=== PATIENT | male | born 1955 | race Caucasian/White ===

== ENCOUNTER → 2023-08-02 | Outpatient (CLI) | payer MEDICARE, SELFPAY ==
--- NOTE | 2023-08-02 15:25 | RAD_ITS ---
STUDY: X-RAY - CERVICAL SPINE REASON FOR EXAM: Male, 68 years old. Pain. TECHNIQUE: 3 view(s) of the cervical spine were obtained on 4 images. COMPARISON: None FINDINGS: Osteopenia. Normal anterior atlantoaxial articulation. Normal odontoid process. Reversal of the normal lordotic curve, likely positional. Diffuse moderate to marked uncovertebral and facet sclerosis. Intervertebral disc space narrowing at C4-5, C5-6, C6-7 and C7-T1. Osteophyte formation most marked at C4-5, C5-6 and C6-7. Bilateral minimal carotid calcification. Ossification of the superficial tissues of the ligamentum nuchae. RAD/Cerv Spine 2 or 3 Views IMPRESSION: Osteopenia with moderate to marked lower cervical spondylosis. Electronically Signed: Ilia Oswald MD at 12:38 EDT ,
--- NOTE | 2023-08-02 15:25 | RAD_ITS ---
STUDY: X-RAY - LUMBAR SPINE REASON FOR EXAM: Male, 68 years old. Low back pain. TECHNIQUE: 2 upright view(s) of the lumbar spine were obtained. COMPARISON: None FINDINGS: Osteopenia. Normal lumbar lordosis. No substantial scoliosis. Normal vertebral alignment. Diffuse moderate lower thoracic and lumbosacral facet sclerosis. Posterior fusion at L2-3 with intervertebral disc prosthesis and no complications. Diffuse moderate to marked intervertebral disc space narrowing with osteophyte formation. Marked vascular calcification. RAD/Lumbar Spine 2 or 3 Views IMPRESSION: Osteopenia with uncomplicated postfusion at L2-3 and diffuse moderate to marked lower thoracic and lumbosacral spondylosis. Electronically Signed: Ilia Oswald MD at 12:06 EDT ,
== END | disposition home or self-care (01) ==
PROVIDERS: Referring Provider Anesthesiology Pain Medicine; Visit Provider Anesthesiology Pain Medicine
DX: M96.1 Postlaminectomy syndrome, not elsewhere classified (principal); M47.892 Other spondylosis, cervical region
CPT/HCPCS: 72040; 72100

== ENCOUNTER 2024-01-19 12:54 | Observation (INO) | payer MEDICARE, SELFPAY ==
[2024-01-19] VITALS (9 sets, daily range): BP systolic 119–159; BP diastolic 85–101; PULSE 54–85; RESP 17–20; TEMP 36.2–36.9; O2SAT 92–99; BMI 30.4; BMI 29.7
--- NOTE | 2024-01-19 13:22 | RAD_ITS ---
STUDY: X-RAY CHEST REASON FOR EXAM: Male, 68 years old. Neuro deficit, acute, stroke suspected TECHNIQUE: Single AP portable view of the chest. COMPARISON: None. FINDINGS: EKG electrodes are seen. The lungs are clear and expanded. There is no demonstrated pleural abnormality. Sternal cerclage wires are present from a prior sternotomy. Normal mediastinum and klaia. Normal visualized pulmonary arteries. There is atherosclerotic calcification of the aortic arch with tortuosity. There are diffuse degenerative changes of the visualized thoracic spine. Normal visualized ribs, clavicles, and shoulders. There is no demonstrated abnormality of the visualized soft tissue structures of the upper abdomen. RAD/Chest 1 View IMPRESSION: No acute abnormalities. Electronically Signed: Piyush Flower MD at 14:02 EDT ,
--- NOTE | 2024-01-19 13:22 | CT_ITS ---
STUDY: CTA HEAD AND NECK WITH CONTRAST REASON FOR EXAM: Male, 68 years old. Neuro deficit, acute, stroke suspected. RADIATION DOSAGE (If Supplied By Facility): CTDIvol = ( 32.97 ) mGy, DLP = ( 1688.96 ) mGycm TECHNIQUE: CT angiography was performed with a multi-detector CT scanner. Data acquisition was obtained from the skull base through the vertex following intravenous administration of IV 100mL Isovue-370. MIP images were reconstructed from the axial data set. Post-processing of the angiographic images was performed, with multiplanar reformation and 3D reconstruction. Individualized dose optimization techniques were used for this CT. COMPARISON: No relevant priors. FINDINGS: Normal bilateral petrous carotid arteries. There is calcified plaque formation of the right cavernous carotid artery, with a mild stenosis (less than 50%). There is calcified plaque formation of the left cavernous carotid artery, with a mild stenosis (less than 50%). Normal right A1 segments of the anterior cerebral artery. Normal left A1 segments of the anterior cerebral artery. Normal intact anterior communicating artery (ACOM). Normal bilateral A2 segments of the anterior cerebral arteries. Normal right M1 and M2 segments of the middle cerebral arteries, with a normal M1 bifurcation. Normal left M1 and M2 segments of the middle cerebral arteries, with a normal M1 bifurcation. Normal right posterior communicating artery (PCOM). Normal left posterior communicating artery (PCOM). Normal bilateral vertebral arteries. Normal basilar artery with a normal basilar bifurcation. The visualized bilateral superior cerebellar (SCA) arteries are normal. Normal bilateral P1, P2 and visualized P3 segments of the posterior cerebral arteries. There is no demonstrated aneurysm of the elim ira of [place]. Mild degree of cerebral atrophy. Mild degree of decreased density in periventricular white matter bilaterally suggestive of small vessel disease. AORTIC ARCH: There is atherosclerotic calcific plaque formation of the aortic arch and great vessels arising from the aortic arch, without a hemodynamically significant stenosis. There is a normal origin of the brachiocephalic, left common carotid, and left subclavian arteries. Atherosclerotic plaque formation at the origin of the left subclavian artery and left carotid artery. RIGHT CAROTID ARTERIES: Normal right common carotid artery (CCA). Normal right common carotid bulb. There is mild atherosclerotic plaque formation of the origin of the right internal carotid artery with less than 50% cross sectional diameter stenosis. Normal visualized cervical portion of the right internal carotid artery. Normal origin of the right external carotid artery (ECA). LEFT CAROTID ARTERIES: Normal left common carotid artery (CCA). There is moderate atherosclerotic plaque formation with moderate narrowing of the carotid bulb. There is severe atherosclerotic plaque formation of the origin of the left internal carotid artery with a near complete occlusion. Normal visualized cervical portion of the left internal carotid artery. Normal origin of the left external carotid artery (ECA). VERTEBRAL ARTERIES: Nonstenotic calcified plaques throughout the left vertebral artery. CT/CTA Head AND Neck W/ Contrast IMPRESSION: High-grade stenosis at the origin of the left internal carotid artery. Less than 50% narrowing at the origin of the right internal carotid artery. Electronically Signed: Piyush Flower MD at 14:56 EDT ,
--- NOTE | 2024-01-19 13:22 | EKG12_ITS ---
Test Reason : Blood Pressure : / mmHG Vent. Rate : 070 BPM Atrial Rate : 070 BPM P-R Int : 178 ms QRS Dur : 084 ms QT Int : 374 ms P-R-T Axes : 047 033 061 degrees QTc Int : 403 ms Normal sinus rhythm Nonspecific T wave abnormality Abnormal ECG Confirmed by VINH CARPIO, ARIADNA ([id number]), associate editor ERIK KENNEDY ([id number]) on 01/20/2024 1:49:48 PM Referred By: Confirmed By:ARIADNA JUSTICE MD
--- NOTE | 2024-01-19 13:23 | EX.ED.DYSGE1 ---
HPI History of Present Illness Chief Complaint: Dizziness Informant: patient Onset/Context/Timing Onset: Days Context: Gradual Onset Timing: Intermittent Current Severity: Mild Maximum Severity: Mild Narrative Narrative: 68-year-old male history of prior low potassium and vertigo. Denies stroke or mini stroke. States that dizziness which she describes as lightheadedness, off balance at times room spinning intermittently since Wednesday. Worse with movement. Denies any headache. Mild nausea no vomiting or diarrhea. No fever. Also states the last couple weeks he has felt more short of breath than his baseline. Denies any current chest pain but at times he does have chest tightness. Prior similar symptoms: Yes Recent Illness/Hospitalization: No PFSH PFSH Medical History Hypertension Neuropathy Vertigo Coronary atherosclerosis of bypass graft Home Medications ?Medication ?Instructions ?Recorded ?Last Taken ?Type gabapentin 800 mg tablet 800 mg PO TID 01/19/24 Unknown History hydrocodone 7.5 mg-acetaminophen 1 tab PO TID PRN PRN pain 01/19/24 Unknown History 325 mg tablet Allergy/AdvReac Type Severity Reaction Status Date / Time No Known Allergies Allergy Verified 01/19/24 13:18 Social History Smoking Status: Current every day smoker tobacco type: cigarettes ROS ROS ED ROS Narrative Denies recent illness. Constitutional Constitutional ED: Denies chills or fever(s) Eyes Eyes: Denies blurry vision ENT ENT ED: Denies ear pain Cardiovascular Cardiovascular: Reports chest pain; Denies palpitations or racing heartbeat Respiratory/Chest Respiratory/Chest: Reports dyspnea and dyspnea on exertion; Denies cough Gastrointestinal Gastrointestinal: Denies abdominal pain or constipation Genitourinary Genitourinary ED: Denies dysuria or hematuria Musculoskeletal Musculoskeletal: Denies arthralgias Integumentary Denies abscess Neurologic Neurologic: Denies headache(s) Psychiatric Psychiatric: Denies anxiety Endocrine Endocrinology: Denies cold intolerance Hematologic/Lymphatic Hematologic/Lymphatic: Reports none Allergic/Immunologic Allergic/Immunologic ED: Denies mouth swelling, tongue swelling or urticaria EXAM Physical Exam Narrative Exam Narrative: Well-appearing 64-year-old male. Vital signs stable afebrile. He does not look septic toxic or in any distress. Pulse ox 95% on room air no hypoxia. H EENT exam unremarkable. TMs normal bilaterally. No wax. No facial droop. Normal speech. Tongue midline. Neck nontender. No JVD. Lungs clear to auscultation bilaterally. Heart regular rhythm rate about 85 no murmur. Chest wall and ribs nontender. Abdomen soft nontender. Moving all 4 extremities. 5 out of 5 choir member strength. Dorsi plantarflexion intact. Hallpike may be slightly increased dizziness. No facial droop. Fingertip to nose within normal limits. Back nontender. NIH score is 0. Const Vital Signs: 01/19/24 12:55 01/19/24 13:22 01/19/24 13:22 Temperature 97.1 F L Temperature Source Temporal Pulse Rate 85 71 Respiratory Rate 17 20 H Blood Pressure 128/90 H 127/94 H Blood Pressure Mean 102 105 Pulse Ox 95 94 94 Oxygen Delivery Method Room Air Room Air Room Air 01/19/24 13:52 01/19/24 14:54 Temperature Temperature Source Pulse Rate 66 60 Respiratory Rate 20 H 18 Blood Pressure 119/90 H 136/92 H Blood Pressure Mean 99 106 Pulse Ox 96 96 Oxygen Delivery Method Room Air Room Air Positive well nourished and well developed; Negative for obese, cachectic, contractures or unkempt General Appearance ED: well developed and NAD; Negative for unkempt, cachectic, contractures, diaphoretic or pallor Nutritional Appearance: Negative for cachectic or obese HEENT Reports moist mucous membranes; Denies dry mucous membranes Negative for trauma or tenderness Mouth ED: No dry mucous membranes Mouth: No dry mucous membranes Eyes PERRL and EOMs intact bilaterally General Eye ED: Negative for pale conjunctiva or scleral icterus Neck no lymphadenopathy, supple and no JVD General: Negative for tenderness Lymph Lymphatic: Negative for other Chest Wall inspection of chest normal and palpation of chest normal Resp normal respiratory effort and clear to auscultation bilaterally Effort and Inspection: Negative for retractions Auscultation: Negative for rales, rhonchi, wheezes or diminished lung sounds Cardio regular rate, regular rhythm, S1 normal heart sound, S2 normal heart sound and no murmurs Palpation: Negative for palpable S3 or palpable S4 Rate: Negative for bradycardia or tachycardic Rhythm: Negative for abnormal rhythm GI normal to inspection, nondistended, normoactive bowel sounds, non-tender, non-distended and no masses Inspection: Negative for abdominal distention Palpation: soft; Negative for tender, guarding, mass or rebound tenderness present Back/Spine no CVA tenderness General Back: Negative for CVA tenderness Cervical Spine: Negative for cervical spine tenderness Thoracic Spine / Upper Back: Negative for thoracic spinal tenderness or paraspinal muscle tenderness Lumbar Spine / Lower Back: Negative for lumbar spinal tenderness Extremity normal to inspection General Extremety ED: Negative for edema, tenderness or other findings General Extremity: Negative for edema or other findings Neuro oriented x3 and CN's II-XII intact bilaterally Neuro Narrative: NIH score is 0. Hallpike may be slightly increased dizziness. No nystagmus. Sensorium / Orientation: alert; Negative for orientation impaired, lethargic or stuporous Motor Exam: strength 5/5 throughout Psych mental status grossly normal Appearance: Negative for unkempt Attitude: No agitated Mood & Affect: Negative for depressed, anxious or tearful Skin no rashes or lesions noted, no wounds and skin turgor normal General Skin Exam: elasticity normal; Negative for jaundice or pallor Lesions: No lesion noted Rashes: No rashes noted Trauma: Negative for abrasion Wounds: Negative for wounds noted MDM MDM MDM Narrative Medical decision making narrative: Patient states he has been having dizziness for 4 days he describes it as off-balance, lightheaded and at times room spinning. He has a normal neurologic exam. He is also had some recent exertional dyspnea and chest tightness. He will undergo a neurologic and stroke workup. Repeat exam unchanged. Given the patient's history and his dizziness that I really not sure if it is neurologic or not. He does not really have a impressive exam for vertigo. He has a high-grade left carotid stenosis on CTA which I discussed with the radiologist. I will speak to the hospitalist about admission and further evaluation. History & Record Review Discussion w/independent historian: Patient Lab Data Attestation: I reviewed the patient's lab results. Lab results narrative: CBC normal. White count 7. H&H 16 and 46. Platelets 241. PT, INR and PTT are normal at 13, 1 and 28. Electrolytes show gap of 2. Normal BUN of 16 and creatinine of 1.1. Glucose 105. Troponin 7. Chest x-ray chronic changes. EKG sinus rhythm of 70. Labs: Laboratory Results - last 24 hr 01/19/24 01/19/24 13:36 13:40 WBC 7.1 RBC 5.07 Hgb 16.3 Hct 46.7 MCV 92.1 MCH 32.1 H MCHC 34.9 RDW Std Deviation 44.4 H RDW Coeff of [place] 13.2 Plt Count 241 MPV 10.8 Immature Gran % (Auto) 0.400 Neut % (Auto) 62.5 Lymph % (Auto) 27.0 [place] % (Auto) 6.4 Eos % (Auto) 3.3 Baso % (Auto) 0.4 Absolute Neuts (auto) 4.4 Absolute Lymphs (auto) 1.91 Nucleated RBC % 0 PT 13.2 INR 1.0 APTT 28.2 Sodium 141 Potassium 3.8 Chloride 109 H Carbon Dioxide 30.0 Anion Gap 2 L BUN 16 Creatinine 1.13 Estim Creat Clear Calc 79.38 Est GFR (MDRD) Af Amer 83 Est GFR (MDRD) Non-Af 69 BUN/Creatinine Ratio 14.2 Glucose 105 Calcium 9.4 Troponin I High Sens 7 POC Glucose 111 H Radiography Chest X-Ray - ED: 1 View, Read by ED Physician, Read by Radiologist, Normal, Heart, Lungs, Mediastinum, Bony Structures, No Acute Disease and Chronic Changes Diagnostic Testing: Clinical Impression(s) from Imaging Studies Chest X-Ray 01/19/24 13:22 IMPRESSION: No acute abnormalities. Electronically Signed: Piyush Flower MD at 14:02 EDT , Head/Neck CTA 01/19/24 13:22 IMPRESSION: High-grade stenosis at the origin of the left internal carotid artery. Less than 50% narrowing at the origin of the right internal carotid artery. Electronically Signed: Piyush Flower MD at 14:56 EDT , Chest x-ray, portable, single view interpreted both by myself and the radiologist shows no acute abnormality. Normal cardiac silhouette. Rhythm Strip Rhythm Strip: Sinus Rhythm Rate: 70 Ectopy: None EKG Initial EKG: Attestation: I personally reviewed and interpreted this EKG as follows: Interpretation: Sinus Rhythm and No Acute Injury Pattern Comments: Normal sinus rhythm rate of 70 no acute signs of [place], ischemia or dysrhythmia. Discharge Plan Triage Chief Complaint: Dizziness ED Provider: Darren Bahena Dx/Rx/DC Orders Clinical Impression: Dizziness, Carotid arterial disease, History of coronary artery bypass graft x 2 Prescriptions: No Action gabapentin 800 mg tablet 800 mg PO TID hydrocodone-acetaminophen 7.5-325 mg tablet 1 tab PO TID PRN PRN (Reason: pain) Primary Care Provider: RICK CARBALLO Referrals: RICK CARBALLO [Other] Print Language: Thai Disposition Disposition: Acute Care Hospital [facility]
[2024-01-19 13:59] LABS: Bedside Glucose 111 mg/dL (74-106)
[2024-01-19 14:10] LABS: Absolute Lymphocyte Count 1.91 X10^3/uL (0.83-4.51); Absolute Neutrophil Count 4.4 X10^3/uL (2.0-7.7); Basophil# 0.03 X10^3/uL; Basophil% 0.4 % (0-1); Eosinophil# 0.23 X10^3/uL; Eosinophils% 3.3 % (0-5); Hematocrit 46.7 % (40-54); Hemoglobin 16.3 g/dL (13.0-16.5); Lymphocyte # 1.91 X10^3/ul (0.83-4.51); Mean Corp Hgb Conc 34.9 g/dL (32-36); Mean Corpuscular Hgb 32.1 pg (27.0-32.0); Mean Corpuscular Volume 92.1 fL (80-94); Mean Platelet Vol. 10.8 fl (6.2-12.0); Monocyte# 0.45 X10^3/uL; Monocyte% 6.4 % (0-10); NRBC Flagged by Analyzer 0 % (0-5); Neutrophil # 4.42 X10^3/uL (2.7-7.7); Neutrophil % 62.5 % (47-70); Platelet Count 241 K/mm3 (150-450); RBC Distribution Width CV 13.2 % (11.6-14.6); RBC Distribution Width SD 44.4 fl (35.1-43.9); Red Blood Count 5.07 M/mm3 (4.6-6.2); White Blood Count 7.1 K/mm3 (4.4-11.0)
[2024-01-19 14:17] LABS: Anion Gap 2 (5-15); BUN 16 mg/dL (7-18); BUN/Creat Ratio 14.2 RATIO (10-20); Calcium,Total 9.4 mg/dL (8.5-10.1); Chloride 109 mmol/L (98-107); Creatinine, Serum 1.13 mg/dL (0.70-1.30); EST Glomerular Filtration Rate 69 mL/min (>60); Est Glom Filt Rate - Afr Amer 83 mL/min (>60); Estimated Creatinine Clearance 79.38 ml/min; Glucose 105 mg/dL (74-106); Potassium 3.8 mmol/L (3.5-5.1); Sodium Level 141 mmol/L (136-145); Troponin-I HS 7 pg/mL (3.0-78.0)
[2024-01-19 14:26] LABS: Prothrombin Time (Protime)PT. 13.2 SECONDS (11.7-14.9)
[2024-01-19 14:27] LABS: Partial Thromboplast Time 28.2 Seconds (24.1-36.2)
[2024-01-19] MEDS: HYDROcodone Bitartrate/Apap 5/325 Tablet PO (14:55)
[2024-01-19] MEDS: Gabapentin 800 MG Tablet PO ×2 (14:56→21:01)
--- NOTE | 2024-01-19 15:15 | HP.PCM.HOS_ITS ---
HPI - General General Date of Admission: 01/19/24 Date of Service: 01/19/24 Chief Complaint: dizziness HPI Narrative MARYSE MAK, is a 68 M with a PMH as outlined who presents via the ED on 01/19/2024 with a complaint of dizziness which had been going on for about 3 days prior to admission. The dizziness was worsening, and he felt off balance and worsened with movement. He denied any headache, ringing in ears, blurred vision, palpitations, nausea or vomiting. He denied any focal weakness or numbness or tingling. Review of systems otherwise negative. Vitals in the ED were blood pressure 136/92, pulse rate of 60, respiratory rate of 18 and oxygen saturation of 96% on room air. CBC was unremarkable. INR was 1. Chemistry was also largely unremarkable. Chest x-ray showed no acute cardiopulmonary pathology. CT of the brain showed no acute intracranial pathology and CTA of the head and neck showed severe atherosclerotic plaque formation at the origin of the left internal carotid artery with near complete occlusion and less than 50% stable at the origin of the right internal carotid artery. He is being admitted to be managed for dizziness and vertigo in the setting of severe carotid stenosis, to rule out a stroke. [facility] Medical History Hypertension Neuropathy Vertigo Coronary atherosclerosis of bypass graft Home Medications ?Medication ?Instructions ?Recorded ?Last Taken ?Type aspirin 81 mg tablet,delayed 81 mg PO DAILY 01/19/24 01/19/24 History release [id number] 5 ml PO 4X/DAY PRN PRN cough 01/19/24 Unknown History 2 mg-30 mg-10 mg/5 mL oral syrup gabapentin 800 mg tablet 800 mg PO TID 01/19/24 01/19/24 History hydrocodone 7.5 mg-acetaminophen 1 tab PO TID PRN PRN pain 01/19/24 01/19/24 History 325 mg tablet Allergy/AdvReac Type Severity Reaction Status Date / Time No Known Allergies Allergy Verified 01/19/24 13:18 Social History Smoking Status: Current every day smoker tobacco type: cigarettes ROS Constitutional Constitutional: Denies anorexia, change in weight, chills, fatigue, fever(s), malaise, night sweats or weakness Eyes Eyes: Denies change in vision, double vision or loss of vision ENT HEENT: Denies dysphagia or headache(s) Cardiovascular Cardiovascular: Reports lightheadedness; Denies chest pain, dyspnea on exertion, edema, orthopnea, palpitations, paroxysmal nocturnal dyspnea, rapid heart rate or syncope Respiratory/Chest Respiratory/Chest: Denies cough, dyspnea, shortness of breath at rest, shortness of breath with exertion or wheezing Gastrointestinal Gastrointestinal: Denies constipation, diarrhea, nausea or vomiting Genitourinary Genitourinary: Denies burning urination, dysuria or nocturia Musculoskeletal Musculoskeletal: Denies arthralgias or joint pain Neurologic Neurologic: Reports dizziness; Denies confusion, disequilibrium, focal weakness, headache(s), numbness, paresthesias, seizure-like activity, seizures, syncope or tingling Psychiatric Psychiatric: Denies anxiety or depression Endocrine Endocrinology: Denies change in body appearance Vital Signs Vital Signs Vital Signs: 01/19/24 12:55 01/19/24 13:22 01/19/24 13:22 Temperature 97.1 F L Temperature Source Temporal Pulse Rate 85 71 Respiratory Rate 17 20 H Blood Pressure 128/90 H 127/94 H Blood Pressure Mean 102 105 Pulse Ox 95 94 94 Oxygen Delivery Method Room Air Room Air Room Air 01/19/24 13:52 01/19/24 14:54 Temperature Temperature Source Pulse Rate 66 60 Respiratory Rate 20 H 18 Blood Pressure 119/90 H 136/92 H Blood Pressure Mean 99 106 Pulse Ox 96 96 Oxygen Delivery Method Room Air Room Air Weight Weight: 224 lb 6.889 oz Body Mass Index (BMI) 30.4 Physical Exam Const alert, oriented x3 and no apparent distress General Appearance: cooperative HEENT normocephalic, head/scalp atraumatic, hearing grossly normal bilaterally, moist oral mucous membranes and oropharynx normal Mouth: oral and palatal mucosa normal Eyes PERRL, EOMs intact bilaterally and conjunctivae normal Neck no lymphadenopathy and supple Resp normal respiratory effort, no retractions, no use of accessory muscles and clear to auscultation bilaterally Cardio regular rate, regular rhythm, S1 normal heart sound, S2 normal heart sound and no murmurs GI normal to inspection, nondistended, normoactive bowel sounds, soft to palpation and non-tender Extremity normal to inspection, full ROM and no clubbing, cyanosis or edema Neuro oriented x3, CN's II-XII intact bilaterally, moves all extremities and no focal motor deficits Sensorium / Orientation: awake and alert Motor Exam: strength 5/5 throughout Psych affect normal Results Lab / Micro Data 01/19/24 13:36 01/19/24 13:36 Labs: Laboratory Results - last 24 hr 01/19/24 13:36: WBC 7.1, RBC 5.07, Hgb 16.3, Hct 46.7, MCV 92.1, MCH 32.1 H, MCHC 34.9, RDW Std Deviation 44.4 H, RDW Coeff of [place] 13.2, Plt Count 241, MPV 10.8, Immature Gran % (Auto) 0.400, Neut % (Auto) 62.5, Lymph % (Auto) 27.0, [place] % (Auto) 6.4, Eos % (Auto) 3.3, Baso % (Auto) 0.4, Absolute Neuts (auto) 4.4, Absolute Lymphs (auto) 1.91, Nucleated RBC % 0, PT 13.2, INR 1.0, APTT 28.2, Sodium 141, Potassium 3.8, Chloride 109 H, Carbon Dioxide 30.0, Anion Gap 2 L, BUN 16, Creatinine 1.13, Estim Creat Clear Calc 79.38, Est GFR (MDRD) Af Amer 83, Est GFR (MDRD) Non-Af 69, BUN/Creatinine Ratio 14.2, Glucose 105, Calcium 9.4, Troponin I High Sens 7 01/19/24 13:40: POC Glucose 111 H Rhythm Strip Rhythm Strip: Sinus Rhythm Rate: 70 Ectopy: None Imaging Radiology Impression Chest X-Ray 01/19/24 13:22 IMPRESSION: No acute abnormalities. Electronically Signed: Piyush Flower MD at 14:02 EDT , Head/Neck CTA 01/19/24 13:22 IMPRESSION: High-grade stenosis at the origin of the left internal carotid artery. Less than 50% narrowing at the origin of the right internal carotid artery. Electronically Signed: Piyush Flower MD at 14:56 EDT , Assessment & Plan Assessment/Plan (1) Dizziness: PLAN: Plan #Dizziness and vertigo * The symptoms are concerning for stroke. His dizziness has been going on for about 3 days prior to admission. It is worsened with movement so BPPV is also consideration. * Imaging done of the carotid however showed severe atherosclerotic plaque formation at the origin of the left internal carotid artery with near complete occlusions with this could be the etiology of his dizziness and vertigo. * Admit to PCU under observation. * CTA of the head and neck as above. Will order MRI of the brain * Order 2D echo. Order carotid ultrasound and get vascular surgery consult * Check lipid panel and A1c. Based on MRI findings we will consider starting aspirin and high intensity statin. * Fall precautions. PT OT consult. * Allow for permissive hypertension if blood pressure is elevated in setting of stroke. * #History of CAD s/p CABG x 2: * This was about 3 to 4 years ago. * Patient states he is taking himself off all his medications because he feels like he is not doing anything for him. * It is documented that he is on aspirin so we will continue aspirin. 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 * #Elevated blood pressure: * Blood pressure elevated in the 140s and 150s systolic. * Not a known hypertensive but then again he stated that he has taken himself off of all his medications for some years now so is not known if he was taking blood pressure medications. * Allow for permissive hypertension in light of concerns for stroke. IV labetalol as needed * Start oral BP medications if blood pressure still remains elevated after stroke is ruled in or out with MRI results * #DVT prophylaxis: Lovenox CODE STATUS: Full code * Patient counseled extensively about different types of CODE STATUS including full code, DNR CCA and DNR CCA. * Patient elects to be full code. * Total jeso-sd-caps time 17 minutes. # Charges/Coding Visit Charges Inpatient E&M: 91393 Init Hosp L2 Procedures Hospitalists Procedures: 65338 Advncd Care Plan 30 Min
--- NOTE | 2024-01-19 15:17 | ED.RN ---
NIH SCORING WAS DONE UPON INITIAL ORDERS. DR MONTOYA GAVE VERBAL ORDER TO DISCONTINUE THE STROKE PROTOCOLS. NIH WAS SCORING 1 AND THAT WAS D/T SOME CHROIC WEAKNESS/PAIN ON THE RLE, HE HAD SOME TROUBLE KEEPING THE RLE ELEVATED.
--- NOTE | 2024-01-19 15:32 | ED.RN ---
GOING OVER MED REC WITH PT PRIOR TO ADMISSION, HE STATES HE DOES NOT LIKE TAKING PILLS AND HAS NOT BEEN TAKING MEDICATIONS HE WAS PRESCRIBED FOR CHOLESTEROL AND BLOOD PRESSURE. I ADVISED PT HE NEEDS TO FURTHER SPEAK WITH HIS PCP ABOUT TAKING AND OR STOPPING ANY MEDICATIONS.
--- NOTE | 2024-01-19 16:49 | MRI_ITS ---
EXAM: MR HEAD WITHOUT INTRAVENOUS CONTRAST CLINICAL INDICATION: dizziness, vertigo, compare to CT TECHNIQUE: Multiplanar and multisequence MR images of the brain were obtained without intravenous contrast. COMPARISON: CTA head and neck on the same date. FINDINGS: BRAIN AND EXTRA-AXIAL SPACES: Chronic right cerebellar infarct. No restricted diffusion to indicate recent infarct or other pathology. Scattered foci of subcortical and periventricular T2 and T2 FLAIR hyperintensity are nonspecific although most commonly due to chronic microvascular ischemic changes in a patient of this age. No hydrocephalus. Patent basal cisterns. No acute intracranial hemorrhage or pathologic extra-axial fluid. No intracranial mass or mass effect. SELLA: No significant abnormality. Normal sella turcica, pituitary gland, infundibular stalk, optic chiasm and hypothalamus. AUDITORY SYSTEM: No significant abnormality. The internal auditory canals are patent. BONES/JOINTS: No significant abnormality. No discrete lytic or blastic abnormalities. SINUSES: Normal as visualized. Clear. MASTOID AIR CELLS: Normal as visualized. Clear. ORBITS: Normal as visualized. Both globes, extraocular muscles, optic nerves and retrobulbar fat appear unremarkable. VASCULATURE: Normal as visualized. Normal flow voids in the major intracranial circulation. MRI/Brain without Contrast IMPRESSION: No acute findings in the head/brain. Evidence of chronic microvascular ischemic changes. Electronically Signed: Aayush Jorge DO at 20:30 EDT ,
--- NOTE | 2024-01-19 16:49 | CDU_ITS ---
Reason For Study: LICA STENOSIS (by CT) Rt. Velocities/BP Lt. Velocities/BP Prox CCA 60.1/14.7 cm/sec. Prox CCA 63.6/15.6 cm/sec. Mid CCA 61.0/18.5 cm/sec. Mid CCA 56.6/17.4 cm/sec. Dist CCA 49.7/18.5 cm/sec. Dist CCA 43.5/11.3 cm/sec. Prox ICA 38.9/13.6 cm/sec. Prox ICA 64.1/23.6 cm/sec. Mid ICA 40.3/18.2 cm/sec. Mid ICA 155.6/70.0 cm/sec. Dist ICA 66.6/32.5 cm/sec. Dist ICA 109.5/43.7 cm/sec. Rt. ICA/CCA = 66.6/61.0=1.1. Lt. ICA/CCA = 155.6/56.6=2.75. Prox ECA 64.8/9.1 cm/sec. ECA velocity inadvertently not taken. Rt. Vert. 21.3/8.5 cm/sec. Lt. Vert. 42.8/19.7 cm/sec. Right Extracranial There is homogeneous, smooth atherosclerotic plaque noted in the right common carotid artery. There is heterogeneous, smooth atherosclerotic plaque noted in the right internal carotid artery. There is heterogeneous, irregular atherosclerotic plaque noted in the right external carotid artery. Antegrade flow is noted in the right vertebral artery. Left Extracranial There is homogeneous, smooth atherosclerotic plaque noted in the left common carotid artery. There is heterogeneous, irregular atherosclerotic plaque noted in the left internal carotid artery. There is heterogeneous, irregular atherosclerotic plaque noted in the left external carotid artery. Antegrade flow is noted in the left vertebral artery. There is heterogeneous, irregular atherosclerotic plaque noted in the left bulb. Procedure Carotid Duplex 21821. This is a Carotid Duplex examination using B-mode, color flow and specral Doppler. The study was technically difficult. PT unable to lie still due to back pain. LT CCA, ECA, ICA assessed with PT in right lateral decubitus position. Exam performed portable in patient room. VL/Carotid Duplex Ultrasound Interpretation Summary Mild (<50%) stenosis right extracranial internal carotid. Moderate (50-69%) stenosis left extracranial internal carotid. Patent and antegrade vertebrals bilaterally. Ordering Physician: Dhara Herr Referring Physician: OTD Performed By: Keisha Hinojosa RDCS, RVT
--- NOTE | 2024-01-19 16:49 | ECHOD_ITS ---
Reason For Study: TIA/CVA Procedure This was a 2D Doppler, Color Flow transthoracic echocardiogram. Exam performed portable in patient room. Left Ventricle Normal LV size. Left ventricular systolic function is normal. The left ventricular ejection fraction is 65 %. Stage 1 diastolic dysfunction. No regional wall motion abnormalities noted. Right Ventricle Normal RV size. Normal systolic function. Atria Normal left atrium. Normal right atrium. Bubble contrast study negative for right to left interatrial shunt. Mitral Valve Normal mitral valve. Tricuspid Valve Normal tricuspid valve. Mild (1+) tricuspid valve insufficiency. Pulmonary artery systolic pressure is 33 mmHg. Aortic Valve Trisinus/trileaflet aortic valve. Mild diffuse aortic valve thickening. Pulmonic Valve Normal pulmonic valve. Great Vessels Normal aortic root. The pulmonary artery is normal size. Normal inferior vena cava. Pericardium/Pleural No pericardial effusion. Medication Performed a rapid injection of agitated mix of 9 cc saline and 1cc air to assess for atrial septal defect. MMode/2D Measurements & Calculations LVIDd: 4.4 cm IVSd: 1.3 cm Ao root diam: 3.3 cm LVIDs: 2.8 cm LVPWd: 1.1 cm RVDd: 3.9 cm FS: 35.2 % LAV(MOD-bp): 53.4 ml LVAd ap4: 26.7 cm2 SV(MOD-sp4): 46.7 ml LAV(MOD-bp) Indexed: 24.1 ml/m2 LVLd ap4: 8.3 cm LAV(MOD-sp2): 53.2 ml EDV(MOD-sp4): 72.7 ml LAV(MOD-sp4): 48.3 ml EDV(sp4-el): 73.1 ml LVAs ap4: 14.2 cm2 LVLs ap4: 6.9 cm ESV(MOD-sp4): 26.0 ml ESV(sp4-el): 24.9 ml EF(MOD-sp4): 64.2 % EF(sp4-el): 65.9 % SV(sp4-el): 48.2 ml LA A4 area: 19.1 cm2 LA dimension(2D): 3.5 cm RA A4 area: 20.1 cm2 TAPSE: 1.9 cm Time Measurements MV dec time: 0.28 sec Doppler Measurements & Calculations MV E max brady: 68.5 cm/sec Lat Peak E' Brady: 13.3 cm/sec Med Peak E' Brady: 8.7 cm/sec MV A max brady: 80.2 cm/sec E/E' lat: 5.1 E/E' med: 7.8 MV E/A: 0.85 Ao V2 max: 190.7 cm/sec LV V1 max: 120.7 cm/sec PA V2 max: 99.9 cm/sec Ao max P.5 mmHg LV V1 max P.8 mmHg TR max brady: 265.9 cm/sec TR max P.3 mmHg ECHO/Echo Complete Interpretation Summary Normal LV size. Left ventricular systolic function is normal. The left ventricular ejection fraction is 65 %. Stage 1 diastolic dysfunction. Bubble contrast study negative for right to left interatrial shunt. Ordering Physician: Dhara Herr Performed By: Sade Crowell RDCS
[2024-01-19] MEDS: oxyCODONE 5 MG Tablet PO (21:01)
[2024-01-20 03:50] VITALS: BP 97/65; PULSE 52; RESP 18; TEMP 36.2; O2SAT 93
[2024-01-20] MEDS: Gabapentin 800 MG Tablet PO ×2 (05:50→13:17)
[2024-01-20 07:21] LABS: Absolute Lymphocyte Count 1.54 X10^3/uL (0.83-4.51); Absolute Neutrophil Count 3.9 X10^3/uL (2.0-7.7); Basophil# 0.04 X10^3/uL; Basophil% 0.6 % (0-1); Eosinophil# 0.26 X10^3/uL; Eosinophils% 4.1 % (0-5); Hematocrit 46.3 % (40-54); Hemoglobin 15.2 g/dL (13.0-16.5); Lymphocyte # 1.54 X10^3/ul (0.83-4.51); Lymphocyte % 24.4 % (19-41); Mean Corp Hgb Conc 32.8 g/dL (32-36); Mean Corpuscular Hgb 30.4 pg (27.0-32.0); Mean Corpuscular Volume 92.6 fL (80-94); Mean Platelet Vol. 10.3 fl (6.2-12.0); Monocyte# 0.49 X10^3/uL; Monocyte% 7.8 % (0-10); NRBC Flagged by Analyzer 0 % (0-5); Neutrophil # 3.94 X10^3/uL (2.7-7.7); Neutrophil % 62.3 % (47-70); Platelet Count 202 K/mm3 (150-450); RBC Distribution Width CV 13.1 % (11.6-14.6); RBC Distribution Width SD 43.8 fl (35.1-43.9); White Blood Count 6.3 K/mm3 (4.4-11.0)
[2024-01-20 07:59] LABS: Anion Gap 3 (5-15); BUN 13 mg/dL (7-18); BUN/Creat Ratio 12.5 RATIO (10-20); Calcium,Total 8.8 mg/dL (8.5-10.1); Chloride 110 mmol/L (98-107); Cholesterol 187 mg/dL (200); Creatinine, Serum 1.04 mg/dL (0.70-1.30); EST Glomerular Filtration Rate 76 mL/min (>60); Est Glom Filt Rate - Afr Amer 92 mL/min (>60); Estimated Creatinine Clearance 85.42 ml/min; Glucose 115 mg/dL (74-106); High Density Lipoprotein 33 mg/dL; Potassium 4.2 mmol/L (3.5-5.1); Sodium Level 141 mmol/L (136-145); Triglycerides 270 mg/dL; Very Low Density Lipoprotein 54 mg/dL (5-40)
[2024-01-20 08:27] VITALS: O2SAT 93
[2024-01-20 08:33] VITALS: BP 129/102; PULSE 65; RESP 16; TEMP 36.4; O2SAT 99
[2024-01-20] MEDS: Acetaminophen 325 MG Tablet 650 MG PO (08:41)
[2024-01-20] MEDS: Enoxaparin 40 MG/0.4 ML Syringe SC (08:41)
[2024-01-20] MEDS: oxyCODONE 5 MG Tablet PO ×2 (08:42→13:20)
--- NOTE | 2024-01-20 10:10 | CON.PCM.NE_ITS ---
Assessment and Plan: Neuro Assessment/Plan MARYSE MAK is a 68 M with a past medical history of hypertension, chronic smoking being evaluated by Teleneurology for episode of off balance, lightheadedness and chronic intermittent vertiginous symptoms happened 3 days ago, resolved now on my evaluation. CTA of the head and neck showed severe atherosclerotic plaque formation at the origin of the left internal carotid artery with near complete occlusion and less than 50% stable at the origin of the right internal carotid artery. MRI brain negative. Episodes of lightheadedness with resultant off balance could be related to severe atherosclerotic disease and needs further investigation Diagnosis: severe atherosclerotic disease Plan: Carotid US , Vascular surgery consult. Continue with Aspirin, start atorvastatin 20 mg with LDL goal less than 70 . BP goal less than 130/80 , A1C less than 6.5. Follow up with neurology clinic in 6 weeks I personally attended this patient and spent a total time of 40 minutes evaluating this patient including clinical assessment, review of chart, medical history imaging, and determining appropriate treatment and workup. Keya Noguera MD [facility], Tele neurology Department HPI Consult Data Date of Consult: 01/20/24 HPI Narrative HPI Narrative: MARYSE MAK, is a 68 M who presents with a complaint of dizziness which had been going on for about 3 days prior to admission. He have history of intermittent episodes of vertiginous symptoms, light headedness however his symptoms were severe this time . He denies nausea, vomiting, flu like illness ,focal weakens ,headache . Vitals in the ED were blood pressure 136/92, pulse rate of 60, respiratory rate of 18 and oxygen saturation of 96% on room air. CBC was unremarkable. INR was 1. Chemistry was also largely unremarkable. Chest x-ray showed no acute cardiopulmonary pathology. CT of the brain showed no acute intracranial pathology and CTA of the head and neck showed severe atherosclerotic plaque formation at the origin of the left internal carotid artery with near complete occlusion and less than 50% stable at the origin of the right internal carotid artery. He is being admitted to be managed for dizziness and vertigo in the setting of severe carotid stenosis, to rule out a stroke. On my evaluation, he feels much better today and wants to go home. No focal neurological deficits noted. [facility] Medical History Hypertension Neuropathy Vertigo Coronary atherosclerosis of bypass graft Home Medications ?Medication ?Instructions ?Recorded ?Last Taken ?Type aspirin 81 mg tablet,delayed 81 mg PO DAILY 01/19/24 01/19/24 History release [id number] 5 ml PO 4X/DAY PRN PRN cough 01/19/24 Unknown History 2 mg-30 mg-10 mg/5 mL oral syrup gabapentin 800 mg tablet 800 mg PO TID 01/19/24 01/19/24 History hydrocodone 7.5 mg-acetaminophen 1 tab PO TID PRN PRN pain 01/19/24 01/19/24 History 325 mg tablet Allergy/AdvReac Type Severity Reaction Status Date / Time No Known Allergies Allergy Verified 01/19/24 13:18 Social History Smoking Status: Current every day smoker tobacco type: cigarettes Vital Signs Vital Signs Vital Signs: 01/19/24 12:55 01/19/24 13:22 01/19/24 13:22 Temperature 97.1 F L Temperature Source Temporal Pulse Rate 85 71 Pulse Rate [Lying] Pulse Rate [Sitting (for 1 minute prior to obtaining)] Pulse Rate [Standing (for 1 minute prior to obtaining)] Pulse Strength Respiratory Rate 17 20 H Respiratory Effort Respiratory Depth Respiratory Pattern Blood Pressure 128/90 H 127/94 H Blood Pressure [Lying] Blood Pressure [Sitting (for 1 minute prior to obtaining)] Blood Pressure [Standing (for 1 minute prior to obtaining)] Blood Pressure Mean 102 105 Blood Pressure Mean [Lying] Blood Pressure Mean [Sitting (for 1 minute prior to obtaining)] Blood Pressure Mean [Standing (for 1 minute prior to obtaining)] Blood Pressure Source Blood Pressure Position Blood Pressure Location Pulse Ox 95 94 94 Oxygen Delivery Method Room Air Room Air Room Air 01/19/24 13:52 01/19/24 14:54 01/19/24 16:00 Temperature Temperature Source Pulse Rate 66 60 60 Pulse Rate [Lying] Pulse Rate [Sitting (for 1 minute prior to obtaining)] Pulse Rate [Standing (for 1 minute prior to obtaining)] Pulse Strength Respiratory Rate 20 H 18 19 H Respiratory Effort Respiratory Depth Respiratory Pattern Blood Pressure 119/90 H 136/92 H 133/87 H Blood Pressure [Lying] Blood Pressure [Sitting (for 1 minute prior to obtaining)] Blood Pressure [Standing (for 1 minute prior to obtaining)] Blood Pressure Mean 99 106 102 Blood Pressure Mean [Lying] Blood Pressure Mean [Sitting (for 1 minute prior to obtaining)] Blood Pressure Mean [Standing (for 1 minute prior to obtaining)] Blood Pressure Source Blood Pressure Position Blood Pressure Location Pulse Ox 96 96 92 Oxygen Delivery Method Room Air Room Air Room Air 01/19/24 16:49 01/19/24 16:55 01/19/24 17:24 Temperature 98.5 F 97.7 F L Temperature Source Temporal Pulse Rate 61 56 L Pulse Rate [Lying] 54 L Pulse Rate [Sitting (for 1 minute prior to obtaining)] 59 L Pulse Rate [Standing (for 1 minute prior to obtaining)] 63 Pulse Strength Respiratory Rate 20 H 18 Respiratory Effort Respiratory Depth Respiratory Pattern Blood Pressure 159/89 H 129/101 H Blood Pressure [Lying] 148/87 H Blood Pressure [Sitting (for 1 minute prior to obtaining)] 150/94 H Blood Pressure [Standing (for 1 minute prior to obtaining)] 154/86 H Blood Pressure Mean 112 110 Blood Pressure Mean [Lying] 107 Blood Pressure Mean [Sitting (for 1 minute prior to obtaining)] 112 Blood Pressure Mean [Standing (for 1 minute prior to obtaining)] 108 Blood Pressure Source Monitor Blood Pressure Position Semi-Fowlers Blood Pressure Location Right Arm Pulse Ox 95 99 Oxygen Delivery Method Room Air 01/19/24 18:11 01/19/24 20:53 01/19/24 22:00 Temperature 97.4 F L Temperature Source Temporal Pulse Rate 79 Pulse Rate [Lying] Pulse Rate [Sitting (for 1 minute prior to obtaining)] Pulse Rate [Standing (for 1 minute prior to obtaining)] Pulse Strength Normal (2+) Respiratory Rate 18 Respiratory Effort Normal Respiratory Depth Normal Respiratory Pattern Normal Blood Pressure 129/85 H Blood Pressure [Lying] Blood Pressure [Sitting (for 1 minute prior to obtaining)] Blood Pressure [Standing (for 1 minute prior to obtaining)] Blood Pressure Mean 99 Blood Pressure Mean [Lying] Blood Pressure Mean [Sitting (for 1 minute prior to obtaining)] Blood Pressure Mean [Standing (for 1 minute prior to obtaining)] Blood Pressure Source Monitor Blood Pressure Position Semi-Fowlers Blood Pressure Location Right Arm Pulse Ox 96 Oxygen Delivery Method Room Air 01/20/24 03:50 01/20/24 08:27 01/20/24 08:33 Temperature 97.2 F L 97.6 F L Temperature Source Temporal Oral Pulse Rate 52 L 65 Pulse Rate [Lying] Pulse Rate [Sitting (for 1 minute prior to obtaining)] Pulse Rate [Standing (for 1 minute prior to obtaining)] Pulse Strength Respiratory Rate 18 16 Respiratory Effort Respiratory Depth Respiratory Pattern Blood Pressure 97/65 129/102 H Blood Pressure [Lying] Blood Pressure [Sitting (for 1 minute prior to obtaining)] Blood Pressure [Standing (for 1 minute prior to obtaining)] Blood Pressure Mean 75 111 Blood Pressure Mean [Lying] Blood Pressure Mean [Sitting (for 1 minute prior to obtaining)] Blood Pressure Mean [Standing (for 1 minute prior to obtaining)] Blood Pressure Source Manual Monitor Blood Pressure Position Semi-Fowlers Semi-Fowlers Blood Pressure Location Right Arm Left Arm Pulse Ox 93 93 99 Oxygen Delivery Method Room Air Room Air Room Air 01/20/24 08:44 01/20/24 08:44 Temperature Temperature Source Pulse Rate Pulse Rate [Lying] Pulse Rate [Sitting (for 1 minute prior to obtaining)] Pulse Rate [Standing (for 1 minute prior to obtaining)] Pulse Strength Normal (2+) Respiratory Rate Respiratory Effort Normal Non-Labored Respiratory Depth Normal Respiratory Pattern Normal Blood Pressure Blood Pressure [Lying] Blood Pressure [Sitting (for 1 minute prior to obtaining)] Blood Pressure [Standing (for 1 minute prior to obtaining)] Blood Pressure Mean Blood Pressure Mean [Lying] Blood Pressure Mean [Sitting (for 1 minute prior to obtaining)] Blood Pressure Mean [Standing (for 1 minute prior to obtaining)] Blood Pressure Source Blood Pressure Position Blood Pressure Location Pulse Ox Oxygen Delivery Method Room Air Weight Weight: 99.7 kg Body Mass Index (BMI) 29.7 NIHSS NIHSS Nursing Documentation NIHSS Nursing Documentation: NIHSS: Ischemic Stroke/TIA Start: 01/19/24 16:49 Text: For PCU Patients: NIH and Neuro Check every 4 Status: Complete hours, PRN and with change in RN caregiver. Freq: [id number] Protocol: Activity Type Activity Date Activity User E-sign Co-sign Detail Recorded Client Recorded Date Recorded By Document 01/19/24 20:55 MB desktop 01/19/24 21:00 MB 01/19/24 20:55 NIH Stroke Scale [NIHSS] A score of 0 is normal or asymptomatic . Total possible score is 42. Inpatient: RN or Physician to activate a stroke alert for onset of new stroke symptoms or with NIHSS increase >/= 3 points. Following change in neurological status, NIHSS will be performed per physician order or more frequently PRN. -1a. Level of Consciousness Alert; keenly responsive -1b. LOC Questions Answers BOTH questions correctly. -1c. LOC Commands Performs both tasks correctly . -2. Best Gaze Normal -3. Visual No visual loss -4. Facial Palsy Normal symmetrical movements -5a. Left Arm No drift; arm holds 90 (or 45 ) degrees for full 10 seconds -5b. Right Arm No drift; arm holds 90 (or 45 ) degrees for full 10 seconds -6a. Left Leg No drift; leg holds 30-degree position for full 5 seconds -6b. Right Leg No drift; leg holds 30-degree position for full 5 seconds -7. Limb Ataxia Absent -9. Best Language No aphasia; normal -10. Dysarthria Normal -11. Extinction and Inattention No abnormality -Total 0 Query Text:A score of 0 is normal or asymptomatic. Total possible score is 42 . ED: Notify Physician for NIHSS increase by > / = 3 points. Inpatient: RN or Physician to activate a stroke alert for NIHSS increase of > / = 3 points. Coma Scale [Assess] -Eye Opening Spontaneous -Motor Obeys Commands -Verbal Oriented [Total] -Coma Scale Total 15 Physical Exam Neuro Neuro Narrative: -? General: Laying comfortably in bed; in no acute distress. -? HENT: Normal oropharynx and mucosa. Normal external appearance of ears and nose. Exophthalmos. -? Neck: Supple, no pain or tenderness -? CV:? No peripheral edema. -? Pulmonary:? Normal respiratory effort. -? Ext: No cyanosis, edema, or deformity -? Skin: No rash. Normal palpation of skin.? -? Musculoskeletal: full range of motion; no joint tenderness. Normal digits and nails by inspection. No clubbing. -? NEURO: -? Mental Status: The patient was alert and oriented to time, place, and person. Normal recent/remote memory, concentration, and general fund of knowledge. -? Language: speech is fluent.? Naming, repetition, fluency, and comprehension intact. -? Cranial Nerves: PERRL EOMI, visual bonner full, no facial asymmetry, facial sensation intact, hearing intact, tongue midline, no evidence of atrophy or fibrillations. As performed by the nurse. Sternocleidomastoid and trapezius were equally strong. Soft palate raises equally, no uvular deviations -? Motor: normal bulk, tone, and strength throughout. No pronator drift or satelliting. Upper and lower extremities equal bilaterally. l R L l R L -? Tone: is normal and bulk is normal -? Sensation- Intact to light touch bilaterally -? Coordination: No dysmetria on [id number], finger follow finger or [id number]. -? Gait- Gait initiation was normal. Narrow base with good heel strike and stride length was observed during ambulation. Turns were in stride. Patient was able to walk normally in tandem. Romberg was normal. Lab / Micro Data 01/20/24 07:05 01/20/24 07:05 Labs: Laboratory Results - last 24 hr 01/19/24 13:36: WBC 7.1, RBC 5.07, Hgb 16.3, Hct 46.7, MCV 92.1, MCH 32.1 H, MCHC 34.9, RDW Std Deviation 44.4 H, RDW Coeff of [place]ierra 13.2, Plt Count 241, MPV 10.8, Immature Gran % (Auto) 0.400, Neut % (Auto) 62.5, Lymph % (Auto) 27.0, [place] % (Auto) 6.4, Eos % (Auto) 3.3, Baso % (Auto) 0.4, Absolute Neuts (auto) 4.4, Absolute Lymphs (auto) 1.91, Nucleated RBC % 0, PT 13.2, INR 1.0, APTT 28.2, Sodium 141, Potassium 3.8, Chloride 109 H, Carbon Dioxide 30.0, Anion Gap 2 L, BUN 16, Creatinine 1.13, Estim Creat Clear Calc 79.38, Est GFR (MDRD) Af Amer 83, Est GFR (MDRD) Non-Af 69, BUN/Creatinine Ratio 14.2, Glucose 105, Calcium 9.4, Troponin I High Sens 7 01/19/24 13:40: POC Glucose 111 H 01/20/24 07:05: WBC 6.3, RBC 5.00, Hgb 15.2, Hct 46.3, MCV 92.6, MCH 30.4, MCHC 32.8 D, RDW Std Deviation 43.8, RDW Coeff of [place] 13.1, Plt Count 202, MPV 10.3, Immature Gran % (Auto) 0.800, Neut % (Auto) 62.3, Lymph % (Auto) 24.4, [place] % (Auto) 7.8, Eos % (Auto) 4.1, Baso % (Auto) 0.6, Absolute Neuts (auto) 3.9, Absolute Lymphs (auto) 1.54, Nucleated RBC % 0, Sodium 141, Potassium 4.2, C hloride 110 H, Carbon Dioxide 28.0, Anion Gap 3 L, BUN 13, Creatinine 1.04, Estim Creat Clear Calc 85.42, Est GFR (MDRD) Af Amer 92, Est GFR (MDRD) Non-Af 76, BUN/Creatinine Ratio 12.5, Glucose 115 H, Calcium 8.8, Triglycerides 270 H, Cholesterol 187, LDL Cholesterol 100, VLDL Cholesterol 54 H, HDL Cholesterol 33 L Rhythm Strip Rhythm Strip: Sinus Rhythm Rate: 70 Ectopy: None Imaging Radiology Impression Chest X-Ray 01/19/24 13:22 IMPRESSION: No acute abnormalities. Electronically Signed: Piyush Flower MD at 14:02 EDT , Head/Neck CTA 01/19/24 13:22 IMPRESSION: High-grade stenosis at the origin of the left internal carotid artery. Less than 50% narrowing at the origin of the right internal carotid artery. Electronically Signed: Piyush Flower MD at 14:56 EDT , Brain MRI 01/19/24 16:49 IMPRESSION: No acute findings in the head/brain. Evidence of chronic microvascular ischemic changes. Electronically Signed: Aayush Jorge, DO at 20:30 EDT , Active Medications Active Medications Active Medications: Current Medications Generic Name Dose Route Start Last Admin Trade Name Freq PRN Reason Stop Dose Admin Acetaminophen 650 mg 01/19/24 16:49 01/20/24 08:41 Acetaminophen 325 Mg Tablet PO 650 mg Q6H PRN PRN Administration Pain 1-10 Or Fever >100.7 Enoxaparin Sodium 40 mg 01/20/24 10:00 01/20/24 08:41 Enoxaparin 40 Mg/0.4 Ml Syringe SC 40 mg DAILY TONEY Administration Gabapentin 800 mg 01/19/24 22:00 01/20/24 05:50 Gabapentin 800 Mg Tablet PO 800 mg TID TONEY Administration Hydralazine HCl 5 mg 01/19/24 16:49 Hydralazine 20 Mg/Ml Vial IV 01/20/24 16:49 Q30M PRN maintain BP parameters with HR <60 Labetalol HCl 10 - 20 mg 01/19/24 16:49 Labetalol (Prefilled) 20 Mg/4 Ml IV 01/20/24 16:49 Q10M PRN PRN maintain BP parameters with HR >/=60 Meclizine HCl 25 mg 01/19/24 16:49 Meclizine Hcl 25 Mg Tablet PO TID PRN PRN DIZZINESS Nitroglycerin 0.4 mg 01/19/24 16:49 Nitroglycerin (Inpatient Use) 0.4 Mg Tab.Subl SL Q5M PRN CARDIAC/CHEST PAIN Ondansetron HCl 4 mg 01/19/24 16:49 Ondansetron 4 Mg/2 Ml Vial IV Q8H PRN PRN NAUSEA/VOMITING Oxycodone HCl 2.5 - 5 mg 01/19/24 16:49 01/20/24 08:42 Oxycodone 5 Mg Tablet PO 5 mg Q4H PRN PRN Administration Pain Score 4-10 Sodium Chloride 10 - 40 ml 01/19/24 17:02 0.9% Saline Lock 10 Ml Syringe IV UD PRN SALINE FLUSH
--- NOTE | 2024-01-20 10:13 | PN.HOSP_ITS ---
Reason for Visit Reason for Visit: Diagnoses Dizziness and giddiness (01/19/24) Objective Data Objective Data Vital Signs: Vital Signs Temp Pulse Resp BP Pulse Ox O2 Del Method 97.6 F L 65 16 129/102 H 99 Room Air 01/20/24 08:33 01/20/24 08:33 01/20/24 08:33 01/20/24 08:33 01/20/24 08:33 01/20/24 08:44 Oxygen Delivery Method Room Air Weight: 219 lb 12.814 oz Body Mass Index (BMI) 29.7 Intake & Output: Intake and Output for Last 24 Hours 01/18/24 01/19/24 01/20/24 23:59 23:59 23:59 Intake Total 480 / 480 Balance 480 / 480 Lab / Micro Data 01/20/24 07:05 01/20/24 07:05 Labs: Laboratory Results - last 24 hr 01/19/24 13:36: WBC 7.1, RBC 5.07, Hgb 16.3, Hct 46.7, MCV 92.1, MCH 32.1 H, MCHC 34.9, RDW Std Deviation 44.4 H, RDW Coeff of [place]ierra 13.2, Plt Count 241, MPV 10.8, Immature Gran % (Auto) 0.400, Neut % (Auto) 62.5, Lymph % (Auto) 27.0, [place] % (Auto) 6.4, Eos % (Auto) 3.3, Baso % (Auto) 0.4, Absolute Neuts (auto) 4.4, Absolute Lymphs (auto) 1.91, Nucleated RBC % 0, PT 13.2, INR 1.0, APTT 28.2, Sodium 141, Potassium 3.8, Chloride 109 H, Carbon Dioxide 30.0, Anion Gap 2 L, BUN 16, Creatinine 1.13, Estim Creat Clear Calc 79.38, Est GFR (MDRD) Af Amer 83, Est GFR (MDRD) Non-Af 69, BUN/Creatinine Ratio 14.2, Glucose 105, Calcium 9.4, Troponin I High Sens 7 01/19/24 13:40: POC Glucose 111 H 01/20/24 07:05: WBC 6.3, RBC 5.00, Hgb 15.2, Hct 46.3, MCV 92.6, MCH 30.4, MCHC 32.8 D, RDW Std Deviation 43.8, RDW Coeff of [place]ierra 13.1, Plt Count 202, MPV 10.3, Immature Gran % (Auto) 0.800, Neut % (Auto) 62.3, Lymph % (Auto) 24.4, Crawford % (Auto) 7.8, Eos % (Auto) 4.1, Baso % (Auto) 0.6, Absolute Neuts (auto) 3.9, Absolute Lymphs (auto) 1.54, Nucleated RBC % 0, Sodium 141, Potassium 4.2, C hloride 110 H, Carbon Dioxide 28.0, Anion Gap 3 L, BUN 13, Creatinine 1.04, Estim Creat Clear Calc 85.42, Est GFR (MDRD) Af Amer 92, Est GFR (MDRD) Non-Af 76, BUN/Creatinine Ratio 12.5, Glucose 115 H, Calcium 8.8, Triglycerides 270 H, Cholesterol 187, LDL Cholesterol 100, VLDL Cholesterol 54 H, HDL Cholesterol 33 L Radiography Diagnostic Testing: Radiology Impression Chest X-Ray 01/19/24 13:22 IMPRESSION: No acute abnormalities. Electronically Signed: Piyush Flower MD at 14:02 EDT , Head/Neck CTA 01/19/24 13:22 IMPRESSION: High-grade stenosis at the origin of the left internal carotid artery. Less than 50% narrowing at the origin of the right internal carotid artery. Electronically Signed: Piyush Flower MD at 14:56 EDT , Brain MRI 01/19/24 16:49 IMPRESSION: No acute findings in the head/brain. Evidence of chronic microvascular ischemic changes. Electronically Signed: Aayush Jorge DO at 20:30 EDT , Rhythm Strip Rhythm Strip: Sinus Rhythm Rate: 70 Ectopy: None Assessment & Plan Assessment/Plan (1) Dizziness: PLAN: Plan #Dizziness and vertigo * The symptoms are concerning for stroke. His dizziness has been going on for about 3 days prior to admission. It is worsened with movement so BPPV is also consideration. * Imaging done of the carotid however showed severe atherosclerotic plaque formation at the origin of the left internal carotid artery with near complete occlusions with this could be the etiology of his dizziness and vertigo. * Admit to PCU under observation. * CTA of the head and neck as above. Will order MRI of the brain * Order 2D echo. Order carotid ultrasound and get vascular surgery consult * Check lipid panel and A1c. Based on MRI findings we will consider starting aspirin and high intensity statin. * Fall precautions. PT OT consult. * Allow for permissive hypertension if blood pressure is elevated in setting of stroke. * #History of CAD s/p CABG x 2: * This was about 3 to 4 years ago. * Patient states he is taking himself off all his medications because he feels like he is not doing anything for him. * It is documented that he is on aspirin so we will continue aspirin. * Counseled to follow-up with his supervisor pumping for reevaluation and for his medications to be resumed as needed. * #Elevated blood pressure: * Blood pressure elevated in the 140s and 150s systolic. * Not a known hypertensive but then again he stated that he has taken himself off of all his medications for some years now so is not known if he was taking blood pressure medications. * Allow for permissive hypertension in light of concerns for stroke. IV labetalol as needed * Start oral BP medications if blood pressure still remains elevated after stroke is ruled in or out with MRI results * #DVT prophylaxis: Lovenox CODE STATUS: Full code * Patient counseled extensively about different types of CODE STATUS including full code, DNR CCA and DNR CCA. * Patient elects to be full code. * Total [id number] time 17 minutes. #
[2024-01-20 13:33] VITALS: BMI 29.7
[2024-01-20 14:33] VITALS: BP 126/82; PULSE 59; RESP 18; TEMP 36.6; O2SAT 100
--- NOTE | 2024-01-20 15:35 | CASEMGMT ---
Met with patient to complete LEI form. LEI form explained to patient who voiced understanding and signed form. Original form placed in pt?s chart and copy provided to patient. Brianne Ruby, Discharge Planning Asst
--- NOTE | 2024-01-20 15:41 | DCINST_ITS ---
Discharge Instructions Diet Discharge Diet: Low fat / Low cholesterol and 2000 mg Sodium Diet Activity Discharge Activity: Return to Normal Activity Weight Bearing Status: Weight bearing as tolerated Dressing / Incision Call your doctor if you observe: Fever of 101 or Higher, Coldness, Increased Pain, Numbness or Tingling, Change in Color, Inability to urinate, Inability to have a bowel movement, Shortness of breath, Dizziness, Fainting spells, Swelling in the ankles, Chest pain, Prolonged hiccupping, Increased palpitations (irregular heartbeat) and Calf discomfort Follow Up Care When: IN 2 WEEKS Test Results: Test results from this visit will be discussed in further detail at your follow- up appointment, if applicable. Discharge Plan Admission Admit Date/Time: 01/19/24 15:29 Primary Reason for Your Visit: Possible TIA, dizziness/vertigo. Severe right ICA carotid stenosis. Attending Provider: Bari Crisostomo Primary Care Provider: RICK CARBALLO Consulting Providers: Marcel Barton; Adonis Anderson; Roula Schmitt; Diane Cormier; Mary Johnson; Luis Cox; Odette Fabian; Elijah Salgado; Moody Meredith; Filipe Emerson; Triny Vazquez; Marcelo Post; Keya Noguera; Mary Cruz; Regino Ramos; Rafa Aldana; Gillian Irwin; Robbie Montalvo; Davina Senior; Kodi Gutierres; Dhara Herr; Florencio Leigh Discharge Orders/Prescriptions Prescriptions: New atorvastatin 40 mg tablet 40 mg PO QHS Qty: 30 2RF Continued gabapentin 800 mg tablet 800 mg PO TID hydrocodone-acetaminophen 7.5-325 mg tablet 1 tab PO TID PRN PRN (Reason: pain) aspirin 81 mg tablet,delayed release (DR/EC) 81 mg PO DAILY xhkrqpybkrxwefw-klfcjnfpg-WB 2-30-10 mg/5 mL syrup 5 ml PO 4X/DAY PRN PRN (Reason: cough) Referrals / Follow Up: RICK CARBALLO [Other] RICK CARBALLO [Other] Florencio Leigh MD [Med Staff - Active Staff] - Within 1 Month Vijay Wilson MD [Non-Staff] - Within 1 Month Disposition Disposition (needs filled in before D/C Order can be placed): Home, Self Care
--- NOTE | 2024-01-20 15:42 | EX.PCM.CON.S ---
Assessment & Plan Assessment/Plan (1) Left carotid artery stenosis: PLAN: -CTA images reviewed, left ICA 53% stenosis by NASCET, right no significant plaque or stenosis -duplex correlates, 50-69% stenosis on left -recommend re-initiate ASA, high dose statin -ok to DC -will follow up in office to initiate surveillance duplex of carotid and bilateral lower extremity bypasses HPI Consult Data Date of Consult: 01/20/24 HPI Narrative HPI Narrative: MARYSE MAK, is a 68 M who presents with 3 days of dizziness, unsteady on feet. Has had vertigo in past. Denies focal numbness/weakness/vision loss/speech difficulty. Had a CTA that suggested severe left ICA stenosis. MRI negative for infarct. No prior knowledge of carotid stenosis. Does have cervical DJD, no neck surgery/XRT. Has not been taking ASA/statin. 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 due to popliteal aneurysms. REPLACED BY [facility] Medical History Hypertension Neuropathy Vertigo Coronary atherosclerosis of bypass graft Home Medications ?Medication ?Instructions ?Recorded ?Last Taken ?Type aspirin 81 mg tablet,delayed 81 mg PO DAILY 01/19/24 01/19/24 History release bslwtlxsvnxuusu-suduirueabgunpl-GS 5 ml PO 4X/DAY PRN PRN cough 01/19/24 Unknown History 2 mg-30 mg-10 mg/5 mL oral syrup gabapentin 800 mg tablet 800 mg PO TID 01/19/24 01/19/24 History hydrocodone 7.5 mg-acetaminophen 1 tab PO TID PRN PRN pain 01/19/24 01/19/24 History 325 mg tablet atorvastatin 40 mg tablet 40 mg PO QHS #30 tabs 01/20/24 Unknown Rx Allergy/AdvReac Type Severity Reaction Status Date / Time No Known Allergies Allergy Verified 01/19/24 13:18 Social History Smoking Status: Current every day smoker tobacco type: cigarettes ROS Constitutional Constitutional: Denies chills, fever(s), frequent falls, lethargy or weakness Eyes Eyes: Denies blind spots, change in vision or loss of vision ENT HEENT: Denies bleeding gums, hoarseness or sore throat Cardiovascular Cardiovascular: Denies abdominal pain, bluish discoloration of hand/feet, chest pain with activity, claudication, cold extremities, cyanosis, dyspnea on exertion, erythema on extremities, irregular heart rhythm, leg edema, leg ulcers, numbness in extremities or weakness in extremities Respiratory/Chest Respiratory/Chest: Denies cough, excessive phlegm production, shortness of breath at rest, shortness of breath with exertion or wheezing Gastrointestinal Gastrointestinal: Denies anorexia, change in stool character, constipation, diarrhea, melena or rectal bleeding Genitourinary Genitourinary: Denies dysuria or hematuria Musculoskeletal Musculoskeletal: Reports abnormal gait Integumentary Integumentary: Reports other Details: ; Denies erythema, non-healing lesions or wounds Neurologic Neurologic: Reports dizziness and vertigo; Denies abnormal speech, focal weakness, headache(s), loss of vision, numbness, paresthesias or sensory deficit Hematologic/Lymphatic Hematologic/Lymphatic: Denies easy bleeding, easy bruising or lymphadenopathy Physical Exam Const alert, oriented x3, no apparent distress and healthy appearing General Appearance: cooperative; Negative for combative or lethargic Orientation / Consciousness: awake Exam Limitations: no limitations HEENT Head and Scalp: normocephalic and atraumatic Eyes EOMs intact bilaterally General Eye: normal appearance of both eyes Neck full ROM, no lymphadenopathy and thyroid normal General: trachea midline; Negative for lymphadenopathy or tenderness Thyroid: thyroid normal Lymph Lymphatic: Negative for no lymphadenopathy noted Resp normal respiratory effort and no use of accessory muscles Effort and Inspection: Negative for labored, stridor or audible wheezes Cardio regular rate and regular rhythm Peripheral Pulses: brachial pulses present, radial pulses present, femoral pulses present and dorsalis pedis pulses present left; Negative for posterior tibial pulses present GI non-tender and non-distended; Negative for hepatosplenomegaly Back/Spine Cervical Spine: cervical ROM normal Extremity full ROM, normal capillary refill and no clubbing, cyanosis or edema Skin no rashes or lesions noted and no wounds Neuro oriented x3, CN's II-XII intact bilaterally, no focal motor deficits and no sensory deficits noted Psych thought process normal, cooperative, affect normal, speech normal and activity/motor behavior normal Lab / Micro Data 01/20/24 07:05 01/20/24 07:05 Labs: Laboratory Results - last 24 hr 01/20/24 07:05: WBC 6.3, RBC 5.00, Hgb 15.2, Hct 46.3, MCV 92.6, MCH 30.4, MCHC 32.8 D, RDW Std Deviation 43.8, RDW Coeff of Tierra 13.1, Plt Count 202, MPV 10.3, Immature Gran % (Auto) 0.800, Neut % (Auto) 62.3, Lymph % (Auto) 24.4, Swain % (Auto) 7.8, Eos % (Auto) 4.1, Baso % (Auto) 0.6, Absolute Neuts (auto) 3.9, Absolute Lymphs (auto) 1.54, Nucleated RBC % 0, Sodium 141, Potassium 4.2, Chloride 110 H, Carbon Dioxide 28.0, Anion Gap 3 L, BUN 13, Creatinine 1.04, Estim Creat Clear Calc 85.42, Est GFR (MDRD) Af Amer 92, Est GFR (MDRD) Non-Af 76, BUN/Creatinine Ratio 12.5, Glucose 115 H, Calcium 8.8, Triglycerides 270 H, Cholesterol 187, LDL Cholesterol 100, VLDL Cholesterol 54 H, HDL Cholesterol 33 L Rhythm Strip Rhythm Strip: Sinus Rhythm Rate: 70 Ectopy: None Imaging Radiology Impression Brain MRI 01/19/24 16:49 IMPRESSION: No acute findings in the head/brain. Evidence of chronic microvascular ischemic changes. Electronically Signed: Aayush Jorge DO at 20:30 EDT , Charges/Coding Visit Charges Inpatient E&M: 74423 Init Hosp L3
--- NOTE | 2024-01-20 15:46 | DS.PCM_ITS ---
Providers Date of Admission: 01/19/24 Date of Discharge: 01/20/24 Primary Care Physician: RICK CARBALLO Consultations 01/19/24 16:49 Consult: Tele-Neurology Routine Consulting Provider: [facility] Reason for Consult: Acute Ischemic Stroke/TIA EMERGENT Consult: No Notified: Yes Date Notified: 01/19/24 Time Notified: 15:36 Method of Notification: Answering Service Nursing Unit Staff Notify [facility] of Tele-Neurology Consult: Yes 01/20/24 10:10 Consult: Vascular Surgery Routine Consulting Provider: Florencio Leigh Reason for Consult: NEAR 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 Dizziness/vertigo EMERGENT Consult: No MD Notified: Yes Date Notified: 01/20/24 Time Notified: 10:10 Method of Notification: Text Reason For Visit: DIZZINESS AND VERTIGO Diagnosis Discharge Diagnosis (1) Dizziness: Status: Acute Code(s): R42 - Dizziness and giddiness Plan 68-year-old gentleman came to ED for dizziness and lightheadedness, vertigo since Wednesday. He also gets off balance. Dizziness is worse with the movement. Mild nausea but no vomiting. Patient has history of coronary artery status post two-vessel CABG, bilateral peripheral artery disease status post vascular surgery possible femoropopliteal bypass and carotid stenosis. #Dizziness and vertigo, possible BPV: Patient was admitted in PCU as an observation. Dizziness vertigo possible due to BPPV. CT of the head and neck showed severe atherosclerotic plaque formation at the origin of the left internal carotid artery with near complete occlusions with this could be the etiology of his dizziness and vertigo. Carotid Doppler was done and reviewed by Dr. Florencio Leigh was also consulted. He said it is moderate to stenosis. He is cleared for the discharge. MRI brain was done and does not show acute ischemia or infarct. Patient on baby aspirin continued. Fasting lipid profile shows high triglyceride and patient discharged on atorvastatin 40 mg nightly, prescription given. Patient was evaluated by teleneurology. Echo is done not reported. Stroke protocol was followed with, permissive hypertension range, PT OT and speech evaluation. Glucose 115. As per PT does not need further skilled therapy. Patient was educated about vestibular therapy. Follow-up with ENT as an outpatient. 2. Peripheral artery disease with moderate carotid sclerosis right ICA: Follow- up with vascular surgeon Dr. Senior in the office. Rest as mentioned above. Patient also has bilateral popliteal artery atherosclerosis and probably had bilateral femoropopliteal surgery with surgical scar. #History of CAD s/p CABG x 2: * This was about 3 to 4 years ago. * Patient states he is taking himself off all his medications because he feels like he is not doing anything for him. * It is documented that he is on aspirin so we will continue aspirin. * Counseled to follow-up with his radiology technologist for reevaluation and for his medications to be resumed as needed. * #Elevated blood pressure: * Blood pressure elevated in the 140s and 150s systolic. Patient not known hypertensive. Not taking currently antihypertensive medication. * Permissive hypertension protocol was followed. * Last BP 126/82 heart rate 59/min. Advised home BP monitoring or ambulatory BP monitoring in consultation with PCP to further diagnose hypertension #DVT prophylaxis: Lovenox CODE STATUS: Full code * Patient counseled extensively about different types of CODE STATUS including full code, DNR CCA and DNR CCA. * Patient elects to be full code. Discharge medication reconciliation done. Discharge follow-up instructions completed. Discharge process discussed with the patient and all questions were answered to patient's satisfaction. Follow with PCP in 1 to 2 weeks Total time spent, exact 35 minutes on discharge meds reconciliation, examination, coordination of care with nurses and ancillary staff, review of imaging and blood test and discussion with the patient on follow-up instructions. Laboratory Results 01/20/24 07:05: WBC 6.3, RBC 5.00, Hgb 15.2, Hct 46.3, MCV 92.6, MCH 30.4, MCHC 32.8 D, RDW Std Deviation 43.8, RDW Coeff of Tierra 13.1, Plt Count 202, MPV 10.3, Immature Gran % (Auto) 0.800, Neut % (Auto) 62.3, Lymph % (Auto) 24.4, [place] % (Auto) 7.8, Eos % (Auto) 4.1, Baso % (Auto) 0.6, Absolute Neuts (auto) 3.9, Absolute Lymphs (auto) 1.54, Nucleated RBC % 0, Sodium 141, Potassium 4.2, C hloride 110 H, Carbon Dioxide 28.0, Anion Gap 3 L, BUN 13, Creatinine 1.04, Estim Creat Clear Calc 85.42, Est GFR (MDRD) Af Amer 92, Est GFR (MDRD) Non-Af 76, BUN/Creatinine Ratio 12.5, Glucose 115 H, Calcium 8.8, Triglycerides 270 H, Cholesterol 187, LDL Cholesterol 100, VLDL Cholesterol 54 H, HDL Cholesterol 33 L Clinical Impression(s) from Imaging Studies Chest X-Ray 01/19/24 13:22 IMPRESSION: No acute abnormalities. Head/Neck CTA 01/19/24 13:22 IMPRESSION: High-grade stenosis at the origin of the left internal carotid artery. Less than 50% narrowing at the origin of the right internal carotid artery. Brain MRI 01/19/24 16:49 IMPRESSION: No acute findings in the head/brain. Evidence of chronic microvascular ischemic changes. Medications at Discharge Home Medications aspirin 81 mg tablet,delayed release 81 mg PO DAILY 01/19/24 eguwjajfencnxrb-zvxkrdnsrewnkcc-XF 2 mg-30 mg-10 mg/5 mL oral syrup 5 ml PO 4X/DAY PRN PRN cough 01/19/24 gabapentin 800 mg tablet 800 mg PO TID 01/19/24 hydrocodone 7.5 mg-acetaminophen 325 mg tablet 1 tab PO TID PRN PRN pain 01/19/24 atorvastatin 40 mg tablet 40 mg PO QHS #30 tabs 01/20/24 Physical Exam Narrative Seen and examined. Patient dizziness and vertigo was relieved. [place] comfortable. Had teleneurology consult in the morning. Was also seen by vascular surgeon Dr. Florencio Leigh Physical exam General: Alert, Oriented x3, Cooperative HEENT: No vertigo. No nystagmus. Atraumatic, PERRLA, EOMI, Normocephalic Oral: No Gingival or Mucosal Lesions/ Ulcerations Neck: Supple, No JVD, Negative Carotid Bruits Chest wall/Lungs: Air entry diminished in bilateral lung bases. No crepitation/rhonchi Cardiovascular: Sinus bradycardia. Heart rate 57 to 59/min. Normal S1, Normal S2, LLSB systolic murmur. Abdomen: Bowel Sounds Present, Soft, Non Tender, Non-Distended : No dysuria. No renal angle tenderness. No suprapubic tenderness. 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 No edema, Capillary Refill Less than 3 Seconds Skin: No rashes, No breakdown Musculoskeletal: No Tenderness to Palpation of Joints or Extremities Neurological: Cranial nerves II-XII grossly intact, DTR 2+/4. No acute focal neurological deficit. NIH stroke scale 0. Psych/Mental Status: Normal Affect, Appropriate. Weight / BMI Weight Weight: 219 lb 12.814 oz Body Mass Index (BMI) 29.7 ABG / Lab / Microbiology Data 01/20/24 07:05 01/20/24 07:05 Laboratory: Laboratory Results - last 24 hr 01/20/24 07:05: WBC 6.3, RBC 5.00, Hgb 15.2, Hct 46.3, MCV 92.6, MCH 30.4, MCHC 32.8 D, RDW Std Deviation 43.8, RDW Coeff of Tierra 13.1, Plt Count 202, MPV 10.3, Immature Gran % (Auto) 0.800, Neut % (Auto) 62.3, Lymph % (Auto) 24.4, [place] % (Auto) 7.8, Eos % (Auto) 4.1, Baso % (Auto) 0.6, Absolute Neuts (auto) 3.9, Absolute Lymphs (auto) 1.54, Nucleated RBC % 0, Sodium 141, Potassium 4.2, C hloride 110 H, Carbon Dioxide 28.0, Anion Gap 3 L, BUN 13, Creatinine 1.04, Estim Creat Clear Calc 85.42, Est GFR (MDRD) Af Amer 92, Est GFR (MDRD) Non-Af 76, BUN/Creatinine Ratio 12.5, Glucose 115 H, Calcium 8.8, Triglycerides 270 H, Cholesterol 187, LDL Cholesterol 100, VLDL Cholesterol 54 H, HDL Cholesterol 33 L Radiography Diagnostic Testing: Radiology Impression Brain MRI 01/19/24 16:49 IMPRESSION: No acute findings in the head/brain. Evidence of chronic microvascular ischemic changes. Electronically Signed: Aayush Jorge DO at 20:30 EDT , D/C Instructions Discharge Diet: Low fat / Low cholesterol and 2000 mg Sodium Diet Weight Bearing Status: Weight bearing as tolerated Call your doctor if you observe: Fever of 101 or Higher, Coldness, Increased Pain, Numbness or Tingling, Change in Color, Inability to urinate, Inability to have a bowel movement, Shortness of breath, Dizziness, Fainting spells, Swelling in the ankles, Chest pain, Prolonged hiccupping, Increased palpitations (irregular heartbeat) and Calf discomfort When: IN 2 WEEKS Meaningful Use Info Meaningful Use Meaningful Use Diagnoses (Choose all that apply): None applicable Ischemic Stroke Statin Dosing Therapy Reference: STATIN DOSE THERAPY REFERENCE: * Patients > 75 years receive moderate or high dose statin therapy. * Patients 75 years or YOUNGER should receive HIGH intensity statin dose unless contraindicated. You will be required to document reason for non-treatment if statin daily dose does not meet guidelines. HIGH DOSE STATIN THERAPY DAILY Atorvastatin > than or = to 40 mg Rosuvastatin > than or = to 20 mg Amlodipine + Atorvastatin > than or = to 2.5/40 mg Ezetimibe + Simvastatin 10/80 mg Simvastatin 80mg Discharge Plan Admission Admit Date/Time: 01/19/24 15:29 Primary Reason for Your Visit: Possible TIA, dizziness/vertigo. Severe right ICA carotid stenosis. Attending Provider: Bari Crisostomo Primary Care Provider: RICK CARBALLO Consulting Providers: Marcel Barton; Adonis Anderson; Roula Schmitt; Diane Cormier; Mary Johnson; Luis Cox; Odette Fabian; Elijah Salgado; Moody Meredith; Filipe Emerson; Triny Vazquez; Marcelo Post; Keya Nogeura; Mary Cruz; Regino Ramos; Rafa Aldana; Gillian Irwin; Robbie Montalvo; Davina Senior; Kodi Gutierres; Dhara Herr; Florencio Leigh Discharge Orders/Prescriptions Prescriptions: New atorvastatin 40 mg tablet 40 mg PO QHS Qty: 30 2RF Continued gabapentin 800 mg tablet 800 mg PO TID hydrocodone-acetaminophen 7.5-325 mg tablet 1 tab PO TID PRN PRN (Reason: pain) aspirin 81 mg tablet,delayed release (DR/EC) 81 mg PO DAILY dmpbwybmpgmozsi-ajoquukki-HM 2-30-10 mg/5 mL syrup 5 ml PO 4X/DAY PRN PRN (Reason: cough) Referrals / Follow Up: RICK CARBALLO [Other] RICK CARBALLO [Other] Florencio Leigh MD [Med Staff - Active Staff] - Within 1 Month Vijay Wilson MD [Non-Staff] - Within 1 Month Disposition Disposition (needs filled in before D/C Order can be placed): Home, Self Care Charges/Coding Visit Charges Inpatient E&M: 10969 Disch Hosp >30min
[2024-01-20 15:52] VITALS: BP 126/82; PULSE 59; RESP 18; TEMP 36.6; O2SAT 100
--- NOTE | 2024-01-20 15:52 | CHAPLAIN ---
Type of Pastoral Visit _x__ Initial Visit ___ Follow-up Visit ___ On-call Visit ___ General Patient Visit ___ Spiritual Assessment ___ Family Conference ___ Bereavement ___ Rapid Response ___ Code Blue ___ Other (describe below) Pastoral Care Referral From _x__ Patient ___ Family ___ Nurse ___ Physician ___ Phone Circuit Operator ___ Surgical Instrument Repair Specialist ___ Other (describe below) Sacrament/Intervention _x__ Active listening ___ Anointing ___ Spiritism ___ Bereavement ___ Communion _x__ [place] exploration ___ _x__ Life review _x__ Prayer ___ Reconciliation ___ Sacrament of Sick _x__ Supportive presence ___ Wedding ___ Other (describe below) Pastoral Comments patient is very welcoming of spiritual care support and is talkative about his life and situation; pt has been staying in a sober minded house near the [facility] [place] [facility] and has been there once before; pt states that he came [facility] to do a refresher as he noticed himself becoming lax in relationship to God; pt states that he has been greatly helped by the people of the [facility] and has been growing in his [place] and knowledge of God and the Bible; pt has a large family and is especially close to his oldest son who is supportive of him; pt seeks spiritual affirmation and prayer; pt is waiting to hear more about the test results and any plans for further treatment
--- NOTE | 2024-01-20 16:26 | CASEMGMT ---
Patient has order for discharge. RN CM in to discuss needs at discharge. Patient denies needs or help at discharge. Patient had no further questions or concerns.
== END 2024-01-20 15:49 | disposition home or self-care (01) ==
LOC: ED 16:21 → PCU 16:39
PROVIDERS: Admitting Provider Student in an Organized Health Care Education/Training Program; Emergency Provider Emergency Medicine; Visit Provider Internal Medicine
DX: R42 Dizziness and giddiness (principal); I65.23 Occlusion and stenosis of bilateral carotid arteries; Z79.82 Long term (current) use of aspirin; F17.210 Nicotine dependence, cigarettes, uncomplicated; I25.10 Atherosclerotic heart disease of native coronary artery without angina pectoris; I10 Essential (primary) hypertension; G62.9 Polyneuropathy, unspecified; Z79.899 Other long term (current) drug therapy
CPT/HCPCS: 36415; 70496; 70498; 70551; 71045; 80048; 80061; 82962; 84484; 85025; 85610; 85730; 93005; 93306; 93880; 96372; 97162; 97802; 99221; 99285; 99406; Q9967; A4216; G0378

== ENCOUNTER → 2024-05-02 | Outpatient (CLI) | payer MEDICARE, SELFPAY ==
[2024-05-02 17:55] LABS: Amphetamine Urine VISTA NEGATIVE (<1000 ng/mL); Barbiturate Urine VISTA NEGATIVE (< 200 ng/mL); Benzodiazepine Urine VISTA POSITIVE (< 200 ng/mL); Cocaine Urine VISTA NEGATIVE (< 300 ng/mL); Ecstacy Urine VISTA NEGATIVE (< 500 ng/mL); Methadone Urine VISTA NEGATIVE (< 300 ng/mL); PCP Urine VISTA NEGATIVE (< 25 ng/mL); THC Urine VISTA NEGATIVE (< 50 ng/mL); Vista UDS pH Range 5
== END | disposition home or self-care (01) ==
PROVIDERS: PCP Family Medicine; Referring Provider Anesthesiology Pain Medicine; Visit Provider Anesthesiology Pain Medicine
DX: F11.20 Opioid dependence, uncomplicated (principal)
CPT/HCPCS: 80307

== ENCOUNTER 2025-01-28 16:45 | Emergency (ER) | payer MEDICARE, SELFPAY ==
[2025-01-28 16:46] VITALS: BP 179/111; PULSE 67; RESP 18; TEMP 36.9; O2SAT 99; BMI 27.7
--- NOTE | 2025-01-28 17:05 | EDS_ITS ---
HPI History of Present Illness Chief Complaint: Hypertension Informant: patient Onset/Context/Timing Onset: Weeks Context: Gradual Onset Timing: Continuous Current Severity: Mild Maximum Severity: Mild Narrative Narrative: 69-year-old male originally from [place] now moved to [place] has been there about a week or so. Has been out of his blood pressure meds for 2 to 3 weeks. Says blood pressure has been running high. He is unsure what he was on. Said he cannot take FELIX inhibitors because he had angio edema with those. He says that he has felt off with malaise. Denies vomiting or diarrhea. No chest pain or severe headaches. Prior similar symptoms: Yes Recent Illness/Hospitalization: No PFSH [facility] Medical History Carotid arterial disease Hypertension Neuropathy Vertigo Coronary atherosclerosis of bypass graft Home Medications ?Medication ?Instructions ?Recorded ?Last Taken ?Type aspirin 81 mg tablet,delayed 81 mg PO DAILY 01/19/24 0 01/19/24 History release azyhpsffqknydat-yastglxybgdhevf-WJ 5 ml PO 4X/DAY PRN PRN cough 01/19/24 Unknown History 2 mg-30 mg-10 mg/5 mL oral syrup gabapentin 800 mg tablet 800 mg PO TID 01/19/2401/18 History hydrocodone 7.5 mg-acetaminophen 1 tab PO TID PRN PRN pain 01/19/24 01/19/24 History 325 mg tablet atorvastatin 40 mg tablet 40 mg PO QHS #30 tabs Unknown Rx gabapentin 800 mg tablet 800 mg PO TID 20 days #60 ta bs 01/28/25 Unknown Rx nifedipine 30 mg tablet,extended 30 mg PO DAILY 30 day s #30 tabs 01/28/25 Unknown Rx release Allergy/AdvReac Type Severity Reaction Status Date / Time lisinopril Allergy Angioedema Verified 01/28/25 16:48 Social History Smoking Status: Current every day smoker tobacco type: cigarettes ROS ROS ED ROS Narrative Generalized malaise. Constitutional Constitutional ED: Denies chills or fever(s) Eyes Eyes: Denies blurry vision Cardiovascular Cardiovascular: Denies chest pain or palpitations Respiratory/Chest Respiratory/Chest: Denies cough or dyspnea Gastrointestinal Gastrointestinal: Denies abdominal pain, constipation, diarrhea, melena, nausea or vomiting Genitourinary Genitourinary ED: Denies dysuria or hematuria Musculoskeletal Musculoskeletal: Denies arthralgias or back pain Integumentary Denies abscess Neurologic Neurologic: Denies headache(s) Psychiatric Psychiatric: Denies anxiety or depression Hematologic/Lymphatic Hematologic/Lymphatic: Reports none Allergic/Immunologic Allergic/Immunologic ED: Denies mouth swelling, tongue swelling or urticaria EXAM Physical Exam Narrative Exam Narrative: 69-year-old male sitting upright in the chair and in stood up and got in the bed. Vital signs are stable afebrile is blood pressure is elevated 179/111. Does not look septic GI distress. Is a family member I believe with him. H EENT exam pupils round react light. Moist membranes. No facial droop. No trauma. Neck nontender. Back nontender. Prior back surgical scars. Lungs clear to auscultation bilaterally. Heart regular rhythm rate about 70 no murmur. Chest wall ribs nontender. Abdomen soft nontender. Moving all 4 extremities. 5 out of 5 bias binding cutter strength. Dorsi plantarflexion intact. Normal strength. Normal radial pulses. Calves are nontender without edema or cords. Neurologically he is awake and alert. Answering questions following commands. Const Vital Signs: 01/28/25 16:46 01/28/25 17:18 Temperature 98.4 F Temperature Source Oral Pulse Rate 67 Respiratory Rate 18 Respiratory Pattern Normal Blood Pressure 179/111 H Blood Pressure Mean 133 Pulse Ox 99 Oxygen Delivery Method Room Air Positive well nourished and well developed; Negative for cachectic or unkempt General Appearance ED: well developed and NAD; Negative for unkempt, cachectic, cyanotic, diaphoretic or pallor Nutritional Appearance: Negative for cachectic HEENT Reports moist mucous membranes Eyes PERRL and EOMs intact bilaterally Neck no lymphadenopathy, supple and no JVD Chest Wall inspection of chest normal and palpation of chest normal Resp normal respiratory effort and clear to auscultation bilaterally Cardio regular rate, regular rhythm, S1 normal heart sound, S2 normal heart sound and no murmurs GI normal to inspection, nondistended, normoactive bowel sounds, non-tender and non-distended Auscultation: normoactive bowel sounds Palpation: soft; Negative for tender, guarding, mass or rebound tenderness present Back/Spine no CVA tenderness Extremity normal to inspection General Extremety ED: Negative for edema or tenderness General Extremity: Negative for edema Neuro oriented x3 and CN's II-XII intact bilaterally Sensorium / Orientation: alert Motor Exam: strength 5/5 throughout Psych mental status grossly normal Appearance: Negative for unkempt Skin no rashes or lesions noted, no wounds and skin turgor normal General Skin Exam: Negative for jaundice or pallor Rashes: No rashes noted Trauma: Negative for abrasion Wounds: Negative for wounds noted MDM MDM MDM Narrative Medical decision making narrative: 69-year-old male recently moved from [place] to [place] has been out of his blood pressure medications for 3 weeks is a general malaise. We treated with metoprolol p.o. CBC and chemistry be obtained. Otherwise exam is benign. Repeat exam patient is doing well at 6:50 PM. He ambulated bathroom without any difficulty. His current blood pressure was 175/102. I will write him for his nifedipine 30 mg daily. For 30 days. Gabapentin 800 3 times daily for 20 days. And I will give him local primary care physicians to follow-up with and the [facility]. Patient is comfortable with the plan. History & Record Review Discussion w/independent historian: Patient Lab Data Attestation: I reviewed the patient's lab results. Lab results narrative: CBC shows a white count 8.5. H&H is 16 and 45. Platelets 235. Unremarkable. Electrolytes showed gap of 11. BUN and creatinine of 13 and 0.9. Glucose 105. Labs: Laboratory Results - last 24 hr 01/28/25 17:13 WBC 8.5 RBC 5.10 Hgb 16.0 Hct 45.6 MCV 89.4 MCH 31.4 MCHC 35.1 RDW Std Deviation 44.3 H RDW Coeff of [place] 13.5 Plt Count 235 MPV 10.2 Immature Gran % (Auto) 0.600 Neut % (Auto) 66.1 Lymph % (Auto) 24.1 [place] % (Auto) 6.6 Eos % (Auto) 2.2 Baso % (Auto) 0.4 Absolute Neuts (auto) 5.6 Absolute Lymphs (auto) 2.04 Nucleated RBC % 0 Sodium 140 Potassium 4.1 Chloride 105 Carbon Dioxide 24.8 Anion Gap 11 BUN 13 Creatinine 0.96 Estim Creat Clear Calc 81.96 Est GFR (MDRD) Non-Af 87 BUN/Creatinine Ratio 13.8 Glucose 105 H Calcium 9.6 Discharge Plan Triage Chief Complaint: Hypertension ED Provider: Darren Bahena Dx/Rx/DC Orders Clinical Impression: Chronic hypertension, History of coronary artery bypass graft x 2, Has run out of medications, Chronic pain Instructions: ED High Blood Pressure Hypertension Prescriptions: New nifedipine 30 mg tablet extended release 30 mg PO DAILY 30 Days Qty: 30 0RF gabapentin 800 mg tablet 800 mg PO TID 20 Days Qty: 60 0RF No Action gabapentin 800 mg tablet 800 mg PO TID hydrocodone-acetaminophen 7.5-325 mg tablet 1 tab PO TID PRN PRN (Reason: pain) aspirin 81 mg tablet,delayed release (DR/EC) 81 mg PO DAILY hflbienqzmrtvac-qxfvrxelp-QB 2-30-10 mg/5 mL syrup 5 ml PO 4X/DAY PRN PRN (Reason: cough) atorvastatin 40 mg tablet 40 mg PO QHS Qty: 30 2RF Primary Care Provider: Care Physician,No Primary Referrals: Rayo Olivo MD [Non-Staff] - Elieser Cole MD [Med Staff - Call Manager] - As soon as possible Babita Head [facility]NAGER[facility] [[facility]] - As soon as possible Activity Restrictions/Additional Instructions: Follow-up with a local primary care physician as soon as possible. I gave you 2 referrals 1 to the [facility] across the [facility] which is a large practice of primary care physicians. Call both them to see when they get you in. Gabapentin as needed for pain. Restart your nifedipine this evening. I would take it at night an hour before you go to bed. Print Language: [place] Disposition Disposition: Home, Self Care
[2025-01-28 17:25] LABS: Hematocrit 45.6 % (40-54); Hemoglobin 16.0 g/dL (13.0-16.5); Immature Granulocytes Count 0.050 X10^3/uL (0.0-0.0); Mean Corp Hgb Conc 35.1 g/dL (32-36); Mean Corpuscular Volume 89.4 fL (80-94); Mean Platelet Vol. 10.2 fl (6.2-12.0); NRBC Flagged by Analyzer 0 % (0-5); Platelet Count 235 K/mm3 (150-450); RBC Distribution Width CV 13.5 % (11.6-14.6); RBC Distribution Width SD 44.3 fl (35.1-43.9); Red Blood Count 5.10 M/mm3 (4.6-6.2); White Blood Count 8.5 K/mm3 (4.4-11.0)
--- OUTSIDE RECORDS SUMMARY | 2025-01-28 17:28 | XMS RPT_ITS | CCD ---
Author Organization [facility] Care Team Providers Care Owner Consulting Engineer Name Role Phone Aylin Bunn Unavailable Unavailable Unavailable Unavailable Garbadawala, Lawson S. Unavailable Ivanauskas, Saulius Unavailable Unavailable Ivanauskas, Saulius Unavailable Unavailable Catalina Bunnissa O Unavailable Unavailable Aylin Bunn O Unavailable Unavailable Ward, Colton Unavailable Unavailable Ward, Colton Unavailable Unavailable Garbadawala, Laswon S. Unavailable Aylin Bunn Unavailable Aylin Bunn Primary Care Provider Bunny Portillo Admitting Unavailable Bunny Portillo Attending Unavailable Mat Garcia Admitting Unavailable Mat Garcia Attending Unavailable Rolando Constantino Admitting Unavailable Rolando Constantino Attending Unavailable Bunny Portillo Attending Unavailable Bunny Portillo Admitting Unavailable Mariela Morgan Admitting Unavailable ViauMariela Attending Unavailable ViaMariela gamble Admitting Unavailable ViauMariela Attending Unavailable Aylin Bunn Primary Care Provider Unavailable Primary Care Provider Unavailabl e No, Physician Primary Care Provider UnavailMarin Lamas Primary Care Provider No, Physician Primary Care Provider Unavailabl e MEGHA FELIX Primary Care Unavailable FREDY GALLEGO Referring Unavailable BEBA, PARAMVIR S Admitting Unavailable BEBA, PARAMVIR S Attending Unavailable BLUE HUMPHREY Consulting Unavailable ARTEM WALKER Consulting Unavailable BRIANNE URBINA Attending Unavailable Marin Alarcon MD [facility] Kait L[facility] MENDER - [facility], Paulette Primary Care Provider GREGORY CORBIN Attending Unavailable PAULETTE CARBALLO Primary Care Unavailable [facility] Jules Bowman MD Unavailable [phone] Paulette VELAZCO Primary Care Physician Kait [facility], Paulette Sharath Primary Care Provide r PCP, Pt States None Referring Unavailable LUDY GIRON Attending Unavailable LUDY GIRON Attending Unavailable Mccook Maddi YORK Attending Unavailable Mccook MUSEUM HOST/HOSTESSMaddi Unavailable [phone] Kait LACE MENDER [facility], Paulette Primary Care Provider KAIT PAULETTE Primary Care Unavailable EMILIANA HERNANDES Referring Unavailable PAULETTE CARBALLO Primary Care Unavailable MARIBEL CRANE Attending Unavailable PAULETTE CARBALLO Primary Care Unavailable Laureen MUSEUM HOST/HOSTESSGail Primary Care Provider Kait [facility], Paulette Ortizbeth Primary Care Provide r Jules Bowman MD Unavailable [phone] Kait [place] Paulette Primary Care Provider Jules Bowman MD. Unavailable [phone] WOOD ENG Referring Unavailab le KAIT PAULETTE GLENARM Primary Care UnavailJules Vines MD. Unavailable Kait LACE MENDER [facility], [place]lette Primary Care Provider KAIT, PAULETTE Primary Care Unavailable CHEMA WEBBER Attending Unavailable KAIT, PAULETTE Primary Care Unavailable MARY ANNE HOLCOMB Attending Unavailable LOKI HAMILTON Attending Unavailable ROBMORA, PAULETTE Primary Care Unavailable ROBMORA, PAULETTE Primary Care Unavailable LOKI HAMILTON Attending Unavailable MARIEL PALACIOS Attending Unavailable KAIT, PAULETTE Primary Care Unavailable LOKI HAMILTON Attending Unavailable ROBMORA, PAULETTE Primary Care Unavailable LOKI HAMILTON Referring Unavailable FIGUEROA, DOMO S Consulting Unavailable KAIT PAULETTE Primary Care Unavailable PARINJERONIMO, ANNIE Admitting Unavailable PARISANJIV MUÑOZIV Attending Unavailable mora JAYLENPaulette Sharath Primary Care Provide r ROBUCK, Paulette E Attending Unavailable ROBUCK, Paulette E Attending Unavailable ROBUCK, Paulette E Attending Unavailable ROBUCK, Paulette E Attending Unavailable ROBUCK, Paulette E Admitting Unavailable ROBUCK, Paulette E Attending Unavailable ROBUCK, Paulette E Attending Unavailable Vanessa Mcrae Attending Unavailable Rayo JAIMES Attending Unavailable Kranthi Bari Attending Unavailable Sabrinaam, Dhara Lashaun Admitting Unavailable Marcel Barton Consulting Unavailable KELLI COTTO Primary Care Unavailable Adeli, Amir Consulting Unavailable Hinduja, Roula Consulting Unavailable Casa, Diane Consulting Unavailable Zha, Mary Consulting Unavailable Brooke, Luis Consulting Unavailable Rui, Odette Consulting Unavailable Bittar, Elijah Consulting Unavailable Kelli Meredith Consulting Unavailable Filipe Emerson Consulting Unavailable Triny Vazquez Consulting Unavailable Marcelo Post Consulting Unavailable Chuckie, Keya Consulting Unavailable Mary Cruz Consulting Unavailable Regino Ramos Consulting UnavailRafa Falcon Consulting Unavailable Irwin, Rami Consulting Unavailable Robbie Montalvo Consulting Unavailable Davina Senior Consulting Unavailable Kodi Gutierres Consulting Unavailable Koram, Dhara Lashaun Consulting Unavailable Florencio Leigh Consulting Unavailable Kranthi, Bari Consulting Unavailable Omid Murilloman Attending Unavailable Chidi, Ayman Referring Unavailable KELLI COTTO Primary Care Unavailable Rayo Jaimes Primary Care Unavailable Basali, Ayman Referring Unavailable Basali, Ayman Attending Unavailable Kranthi, Bari Attending Unavailable KELLI COTTO Primary Care Unavailable Koram, Dhara Lashaun Admitting Unavailable Marcel Barton Consulting Unavailable Adeli, Amir Consulting Unavailable Hinduja, Roula Consulting Unavailable Casa, Diane Consulting Unavailable Zha, Mary Consulting Unavailable Brooke, Luis Consulting Unavailable Rui, Odette Consulting Unavailable Bittar, Elijah Consulting Unavailable eKlli Meredith Consulting Unavailable Filipe Emerson Consulting Unavailable Triny Vazquez Consulting Unavailable Gusanne, Marcelo Consulting Unavailable Chuckie, Keya Consulting Unavailable Ridha, Mohamed Consulting Unavailable Zajaydalokhalif, Mhd Andres Consulting UnavailRafa Falcon Consulting Unavailable Irwin, Rami Consulting Unavailable Selvin, Robbie Consulting Unavailable Davina Senior Consulting Unavailable Hanjuan, Vargassekelvin Consulting Unavailable Koram, Dhara Lashaun Consulting Unavailable Florencio Leigh Consulting Unavailable Rah Gaspar Attending Unavailable Koram, Dhara Lashaun Attending Unavailable Koram, Dhara Lashaun Referring Unavailable Florencio Leigh Attending Unavailable [facility] Primary Care Unavailable VIAU, MARIELA TOLENTINO Referring Unavailable VIAU, MARIELA TOLENTINO Attending Unavailable Theodore CARPIO, Sae Primary Care Provider THEODORE SAE Primary Care Unavailable SURJIT ROMAON Attending Unavailable Generic Provider , No Assigned Pcp Primary Car e Provider Unavailable GENERIC PROVIDER, NO ASSIGNED PCP Primary Care Unavailable KERI HUSSEIN Attending Unavailable Gracie CARPIO, Jules Gimenez Unavailable Rayo Jaimes MD Primary Care Provider [phone] ROMIE BARNHART Attending Unavailable [facility]E SHARATH Primary Care Unavaila ble ROBUCK, [facility] Primary Care Unavaila ble KENYATTA ROBLES Attending Unavailable [facility] Primary Care Unavailable ABELARDO BARNES Attending Unavail able CLEMENTE HOYOS Attending Unavaila ble [facility] Primary Care Unavailable [facility] Primary Care Unavailable JOSE MANUEL HOFF Attending Unavailab JAGUAR Devine Attending Unavailable [facility] Primary Care Unavailable SYSTEM, PROVIDER NOT IN Referring Unavaila ble VIAUMARIELA Referring Unavailable VIAU, MARIELA TOLENTINO Attending Unavailable KAIT PAULETTE SHARATH Primary Care Unavaila ble VIAUMARIELA Referring Unavailable VIAU, MARIELA TOLENTINO Attending Unavailable KAIT [facility] Primary Care Unavaila ble ARISTEO BEAVERS Consulting Unavailable DENILSON ESQUIVEL Admitting Unavailable BROOKE HERNANDES Attending UnavailJAGUAR Brunson Referring Unavailable [facility] Primary Care Unavailable [facility] Consulting Unav ailable RIDDHI, JACQUELYN MCKEON Attending Unavailable [facility] PAU[facility]TTE EARLY Primary Care Unavaila ble ROBMORA, PAULETTE SHARATH Primary Care Unavaila ble VIAU, MARIELA TOLENTINO Attending Unavailable JEREMY SEGOVIA Attending Unavailmi CARBALLO, PAULETTE EARLY Primary Care Unavaila ble ROBMORA, PAULETTE ORTIZBETH Primary Care Unavaila ble VIAU, MARIELA TOLENTINO Attending Unavailable RAYO JAIMES Primary Care Unavailable MARIELA MORGAN Attending Unavailable AYLIN LUNA Attending Unavail RAYO Monteiro Primary Care Unavailable Paulette CARBALLO Primary Care Physician Wendy Reed Attending Unavailable Wendy Reed Attending Unavailable Allergies Allergy Classification Reported Allergen(s) Allergy Type Date of Onset Reaction(s) Facility HMG-CoA Reductase Inhibitors (statins) (1 source) atorvastatin Drug Allergy 3 Other (See Comments) [facility] Work Phone: Unclassified (9 sources) Iodides Propensity to adverse reactions to drug 1 [facility] (20 sources) atorvastatin; Translations: [ATORVASTATIN] Drug Allergy 3 Other (See Comments), Other [facility] Work Phone: (16 sources) Angiotensin-conv erting enzyme inhibitor agent; Translations: [FELIX inhibitors] Drug allergy 4 Angioedema of tongue (disorder) [facility] (15 sources) Angiotensin-conv erting enzyme inhibitor agent Propensity to adverse reactions to drug 4 Swelling [facility] Medications Current Medications Medication Drug Class(es) Dates Sig (Normalized) Sig (Original) acetaminophen 325 mg oral tablet (20 sources) Start: 09-11-2024 End: 09-21-2024 take 2 tablets by mouth every four hours as needed acetaminophen (TYLENOL) 325 MG tablet Take 2 (two) tablets (650 mg total) by mouth every 4 (four) hours as needed . 30 tablet 09/11/2024 09/21/2024 Active Start: 09-06-2024 End: 09-11-2024 take 1 tablet by mouth every four hours as needed for pain and headache 650 mg, Oral, Every 4 hours PRN, mild pain, fever 100.4 F or greater, headaches, Starting on Wed09/06/24 at 2021 Start: 08-25-2022 End: 09-24-2022 take 2 tablets by mouth every six hours as needed for pain acetaminophen (TYLENOL) 325 MG tablet Take 2 (two) tablets (650 mg total) by mouth every 6 (six) hours as needed for pain . 120 tablet 0 08/25/2022 09/24/2022 Start: 08-12-2022 End: 11-10-2022 take 2 tablets by mouth every four hours as needed for pain acetaminophen (TYLENOL) 325 MG tablet [The details of the medication are not available because there are pending changes by a home health clinician.] 120 tablet 0 08/12/2022 11/10/2022 Suspended Start: 04-06-2022 Acetaminophen 325 MG Oral Tablet 04/06/2022 Provider: Start: 12-09-2021 End: 12-19-2021 take 2 tablets by mouth every six hours as needed for pain acetaminophen (TYLENOL) 325 MG tablet Take 2 (two) tablets (650 mg total) by mouth every 6 (six) hours as needed for pain . 30 tablet 0 12/09/2021 12/19/2021 Active Start: 08-08-2020 acetaminophen (TYLENOL) tablet 650 mg Start: 08-02-2020 End: 08-02-2020 acetaminophen (TYLENOL) tabl et 1,000 mg Start: 04-22-2020 End: 04-22-2020 acetaminophen (TYLENOL) tabl et 975 mg Start: 06-19-2019 End: 06-19-2019 acetaminophen (TYLENOL) tabl et 975 mg acetaminophen 325 mg / HYDROcodone bitartrate 7.5 mg oral tablet (16 sources) Opioid Agonist Start: 10-28-2023 End: 09-11-2024 take 1 tablet by mouth every six hours for pain [place] 325 mg-7.5 mg oral tablet 1 tab(s), Oral, q6hr for pain, Refill(s) 0 Start Date: 10/28/23 Status: Ordered Start: 07-07-2022 End: 07-07-2022 hydroCODone-acetaminophen (N ORCO) 5-325 MG per tablet 1 tablet Start: 11-11-2019 End: 11-11-2019 HYDROcodone-acetaminophen (N ORCO) 5-325 mg per tablet 1 tablet Start: 11-11-2019 End: 11-14-2019 take 1 tablet by mouth every eight hours as needed for pain HYDROcodone-acetaminophen (NORCO) 5-325 mg per tablet Indications: Dental caries , Pain, dental Take 1 (one) tablet by mouth every 8 (eight) hours as needed for pain . 9 tablet 0 11/11/2019 11/14/2019 Active amLODIPine 5 mg oral tablet (8 sources) Dihydropyridine Calcium Channel Keiry Start: 09-27-2023 take 1 tablet by mouth once daily amLODIPine 5 mg Tab 5 mg = 1 tab(s), Oral, Daily, # 90 tab(s), Refills(s) 4, Pharmacy: [facility] #[id number], 183, cm, 09/27/23 14:23:00 EDT, Height/Length Dosing, 95.3, kg, 09/27/23 14:23:00 EDT, Weight Dosing Start Date: 09/27/23 Status: Ordered Start: 08-08-2020 take 10 mg by mouth once daily 10 mg, Oral, DAILY, First dose on Ileana 08/08/20 at 1700 Start: 08-02-2020 End: 08-08-2020 take 1 tablet by mouth once daily amLODIPine (NORVASC) 5 MG tablet Take 1 tablet by mouth daily 30 tablet 0 08/02/2020 08/08/2020 Discontinued (LIST CLEANUP) take 1 tablet by raj th once daily amLODIPine (NORVASC) 10 MG tablet Take 10 mg by mouth daily 0 Active ascorbic acid 1000 mg oral tablet (6 sources) Start: 04-06-2022 Ascorbic Acid 1000 MG Oral Tablet 04/06/2022 Provider: End: 10-28-2017 ascorbic acid, vitamin C, (V ITAMIN C) 500 MG tablet aspirin 81 mg delayed release oral tablet (20 sources) Nonsteroidal Anti-inflammatory Drug Start: 01-26-2024 End: 09-11-2024 take 1 tablet by mouth once daily aspirin 81 mg Oral EC Tab 81 mg = 1 tab(s), Oral, Daily, # 90 tab(s), Refills(s) 4, Pharmacy: [facility] #[id number], 183, cm, 01/26/24 13:02:00 EDT, Height/Length Dosing, 101.4, kg, 01/26/24 13:19:00 EDT, Weight Dosing Start Date: 01/26/24 Status: Ordered Quantity: 90.0 Unit: tab(s) Repeat number: 5 Start: 08-25-2023 take 1 tablet by raj th once daily aspirin 81 mg Oral EC Tab 81 mg = 1 tab(s), Oral, Daily, # 90 tab(s), Refills(s) 4, Pharmacy: [facility] #[id number], 183, cm, 05/05/23 9:03:00 EST, Height/Length Dosing, 100.5, kg, 05/05/23 9:03:00 EST, Weight Dosing Start Date: 08/25/23 Status: Ordered Start: 05-05-2023 take 1 tablet by raj th once daily aspirin 81 mg Oral EC Tab 81 mg = 1 tab(s), Oral, Daily, # 90 tab(s), Refills(s) 3, [id number], 183, cm, 05/05/23 9:03:00 EST, Height/Length Dosing, 100.5, kg, 05/05/23 9:03:00 EST, Weight Dosing Start Date: 05/05/23 Status: Ordered Start: 04-06-2022 Aspirin 81 81 MG Oral Tablet Chewable 04/06/2022 Provider: Start: 04-29-2020 End: 09-24-2022 take 1 tablet by mouth once daily aspirin 81 mg Oral EC Tab 81 mg = 1 tab(s), Oral, Daily, # 90 tab(s), Refills(s) 3, Pharmacy: [facility]/pharmacy #[id number], 183, cm, 06/10/22 11:29:00 EST, Height/Length Dosing, 109, kg, 06/10/22 11:29:00 EST, Weight Dosing Start Date: 06/10/22 Status: Ordered Start: 06-20-2019 End: 06-26-2019 take 81 mg by mouth once daily 81 mg, Oral, Daily, Fir st dose on Wed06/20/19 at 0900 DO NOT CRUSH OR CHEW. aspirin 81 mg ch ewable tablet Chew 1 tablet (81 mg) once daily. Active End: 08-08-2020 aspirin 81 MG tablet Take 81 mg by mouth 0 08/08/2020 Discontinued (LIST CLEANUP) atorvastatin 40 mg oral tablet (20 sources) HMG-CoA Reductase Inhibitor Start: 01-26-2024 End: 09-11-2024 take 1 tablet by mouth once daily atorvastatin 40 mg Tab 40 mg = 1 tab(s), Oral, Daily, JUAN CARLOS, # 90 tab(s), Refills(s) 4, Pharmacy: [facility] #[id number], 183, cm, 01/26/24 13:02:00 EDT, Height/Length Dosing, 101.4, kg, 01/26/24 13:19:00 EDT, Weight Dosing Start Date: 01/26/24 Status: Ordered Quantity: 90.0 Unit: tab(s) Repeat number: 5 Start: 06-10-2022 take 1 tablet by raj th once daily atorvastatin 20 mg Tab 20 mg = 1 tab(s), Oral, Daily, # 90 tab(s), Refills(s) 3, Pharmacy: [facility]/pharmacy #[id number], 183, cm, 06/10/22 11:29:00 EST, Height/Length Dosing, 109, kg, 06/10/22 11:29:00 EST, Weight Dosing Start Date: 06/10/22 Status: Ordered Start: 04-21-2022 atorvastatin ( LIPITOR) 10 MG tablet Start: 04-06-2022 Atorvastatin C alcium 10 MG Oral Tablet 04/06/2022 Provider: Start: 12-09-2021 End: 01-20-2022 take 0.5 tablet by mouth once daily atorvastatin (LIPITOR) 20 MG tablet Take 0.5 (one-half) tablet (10 mg total) by mouth nightly . 45 tablet 1 01/20/2022 Active Start: 04-29-2020 End: 04-07-2021 take 1 tablet by mouth once daily atorvastatin (LIPITOR) 20 MG tablet Take 1 (one) tablet (20 mg total) by mouth daily . 30 tablet 3 04/29/2020 04/07/2021 Discontinued Start: 05-27-2018 End: 08-02-2020 atorvastatin (LIPITOR) 40 MG tablet Take 40 mg by mouth 0 05/27/2018 08/02/2020 Discontinued (LIST CLEANUP) benzonatate 100 mg oral capsule (3 sources) Non-narcotic Antitussive Start: 12-09-2021 End: 12-16-2021 take 1 capsule by mouth three times daily as needed for cough benzonatate (TESSALON) 100 MG capsule Take 1 (one) capsule (100 mg total) by mouth 3 (three) times a day as needed for cough . 20 capsule 0 12/09/2021 12/16/2021 Active Start: 06-15-2018 End: 08-02-2020 take 1 capsule by mouth three times daily as needed for cough benzonatate (TESSALON) 200 MG capsule Take 1 capsule by mouth 3 times daily as needed for Cough 15 capsule 0 06/15/2018 08/02/2020 Discontinued (LIST CLEANUP) Breztri Aerosphere inhalation aerosol (3 sources) Start: 01-26-2024 take 2 puff(s) by inhalation twice daily Breztri Aerosphere inhalation aerosol 2 puff(s), Inhalation, BID, 10.7 gm, Refill(s) 0, samples given to patient (Rx) Start Date: 01/26/24 Status: Ordered Quantity: 10.7 Unit: g Repeat number: 1 Indications: Chronic obstructive pulmonary disease, unspecified; Start: 01-26-2024 take 2 puff(s) by in halation twice daily Breztri Aerosphere inhalation aerosol 2 puff(s), Inhalation, BID, 10.7 gm, Refill(s) 0, samples given to patient (Rx) Start Date: 01/26/24 Status: Ordered brompheniramine maleate 0.4 mg/ml / dextromethorphan hydrobromide 2 mg/ml / pseudoephedrine hydrochloride 6 mg/ml oral solution (1 source) alpha-Adrenergic Agonist, Uncompetitive U-krwsrw-Q-aspartate Receptor Antagonist, Sigma-1 Agonist Start: 01-20-2023 End: 01-25-2023 take 5 mL by mouth four times daily as needed for cough jjmxyxwavrubupk-wibxjlpbsbvhblq-RZ 2-30-10 MG/5ML syrup Take 5 mLs by mouth 4 times daily as needed for Congestion or Cough 50 mL 0 01/20/2023 01/25/2023 Active 12 hr buPROPion hydrochloride 100 mg extended release oral tablet (6 sources) Aminoketone Start: 04-06-2022 take 1 tablet by mouth every twelve hours Wellbutrin SR 100 MG Oral Tablet Extended Release 12 Hour 04/06/2022 Provider: End: 10-28-2017 take 1 tablet by mouth twice daily buPROPion (WELLBUTRIN SR, ZYBAN) 150 MG 12 hr tablet Take 150 mg by mouth 2 (two) times a day. 10/28/2017 Discontinued cephalexin 500 mg oral capsule (2 sources) Cephalosporin Antibacterial Start: 09-11-2024 End: 09-20-2024 take 1 capsule by mouth four times daily in the evening cephALEXin (KEFLEX) 500 MG capsule Take 1 (one) capsule (500 mg total) by mouth 4 (four) times a day for 9 days . 36 capsule 09/11/2024 5:22 PM EDT 09/11/2024 09/20/2024 Active cloNIDine hydrochloride 0.2 mg oral tablet (14 sources) Central alpha-2 Adrenergic Agonist Start: 09-18-2023 take 1 tablet by mouth every twelve hours cloNIDine (Catapres) 0.2 mg tablet Take 1 tablet (0.2 mg) by mouth every 12 hours. 09/18/2023 Active Start: 09-17-2023 End: 05-12-2024 take 1 tablet by mouth twice daily cloNIDine HCL (CATAPRES) 0.2 MG tablet Take 1 (one) tablet (0.2 mg total) by mouth 2 (two) times a day . 60 tablet 09/17/2023 05/12/2024 Discontinued Start: 05-21-2022 End: 08-03-2022 cloNIDine HCL (CATAPRES) 0.1 MG tablet Start: 04-06-2022 cloNIDine HCl 0.1 MG Oral Tablet 04/06/2022 Provider: Start: 08-09-2020 End: 08-09-2020 cloNIDine (CATAPRES) tablet 0.1 mg diphenhydrAMINE hydrochloride 50 mg oral capsule (4 sources) Histamine-1 Receptor Antagonist Start: 04-14-2022 take 1 tablet by mouth every hour diphenhydrAMINE (BENADRYL) 50 MG capsule Take 1 tablet by mouth [address] scan 1 capsule 0 04/14/2022 Active Start: 06-20-2019 End: 06-26-2019 take 25 mg by mouth every six hours as needed diphenhydrAMINE (BENADRYL) oral solid 25 mg Start: 06-18-2019 End: 06-18-2019 diphenhydrAMINE (BENADRYL) i njection 50 mg Start: 12-09-2018 End: 12-09-2018 diphenhydrAMINE (BENADRYL) o ral solid 25 mg docusate sodium 50 mg / sennosides, custodial 8.6 mg oral tablet (3 sources) Start: 09-06-2024 End: 10-11-2024 take 1 tablet by mouth twice daily senna-docusate (SENNA-S) 8.6-50 mg Take 1 (one) tablet by mouth 2 (two) times a day while on narcotics . 60 tablet 09/11/2024 10/11/2024 Active DULoxetine 60 mg delayed release oral capsule (2 sources) Serotonin and Norepinephrine Reuptake Inhibitor Start: 04-06-2022 Cymbalta 60 MG Oral Capsule Delayed Release Particles 04/06/2022 Provider: End: 06-26-2019 take 1 capsule by mouth once daily DULoxetine (CYMBALTA) 30 MG capsule Take 30 mg by mouth daily . 0 06/26/2019 Discontinued (Stop Taking at Discharge) eszopiclone 3 mg oral tablet (1 source) Start: 04-06-2022 Lunesta 3 MG O ral Tablet 04/06/2022 Provider: ugjqmgbprka-nhvmkyvgy-eptlel er (Trelegy Ellipta) 200-62.5-25 mcg DsDv (20 sources) Start: 08-25-2022 End: 11-23-2022 nepjzanuzic-cyulhevwq-pcknou er (Trelegy Ellipta) 200-62.5-25 mcg DsDv Inhale 1 (one) Inhalation daily . 60 each 2 08/25/2022 11/23/2022 Active Start: 07-01-2022 fluticasone-um eclidin-vilanter (Trelegy Ellipta) 200-62.5-25 mcg DsDv Inhale 1 (one) Inhalation daily . 60 each 11 07/01/2022 Suspended Start: 07-01-2022 fluticasone-um eclidin-vilanter (Trelegy Ellipta) 200-62.5-25 mcg DsDv Inhale 1 (one) Inhalation daily . 60 each 11 07/01/2022 Active hydrALAZINE hydrochloride 25 mg oral tablet (4 sources) Arteriolar Vasodilator Start: 08-08-2020 take 1 tablet by mouth three times daily hydrALAZINE (APRESOLINE) 25 MG tablet Take 1 tablet by mouth 3 times daily 90 tablet 0 08/09/2020 Active Start: 08-02-2020 End: 08-02-2020 hydrALAZINE (APRESOLINE) inj ection 10 mg Start: 04-22-2020 End: 04-22-2020 hydrALAZINE (APRESOLINE) tab let 25 mg ibuprofen 400 mg oral tablet (4 sources) Nonsteroidal Anti-inflammatory Drug Start: 04-06-2022 take 1 tablet by mouth every six hours as needed for pain ibuprofen (IBU) 400 MG tablet Take 1 tablet by mouth every 6 hours as needed for Pain 40 tablet 0 04/06/2022 Active Start: 04-22-2020 End: 04-22-2020 ibuprofen (ADVIL,MOTRIN) tab let 800 mg Start: 06-19-2019 End: 06-26-2019 take 1 tablet by mouth every six hours as needed 600 mg, Oral, Every 6 hours PRN, mild pain, Starting 06/19/19 at 1717 Give with Food Do Not Crush or Chew if administering orally due to bitter taste. May be crushed if given via tube. labetalol hydrochloride 5 mg/ml injectable solution (1 source) beta-Adrenergic Keiry Start: 08-08-2020 labetalol (NORMODYNE;TRANDATE) injection 20 mg linezolid 600 mg oral tablet (4 sources) Oxazolidinone Antibacterial Start: 12-08-2021 End: 12-22-2021 linezolid (ZYVOX) 600 mg tablet Take 1 (one) tablet (600 mg total) by mouth 2 (two) times a day x 2 Weeks. Follow-up with the clinic See Dr. Hammond in 10days. Obtain labs for CBC, ESR, and CRP weekly x 2wks. for 14 days . 28 tablet 0 12/08/2021 12/22/2021 Active lisinopril 30 mg oral tablet (20 sources) Angiotensin Converting Enzyme Inhibitor Start: 05-05-2023 take 1 tablet by mouth once daily lisinopril 30 mg Tab 30 mg = 1 tab(s), Oral, Daily, # 90 tab(s), Refills(s) 3, Pharmacy: [facility] #[id number], 183, cm, 12/20/23 9:03:00 EST, Height/Length Dosing, 100.5, kg, 05/05/23 9:03:00 EST, Weight Dosing Start Date: 05/05/23 Status: Ordered Start: 07-29-2021 take 1 tablet by raj th once daily lisinopril 30 mg Tab 30 mg = 1 tab(s), Oral, Daily, # 90 tab(s), Refills(s) 3, Pharmacy: [facility] #[id number], 183, cm, 01/11/23 10:56:00 EDT, Height/Length Dosing, 106.2, kg, 01/11/23 10:56:00 EDT, Weight Dosing Start Date: 01/11/23 Status: Ordered Start: 09-02-2020 End: 04-07-2021 take 1 tablet by mouth once daily lisinopriL (PRINIVIL,ZESTRIL) 30 MG tablet Take 1 (one) tablet (30 mg total) by mouth daily . 90 tablet 0 01/22/2021 04/07/2021 Discontinued (Reorder (Suppress CancelRx Message to Pharmacy)) take 1.5 tablets by mouth once daily lisinopril (PRINIVIL;ZESTRIL) 20 MG tablet Take 1.5 tablets by mouth daily 0 Active take 1 tablet by raj th once daily lisinopril 10 MG PO TABS Take 1 tablet by mouth daily. 0 Active lisinopril (PRIN IVIL;ZESTRIL) 20 MG tablet Take 30 mg by mouth daily 0 Active loratadine 10 mg oral tablet (12 sources) Start: 06-20-2019 End: 04-07-2021 take 1 tablet by mouth once daily loratadine (CLARITIN) 10 mg tablet Take 1 (one) tablet (10 mg total) by mouth daily Start: 06/27/19. 30 tablet 0 06/27/2019 04/07/2021 Discontinued meclizine hydrochloride 12.5 mg oral tablet (9 sources) Antiemetic Start: 09-06-2024 End: 10-11-2024 take 1 tablet by mouth three times daily as needed for dizziness meclizine (ANTIVERT) 12.5 mg tablet Take 1 (one) tablet (12.5 mg total) by mouth 3 (three) times a day as needed for dizziness . 30 tablet 09/11/2024 Active meloxicam 15 mg oral tablet (12 sources) Nonsteroidal Anti-inflammatory Drug Start: 01-23-2025 End: 01-23-2026 take 1 tablet by mouth once daily meloxicam (MOBIC) 15 MG tablet Indications: Arthritis of right hip Take 1 (one) tablet (15 mg total) by mouth daily . 90 tablet 3 01/23/2025 01/23/2026 Active Start: 04-21-2022 End: 08-03-2022 meloxicam (MOBIC) 15 MG tabl et Start: 04-06-2022 Meloxicam 15 M G Oral Tablet 04/06/2022 Provider: Start: 06-26-2016 End: 10-28-2017 take 1 tablet by mouth once daily meloxicam (MOBIC) 15 MG tablet Take 15 mg by mouth daily. 0 06/26/2016 10/28/2017 Discontinued methocarbamol 500 mg oral tablet (3 sources) Muscle Relaxant Start: 06-26-2022 End: 07-06-2022 take 1 tablet by mouth twice daily as needed for muscle spasms methocarbamoL (ROBAXIN) 500 MG tablet Indications: Muscle spasms of neck Take 1 (one) tablet (500 mg total) by mouth 2 (two) times a day as needed for muscle spasms . 20 tablet 0 06/26/2022 07/06/2022 Active Multiple Vitamins-Minerals (THERAPEUTIC MULTIVITAMIN-MINERAL S) tablet (2 sources) take 1 tablet by mouth once daily Multiple Vitamins-Minerals (THERAPEUTIC MULTIVITAMIN-MINERA LS) tablet Take 1 tablet by mouth daily 0 Active multivitamin (multivitamin) per tablet (7 sources) take 1 tablet by mouth once daily multivitamin (multivitamin) per tablet Take 1 tablet by mouth daily . 0 Active naloxone hydrochloride 40 mg/ml nasal spray (11 sources) Opioid Antagonist Start: 09-11-2024 naloxone (Na rcan) 4 mg/actuation Manele Administer 1 spray into one nostril for known or suspected opioid overdose. If patient worsens or does not respond, may repeat in 2-3 minutes. . 2 each 09/11/2024 Active Start: 01-03-2022 naloxone (NARC AN) 4 mg/actuation Manele Administer 1 spray into one nostril for known or suspected opioid overdose. If patient worsens or does not respond, may repeat in 2-3 minutes. . 2 each 1 01/03/2022 Active naproxen 500 mg oral tablet (4 sources) Nonsteroidal Anti-inflammatory Drug Start: 08-11-2024 End: 08-18-2024 take 1 tablet by mouth twice daily at mealtime naproxen (Naprosyn) 500 MG tablet Take 1 tablet (500 mg) by mouth 2 times daily (with meals) for 7 days. 14 tablet 08/11/2024 08/18/2024 Active Start: 02-09-2013 take 1 tablet by raj th twice daily as needed for pain naproxen 500 MG PO TABS take 1 Tab by mouth 2 times daily as needed for Pain. 30 Tab 0 02/09/2013 Active nicotine 4 mg chewing gum (13 sources) Cholinergic Nicotinic Agonist Start: 09-16-2022 End: 10-28-2022 nicotine polacrilex (NICORETTE) 4 MG gum Apply 1 (one) each (4 mg total) to the mouth or throat as needed for smoking cessation . 100 each 2 09/28/2022 10/28/2022 Active oxyCODONE hydrochloride 5 mg oral tablet (6 sources) Opioid Agonist Start: 09-11-2024 End: 09-18-2024 oxyCODONE (ROXICODONE) 5 MG immediate release tablet Indications: Fluid collection at surgical site, subsequent encounter Take 1 (one) tablet (5 mg total) by mouth every 6 (six) hours as needed (Days supply per fill: 7) . 28 tablet 09/11/2024 5:22 PM EDT 09/11/2024 09/18/2024 Active Start: 09-06-2024 End: 09-11-2024 take 5-10 mg by mouth every four hours as needed 5-10 mg, Oral, Every 4 hours PRN (may repeat), moderate to severe pain, Starting on Wed09/06/24 at 2021, Initiate with 5 mg oral every 4 hours prn moderate to severe pain. For unrelieved pain, may repeat 5 mg within 60 minutes of initial dose. If pain is RELIEVED after repeat dose, change to 10 mg every 4 hours prn moderate to severe pain. If pain is UNrelieved after repeat dose, or patient requires dose reduction, call physician. oxyCODONE 80 MG PO tab SR take 60 mg by mouth 4 times daily. 0 Active pantoprazole 40 mg delayed release oral tablet (20 sources) Proton Pump Inhibitor Start: 08-13-2022 End: 09-28-2022 take 1 tablet by mouth once daily pantoprazole (PROTONIX) 40 MG tablet Take 1 (one) tablet (40 mg total) by mouth daily . 30 tablet 0 08/25/2022 09/28/2022 Discontinued (Therapy completed) Start: 12-09-2021 End: 01-08-2022 take 1 tablet by mouth once daily pantoprazole (PROTONIX) 40 MG tablet Take 1 (one) tablet (40 mg total) by mouth daily . 30 tablet 0 12/09/2021 12/25/2021 Discontinued (Therapy completed) polyethylene glycol [id number] [id number] mg powder for oral solution (5 sources) Osmotic Laxative Start: 09-11-2024 End: 09-18-2024 polyethylene glycol (GLYCOLAX) 17 gram/dose powder Mix 17 (seventeen) g in liquid and drink by mouth 2 (two) times a day as needed . 238 g 09/11/2024 09/18/2024 Active Start: 09-08-2024 End: 09-11-2024 17 g, Oral, Daily, First dos e on Wed09/08/24 at 1230 Start: 04-06-2022 MiraLax 17 GM Oral Packet 04/06/2022 Provider: Start: 08-08-2020 polyethylene g lycol (GLYCOLAX) packet 17 g pravastatin sodium 20 mg oral tablet (10 sources) HMG-CoA Reductase Inhibitor Start: 10-30-2021 End: 10-30-2022 pravastatin 20 mg Tab Refills(s) 0 Start Date: 11/24/21 Status: Ordered predniSONE 20 mg oral tablet (9 sources) Start: 01-20-2023 End: 01-25-2023 take 2 tablets by mouth once daily predniSONE (DELTASONE) 20 MG tablet Take 2 tablets by mouth daily for 5 doses 10 tablet 0 01/20/2023 01/25/2023 Active Start: 06-21-2022 End: 07-01-2022 take 1 tablet by mouth once daily predniSONE (DELTASONE) 20 MG tablet Take 1 (one) tablet (20 mg total) by mouth daily for 10 days . 10 tablet 0 06/21/2022 07/01/2022 Active Start: 04-14-2022 predniSONE (DE LTASONE) 50 MG tablet Take 1 tablet by mouth 13 hours prior, 7 hours prior and [address] scan 3 tablet 0 04/14/2022 Active Start: 02-28-2020 take 2 tablets by mo uth once daily predniSONE 20 MG tablet Take 2 tablets by mouth daily. 10 tablet 0 02/28/2020 Active Start: 02-28-2020 End: 02-28-2020 predniSONE (DELTASONE) table t 40 mg Promethazine (1 source) Phenothiazine Start: 08-08-2020 promethazine (PHENERGAN) tablet 12.5 mg sildenafil 100 mg oral tablet (12 sources) Phosphodiesterase 5 Inhibitor Start: 12-02-2023 take 1 tablet by mouth once daily as needed sildenafil 100 mg Tab 100 mg = 1 tab(s), Oral, Daily, PRN for erectile dysfunction, # 30 tab(s), Refills(s) 2, Pharmacy: [facility] #[id number], 183, cm, 10/28/23 14:20:00 EDT, Height/Length Dosing, 98.6, kg, 10/28/23 14:20:00 EDT, Weight Dosing Start Date: 12/02/23 Status: Ordered Quantity: 30.0 Unit: tab(s) Repeat number: 3 Start: 05-05-2023 take 1 tablet by raj once daily as needed Viagra 100 mg Tab 100 mg = 1 tab(s), Oral, Daily, PRN for erectile dysfunction, # 30 tab(s), Refills(s) 2, LATISHA, Pharmacy: [facility] #[id number], 183, cm, 05/05/23 9:03:00 EST, Height/Length Dosing, 100.5, kg, 05/05/23 9:03:00 EST, Weight Dosing Start Date: 05/05/23 Status: Ordered Start: 01-11-2023 take 1 tablet by raj th once daily as needed Viagra 100 mg Tab 100 mg = 1 tab(s), Oral, Daily, PRN for erectile dysfunction, # 30 tab(s), Refills(s) 2, LATISHA, [facility]: [facility] #[id number], 183, cm, 01/11/23 10:56:00 EDT, Height/Length Dosing, 106.2, kg, 01/11/23 10:56:00 EDT, Weight Dosing Start Date: 01/11/23 Status: Ordered tamsulosin hydrochloride 0.4 mg oral capsule (20 sources) alpha-Adrenergic Keiry Start: 08-25-2023 take 1 capsule by mouth once daily tamsulosin 0.4 mg Cap 0.4 mg = 1 cap(s), Oral, Daily, # 90 cap(s), Refills(s) 4, Pharmacy: [facility] #[id number], 183, cm, 05/05/23 9:03:00 EST, Height/Length Dosing, 100.5, kg, 05/05/23 9:03:00 EST, Weight Dosing Start Date: 08/25/23 Status: Ordered Start: 05-05-2023 take [address] [facility] once daily tamsulosin 0.4 mg Cap 0.4 mg = 1 cap(s), Oral, Daily, # 90 cap(s), Refills(s) 3, [facility]: [facility] #[id number], 183, cm, 05/05/23 9:03:00 EST, Height/Length Dosing, 100.5, kg, 05/05/23 9:03:00 EST, Weight Dosing Start Date: 05/05/23 Status: Ordered Start: 01-11-2023 take [address] [facility] once daily tamsulosin 0.4 mg Cap 0.4 mg = 1 cap(s), Oral, Daily, # 90 cap(s), Refills(s) 3, [facility]: [facility] #[id number], 183, cm, 01/11/23 10:56:00 EDT, Height/Length Dosing, 106.2, kg, 01/11/23 10:56:00 EDT, Weight Dosing Start Date: 01/11/23 Status: Ordered Start: 04-06-2022 End: 12-10-2022 take 1 capsule by mouth at dinner tamsulosin (FLOMAX) 0.4 mg capsule Take 1 (one) capsule (0.4 mg total) by mouth after evening meal . 30 capsule 2 08/25/2022 09/24/2022 traMADol hydrochloride 50 mg oral tablet (20 sources) Opioid Agonist Start: 09-05-2024 take 1 tablet by mouth every six hours as needed traMADol (ULTRAM) 50 mg tablet Indications: Burn Take 1 (one) tablet (50 mg total) by mouth every 6 (six) hours as needed . 8 tablet 09/05/2024 Active Start: 04-14-2022 take [address] [facility] every eight hours for pain traMADol (ULTRAM) 50 MG tablet take 2 tablets by mouth every 8 hours if needed for pain 0 04/14/2022 Active Start: 04-14-2022 End: 08-13-2022 take 1 tablet by mouth every eight hours as needed for pain traMADoL (ULTRAM) 50 mg tablet [The details of the medication are not available because there are pending changes by a home health clinician.] 0 04/14/2022 08/13/2022 Discontinued (Therapy completed) Start: 04-06-2022 traMADol HCl 1 00 MG Oral Tablet 04/06/2022 Provider: Start: 03-18-2021 End: 03-25-2021 traMADoL (ULTRAM) 50 mg tabl et Indications: Primary osteoarthritis of right hip Take 1 (one) tablet (50 mg total) by mouth every 6 (six) hours as needed for pain (Days supply per fill: 7 . 28 tablet 0 03/18/2021 03/25/2021 Active triamcinolone acetonide 1 mg/ml topical cream (3 sources) Corticosteroid Start: 06-26-2019 End: 07-26-2019 triamcinolone (KENALOG) 0.1 % cream Apply topically 2 (two) times a day . 15 g 0 06/26/2019 07/26/2019 Active Start: 06-20-2019 End: 06-26-2019 triamcinolone (KENALOG) 0.1 % cream Start: 12-09-2018 End: 12-09-2018 triamcinolone acetonide (CHRISTOPHER ALOG-40) injection 40 mg Zinc (1 source) Start: 04-06-2022 Zinc 100 MG Or al Tablet 04/06/2022 Provider: Completed/Discontinued Medications Medication Drug Class(es) Dates Sig (Normalized) Sig (Original) acetaminophen 325 mg / oxyCODONE hydrochloride 10 mg oral tablet (13 sources) Opioid Agonist Start: 09-25-2016 End: 10-28-2017 take 1 tablet by mouth every six hours as needed oxyCODONE-acetamino phen (PERCOCET) 10-325 mg per tablet Take 1 tablet by mouth every 6 (six) hours as needed. 90 tablet 0 09/25/2016 10/28/2017 Discontinued Start: 08-26-2016 End: 10-28-2017 take 1 tablet by mouth every six hours as needed oxyCODONE-acetaminophen (PERCOCET) 5-325 mg per tablet Take 1 tablet by mouth every 6 (six) hours as needed for pain. 60 tablet 0 08/26/2016 10/28/2017 Discontinued [id number] 200 actuat albuterol 0.09 mg/actuat metered dose inhaler (8 sources) beta2-Adrenergic Agonist Start: 09-02-2020 End: 04-07-2021 albuterol 90 mcg/actuation inhaler aluminum hydroxide 40 mg/ml / magnesium hydroxide 40 mg/ml / simethicone 4 mg/ml oral suspension (1 source) Start: 06-19-2019 End: 06-26-2019 take 30 mL by mouth every four hours as needed 30 mL, Oral, Every 4 hours PRN, indigestion, Starting 06/19/19 at 1717 amiodarone hydrochloride 200 mg oral tablet (5 sources) Antiarrhythmic Start: 12-09-2021 End: 01-08-2022 take 1 tablet by mouth twice daily amiodarone (CORDARONE) 200 MG tablet Take 1 (one) tablet (200 mg total) by mouth 2 (two) times a day . 60 tablet 0 12/09/2021 12/25/2021 Discontinued (Therapy completed) amoxicillin 875 mg / clavulanate 125 mg oral tablet (13 sources) Penicillin-class Antibacterial Start: 09-03-2022 End: 09-10-2022 take 1 tablet by mouth every twelve hours amoxicillin-clavul anate (AUGMENTIN) 875-125 mg per tablet Take 1 (one) tablet by mouth every 12 (twelve) hours for 7 days . 14 tablet 0 09/03/2022 09/10/2022 Start: 04-22-2020 End: 04-22-2020 amoxicillin-clavulanate (AUG MENTIN) 875-125 mg per tablet 1 tablet Start: 04-22-2020 End: 09-30-2020 take 1 tablet by mouth twice daily amoxicillin-clavulanate (AUGMENTIN) 875-125 mg per tablet Take 1 (one) tablet by mouth 2 (two) times a day . 19 tablet 0 04/22/2020 09/30/2020 Discontinued (Therapy completed) atenolol 25 mg oral tablet (6 sources) beta-Adrenergic Keiry Start: 10-30-2021 End: 11-10-2021 take 1 tablet by mouth once daily atenoloL (TENORMIN) 25 MG tablet Take 1 (one) tablet (25 mg total) by mouth daily . 30 tablet 11 10/30/2021 11/10/2021 Discontinued (Patient's Request) azithromycin 250 mg oral tablet (1 source) Macrolide Antimicrobial Start: 06-15-2018 End: 08-02-2020 take 1 tablet by mouth once daily, then take 2 tablets by mouth once daily, then take 1 tablet by mouth, then take 1 tablet by mouth once daily azithromycin (ZITHROMAX Z-MARIYA) 250 MG tablet Take 1 tablet by mouth daily Take 2 tabs on day one, then 1 tab daily for the next 4 days 6 tablet 0 06/15/2018 08/02/2020 Discontinued (LIST CLEANUP) baclofen 10 mg oral tablet (1 source) gamma-Aminobutyric Acid-ergic Agonist Start: 04-29-2024 End: 05-12-2024 take 2 tablets by mouth three times daily baclofen (LIORESAL) 10 MG tablet Take 2 (two) tablets (20 mg total) by mouth 3 (three) times a day for 5 days . 30 tablet 04/29/2024 05/12/2024 Discontinued 2 ml benztropine mesylate 1 mg/ml injection (1 source) Anticholinergic, Antihistamine Start: 06-19-2019 End: 06-26-2019 inject 2 mg by intramuscular injection every twenty-four hours as needed 2 mg, Intramuscular, Once as needed, acute dystonia, Starting Wed06/19/19 at 1717, For 1 dose [] and notify the physician. 30 ml bupivacaine hydrochloride 5 mg/ml injection (1 source) Amide Local Anesthetic Start: 09-06-2024 End: 09-06-2024 5 mL, Other, Once, On Wed09/06/24 at 1850, For 1 dose calcium carbonate 500 mg chewable tablet (1 source) Start: 09-09-2024 End: 09-11-2024 take 500 mg by mouth twice daily as needed for gastroesophageal reflux disease 500 mg, Oral, 2 times daily PRN, indigestion, heartburn, Starting on Wed09/09/24 at 0134, Give with Food calcium chloride 0.0014 meq/ml / potassium chloride 0.004 meq/ml / sodium chloride 0.103 meq/ml / sodium lactate 0.028 meq/ml injectable solution (2 sources) Start: 09-06-2024 End: 09-07-2024 take 75 mL intravenously every hour 75 mL/hr, Intravenous, Continuous, Starting on Wed09/06/24 at 2030, For 16 hours Start: 09-06-2024 End: 09-06-2024 500 mL, Intravenous, at 1,87 5 mL/hr, Once, On Wed09/06/24 at 2030, For 1 dose cefTRIAXone 2000 mg injection (1 source) Cephalosporin Antibacterial Start: 09-06-2024 End: 09-11-2024 take 2000 mg intravenously every twenty-four hours 2,000 mg, Intravenous, at 100 mL/hr, Every 24 hours, First dose on Wed09/06/24 at 2200, Indication: Other (specify), Indication: Skin/soft tissue infection clindamycin 150 mg oral capsule (4 sources) Lincosamide Antibacterial Start: 11-11-2019 End: 11-11-2019 clindamycin (CLEOCIN) capsule 300 mg Start: 11-11-2019 End: 11-18-2019 take 1 capsule by mouth four times daily clindamycin (Cleocin HCL) 300 MG capsule Take 1 (one) capsule (300 mg total) by mouth 4 (four) times a day for 7 days . 28 capsule 0 11/11/2019 11/18/2019 Active Start: 04-15-2019 End: 04-25-2019 take 1 capsule by mouth four times daily clindamycin (CLEOCIN) 300 MG capsule Take 1 (one) capsule (300 mg total) by mouth 4 (four) times a day for 10 days . 40 capsule 0 04/15/2019 04/25/2019 Active Start: 04-15-2019 End: 04-15-2019 clindamycin (CLEOCIN) IVPB 6 00 mg (premix) cyclobenzaprine hydrochloride 10 mg oral tablet (8 sources) Muscle Relaxant Start: 06-23-2023 End: 05-12-2024 take 1 tablet by mouth twice daily as needed for pain cyclobenzaprine (FLEXERIL) 10 MG tablet Take 1 tablet p.o. twice daily as needed muscle spasm/pain. . 14 tablet 06/23/2023 05/12/2024 Discontinued Start: 07-13-2022 take 1 tablet by raj three times daily as needed for muscle spasms cyclobenzaprine 10 mg Tab 10 mg = 1 tab(s), Oral, TID, PRN for spasm, # 90 tab(s), Refills(s) 0, Pharmacy: [facility]/pharmacy #[id number], 183, cm, 07/13/22 11:16:00 EST, Height/Length Dosing, 110.9, kg, 07/13/22 11:16:00 EST, Weight Dosing Start Date: 07/13/22 Status: Ordered docusate sodium 100 mg oral capsule (20 sources) Start: 08-13-2022 End: 09-24-2022 take 1 capsule by mouth once daily docusate sodium (COLACE) 100 MG capsule Take 1 (one) capsule (100 mg total) by mouth daily . 30 capsule 0 08/25/2022 09/24/2022 Start: 04-06-2022 Dulcolax Stool Softener 100 MG Oral Capsule 04/06/2022 Provider: Start: 12-10-2021 End: 01-09-2022 take 1 capsule by mouth once daily docusate sodium (COLACE) 100 MG capsule Take 1 (one) capsule (100 mg total) by mouth daily Start: 12/10/21. 30 capsule 0 12/10/2021 12/25/2021 Discontinued (Therapy completed) doxycycline hyclate 100 mg oral tablet (14 sources) Tetracycline-class Drug Start: 06-21-2022 End: 08-03-2022 take 1 tablet by mouth twice daily doxycycline hyclate (VIBRA-TABS) 100 MG tablet Take 1 (one) tablet (100 mg total) by mouth 2 (two) times a day . 14 tablet 0 06/21/2022 08/03/2022 Discontinued Start: 04-22-2020 End: 04-22-2020 doxycycline (VIBRAMYCIN) ora l solid 100 mg Start: 04-22-2020 End: 09-30-2020 take 1 tablet by mouth twice daily doxycycline hyclate (VIBRA-TABS) 100 MG tablet Take 1 (one) tablet (100 mg total) by mouth 2 (two) times a day . 13 tablet 0 04/22/2020 09/30/2020 Discontinued (Therapy completed) 0.4 ml enoxaparin sodium 100 mg/ml prefilled syringe (1 source) Low Molecular Weight Heparin Start: 09-08-2024 End: 09-11-2024 inject 40 mg by subcutaneous injection once daily 40 mg, Subcutaneous, Daily, First dose on Wed09/08/24 at 1230, Administer in abdomen unless otherwise directed by prescriber. Notify physician if patient refuses., Prophylaxis Indication: VTE Prophylaxis [id number] 0.3 ml EPINEPHrine 1 mg/ml auto-injector (6 sources) alpha-Adrenergic Agonist, beta-Adrenergic Agonist, Catecholamine Start: 09-17-2023 End: 05-12-2024 EPINEPHrine (EPIPEN) 0.3 mg/0.3 mL AtIn Inject 0.3 mL (0.3 mg total) into the mid-thigh as needed for severe allergic reaction. . 1 each 09/17/2023 05/12/2024 Discontinued famotidine 20 mg oral tablet (6 sources) Histamine-2 Receptor Antagonist Start: 09-17-2023 End: 05-12-2024 take 1 tablet by mouth twice daily famotidine (PEPCID) 20 MG tablet Take 1 (one) tablet (20 mg total) by mouth 2 (two) times a day for 7 days . 14 tablet 09/17/2023 05/12/2024 Discontinued 1 ml fentaNYL 0.05 mg/ml injection (1 source) Opioid Agonist Start: 09-07-2024 End: 09-07-2024 25 mcg, Intravenous, Every 5 min PRN, Pain, Starting on Ileana 09/07/24 at 1415, For 4 doses, PACU (only), [] Do not give more than 100 mcg while in PACU. ferrous sulfate 325 mg oral tablet (5 sources) Start: 12-09-2021 End: 01-08-2022 take 1 tablet by mouth three times daily at mealtime ferrous sulfate 325 (65 FE) MG tablet Take 1 (one) tablet (325 mg total) by mouth 3 (three) times a day with meals . 90 tablet 0 12/09/2021 12/25/2021 Discontinued (Therapy completed) fluticasone propionate 0.05 mg/actuat metered dose nasal spray (20 sources) Corticosteroid Start: 08-25-2023 Flonase 0.05 mg/inh Campbell 50 mcg, 1 spray(s), Nasal, BID, 1 EA, Refill(s) 11, each nostril, [facility] #[id number], 183, cm, 05/05/23 9:03:00 EST, Height/Length Dosing, 100.5, kg, 05/05/23 9:03:00 EST, Weight Dosing Start Date: 08/25/23 Status: Ordered Start: 05-05-2023 Flonase 0.05 m g/inh Campbell 50 mcg, 1 spray(s), Nasal, BID, 1 EA, Refill(s) 0, each nostril, [facility] #[id number], 183, cm, 05/05/23 9:03:00 EST, Height/Length Dosing, 100.5, kg, 05/05/23 9:03:00 EST, Weight Dosing Start Date: 05/05/23 Status: Ordered Start: 10-05-2022 take 1 spray(s) nasa l route twice daily Flonase 0.05 mg/inh Campbell 1 spray(s), Nasal, BID, Refill(s) 0, each nostril Start Date: 10/05/22 Status: Ordered Start: 09-28-2022 End: 09-28-2023 fluticasone (FLONASE) 50 MCG /ACT nasal spray 2 sprays by Nasal route daily 0 09/28/2022 09/28/2023 Active Start: 07-01-2022 End: 05-12-2024 take 2 spray(s) nasal route once daily fluticasone propionate (FLONASE) 50 mcg/actuation nasal spray Instill 2 (two) sprays into each nostril daily . 16 g 11 12/15/2022 05/12/2024 Discontinued Start: 12-24-2015 End: 10-28-2017 fluticasone (FLONASE) 50 mcg/actuation nasal spray 1 spray daily. 0 12/24/2015 10/28/2017 Discontinued folic acid 1 mg oral tablet (6 sources) Start: 06-19-2019 End: 09-30-2020 take 1 tablet by mouth once daily folic acid (FOLVITE) 1 MG tablet Take 1 (one) tablet (1 mg total) by mouth daily Start: 06/27/19. 30 tablet 0 06/27/2019 09/30/2020 Discontinued (Patient's Request) furosemide 20 mg oral tablet (5 sources) Loop Diuretic Start: 12-10-2021 End: 01-09-2022 take 1 tablet by mouth once daily furosemide (LASIX) 20 MG tablet Take 1 (one) tablet (20 mg total) by mouth daily Start: 12/10/21. 30 tablet 0 12/10/2021 12/25/2021 Discontinued (Therapy completed) gabapentin 400 mg oral capsule (20 sources) Anti-epileptic Agent Start: 09-06-2024 End: 09-11-2024 take 10 mL by mouth every eight hours 800 mg, Oral, Every 8 hours scheduled, First dose on Wed09/06/24 at 2200, Capsule may be opened and contents placed down tube, flush tube with 10ml saline Start: 01-26-2024 take 1 tablet by raj th three times daily gabapentin 800 mg Tab 800 mg = 1 tab(s), Oral, TID, # 90 tab(s), Refills(s) 12, Pharmacy: [facility] #[id number], 183, cm, 01/26/24 13:02:00 EDT, Height/Length Dosing, 101.4, kg, 01/26/24 13:19:00 EDT, Weight Dosing Start Date: 08/28/24 Status: Ordered Quantity: 90.0 Unit: tab(s) Repeat number: 13 Start: 08-25-2022 End: 11-23-2022 take 1 tablet by mouth three times daily gabapentin (NEURONTIN) 800 MG tablet Take 1 (one) tablet (800 mg total) by mouth 3 (three) times a day . 90 tablet 2 08/25/2022 Active Start: 01-27-2022 take 1 tablet by raj th three times daily gabapentin (NEURONTIN) 800 MG tablet Take 1 (one) tablet (800 mg total) by mouth 3 (three) times a day . 0 01/27/2022 Suspended Start: 12-09-2021 End: 01-08-2022 take 2 capsules by mouth three times daily gabapentin (NEURONTIN) 300 MG capsule Take 2 (two) capsules (600 mg total) by mouth 3 (three) times a day (Days supply per fill: 30) . 180 capsule 0 12/09/2021 Active Start: 07-29-2021 take 1 tablet by [facility] [place] three times daily gabapentin (NEURONTIN) 600 MG tablet Take 600 mg by mouth 3 (three) times a day . 0 10/14/2021 Suspended gadoterate meglumine (DOTAREM) injection 19 mL (1 source) Start: 09-07-2024 End: 09-07-2024 19 mL, Intravenous, Once in imaging, contrast, Starting on Ileana 09/07/24 at 0839, For 1 dose 12 hr guaiFENesin 600 mg extended release oral tablet (20 sources) Start: 08-25-2022 End: 09-24-2022 take 1 tablet by mouth once guaiFENesin (MUCINEX) 600 mg 12 hr tablet Take 1 (one) tablet (600 mg total) by mouth every 12 (twelve) hours . 60 tablet 0 08/25/2022 09/24/2022 Start: 12-09-2021 End: 12-16-2021 take 1 tablet by mouth once guaiFENesin (MUCINEX) 600 mg 12 hr tablet Take 1 (one) tablet (600 mg total) by mouth every 12 (twelve) hours for 7 days . 14 tablet 0 12/09/2021 12/16/2021 Active Haloperidol (2 sources) Typical Antipsychotic Start: 06-19-2019 End: 06-26-2019 take 1 tablet by mouth every four hours as needed haloperidol (HALDOL) tablet 5 mg Start: 06-18-2019 End: 06-18-2019 haloperidol lactate (HALDOL) injection 5 mg homatropine methylbromide 0.3 mg/ml / HYDROcodone bitartrate 1 mg/ml oral solution (1 source) Opioid Agonist, Cholinergic Muscarinic Agonist Start: 01-20-2023 End: 01-20-2023 HYDROcodone homatropine (HYCODAN) 5-1.5 MG/5ML solution 5 mL Start: 01-20-2023 End: 01-20-2023 HYDROcodone homatropine (HYC ODAN) 5-1.5 MG/5ML solution 5 mL hydroCHLOROthiazide 25 mg oral tablet (1 source) Thiazide Diuretic End: 08-09-2020 take 1 tablet by mouth once daily hydroCHLOROthiazide (HYDRODIURIL) 25 MG tablet Take 25 mg by mouth daily 0 08/09/2020 Discontinued (Stop Taking at Discharge) hydroCHLOROthiazide 12.5 mg / lisinopril 20 mg oral tablet (20 sources) Thiazide Diuretic, Angiotensin Converting Enzyme Inhibitor Start: 10-07-2015 End: 09-30-2020 take 1 tablet by mouth once daily lisinopriL-hydrochlor othiazide (PRINZIDE,ZESTORETIC) 20-12.5 mg per tablet Take 1 (one) tablet by mouth daily . 30 tablet 3 04/29/2020 09/30/2020 Discontinued (Therapy completed) 0.5 ml HYDROmorphone hydrochloride 1 mg/ml prefilled syringe (3 sources) Opioid Agonist Start: 09-06-2024 End: 09-10-2024 take 0.25-0.5 mg intravenously every three hours as needed 0.25-0.5 mg, Intravenous, Every 3 hours PRN (may repeat), moderate to severe pain, Starting on Wed09/06/24 at 2021, Initiate with 0.25 mg IV every 3 hours prn moderate to severe pain. For unrelieved pain, may repeat 0.25 mg within 30 minutes of initial dose. If pain is RELIEVED after repeat dose, change to 0.5 mg every 3 hours prn moderate to severe pain. If pain is UNrelieved after repeat dose, or patient requires dose reduction, call physician. May use IV for breakthrough pain or if unable to tolerate enteral routes. Start: 07-07-2022 End: 07-07-2022 HYDROmorphone (DILAUDID) inj ection 0.5 mg hydrOXYzine hydrochloride 25 mg oral tablet (20 sources) Antihistamine Start: 04-06-2022 hydrOXYzine Pa moate 25 MG Oral Capsule 04/06/2022 Provider: Start: 04-06-2022 take 1 tablet by raj three times daily as needed for anxiety hydrOXYzine (ATARAX) 25 MG tablet Take 1 (one) tablet (25 mg total) by mouth 3 (three) times a day as needed for anxiety or itching . 0 04/06/2022 Suspended Start: 06-19-2019 End: 06-26-2019 take 1 tablet by mouth every six hours as needed 50 mg, Oral, Every 6 hours PRN, anxiety, Starting Wed06/19/19 at 1717 End: 10-28-2017 take 1 tablet by mouth once hydrOXYzine (ATARAX) 25 MG tablet Take 25 mg by mouth nightly. 10/28/2017 Discontinued iodixanol (VISIPAQUE) injection 320 mg/mL for [facility] (1 source) Start: 07-07-2022 End: 07-07-2022 iodixanol (VISIPAQUE) injection 320 mg/mL for [facility] iopamidol (ISOVUE-370) 76 % injection 75 mL (1 source) Start: 04-15-2019 End: 04-15-2019 iopamidol (ISOVUE-370) 76 % injection 75 mL iopamidol (ISOVUE-370) 76 % injection 80 mL (1 source) Start: 05-04-2022 End: 05-04-2022 iopamidol (ISOVUE-370) 76 % injection 80 mL 1 ml ketorolac tromethamine 30 mg/ml cartridge (6 sources) Nonsteroidal Anti-inflammatory Drug, Cyclooxygenase Inhibitor Start: 08-11-2024 End: 08-11-2024 15 mg, IntraVENous, Once, On Wed08/11/24 at 1450, For 1 dose Start: 04-29-2024 End: 05-12-2024 take 1 tablet by mouth three times daily as needed for pain ketorolac (TORADOL) 10 mg tablet Take 1 (one) tablet (10 mg total) by mouth 3 (three) times a day as needed for pain . 15 tablet 04/29/2024 05/12/2024 Discontinued Start: 12-15-2022 End: 12-20-2022 take 1 tablet by mouth every six hours as needed for pain ketorolac (TORADOL) 10 mg tablet Indications: Disruption of closure of sternum or sternotomy, subsequent encounter Take 1 (one) tablet (10 mg total) by mouth every 6 (six) hours as needed for pain . 20 tablet 0 12/15/2022 12/20/2022 Active Start: 12-07-2022 End: 12-12-2022 take 1 tablet by mouth every six hours as needed for pain ketorolac (TORADOL) 10 mg tablet Indications: Chest wall pain following surgery Take 1 (one) tablet (10 mg total) by mouth every 6 (six) hours as needed for pain . 20 tablet 0 12/07/2022 12/12/2022 Active Start: 02-28-2020 End: 02-28-2020 ketorolac (TORADOL) injectio n 60 mg lidocaine (6 sources) Antiarrhythmic, Amide Local Anesthetic Start: 09-06-2024 End: 09-06-2024 5 mL, Other, Once, On Wed09/06/24 at 1850, For 1 dose Start: 09-17-2016 End: 10-28-2017 GLYDO 2 % jelly PLEASE BRING THE MEDICATION WITH YOU TO YOUR APPOINTMENT 0 09/17/2016 10/28/2017 Discontinued Start: 09-17-2016 GLYDO 2 % jell y PLEASE BRING THE MEDICATION WITH YOU TO YOUR APPOINTMENT 0 09/17/2016 Active lisinopril (PRINIVIL,ZESTRIL) 20 mg, hydroCHLOROthiazide (HYDRODIURIL) 12.5 mg COMBO (1 source) Start: 06-19-2019 End: 06-26-2019 take 1 dose by mouth once daily Oral, Daily, First dose on Wed06/19/19 at 1815 LORazepam 1 mg oral tablet (2 sources) Benzodiazepine Start: 06-18-2019 End: 06-18-2019 LORazepam (ATIVAN) 1 MG tablet - ADS Override Pull Start: 06-18-2019 End: 06-18-2019 LORazepam (ATIVAN) tablet 2 mg losartan potassium 25 mg oral tablet (20 sources) Angiotensin 2 Receptor Keiry Start: 08-12-2022 End: 05-12-2024 take 1 tablet by mouth twice daily losartan (COZAAR) 25 MG tablet Take 1 (one) tablet (25 mg total) by mouth 2 (two) times a day . 60 tablet 2 08/25/2022 05/12/2024 Discontinued magic mouthwash oral suspension (1 source) Start: 06-20-2019 End: 06-26-2019 magic mouthwash oral suspension magnesium hydroxide 80 mg/ml oral suspension (1 source) Start: 06-19-2019 End: 06-26-2019 take 2400 mg by mouth once daily as needed for constipation 2,400 mg (30 mL), Oral, Daily PRN, constipation, constipation, Starting Wed06/19/19 at 1717 melatonin 3 mg oral tablet (1 source) Start: 09-06-2024 End: 09-11-2024 take 3 mg by mouth once daily as needed for sleep 3 mg, Oral, Nightly PRN, Sleep, Starting on Wed09/06/24 at 2021 1 ml methylprednisoLONE acetate 40 mg/ml injection (1 source) Corticosteroid Start: 08-26-2017 End: 08-26-2017 methylPREDNISolone acetate (DEPO-medrol) injection 40 mg 24 hr metoprolol succinate 25 mg extended release oral tablet (20 sources) beta-Adrenergic Keiry Start: 08-12-2022 End: 05-12-2024 take 0.5 tablet by mouth twice daily metoprolol succinate (TOPROL-XL) 25 MG 24 hr tablet Take 0.5 (one-half) tablet (12.5 mg total) by mouth 2 (two) times a day . 30 tablet 2 08/25/2022 05/12/2024 Discontinued Start: 07-11-2022 metoprolol suc cinate (TOPROL-XL) 25 MG 24 hr tablet Start: 06-10-2022 take 1 tablet by raj th once daily metoprolol 25 mg ER Tab 25 mg = 1 tab(s), Oral, Daily, # 90 tab(s), Refills(s) 3, Pharmacy: [facility]/pharmacy #[id number], 183, cm, 06/10/22 11:29:00 EST, Height/Length Dosing, 109, kg, 06/10/22 11:29:00 EST, Weight Dosing Start Date: 06/10/22 Status: Ordered Start: 04-06-2022 take 1 tablet by raj th every twenty-four hours Metoprolol Succinate ER 25 MG Oral Tablet Extended Release 24 Hour 04/06/2022 Provider: Start: 12-10-2021 End: 03-10-2022 take 0.5 tablet by mouth once daily metoprolol succinate (TOPROL-XL) 25 MG 24 hr tablet Take 0.5 (one-half) tablet (12.5 mg total) by mouth daily . 45 tablet 1 01/20/2022 Active Start: 11-24-2021 Lopressor 25 m g oral tablet Refills(s) 0 Start Date: 11/24/21 Status: Ordered Start: 11-19-2021 take 1 tablet by mouth once me toprolol tartrate (LOPRESSOR) 25 MG tablet Take 1 (one) tablet (25 mg total) by mouth once Take 12.5 mg (half tablet) evening before surgery for 1 dose . 1 tablet 0 11/19/2021 Suspended mirtazapine 15 mg oral tablet (6 sources) Start: 06-22-2019 End: 09-30-2020 take 1 tablet by mouth once daily mirtazapine (REMERON) 15 MG tablet Take 1 (one) tablet (15 mg total) by mouth nightly . 30 tablet 0 06/26/2019 09/30/2020 Discontinued (Therapy completed) montelukast 10 mg oral tablet (6 sources) Leukotriene Receptor Antagonist Start: 09-17-2023 End: 05-12-2024 take 1 tablet by mouth once daily montelukast (SINGULAIR) 10 mg tablet Take 1 (one) tablet (10 mg total) by mouth nightly for 7 days . 7 tablet 09/17/2023 05/12/2024 Discontinued 1 ml morphine sulfate 4 mg/ml cartridge (4 sources) Opioid Agonist Start: 09-06-2024 End: 09-06-2024 4 mg, Intravenous, Once, On Wed09/06/24 at 1815, For 1 dose Start: 08-11-2024 End: 08-11-2024 take 1 dose by mouth every hour 4 mg, IntraVENous, Once, On Wed08/11/24 at 1150, For 1 dose, If oral and injectable narcotics ordered, use oral first and only use injectable if oral is ineffective or cannot take oral. Do Not give oral and injectable within 1 hour of each other unless specifically ordered. Start: 10-21-2021 End: 10-21-2021 morphine (PF) injection 2 mg multivit-minerals/folic/gink go (DAILY MULTIPLE ORAL) (9 sources) take 1 tablet by mouth once daily multivit-minerals/folic/ginkgo (DAILY MULTIPLE ORAL) Take 1 tablet by mouth daily . 0 Suspended take 1 tablet by raj th once daily multivit-minerals/folic/ginkgo (DAILY MU LTIPLE ORAL) Take 1 tablet by mouth daily . 0 Active multivitamin (THERAGRAN) per tablet (2 sources) End: 10-30-2021 take 1 tablet by mouth once daily multivitamin (THERAGRAN) per tablet Take 1 tablet by mouth daily . 0 10/30/2021 Discontinued multivitamin (THERAGRAN) per tablet 1 tablet (1 source) Start: 06-19-2019 End: 06-26-2019 take 1 tablet by mouth once daily 1 tablet, Oral, Daily, First dose on 06/19/19 at 1700 naloxone (NARCAN) injection 0.1 mg (1 source) Start: 09-06-2024 End: 09-11-2024 naloxone (NARCAN) injection 0.1 mg 24 hr NIFEdipine 30 mg extended release oral tablet (20 sources) Dihydropyridine Calcium Channel Keiry Start: 09-07-2024 End: 09-11-2024 take 30 mg by mouth once daily 30 mg, Oral, Daily, First dose on Wed09/07/24 at 0900, Hold for SBP Start: 01-26-2024 take 1 tablet by raj th once daily NIFEdipine 30 mg ER Tab 30 mg = 1 tab(s), Oral, Daily, # 90 tab(s), Refills(s) 4, Pharmacy: [facility] #[id number], 183, cm, 01/26/24 13:02:00 EDT, Height/Length Dosing, 101.4, kg, 01/26/24 13:19:00 EDT, Weight Dosing Start Date: 01/26/24 Status: Ordered Quantity: 90.0 Unit: tab(s) Repeat number: 5 Start: 10-29-2023 take 1 tablet by raj th once daily NIFEdipine 30 mg ER Tab 30 mg = 1 tab(s), Oral, Daily, # 90 tab(s), Refills(s) 0, Pharmacy: [facility] #[id number], 183, cm, 10/28/23 14:20:00 EDT, Height/Length Dosing, 98.6, kg, 10/28/23 14:20:00 EDT, Weight Dosing Start Date: 10/29/23 Status: Ordered 10 actuat olodaterol 0.0025 mg/actuat / tiotropium 0.0025 mg/actuat inhalation spray (4 sources) Anticholinergic, beta2-Adrenergic Agonist Start: 04-03-2024 End: 05-12-2024 tiotropium-olodateroL (STIOLTO) 2.5-2.5 mcg/actuation Mist respimat inhaler Indications: Chronic obstructive pulmonary disease, unspecified COPD type (HCC) Inhale 2 (two) puffs daily . 4 g 11 04/19/2024 05/12/2024 Discontinued 2 ml ondansetron 2 mg/ml injection (3 sources) Serotonin-3 Receptor Antagonist Start: 08-11-2024 End: 08-11-2024 4 mg, IntraVENous, Once, On Wed08/11/24 at 1150, For 1 dose Start: 10-21-2021 End: 10-21-2021 ondansetron (ZOFRAN) injecti on 4 mg ondansetron (ZOFRAN-ODT) disintegrating tablet 4 mg (1 source) Start: 09-06-2024 End: 09-11-2024 take 1 tablet by mouth every six hours as needed for nausea and vomiting ondansetron (ZOFRAN-ODT) disintegrating tablet 4 mg 24 hr paliperidone 3 mg extended release oral tablet (1 source) Atypical Antipsychotic Start: 06-19-2019 End: 06-20-2019 paliperidone (INVEGA) 24 hr tablet 6 mg potassium bicarbonate 20 meq effervescent oral tablet (1 source) Start: 08-08-2020 End: 08-08-2020 potassium bicarb-citric acid (EFFER-K) effervescent tablet 40 mEq microencapsulated potassium chloride 20 meq extended release oral tablet (11 sources) Start: 12-10-2021 End: 01-09-2022 take 1 tablet by mouth once daily potassium chloride SA (K-DUR,KLOR-CON) 20 MEQ tablet Take 1 (one) tablet (20 mEq total) by mouth daily Start: 12/10/21. 30 tablet 0 12/10/2021 12/25/2021 Discontinued (Therapy completed) Start: 08-09-2020 End: 08-11-2020 take 1 tablet by mouth twice daily potassium chloride (KLOR-CON M) 10 MEQ extended release tablet Take 1 tablet by mouth 2 times daily for 4 doses 4 tablet 0 08/09/2020 08/11/2020 Active Start: 08-08-2020 End: 08-10-2020 potassium chloride (KLOR-CON M) extended release tablet 40 mEq Start: 08-08-2020 End: 08-08-2020 potassium chloride 10 mEq/10 0 mL IVPB (Peripheral Line) risperiDONE 2 mg oral tablet (6 sources) Atypical Antipsychotic Start: 06-19-2019 End: 06-26-2019 take 1 mg by mouth twice daily 1 mg, Oral, 2 times daily, First dose on Wed06/19/19 at 2100 May cause QT interval prolongation. End: 09-30-2020 take 1 tablet by mouth twice daily risperiDONE (RISPERDAL) 1 MG tablet Take 1 mg by mouth 2 (two) times a day . 0 09/30/2020 Discontinued (Therapy completed) rosuvastatin calcium 5 mg oral tablet (20 sources) HMG-CoA Reductase Inhibitor Start: 08-12-2022 End: 05-12-2024 take 1 tablet by mouth once daily rosuvastatin (CRESTOR) 5 MG tablet Take 1 (one) tablet (5 mg total) by mouth nightly . 30 tablet 2 08/25/2022 05/12/2024 Discontinued Sodium Chloride (15 sources) Start: 09-06-2024 End: 09-11-2024 sodium chloride (PF) (NS) flush 5 mL Start: 09-06-2024 End: 09-06-2024 1,000 mL, Irrigation, Once, On Wed09/06/24 at 1850, For 1 dose Start: 08-12-2022 End: 09-11-2022 sodium chloride (OCEAN) 0.65 % nasal spray [The details of the medication are not available because there are pending changes by a home health clinician.] 15 mL 12 08/12/2022 09/11/2022 Suspended Start: 07-07-2022 End: 07-07-2022 Sodium chloride 0.9% IV solu tion 75 mL Start: 08-08-2020 sodium chlorid e flush 0.9 % injection 10 mL Start: 08-08-2020 End: 08-08-2020 0.9 % sodium chloride bolus sodium chloride (PF) (NS) 0. 9 % contrast line flush 10 mL (2 sources) Start: 04-15-2019 End: 04-15-2019 sodium chloride (PF) (NS) 0. 9 % contrast line flush 10 mL Start: 04-15-2019 End: 04-15-2019 sodium chloride (PF) (NS) 0. 9 % contrast line flush 10 mL sulfamethoxazole 800 mg / trimethoprim 160 mg oral tablet (5 sources) Dihydrofolate Reductase Inhibitor Antibacterial, Sulfonamide Antimicrobial Start: 09-05-2024 End: 09-15-2024 take 1 tablet by mouth twice daily sulfamethoxazole-trimethoprim (BACTRIM DS,SEPTRA DS) 800-160 mg per tablet Take 1 (one) tablet by mouth 2 (two) times a day for 10 days . 20 tablet 09/05/2024 09/11/2024 Discontinued (Stop Taking at Discharge) thiamine 100 mg oral tablet (1 source) Start: 06-19-2019 End: 06-21-2019 take 200 mg by mouth once daily 200 mg, Oral, Daily, First dose on Wed06/19/19 at 1700, For 3 doses topiramate 50 mg oral tablet (2 sources) Start: 04-29-2020 End: 04-29-2021 take 1 tablet by mouth twice daily topiramate (TOPAMAX) 50 MG tablet Take 1 (one) tablet (50 mg total) by mouth 2 (two) times a day . 60 tablet 3 04/29/2020 09/30/2020 Discontinued (Therapy completed) 30 actuat umeclidinium 0.0625 mg/actuat / vilanterol 0.025 mg/actuat dry powder inhaler (4 sources) Anticholinergic , beta2-Adrenergi c Agonist Start: 02-07-2024 End: 05-12-2024 take 1 puff(s) by inhalation once daily umeclidinium-vilanteroL 62.5-25 mcg/actuation DsDv Inhale 1 puff daily . 1 each 1 02/07/2024 05/12/2024 Discontinued UNKNOWN TO PATIENT (1 source) End: 08-02-2020 300 ml vancomycin 5 mg/ml injection (1 source) Glycopeptide Antibacterial Start: 09-07-2024 End: 09-08-2024 take 1500 mg intravenousl y every twenty-four hours 1,500 mg, Intravenous, at 200 mL/hr, Every 24 hours, First dose on Wed09/07/24 at 0600, Please note start time of 0600 on , 09-07-24, Indication: Skin/Soft Tissue Infection Problems Active Problems Problem Classification Problem Date Documented Da te Episodic/Chronic Acute and unspecified renal failure (2 sources) Acute injury of kidney; Translations: [KP (acute kidney injury) (HCC)] Onset: 08-08-2020 08-08-2020 Alcohol-related disorders (20 sources) Alcohol abuse; Translations: [Alcohol abuse, uncomplicated] Onset: 06-19-2019 Resolved: 09-30-2020 06-19-2019 Chronic Anxiety disorders (15 sources) Anxiety disorder; Translations: [Other specified anxiety disorders] Onset: 06-10-2022 Chronic Patel (3 sources) Partial thickness burn of multiple sites of hand; Translations: [Burn of second degree of multiple right fingers (nail), including thumb, sequela] Onset: 09-05-2024 09-06-2024 Episodic Cardiac dysrhythmias (20 sources) Atrial fibrillation; Translations: [Unspecified atrial fibrillation] Onset: 12-29-2021 Chronic Chronic obstructive pulmonary disease and bronchiectasis (20 sources) Chronic obstructive lung disease; Translations: [Chronic obstructive pulmonary disease, unspecified] Onset: 07-13-2022 Chronic Conditions associated with dizziness or vertigo (6 sources) Dizziness and giddiness; Translations: [Dizziness and giddiness] Onset: 01-26-2024 Episodic Coronary atherosclerosis and other heart disease (20 sources) Coronary arteriosclerosis; Translations: [Coronary atherosclerosis] Onset: 07-13-2016 07-13-2016 Chronic Diseases of white blood cells (3 sources) Leukocytosis; Translations: [Elevated white blood cell count, unspecified] Onset: 09-06-2024 09-06-2024 Chronic Disorders of lipid metabolism (20 sources) Hyperlipidemia; Translations: [Hyperlipidemia, unspecified] Onset: 07-13-2016 07-13-2016 Chronic Essential hypertension (20 sources) Hypertensive disorder; Translations: [Essential hypertension] Onset: 07-13-2016 07-13-2016 Chronic Headache; including migraine (2 sources) Headache; Translations: [Acute headache] 09-06-2024 Episodic Headache; including migraine (2 sources) Headache; including migraine; Translations: [Headache, unspecified] Onset: 09-06-2024 Hyperplasia of prostate (16 sources) Benign prostatic hypertrophy without outflow obstruction; Translations: [Benign prostatic hyperplasia without lower urinary tract symptoms] Onset: 06-10-2022 Chronic Mood disorders (20 sources) Major depressive disorder, single episode, mild; Translations: [Severe recurrent major depression] Onset: 04-17-2019 04-17-2019 Chronic Noninfectious gastroenteritis (1 source) Noninfective gastroenteritis and colitis, unspecified; Translations: [Noninfective gastroenteritis and colitis, unspecified] Onset: 01-28-2023 Episodic Occlusion or stenosis of precerebral arteries (5 sources) Carotid artery occlusion; Translations: [Occlusion and stenosis of left carotid artery] Onset: 01-26-2024 Chronic Osteoarthritis (20 sources) Degenerative joint disease of shoulder region; Translations: [Post-traumatic osteoarthritis, unspecified shoulder] Onset: 01-03-2016 01-03-2016 Chronic Other aftercare (2 sources) Encounter for other specified surgical aftercare; Translations: [Encounter for other specified surgical aftercare] Onset: 08-11-2022 Episodic Other connective tissue disease (1 source) Muscle spasm of cervical muscle of neck; Translations: [Other muscle spasm] Episodic Other connective tissue disease (1 source) Spasm; Translations: [Cramp and spasm] Onset: 10-28-2023 Episodic Other connective tissue disease (4 sources) Cramp in lower limb 10-28-2023 Episodic Other connective tissue disease (1 source) H/O: arthrodesis; Translations: [Arthrodesis status] Onset: 01-26-2024 Episodic Other connective tissue disease (2 sources) Hand pain; Translations: [Hand Pain] Onset: 09-06-2024 Episodic Other connective tissue disease (6 sources) Tendonitis of right shoulder; Translations: [Right shoulder tendonitis] Onset: 11-06-2015 11-06-2015 Other ear and sense organ disorders (1 source) Otalgia of right ear; Translations: [Right ear pain] Other fractures (1 source) Fracture of multiple ribs ; Translations: [Multiple fractures of ribs, left side, subsequent encounter for fracture with nonunion] Onset: 07-13-2022 Episodic Other fractures (13 sources) Fracture of two ribs 06-18-2022 Episodic Other fractures (12 sources) Fracture of sternum 01-11-2023 Episodic Other gastrointestinal disorders (1 source) Dysphagia; Translations: [Dysphagia, unspecified] Episodic Other injuries and conditions due to external causes (1 source) Injury of ribs; Translations: [Unspecified injury of thorax, initial encounter] Episodic Other injuries and conditions due to external causes (1 source) Injury of right knee; Translations: [Unspecified injury of right lower leg, initial encounter] Episodic Other injuries and conditions due to external causes (1 source) Elevated urine levels of drugs, medicaments and biological substances; Translations: [Elevated urine levels of drugs, medicaments and biological substances] Onset: 04-17-2023 Episodic Other injuries and conditions due to external causes (1 source) Foreign body in eye; Translations: [Foreign body on external eye, part unspecified, unspecified eye, initial encounter] 09-06-2024 Episodic Other injuries and conditions due to external causes (2 sources) Foreign body on external eye, part unspecified, unspecified eye, initial encounter; Translations: [Foreign body on external eye, part unspecified, unspecified eye, initial encounter] Onset: 09-06-2024 Episodic Other lower respiratory disease (1 source) H/O: respiratory disease; Translations: [Personal history of other diseases of the respiratory system] Episodic Other lower respiratory disease (2 sources) Chronic cough; Translations: [Chronic cough] Episodic Other male genital disorders (12 sources) Impotence 10-05-2022 Chronic Other nervous system disorders (20 sources) Carpal tunnel syndrome, left upper limb; Translations: [Ulnar neuropathy] Onset: 09-24-2016 09-24-2016 Chronic Other nervous system disorders (20 sources) Ulnar neuropathy; 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 nerve, unspecified upper limb] Onset: 09-24-2016 09-24-2016 Chronic Other nervous system disorders (2 sources) Other chronic pain; Translations: [Other chronic pain] Onset: 04-29-2024 Chronic Other nervous system disorders (2 sources) Difficulty in walking, not elsewhere classified; Translations: [Difficulty in walking, not elsewhere classified] Onset: 09-06-2024 Chronic Other nervous system disorders (1 source) Paresthesia of foot ; Translations: [Paresthesia of skin] Episodic Other nervous system disorders (6 sources) Carpal tunnel syndrome of left wrist; Translations: [Carpal tunnel syndrome on left] Onset: 09-24-2016 09-24-2016 Other non-traumatic joint disorders (1 source) Arthritis of hip; Translations: [Hip arthritis] Chronic Other non-traumatic joint disorders (1 source) Arthritis of right hip 01-22-2025 Chronic Other nutritional; endocrine; and metabolic disorders (3 sources) Obesity; Translations: [Other obesity] Onset: 08-29-2020 08-29-2020 Chronic Other nutritional; endocrine; and metabolic disorders (2 sources) Obese class I; Translations: [Body mass index (BMI) 31.0-31.9, adult] Onset: 01-11-2023 Chronic Other nutritional; endocrine; and metabolic disorders (1 source) Morbid obesity; Translations: [Morbid (severe) obesity due to excess calories] Onset: 05-05-2023 Chronic Other nutritional; endocrine; and metabolic disorders (2 sources) Overweight; Translations: [Overweight] Onset: 10-28-2023 Episodic Other nutritional; endocrine; and metabolic disorders (2 sources) Overweight in adulthood with body mass index of 25 or more but less than 30; Translations: [Body mass index (BMI) 29.0-29.9, adult] Onset: 10-28-2023 Episodic Other screening for suspected conditions (not mental disorders or infectious disease) (4 sources) Patient encounter status; Translations: [Encounter for screening for malignant neoplasm of colon] Episodic Other upper respiratory disease (1 source) Hoarse; Translations: [Dysphonia] Episodic Peripheral and visceral atherosclerosis (2 sources) Peripheral vascular disease, unspecified; Translations: [Peripheral vascular disease, unspecified] Chronic Pneumonia (except that caused by tuberculosis or sexually transmitted disease) (1 source) Infective pneumonia; Translations: [Pneumonia of both lower lobes due to infectious organism] Episodic Residual codes; unclassified (1 source) Pain; Translations: [Pain, unspecified] Episodic Screening and history of mental health and substance abuse codes (19 sources) Tobacco use and exposure - finding; Translations: [Personal history of nicotine dependence] Onset: 01-27-2022 Episodic Spondylosis; intervertebral disc disorders; other back problems (20 sources) Cervical arthritis; Translations: [Spondylosis without myelopathy or radiculopathy, cervical region] Onset: 11-24-2017 11-24-2017 Chronic Substance-related disorders (20 sources) Cocaine abuse; Translations: [Cocaine dependence] Onset: 10-28-2017 Resolved: 09-30-2020 10-28-2017 Chronic Suicide and intentional self-inflicted injury (3 sources) Suicidal ideations; Translations: [Suicidal ideations] Onset: 04-17-2023 Episodic Unclassified (18 sources) Tobacco user; Translations: [Tobacco abuse] Onset: 10-28-2017 10-28-2017 Chronic Unclassified (1 source) Contusion of left knee; Translations: [Contusion of left knee] Onset: 02-09-2013 Unclassified (17 sources) History of lumbar fusion 07-29-2021 Unclassified (1 source) Contact with and (suspected) exposure to covid-19; Translations: [Contact with and (suspected) exposure to covid-19] Onset: 04-17-2023 Unclassified (1 source) Low back pain, unspecified; Translations: [Low back pain, unspecified] Onset: 06-27-2024 Unclassified (1 source) Unspecified synovitis and tenosynovitis, unspecified hand; Translations: [Unspecified synovitis and tenosynovitis, unspecified hand] Onset: 09-06-2024 Viral infection (1 source) Disease caused by 2019-nCoV; Translations: [COVID-19] Episodic Viral infection (1 source) COVID-19; Translations: [COVID-19] Onset: 01-28-2023 Past or Other Problems Problem Classification Problem Date Documented Date Episodic/Chronic Acute and unspecified renal failure (20 sources) Acute injury of kidney; Translations: [Acute kidney failure, unspecified] Onset: 08-08-2020 Episodic Administrative/social admission (20 sources) Homeless; Translations: [Homelessness] Onset: 06-19-2019 Resolved: 09-30-2020 06-19-2019 Episodic Allergic reactions (1 source) Contact dermatitis; Translations: [Contact dermatitis, unspecified contact dermatitis type, unspecified trigger] Episodic Complications of surgical procedures or medical care (20 sources) Finding of sternum structure; Translations: [Other intraoperative and postprocedural complications and disorders of the musculoskeletal system] Onset: 05-24-2022 Episodic Disorders of teeth and jaw (2 sources) Dental caries; Translations: [Toothache] Episodic E Codes: Fall (3 sources) Fall; Translations: [Unspecified fall, initial encounter] Onset: 07-07-2022 Episodic Fluid and electrolyte disorders (20 sources) Hypokalemia; Translations: [Hypervolemia] Onset: 12-29-2021 Episodic Mood disorders (20 sources) Mood disorders; Translations: [Depression, unspecified] Onset: 04-17-2023 Nonspecific chest pain (20 sources) Chest pain; Translations: [Chest pain, unspecified] Onset: 12-31-2021 Episodic Other acquired deformities (20 sources) Spondylolisthesis; Translations: [Spondylolisthesis, site unspecified] Onset: 12-16-2019 09-30-2020 Episodic Other aftercare (20 sources) Surgical follow-up; Translations: [Encounter for other specified surgical aftercare] Onset: 08-06-2022 08-06-2022 Episodic Other aftercare (16 sources) Dehiscence of surgical wound; Translations: [Disruption of closure of sternum or sternotomy, subsequent encounter] Onset: 08-18-2022 08-31-2022 Episodic Other connective tissue disease (20 sources) Full thickness rotator cuff tear; Translations: [Other shoulder lesions, right shoulder] Onset: 09-12-2015 09-10-2016 Episodic Other connective tissue disease (20 sources) Impingement syndrome of shoulder region; Translations: [Impingement syndrome of unspecified shoulder] Onset: 06-25-2016 06-25-2016 Episodic Other connective tissue disease (20 sources) Other shoulder lesions, right shoulder; Translations: [Tendonitis of right shoulder] Onset: 11-06-2015 11-06-2015 Episodic Other connective tissue disease (20 sources) Disorder of shoulder; Translations: [Impingement syndrome of unspecified shoulder] Onset: 06-25-2016 06-25-2016 Episodic Other fractures (20 sources) Closed fracture of sternum; Translations: [Unspecified fracture of sternum, initial encounter for closed fracture] Onset: 08-31-2022 Episodic Other fractures (1 source) Closed fracture of three ribs; Translations: [Multiple fractures of ribs, left side, initial encounter for closed fracture] Onset: 05-24-2022 05-24-2022 Episodic Other infections; including parasitic (18 sources) Personal history of other infectious and parasitic diseases; Translations: [Personal history of COVID-19] Onset: 02-07-2024 02-07-2024 Episodic Other injuries and conditions due to external causes (2 sources) Unspecified injury of thorax, initial encounter; Translations: [Unspecified injury of thorax, initial encounter] Onset: 07-07-2022 Episodic Other injuries and conditions due to external causes (2 sources) Unspecified injury of right lower leg, initial encounter; Translations: [Unspecified injury of right lower leg, initial encounter] Onset: 07-07-2022 Episodic Other injuries and conditions due to external causes (2 sources) Angioneurotic edema, initial encounter; Translations: [Angioneurotic edema, initial encounter] Onset: 09-17-2023 Episodic Other lower respiratory disease (4 sources) Dyspnea on exertion; Translations: [Dyspnea, unspecified] Onset: 08-29-2020 08-29-2020 Episodic Other lower respiratory disease (1 source) Other forms of dyspnea; Translations: [Other forms of dyspnea] Onset: 08-29-2020 Episodic Other lower respiratory disease (1 source) Personal history of other diseases of the respiratory system; Translations: [Personal history of other diseases of the respiratory system] Onset: 01-25-2023 Episodic Other lower respiratory disease (19 sources) Dyspnea; Translations: [Shortness of breath] Onset: 02-07-2024 02-07-2024 Episodic Other lower respiratory disease (1 source) Shortness of breath; Translations: [Shortness of breath] Onset: 02-07-2024 Episodic Other non-traumatic joint disorders (20 sources) Pain in elbow; Translations: [Impingement syndrome of shoulder region] Onset: 06-25-2016 08-26-2017 Episodic Other upper respiratory infections (3 sources) Pharyngitis; Translations: [Acute pharyngitis, unspecified] Onset: 01-20-2023 Episodic Residual codes; unclassified (20 sources) Tobacco user; Translations: [Tobacco use] Onset: 10-28-2017 10-28-2017 Episodic Skin and subcutaneous tissue infections (18 sources) Cellulitis; Translations: [Cellulitis of right thumb] Onset: 09-06-2024 09-06-2024 Episodic Spondylosis; intervertebral disc disorders; other back problems (20 sources) Neck pain; Translations: [Backache] Onset: 11-11-2016 11-11-2016 Episodic Substance-related disorders (20 sources) Psychoactive substance-induced organic mood disorder; Translations: [Other psychoactive substance use, unspecified with psychoactive substance-induced mood disorder] Onset: 06-19-2019 06-20-2019 Episodic Superficial injury; contusion (1 source) Contusion of left knee; Translations: [Contusion of left knee, initial encounter] Onset: 02-09-2013 Episodic Unclassified (1 source) Onset: 07-07-2022 07-07-2022 Unclassified (1 source) Low back pain, unspecified; Translations: [Low back pain, unspecified] Onset: 06-27-2024 Unclassified (1 source) Unspecified synovitis and tenosynovitis, unspecified hand; Translations: [Unspecified synovitis and tenosynovitis, unspecified hand] Onset: 09-06-2024 Unclassified (1 source) Patient encounter status 01-16-2025 Results Test Name Value Interpretation Reference Range Facility BASIC METABOLIC PANELon 08-16 Anion gap [Moles/Vol] 14 mmol/L Normal 10-20 [facility] Comment on above: Order Comment: [facility] has implemented the eGFR calculation approach that does not have a coefficient for race that conforms to the NKF-ASN Task Force Recommendations. Performed By: #### [id number] #### [facility] [address] [place], [place] [id number] Berhane Mcclure M.D. [id number] Calcium [Mass/Vol] 9.4 mg/dL Normal 8.4-10.2 [facility] Comment on above: Order Comment: [facility] has implemented the eGFR calculation approach that does not have a coefficient for race that conforms to the NKF-ASN Task Force Recommendations. Performed By: #### [id number] #### [facility] [address] [place], [place] [id number] Berhane Mcclure M.D. [id number] Chloride [Moles/Vol] 106 mmol/L Normal 98-108 [facility] Comment on above: Order Comment: [facility] has implemented the eGFR calculation approach that does not have a coefficient for race that conforms to the NKF-ASN Task Force Recommendations. Performed By: #### [id number] #### [facility] [address] [place] [address] Berhane Mcclure M.D. [id number] Creatinine [Mass/Vol] 0.84 mg/dL Normal 0.80-1.30 [facility] Comment on above: Order Comment: [facility] has implemented the eGFR calculation approach that does not have a coefficient for race that conforms to the NKF-ASN Task Force Recommendations. Performed By: #### [id number] #### [facility] [address] [place] [address] Berhane Mcclure M.D. [id number] EGFR 96 mL/min/1.73 m2 Normal >=60 [facility] Comment on above: Order Comment: [facility] has implemented the eGFR calculation approach that does not have a coefficient for race that conforms to the NKF-ASN Task Force Recommendations. Result Comment: Rosanne mated GFR was calculated using the 2020 CKD-EPI creatinine equation. Performed By: #### [id number] #### [facility] [address] [place], [place] [id number] Berhane Mcclure M.D. [id number] Glucose [Mass/Vol] 95 mg/dL Normal 65-99 [facility] Comment on above: Order Comment: [facility] has implemented the eGFR calculation approach that does not have a coefficient for race that conforms to the NKF-ASN Task Force Recommendations. Performed By: #### [id number] #### [facility] [address] [place], [place] [id number] Berhane Mcclure M.D. [id number] HCO3 (Bld) [Moles/Vol] 24 mmol/L Normal 21-32 [facility] Comment on above: Order Comment: [facility] has implemented the eGFR calculation approach that does not have a coefficient for race that conforms to the NKF-ASN Task Force Recommendations. Performed By: #### [id number] #### [facility] [address] [place], [place] [address] Berhane Mcclure M.D. [id number] Potassium [Moles/Vol] 4.4 mmol/L Normal 3.5-5.1 [facility] Comment on above: Order Comment: [facility] has implemented the eGFR calculation approach that does not have a coefficient for race that conforms to the NKF-ASN Task Force Recommendations. Result Comment: Alejandrina mcclelland Hemolyzed Performed By: #### [id number] #### [facility] [address] [place] [address] Berhane Mcclure M.D. [id number] Sodium [Moles/Vol] 140 mmol/L Normal 135-145 [facility] Comment on above: Order Comment: [facility] has implemented the eGFR calculation approach that does not have a coefficient for race that conforms to the NKF-ASN Task Force Recommendations. Performed By: #### [id number] #### [facility] [address] [place] [address] Berhane Mcclure M.D. [id number] Urea nitrogen [Mass/Vol] 16 mg/dL Normal 8-25 [facility] Comment on above: Order Comment: [facility] has implemented the eGFR calculation approach that does not have a coefficient for race that conforms to the NKF-ASN Task Force Recommendations. Performed By: #### [id number] #### [facility] [address] [place] [address] Berhane Mcclure M.D. [id number] Urea nitrogen/Creatinine [Mass ratio] 19.0 mg/mg Normal 10.0-20.0 [facility] Comment on above: Order Comment: [facility] has implemented the eGFR calculation approach that does not have a coefficient for race that conforms to the NKF-ASN Task Force Recommendations. Performed By: #### [id number] #### [facility] [address] [place] [address] Berhane Mcclure M.D. [id number] Basic metabolic 2000 panelOr dered By: Zhanna Richmond on 09-11-2024 Anion gap [Moles/Vol] 14 mmol/L 10 - 20 mmol/L [facility] Calcium [Mass/Vol] 9.4 mg/dL 8.4 - 10. 2 mg/dL [facility] Chloride [Moles/Vol] 106 mmol/L 98 - 10 8 mmol/L [facility] Creatinine [Mass/Vol] 0.84 mg/dL 0.80 - 1.30 mg/dL [facility] GFR/1.73 sq M.predicted CKD-EPI (S/P/Bld) [Vol rate/Area] 96 - PINF [facility] Comment on above: Estimated GFR was ca lculated using the 2020 CKD-EPI creatinine equation. Glucose [Mass/Vol] 95 mg/dL 65 - 99 mg/dL [facility] HCO3 [Moles/Vol] 24 mmol/L 21 - 32 mmol/L [facility] Interpretation and review of laboratory results Normal [facility] Potassium [Moles/Vol] 4.4 mmol/L 3.5 - 5.1 mmol/L [facility] Comment on above: Slightly Hemolyzed Sodium [Moles/Vol] 140 mmol/L 135 - 145 mmol/L [facility] Urea nitrogen [Mass/Vol] 16 mg/dL 8 - 25 mg/dL [facility] Urea nitrogen/Creatinine [Mass ratio] 19 mg/mg 10.0 - 20.0 [facility] has implemented the eGFR calculation approach that does not have a coefficient for race that conforms to the NKF-ASN Task Force Recommendations. [facility] CBCon 09-11-2024 AUTO NRBC 0.0 % Normal [facility] Comment on above: Performed By: #### [id number] #### [facility] [address] [place], [place] [id number] Berhane Mcclure M.D. [id number] AUTO NRBC ABS COUNT 0.00 K/mcL Normal 0.00-0.00 [facility] Comment on above: Performed By: #### [id number] #### [facility] [address] [place] [address] Berhane Mcclure M.D. [id number] Erythrocyte distribution width (RBC) [Ratio] 13.9 % Normal 11.6-14.8 [facility] Comment on above: Performed By: #### [id number] #### [facility] [address] [place], [place] [address] Berhane Mcclure M.D. [id number] Hematocrit (Bld) [Volume fraction] 46.8 % Normal 41.0-53.0 [facility] Comment on above: Performed By: #### [id number] #### [facility] [address] [place] [address] Berhane Mcclure M.D. [id number] Hemoglobin (Bld) [Mass/Vol] 15.1 g/dL Normal 13.5-17.5 [facility] Comment on above: Performed By: #### [id number] #### [facility] [address] [place] [address] Berhane Mcclure M.D. [id number] MCH (RBC) [Entitic mass] 29.4 pg Normal 26.0-34.0 [facility] Comment on above: Performed By: #### [id number] #### [facility] [address] [place] [address] Berhane Mcclure M.D. [id number] MCV (RBC) [Entitic vol] 91.1 fL Normal 80.0-100.0 [facility] Comment on above: Performed By: #### [id number] #### [facility] [address] [place], [place] [address] Berhane Mcclure M.D. [id number] MEAN CORPUSCULAR HEMOGLOBIN CONC 32.3 g/dL Normal 31.0-37.0 [facility] Comment on above: Performed By: #### [id number] #### [facility] [address] [place], [place] [address] Berhane Mcclure M.D. [id number] Platelet mean volume (Bld) [Entitic vol] 9.7 fL Normal 9.4-12.4 [facility] Comment on above: Performed By: #### [id number] #### [facility] [address] [place] [address] Berhane Mcclure M.D. [id number] Platelets (Bld) [#/Vol] 305 10*3/uL Normal 150-400 [facility] Comment on above: Performed By: #### [id number] #### [facility] [address] [place] [address] Berhane Mcclure M.D. [id number] RBC (Bld) [#/Vol] 5.14 10*6/uL Normal 4.50-5.90 [facility] Comment on above: Performed By: #### [id number] #### [facility] [address] [place] [address] Berhane Mcclure M.D. [id number] WBC (Bld) [#/Vol] 9.13 10*3/uL Normal 4.50-11.00 [facility] Comment on above: Performed By: #### [id number] #### [facility] [address] [place] [address] Berhane Mcclure M.D. [id number] CBC panel Auto (Bld)on 09-11 Erythrocyte distribution width (RBC) [Entitic vol] 13.9 % 11.6 - 14.8 % [facility] Hematocrit (Bld) [Volume fraction] 46.8 % 41.0 - 53.0 % [facility] Hemoglobin (Bld) [Mass/Vol] 15.1 g/dL 13.5 - 17.5 g/dL [facility] MCH (RBC) [Entitic mass] 29.4 pg 26.0 - 34.0 pg [facility] MCHC (RBC) [Mass/Vol] 32.3 g/dL 31.0 - 37.0 g/dL [facility] MCV (RBC) [Entitic vol] 91.1 fL 80.0 - 100.0 fL [facility] Nucleated RBC (Bld) [#/Vol] 0 10*3/uL [facility] Nucleated RBC/100 WBC (Bld) [Ratio] 0 % [facility] Platelet mean volume (Bld) [Entitic vol] 9.7 fL 9.4 - 12.4 fL [facility] Platelets (Bld) [#/Vol] 305 10*3/uL [facility] RBC (Bld) [#/Vol] 5.14 10*6/uL [facility] WBC (Bld) [#/Vol] 9.13 10*3/uL [facility] Wound Aerobic And Anaerobic CultureOrdered By: Annemarie Alva on 09-11-2024 Bacteria identified Aer cx Nom (Unsp spec) No Anaerobic Growth after 5 days [facility] Bacteria identified Aer cx Nom (Unsp spec) Light Growth Streptococcus pyogenes (Group A) Abnormal [facility] Interpretation and review of laboratory results Abnormal [facility] Microscopic observation Gram stain Nom (Unsp spec) No Organisms Seen [facility] Microscopic observation Gram stain Nom (Unsp spec) Few WBC [facility] Microscopic observation Gram stain Nom (Unsp spec) Many RBC [facility] BASIC METABOLIC PANELon 08-16 Anion gap [Moles/Vol] 14 mmol/L Normal 10-20 [facility] Comment on above: Order Comment: [facility] has implemented the eGFR calculation approach that does not have a coefficient for race that conforms to the NKF-ASN Task Force Recommendations. Performed By: #### [id number] #### [facility] [address] [place] [address] Berhane Mcclure M.D. [id number] Calcium [Mass/Vol] 9.4 mg/dL Normal 8.4-10.2 [facility] Comment on above: Order Comment: [facility] has implemented the eGFR calculation approach that does not have a coefficient for race that conforms to the NKF-ASN Task Force Recommendations. Performed By: #### [id number] #### [facility] [address] [place] [address] Berhane Mcclure M.D. [id number] Chloride [Moles/Vol] 103 mmol/L Normal 98-108 [facility] Comment on above: Order Comment: [facility] has implemented the eGFR calculation approach that does not have a coefficient for race that conforms to the NKF-ASN Task Force Recommendations. Performed By: #### [id number] #### [facility] [address] [place] [address] Berhane Mcclure M.D. [id number] Creatinine [Mass/Vol] 0.88 mg/dL Normal 0.80-1.30 [facility] Comment on above: Order Comment: [facility] has implemented the eGFR calculation approach that does not have a coefficient for race that conforms to the NKF-ASN Task Force Recommendations. Performed By: #### [id number] #### [facility] [address] [place], [place] [address] Berhane Mcclure M.D. [id number] EGFR 94 mL/min/1.73 m2 Normal >=60 [facility] Comment on above: Order Comment: [facility] has implemented the eGFR calculation approach that does not have a coefficient for race that conforms to the NKF-ASN Task Force Recommendations. Result Comment: Rosanne mated GFR was calculated using the 2020 CKD-EPI creatinine equation. Performed By: #### [id number] #### [facility] [address] [place] [address] Berhane Mcclure M.D. [id number] Glucose [Mass/Vol] 115 mg/dL High 65-99 [facility] Comment on above: Order Comment: [facility] has implemented the eGFR calculation approach that does not have a coefficient for race that conforms to the NKF-ASN Task Force Recommendations. Performed By: #### [id number] #### [facility] [address] [place], [place] [address] Berhane Mcclure M.D. [id number] HCO3 (Bld) [Moles/Vol] 26 mmol/L Normal 21-32 [facility] Comment on above: Order Comment: [facility] has implemented the eGFR calculation approach that does not have a coefficient for race that conforms to the NKF-ASN Task Force Recommendations. Performed By: #### [id number] #### [facility] [address] [place], [place] [address] Berhane Mcclure M.D. [id number] Potassium [Moles/Vol] 4.4 mmol/L Normal 3.5-5.1 [facility] Comment on above: Order Comment: [facility] has implemented the eGFR calculation approach that does not have a coefficient for race that conforms to the NKF-ASN Task Force Recommendations. Result Comment: Slig htly Hemolyzed Performed By: #### [id number] #### [facility] [address] [place] [address] Berhane Mcclure M.D. [id number] Sodium [Moles/Vol] 139 mmol/L Normal 135-145 [facility] Comment on above: Order Comment: [facility] has implemented the eGFR calculation approach that does not have a coefficient for race that conforms to the NKF-ASN Task Force Recommendations. Performed By: #### [id number] #### [facility] [address] [place], [place] [address] Berhane Mcclure M.D. [id number] Urea nitrogen [Mass/Vol] 14 mg/dL Normal 8-25 [facility] Comment on above: Order Comment: [facility] has implemented the eGFR calculation approach that does not have a coefficient for race that conforms to the NKF-ASN Task Force Recommendations. Performed By: #### [id number] #### [facility] [address] [place] [address] Berhane Mcclure M.D. [id number] Urea nitrogen/Creatinine [Mass ratio] 15.9 mg/mg Normal 10.0-20.0 [facility] Comment on above: Order Comment: [facility] has implemented the eGFR calculation approach that does not have a coefficient for race that conforms to the NKF-ASN Task Force Recommendations. Performed By: #### [id number] #### [facility] [address] [place] [address] Berhane Mcclure M.D. [id number] Basic metabolic 2000 panelOr dered By: Nicole Cobian on 09-10-2024 Anion gap [Moles/Vol] 14 mmol/L 10 - 20 mmol/L [facility] Calcium [Mass/Vol] 9.4 mg/dL 8.4 - 10. 2 mg/dL [facility] Chloride [Moles/Vol] 103 mmol/L 98 - 10 8 mmol/L [facility] Creatinine [Mass/Vol] 0.88 mg/dL 0.80 - 1.30 mg/dL [facility] GFR/1.73 sq M.predicted CKD-EPI (S/P/Bld) [Vol rate/Area] 94 - PINF [facility] Comment on above: Estimated GFR was ca lculated using the 2020 CKD-EPI creatinine equation. Glucose [Mass/Vol] 115 mg/dL High 65 - 99 mg/dL [facility] HCO3 [Moles/Vol] 26 mmol/L 21 - 32 mmol/L [facility] Interpretation and review of laboratory results Abnormal [facility] Potassium [Moles/Vol] 4.4 mmol/L 3.5 - 5.1 mmol/L [facility] Comment on above: Slightly Hemolyzed Sodium [Moles/Vol] 139 mmol/L 135 - 145 mmol/L [facility] Urea nitrogen [Mass/Vol] 14 mg/dL 8 - 25 mg/dL [facility] Urea nitrogen/Creatinine [Mass ratio] 15.9 mg/mg 10.0 - 20.0 [facility] has implemented the eGFR calculation approach that does not have a coefficient for race that conforms to the NKF-ASN Task Force Recommendations. [facility] CBCon 09-10-2024 AUTO NRBC 0.0 % Normal [facility] Comment on above: Performed By: #### [id number] #### [facility] [address] [place] [address] Berhane Mcclure M.D. [id number] AUTO NRBC ABS COUNT 0.00 K/mcL Normal 0.00-0.00 [facility] Comment on above: Performed By: #### 4 [id number] #### [facility] [address] [place] [address] 20295 Berhane Mcclure M.D. [id number] Erythrocyte distribution width (RBC) [Ratio] 13.9 % Normal 11.6-14.8 [facility] Comment on above: Performed By: #### 4 [id number] #### [facility] [address] [place], [place] [address] Berhane Mcclure M.D. [id number] Hematocrit (Bld) [Volume fraction] 46.2 % Normal 41.0-53.0 [facility] Comment on above: Performed By: #### 4 [id number] #### [facility] [address] [place] [address] Berhane Mcclure M.D. [id number] Hemoglobin (Bld) [Mass/Vol] 15.3 g/dL Normal 13.5-17.5 [facility] Comment on above: Performed By: #### 4 [id number] #### [facility] [address] [place], [place] [address] Berhane Mcclure M.D. [id number] MCH (RBC) [Entitic mass] 30.8 pg Normal 26.0-34.0 [facility] Comment on above: Performed By: #### 4 [id number] #### [facility] [address] [place], [place] [address] Berhane Mcclure M.D. [id number] MCV (RBC) [Entitic vol] 93.1 fL Normal 80.0-100.0 [facility] Comment on above: Performed By: #### 4 [id number] #### [facility] [address] [place], [place] [address] Berhane Mcclure M.D. [id number] MEAN CORPUSCULAR HEMOGLOBIN CONC 33.1 g/dL Normal 31.0-37.0 [facility] Comment on above: Performed By: #### 4 [id number] #### [facility] [address] [place], [place] [address] Berhane Mcclure M.D. [id number] Platelet mean volume (Bld) [Entitic vol] 10.2 fL Normal 9.4-12.4 [facility] Comment on above: Performed By: #### 4 [id number] #### [facility] [address] [place] [address] 8[address] Berhane Mcclure M.D. [id number] Platelets (Bld) [#/Vol] 298 10*3/uL Normal 150-400 [facility] Comment on above: Performed By: #### 4 [id number] #### [facility] [address] [place] [address] 65755 Berhane Mcclure M.D. [id number] RBC (Bld) [#/Vol] 4.96 10*6/uL Normal 4.50-5.90 [facility] Comment on above: Performed By: #### 4 [id number] #### [facility] [address] [place] [address] 26689 Berhane Mcclure M.D. [id number] WBC (Bld) [#/Vol] 9.34 10*3/uL Normal 4.50-11.00 [facility] Comment on above: Performed By: #### 4 [id number] #### [facility] [address] [place] [address] 89097 Berhane Mcclure M.D. [id number] CBC panel Auto (Bld)on 09-10 Erythrocyte distribution width (RBC) [Entitic vol] 13.9 % 11.6 - 14.8 % [facility] Hematocrit (Bld) [Volume fraction] 46.2 % 41.0 - 53.0 % [facility] Hemoglobin (Bld) [Mass/Vol] 15.3 g/dL 13.5 - 17.5 g/dL [facility] MCH (RBC) [Entitic mass] 30.8 pg 26.0 - 34.0 pg [facility] MCHC (RBC) [Mass/Vol] 33.1 g/dL 31.0 - 37.0 g/dL [facility] MCV (RBC) [Entitic vol] 93.1 fL 80.0 - 100.0 fL [facility] Nucleated RBC (Bld) [#/Vol] 0 10*3/uL [facility] Nucleated RBC/100 WBC (Bld) [Ratio] 0 % [facility] Platelet mean volume (Bld) [Entitic vol] 10.2 fL 9.4 - 12.4 fL [facility] Platelets (Bld) [#/Vol] 298 10*3/uL [facility] RBC (Bld) [#/Vol] 4.96 10*6/uL [facility] WBC (Bld) [#/Vol] 9.34 10*3/uL [facility] BASIC METABOLIC PANELon - Anion gap [Moles/Vol] 13 mmol/L Normal 10-20 [facility] Comment on above: Order Comment: [facility] Services has implemented the eGFR calculation approach that does not have a coefficient for race that conforms to the NKF-ASN Task Force Recommendations. Performed By: #### 4 [id number] #### [facility] [address] [place], [place] [address] Berhane Mcclure M.D. [id number] Calcium [Mass/Vol] 9.1 mg/dL Normal 8.4-10.2 [facility] Comment on above: Order Comment: [facility] has implemented the eGFR calculation approach that does not have a coefficient for race that conforms to the NKF-ASN Task Force Recommendations. Performed By: #### 4 [id number] #### [facility] [address] [place] [address] Berhane Mcclure M.D. [id number] Chloride [Moles/Vol] 107 mmol/L Normal 98-108 [facility] Comment on above: Order Comment: [facility] has implemented the eGFR calculation approach that does not have a coefficient for race that conforms to the NKF-ASN Task Force Recommendations. Performed By: #### 4 [id number] #### [facility] [address] [place], [place] [address] Berhane Mcclure M.D. [id number] Creatinine [Mass/Vol] 0.82 mg/dL Normal 0.80-1.30 [facility] Comment on above: Order Comment: [facility] has implemented the eGFR calculation approach that does not have a coefficient for race that conforms to the NKF-ASN Task Force Recommendations. Performed By: #### 4 [id number] #### [facility] [address] [place] [address] 9[address]65 Berhane Mcclure M.D. [id number] EGFR 96 mL/min/1.73 m2 Normal >=60 [facility] Comment on above: Order Comment: [facility] has implemented the eGFR calculation approach that does not have a coefficient for race that conforms to the NKF-ASN Task Force Recommendations. Result Comment: Rosanne mated GFR was calculated using the 2020 CKD-EPI creatinine equation. Performed By: #### 4 [id number] #### [facility] [address] [place] [address] 11726 Berhane Mcclure M.D. [id number] Glucose [Mass/Vol] 98 mg/dL Normal 65-99 [facility] Comment on above: Order Comment: [facility] has implemented the eGFR calculation approach that does not have a coefficient for race that conforms to the NKF-ASN Task Force Recommendations. Performed By: #### 4 [id number] #### [facility] [address] [place], [place] [address] Berhane Mcclure M.D. [id number] HCO3 (Bld) [Moles/Vol] 25 mmol/L Normal 21-32 [facility] Comment on above: Order Comment: [facility] has implemented the eGFR calculation approach that does not have a coefficient for race that conforms to the NKF-ASN Task Force Recommendations. Performed By: #### 4 [id number] #### [facility] [address] [place] [address] 64138 Berhane Mcclure M.D. [id number] Potassium [Moles/Vol] 4.2 mmol/L Normal 3.5-5.1 [facility] Comment on above: Order Comment: [facility] has implemented the eGFR calculation approach that does not have a coefficient for race that conforms to the NKF-ASN Task Force Recommendations. Result Comment: Slig htly Hemolyzed Performed By: #### 4 [id number] #### [facility] [address] [place] [address] 90938 Berhane Mcclure M.D. [id number] Sodium [Moles/Vol] 141 mmol/L Normal 135-145 [facility] Comment on above: Order Comment: [facility] has implemented the eGFR calculation approach that does not have a coefficient for race that conforms to the NKF-ASN Task Force Recommendations. Performed By: #### 4 [id number] #### [facility] [address] [place] [address]21 Berhane Mcclure M.D. [id number] Urea nitrogen [Mass/Vol] 13 mg/dL Normal 8-25 [facility] Comment on above: Order Comment: [facility] has implemented the eGFR calculation approach that does not have a coefficient for race that conforms to the NKF-ASN Task Force Recommendations. Performed By: #### 4 [id number] #### [facility] [address] [place] [address] Berhane Mcclure M.D. [id number] Urea nitrogen/Creatinine [Mass ratio] 15.9 mg/mg Normal 10.0-20.0 [facility] Comment on above: Order Comment: [facility] has implemented the eGFR calculation approach that does not have a coefficient for race that conforms to the NKF-ASN Task Force Recommendations. Performed By: #### 4 [id number] #### [facility] [address] [place] [address] 76910 Berhane Mcclure M.D. [id number] Basic metabolic 2000 panelOr dered By: Zoey Bhagat on 09-09-2024 Anion gap [Moles/Vol] 13 mmol/L 10 - 20 mmol/L [facility] Calcium [Mass/Vol] 9.1 mg/dL 8.4 - 10. 2 mg/dL [facility] Chloride [Moles/Vol] 107 mmol/L 98 - 10 8 mmol/L [facility] Creatinine [Mass/Vol] 0.82 mg/dL 0.80 - 1.30 mg/dL [facility] GFR/1.73 sq M.predicted CKD-EPI (S/P/Bld) [Vol rate/Area] 96 - PINF [facility] Comment on above: Estimated GFR was ca lculated using the 2020 CKD-EPI creatinine equation. Glucose [Mass/Vol] 98 mg/dL 65 - 99 mg/dL [facility] HCO3 [Moles/Vol] 25 mmol/L 21 - 32 mmol/L [facility] Interpretation and review of laboratory results Normal [facility] Potassium [Moles/Vol] 4.2 mmol/L 3.5 - 5.1 mmol/L [facility] Comment on above: Slightly Hemolyzed Sodium [Moles/Vol] 141 mmol/L 135 - 145 mmol/L [facility] Urea nitrogen [Mass/Vol] 13 mg/dL 8 - 25 mg/dL [facility] Urea nitrogen/Creatinine [Mass ratio] 15.9 mg/mg 10.0 - 20.0 [facility] has implemented the eGFR calculation approach that does not have a coefficient for race that conforms to the NKF-ASN Task Force Recommendations. [facility] CBCon 09-09-2024 AUTO NRBC 0.0 % Normal [facility] Comment on above: Performed By: #### 4 [id number] #### [facility] [address] [place], [place] [address] Berhane Mcclure M.D. [id number] AUTO NRBC ABS COUNT 0.00 K/mcL Normal 0.00-0.00 [facility] Comment on above: Performed By: #### 4 0807 #### [facility] [address] [place] [address] 81163 Berhane Mcclure M.D. [id number] Erythrocyte distribution width (RBC) [Ratio] 13.8 % Normal 11.6-14.8 [facility] Comment on above: Performed By: #### 4 [id number] #### [facility] [address] [place], [place] [address] Berhane Mcclure M.D. [id number] Hematocrit (Bld) [Volume fraction] 41.8 % Normal 41.0-53.0 [facility] Comment on above: Performed By: #### 4 [id number] #### [facility] [address] [place] [address] Berhane Mcclure M.D. [id number] Hemoglobin (Bld) [Mass/Vol] 13.7 g/dL Normal 13.5-17.5 [facility] Comment on above: Performed By: #### 4 [id number] #### [facility] [address] [place] [address] Berhane Mcclure M.D. [id number] MCH (RBC) [Entitic mass] 30.0 pg Normal 26.0-34.0 [facility] Comment on above: Performed By: #### 4 [id number] #### [facility] [address] [place] [address] Berhane Mcclure M.D. [id number] MCV (RBC) [Entitic vol] 91.7 fL Normal 80.0-100.0 [facility] Comment on above: Performed By: #### 4 [id number] #### [facility] [address] [place] [address] Berhane Mcclure M.D. [id number] MEAN CORPUSCULAR HEMOGLOBIN CONC 32.8 g/dL Normal 31.0-37.0 [facility] Comment on above: Performed By: #### 4 [id number] #### [facility] [address] [place], [place] [address] Berhane Mcclure M.D. [id number] Platelet mean volume (Bld) [Entitic vol] 10.3 fL Normal 9.4-12.4 [facility] Comment on above: Performed By: #### 4 [id number] #### [facility] [address] [place], [place] [address] Berhane Mcclure M.D. [id number] Platelets (Bld) [#/Vol] 237 10*3/uL Normal 150-400 [facility] Comment on above: Performed By: #### 4 [id number] #### [facility] [address] [place] [address] 43325 Berhane Mcclure M.D. [id number] RBC (Bld) [#/Vol] 4.56 10*6/uL Normal 4.50-5.90 [facility] Comment on above: Performed By: #### 4 [id number] #### [facility] [address] [place] [address] 22415 Berhane Mcclure M.D. [id number] WBC (Bld) [#/Vol] 9.05 10*3/uL Normal 4.50-11.00 [facility] Comment on above: Performed By: #### 4 [id number] #### [facility] [address] [place] [address] 07734 Berhane Mcclure M.D. [id number] CBC panel Auto (Bld)on 09-09 Erythrocyte distribution width (RBC) [Entitic vol] 13.8 % 11.6 - 14.8 % [facility] Hematocrit (Bld) [Volume fraction] 41.8 % 41.0 - 53.0 % [facility] Hemoglobin (Bld) [Mass/Vol] 13.7 g/dL 13.5 - 17.5 g/dL [facility] MCH (RBC) [Entitic mass] 30 pg 26.0 - 34.0 pg [facility] MCHC (RBC) [Mass/Vol] 32.8 g/dL 31.0 - 37.0 g/dL [facility] MCV (RBC) [Entitic vol] 91.7 fL 80.0 - 100.0 fL [facility] Nucleated RBC (Bld) [#/Vol] 0 10*3/uL [facility] Nucleated RBC/100 WBC (Bld) [Ratio] 0 % [facility] Platelet mean volume (Bld) [Entitic vol] 10.3 fL 9.4 - 12.4 fL [facility] Platelets (Bld) [#/Vol] 237 10*3/uL [facility] RBC (Bld) [#/Vol] 4.56 10*6/uL [facility] WBC (Bld) [#/Vol] 9.05 10*3/uL [facility] BASIC METABOLIC PANEL 08-16 Anion gap [Moles/Vol] 16 mmol/L Normal 10-20 [facility] Comment on above: Order Comment: [facility] has implemented the eGFR calculation approach that does not have a coefficient for race that conforms to the NKF-ASN Task Force Recommendations. Performed By: #### 4 [id number] #### [facility] [address] [place] [address] 10604 Berhane Mcclure M.D. [id number] Calcium [Mass/Vol] 8.5 mg/dL Normal 8.4-10.2 [facility] Comment on above: Order Comment: [facility] has implemented the eGFR calculation approach that does not have a coefficient for race that conforms to the NKF-ASN Task Force Recommendations. Performed By: #### 4 6124 #### [facility] [address] [place] [address] Berhane Mcclure M.D. [id number] Chloride [Moles/Vol] 103 mmol/L Normal 98-108 [facility] Comment on above: Order Comment: [facility] has implemented the eGFR calculation approach that does not have a coefficient for race that conforms to the NKF-ASN Task Force Recommendations. Performed By: #### 4 [id number] #### [facility] [address] [place], [place] [address] Berhane Mcclure M.D. [id number] Creatinine [Mass/Vol] 0.78 mg/dL Low 0.80-1.30 [facility] Comment on above: Order Comment: [facility] has implemented the eGFR calculation approach that does not have a coefficient for race that conforms to the NKF-ASN Task Force Recommendations. Performed By: #### 4 [id number] #### [facility] [address] [place], [place] [address] Berhane Mcclure M.D. [id number] EGFR 98 mL/min/1.73 m2 Normal >=60 [facility] Comment on above: Order Comment: [facility] has implemented the eGFR calculation approach that does not have a coefficient for race that conforms to the NKF-ASN Task Force Recommendations. Result Comment: Rosanne mated GFR was calculated using the 2020 CKD-EPI creatinine equation. Performed By: #### 4 [id number] #### [facility] [address] [place], [place] [address] Berhane Mcclure M.D. [id number] Glucose [Mass/Vol] 158 mg/dL High 65-99 [facility] Comment on above: Order Comment: [facility] has implemented the eGFR calculation approach that does not have a coefficient for race that conforms to the NKF-ASN Task Force Recommendations. Performed By: #### 4 [id number] #### [facility] [address] [place], [place] [address] Berhane Mcclure M.D. [id number] HCO3 (Bld) [Moles/Vol] 24 mmol/L Normal 21-32 [facility] Comment on above: Order Comment: [facility] has implemented the eGFR calculation approach that does not have a coefficient for race that conforms to the NKF-ASN Task Force Recommendations. Performed By: #### 4 6124 #### [facility] [address] [place], [place] [address] Berhane Mcclure M.D. [id number] Potassium [Moles/Vol] 4.3 mmol/L Normal 3.5-5.1 [facility] Comment on above: Order Comment: [facility] has implemented the eGFR calculation approach that does not have a coefficient for race that conforms to the NKF-ASN Task Force Recommendations. Result Comment: Slig htly Hemolyzed Performed By: #### 4 [id number] #### [facility] [address] [place], [place] [address] Berhane Mcclure M.D. [id number] Sodium [Moles/Vol] 139 mmol/L Normal 135-145 [facility] Comment on above: Order Comment: [facility] has implemented the eGFR calculation approach that does not have a coefficient for race that conforms to the NKF-ASN Task Force Recommendations. Performed By: #### 4 [id number] #### [facility] [address] [place] [address] 20831 Berhane Mcclure M.D. [id number] Urea nitrogen [Mass/Vol] 14 mg/dL Normal 8-25 [facility] Comment on above: Order Comment: [facility] has implemented the eGFR calculation approach that does not have a coefficient for race that conforms to the NKF-ASN Task Force Recommendations. Performed By: #### 4 [id number] #### [facility] [address] [place] [address] 44030 Berhane Mcclure M.D. [id number] Urea nitrogen/Creatinine [Mass ratio] 17.9 mg/mg Normal 10.0-20.0 [facility] Comment on above: Order Comment: [facility] has implemented the eGFR calculation approach that does not have a coefficient for race that conforms to the NKF-ASN Task Force Recommendations. Performed By: #### 4 [id number] #### [facility] [address] [place] [address] 17836 Berhane Mcclure M.D. [id number] Basic metabolic 2000 panelOr dered By: Shawnee Bennett on 09-08-2024 Anion gap [Moles/Vol] 16 mmol/L 10 - 20 mmol/L [facility] Calcium [Mass/Vol] 8.5 mg/dL 8.4 - 10. 2 mg/dL [facility] Chloride [Moles/Vol] 103 mmol/L 98 - 10 8 mmol/L [facility] Creatinine [Mass/Vol] 0.78 mg/dL Low 0.80 - 1.30 mg/dL [facility] GFR/1.73 sq M.predicted CKD-EPI (S/P/Bld) [Vol rate/Area] 98 - PINF [facility] Comment on above: Estimated GFR was ca lculated using the 2020 CKD-EPI creatinine equation. Glucose [Mass/Vol] 158 mg/dL High 65 - 99 mg/dL [facility] HCO3 [Moles/Vol] 24 mmol/L 21 - 32 mmol/L [facility] Interpretation and review of laboratory results Abnormal [facility] Potassium [Moles/Vol] 4.3 mmol/L 3.5 - 5.1 mmol/L [facility] Comment on above: Slightly Hemolyzed Sodium [Moles/Vol] 139 mmol/L 135 - 145 mmol/L [facility] Urea nitrogen [Mass/Vol] 14 mg/dL 8 - 25 mg/dL [facility] Urea nitrogen/Creatinine [Mass ratio] 17.9 mg/mg 10.0 - 20.0 [facility] has implemented the eGFR calculation approach that does not have a coefficient for race that conforms to the NKF-ASN Task Force Recommendations. [facility] CBCon 09-08-2024 AUTO NRBC 0.0 % Normal [facility] Comment on above: Performed By: #### 4 [id number] #### [facility] [address] [place], [place] [address] Berhane Mcclure M.D. [id number] AUTO NRBC ABS COUNT 0.00 K/mcL Normal 0.00-0.00 [facility] Comment on above: Performed By: #### 4 [id number] #### [facility] [address] [place], [place] [address] Berhane Mcclure M.D. [id number] Erythrocyte distribution width (RBC) [Ratio] 13.9 % Normal 11.6-14.8 [facility] Comment on above: Performed By: #### 4 [id number] #### [facility] [address] [place], [place] [address] Berhane Mcclure M.D. [id number] Hematocrit (Bld) [Volume fraction] 41.2 % Normal 41.0-53.0 [facility] Comment on above: Performed By: #### 4 [id number] #### [facility] [address] [place], [place] [address] Berhane Mcclure M.D. [id number] Hemoglobin (Bld) [Mass/Vol] 13.5 g/dL Normal 13.5-17.5 [facility] Comment on above: Performed By: #### 4 [id number] #### [facility] [address] [place], [place] [address] Berhane Mcclure M.D. [id number] MCH (RBC) [Entitic mass] 30.1 pg Normal 26.0-34.0 [facility] Comment on above: Performed By: #### 4 [id number] #### [facility] [address] [place] [address] Berhane Mcclure M.D. [id number] MCV (RBC) [Entitic vol] 91.8 fL Normal 80.0-100.0 [facility] Comment on above: Performed By: #### 4 [id number] #### [facility] [address] [place] [address] Berhane Mcclure M.D. [id number] MEAN CORPUSCULAR HEMOGLOBIN CONC 32.8 g/dL Normal 31.0-37.0 [facility] Comment on above: Performed By: #### 4 [id number] #### [facility] [address] [place] [address] Berhane Mcclure M.D. [id number] Platelet mean volume (Bld) [Entitic vol] 10.7 fL Normal 9.4-12.4 [facility] Comment on above: Performed By: #### 4 [id number] #### [facility] [address] [place] [address] Berhane Mcclure M.D. [id number] Platelets (Bld) [#/Vol] 218 10*3/uL Normal 150-400 [facility] Comment on above: Performed By: #### 4 5238 #### [facility] [address] [place] [address] Berhane Mcclure M.D. [id number] RBC (Bld) [#/Vol] 4.49 10*6/uL Low 4.50-5.90 [facility] Comment on above: Performed By: #### 4 [id number] #### [facility] [address] [place] [address] 14088 Berhane Mcclure M.D. [id number] WBC (Bld) [#/Vol] 12.02 10*3/uL High 4.50-11.00 [facility] Comment on above: Performed By: #### 4 [id number] #### [facility] [address] [place] [address] 71633 Berhane Mcclure M.D. [id number] CBC panel Auto (Bld)on 09-08 Erythrocyte distribution width (RBC) [Entitic vol] 13.9 % 11.6 - 14.8 % [facility] Hematocrit (Bld) [Volume fraction] 41.2 % 41.0 - 53.0 % [facility] Hemoglobin (Bld) [Mass/Vol] 13.5 g/dL 13.5 - 17.5 g/dL [facility] Interpretation and review of laboratory results Abnormal [facility] MCH (RBC) [Entitic mass] 30.1 pg 26.0 - 34.0 pg [facility] MCHC (RBC) [Mass/Vol] 32.8 g/dL 31.0 - 37.0 g/dL [facility] MCV (RBC) [Entitic vol] 91.8 fL 80.0 - 100.0 fL [facility] Nucleated RBC (Bld) [#/Vol] 0 10*3/uL [facility] Nucleated RBC/100 WBC (Bld) [Ratio] 0 % [facility] Platelet mean volume (Bld) [Entitic vol] 10.7 fL 9.4 - 12.4 fL [facility] Platelets (Bld) [#/Vol] 218 10*3/uL [facility] RBC (Bld) [#/Vol] 4.49 10*6/uL Low [facility] WBC (Bld) [#/Vol] 12.02 10*3/uL High [facility] VANCOMYCIN LEVEL, RANDOMon 0 09-08-2024 VANCOMYCIN RANDOM 4.0 mcg/mL Normal [facility] Comment on above: Order Comment: [facility] has implemented the eGFR calculation approach that does not have a coefficient for race that conforms to the NKF-ASN Task Force Recommendations. Performed By: #### [id number] #### [facility] [address] [place] [address] 19737 Berhane Mcclure M.D. [id number] Vancomycin Level, Randomon 0 09-08-2024 Vancomycin [Mass/Vol] 4 mcg/mL [facility] Vancomycin [Mass/Vol]on 08-16 As of 02/2022 vancomycin dosing for [facility] inpatients will be done by Bayesian dosing software rather than off traditional trough values. Please contact the site specific inpatient pharmacy before making dose changes off of trough values alone for admitted patients. No established reference range. [facility] BASIC METABOLIC PANELon 08-16 Anion gap [Moles/Vol] 10 mmol/L Normal 10-20 [facility] Comment on above: Order Comment: [facility] has implemented the eGFR calculation approach that does not have a coefficient for race that conforms to the NKF-ASN Task Force Recommendations. Performed By: #### [id number] #### [facility] [address] [place] [address] 65560 Berhane Mcclure M.D. [id number] Calcium [Mass/Vol] 8.6 mg/dL Normal 8.4-10.2 [facility] Comment on above: Order Comment: [facility] has implemented the eGFR calculation approach that does not have a coefficient for race that conforms to the NKF-ASN Task Force Recommendations. Performed By: #### [id number] #### [facility] [address] [place] [address] 52903 Berhane Mcclure M.D. [id number] Chloride [Moles/Vol] 104 mmol/L Normal 98-108 [facility] Comment on above: Order Comment: [facility] has implemented the eGFR calculation approach that does not have a coefficient for race that conforms to the NKF-ASN Task Force Recommendations. Performed By: #### [id number] #### [facility] [address] [place] [address] 60813 Berhane Mcclure M.D. [id number] Creatinine [Mass/Vol] 0.84 mg/dL Normal 0.80-1.30 [facility] Comment on above: Order Comment: [facility] has implemented the eGFR calculation approach that does not have a coefficient for race that conforms to the NKF-ASN Task Force Recommendations. Performed By: #### [id number] #### [facility] [address] [place] [address] 02586 Berhane Mcclure M.D. [id number] EGFR 96 mL/min/1.73 m2 Normal >=60 [facility] Comment on above: Order Comment: [facility] has implemented the eGFR calculation approach that does not have a coefficient for race that conforms to the NKF-ASN Task Force Recommendations. Result Comment: Rosanne mated GFR was calculated using the 2020 CKD-EPI creatinine equation. Performed By: #### [id number] #### [facility] [address] [place] [address] 53786 Berhane Mcclure M.D. [id number] Glucose [Mass/Vol] 122 mg/dL High 65-99 [facility] Comment on above: Order Comment: [facility] has implemented the eGFR calculation approach that does not have a coefficient for race that conforms to the NKF-ASN Task Force Recommendations. Performed By: #### 4 [id number] #### [facility] [address] [place] [address] 05439 Berhane Mcclure M.D. [id number] HCO3 (Bld) [Moles/Vol] 27 mmol/L Normal 21-32 [facility] Comment on above: Order Comment: [facility] has implemented the eGFR calculation approach that does not have a coefficient for race that conforms to the NKF-ASN Task Force Recommendations. Performed By: #### 4 [id number] #### [facility] [address] [place] [address] 16455 Berhane Mcclure M.D. [id number] Potassium [Moles/Vol] 3.7 mmol/L Normal 3.5-5.1 [facility] Comment on above: Order Comment: [facility] has implemented the eGFR calculation approach that does not have a coefficient for race that conforms to the NKF-ASN Task Force Recommendations. Performed By: #### 4 [id number] #### [facility] [address] [place] [address] 75[address] Berhane Mcclure M.D. [id number] Sodium [Moles/Vol] 137 mmol/L Normal 135-145 [facility] Comment on above: Order Comment: [facility] has implemented the eGFR calculation approach that does not have a coefficient for race that conforms to the NKF-ASN Task Force Recommendations. Performed By: #### 4 [id number] #### [facility] [address] [place] [address] 53889 Berhane Mcclure M.D. [id number] Urea nitrogen [Mass/Vol] 10 mg/dL Normal 8-25 [facility] Comment on above: Order Comment: [facility] has implemented the eGFR calculation approach that does not have a coefficient for race that conforms to the NKF-ASN Task Force Recommendations. Performed By: #### 4 [id number] #### [facility] [address] [place] [address] 69[address] Berhane Mcclure M.D. [id number] Urea nitrogen/Creatinine [Mass ratio] 11.9 mg/mg Normal 10.0-20.0 [facility] Comment on above: Order Comment: [facility] has implemented the eGFR calculation approach that does not have a coefficient for race that conforms to the NKF-ASN Task Force Recommendations. Performed By: #### 4 [id number] #### [facility] [address] [place] [address] 44470 Berhane Mcclure M.D. [id number] Basic metabolic 2000 panelon 09-07-2024 Anion gap [Moles/Vol] 10 mmol/L 10 - 20 mmol/L [facility] Calcium [Mass/Vol] 8.6 mg/dL 8.4 - 10. 2 mg/dL [facility] Chloride [Moles/Vol] 104 mmol/L 98 - 10 8 mmol/L [facility] Creatinine [Mass/Vol] 0.84 mg/dL 0.80 - 1.30 mg/dL [facility] GFR/1.73 sq M.predicted CKD-EPI (S/P/Bld) [Vol rate/Area] 96 - PINF [facility] Comment on above: Estimated GFR was ca lculated using the 2020 CKD-EPI creatinine equation. Glucose [Mass/Vol] 122 mg/dL High 65 - 99 mg/dL [facility] HCO3 [Moles/Vol] 27 mmol/L 21 - 32 mmol/L [facility] Potassium [Moles/Vol] 3.7 mmol/L 3.5 - 5.1 mmol/L [facility] Sodium [Moles/Vol] 137 mmol/L 135 - 145 mmol/L [facility] Urea nitrogen [Mass/Vol] 10 mg/dL 8 - 25 mg/dL [facility] Urea nitrogen/Creatinine [Mass ratio] 11.9 mg/mg 10.0 - 20.0 [facility] has implemented the eGFR calculation approach that does not have a coefficient for race that conforms to the NKF-ASN Task Force Recommendations. [facility] CBCon 09-07-2024 AUTO NRBC 0.0 % Normal [facility] Comment on above: Performed By: #### 4 [id number] #### [facility] [address] [place], [place] [id number] Berhane Mcclure M.D. [id number] AUTO NRBC ABS COUNT 0.00 K/mcL Normal 0.00-0.00 [facility] Comment on above: Performed By: #### 4 [id number] #### [facility] [address] [place], [place] [id number] Berhane Mcclure M.D. [id number] Erythrocyte distribution width (RBC) [Ratio] 14.5 % Normal 11.6-14.8 [facility] Comment on above: Performed By: #### 4 [id number] #### [facility] [address] [place], [place] [id number] Berhane Mcclure M.D. [id number] Hematocrit (Bld) [Volume fraction] 39.1 % Low 41.0-53.0 [facility] Comment on above: Performed By: #### 4 [id number] #### [facility] [address] [place] [address] Berhane Mcclure M.D. [id number] Hemoglobin (Bld) [Mass/Vol] 13.1 g/dL Low 13.5-17.5 [facility] Comment on above: Performed By: #### 4 [id number] #### [facility] [address] [place] [address] Berhane Mcclure M.D. [id number] MCH (RBC) [Entitic mass] 31.0 pg Normal 26.0-34.0 [facility] Comment on above: Performed By: #### 4 [id number] #### [facility] [address] [place] [address] Berhane Mcclure M.D. [id number] MCV (RBC) [Entitic vol] 92.7 fL Normal 80.0-100.0 [facility] Comment on above: Performed By: #### 4 [id number] #### [facility] [address] [place], [place] [address] Berhane Mcclure M.D. [id number] MEAN CORPUSCULAR HEMOGLOBIN CONC 33.5 g/dL Normal 31.0-37.0 [facility] Comment on above: Performed By: #### 4 [id number] #### [facility] [address] [place], [place] [address] Berhane Mcclure M.D. [id number] Platelet mean volume (Bld) [Entitic vol] 10.4 fL Normal 9.4-12.4 [facility] Comment on above: Performed By: #### 4 [id number] #### [facility] [address] [place] [address] 86663 Berhane Mcclure M.D. [id number] Platelets (Bld) [#/Vol] 203 10*3/uL Normal 150-400 [facility] Comment on above: Performed By: #### 4 [id number] #### [facility] [address] [place] [address] 34134 Berhane Mcclure M.D. [id number] RBC (Bld) [#/Vol] 4.22 10*6/uL Low 4.50-5.90 [facility] Comment on above: Performed By: #### 4 [id number] #### [facility] [address] [place] [address] 06230 Berhane Mcclure M.D. [id number] WBC (Bld) [#/Vol] 13.07 10*3/uL High 4.50-11.00 [facility] Comment on above: Performed By: #### 4 [id number] #### [facility] [address] [place] [address] 04433 Berhane Mcclure M.D. [id number] CBC panel Auto (Bld)on 09-07 Erythrocyte distribution width (RBC) [Entitic vol] 14.5 % 11.6 - 14.8 % [facility] Hematocrit (Bld) [Volume fraction] 39.1 % Low 41.0 - 53.0 % [facility] Hemoglobin (Bld) [Mass/Vol] 13.1 g/dL Low 13.5 - 17.5 g/dL [facility] Interpretation and review of laboratory results Abnormal [facility] MCH (RBC) [Entitic mass] 31 pg 26.0 - 34.0 pg [facility] MCHC (RBC) [Mass/Vol] 33.5 g/dL 31.0 - 37.0 g/dL [facility] MCV (RBC) [Entitic vol] 92.7 fL 80.0 - 100.0 fL [facility] Nucleated RBC (Bld) [#/Vol] 0 10*3/uL [facility] Nucleated RBC/100 WBC (Bld) [Ratio] 0 % [facility] Platelet mean volume (Bld) [Entitic vol] 10.4 fL 9.4 - 12.4 fL [facility] Platelets (Bld) [#/Vol] 203 10*3/uL [facility] RBC (Bld) [#/Vol] 4.22 10*6/uL Low [facility] WBC (Bld) [#/Vol] 13.07 10*3/uL High [facility] HEMOGLOBIN A1Con 09-07-2024 Glucose [Mass/Vol] 114 mg/dL Normal 74-114 [facility] Comment on above: Order Comment: [facility] has implemented the eGFR calculation approach that does not have a coefficient for race that conforms to the NKF-ASN Task Force Recommendations. Performed By: #### [id number] #### [facility] [address] [place] [address] 81432 Berhane Mcclure M.D. [id number] HbA1c (Bld) [Mass fraction] 5.6 % Normal 4.2-5.6 [facility] Comment on above: Order Comment: [facility] has implemented the eGFR calculation approach that does not have a coefficient for race that conforms to the NKF-ASN Task Force Recommendations. Performed By: #### 4 [id number] #### [facility] [address] [place] [address] 78500 Berhane Mcclure M.D. [id number] HbA1c (Bld) [Mass fraction]o n 09-07-2024 Average glucose Estimated from glycated hemoglobin (Bld) [Mass/Vol] 114 mg/dL 74 - 114 mg/dL [facility] Interpretation and review of laboratory results Normal [facility] Normal: 4.2% - 5.6% Increased risk for diabetes: 5.7% - 6.4% Diabetes: >= 6.5% Pediatrics: No established reference range Estimated average glucose: 74-114 mg/dL [facility] Hemoglobin A1con 09-07-2024 HbA1c (Bld) [Mass fraction] 5.6 % 4.2 - 5.6 % [facility] LIPID PANELon 04-24-2025 Cholesterol [Mass/Vol] 90 mg/dL Low 100-199 [facility] Comment on above: Result Comment: [facility] Cholesterol Education Program Guidelines: Cholesterol Desirable: <200 mg/dL Borderline High: 200-239 mg/dL High: greater than or equal to 240 mg/dL Performed By: #### 4 [id number] #### [facility] [address] [place] [address] 81217 Berhane Mcclure M.D. [id number] Cholesterol in HDL [Mass/Vol] 40 mg/dL Normal 40-59 [facility] Comment on above: Performed By: #### 4 [id number] #### [facility] [address] [place], [place] [address] Berhane Mcclure M.D. [id number] Cholesterol.total/Ch olesterol in HDL [Mass ratio] 2.3 {ratio} Normal [facility] Comment on above: Result Comment: Male s Cholesterol/HDL Ratio: Average risk: 5.0 1/2 average risk: 3.4 2 x average risk: 9.6 Performed By: #### 4 [id number] #### [facility] [address] [place], [place] [address] Berhane Mcclure M.D. [id number] LDL CHOLESTEROL CALCULATED 37 mg/dL Normal 10-130 [facility] Comment on above: Result Comment: [facility] Cholesterol Education Program Guidelines: LDL Cholesterol Optimal: <100 mg/dL Near Optimal/above Optimal: 100-129 mg/dL Borderline High: 130-159 mg/dL High: 160-189 mg/dL Very High: greater than or equal to 190 mg/dL Performed By: #### 4 6128 #### [facility] [address] [place] [address] 57638 Berhane Mcclure M.D. [id number] NON HDL CHOL 50 mg/dL Normal [facility] Comment on above: Result Comment: [facility] Guidelines: NON HDL Cholesterol Desirable: <130 mg/dL Borderline High: 130-159 mg/dL High: 160-189 mg/dL Very High: > or = 190 mg/dL Performed By: #### 4 [id number] #### [facility] [address] [place], [place] [address] Berhane Mcclure M.D. [id number] Triglyceride [Mass/Vol] 64 mg/dL Normal 30-150 [facility] Comment on above: Result Comment: [facility] Cholesterol Education Program Guidelines: Triglyceride Normal: <150 mg/dL Borderline High: 150-199 mg/dL High: 200-499 mg/dL Very High: greater than or equal to 500 mg/dL Performed By: #### 4 [id number] #### [facility] [address] [place], [place] [address] Berhane Mcculre M.D. [id number] Lipid 1996 panelon 5 Cholesterol [Mass/Vol] 90 mg/dL Low 100 - 199 mg/dL [facility] Comment on above: National Cholesterol Education Program Guidelines: Cholesterol Desirable: <200 mg/dL Borderline High: 200-239 mg/dL High: greater than or equal to 240 mg/dL Cholesterol in HDL [Mass/Vol] 40 mg/dL 40 - 59 mg/dL [facility] Cholesterol in LDL [Mass/Vol] 37 mg/dL 10 - 130 mg/dL [facility] Comment on above: National Cholesterol Education Program Guidelines: LDL Cholesterol Optimal: <100 mg/dL Near Optimal/above Optimal: 100-129 mg/dL Borderline High: 130-159 mg/dL High: 160-189 mg/dL Very High: greater than or equal to 190 mg/dL Cholesterol non HDL [Mass/Vol] 50 mg/dL [facility] Comment on above: National Cholesterol Education Program Guidelines: NON HDL Cholesterol Desirable: <130 mg/dL Borderline High: 130-159 mg/dL High: 160-189 mg/dL Very High: > or = 190 mg/dL Cholesterol.total/Ch olesterol in HDL [Mass ratio] 2.3 {ratio} ratio [facility] Comment on above: Males Cholesterol/HD L Ratio: Average risk: 5.0 1/2 average risk: 3.4 2 x average risk: 9.6 Triglyceride [Mass/Vol] 64 mg/dL 30 - 150 mg/dL [facility] Comment on above: National Cholesterol Education Program Guidelines: Triglyceride Normal: <150 mg/dL Borderline High: 150-199 mg/dL High: 200-499 mg/dL Very High: greater than or equal to 500 mg/dL MR Hand - right WO and W con trast Jose Juan 09-07-2024 Circumferential soft tissue swelling/edema and skin thickening around the thumb consistent with cellulitis. There is soft tissue ulceration/defect along the volar aspect of the thumb near the proximal phalanx. There is tenosynovitis of the flexor tendon of the thumb without tendon tear. Edema in the thenar musculature noted. No pathologic joint effusion in the thumb. There is a nonspecific foreign body in the soft tissues superficial to the thumb flexor tendon measuring 13 x 7 x 9 mm as seen on sagittal T1 image 17. No convincing evidence of osteomyelitis or drainable abscess. There is also tenosynovitis of the flexor tendons of the other partially visualized digits of the hand. PD/cdr Workstation ID: [id number] [facility] EXAMINATION: MR HAND RIGHT WITH AND WITHOUT CONTRAST HISTORY: ORDERING SYSTEM PROVIDED HISTORY: right hand infection - eval for deep space infection, tenosynovitis, TECHNOLOGIST PROVIDED HISTORY: Illness/Other Reason for exam: s/p burn on thumb 3 days ago Encounter Type: Ongoing Additional signs and symptoms: s/p burn on thumb 3 days ago ORDERING SYSTEM PROVIDED DIAGNOSIS CODES: L03.113 Cellulitis of right hand D72.829 Leukocytosis, unspecified type T15.90XA Foreign body in eye COMPARISON: None. TECHNIQUE: Multiplanar, multisequence imaging of the right thumb with and without IV contrast. CONTRAST: GADOTERATE MEGLUMINE 0.5 MMOL/ML (376.9 MG/ML) INTRAVENOUS SOLUTION - 19 mL, FINDINGS: Motion throughout challenges my evaluation. Circumferential soft tissue swelling/edema and skin thickening around the thumb consistent with cellulitis. There is soft tissue ulceration/defect along the volar aspect of the thumb near the proximal phalanx. There is tenosynovitis of the flexor tendon of the thumb without tendon tear. Edema in the thenar musculature noted. No pathologic joint effusion in the thumb. There is a nonspecific foreign body in the soft tissues superficial to the thumb flexor tendon measuring 13 x 7 x 9 mm as seen on sagittal T1 image 17. No convincing evidence of osteomyelitis or drainable abscess. There is also tenosynovitis of the flexor tendons of the other partially visualized digits of the hand. 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 GE Kyle Rocha MD - 09/07/2024 EXAMINATION: MR HAND RIGHT WITH AND WITHOUT CONTRAST HISTORY: ORDERING SYSTEM PROVIDED HISTORY: right hand infection - eval for deep space infection, tenosynovitis, TECHNOLOGIST PROVIDED HISTORY: Illness/Other Reason for exam: s/p burn on thumb 3 days ago Encounter Type: Ongoing Additional signs and symptoms: s/p burn on thumb 3 days ago ORDERING SYSTEM PROVIDED DIAGNOSIS CODES: L03.113 Cellulitis of right hand D72.829 Leukocytosis, unspecified type T15.90XA Foreign body in eye COMPARISON: None. TECHNIQUE: Multiplanar, multisequence imaging of the right thumb with and without IV contrast. CONTRAST: GADOTERATE MEGLUMINE 0.5 MMOL/ML (376.9 MG/ML) INTRAVENOUS SOLUTION - 19 mL, FINDINGS: Motion throughout challenges my evaluation. Circumferential soft tissue swelling/edema and skin thickening around the thumb consistent with cellulitis. There is soft tissue ulceration/defect along the volar aspect of the thumb near the proximal phalanx. There is tenosynovitis of the flexor tendon of the thumb without tendon tear. Edema in the thenar musculature noted. No pathologic joint effusion in the thumb. There is a nonspecific foreign body in the soft tissues superficial to the thumb flexor tendon measuring 13 x 7 x 9 mm as seen on sagittal T1 image 17. No convincing evidence of osteomyelitis or drainable abscess. There is also tenosynovitis of the flexor tendons of the other partially visualized digits of the hand. 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 IMPRESSION: Circumferential soft tissue swelling/edema and skin thickening around the thumb consistent with cellulitis. There is soft tissue ulceration/defect along the volar aspect of the thumb near the proximal phalanx. There is tenosynovitis of the flexor tendon of the thumb without tendon tear. Edema in the thenar musculature noted. No pathologic joint effusion in the thumb. There is a nonspecific foreign body in the soft tissues superficial to the thumb flexor tendon measuring 13 x 7 x 9 mm as seen on sagittal T1 image 17. No convincing evidence of osteomyelitis or drainable abscess. There is also tenosynovitis of the flexor tendons of the other partially visualized digits of the hand. PD/cdr Workstation ID: [id number] [facility] Radiology Study observation (narrative) [facility] MR Hand - right WO and W con trast IVOrdered By: Kyle Nunez on 09-07-2024 [facility] Work Phone: No Panel Informationon 09-07 Interpretation and review of laboratory results Abnormal [facility] OP NOTEon 09-07-2024 OP NOTE OPERATIVE REPORT Maryse Mak Preoperative Diagnosis: Right thumb flexor tenosynovitis Postoperative Diagnosis: Right thumb flexor tenosynovitis Procedure: Incision and drainage of right thumb flexor tenosynovitis - [id number] Surgeon:Aristeo Beavers MD Cemetery Keeper: Surgeons and Role: * Aristeo Beavers MD - Primary Anesthesiologist: No responsible provider has been recorded for the case. OR Staff: Fruit Stuffer: Mary Lou Strong RN Scrub Person: Ludin Urena ST Implants: * No implants in log * EBL: See anesthesia note Complications: None Disposition: To PACU, stable Indications: Maryse Mak is a 69 y.o. male presenting with the aforementioned injuries/findings. The procedure is indicated to best alleviate infection and obtain further cultures. The patient is awake and alert. After thorough discussion of the risks, benefits, expected outcomes, and alternatives to surgical intervention, the patient agreed to proceed with surgical treatment. Specific risks discussed included, but were not limited to: superficial or deep infection, wound healing complications, DVT/PE, significant bleeding requiring transfusion, damage to named anatomic structures in the immediate area including named neurovascular structures, infection, need for further surgeries, finger stiffness, osteomyelitis, and general risks of anesthesia. The patient/family voiced understanding and written as well as verbal consent was obtained by myself prior to the procedure. Procedure Note: The patient and operative site were confirmed and marked by me in the preoperative holding area. The patient was brought back to the OR and placed on the OR table. After successful induction of anesthesia by anesthesia staff, the patient was positioned and all bony prominences were padded appropriately. The surgical field was then provisionally cleansed and then prepped and draped in the usual sterile fashion. At this time a time-out was performed, with the correct patient, site, and procedure identified. The universal time out as well as sign your site protocols were followed. Preoperative antibiotics were verified as administered. I first made a transverse incision over the A1 zia at the level of the MPJ flexion crease, and attention to hemostasis was paid using electrocautery. I then identified, dissected and protected both neurovascular bundles. Dissection was continued down to the level of the A1 zia and I divided the A1 zia completely under direct visualization. I was careful to avoid injury to the oblique zia distally. Masses or nodules were not noted. I did, however, note some seropurulent fluid coming from the flexor tendon sheath, which was consistent with flexor tenosynovitis. This tendon sheath fluid was also sent for culture. More distally, at the IP flexion crease another transverse incision was made and connected to the pre-existing longitudinal incision that was made in the emergency department in order to expose the A3 zia. Dissection was carried deeper to the tendon sheath. Great care was taken to avoid injury to radial neurovascular bundle. I was then able to identified the A3 zia clearly. I then used a 20 gauge angiocath in the flexor tendon sheath near the A1 zia to copiously irrigate the flexor tendon sheath in a proximal to distal direction and confirmed fluid efflux from the tendon sheath distally. I irrigated until the fluid efflux distally was clear. A christina drain was placed connecting the two incisions and a single nylon suture was placed at each end to secure the drain. The incision(s) was/were then irrigated using copious sterile saline and then closed with 4-0 nylon. A digital block with 20cc of 0.5% plain marcaine was then injected and the finger was sterilely cleansed and dressed. The patient was then subsequently transferred to to PACU in a stable condition. All sponge and needle counts were correct at the end of the case. I was present and participated in all aspects of the procedure. Prognosis: The patient will be kept WBAT on the ipsilateral extremity. We will continue antibiotics and continue BID warm soapy soaks. We will follow cultures and adjust antibiotics as needed. There is a risk of continued infection and we will follow the patient to assess for recurrence or worsening. Aristeo Beavers MD AUTHENTICATED BY ARISTEO BEAVERS, ON 09/07/2024 14:29:50 Normal [facility] SURGICAL SITE AEROBIC AND AN AEROBIC CULTUREon 09-07-2024 SURGICAL SITE AEROBIC AND ANAEROBIC CULTURE CULTURE No Anaerobic Growth after 5 days STREPTOCOCCUS PYOGENES Rare growth Streptococcus pyogenes (Group A) GRAM STAIN RESULT Many RBC Many WBC No Organisms Seen Abnormal [facility] Comment on above: Performed By: #### 4 [id number] #### [facility] [place] [address] Berhane Mcclure M.D. [id number] XR MR [place] 09-07-2024 No metallic foreign body is identified in either orbit. Workstation ID: [id number] RIS EXAMINATION: XR FOR MRI CLEARANCE HISTORY: MRI CLEARANCE METAL IN EYES OVER 40 YRS AGO COMPARISON: None. TECHNIQUE: 1 orbit view is submitted FINDINGS: No metallic foreign body is identified in either orbit. Orbital bony structures are grossly unremarkable. GE RIS Geni, Laurence Thomasy, DO - 09/07/2024 EXAMINATION: XR FOR MRI CLEARANCE HISTORY: MRI CLEARANCE METAL IN EYES OVER 40 YRS AGO COMPARISON: None. TECHNIQUE: 1 orbit view is submitted FINDINGS: No metallic foreign body is identified in either orbit. Orbital bony structures are grossly unremarkable. IMPRESSION: No metallic foreign body is identified in either orbit. Workstation ID: [id number] [facility] XR MR ClearOrdered By: Laurence Cano on 09-07-2024 [facility] Work Phone: ALCOHOL, MEDICALon 5 ALCOHOL MEDICAL < Normal <10.0 [facility] Comment on above: Result Comment: Alco hol cutoff: <10.00 mg/dL = None Detected Performed By: #### 4 [id number] #### [facility] [address] [place], [place] [address] Cameron Vanegas M.D. [id number] APTTon 09-06-2024 aPTT Coag (Bld) [Time] 33 s Normal 23-34 [facility] Comment on above: Order Comment: Thera peutic range for APTT's is 68 - 104 seconds Performed By: #### 4 5113 #### [facility] [address] [place], [place] [address] Cameron Vanegas M.D. [id number] BLOOD CULTURE AEROBIC/ANAERO BICon 09-06-2024 BLOOD CULTURE AEROBIC/ANAEROBIC BLOOD CULTURE No Growth after 5 days Normal [facility] Comment on above: Performed By: #### 4 [id number] #### [facility] [address] [place] [address] Cameron Vanegas M.D. [id number] CBC WITH AUTO DIFFERENTIALon 09-06-2024 AUTO NRBC 0.0 % Normal [facility] Comment on above: Performed By: #### 4 5033 #### LAB [address] [place] [address] Cameron Vanegas M.D. [id number] AUTO NRBC ABS COUNT 0.00 K/mcL Normal 0.00-0.00 [facility] Comment on above: Performed By: #### 4 5033 #### LAB [address] [place] [address] Cameron Vanegas M.D. [id number] BASOPHILS ABSOLUTE COUNT 0.06 K/mcL Normal 0.00-0.30 [facility] Comment on above: Performed By: #### 4 5033 #### LAB [address] [place] [address] Cameron Vanegas M.D. [id number] Basophils/100 WBC (Bld) 0.3 % Normal [facility] Comment on above: Performed By: #### 4 5033 #### LAB [address] [place] [address] Cameron Vanegas M.D. [id number] Eosinophils (Bld) [#/Vol] 0.03 10*3/uL Normal 0.00-0.50 [facility] Comment on above: Performed By: #### 4 5033 #### LAB [address] [place] [address] Cameron Vanegas M.D. [id number] Eosinophils/100 WBC (Bld) 0.2 % [facility] Comment on above: Performed By: #### 4 5033 #### LAB [address] [place] [address] Cameron Vanegas M.D. [id number] Erythrocyte distribution width (RBC) [Ratio] 14.6 % Normal 11.6-14.8 [facility] Comment on above: Performed By: #### 4 5033 #### LAB [address] [place] [address] Cameron Vanegas M.D. [id number] Hematocrit (Bld) [Volume fraction] 46.6 % Normal 41.0-53.0 [facility] Comment on above: Performed By: #### 4 5033 #### LAB [address] [place] [address] Cameron Vanegas M.D. [id number] Hemoglobin (Bld) [Mass/Vol] 15.5 g/dL Normal 13.5-17.5 [facility] Comment on above: Performed By: #### 4 5033 #### LAB [address] [place] [address] Cameron Vanegas M.D. [id number] IG ABSOLUTE 0.13 K/mcL Normal 0.00-0.30 [facility] Comment on above: Performed By: #### 4 5033 #### LAB [address] [place] [address] Cameron Vanegas M.D. [id number] IG PERCENT 0.70 % [facility] Comment on above: Result Comment: The IG parameter is the percentage of metamyelocytes, myelocytes and promyelocytes. An immature granulocyte count (IG) of 1% or more suggests the possibility of infection, an IG count of 3% is very likely related to an infection. Performed By: #### 4 5033 #### LAB [address] [place] [address] Cameron Vanegas M.D. [id number] Lymphocytes (Bld) [#/Vol] 1.30 10*3/uL Normal 0.90-4.00 [facility] Comment on above: Performed By: #### 4 5033 #### LAB [address] [place] [address] Cameron aVnegas M.D. [id number] Lymphocytes/100 WBC (Bld) 6.7 % [facility] Comment on above: Performed By: #### 4 5033 #### LAB [address] [place] [address] Cameron Vanegas M.D. [id number] MCH (RBC) [Entitic mass] 30.8 pg Normal 26.0-34.0 [facility] Comment on above: Performed By: #### 4 5033 #### LAB [address] [place] [address] Cameron Vanegas M.D. [id number] MCV (RBC) [Entitic vol] 92.6 fL Normal 80.0-100.0 [facility] Comment on above: Performed By: #### 4 5033 #### LAB [address] [place] [address] Cameron Vanegas M.D. [id number] MEAN CORPUSCULAR HEMOGLOBIN CONC 33.3 g/dL Normal 31.0-37.0 [facility] Comment on above: Performed By: #### 4 5033 #### LAB [address] [place] [address] Cameron Vanegas M.D. [id number] Monocytes (Bld) [#/Vol] 1.12 10*3/uL High 0.30-0.90 [facility] Comment on above: Performed By: #### 4 5033 #### LAB [address] [place] [address] Cameron Vanegas M.D. [id number] Monocytes/100 WBC (Bld) 5.8 % Normal [facility] Comment on above: Performed By: #### 4 5033 #### LAB [address] [place] [address] Cameron Vanegas M.D. [id number] NEUTROPHILS ABSOLUTE COUNT 16.65 K/mcL High 1.70-7.00 [facility] Comment on above: Performed By: #### 4 5033 #### LAB [address] [address] Cameron Vanegas M.D. [id number] Neutrophils/100 WBC (Bld) 86.3 % Normal [facility] Comment on above: Performed By: #### 4 5033 #### [facility] [address] [place] [address] Cameron Vanegas M.D. [id number] Platelet mean volume (Bld) [Entitic vol] 9.8 fL Normal 9.4-12.4 [facility] Comment on above: Performed By: #### 4 5033 #### [facility] [address] [place] [address] Cameron Vanegas M.D. [id number] Platelets (Bld) [#/Vol] 233 10*3/uL Normal 150-400 [facility] Comment on above: Performed By: #### 4 5033 #### [facility] [address] [place] [address] Cameron Vanegas M.D. [id number] RBC (Bld) [#/Vol] 5.03 10*6/uL Normal 4.50-5.90 [facility] Comment on above: Performed By: #### 4 5033 #### [facility] [address] [address] Cameron Vanegas M.D. [id number] WBC (Bld) [#/Vol] 19.29 10*3/uL High 4.50-11.00 [facility] Comment on above: Performed By: #### 4 5033 #### LAB [address] [address] Cameron Vanegas M.D. [id number] COMPREHENSIVE METABOLIC PANE Rashel 09-06-2024 Albumin [Mass/Vol] 4.3 g/dL Normal 3.2-5.2 [facility] Comment on above: Order Comment: [facility] has implemented the eGFR calculation approach that does not have a coefficient for race that conforms to the NKF-ASN Task Force Recommendations. Performed By: #### 4 5033 #### LAB [address] [place] [address] Cameron Vanegas M.D. [id number] ALP [Catalytic activity/Vol] 97 U/L Normal 40-150 [facility] Comment on above: Order Comment: [facility] has implemented the eGFR calculation approach that does not have a coefficient for race that conforms to the NKF-ASN Task Force Recommendations. Performed By: #### 4 5033 #### LAB [address] [place] [address] Cameron Vanegas M.D. [id number] ALT [Catalytic activity/Vol] 14 U/L Normal 0-50 U/L [facility] Comment on above: Order Comment: [facility] has implemented the eGFR calculation approach that does not have a coefficient for race that conforms to the NKF-ASN Task Force Recommendations. Performed By: #### 4 5033 #### LAB [address] [place] [address] Cameron Vanegas M.D. [id number] Anion gap [Moles/Vol] 16 mmol/L Normal 10-20 [facility] Comment on above: Order Comment: [facility] has implemented the eGFR calculation approach that does not have a coefficient for race that conforms to the NKF-ASN Task Force Recommendations. Performed By: #### 4 5033 #### LAB [address] [address] Cameron Vanegas M.D. [id number] AST [Catalytic activity/Vol] 16 U/L Normal 0-50 U/L [facility] Comment on above: Order Comment: [facility] has implemented the eGFR calculation approach that does not have a coefficient for race that conforms to the NKF-ASN Task Force Recommendations. Performed By: #### 4 5033 #### LAB [address] [address] Cameron Vanegas M.D. [id number] Bilirubin [Mass/Vol] 1.2 mg/dL Normal 0.0-1.3 [facility] Comment on above: Order Comment: [facility] has implemented the eGFR calculation approach that does not have a coefficient for race that conforms to the NKF-ASN Task Force Recommendations. Performed By: #### 4 5033 #### LAB [address] [address] Cameron Vanegas M.D. [id number] Calcium [Mass/Vol] 9.5 mg/dL Normal 8.4-10.2 [facility] Comment on above: Order Comment: [facility] has implemented the eGFR calculation approach that does not have a coefficient for race that conforms to the NKF-ASN Task Force Recommendations. Performed By: #### 4 5033 #### LAB [address] [place] [address] Cameron Vanegas M.D. [id number] Chloride [Moles/Vol] 99 mmol/L Normal 98-108 [facility] Comment on above: Order Comment: [facility] has implemented the eGFR calculation approach that does not have a coefficient for race that conforms to the NKF-ASN Task Force Recommendations. Performed By: #### 4 5033 #### LAB [address] [place] [address] Cameron Vanegas M.D. [id number] Creatinine [Mass/Vol] 1.14 mg/dL Normal 0.80-1.30 [facility] Comment on above: Order Comment: [facility] has implemented the eGFR calculation approach that does not have a coefficient for race that conforms to the NKF-ASN Task Force Recommendations. Performed By: #### 4 5033 #### LAB [address] [place] [address] Cameron Vanegas M.D. [id number] EGFR 70 mL/min/1.73 m2 Normal >=60 [facility] Comment on above: Order Comment: [facility] has implemented the eGFR calculation approach that does not have a coefficient for race that conforms to the NKF-ASN Task Force Recommendations. Result Comment: Rosanne mated GFR was calculated using the 2020 CKD-EPI creatinine equation. Performed By: #### 4 5033 #### LAB [address] [place] [address] Cameron Vanegas M.D. [id number] Glucose [Mass/Vol] 84 mg/dL Normal 65-99 [facility] Comment on above: Order Comment: [facility] has implemented the eGFR calculation approach that does not have a coefficient for race that conforms to the NKF-ASN Task Force Recommendations. Performed By: #### 4 5033 #### LAB [address] [place] [address] Cameron Vanegas M.D. [id number] HCO3 (Bld) [Moles/Vol] 25 mmol/L Normal 21-32 [facility] Comment on above: Order Comment: [facility] has implemented the eGFR calculation approach that does not have a coefficient for race that conforms to the NKF-ASN Task Force Recommendations. Performed By: #### 4 5033 #### LAB [address] [place] [address] Cameron Vanegas M.D. [id number] Potassium [Moles/Vol] 4.0 mmol/L Normal 3.5-5.1 [facility] Comment on above: Order Comment: [facility] has implemented the eGFR calculation approach that does not have a coefficient for race that conforms to the NKF-ASN Task Force Recommendations. Performed By: #### 4 5033 #### LAB [address] [place] [address] Cameron Vanegas M.D. [id number] Protein [Mass/Vol] 7.8 g/dL Normal 6.0-8.0 [facility] Comment on above: Order Comment: [facility] has implemented the eGFR calculation approach that does not have a coefficient for race that conforms to the NKF-ASN Task Force Recommendations. Performed By: #### 4 5033 #### LAB [address] [place] [address] Cameron Vanegas M.D. [id number] Sodium [Moles/Vol] 136 mmol/L Normal 135-145 [facility] Comment on above: Order Comment: [facility] has implemented the eGFR calculation approach that does not have a coefficient for race that conforms to the NKF-ASN Task Force Recommendations. Performed By: #### 4 5033 #### [facility] [address] [place] [address] Cameron Vanegas M.D. [id number] Urea nitrogen [Mass/Vol] 13 mg/dL Normal 8-25 [facility] Comment on above: Order Comment: [facility] has implemented the eGFR calculation approach that does not have a coefficient for race that conforms to the NKF-ASN Task Force Recommendations. Performed By: #### 4 5033 #### LAB [address] [place], [place] [address] Cameron Vanegas M.D. [id number] Urea nitrogen/Creatinine [Mass ratio] 11.4 mg/mg Normal 10.0-20.0 [facility] Comment on above: Order Comment: [facility] has implemented the eGFR calculation approach that does not have a coefficient for race that conforms to the NKF-ASN Task Force Recommendations. Performed By: #### 4 5033 #### LAB [address] [place], [place] [address] Cameron Vanegas M.D. [id number] CONSULTon 09-06-2024 CONSULT CONSULT NOTE Patient Name: Maryse Mak Admit Date: [id number] MR #: [id number] : 1955 Physicians: Rayo Jaimes MD (Family); Jaguar Ordaz MD (Referring) Aristeo Beavers MD (Hand and Micro Surgery) Assessment and Plan: Other Cellulitis of right hand Assessment & Plan 69 y.o. male presents with cellulitis of the right hand in the setting of burn wounds sustained 5 days earlier - D/w Dr. Beavers - I&D of the right thumb proximal phalanx performed (see procedure note) - Cultures obtained and walked to the lab - Recommend admission for IV abx, abx continued from [facility] - Begin BID warm soapy soaks with packing changes - Multimodal pain control - Hand surgery well reassess in the AM - If no significant improvement seen patient may require formal I&D - NPO at midnight as precaution - Please contact hand surgery [facility] consulting technical director with questions/concerns Chief Complaint/Reason for Visit: Right hand pain, concern for FTS History of Present Illness: Maryse Mak is a 69 y.o. right hand dominant male presenting from [facility] with c/o right hand pain 2/2 reported burn. Patient states he was working on his car about 5 days ago when he sustained patel to the volar and dorsal aspects of his hand. States he did okay for the first 2-3 days afterwards but about 2 days ago he started to notice worsening pain and swelling in the hand. He also had had nausea and decreased appetite. He was seen in the ED yesterday and prescribed PO abx for cellulitis and discharged. He represented today due to worsening symptoms and overall not felling well. States the pain in his hand is severe, a 9/10 and reports he is unable to move his thumb due to pain. Does endorse the majority of the pain is along the volar aspect of his thumb. He denies any puncture wounds that he is aware of. History: Past Medical History: Diagnosis Date Alcohol abuse 06/19/2019 Arthritis Chronic back pain Chronic obstructive pulmonary disease (HCC) 02/07/2024 Clotting disorder DVT Cocaine abuse ([facility]) 10/28/2017 Coronary artery disease moderate stenosis of LAD and mild plaque in other vessels Homeless 06/19/2019 Hyperlipidemia Hypertension Tobacco dependence 04/29/2020 Past Surgical History: Procedure Laterality Date BACK SURGERY BRING BACK OPEN HEART N/A 08/19/2022 Procedure: STERNAL WOUND EXPLORATION; Surgeon: Wood Eng MD; Location: Main OR; Service: Cardiothoracic CABG W/ RADIAL ARTERY HARVEST N/A 11/20/2021 Procedure: CORONARY ARTERY BYPASS GRAFT X2 AND LEFT AND RIGHT INTERNAL MAMMARY ARTERY GRAFTS; Surgeon: Wood Eng MD; Location: Main OR; Service: Cardiothoracic CARDIAC CATHETERIZATION N/A 11/07/2021 Procedure: Coronary Angiogram; Surgeon: Minoo Grimm MD; Location: [facility]; Service: Cardiovascular CV IR INTERVENTIONAL RADIOLOGY N/A 09/01/2022 Procedure: VR Aspiration Sternal seroma; Surgeon: Florencio Chambers MD; Location: IR LAB; Service: Interventional Radiology HC LEFT HEART CATH N/A 11/07/2021 Procedure: Left Heart Cath; Surgeon: Minoo Grimm MD; Location: [facility] [employer] [facility]; Service: Cardiovascular left arm leg sx right and left blood clots Bilateral 2009 in [facility] SHOULDER SURGERY STERNAL WIRING N/A 08/06/2022 Procedure: STERNAL INTERNAL FIXATION WITH PLATING AND SCREWS; Surgeon: Wood Eng MD; Location: Main OR; Service: Cardiothoracic Family History Problem Relation Age of Onset Heart disease Father Heart attack Father Heart attack Maternal Uncle Heart disease Maternal Uncle Social History [1] Allergy Information: I have reviewed the patient's allergies. Felix inhibitors and Atorvastatin Home Medications: Outpatient Medications as of 09/06/2024 Medication Sig aspirin 81 MG EC tablet Take 1 (one) tablet (81 mg total) by mouth daily . atorvastatin (LIPITOR) 40 MG tablet Take 1 (one) tablet (40 mg total) by mouth . gabapentin (NEURONTIN) 800 MG tablet Take 1 (one) tablet (800 mg total) by mouth 3 (three) times a day . HYDROcodone-acetaminop hen (NORCO) 7.5-325 mg per tablet Take 1 (one) tablet by mouth every 6 (six) hours as needed for pain . NIFEdipine (ADALAT CC) 30 MG 24 hr tablet Take 1 (one) tablet (30 mg total) by mouth daily . sulfamethoxazole-trime thoprim (BACTRIM DS,SEPTRA DS) 800-160 mg per tablet Take 1 (one) tablet by mouth 2 (two) times a day for 10 days . traMADol (ULTRAM) 50 mg tablet Take 1 (one) tablet (50 mg total) by mouth every 6 (six) hours as needed . Review of Systems: The following system(s) were reviewed and pertinent findings noted: Neuro: + baseline numbness Integumentary: +patel, redness MuscSkel: + right hand pain Physical Examination: Vital Signs: BP (!) 150/77 (BP Location: Left arm, Patient Position: Lying) Pulse 82 Temp 98.2 degrees F (36.8 degrees C) (Oral) Resp 16 Ht 6' Wt 93 kg (205 lb) SpO2 94% BMI 27.80 kg/m (more content not included)... Normal [facility] CRP, INFLAMMATIONon 09-07-19 25 CRP [Mass/Vol] 194.0 mg/L High 0.0-10.0 [facility] Comment on above: Performed By: #### 4 5334 #### LAB [address] [place], [place] [address] Cameron Vanegas M.D. [id number] CT ANGIOGRAM HEAD NECKon CT ANGIOGRAM HEAD NECK EXAMINATION: CT ANGIOGRAM HEAD NECK, 09/06/2024 3:02 pm TECHNIQUE: Routine protocol multiplanar reformatted axial CTA acquisition following uneventful intravenous administration of nonionic iodinated contrast media. MIP and 3D VR reconstructions. Source data reviewed on an independent 3-D workstation. Preliminary multiplanar reformatted noncontrast head CT. IOPAMIDOL 370 MG IODINE/ML (76 %) INTRAVENOUS SOLUTION - 75 mL, At least one of the following dose reduction techniques was utilized: Iterative reconstruction, and/or Automatic Exposure Control, and/or mA/kV adjustment based on body size. INDICATION: headache started this morning. wobbliness x2 days per patient. cellulitis on upper extremity Injury/Trauma or Illness?:Illness/Other How long have you had these symptoms (acute/chronic)?:Acute Reason for exam?:headache started this morning. wobbliness x2 days per patient. cellulitis on upper extremity Type of Exam?:Initial Additional signs and symptoms?:n/a M65.949 Flexor tenosynovitis of thumb COMPARISON: 08/04/[address] FINDINGS: Head CT: No acute infarct, arterial thrombosis or hemorrhage demonstrated. [id number]-[id number] frontoparietal predominant burden of patchy subcortical white matter hypodensity bilaterally. Brain and CSF spaces are not otherwise remarkable. Cranial CTA: No significant intracranial arterial occlusive change. No aneurysm or vascular malformation defined. Unremarkable intracranial venous opacification. Cervical CTA: Left aortic arch. Moderately severe partially calcific plaque at left carotid bulb. Approximate 60% proximal left ICA stenosis by NASCET criteria. Codominant vertebral arteries. Extracranial carotid and vertebral arterial course, caliber and luminal contour not otherwise remarkable. OTHER: Moderately advanced multilevel upper cervical facet arthrosis and C5-6 and C6-7 spondylosis. Notable right C3-4, left C4-5, right C5-6 and left C6-7 osteophyte foraminal encroachment. No critical degenerative central canal compromise incidentally demonstrated. Carious mandibular dentition. IMPRESSION: No acute infarct, arterial thrombosis or hemorrhage demonstrated Mild to moderate probable chronic microvascular ischemic and/or hypertensive white matter change No emergent thrombotic large vessel occlusion Approximate 60% proximal left ICA stenosis. Consider baseline carotid Doppler correlation. See additional anatomic observations above Workstation ID: [id number] Dictated by: GENEVIEVE CORMIER on WedSep 06, 2024 3:17:59 PM EDT Transcribed by: GENEVIEVE CORMIER on WedSep 06, 2024 3:17:59 PM EDT Finalized by: GENEVIEVE CORMIER on WedSep 06, 2024 3:17:59 PM EDT Normal [facility] Comment on above: Order Comment: Injur y/Trauma or Illness?:Illness/OtherHow long have you had these symptoms (acute/chronic)?:AcuteReason for exam?:headache started this morning. wobbliness x2 days per patient. cellulitis on upper extremityType of Exam?:InitialAdditional signs and symptoms?:n/a DRUGS OF ABUSE SCREEN, URINE on 09-06-2024 AMPHETAMINE SCREEN, URINE Not detected Normal None Detected [facility] Comment on above: Order Comment: Scree n results should be used for treatment purposes only. Specimen will be kept for 2 weeks, if the sample is adequate. Confirmation testing can be initiated by calling the lab within 2 weeks. Result Comment: Urin e Amphetamine Cutoff: < 1000 ng/mL = None Detected Performed By: #### 4 [id number] #### LAB [address] [place] [address] Cameron Vanegas M.D. [id number] BARBITURATE SCREEN URINE Not detected Normal None Detected [facility] Comment on above: Order Comment: Scree n results should be used for treatment purposes only. Specimen will be kept for 2 weeks, if the sample is adequate. Confirmation testing can be initiated by calling the lab within 2 weeks. Result Comment: Urin e Barbiturates Cutoff: < 200 ng/mL = None Detected Performed By: #### [id number] #### [facility] [address] [place] [address] Cameron Vanegas M.D. [id number] BENZODIAZEPINE SCREEN, URINE Not detected Normal None Detected [facility] Comment on above: Order Comment: Scree n results should be used for treatment purposes only. Specimen will be kept for 2 weeks, if the sample is adequate. Confirmation testing can be initiated by calling the lab within 2 weeks. Result Comment: Urin e Benzodiazepine Cutoff: < 200 ng/mL = None Detected Performed By: #### [id number] #### [facility] [address] [place] [address] Cameron Vanegas M.D. [id number] BUPRENORPHINE, URINE Not detected Normal None Detected [facility] Comment on above: Order Comment: Scree n results should be used for treatment purposes only. Specimen will be kept for 2 weeks, if the sample is adequate. Confirmation testing can be initiated by calling the lab within 2 weeks. Result Comment: Urin e Buprenorphine Cutoff: < 5 ng/mL = None Detected Performed By: #### [id number] #### LAB [address] [place] [address] Cameron Vanegas M.D. [id number] CANNABINOID SCREEN URINE Not detected Normal None Detected [facility] Comment on above: Order Comment: Scree n results should be used for treatment purposes only. Specimen will be kept for 2 weeks, if the sample is adequate. Confirmation testing can be initiated by calling the lab within 2 weeks. Result Comment: Urin e Cannabinoids Cutoff: < 50 ng/mL = None Detected Performed By: #### [id number] #### LAB [address] [place] [address] Cameron Vanegas M.D. [id number] COCAINE, SCREEN URINE Positive Abnormal None Detected [facility] Comment on above: Order Comment: Scree n results should be used for treatment purposes only. Specimen will be kept for 2 weeks, if the sample is adequate. Confirmation testing can be initiated by calling the lab within 2 weeks. Result Comment: Urin e Cocaine Cutoff: < 300 ng/mL = None Detected Performed By: #### [id number] #### LAB [address] [place] [address] Cameron Vanegas M.D. [id number] FENTANYL, URINE Not detected Normal None Detected [facility] Comment on above: Order Comment: Scree n results should be used for treatment purposes only. Specimen will be kept for 2 weeks, if the sample is adequate. Confirmation testing can be initiated by calling the lab within 2 weeks. Result Comment: Urin e Fentanyl Cutoff: < 1 ng/mL = None Detected Performed By: #### [id number] #### [facility] [address] [place] [address] Cameron Vanegas M.D. [id number] METHADONE SCREEN, URINE Not detected Normal None Detected [facility] Comment on above: Order Comment: Scree n results should be used for treatment purposes only. Specimen will be kept for 2 weeks, if the sample is adequate. Confirmation testing can be initiated by calling the lab within 2 weeks. Result Comment: Urin e Methadone Cutoff: < 300 ng/mL = None Detected Performed By: #### [id number] #### LAB [address] [place], [place] [address] Cameron Vanegas M.D. [id number] OPIATE SCREEN URINE Positive Abnormal None Detected [facility] Comment on above: Order Comment: Scree n results should be used for treatment purposes only. Specimen will be kept for 2 weeks, if the sample is adequate. Confirmation testing can be initiated by calling the lab within 2 weeks. Result Comment: Urin e Opiates Cutoff: < 300 ng/mL = None Detected Performed By: #### [id number] #### [facility] [address] [place], [place] [address] Cameron Vanegas M.D. [id number] OXYCODONE SCREEN, URINE Not detected Normal None Detected [facility] Comment on above: Order Comment: Scree n results should be used for treatment purposes only. Specimen will be kept for 2 weeks, if the sample is adequate. Confirmation testing can be initiated by calling the lab within 2 weeks. Result Comment: Urin e Oxycodone Cutoff: < 100 ng/mL = None Detected Performed By: #### [id number] #### LAB [address] [place], [place] [address] Cameron Vanegas M.D. [id number] ED Prov Noteon 09-06-2024 ED Prov Note ED PROVIDER NOTE [facility] NAME: Maryse Mak AGE: 69 y.o. : 1955 VISIT DATE: 09/06/2024 CSN: [id number] PCP: Rayo Jaimes MD Chief Complaint Patient presents with Hand Injury Patient is a 69-year-old male with history of alcohol abuse, arthritis, COPD, cocaine abuse, CAD, HTN who presents with a hand injury. Patient arrives as a transfer from [facility]. He states that a few days ago he was working on his car and accidentally burned his right thumb. He states that since then he has had spreading redness, pain, and swelling to his right hand. He reports he is unable to bend his right thumb and right index finger. He also states that since he burned his finger he has felt unstable while walking. Denies fall or syncope. Denies room spinning sensation. Denies chest pain, shortness of breath, nausea, vomiting, abdominal pain, headache, visual disturbance. Vital signs reviewed. Hand Injury Associated symptoms: tenderness Past Medical History: Diagnosis Date Alcohol abuse 06/19/2019 Arthritis Chronic back pain Chronic obstructive pulmonary disease (HCC) 02/07/2024 Clotting disorder DVT Cocaine abuse ([facility]) 10/28/2017 Coronary artery disease moderate stenosis of LAD and mild plaque in other vessels Homeless 06/19/2019 Hyperlipidemia Hypertension Tobacco dependence 04/29/2020 Past Surgical History: Procedure Laterality Date BACK SURGERY BRING BACK OPEN HEART N/A 08/19/2022 Procedure: STERNAL WOUND EXPLORATION; Surgeon: Wood Eng MD; Location: Main OR; Service: Cardiothoracic CABG W/ RADIAL ARTERY HARVEST N/A 11/20/2021 Procedure: CORONARY ARTERY BYPASS GRAFT X2 AND LEFT AND RIGHT INTERNAL MAMMARY ARTERY GRAFTS; Surgeon: Wood Eng MD; Location: Main OR; Service: Cardiothoracic CARDIAC CATHETERIZATION N/A 11/07/2021 Procedure: Coronary Angiogram; Surgeon: Minoo Grimm MD; Location: [facility] [employer] [employer]; Service: Cardiovascular CV IR INTERVENTIONAL RADIOLOGY N/A 09/01/2022 Procedure: VR Aspiration Sternal seroma; Surgeon: Florencio Chambers MD; Location: IR LAB; Service: Interventional Radiology HC LEFT HEART CATH N/A 11/07/2021 Procedure: Left Heart Cath; Surgeon: Minoo Grimm MD; Location: [facility] [employer] [employer]; Service: Cardiovascular left arm leg sx right and left blood clots Bilateral 2009 in [facility] SHOULDER SURGERY STERNAL WIRING N/A 08/06/2022 Procedure: STERNAL INTERNAL FIXATION WITH PLATING AND SCREWS; Surgeon: Wood Eng MD; Location: Main OR; Service: Cardiothoracic Family History Problem Relation Age of Onset Heart disease Father Heart attack Father Heart attack Maternal Uncle Heart disease Maternal Uncle Social History [1] Previous Medications Medication Sig aspirin 81 MG EC tablet Take 1 (one) tablet (81 mg total) by mouth daily . atorvastatin (LIPITOR) 40 MG tablet Take 1 (one) tablet (40 mg total) by mouth . gabapentin (NEURONTIN) 800 MG tablet Take 1 (one) tablet (800 mg total) by mouth 3 (three) times a day . HYDROcodone-acetaminop hen (NORCO) 7.5-325 mg per tablet Take 1 (one) tablet by mouth every 6 (six) hours as needed for pain . NIFEdipine (ADALAT CC) 30 MG 24 hr tablet Take 1 (one) tablet (30 mg total) by mouth daily . sulfamethoxazole-trime thoprim (BACTRIM DS,SEPTRA DS) 800-160 mg per tablet Take 1 (one) tablet by mouth 2 (two) times a day for 10 days . traMADol (ULTRAM) 50 mg tablet Take 1 (one) tablet (50 mg total) by mouth every 6 (six) hours as needed . Allergies[2] Review of Systems Eyes: Negative for visual disturbance. Respiratory: Negative for shortness of breath. Cardiovascular: Negative for chest pain. Gastrointestinal: Negative for abdominal pain, nausea and vomiting. Musculoskeletal: Positive for arthralgias. Skin: Positive for wound. Neurological: Negative for syncope and headaches. Patient Vitals for the past 24 hrs: BP Temp Temp src Pulse Resp SpO2 Height Weight 09/07/24 0730 116/80 -- -- 64 16 94 % -- -- 09/07/24 0710 -- -- -- -- 18 -- -- -- 09/07/24 0709 117/75 -- -- 74 18 94 % -- -- 09/07/24 0205 -- -- -- -- 18 -- -- -- 09/07/24 0019 (!) 144/83 98.4 degrees F (36.9 degrees C) Oral 75 16 94 % -- -- 09/06/242247 -- -- -- -- 16 -- -- -- 09/06/242233 138/87 98.4 degrees F (36.9 degrees C) Oral 74 16 98 % -- -- 09/06/242227 -- -- -- -- 16 -- -- -- 09/06/242029 -- -- -- -- 16 -- -- -- 09/06/242028 (!) 154/76 -- -- 78 16 98 % -- -- 09/06/24 192 -- -- -- -- 16 -- -- -- 04/23/25 1902 -- -- -- -- 16 -- -- -- 09/06/24 1751 -- -- -- -- -- 94 % -- -- 09/06/24 1742 (!) 150/77 98.2 degrees F (36.8 degrees C) Oral 82 15 95 % 6' 93 kg (205 lb) Physical Exam Vitals and nursing note reviewed. Constitutional: General: He is not in acute distress. Appearance: Normal appearance. He is not ill-appearing. Comments: Patient is pleasant and answers qu (more content not included)... Normal [facility] ED Prov Note [facility] EMERGENCY DEPARTMENT ATTENDING NOTE: NAME: Maryse Mak CSN: [id number] 69 y.o. PCP: Rayo Jaimes MD History: Chief Complaint: Wound Check and Gait Problem HPI: 69-year-old male smoker past medical history of hypertension hyperlipidemia CAD COPD not on oxygen alcohol abuse (obtained from past medical history listed on EMR, patient denied any past medical history) presents to the emergency department as a walk-in for evaluation of right hand pain symptoms that been worsening over the past week following a burn 1 week ago though more so over the past 48 hours. Patient reports associated symptoms of swelling and redness. Patient states that he was prescribed Bactrim for his symptoms. Patient also notes that he has been feeling offkilter and wobbly with his walking for the past 2 days, and today reports headache symptoms that started on 10 AM with associated photophobia. No specific alleviating or aggravating factors. No recent travel known sick contacts. Patient just started antibiotics recently. Patient denies any other symptoms at this time PMHx: Past Medical History: Diagnosis Date Alcohol abuse 06/19/2019 Arthritis Chronic back pain Chronic obstructive pulmonary disease (HCC) 02/07/2024 Clotting disorder DVT Cocaine abuse (HCC) 10/28/2017 Coronary artery disease moderate stenosis of LAD and mild plaque in other vessels Homeless 06/19/2019 Hyperlipidemia Hypertension Tobacco dependence 04/29/2020 PMSx: Past Surgical History: Procedure Laterality Date BACK SURGERY BRING BACK OPEN HEART N/A 08/19/2022 Procedure: STERNAL WOUND EXPLORATION; Surgeon: Wood Eng MD; Location: Main DC; Service: Cardiothoracic CABG W/ RADIAL ARTERY HARVEST N/A 11/20/2021 Procedure: CORONARY ARTERY BYPASS GRAFT X2 AND LEFT AND RIGHT INTERNAL MAMMARY ARTERY GRAFTS; Surgeon: Wood Eng MD; Location: Main OR; Service: Cardiothoracic CARDIAC CATHETERIZATION N/A 11/07/2021 Procedure: Coronary Angiogram; Surgeon: Minoo Grimm MD; Location: [employer] [employer]; Service: Cardiovascular CV IR INTERVENTIONAL RADIOLOGY N/A 09/01/2022 Procedure: VR Aspiration Sternal seroma; Surgeon: Florencio Chambers MD; Location: IR LAB; Service: Interventional Radiology HC LEFT HEART CATH N/A 11/07/2021 Procedure: Left Heart Cath; Surgeon: Minoo Grimm MD; Location: [facility] [employer]; Service: Cardiovascular left arm leg sx right and left blood clots Bilateral 2009 in [facility] SHOULDER SURGERY STERNAL WIRING N/A 08/06/2022 Procedure: STERNAL INTERNAL FIXATION WITH PLATING AND SCREWS; Surgeon: Wood Eng MD; Location: Main OR; Service: Cardiothoracic FAM. Hx: Family History Problem Relation Age of Onset Heart disease Father Heart attack Father Heart attack Maternal Uncle Heart disease Maternal Uncle SOC. Hx: Social History [1] MEDs: Previous Medications Medication Sig aspirin 81 MG EC tablet Take 1 (one) tablet (81 mg total) by mouth daily . gabapentin (NEURONTIN) 800 MG tablet Take 1 (one) tablet (800 mg total) by mouth 3 (three) times a day . HYDROcodone-acetaminop hen (NORCO) 7.5-325 mg per tablet Take 1 (one) tablet by mouth every 6 (six) hours as needed for pain . NIFEdipine (ADALAT CC) 30 MG 24 hr tablet Take 1 (one) tablet (30 mg total) by mouth daily . sulfamethoxazole-trime thoprim (BACTRIM DS,SEPTRA DS) 800-160 mg per tablet Take 1 (one) tablet by mouth 2 (two) times a day for 10 days . traMADol (ULTRAM) 50 mg tablet Take 1 (one) tablet (50 mg total) by mouth every 6 (six) hours as needed . ALL: Allergies[2] Physical Exam: Patient Vitals for the past 24 hrs: BP Temp Temp src Pulse Resp SpO2 Height Weight 09/06/24 1621 (!) 122/91 -- -- 63 15 96 % -- -- 09/06/24 1430 (!) 122/91 -- -- 63 15 96 % -- -- 09/06/24 1405 -- -- -- -- 16 -- -- -- 09/06/24 1345 122/81 -- -- 73 (!) 20 95 % -- -- 09/06/24 1255 (!) 142/79 97.9 degrees F (36.6 degrees C) Oral 84 (!) 20 93 % 6' 93 kg (205 lb) Physical Exam Vitals and nursing note reviewed. Constitutional: General: He is awake. HENT: Head: Normocephalic and atraumatic. Right Ear: External ear normal. Left Ear: External ear normal. Nose: Nose normal. Mouth/Throat: Mouth: Mucous membranes are dry. Pharynx: Oropharynx is clear. Eyes: General: Lids are normal. No scleral icterus. Extraocular Movements: Extraocular movements intact. Pupils: Pupils are equal, round, and reactive to light. Cardiovascular: Rate and Rhythm: Normal rate. Pulmonary: Effort: Pulmonary effort is normal. No accessory muscle usage or respiratory distress. Skin: General: Skin is warm. Findings: No rash. Comments: No acute rash visualized on exposed skin Neurological: Mental Status: He is alert and oriented to person, place, and time. GCS: GCS eye subscore is 4. GCS verbal subscore is 5. GCS motor subscore is 6. Cranial Nerves (more content not included)... Normal [facility] H AND James 09-06-2024 H AND P -- Attestation signed by Denilson Esquivel DO at 09/06/2024 9:12 PM I have personally performed a [id number] diagnostic evaluation of this patient on 09/06/2024. After discussing the case with David Lee PA-C, I performed the substantive part of the medical decision making for this encounter and approved the RUCHI's plan of care with the following additions: Patient is a 69-year-old male who presented to [facility] with cellulitis of the right hand in the setting of burn wounds sustained 5 days prior to admission. XR right hand nonacute. S/p I&D of the right thumb proximal phalanx in ED by hand surgery, cultures pending. Noted to have leukocytosis of 19.29 with elevated inflammatory markers, CRP 194. Blood Cx collected. Initiated on vancomycin and Rocephin. He also endorsed vertiginous symptoms with headache. Symptoms are worse with movement. CTA head/neck nonacute, noted to have 69% left ICA stenosis, 60% left ICA stenosis. Will check A1c and lipid panel. PT consulted for vestibular therapy. Physical Exam (Focused elements based on presentation): BP (!) 154/76 Pulse 78 Temp 98.2 degrees F (36.8 degrees C) (Oral) Resp 16 Ht 6' Wt 93 kg (205 lb) SpO2 98% BMI 27.80 kg/m General: NAD Eyes: EOMI, sclera clear ENT: neck supple Cardiovascular: Regular rate, no murmur Respiratory: Clear to auscultation, symmetric air entry Gastrointestinal: Soft, non tender, non distended, positive bowel sounds Genitourinary: no CVA tenderness Musculoskeletal: Right hand swelling, pain to palpation, pain with passive extension unable to make fist secondary to pain Skin: warm, dry, no LE edema Neuro: Alert, oriented x3, no focal motor deficits Psych: Mood appropriate [facility] History and Physical Note 09/06/24 Maryse Mak 1955 [id number] Assessment/Plan: Maryse Mak is a 69 y.o. male with a history of CAD, HTN who presented to the [facility] ED for right had cellulitis, ortho evaluated and had concern for flexor tenosynovitis. S/p Vanc and zosyn and patient transferred to [facility] 09/06/2024 for hand surgery evaluation. Trop 23-21, WBC 19.29, CRP 194, UDS + for cocaine and opiates. CTA H/n without acute infarct. Right Hand Cellulitis: with concern for flexor tenosynovitis in setting of pain with passive extension, ascending lymphangitis. 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 In ED: WBC 19.29 CRP 194, x-ray right hand without acute findings. S/p I&D by hand surgery in ED. Twice daily warm soapy soaks. Continue Vancomycin. Transitioned zosyn to Rocephin on admit. Wound and Bcx pending. Hand surgery following Vertiginous syndrome: With associated headache. Reported 3 days of off-balance sensation, dizziness worse with movement. In ED: CTA head and neck without acute infarct, 69 proximal left ICA 60% proximal left ICA stenosis. Prn meclizine ordered. IVF bolus ordered. Elevated Troponin: Trop 23->21, ECG NSR witn non specific T wave changes. Denied chest pain on admission CAD: S/p CABG in 2021. Continued home statin. Held ASA HTN: Per hx, Continued home CCB Tobacco Use: Smokes 1PPD, declined nicotine patch. Cessation encouraged Code status: Full DVT Prophylaxis: scds Medication Reconciliation: Reviewed using Patient interview, dispense report Current living situation: Home Expected Disposition: Same Estimated discharge date: TBD Medically Ready for Discharge: no as above Admitted with these risk variables:None. Please see assessment and plan for further details. Chief Complaint: Right hand Cellulitis History of Present Illness: Maryse Mak is a 69 y.o. male with a history of CAD, COPD, HTN who presented to the [facility] ED for right had cellulitis, ortho evaluated and had concern for flexor tenosynovitis. S/p Vanc and zosyn and patient transferred to [facility] 09/06/2024 for hand surgery evaluation. Trop 23-21, WBC 19.29, CRP 194, UDS + for cocaine and opiates. CTA H/n without acute infarct. Patient seen evaluated room 95. Patient is a 67-year-old male who presented to the ED for evaluation of right hand cellulitis. Patient was changed from outlying facility secondary to this. Patient reports start about 5 days ago when he noticed a burn to his hand after working on his car. He did attempt to place Neosporin on this without relief endorsing increasingly larger hand size, sausage digits and noticed red streaking up his arm. He had been started on Bactrim without improvement in the ED yesterday. Hand surgery saw patient in the ED status post I&D with patient reported minimal drainage. Continued antibiotics. Patient is also endorsed dizziness and off-balance sensation over the past 3 days. States worse with different eye movements. Feels unbalanced walking. Ordered meclizine. CT in ED (more content not included)... Normal [facility] Incision and drainageon 08-16 Sebas Howard PA-C 09/06/2024 8:09 PM Incision and drainage Date/Time: 09/06/2024 8:08 PM Performed by: Sebas Howard PA-C Authorized by: Sebas Howard PA-C Verbal consent: obtained Consent given by: patient Relevant documents: Relevent documents present and verified. Medical history, medications, allergies and physical assessment reviewed/completed Test results: test results available and properly labeled Relevant imaging studies available and labeled: Yes Patient identity confirmed: provided demographic data and verified patient name and Type: abscess Body area: upper extremity Location details: right thumb Anesthesia: digital block Anesthesia: Local Anesthetic: lidocaine 1% without epinephrine and bupivacaine 0.5% without epinephrine Anesthetic total: 10 mL Patient sedated: no Skin preparation: Betadine Scalpel size: 15 Incision type: single straight Incision depth: dermal Complexity: simple Drainage: bloody Drainage amount: moderate Wound treatment: wound left open Packing material: 1/4 in gauze Patient tolerance: patient tolerated the procedure well with no immediate complications [facility] MAGNESIUM LEVELon 09-06-2024 Magnesium [Mass/Vol] 2.3 mg/dL Normal 1.6-2.4 [facility] Comment on above: Performed By: #### [id number] #### [facility] [address] [place], [place] [address] Cameron Vanegas M.D. [id number] MR HAND RIGHT WITH AND WITHO UT CONTRASTon 09-06-2024 MR HAND RIGHT WITH AND WITHOUT CONTRAST EXAMINATION: MR HAND RIGHT WITH AND WITHOUT CONTRAST HISTORY: ORDERING SYSTEM PROVIDED HISTORY: right hand infection - eval for deep space infection, tenosynovitis, TECHNOLOGIST PROVIDED HISTORY: Illness/Other Reason for exam: s/p burn on thumb 3 days ago Encounter Type: Ongoing Additional signs and symptoms: s/p burn on thumb 3 days ago ORDERING SYSTEM PROVIDED DIAGNOSIS CODES: L03.113 Cellulitis of right hand D72.829 Leukocytosis, unspecified type T15.90XA Foreign body in eye COMPARISON: None. TECHNIQUE: Multiplanar, multisequence imaging of the right thumb with and without IV contrast. CONTRAST: GADOTERATE MEGLUMINE 0.5 MMOL/ML (376.9 MG/ML) INTRAVENOUS SOLUTION - 19 mL, FINDINGS: Motion throughout challenges my evaluation. Circumferential soft tissue swelling/edema and skin thickening around the thumb consistent with cellulitis. There is soft tissue ulceration/defect along the volar aspect of the thumb near the proximal phalanx. There is tenosynovitis of the flexor tendon of the thumb without tendon tear. Edema in the thenar musculature noted. No pathologic joint effusion in the thumb. There is a nonspecific foreign body in the soft tissues superficial to the thumb flexor tendon measuring 13 x 7 x 9 mm as seen on sagittal T1 image 17. No convincing evidence of osteomyelitis or drainable abscess. There is also tenosynovitis of the flexor tendons of the other partially visualized digits of the hand. 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 IMPRESSION: Circumferential soft tissue swelling/edema and skin thickening around the thumb consistent with cellulitis. There is soft tissue ulceration/defect along the volar aspect of the thumb near the proximal phalanx. There is tenosynovitis of the flexor tendon of the thumb without tendon tear. Edema in the thenar musculature noted. No pathologic joint effusion in the thumb. There is a nonspecific foreign body in the soft tissues superficial to the thumb flexor tendon measuring 13 x 7 x 9 mm as seen on sagittal T1 image 17. No convincing evidence of osteomyelitis or drainable abscess. There is also tenosynovitis of the flexor tendons of the other partially visualized digits of the hand. PD/cdr Workstation ID: [id number] Dictated by: KYLE NUNEZ on WedSep 07, 2024 8:57:44 AM EDT Transcribed by: GIFTY CRUZ on WedSep 07, 2024 9:09:28 AM EDT Finalized by: KYLE NUNEZ on WedSep 07, 2024 11:23:27 AM EDT Normal [facility] Comment on above: Order Comment: Injur y/Trauma or Illness?:Illness/Other How long have you had these symptoms (acute/chronic)?:Acute Reason for exam?:s/p burn on thumb 3 days ago Type of Exam?:Ongoing Additional signs and symptoms?:s/p burn on thumb 3 days ago NT PRO BNPon 09-06-2024 Natriuretic peptide B (Bld) [Mass/Vol] 162 pg/mL Normal 0-300 [facility] Comment on above: Order Comment: Pride Study Cut-offsRule In:< /= 50 Years >450 pg/mL51 Years - 75 Years >900 pg/mL76 Years - 99 Years >1800 pg/mLRule Out:All patients <300 pg/mL Performed By: #### 4 [id number] #### LAB [address] [place] [address] Cameron Vanegas M.D. [id number] POC VENOUS [facility]LO[facility] BASE EXCESS, VENOUS 1.3 Normal -2.0-2.0 [facility] Comment on above: Performed By: #### 4 [id number] #### [facility] [address] [place] [address] Cameron Vanegas M.D. [id number] CALCIUM IONIZED 4.6 mg/dL Normal 4.5-5.3 [facility] Comment on above: Performed By: #### 4 [id number] #### LAB [address] [place] [address] Cameron Vanegas M.D. [id number] CARBOXYHEMOGLOBIN 3.3 % of total Hb High <=1.5 [facility] Comment on above: Result Comment: Refe rence Ranges: Suburban Non-smokers: <1.5% Smokers: 1.5-5.0% Heavy Smokers: 5.0-9.0% Performed By: #### 4 5033 #### LAB [address] [address] Cameron Vanegas M.D. [id number] Chloride [Moles/Vol] 102 mmol/L Normal 98-108 [facility] Comment on above: Performed By: #### 4 5033 #### LAB [address] [address] Cameron Vanegas M.D. [id number] Glucose [Mass/Vol] 80 mg/dL Normal 65-99 [facility] Comment on above: Performed By: #### 4 5033 #### MH LAB [address] [address] Cameron Vanegas M.D. [id number] HCO3 (Bld) [Moles/Vol] 27.7 mmol/L Normal 24.0-28.0 [facility] Comment on above: Performed By: #### 4 5033 #### LAB [address] [address] Cameron Vanegas M.D. [id number] Hematocrit (Bld) [Volume fraction] 48.2 % Normal 41.0-53.0 [facility] Comment on above: Performed By: #### 4 5033 #### LAB [address] [address] Cameron Vanegas M.D. [id number] Hemoglobin (Bld) [Mass/Vol] 15.7 g/dL Normal 13.5-17.5 [facility] Comment on above: Performed By: #### 4 5033 #### LAB [address] [address] Cameron Vanegas M.D. [id number] LACTIC ACID, WHOLE BLOOD 1.2 mmol/L Normal 0.6-2.0 [facility] Comment on above: Performed By: #### 4 5033 #### LAB [address] [address] Cameron Vanegas M.D. [id number] METHEMOGLOBIN < Normal 0.0-2.0 [facility] Comment on above: Performed By: #### 4 5033 #### MH LAB [address] [address] Cameron Vanegas M.D. [id number] O2HB 45.7 % Normal No established reference range [facility] Comment on above: Performed By: #### 4 5033 #### LAB [address] [address] Cameron Vanegas M.D. [id number] Oxygen saturation in Blood 47.7 % Normal 40.0-70.0 [facility] Comment on above: Performed By: #### 4 5033 #### LAB [address] [address] Cameron Vanegas M.D. [id number] PCO2 VENOUS 49.1 mm Hg Normal 41.0-51.0 [facility] Comment on above: Performed By: #### 4 5033 #### LAB [address] [address] Cameron Vanegas M.D. [id number] PH VENOUS 7.36 Normal 7.32-7.42 [facility] Comment on above: Performed By: #### 4 5033 #### LAB [address] [address] Cameron Vanegas M.D. [id number] PO2 VENOUS < Normal 25-40 [facility] Comment on above: Result Comment: Caut ion: pO2 reference ranges for some specimen types are lower than the measuring range of the instrument. Performed By: #### 4 5033 #### LAB [address] [address] Cameron Vanegas M.D. [id number] Potassium [Moles/Vol] 3.9 mmol/L Normal 3.5-5.1 [facility] Comment on above: Performed By: #### 4 5033 #### LAB [address] [address] Cameron Vanegas M.D. [id number] Sodium [Moles/Vol] 138 mmol/L Normal 135-145 [facility] Comment on above: Performed By: #### 4 5033 #### LAB [address] [address] Cameron Vanegas M.D. [id number] SPECIMEN SOURCE RADIANCE Not specified Normal [facility] Comment on above: Performed By: #### 4 5033 #### MH LAB [address] [address] Cameron Vanegas M.D. [id number] PROCALCITONINon 09-06-2024 PROCALCITONIN 0.66 ng/ml High <0.50 [facility] Comment on above: Order Comment: Resul ts of 0.50 and 2.00 ng/ml are indeterminate and should be repeated within 6-24 hours. Performed By: #### 4 7652 #### LAB [address] [address] Cameron Vanegas M.D. [id number] PT/INRon 09-06-2024 INR Coag (PPP) [Relative time] 1.1 {INR} Normal 0.8-1.1 [facility] Comment on above: Order Comment: Durin g the induction phase of oral anticoagulation, the INR may not reflect the anticoagulation status of the patient. Therapeutic ranges for INR's are: Most clinical situations: INR 2.0-3.0 Mechanical Prosthetic Valve: INR 2.5-3.5 Critical: INR >5.0 Performed By: #### 4 6391 #### LAB [address] [id number] Cameron Vanegas M.D. [id number] PT Coag (PPP) [Time] 14.4 s High 11.8-14.3 [facility] Comment on above: Order Comment: Durin g the induction phase of oral anticoagulation, the INR may not reflect the anticoagulation status of the patient. Therapeutic ranges for INR's are: Most clinical situations: INR 2.0-3.0 Mechanical Prosthetic Valve: INR 2.5-3.5 Critical: INR >5.0 Performed By: #### 4 6391 #### LAB [address] [place], [place] [address] Cameron Vanegas M.D. [id number] SEDIMENTATION RATEon 025 SEDIMENTATION RATE, ERYTHROCYTE 19 mm/hr Normal 0-20 [facility] Comment on above: Performed By: #### 4 6477 #### LAB [address] [id number] Cameron Vanegas M.D. [id number] TROPONIN X 2 (NOW AND REPEAT IN 2 HOURS)on 09-06-2024 TROPONIN T DELTA CHANGE INTERPRETATION Probable non-acute cardiac injury or late presentation of acute injury. Normal [facility] Comment on above: Performed By: #### 4 5033 #### LAB [address] [address] Cameron Vanegas M.D. [id number] TROPONIN T DELTA DIFFERENCE -2 ng/L Normal < = -/+ 7 change [facility] Comment on above: Performed By: #### 4 5033 #### LAB [address] [address] Cameron Vanegas M.D. [id number] TROPONIN T NG/L 21 ng/L Normal <=22 [facility] Comment on above: Performed By: #### 4 5033 #### LAB [address] [address] Cameron Vanegas M.D. [id number] BASELINE TROPONIN T NG/L 23 ng/L Off scale high <=22 [facility] Comment on above: Performed By: #### 4 6608 #### LAB [address] [address] Cameron Vanegas M.D. [id number] TROPONIN T INTERPRETATION Possible acute cardiac injury. Normal [facility] Comment on above: Performed By: #### 4 6608 #### LAB [address] [address] Cameron Vanegas M.D. [id number] TSH WITH REFLEX FREE T4on TSH Qn 1.13 m[IU]/L Normal 0.27-4.20 [facility] Comment on above: Performed By: #### 4 6612 #### LAB [address] [address] Cameron Vanegas M.D. [id number] TYPE AND SCREENon 09-06-2024 TYPE AND SCREEN ABORH: AB Negative AB SCREEN: Negative EXPIRATION DATE: 09/09/2024 23:59 EST Normal [facility] WOUND AEROBIC AND ANAEROBIC CULTUREon 09-06-2024 WOUND AEROBIC AND ANAEROBIC CULTURE CULTURE No Anaerobic Growth after 5 days STREPTOCOCCUS PYOGENES Light Growth Streptococcus pyogenes (Group A) GRAM STAIN RESULT No Organisms Seen Few WBC Many RBC Organism: STREPTOCOCCUS PYOGENES Antibiotic Interpretation LUIS Status Ampicillin Susc Islt S <=0.25 F Penicillin G Susc Islt S <=0.06 F Cefazolin Susc Islt S F Ceftriaxone Susc Islt S <=0.12 F Clindamycin Susc Islt R F Erythromycin Susc Islt R 2 F Vancomycin Susc Islt S 0.5 F Abnormal [facility] Comment on above: Performed By: #### 4 6124 #### [facility] [address] [address] Berhane Mcclure M.D. [id number] XR CHEST PA/APon 09-06-2024 XR CHEST PA/AP EXAMINATION: XR CHEST PA/AP HISTORY: ORDERING SYSTEM PROVIDED HISTORY: cough, TECHNOLOGIST PROVIDED HISTORY: Illness/Other Reason for exam: Cough Cancer History: u Surgery, RadiationHistory: u Encounter Type: Initial Additional signs and symptoms: . ORDERING SYSTEM PROVIDED DIAGNOSIS CODES: COMPARISON: Chest x-ray from 04/29/2024. FINDINGS: One-view chest x-ray. Midline sternotomy. Normal heart size. Mediastinum is not widened. Valvuloplasty. No pneumonia, pleural effusion or pneumothorax identified. Old rib fracture deformities present on the left. IMPRESSION: No acute cardiopulmonary process. Workstation ID: [id number] Dictated by: BENIGNO MALDONADO on WedSep 06, 2024 2:19:22 PM EDT Transcribed by: BENIGNO MALDONADO on WedSep 06, 2024 2:19:22 PM EDT Finalized by: BENIGNO MALDONADO on WedSep 06, 2024 2:19:22 PM EDT Normal [facility] Comment on above: Order Comment: Injur y/Trauma or Illness?:Illness/OtherHow long have you had these symptoms (acute/chronic)?:AcuteReason for exam?:CoughHistory of cancer?:uSurgeries, chemotherapy, or radiation?:uType of Exam?:InitialAdditional signs and symptoms?:. XR FOR MRI CLEARANCEon 09-06 XR FOR MRI CLEARANCE EXAMINATION: XR FOR MRI CLEARANCE HISTORY: MRI CLEARANCE METAL IN EYES OVER 40 YRS AGO COMPARISON: None. TECHNIQUE: 1 orbit view is submitted FINDINGS: No metallic foreign body is identified in either orbit. Orbital bony structures are grossly unremarkable. IMPRESSION: No metallic foreign body is identified in either orbit. Workstation ID: [id number] Dictated by: LAURENCE CANO on WedSep 07, 2024 3:35:31 AM EDT Transcribed by: LAURENCE CANO on WedSep 07, 2024 3:35:31 AM EDT Finalized by: LAURENCE CANO on WedSep 07, 2024 3:35:31 AM EDT [facility] Comment on above: Order Comment: Injur y/Trauma or Illness?:Illness/Other How long have you had these symptoms (acute/chronic)?:Acute Reason for exam?:MRI CLEARANCE METAL IN EYES OVER 40 YRS AGO History of cancer?:u Surgeries, chemotherapy, or radiation?:u Type of Exam?:Initial Additional signs and symptoms?:MRI CLEARANCE METAL IN EYES OVER 40 YRS AGO XR HAND RIGHT 3+ VIEWS (PRIYA MANOJ)on 09-06-2024 XR HAND RIGHT 3+ VIEWS (STANDARD) EXAMINATION: XR HAND RIGHT 3+ VIEWS (STANDARD) HISTORY: ORDERING SYSTEM PROVIDED HISTORY: cellulitis, TECHNOLOGIST PROVIDED HISTORY: Injury/Trauma Reason for exam: cellulitis Cancer History: u Surgery, RadiationHistory: u Encounter Type: Initial Mechanism of injury: pt states he burned himself 5 days ago ORDERING SYSTEM PROVIDED DIAGNOSIS CODES: COMPARISON: Plain radiographs from 09/05/2024. FINDINGS: Three views of the right hand. Areas of osteoarthritis have not changed considerably since 09/05/2024. No acute fracture in the interval. No soft tissue gas. No metallic or radiopaque foreign bodies. IMPRESSION: No interval change. Workstation ID: [id number] Dictated by: BENIGNO MALDONADO on WedSep 06, 2024 4:49:51 PM EDT Transcribed by: BENIGNO MALDONADO on WedSep 06, 2024 4:49:51 PM EDT Finalized by: BENIGNO MALDONADO on WedSep 06, 2024 4:49:51 PM EDT [facility] Comment on above: Order Comment: Injur y/Trauma or Illness?:Injury/TraumaHow long have you had these symptoms (acute/chronic)?:AcuteReason for exam?:cellulitisHistory of cancer?:uSurgeries, chemotherapy, or radiation?:uType of Exam?:InitialMechanism of injury?:pt states he burned himself 5 days ago XR MR Clearon 09-06-2024 Radiology Study observation (narrative) [facility] ED Prov Noteon 09-05-2024 ED Prov Note ED PROVIDER NOTE [facility] EMERGENCY DEPARTMENT NAME: Maryse Mak AGE: 69 y.o. : 1955 VISIT DATE: 09/05/2024 CSN: [id number] PCP: Rayo Jaimes MD Chief Complaint Patient presents with Hand Pain Chief complaint: Pain right hand. History of chief complaint: This 69-year-old male presents to ER complaining of pain in the right hand from the palmar aspect of the MCP joint into the wrist. Patient states he burned his right hand on a car exhaust a few days ago and developed a burn on the thenar and hypothenar areas. He denied any significant pain until yesterday evening. He denies any other injury/blunt trauma. Past Medical History: Diagnosis Date Alcohol abuse 06/19/2019 Arthritis Chronic back pain Chronic obstructive pulmonary disease (HCC) 02/07/2024 Clotting disorder DVT Cocaine abuse (HCC) 10/28/2017 Coronary artery disease moderate stenosis of LAD and mild plaque in other vessels Homeless 06/19/2019 Hyperlipidemia Hypertension Tobacco dependence 04/29/2020 Past Surgical History: Procedure Laterality Date BACK SURGERY BRING BACK OPEN HEART N/A 08/19/2022 Procedure: STERNAL WOUND EXPLORATION; Surgeon: Wood Eng MD; Location: Main OR; Service: Cardiothoracic CABG W/ RADIAL ARTERY HARVEST N/A 11/20/2021 Procedure: CORONARY ARTERY BYPASS GRAFT X2 AND LEFT AND RIGHT INTERNAL MAMMARY ARTERY GRAFTS; Surgeon: Wood Eng MD; Location: Main OR; Service: Cardiothoracic CARDIAC CATHETERIZATION N/A 11/07/2021 Procedure: Coronary Angiogram; Surgeon: Minoo Grimm MD; Location: [facility]; Service: Cardiovascular CV IR INTERVENTIONAL RADIOLOGY N/A 09/01/2022 Procedure: VR Aspiration Sternal seroma; Surgeon: Florencio Chambers MD; Location: IR LAB; Service: Interventional Radiology HC LEFT HEART CATH N/A 11/07/2021 Procedure: Left Heart Cath; Surgeon: Minoo Grimm MD; Location: [employer] [employer]; Service: Cardiovascular left arm leg sx right and left blood clots Bilateral 2009 in [facility] SHOULDER SURGERY STERNAL WIRING N/A 08/06/2022 Procedure: STERNAL INTERNAL FIXATION WITH PLATING AND SCREWS; Surgeon: Wood Eng MD; Location: Main OR; Service: Cardiothoracic Family History Problem Relation Age of Onset Heart disease Father Heart attack Father Heart attack Maternal Uncle Heart disease Maternal Uncle Social History [1] Previous Medications Medication Sig aspirin 81 MG EC tablet Take 1 (one) tablet (81 mg total) by mouth daily . gabapentin (NEURONTIN) 800 MG tablet Take 1 (one) tablet (800 mg total) by mouth 3 (three) times a day . HYDROcodone-acetaminop hen (NORCO) 7.5-325 mg per tablet Take 1 (one) tablet by mouth every 6 (six) hours as needed for pain . NIFEdipine (ADALAT CC) 30 MG 24 hr tablet Take 1 (one) tablet (30 mg total) by mouth daily . Allergies[2] Review of Systems Patient Vitals for the past 24 hrs: BP Temp Temp src Pulse Resp SpO2 Height Weight 09/05/24 0718 (!) 145/95 98.3 degrees F (36.8 degrees C) Oral 95 18 97 % 6' 93 kg (205 lb) Physical Exam Vitals and nursing note reviewed. Constitutional: General: He is not in acute distress. Appearance: Normal appearance. He is not ill-appearing, toxic-appearing or diaphoretic. HENT: Head: Normocephalic and atraumatic. Cardiovascular: Rate and Rhythm: Normal rate and regular rhythm. Musculoskeletal: General: Normal range of motion. Cervical back: Normal range of motion and neck supple. Skin: General: Skin is warm and dry. Capillary Refill: Capillary refill takes less than 2 seconds. Findings: Erythema present. Comments: There is some mild erythema with first-degree burn over the right thenar area and small crusted burn measuring approxi-1 cm over the hyperthenar area. There is minimal edema of the burn. There is tenderness over the burn area extending into the wrist. Neurological: General: No focal deficit present. Mental Status: He is alert and oriented to person, place, and time. Psychiatric: Mood and Affect: Mood normal. Behavior: Behavior normal. Laboratory & Radiographic Imaging (if done): Results for orders placed or performed during the hospital encounter of 09/05/24 POC CBC and Differential Result Value Ref Range WBC 11.98 (H) 4.50 - 11.00 K/mcL RBC 4.88 4.50 - 5.90 M/mcL Hemoglobin 14.9 13.5 - 17.5 g/dL Hematocrit 46.0 41.0 - 53.0 % MCV 94.3 80.0 - 100.0 fL MCH 30.5 26.0 - 34.0 pg MCHC 32.4 31.0 - 37.0 g/dL RDW - CV 13.9 11.6 - 14.8 % Platelets 226 150 - 400 K/mcL MPV 9.7 9.4 - 12.4 fL Neutrophils 79.7 % Lymphocytes 10.4 % Monocytes 7.7 % Eosinophils 1.7 % Basophils 0.2 % IG Percent 0.30 % Neutrophils Abs 9.56 (H) 1.70 - 7.00 K/mcL Lymphocytes Abs 1.24 0.90 - 4.00 K/mcL Monocytes Abs 0.92 (H) 0.30 - 0.90 K/mcL Eosinophils Abs 0.20 0.00 - 0.50 K/mcL Basophils Abs 0.02 0.00 - 0.30 K/mcL IG Absolute 0.04 0.00 - (more content not included)... Normal [facility] POC CBC AND DIFFERENTIALon 0 09-05-2024 BASOPHILS ABSOLUTE COUNT 0.02 K/mcL Normal 0.00-0.30 [facility] Comment on above: Performed By: #### L [id number] #### ONED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 embolism (PE) disease, as well as an aid in the diagnosis of deep vein thrombosis (DVT). [facility] HIGH SENSITIVITY TROPONIN, S ERIAL BASELINEon 08-11-2024 TROPONIN HS SERIAL BASELINE 3 ng/L Normal <=35 [facility] Comment on above: Result Comment: In i ndividuals presenting with symptoms > 2h, a baseline troponin <= 5 ng/L suggests acute cardiac injury is unlikely and further serial testing is generally not indicated. Performed By: #### L [id number], [id number] #### Corduroy Brusher Operator: XOCHILT MONTANEZ ([id number]) [facility] ([facility]) [address] [place] [address] HIGH SENSITIVITY TROPONIN, S ERIAL, SECOND TESTon 08-11-2024 2H TROPONIN HS (SERIAL 2ND TROPONIN) 4 ng/L Normal <=35 [facility] Comment on above: Result Comment: Risi ng or falling troponin delta below 2 ng/L as compared to baseline value suggests that acute cardiac injury is unlikely. Performed By: #### L [id number] #### Corduroy Brusher Operator: XOCHILT MONTANEZ ([id number]) [facility] ([facility]) [address] [place] [address] Laboratory - Coagulationon 0 08-11-2024 Fibrin D-dimer FEU (PPP) [Mass/Vol] 0.46 mg/L NINF - 0.50 mg/L [facility] [employer] No Panel InformationOrdered By: Kenyatta Willson on 08-11-2024 P [place] 94 degrees [facility] [employer] Work Phone: CT Interval 143 ms [employer] Work Phone: QRS [place] 62 degrees [employer] Work Phone: QRSD Interval 87 ms [employer] Work Phone: QT Interval 330 ms [employer] Work Phone: QTC Interval 413 ms [employer] Work Phone: T Wave [place] 0 degrees [employer] Work Phone: [employer] Work Phone: No Panel Informationon 08-11 Sinus rhythm Probable left atrial enlargement Nonspecific T abnormalities, lateral leads No prior EKG available Electronically Signed On 08-11-2024 14:53:16 EDT by Kenyatta Willson CV Kenyatta Renee MD - 08/11/2024 IMPRESSION: Sinus rhythm Probable left atrial enlargement Nonspecific T abnormalities, lateral leads No prior EKG available Electronically Signed On 08-11-2024 14:53:16 EDT by Kenyatta Willson [facility] 2h Troponin HS (Serial 2nd Troponin) 4 ng/L NINF - 35 ng/L [facility] Comment on above: Rising or falling tr oponin delta below 2 ng/L as compared to baseline value suggests that acute cardiac injury is unlikely. Interpretation and review of laboratory results Normal [facility] Interpretation and review of laboratory results Normal [facility] Troponin HS Serial Baseline 3 ng/L NINF - 35 ng/L [facility] Comment on above: In individuals prese nting with symptoms > 2h, a baseline troponin <= 5 ng/L suggests acute cardiac injury is unlikely and further serial testing is generally not indicated. [facility] Vital signsOrdered By: Kenyatta Willson on 08-11-2024 Heart rate 94 /min bpm [facility] Work Phone: XR Chest Single viewon 08-11 No radiographic evidence of acute cardiopulmonary process. Report Dictated on Electronically Signed By: Anastasia Solis MD Electronically Signed Date/Time: 08/11/2024 12:16 PM EDT [employer] Patient Name: MARYSE MAK : 1955 Exam Date/Time: 08/11/2024 12:11 Procedure: XR CHEST 1 VIEW Ordering Provider: CAMPA BRIANNA Reason For Exam: CHEST PAIN EXAMINATION: Portable chest INDICATION: CHEST PAIN FINDINGS: There is no focal consolidation, sizable pleural effusion or pneumothorax. The cardiac silhouette is within normal limits. Tortuous atherosclerotic aorta is present with median sternotomy changes. Small to moderate osteophytes of the spine are present at multiple levels. Remote left-sided rib fractures. [facility] Anastasia Solis MD - 08/11/2024 Patient Name: MARYSE MAK : 1955 Exam Date/Time: 08/11/2024 12:11 Procedure: XR CHEST 1 VIEW Ordering Provider: CAMPA BRIANNA Reason For Exam: CHEST PAIN EXAMINATION: Portable chest INDICATION: CHEST PAIN FINDINGS: There is no focal consolidation, sizable pleural effusion or pneumothorax. The cardiac silhouette is within normal limits. Tortuous atherosclerotic aorta is present with median sternotomy changes. Small to moderate osteophytes of the spine are present at multiple levels. Remote left-sided rib fractures. IMPRESSION: No radiographic evidence of acute cardiopulmonary process. Report Dictated on Electronically Signed By: Anastasia Solis MD Electronically Signed Date/Time: 08/11/2024 12:16 PM EDT [facility] Radiology Study observation (narrative) [facility] [employer] XR Chest Single viewOrdered By: Anastasia Solis on 08-11-2024 [employer] Work Phone: ED Prov Noteon 07-14-2024 ED Prov Note ED PROVIDER NOTE [facility] EMERGENCY DEPARTMENT NAME: Maryse Mak AGE: 69 y.o. : 1955 VISIT DATE: 07/14/2024 CSN: [id number] PCP: Rayo Jaimes MD Chief Complaint Patient presents with Back Pain 69-year-old male patient presents for lower back pain. Patient states twisted his back, dull pain lower back, worse with certain position relieved with rest, no saddle anesthesia, no urinary retention or fecal incontinence. Past Medical History: Diagnosis Date Alcohol abuse 06/19/2019 Arthritis Chronic back pain Chronic obstructive pulmonary disease (HCC) 02/07/2024 Clotting disorder DVT Cocaine abuse ([facility]) 10/28/2017 Coronary artery disease moderate stenosis of LAD and mild plaque in other vessels Homeless 06/19/2019 Hyperlipidemia Hypertension Tobacco dependence 04/29/2020 Past Surgical History: Procedure Laterality Date BACK SURGERY BRING BACK OPEN HEART N/A 08/19/2022 Procedure: STERNAL WOUND EXPLORATION; Surgeon: Wood Eng MD; Location: Main OR; Service: Cardiothoracic CABG W/ RADIAL ARTERY HARVEST N/A 11/20/2021 Procedure: CORONARY ARTERY BYPASS GRAFT X2 AND LEFT AND RIGHT INTERNAL MAMMARY ARTERY GRAFTS; Surgeon: Wood Eng MD; Location: Main OR; Service: Cardiothoracic CARDIAC CATHETERIZATION N/A 11/07/2021 Procedure: Coronary Angiogram; Surgeon: Minoo Grimm MD; Location: [employer]; Service: Cardiovascular CV IR INTERVENTIONAL RADIOLOGY N/A 09/01/2022 Procedure: VR Aspiration Sternal seroma; Surgeon: Florencio Chambers MD; Location: IR LAB; Service: Interventional Radiology HC LEFT HEART CATH N/A 11/07/2021 Procedure: Left Heart Cath; Surgeon: Minoo Grimm MD; Location: [employer]; Service: Cardiovascular left arm leg sx right and left blood clots Bilateral 2009 in [facility] SHOULDER SURGERY STERNAL WIRING N/A 08/06/2022 Procedure: STERNAL INTERNAL FIXATION WITH PLATING AND SCREWS; Surgeon: Wood Eng MD; Location: Main OR; Service: Cardiothoracic Family History Problem Relation Age of Onset Heart disease Father Heart attack Father Heart attack Maternal Uncle Heart disease Maternal Uncle Social History Socioeconomic History Marital status: Single Tobacco Use Smoking status: Every Day Current packs/day: 0.50 Average packs/day: 0.5 packs/day for 45.0 years (22.5 ttl pk-yrs) Types: Cigarettes Passive exposure: Past Smokeless tobacco: Never Vaping Use Vaping status: Never Used Substance and Sexual Activity Alcohol use: Not Currently Drug use: Not Currently Types: Cocaine Sexual activity: Not Currently control/protection: None Social Drivers of Health Transportation Needs: No Transportation Needs (10/02/2022) OASIS A1250: Transportation Lack of Transportation (Medical): No Lack of Transportation (Non-Medical): No Patient Unable or Declines to Respond: No Previous Medications Medication Sig aspirin 81 MG EC tablet Take 1 (one) tablet (81 mg total) by mouth daily . gabapentin (NEURONTIN) 800 MG tablet Take 1 (one) tablet (800 mg total) by mouth 3 (three) times a day . HYDROcodone-acetaminop hen (NORCO) 7.5-325 mg per tablet Take 1 (one) tablet by mouth every 6 (six) hours as needed for pain . NIFEdipine (ADALAT CC) 30 MG 24 hr tablet Take 1 (one) tablet (30 mg total) by mouth daily . [DISCONTINUED] atorvastatin (LIPITOR) 40 MG tablet Take 1 (one) tablet (40 mg total) by mouth daily . Allergies Allergen Reactions Felix Inhibitors Swelling Atorvastatin Other (See Comments) ACHE ALL OVER. Review of Systems All other systems reviewed and are negative. Patient Vitals for the past 24 hrs: BP Temp Temp src Pulse Resp SpO2 Height Weight 07/14/24 0315 (!) 148/85 97.3 degrees F (36.3 degrees C) Temporal 65 18 99 % 6' 90.7 kg (200 lb) Physical Exam Vitals reviewed. Constitutional: Appearance: Normal appearance. HENT: Head: Normocephalic and atraumatic. Right Ear: Tympanic membrane and external ear normal. Left Ear: Tympanic membrane and external ear normal. Nose: Nose normal. Mouth/Throat: Mouth: Mucous membranes are moist. Pharynx: Oropharynx is clear. Eyes: Extraocular Movements: Extraocular movements intact. Pupils: Pupils are equal, round, and reactive to light. Cardiovascular: Rate and Rhythm: Normal rate and regular rhythm. Pulses: Normal pulses. Heart sounds: Normal heart sounds. Musculoskeletal: Cervical back: Normal range of motion and neck supple. Comments: Paravertebral lumbar tenderness Pulmonary: Effort: Pulmonary effort is normal. Breath sounds: Normal breath sounds. Abdominal: General: Abdomen is flat. Palpations: Abdomen is soft. Skin: General: Skin is dry. Capillary Refill: Capillary refill takes less than 2 seconds. Neurological: General: No focal deficit present. Mental Status: He is alert and oriented to person, place, and time. (more content not included)... Normal [facility] XR ASPIRATION/INJECTION LARG E JOINT RIGHTon 07-12-2024 XR ASPIRATION/INJECTION LARGE JOINT RIGHT EXAMINATION: XR ASPIRATION/INJECTION LARGE JOINT RIGHT DATE: 07/12/2024 HISTORY PROVIDED: right hip injection painful osteoarthritis. DESCRIPTION OF PROCEDURE: The procedure was discussed with the patient and consent obtained. Final verification with a pause and confirm was performed in the procedure suite with all relevant team members present and participating. A suitable skin entry site directed to the anterolateral femoral head/neck junction was selected under fluoroscopic guidance and marked. A sterile field in the region was created with ChloraPrep and after sterile draping of the patient, following local anesthesia with 4 mL 1% lidocaine local, a 22 gauge spinal needle was advanced into the joint. Injection of approximately 3 mL [id number] was undertaken documenting intra-articular needle placement followed by injection of 80 mg Kenalog and 3 mL of 0.25% Marcaine. Intra-articular needle placement is documented with fluoroscopic imaging. The needle was then removed intact from the patient. The procedure was well tolerated. Subjectively, the patient reports diminution in right hip pain following ambulation after the procedure. ESTIMATED BLOOD LOSS: Minimal. COMPLICATIONS: None immediate. FLUOROSCOPY TIME: Fluoro time in minutes: 0.3 Flouroscopy Dose: Ka,r mGy: Fluoro dose in Ka,r mGy: 7.46 IMPRESSION: Therapeutic right hip injection was performed under fluoroscopy as described above. Workstation ID: [id number] Dictated by: MEKA FELIX on WedJul 12, 2024 3:59:44 PM EST Transcribed by: MEKA FELIX on WedJul 12, 2024 3:59:44 PM EST Finalized by: MEKA FELIX on WedJul 12, 2024 3:59:44 PM EST Normal [facility] Comment on above: Order Comment: Injur y/Trauma or Illness?:Illness/Other How long have you had these symptoms (acute/chronic)?:Chronic Reason for exam?:right hip injection, Primary osteoarthritis of right hip Type of Exam?:Initial Additional signs and symptoms?:/ Fluoro time in minutes:0.3 Fluoro dose in mGy?:7.46 ED Prov Noteon 06-27-2024 ED Prov Note ED PROVIDER NOTE [facility] NAME: Maryse Mak AGE: 69 y.o. : 1955 VISIT DATE: 06/27/2024 CSN: [id number] PCP: Rayo Jaimes MD Chief Complaint Patient presents with Back Pain 69-year-old male with history of multiple back surgeries with last surgery more than 20 years ago presents here today complaining of back pain. Patient describes he slipped on an ice service yesterday and flared up his back pain. He localizes pain to his right lumbar back. He denies any acute numbness, tingling, weakness in his extremities. (He has had history of some numbness in his legs from his prior surgeries). He denies problems controlling his bowel or bladder. He denies any other injuries associate with the fall. He denies any head or neck pain. He denies chest pain or shortness of breath. Past Medical History: Diagnosis Date Alcohol abuse 06/19/2019 Arthritis Chronic back pain Chronic obstructive pulmonary disease (HCC) 02/07/2024 Clotting disorder DVT Cocaine abuse (HCC) 10/28/2017 Coronary artery disease moderate stenosis of LAD and mild plaque in other vessels Homeless 06/19/2019 Hyperlipidemia Hypertension Tobacco dependence 04/29/2020 Past Surgical History: Procedure Laterality Date BACK SURGERY BRING BACK OPEN HEART N/A 08/19/2022 Procedure: STERNAL WOUND EXPLORATION; Surgeon: Wood Eng MD; Location: Main OR; Service: Cardiothoracic CABG W/ RADIAL ARTERY HARVEST N/A 11/20/2021 Procedure: CORONARY ARTERY BYPASS GRAFT X2 AND LEFT AND RIGHT INTERNAL MAMMARY ARTERY GRAFTS; Surgeon: Wood Eng MD; Location: Main OR; Service: Cardiothoracic CARDIAC CATHETERIZATION N/A 11/07/2021 Procedure: Coronary Angiogram; Surgeon: Minoo Grimm MD; Location: [employer]; Service: Cardiovascular CV IR INTERVENTIONAL RADIOLOGY N/A 09/01/2022 Procedure: VR Aspiration Sternal seroma; Surgeon: Florencio Chambers MD; Location: IR LAB; Service: Interventional Radiology HC LEFT HEART CATH N/A 11/07/2021 Procedure: Left Heart Cath; Surgeon: Minoo Grimm MD; Location: [employer]; Service: Cardiovascular left arm leg sx right and left blood clots Bilateral 2009 in [facility] SHOULDER SURGERY STERNAL WIRING N/A 08/06/2022 Procedure: STERNAL INTERNAL FIXATION WITH PLATING AND SCREWS; Surgeon: Wood Eng MD; Location: Main OR; Service: Cardiothoracic Family History Problem Relation Age of Onset Heart disease Father Heart attack Father Heart attack Maternal Uncle Heart disease Maternal Uncle Social History Socioeconomic History Marital status: Single Tobacco Use Smoking status: Every Day Current packs/day: 0.50 Average packs/day: 0.5 packs/day for 45.0 years (22.5 ttl pk-yrs) Types: Cigarettes Passive exposure: Past Smokeless tobacco: Never Vaping Use Vaping status: Never Used Substance and Sexual Activity Alcohol use: Not Currently Drug use: Not Currently Types: Cocaine Sexual activity: Not Currently control/protection: None Social Drivers of Health Transportation Needs: No Transportation Needs (10/02/2022) OASIS A1250: Transportation Lack of Transportation (Medical): No Lack of Transportation (Non-Medical): No Patient Unable or Declines to Respond: No Previous Medications Medication Sig aspirin 81 MG EC tablet Take 1 (one) tablet (81 mg total) by mouth daily . atorvastatin (LIPITOR) 40 MG tablet Take 1 (one) tablet (40 mg total) by mouth daily . gabapentin (NEURONTIN) 800 MG tablet Take 1 (one) tablet (800 mg total) by mouth 3 (three) times a day . HYDROcodone-acetaminop hen (NORCO) 7.5-325 mg per tablet Take 1 (one) tablet by mouth every 6 (six) hours as needed for pain . NIFEdipine (ADALAT CC) 30 MG 24 hr tablet Take 1 (one) tablet (30 mg total) by mouth daily . Allergies Allergen Reactions Felix Inhibitors Swelling Atorvastatin Other (See Comments) ACHE ALL OVER. Review of Systems Constitutional: Negative for fatigue and fever. Musculoskeletal: Positive for back pain. Negative for neck pain. Skin: Negative for wound. Neurological: Negative for dizziness and headaches. Patient Vitals for the past 24 hrs: BP Temp Temp src Pulse Resp SpO2 Height Weight 06/27/24 2144 (!) 152/102 98.4 degrees F (36.9 degrees C) Temporal 94 18 97 % 6' 95.3 kg (210 lb) Physical Exam Vitals and nursing note reviewed. Constitutional: Appearance: He is well-developed. HENT: Head: Normocephalic and atraumatic. Musculoskeletal: General: Normal range of motion. Cervical back: Normal. Thoracic back: Normal. Lumbar back: Tenderness (Right lumbar tenderness.) present. Comments: Well-healed midline surgical scar noted in his lumbar spine. There is no overlying signs of trauma. No swelling, abrasions, or ecchymosis. Pulmonary: Effort: Pulmonary effort is normal. Skin: General: Skin is warm and dry. Neurolog (more content not included)... [facility] [facility] [place] [facility] Comment on above: Order Comment: BETI Andrea OWEST [id number] Result Comment: [id number] 6+OXYCODONE-BUND (ng/mL) DRUG RESULT SCREEN CUTOFF ____ Amphetamines,Urine Negative ng/mL 1000 Amphetamine test includes Amphetamine and Methamphetamine. Barbiturates Negative ng/mL 200 Benzodiazepines POSITIVE ng/mL 100 Please Note; Confirmation performed by Mass Spectrometry Nordiazepam Negative 100 Oxazepam Negative 100 Flurazepam Negative 100 Lorazepam Negative 100 Alprazolam Negative 100 Clonazepam Negative 100 Temazepam Negative 100 Triazolam Negative 100 Midazolam Positive Midazolam Conf,MS,UR 1118 ng/mL 100 Cannabinoid Negative ng/mL 20 Cocaine (Metab) Negative ng/mL 300 Opiates Negative ng/mL 300 Opiates test includes Codeine, Morphine, Hydromorphone, Hydrocodone. Oxycodone/Oxymorphone,Urine Negative ng/mL 300 Test includes Oxydodone and Oxymorphone. TESTING PERFORMED AT [facility]. ORIGINAL REPORT ON FILE IN LAB CONTAINS ADDITIONAL TEST SITE INFORMATION. Performed By: #### L 505.5000, L801.1541 ####[facility] [address] [facility] [address] Urine Drug Screen (VISTA)on 05-02-2024 AMPHETAMINES Negative Normal <1000 ng/mL [facility] Comment on above: Order Comment: UNKNO WN Performed By: #### L 505.4999, [id number] ####[facility] [address] [place], [address] BARBITIURATES Negative Normal < 200 ng/mL [facility] Comment on above: Order Comment: UNKNO WN Performed By: #### L 505.4999, [id number] ####[facility] [address] [place] [address] BENZODIAZIPINE Positive Abnormal < 200 ng/mL [facility] Comment on above: Order Comment: UNKNO WN Performed By: #### L 505.4999, [id number] ####[facility] [address] [place], [place], [phone] COCAINE Negative Normal < 300 ng/mL [facility] Comment on above: Order Comment: UNKNO WN Performed By: #### L 505.4999, [id number] ####[facility] [address] [place] [address] ECSTACY Negative Normal < 500 ng/mL [facility] Comment on above: Order Comment: UNKNO WN Performed By: #### L 505.4999, [id number] ####[facility] [address] [place] [address] METHADONE Negative Normal < 300 ng/mL [facility] Comment on above: Order Comment: UNKNO WN Performed By: #### L 505.4999, [id number] ####[facility] [address] [place], [address] OPIATES Positive Abnormal < 300 ng/mL [facility] Comment on above: Order Comment: UNKNO WN Performed By: #### L 505.5000, [id number] ####[facility] [address] [place], [address] PCP Negative Normal < 25 ng/mL [facility] Comment on above: Order Comment: UNKNO WN Performed By: #### L 505.5000, [id number] ####[facility] [address] [place], [address] THC Negative Normal < 50 ng/mL [facility] Comment on above: Order Comment: UNKNO WN Performed By: #### L 505.5000, [id number] ####[facility] [address] [place], [address] VISTA UDS PH 5 Normal [facility] Comment on above: Order Comment: UNKNO WN Performed By: #### L 505.5000, [id number] ####[facility] [address] [place], [address] ED Prov Noteon 04-29-2024 ED Prov Note HPI: 04/29/2024, Time: @SIMÓN@ Maryse Mcgraw Parisa is a 69 y.o. male presenting to the ED for acute on chronic low back pain but also complains of pain going down the left anterior thigh which is not usual for him, beginning last few days ago. The complaint has been constant, moderate in severity, and worsened by nothing. Also complains of diffuse peristernal chest pain described as an ache and soreness but not related to exertion and no radiation of the pain and no diaphoresis or dizziness ROS: Pertinent positives and negatives are stated within HPI, all other systems reviewed and are negative. - PAST HISTORY - Past Medical History: @[facility]@ Past Surgical History: has a past surgical history that includes Back surgery; leg sx right and left blood clots (Bilateral, 2010); left arm ; Shoulder surgery; hc left heart cath (N/A, 11/07/2021); Cardiac Catheterization (N/A, 11/07/2021); Cabg W/ Radial Artery [place] (N/A, 11/20/2021); Sternal Wiring (N/A, 08/06/2022); BRING BACK OPEN HEART (N/A, 08/19/2022); and Interventional Radiology (N/A, 09/01/2022). Social History: reports that he has been smoking cigarettes. He has a 22.5 pack-year smoking history. He has been exposed to tobacco smoke. He has never used smokeless tobacco. He reports that he does not currently use alcohol. He reports that he does not currently use drugs after having used the following drugs: Cocaine. Family History: family history includes Heart attack in his father and maternal uncle; Heart disease in his father and maternal uncle. The patient's home medications have been reviewed. Allergies: Atorvastatin ------ RESULTS ----- All laboratory and radiology results have been personally reviewed by myself LABS: Results for orders placed or performed during the hospital encounter of 04/29/24 POC CBC and Differential Collection Time: 04/29/24 5:06 PM Result Value Ref Range WBC 7.44 4.50 - 11.00 K/mcL RBC 5.03 4.50 - 5.90 M/mcL Hemoglobin 15.6 13.5 - 17.5 g/dL Hematocrit 45.9 41.0 - 53.0 % MCV 91.3 80.0 - 100.0 fL MCH 31.0 26.0 - 34.0 pg MCHC 34.0 31.0 - 37.0 g/dL RDW - CV 13.7 11.6 - 14.8 % Platelets 209 150 - 400 K/mcL MPV 10.3 9.4 - 12.4 fL Neutrophils 64.0 % Lymphocytes 24.6 % Monocytes 7.1 % Eosinophils 3.5 % Basophils 0.1 % IG Percent 0.70 % Neutrophils Abs 4.76 1.70 - 7.00 K/mcL Lymphocytes Abs 1.83 0.90 - 4.00 K/mcL Monocytes Abs 0.53 0.30 - 0.90 K/mcL Eosinophils Abs 0.26 0.00 - 0.50 K/mcL Basophils Abs 0.01 0.00 - 0.30 K/mcL IG Absolute 0.05 0.00 - 0.30 K/mcL POC Basic Metabolic Panel Collection Time: 04/29/24 5:16 PM Result Value Ref Range Glucose 93 65 - 99 mg/dL BUN 19 8 - 25 mg/dL Creatinine 0.90 0.80 - 1.30 mg/dL GFR 94 >=60 mL/min/1.73 m2 Sodium 146 (H) 135 - 145 mmol/L Potassium 4.0 3.5 - 5.1 mmol/L Chloride 109 (H) 98 - 108 mmol/L TCO2 27 21 - 32 mmol/L Ionized Calcium 4.9 4.5 - 5.3 mg/dL POC B-type natriuretic peptide (BNP) Collection Time: 04/29/24 5:35 PM Result Value Ref Range BNP 19.9 <100 pg/mL POC Troponin I Collection Time: 04/29/24 5:39 PM Result Value Ref Range Troponin I <0.05 <0.05 ng/mL POC Troponin I Collection Time: 04/29/24 7:55 PM Result Value Ref Range Troponin I <0.05 <0.05 ng/mL RADIOLOGY: Interpreted by Radiologist. XR Chest 1 View Final Result Nonacute portable chest with slight left basilar atelectasis. Workstation ID: [id number] --- NURSING NOTES AND VITALS REVIEWED ----- The nursing notes within the ED encounter and vital signs as below have been reviewed. BP 132/68 (BP Location: Left arm, Patient Position: Sitting) Pulse 82 Temp 98.4 degrees F (36.9 degrees C) Resp 18 Ht 6' Wt 99.8 kg (220 lb) SpO2 99% BMI 29.84 kg/m Oxygen Saturation Interpretation: Normal -------PHYSICAL EXAM Constitutional/General : Alert and oriented x3, moderate apparent discomfort but no respiratory distress and skin is pink warm and dry Head: NC/AT Eyes: PERRL, EOMI Mouth: Oropharynx clear, handling secretions, no trismus Neck: Supple, full ROM, no meningeal signs Pulmonary: Lungs clear to auscultation bilaterally, no wheezes, rales, or rhonchi. Not in respiratory distress Cardiovascular: Regular rate and rhythm, no murmurs, gallops, or rubs. 2+ distal pulses Abdomen: Soft, non tender, non distended, Extremities: Moves all extremities x 4. Warm and well perfused Skin: warm and dry without rash Neurologic: GCS 15, Psych: Normal Affect Chest wall: Reproducible peristernal chest wall tenderness Low back: Moderate LS paraspinal bilateral tenderness to palpation -------- ED COURSE/MEDICAL DECI (more content not included)... Normal [facility] POC B-TYPE NATRIURETIC PEPTI DE (BNP) - [facility] 04-29-2024 Natriuretic peptide B (Bld) [Mass/Vol] 19.9 pg/mL Normal <100 [facility] POC BASIC METABOLIC PANEL - [facility] 04-29-2024 Chloride [Moles/Vol] 109 mmol/L High 98-108 [facility] Comment on above: Order Comment: [facility] has implemented the eGFR calculation approach that does not have a coefficient for race that conforms to the NKF-ASN Task Force Recommendations. CO2 [Moles/Vol] 27 mmol/L Normal 21-32 [facility] Comment on above: Order Comment: [facility] has implemented the eGFR calculation approach that does not have a coefficient for race that conforms to the NKF-ASN Task Force Recommendations. Creatinine [Mass/Vol] 0.90 mg/dL Normal 0.80-1.30 [facility] Comment on above: Order Comment: [facility] has implemented the eGFR calculation approach that does not have a coefficient for race that conforms to the NKF-ASN Task Force Recommendations. Glucose [Mass/Vol] 93 mg/dL Normal 65-99 [facility] Comment on above: Order Comment: [facility] has implemented the eGFR calculation approach that does not have a coefficient for race that conforms to the NKF-ASN Task Force Recommendations. POC GFR 94 mL/min/1.73 m2 Normal >=60 [facility] Comment on above: Order Comment: [facility] has implemented the eGFR calculation approach that does not have a coefficient for race that conforms to the NKF-ASN Task Force Recommendations. Result Comment: Rosanne mated GFR was calculated using the 2020 CKD-EPI creatinine equation. POC IONIZED CALCIUM 4.9 mg/dL Normal 4.5-5.3 [facility] Comment on above: Order Comment: [facility] has implemented the eGFR calculation approach that does not have a coefficient for race that conforms to the NKF-ASN Task Force Recommendations. Potassium [Moles/Vol] 4.0 mmol/L Normal 3.5-5.1 [facility] Comment on above: Order Comment: [facility] has implemented the eGFR calculation approach that does not have a coefficient for race that conforms to the NKF-ASN Task Force Recommendations. Sodium [Moles/Vol] 146 mmol/L High 135-145 [facility] Comment on above: Order Comment: [facility] has implemented the eGFR calculation approach that does not have a coefficient for race that conforms to the NKF-ASN Task Force Recommendations. Urea nitrogen [Mass/Vol] 19 mg/dL Normal 8-25 [facility] Comment on above: Order Comment: [facility] has implemented the eGFR calculation approach that does not have a coefficient for race that conforms to the NKF-ASN Task Force Recommendations. POC CBC AND DIFFERENTIALon 06-30-2023 BASOPHILS ABSOLUTE COUNT 0.01 K/mcL Normal 0.00-0.30 [facility] Basophils/100 WBC (Bld) 0.1 % Normal [facility] Eosinophils (Bld) [#/Vol] 0.26 10*3/uL Normal 0.00-0.50 [facility] Eosinophils/100 WBC (Bld) 3.5 % Normal [facility] Erythrocyte distribution width (RBC) [Ratio] 13.7 % Normal 11.6-14.8 [facility] Hematocrit (Bld) [Volume fraction] 45.9 % Normal 41.0-53.0 [facility] Hemoglobin (Bld) [Mass/Vol] 15.6 g/dL Normal 13.5-17.5 [facility] IG ABSOLUTE 0.05 K/mcL Normal 0.00-0.30 [facility] IG PERCENT 0.70 % Normal [facility] Comment on above: Result Comment: The IG parameter is the percentage of metamyelocytes, myelocytes and promyelocytes. An immature granulocyte count (IG) of 1% or more suggests the possibility of infection, an IG count of 3% is very likely related to an infection. Lymphocytes (Bld) [#/Vol] 1.83 10*3/uL Normal 0.90-4.00 [facility] Lymphocytes/100 WBC (Bld) 24.6 % Normal [facility] MCH (RBC) [Entitic mass] 31.0 pg Normal 26.0-34.0 [facility] MCV (RBC) [Entitic vol] 91.3 fL Normal 80.0-100.0 [facility] MEAN CORPUSCULAR HEMOGLOBIN CONC 34.0 g/dL Normal 31.0-37.0 [facility] Monocytes (Bld) [#/Vol] 0.53 10*3/uL Normal 0.30-0.90 [facility] Monocytes/100 WBC (Bld) 7.1 % Normal [facility] NEUTROPHILS ABSOLUTE COUNT 4.76 K/mcL Normal 1.70-7.00 [facility] Neutrophils/100 WBC (Bld) 64.0 % Normal [facility] Platelet mean volume (Bld) [Entitic vol] 10.3 fL Normal 9.4-12.4 [facility] Platelets (Bld) [#/Vol] 209 10*3/uL Normal 150-400 [facility] RBC (d) [#/Vol] 5.03 10*6/uL Normal 4.50-5.90 [facility] WBC (d) [#/Vol] 7.44 10*3/uL Normal 4.50-11.00 [facility] POC TROPONIN I Anand 2023 POC TROPONIN I < Normal <0.05 [facility] POC TROPONIN I < Normal <0.05 [facility] XR CHEST PA/APon 04-29-2024 XR CHEST PA/AP EXAMINATION: XR CHEST PA/AP 04/29/2024 5:05 pm HISTORY: ORDERING SYSTEM PROVIDED HISTORY: cp, TECHNOLOGIST PROVIDED HISTORY: Illness/Other Reason for exam: left anterior chest and back pain for several days and worsening, admits to chronic cough and uses inhaler at home Cancer History: u Surgery, RadiationHistory: u Encounter Type: Initial Additional signs and symptoms: na ORDERING SYSTEM PROVIDED DIAGNOSIS CODES: COMPARISON: Two-view chest from 09/28/2022. FINDINGS: Sternal wires and mediastinal clips are noted. Trachea, mediastinum and heart size are unremarkable. No infiltrate or nodule or effusion or pneumothorax is noted. There is slight atelectasis in the left lung base. Diaphragm and bony elements are intact. IMPRESSION: Nonacute portable chest with slight left basilar atelectasis. Workstation ID: [id number] Dictated by: KELSIE CANTRELL on Sat Apr 29, 2024 5:36:22 PM EST Transcribed by: KELSIE CANTRELL on [facility] Apr 29, 2024 5:36:22 PM EST Finalized by: KELSIE CANTRELL on Sat Apr 29, 2024 5:36:[address] [facility] Comment on above: Order Comment: Injur y/Trauma or Illness?:Illness/Other How long have you had these symptoms (acute/chronic)?:Acute Reason for exam?:left anterior chest and back pain for several days and worsening, admits to chronic cough and uses inhaler at home History of cancer?:u Surgeries, chemotherapy, or radiation?:u Type of Exam?:Initial Additional signs and symptoms?:na XR ASPIRATION/INJECTION LARG E JOINT RIGHTon 02-28-2024 XR ASPIRATION/INJECTION LARGE JOINT RIGHT EXAMINATION: XR ASPIRATION/INJECTION LARGE JOINT RIGHT HISTORY: ORDERING SYSTEM PROVIDED HISTORY: Right hip injection. TECHNOLOGIST PROVIDED HISTORY: Illness/Other. Reason for exam: Right hip pain. Encounter Type: Initial. Additional signs and symptoms: Primary O/A of right hip. Fluoro dose in mGy: 10.91. ORDERING SYSTEM PROVIDED DIAGNOSIS CODES: M16.11 Primary osteoarthritis of right hip. COMPARISON: 11/19/2023. TECHNIQUE: FLUORO DOSE: Fluoro dose in Ka,r mGy: 10.91. FINDINGS: The risks and benefits of the procedure were discussed with the patient. Verbal and written consent was obtained. The patient was prepped and draped in the usual sterile fashion. 1% lidocaine was used for local anesthetic. Under fluoroscopic guidance a needle was advanced into the right hip joint. Confirmation of intraarticular placement was obtained with small test injection of contrast material. Following confirmation of intraarticular needle position, 2 mL of 1% lidocaine and 80 mg of Kenalog was injected into the right hip. The patient tolerated procedure well without immediate complications. IMPRESSION: Successful fluoroscopic guided right hip steroid injection. [employer] Workstation ID: [id number] Dictated by: MINH LANDRY on WedFeb 28, 2024 3:40:04 PM EDT Transcribed by: ARCHANA GARCIA on WedFeb 28, 2024 4:05:35 PM EDT Finalized by: MINH LANDRY on WedFeb 28, 2024 10:09:27 PM EDT Normal [facility] Comment on above: Order Comment: Injur y/Trauma or Illness?:Illness/OtherHow long have you had these symptoms (acute/chronic)?:ChronicReason for exam?:Right hip painType of Exam?:InitialAdditional signs and symptoms?:primary O/A of right hipFluoro time in minutes:0.07Fluoro dose in mGy?:10.91 Basic Metabolic Profile (BMP )on 01-20-2024 BUN/CRE 12.5 RATIO Normal 10-20 [facility] Comment on above: Order Comment: Comme nts: NPO at [place] prior to lipid panel Performed By: #### L 500.4100, L100.0100, L500.2500 #### [facility] [address] [place], [address] CA,Total 8.8 mg/dL Normal 8.5-10.1 [facility] Comment on above: Order Comment: Comme nts: NPO at [place] prior to lipid panel Performed By: #### L 500.4100, L100.0100, L500.2500 #### [facility] [address] [place], [address] Chloride [Moles/Vol] 110 mmol/L High 98-107 [facility] Comment on above: Order Comment: Comme nts: NPO at [place] prior to lipid panel Performed By: #### L 500.4100, L100.0100, L500.2500 #### [facility] [address] [place], [address] CO2 [Moles/Vol] 28.0 mmol/L Normal 21.0-32.0 [facility] Comment on above: Order Comment: Comme nts: NPO at [place] prior to lipid panel Performed By: #### L 500.4100, L100.0100, L500.2500 #### [facility] [address] [place], [address] Creatinine [Mass/Vol] 1.04 mg/dL Normal 0.70-1.30 [facility] Comment on above: Order Comment: Comme nts: NPO at [place] prior to lipid panel Result Comment: The validity of the calculated GFR GFRAA in patients over 70 years has not been determined. Clinical correlation is essential. Performed By: #### L 500.4100, L100.0100, L500.2500 #### [facility] [address] [place], [address] ECRCL 85.42 ml/min Normal [facility] Comment on above: Order Comment: Comme nts: NPO at [place] prior to lipid panel Performed By: #### L 500.4100, L100.0100, L500.2500 #### [facility] [address] [place], [address] EST GFR - AA 92 mL/min Normal >60 [facility] Comment on above: Order Comment: Comme nts: NPO at [place] prior to lipid panel Result Comment: Afri can Estonian GFR Calc Performed By: #### L 500.4100, L100.0100, L500.2500 #### [facility] [address] [place], [address] GAP 3 Low 5-15 [facility] Comment on above: Order Comment: Comme nts: NPO at [place] prior to lipid panel Performed By: #### L 500.4100, L100.0100, L500.2500 #### [facility] [address] [place], [address] GFR/1.73 sq M.predicted among non-blacks MDRD (S/P/Bld) [Vol rate/Area] 76 mL/min/{1.73_m2} Normal >60 [facility] Comment on above: Order Comment: Comme nts: NPO at [place] prior to lipid panel Result Comment: Non- GFR Calc Performed By: #### L 500.4100, L100.0100, L500.2500 #### [facility] [address] [place], [address] Glucose [Mass/Vol] 115 mg/dL High 74-106 [facility] Comment on above: Order Comment: Comme nts: NPO at [place] prior to lipid panel Result Comment: Fast ing Glucose result from 100 to 125 mg/dL suggests IMPAIRED HOMEOSTASIS per A.D.A. criteria. Performed By: #### L 500.4100, L100.0100, L500.2500 #### [facility] [address] [place], [address] Potassium [Moles/Vol] 4.2 mmol/L Normal 3.5-5.1 [facility] Comment on above: Order Comment: Comme nts: NPO at [place] prior to lipid panel Performed By: #### L 500.4100, L100.0100, L500.2500 #### [facility] [address] [place], [address] Sodium [Moles/Vol] 141 mmol/L Normal 136-145 [facility] Comment on above: Order Comment: Comme nts: NPO at [place] prior to lipid panel Performed By: #### L 500.4100, L100.0100, L500.2500 #### [facility] [address] [place], [address] Urea nitrogen [Mass/Vol] 13 mg/dL Normal 7-18 [facility] Comment on above: Order Comment: Comme nts: NPO at [place] prior to lipid panel Performed By: #### L 500.4100, L100.0100, L500.2500 #### [facility] [address] [place], [address] CBC W/Diff, Automatedon 09-0 5-202 Absolute Lymph 1.54 X10 3/uL Normal 0.83-4.51 [facility] Comment on above: Performed By: #### L 500.4100, L100.0100, L500.2500 #### [facility] [address] [place], [address] Absolute Neut 3.9 X10 3/uL Normal 2.0-7.7 [facility] Comment on above: Performed By: #### L 500.4100, L100.0100, L500.2500 #### [facility] [address] [place], [address] Basophils/100 WBC (Bld) 0.6 % Normal 0-1 [facility] Comment on above: Performed By: #### L 500.4100, L100.0100, L500.2500 #### [facility] [address] [place], [address] Eosinophils/100 WBC (Bld) 4.1 % Normal 0-5 [facility] Comment on above: Performed By: #### L 500.4100, L100.0100, L500.2500 #### [facility] [address] [place], [address] Erythrocyte distribution width (RBC) [Ratio] 13.1 % Normal 11.6-14.6 [facility] Comment on above: Performed By: #### L 500.4100, L100.0100, L500.2500 #### [facility] [address] [place], [address] Hematocrit (Bld) [Volume fraction] 46.3 % Normal 40-54 [facility] Comment on above: Performed By: #### L 500.4100, L100.0100, L500.2500 #### [facility] [address] [place], [address] Hemoglobin (Bld) [Mass/Vol] 15.2 g/dL Normal 13.0-16.5 [facility] Comment on above: Performed By: #### L 500.4100, L100.0100, L500.2500 #### [facility] [address] [place], [address] IG% 0.800 Normal 0.0-0.9 [facility] Comment on above: Result Comment: IG% - Immature Granulocytes (promyelocytes, myelocytes and metamyelocytes) > 1% indicates that a LEFT SHIFT is Present. Performed By: #### L 500.4100, L100.0100, L500.2500 #### [facility] [address] [place], [address] Lymphocytes/100 WBC (Bld) 24.4 % Normal 19-41 [facility] Comment on above: Performed By: #### L 500.4100, L100.0100, L500.2500 #### [facility] [address] [place], [address] MCH (RBC) [Entitic mass] 30.4 pg Normal 27.0-32.0 [facility] Comment on above: Performed By: #### L 500.4100, L100.0100, L500.2500 #### [facility] [address] [place], [address] MCHC (RBC) [Mass/Vol] 32.8 g/dL Normal 32-36 [facility] Comment on above: Performed By: #### L 500.4100, L100.0100, L500.2500 #### [facility] [address] [place], [address] MCV (RBC) [Entitic vol] 92.6 fL Normal 80-94 [facility] Comment on above: Performed By: #### L 500.4100, L100.0100, L500.2500 #### [facility] [address] [place], [address] Monocytes/100 WBC (Bld) 7.8 % Normal 0-10 [facility] Comment on above: Performed By: #### L 500.4100, L100.0100, L500.2500 #### [facility] [address] [place], [address] Neutrophils/100 WBC (Bld) 62.3 % Normal 47-70 [facility] Comment on above: Performed By: #### L 500.4100, L100.0100, L500.2500 #### [facility] [address] [place], [address] Nucleated RBC (Bld) [#/Vol] 0 10*3/uL Normal 0-5 [facility] Comment on above: Performed By: #### L 500.4100, L100.0100, L500.2500 #### [facility] [address] [place], [address] Platelet mean volume (Bld) [Entitic vol] 10.3 fL Normal 6.2-12.0 [facility] Comment on above: Performed By: #### L 500.4100, L100.0100, L500.2500 #### [facility] [address] [place], [address] Platelets (Bld) [#/Vol] 202 10*3/uL Normal 150-450 [facility] Comment on above: Performed By: #### L 500.4100, L100.0100, L500.2500 #### [facility] [address] [place], [address] RBC (Bld) [#/Vol] 5.00 10*6/uL Normal 4.6-6.2 [facility] Comment on above: Performed By: #### L 500.4100, L100.0100, L500.2500 #### [facility] [address] [place], [address] RDW SD 43.8 fl Normal 35.1-43.9 [facility] Comment on above: Performed By: #### L 500.4100, L100.0100, L500.2500 #### [facility] [address] [place], [address] WBC (Bld) [#/Vol] 6.3 10*3/uL Normal 4.4-11.0 [facility] Comment on above: Performed By: #### L 500.4100, L100.0100, L500.2500 #### [facility] [address] [place], [address] Consultation - Surgicalon Consultation - Surgical [facility] Medical Records Department [address] [place] [address] Consultation - Surgical 01/20/24 1542 MR#: [id number] Acct: [id number] Name: MARYSE MAK Rep #: [id number] : 1955 68 From: Florencio Leigh MD PCP: PAULETTE CARBALLO Status:ADM PETER Location: [place] [address] Assessment Plan Assessment/Plan (1) Left carotid artery stenosis: PLAN: -CTA images reviewed, left ICA 53% stenosis by NASCET, right no significant plaque or stenosis -duplex correlates, 50-69% stenosis on left -recommend re-initiate ASA, high dose statin -ok to DC -will follow up in office to initiate surveillance duplex of carotid and bilateral lower extremity bypasses HPI Consult Data Date of Consult: 01/20/24 HPI Narrative HPI Narrative: MARYSE MAK, is a 68 M who presents with 3 days of dizziness, unsteady on feet. Has had vertigo in past. Denies focal numbness/weakness/visi on loss/speech difficulty. Had a CTA that suggested severe left ICA stenosis. MRI negative for infarct. No prior knowledge of carotid stenosis. Does have cervical DJD, no neck surgery/XRT. Has not been taking ASA/statin. 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 due to popliteal aneurysms. [facility] Medical History Hypertension Neuropathy Vertigo Coronary atherosclerosis of bypass graft Home Medications ???Medication ???Instructions ???Recorded ???Last Taken ???Type aspirin 81 mg tablet,delayed 81 mg PO DAILY 01/19/24 01/19/24 History release brompheniramine-pseudo ephedrine-DM 5 ml PO 4X/DAY PRN PRN cough 01/19/24 Unknown History 2 mg-30 mg-10 mg/5 mL oral syrup gabapentin 800 mg tablet 800 mg PO TID 01/19/24 01/19/24 History hydrocodone 7.5 mg-acetaminophen 1 tab PO TID PRN PRN pain 01/19/24 01/19/24 History 325 mg tablet atorvastatin 40 mg tablet 40 mg PO QHS #30 tabs 01/20/24 Unknown Rx Allergy/AdvReac Type Severity Reaction Status Date / Time No Known Allergies Allergy Verified 01/19/24 13:18 Social History Smoking Status: Current every day smoker tobacco type: cigarettes ROS Constitutional Constitutional: Denies chills, fever(s), frequent falls, lethargy or weakness Eyes Eyes: Denies blind spots, change in vision or loss of vision ENT HEENT: Denies bleeding gums, hoarseness or sore throat Cardiovascular Cardiovascular: Denies abdominal pain, bluish discoloration of hand/feet, chest pain with activity, claudication, cold extremities, cyanosis, dyspnea on exertion, erythema on extremities, irregular heart rhythm, leg edema, leg ulcers, numbness in extremities or weakness in extremities Respiratory/Chest Respiratory/Chest: Denies cough, excessive phlegm production, shortness of breath at rest, shortness of breath with exertion or wheezing Gastrointestinal Gastrointestinal: Denies anorexia, change in stool character, constipation, diarrhea, melena or rectal bleeding Genitourinary Genitourinary: Denies dysuria or hematuria Musculoskeletal Musculoskeletal: Reports abnormal gait Integumentary Integumentary: Reports other Details: ; Denies erythema, non-healing lesions or wounds Neurologic Neurologic: Reports dizziness and vertigo; Denies abnormal speech, focal weakness, headache(s), loss of vision, numbness, paresthesias or sensory deficit Hematologic/Lymphatic Hematologic/Lymphatic: Denies easy bleeding, easy bruising or lymphadenopathy Physical Exam Const alert, oriented x3, no apparent distress and healthy appearing General Appearance: cooperative; Negative for combative or lethargic Orientation / Consciousness: awake Exam Limitations: no limitations HEENT Head and Scalp: normocephalic and atraumatic Eyes EOMs intact bilaterally General Eye: normal appearance of both eyes Neck full ROM, no lymphadenopathy and thyroid normal General: trachea midline; Negative for lymphadenopathy or tenderness Thyroid: thyroid normal Lymph Lymphatic: Negative for no lymphadenopathy noted Resp normal respiratory effort and no use of accessory muscles Effort and Inspection: Negative for labored, stridor or audible wheezes Cardio regular rate and regular rhythm Peripheral Pulses: brachial pulses present, radial pulses present, femoral pulses present and dorsalis pedis pulses present left; Negative for posterior tibial pulses present GI non-tender and non-distended; Negative for hepatosplenomegaly Back/Spine Cervical Spine: cervical ROM normal Extremity full ROM, normal capillary refill and no clubbing, cyanosis or edema Skin no rashes or lesions noted and no wounds Neuro oriented x3, CN's II-XII intact bilaterally, no focal motor deficits and no sensory deficits noted Psych thought process normal, cooperative, affect normal, speech no (more content not included)... Normal [facility] Discharge Instructionon Discharge Instruction [facility] Medical Records Department [address] [place] [address] Instructions for Home/Discharge Instructions 01/20/24 1541 MR#: [id number] Acct: [id number] Name: MARYSE MAK Rep #: [id number] : 1955 68 From: Bari Crisostomo MD PCP: PAULETTE CARBALLO Status:ADM PETER Discharge Instructions Diet Discharge Diet: Low fat / Low cholesterol and 2000 mg Sodium Diet Activity Discharge Activity: Return to Normal Activity Weight Bearing Status: Weight bearing as tolerated Dressing / Incision Call your doctor if you observe: Fever of 101 or Higher, Coldness, Increased Pain, Numbness or Tingling, Change in Color, Inability to urinate, Inability to have a bowel movement, Shortness of breath, Dizziness, Fainting spells, Swelling in the ankles, Chest pain, Prolonged hiccupping, Increased palpitations (irregular heartbeat) and Calf discomfort Follow Up Care When: IN 2 WEEKS Test Results: Test results from this visit will be discussed in further detail at your follow-up appointment, if applicable. Discharge Plan Admission Admit Date/Time: 01/19/24 15:29 Primary Reason for Your Visit: Possible TIA, dizziness/vertigo. Severe right ICA carotid stenosis. Attending Provider: Bari Crisostomo Primary Care Provider: PAULETTE CARBALLO Consulting Providers: Marcel Barton; Adonis Anderson; Roula Schmitt; Diane Cormier; Mary oJhnson; Luis Cox; Odette Fabian; Elijah Salgado; Kelli Meerdith; Filipe Emerson; Triny Vazquez; Marcelo Post; Keya Noguera; Mary Cruz; Regino Ramos; Rafa Aldana; Gillian Irwin; Robbie Montalvo; Davina Senior; Kodi Gutierres; Dhara Herr; Florencio Leigh Discharge Orders/Prescriptions Prescriptions: New atorvastatin 40 mg tablet 40 mg PO QHS Qty: 30 2RF Continued gabapentin 800 mg tablet 800 mg PO TID hydrocodone-acetaminop hen 7.5-325 mg tablet 1 tab PO TID PRN PRN (Reason: pain) aspirin 81 mg tablet,delayed release (DR/EC) 81 mg PO DAILY brompheniramine-pseudo eph-DM 2-30-10 mg/5 mL syrup 5 ml PO 4X/DAY PRN PRN (Reason: cough) Referrals / Follow Up: PAULETTE CARBALLO [Other] PAULETTE CARBALLO [Other] Florencio Leigh MD [Med Staff - Active Staff] - Within 1 Month Vijay Wilson MD [Non-Staff] - Within 1 Month Disposition Disposition (needs filled in before D/C Order can be placed): Home, Self Care 01/20/24 0241 Bari Crisostomo MD CC: Diane Cormier; Keya Noguera; Rafa Aldana; Mary Johnson MD; Roula Schmitt MD; Marcel Barton MD; Dr. Adonis Anderson MD; Dr. Luis Cox MD; Dr. Florencio Leigh MD; Dr. Odette Fabian MD; Dr. Kelli Meredith MD; Dr. Elijah Salgado MD; Dr. Filipe Emerson MD; Dr. Marcelo Post DO; Dr. Regino Ramos MD; Dr. Mary Cruz MD; Dr. Dhara Herr MD; Dr. Gillian Irwin MD; Dr. Robbie Montalvo MD; Dr. Davina Senior MD; PAULETTE CARBALLO; Triny Vazquez DO; Kodi Gutierres MD Signed Normal [facility] Lipid Profileon 01-20-2024 Cholesterol [Mass/Vol] 187 mg/dL Normal 200 [facility] Comment on above: Order Comment: Comme nts: NPO at [place] prior to lipid panel Result Comment: <200 mg/dL Desirable 200-240 mg/dL Borderline >240 mg/dL High Risk Performed By: #### L 500.4540, L100.0100, L500.2500 ####[facility] [address] [place], [place], [id number] Cholesterol in HDL [Mass/Vol] 33 mg/dL Low [facility] Comment on above: Order Comment: Comme nts: NPO at [place] prior to lipid panel Result Comment: The drugs N-Acetylcysteine and Metamizole may falsely depress this assay. Reference Range HDL <40 mg/dL Low HDL Cholesterol HDL >or= 60 mg/dL High HDL Cholesterol Performed By: #### L 500.4100, L100.0100, L500.2500 ####[facility] [address] [place], [address] Cholesterol in LDL [Mass/Vol] 100 mg/dL Normal 0-130 [facility] Comment on above: Order Comment: Comme nts: NPO at [place] prior to lipid panel Performed By: #### L 500.4100, L100.0100, L500.2500 ####[facility] [address] [facility] [place], [address] Cholesterol in VLDL [Mass/Vol] 54 mg/dL High 5-40 [facility] Comment on above: Order Comment: Comme nts: NPO at [place] prior to lipid panel Performed By: #### L 500.4100, L100.0100, L500.2500 ####[facility] [address] [facility] [place], [address] Triglyceride [Mass/Vol] 270 mg/dL High [facility] Comment on above: Order Comment: Comme nts: NPO at [place] prior to lipid panel Result Comment: The drugs N-Acetylcysteine and Metamizole may falsely depress this assay. Serum Triglycerides Reference Interval Normal <150 mg/dL Borderline high 150 - 199 mg/dL High 200 - 499 mg/dL Very High > or = 500 mg/dL Performed By: #### L 500.4100, L100.0100, L500.2500 ####[facility] [address] [place], [address] MR/CON.PCM.NEon 01-20-2024 MR/CON.PCM.NE [facility] Medical Records Department [address] [place] [address] Consultation - Neurology 01/20/24 1010 MR#: [id number] Acct: [id number] Name: MARYSE MAKMARCO Rep #: [id number] : 1955 68 From: Keya Noguera MD PCP: PAULETTE CARBALLO Status:ADM PETER Location: [place] [address] Assessment and Plan: Neuro Assessment/Plan MARYSE MAK is a 68 M with a past medical history of hypertension, chronic smoking being evaluated by Teleneurology for episode of off balance, lightheadedness and chronic intermittent vertiginous symptoms happened 3 days ago, resolved now on my evaluation. CTA of the head and neck showed severe atherosclerotic plaque formation at the origin of the left internal carotid artery with near complete occlusion and less than 50% stable at the origin of the right internal carotid artery. MRI brain negative. Episodes of lightheadedness with resultant off balance could be related to severe atherosclerotic disease and needs further investigation Diagnosis: severe atherosclerotic disease Plan: Carotid US , Vascular surgery consult. Continue with Aspirin, start atorvastatin 20 mg with LDL goal less than 70 . BP goal less than 130/80 , A1C less than 6.5. Follow up with neurology clinic in 6 weeks I personally attended this patient and spent a total time of 40 minutes evaluating this patient including clinical assessment, review of chart, medical history imaging, and determining appropriate treatment and workup. Keya Noguera MD [facility], Tele neurology Department HPI Consult Data Date of Consult: 01/20/24 HPI Narrative HPI Narrative: MARYSE MAK, is a 68 M who presents with a complaint of dizziness which had been going on for about 3 days prior to admission. He have history of intermittent episodes of vertiginous symptoms, light headedness however his symptoms were severe this time . He denies nausea, vomiting, flu like illness ,focal weakens ,headache . Vitals in the ED were blood pressure 136/92, pulse rate of 60, respiratory rate of 18 and oxygen saturation of 96% on room air. CBC was unremarkable. INR was 1. Chemistry was also largely unremarkable. Chest x-ray showed no acute cardiopulmonary pathology. CT of the brain showed no acute intracranial pathology and CTA of the head and neck showed severe atherosclerotic plaque formation at the origin of the left internal carotid artery with near complete occlusion and less than 50% stable at the origin of the right internal carotid artery. He is being admitted to be managed for dizziness and vertigo in the setting of severe carotid stenosis, to rule out a stroke. On my evaluation, he feels much better today and wants to go home. No focal neurological deficits noted. [facility] Medical History Hypertension Neuropathy Vertigo Coronary atherosclerosis of bypass graft Home Medications ???Medication ???Instructions ???Recorded ???Last Taken ???Type aspirin 81 mg tablet,delayed 81 mg PO DAILY 01/19/24 01/19/24 History release brompheniramine-pseudo ephedrine-DM 5 ml PO 4X/DAY PRN PRN cough 01/19/24 Unknown History 2 mg-30 mg-10 mg/5 mL oral syrup gabapentin 800 mg tablet 800 mg PO TID 01/19/24 01/19/24 History hydrocodone 7.5 mg-acetaminophen 1 tab PO TID PRN PRN pain 01/19/24 01/19/24 History 325 mg tablet Allergy/AdvReac Type Severity Reaction Status Date / Time No Known Allergies Allergy Verified 01/19/24 13:18 Social History Smoking Status: Current every day smoker tobacco type: cigarettes Vital Signs Vital Signs Vital Signs: 01/19/24 12:55 01/19/24 13:22 01/19/24 13:22 Temperature 97.1 F L Temperature Source Temporal Pulse Rate 85 71 Pulse Rate [Lying] Pulse Rate [Sitting (for 1 minute prior to obtaining)] Pulse Rate [Standing (for 1 minute prior to obtaining)] Pulse Strength Respiratory Rate 17 20 H Respiratory Effort Respiratory Depth Respiratory Pattern Blood Pressure 128/90 H 127/94 H Blood Pressure [Lying] Blood Pressure [Sitting (for 1 minute prior to obtaining)] Blood Pressure [Standing (for 1 minute prior to obtaining)] Blood Pressure Mean 102 105 Blood Pressure Mean [Lying] Blood Pressure Mean [Sitting (for 1 minute prior to obtaining)] Blood Pressure Mean [Standing (for 1 minute prior to obtaining)] Blood Pressure Source Blood Pressure Position Blood Pressure Location Pulse Ox 95 94 94 Oxygen Delivery Method Room Air Room Air Room Air 01/19/24 13:52 01/19/24 14:54 01/19/24 16:00 Temperature Temperature Source Pulse Rate 66 60 60 Pulse Rate [Lying] Pulse Rate [Sitting (for 1 minute prior to obtaining)] Pulse Rate [Standing (for 1 minute prior to (more content not included)... Normal [facility] 12 Lead EKGon 01-19-2024 12 Lead EKG [facility] Cardiovascular Services [address] [place] [address] 12 Lead EKG 01/19/24 1324 MR#: [id number] Acct: [id number] Name: MARYSE MAK Rep #: [id number] : 1955 68 From: Rah Gaspar MD Attending Dr: Dr. Bari Crisostomo MD Status: ADM PETER Ordering Dr: Darren Bahena MD Date: 01/19/24 Location: [facility] Sex: M C Admitted: 01/19/24 Test Reason : Blood Pressure : / mmHG Vent. Rate : 070 BPM Atrial Rate : 070 BPM P-R Int : 178 ms QRS Dur : 084 ms QT Int : 374 ms P-R-T Axes : 047 033 061 degrees QTc Int : 403 ms Normal sinus rhythm Nonspecific T wave abnormality Abnormal ECG Confirmed by CHASITY CARPIO, RAH ([id number]), editor producer ERIK KENNEDY ([id number]) on 01/20/2024 1:49:48 PM Referred By: Confirmed By:RAH GASPAR MD 01/20/24 1349 Date Rah Gaspar MD CC: Dr. Darren Bahena MD; Dr. Bari Crisostomo MD; PAULETTE CARBALLO Signed Normal [facility] Basic Metabolic Profile (BMP )on 01-19-2024 BUN/CRE 14.2 RATIO Normal 10-20 [facility] Comment on above: Order Comment: 'TROP ' Serial specimen #1, #2 or #3: 1 Performed By: #### L 300.4310, L300.3900, L100.0100, L501.4020, L500.2500 ####[facility] [address] [place], [address] CA,Total 9.4 mg/dL Normal 8.5-10.1 [facility] Comment on above: Order Comment: 'TROP ' Serial specimen #1, #2 or #3: 1 Performed By: #### L 300.4310, L300.3900, L100.0100, L501.4020, L500.2500 ####[facility] [address] [place], [address] Chloride [Moles/Vol] 109 mmol/L High 98-107 [facility] Comment on above: Order Comment: 'TROP ' Serial specimen #1, #2 or #3: 1 Performed By: #### L 300.4310, L300.3900, L100.0100, L501.4020, L500.2500 ####[facility] [address] [place], [address] CO2 [Moles/Vol] 30.0 mmol/L Normal 21.0-32.0 [facility] Comment on above: Order Comment: 'TROP ' Serial specimen #1, #2 or #3: 1 Performed By: #### L 300.4310, L300.3900, L100.0100, L501.4020, L500.2500 ####[facility] [address] [place], [address] Creatinine [Mass/Vol] 1.13 mg/dL Normal 0.70-1.30 [facility] Comment on above: Order Comment: 'TROP ' Serial specimen #1, #2 or #3: 1 Result Comment: The validity of the calculated GFR GFRAA in patients over 70 years has not been determined. Clinical correlation is essential. Performed By: #### L 300.4310, L300.3900, L100.0100, L501.4020, L500.2500 ####[facility] [address] [place], [address] ECRCL 79.38 ml/min Normal [facility] Comment on above: Order Comment: 'TROP ' Serial specimen #1, #2 or #3: 1 Performed By: #### L 300.4310, L300.3900, L100.0100, L501.4020, L500.2500 ####[facility] [address] [place], [address] EST GFR - AA 83 mL/min Normal >60 [facility] Comment on above: Order Comment: 'TROP ' Serial specimen #1, #2 or #3: 1 Result Comment: Afri can Estonian GFR Calc Performed By: #### L 300.4310, L300.3900, L100.0100, L501.4020, L500.2500 ####[facility] [address] [place], [address] GAP 2 Low 5-15 [facility] Comment on above: Order Comment: 'TROP ' Serial specimen #1, #2 or #3: 1 Performed By: #### L 300.4310, L300.3900, L100.0100, L501.4020, L500.2500 ####[facility] [address] [place], [address] GFR/1.73 sq M.predicted among non-blacks MDRD (S/P/Bld) [Vol rate/Area] 69 mL/min/{1.73_m2} Normal >60 [facility] Comment on above: Order Comment: 'TROP ' Serial specimen #1, #2 or #3: 1 Result Comment: Non- GFR Calc Performed By: #### L 300.4310, L300.3900, L100.0100, L501.4020, L500.2500 ####[facility] [address] [place], [address] Glucose [Mass/Vol] 105 mg/dL Normal 74-106 [facility] Comment on above: Order Comment: 'TROP ' Serial specimen #1, #2 or #3: 1 Result Comment: Fast ing Glucose result from 100 to 125 mg/dL suggests IMPAIRED HOMEOSTASIS per A.D.A. criteria. Performed By: #### L 300.4310, L300.3900, L100.0100, L501.4020, L500.2500 ####[facility] [address] [place], [address] Potassium [Moles/Vol] 3.8 mmol/L Normal 3.5-5.1 [facility] Comment on above: Order Comment: 'TROP ' Serial specimen #1, #2 or #3: 1 Performed By: #### L 300.4310, L300.3900, L100.0100, L501.4020, L500.2500 ####[facility] [address] [place], [address] Sodium [Moles/Vol] 141 mmol/L Normal 136-145 [facility] Comment on above: Order Comment: 'TROP ' Serial specimen #1, #2 or #3: 1 Performed By: #### L 300.4310, L300.3900, L100.0100, L501.4020, L500.2500 ####[facility] [address] [place], [address] Urea nitrogen [Mass/Vol] 16 mg/dL Normal 7-18 [facility] Comment on above: Order Comment: 'TROP ' Serial specimen #1, #2 or #3: 1 Performed By: #### L 300.4310, L300.3900, L100.0100, L501.4020, L500.2500 ####[facility] [address] [place], [address] Bedside Glucoseon 01-19-2024 FINGERSTICK GLU 111 mg/dL High 74-106 [facility] Comment on above: Result Comment: EKTA TA OF PATIENT CARE PER NURSING PROTOCOL Performed By: #### L 501.080 ####[facility] [address] [place], [address] Brain without Contraston Brain without Contrast [facility] Imaging Services [address] [place] [address] Brain without Contrast MR#: [id number] Acct: [id number] Name: MARYSE MAK Rep #: [id number] : 1955 M 68 From: Aayush manzo DO PCP: PAULETTE CARBALLO Status: ADM PETER Study: Brain without Contrast Date of Exam: 01/19/24 Exam# [id number] Ordering Dr: Dhara Herr MD [id number] EXAM: MR HEAD WITHOUT INTRAVENOUS CONTRAST CLINICAL INDICATION: dizziness, vertigo, compare to CT TECHNIQUE: Multiplanar and multisequence MR images of the brain were obtained without intravenous contrast. COMPARISON: CTA head and neck on the same date. FINDINGS: BRAIN AND EXTRA-AXIAL SPACES: Chronic right cerebellar infarct. No restricted diffusion to indicate recent infarct or other pathology. Scattered foci of subcortical and periventricular T2 and T2 FLAIR hyperintensity are nonspecific although most commonly due to chronic microvascular ischemic changes in a patient of this age. No hydrocephalus. Patent basal cisterns. No acute intracranial hemorrhage or pathologic extra-axial fluid. No intracranial mass or mass effect. SELLA: No significant abnormality. Normal sella turcica, pituitary gland, infundibular stalk, optic chiasm and hypothalamus. AUDITORY SYSTEM: No significant abnormality. The internal auditory canals are patent. BONES/JOINTS: No significant abnormality. No discrete lytic or blastic abnormalities. SINUSES: Normal as visualized. Clear. MASTOID AIR CELLS: Normal as visualized. Clear. ORBITS: Normal as visualized. Both globes, extraocular muscles, optic nerves and retrobulbar fat appear unremarkable. VASCULATURE: Normal as visualized. Normal flow voids in the major intracranial circulation. MRI/Brain without Contrast IMPRESSION: No acute findings in the head/brain. Evidence of chronic microvascular ischemic changes. Electronically Signed: Aayush Jorge DO at 20:30 EDT , CC: Dr. Dhara Herr MD; PAULETTE CARBALLO Dental Ceramist Assistant: Signed Normal [facility] CBC W/Diff, Automatedon 09-0 Absolute Lymph 1.91 X10 3/uL Normal 0.83-4.51 [facility] Comment on above: Performed By: #### L 300.4310, L300.3900, L100.0100, L501.4020, L500.2500 ####[facility] [address] [place], [address] Absolute Neut 4.4 X10 3/uL Normal 2.0-7.7 [facility] Comment on above: Performed By: #### L 300.4310, L300.3900, L100.0100, L501.4020, L500.2500 ####[facility] [address] [place], [address] Basophils/100 WBC (Bld) 0.4 % Normal 0-1 [facility] Comment on above: Performed By: #### L 300.4310, L300.3900, L100.0100, L501.4020, L500.2500 ####[facility] [address] [place], [address] Eosinophils/100 WBC (Bld) 3.3 % Normal 0-5 [facility] Comment on above: Performed By: #### L 300.4310, L300.3900, L100.0100, L501.4020, L500.2500 ####[facility] [address] [place], [address] Erythrocyte distribution width (RBC) [Ratio] 13.2 % Normal 11.6-14.6 [facility] Comment on above: Performed By: #### L 300.4310, L300.3900, L100.0100, L501.4020, L500.2500 ####[facility] [address] [place], [address] Hematocrit (Bld) [Volume fraction] 46.7 % Normal 40-54 [facility] Comment on above: Performed By: #### L 300.4310, L300.3900, L100.0100, L501.4020, L500.2500 ####[facility] [address] [facility] [address] Hemoglobin (Bld) [Mass/Vol] 16.3 g/dL Normal 13.0-16.5 [facility] Comment on above: Performed By: #### L 300.4310, L300.3900, L100.0100, L501.4020, L500.2500 ####[facility] [address] [facility] [address] IG% 0.400 Normal 0.0-0.9 [facility] Comment on above: Result Comment: IG% - Immature Granulocytes (promyelocytes, myelocytes and metamyelocytes) > 1% indicates that a LEFT SHIFT is Present. Performed By: #### L 300.4310, L300.3900, L100.0100, L501.4020, L500.2500 ####[facility] [address] [facility] [address] [place] [id number] Lymphocytes/100 WBC (Bld) 27.0 % Normal 19-41 [facility] Comment on above: Performed By: #### L 300.4310, L300.3900, L100.0100, L501.4020, L500.2500 ####[facility] [address] [facility] [place] [phone] MCH (RBC) [Entitic mass] 32.1 pg High 27.0-32.0 [facility] Comment on above: Performed By: #### L 300.4310, L300.3900, L100.0100, L501.4020, L500.2500 ####[facility] [address] [facility] [address] MCHC (RBC) [Mass/Vol] 34.9 g/dL Normal 32-36 [facility] Comment on above: Performed By: #### L 300.4310, L300.3900, L100.0100, L501.4020, L500.2500 ####[facility] [address] [place], [address] MCV (RBC) [Entitic vol] 92.1 fL Normal 80-94 [facility] Comment on above: Performed By: #### L 300.4310, L300.3900, L100.0100, L501.4020, L500.2500 ####[facility] [address] [place], [address] Monocytes/100 WBC (Bld) 6.4 % Normal 0-10 [facility] Comment on above: Performed By: #### L 300.4310, L300.3900, L100.0100, L501.4020, L500.2500 ####[facility] [address] [place], [address] Neutrophils/100 WBC (Bld) 62.5 % Normal 47-70 [facility] Comment on above: Performed By: #### L 300.4310, L300.3900, L100.0100, L501.4020, L500.2500 ####[facility] [address] [place], [address] Nucleated RBC (Bld) [#/Vol] 0 10*3/uL Normal 0-5 [facility] Comment on above: Performed By: #### L 300.4310, L300.3900, L100.0100, L501.4020, L500.2500 ####[facility] [address] [place], [address] Platelet mean volume (Bld) [Entitic vol] 10.8 fL Normal 6.2-12.0 [facility] Comment on above: Performed By: #### L 300.4310, L300.3900, L100.0100, L501.4020, L500.2500 ####[facility] [address] [place], [address] Platelets (Bld) [#/Vol] 241 10*3/uL Normal 150-450 [facility] Comment on above: Performed By: #### L 300.4310, L300.3900, L100.0100, L501.4020, L500.2500 ####[facility] [address] [place], [address] RBC (Bld) [#/Vol] 5.07 10*6/uL Normal 4.6-6.2 [facility] Comment on above: Performed By: #### L 300.4310, L300.3900, L100.0100, L501.4020, L500.2500 ####[facility] [address] [place], [address] RDW SD 44.4 fl High 35.1-43.9 [facility] Comment on above: Performed By: #### L 300.4310, L300.3900, L100.0100, L501.4020, L500.2500 ####[facility] [address] [place], [address] WBC (Bld) [#/Vol] 7.1 10*3/uL Normal 4.4-11.0 [facility] Comment on above: Performed By: #### L 300.4310, L300.3900, L100.0100, L501.4020, L500.2500 ####[facility] [address] [place], [address] CTA Head AND Neck W/ Contras ton 01-19-2024 CTA Head AND Neck W/ Contrast [facility] Imaging Services [address] [place] [address] CTA Head AND Neck W/ Contrast MR#: [id number] Acct: [id number] Name: MARYSE MAK Rep #: [id number] : 1955 M 68 From: Piyush hinojosa MD PCP: PAULETTE CARBALLO Status: [facility] Study: CTA Head AND Neck W/ Contrast Date of Exam: Exam# [id number] Ordering Dr: Darren Bahena MD [id number] STUDY: CTA HEAD AND NECK WITH CONTRAST REASON FOR EXAM: Male, 68 years old. Neuro deficit, acute, stroke suspected. RADIATION DOSAGE (If Supplied By Facility): CTDIvol = ( 32.97 ) mGy, DLP = ( 1688.96 ) mGycm TECHNIQUE: CT angiography was performed with a multi-detector CT scanner. Data acquisition was obtained from the skull base through the vertex following intravenous administration of IV 100mL Isovue-370. MIP images were reconstructed from the axial data set. Post-processing of the angiographic images was performed, with multiplanar reformation and 3D reconstruction. Individualized dose optimization techniques were used for this CT. COMPARISON: No relevant priors. FINDINGS: Normal bilateral petrous carotid arteries. There is calcified plaque formation of the right cavernous carotid artery, with a mild stenosis (less than 50%). There is calcified plaque formation of the left cavernous carotid artery, with a mild stenosis (less than 50%). Normal right A1 segments of the anterior cerebral artery. Normal left A1 segments of the anterior cerebral artery. Normal intact anterior communicating artery (ACOM). Normal bilateral A2 segments of the anterior cerebral arteries. Normal right M1 and M2 segments of the middle cerebral arteries, with a normal M1 bifurcation. Normal left M1 and M2 segments of the middle cerebral arteries, with a normal M1 bifurcation. Normal right posterior communicating artery (PCOM). Normal left posterior communicating artery (PCOM). Normal bilateral vertebral arteries. Normal basilar artery with a normal basilar bifurcation. The visualized bilateral superior cerebellar (SCA) arteries are normal. Normal bilateral P1, P2 and visualized P3 segments of the posterior cerebral arteries. There is no demonstrated aneurysm of the [place]. Mild degree of cerebral atrophy. Mild degree of decreased density in periventricular white matter bilaterally suggestive of small vessel disease. AORTIC ARCH: There is atherosclerotic calcific plaque formation of the aortic arch and great vessels arising from the aortic arch, without a hemodynamically significant stenosis. There is a normal origin of the brachiocephalic, left common carotid, and left subclavian arteries. Atherosclerotic plaque formation at the origin of the left subclavian artery and left carotid artery. RIGHT CAROTID ARTERIES: Normal right common carotid artery (CCA). Normal right common carotid bulb. There is mild atherosclerotic plaque formation of the origin of the right internal carotid artery with less than 50% cross sectional diameter stenosis. Normal visualized cervical portion of the right internal carotid artery. Normal origin of the right external carotid artery (ECA). LEFT CAROTID ARTERIES: Normal left common carotid artery (CCA). There is moderate atherosclerotic plaque formation with moderate narrowing of the carotid bulb. There is severe atherosclerotic plaque formation of the origin of the left internal carotid artery with a near complete occlusion. Normal visualized cervical portion of the left internal carotid artery. Normal origin of the left external carotid artery (ECA). VERTEBRAL ARTERIES: Nonstenotic calcified plaques throughout the left vertebral artery. CT/CTA Head AND Neck W/ Contrast IMPRESSION: High-grade stenosis at the origin of the left internal carotid artery. Less than 50% narrowing at the origin of the right internal carotid artery. Electronically Signed: Piyush Flower MD at 14:56 EDT Reading Location ID and State: [facility] / [place] , Service support , CC: Dr. Darren Bahena MD; PAULETTE CARBALLO Dental Ceramist Assistant: Signed Normal [facility] Carotid Duplex Ultrasoundon 01-19-2024 Carotid Duplex Ultrasound [facility] Cardiovascular Services [address] [place] [address] Carotid Duplex Ultrasound 01/20/24 0749 MR#: [id number] Acct: [id number] Name: MARYSE MAK Rep #: [id number] : 1955 68 From: Florencio Leigh MD Attending Dr: Dr. Bari Crisostomo MD Status: DIS PETER Ordering Dr: Dhara Herr MD Date: 01/19/24 Location: U Sex: M C Admitted: 01/19/24 Reason For Study: LICA STENOSIS (by CT) Rt. Velocities/BP Lt. Velocities/BP Prox CCA 60.1/14.7 cm/sec. Prox CCA 63.6/15.6 cm/sec. Mid CCA 61.0/18.5 cm/sec. Mid CCA 56.6/17.4 cm/sec. Dist CCA 49.7/18.5 cm/sec. Dist CCA 43.5/11.3 cm/sec. Prox ICA 38.9/13.6 cm/sec. Prox ICA 64.1/23.6 cm/sec. Mid ICA 40.3/18.2 cm/sec. Mid ICA 155.6/70.0 cm/sec. Dist ICA 66.6/32.5 cm/sec. Dist ICA 109.5/43.7 cm/sec. Rt. ICA/CCA = 66.6/61.0=1.1. Lt. ICA/CCA = 155.6/56.6=2.75. Prox ECA 64.8/9.1 cm/sec. ECA velocity inadvertently not taken. Rt. Vert. 21.3/8.5 cm/sec. Lt. Vert. 42.8/19.7 cm/sec. Right Extracranial There is homogeneous, smooth atherosclerotic plaque noted in the right common carotid artery. There is heterogeneous, smooth atherosclerotic plaque noted in the right internal carotid artery. There is heterogeneous, irregular atherosclerotic plaque noted in the right external carotid artery. Antegrade flow is noted in the right vertebral artery. Left Extracranial There is homogeneous, smooth atherosclerotic plaque noted in the left common carotid artery. There is heterogeneous, irregular atherosclerotic plaque noted in the left internal carotid artery. There is heterogeneous, irregular atherosclerotic plaque noted in the left external carotid artery. Antegrade flow is noted in the left vertebral artery. There is heterogeneous, irregular atherosclerotic plaque noted in the left bulb. Procedure Carotid Duplex 23363. This is a Carotid Duplex examination using B-mode, color flow and specral Doppler. The study was technically difficult. PT unable to lie still due to back pain. LT CCA, ECA, ICA assessed with PT in right lateral decubitus position. Exam performed portable in patient room. VL/Carotid Duplex Ultrasound Interpretation Summary Mild (<50%) stenosis right extracranial internal carotid. Moderate (50-69%) stenosis left extracranial internal carotid. Patent and antegrade vertebrals bilaterally. Ordering Physician: Dhara Herr Referring Physician: OTD Performed By: Keisha Hinojosa, SURENDRA, RVT 01/21/24 1058 Date Florencio Leigh MD CC: Dr. Dhara Herr MD; Dr. Bari Crisostomo MD; PAULETTE CARBALLO Date Dictated: 01/20/2449 Date Transcribed: 01/21/24 105 Dental Ceramist Assistant: Signed Normal [facility] Chest 1 Viewon 01-19-2024 Chest 1 View [facility] Imaging Services [address] [place], [place] [address] Chest 1 View MR#: [id number] Acct: [id number] Name: MARYSE MAK Rep #: [id number] : 1955 M 68 From: Piyush hinojosa MD PCP: PAULETTE CARBALLO Status: REG ER Study: Chest 1 View Date of Exam: 01/19/24 Exam# [id number] Ordering Dr: Darren Bahena MD [id number] STUDY: X-RAY CHEST REASON FOR EXAM: Male, 68 years old. Neuro deficit, acute, stroke suspected TECHNIQUE: Single AP portable view of the chest. COMPARISON: None. FINDINGS: EKG electrodes are seen. The lungs are clear and expanded. There is no demonstrated pleural abnormality. Sternal cerclage wires are present from a prior sternotomy. Normal mediastinum and kalia. Normal visualized pulmonary arteries. There is atherosclerotic calcification of the aortic arch with tortuosity. There are diffuse degenerative changes of the visualized thoracic spine. Normal visualized ribs, clavicles, and shoulders. There is no demonstrated abnormality of the visualized soft tissue structures of the upper abdomen. RAD/Chest 1 View IMPRESSION: No acute abnormalities. Electronically Signed: Piyush Flower MD at 14:02 EDT , CC: Dr. Darren Bahena MD; PAULETTE CARBALLO Dental Ceramist Assistant: Signed Normal [facility] Echo Completeon 01-19-2024 Echo Complete [facility] Cardiovascular Services [address] [place] [address] Echo Complete 01/20/24 1450 MR#: [id number] Acct: [id number] Name: MARYSE MAK Rep #: [id number] : 1955 68 From: Rah Gaspar MD Attending Dr: Dr. Bari Crisostomo MD Status: ADM PETER Ordering Dr: Dhara Herr MD Date: 01/19/24 Location: U Sex: M C Admitted: 01/19/24 Reason For Study: TIA/CVA Procedure This was a 2D Doppler, Color Flow transthoracic echocardiogram. Exam performed portable in patient room. Left Ventricle Normal LV size. Left ventricular systolic function is normal. The left ventricular ejection fraction is 65 %. Stage 1 diastolic dysfunction. No regional wall motion abnormalities noted. Right Ventricle Normal RV size. Normal systolic function. Atria Normal left atrium. Normal right atrium. Bubble contrast study negative for right to left interatrial shunt. Mitral Valve Normal mitral valve. Tricuspid Valve Normal tricuspid valve. Mild (1+) tricuspid valve insufficiency. Pulmonary artery systolic pressure is 33 mmHg. Aortic Valve Trisinus/trileaflet aortic valve. Mild diffuse aortic valve thickening. Pulmonic Valve Normal pulmonic valve. Great Vessels Normal aortic root. The pulmonary artery is normal size. Normal inferior vena cava. Pericardium/Pleural No pericardial effusion. Medication Performed a rapid injection of agitated mix of 9 cc saline and 1cc air to assess for atrial septal defect. MMode/2D Measurements Calculations LVIDd: 4.4 cm IVSd: 1.3 cm Ao root diam: 3.3 cm LVIDs: 2.8 cm LVPWd: 1.1 cm RVDd: 3.9 cm FS: 35.2 % LAV(MOD-bp): 53.4 ml LVAd ap4: 26.7 cm2 SV(MOD-sp4): 46.7 ml LAV(MOD-bp) Indexed: 24.1 ml/m2 LVLd ap4: 8.3 cm LAV(MOD-sp2): 53.2 ml EDV(MOD-sp4): 72.7 ml LAV(MOD-sp4): 48.3 ml EDV(sp4-el): 73.1 ml LVAs ap4: 14.2 cm2 LVLs ap4: 6.9 cm ESV(MOD-sp4): 26.0 ml ESV(sp4-el): 24.9 ml EF(MOD-sp4): 64.2 % EF(sp4-el): 65.9 % SV(sp4-el): 48.2 ml LA A4 area: 19.1 cm2 LA dimension(2D): 3.5 cm RA A4 area: 20.1 cm2 TAPSE: 1.9 cm Time Measurements MV dec time: 0.28 sec Doppler Measurements Calculations MV E max paras: 68.5 cm/sec Lat Peak E' Paras: 13.3 cm/sec Med Peak E' Paras: 8.7 cm/sec MV A max paras: 80.2 cm/sec E/E' lat: 5.1 E/E' med: 7.8 MV E/A: 0.85 Ao V2 max: 190.7 cm/sec LV V1 max: 120.7 cm/sec PA V2 max: 99.9 cm/sec Ao max P.5 mmHg LV V1 max P.8 mmHg TR max paras: 265.9 cm/sec TR max P.3 mmHg ECHO/Echo Complete Interpretation Summary Normal LV size. Left ventricular systolic function is normal. The left ventricular ejection fraction is 65 %. Stage 1 diastolic dysfunction. Bubble contrast study negative for right to left interatrial shunt. Ordering Physician: Dhara Herr Performed By: Sade Crowell RDCS 01/20/24 1607 Date Rah Gaspar MD CC: Dr. Dhara Herr MD; Dr. Bari Crisostomo MD; PAULETTE CARBALLO Date Dictated: 01/20/24 1450 Date Transcribed: 01/20/24 160 Dental Ceramist Assistant: Signed Normal [facility] Emergency Department Summary on 01-19-2024 Emergency Department Summary [facility] Medical Records Department [address] [place] [address] Emergency Department Summary 01/19/24 MR#: [id number] Acct: [id number] Name: MARYSE MAK Rep #: [id number] : 1955 68 From: Darren Bahena MD PCP: PAULETTE CARBALLO Status:REG ER Location: ED HPI History of Present Illness Chief Complaint: Dizziness Informant: patient Onset/Context/Timing Onset: Days Context: Gradual Onset Timing: Intermittent Current Severity: Mild Maximum Severity: Mild Narrative Narrative: 68-year-old male history of prior low potassium and vertigo. Denies stroke or mini stroke. States that dizziness which she describes as lightheadedness, off balance at times room spinning intermi ttently since Wednesday. Worse with movement. Denies any headache. Mild nausea no vomiting or diarrhea. No fever. Also states the last couple weeks he has felt more short of breath than his baseline. Denies any current chest pain but at times he does have chest tightness. Prior similar symptoms: Yes Recent Illness/Hospitalizatio n: No PFSH PFS Medical History Hypertension Neuropathy Vertigo Coronary atherosclerosis of bypass graft Home Medications ???Medication ???Instructions ???Recorded ???Last Taken ???Type gabapentin 800 mg tablet 800 mg PO TID 01/19/24 Unknown History hydrocodone 7.5 mg-acetaminophen 1 tab PO TID PRN PRN pain 01/19/24 Unknown History 325 mg tablet Allergy/AdvReac Type Severity Reaction Status Date / Time No Known Allergies Allergy Verified 01/19/24 13:18 Social History Smoking Status: Current every day smoker tobacco type: cigarettes ROS ROS ED ROS Narrative Denies recent illness. Constitutional Constitutional ED: Denies chills or fever(s) Eyes Eyes: Denies blurry vision ENT ENT ED: Denies ear pain Cardiovascular Cardiovascular: Reports chest pain; Denies palpitations or racing heartbeat Respiratory/Chest Respiratory/Chest: Reports dyspnea and dyspnea on exertion; Denies cough Gastrointestinal Gastrointestinal: Denies abdominal pain or constipation Genitourinary Genitourinary ED: Denies dysuria or hematuria Musculoskeletal Musculoskeletal: Denies arthralgias Integumentary Denies abscess Neurologic Neurologic: Denies headache(s) Psychiatric Psychiatric: Denies anxiety Endocrine Endocrinology: Denies cold intolerance Hematologic/Lymphatic Hematologic/Lymphatic: Reports none Allergic/Immunologic Allergic/Immunologic ED: Denies mouth swelling, tongue swelling or urticaria EXAM Physical Exam Narrative Exam Narrative: Well-appearing 64-year-old male. Vital signs stable afebrile. He does not look septic toxic or in any distress. Pulse ox 95% on room air no hypoxia. H EENT exam unremarkable. TMs normal bilaterally. No wax. No facial droop. Normal speech. Tongue midline. Neck nontender. No JVD. Lungs clear to auscultation bilaterally. Heart regular rhythm rate about 85 no murmur. Chest wall and ribs nontender. Abdomen soft nontender. Moving all 4 extremities. 5 out of 5 central melt specialist strength. Dorsi plantarflexion intact. Hallpike may be slightly increased dizziness. No facial droop. Fingertip to nose within normal limits. Back nontender. NIH score is 0. Const Vital Signs: 01/19/24 12:55 01/19/24 13:22 01/19/24 13:22 Temperature 97.1 F L Temperature Source Temporal Pulse Rate 85 71 Respiratory Rate 17 20 H Blood Pressure 128/90 H 127/94 H Blood Pressure Mean 102 105 Pulse Ox 95 94 94 Oxygen Delivery Method Room Air Room Air Room Air 01/19/24 13:52 01/19/24 14:54 Temperature Temperature Source Pulse Rate 66 60 Respiratory Rate 20 H 18 Blood Pressure 119/90 H 136/92 H Blood Pressure Mean 99 106 Pulse Ox 96 96 Oxygen Delivery Method Room Air Room Air Positive well nourished and well developed; Negative for obese, cachectic, contractures or unkempt General Appearance ED: well developed and NAD; Negative for unkempt, cachectic, contractures, diaphoretic or pallor Nutritional Appearance: Negative for cachectic or obese HEENT Reports moist mucous membranes; Denies dry mucous membranes Negative for trauma or tenderness Mouth ED: No dry mucous membranes Mouth: No dry mucous membranes Eyes PERRL and EOMs intact bilaterally General Eye ED: Negative for pale conjunctiva or scleral icterus Neck no lymphadenopathy, supple and no JVD General: Negative for tenderness Lymph Lymphatic: Negative for other Chest Wall inspection of chest normal and palpation of chest normal Resp normal respiratory effort and clear to auscultation bilaterally Effort and Inspection: Negative for retractions Auscultation: Negative for rales, rhonchi, wheezes (more content not included)... Normal [facility] H AND P Exam - [facility] 01-19-2024 H&P Exam - Hospitalist [facility] Medical Records Department [address] [place] [address] H P Exam - [facility] 01/19/24 1515 MR#: [id number] Acct: [id number] Name: MARYSE MAK Rep #: [id number] : 1955 68 From: Dhara Herr MD PCP: PAULETTE CARBALLO Status:ADM PETER Location: [place] [id number] HPI - General General Date of Admission: 01/19/24 Date of Service: 01/19/24 Chief Complaint: dizziness HPI Narrative MARYSE MAK, is a 68 M with a PMH as outlined who presents via the ED on 01/19/2024 with a complaint of dizziness which had been going on for about 3 days prior to admission. The dizziness was worsening, and he felt off balance and worsened with movement. He denied any headache, ringing in ears, blurred vision, palpitations, nausea or vomiting. He denied any focal weakness or numbness or tingling. Review of systems otherwise negative. Vitals in the ED were blood pressure 136/92, pulse rate of 60, respiratory rate of 18 and oxygen saturation of 96% on room air. CBC was unremarkable. INR was 1. Chemistry was also largely unremarkable. Chest x-ray showed no acute cardiopulmonary pathology. CT of the brain showed no acute intracranial pathology and CTA of the head and neck showed severe atherosclerotic plaque formation at the origin of the left internal carotid artery with near complete occlusion and less than 50% stable at the origin of the right internal carotid artery. He is being admitted to be managed for dizziness and vertigo in the setting of severe carotid stenosis, to rule out a stroke. [facility] Medical History Hypertension Neuropathy Vertigo Coronary atherosclerosis of bypass graft Home Medications ???Medication ???Instructions ???Recorded ???Last Taken ???Type aspirin 81 mg tablet,delayed 81 mg PO DAILY 01/19/24 01/19/24 History release brompheniramine-pseudo ephedrine-DM 5 ml PO 4X/DAY PRN PRN cough 01/19/24 Unknown History 2 mg-30 mg-10 mg/5 mL oral syrup gabapentin 800 mg tablet 800 mg PO TID 01/19/24 01/19/24 History hydrocodone 7.5 mg-acetaminophen 1 tab PO TID PRN PRN pain 01/19/24 01/19/24 History 325 mg tablet Allergy/AdvReac Type Severity Reaction Status Date / Time No Known Allergies Allergy Verified 01/19/24 13:18 Social History Smoking Status: Current every day smoker tobacco type: cigarettes ROS Constitutional Constitutional: Denies anorexia, change in weight, chills, fatigue, fever(s), malaise, night sweats or weakness Eyes Eyes: Denies change in vision, double vision or loss of vision ENT HEENT: Denies dysphagia or headache(s) Cardiovascular Cardiovascular: Reports lightheadedness; Denies chest pain, dyspnea on exertion, edema, orthopnea, palpitations, paroxysmal nocturnal dyspnea, rapid heart rate or syncope Respiratory/Chest Respiratory/Chest: Denies cough, dyspnea, shortness of breath at rest, shortness of breath with exertion or wheezing Gastrointestinal Gastrointestinal: Denies constipation, diarrhea, nausea or vomiting Genitourinary Genitourinary: Denies burning urination, dysuria or nocturia Musculoskeletal Musculoskeletal: Denies arthralgias or joint pain Neurologic Neurologic: Reports dizziness; Denies confusion, disequilibrium, focal weakness, headache(s), numbness, paresthesias, seizure-like activity, seizures, syncope or tingling Psychiatric Psychiatric: Denies anxiety or depression Endocrine Endocrinology: Denies change in body appearance Vital Signs Vital Signs Vital Signs: 01/19/24 12:55 01/19/24 13:22 01/19/24 13:22 Temperature 97.1 F L Temperature Source Temporal Pulse Rate 85 71 Respiratory Rate 17 20 H Blood Pressure 128/90 H 127/94 H Blood Pressure Mean 102 105 Pulse Ox 95 94 94 Oxygen Delivery Method Room Air Room Air Room Air 01/19/24 13:52 01/19/24 14:54 Temperature Temperature Source Pulse Rate 66 60 Respiratory Rate 20 H 18 Blood Pressure 119/90 H 136/92 H Blood Pressure Mean 99 106 Pulse Ox 96 96 Oxygen Delivery Method Room Air Room Air Weight Weight: 224 lb 6.889 oz Body Mass Index (BMI) 30.4 Physical Exam Const alert, oriented x3 and no apparent distress General Appearance: cooperative HEENT normocephalic, head/scalp atraumatic, hearing grossly normal bilaterally, moist oral mucous membranes and oropharynx normal Mouth: oral and palatal mucosa normal Eyes PERRL, EOMs intact bilaterally and conjunctivae normal Neck no lymphadenopathy and supple Resp normal respiratory effort, no retractions, no use of accessory muscles and clear to auscultation bilaterally Cardio regular rate, regular rhythm, S1 normal heart sound, S2 normal heart sound and no murmurs GI normal to (more content not included)... Normal [facility] L501.4020on 01-19-2024 TROPONIN-I HS 7 pg/mL Normal 3.0-78.0 [facility] Comment on above: Order Comment: 'TROP ' Serial specimen #1, #2 or #3: 1 Result Comment: Galilea thomas Note: New Test Units and Gender Specific Reference Ranges. For more information see Policy Stat Procedure Spring High Sensitivity Troponin (TNIH) and attachments. Performed By: #### L 300.4310, L300.3900, L100.0100, L501.4020, L500.2500 ####[facility] [id number] [place], [place], [id number] Partial Thromboplast Timeon 01-19-2024 aPTT Coag (Bld) [Time] 28.2 s Normal 24.1-36.2 [facility] Comment on above: Performed By: #### L 300.4310, L300.3900, L100.0100, L501.4020, L500.2500 ####[facility] [id number] [place], [address] Prothrombin Time w/INRon INR Coag (PPP) [Relative time] 1.0 {INR} Normal [facility] Comment on above: Performed By: #### L 300.4310, L300.3900, L100.0100, L501.4020, L500.2500 ####[facility] [id number] [place], [place], [phone] PT Coag (PPP) [Time] 13.2 s Normal 11.7-14.9 [facility] Comment on above: Performed By: #### L 300.4310, L300.3900, L100.0100, L501.4020, L500.2500 ####[facility] [address] [place], [place], [id number] XR ASPIRATION/INJECTION LARG E JOINT RIGHTon 11-19-2023 XR ASPIRATION/INJECTION LARGE JOINT RIGHT EXAMINATION: FLUOROSCOPIC GUIDED RIGHT HIP INTRA-ARTICULAR STEROID INJECTION HISTORY: M16.11 Primary osteoarthritis of right hip HEEL BLACKER(S): Florencio Chambers MD COMPARISON: Right hip steroid injection dated 10/19/2022 SEDATION: None MEDICATIONS: Lidocaine 1% 5 mL SQ; bupivacaine 0.5% 5 mL intra-articular; Kenalog 80 mg intra-articular CONTRAST: Isovue-M 300 2 mL intra-articular FLUOROSCOPY DOSE AND TYPE OR TIME AND EXPOSURES: Fluoro dose in Ka,r mGy: 7.82 FLUOROSCOPY TIME: Fluoro time in minutes: 0.32 COMPLICATIONS: None TECHNIQUE AND FINDINGS: Following discussion of the procedure, risks, benefits, and alternatives, informed written consent was obtained. A timeout was performed to confirm correct patient, procedure, and anatomic site. The patient was placed supine on the fluoroscopy table with the right hip in internal rotation. Administrative Specialist fluoroscopic images of the right hip demonstrate severe right hip osteoarthritis. The superior third of the right femoral head-neck junction was targeted from an anterior approach. The overlying skin was marked, prepped, and draped in usual sterile fashion. Local anesthesia was achieved with 1% lidocaine. Under fluoroscopic guidance a 20-gauge 3.5 spinal needle was advanced into the right hip joint space from an anterior approach. Position of the needle within the joint space was confirmed by injection of 2 mL of contrast. Next, a mixture of Kenalog 80 mg and Bupivacaine 0.5% 5 mL was gently injected into the right hip joint space. The needle was removed and hemostasis was achieved with manual pressure. The patient tolerated procedure well without immediate complications. He was discharged to home in stable condition. IMPRESSION: 1. Severe right hip osteoarthritis. 2. Successful fluoroscopic guided injection of steroid and local anesthetic into the right hip joint space. Workstation ID: [id number] Dictated by: FLORENCIO CHAMBERS on WedNov 19, 2023 4:35:45 PM EDT Transcribed by: FLORENCIO CHAMBERS on WedNov 19, 2023 4:35:45 PM EDT Finalized by: FLORENCIO CHAMBERS on WedNov 19, 2023 4:35:45 PM EDT [facility] Comment on above: Order Comment: Injur y/Trauma or Illness?:Illness/OtherHow long have you had these symptoms (acute/chronic)?:ChronicReason for exam?:Primary osteoarthritis of right hipType of Exam?:OngoingAdditional signs and symptoms?:Primary osteoarthritis of right hipFluoro time in minutes:0.3232 sec fluoroFluoro dose in mGy?:7.82 Family Medicine Office/Clini c Noteon 11-10-2023 Family Medicine Office/Clinic Note Chief Complaint 1 mo f/u HPI Staff 1 mo f/u Pt was evaluated at in [place] 09/16 for swelling of his tongue. Dx with angioedema, Lisinopril d/c. ER started him on Clonidine which was d/c on his 09/26 OV. Patient is here for follow up on hypertension. Amlodipine 5 mg prescribed in September. How often are you checking your blood pressure? When he can at the drug store. What are your average readings? 169/109 last wk, 148/96 today. Do you exercise? no Are you compliant with your medications? Yes Do you have side effects from the medication? No Do you have any of the following symptoms? Chest Pain? No Palpitations? No GAINES/SOB? At times, but he is a smoker. Headache? No Peripheral Edema? No Light Headedness? No Pt is c/o leg cramps mostly at night, but sometimes during the day. He has also had joint pain and fatigue since starting the Amlodipine. The standard range for ages 18 and older is >=18.5 and < 25 kg/m2. Your BMI today was above this range, this falls in the overweight to obese category and there are medical benefits to weight loss. We can offer counselling, referral, and/or medical support in addressing this problem. Your BMI and weight management will be followed at subsequent visits. We strongly recommend to quit tobacco use. Cigarette smoking harms nearly every organ of the body, causes many diseases, and reduces the health of smokers in general. Quitting smoking lowers your risk for smoking-related diseases and can add years to your life. We encourage you to visit www.smokefree.gov access to helpful resources including free telephone support. If you decide on prescription treatment to help you quit, we would be happy to provide these. History of Present Illness Maryse Mak is a 68-year-old male who presents for a 1-month follow-up. He was seen at [facility] on 09/17/2023 for tongue swelling and was diagnosed with angioedema. It was suspected that his lisinopril might be causing this issue, leading to its discontinuation. Instead, he was prescribed clonidine upon discharge. One month ago, he followed up with Dr. Jaimes who discontinued clonidine and started him on amlodipine. He has been taking that for the past month. He reports better compliance with amlodipine compared to clonidine as he frequently missed the second dose of clonidine and would like to avoid medications that have to be taken more than once per day. He has been compliant with amlodipine once daily. He has only checked his blood pressure on the occasions when he has been at the drugstore. This morning his blood pressure was 148/96 mmHg at the drugstore. His reading last week was 169/109 mmHg. He denies any chest pain, palpitations, or swelling. He does mention possible amlodipine side effects including fatigue, body aches, and leg cramps. Review of Systems PHQ Score Initial Depression Screen Score: 0 SCORE All other systems are negative except as stated in the HPI. Physical Exam Vitals & Measurements HR: 81(Peripheral) BP: 131/81 SpO2: 96% HT: 72 in HT: 183 cm WT: 98.6 kg WT: 216.92 lb BMI: 29.44 General: Well developed, well nourished, in no acute distress. Lungs: Normal respiratory effort and clear to auscultation. Cardio: Regular rate and rhythm, normal S1 and S2, no murmur, no rub. Skin: Weiser, moist, well-hydrated, showing no signs of tenting. Extremities: No bilateral lower extremity edema. Neurologic: Grossly normal. Lymph Nodes: No cervical adenopathy, nodes normal. Mental Status: Alert and oriented x3. Normal mood and affect. Assessment/Plan We will review his chronic conditions at his follow-up. 1. HTN (hypertension) (I10: Essential (primary) hypertension) BP is well controlled here today. Unclear if his drugstore readings are accurate or not. Would wonder if they are due to poor calibration and the size of the cuff. Went over electrolyte imbalance and ordered labs today for his side effects. If there is no imbalance, we will consider it a side effect of amlodipine and change to a different calcium channel keiry. We will call with results and go from there. 2. Leg cramps (R25.2: Cramp and spasm) See above. Labs and CMP ordered today. 3. BMI 29.0-29.9,adult (Z68.29: Body mass index [BMI] 29.0-29.9, adult) Discussed health risks of being overweight Encouraged healthy, balanced diet low in sugar, fat, carbs Encouraged exercise regimen 4. Overweight (E66.3: Overweight) BMI is 29.0. ATTESTATION: Documentation services were performed after patient or guardian consented to allow Radha Heather nails to record this visit. MARY rotating equipment specialist and provider reviewed before signing. MARY: Raven Burk Follow-up With When Contact Information Paulette CARBALLO CNP In 1 month [address] [place] [address]- Additional Instructions: Problem List/Past Medical History Ongoing BPH without urinary obstruction CAD in [place] artery COPD mixed type Erecti (more content not included)... Normal [facility] Comment on above: Result Comment: Elec tronically Signed By: Paulette CARBALLO CNP\.br\Date and Time Signed: 11/10/23 07:57 EDT\.br\Electronically Co-Signed By: Rani Flores\.br\Date and Time Co-Signed: 10/28/23 17:49 EDT Ambulatory Visit Summaryon 0 10-28-2023 Ambulatory Visit Summary MARYSE MAK Lucien :1955 Visit Date:10/28/2023 Ambulatory Visit Instructions Your Diagnosis HTN (hypertension) Leg cramps BMI 29.0-29.9,adult Overweight Your Care Team Attending Physician - Paulette CARBALLO CNP Primary Care Physician - Paulette CARBALLO CNP This Is Your Medications List acetaminophen-hydrocod one ([place] 325 mg-7.5 mg oral tablet) Contact prescribing physician if questions or concerns amlodipine (amLODIPine 5 mg Tab) aspirin (aspirin 81 mg Oral EC Tab) fluticasone nasal (Flonase 0.05 mg/inh [place]) gabapentin (gabapentin 800 mg Tab) sildenafil (Viagra 100 mg Tab) tamsulosin (tamsulosin 0.4 mg Cap) Discharge Vitals Heart Rate (Peripheral) 81 Blood Pressure 131/81 Height 183 cm Height 72 in Weight 98.6 kg Weight 216.92 lb BMI 29.44 What to do next Scheduled Follow-Up Appointments 2023 3:00 PM EDT With: Paulette CARBALLO CNP Where: [facility] Normal [facility] CHEMISTRYOrdered By: SYSTEM SYSTEM on 10-28-2023 Albumin [Mass/Vol] 4.2 g/dL Normal 3.3 - 5.0 gm/dL Remisol Chem Albumin/Globulin [Mass ratio] 1.4 {ratio} Normal 1.1 - 2.2 Remisol Chem ALP [Catalytic activity/Vol] 79 [iU]/d Normal 21 - 98 Int._Unit/L Remisol Chem ALT No additional P-5'-P [Catalytic activity/Vol] 18 [iU]/d Normal 6 - 46 Int._Unit/L Remisol Chem Anion gap [Moles/Vol] 9 mmol/L Normal 6 - 16 mEq/L Remisol Chem AST [Catalytic activity/Vol] 20 [iU]/d Normal 5 - 43 Int._Unit/L Remisol Chem Bilirubin [Mass/Vol] 0.5 mg/dL Normal 0.0 - 1 .1 mg/dL Remisol Chem Calcium [Mass/Vol] 9.3 mg/dL Normal 8.9 - 11. 1 mg/dL Remisol Chem Chloride [Moles/Vol] 106 mmol/L Normal 101 - 1 11 mmol/L Remisol Chem CO2 [Moles/Vol] 29 mmol/L Normal 21 - 31 mmol/L Remis ol Chem Creatinine [Mass/Vol] 1.1 mg/dL Normal 0.5 - 1.3 mg/dL Remisol Chem eGFR 74 mL/min/1.73 m2 Normal >=59mL/min /1.7 3 m2 Remisol Chem Globulin (S) [Mass/Vol] 3.0 g/dL Normal 1.4 - 4.0 gm/dL Remisol Chem Glucose [Mass/Vol] 91 mg/dL Normal 55 - 199 mg/dL Re misol Chem Potassium [Moles/Vol] 4.1 mmol/L Normal 3.5 - 5.3 mmol/L Remisol Chem Protein [Mass/Vol] 7.2 g/dL Normal 6.0 - 7.8 gm/dL Remisol Chem Sodium [Moles/Vol] 140 mmol/L Normal 135 - 145 mmol/L Remisol Chem Urea nitrogen [Mass/Vol] 17 mg/dL Normal 5 - 21 mg/dL Remisol Chem Urea nitrogen/Creatinine [Mass ratio] 16 mg/mg Normal 10 - 20 Remisol Chem CMPon 10-28-2023 Albumin [Mass/Vol] 4.2 g/dL Normal 3.3-5.0 [facility] Comment on above: Performed By: #### 2 [id number] #### [facility] [address] [place] [address] Albumin/Globulin (S) [Mass conc ratio] 1.4 Normal 1.1-2.2 [facility] Comment on above: Performed By: #### 2 [id number] #### [facility] [address] [place] [address] ALP [Catalytic activity/Vol] 79 Int._Unit/L Normal 21-98 [facility] Comment on above: Performed By: #### 2 [id number] #### [facility] [address] [place] [address] ALT No additional P-5'-P [Catalytic activity/Vol] 18 Int._Unit/L Normal 6-46 [facility] Comment on above: Performed By: #### 2 [id number] #### [facility] [address] [place] [address] Anion gap [Moles/Vol] 9 mmol/L Normal 6-16 [facility] Comment on above: Performed By: #### 2 [id number] #### [facility] [address] [place] [address] AST [Catalytic activity/Vol] 20 Int._Unit/L Normal 5-43 [facility] Comment on above: Performed By: #### 2 [id number] #### [facility] [address] [place] [address] Bilirubin [Mass/Vol] 0.5 mg/dL Normal 0.0-1.1 [facility] Comment on above: Performed By: #### 2 [id number] #### [facility] [address] [place] [address] Calcium [Mass/Vol] 9.3 mg/dL Normal 8.9-11.1 [facility] Comment on above: Performed By: #### 2 [id number] #### [facility] [address] [place] [address] Chloride [Moles/Vol] 106 mmol/L Normal 101-111 [facility] Comment on above: Performed By: #### 2 [id number] #### [facility] [address] [place] [address] CO2 [Moles/Vol] 29 mmol/L Normal 21-31 [facility] Comment on above: Performed By: #### 2 [id number] #### [facility] [address] [place] [address] Creatinine [Mass/Vol] 1.1 mg/dL Normal 0.5-1.3 [facility] Comment on above: Performed By: #### 2 [id number] #### [facility] [address] [place] [address] Globulin (S) [Mass/Vol] 3.0 g/dL Normal 1.4-4.0 [facility] Comment on above: Performed By: #### 2 [id number] #### [facility] [address] [place] [address] Glucose [Mass/Vol] 91 mg/dL Normal 55-199 [facility] Comment on above: Performed By: #### 2 [id number] #### [facility] [address] [place] [address] Potassium [Moles/Vol] 4.1 mmol/L Normal 3.5-5.3 [facility] Comment on above: Performed By: #### 2 [id number] #### [facility] Laboratory [address] [place] [address] Protein [Mass/Vol] 7.2 g/dL Normal 6.0-7.8 [facility] Comment on above: Performed By: #### 2 [id number] #### [facility] Laboratory [address] [place] [address] Sodium [Moles/Vol] 140 mmol/L Normal 135-145 [facility] Comment on above: Performed By: #### 2 [id number] #### [facility] [address] [place] [address] Urea nitrogen [Mass/Vol] 17 mg/dL Normal 5-21 [facility] Comment on above: Performed By: #### 2 [id number] #### [facility] [address] [place] [address] Urea nitrogen/Creatinine [Mass ratio] 16 No Units Normal 10-20 [facility] Comment on above: Performed By: #### 2 [id number] #### [facility] [address] [place] [address] Family Medicine Office/Clini c Noteon 10-03-2023 Family Medicine Office/Clinic Note Chief Complaint ER Follow Up. HPI Staff Patient here for ER followup Hospital: [facility] ED Visit date: 09/16 Symptoms the patient presented with: Tongue swelling and his throat starting to shut. Current concerns: Needing to get his medications figured out. He states the ER doctor told him it was due to his BP medication. History of Present Illness Maryse presents for an ER follow-up. His tongue was swollen upon awakening on 09/17/2023. He went to the [place] ER. By the time he arrived at the ER, the swelling had worsened, and he was now experiencing difficulty speaking and difficulty breathing. His symptoms were attributed to his lisinopril. The swelling has since subsided. Upon discharge, he was prescribed clonidine, which he has continued to take. He was also prescribed 7 days of prednisone which he completed. He denies any peripheral edema, heart failure, or weakness of the heart, or myocardial infarction. Maryse has a history of coronary artery disease, a 95 percent blockage in his [place] artery, and had bypass surgery. He reports that he now has floating ribs due to the surgery. He was taking losartan remotely in the past. He is not currently taking aspirin due to developing small bruises on his arms. He sees Dr. Murillo for his back pain. Maryse is scheduled for a nerve ablation procedure tomorrow. He previously had injections in his hip, which did not provide relief. His current medication regimen includes tizanidine, [place] 7.5, and gabapentin. He was told that his back pain is due to arthritis. He has undergone 10 back surgeries in the past. Review of Systems PHQ Score Initial Depression Screen Score: 0 SCORE Physical Exam Vitals & Measurements T: 36.8 ?C(Temporal Artery) HR: 86(Peripheral) RR: 18 BP: 123/83 SpO2: 98% HT: 72 in HT: 183 cm WT: 95.3 kg WT: 209.66 lb BMI: 28.46 General: Animated. No distress. His speech is clear. VSS. Weight is down 11 pounds since . He is on a general downward trend since a year ago. Musculoskeletal: There is no distal edema. Assessment/Plan 1. HTN (hypertension) (I10: Essential (primary) hypertension) - He had an ED visit at [place] on 09/17/2023 and this was reviewed. - He had some mild swelling of the tongue reported. - His FELIX inhibitor was stopped. - He was given steroids although these have not been shown to be useful for angioedema, especially in the case of FELIX inhibitors. - Patient was advised to stay off the lisinopril 30 mg, advised he could have recurrence of angioedema again over the next few months. - Stop the clonidine 0.2 mg that the ER gave him. - Start amlodipine 5 mg daily # 90 x 4. - Follow up with Paulette Carballo CNP, in 3 months. 2. Lumbar spondylitis (M46.96: Unspecified inflammatory spondylopathy, lumbar region) - He sees pain management. - He had multiple questions about his appointment with them tomorrow. - They were going to talk to him about RFA. Note he has had multiple surgeries, injections, SCS, etc. none of which were helpful. - He asked about a muscle relaxer; I see he is already on tizanidine. - He needs to discuss that further with pain management. 3. CAD in [place] artery (I25.10: Atherosclerotic heart disease of [place] coronary artery without angina pectoris) - He told the HEEL CUTTER that he was not taking aspirin 81 mg due to minor bruises on his arm. - Advised on the importance of taking that and how about if he took it 3 times a week? he agreed to try. Portions of this record may have been created with voice recognition artificial intelligence software, specifically [employer], [employer] and or [employer]. Substitutions may have occurred due to the inherent limitations of voice recognition and artificial intelligence software. ATTESTATION Documentation services were performed after patient or guardian consented to allow [employer] to record this visit. MARY rotating equipment specialist and provider reviewed before signing. MARY: Any Koenig. 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 Normal [facility] Comment on above: Result Comment: Elec tronically Signed By: Rayo JAIMES MD\.br\Date and Time Signed: 10/03/23 22:43 EDT\.br\Electronically Co-Signed By: Any Koenig\.br\Date and Time Co-Signed: 09/27/23 15:46 EDT ED Note-Physicianon 09-28-19 ED Note-Physician [id number]#[id number] 0TIFF [facility] Ambulatory Visit Summaryon 0 09-27-2023 Ambulatory Visit Summary MARYSE MAK :1955 Visit Date:09/27/2023 Ambulatory Visit Instructions Your Diagnosis HTN (hypertension) Lumbar spondylitis CAD in [place] artery Your Care Team Attending Physician - Rayo JAIMES MD Primary Care Physician - Paulette CARBALLO CNP This Is Your Medications List amlodipine (amLODIPine 5 mg Tab) Contact prescribing physician if questions or concerns aspirin (aspirin 81 mg Oral EC Tab) fluticasone nasal (Flonase 0.05 mg/inh Campbell) gabapentin (gabapentin 800 mg Tab) sildenafil (Viagra 100 mg Tab) tamsulosin (tamsulosin 0.4 mg Cap) [Image Removed: STOP]Stop taking these medications lisinopril (lisinopril 30 mg Tab) Discharge Vitals Temperature (Temporal Artery) 36.8 ?C Heart Rate (Peripheral) 86 Respiratory Rate 18 Blood Pressure 123/83 Height 183 cm Height 72 in Weight 95.3 kg Weight 209.66 lb BMI 28.46 What to do next Scheduled Follow-Up Appointments 2023 2:20 PM EDT With: Paulette CARBALLO CNP Where: [facility] ED Note-Physicianon 09-20-19 ED Note-Physician [id number] 0TIFF [facility] ED Prov Noteon 09-17-2023 ED Prov Note [facility] EMERGENCY DEPARTMENT ATTENDING NOTE: NAME: Maryse Mak CSN: [id number] 68 y.o. PCP: Paulette Carballo CNP History: Chief Complaint: Allergic Reaction (Allergic reaction with unknown source with tongue swelling) HPI: The history was obtained from the patient. Maryse is a 68 y.o. male who presents with a chief complaint of tongue swelling. The patient states that he woke up 45 minutes prior to arrival with left-sided tongue swelling. He states this has never happened before, denies shortness of breath nor any other complaints. ED Course / Medical Decision Makin-year-old male presents with angioedema. Differentials include hereditary versus FELIX inhibitor. He is given fluids Decadron Pepcid and Benadryl. Upon reexamination appears the same perhaps marginal improvement. He requests his home dose of Neurontin and [place]. He is watching television no distress, reexamination the same. I have also ordered Solu-Medrol 125 for further anti-inflammatory effects 2139 swelling has improved. Will continue to monitor 2244 swelling continues to improve. I believe is amenable for discharge. I will provide him instructions to hold off on lisinopril, I will place clonidine prescription instead 0.2 mg twice daily, follow-up with PMD, will provide prescriptions for prednisone taper for 7 days, Singulair 7 days, Pepcid 7 days as well as EpiPen as needed. He is given strict return instructions, he verbalizes understanding and agreement with this plan. Clinical Impression: 1. Angioedema, initial encounter Disposition: ED Disposition ED Disposition Discharge Condition Stable Comment Maryse B Mak discharged to home/self care in stable condition. New Prescriptions EPINEPHrine (EPIPEN) 0.3 mg/0.3 mL AtIn Inject 0.3 mL (0.3 mg total) into the mid-thigh as needed for severe allergic reaction. . famotidine (PEPCID) 20 MG tablet Take 1 (one) tablet (20 mg total) by mouth 2 (two) times a day for 7 days . montelukast (SINGULAIR) 10 mg tablet Take 1 (one) tablet (10 mg total) by mouth nightly for 7 days . predniSONE (DELTASONE) 10 MG tablet Take 5 (five) tablets (50 mg total) by mouth daily for 2 days, THEN 4 (four) tablets (40 mg total) daily for 1 day, THEN 3 (three) tablets (30 mg total) daily for 1 day, THEN 2 (two) tablets (20 mg total) daily for 1 day, THEN 1 (one) tablet (10 mg total) daily for 1 day, THEN 1 (one) tablet (10 mg total) daily for 1 day. cloNIDine HCL (CATAPRES) 0.2 MG tablet Take 1 (one) tablet (0.2 mg total) by mouth 2 (two) times a day . Discontinued Medications Disp Refills Start End lisinopriL (PRINIVIL,ZESTRIL) 30 MG tablet -- -- 07/29/2021 09/17/2023 Class: Historical Med Reason for Discontinue: Side effects PMHx: Past Medical History: Diagnosis Date Alcohol abuse 06/19/2019 Arthritis Chronic back pain Clotting disorder (HCC) DVT Cocaine abuse (HCC) 10/28/2017 Coronary artery disease moderate stenosis of LAD and mild plaque in other vessels Homeless 06/19/2019 Hyperlipidemia Hypertension Tobacco dependence 04/29/2020 PMSx: Past Surgical History: Procedure Laterality Date BACK SURGERY BRING BACK OPEN HEART N/A 08/19/2022 Procedure: STERNAL WOUND EXPLORATION; Surgeon: Wood Eng MD; Location: Main OR; Service: Cardiothoracic CABG W/ RADIAL ARTERY HARVEST N/A 11/20/2021 Procedure: CORONARY ARTERY BYPASS GRAFT X2 AND LEFT AND RIGHT INTERNAL MAMMARY ARTERY GRAFTS; Surgeon: Wood Eng MD; Location: Main OR; Service: Cardiothoracic CARDIAC CATHETERIZATION N/A 11/07/2021 Procedure: Coronary Angiogram; Surgeon: Minoo Grimm MD; Location: [facility]; Service: Cardiovascular CV IR INTERVENTIONAL RADIOLOGY N/A 09/01/2022 Procedure: VR Aspiration Sternal seroma; Surgeon: Florencio Chambers MD; Location: IR LAB; Service: Interventional Radiology HC LEFT HEART CATH N/A 11/07/2021 Procedure: Left Heart Cath; Surgeon: Minoo Grimm MD; Location: [facility]; Service: Cardiovascular left arm leg sx right and left blood clots Bilateral 2009 in [facility] SHOULDER SURGERY STERNAL WIRING N/A 08/06/2022 Procedure: STERNAL INTERNAL FIXATION WITH PLATING AND SCREWS; Surgeon: Wood Eng MD; Location: Main OR; Service: Cardiothoracic FAM. Hx: Family History Problem Relation Age of Onset Heart disease Father Heart attack Father Heart attack Maternal Uncle Heart disease Maternal Uncle SOC. Hx: Social History Socioeconomic History Marital status: Single Tobacco Use Smoking status: Every Day Packs/day: 0.50 Years: 45.00 Additional pack years: 0.00 Total pack years: 22.50 Types: Cigarettes Smokeless tobacco: Never Vaping Use Vaping Use: Never used Substance and Sexual Activity Alcohol use: Not Currently Drug use: Not Currently Types: Cocaine Sexual activity: Not Currently control/protection: N (more content not included)... [facility] Cerv Spine 2 or 3 Viewson Cerv Spine 2 or 3 Views [facility] Imaging Services [address] [place] [id number] Cerv Spine 2 or 3 Views MR#: [id number] Acct: [id number] Name: MARYSE MAK Rep #: [id number] : 1955 M 68 From: Abigail Oswald MD PCP: PAULETTE CARBALLO Status: JV HERNANDEZ Study: Cerv Spine 2 or 3 Views Date of Exam: 08/02/23 Exam# [id number] Ordering Dr: Irene Murillo MD [id number] STUDY: X-RAY - CERVICAL SPINE REASON FOR EXAM: Male, 68 years old. Pain. TECHNIQUE: 3 view(s) of the cervical spine were obtained on 4 images. COMPARISON: None FINDINGS: Osteopenia. Normal anterior atlantoaxial articulation. Normal odontoid process. Reversal of the normal lordotic curve, likely positional. Diffuse moderate to marked uncovertebral and facet sclerosis. Intervertebral disc space narrowing at C4-5, C5-6, C6-7 and C7-T1. Osteophyte formation most marked at C4-5, C5-6 and C6-7. Bilateral minimal carotid calcification. Ossification of the superficial tissues of the ligamentum nuchae. RAD/Cerv Spine 2 or 3 Views IMPRESSION: Osteopenia with moderate to marked lower cervical spondylosis. Electronically Signed: Abigail Oswald MD at 12:38 EDT Reading Location ID and State: [address] [place] [address] , Service support , CC: Dr. Irene Murillo MD; PAULETTE CARBALLO Dental Ceramist Assistant: Signed Normal [facility] Lumbar Spine 2 or 3 Viewson 08-02-2023 Lumbar Spine 2 or 3 Views [facility] Imaging Services [address] [place] [address] Lumbar Spine 2 or 3 Views MR#: [id number] Acct: [id number] Name: MARYSE MAK Rep #: [id number] : 1955 68 From: Abigail Oswald MD PCP: PAULETTE CARBALLO Status: REG CLI Study: Lumbar Spine 2 or 3 Views Date of Exam: Exam# [id number] Ordering Dr: Irene Murillo MD [id number] STUDY: X-RAY - LUMBAR SPINE REASON FOR EXAM: Male, 68 years old. Low back pain. TECHNIQUE: 2 upright view(s) of the lumbar spine were obtained. COMPARISON: None FINDINGS: Osteopenia. Normal lumbar lordosis. No substantial scoliosis. Normal vertebral alignment. Diffuse moderate lower thoracic and lumbosacral facet sclerosis. Posterior fusion at L2-3 with intervertebral disc prosthesis and no complications. Diffuse moderate to marked intervertebral disc space narrowing with osteophyte formation. Marked vascular calcification. RAD/Lumbar Spine 2 or 3 Views IMPRESSION: Osteopenia with uncomplicated postfusion at L2-3 and diffuse moderate to marked lower thoracic and lumbosacral spondylosis. Electronically Signed: Abigail Oswald MD at 12:06 EDT , CC: Dr. Irene Murillo MD; PAULETTE CARBALLO Dental Ceramist Assistant: Signed Normal [facility] ED Note-Physicianon 06-28-19 ED Note-Physician [id number] [facility] ED Note-Physicianon 06-24-19 24 ED Note-Physician [id number]#[id number] 0TIFF [facility] Ambulatory Visit Summaryon 1 07-06-2022 Ambulatory Visit Summary MARYSE MAK :1955 Visit Date:05/05/2023 Ambulatory Visit Instructions Your Diagnosis CAD in [place] artery COPD mixed type HTN (hypertension) History of alcoholism Lumbar spondylitis Major depressive disorder, single episode, severe History of substance abuse BPH without urinary obstruction BMI 30.0-30.9,adult Morbid obesity Your Care Team Attending Physician - Vanessa Mcrae DO Primary Care Physician - Paulette CARBALLO CNP This Is Your Medications List aspirin (aspirin 81 mg Oral EC Tab) fluticasone nasal (Flonase 0.05 mg/inh Campbell) lisinopril (lisinopril 30 mg Tab) sildenafil (Viagra 100 mg Tab) tamsulosin (tamsulosin 0.4 mg Cap) [Image Removed: STOP]Stop taking these medications gabapentin (gabapentin 800 mg Tab) Discharge Vitals Heart Rate (Peripheral) 91 Blood Pressure 133/81 Height 183 cm Height 72 in Weight 100.5 kg Weight 221.1 lb BMI 30.01 What to do next Scheduled Follow-Up Appointments Wednesday 10:40 AM EST With: Paulette CARBALLO CNP Where: [facility] Normal [facility] Family Medicine Office/Clini c Noteon 05-05-2023 Family Medicine Office/Clinic Note Chief Complaint sore on bottom HPI Staff Here today for c/o sore on bottom Pt. states it is around butt hole area, started about a week ago, thought it was a hemorrhoid. It's just uncomfortable no itching or burning. The standard range for ages 18 and older is >=18.5 and < 25 kg/m2. Your BMI today was above this range, this falls in the overweight to obese category and there are medical benefits to weight loss. We can offer counselling, referral, and/or medical support in addressing this problem. Your BMI and weight management will be followed at subsequent visits. We strongly recommend to quit tobacco use. Cigarette smoking harms nearly every organ of the body, causes many diseases, and reduces the health of smokers in general. Quitting smoking lowers your risk for smoking-related diseases and can add years to your life. We encourage you to visit www.smokefree.gov access to helpful resources including free telephone support. If you decide on prescription treatment to help you quit, we would be happy to provide these. History of Present Illness The patient is a 68 year-old male presents for evaluation of a sore in his buttocks. He has hemorrhoids that has been sore and itching for approximately 1 week. It has gotten worse and has formed a clot now. It is stuck outside the rectum. He denies having hemorrhoids in the past. He does not read and sit on a hard concrete toilet. He has had COVID-19 in the past. He declines receiving COVID-19 vaccination. He denies any family history of hemorrhoids. His last colonoscopy was approximately 6 to 11 years ago. Review of Systems PHQ Score Initial Depression Screen Score: 0 SCORE Rectal: Positive for soreness and itching. Physical Exam Vitals & Measurements HR: 91(Peripheral) BP: 133/81 SpO2: 95% HT: 72 in HT: 183 cm WT: 100.5 kg WT: 221.1 lb BMI: 30.01 General: He is clean. He is well kept. Rectal: On the buttocks, he actually describes right at the anal opening. There is a small hemorrhoid protruding out, it is slightly loose color. It is about pea size. The rest of the rectal exam is normal. No other lesions or infection sources are seen Assessment/Plan 1. CAD in [place] artery (I25.10: Atherosclerotic heart disease of [place] coronary artery without angina pectoris) stable to cardiology 2. COPD mixed type (J44.9: Chronic obstructive pulmonary disease, unspecified) recommend no smoking 3. HTN (hypertension) (I10: Essential (primary) hypertension) controlled not change monitor 4. History of alcoholism (F10.21: Alcohol dependence, in remission) resolved 5. Lumbar spondylitis (M46.96: Unspecified inflammatory spondylopathy, lumbar region) long history gabapentin to be filled with pcp recommend pill count since had family steal it. 6. Major depressive disorder, single episode, severe (F32.2: Major depressive disorder, single episode, severe without psychotic features) controlled no change 7. History of substance abuse (F19.11: Other psychoactive substance abuse, in remission) states he has been tested for hep a b and c and hiv and clean over year. has ankle bracklet 8. BPH without urinary obstruction (N40.0: Benign prostatic hyperplasia without lower urinary tract symptoms) able urinate normally 9. BMI 30.0-30.9,adult (Z68.30: Body mass index [BMI] 30.0-30.9, adult) stable diet 10. Morbid obesity (E66.01: Morbid (severe) obesity due to excess calories) Obesity recommend low fat, low carbo diet. 2000 calorie diet daily. Recommend two small meals and one average meal. Avoid eating after 6 pm. Avoid fast food, sugary drinks, artificial sugars, packaged instant food, candy , cakes and cookies . Shop for all natural food products. Exercise at least 3 days week. Avoid sedentary life style. Increase water intake. Do daily naked weights. Limit stressful life style. Check chol yearly. Hemorrhoids. I recommend he get some Proctofoam, Tucks, maybe a cool sitz bath. I explained to him how not to do a lot of straining on the toilet or sitting on concrete because that could just worsen it. If he gets over a quarter of bleeding, I recommend a colonoscopy to make sure that there is not something up higher causing the pressure that is causing the hemorrhoid and a increased fiber diet, keep his stools soft, but as long as it resolves on its own and then he does not have any problems with it, he should do fine. Health maintenance. I recommend he get all his adult vaccinations. He is not a big fan of vaccinations at this time, but if he does change his mind, we always are open. I recommended that he get his preventative PSA, cholesterol, CBC, CMP screening, and a colonoscopy screening every 10 years. Again, he is aware if he does change his mind, he is welcome to have him come in and get that done. Portions of this record may have been created with voice recognition artificial intelligence software, specifically [employer], [employer] and or [employer] (more content not included)... Normal [facility] Comment on above: Result Comment: Elec tronically Signed By: Vanessa Mcrae DO\.br\Date and Time Signed: 05/05/23 13:38 EST\.br\Electronically Co-Signed By: Chace Sinclair\.br\Date and Time Co-Signed: 05/05/23 13:34 EST\.br\Electronically Co-Signed By: Vanessa Mcrae DO\.br\Date and Time Co-Signed: 05/05/23 13:41 EST Basic Metabolic Profon 04-21 Anion gap [Moles/Vol] 7 mmol/L Low - [facility] Comment on above: Performed By: #### B JOB PRESTON #### [facility] [address] [place] [address] Roll Panner: Bunny Reilly DO Calcium [Mass/Vol] 9.3 mg/dL Normal 8.6-10.4 [facility] Comment on above: Performed By: #### B MOHAN, XLAV #### [facility] [address] [place] [address] Roll Panner: Bunny Reilly DO Chloride [Moles/Vol] 105 mmol/L Normal 98-107 [facility] Comment on above: Performed By: #### B MOHAN, XLAV #### [facility] [address] [facility] [place] [address] Roll Panner: Bunny Reilly DO CO2 [Moles/Vol] 31 mmol/L Normal 20-31 [facility] Comment on above: Performed By: #### B MOHAN, XLAV #### [facility] [address] [facility] [place] [address] Roll Panner: Bunny Reilly DO Creatinine [Mass/Vol] 1.0 mg/dL Normal 0.7-1.2 [facility] Comment on above: Performed By: #### B MOHAN, XLAV #### [facility] [address] [facility] [place] [address] Roll Panner: Bunny Reilly DO GFR/1.73 sq M.predicted among non-blacks MDRD (S/P/Bld) [Vol rate/Area] mL/min/{1.73_m2} Normal >60 [facility] Comment on above: Result Comment: These results are not intended for use in patients <18 years of age. eGFR results are calculated without a race factor using the 2020 CKD-EPI equation. Careful clinical correlation is recommended, particularly when comparing to results calculated using previous equations. The CKD-EPI equation is less accurate in patients with extremes of muscle mass, extra-renal metabolism of creatine, excessive creatine ingestion, or following therapy that affects renal tubular secretion. Performed By: #### B MOHAN, XLAV #### [facility] [address] [facility] [place] [address] Roll Panner: Bunny Reilly DO Glucose [Mass/Vol] 106 mg/dL High 70-99 [facility] Comment on above: Performed By: #### B MOHAN, XLAV #### [facility] [address] [facility] [place] [address] Roll Panner: Bunny Reilly DO Potassium [Moles/Vol] 4.5 mmol/L Normal 3.7-5.3 [facility] Comment on above: Performed By: #### B MOHAN, XLAV #### [facility] [address] [place] [address] Roll Panner: Bunny Reilly DO Sodium [Moles/Vol] 143 mmol/L Normal 135-144 [facility] Comment on above: Performed By: #### B MOHAN, XLAV #### [facility] [place] [address] Roll Panner: Bunny Reilly DO Urea nitrogen [Mass/Vol] 9 mg/dL Normal 8-23 [facility] Comment on above: Performed By: #### B MOHAN, XLAV #### [facility] [place] [address] Roll Panner: Bunny Reilly DO Extra Lavender Tubeon 2022 Extra Lavender Tube Normal [facility] Comment on above: Performed By: #### B MOHAN, XLAV #### [facility] [place] [address] Roll Panner: Bunny Reilyl DO RAD - MISCon 04-20-2023 RAD - MISC [id number] 20 [id number] [facility] Extra Lavender Tubeon 2022 Extra Lavender Tube Normal [facility] Comment on above: Performed By: #### X LILIAN SMITHI #### [facility] [address] [place] [address] Roll Panner: Bunny Reilly DO Troponinon 04-19-2023 Troponin, High Sens 14 ng/L Normal 0-22 [facility] Comment on above: Result Comment: High Sensitivity Troponin values cannot be compared with other Troponin methodologies. Performed By: #### X LAV, TROPI #### [facility] [address] [place] [address] Roll Panner: Bunny Reilly DO XR CHEST PORTABLEon 04-19-20 XR CHEST PORTABLE EXAMINATION: ONE XRAY VIEW OF THE CHEST 04/19/2023 2:45 pm COMPARISON: January 28, 2023 HISTORY: ORDERING SYSTEM PROVIDED HISTORY: cp TECHNOLOGIST PROVIDED HISTORY: cp Reason for Exam: chronic chest pain FINDINGS: The heart is not enlarged. No pulmonary venous congestion or edema. No convincing lung consolidation or infiltrate. No sizable pleural effusion. No pneumothorax. IMPRESSION: No acute cardiopulmonary process Interpreted by: Alberto Angulo MD Signed by: Alberto Angulo MD 04/19/23 Final result Normal [facility] Acetaminophenon 04-18-2023 Acetaminophen [Mass/Vol] ug/mL Low 10-30 [facility] Comment on above: Performed By: #### T ROPI, CDP, ALCB, ACET, SALI, BMP ####[facility] Nma[address] [place], [place] [id number] lab Director: Benigno Prakash MD Basic Metabolic Profon 04-18 Anion gap [Moles/Vol] 15 mmol/L Normal 9-17 [facility] Comment on above: Performed By: #### T ROPI, CDP, ALCB, ACET, SALI, BMP ####[facility] Wxp6832 [place], [place] [phone] lab Director: Benigno Prakash MD Calcium [Mass/Vol] 9.1 mg/dL Normal 8.6-10.4 [facility] Comment on above: Performed By: #### T ROPI, CDP, ALCB, ACET, SALI, BMP ####[facility] Uoi1485 [place] [address] lab Director: Benigno Prakash MD Chloride [Moles/Vol] 97 mmol/L Low 98-107 [facility] Comment on above: Performed By: #### T ROPI, CDP, ALCB, ACET, SALI, BMP ####[facility] Qlh3508 [place] [address] lab Director: Benigno Prakash MD CO2 [Moles/Vol] 21 mmol/L Normal 20-31 [facility] Comment on above: Performed By: #### T ROPI, CDP, ALCB, ACET, SALI, BMP ####[facility] Muf3275 [place] [address] lab Director: Benigno Prakash MD Creatinine [Mass/Vol] 1.2 mg/dL Normal 0.7-1.2 [facility] Comment on above: Performed By: #### T ROPI, CDP, ALCB, ACET, SALI, BMP ####[facility] Smi2435 [place] [address] lab Director: Benigno Prakash MD GFR/1.73 sq M.predicted among non-blacks MDRD (S/P/Bld) [Vol rate/Area] mL/min/{1.73_m2} Normal >60 [facility] Comment on above: Result Comment: These results are not intended for use in patients <18 years of age. eGFR results are calculated without a race factor using the 2020 CKD-EPI equation. Careful clinical correlation is recommended, particularly when comparing to results calculated using previous equations. The CKD-EPI equation is less accurate in patients with extremes of muscle mass, extra-renal metabolism of creatine, excessive creatine ingestion, or following therapy that affects renal tubular secretion. Performed By: #### T ROPI, CDP, ALCB, ACET, SALI, BMP ####[facility] Kzo2793 [place] [address] lab Director: Benigno Prakash MD Glucose [Mass/Vol] 138 mg/dL High 70-99 [facility] Comment on above: Performed By: #### T ROPI, CDP, ALCB, ACET, SALI, BMP ####[facility] [address] [place] [id number] Lab Director: Benigno Prakash MD Potassium [Moles/Vol] 3.5 mmol/L Low 3.7-5.3 [facility] Comment on above: Performed By: #### T ROPI, CDP, ALCB, ACET, SALI, BMP ####[facility] Fym[address] [place] [address] lab Director: Benigno Prakash MD Sodium [Moles/Vol] 133 mmol/L Low 135-144 [facility] Comment on above: Performed By: #### T ROPI, CDP, ALCB, ACET, SALI, BMP ####[facility] Xit4969 [place] [address] lab Director: Benigno Prakash MD Urea nitrogen [Mass/Vol] 24 mg/dL High 8-23 [facility] Comment on above: Performed By: #### T ROPI, CDP, ALCB, ACET, SALI, BMP ####[facility] Oah[address] [place] [address] Lab Director: Benigno Prakash MD CBC with Diffon 04-18-2023 Abs. Basophil 0.03 k/uL Normal 0.00-0.20 [facility] Comment on above: Performed By: #### T ROPI, CDP, ALCB, ACET, SALI, BMP ####[facility] [address]nr[address] [place] [phone] Lab Director: Benigno Prakash MD Abs.Imm.Granulocyte 0.03 k/uL Normal 0.00-0.30 [facility] Comment on above: Performed By: #### T ROPI, CDP, ALCB, ACET, SALI, BMP ####[facility] Env[address]15 [place], [place] [id number] Lab Director: Benigno Prakash MD Abs.Neutrophil (Seg) 12.90 k/uL High 2.1-6.5 [facility] Comment on above: Performed By: #### T ROPI, CDP, ALCB, ACET, SALI, BMP ####[facility] Xjb9236 [place] [address] Lab Director: Benigno Prakash MD Basophils/100 WBC (Bld) 0 % Normal 0-2 [facility] Comment on above: Performed By: #### T ROPI, CDP, ALCB, ACET, SALI, BMP ####[facility] Hvm8849 [place] [address] Lab Director: Benigno Prakash MD Eosinophils (Bld) [#/Vol] 0.13 10*3/uL Normal 0.00-0.40 [facility] Comment on above: Performed By: #### T ROPI, CDP, ALCB, ACET, SALI, BMP ####[facility] [address]qw[address] [place] [id number] Lab Director: Benigno Prakash MD Eosinophils/100 WBC (Bld) 1 % Normal 0-5 [facility] Comment on above: Performed By: #### T ROPI, CDP, ALCB, ACET, SALI, BMP ####[facility] [address] [place] [phone] Lab Director: Benigno Prakash MD Erythrocyte distribution width (RBC) [Ratio] 14.7 % Normal 12.1-15.2 [facility] Comment on above: Performed By: #### T ROPI, CDP, ALCB, ACET, SALI, BMP ####[facility] Thz[address] [place] [phone] Lab Director: Benigno Prakash MD Hematocrit (Bld) [Volume fraction] 44.0 % Normal 41.0-53.0 [facility] Comment on above: Performed By: #### T ROPI, CDP, ALCB, ACET, SALI, BMP ####[facility] [address] [place] [address] Lab Director: Benigno Prakash MD Hemoglobin (Bld) [Mass/Vol] 14.9 g/dL Normal 13.5-17.5 [facility] Comment on above: Performed By: #### T ROPI, CDP, ALCB, ACET, SALI, BMP ####[facility] Gsx2136 [place] [address] Lab Director: Benigno Prakash MD Immature granulocytes/100 WBC (Bld) 0 % Normal 0-5 [facility] Comment on above: Performed By: #### T ROPI, CDP, ALCB, ACET, SALI, BMP ####[facility] Mlf7653 [place] [address] Lab Director: Benigno Prakash MD Lymphocytes (Bld) [#/Vol] 1.25 10*3/uL Normal 1.00-4.80 [facility] Comment on above: Performed By: #### T ROPI, CDP, ALCB, ACET, SALI, BMP ####[facility] Pre[address] [place] [address] Lab Director: Benigno Prakash MD Lymphocytes/100 WBC (Bld) 8 % Low 13-44 [facility] Comment on above: Performed By: #### T ROPI, CDP, ALCB, ACET, SALI, BMP ####[facility] Xca5905 [place] [address] Lab Director: Benigno Prakash MD MCH (RBC) [Entitic mass] 29.6 pg Normal 26.0-34.0 [facility] Comment on above: Performed By: #### T ROPI, CDP, ALCB, ACET, SALI, BMP ####[facility] [address] [place] [address] Lab Director: Benigno Prakash MD MCHC (RBC) [Mass/Vol] 33.9 g/dL Normal 31.0-37.0 [facility] Comment on above: Performed By: #### T ROPI, CDP, ALCB, ACET, SALI, BMP ####[facility] Ufo[address] [place], [place] [phone] Director: Benigno Prakash MD MCV (RBC) [Entitic vol] 87.3 fL Normal 80.0-100.0 [facility] Comment on above: Performed By: #### T ROPI, CDP, ALCB, ACET, SALI, BMP ####[facility] [address] [place] [address] Lab Director: Benigno Prakash MD Monocytes (Bld) [#/Vol] 1.10 10*3/uL High 0.00-1.00 [facility] Comment on above: Performed By: #### T ROPI, CDP, ALCB, ACET, SALI, BMP ####[facility] Kco6843 [facility] [place] [address] Lab Director: Benigno Prakash MD Monocytes/100 WBC (Bld) 7 % Normal 5-9 [facility] Comment on above: Performed By: #### T ROPI, CDP, ALCB, ACET, SALI, BMP ####[facility] [address] [place], [place] [phone] Director: Benigno Prakash MD Neutrophil (Seg) 84 % High 39-75 [facility] Comment on above: Performed By: #### T ROPI, CDP, ALCB, ACET, SALI, BMP ####[facility] Ijn0586 [facility] [place] [address] Lab Director: Benigno Prakash MD Platelet mean volume (Bld) [Entitic vol] 10.8 fL Normal 6.0-12.0 [facility] Comment on above: Performed By: #### T ROPI, CDP, ALCB, ACET, SALI, BMP ####[facility] Jwf[address] [place] [address] Lab Director: Benigno Prakash MD Platelets (Bld) [#/Vol] 221 10*3/uL Normal 140-450 [facility] Comment on above: Performed By: #### T ROPI, CDP, ALCB, ACET, SALI, BMP ####[facility] Fvu[address] RdC[facility] [place] [address] Lab Director: Benigno Prakash MD RBC (Bld) [#/Vol] 5.04 10*6/uL Normal 4.50-5.90 [facility] Comment on above: Performed By: #### T ROPI, CDP, ALCB, ACET, SALI, BMP ####[facility] Qyi27[address] [place], [place] [phone] Director: Benigno Prakash MD WBC (Bld) [#/Vol] 15.4 10*3/uL High 3.5-11.0 [facility] Comment on above: Performed By: #### T ROPI, CDP, ALCB, ACET, SALI, BMP ####[facility] [address]co[address] [place] [address] Lab Director: Benigno Prakash MD Drug Scr, Abuse, Uron 2022 Amphetamine(s),Ur Negative Normal NEG [facility] Comment on above: Result Comment: (Positive cutoff 1000 ng/mL) Performed By: #### D AU #### [facility] [address] [place] [address] Roll Panner: Benigno Prakash MD Barbiturate(s),Ur Negative Normal NEG [facility] Comment on above: Result Comment: (Positive cutoff 200 ng/mL) Performed By: #### D AU #### [facility] [address] [place] [address] Roll Panner: Benigno Prakash MD Benzodiazepine(s) Negative Normal NEG [facility] Comment on above: Result Comment: (Positive cutoff 200 ng/mL) Performed By: #### D AU #### [facility] [address] [place] [address] Roll Panner: Benigno Prakash MD Cannabinoid(s),Ur Negative Normal NEG [facility] Comment on above: Result Comment: (Positive cutoff 50 ng/mL) Performed By: #### D AU #### [facility] [address] [place] [address] Roll Panner: Benigno Prakash MD Cocaine Metabolite Positive Abnormal NEG [facility] Comment on above: Result Comment: (Positive cutoff 300 ng/mL) Performed By: #### D AU #### [facility] [address] [place] [address] Roll Panner: Benigno Prakash MD Fentanyl, Urine Negative Normal NEG [facility] Comment on above: Result Comment: (Positive cutoff 5 ng/ml) Performed By: #### D AU #### [facility] [address] [place] [address] Roll Panner: Benigno Prakash MD Interpretive Info Assay provides medic al screening only. The absence of expected drug(s) and/or Normal [facility] Comment on above: Result Comment: meta bolite(s) may indicate diluted or adulterated urine, limitations of testing or timing of collection. Testing for legal purposes should be confirmed by another method. To request confirmation of test result, please call the lab within 7 days of sample submission. Performed By: #### D AU #### [facility] [address] [place] [address] Roll Panner: Benigno Prakash MD Methadone Ql (U) Negative Normal NEG [facility] Comment on above: Result Comment: (Positive cutoff 300 ng/mL) Performed By: #### D AU #### [facility] [address] [place] [address] Roll Panner: Benigno Prakash MD Opiate(s), Ur Negative Normal NEG [facility] Comment on above: Result Comment: (Positive cutoff 300 ng/mL) Performed By: #### D AU #### [facility] [address] [place] [address] Roll Panner: Benigno Prakash MD Oxycodone, Urine Negative Normal NEG [facility] Comment on above: Result Comment: (Positive cutoff 100 ng/mL) Performed By: #### D AU #### [facility] [address] [place] [address] Roll Panner: Benigno Prakash MD Phencyclidine, Ur Negative Normal NEG [facility] Comment on above: Result Comment: (Positive cutoff 25 ng/mL) Performed By: #### D AU #### [facility] [address] [place] [address] Roll Panner: Benigno Prakash MD Ethanol Alcoholon 04-18-2023 Ethanol [Mass/Vol] mg/dL Normal <10 [facility] Comment on above: Performed By: #### T REID, CDP, ALCB, ACET, SALI, BMP ####[facility] Cyb[address]677 [place] [phone] Director: Benigno Prakash MD Ethanol percent <0.010 Normal [facility] Comment on above: Performed By: #### T REID, CDP, ALCB, ACET, SALI, BMP ####[facility] Gcn2891 [place] [phone] Director: Benigno Prakash MD [id number] 04-18-2023 SARS-CoV-2 (COVID-19) RNA IGOR+probe Ql (Unsp spec) Not detected Normal NOTDET [facility] Comment on above: Result Comment: Rapid NAAT: The specimen is NEGATIVE for SARS-CoV-2, the novel coronavirus associated with COVID-19. The ID NOW COVID-19 assay is designed to detect the virus that causes COVID-19 in patients with signs and symptoms of infection who are suspected of COVID-19. An individual without symptoms of COVID-19 and who is not shedding SARS-CoV-2 virus would expect to have a negative (not detected) result in this assay. Negative results should be treated as presumptive and, if inconsistent with clinical signs and symptoms or necessary for patient management, should be tested with an alternative molecular assay. Negative results do not preclude SARS-CoV-2 infection and should not be used as the sole basis for patient management decisions. Fact sheet for Healthcare Providers: https://www.fda.gov/media/654015/download Fact sheet for Patients: https://www.fda.gov/media/210627/download Methodology: Isothermal Nucleic Acid Amplification Performed By: #### C OVRB #### [facility] [address] [place] [address] Roll Panner: Benigno Prakash MD Salicylateon 04-18-2023 Salicylate <1.0 Low 3-10 [facility] Comment on above: Performed By: #### T TRAVIS MATHEWS, ALCB, ACET, SALI, BMP ####[facility] [address]lo[address] [place] [address] Lab Director: Benigno Prakash MD Troponinon 04-18-2023 Troponin, High Sens 21 ng/L Normal 0-22 [facility] Comment on above: Result Comment: High Sensitivity Troponin values cannot be compared with other Troponin methodologies. Performed By: #### T TRAVIS MATHEWS, ALCB, ACET, SALI, BMP ####[facility] Nmw9028 [place] [address] Lab Director: Benigno Prakash MD Formson 02-15-2023 Forms [id number] 00 [id number] 0CD:[address] [facility] Basic Metabolic Profon 01-28 Anion gap [Moles/Vol] 12 mmol/L Normal 9-17 [facility] Comment on above: Performed By: #### C LILIAN CARIASI, BMP ####[facility] Ywv[address] [place] [address] Lab Director: Benigno Prakash MD BUN/CRE Ratio 12 Normal 9-20 [facility] Comment on above: Performed By: #### C ARETHA TROPI, BMP ####[facility] [address] [place], [place] [phone] Director: Benigno Prakash MD Calcium [Mass/Vol] 8.6 mg/dL Normal 8.6-10.4 [facility] Comment on above: Performed By: #### C ARETHA TROPI, BMP ####[facility] [address]fp[address] [place] [address] Lab Director: Benigno Prakash MD Chloride [Moles/Vol] 92 mmol/L Low 98-107 [facility] Comment on above: Performed By: #### C ARETHA TROPI, BMP ####[facility] [address] [place], [place] [phone] Director: Benigno Prakash MD CO2 [Moles/Vol] 25 mmol/L Normal 20-31 [facility] Comment on above: Performed By: #### C ARETHA TROPI, BMP ####[facility] Svn[address] [place], [place] [phone] Director: Benigno Prakash MD Creatinine [Mass/Vol] 1.0 mg/dL Normal 0.7-1.2 [facility] Comment on above: Performed By: #### C DP TROPI, BMP ####[facility] [address] [place], [place] [phone] Director: Benigno Prakash MD GFR/1.73 sq M.predicted among non-blacks MDRD (S/P/Bld) [Vol rate/Area] mL/min/{1.73_m2} Normal >60 [facility] Comment on above: Result Comment: These results are not intended for use in patients <18 years of age. eGFR results are calculated without a race factor using the 2020 CKD-EPI equation. Careful clinical correlation is recommended, particularly when comparing to results calculated using previous equations. The CKD-EPI equation is less accurate in patients with extremes of muscle mass, extra-renal metabolism of creatine, excessive creatine ingestion, or following therapy that affects renal tubular secretion. Performed By: #### C AREHTA TROPI, BMP ####[facility] Zon3383 [place] [address] Lab Director: Benigno Prakash MD Glucose [Mass/Vol] 107 mg/dL High 70-99 [facility] Comment on above: Performed By: #### C ARETHA TROPI, BMP ####[facility] Mhe2651 [place], [place] [phone] Director: Benigno Prakash MD Potassium [Moles/Vol] 3.4 mmol/L Low 3.7-5.3 [facility] Comment on above: Performed By: #### C ARETHA TROPI, BMP ####[facility] Enz0344 [place] [address] Lab Director: Benigno Prakash MD Sodium [Moles/Vol] 129 mmol/L Low 135-144 [facility] Comment on above: Performed By: #### C ARETHA TROPI, BMP ####[facility] Jbv5963 [place] [address] Lab Director: Benigno Prakash MD Urea nitrogen [Mass/Vol] 12 mg/dL Normal 8-23 [facility] Comment on above: Performed By: #### C ARETHA TROPI, BMP ####[facility] Pmo2823 [place] [address] Lab Director: Benigno Prakash MD CBC with Diffon 01-28-2023 Abs. Bands 0.10 k/uL Normal 0.0-1.0 [facility] Comment on above: Performed By: #### C ARIANNA CARIAS, BMP ####[facility] Nxl9975 [facility] [place] [address] Lab Director: Benigno Prakash MD Abs. Basophil Normal 0.0-0.2 [facility] Comment on above: Performed By: #### C LILIAN CARIASI, BMP ####[facility] Puv2597 [facility] [place] [address] Lab Director: Benigno Prakash MD Abs. Eosinophil Normal 0.0-0.4 [facility] Comment on above: Performed By: #### C LILIAN CARIASI, BMP ####[facility] Jbk6269 [facility] [place] [address] Lab Director: Benigno Prakash MD Abs.Imm.Granulocyte Normal 0.00-0.30 [facility] Comment on above: Performed By: #### C LILIAN CARIASI, BMP ####[facility] Aom4789 [facility], [place] [phone] Director: Benigno Prakash MD Abs.Neutrophil (Seg) 3.58 k/uL Normal 2.1-6.5 [facility] Comment on above: Performed By: #### C LILIAN CARIASI, BMP ####[facility] Vkf7943 [facility] [place] [address] Lab Director: Benigno Prakash MD Bands 2 % Normal 0-10 [facility] Comment on above: Performed By: #### C LILIAN CARIASI, BMP ####[facility] Hgy1824 [facility] [place] [address] Lab Director: Benigno Prakash MD Basophil Normal 0-2 [facility] Comment on above: Performed By: #### C DP, TROPI, BMP ####[facility] [address] [place] [address] Lab Director: Benigno Prakash MD Eosinophil Normal 0-5 [facility] Comment on above: Performed By: #### C DP, TROPI, BMP ####[facility] [address] [address] Lab Director: Benigno Prakash MD Immature Granulocyte Normal 0 [facility] Comment on above: Performed By: #### C DP, TROPI, BMP ####[facility] Mcq2772 [facility] [place], [place] [address])[phone] Director: Benigno Prakash MD Lymphocytes (Bld) [#/Vol] 0.93 10*3/uL Low 1.0-4.8 [facility] Comment on above: Performed By: #### C DP, TROPI, BMP ####[facility] [address] [place] [address] Lab Director: Benigno Prakash MD Lymphocytes/100 WBC (Bld) 19 % Normal 13-44 [facility] Comment on above: Performed By: #### C DP, TROPI, BMP ####[facility] Srg9646 [facility] [place], [place] [phone] Director: Benigno Prakash MD Monocytes (Bld) [#/Vol] 0.29 10*3/uL Normal 0.0-1.0 [facility] Comment on above: Performed By: #### C DP, TROPI, BMP ####[facility] Iah1385 [facility] [place], [place] [phone] Director: Benigno Prakash MD Monocytes/100 WBC (Bld) 6 % Normal 5-9 [facility] Comment on above: Performed By: #### C DP, TROPI, BMP ####[facility] Kfi0123 [facility] [place] [address] Lab Director: Benigno Prakash MD Morphology Cale (Bld) [Interp] MODERATE Normal [facility] Comment on above: Result Comment: ANIS OCYTOSIS Platelet morphology normal. Manual Differential Performed Performed By: #### C ARETHA TROPI, BMP ####[facility] Ccf7026 [facility], [place] [phone] Director: Benigno Prakash MD Neutrophil (Seg) 73 % Normal 39-75 [facility] Comment on above: Performed By: #### C ARETHA TROPI, BMP ####[facility] Jhi0917 [facility], [place] [phone] Director: Benigno Prakash MD Erythrocyte distribution width (RBC) [Ratio] 19.6 % High 12.1-15.2 [facility] Comment on above: Performed By: #### C ARETHA TROPI, BMP ####[facility] Mbr7364 [facility], [place] [phone] Director: Benigno Prakash MD Hematocrit (Bld) [Volume fraction] 43.6 % Normal 41-53 [facility] Comment on above: Performed By: #### C ARETHA TROPI, BMP ####[facility] [id number] [place], [place] [id number] Director: Benigno Prakash MD Hemoglobin (Bld) [Mass/Vol] 14.8 g/dL Normal 13.5-17.5 [facility] Comment on above: Performed By: #### C DP TROPI, BMP ####[facility] [id number] [facility] [place] [phone] Director: Benigno Prakash MD MCH (RBC) [Entitic mass] 28.6 pg Normal 26-34 [facility] Comment on above: Performed By: #### C DP TROPI, BMP ####[facility] [id number] [facility] [place] [address] Lab Director: Benigno Prakash MD MCHC (RBC) [Mass/Vol] 33.9 g/dL Normal 31-37 [facility] Comment on above: Performed By: #### C DP, TROPI, BMP ####[facility] [id number] [place] [address] Lab Director: Benigno Prakash MD MCV (RBC) [Entitic vol] 84.2 fL Normal 80-100 [facility] Comment on above: Performed By: #### C DP, TROPI, BMP ####[facility] [id number] [place] [address] Lab Director: Benigno Prakash MD Platelets (Bld) [#/Vol] 164 10*3/uL Normal 140-450 [facility] Comment on above: Performed By: #### C DP, TROPI, BMP ####[facility] [id number] [place] [address] Lab Director: Benigno Prakash MD RBC (Bld) [#/Vol] 5.18 10*6/uL Normal 4.5-5.9 [facility] Comment on above: Performed By: #### C DP, TROPI, BMP ####[facility] [id number] [place] [address] Lab Director: Benigno Prakash MD WBC (Bld) [#/Vol] 4.9 10*3/uL Normal 3.5-11.0 [facility] Comment on above: Performed By: #### C DP, TROPI, BMP ####[facility] [id number] [place] [address] Lab Director: Benigno Prakash MD Troponinon 01-28-2023 Troponin, High Sens 16 ng/L Normal 0-22 [facility] Comment on above: Result Comment: High Sensitivity Troponin values cannot be compared with other Troponin methodologies. Performed By: #### C DP, TROPI, BMP ####[facility] [id number] [place] [address] Lab Director: Benigno Prakash MD XR CHEST (2 VW)on 01-28-2023 XR CHEST (2 VW) EXAM: XR CHEST (2 VW ) HISTORY: cp COMPARISON: 01/25/2023 IMPRESSION: FINDINGS/IMPRESSION: 1. Patchy airspace opacities, bilaterally, mild. 2. Prior sternotomy. 3 normal sized heart. 4. No effusion. Consider a viral process. Interpreted by: Giovani Tanner Jr., MD Signed by: Giovani Tanner Jr., MD 01/28/23 Final result Normal [facility] Flu A/B Ag Detectionon 01-25 Flu A Ag Detection Negative Normal NEG [facility] Comment on above: Result Comment: for Influenza A Antigen Performed By: #### F LUABA #### [facility] [address] [place] [address] Roll Panner: Benigno Prakash MD Flu B Ag Detection Negative Normal NEG [facility] Comment on above: Result Comment: for Influenza B Antigen. Performed By: #### F LUABA #### [facility] [address] [place] [address] Roll Panner: Benigno Prakash MD RAD - MISCon 01-25-2023 RAD - MISC [id number] 02 [id number] CD:[address] [facility] XR CHEST PORTABLEon 01-26-20 SARS-CoV-2 (COVID-19) Ab IA Ql EXAM: XR CHEST PORTABLE HISTORY: . COVID(+) x 5 days, significant aches, feels bad . COMPARISON: 01/20/2023 TECHNIQUE: Single view of the chest FINDINGS: Heart and vascularity are unremarkable. Lungs are free of focal infiltrates. Old healed rib fractures are noted on the left. Median sternotomy sutures are noted. IMPRESSION: No acute heart or lung disease identified. Interpreted by: Benigno Corey MD Signed by: Benigno Corey MD 01/25/23 Final result Normal [facility] Basic Metabolic Panelon 09-0 Anion gap [Moles/Vol] 12 mmol/L 9 - 17 mmol/L [facility] Calcium [Mass/Vol] 8.9 mg/dL 8.6 - 10. 4 mg/dL [facility] Chloride [Moles/Vol] 106 mmol/L 98 - 10 7 mmol/L [facility] CO2 [Moles/Vol] 23 mmol/L 20 - 31 mmol/L [facility] Creatinine [Mass/Vol] 1.2 mg/dL 0.7 - 1.2 mg/dL [facility] GFR/1.73 sq M.predicted MDRD (S/P/Bld) [Vol rate/Area] - PINF [facility] Comment on above: These results are not intended for use in patients <18 years of age. eGFR results are calculated without a race factor using the 2020 CKD-EPI equation. Careful clinical correlation is recommended, particularly when comparing to results calculated using previous equations. The CKD-EPI equation is less accurate in patients with extremes of muscle mass, extra-renal metabolism of creatine, excessive creatine ingestion, or following therapy that affects renal tubular secretion. Glucose [Mass/Vol] 104 mg/dL High 70 - 99 mg/dL [facility] Interpretation and review of laboratory results Abnormal [facility] Potassium [Moles/Vol] 3.9 mmol/L 3.7 - 5.3 mmol/L [facility] Sodium [Moles/Vol] 141 mmol/L 135 - 144 mmol/L [facility] Urea nitrogen [Mass/Vol] 15 mg/dL 8 - 23 mg/dL [facility] Urea nitrogen/Creatinine [Mass ratio] 13 mg/mg - [facility] Basic Metabolic Profon 01-20 Anion gap [Moles/Vol] 12 mmol/L Normal 01-31 [facility] Comment on above: Performed By: #### B MP, TRAVIS, ARIANNA #### [facility] [address] [place] [address] Roll Panner: Benigno Prakash MD BUN/CRE Ratio 13 Normal 9-20 [facility] Comment on above: Performed By: #### B TRAVIS PRESTON, TROPI #### [facility] [address] [place], [place] [id number] Roll Panner: Benigno Prakash MD Calcium [Mass/Vol] 8.9 mg/dL Normal 8.6-10.4 [facility] Comment on above: Performed By: #### B MOHAN CDP, TROPI #### [facility] [address] [place], [place] [id number] Roll Panner: Benigno Prakash MD Chloride [Moles/Vol] 106 mmol/L Normal 98-107 [facility] Comment on above: Performed By: #### B MOHAN CDP, TROPI #### [facility] [address] [place], [place] [id number] Roll Panner: Benigno Prakash MD CO2 [Moles/Vol] 23 mmol/L Normal 20-31 [facility] Comment on above: Performed By: #### B TRAVIS PRESTON, TROPI #### [facility] [address] [place], [place] [id number] Roll Panner: Benigno Prakash MD Creatinine [Mass/Vol] 1.2 mg/dL Normal 0.7-1.2 [facility] Comment on above: Performed By: #### B TRAVIS PRESTON, TROPI #### [facility] [address] [place], [place] [id number] Roll Panner: Benigno Prakash MD GFR/1.73 sq M.predicted among non-blacks MDRD (S/P/Bld) [Vol rate/Area] mL/min/{1.73_m2} Normal >60 [facility] Comment on above: Result Comment: These results are not intended for use in patients <18 years of age. eGFR results are calculated without a race factor using the 2020 CKD-EPI equation. Careful clinical correlation is recommended, particularly when comparing to results calculated using previous equations. The CKD-EPI equation is less accurate in patients with extremes of muscle mass, extra-renal metabolism of creatine, excessive creatine ingestion, or following therapy that affects renal tubular secretion. Performed By: #### B TRAVIS PRESTON, TROPI #### [facility] [address] [place] [address] Roll Panner: Benigno Prakash MD Glucose [Mass/Vol] 104 mg/dL High 70-99 [facility] Comment on above: Performed By: #### B TRAVIS PRESTON, TROPI #### [facility] [address] [place] [address] Roll Panner: Benigno Prakash MD Potassium [Moles/Vol] 3.9 mmol/L Normal 3.7-5.3 [facility] Comment on above: Performed By: #### B TRAVIS PRESTON, TROPI #### [facility] [address] [place] [address] Roll Panner: Benigno Prakash MD Sodium [Moles/Vol] 141 mmol/L Normal 135-144 [facility] Comment on above: Performed By: #### B TRAVIS PRESTON, TROPI #### [facility] [address] [place] [address] Roll Panner: Benigno Prakash MD Urea nitrogen [Mass/Vol] 15 mg/dL Normal 8-23 [facility] Comment on above: Performed By: #### B TRAVIS PRESTON, TROPI #### [facility] [address] [place] [address] Roll Panner: Benigno Prakash MD CBC with Auto Differentialon 01-20-2023 Basophils (Bld) [#/Vol] [facility] Basophils/100 WBC (Bld) 0 - 2 % [facility] Eosinophils % 0 - 5 % [facility] Eosinophils (Bld) [#/Vol] [facility] Erythrocyte distribution width (RBC) [Ratio] 20.1 % High 12.1 - 15.2 % [facility] Hematocrit (Bld) [Volume fraction] 45.3 % 41 - 53 % [facility] Hemoglobin (Bld) [Mass/Vol] 15.0 g/dL 13.5 - 17.5 g/dL [facility] Immature granulocytes (Bld) [#/Vol] [facility] Immature granulocytes/100 WBC (Bld) 0 % [facility] Interpretation and review of laboratory results Abnormal [facility] Lymphocytes/100 WBC (Bld) 35 % 13 - 44 % [facility] Lymphocytes/100 WBC (Bld) 1.30 % [facility] MCH (RBC) [Entitic mass] 28.3 pg 26 - 34 pg [facility] MCHC (RBC) [Mass/Vol] 33.0 g/dL 31 - 37 g/dL [facility] MCV (RBC) [Entitic vol] 85.6 fL 80 - 100 fL [facility] Monocytes/100 WBC (Bld) 8 % 5 - 9 % [facility] Monocytes/100 WBC (Bld) 0.30 % [facility] Morphology Cale (Bld) [Interp] MODERATE ANISOCYTOSIS [facility] Morphology Cale (Bld) [Interp] Manual Differential Performed [facility] Neutrophils/100 WBC (Bld) 57 % 39 - 75 % [facility] Platelets (Bld) [#/Vol] 180 10*3/uL [facility] RBC (Bld) [#/Vol] 5.30 10*6/uL 4.5 - 5.9 m/uL [facility] Segmented neutrophils/100 WBC (Bld) 2.10 % [facility] WBC other (Bld) [#/Vol] 3.7 [facility] CBC with Diffon 01-20-2023 Abs. Basophil Normal 0.0-0.2 [facility] Comment on above: Performed By: #### B MP, TRAVIS, ARIANNA #### [facility] [address] [place] [address] Roll Panner: Benigno Prakash MD Abs. Eosinophil Normal 0.0-0.4 [facility] Comment on above: Performed By: #### B MP, CDP, TROPI #### [facility] [address] [place], [place] [id number] Roll Panner: Benigno Prakash MD Abs.Imm.Granulocyte Normal 0.00-0.30 [facility] Comment on above: Performed By: #### B MP, CDP, TROPI #### [facility] [address] [place] [address] Roll Panner: Benigno Prakash MD Abs.Neutrophil (Seg) 2.10 k/uL Normal 2.1-6.5 [facility] Comment on above: Performed By: #### B MP, CDP, TROPI #### [facility] [address] [place] [address] Roll Panner: Benigno Prakash MD Basophil Normal 0-2 [facility] Comment on above: Performed By: #### B MP, CDP, TROPI #### [facility] [address] [place] [address] Roll Panner: Benigno Prakash MD Eosinophil Normal 0-5 [facility] Comment on above: Performed By: #### B MP, CDP, TROPI #### [facility] [address] [place], [place] [id number] Roll Panner: Benigno Prakash MD Immature Granulocyte Normal 0 [facility] Comment on above: Performed By: #### B MP, CDP, TROPI #### [facility] [address] [place] [address] Roll Panner: Benigno Prakash MD Lymphocytes (Bld) [#/Vol] 1.30 10*3/uL Normal 1.0-4.8 [facility] Comment on above: Performed By: #### B MP, CDP, TROPI #### [facility] [address] [place], [place] [phone] Roll Panner: Benigno Prakash MD Lymphocytes/100 WBC (Bld) 35 % Normal 13-44 [facility] Comment on above: Performed By: #### B TRAVIS PRESTON, TROPI #### [facility] [address] [place] [address] Roll Panner: Benigno Prakash MD Monocytes (Bld) [#/Vol] 0.30 10*3/uL Normal 0.0-1.0 [facility] Comment on above: Performed By: #### B TRAVIS PRESTON, TROPI #### [facility] [address] [place] [address] Roll Panner: Benigno Prakash MD Monocytes/100 WBC (Bld) 8 % Normal 5-9 [facility] Comment on above: Performed By: #### B TRAVIS PRESTON, TROPI #### [facility] [address] [place] [address] Roll Panner: Benigno Prakash MD Morphology Cale (Bld) [Interp] MODERATE Normal [facility] Comment on above: Result Comment: ANIS OCYTOSIS Manual Differential Performed Performed By: #### B TRAVIS PRESTON, TROPI #### [facility] [address] [place] [address] Roll Panner: Benigno Prakash MD Neutrophil (Seg) 57 % Normal 39-75 [facility] Comment on above: Performed By: #### B TRAVIS PRESTON, TROPI #### [facility] [address] [place] [address] Roll Panner: Benigno Prakash MD Erythrocyte distribution width (RBC) [Ratio] 20.1 % High 12.1-15.2 [facility] Comment on above: Performed By: #### B TRAVIS PRESTON, TROPI #### [facility] [address] [place], [place] [phone] Roll Panner: Benigno Prakash MD Hematocrit (Bld) [Volume fraction] 45.3 % Normal 41-53 [facility] Comment on above: Performed By: #### B TRAVIS PRESTON, TROPI #### [facility] [address] [place] [address] Roll Panner: Benigno Prakash MD Hemoglobin (Bld) [Mass/Vol] 15.0 g/dL Normal 13.5-17.5 [facility] Comment on above: Performed By: #### B TRAVIS PRESTON, TROPI #### [facility] [address] [place] [address] Roll Panner: Benigno Prakash MD MCH (RBC) [Entitic mass] 28.3 pg Normal 26-34 [facility] Comment on above: Performed By: #### B TRAVIS PRESTON, TROPI #### [facility] [address] [place] [address] Roll Panner: Benigno Prakash MD MCHC (RBC) [Mass/Vol] 33.0 g/dL Normal 31-37 [facility] Comment on above: Performed By: #### B TRAVIS PRESTON, TROPI #### [facility] [address] [place] [address] Roll Panner: Benigno Prakash MD MCV (RBC) [Entitic vol] 85.6 fL Normal 80-100 [facility] Comment on above: Performed By: #### B TRAVIS PRESTON, TROPI #### [facility] [address] [place] [address] Roll Panner: Benigno Prakash MD Platelets (Bld) [#/Vol] 180 10*3/uL Normal 140-450 [facility] Comment on above: Performed By: #### B TRAVIS PRESTON, TROPI #### [facility] [address] [place] [address] Roll Panner: Benigno Prakash MD RBC (Bld) [#/Vol] 5.30 10*6/uL Normal 4.5-5.9 [facility] Comment on above: Performed By: #### B TRAVIS PRESTON, TROPI #### [facility] [address] [place] [address] Roll Panner: Benigno Prakash MD WBC (Bld) [#/Vol] 3.7 10*3/uL Normal 3.5-11.0 [facility] Comment on above: Performed By: #### B TRAVIS PRESTON, TROPI #### [facility] [address] [place] [address] Roll Panner: Benigno Prakash MD COVID-19, Rapidon 01-20-2023 Interpretation and review of laboratory results Abnormal [facility] SARS-CoV-2 (COVID-19) RdRp gene IGOR+probe Ql (Resp) Detected Abnormal Not Detected [facility] Comment on above: Rapid NAAT: The specimen is POSITIVE for SARS-Cov-2, the novel coronavirus associated with COVID-19. This test has been authorized by the FDA under an Emergency Use Authorization (EUA) for use by authorized laboratories. The ID NOW COVID-19 assay is designed to detect the virus that causes COVID-19 in patients with signs and symptoms of infection who are suspected of COVID-19. An individual without symptoms of COVID-19 and who is not shedding SARS-CoV-2 virus would expect to have a negative (not detected) result in this assay. Fact sheet for Healthcare Providers: https://www.fda.gov/media/434519/download Fact sheet for Patients: https://www.fda.gov/media/194544/download Methodology: Isothermal Nucleic Acid Amplification Results reported to the appropriate Health Department Specimen Description .NASOPHARYNGEAL SWAB [facility] [id number] 01-20-2023 SARS-CoV-2 (COVID-19) RNA IGOR+probe Ql (Unsp spec) Detected Abnormal NOTDET [facility] Comment on above: Result Comment: Rapid NAAT: The specimen is POSITIVE for SARS-Cov-2, the novel coronavirus associated with COVID-19. This test has been authorized by the FDA under an Emergency Use Authorization (EUA) for use by authorized laboratories. The ID NOW COVID-19 assay is designed to detect the virus that causes COVID-19 in patients with signs and symptoms of infection who are suspected of COVID-19. An individual without symptoms of COVID-19 and who is not shedding SARS-CoV-2 virus would expect to have a negative (not detected) result in this assay. Fact sheet for Healthcare Providers: https://www.fda.gov/media/835994/download Fact sheet for Patients: https://www.fda.gov/media/155609/download Methodology: Isothermal Nucleic Acid Amplification Results reported to the appropriate Health Department Performed By: #### C OVRB ####[facility] [address] [place] [address] Lab Director: Benigno Prakash MD Troponinon 01-20-2023 Troponin, High Sens 14 ng/L Normal 0-22 [facility] Comment on above: Result Comment: High Sensitivity Troponin values cannot be compared with other Troponin methodologies. Performed By: #### B MP, CDP, TROPI #### [facility] [address] [place] [address] Roll Panner: Benigno Prakash MD Troponin I.cardiac High sensitivity method [Mass/Vol] 14 ng/L 0 - 22 ng/L [facility] Comment on above: High Sensitivity Tro ponin values cannot be compared with other Troponin methodologies. [facility] XR CHEST PORTABLEon 01-21-20 XR CHEST PORTABLE EXAM: XR CHEST PORTABLE HISTORY: cough . Dyspnea. Left-sided chest pain. COMPARISON: Chest x-ray, 11/28/2022. TECHNIQUE: Frontal chest x-ray. FINDINGS: Sternotomy wires are unchanged. The heart, mediastinum and pulmonary vascularity are within normal limits. The lungs and pleural spaces are clear. Multiple nonacute left lateral rib fractures are noted. IMPRESSION: 1. No acute cardiopulmonary findings. 2. Multiple nonacute left lateral rib fractures. Interpreted by: Vijay Gutierres MD Signed by: Vijay Gutierres MD 01/20/23 Final result Normal [facility] 1. No acute cardiopulmonary findings. 2. Multiple nonacute left lateral rib fractures. [facility] RIS CONSOLIDATED EXAM: XR CHEST PORTABLE HISTORY: cough . Dyspnea. Left-sided chest pain. COMPARISON: Chest x-ray, 11/28/2022. TECHNIQUE: Frontal chest x-ray. FINDINGS: Sternotomy wires are unchanged. The heart, mediastinum and pulmonary vascularity are within normal limits. The lungs and pleural spaces are clear. Multiple nonacute left lateral rib fractures are noted. [facility] RIS CONSOLIDATED Vijay Gutierres MD - 01/20/2023 EXAM: XR CHEST PORTABLE HISTORY: cough . Dyspnea. Left-sided chest pain. COMPARISON: Chest x-ray, 11/28/2022. TECHNIQUE: Frontal chest x-ray. FINDINGS: Sternotomy wires are unchanged. The heart, mediastinum and pulmonary vascularity are within normal limits. The lungs and pleural spaces are clear. Multiple nonacute left lateral rib fractures are noted. IMPRESSION: 1. No acute cardiopulmonary findings. 2. Multiple nonacute left lateral rib fractures. [facility] Radiology Study observation (narrative) [facility] XR CHEST PORTABLEOrdered By: Vijay Gutierres on 01-20-2023 [facility] Work Phone: Physician Referralon 023 Physician Referral [id number] 02 [id number]. 00CD:[address] [facility] Ambulatory Visit Summaryon 0 01-11-2023 Ambulatory Visit Summary MARYSE MAK :1955 Visit Date:01/11/2023 Ambulatory Visit Instructions Your Diagnosis CAD in [place] artery Hx of myocardial infarction HTN (hypertension) Lumbar spondylitis BMI 31.0-31.9,adult Your Care Team Attending Physician - Paulette CARBALLO CNP Primary Care Physician - Paulette CARBALLO CNP This Is Your Medications List gabapentin (gabapentin 800 mg Tab) lisinopril (lisinopril 30 mg Tab) sildenafil (Viagra 100 mg Tab) tamsulosin (tamsulosin 0.4 mg Cap) Contact prescribing physician if questions or concerns aspirin (aspirin 81 mg Oral EC Tab) fluticasone nasal (Flonase 0.05 mg/inh Campbell) Discharge Vitals Heart Rate (Peripheral) 63 Blood Pressure 104/68 Height 183 cm Height 72 in Weight 106.2 kg Weight 233.64 lb BMI 31.71 What to do next Scheduled Follow-Up Appointments Wednesday 2:00 PM EDT With: Where: [facility] [address] [place] [address]- \.br\ You Need to Schedule the Following Appointments\. br\ Follow Up with Paulette CARBALLO CNP When: In 6 months\.br\ Where:\.br\ [address] [facility]\.br\ [place] [address]-\.br\ \.br\ Medications\.b r\ What How Much When Why Instructions\. br\ Changed sildenafil (Viagra 100 mg Tab) 1 Tablets By Mouth Every day as needed for for erectile dysfunction Pickup at [facility] #[id number]\.br\ Unchanged gabapentin (gabapentin 800 mg Tab) 1 Tablets By Mouth 3 times a day Lumbar spondylitis 30 day supply Pickup at [facility] #[id number]\.br\ Unchanged lisinopril (lisinopril 30 mg Tab) 1 Tablets By Mouth Every day Pickup at [facility] #[id number]\.br\ Unchanged tamsulosin (tamsulosin 0.4 mg Cap) 1 Capsules By Mouth Every day Pickup at [facility] #[id number]\.br\ Unchanged aspirin (aspirin 81 mg Oral EC Tab) 1 Tablets By Mouth Every day Contact prescribing physician if questions or concerns \.br\ Unchanged fluticasone nasal (Flonase 0.05 mg/ inh Campbell) 1 Sprays Nasal Inhalation 2 times a day each nostril Contact prescribing physician if questions or concerns \.br\ Pharmacy Information\.b r\ [facility] #[id number]: [address], [place] [id number] [phone]\.br\ Allergies\.br\ No Known Allergies\.br\ Problems\.br\ Ongoing - Any problem that you are currently receiving treatment for.\.br\ BPH without urinary obstruction\.b r\ CAD in [place] artery\.br\ COPD mixed type\.br\ Erectile dysfunction\.b r\ Former smoker\.br\ History of alcoholism\.br \ History of lumbar fusion\.br\ History of substance abuse\.br\ HTN (hypertension) \.br\ Hx of myocardial infarction\.br \ Lumbar spondylitis\.b r\ Major depressive disorder, single episode, severe\.br\ Situational anxiety\.br\ Historical - Any problem that you are no longer receiving treatment for.\.br\ 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 It can affect almost every organ in the body. Smoking puts you and people around you at risk for many serious, long-lasting (chronic) diseases. Quitting smoking can be hard, but it is one of the best things that you can do for your health. It is never too late to quit.\.br\ Do not give up if you cannot quit the first time. Some people need to try many times to quit. Do your best to stick to your quit plan, and talk with your doctor if you have any questions or concerns.\.br\ How do I get ready to quit?\.br\ ? \.br\ Pick a date to quit. Set a date within the next 2 weeks to give you time to prepare.\.br\ ? \.br\ Write down the reasons why you are quitting. Keep this list in places where you will see it often.\.br\ ? \.br\ Tell your family, friends, and co-workers that you are quitting. Their support is important.\.br \ ? \.br\ Talk with your doctor about the choices that may help you quit.\.br\ ? \.br\ Find out if your health insurance will pay for these treatments.\.b r\ ? \.br\ Know the people, places, things, and activities that make you want to smoke (triggers). Avoid them.\.br\ What first steps can I take to quit smoking?\.br\ ? \.br\ Throw away all cigarettes at home, at work, and in your car.\.br\ ? \.br\ Throw away the things that you use when you smoke, such as ashtrays and lighters.\.br\ ? \.br\ Clean your car. Empty the ashtray.\.br\ ? \.br\ Clean your home, including curtains and carpets.\.br\ What can I do to help me quit smoking?\.br\ Talk with your doctor about taking medicines and seeing a counselor. You are more likely to succeed when you do both.\.br\ If you are or : \.br\ ? \.br\ Talk with your doctor about counseling or other ways to quit smoking.\.br\ ? \.br\ Do not take medicine to help you quit smoking unless your doctor tells you to.\.br\ Quit right away\.br\ ? \.br\ Quit smoking completely, instead of slowly cutting back on how much you smoke over a period of time. Stopping smoking right away may be more successful than slowly quitting.\.br\ ? \.br\ Go to counseling. In-person is best if this is an option. You are more likely to quit if you go to counseling sessions regularly.\.br \ Take medicine\.br\ You may take medicines to help you quit. Some medicines need a prescription, and some you can buy iook-ity-cuaqm er. Some medicines may contain a drug called nicotine to replace the nicotine in cigarettes. Medicines may:\.br\ ? \.br\ Help you stop having the desire to smoke (cravings).\.b r\ ? \.br\ Help to stop the problems that come when you stop smoking (withdrawal symptoms).\.br \ Your doctor may ask you to use:\.br\ ? \.br\ Nicotine patches, gum, or lozenges.\.br\ ? \.br\ Nicotine inhalers or sprays.\.br\ ? \.br\ Non-nicotine medicine that you take by mouth.\.br\ Find resources\.br\ \.br\ Find resources and other ways to help you quit smoking and remain smoke-free after you quit. They include:\.br\ ? \.br\ Online chats with a counselor.\.br \ ? \.br\ Phone quitlines.\.br \ ? \.br\ Printed self-help materials.\.br \ ? \.br\ Support groups or group counseling.\.b r\ ? \.br\ Text messaging programs.\.br\ ? \.br\ Mobile phone apps. Use apps on your mobile phone or tablet that can help you stick to your quit plan. Examples of free services include Quit Guide from the CDC and smokefree.gov\ .br\ What can I do to make it easier to quit?\.br\ \.br\ ? \.br\ Talk to your family and friends. Ask them to support and encourage you.\.br\ ? \.br\ Call a phone quitline, such as 0-228-JTFNOPX Biote[employer]ologiesNOW , reach out to support groups, or work with a counselor.\.br \ ? \.br\ Ask people who smoke to not smoke around you.\.br\ ? \.br\ Avoid places that make you want to smoke, such as:\.br\ ? \.br\ Bars.\.br\ ? \.br\ Parties.\.br\ ? \.br\ Smoke-break areas at work.\.br\ ? \.br\ Spend time with people who do not smoke.\.br\ ? \.br\ Lower the stress in your life. Stress can make you want to smoke. Try these things to lower stress:\.br\ ? \.br\ Getting regular exercise.\.br\ ? \.br\ Doing deep-breathing exercises.\.br \ ? \.br\ Doing yoga.\.br\ ? \.br\ Meditating.\.b r\ What benefits will I see if I quit smoking?\.br\ Over time, you may have:\.br\ ? \.br\ A better sense of smell and taste.\.br\ ? \.br\ Less coughing and sore throat.\.br\ ? \.br\ A slower heart rate.\.br\ ? \.br\ Lower blood pressure.\.br\ ? \.br\ Clearer skin.\.br\ ? \.br\ Better breathing.\.br \ ? \.br\ Fewer sick days.\.br\ Summary\.br\ ? \.br\ Quitting smoking can be hard, but it is one of the best things that you can do for your health.\.br\ ? \.br\ Do not give up if you cannot quit the first time. Some people need to try many times to quit.\.br\ ? \.br\ When you decide to quit smoking, make a plan to help you succeed.\.br\ ? \.br\ Quit smoking right away, not slowly over a period of time.\.br\ ? \.br\ When you start quitting, get help and support to keep you smoke-free.\.b r\ This information is not intended to replace advice given to you by your health care provider. Make sure you discuss any questions you have with your health care provider.\.br\ Document Revised: 04/24/2022 Document Reviewed: 04/24/2022 [employer] Patient Education ? [address] [facility] Family Medicine Office/Clini c Noteon 01-11-2023 Family Medicine Office/Clinic Note Chief Complaint Chronic f/u HPI Staff Patient is here for follow up on hypertension. How often are you checking your blood pressure? Not checking What are your average readings? N/A Do you exercise? Walks Are you compliant with your medications? Yes Do you have side effects from the medication? No Do you have any of the following symptoms? Chest Pain? No Palpitations? No GAINES/SOB? No Headache? No Peripheral Edema? No Light Headedness? No Colon Cancer Screen - Last done 10 yrs ago, states it was normal. Pt declines at this time. Fasting Labs - Pt is not fasting. Would like to have labs done in the [facility] office. The standard range for ages 18 and older is >=18.5 and < 25 kg/m2. Your BMI today was above this range, this falls in the overweight to obese category and there are medical benefits to weight loss. We can offer counselling, referral, and/or medical support in addressing this problem. Your BMI and weight management will be followed at subsequent visits. We strongly recommend to quit tobacco use. Cigarette smoking harms nearly every organ of the body, causes many diseases, and reduces the health of smokers in general. Quitting smoking lowers your risk for smoking-related diseases and can add years to your life. We encourage you to visit www.smokefree.gov access to helpful resources including free telephone support. If you decide on prescription treatment to help you quit, we would be happy to provide these. History of Present Illness Maryse Mak is 67-year-old male presents here today for 6-month follow-up of chronic conditions with medication refills. In regards to his hypertension, he continues on lisinopril. He is not checking his blood pressure at home. He is trying to walk for exercise most days of the week. He is compliant with his lisinopril. 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 Also due for gabapentin refill, takes 800 mg three times a day for a history of lumbar spondylosis. Has had a couple lumbar back surgeries in the past. The gabapentin does control his radicular pain however, not his lower back pain this manages on his own. At his last visit, I did prescribe sildenafil for erectile dysfunction. I'm going to check and see if that's helpful today. 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 He continues to follow up with cardiology and thoracic surgery for this. No recent chest pain or issues. He is due for a Medicare wellness visit. Otherwise, he's doing well, no complaints. He states that the sildenafil does not help. He prefers getting the regular Viagra. He is considering taking the generic Cialis if the Viagra would not be covered. He has had really bad spasms. He thought he was having a heart attack. He has had an X-ray. He was thinking that it was caused by lifting his grandkids. It got bad the next night. He went to [facility]. He was given Tramadol. He was told that his 5 ribs that were broken have not healed yet. He was also told that he pulled a muscle that was going around the bone. He almost ran out of Tramadol. He started feeling better. He has had good days and bad days. He went to his wort extractor and he was told that he needs to see a pain specialist. He just wants to take medications. He would not go to the pain clinic. He has been walking for exercise, and for a start, he has been walking for half a mile. He is loading a 2-pound dumbbell. He is planning on adding a little more but he does not want to do a lot. He has a rib that was cut from his sternum. When he lies on the side where the bone was cut, his chest sticks out. He wants to establish care with Dr. Aleman. He was not given an intervention for his cough until 6 months. He saw a professional caster and was given a nasal spray, and inhaler. He is not using his inhaler everyday because his throat gets dry, but he feels good. Review of Systems PHQ Score Initial Depression Screen Score: 0 All other systems are negative except as stated in the HPI. Physical Exam Vitals & Measurements HR: 63(Peripheral) BP: 104/68 SpO2: 98% HT: 72 in HT: 183 cm WT: 106.2 kg WT: 233.64 lb BMI: 31.71 General: Overweight, in no acute distress. Lungs: Normal respiratory effort and clear to auscultation. Cardio: Regular rate and rhythm, normal S1 and S2, no murmur, no rub. Neurologic: Grossly normal. Lymph Nodes: No cervical adenopathy, nodes normal. Mental Status: Alert and oriented x3. Normal mood and affect. Assessment/Plan 1. CAD in [place] artery (I25.10: Atherosclerotic heart disease of [place] coronary artery without angina pectoris) He underwent CABG in 11/2021 with a couple of sternal fixations afterwards from a complication of sternal fracture that was causing pain. 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 He was not satisfied with them. He now lives in [place] and would like to stay local to (more content not included)... [facility] Comment on above: Result Comment: Elec tronically Signed By: Paulette CARBALLO CNP\.br\Date and Time Signed: 01/11/23 13:19 EDT\.br\Electronically Co-Signed By: Javier Ramirez\.br\Date and Time Co-Signed: 01/11/23 13:02 EDT Medication Consenton 023 Medication Consent [id number] CD:127 [facility] Patient Educationon 01-12-20 23 Patient Education Gastroenterology Obesity, Adult Obesity is having too much body fat. Being obese means that your weight is more than what is healthy for you. BMI (body mass index) is a number that explains how much body fat you have. If you have a BMI of 30 or more, you are obese. Obesity can cause serious health problems, such as: ? Stroke. ? Coronary artery disease (CAD). ? Type 2 diabetes. ? Some types of cancer. ? High blood pressure (hypertension). ? High cholesterol. ? Gallbladder stones. Obesity can also contribute to: ? Osteoarthritis. ? Sleep apnea. ? Infertility problems. What are the causes? ? Eating meals each day that are high in calories, sugar, and fat. ? Drinking a lot of drinks that have sugar in them. ? Being born with genes that may make you more likely to become obese. ? Having a medical condition that causes obesity. ? Taking certain medicines. ? Sitting a lot (having a sedentary lifestyle). ? Not getting enough sleep. What increases the risk? ? Having a family history of obesity. ? Living in an area with limited access to: ? [place], recreation centers, or sidewalks. ? Healthy food choices, such as grocery stores and [employer]. What are the signs or symptoms? The main sign is having too much body fat. How is this treated? Treatment for this condition often includes changing your lifestyle. Treatment may include: ? Changing your diet. This may include making a healthy meal plan. ? Exercise. This may include activity that causes your heart to beat faster (aerobic exercise) and strength training. Work with your doctor to design a program that works for you. ? Medicine to help you lose weight. This may be used if you are not able to lose one pound a week after 6 weeks of healthy eating and more exercise. ? Treating conditions that cause the obesity. ? Surgery. Options may include gastric banding and gastric bypass. This may be done if: ? Other treatments have not helped to improve your condition. ? You have a BMI of 40 or higher. ? You have life-threatening health problems related to obesity. Follow these instructions at home: Eating and drinking ? Follow advice from your doctor about what to eat and drink. Your doctor may tell you to: ? Limit fast food, sweets, and processed snack foods. ? Choose low-fat options. For example, choose low-fat milk instead of whole milk. ? Eat five or more servings of fruits or vegetables each day. ? Eat at home more often. This gives you more control over what you eat. ? Choose healthy foods when you eat out. ? Learn to read food labels. This will help you learn how much food is in one serving. ? Keep low-fat snacks available. ? Avoid drinks that have a lot of sugar in them. These include soda, fruit juice, iced tea with sugar, and flavored milk. ? Drink enough water to keep your pee (urine) pale yellow. ? Do not go on fad diets. Physical activity ? Exercise often, as told by your doctor. Most adults should get up to 150 minutes of moderate-intensity exercise every week.Ask your doctor: ? What types of exercise are safe for you. ? How often you should exercise. ? Warm up and stretch before being active. ? Do slow stretching after being active (cool down). ? Rest between times of being active. Lifestyle ? Work with your doctor and a food expert (dietitian) to set a weight-loss goal that is best for you. ? Limit your screen time. ? Find ways to reward yourself that do not involve food. ? Do not drink alcohol if: ? Your doctor tells you not to drink. ? You are , may be , or are planning to become . ? If you drink alcohol: ? Limit how much you have to: ? 0?1 drink a day for women. ? 0?2 drinks a day for men. ? Know how much alcohol is in your drink. In the [place] one drink equals one 12 oz bottle of beer (355 mL), one 5 oz glass of wine (148 mL), or one 1? oz glass of hard liquor (44 mL). General instructions ? Keep a weight-loss journal. This can help you keep track of: ? The food that you eat. ? How much exercise you get. ? Take [id number]-zfmglpc and prescription medicines only as told by your doctor. ? Take vitamins and supplements only as told by your doctor. ? Think about joining a support group. ? Pay attention to your mental health as obesity can lead to depression or self esteem issues. ? Keep all follow-up visits. Contact a doctor if: ? You cannot meet your weight-loss goal after you have changed your diet and lifestyle for 6 weeks. ? You are having trouble breathing. Summary ? Obesity is having too much body fat. ? Being obese means that your weight is more than what is healthy for you. ? Work with your doctor to set a weight-loss goal. ? Get regular exercise as told by your doctor. This information is not intended to replace advice given to you by your health care provider. Make sure you discuss any questions you have with yo (more content not included)... Normal [facility] APTTon 11-28-2022 aPTT Coag (Bld) [Time] 24.0 s Normal 23.9-33.8 [facility] Comment on above: Result Comment: IV Heparin Therapy Range: 62.0-94.0 Performed By: #### D JAMARI, CDP, PT, PTT, BNP, TROPI, BMPX ####[facility] [id number] [place] [address] lab Director: Benigno Prakash MD Basic Metab w/rfx MGon 11-28 Anion gap [Moles/Vol] 10 mmol/L Normal - [facility] Comment on above: Performed By: #### D JAMARI, CDP, PT, PTT, BNP, TROPI, BMPX ####[facility] [address] [place] [address] lab Director: Benigno Prakahs MD BUN/CRE Ratio 17 Normal - [facility] Comment on above: Performed By: #### D JAMARI, CDP, PT, PTT, BNP, TROPI, BMPX ####[facility] [address] [place] [address] lab Director: Benigno Prakash MD Calcium [Mass/Vol] 8.6 mg/dL Normal 8.6-10.4 [facility] Comment on above: Performed By: #### D JAMARI, CDP, PT, PTT, BNP, TROPI, BMPX ####[facility] [address] [place] [address] lab Director: Benigno Prakash MD Chloride [Moles/Vol] 104 mmol/L Normal 98-107 [facility] Comment on above: Performed By: #### D JAMARI, CDP, PT, PTT, BNP, TROPI, BMPX ####[facility] [address] [place] [address] lab Director: Benigno Prakash MD CO2 [Moles/Vol] 24 mmol/L Normal 20-31 [facility] Comment on above: Performed By: #### D JAMARI, CDP, PT, PTT, BNP, TROPI, BMPX ####[facility] [address] [place] [address] lab Director: Benigno Prakash MD Creatinine [Mass/Vol] 0.9 mg/dL Normal 0.7-1.2 [facility] Comment on above: Performed By: #### D JAMARI, CDP, PT, PTT, BNP, TROPI, BMPX ####[facility] [address] [place] [address] lab Director: Benigno Prakash MD GFR/1.73 sq M.predicted among non-blacks MDRD (S/P/Bld) [Vol rate/Area] mL/min/{1.73_m2} Normal >60 [facility] Comment on above: Result Comment: These results are not intended for use in patients <18 years of age. eGFR results are calculated without a race factor using the 2020 CKD-EPI equation. Careful clinical correlation is recommended, particularly when comparing to results calculated using previous equations. The CKD-EPI equation is less accurate in patients with extremes of muscle mass, extra-renal metabolism of creatine, excessive creatine ingestion, or following therapy that affects renal tubular secretion. Performed By: #### D JAMARI, CDP, PT, PTT, BNP, TROPI, BMPX ####[facility] [address] [place] [address] lab Director: Benigno Prakash MD Glucose [Mass/Vol] 96 mg/dL Normal 70-99 [facility] Comment on above: Performed By: #### D JAMARI, CDP, PT, PTT, BNP, TROPI, BMPX ####[facility] [address] [place] [address] Lab Director: Benigno Prakash MD Potassium [Moles/Vol] 4.3 mmol/L Normal 3.7-5.3 [facility] Comment on above: Performed By: #### D JAMARI, CDP, PT, PTT, BNP, TROPI, BMPX ####[facility] [address] [place] [address] lab Director: Benigno Prakash MD Sodium [Moles/Vol] 138 mmol/L Normal 135-144 [facility] Comment on above: Performed By: #### D JAMARI, CDP, PT, PTT, BNP, TROPI, BMPX ####[facility] [id number] [place] [address] lab Director: Benigno Prakash MD Urea nitrogen [Mass/Vol] 15 mg/dL Normal 8-23 [facility] Comment on above: Performed By: #### D JAMARI, CDP, PT, PTT, BNP, TROPI, BMPX ####[facility] [id number] [place] [address] lab Director: Benigno Prakash MD Brain Natri. Peptideon 11-28 Pro-BNP <36 Normal <300 [facility] Comment on above: Result Comment: An age-independent cutoff point of 300 pg/ml has a 98% negative predictive value excluding acute heart failure. Performed By: #### D JAMARI, CDP, PT, PTT, BNP, TROPI, BMPX ####[facility] [address] [place] [address] lab Director: Benigno Prakash MD CBC with Diffon 11-28-2022 Abs. Basophil 0.10 k/uL Normal 0.0-0.2 [facility] Comment on above: Performed By: #### D JAMARI, CDP, PT, PTT, BNP, TROPI, BMPX ####[facility] [address] [place] [address] lab Director: Benigno Prakash MD Abs.Neutrophil (Seg) 7.90 k/uL High 2.1-6.5 [facility] Comment on above: Performed By: #### D JAMARI, CDP, PT, PTT, BNP, TROPI, BMPX ####[facility] [address] [place], [place] [id number] Lab Director: Benigno Prakash MD Auto Diff Performed YES Normal [facility] Comment on above: Performed By: #### D JAMARI, CDP, PT, PTT, BNP, TROPI, BMPX ####[facility] [address] [place] [address] Lab Director: Benigno Prakash MD Basophils/100 WBC (Bld) 1 % Normal 0-2 [facility] Comment on above: Performed By: #### D JAMARI, CDP, PT, PTT, BNP, TROPI, BMPX ####[facility] [address] [place] [address] Lab Director: Benigno Prakash MD Eosinophils (Bld) [#/Vol] 0.20 10*3/uL Normal 0.0-0.4 [facility] Comment on above: Performed By: #### D JAMARI, CDP, PT, PTT, BNP, TROPI, BMPX ####[facility] [address] [place] [id number] Lab Director: Benigno Prakash MD Eosinophils/100 WBC (Bld) 2 % Normal 0-5 [facility] Comment on above: Performed By: #### D JAMARI, CDP, PT, PTT, BNP, TROPI, BMPX ####[facility] [address] [place] [address] Lab Director: Benigno Prakash MD Erythrocyte distribution width (RBC) [Ratio] 18.7 % High 12.1-15.2 [facility] Comment on above: Performed By: #### D JAMARI, CDP, PT, PTT, BNP, TROPI, BMPX ####[facility] [address] [place] [address] Lab Director: Benigno Prakash MD Hematocrit (Bld) [Volume fraction] 45.1 % Normal 41-53 [facility] Comment on above: Performed By: #### D JAMARI, CDP, PT, PTT, BNP, TROPI, BMPX ####[facility] [address] [place] [address] Lab Director: Benigno Prakash MD Hemoglobin (Bld) [Mass/Vol] 14.7 g/dL Normal 13.5-17.5 [facility] Comment on above: Performed By: #### D JAMARI, CDP, PT, PTT, BNP, TROPI, BMPX ####[facility] [address] [place] [address] Lab Director: Benigno Prakash MD Lymphocytes (Bld) [#/Vol] 2.30 10*3/uL Normal 1.0-4.8 [facility] Comment on above: Performed By: #### D JAMARI, CDP, PT, PTT, BNP, TROPI, BMPX ####[facility] [address] [facility] [place] [address] Lab Director: Benigno Prakash MD Lymphocytes/100 WBC (Bld) 21 % Normal 13-44 [facility] Comment on above: Performed By: #### D JAMARI, CDP, PT, PTT, BNP, TROPI, BMPX ####[facility] [address] [place] [address] Lab Director: Benigno Prakash MD MCH (RBC) [Entitic mass] 27.1 pg Normal 26-34 [facility] Comment on above: Performed By: #### D JAMARI, CDP, PT, PTT, BNP, TROPI, BMPX ####[facility] [address] [place] [address] Lab Director: Benigno Prakash MD MCHC (RBC) [Mass/Vol] 32.6 g/dL Normal 31-37 [facility] Comment on above: Performed By: #### D JAMARI, CDP, PT, PTT, BNP, TROPI, BMPX ####[facility] [address] [place], [place] [id number] Director: Benigno Prakash MD MCV (RBC) [Entitic vol] 83.2 fL Normal 80-100 [facility] Comment on above: Performed By: #### D JAMARI, CDP, PT, PTT, BNP, TROPI, BMPX ####[facility] [address] [place], [place] [id number] Director: Benigno Prakash MD Monocytes (Bld) [#/Vol] 0.60 10*3/uL Normal 0.0-1.0 [facility] Comment on above: Performed By: #### D JAMARI, CDP, PT, PTT, BNP, TROPI, BMPX ####[facility] [id number] [facility], [place] [phone] Director: Benigno Prakash MD Monocytes/100 WBC (Bld) 6 % Normal 5-9 [facility] Comment on above: Performed By: #### D JAMARI, CDP, PT, PTT, BNP, TROPI, BMPX ####[facility] [address] [place], [place] [id number] Director: Benigno Prakash MD Neutrophil (Seg) 70 % Normal 39-75 [facility] Comment on above: Performed By: #### D JAMARI, CDP, PT, PTT, BNP, TROPI, BMPX ####[facility] [address] [place], [place] [phone] Director: Benigno Prakash MD Platelets (Bld) [#/Vol] 254 10*3/uL Normal 140-450 [facility] Comment on above: Performed By: #### D JAMARI, CDP, PT, PTT, BNP, TROPI, BMPX ####[facility] [id number] [place], [place] [id number] lab Director: Benigno Prakash MD RBC (d) [#/Vol] 5.42 10*6/uL Normal 4.5-5.9 [facility] Comment on above: Performed By: #### D JAMARI, CDP, PT, PTT, BNP, TROPI, BMPX ####[facility] [address] [place], [place] [id number] lab Director: Benigno Prakash MD WBC (d) [#/Vol] 11.1 10*3/uL High 3.5-11.0 [facility] Comment on above: Performed By: #### D JAMARI, CDP, PT, PTT, BNP, TROPI, BMPX ####[facility] [id number] [facility], [place] [id number] lab Director: Benigno Prakash MD Diff Methodon 11-28-2022 Diff Method AUTO Normal [facility] Comment on above: Performed By: #### D JAMARI, CDP, PT, PTT, BNP, TROPI, BMPX ####[facility] [address] [place], [place] [id number] lab Director: Benigno Prakash MD PTon 11-28-2022 INR Coag (PPP) [Relative time] 0.9 {INR} Normal [facility] Comment on above: Result Comment: Therapeutic Range: Moderate Anticoagulant Intensity: INR = 2.0-3.0 High Anticoagulant Intensity: INR = 2.5-3.5 Performed By: #### D JAMARI, CDP, PT, PTT, BNP, TROPI, BMPX ####[facility] [address] [place], [place] [id number] lab Director: Benigno Prakash MD PT Coag (PPP) [Time] 12.3 s Normal 11.5-14.2 [facility] Comment on above: Performed By: #### D JAMARI, CDP, PT, PTT, BNP, TROPI, BMPX ####[facility] [address] [place], [place] [id number] Lab Director: Benigno Prakash MD Troponinon 11-28-2022 Troponin, High Sens 19 ng/L Normal 0-22 [facility] Comment on above: Result Comment: High Sensitivity Troponin values cannot be compared with other Troponin methodologies. Performed By: #### T ROPI #### [facility] [address] [place] [address] Roll Panner: Benigno Prakash MD Troponin, High Sens 18 ng/L Normal 0-22 [facility] Comment on above: Result Comment: High Sensitivity Troponin values cannot be compared with other Troponin methodologies. Performed By: #### D JAMARI, CDP, PT, PTT, BNP, TROPI, BMPX ####[facility] [id number] [place] [address] lab Director: Benigno Prakash MD XR CHEST PORTABLEon 11-29-19 XR CHEST PORTABLE EXAMINATION: XR CHES T PORTABLE HISTORY: Reason for exam:->Chest pain COMPARISON: 05/26/2018 TECHNIQUE: Portable FINDINGS: LUNGS: No significant pulmonary parenchymal abnormalities. VASCULATURE: No increased pulmonary vasculature. PLEURA: No pneumothorax, effusion, or pleural thickening. CARDIAC: No cardiomegaly or cardiac silhouette abnormality. MEDIASTINUM: No visible mass or adenopathy. Median sternotomy wires BONES: No fracture or visible bone lesion. OTHER: Negative. IMPRESSION: No acute cardiopulmonary process Interpreted by: Benigno Fry MD Signed by: Benigno Fry MD 11/28/22 Final result Normal [facility] Basic metabolic 2000 panelon 08-31-2022 Anion gap [Moles/Vol] 3 mmol/L Low 10 - 20 mmol/L [facility] Calcium [Mass/Vol] 9.0 mg/dL 8.4 - 10. 2 mg/dL [facility] Chloride [Moles/Vol] 112 mmol/L High 98 - 10 8 mmol/L [facility] Creatinine [Mass/Vol] 1.04 mg/dL 0.80 - 1.30 mg/dL [facility] GFR/1.73 sq M.predicted CKD-EPI (S/P/Bld) [Vol rate/Area] 80 - PINF [facility] Comment on above: Estimated GFR was ca lculated using the 2020 CKD-EPI creatinine equation. Glucose [Mass/Vol] 120 mg/dL High 65 - 99 mg/dL [facility] HCO3 [Moles/Vol] 29 mmol/L 21 - 32 mmol/L [facility] Interpretation and review of laboratory results Abnormal [facility] Potassium [Moles/Vol] 4.2 mmol/L 3.5 - 5.1 mmol/L [facility] Sodium [Moles/Vol] 140 mmol/L 135 - 145 mmol/L [facility] Urea nitrogen [Mass/Vol] 9 mg/dL 8 - 25 mg/dL [facility] Urea nitrogen/Creatinine [Mass ratio] 8.7 mg/mg Low 10.0 - 20.0 [facility] has implemented the eGFR calculation approach that does not have a coefficient for race that conforms to the NKF-ASN Task Force Recommendations. [facility] XR Chest AP/PA and LATon 1. Stable appearance of cerclage wires and screw-plate fixators in the sternum. Hardware is grossly intact. 2. No acute process is identified in the chest. [facility]/cdr Workstation ID: [id number] GE RIS EXAMINATION: XR CHEST AP/PA AND LAT - 08/18/2022 COMPARISON: Chest radiograph dated 08/11/2022. ADDITIONAL HISTORY: Sternal rewire. Dx: Closed fracture of sternum with nonunion, unspecified portion of sternum, subsequent encounter S22.20XK (ICD-10-CM). FINDINGS: Postoperative changes from sternotomy are noted with 5 cerclage wires noted in the mid-upper sternum/manubrium along with screw-plate devices along the mid-inferior sternum/xiphoid process. Cerclage wires and hardware are grossly intact and not significantly changed in position. Three of the screws are seen at the inferior margin of the xiphoid within the adjacent soft tissues. The cardiac silhouette remains normal in size. Lungs are clear. Costophrenic angles are sharp. Chronic, healed left-sided rib fractures again noted. Partially imaged is posterior fusion hardware in the upper lumbar spine. Degenerative changes again seen throughout the dorsal spine. GE RIS Gonzalez, William Kelsie, MD - 08/18/2022 EXAMINATION: XR CHEST AP/PA AND LAT - 08/18/2022 COMPARISON: Chest radiograph dated 08/11/2022. ADDITIONAL HISTORY: Sternal rewire. Dx: Closed fracture of sternum with nonunion, unspecified portion of sternum, subsequent encounter S22.20XK (ICD-10-CM). FINDINGS: Postoperative changes from sternotomy are noted with 5 cerclage wires noted in the mid-upper sternum/manubrium along with screw-plate devices along the mid-inferior sternum/xiphoid process. Cerclage wires and hardware are grossly intact and not significantly changed in position. Three of the screws are seen at the inferior margin of the xiphoid within the adjacent soft tissues. The cardiac silhouette remains normal in size. Lungs are clear. Costophrenic angles are sharp. Chronic, healed left-sided rib fractures again noted. Partially imaged is posterior fusion hardware in the upper lumbar spine. Degenerative changes again seen throughout the dorsal spine. IMPRESSION: 1. Stable appearance of cerclage wires and screw-plate fixators in the sternum. Hardware is grossly intact. 2. No acute process is identified in the chest. [facility]/cdr Workstation ID: [id number] [facility] Radiology Study observation (narrative) [facility] XR Chest AP/PA and LATOrdere d By: William Gonzalez on 08-18-2022 [facility] Work Phone: TEG Platelet Mapping (Cardia c)on 08-03-2022 (AA-%Aggregation) AA Percent Aggregation 92.4 % 89.0 - 100.0 % [facility] (AA-%Inhibition) AA Percent Inhibition 7.6 % 0.0 - 11.0 % [facility] (ADP-% Aggregation) ADP Percent Aggregation 77.8 % Low 83.0 - 100.0 % [facility] (ADP-%Inhibition) ADP PERCENT INHIBITION 22.2 % High 0.0 - 17.0 % [facility] Interpretation and review of laboratory results Abnormal [facility] Maximum amplitude AA induced Resonance TEG (Bld) [Length] 56.8 mm 51.0 - 71.0 mm [facility] Maximum amplitude activator F induced Resonance TEG (Bld) [Length] 8.5 mm 2.0 - 19.0 mm [facility] Maximum amplitude ADP induced Resonance TEG (Bld) [Length] 49.2 mm 45.0 - 69.0 mm [facility] Maximum amplitude kaolin induced after addition of heparinase Resonance TEG (Bld) [Length] 60.8 mm 53.0 - 68.0 mm [facility] CBCon 07-07-2022 ABSOLUTE BAS 0.1 10*3/uL Normal 0.0-0.2 [facility] [place] Comment on above: Performed By: #### C MPF, ACBC #### Testing performed at [address] [address] ABSOLUTE EOS 0.3 10*3/uL Normal 0.0-0.7 [facility] [place] Comment on above: Performed By: #### C MPF, ACBC #### Testing performed at [address] [place] [address] ABSOLUTE NEUTROPHIL COUNT 6.7 10*3/uL High 1.4-6.5 [facility] Comment on above: Performed By: #### C MPF, ACBC #### Testing performed at [address] [place] [address] Basophils/100 WBC (Bld) 0.6 % Normal 0.0-2.0 [facility] Comment on above: Performed By: #### C MPF, ACBC #### Testing performed at [address] [place] [address] DTYPE AUTO DIFF Normal [facility] Comment on above: Performed By: #### C MPF, ACBC #### Testing performed at [address] [place] [address] Eosinophils/100 WBC (Bld) 2.6 % Normal 0.0-11.0 [facility] Comment on above: Performed By: #### C MPF, ACBC #### Testing performed at [address] [address] Lymphocytes (Bld) [#/Vol] 2.6 10*3/uL Normal 1.2-3.4 [facility] Comment on above: Performed By: #### C MPF, ACBC #### Testing performed at [address] [place] [address] Lymphocytes/100 WBC (Bld) 24.9 % Normal 20.0-55.0 [facility] Comment on above: Performed By: #### C MPF, ACBC #### Testing performed at [address] [address] Monocytes (Bld) [#/Vol] 0.9 10*3/uL High 0.0-0.7 [facility] Comment on above: Performed By: #### C MPF, ACBC #### Testing performed at [address] [address] Monocytes/100 WBC (Bld) 8.8 % Normal 0.0-10.0 [facility] Comment on above: Performed By: #### C MPF, ACBC #### Testing performed at [address] [address] Neutrophils/100 WBC (Bld) 63.1 % Normal 37.0-75.0 [facility] Comment on above: Performed By: #### C MPF, ACBC #### Testing performed at [address] [address] Erythrocyte distribution width (RBC) [Ratio] 16.5 % High 11.5-14.5 [facility] Comment on above: Performed By: #### C MPF, ACBC #### Testing performed at [address] [address] Hematocrit (Bld) [Volume fraction] 44.7 % Normal 42.0-52.0 [facility] Comment on above: Performed By: #### C MPF, ACBC #### Testing performed at [address] [address] Hemoglobin (Bld) [Mass/Vol] 14.6 g/dL Normal 14.0-18.0 [facility] Comment on above: Performed By: #### C MPF, ACBC #### Testing performed at [address] [address] MCH (RBC) [Entitic mass] 28.6 pg Normal 26.0-35.0 [facility] Comment on above: Performed By: #### C MPF, ACBC #### Testing performed at [address] [address] MCHC (RBC) [Mass/Vol] 32.7 g/dL Normal 27.0-37.0 [facility] Comment on above: Performed By: #### C MPF, ACBC #### Testing performed at [address] [address] MCV (RBC) [Entitic vol] 87.5 fL Normal 80.0-100.0 [facility] Comment on above: Performed By: #### C MPF, ACBC #### Testing performed at [address] [address] Platelet mean volume (Bld) [Entitic vol] 8.6 fL Normal 7.4-11.0 [facility] Comment on above: Performed By: #### C MPF, ACBC #### Testing performed at [address] [address] Platelets (Bld) [#/Vol] 198 10*3/uL Normal 130.0-400.0 [facility] Comment on above: Performed By: #### C MPF, ACBC #### Testing performed at [address] [address] RBC (Bld) [#/Vol] 5.11 10*6/uL Normal 4.0-6.1 [facility] Comment on above: Performed By: #### C MPF, ACBC #### Testing performed at [address] [address] WBC (Bld) [#/Vol] 10.6 10*3/uL Normal 3.6-11.0 [facility] Comment on above: Performed By: #### C MPF, ACBC #### Testing performed at [address] [address] CBC, EDIF, PLATELETon 2022 ABSOLUTE BASOPHIL COUNT 0.1 10*3/uL 0.0 - 0.2 10*3/uL [facility] Basophils/100 WBC (Bld) 0.6 % 0.0 - 2.0 % [facility] Differential cell count method Nom (Bld) AUTO DIFF % [facility] Eosinophils (Bld) [#/Vol] 0.3 10*3/uL 0.0 - 0.7 10*3/uL [facility] Eosinophils/100 WBC (Bld) 2.6 % 0.0 - 11.0 % [facility] Erythrocyte distribution width (RBC) [Ratio] 16.5 % High 11.5 - 14.5 % [facility] Hematocrit (Bld) [Volume fraction] 44.7 % 42.0 - 52.0 % [facility] Hemoglobin (Bld) [Mass/Vol] 14.6 g/dL [facility] Interpretation and review of laboratory results Abnormal [facility] Lymphocytes (Bld) [#/Vol] 2.6 10*3/uL 1.2 - 3.4 10*3/uL [facility] Lymphocytes/100 WBC (Bld) 24.9 % 20.0 - 55.0 % [facility] MCH (RBC) [Entitic mass] 28.6 pg 26.0 - 35.0 PG [facility] MCHC (RBC) [Mass/Vol] 32.7 g/dL [facility] MCV (RBC) [Entitic vol] 87.5 fL [facility] Monocytes (Bld) [#/Vol] 0.9 10*3/uL High 0.0 - 0.7 10*3/uL [facility] Monocytes/100 WBC (Bld) 8.8 % 0.0 - 10.0 % [facility] Neutrophils (Bld) [#/Vol] 6.7 10*3/uL High 1.4 - 6.5 10*3/uL [facility] Neutrophils/100 WBC (Bld) 63.1 % 37.0 - 75.0 % [facility] Platelet mean volume (Bld) [Entitic vol] 8.6 fL [facility] Platelets (Bld) [#/Vol] 198 10*3/uL 130.0 - 400.0 10*3/uL [facility] RBC (Bld) [#/Vol] 5.11 10*6/uL 4.0 - 6.1 10*6/uL [facility] WBC (Bld) [#/Vol] 10.6 10*3/uL 3.6 - 11.0 10*3/uL [facility] CMP FASTINGon 07-07-2022 A:G RATIO 1.3 RATIO Normal 1.3-2.2 [facility] Comment on above: Performed By: #### C MPF, ACBC #### Testing performed at [address] [address] ALBUMIN 3.5 G/dl Normal 3.5-5.0 [facility] Comment on above: Performed By: #### C MPF, ACBC #### Testing performed at [address] [address] ALP [Catalytic activity/Vol] 75 U/L Normal 38-126 [facility] Comment on above: Performed By: #### C MPF, ACBC #### Testing performed at [address] [address] ALT [Catalytic activity/Vol] 22 U/L Normal 17-63 [facility] Comment on above: Performed By: #### C MPF, ACBC #### Testing performed at [address] [address] AST [Catalytic activity/Vol] 19 U/L Normal 15-41 [facility] Comment on above: Performed By: #### C MPF, ACBC #### Testing performed at [address] [address] Bilirubin [Mass/Vol] 0.4 mg/dL Normal 0.2-1.2 [facility] Comment on above: Performed By: #### C MPF, ACBC #### Testing performed at [address] [address] Calcium [Mass/Vol] 8.5 mg/dL Normal 8.4-10.2 [facility] Comment on above: Performed By: #### C MPF, ACBC #### Testing performed at [address] [address] Chloride [Moles/Vol] 106 mmol/L Normal 98-107 [facility] Comment on above: Performed By: #### C MPF, ACBC #### Testing performed at [address] [address] CO2 [Moles/Vol] 26 mmol/L Normal 22-30 [facility] Comment on above: Performed By: #### C CHRISTINE PERALTA #### Testing performed at [address] [address] Creatinine [Mass/Vol] 1.04 mg/dL Normal 0.66-1.25 [facility] Comment on above: Performed By: #### C CHRISTINE PERALTA #### Testing performed at [address] [address] EST. GFR, 92 ml/min/1.73sq.m [facility] Comment on above: Performed By: #### C CHRISTINE PERALTA #### Testing performed at [address] [address] EST. GFR,Non 76 ml/min/1.73sq.m [facility] Comment on above: Performed By: #### C CHRISTINE PERALTA #### Testing performed at [address] [address] GFR Information Average GFR for 60-6 9 years old = 85. Normal [facility] Comment on above: Result Comment: Credit Authorizer altagracia Kidney disease, GFR = <60. Kidney failure, GFR = <15. The GFR estimate is not adjusted for extreme body surface area or acute process, nor has it been validated for women or ethnic groups other than and . Performed By: #### C CHRISTINE PERALTA #### Testing performed at [address] [address] Glucose [Mass/Vol] 103 mg/dL High 70-100 [facility] Comment on above: Result Comment: NORMAL <100 mg/dL PREDIABETES 101-126 mg/dL DIABETES 126 mg/dL or higher Performed By: #### C CHRISTINE PERALTA #### Testing performed at [address] [address] Potassium [Moles/Vol] 3.7 mmol/L Normal 3.5-5.1 [facility] Comment on above: Performed By: #### C CHRISTINE PERALTA #### Testing performed at [address] [address] Protein [Mass/Vol] 6.2 g/dL Low 6.3-8.2 [facility] Comment on above: Performed By: #### C MPF, ACBC #### Testing performed at [address] [address] Sodium [Moles/Vol] 139 mmol/L Normal 136-145 [facility] Comment on above: Performed By: #### C MPF, ACBC #### Testing performed at [address] [address] Urea nitrogen [Mass/Vol] 11 mg/dL Normal 7-20 [facility] Comment on above: Performed By: #### C MPF, ACBC #### Testing performed at [address] [address] COMPREHENSIVE METABOLIC PANE Rashel 07-07-2022 Albumin [Mass/Vol] 3.5 G/dl 3.5 - 5.0 G/dl [facility] Albumin/Globulin [Mass ratio] 1.3 {ratio} [facility] ALP [Catalytic activity/Vol] 75 U/L [facility] ALT [Catalytic activity/Vol] 22 U/L [facility] AST [Catalytic activity/Vol] 19 U/L [facility] Bilirubin [Mass/Vol] 0.4 mg/dL [facility] Calcium [Mass/Vol] 8.5 mg/dL [facility] Chloride [Moles/Vol] 106 mmol/L [facility] CO2 [Moles/Vol] 26 mmol/L [facility] Creatinine [Mass/Vol] 1.04 mg/dL [facility] GFR COMMENT Average GFR for 60-6 9 years old = 85. [facility] Comment on above: Chronic Kidney disea se, GFR = <60. Kidney failure, GFR = <15. The GFR estimate is not adjusted for extreme body surface area or acute process, nor has it been validated for women or ethnic groups other than and . GFR/1.73 sq M.predicted among blacks MDRD (S/P/Bld) [Vol rate/Area] 92 mL/min/{1.73_m2} ml/min/1.73sq. m [facility] GFR/1.73 sq M.predicted among non-blacks MDRD (S/P/Bld) [Vol rate/Area] 76 mL/min/{1.73_m2} ml/min/1.73sq. m [facility] Glucose post fast [Mass/Vol] 103 mg/dL High [facility] Comment on above: NORMAL <100 mg/dL PREDIABETES 101-126 mg/dL DIABETES 126 mg/dL or higher Interpretation and review of laboratory results Abnormal [facility] Potassium [Moles/Vol] 3.7 mmol/L [facility] Protein [Mass/Vol] 6.2 g/dL Low [facility] Sodium [Moles/Vol] 139 mmol/L [facility] Urea nitrogen [Mass/Vol] 11 mg/dL [facility] CT CHEST ABDOMEN PELVIS WITH CONTRASTon 07-07-2022 CT CHEST ABDOMEN PELVIS WITH CONTRAST EXAM: CT CHEST ABDOMEN PELVIS WITH CONTRAST HISTORY: Fall 3 days ago; chronic back pain. COMPARISON: CTA chest dated 06/21/[address] chest/abdomen/pelvis dated 08/04/2017.. TECHNIQUE: CT chest/abdomen/pelvis with intravenous contrast. FINDINGS: CHEST: The heart size is within normal limits. 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 There are dense multivessel coronary artery calcifications. There are mild aortic valvular calcifications. There is no pericardial fluid or thickening. The pulmonary arteries are unremarkable. The ascending thoracic aorta is upper limits normal measuring 3.9 cm (sagittal image 69). The axial images are slightly obliqued to the longitudinal direction of the ascending thoracic aorta and overestimate the transverse dimension. There is mild atheromatous plaque along the thoracic aorta. There is mild atheromatous calcification at the origin of the great vessels off the aortic arch. There are is mild atheromatous calcification within the right subclavian artery at the origin of the right vertebral artery. There is no mediastinal hematoma. There is mild dependent atelectasis within the posterior chest. There are a few linear foci of atelectasis within the lingular segment of the left upper lobe. There is otherwise no consolidation or infiltrate. There is no pleural effusion. There are no suspicious masses or nodules within the chest. There are no pathologically enlarged axillary, mediastinal or hilar lymph nodes. The trachea, esophagus and thyroid gland are unremarkable There is no pneumothorax. The bony structures are osteopenic. There are stable ununited fractures of the left third through sixth ribs with associated nonbridging callus suggesting healing fractures. The vertebral body heights are maintained. There is no acute fracture along the thoracic spine. There are bulky flowing paravertebral ossifications along the thoracic spine with preservation of the disc space heights consistent with DISH. There are discogenic degenerative changes along the lower cervical spine. ABDOMEN/PELVIS: Stable 2.1 cm hypodense lesion at the dome of the liver measuring 3 Hounsfield units which most commonly represents a cyst. There is a new 0.5 cm hypodense lesion along the anterior margin of the inferior aspect of the right lobe of the liver which is too small to further characterize by computed tomography. The liver is fatty infiltrated. The gallbladder is partially contracted. The biliary tree is unremarkable. The pancreas and spleen are unremarkable. The bilateral adrenal glands are unremarkable. The left kidney is unremarkable. There is a stable 1.7 cm cyst along the posterior lateral margin of the midpole of the right kidney measuring 7 Hounsfield units. There is a moderate amount of stool within the colon. There are a few diverticula without diverticulitis. The appendix, distal esophagus, stomach and small bowel are unremarkable. The bowel gas pattern is nonobstructive. There are atheromatous calcifications along the abdominal aorta, iliac arteries, common femoral arteries and profunda femoral arteries. The inferior vena cava is unremarkable. There is no free air free fluid. There is no inflammatory process. There are no pathologically enlarged lymph nodes within the abdomen/pelvis. The distended unopacified urinary bladder is unremarkable. The prostate gland contains a a few calcifications however is not significantly enlarged. The bony structures are osteopenic. There are stable laminectomies and anterior and posterior fusion at L2-L3 with intact hardware. The vertebral body heights are maintained. There is no acute fracture. There are stable bilateral L5 pars defects without significant anterolisthesis of L5 on S1. There are stable degenerative changes throughout the lumbar spine. IMPRESSION: There is no acute cardiopulmonary process. There is no consolidation or infiltrate or pleural effusion. There is no acute intraperitoneal process. There is no solid organ injury. There is a stable 2.1 cm hypodense lesion at the dome of the liver which most commonly represents a cyst and a new 0.5 cm hypodense lesion along the anterior margin of the inferior aspect of the right lobe of the liver which is too small to further characterize by computed tomography. Stable 1.7 cm right renal cyst. Osseous findings as described in the body the report. There are stable ununited fractures of the left third through sixth ribs with associated nonbridging callus suggesting healing fractures. There is no pneumothorax. There is no acute fracture. Atherosclerotic disease as described. Normal [facility] CT Cervical spine WO contras ton 07-07-2022 IMPRESSION: 1. Multilevel degenerative changes of the cervical spine without evidence for an acute fracture or traumatic malalignment. RADIOLOGY EXAMINATION: CT SPIN E CERVICAL WITHOUT CONTRAST HISTORY: Fall COMPARISON: MRI cervical spine 11/03/2017. TECHNIQUE: CT Cervical spine without IV contrast. Coronal and sagittal reformations were performed. Dose reduction techniques were achieved by using automated exposure control and/or adjustment of mA and/or kV according to patient size and/or use of iterative reconstruction technique. FINDINGS: There is mild reversal of the normal cervical lordotic curvature. The vertebral body heights are preserved. The dens and atlantodens interval is intact. The ring of C1 is intact. Acute fractures are visualized. The posterior elements are intact. The prevertebral soft tissues appear unremarkable. The cervical spine alignment is maintained without evidence for significant spondylolisthesis. Multilevel degenerative disc disease visualized with the most advanced changes at the C5-C6 and C6-C7 levels. Disc osteophyte complexes visualized at the C5-C6 and C6-C7 levels with mild to moderate central canal narrowing. Multilevel facet arthropathy with uncovertebral joint degeneration contributing to multilevel neuroforaminal narrowing. Severe right and moderate left neuroforaminal narrowing at C3-C4. Moderate to severe left neuroforaminal narrowing at C4-C5. Severe right neuroforaminal narrowing at C5-C6. Moderate to severe left neuroforaminal narrowing at C6-C7. Imaged lung apices are clear. RADIOLOGY Jonathan George MD - 07/07/2022 EXAMINATION: CT SPINE CERVICAL WITHOUT CONTRAST HISTORY: Fall COMPARISON: MRI cervical spine 11/03/2017. TECHNIQUE: CT Cervical spine without IV contrast. Coronal and sagittal reformations were performed. Dose reduction techniques were achieved by using automated exposure control and/or adjustment of mA and/or kV according to patient size and/or use of iterative reconstruction technique. FINDINGS: There is mild reversal of the normal cervical lordotic curvature. The vertebral body heights are preserved. The dens and atlantodens interval is intact. The ring of C1 is intact. Acute fractures are visualized. The posterior elements are intact. The prevertebral soft tissues appear unremarkable. The cervical spine alignment is maintained without evidence for significant spondylolisthesis. Multilevel degenerative disc disease visualized with the most advanced changes at the C5-C6 and C6-C7 levels. Disc osteophyte complexes visualized at the C5-C6 and C6-C7 levels with mild to moderate central canal narrowing. Multilevel facet arthropathy with uncovertebral joint degeneration contributing to multilevel neuroforaminal narrowing. Severe right and moderate left neuroforaminal narrowing at C3-C4. Moderate to severe left neuroforaminal narrowing at C4-C5. Severe right neuroforaminal narrowing at C5-C6. Moderate to severe left neuroforaminal narrowing at C6-C7. Imaged lung apices are clear. IMPRESSION IMPRESSION: 1. Multilevel degenerative changes of the cervical spine without evidence for an acute fracture or traumatic malalignment. [facility] Radiology Study observation (narrative) [facility] CT Cervical spine WO contras tOrdered By: Jonathan George on 07-07-2022 [facility] Work Phone: CT Chest and Abdomen and Pel vis W contrast Jose Juan 07-07-2022 IMPRESSION: There is no acute cardiopulmonary process. There is no consolidation or infiltrate or pleural effusion. There is no acute intraperitoneal process. There is no solid organ injury. There is a stable 2.1 cm hypodense lesion at the dome of the liver which most commonly represents a cyst and a new 0.5 cm hypodense lesion along the anterior margin of the inferior aspect of the right lobe of the liver which is too small to further characterize by computed tomography. Stable 1.7 cm right renal cyst. Osseous findings as described in the body the report. There are stable ununited fractures of the left third through sixth ribs with associated nonbridging callus suggesting healing fractures. There is no pneumothorax. There is no acute fracture. Atherosclerotic disease as described. RADIOLOGY EXAM: CT CHEST ABDOM EN PELVIS WITH CONTRAST HISTORY: Fall 3 days ago; chronic back pain. COMPARISON: CTA chest dated 06/21/[address] chest/abdomen/pelvis dated 08/04/2017.. TECHNIQUE: CT chest/abdomen/pelvis with intravenous contrast. FINDINGS: CHEST: The heart size is within normal limits. 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 There are dense multivessel coronary artery calcifications. There are mild aortic valvular calcifications. There is no pericardial fluid or thickening. The pulmonary arteries are unremarkable. The ascending thoracic aorta is upper limits normal measuring 3.9 cm (sagittal image 69). The axial images are slightly obliqued to the longitudinal direction of the ascending thoracic aorta and overestimate the transverse dimension. There is mild atheromatous plaque along the thoracic aorta. There is mild atheromatous calcification at the origin of the great vessels off the aortic arch. There are is mild atheromatous calcification within the right subclavian artery at the origin of the right vertebral artery. There is no mediastinal hematoma. There is mild dependent atelectasis within the posterior chest. There are a few linear foci of atelectasis within the lingular segment of the left upper lobe. There is otherwise no consolidation or infiltrate. There is no pleural effusion. There are no suspicious masses or nodules within the chest. There are no pathologically enlarged axillary, mediastinal or hilar lymph nodes. The trachea, esophagus and thyroid gland are unremarkable There is no pneumothorax. The bony structures are osteopenic. There are stable ununited fractures of the left third through sixth ribs with associated nonbridging callus suggesting healing fractures. The vertebral body heights are maintained. There is no acute fracture along the thoracic spine. There are bulky flowing paravertebral ossifications along the thoracic spine with preservation of the disc space heights consistent with DISH. There are discogenic degenerative changes along the lower cervical spine. ABDOMEN/PELVIS: Stable 2.1 cm hypodense lesion at the dome of the liver measuring 3 Hounsfield units which most commonly represents a cyst. There is a new 0.5 cm hypodense lesion along the anterior margin of the inferior aspect of the right lobe of the liver which is too small to further characterize by computed tomography. The liver is fatty infiltrated. The gallbladder is partially contracted. The biliary tree is unremarkable. The pancreas and spleen are unremarkable. The bilateral adrenal glands are unremarkable. The left kidney is unremarkable. There is a stable 1.7 cm cyst along the posterior lateral margin of the midpole of the right kidney measuring 7 Hounsfield units. There is a moderate amount of stool within the colon. There are a few diverticula without diverticulitis. The appendix, distal esophagus, stomach and small bowel are unremarkable. The bowel gas pattern is nonobstructive. There are atheromatous calcifications along the abdominal aorta, iliac arteries, common femoral arteries and profunda femoral arteries. The inferior vena cava is unremarkable. There is no free air free fluid. There is no inflammatory process. There are no pathologically enlarged lymph nodes within the abdomen/pelvis. The distended unopacified urinary bladder is unremarkable. The prostate gland contains a a few calcifications however is not significantly enlarged. The bony structures are osteopenic. There are stable laminectomies and anterior and posterior fusion at L2-L3 with intact hardware. The vertebral body heights are maintained. There is no acute fracture. There are stable bilateral L5 pars defects without significant anterolisthesis of L5 on S1. There are stable degenerative changes throughout the lumbar spine. RADIOLOGY Rafa Knowles MD - 07/07/2022 EXAM: CT CHEST ABDOMEN PELVIS WITH CONTRAST HISTORY: Fall 3 days ago; chronic back pain. COMPARISON: CTA chest dated 06/21/[address] chest/abdomen/pelvis dated 08/04/2017.. TECHNIQUE: CT chest/abdomen/pelvis with intravenous contrast. FINDINGS: CHEST: The heart size is within normal limits. 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 There are dense multivessel coronary artery calcifications. There are mild aortic valvular calcifications. There is no pericardial fluid or thickening. The pulmonary arteries are unremarkable. The ascending thoracic aorta is upper limits normal measuring 3.9 cm (sagittal image 69). The axial images are slightly obliqued to the longitudinal direction of the ascending thoracic aorta and overestimate the transverse dimension. There is mild atheromatous plaque along the thoracic aorta. There is mild atheromatous calcification at the origin of the great vessels off the aortic arch. There are is mild atheromatous calcification within the right subclavian artery at the origin of the right vertebral artery. There is no mediastinal hematoma. There is mild dependent atelectasis within the posterior chest. There are a few linear foci of atelectasis within the lingular segment of the left upper lobe. There is otherwise no consolidation or infiltrate. There is no pleural effusion. There are no suspicious masses or nodules within the chest. There are no pathologically enlarged axillary, mediastinal or hilar lymph nodes. The trachea, esophagus and thyroid gland are unremarkable There is no pneumothorax. The bony structures are osteopenic. There are stable ununited fractures of the left third through sixth ribs with associated nonbridging callus suggesting healing fractures. The vertebral body heights are maintained. There is no acute fracture along the thoracic spine. There are bulky flowing paravertebral ossifications along the thoracic spine with preservation of the disc space heights consistent with DISH. There are discogenic degenerative changes along the lower cervical spine. ABDOMEN/PELVIS: Stable 2.1 cm hypodense lesion at the dome of the liver measuring 3 Hounsfield units which most commonly represents a cyst. There is a new 0.5 cm hypodense lesion along the anterior margin of the inferior aspect of the right lobe of the liver which is too small to further characterize by computed tomography. The liver is fatty infiltrated. The gallbladder is partially contracted. The biliary tree is unremarkable. The pancreas and spleen are unremarkable. The bilateral adrenal glands are unremarkable. The left kidney is unremarkable. There is a stable 1.7 cm cyst along the posterior lateral margin of the midpole of the right kidney measuring 7 Hounsfield units. There is a moderate amount of stool within the colon. There are a few diverticula without diverticulitis. The appendix, distal esophagus, stomach and small bowel are unremarkable. The bowel gas pattern is nonobstructive. There are atheromatous calcifications along the abdominal aorta, iliac arteries, common femoral arteries and profunda femoral arteries. The inferior vena cava is unremarkable. There is no free air free fluid. There is no inflammatory process. There are no pathologically enlarged lymph nodes within the abdomen/pelvis. The distended unopacified urinary bladder is unremarkable. The prostate gland contains a a few calcifications however is not significantly enlarged. The bony structures are osteopenic. There are stable laminectomies and anterior and posterior fusion at L2-L3 with intact hardware. The vertebral body heights are maintained. There is no acute fracture. There are stable bilateral L5 pars defects without significant anterolisthesis of L5 on S1. There are stable degenerative changes throughout the lumbar spine. IMPRESSION IMPRESSION: There is no acute cardiopulmonary process. There is no consolidation or infiltrate or pleural effusion. There is no acute intraperitoneal process. There is no solid organ injury. There is a stable 2.1 cm hypodense lesion at the dome of the liver which most commonly represents a cyst and a new 0.5 cm hypodense lesion along the anterior margin of the inferior aspect of the right lobe of the liver which is too small to further characterize by computed tomography. Stable 1.7 cm right renal cyst. Osseous findings as described in the body the report. There are stable ununited fractures of the left third through sixth ribs with associated nonbridging callus suggesting healing fractures. There is no pneumothorax. There is no acute fracture. Atherosclerotic disease as described. [facility] Radiology Study observation (narrative) [facility] CT SPINE CERVICAL WITHOUT CO NTRASTon 07-07-2022 CT SPINE CERVICAL WITHOUT CONTRAST EXAMINATION: CT SPINE CERVICAL WITHOUT CONTRAST HISTORY: Fall COMPARISON: MRI cervical spine 11/03/2017. TECHNIQUE: CT Cervical spine without IV contrast. Coronal and sagittal reformations were performed. Dose reduction techniques were achieved by using automated exposure control and/or adjustment of mA and/or kV according to patient size and/or use of iterative reconstruction technique. FINDINGS: There is mild reversal of the normal cervical lordotic curvature. The vertebral body heights are preserved. The dens and atlantodens interval is intact. The ring of C1 is intact. Acute fractures are visualized. The posterior elements are intact. The prevertebral soft tissues appear unremarkable. The cervical spine alignment is maintained without evidence for significant spondylolisthesis. Multilevel degenerative disc disease visualized with the most advanced changes at the C5-C6 and C6-C7 levels. Disc osteophyte complexes visualized at the C5-C6 and C6-C7 levels with mild to moderate central canal narrowing. Multilevel facet arthropathy with uncovertebral joint degeneration contributing to multilevel neuroforaminal narrowing. Severe right and moderate left neuroforaminal narrowing at C3-C4. Moderate to severe left neuroforaminal narrowing at C4-C5. Severe right neuroforaminal narrowing at C5-C6. Moderate to severe left neuroforaminal narrowing at C6-C7. Imaged lung apices are clear. IMPRESSION: 1. Multilevel degenerative changes of the cervical spine without evidence for an acute fracture or traumatic malalignment. Normal [facility] TROPONIN I, HIGH SENSITIVITY on 07-07-2022 TROPONIN I, HIGH SENSITIVITY 8 pg/mL Normal 0-20 [facility] Comment on above: Result Comment: Indeterminant: >12 to 100 pg/mL female >20 to 100 pg/mL male Indicative of myocardial injury. Serial sampling is recommended, a change of greater than or equal to 20 pg/mL is indicative of acute coronary syndrome. Performed By: #### T [facility] #### Testing performed at [address] [address] TROPONIN I, HIGH SENSITIVITY 8 pg/mL 0 - 20 pg/mL [facility] Comment on above: Indeterminant: >12 to 100 pg/mL female >20 to 100 pg/mL male Indicative of myocardial injury. Serial sampling is recommended, a change of greater than or equal to 20 pg/mL is indicative of acute coronary syndrome. [facility] XR HIP RIGHT 2 VIEWSon 07-07 XR HIP RIGHT 2 VIEWS EXAM: XR HIP RIGHT 2 VIEWS HISTORY: Pain/trauma COMPARISON: 02/28/2020 TECHNIQUE AND FINDINGS: Frontal view pelvis and 2 views of the right hip. No acute fracture lucency or dislocation. Moderate to severe osteoarthropathy of the right hip, similar to prior. A chronic osteochondral lesion at the superior aspect of the femoral head, better seen previously. Mild left hip arthropathy. Degenerative changes of the lower lumbar spine. Unremarkable soft tissues without radiopaque foreign body seen. IMPRESSION: 1. No evidence of pelvic or right hip fracture. 2. Moderate to severe osteoarthritis of the right hip, similar to prior. Normal [facility] XR Hip - right 2 Viewson IMPRESSION: 1. No evidence of pelvic or right hip fracture. 2. Moderate to severe osteoarthritis of the right hip, similar to prior. RADIOLOGY EXAM: XR HIP RIGHT 2 VIEWS HISTORY: Pain/trauma COMPARISON: 02/28/2020 TECHNIQUE AND FINDINGS: Frontal view pelvis and 2 views of the right hip. No acute fracture lucency or dislocation. Moderate to severe osteoarthropathy of the right hip, similar to prior. A chronic osteochondral lesion at the superior aspect of the femoral head, better seen previously. Mild left hip arthropathy. Degenerative changes of the lower lumbar spine. Unremarkable soft tissues without radiopaque foreign body seen. RADIOLOGY Mariela Whittaker M D - 07/07/2022 EXAM: XR HIP RIGHT 2 VIEWS HISTORY: Pain/trauma COMPARISON: 02/28/2020 TECHNIQUE AND FINDINGS: Frontal view pelvis and 2 views of the right hip. No acute fracture lucency or dislocation. Moderate to severe osteoarthropathy of the right hip, similar to prior. A chronic osteochondral lesion at the superior aspect of the femoral head, better seen previously. Mild left hip arthropathy. Degenerative changes of the lower lumbar spine. Unremarkable soft tissues without radiopaque foreign body seen. IMPRESSION IMPRESSION: 1. No evidence of pelvic or right hip fracture. 2. Moderate to severe osteoarthritis of the right hip, similar to prior. [facility] Radiology Study observation (narrative) [facility] XR Hip - right 2 ViewsOrdere d By: Mariela Whittaker on 07-07-2022 [facility] Work Phone: XR KNEE RIGHT 3 VIEWSon 06-18 XR KNEE RIGHT 3 VIEWS EXAM: XR KNEE RIGHT 3 VIEWS HISTORY: Fall. COMPARISON: None. TECHNIQUE: AP, crosstable lateral and oblique views of the right knee performed. FINDINGS: The bony structures are osteopenic. There is no acute fracture. There are moderate degenerative changes at the medial compartment of the femoral-tibial articulation with joint space narrowing and marginal osteophyte. There is a small enthesophyte at the patellar attachment of the quadriceps tendon. There is no joint effusion at the knee. There are numerous surgical clips medially. There are atheromatous calcifications within the femoral and popliteal arteries. There is a 1.2 cm rounded focus of peripheral calcification within the popliteal fossa and the possibility of a peripherally calcified popliteal artery aneurysm cannot be excluded. IMPRESSION: There is no acute fracture. There are moderate degenerative changes at the medial compartment of the femoral-tibial articulation. The bony structures are osteopenic. There are atheromatous calcifications within the femoral and popliteal arteries. There is a 1.2 cm rounded focus of peripheral calcification within the popliteal fossa and the possibility of a peripherally calcified popliteal artery aneurysm cannot be excluded. A scheduled CTA examination of the right lower extremity is recommended for more detailed evaluation. Normal [facility] XR Knee - right 3 Viewson IMPRESSION: There is no acute fracture. There are moderate degenerative changes at the medial compartment of the femoral-tibial articulation. The bony structures are osteopenic. There are atheromatous calcifications within the femoral and popliteal arteries. There is a 1.2 cm rounded focus of peripheral calcification within the popliteal fossa and the possibility of a peripherally calcified popliteal artery aneurysm cannot be excluded. A scheduled CTA examination of the right lower extremity is recommended for more detailed evaluation. RADIOLOGY EXAM: XR KNEE RIGHT 3 VIEWS HISTORY: Fall. COMPARISON: None. TECHNIQUE: AP, crosstable lateral and oblique views of the right knee performed. FINDINGS: The bony structures are osteopenic. There is no acute fracture. There are moderate degenerative changes at the medial compartment of the femoral-tibial articulation with joint space narrowing and marginal osteophyte. There is a small enthesophyte at the patellar attachment of the quadriceps tendon. There is no joint effusion at the knee. There are numerous surgical clips medially. There are atheromatous calcifications within the femoral and popliteal arteries. There is a 1.2 cm rounded focus of peripheral calcification within the popliteal fossa and the possibility of a peripherally calcified popliteal artery aneurysm cannot be excluded. RADIOLOGY Rafa Knowles MD - 07/07/2022 EXAM: XR KNEE RIGHT 3 VIEWS HISTORY: Fall. COMPARISON: None. TECHNIQUE: AP, crosstable lateral and oblique views of the right knee performed. FINDINGS: The bony structures are osteopenic. There is no acute fracture. There are moderate degenerative changes at the medial compartment of the femoral-tibial articulation with joint space narrowing and marginal osteophyte. There is a small enthesophyte at the patellar attachment of the quadriceps tendon. There is no joint effusion at the knee. There are numerous surgical clips medially. There are atheromatous calcifications within the femoral and popliteal arteries. There is a 1.2 cm rounded focus of peripheral calcification within the popliteal fossa and the possibility of a peripherally calcified popliteal artery aneurysm cannot be excluded. IMPRESSION IMPRESSION: There is no acute fracture. There are moderate degenerative changes at the medial compartment of the femoral-tibial articulation. The bony structures are osteopenic. There are atheromatous calcifications within the femoral and popliteal arteries. There is a 1.2 cm rounded focus of peripheral calcification within the popliteal fossa and the possibility of a peripherally calcified popliteal artery aneurysm cannot be excluded. A scheduled CTA examination of the right lower extremity is recommended for more detailed evaluation. [facility] Radiology Study observation (narrative) [facility] XR Knee - right 3 ViewsOrder ed By: Rafa Knowles on 07-07-2022 [facility] Work Phone: CT CHEST W WO CONTRASTon No acute cardiopulmonary process identified. Chronic changes as detailed above. This report has been created using voice recognition software. It may contain minor errors which are inherent in voice recognition technology. Final report electronically signed by Dr. Rolando Cuenca on 05/04/2022 4:06 PM [facility] Rolando Trivedi MD - 05/04/2022 PROCEDURE: CT CHEST W WO CONTRAST CLINICAL INFORMATION: Musculoskeletal chest pain, Exertional dyspnea, Essential hypertension, Pure hypercholesterolemia . TECHNIQUE: 5 mm images of the stress at [address] scans of the chest were done without and following Isovue-370 IV contrast. Sagittal and coronal reconstructions on the pre and postcontrast images are also submitted All CT scans at this facility use dose modulation, iterative reconstruction, and/or weight-based dosing when appropriate to reduce radiation dose to as low as reasonably achievable. COMPARISON: No prior study. FINDINGS: Heart and mediastinum Thyroid gland appears normal. There is no mediastinal or hilar adenopathy. Prior CABG. No pericardial effusion. Heart size is normal. Lungs. There are no infiltrates. There are no lung masses. There are no pleural effusions. CHEST WALL: There is no axillary lymphadenopathy. Midline sternotomy with persistent mild diastases of the sternum, prominent diastases at the xiphoid. Degenerative changes throughout the thoracic spine. 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 Upper abdomen Probable hepatic steatosis. 2 cm hepatic cyst right lobe of the liver. Adrenals are unremarkable. IMPRESSION: No acute cardiopulmonary process identified. Chronic changes as detailed above. This report has been created using voice recognition software. It may contain minor errors which are inherent in voice recognition technology. Final report electronically signed by Dr. Rolando Cuenca on 05/04/2022 4:06 PM [facility] Phone: Radiology Study observation (narrative) [facility] Phone: CT CHEST W WO CONTRASTOrdere d By: Rolando Cuenca on 05-04-2022 [facility] Phone: ANION GAPon 04-06-2022 Anion gap [Moles/Vol] 12.0 mmol/L Normal 8.0-16.0 [facility] Comment on above: Result Comment: ANIO N GAP = Sodium -(Chloride + CO2) Performed By: #### C BCWD, EGFR1, BMPX, OSMOL, NTBNP, ANION, TROPT #### [employer] [address] [place] [id number] BASIC METABOL PANELon 2021 Calcium [Mass/Vol] 9.1 mg/dL Normal 8.5-10.5 [facility] Comment on above: Performed By: #### C BCWD, EGFR1, BMPX, OSMOL, NTBNP, ANION, TROPT #### [address] [address] Chloride [Moles/Vol] 106 mmol/L Normal 98-111 [facility] Comment on above: Performed By: #### C BCWD, EGFR1, BMPX, OSMOL, NTBNP, ANION, TROPT #### [address] [address] CO2 [Moles/Vol] 24 mmol/L Normal 23-33 [facility] Comment on above: Performed By: #### C BCWD, EGFR1, BMPX, OSMOL, NTBNP, ANION, TROPT #### [place] [address] Creatinine [Mass/Vol] 1.0 mg/dL Normal 0.4-1.2 [facility] Comment on above: Performed By: #### C BCWD, EGFR1, BMPX, OSMOL, NTBNP, ANION, TROPT #### [place] [address] Glucose [Mass/Vol] 125 mg/dL High 70-108 [facility] Comment on above: Performed By: #### C BCWD, EGFR1, BMPX, OSMOL, NTBNP, ANION, TROPT #### [address] [address] POTASSIUM WITH REFLEX MG 4.8 meq/L Normal 3.5-5.2 [facility] Comment on above: Result Comment: Low level specimen hemolysis is present as indicated by the interference level index on the Flakito analyzer. The reported K+ level may be falsely increased. If clinically warranted, recollection of the specimen is suggested. Performed By: #### C BCWD, EGFR1, BMPX, OSMOL, NTBNP, ANION, TROPT #### [address] [address] Sodium [Moles/Vol] 142 mmol/L Normal 135-145 [facility] Comment on above: Performed By: #### C BCWD, EGFR1, BMPX, OSMOL, NTBNP, ANION, TROPT #### [place] [address] Urea nitrogen [Mass/Vol] 9 mg/dL Normal 7-22 [facility] Comment on above: Performed By: #### C BCWD, EGFR1, BMPX, OSMOL, NTBNP, ANION, TROPT #### [place] [address] CALCULATED OSMOLALITYon 03-18 Osmolality [Osmolality] 283.3 mosm/kg Normal 275.0-300.0 [facility] Comment on above: Performed By: #### E TOHS, HEPPA, LIPAS #### [place] [address] CBC WITH DIFFERENTIALon 03-18 ABS BASOPHILS 0.1 thou/mm3 Normal 0.0-0.1 [facility] Comment on above: Performed By: #### C BCWD, EGFR1, BMPX, OSMOL, NTBNP, ANION, TROPT #### [place] [address] ABS EOSINOPHILS 0.4 thou/mm3 Normal 0.0-0.4 [facility] Comment on above: Performed By: #### C BCWD, EGFR1, BMPX, OSMOL, NTBNP, ANION, TROPT #### [place] [address] ABS IMMATURE GRANS (IG) 0.16 thou/mm3 High 0.00-0.07 [facility] Comment on above: Performed By: #### C BCWD, EGFR1, BMPX, OSMOL, NTBNP, ANION, TROPT #### [place] [address] ABS LYMPHOCYTES 1.9 thou/mm3 Normal 1.0-4.8 [facility] Comment on above: Performed By: #### C BCWD, EGFR1, BMPX, OSMOL, NTBNP, ANION, TROPT #### [place] [address] ABS MONOCYTES 0.7 thou/mm3 Normal 0.4-1.3 [facility] Comment on above: Performed By: #### C BCWD, EGFR1, BMPX, OSMOL, NTBNP, ANION, TROPT #### [place] [address] ABS NEUTROPHILS 4.1 thou/mm3 Normal 1.8-7.7 [facility] Comment on above: Performed By: #### C BCWD, EGFR1, BMPX, OSMOL, NTBNP, ANION, TROPT #### [place] [address] Basophils/100 WBC (Bld) 1.1 % Normal [facility] Comment on above: Performed By: #### C BCWD, EGFR1, BMPX, OSMOL, NTBNP, ANION, TROPT #### [place] [address] Eosinophils/100 WBC (Bld) 6.0 % Normal [facility] Comment on above: Performed By: #### C BCWD, EGFR1, BMPX, OSMOL, NTBNP, ANION, TROPT #### [place] [address] Erythrocyte distribution width (RBC) [Ratio] 17.0 % High 11.5-14.5 [facility] Comment on above: Performed By: #### C BCWD, EGFR1, BMPX, OSMOL, NTBNP, ANION, TROPT #### [place] [address] Hematocrit (Bld) [Volume fraction] 45.9 % Normal 42.0-52.0 [facility] Comment on above: Performed By: #### C BCWD, EGFR1, BMPX, OSMOL, NTBNP, ANION, TROPT #### [place] [address] Hemoglobin (Bld) [Mass/Vol] 14.3 g/dL Normal 14.0-18.0 [facility] Comment on above: Performed By: #### C BCWD, EGFR1, BMPX, OSMOL, NTBNP, ANION, TROPT #### [place] [address] IMMATURE GRANS (IG) 2.2 % Normal [facility] Comment on above: Performed By: #### C BCWD, EGFR1, BMPX, OSMOL, NTBNP, ANION, TROPT #### [address] [address] Lymphocytes/100 WBC (Bld) 25.5 % Normal [facility] Comment on above: Performed By: #### C BCWD, EGFR1, BMPX, OSMOL, NTBNP, ANION, TROPT #### [address] [address] MCH (RBC) [Entitic mass] 26.6 pg Normal 26.0-33.0 [facility] Comment on above: Performed By: #### C BCWD, EGFR1, BMPX, OSMOL, NTBNP, ANION, TROPT #### [address] [address] MCHC (RBC) [Mass/Vol] 31.2 g/dL Low 32.2-35.5 [facility] Comment on above: Performed By: #### C BCWD, EGFR1, BMPX, OSMOL, NTBNP, ANION, TROPT #### [address] [address] MCV (RBC) [Entitic vol] 85.5 fL Normal 80.0-94.0 [facility] Comment on above: Performed By: #### C BCWD, EGFR1, BMPX, OSMOL, NTBNP, ANION, TROPT #### [address] [address] Monocytes/100 WBC (Bld) 9.7 % Normal [facility] Comment on above: Performed By: #### C BCWD, EGFR1, BMPX, OSMOL, NTBNP, ANION, TROPT #### [address] [address] Neutrophils/100 WBC (Bld) 55.5 % Normal [facility] Comment on above: Performed By: #### C BCWD, EGFR1, BMPX, OSMOL, NTBNP, ANION, TROPT #### [address] [address] NRBC 0 /100 wbc Normal [facility] Comment on above: Performed By: #### C BCWD, EGFR1, BMPX, OSMOL, NTBNP, ANION, TROPT #### [place] [address] PLATELET 214 thou/mm3 Normal 130-400 [facility] Comment on above: Performed By: #### C BCWD, EGFR1, BMPX, OSMOL, NTBNP, ANION, TROPT #### [place] [address] Platelet mean volume (Bld) [Entitic vol] 10.1 fL Normal 9.4-12.4 [facility] Comment on above: Performed By: #### C BCWD, EGFR1, BMPX, OSMOL, NTBNP, ANION, TROPT #### [place] [address] RBC 5.37 mill/mm3 Normal 4.70-6.10 [facility] Comment on above: Performed By: #### C BCWD, EGFR1, BMPX, OSMOL, NTBNP, ANION, TROPT #### [place] [address] RDW-SD 52.0 fL High 35.0-45.0 [facility] Comment on above: Performed By: #### C BCWD, EGFR1, BMPX, OSMOL, NTBNP, ANION, TROPT #### [place] [address] WBC 7.3 thou/mm3 Normal 4.8-10.8 [facility] Comment on above: Performed By: #### C BCWD, EGFR1, BMPX, OSMOL, NTBNP, ANION, TROPT #### [place] [address] DRUG ABUSE SCREENon 04-06-20 22 AMPHETAMINE/METHAMPH Negative Normal NEGATIVE [facility] Comment on above: Performed By: #### E TOHS, HEPPA, LIPAS #### [place] [address] BARBITURATE Negative Normal NEGATIVE [facility] Comment on above: Performed By: #### E TOSARAH HEPPA, LIPAS #### [facility] [address] [place] [address] Benzodiazepines Ql (U) Negative Normal NEGATIVE [facility] Comment on above: Performed By: #### E TOSARAH, HEPPA, LIPAS #### [facility] [address] [place] [address] Cannabinoids Screen Ql (U) Negative Normal NEGATIVE [facility] Comment on above: Performed By: #### E TOSARAH HEPPA, LIPAS #### [facility] [address] [place] [address] COCAINE METABOLITE Negative Normal NEGATIVE [facility] Comment on above: Performed By: #### E TOSARAH HEPPA, LIPAS #### [facility] [address] [place] [address] FENTANYL Negative Normal NEGATIVE [facility] Comment on above: Result Comment: A N egative result for a drug abuse screen test indicates that the drug concentration is below the following cutoffs: Amphetamine/Methamphetamine 1000 ng/ml Barbiturate 200 ng/ml Benzodiazapine 200 ng/ml Cannabinoids 50 ng/ml Cocaine Metabolite 300 ng/ml Opiates 300 ng/ml Oxycodone 100 ng/ml Phencyclidine 25 ng/ml Fentanyl 5 ng/ml A Positive result for a drug abuse screen test should be considered presumptive positive until/unless confirmed by another method. (Additional request) Quantitative values from a reference laboratory are available upon additional request. These results are for medical use only. Performed By: #### E TOSARAH HEPPA, LIPAS #### [facility] [address] [place] [address] Opiates Ql (U) Positive Normal NEGATIVE [facility] Comment on above: Performed By: #### E TOSARAH HEPPA, LIPAS #### [facility] [address] [place] [address] OXYCODONE Negative Normal NEGATIVE [facility] Comment on above: Performed By: #### E TOSARAH HEPPA, LIPAS #### [facility] [address] [place] [address] Phencyclidine Ql (U) Negative Normal NEGATIVE [facility] Comment on above: Performed By: #### E LYNDSAY LUCAS LIPAS #### [facility] [address] [place] [address] EKG 12-LEADon 04-06-2022 EKG 12-LEAD 74 74 174 80 362 401 59 49 85 Normal sinus rhythm Nonspecific T wave abnormality Abnormal ECG No previous ECGs available Confirmed by MCKENZIE PIÑA MD ([id number]) on 04/06/2022 10:15:42 AM [email or web address] RetrieveTestByDateTime ?OkriaooHW=[id number]&D ate=06-04-2022&Time=09 %3a13%3a05%3a00&TestTy pe=ECG&Site=3&OutputTy pe=PDF&Ext=PDF Normal [facility] ETHYL ALCOHOL BLOODon 2021 ETHYL ALCOHOL BLOOD < 0.01 Normal 0.00 [facility] Comment on above: Performed By: #### E LYNDSAY LUCAS LIPAS #### [facility] [address] [place] [address] GFR, ESTIMATEDon 04-06-2022 GFR/1.73 sq M.predicted MDRD (S/P/Bld) [Vol rate/Area] mL/min/{1.73_m2} Normal >60 [facility] Comment on above: Result Comment: Pedi atric calculator link https://www.kidney.org/professionals/kdoqi/gfr_calculatorped Effective Feb 16, 2022 These results are not intended for use in patients <18 years of age. eGFR results are calculated without a race factor using the 2020 CKD-EPI equation. Careful clinical correlation is recommended, particularly when comparing to results calculated using previous equations. The CKD-EPI equation is less accurate in patients with extremes of muscle mass, extra-renal metabolism of creatinine, excessive creatine ingestion, or following therapy that affects renal tubular secretion. Performed By: #### C BCWD, EGFR1, BMPX, OSMOL, NTBNP, ANION, TROPT #### [employer] [address] [place] [address] HEPATIC FUNCTION PANELon Albumin [Mass/Vol] 3.8 g/dL Normal 3.5-5.1 [facility] Comment on above: Performed By: #### E TOSARAH HEPPA, LIPAS #### [facility] [address] [place] [address] ALP [Catalytic activity/Vol] 112 U/L Normal 38-126 [facility] Comment on above: Performed By: #### E TOSARAH HEPPA, LIPAS #### [facility] [address] [place] [address] ALT [Catalytic activity/Vol] 33 U/L Normal 11-66 [facility] Comment on above: Performed By: #### E TOSAARH HEPPA, LIPAS #### [facility] [address] [place] [address] AST [Catalytic activity/Vol] 27 U/L Normal 5-40 [facility] Comment on above: Performed By: #### E TOSARAH HEPPA, LIPAS #### [facility] [address] [place] [address] Bilirubin [Mass/Vol] 0.3 mg/dL Normal 0.3-1.2 [facility] Comment on above: Performed By: #### E TOSARAH HEPPA, LIPAS #### [employer] [address] [place] [address] Bilirubin.indirect [Mass/Vol] mg/dL Normal 0.0-0.3 [facility] Comment on above: Performed By: #### E TOSARAH HEPPA, LIPAS #### [facility] [address] [place] [address] Protein [Mass/Vol] 6.8 g/dL Normal 6.1-8.0 [facility] Comment on above: Performed By: #### E TOSARAH HEPPA, LIPAS #### [facility] [address] [place] [address] LIPASEon 04-06-2022 Lipase [Catalytic activity/Vol] 27.5 U/L Normal 5.6-51.3 [facility] Comment on above: Performed By: #### E TOSARAH HEPPA, LIPAS #### [facility] [address] [place] [address] NT PRO-B NATRIURETIC PEPTIDE on 04-06-2022 Natriuretic peptide B (Bld) [Mass/Vol] 75.1 pg/mL Normal 0.0-900.0 [facility] Comment on above: Result Comment: Valu es < 300 pg/ml rule out, or make the probability of heart failure highly unlikely. Values which rule in heart failue are as follows: AGE RANGE <50 years >450 pg/ml 50-75 years >900 pg/ml >75 years >1800 pg/ml Performed By: #### C BCWD, EGFR1, BMPX, OSMOL, NTBNP, ANION, TROPT #### [place] [address] SARS-COV-2 & INFLUENZA A/Bon 04-06-2022 INFLUENZA A, RT-PCR Not detected Normal NOT DETECTED [facility] Comment on above: Performed By: #### E TOHS, HEPPA, LIPAS #### [facility] [address] [place] [address] INFLUENZA B, RT-PCR Not detected Normal NOT DETECTED [facility] Comment on above: Performed By: #### E TOHS, HEPPA, LIPAS #### [facility] [address] [place] [address] SARS-CoV-2 (COVID-19) RNA IGOR+probe Ql (Unsp spec) Not detected Normal NOT DETECTED [facility] Comment on above: Result Comment: Not Detected results do not preclude SARS-CoV-2 infection and should not be used as the sole basis for patient management decisions. Results must be combined with clinical observations, patient history, and epidemiological information. Testing was performed using BRADY Marimar SARS-CoV-2 and Influenza A/B nucleic acid assay. This test is a multiplex Real-Time Reverse Transcriptase Polymerase Chain Reaction (RT-PCR)-based in vitro diagnostic test intended for the qualitative detection of nucleic acids from SARS-CoV-2, influenza A, and influenza B in nasopharyngeal and nasal swab specimens for use under the FDA?s Emergency Use Authorization (EUA) only. Fact sheet for Healthcare Providers: https://www.fda.gov/media/338048/download Fact sheet for Patients: https://www.fda.gov/media/651082/download Performed By: #### E LYNDSAY LUCAS LIPAS #### [address] [address] TROPONIN-Ton 04-06-2022 TROPONIN-T < 0.010 Normal [facility] Comment on above: Result Comment: <0.0 10 ng/ml Normal > or = 0.010 ng/ml Elevated (99%) Consistent with myocardial damage Cardiac troponin values can be elevated by many disease states in addition to acute ischemia. These include, but are not limited to: chronic renal failure, CHF, CVA, pulmonary embolus, COPD, myocardial trauma/surgery, myocarditis, pericarditis, tachycardia, aortic dissection, amyloidosis, sepsis and strenuous exercise. Serial measurement of troponin is strongly recommended as a first step in determining whether a low level elevation represents an acute or chronic condition. Performed By: #### E LYNDSAY LUCAS LIPAS #### [address] [address] TROPONIN-T < 0.010 Normal [facility] Comment on above: Result Comment: <0.0 10 ng/ml Normal > or = 0.010 ng/ml Elevated (99%) Consistent with myocardial damage Cardiac troponin values can be elevated by many disease states in addition to acute ischemia. These include, but are not limited to: chronic renal failure, CHF, CVA, pulmonary embolus, COPD, myocardial trauma/surgery, myocarditis, pericarditis, tachycardia, aortic dissection, amyloidosis, sepsis and strenuous exercise. Serial measurement of troponin is strongly recommended as a first step in determining whether a low level elevation represents an acute or chronic condition. Performed By: #### C BCWD, EGFR1, BMPX, OSMOL, NTBNP, ANION, TROPT #### [address] [address] URINE REFLEX C + Son 022 Bilirubin Ql (U) Negative Normal NEGATIVE [facility] Comment on above: Performed By: #### U R_CS #### [address] [address] CHARACTER CLEAR Normal CLEAR-SL CLOUD [facility] Comment on above: Performed By: #### U R_CS #### [address] [address] Color (U) YELLOW Normal STRAW-YELLOW [facility] Comment on above: Performed By: #### U R_CS #### [address] [address] Glucose Ql (U) Negative Normal NEGATIVE [facility] Comment on above: Performed By: #### U R_CS #### [address] [address] Hemoglobin Ql (U) Negative Normal NEGATIVE [facility] Comment on above: Performed By: #### U R_CS #### [address] [address] Ketones Ql (U) Negative Normal NEGATIVE [facility] Comment on above: Performed By: #### U R_CS #### [address] [address] LEUKOCYTES Negative Normal NEGATIVE [facility] Comment on above: Performed By: #### U R_CS #### [address] [address] Nitrite Ql (U) Negative Normal NEGATIVE [facility] Comment on above: Performed By: #### U R_CS #### [address] [address] pH (U) 6.0 [pH] Normal 5.0 - 9.0 [facility] Comment on above: Performed By: #### U R_CS #### [address] [address] Protein Ql (U) Negative Normal NEGATIVE [facility] Comment on above: Performed By: #### U R_CS #### [address] [address] Specific gravity (U) [Rel density] 1.015 Normal 1.002-1.030 [facility] Comment on above: Performed By: #### U R_CS #### [address] [address] Urobilinogen Qn (U) 0.2 {Eemrald'U}/dL Normal 0.0 - 1. 0 [facility] Comment on above: Performed By: #### U R_CS #### [facility] [address] [place] [address] MONITORED CARDIAC REHAB SESS IONOrdered By: Haritha Leon on 01-28-2022 ANGINA N [facility] ENDING HR 85 [facility] EXT - ADMIT TO CR DATE 02/10/2021 [facility] Max HR 100 [facility] Max Mets 2.8 [facility] MODE Treadmill [facility] RESTING HR 84 [facility] SESSION DATE 01/28/2022 [facility] SESSION DAYS [facility] SESSION LENGTH 0:46:12 [facility] SESSION LIST Session List: 12/26/202112/29/202112/31/202101/02/202201/05/202201/07/202201/09/202201/12/202201/14/202201/15/202201/21/202201/22/202201/26/2022N 1.01/28/2022Y Scheduled:14 Attended:1 Compliance:7% [facility] SESSION NUMBER 1 [facility] SESSION THR 114 [facility] STATUS Cardiac Phase II [facility] ECG 12 [place] 12-25-2021 Atrial Rate [facility] [place] [facility] P-R Interval [facility] Q-T Interval [facility] Q-T Interval (corrected) [facility] QRS Duration [facility] QTC Calculation (Bezet) [facility] R [place] [facility] T [place] [facility] Ventricular Rate [facility] ECG 12 [place] 10-30-2021 Atrial Rate [facility] P [place] [facility] P-R Interval [facility] Q-T Interval [facility] Q-T Interval (corrected) [facility] QRS Duration [facility] QTC Calculation (Bezet) [facility] R [place] [facility] T [place] [facility] Ventricular Rate [facility] Basic Metabolic Panelon Anion gap [Moles/Vol] 8 mmol/L Low 9 - 17 mmol/L [facility] Calcium [Mass/Vol] 9.3 mg/dL 8.6 - 10. 4 mg/dL [facility] Chloride [Moles/Vol] 106 mmol/L 98 - 10 7 mmol/L [facility] CO2 [Moles/Vol] 27 mmol/L 20 - 31 mmol/L [facility] Creatinine [Mass/Vol] 0.91 mg/dL 0.70 - 1.20 mg/dL [facility] GFR >60 >60 mL/min [facility] GFR Non- >60 >60 mL/min [facility] Glucose [Mass/Vol] 98 mg/dL 70 - 99 mg/dL [facility] Interpretation and review of laboratory results Abnormal [facility] Potassium [Moles/Vol] 4.2 mmol/L 3.7 - 5.3 mmol/L [facility] Sodium [Moles/Vol] 141 mmol/L 135 - 144 mmol/L [facility] Urea nitrogen (BldV) [Mass/Vol] 13 mg/dL 8 - 23 mg/dL [facility] Urea nitrogen/Creatinine (Bld) [Mass ratio] 14 [facility] Basic Metabolic Profon 10-21 (cont.) Normal [facility] Comment on above: Result Comment: Aver age GFR for 60-69 years old: 85 mL/min/1.73sq m Chronic Kidney Disease: <60 mL/min/1.73sq m Kidney failure: <15 mL/min/1.73sq m eGFR calculated using average adult body mass. Additional eGFR calculator available at: http://www.[employer]/multiple_crcl_2012.htm Performed By: #### T MIGUELINA MATHEWS, CDP #### [facility] [address] [place] [address] Roll Panner: Benigno Prakash MD Anion gap [Moles/Vol] 8 mmol/L Low - [facility] Comment on above: Performed By: #### T MIGUELINA MATHEWS, CDP #### [facility] [address] [place] [address] Roll Panner: Benigno Prakash MD BUN/CRE Ratio 14 Normal - [facility] Comment on above: Performed By: #### T MIGUELINA MATHEWS, CDP #### [facility] [address] [place], [place] [id number] Roll Panner: Benigno Prakash MD Calcium [Mass/Vol] 9.3 mg/dL Normal 8.6-10.4 [facility] Comment on above: Performed By: #### T MIGUELINA MATHEWS, CDP #### [facility] [address] [place], [place] [id number] Roll Panner: Benigno Prakash MD Chloride [Moles/Vol] 106 mmol/L Normal 98-107 [facility] Comment on above: Performed By: #### T MIGUELINA MATHEWS, CDP #### [address] [place], [place] [phone] Roll Panner: Benigno Prakash MD CO2 [Moles/Vol] 27 mmol/L Normal 20-31 [place] Comment on above: Performed By: #### MIGUELINA GARCIA, CDP #### [facility] [address] [place] [address] Dr[place], [place] [id number] Roll Panner: Benigno Prakash MD Creatinine [Mass/Vol] 0.91 mg/dL Normal 0.70-1.20 [facility] Comment on above: Performed By: #### T MIGUELINA MATHEWS, CDP #### [facility] [address] [place] [address] [place], [place] [phone] Roll Panner: Benigno Prakash MD GFR, Amer >60 Normal >60 [facility] Comment on above: Performed By: #### T MIGUELINA MATHEWS, CDP #### [facility] [address] [place], [place] [phone] Roll Panner: Benigno Prakash MD GFR,non Amer >60 Normal >60 [facility] Comment on above: Performed By: #### MIGUELINA GARCIA, CDP #### [facility] [address] [place] [address] Roll Panner: Benigno Prakash MD Glucose [Mass/Vol] 98 mg/dL Normal 70-99 [facility] Comment on above: Performed By: #### T MIGUELINA MATHEWS, CDP #### [facility] [address] [place] [address] [place] [address] Roll Panner: Benigno Prakash MD Potassium [Moles/Vol] 4.2 mmol/L Normal 3.7-5.3 [facility] Comment on above: Performed By: #### MIGUELINA GARCIA, CDP #### [facility] [address] [place] [address] Roll Panner: Benigno Prakash MD Sodium [Moles/Vol] 141 mmol/L Normal 135-144 [facility] Comment on above: Performed By: #### MIGUELINA GARCIA, CDP #### [facility] [address] [place] [address] [place], [place] [phone] Roll Panner: Benigno Prakash MD Staging: Normal [facility] Comment on above: Result Comment: Stag e 1: Some kidney damage normal GFR Stage 2: Mild kidney damage GFR 60-89 Stage 3: Moderate kidney damage GFR 30-59 Stage 4: Severe kidney damage GFR 15-29 Stage 5: Severe kidney damage GFR <15 ESRD - chronic treatment by dialysis or transplant Performed By: #### MIGUELINA GARCIA, CDP #### [facility] [address] [place] [address] [place], [place] [phone] Roll Panner: Benigno Prakash MD Urea nitrogen [Mass/Vol] 13 mg/dL Normal 8-23 [facility] Comment on above: Performed By: #### MIGUELINA GARCIA, CDP #### [facility] [address] [place] [address] Roll Panner: Benigno Prakash MD CBC with Auto Differentialon 10-21-2021 Absolute Eos # 0.27 [facility] Absolute Immature Granulocyte 0.07 [facility] Absolute Lymph # 2.25 [facility] Absolute Mellette # 0.58 [facility] [facility] Basophils (Bld) [#/Vol] 0.03 10*3/uL [facility] Basophils/100 WBC (Bld) 0 % 0 - 2 % [facility] Eosinophils/100 WBC (Bld) 3 % 1 - 4 % [facility] Hematocrit (Bld) [Volume fraction] 45.6 % 40.7 - 50.3 % [facility] Hemoglobin (Bld) [Mass/Vol] 15.4 g/dL 13.0 - 17.0 g/dL [facility] Immature granulocytes/100 WBC (Bld) 1 % High 0 [facility] Interpretation and review of laboratory results Abnormal [facility] Lymphocytes/100 WBC (Bld) 29 % 24 - 43 % [facility] MCH (RBC) [Entitic mass] 30.7 pg 25.2 - 33.5 pg [facility] MCHC (RBC) [Mass/Vol] 33.8 g/dL 28.4 - 34.8 g/dL [facility] MCV (RBC) [Entitic vol] 91.0 fL 82.6 - 102.9 fL [facility] Monocytes/100 WBC (Bld) 7 % 3 - 12 % [facility] NRBC Automated 0.0 0.0 per 100 WBC [facility] Platelet distribution width (Bld) [Ratio] 13.2 % 11.8 - 14.4 % [facility] Platelet mean volume (Bld) [Entitic vol] 10.7 fL 8.1 - 13.5 fL [facility] Platelets (Bld) [#/Vol] 206 10*3/uL [facility] RBC (Bld) [#/Vol] 5.01 10*6/uL 4.21 - 5.7 7 m/uL [facility] Segmented neutrophils/100 WBC (Bld) 60 % 36 - 65 % [facility] Segs Absolute 4.70 [facility] WBC (Bld) [#/Vol] 7.9 10*3/uL [facility] CBC with Diffon 10-21-2021 Abs. Basophil 0.03 k/uL Normal 0.00-0.20 [facility] Comment on above: Performed By: #### T MIGUELINA MATHEWS, CDP #### [facility] [address] [place] [address] Roll Panner: Benigno Prakash MD Abs.Imm.Granulocyte 0.07 k/uL Normal 0.00-0.30 [facility] Comment on above: Performed By: #### MIGUELINA GARCIA, CDP #### [facility] [address] [place], [place] [address] Roll Panner: Benigno Prakash MD Abs.Neutrophil (Seg) 4.70 k/uL Normal 1.50-8.10 [facility] Comment on above: Performed By: #### MIGUELINA GARCIA, CDP #### [facility] [address] [place] [address] Roll Panner: Benigno Prakash MD Basophils/100 WBC (Bld) 0 % Normal 0-2 [facility] Comment on above: Performed By: #### MIGUELINA GARCIA, CDP #### [address] [place], [facility] Roll Panner: Benigno Prakash MD Eosinophils (Bld) [#/Vol] 0.27 10*3/uL Normal 0.00-0.44 [facility] Comment on above: Performed By: #### MIGUELINA GARCIA, CDP #### [address] [place], [place] [address] Roll Panner: Benigno Prakash MD Eosinophils/100 WBC (Bld) 3 % Normal 1-4 [facility] Comment on above: Performed By: #### MIGUELINA GARCIA, CDP #### [address] [place] [id number] Roll Panner: Benigno Prakash MD Erythrocyte distribution width (RBC) [Ratio] 13.2 % Normal 11.8-14.4 [facility] Comment on above: Performed By: #### T MIGUELINA MATHEWS, CDP #### [facility] [address] [place], [place] [id number] Roll Panner: Benigno Prakash MD Hematocrit (Bld) [Volume fraction] 45.6 % Normal 40.7-50.3 [facility] Comment on above: Performed By: #### MIGUELINA GARCIA, CDP #### [facility] [address] [place], [place] [id number] Roll Panner: Benigno Prakash MD Hemoglobin (Bld) [Mass/Vol] 15.4 g/dL Normal 13.0-17.0 [facility] Comment on above: Performed By: #### MIGUELINA GARCIA, CDP #### [address] [place], [place] [id number] Roll Panner: Benigno Prakash MD Immature granulocytes/100 WBC (Bld) 1 % High 0 [facility] Comment on above: Performed By: #### MIGUELINA GARCIA, CDP #### [address] [place], [place] [phone] Roll Panner: Benigno Prakash MD Lymphocytes (Bld) [#/Vol] 2.25 10*3/uL Normal 1.10-3.70 [facility] Comment on above: Performed By: #### MIGUELINA GARCIA, CDP #### [address] [place], [place] [id number] Roll Panner: Benigno Prakash MD Lymphocytes/100 WBC (Bld) 29 % Normal 24-43 [facility] Comment on above: Performed By: #### MIGUELINA GARCIA, CDP #### [address] [place] [address] Roll Panner: Benigno Prakash MD MCH (RBC) [Entitic mass] 30.7 pg Normal 25.2-33.5 [facility] Comment on above: Performed By: #### MIGUELINA GARCIA, CDP #### [facility] [address] [place], [place] [id number] Roll Panner: Benigno Prakash MD MCHC (RBC) [Mass/Vol] 33.8 g/dL Normal 28.4-34.8 [facility] Comment on above: Performed By: #### MIGUELINA GARCIA, CDP #### [facility] [address] [place], [facility]83 Roll Panner: Benigno Prakash MD MCV (RBC) [Entitic vol] 91.0 fL Normal 82.6-102.9 [facility] Comment on above: Performed By: #### MIGUELINA GARCIA, CDP #### [facility] [address] [place], [place] [address] Roll Panner: Benigno Prakash MD Monocytes (Bld) [#/Vol] 0.58 10*3/uL Normal 0.10-1.20 [facility] Comment on above: Performed By: #### MIGUELINA GARCIA, CDP #### [facility] [address] [place], [facility]83 Roll Panner: Benigno Prakash MD Monocytes/100 WBC (Bld) 7 % Normal 3-12 [facility] Comment on above: Performed By: #### MIGUELINA GARCIA, CDP #### [facility] [address] [place] [address] Roll Panner: Benigno Prakash MD Neutrophil (Seg) 60 % Normal 36-65 [facility] Comment on above: Performed By: #### T MIGUELINA MATHEWS, CDP #### [facility] [address] [place] [id number] Roll Panner: Benigno Prakash MD NRBC Automated 0.0 per 100 WBC Normal 0.0 [facility] Comment on above: Performed By: #### MIGUELINA GARCIA, CDP #### [facility] [address] [place] [facility] Roll Panner: Benigno Prakash MD Platelet mean volume (Bld) [Entitic vol] 10.7 fL Normal 8.1-13.5 [facility] Comment on above: Performed By: #### MIGUELINA GARCIA, CDP #### [facility] [address] [place] [id number] Roll Panner: Benigno Prakash MD Platelets (Bld) [#/Vol] 206 10*3/uL Normal 138-453 [facility] Comment on above: Performed By: #### MIGUELINA GARCIA, CDP #### [facility] [address] [place], [place] [id number] Roll Panner: Benigno Prakash MD RBC (Bld) [#/Vol] 5.01 10*6/uL Normal 4.21-5.77 [facility] Comment on above: Performed By: #### MIGUELINA GARCIA, CDP #### [facility] [address] [place], [place] [id number] Roll Panner: Benigno Prakash MD WBC (Bld) [#/Vol] 7.9 10*3/uL Normal 3.5-11.3 [facility] Comment on above: Performed By: #### MIGUELINA GARCIA, CDP #### [facility] [address] [place], [facility]83 Roll Panner: Benigno Prakash MD Laboratory - Chemistry and C hemistry - challengeon 10-21-2021 GFR/1.73 sq M.predicted MDRD (S/P/Bld) [Vol rate/Area] [facility] Comment on above: Average GFR for 60-6 9 years old: 85 mL/min/1.73sq m Chronic Kidney Disease: <60 mL/min/1.73sq m Kidney failure: <15 mL/min/1.73sq m eGFR calculated using average adult body mass. Additional eGFR calculator available at: http://[email or web address]_[email or web address].htm Stage 1: Some kidney damage normal GFR Stage 2: Mild kidney damage GFR 60-89 Stage 3: Moderate kidney damage GFR 30-59 Stage 4: Severe kidney damage GFR 15-29 Stage 5: Severe kidney damage GFR <15 ESRD - chronic treatment by dialysis or transplant Troponinon 10-21-2021 Troponin, High Sens 16 ng/L Normal 0-22 [facility] Comment on above: Result Comment: High Sensitivity Troponin values cannot be compared with other Troponin methodologies. Patients with high levels of Biotin oral intake (i.e >5mg/day) may have falsely decreased Troponin levels. Samples collected within 8 hours of biotin intake may require additional information for diagnosis. Performed By: #### T REID #### [facility] [address] [place] [address] Roll Panner: Benigno Prakash MD Troponin, High Sens 17 ng/L Normal 0-22 [facility] Comment on above: Result Comment: High Sensitivity Troponin values cannot be compared with other Troponin methodologies. Patients with high levels of Biotin oral intake (i.e >5mg/day) may have falsely decreased Troponin levels. Samples collected within 8 hours of biotin intake may require additional information for diagnosis. Performed By: #### T REID, BMP, CDP #### [facility] [address] [place] [address] Roll Panner: Benigno Prakash MD Troponin, High Sensitivity 16 ng/L 0 - 22 ng/L [facility] Comment on above: High Sensitivity Troponin values cannot be compared with other Troponin methodologies. Patients with high levels of Biotin oral intake (i.e >5mg/day) may have falsely decreased Troponin levels. Samples collected within 8 hours of biotin intake may require additional information for diagnosis. [facility] Troponin, High Sensitivity 17 ng/L 0 - 22 ng/L [facility] Comment on above: High Sensitivity Troponin values cannot be compared with other Troponin methodologies. Patients with high levels of Biotin oral intake (i.e >5mg/day) may have falsely decreased Troponin levels. Samples collected within 8 hours of biotin intake may require additional information for diagnosis. [facility] XR CHEST PORTABLEon 10-22-19 XR CHEST PORTABLE EXAMINATION: ONE XRAY VIEW OF THE CHEST 10/21/2021 9:16 am COMPARISON: 05/26/2018 HISTORY: ORDERING SYSTEM PROVIDED HISTORY: cp TECHNOLOGIST PROVIDED HISTORY: cp FINDINGS: Lungs are grossly clear aside from some minimal unchanged linear scarring at periphery of the left lung base. No pneumothorax or sizable pleural effusion. The inferior-most portion of the left costophrenic sulcus is excluded from the field of view limiting assessment for trace effusion. Heart size is within normal limits. Tortuous and atherosclerotic aorta. No acute bony findings. IMPRESSION: No acute pulmonary findings. Interpreted by: Caridad Eubanks DO Signed by: Caridad Eubanks DO 10/21/21 Final result Normal [facility] No acute pulmonary findings. [facility] EXAMINATION: ONE XRAY VIEW OF THE CHEST 10/21/2021 9:16 am COMPARISON: 05/26/2018 HISTORY: ORDERING SYSTEM PROVIDED HISTORY: cp TECHNOLOGIST PROVIDED HISTORY: cp FINDINGS: Lungs are grossly clear aside from some minimal unchanged linear scarring at periphery of the left lung base. No pneumothorax or sizable pleural effusion. The inferior-most portion of the left costophrenic sulcus is excluded from the field of view limiting assessment for trace effusion. Heart size is within normal limits. Tortuous and atherosclerotic aorta. No acute bony findings. [facility] Caridad Eubanks DO - 10/21/2021 EXAMINATION: ONE XRAY VIEW OF THE CHEST 10/21/2021 9:16 am COMPARISON: 05/26/2018 HISTORY: ORDERING SYSTEM PROVIDED HISTORY: cp TECHNOLOGIST PROVIDED HISTORY: cp FINDINGS: Lungs are grossly clear aside from some minimal unchanged linear scarring at periphery of the left lung base. No pneumothorax or sizable pleural effusion. The inferior-most portion of the left costophrenic sulcus is excluded from the field of view limiting assessment for trace effusion. Heart size is within normal limits. Tortuous and atherosclerotic aorta. No acute bony findings. IMPRESSION: No acute pulmonary findings. [employer] Phone: Radiology Study observation (narrative) [facility] [email or web address] Phone: XR CHEST PORTABLEOrdered By: Caridad Eubanks on 10-21-2021 [facility] [email or web address] Phone: CT CHEST WO IVCONon 09-17-[address] CHEST WO IVCON * * *Final Report* * * DATE OF EXAM: Sep 16 2020 1:15PM [facility] [place] / PROCEDURE REASON: HEMOPTYSIS * * * * Physician Interpretation * * * * RESULT: EXAMINATION: CHEST CT WITHOUT CONTRAST CLINICAL HISTORY: Hemoptysis Technique: Spiral CT acquisition of the chest from the thoracic inlet to the upper abdomen without contrast. MQ: [id number] CT Radiation dose: Integrated Dose-length product (DLP) for this visit = 576.05 mGy*cm CT Dose Reduction Employed: Automated exposure control (AEC) Comparison: None available RESULT: Limitations: Mild motion artifact. Lines, tubes, and devices: None. Lung parenchyma and airways: Bronchial wall thickening suggestive of bronchitis. Streaky scarring/discoid atelectasis is noted in bilateral lung bonner. Subcentimeter nodular opacities measuring less than 5 mm. For example: Left lower lobe (4:126). Right upper lobe (4:76) The central airways are patent. Pleural space: No pleural effusion. No pleural thickening. Lower neck, lymph nodes, and mediastinum: The imaged thyroid gland is normal. No lymphadenopathy in the supraclavicular, axillary, mediastinal, or hilar regions. Heart, pericardium, and thoracic vessels: The ascending thoracic aorta is ectatic measuring 4.2 cm in diameter. Main pulmonary artery is enlarged measuring 3.3 cm in diameter and can be associated with pulmonary hypertension. The heart is not enlarged. Atherosclerotic coronary artery calcifications are noted. No pericardial effusion or thickening. Bones and soft tissues: Bone island is noted in the left anterior sixth rib. Upper abdomen: No abnormality in the imaged upper abdomen. Administrative Specialist (topogram) images: No additional findings. IMPRESSION: 1. Bronchial wall thickening suggestive of bronchitis. 2. Streaky scarring/discoid atelectasis in the bilateral lower lung bonner. 3. Subcentimeter nodular opacities measuring up to 5 mm. Acuity: Incidental Finding: Solid: <6 mm (solitary or multiple) Routing Code: N/A Recommendation: No imaging follow-up is recommended Time Frame: N/A Comments: If there are risk factors for lung malignancy, a follow-up chest CT exam could be obtained in 12 months Transcribe Date/Time: Sep 17 2020 9:20A Dictated by: CASTRO PERSAUD MD This examination was interpreted and the report reviewed and electronically signed by: CASTRO PERSAUD MD on Sep 17 2020 10:42AM EST Thank you for allowing us to participate in the care of your patient. Should there be any questions regarding this interpretation, please call [phone]. If you are unable to reach us at the number above, please feel free to contact [facility] at [phone]. [id number] Normal [facility] Basic Metabolic Panel Reflex [facility] 08-09-2020 Anion gap [Moles/Vol] 10 mmol/L Normal 7-16 [facility] Calcium [Mass/Vol] 9.0 mg/dL Normal 8.6-10.2 [facility] Chloride [Moles/Vol] 100 mmol/L Normal 98-107 [facility] CO2 [Moles/Vol] 32 mmol/L High 22-29 [facility] Creatinine [Mass/Vol] 1.1 mg/dL Normal 0.7-1.2 [facility] GFR Calculated >60 Normal >=60 [facility] Comment on above: Result Comment: Credit Authorizer [employer]ia Kidney Disease: less than 60 ml/min/1.73 sq.m. Kidney Failure: less than 15 ml/min/1.73 sq.m. Results valid for patients 18 years and older. GFR/1.73 sq M.predicted among blacks MDRD (S/P/Bld) [Vol rate/Area] mL/min/{1.73_m2} Normal [facility] Glucose [Mass/Vol] 109 mg/dL High 74-99 [facility] Magnesium [Moles/Vol] 3.1 mmol/L Low 3.5-5.0 [facility] Sodium [Moles/Vol] 142 mmol/L Normal 132-146 [facility] Urea nitrogen [Mass/Vol] 20 mg/dL Normal 8-23 [facility] Basic Metabolic Panel w/ Ref paula to [facility] 08-09-2020 Anion gap [Moles/Vol] 10 mmol/L 7 - 16 mmol/L [facility] Phone: Calcium [Mass/Vol] 9.0 mg/dL 8.6 - 10. 2 mg/dL [facility] Phone: Chloride [Moles/Vol] 100 mmol/L 98 - 10 7 mmol/L [facility] Phone: CO2 [Moles/Vol] 32 mmol/L High 22 - 29 mmol/L [facility] Phone: Creatinine [Mass/Vol] 1.1 mg/dL 0.7 - 1.2 mg/dL [facility] Phone: GFR >60 [facility] [employer] Phone: GFR Non- >60 >=60 mL/min/1.73 [facility] Phone: Comment on above: Chronic Kidney Disea se: less than 60 ml/min/1.73 sq.m. Kidney Failure: less than 15 ml/min/1.73 sq.m. Results valid for patients 18 years and older. Glucose [Mass/Vol] 109 mg/dL High 74 - 99 mg/dL [facility] [employer] Phone: Interpretation and review of laboratory results Abnormal [facility] [employer] Phone: Potassium [Moles/Vol] 3.1 mmol/L Low 3.5 - 5.0 mmol/L [facility] Phone: Sodium [Moles/Vol] 142 mmol/L 132 - 146 mmol/L [facility] [employer] Phone: Urea nitrogen [Mass/Vol] 20 mg/dL 8 - 23 mg/dL [facility] Phone: CBC With Platelet and Differ entialon 08-09-2020 Abs Imm Granulocytes 0.03 E9/L Normal [facility] Absolute Basophils 0.03 E9/L Normal 0.00-0.20 [facility] Absolute Eosinophils 0.20 E9/L Normal 0.05-0.50 [facility] Absolute Lymphocytes 1.69 E9/L Normal 1.50-4.00 [facility] Absolute Monocytes 0.62 E9/L Normal 0.10-0.95 [facility] Absolute Neutrophils 4.38 E9/L Normal 1.80-7.30 [facility] Basophils/100 WBC (Bld) 0.4 % Normal 0.0-2.0 [facility] Eosinophils/100 WBC (Bld) 2.9 % Normal 0.0-6.0 [facility] Hematocrit (Bld) [Volume fraction] 44.2 % Normal 37.0-54.0 [facility] Hemoglobin (Bld) [Mass/Vol] 15.2 g/dL Normal 12.5-16.5 [facility] Imm Granulocytes 0.4 % Normal 0.0-5.0 [facility] Lymphocytes/100 WBC (Bld) 24.3 % Normal 20.0-42.0 [facility] MCH (RBC) [Entitic mass] 30.3 pg Normal 26.0-35.0 [facility] MCHC 34.4 % Normal 32.0-34.5 [facility] MCV (RBC) [Entitic vol] 88.0 fL Normal 80.0-99.9 [facility] Monocytes/100 WBC (Bld) 8.9 % Normal 2.0-12.0 [facility] Neutrophils/100 WBC (Bld) 63.1 % Normal 43.0-80.0 [facility] Platelet Count 193 E9/L Normal 130-450 [facility] Platelet mean volume (Bld) [Entitic vol] 10.4 fL Normal 7.0-12.0 [facility] RBC 5.02 E12/L Normal 3.80-5.80 [facility] RDW 12.8 fL Normal 11.5-15.0 [facility] WBC 7.0 E9/L Normal 4.5-11.5 [facility] CBC auto differentialon 03-2 6-2021 Basophils (Bld) [#/Vol] 0.03 10*3/uL [employer] Phone: Basophils/100 WBC (Bld) 0.4 % 0.0 - 2.0 % [employer] Phone: Eosinophils (Bld) [#/Vol] 0.20 10*3/uL [employer] Phone: Eosinophils/100 WBC (Bld) 2.9 % 0.0 - 6.0 % [employer] Phone: Erythrocyte distribution width (RBC) [Ratio] 12.8 fL 11.5 - 15.0 fL [employer] Phone: Hematocrit (Bld) [Volume fraction] 44.2 % 37.0 - 54.0 % [employer] Phone: Hemoglobin (Bld) [Mass/Vol] 15.2 g/dL 12.5 - 16.5 g/dL [employer] Phone: Immature granulocytes (Bld) [#/Vol] 0.03 10*3/uL E9/L [employer] Phone: Immature granulocytes/100 WBC (Bld) 0.4 % 0.0 - 5.0 % [employer] Phone: Lymphocytes (Bld) [#/Vol] 1.69 10*3/uL [employer] Phone: Lymphocytes/100 WBC (Bld) 24.3 % 20.0 - 42.0 % [employer] Phone: MCH (RBC) [Entitic mass] 30.3 pg 26.0 - 35.0 pg [employer] Phone: MCHC (RBC) [Mass/Vol] 34.4 % 32.0 - 34.5 % [employer] Phone: MCV (RBC) [Entitic vol] 88.0 fL 80.0 - 99.9 fL [employer] Phone: Monocytes (Bld) [#/Vol] 0.62 10*3/uL [employer] Phone: Monocytes/100 WBC (Bld) 8.9 % 2.0 - 12.0 % [employer] Phone: Neutrophils Absolute 4.38 [employer] Phone: Neutrophils/100 WBC (Bld) 63.1 % 43.0 - 80.0 % [employer] Phone: Platelet mean volume (Bld) [Entitic vol] 10.4 fL 7.0 - 12.0 fL [employer] Phone: Platelets (Bld) [#/Vol] 193 10*3/uL [employer] Phone: RBC (Bld) [#/Vol] 5.02 10*6/uL [employer] Phone: WBC (Bld) [#/Vol] 7.0 10*3/uL [employer] Phone: Magnesiumon 08-09-2020 Magnesium [Mass/Vol] 2.8 mg/dL High 1.6-2.6 [facility] Interpretation and review of laboratory results Abnormal [employer] Phone: Magnesium [Mass/Vol] 2.8 mg/dL High 1.6 - 2 .6 mg/dL [employer] Phone: BNPon 08-08-2020 Natriuretic peptide B (Bld) [Mass/Vol] 29 pg/mL Normal 0-125 [facility] Brain Natriuretic Peptideon 08-08-2020 Natriuretic peptide B (Bld) [Mass/Vol] 29 pg/mL 0 - 125 pg/mL [employer] Phone: CBC With Platelet and Differ entialon 08-08-2020 Abs Imm Granulocytes 0.02 E9/L Normal [facility] Absolute Basophils 0.05 E9/L Normal 0.00-0.20 [facility] Absolute Eosinophils 0.25 E9/L Normal 0.05-0.50 [facility] Absolute Lymphocytes 2.15 E9/L Normal 1.50-4.00 [facility] Absolute Monocytes 0.65 E9/L Normal 0.10-0.95 [facility] Absolute Neutrophils 4.63 E9/L Normal 1.80-7.30 [facility] Basophils/100 WBC (Bld) 0.6 % Normal 0.0-2.0 [facility] Eosinophils/100 WBC (Bld) 3.2 % Normal 0.0-6.0 [facility] Hematocrit (Bld) [Volume fraction] 44.2 % Normal 37.0-54.0 [facility] Hemoglobin (Bld) [Mass/Vol] 15.8 g/dL Normal 12.5-16.5 [facility] Imm Granulocytes 0.3 % Normal 0.0-5.0 [facility] Lymphocytes/100 WBC (Bld) 27.7 % Normal 20.0-42.0 [facility] MCH (RBC) [Entitic mass] 31.0 pg Normal 26.0-35.0 [facility] MCHC 35.7 % High 32.0-34.5 [facility] MCV (RBC) [Entitic vol] 86.7 fL Normal 80.0-99.9 [facility] Monocytes/100 WBC (Bld) 8.4 % Normal 2.0-12.0 [facility] Neutrophils/100 WBC (Bld) 59.8 % Normal 43.0-80.0 [facility] Platelet Count 228 E9/L Normal 130-450 [facility] Platelet mean volume (Bld) [Entitic vol] 10.0 fL Normal 7.0-12.0 [facility] RBC 5.10 E12/L Normal 3.80-5.80 [facility] RDW 12.6 fL Normal 11.5-15.0 [facility] WBC 7.8 E9/L Normal 4.5-11.5 [facility] CBC auto differentialon 07-16 Basophils (Bld) [#/Vol] 0.05 10*3/uL [employer] Phone: Basophils/100 WBC (Bld) 0.6 % 0.0 - 2.0 % [employer] Phone: Eosinophils (Bld) [#/Vol] 0.25 10*3/uL [employer] Phone: Eosinophils/100 WBC (Bld) 3.2 % 0.0 - 6.0 % [employer] Phone: Erythrocyte distribution width (RBC) [Ratio] 12.6 fL 11.5 - 15.0 fL [employer] Phone: Hematocrit (Bld) [Volume fraction] 44.2 % 37.0 - 54.0 % [employer] Phone: Hemoglobin (Bld) [Mass/Vol] 15.8 g/dL 12.5 - 16.5 g/dL [employer] Phone: Immature granulocytes (Bld) [#/Vol] 0.02 10*3/uL E9/L [employer] Phone: Immature granulocytes/100 WBC (Bld) 0.3 % 0.0 - 5.0 % [employer] Phone: Interpretation and review of laboratory results Abnormal [employer] Phone: Lymphocytes (Bld) [#/Vol] 2.15 10*3/uL [employer] Phone: Lymphocytes/100 WBC (Bld) 27.7 % 20.0 - 42.0 % [employer] Phone: MCH (RBC) [Entitic mass] 31.0 pg 26.0 - 35.0 pg [employer] Phone: MCHC (RBC) [Mass/Vol] 35.7 % High 32.0 - 34.5 % [employer] Phone: MCV (RBC) [Entitic vol] 86.7 fL 80.0 - 99.9 fL [employer] Phone: Monocytes (Bld) [#/Vol] 0.65 10*3/uL [employer] Phone: Monocytes/100 WBC (Bld) 8.4 % 2.0 - 12.0 % [employer] Phone: Neutrophils Absolute 4.63 [employer] Phone: Neutrophils/100 WBC (Bld) 59.8 % 43.0 - 80.0 % [employer] Phone: Platelet mean volume (Bld) [Entitic vol] 10.0 fL 7.0 - 12.0 fL [employer] Phone: Platelets (Bld) [#/Vol] 228 10*3/uL [employer] Phone: RBC (Bld) [#/Vol] 5.10 10*6/uL [employer] Phone: WBC (Bld) [#/Vol] 7.8 10*3/uL [employer] Phone: CT HEAD WO CONTRASTon 2020 CT HEAD WO CONTRAST EXAMINATION: CT OF THE HEAD WITHOUT CONTRAST 08/08/2020 5:40 pm TECHNIQUE: CT of the head was performed without the administration of intravenous contrast. Dose modulation, iterative reconstruction, and/or weight based adjustment of the mA/kV was utilized to reduce the radiation dose to as low as reasonably achievable. COMPARISON: None. HISTORY: ORDERING SYSTEM PROVIDED HISTORY: headaches, elevated bp TECHNOLOGIST PROVIDED HISTORY: Has a code stroke or stroke alert been called?->No Reason for exam:->headaches, elevated bp Decision Support Exception->Emergency Medical Condition ([place]) What reading provider will be dictating this exam?->CRC FINDINGS: BRAIN/VENTRICLES: There is no acute intracranial hemorrhage, mass effect or midline shift. No abnormal extra-axial fluid collection. The carrera-white differentiation is maintained without evidence of an acute infarct. There is no evidence of hydrocephalus. ORBITS: The visualized portion of the orbits demonstrate no acute abnormality. SINUSES: The visualized paranasal sinuses and mastoid air cells demonstrate no acute abnormality. SOFT TISSUES/SKULL: No acute abnormality of the visualized skull or soft tissues. IMPRESSION: No acute intracranial abnormality. Interpreted by: Benigno Fregoso MD Signed by: Benigno Fregoso MD 08/08/20 Final result Normal [facility] Comment on above: Order Comment: Has a code stroke or stroke alert been called?->NoReason for exam:->headaches, elevated bpDecision Support Exception->Emergency Medical Condition ([place])What reading provider will be dictating this exam?->CRC Marbin, Mhy Incoming Radiant Results From [employer] - 08/08/2020 6:01 PM EDT EXAMINATION: CT OF THE HEAD WITHOUT CONTRAST 08/08/2020 5:40 pm TECHNIQUE: CT of the head was performed without the administration of intravenous contrast. Dose modulation, iterative reconstruction, and/or weight based adjustment of the mA/kV was utilized to reduce the radiation dose to as low as reasonably achievable. COMPARISON: None. HISTORY: ORDERING SYSTEM PROVIDED HISTORY: headaches, elevated bp TECHNOLOGIST PROVIDED HISTORY: Has a code stroke or stroke alert been called?->No Reason for exam:->headaches, elevated bp Decision Support Exception->Emergency Medical Condition ([place]) What reading provider will be dictating this exam?->CRC FINDINGS: BRAIN/VENTRICLES: There is no acute intracranial hemorrhage, mass effect or midline shift. No abnormal extra-axial fluid collection. The carrera-white differentiation is maintained without evidence of an acute infarct. There is no evidence of hydrocephalus. ORBITS: The visualized portion of the orbits demonstrate no acute abnormality. SINUSES: The visualized paranasal sinuses and mastoid air cells demonstrate no acute abnormality. SOFT TISSUES/SKULL: No acute abnormality of the visualized skull or soft tissues. IMPRESSION: No acute intracranial abnormality. [employer] Phone: No acute intracrania l abnormality. [employer] Phone: EXAMINATION: CT OF T HE HEAD WITHOUT CONTRAST 08/08/2020 5:40 pm TECHNIQUE: CT of the head was performed without the administration of intravenous contrast. Dose modulation, iterative reconstruction, and/or weight based adjustment of the mA/kV was utilized to reduce the radiation dose to as low as reasonably achievable. COMPARISON: None. HISTORY: ORDERING SYSTEM PROVIDED HISTORY: headaches, elevated bp TECHNOLOGIST PROVIDED HISTORY: Has a code stroke or stroke alert been called?->No Reason for exam:->headaches, elevated bp Decision Support Exception->Emergency Medical Condition ([place]) What reading provider will be dictating this exam?->CRC FINDINGS: BRAIN/VENTRICLES: There is no acute intracranial hemorrhage, mass effect or midline shift. No abnormal extra-axial fluid collection. The carrera-white differentiation is maintained without evidence of an acute infarct. There is no evidence of hydrocephalus. ORBITS: The visualized portion of the orbits demonstrate no acute abnormality. SINUSES: The visualized paranasal sinuses and mastoid air cells demonstrate no acute abnormality. SOFT TISSUES/SKULL: No acute abnormality of the visualized skull or soft tissues. [employer] Work Phone: Comprehensive Metabolic Pane [facility] 08-08-2020 Albumin [Mass/Vol] 4.6 g/dL Normal 3.5-5.2 [facility] ALP [Catalytic activity/Vol] 89 U/L Normal 40-129 [facility] ALT [Catalytic activity/Vol] 38 U/L Normal 0-40 [facility] Anion gap [Moles/Vol] 12 mmol/L Normal 7-16 [facility] AST [Catalytic activity/Vol] 40 U/L High 0-39 [facility] Bilirubin [Mass/Vol] 0.8 mg/dL Normal 0.0-1.2 [facility] Calcium [Mass/Vol] 9.7 mg/dL Normal 8.6-10.2 [facility] Chloride [Moles/Vol] 95 mmol/L Low 98-107 [facility] CO2 [Moles/Vol] 29 mmol/L Normal 22-29 [facility] Creatinine [Mass/Vol] 1.6 mg/dL High 0.7-1.2 [facility] GFR/1.73 sq M.predicted among blacks MDRD (S/P/Bld) [Vol rate/Area] 53 mL/min/{1.73_m2} Normal [facility] GFR/1.73 sq M.predicted among non-blacks MDRD (S/P/Bld) [Vol rate/Area] 44 mL/min/{1.73_m2} Normal >=60 [facility] Comment on above: Result Comment: Credit Authorizer [employer] Kidney Disease: less than 60 ml/min/1.73 sq.m. Kidney Failure: less than 15 ml/min/1.73 sq.m. Results valid for patients 18 years and older. Glucose [Mass/Vol] 113 mg/dL High 74-99 [facility] Potassium [Moles/Vol] 2.9 mmol/L Low 3.5-5.0 [facility] Protein [Mass/Vol] 7.6 g/dL Normal 6.4-8.3 [facility] Sodium [Moles/Vol] 136 mmol/L Normal 132-146 [facility] Urea nitrogen [Mass/Vol] 24 mg/dL High 8-23 [facility] Albumin [Mass/Vol] 4.6 g/dL 3.5 - 5.2 g/dL [facility] Phone: ALP [Catalytic activity/Vol] 89 U/L 40 - 129 U/L [facility] Phone: ALT [Catalytic activity/Vol] 38 U/L 0 - 40 U/L [facility] Phone: Anion gap [Moles/Vol] 12 mmol/L 7 - 16 mmol/L [facility] Phone: AST [Catalytic activity/Vol] 40 U/L High 0 - 39 U/L [facility] Phone: Bilirubin Ql (U) 0.8 mg/dL 0.0 - 1.2 mg/dL [facility] Phone: Calcium [Mass/Vol] 9.7 mg/dL 8.6 - 10. 2 mg/dL [facility] Work Phone: Chloride [Moles/Vol] 95 mmol/L Low 98 - 10 7 mmol/L [facility] Phone: CO2 [Moles/Vol] 29 mmol/L 22 - 29 mmol/L [facility] Phone: Creatinine [Mass/Vol] 1.6 mg/dL High 0.7 - 1.2 mg/dL [facility] Phone: GFR 53 [employer] Work Phone: GFR Non- 44 mL/min/1.73 >=60 [facility] Phone: Comment on above: Chronic Kidney Disea se: less than 60 ml/min/1.73 sq.m. Kidney Failure: less than 15 ml/min/1.73 sq.m. Results valid for patients 18 years and older. Glucose [Mass/Vol] 113 mg/dL High 74 - 99 mg/dL [facility] [employer] Phone: Interpretation and review of laboratory results Abnormal [facility] Phone: Potassium [Moles/Vol] 2.9 mmol/L Low 3.5 - 5.0 mmol/L [facility] Phone: Protein [Mass/Vol] 7.6 g/dL 6.4 - 8.3 g/dL [facility] [employer] Work Phone: Sodium [Moles/Vol] 136 mmol/L 132 - 146 mmol/L [facility] Phone: Urea nitrogen [Mass/Vol] 24 mg/dL High 8 - 23 mg/dL [facility] Phone: EKG 12 [place] 08-08-2020 Atrial Rate 64 BPM [facility] Phone: P [place] 59 degrees [facility] Phone: P-R Interval 172 ms [employer] Phone: Q-T Interval 404 ms [employer] Phone: QRS Duration 86 ms [employer] Phone: QTc Calculation (Bazett) 416 ms [employer] Phone: R [place] 62 degrees [employer] Phone: T [place] -90 degrees [employer] Phone: Ventricular Rate 64 BPM [employer] Phone: Normal sinus rhythm ST & T wave abnormality, consider inferolateral ischemia Abnormal ECG When compared with ECG of 02-AUG-2020 11:44, Significant changes have occurred Confirmed by Shaq Goldsmith () on 08/08/2020 5:38:50 PM [employer] Phone: Marbin, [facility] Incoming Ek g Results From 08/08/2020 5:38 PM EDT Normal sinus rhythm ST & T wave abnormality, consider inferolateral ischemia Abnormal ECG When compared with ECG of 02-AUG-2020 11:44, Significant changes have occurred Confirmed by Shaq Goldsmith () on 08/08/2020 5:38:50 PM [employer] Phone: Magnesiumon 08-08-2020 Magnesium [Mass/Vol] 2.6 mg/dL Normal 1.6-2.6 [facility] Magnesium [Mass/Vol] 2.6 mg/dL 1.6 - 2 .6 mg/dL [employer] Phone: Troponinon 08-08-2020 Troponin I.cardiac [Mass/Vol] ng/mL Normal 0.00-0.03 [facility] Comment on above: Result Comment: TROP ONIN T BLOOD LEVELS: 0.03 ng/mL Upper Reference Limit 0.04 - 0.09 ng/mL Possible myocardial injury >= 0.10 ng/mL Myocardial injury Troponin I.cardiac [Mass/Vol] ng/mL 0.00 - 0.03 ng/mL [employer] Phone: Comment on above: TROPONIN T BLOOD LEV ELS: 0.03 ng/mL Upper Reference Limit 0.04 - 0.09 ng/mL Possible myocardial injury >= 0.10 ng/mL Myocardial injury XR CHEST (2 VW)on 08-08-2020 XR CHEST (2 VW) EXAMINATION: TWO XRAY VIEWS OF THE CHEST 08/08/2020 2:41 pm COMPARISON: 08/02/2020 HISTORY: ORDERING SYSTEM PROVIDED HISTORY: SOB TECHNOLOGIST PROVIDED HISTORY: Reason for exam:->SOB What reading provider will be dictating this exam?->CRC FINDINGS: Heart size is normal. There is tortuosity of the aorta. There are no infiltrates or effusions. IMPRESSION: No acute process Interpreted by: Fredy Austin MD Signed by: Fredy Austin MD 08/08/20 Final result Normal [facility] Comment on above: Order Comment: Reaso n for exam:->SOBWhat reading provider will be dictating this exam?->CRC No acute process [employer] Work Phone: EXAMINATION: TWO XRA Y VIEWS OF THE CHEST 08/08/2020 2:41 pm COMPARISON: 08/02/2020 HISTORY: ORDERING SYSTEM PROVIDED HISTORY: SOB TECHNOLOGIST PROVIDED HISTORY: Reason for exam:->SOB What reading provider will be dictating this exam?->CRC FINDINGS: Heart size is normal. There is tortuosity of the aorta. There are no infiltrates or effusions. [employer] Phone: Marbin, Mhy Incoming Radiant Results From [employer] - 08/08/2020 2:48 PM EDT EXAMINATION: TWO XRAY VIEWS OF THE CHEST 08/08/2020 2:41 pm COMPARISON: 08/02/2020 HISTORY: ORDERING SYSTEM PROVIDED HISTORY: SOB TECHNOLOGIST PROVIDED HISTORY: Reason for exam:->SOB What reading provider will be dictating this exam?->CRC FINDINGS: Heart size is normal. There is tortuosity of the aorta. There are no infiltrates or effusions. IMPRESSION: No acute process [employer] Work Phone: BNPon 08-02-2020 Natriuretic peptide B (Bld) [Mass/Vol] 70 pg/mL Normal 0-125 [facility] Brain Natriuretic Peptideon 08-02-2020 Natriuretic peptide B (Bld) [Mass/Vol] 70 pg/mL 0 - 125 pg/mL [employer] Phone: CBCon 08-02-2020 Erythrocyte distribution width (RBC) [Ratio] 12.8 fL 11.5 - 15.0 fL [employer] Phone: Hematocrit (Bld) [Volume fraction] 44.6 % 37.0 - 54.0 % [employer] Phone: Hemoglobin (Bld) [Mass/Vol] 15.5 g/dL 12.5 - 16.5 g/dL [employer] Phone: Interpretation and review of laboratory results Abnormal [employer] Phone: MCH (RBC) [Entitic mass] 30.6 pg 26.0 - 35.0 pg [employer] Phone: MCHC (RBC) [Mass/Vol] 34.8 % High 32.0 - 34.5 % [employer] Phone: MCV (RBC) [Entitic vol] 88.1 fL 80.0 - 99.9 fL [employer] Phone: Platelet mean volume (Bld) [Entitic vol] 10.4 fL 7.0 - 12.0 fL [employer] Phone: Platelets (Bld) [#/Vol] 214 10*3/uL [employer] Phone: RBC (Bld) [#/Vol] 5.06 10*6/uL [employer] Phone: WBC (Bld) [#/Vol] 7.7 10*3/uL [employer] Phone: CBC With Platelet No Differe ntialon 08-02-2020 Hematocrit (Bld) [Volume fraction] 44.6 % Normal 37.0-54.0 [facility] Hemoglobin (Bld) [Mass/Vol] 15.5 g/dL Normal 12.5-16.5 [facility] MCH (RBC) [Entitic mass] 30.6 pg Normal 26.0-35.0 [facility] MCHC 34.8 % High 32.0-34.5 [facility] MCV (RBC) [Entitic vol] 88.1 fL Normal 80.0-99.9 [facility] Platelet Count 214 E9/L Normal 130-450 [facility] Platelet mean volume (Bld) [Entitic vol] 10.4 fL Normal 7.0-12.0 [facility] RBC 5.06 E12/L Normal 3.80-5.80 [facility] RDW 12.8 fL Normal 11.5-15.0 [facility] WBC 7.7 E9/L Normal 4.5-11.[address] [facility] [address] HEAD WO CONTRASTon 2020 CT HEAD WO CONTRAST EXAMINATION: CT OF THE HEAD WITHOUT CONTRAST 08/02/2020 4:21 pm TECHNIQUE: CT of the head was performed without the administration of intravenous contrast. Dose modulation, iterative reconstruction, and/or weight based adjustment of the mA/kV was utilized to reduce the radiation dose to as low as reasonably achievable. COMPARISON: None. HISTORY: ORDERING SYSTEM PROVIDED HISTORY: headache TECHNOLOGIST PROVIDED HISTORY: Has a code stroke or stroke alert been called?->No Reason for exam:->headache Decision Support Exception->Emergency Medical Condition ([place]) What reading provider will be dictating this exam?->CRC FINDINGS: BRAIN/VENTRICLES: There is no acute intracranial hemorrhage, mass effect or midline shift. No abnormal extra-axial fluid collection. The carrera-white differentiation is maintained without evidence of an acute infarct. There is no evidence of hydrocephalus. ORBITS: The visualized portion of the orbits demonstrate no acute abnormality. SINUSES: The visualized paranasal sinuses and mastoid air cells demonstrate no acute abnormality. SOFT TISSUES/SKULL: No acute abnormality of the visualized skull or soft tissues. IMPRESSION: No acute intracranial abnormality. Interpreted by: Luigi Parson DO Signed by: Luigi Parson DO 08/02/20 Final result Normal [facility] Comment on above: Order Comment: Has a code stroke or stroke alert been called?->NoReason for exam:->headacheDecision Support Exception->Emergency Medical Condition ([place])What reading provider will be dictating this exam?->CRC No acute intracrania l abnormality. [employer] Phone: Marbin, Mhy Incoming Radiant Results From [employer] - 08/02/2020 4:50 PM EDT EXAMINATION: CT OF THE HEAD WITHOUT CONTRAST 08/02/2020 4:21 pm TECHNIQUE: CT of the head was performed without the administration of intravenous contrast. Dose modulation, iterative reconstruction, and/or weight based adjustment of the mA/kV was utilized to reduce the radiation dose to as low as reasonably achievable. COMPARISON: None. HISTORY: ORDERING SYSTEM PROVIDED HISTORY: headache TECHNOLOGIST PROVIDED HISTORY: Has a code stroke or stroke alert been called?->No Reason for exam:->headache Decision Support Exception->Emergency Medical Condition ([place]) What reading provider will be dictating this exam?->CRC FINDINGS: BRAIN/VENTRICLES: There is no acute intracranial hemorrhage, mass effect or midline shift. No abnormal extra-axial fluid collection. The carrera-white differentiation is maintained without evidence of an acute infarct. There is no evidence of hydrocephalus. ORBITS: The visualized portion of the orbits demonstrate no acute abnormality. SINUSES: The visualized paranasal sinuses and mastoid air cells demonstrate no acute abnormality. SOFT TISSUES/SKULL: No acute abnormality of the visualized skull or soft tissues. IMPRESSION: No acute intracranial abnormality. [employer] Phone: EXAMINATION: CT OF T HE HEAD WITHOUT CONTRAST 08/02/2020 4:21 pm TECHNIQUE: CT of the head was performed without the administration of intravenous contrast. Dose modulation, iterative reconstruction, and/or weight based adjustment of the mA/kV was utilized to reduce the radiation dose to as low as reasonably achievable. COMPARISON: None. HISTORY: ORDERING SYSTEM PROVIDED HISTORY: headache TECHNOLOGIST PROVIDED HISTORY: Has a code stroke or stroke alert been called?->No Reason for exam:->headache Decision Support Exception->Emergency Medical Condition ([place]) What reading provider will be dictating this exam?->CRC FINDINGS: BRAIN/VENTRICLES: There is no acute intracranial hemorrhage, mass effect or midline shift. No abnormal extra-axial fluid collection. The carrera-white differentiation is maintained without evidence of an acute infarct. There is no evidence of hydrocephalus. ORBITS: The visualized portion of the orbits demonstrate no acute abnormality. SINUSES: The visualized paranasal sinuses and mastoid air cells demonstrate no acute abnormality. SOFT TISSUES/SKULL: No acute abnormality of the visualized skull or soft tissues. [employer] Work Phone: Comprehensive Metabolic Pane [facility] 08-02-2020 Albumin [Mass/Vol] 4.3 g/dL Normal 3.5-5.2 [facility] ALP [Catalytic activity/Vol] 76 U/L Normal 40-129 [facility] ALT [Catalytic activity/Vol] 26 U/L Normal 0-40 [facility] Anion gap [Moles/Vol] 13 mmol/L Normal 7-16 [facility] AST [Catalytic activity/Vol] 21 U/L Normal 0-39 [facility] Bilirubin [Mass/Vol] 0.7 mg/dL Normal 0.0-1.2 [facility] Calcium [Mass/Vol] 9.5 mg/dL Normal 8.6-10.2 [facility] Chloride [Moles/Vol] 100 mmol/L Normal 98-107 [facility] CO2 [Moles/Vol] 27 mmol/L Normal 22-29 [facility] Creatinine [Mass/Vol] 1.2 mg/dL Normal 0.7-1.2 [facility] GFR Calculated >60 Normal >=60 [facility] Comment on above: Result Comment: Credit Authorizer [employer] Kidney Disease: less than 60 ml/min/1.73 sq.m. Kidney Failure: less than 15 ml/min/1.73 sq.m. Results valid for patients 18 years and older. GFR/1.73 sq M.predicted among blacks MDRD (S/P/Bld) [Vol rate/Area] mL/min/{1.73_m2} Normal [facility] Glucose [Mass/Vol] 97 mg/dL Normal 74-99 [facility] Potassium [Moles/Vol] 3.3 mmol/L Low 3.5-5.0 [facility] Protein [Mass/Vol] 7.3 g/dL Normal 6.4-8.3 [facility] Sodium [Moles/Vol] 140 mmol/L Normal 132-146 [facility] Urea nitrogen [Mass/Vol] 22 mg/dL Normal 8-23 [facility] Albumin [Mass/Vol] 4.3 g/dL 3.5 - 5.2 g/dL [facility] [employer] Phone: ALP [Catalytic activity/Vol] 76 U/L 40 - 129 U/L [facility] [employer] Phone: ALT [Catalytic activity/Vol] 26 U/L 0 - 40 U/L [facility] [employer] Phone: Anion gap [Moles/Vol] 13 mmol/L 7 - 16 mmol/L [facility] [employer] Phone: AST [Catalytic activity/Vol] 21 U/L 0 - 39 U/L [facility] [employer] Phone: Bilirubin Ql (U) 0.7 mg/dL 0.0 - 1.2 mg/dL [facility] [employer] Phone: Calcium [Mass/Vol] 9.5 mg/dL 8.6 - 10. 2 mg/dL [facility] [employer] Phone: Chloride [Moles/Vol] 100 mmol/L 98 - 10 7 mmol/L [facility] [employer] Phone: CO2 [Moles/Vol] 27 mmol/L 22 - 29 mmol/L [facility] [employer] Phone: Creatinine [Mass/Vol] 1.2 mg/dL 0.7 - 1.2 mg/dL [facility] [employer] Phone: GFR >60 [facility] [employer] Work Phone: GFR Non- >60 >=60 mL/min/1.73 [facility] Phone: Comment on above: Chronic Kidney Disea se: less than 60 ml/min/1.73 sq.m. Kidney Failure: less than 15 ml/min/1.73 sq.m. Results valid for patients 18 years and older. Glucose [Mass/Vol] 97 mg/dL 74 - 99 mg/dL [facility] [employer] Phone: Interpretation and review of laboratory results Abnormal [facility] [employer] Phone: Potassium [Moles/Vol] 3.3 mmol/L Low 3.5 - 5.0 mmol/L [facility] [employer] Phone: Protein [Mass/Vol] 7.3 g/dL 6.4 - 8.3 g/dL [facility] [employer] Phone: Sodium [Moles/Vol] 140 mmol/L 132 - 146 mmol/L [facility] [employer] Phone: Urea nitrogen [Mass/Vol] 22 mg/dL 8 - 23 mg/dL [facility] [employer] Phone: Magnesiumon 08-02-2020 Magnesium [Mass/Vol] 2.6 mg/dL Normal 1.6-2.6 [facility] Magnesium [Mass/Vol] 2.6 mg/dL 1.6 - 2 .6 mg/dL [facility] Phone: Troponinon 08-02-2020 Troponin I.cardiac [Mass/Vol] ng/mL Normal 0.00-0.03 [facility] Comment on above: Result Comment: TROP ONIN T BLOOD LEVELS: 0.03 ng/mL Upper Reference Limit 0.04 - 0.09 ng/mL Possible myocardial injury >= 0.10 ng/mL Myocardial injury Troponin I.cardiac [Mass/Vol] ng/mL 0.00 - 0.03 ng/mL [facility] Phone: Comment on above: TROPONIN T BLOOD LEV ELS: 0.03 ng/mL Upper Reference Limit 0.04 - 0.09 ng/mL Possible myocardial injury >= 0.10 ng/mL Myocardial injury XR CHEST (2 VW)on 08-02-2020 XR CHEST (2 VW) EXAMINATION: TWO XRAY VIEWS OF THE CHEST 08/02/2020 2:25 pm COMPARISON: None. HISTORY: ORDERING SYSTEM PROVIDED HISTORY: dyspnea TECHNOLOGIST PROVIDED HISTORY: Reason for exam:->dyspnea What reading provider will be dictating this exam?->CRC FINDINGS: The lungs are without acute focal process. There is no effusion or pneumothorax. The cardiomediastinal silhouette is without acute process. The osseous structures are without acute process. IMPRESSION: No acute process. Interpreted by: Meka Riggins MD Signed by: Meka Riggins MD 08/02/20 Final result Normal [facility] Comment on above: Order Comment: Reaso n for exam:->dyspnea What reading provider will be dictating this exam?->CRC EXAMINATION: TWO XRA Y VIEWS OF THE CHEST 08/02/2020 2:25 pm COMPARISON: None. HISTORY: ORDERING SYSTEM PROVIDED HISTORY: dyspnea TECHNOLOGIST PROVIDED HISTORY: Reason for exam:->dyspnea What reading provider will be dictating this exam?->CRC FINDINGS: The lungs are without acute focal process. There is no effusion or pneumothorax. The cardiomediastinal silhouette is without acute process. The osseous structures are without acute process. [employer] Phone: No acute process. [employer] Work Phone: Marbin, Mhy Incoming Radiant Results From [employer] - 08/02/2020 2:49 PM EDT EXAMINATION: TWO XRAY VIEWS OF THE CHEST 08/02/2020 2:25 pm COMPARISON: None. HISTORY: ORDERING SYSTEM PROVIDED HISTORY: dyspnea TECHNOLOGIST PROVIDED HISTORY: Reason for exam:->dyspnea What reading provider will be dictating this exam?->CRC FINDINGS: The lungs are without acute focal process. There is no effusion or pneumothorax. The cardiomediastinal silhouette is without acute process. The osseous structures are without acute process. IMPRESSION: No acute process. frintit Work Phone: CBC WITH AUTO DIFFERENTIALon 04-22-2020 Basophils (Bld) [#/Vol] 0.05 10*3/uL [facility] Basophils/100 WBC (Bld) 0.5 % [facility] Eosinophils (Bld) [#/Vol] 0.27 10*3/uL [facility] Eosinophils/100 WBC (Bld) 2.6 % [facility] Erythrocyte distribution width (RBC) [Entitic vol] 12.9 % 11.6 - 14.8 % [facility] Hematocrit (Bld) [Volume fraction] 47.6 % 41 - 53 % [facility] Hemoglobin (Bld) [Mass/Vol] 15.9 g/dL 13.5 - 17.5 g/dL [facility] Immature granulocytes (Bld) [#/Vol] 0.14 10*3/uL [facility] Immature granulocytes/100 WBC (Bld) 1.30 % [facility] Comment on above: The IG parameter is the percentage of metamyelocytes, myelocytes and promyelocytes. An immature granulocyte count (IG) of 1% or more suggests the possibility of infection, an IG count of 3% is very likely related to an infection. Interpretation and review of laboratory results Abnormal [facility] Lymphocytes (Bld) [#/Vol] 2.54 10*3/uL [facility] Lymphocytes/100 WBC (Bld) 24.1 % [facility] MCH (RBC) [Entitic mass] 30.5 pg 26 - 34 pg [facility] MCHC (RBC) [Mass/Vol] 33.4 g/dL 31 - 37 g/dL [facility] MCV (RBC) [Entitic vol] 91.2 fL 80 - 100 fL [facility] Monocytes (Bld) [#/Vol] 0.96 10*3/uL High [facility] Monocytes/100 WBC (Bld) 9.1 % [facility] Neutrophils (Bld) [#/Vol] 6.57 10*3/uL [facility] Neutrophils/100 WBC (Bld) 62.4 % [facility] Nucleated RBC (Bld) [#/Vol] 0.00 10*3/uL [facility] Nucleated RBC/100 WBC (Bld) [Ratio] 0.0 % [facility] Platelet mean volume (Bld) [Entitic vol] 10.2 fL 9.4 - 12.4 fL [facility] Platelets (Bld) [#/Vol] 232 10*3/uL [facility] RBC (Bld) [#/Vol] 5.22 10*6/uL [facility]alth WBC (Bld) [#/Vol] 10.53 10*3/uL [facility] COVID-19/Influenza A,B Molec ularon 04-22-2020 Influenza A Not Detected Not Detected [facility] Influenza B Not Detected Not Detected [facility] Interpretation and review of laboratory results Normal [facility] SARS-CoV-2 Not Detected Not Detected [facility] This test was performed under the FDA's Emergency Use Authorization (EUA). Testing was performed using the [employer] brady SARS-CoV-2 & Influenza A/B Nucleic Acid Test on the brady [employer] System. This test has not been approved for use in asymptomatic patients and its performance in this patient population has not been evaluated. Negative results do not rule out the presence of SARS-CoV-2, influenza A, and/or influenza B. Fact sheets for the EUA can be found at the following links: For Healthcare Providers: https://www.[facility].gov/hi latisha/596528/download For Patients: https://www.[facility].gov/hi latsiha/506181/download [facility] Chem 7on 04-22-2020 Anion gap [Moles/Vol] 8 mmol/L Low 10 - 20 mmol/L [facility] Chloride [Moles/Vol] 107 mmol/L 98 - 10 8 mmol/L [facility] Creatinine [Mass/Vol] 1.03 mg/dL 0.80 - 1.30 [facility] GFR/1.73 sq M predicted among non-blacks MDRD (S/P/Bld) [Vol rate/Area] The eGFR should be used for monitoring renal function only and not for medication dosing. [facility] GFR/1.73 sq M.predicted CKD-EPI (S/P/Bld) [Vol rate/Area] 77 >=60 mL/min/1.73 m2 [facility] Glucose [Mass/Vol] 88 mg/dL 65 - 99 mg/dL [facility] HCO3 [Moles/Vol] 31 mmol/L 21 - 32 mmol/L [facility] Interpretation and review of laboratory results Abnormal [facility] Potassium [Moles/Vol] 3.9 mmol/L 3.5 - 5.1 mmol/L [facility] Sodium [Moles/Vol] 142 mmol/L 135 - 145 mmol/L [facility] Urea nitrogen [Mass/Vol] 10 mg/dL 8 - 25 mg/dL [facility] Urea nitrogen/Creatinine [Mass ratio] 9.7 mg/mg Low [facility] XR Chest 1 Viewon 04-22-2020 EXAMINATION: XR CHES T PA/AP 04/22/2020 7:09 pm HISTORY: ORDERING SYSTEM PROVIDED HISTORY: cough, TECHNOLOGIST PROVIDED HISTORY: Illness/Other Reason for exam: cough Cancer History: u Surgery, RadiationHistory: u Encounter Type: Initial Additional signs and symptoms: n ORDERING SYSTEM PROVIDED DIAGNOSIS CODES: COMPARISON: 01/14/2010 FINDINGS: Patchy bibasilar airspace opacities, could be atelectasis or pneumonia. Heart size is stable. No pleural effusion pneumothorax. [facility] Bibasilar opacities, could represent multilobar pneumonia. Workstation ID: [id number] [facility] Interface, Rad In Fu ji Speechq - 04/22/2020 7:54 PM EST EXAMINATION: XR CHEST PA/AP 04/22/2020 7:09 pm HISTORY: ORDERING SYSTEM PROVIDED HISTORY: cough, TECHNOLOGIST PROVIDED HISTORY: Illness/Other Reason for exam: cough Cancer History: u Surgery, RadiationHistory: u Encounter Type: Initial Additional signs and symptoms: n ORDERING SYSTEM PROVIDED DIAGNOSIS CODES: COMPARISON: 01/14/2010 FINDINGS: Patchy bibasilar airspace opacities, could be atelectasis or pneumonia. Heart size is stable. No pleural effusion pneumothorax. IMPRESSION: Bibasilar opacities, could represent multilobar pneumonia. Workstation ID: [id number] [facility] XR HIP RIGHT 2 VIEWSon 02-27 FINDINGS/IMPRESSION: 1. Moderate to severe osteoarthritis of the right hip, similar to prior. Approximately 2 cm chronic osteochondral lesion in the superior right femoral head articular surface, may represent chronic avascular necrosis with chronic subchondral collapse or may relate to remote trauma. 2. No radiographic evidence of acute osseous abnormality. deskwolf IMAGES REVIEWED: XR HIP RIGHT 2 VIEWS COMPARISON: 12/02/2016 x-ray right hip, 06/11/2017 CT right hip. CLINICAL INDICATION: Pain for one month, no known injury. deskwolf User, Interfaces - 02/28/2020 12:41 AM EDT IMAGES REVIEWED: XR HIP RIGHT 2 VIEWS COMPARISON: 12/02/2016 x-ray right hip, 06/11/2017 CT right hip. CLINICAL INDICATION: Pain for one month, no known injury. IMPRESSION FINDINGS/IMPRESSION: 1. Moderate to severe osteoarthritis of the right hip, similar to prior. Approximately 2 cm chronic osteochondral lesion in the superior right femoral head articular surface, may represent chronic avascular necrosis with chronic subchondral collapse or may relate to remote trauma. 2. No radiographic evidence of acute osseous abnormality. [facility] ECG 12-LEADon 06-21-2019 Atrial Rate 91 BPM [facility] P [place] 41 degrees [facility] P-R Interval 158 ms [facility] Q-T Interval 356 ms [facility] QRS Duration 82 ms [facility] QTC Calculation (Bezet) 437 ms [facility] R [place] 42 degrees [facility] T [place] 35 degrees [facility] Ventricular Rate 91 BPM [facility] th Normal sinus rhythm Normal ECG Confirmed by Alexandria Beard MD ([id number]) on 06/21/2019 8:57:09 AM [facility] Hemoglobin A1con 06-20-2019 Average glucose Estimated from glycated hemoglobin mass conc (Bld) 114 mg/dL 68 - 114 mg/dL [facility] HbA1c (Bld) [Mass fraction] 5.6 % 4 - 5.6 % [facility] Interpretation and review of laboratory results Normal [facility] Normal: 4.0% - 5.6% Increased risk for diabetes: 5.7% - 6.4% Diabetes: >= 6.5% Pediatrics: No established reference range Estimated average glucose: 68-114 mg/dL [facility] Lipid Panelon 06-19-2019 Cholesterol [Mass/Vol] 167 mg/dL 100 - 199 mg/dL [facility] Comment on above: National Cholesterol Education Program Guidelines: Cholesterol Desirable: <200 mg/dL Borderline High: 200-239 mg/dL High: greater than or equal to 240 mg/dL Cholesterol in HDL [Mass/Vol] 51 mg/dL 40 - 59 [facility] Comment on above: National Cholesterol Education Program Guidelines: HDL Cholesterol Low: <40 mg/dL Near Optimal: 40-59 mg/dL High: greater than or equal to 60 mg/dL Cholesterol in LDL [Mass/Vol] 75 mg/dL 10 - 130 mg/dL [facility] Comment on above: National Cholesterol Education Program Guidelines: LDL Cholesterol Optimal: <100 mg/dL Near Optimal/above Optimal: 100-129 mg/dL Borderline High: 130-159 mg/dL High: 160-189 mg/dL Very High: greater than or equal to 190 mg/dL Cholesterol non HDL [Mass/Vol] 116 mg/dL [facility] Comment on above: National Cholesterol Education Program Guidelines: NON HDL Cholesterol Desirable: <130 mg/dL Borderline High: 130-159 mg/dL High: 160-189 mg/dL Very High: > or = 190 mg/dL Cholesterol.total/Ch olesterol in HDL [Mass ratio] 3.3 {ratio} ratio [facility] Comment on above: Males Cholesterol/HD L Ratio: Average risk: 5.0 1/2 average risk: 3.4 2 x average risk: 9.6 Interpretation and review of laboratory results Abnormal [facility] Triglyceride [Mass/Vol] 207 mg/dL High 30 - 150 mg/dL [facility] Comment on above: National Cholesterol Education Program Guidelines: Triglyceride Normal: <150 mg/dL Borderline High: 150-199 mg/dL High: 200-499 mg/dL Very High: greater than or equal to 500 mg/dL TSH with Reflex Free T4on Interpretation and review of laboratory results Normal [facility] TSH Qn 1.05 m[IU]/L [facility] Alcohol, Medicalon 0 Ethanol [Mass/Vol] 69.30 mg/dL High <10.00 [facility] ealt Interpretation and review of laboratory results Abnormal [facility] CBC WITH AUTO DIFFERENTIALon 06-18-2019 Basophils (Bld) [#/Vol] 0.04 10*3/uL [facility] Basophils/100 WBC (Bld) 0.4 % [facility] Eosinophils (Bld) [#/Vol] 0.19 10*3/uL [facility] Eosinophils/100 WBC (Bld) 1.8 % [facility] Erythrocyte distribution width (RBC) [Entitic vol] 13.0 % 11.6 - 14.8 % [facility] Hematocrit (Bld) [Volume fraction] 45.8 % 41 - 53 % [facility] Hemoglobin (Bld) [Mass/Vol] 16.2 g/dL 13.5 - 17.5 g/dL [facility] Immature granulocytes (Bld) [#/Vol] 0.04 10*3/uL [facility] Immature granulocytes/100 WBC (Bld) 0.40 % [facility] Comment on above: The IG parameter is the percentage of metamyelocytes, myelocytes, and promyelocytes. Interpretation and review of laboratory results Abnormal [facility] Lymphocytes (Bld) [#/Vol] 1.49 10*3/uL [facility] Lymphocytes/100 WBC (Bld) 14.2 % [facility] MCH (RBC) [Entitic mass] 31.8 pg 26 - 34 pg [facility] MCHC (RBC) [Mass/Vol] 35.4 g/dL 31 - 37 g/dL [facility] MCV (RBC) [Entitic vol] 89.8 fL 80 - 100 fL [facility] Monocytes (Bld) [#/Vol] 0.72 10*3/uL [facility] Monocytes/100 WBC (Bld) 6.9 % [facility] Neutrophils (Bld) [#/Vol] 8.01 10*3/uL High [facility] Neutrophils/100 WBC (Bld) 76.3 % [facility] Nucleated RBC (Bld) [#/Vol] 0.00 10*3/uL [facility] Nucleated RBC/100 WBC (Bld) [Ratio] 0.0 % [facility] Platelet mean volume (Bld) [Entitic vol] 10.1 fL 9 - 15.5 fL [facility] Platelets (Bld) [#/Vol] 209 10*3/uL [facility] RBC (Bld) [#/Vol] 5.10 10*6/uL [facility] WBC (Bld) [#/Vol] 10.49 10*3/uL [facility] CPK NO MBon 06-18-2019 CK [Catalytic activity/Vol] 376 U/L High 60 - 225 U/L [facility] Interpretation and review of laboratory results Abnormal [facility] Comprehensive Metabolic Pane rashel 06-18-2019 Albumin [Mass/Vol] 3.9 g/dL 3.2 - 5.2 g/dL [facility] ALP [Catalytic activity/Vol] 97 U/L 40 - 150 U/L [facility] ALT [Catalytic activity/Vol] 31 U/L 14 - 65 U/L [facility] Anion gap [Moles/Vol] 10 mmol/L 10 - 20 mmol/L [facility] AST [Catalytic activity/Vol] 24 U/L 0 - 45 U/L [facility] Bilirubin [Mass/Vol] 0.9 mg/dL 0 - 1.3 mg/dL [facility] Calcium [Mass/Vol] 8.7 mg/dL 8.4 - 10. 2 mg/dL [facility] Chloride [Moles/Vol] 102 mmol/L 98 - 10 8 mmol/L [facility] Creatinine [Mass/Vol] 1.13 mg/dL 0.8 - 1.3 mg/dL [facility] GFR/1.73 sq M predicted among non-blacks MDRD (S/P/Bld) [Vol rate/Area] The eGFR should be used for monitoring renal function only and not for medication dosing. [facility] GFR/1.73 sq M.predicted CKD-EPI (S/P/Bld) [Vol rate/Area] 69 >=60 mL/min/1.73 m2 [facility] Glucose [Mass/Vol] 90 mg/dL 65 - 99 mg/dL [facility] HCO3 [Moles/Vol] 28 mmol/L 21 - 32 mmol/L [facility] Interpretation and review of laboratory results Normal [facility] Potassium [Moles/Vol] 3.7 mmol/L 3.5 - 5.1 mmol/L [facility] Protein [Mass/Vol] 7.5 g/dL 6 - 8 g/dL [facility] Sodium [Moles/Vol] 136 mmol/L 135 - 145 mmol/L [facility] Urea nitrogen [Mass/Vol] 12 mg/dL 8 - 25 mg/dL [facility] Urea nitrogen/Creatinine [Mass ratio] 10.6 mg/mg [facility] DRUGS OF ABUSE SCREEN, URINE on 06-18-2019 Amphetamines Ql (U) None Detected None Detected [facility] Comment on above: Urine Amphetamine Cu toff: < 1000 ng/mL = None Detected Barbiturates Screen Ql (U) None Detected None Detected [facility] Comment on above: Urine Barbiturates C utoff: < 200 ng/mL = None Detected Benzodiazepines Ql (U) None Detected None Detected [facility] Comment on above: Urine Benzodiazepine Cutoff: < 200 ng/mL = None Detected Cannabinoids Screen Ql (U) None Detected None Detected [facility] Comment on above: Urine Cannabinoids C utoff: < 50 ng/mL = None Detected Cocaine Ql (U) Positive Abnormal None Detected [facility] Comment on above: Urine Cocaine Cutoff : < 300 ng/mL = None Detected Interpretation and review of laboratory results Abnormal [facility] Methadone Screen Ql (U) None Detected None Detected [facility] Comment on above: Urine Methadone Cuto ff: < 300 ng/mL = None Detected Opiates Screen Ql (U) None Detected None Detected [facility] Comment on above: Urine Opiates Cutoff : < 300 ng/mL = None Detected Oxycodone Ql (U) None Detected None Detected [facility] Comment on above: Urine Oxycodone Cuto ff: < 100 ng/mL = None Detected Screen results shoul d be used for treatment purposes only. Specimen will be kept for 1 week, if the sample is adequate. Confirmation testing can be initiated by calling the lab within 1 week. [facility] Otheron 06-18-2019 Extra Tube Hold for add-ons. [facility] Comment on above: Auto resulted. TROPONINon 06-18-2019 Troponin I.cardiac [Mass/Vol] ng/mL <=45 ng/L [facility] Troponin I.cardiac [Mass/Vol] Normal [facility] CBC WITH AUTO DIFFERENTIALon 04-15-2019 Basophils (Bld) [#/Vol] 0.02 10*3/uL [facility] Basophils/100 WBC (Bld) 0.3 % [facility] Eosinophils (Bld) [#/Vol] 0.17 10*3/uL [facility] Eosinophils/100 WBC (Bld) 2.6 % [facility] Erythrocyte distribution width (RBC) [Entitic vol] 13.2 % 11.6 - 14.8 % [facility] Hematocrit (Bld) [Volume fraction] 51.6 % 41 - 53 % [facility] Hemoglobin (Bld) [Mass/Vol] 17.2 g/dL 13.5 - 17.5 g/dL [facility] Immature granulocytes (Bld) [#/Vol] 0.05 10*3/uL [facility] Immature granulocytes/100 WBC (Bld) 0.80 % [facility] Comment on above: The IG parameter is the percentage of metamyelocytes, myelocytes, and promyelocytes. Lymphocytes (Bld) [#/Vol] 1.22 10*3/uL [facility] Lymphocytes/100 WBC (Bld) 18.5 % [facility] MCH (RBC) [Entitic mass] 31.7 pg 26 - 34 pg [facility] MCHC (RBC) [Mass/Vol] 33.3 g/dL 31 - 37 g/dL [facility] MCV (RBC) [Entitic vol] 95.0 fL 80 - 100 fL [facility] Monocytes (Bld) [#/Vol] 0.36 10*3/uL [facility] Monocytes/100 WBC (Bld) 5.5 % [facility] Neutrophils (Bld) [#/Vol] 4.77 10*3/uL [facility] Neutrophils/100 WBC (Bld) 72.3 % [facility] Nucleated RBC (Bld) [#/Vol] 0.00 10*3/uL [facility] Nucleated RBC/100 WBC (Bld) [Ratio] 0.0 % [facility] Platelet mean volume (Bld) [Entitic vol] 10.4 fL 9 - 15.5 fL [facility] Platelets (Bld) [#/Vol] 203 10*3/uL [facility] RBC (Bld) [#/Vol] 5.43 10*6/uL [facility] WBC (Bld) [#/Vol] 6.59 10*3/uL [facility] CT MAXILLOFACIAL WITHOUT CON TRASTon 04-15-2019 EXAMINATION: CT MAXILLOFACIAL WITHOUT CONTRAST HISTORY: ORDERING SYSTEM PROVIDED HISTORY: Right maxillary and inferior orbital swelling, TECHNOLOGIST PROVIDED HISTORY: Illness/Other Reason for exam: right sided facial swelling Encounter Type: Initial Additional signs and symptoms: n/a ORDERING SYSTEM PROVIDED DIAGNOSIS CODES: COMPARISON: None. TECHNIQUE: CT examination of the facial bones without IV contrast. Dose reduction techniques were achieved by using automated exposure control and/or adjustment of mA and/or kV according to patient size and/or use of iterative reconstruction technique. FINDINGS: The overall quality of the study is limited without the use of IV contrast. There is mild subcutaneous soft tissue swelling which is nonspecific, however, may be related to cellulitis in the appropriate clinical setting. No definite drainable fluid collection is identified. Paranasal sinuses are grossly clear. Mastoid air cells are grossly clear. There is no evidence of acute fracture or dislocation. [facility] Nonspecific subcutaneous soft tissue swelling may be related to cellulitis. No definite drainable fluid collections identified; however, the study is limited without the use of IV contrast. There is no evidence of acute fracture or dislocation. The paranasal sinuses and mastoid air cells are grossly clear. SAMANTHA/jacquelinei Workstation ID: [id number] [facility] Interface, Rad In Fu ji Speechq - 04/15/2019 1:43 PM EST EXAMINATION: CT MAXILLOFACIAL WITHOUT CONTRAST HISTORY: ORDERING SYSTEM PROVIDED HISTORY: Right maxillary and inferior orbital swelling, TECHNOLOGIST PROVIDED HISTORY: Illness/Other Reason for exam: right sided facial swelling Encounter Type: Initial Additional signs and symptoms: n/a ORDERING SYSTEM PROVIDED DIAGNOSIS CODES: COMPARISON: None. TECHNIQUE: CT examination of the facial bones without IV contrast. Dose reduction techniques were achieved by using automated exposure control and/or adjustment of mA and/or kV according to patient size and/or use of iterative reconstruction technique. FINDINGS: The overall quality of the study is limited without the use of IV contrast. There is mild subcutaneous soft tissue swelling which is nonspecific, however, may be related to cellulitis in the appropriate clinical setting. No definite drainable fluid collection is identified. Paranasal sinuses are grossly clear. Mastoid air cells are grossly clear. There is no evidence of acute fracture or dislocation. IMPRESSION: Nonspecific subcutaneous soft tissue swelling may be related to cellulitis. No definite drainable fluid collections identified; however, the study is limited without the use of IV contrast. There is no evidence of acute fracture or dislocation. The paranasal sinuses and mastoid air cells are grossly clear. SAMANTHA/jacquelinei Workstation ID: [id number] [facility] Chem 7on 04-15-2019 Anion gap [Moles/Vol] 9 mmol/L Low 10 - 20 mmol/L [facility] Chloride [Moles/Vol] 111 mmol/L High 98 - 10 8 mmol/L [facility] Creatinine [Mass/Vol] 0.98 mg/dL 0.8 - 1.3 mg/dL [facility] GFR/1.73 sq M predicted among non-blacks MDRD (S/P/Bld) [Vol rate/Area] The eGFR should be used for monitoring renal function only and not for medication dosing. [facility] GFR/1.73 sq M.predicted CKD-EPI (S/P/Bld) [Vol rate/Area] 82 >=60 mL/min/1.73 m2 [facility] Glucose [Mass/Vol] 100 mg/dL High 65 - 99 mg/dL [facility] HCO3 [Moles/Vol] 28 mmol/L 21 - 32 mmol/L [facility] Interpretation and review of laboratory results Abnormal [facility] Potassium [Moles/Vol] 4.7 mmol/L 3.5 - 5.1 mmol/L [facility] Sodium [Moles/Vol] 143 mmol/L 135 - 145 mmol/L [facility] Urea nitrogen [Mass/Vol] 13 mg/dL 8 - 25 mg/dL [facility] Urea nitrogen/Creatinine [Mass ratio] 13.3 mg/mg [facility] Stress test only, exerciseon 05-30-2018 Baseline BP 146/97 Invalid Interpretation Code mmHg [facility] Baseline HR 85 Invalid Interpretation Code bpm [facility] Estimated workload 10.9 Invalid Interpretation Code METS [facility] Exercise duration (min) 9 min Invalid Interpretation Code [facility] Exercise duration (sec) 30 Invalid Interpretation Code sec [facility] Percent of predicted max HR 91 % Invalid Interpretation Code [facility] Post peak BP 205/100 Invalid Interpretation Code mmHg [facility] Post peak HR 144 Invalid Interpretation Code bpm [facility] ST Elevation (mm) 0 mm Invalid Interpretation Code [facility] Target HR 135 Invalid Interpretation Code bpm [facility] No diagnostic ECG changes at maximal workload. Figueredo treadmill score 9 consistent with low-risk study and an annual cardiovascular mortality of <1%. Hypertensive blood pressure response to exercise. No significant arrhythmias noted with exercise or into recovery. Invalid Interpretation Code [facility] Alcohol, Medicalon 9 Ethanol mass conc Negative Normal [facility] Comment on above: Performed By: #### C BCDIF, PT, PTT, CMET, EDCTNI #### Unless otherwise noted, all testing performed by [place] [id number] CLIA: [id number] [employer] Operator: Cameron Vanegas M.D. CT AORTIC DISSECTIONon 05-26 CT AORTIC DISSECTION Final Report * Accession No: [id number] Performed: May 26 2018 10:57AM Examination: CT AORTIC DISSECTION EXAM: CT AORTIC DISSECTION CLINICAL STATEMENT: Chest pain. COMPARISON: Chest, abdomen, and pelvis CT 08/04/2017. TECHNIQUE: CTA was performed of the chest, abdomen, and pelvis with and without 75 mL of Isovue-[id number]. Dose reduction techniques were achieved by using automated exposure control and/or adjustment of mA and/or kV according to patient size and/or use of iterative reconstruction technique. FINDINGS: There is no axillary or mediastinal thoracic adenopathy. Borderline cardiomegaly. No pericardial fluid. Mild atelectasis is present in both lung bases. No consolidation or effusion. Central airways are patent. There is very mild central bronchial wall thickening noted. Solid upper abdominal viscera demonstrate no acute abnormalities. No adrenal mass or adenopathy. No obstructive uropathy. Liver is chronically fatty infiltrated. No bowel obstruction or inflammation. Normal appendix. No pelvic adenopathy or ascites. Prostate and bladder are age-appropriate. CTA images demonstrate no evidence of thoracic or abdominal aortic aneurysm or dissection. SMA and celiac arteries are patent. The abdominal aorta is ectatic but measures no more than 2.8 cm in diameter. Central pulmonary arteries are patent as well to the lobar level. No suspicious lytic or sclerotic osseous lesions. Chronic multilevel facet arthropathy with pedicle screws at L2-L3. IMPRESSION: 1. No evidence of aortic aneurysm or dissection. 2. No evidence of central pulmonary embolism. 3. There is a mild degree of bronchial wall thickening which could be seen in bronchitis. No evidence of mucous plug or pulmonary consolidation. Correlate with numerous chronic and postsurgical findings as otherwise documented. Interpreting Physician: KHRIS CHAN M.D. Trans: mh : cc: Normal [facility] Cardiac Troponin-Ion 019 Troponin I.cardiac mass conc ng/mL Normal < 45.0 [facility] Comment on above: Result Comment: Elev ation of troponin indicates some degree of myocardial necrosis but unless there is a significant rise and/or fall (if elevated) identified, it unlikely that an acute event has taken place Samples from patients routinely receiving high dose biotin therapy (100-300 mg/day) may show falsely decreased results. Please correlate clinically. Performed By: #### C BCDIF, PT, PTT, CMET, EDCTNI #### Unless otherwise noted, all [place] [address] CLIA: [id number] [employer] Operator: Cameron Vanegas M.D. Troponin I.cardiac mass conc No Biomarker evidence of myocardial injury within the past 14 hours. [facility] Comment on above: Performed By: #### C BCDIF, PT, PTT, CMET, EDCTNI #### Unless otherwise noted, all [place] [address] CLIA: [id number] [employer] Operator: Cameron Vanegas M.D. Troponin I.cardiac mass conc No Biomarker evidence of myocardial injury within the past 14 hours. [facility] Comment on above: Performed By: #### C BCDIF, PT, PTT, CMET, EDCTNI #### Unless otherwise noted, all [place] [address] CLIA: [id number] [employer] Operator: Cameron Vanegas M.D. Troponin I.cardiac mass conc ng/mL Normal < 45.0 [facility] Comment on above: Result Comment: Elev ation of troponin indicates some degree of myocardial necrosis but unless there is a significant rise and/or fall (if elevated) identified, it unlikely that an acute event has taken place Samples from patients routinely receiving high dose biotin therapy (100-300 mg/day) may show falsely decreased results. Please correlate clinically. Performed By: #### C BCDIF, PT, PTT, CMET, EDCTNI #### Unless otherwise noted, all [place] [address] CLIA: [id number] [employer] Operator: Cameron Vanegas M.D. Troponin I.cardiac mass conc ng/mL Normal < 45.0 [facility] Comment on above: Result Comment: Elev ation of troponin indicates some degree of myocardial necrosis but unless there is a significant rise and/or fall (if elevated) identified, it unlikely that an acute event has taken place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 08:10-0500 Body mass index (BMI) [Ratio] 29.02 kg/m2 Jeremy Segovia MD Work Phone: [facility] 05-12-2024 08:10-0500 Body weight 97.07 kg Jeremy Segovia MD Work Phone: [facility] 05-12-2024 08:10-0500 Diastolic blood pressure 82 mm[Hg] Jeremy Segovia MD Work Phone: [facility] 05-12-2024 08:10-0500 Heart rate 71 /min Jeremy Segovia MD Work Phone: [facility] 05-12-2024 08:10-0500 SaO2% (BldA) [Mass fraction] 93 % Jeremy Segovia MD Work Phone: [facility] 05-12-2024 08:10-0500 Systolic blood pressure 135 mm[Hg] Jeremy Segovia MD Work Phone: [facility] 02-07-2024 14:07-0400 Body height 182.9 cm Jacquelyn Hannon MD Work Phone: [facility] 02-07-2024 14:07-0400 Body mass index (BMI) [Ratio] 29.84 kg/m2 Jacquelyn Hannon MD Work Phone: [facility] 02-07-2024 14:07-0400 Body temperature 100.09 [degF] Jacquelyn Hannon MD Work Phone: [facility] 02-07-2024 14:07-0400 Body weight 99.79 kg Jacquelyn Hannon MD Work Phone: [facility] 02-07-2024 14:07-0400 Diastolic blood pressure 86 mm[Hg] Jacquelyn Hannon MD Work Phone: [facility] 02-07-2024 14:07-0400 Heart rate 78 /min Jacquelyn Hannon MD Work Phone: [facility] 02-07-2024 14:07-0400 Respiratory rate 16 /min Jacquelyn Hannon MD Work Phone: [facility] 02-07-2024 14:07-0400 SaO2% (BldA) [Mass fraction] 96 % Jacquelyn Hannon MD Work Phone: [facility] 02-07-2024 14:07-0400 Systolic blood pressure 131 mm[Hg] Jacquelyn Hannon MD Work Phone: [facility] 01-26-2024 12:58-0400 Blood Pressure Location Paulette ROBUCK [facility] 01-26-2024 12:58-0400 Diastolic blood pressure 82 mm[Hg] Paulette ROBUCK [facility] 01-26-2024 12:58-0400 Heart rate 69 /min Paulette ROBUCK [facility] 01-26-2024 12:58-0400 Respiratory rate 17 /min Paulette ROBUCK [facility] 01-26-2024 12:58-0400 SaO2% (BldA) [Mass fraction] 96 % Paulette ROBUCK [facility] 01-26-2024 12:58-0400 Systolic blood pressure 128 mm[Hg] Paulette ROBUCK [facility] 10-28-2023 14:18-0400 Blood Pressure Location Paulette ROBUCK [facility] 10-28-2023 14:18-0400 Diastolic blood pressure 81 mm[Hg] Paulette ROBUCK [facility] 10-28-2023 14:18-0400 Heart rate 81 /min Paulette ROBUCK [facility] 10-28-2023 14:18-0400 SaO2% (BldA) [Mass fraction] 96 % Paulette ROBUCK [facility] 10-28-2023 14:18-0400 Systolic blood pressure 131 mm[Hg] Paulette ROBUCK [facility] 09-27-2023 14:19-0400 Blood Pressure Location Rayo VALENTEWOOD [facility] 09-27-2023 14:19-0400 Body temperature 98.24 [degF] Rayo THEODORE [facility] 09-27-2023 14:19-0400 Diastolic blood pressure 83 mm[Hg] Rayo THEODORE [facility] 09-27-2023 14:19-0400 Heart rate 86 /min Rayo THEODORE [facility] 09-27-2023 14:19-0400 Respiratory rate 18 /min Rayo JAIMES [facility] 09-27-2023 14:19-0400 SaO2% (BldA) [Mass fraction] 98 % Rayo JAIMES [facility] 09-27-2023 14:19-0400 Systolic blood pressure 123 mm[Hg] Rayo JAIMES [facility] 05-05-2023 08:59-0500 Blood Pressure Location Vanessa Ebonytenauer [facility] 05-05-2023 08:59-0500 Diastolic blood pressure 81 mm[Hg] Avnessa Wittenauer [facility] 05-05-2023 08:59-0500 Heart rate 91 /min [place] Wittenauer [facility] 05-05-2023 08:59-0500 SaO2% (BldA) [Mass fraction] 95 % [place] Ebonytenauer [facility] 05-05-2023 08:59-0500 Systolic blood pressure 133 mm[Hg] [place] Wittenauer [facility] 01-20-2023 04:47-0400 Heart rate 82 /min Mariel [facility]acios MD [facility] [employer] 01-20-2023 04:47-0400 Respiratory rate 27 /min Mariel Palacios MD [facility] [employer] 01-20-2023 04:47-0400 SaO2% (BldA) [Mass fraction] 95 % Mariel Palacios MD [facility] [employer] 01-20-2023 03:47-0400 Body height 182.9 cm Mariel Palacios MD Work Phone: [facility] [employer] 01-20-2023 03:47-0400 Body mass index (BMI) [Ratio] 31.17 kg/m2 Mariel Palacios MD Work Phone: [facility] [employer] 01-20-2023 03:47-0400 Body temperature 98.49 [degF] Mariel Palacios MD Work Phone: [facility] [employer] 01-20-2023 03:47-0400 Body weight 104.24 kg Mariel Palacios MD Work Phone: [facility] [employer] 01-20-2023 03:47-0400 Diastolic blood pressure 98 mm[Hg] Mariel [facility]acios MD [facility] 01-20-2023 03:47-0400 Systolic blood pressure 148 mm[Hg] Mariel Palacios MD [facility] 01-11-2023 10:53-0400 Blood Pressure Location Paulette CARBALLO [facility] 01-11-2023 10:53-0400 Diastolic blood pressure 68 mm[Hg] Paulette CARBALLO [facility] 01-11-2023 10:53-0400 Heart rate 63 /min Paulette CARBALLO [facility] 01-11-2023 10:53-0400 SaO2% (BldA) [Mass fraction] 98 % Paulette ROBMORA [facility] 01-11-2023 10:53-0400 Systolic blood pressure 104 mm[Hg] Paulette ROBMORA [facility] 12-11-2022 11:04-0400 Body mass index (BMI) [Ratio] 31.63 kg/m2 Julio C Zheng PA-C Work Phone: [facility] 12-11-2022 11:04-0400 Body temperature 98.1 [degF] Julio C Zheng PA-C Work Phone: [facility] 12-11-2022 11:04-0400 Body weight 105.78 kg Julio C Zheng PA-C Work Phone: [facility] 12-11-2022 11:04-0400 Diastolic blood pressure 79 mm[Hg] Julio C Zheng PA-C Work Phone: [facility] 12-11-2022 11:04-0400 Heart rate 70 /min Julio C Zheng PA-C Work Phone: [facility] 12-11-2022 11:04-0400 SaO2% (BldA) [Mass fraction] 97 % Julio C Zheng PA-C Work Phone: [facility] 12-11-2022 11:04-0400 Systolic blood pressure 122 mm[Hg] Julio C Zheng PA-C Work Phone: [facility] 10-02-2022 12:16-0400 Body temperature 98.01 [degF] Tutu Mancera RN [facility] 10-02-2022 12:16-0400 Diastolic blood pressure 80 mm[Hg] Tutu Mancera RN [facility] 10-02-2022 12:16-0400 Heart rate 76 /min Tutu Mancera RN [facility] 10-02-2022 12:16-0400 Respiratory rate 12 /min Tutu Mancera RN [facility] 10-02-2022 12:16-0400 SaO2% (BldA) [Mass fraction] 98 % Ttuu Mancera RN [facility] 10-02-2022 12:16-0400 Systolic blood pressure 122 mm[Hg] Tutu Mancera RN [facility] 09-28-2022 09:39-0400 Body height 182.9 cm Babita Valdez PA-C Work Phone: [facility] 09-28-2022 09:39-0400 Body mass index (BMI) [Ratio] 32.28 kg/m2 Babita Valdez PA-C Work Phone: [facility] 09-28-2022 09:39-0400 Body temperature 97.59 [degF] Babita Valdez PA-C Work Phone: [facility] 09-28-2022 09:39-0400 Body weight 107.96 kg Babita Valdez PA-C Work Phone: [facility] 09-28-2022 09:39-0400 Diastolic blood pressure 75 mm[Hg] Babita Valdez PA-C Work Phone: [facility] 09-28-2022 09:39-0400 Heart rate 75 /min Babita Valdez PA-C Work Phone: [facility] 09-28-2022 09:39-0400 SaO2% (BldA) [Mass fraction] 94 % Babita Valdez PA-C Work Phone: [facility] 09-28-2022 09:39-0400 Systolic blood pressure 118 mm[Hg] Babita Valdez PA-C Work Phone: [facility] 09-23-2022 08:55-0400 Body temperature 97.9 [degF] Tutu Mancera [facility] 09-23-2022 08:55-0400 Diastolic blood pressure 70 mm[Hg] Tutu Mancera [facility] 09-23-2022 08:55-0400 Heart rate 60 /min Tutu Mancera [facility] 09-23-2022 08:55-0400 Respiratory rate 12 /min Tutu Mancera [facility] 09-23-2022 08:55-0400 SaO2% (BldA) [Mass fraction] 97 % Tutu Mancera [facility] 09-23-2022 08:55-0400 Systolic blood pressure 112 mm[Hg] Tutu Mancera RN [facility] 09-21-2022 10:26-0400 Diastolic blood pressure 90 mm[Hg] Babita Valdez PA-C Work Phone: [facility] 09-21-2022 10:26-0400 Heart rate 82 /min Babita Valdez PA-C Work Phone: [facility] 09-21-2022 10:26-0400 Systolic blood pressure 125 mm[Hg] Babita Valdez PA-C Work Phone: [facility] 09-21-2022 10:19-0400 Body height 182.9 cm Babita Valdez PA-C Work Phone: [facility] 09-21-2022 10:19-0400 Body mass index (BMI) [Ratio] 32.55 kg/m2 Babita Valdez PA-C Work Phone: [facility] 09-21-2022 10:19-0400 Body weight 108.86 kg Babita Valdez PA-C Work Phone: [facility] 09-21-2022 10:19-0400 SaO2% (BldA) [Mass fraction] 95 % Babita Valdez PA-C Work Phone: [facility] 09-18-2022 09:16-0400 Body temperature 98.49 [degF] Tutu Mancera RN [facility] 09-18-2022 09:16-0400 Diastolic blood pressure 84 mm[Hg] Tutu Mancera RN [facility] 09-18-2022 09:16-0400 Heart rate 86 /min Tutu Mancera [facility] 09-18-2022 09:16-0400 Respiratory rate 12 /min Tutu Mancera RN [facility] 09-18-2022 09:16-0400 SaO2% (BldA) [Mass fraction] 97 % Tutu Mancera RN [facility] 09-18-2022 09:16-0400 Systolic blood pressure 120 mm[Hg] Tutu Mancera RN [facility] 09-16-2022 11:53-0400 Body height 182.9 cm Abigail Page MD Work Phone: [facility] 09-16-2022 11:53-0400 Body mass index (BMI) [Ratio] 32.67 kg/m2 Abigail Page MD Work Phone: [facility] 09-16-2022 11:53-0400 Body temperature 99.1 [degF] Abigail Page MD Work Phone: [facility] 09-16-2022 11:53-0400 Body weight 109.27 kg Abigail Page MD Work Phone: [facility] 09-16-2022 11:53-0400 Diastolic blood pressure 74 mm[Hg] Abigail Page MD Work Phone: [facility] 09-16-2022 11:53-0400 Heart rate 78 /min Abigail Page MD Work Phone: [facility] 09-16-2022 11:53-0400 Respiratory rate 16 /min Abigail Page MD Work Phone: [facility] 09-16-2022 11:53-0400 SaO2% (BldA) [Mass fraction] 93 % Abigail Page MD Work Phone: [facility] 09-16-2022 11:53-0400 Systolic blood pressure 126 mm[Hg] Abigail Page MD Work Phone: [facility] 09-14-2022 10:59-0400 Body height 182.9 cm Julio C Lankester PA-C Work Phone: [facility] 09-14-2022 10:59-0400 Body mass index (BMI) [Ratio] 32.82 kg/m2 Julio C Lankester PA-C Work Phone: [facility] 09-14-2022 10:59-0400 Body temperature 97.9 [degF] Julio C Lankester PA-C Work Phone: [facility] 09-14-2022 10:59-0400 Body weight 109.77 kg Julio C Lankester PA-C Work Phone: [facility] 09-14-2022 10:59-0400 Diastolic blood pressure 88 mm[Hg] Julio C Lankester PA-C Work Phone: [facility] 09-14-2022 10:59-0400 Heart rate 79 /min Julio C Lankester PA-C Work Phone: [facility] 09-14-2022 10:59-0400 SaO2% (BldA) [Mass fraction] 99 % Julio C Lankester PA-C Work Phone: [facility] 09-14-2022 10:59-0400 Systolic blood pressure 137 mm[Hg] Julio C Zheng PA-C Work Phone: [facility] 09-11-2022 10:31-0400 Body temperature 99.3 [degF] Tutu Mancera RN [facility] 09-11-2022 10:31-0400 Diastolic blood pressure 60 mm[Hg] Tutu Mancera RN [facility] 09-11-2022 10:31-0400 Heart rate 64 /min Tutu Macnera RN [facility] 09-11-2022 10:31-0400 Respiratory rate 12 /min Tutu Mancera RN [facility] 09-11-2022 10:31-0400 SaO2% (BldA) [Mass fraction] 97 % Tutu Mancera RN [facility] 09-11-2022 10:31-0400 Systolic blood pressure 112 mm[Hg] Tutu Mancera RN [facility] 09-10-2022 10:21-0400 Body height 182.9 cm Wood Eng MD Work Phone: [facility] 09-10-2022 10:21-0400 Body mass index (BMI) [Ratio] 32.41 kg/m2 Wood Eng MD Work Phone: [facility] 09-10-2022 10:21-0400 Body temperature 97.81 [degF] Wood Eng MD Work Phone: [facility] 09-10-2022 10:21-0400 Body weight 108.41 kg Wood Eng MD Work Phone: [facility] 09-10-2022 10:21-0400 Diastolic blood pressure 84 mm[Hg] Wood Eng MD Work Phone: [facility] 09-10-2022 10:21-0400 Heart rate 79 /min Wood Eng MD Work Phone: [facility] 09-10-2022 10:21-0400 SaO2% (BldA) [Mass fraction] 93 % Wood Eng MD Work Phone: [facility] 09-10-2022 10:21-0400 Systolic blood pressure 128 mm[Hg] Wood Eng MD Work Phone: [facility] 09-07-2022 10:12-0400 Body height 182.9 cm Maryse Melton PA-C Work Phone: [facility] 09-07-2022 10:12-0400 Body mass index (BMI) [Ratio] 32.01 kg/m2 Maryse Melton PA-C Work Phone: [facility] 09-07-2022 10:12-0400 Body temperature 98.71 [degF] Maryse Melton PA-C Work Phone: [facility] 09-07-2022 10:12-0400 Body weight 107.05 kg Maryse Melton PA-C Work Phone: [facility] 09-07-2022 10:12-0400 Diastolic blood pressure 80 mm[Hg] Maryse Melton PA-C Work Phone: [facility] 09-07-2022 10:12-0400 Heart rate 80 /min Maryse Melton PA-C Work Phone: [facility] 09-07-2022 10:12-0400 SaO2% (BldA) [Mass fraction] 96 % Maryse Melton PA-C Work Phone: [facility] 09-07-2022 10:12-0400 Systolic blood pressure 112 mm[Hg] Maryse Melton PA-C Work Phone: [facility] 09-04-2022 10:08-0400 Body temperature 98.01 [degF] Tutu Mancera RN [facility] 09-04-2022 10:08-0400 Diastolic blood pressure 62 mm[Hg] Tutu Mancera RN [facility] 09-04-2022 10:08-0400 Heart rate 81 /min Tutu Mancera RN [facility] 09-04-2022 10:08-0400 Respiratory rate 12 /min Tutu Mancera RN [facility] 09-04-2022 10:08-0400 SaO2% (BldA) [Mass fraction] 98 % Tutu Mancera RN [facility] 09-04-2022 10:08-0400 Systolic blood pressure 100 mm[Hg] Tutu Fiordaliza RN [facility] 08-31-2022 10:41-0400 Body height 182.9 cm Julio C Marce PA-C Work Phone: [facility] 08-31-2022 10:41-0400 Body mass index (BMI) [Ratio] 32.55 kg/m2 Julio C Zheng PA-C Work Phone: [facility] 08-31-2022 10:41-0400 Body temperature 98.2 [degF] Julio C Zheng PA-C Work Phone: [facility] 08-31-2022 10:41-0400 Body weight 108.86 kg Julio C Zheng PA-C Work Phone: [facility] 08-31-2022 10:41-0400 Diastolic blood pressure 83 mm[Hg] Julio C Zheng PA-C Work Phone: [facility] 08-31-2022 10:41-0400 Heart rate 81 /min Julio C Zheng PA-C Work Phone: [facility] 08-31-2022 10:41-0400 SaO2% (BldA) [Mass fraction] 95 % Julio C Zheng PA-C Work Phone: [facility] 08-31-2022 10:41-0400 Systolic blood pressure 128 mm[Hg] Julio C Zheng PA-C Work Phone: [facility] 08-26-2022 09:17-0400 Body temperature 98.29 [degF] Mariela García RN [facility] 08-26-2022 09:17-0400 Diastolic blood pressure 76 mm[Hg] Mariela García RN [facility] 08-26-2022 09:17-0400 Heart rate 73 /min Mariela García RN [facility] 08-26-2022 09:17-0400 Respiratory rate 16 /min Mariela García RN [facility] 08-26-2022 09:17-0400 SaO2% (BldA) [Mass fraction] 97 % Mariela García RN [facility] 08-26-2022 09:17-0400 Systolic blood pressure 116 mm[Hg] Mariela García RN [facility] 08-18-2022 13:11-0400 Body height 182.9 cm Maryse Melton PA-C Work Phone: [facility] 08-18-2022 13:11-0400 Body mass index (BMI) [Ratio] 33.36 kg/m2 Maryse Melton PA-C Work Phone: [facility] 08-18-2022 13:11-0400 Body temperature 98.01 [degF] Maryse Melton PA-C Work Phone: [facility] 08-18-2022 13:11-0400 Body weight 111.58 kg Maryse Melton PA-C Work Phone: [facility] 08-18-2022 13:11-0400 Diastolic blood pressure 75 mm[Hg] Maryse Melton PA-C Work Phone: [facility] 08-18-2022 13:11-0400 Heart rate 91 /min Maryse Melton PA-C Work Phone: [facility] 08-18-2022 13:11-0400 SaO2% (BldA) [Mass fraction] 95 % Maryse Melton PA-C Work Phone: [facility] 08-18-2022 13:11-0400 Systolic blood pressure 114 mm[Hg] Maryse Melton PA-C Work Phone: [facility] 08-13-2022 10:56-0400 Body height 182.9 cm Tutu Mancera RN [facility] 08-13-2022 10:56-0400 Body mass index (BMI) [Ratio] 31.87 kg/m2 Tutu Mancera RN [facility] 08-13-2022 10:56-0400 Body temperature 98.49 [degF] Tutu Mancera RN [facility] 08-13-2022 10:56-0400 Body weight 106.59 kg Tutu Mancera RN [facility] 08-13-2022 10:56-0400 Diastolic blood pressure 82 mm[Hg] Tutu Mancera RN [facility] 08-13-2022 10:56-0400 Heart rate 103 /min Tutu Mancera RN [facility] 08-13-2022 10:56-0400 Respiratory rate 14 /min Tutu Mancera SG [facility] 08-13-2022 10:56-0400 SaO2% (BldA) [Mass fraction] 97 % Tutu Mancera SG [facility] 08-13-2022 10:56-0400 Systolic blood pressure 130 mm[Hg] Tutu Mancera SG [facility] 08-05-2022 10:05-0400 Body height 182.9 cm Mariela Morgan MD Work Phone: [facility] 08-05-2022 10:05-0400 Body mass index (BMI) [Ratio] 32.28 kg/m2 Mariela Morgan MD Work Phone: [facility] 08-05-2022 10:05-0400 Body weight 107.96 kg Mariela Morgan MD Work Phone: [facility] 08-03-2022 10:02-0400 Body height 182.9 cm Wood Eng MD Work Phone: [facility] 08-03-2022 10:02-0400 Body mass index (BMI) [Ratio] 32.28 kg/m2 Wood Eng MD Work Phone: [facility] 08-03-2022 10:02-0400 Body weight 107.96 kg Wood Eng MD Work Phone: [facility] 08-03-2022 10:02-0400 Diastolic blood pressure 82 mm[Hg] Wood Eng MD Work Phone: [facility] 08-03-2022 10:02-0400 Heart rate 87 /min Wood Eng MD Work Phone: [facility] 08-03-2022 10:02-0400 SaO2% (BldA) [Mass fraction] 93 % Wood Eng MD Work Phone: [facility] 08-03-2022 10:02-0400 Systolic blood pressure 120 mm[Hg] Wood Eng MD Work Phone: [facility] 07-13-2022 11:21-0500 Diastolic blood pressure 82 mm[Hg] Paulette CARBALLO [facility] 07-13-2022 11:21-0500 Mean blood pressure 95 mm[Hg] Paulette ROBUCK [facility] 07-13-2022 11:21-0500 Systolic blood pressure 120 mm[Hg] Paulette ROBUCK [facility] 07-13-2022 11:13-0500 Blood Pressure Location Paulette ROBUCK [facility] 07-13-2022 11:13-0500 Diastolic blood pressure 94 mm[Hg] Paulette ROBUCK [facility] 07-13-2022 11:13-0500 Heart rate 90 /min Paulette ROBUCK [facility] 07-13-2022 11:13-0500 SaO2% (BldA) [Mass fraction] 95 % Paulette ROBUCK [facility] 07-13-2022 11:13-0500 Systolic blood pressure 124 mm[Hg] Paulette ROBUCK [facility] 07-07-2022 05:07-0500 Diastolic blood pressure 95 mm[Hg] Chema Webber MD Work Phone: [facility] 07-07-2022 05:07-0500 Heart rate 78 /min Chema Webber MD Work Phone: [facility] 07-07-2022 05:07-0500 Respiratory rate 16 /min Chema Webber MD Work Phone: [facility] 07-07-2022 05:07-0500 SaO2% (BldA) [Mass fraction] 98 % Chema Webber MD Work Phone: [facility] 07-07-2022 05:07-0500 Systolic blood pressure 133 mm[Hg] Chema Webber MD Work Phone: [facility] 07-07-2022 00:56-0500 Body height 182.9 cm Chema Webber MD Work Phone: [facility] 07-07-2022 00:55-0500 Body temperature 97.7 [degF] Chema Webber MD Work Phone: [facility] 07-01-2022 09:35-0500 Body height 182.9 cm Abigail Page MD Work Phone: [facility] 07-01-2022 09:35-0500 Body mass index (BMI) [Ratio] 32.33 kg/m2 Abigail Page MD Work Phone: [facility] 07-01-2022 09:35-0500 Body temperature 98.29 [degF] Abigail Page MD Work Phone: [facility] 07-01-2022 09:35-0500 Body weight 108.14 kg Abigail Page MD Work Phone: [facility] 07-01-2022 09:35-0500 Diastolic blood pressure 79 mm[Hg] Abigail Page MD Work Phone: [facility] 07-01-2022 09:35-0500 Heart rate 81 /min Abigail Page MD Work Phone: [facility] 07-01-2022 09:35-0500 SaO2% (BldA) [Mass fraction] 95 % Abigail Page MD Work Phone: [facility] 07-01-2022 09:35-0500 Systolic blood pressure 121 mm[Hg] Abigail Page MD Work Phone: [facility] 06-26-2022 09:28-0500 Body height 182.9 cm Wood Eng MD Work Phone: [facility] 06-26-2022 09:28-0500 Body mass index (BMI) [Ratio] 31.46 kg/m2 Wood Eng MD Work Phone: [facility] 06-26-2022 09:28-0500 Body weight 105.23 kg Wood Eng MD Work Phone: [facility] 06-26-2022 09:28-0500 Diastolic blood pressure 82 mm[Hg] Wood Eng MD Work Phone: [facility] 06-26-2022 09:28-0500 Heart rate 77 /min Wood Eng MD Work Phone: [facility] 06-26-2022 09:28-0500 Systolic blood pressure 120 mm[Hg] Wood Eng MD Work Phone: [facility] 06-10-2022 11:30-0500 Diastolic blood pressure 84 mm[Hg] Paulette ROBUCK [facility] 06-10-2022 11:30-0500 Mean blood pressure 101 mm[Hg] Paulette ROBUCK [facility] 06-10-2022 11:30-0500 Systolic blood pressure 134 mm[Hg] Paulette ROBUCK [facility] 06-10-2022 11:26-0500 Blood Pressure Location Paulette ROBUCK [facility] 06-10-2022 11:26-0500 Diastolic blood pressure 92 mm[Hg] Paulette ROBUCK [facility] 06-10-2022 11:26-0500 Heart rate 96 /min Paulette ROBUCK [facility] 06-10-2022 11:26-0500 SaO2% (BldA) [Mass fraction] 96 % Paulette ROBUCK [facility] 06-10-2022 11:26-0500 Systolic blood pressure 138 mm[Hg] Paulette ROBUCK [facility] 01-27-2022 12:57-0400 Blood Pressure Location Paulette CARBALLO [facility] 01-27-2022 12:57-0400 Body temperature 98.06 [degF] Paulette CARBALLO [facility] 01-27-2022 12:57-0400 Diastolic blood pressure 84 mm[Hg] Paulette CARBALLO [facility] 01-27-2022 12:57-0400 Heart rate 62 /min Paulette ROBMORA [facility] 01-27-2022 12:57-0400 SaO2% (BldA) [Mass fraction] 94 % Paulette CARBALLO [facility] 01-27-2022 12:57-0400 Systolic blood pressure 134 mm[Hg] Paulette ROBMROA [facility] 12-29-2021 07:57-0400 Body height 182.9 cm Caridad Ream [employer] Work Phone: [facility] 12-29-2021 07:57-0400 Body mass index (BMI) [Ratio] 29.97 kg/m2 Caridad Ream [employer] Work Phone: [facility] 12-29-2021 07:57-0400 Body weight 100.25 kg Caridad Ream [employer] Work Phone: [facility] 12-29-2021 07:57-0400 Diastolic blood pressure 86 mm[Hg] Caridad Ream [employer] Work Phone: [facility] 12-29-2021 07:57-0400 Heart rate 66 /min Caridad Ream [employer] Work Phone: [facility] 12-29-2021 07:57-0400 SaO2% (BldA) [Mass fraction] 98 % Caridad Smith [employer] Work Phone: [facility] 12-29-2021 07:57-0400 Systolic blood pressure 131 mm[Hg] Caridad Smith [employer] Work Phone: [facility] 12-25-2021 10:25-0400 Body height 182.9 cm Julio C Lankester PA-C Work Phone: [facility] 12-25-2021 10:25-0400 Body mass index (BMI) [Ratio] 29.43 kg/m2 Julio C Lankester PA-C Work Phone: [facility] 12-25-2021 10:25-0400 Body temperature 98.49 [degF] Julio C Interianoester PA-C Work Phone: [facility] 12-25-2021 10:25-0400 Body weight 98.43 kg Julio C Interianoester PA-C Work Phone: [facility] 12-25-2021 10:25-0400 Diastolic blood pressure 75 mm[Hg] Julio C Interianoester PA-C Work Phone: [facility] 12-25-2021 10:25-0400 Heart rate 85 /min Julio C Interianoester PA-C Work Phone: [facility] 12-25-2021 10:25-0400 SaO2% (BldA) [Mass fraction] 94 % Julio C Interianoester PA-C Work Phone: [facility] 12-25-2021 10:25-0400 Systolic blood pressure 113 mm[Hg] Julio C Interianoester PA-C Work Phone: [facility] 12-19-2021 10:15-0400 Body height 182.9 cm Julio C Interianoester PA-C Work Phone: [facility] 12-19-2021 10:15-0400 Body mass index (BMI) [Ratio] 29.16 kg/m2 Julio C Lankester PA-C Work Phone: [facility] 12-19-2021 10:15-0400 Body weight 97.52 kg Julio C Zheng PA-C Work Phone: [facility] 12-19-2021 10:15-0400 Diastolic blood pressure 81 mm[Hg] Julio C Marce PA-C Work Phone: [facility] 12-19-2021 10:15-0400 Heart rate 74 /min Julio C Zheng PA-C Work Phone: [facility] 12-19-2021 10:15-0400 SaO2% (BldA) [Mass fraction] 96 % Julio C Zheng PA-C Work Phone: [facility] 12-19-2021 10:15-0400 Systolic blood pressure 128 mm[Hg] Julio C Zheng PA-C Work Phone: [facility] 11-12-2021 11:19-0400 Diastolic blood pressure 90 mm[Hg] Jules Bowman MD Work Phone: [facility] 11-12-2021 11:19-0400 Heart rate 62 /min Jules Bowman MD Work Phone: [facility] 11-12-2021 11:19-0400 Systolic blood pressure 135 mm[Hg] Jules Bowman MD Work Phone: [facility] 11-12-2021 11:08-0400 Body height 182.9 cm Jules Bowman MD Work Phone: [facility] 11-12-2021 11:08-0400 Body mass index (BMI) [Ratio] 30.52 kg/m2 Jules Bowman MD Work Phone: [facility] 11-12-2021 11:08-0400 Body weight 102.06 kg Jules Bowman MD Work Phone: [facility] 11-10-2021 14:05-0400 Body height 182.9 cm Wood Eng MD Work Phone: [facility] 11-10-2021 14:05-0400 Body mass index (BMI) [Ratio] 29.97 kg/m2 Wood Eng MD Work Phone: [facility] 11-10-2021 14:05-0400 Body weight 100.25 kg Wood Eng MD Work Phone: [facility] 11-10-2021 14:05-0400 Diastolic blood pressure 74 mm[Hg] Wood Eng MD Work Phone: [facility] 11-10-2021 14:05-0400 Heart rate 62 /min Wood Eng MD Work Phone: [facility] 11-10-2021 14:05-0400 SaO2% (BldA) [Mass fraction] 96 % Wood Eng MD Work Phone: [facility] 11-10-2021 14:05-0400 Systolic blood pressure 112 mm[Hg] Wood Eng MD Work Phone: [facility] 10-30-2021 09:50-0400 Body height 182.9 cm Jeremy Segovia MD Work Phone: [facility] 10-30-2021 09:50-0400 Body mass index (BMI) [Ratio] 29.84 kg/m2 Jeremy Segovia MD Work Phone: [facility] 10-30-2021 09:50-0400 Body weight 99.79 kg Jeremy Segovia MD Work Phone: [facility] 10-30-2021 09:50-0400 Diastolic blood pressure 82 mm[Hg] Jeremy Segovia MD Work Phone: [facility] 10-30-2021 09:50-0400 Heart rate 88 /min Jeremy Segovia MD Work Phone: [facility] 10-30-2021 09:50-0400 SaO2% (BldA) [Mass fraction] 95 % Jeremy Segovia MD Work Phone: [facility] 10-30-2021 09:50-0400 Systolic blood pressure 122 mm[Hg] Jeremy Segovia MD Work Phone: [facility] 10-21-2021 14:55-0400 SaO2% (BldA) [Mass fraction] 95 % Gregory Corbin DO Work Phone: [facility] [employer] 10-21-2021 12:16-0400 Diastolic blood pressure 89 mm[Hg] Gregory Narvaezbal DO Work Phone: [facility] [employer] 10-21-2021 12:16-0400 Heart rate 65 /min Gregory Corbin DO Work Phone: [facility] [employer] 10-21-2021 12:16-0400 Respiratory rate 19 /min Gregory Narvaezbal DO Work Phone: [facility] [employer] 10-21-2021 12:16-0400 Systolic blood pressure 150 mm[Hg] Gregory Narvaezbal DO Work Phone: [facility] [employer] 10-21-2021 12:09-0400 Body mass index (BMI) [Ratio] 28.48 kg/m2 Gregory Narvaezbal DO Work Phone: [facility] [employer] 10-21-2021 12:09-0400 Body temperature 97.39 [degF] Gregory Corbin DO Work Phone: [facility] [employer] 10-21-2021 12:09-0400 Body weight 95.25 kg Gregory Corbin DO Work Phone: [facility] [employer] 04-07-2021 08:41-0500 Body height 182.9 cm Jeremy Segovia MD Work Phone: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 ambulatory Pt States None PCP Faci lity:[phone] Start: 02-05-2022 ambulatory LUDY GIRON Faci lity:[phone] Start: 01-28-2022 End: 01-28-2022 ambulatory Julio C Zheng PA-C Work Phone: [facility] Comment on above: S/P CABG (coronary a rtery bypass graft) (Primary Dx) Start: 01-27-2022 End: 01-27-2022 Lab Drop off Paulette CARBALLO [facility] Start: 01-27-2022 End: 01-27-2022 Patient encounter procedure Paulette CARBALLO [facility] Start: 01-20-2022 Refill Tia William MA [facility] Comment on above: Medication Refill Start: 01-07-2022 Documentation procedure Carolyn Sutherland DO Work Phone: [facility] Start: 01-01-2022 Orders Only Julio C Zheng PA-C Work Phone: [facility] Comment on above: S/P CABG (coronary a rtery bypass graft) (Primary Dx) Start: 12-29-2021 End: 12-29-2021 Office outpatient visit 15 minutes Caridad Smith CNP Work Phone: [facility] Comment on above: Tobacco abuse (Prima ry Dx); Atrial fibrillation, unspecified type (HCC); Hypervolemia, unspecified hypervolemia type; Benign essential HTN; Hyperlipidemia, unspecified hyperlipidemia type; Coronary artery disease involving [place] coronary artery of [place] heart, unspecified whether angina present; S/P CABG (coronary artery bypass graft) Start: 12-25-2021 End: 12-25-2021 Postop follow up visit related to original px Julio C Zheng PA-C Work Phone: [facility] Comment on above: S/P CABG x 2 Start: 12-22-2021 Orders Only Julio C Zheng PA-C Work Phone: [facility] Comment on above: S/P CABG x 2 (Primar y Dx) Start: 12-19-2021 End: 12-19-2021 Postop follow up visit related to original px Julio C CASTROC Work Phone: [facility] Comment on above: S/P CABG x 2 (Primar y Dx) Start: 12-14-2021 Orders Only Babita CASTROC Work Phone: [facility] Comment on above: S/P CABG (coronary a rtery bypass graft) (Primary Dx) Start: 12-12-2021 Documentation procedure Emperatriz CASTROC Work Phone: [facility] Start: 11-30-2021 Orders Only Babita CASTROC Work Phone: [facility] Comment on above: S/P CABG (coronary a rtery bypass graft) (Primary Dx) Start: 11-24-2021 End: 11-24-2021 Patient encounter procedure Paulette CARBALLO [facility] Start: 11-20-2021 Orders Only Babita CASTROC Work Phone: [facility] Comment on above: S/P CABG (coronary a rtery bypass graft) (Primary Dx) Start: 11-19-2021 Documentation procedure Shani Herrera RN [facility] [facility] Start: 11-12-2021 End: 11-12-2021 Office outpatient new 30 minutes Maryse CASTROC Work Phone: [facility] Comment on above: 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); PAD (peripheral artery disease) ([facility]) Start: 11-11-2021 Orders Only Maryse Melton PA-C Work Phone: [facility] Start: 11-10-2021 Documentation procedure Emperatriz Valdez PA-C Work Phone: [facility] Start: 11-10-2021 End: 11-10-2021 Office outpatient new 45 minutes Wood Eng MD Work Phone: [facility] Comment on above: 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) (Primary Dx) 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) (Primary Dx); PAD (peripheral artery disease) (HCC) Start: 10-30-2021 Orders Only Jeremy herzog MD Work Phone: [facility] Comment on above: Angina, class III (H CC) (Primary Dx); Coronary artery disease, unspecified vessel or lesion type, unspecified whether angina present, unspecified whether [place] or transplanted heart Start: 10-30-2021 End: 10-30-2021 Office outpatient visit 40 minutes Jeremy Segovia MD Work Phone: [facility] Comment on above: Chest discomfort (Pr imary Dx); Coronary artery disease due to lipid rich plaque Start: 10-21-2021 Emergency department patient visit [facility] Start: 10-21-2021 End: 10-21-2021 Emergency department patient visit [facility] DO Work Phone: [facility] ED Comment on above: Chest pain, unspecif ied type (Primary Dx) Start: 04-07-2021 End: 04-07-2021 Office outpatient new 45 minutes Jeremy Segovia MD Work Phone: [facility] Comment on above: Coronary artery dise ase due to lipid rich plaque Start: 03-26-2021 Refill Jeremy herzog MD Work Phone: [facility] Comment on above: Medication Refill Start: 03-17-2021 End: 03-17-2021 Office outpatient visit 15 minutes Mariela Morgan MD Work Phone: [facility] Comment on above: Arthritis of hip (Pr imary Dx) Start: 03-17-2021 Orders Only Mariela Morgan MD Work Phone: [facility] Comment on above: Arthritis of hip (Pr imary Dx); Primary osteoarthritis of right hip Primary osteoarthrit is of right hip (Primary Dx) Start: 01-30-2021 Orders Only Mariela Morgan MD Work Phone: [facility] Comment on above: Pain (Primary Dx) Start: 01-22-2021 Refill Izabella Florence RN [facility] Comment on above: Medication Refill Start: 09-30-2020 End: 09-30-2020 Office outpatient new 30 minutes Gail Garduno CNP Work Phone: [facility] Comment on above: Essential hypertensi on (Primary Dx); Coronary artery disease due to lipid rich plaque; Hyperlipidemia, unspecified hyperlipidemia type; Dysphagia, unspecified type; Hoarseness; Pharyngitis, unspecified etiology; Encounter for screening colonoscopy; Screening for diabetes mellitus; Paresthesia of both feet; Back pain, unspecified back location, unspecified back pain laterality, unspecified chronicity; History of chronic cough; History of tobacco abuse; KP (acute kidney injury) (HCC) Start: 09-13-2020 End: 09-13-2020 [facility] Start: 08-08-2020 End: 08-09-2020 Evaluation and management of inpatient PARAMVIR S BEBA [facility] Start: 08-08-2020 End: 08-09-2020 Evaluation and management of inpatient Jessie Lana Abigail Work Phone: [id number] Comment on above: KP (acute kidney in jury) (HCC) (Primary Dx); Hypokalemia; Essential hypertension Start: 08-02-2020 End: 08-02-2020 Emergency department patient visit BRIANNE URBINA [facility] Start: 08-02-2020 End: 08-02-2020 Emergency department patient visit Brianne Urbina Work Phone: [facility] Comment on above: Essential hypertensi on (Primary Dx); Nonintractable headache, unspecified chronicity pattern, unspecified headache type Start: 07-18-2020 End: 07-18-2020 Orders Only Zhanna Khan Work Phone: [facility] Start: 04-22-2020 End: 04-22-2020 Emergency department patient visit Ava Hui Work Phone: [facility] Comment on above: Pneumonia of both lo wer lobes due to infectious organism (Primary Dx) Start: 02-28-2020 End: 02-28-2020 Emergency department patient visit Jeremy Oly Chao Work Phone: [facility] Start: 11-11-2019 End: 11-11-2019 Emergency department patient visit Brad Dowd Work Phone: [facility] Comment on above: Dental caries (Prima ry Dx); Pain, dental; Right ear pain Start: 06-18-2019 End: 06-26-2019 Evaluation and management of inpatient Marcelo Moe Work Phone: [facility] Comment on above: Current mild episode of major depressive disorder, unspecified whether recurrent (HCC) (Primary Dx) Start: 04-15-2019 End: 04-15-2019 Emergency department patient visit Janina Bro Work Phone: [facility] Comment on above: Cellulitis, unspecif ied cellulitis site (Primary Dx) Start: 12-09-2018 End: 12-09-2018 Emergency department patient visit Aylin Marie Teixeira Work Phone: [facility] Comment on above: Contact dermatitis, unspecified contact dermatitis type, unspecified trigger (Primary Dx) Start: 05-31-2018 End: 05-31-2018 Patient encounter procedure Jo Goyal [facility] Comment on above: Transition Of Care ( 3rd attempt ) Start: 05-30-2018 Patient encounter procedure Rolando bond Facility:[facility] Start: 05-30-2018 End: 05-30-2018 Patient encounter procedure Rolando Constantino Work Phone: [facility] Comment on above: Chest pain, unspecif ied type Start: 05-27-2018 End: 05-27-2018 Patient encounter procedure Jolana Goyal [facility] Comment on above: Transition Of Care ( 1st attempt ) Start: 05-27-2018 End: 05-27-2018 Office outpatient visit 25 minutes Rolando Constantino Work Phone: [facility] Comment on above: Chest pain, unspecif ied type (Primary Dx); Coronary artery disease due to lipid rich plaque; Essential hypertension; Hyperlipidemia, unspecified hyperlipidemia type; Tobacco Abuse; Cocaine abuse (HCC) Start: 05-26-2018 End: 05-26-2018 Patient encounter procedure Mat Garcia Facility:[facility] Start: 02-21-2018 End: 02-21-2018 Emergency department patient visit Bunny Portillo Facility:[facility] Start: 2018 End: 2018 Office outpatient visit 15 minutes Mariela Morgan Work Phone: [facility] Comment on above: Cervical arthritis ( HCC) (Primary Dx) Start: 11-24-2017 End: 11-24-2017 Office outpatient visit 15 minutes Mariela Morgan Work Phone: [facility] Start: 11-03-2017 Patient encounter procedure Mariela Morgan Facility:[facility] Start: 11-03-2017 End: 11-03-2017 Ambulatory Mariela Morgan Work Phone: [facility] Start: 10-29-2017 End: 10-29-2017 Office outpatient visit 15 minutes Mariela Morgan Work Phone: [facility] Start: 10-28-2017 End: 10-28-2017 Office outpatient visit 25 minutes Rolando Constantino Work Phone: [facility] Start: 10-20-2017 End: 10-20-2017 Patient encounter procedure Mairela Morgan Facility:[facility] Start: 09-07-2017 End: 09-07-2017 Ambulatory Mariela Morgan Work Phone: [facility] Start: 08-26-2017 Office/outpatient vi sit, est, level 3 Mariela Morgan Work Phone: [facility] Start: 08-12-2017 Office/outpatient vi sit, est, level 3 Mariela Morgan Work Phone: [facility] Start: 08-04-2017 End: 08-04-2017 Emergency department patient visit Bunny Portillo Facility:[facility] Start: 06-11-2017 End: 06-11-2017 Emergency department patient visit Aylin Bunn Facility:[facility] Start: 03-14-2017 End: 03-14-2017 Emergency department patient visit Omar Rowland Facility:[facility] Start: 01-03-2017 End: 01-03-2017 Ambulatory Ava Thomasbenny Hui Work Phone: [facility] Procedures Date Procedure Procedure Detail Performing Clinician Start: 09-11-2024 Basic metabolic pane l calcium total David Fredy Lee PA-C Work Phone: Start: 09-10-2024 Basic metabolic pane l calcium total David Fredy Lee PA-C Work Phone: Start: 09-09-2024 End: 09-09-2024 Basic metabolic panel calcium total David Fredy Lee PA-C Work Phone: Start: 09-08-2024 Basic metabolic pane l calcium total David Fredy Lee PA-C Work Phone: Start: 09-08-2024 Drug screen quantita tive vancomycin Mariela Lyons [facility],PharmD Start: 09-07-2024 Cul bact xcpt urine blood/stool aerobic isol Aristeo Beavers MD Work Phone: Start: 09-07-2024 End: 09-07-2024 Drainage finger abscess simple Aristeo Beavers MD Work Phone: Start: 04-24-2025 Mri upper extrem oth er than jt w/o & w/contras Sebas CASTROC Work Phone: Start: 09-07-2024 Basic metabolic pane l calcium total Davidtaisha Alejoсветлана CASTROC Work Phone: Start: 09-07-2024 Lipid panel Denilson Esquivel DO Work Phone: Start: 09-06-2024 XR MR CLEAR Sebas FREEMAN-C Work Phone: Start: 09-06-2024 Incision AND drainage D telly Howard PA-C Work Phone: Start: 09-06-2024 Cul bact xcpt urine blood/stool aerobic isol Amrit Walters [employer] Work Phone: Start: 08-11-2024 Assay of troponin quantitative Becca Campa PA-C Work Phone: Start: 08-11-2024 Radiologic exam ches t single view Becca Campa PA-C Work Phone: Start: 08-11-2024 Basic metabolic pane l calcium total Becca Campa PA-C Work Phone: Start: 08-11-2024 Ecg routine ecg w/le ast 12 lds i&r only Surjit Romano DO Work Phone: Start: 05-12-2024 Follow-up visit Follow-up JEREYM SEGOVIA Start: 08-02-2023 X-ray of cervical spine Start: 08-02-2023 X-ray of lumbar spin e, two or three views Start: 01-20-2023 Radiologic exam ches t single view Mariel Palacios MD Work Phone: Start: 01-20-2023 COVID-19, RAPID Mariel Palacios MD Work Phone: Start: 01-20-2023 Basic metabolic pane l calcium total Mariel Palacios MD Work Phone: Start: 01-20-2023 Ecg routine ecg w/le ast 12 lds w/i&r Mariel Palacios MD Work Phone: Start: 07-07-2022 Ct thorax w/contrast material Chema Webber MD Work Phone: Start: 07-07-2022 Ct cervical spine w/ o contrast material Chema Webber MD Work Phone: Start: 07-07-2022 End: 07-07-2022 Radiologic examination knee 3 views Chema Webber MD Work Phone: Start: 07-07-2022 Complete blood count with white cell differential, automated Chema Webber MD Work Phone: Start: 07-07-2022 Comprehensive metabo lic panel Chema Webber MD Work Phone: Start: 05-04-2022 Ct thorax w/o & w/contrast material Emiliana Hernandes MD Work Phone: Start: 01-28-2022 MONITORED CARDIAC RE HAB SESSION Haritha Leon RN Start: 12-25-2021 Ecg routine ecg w/le ast 12 lds w/i&r Julio C Zheng PAYamliC Work Phone: Start: 11-20-2021 History of coronary artery bypass grafting S/P CABG (coronary artery bypass graft) Babita Valdez PAYamilC Work Phone: Start: 10-30-2021 Ecg routine ecg w/le ast 12 lds w/i&r Jeremy Segovia MD Work Phone: Start: 10-21-2021 End: 10-21-2021 Basic metabolic panel calcium total Gregory J Corbin DO Work Phone: Start: 10-21-2021 Radiologic exam ches t single view Gregory Max Corbin DO Work Phone: Start: 10-21-2021 Ecg routine ecg w/le ast 12 lds w/i&r Gregory Max Corbin DO Work Phone: Start: 09-13-2020 Myocardial spect mul tiple studies MEGHA FELIX Start: 09-13-2020 Cv strs tst xers&/or rx cont ecg w/o i&r MEGHA FELIX Start: 08-09-2020 DISCHARGE PATIENT MEGHA FELIX Start: 08-09-2020 INITIATE OXYGEN THER APY PROTOCOL MEGHA FELIX Start: 08-09-2020 Comprehensive metabo lic panel MEGHA FELIX Start: 08-09-2020 Assay of magnesium Edyta michael Johns [employer] Work Phone: Start: 08-09-2020 BASIC METABOLIC PANE L W/ REFLEX TO MG FOR LOW K Artem Johns [employer] Work Phone: Start: 08-09-2020 Blood count complete auto&auto difrntl wbc Artem Johns [employer] Work Phone: Start: 08-09-2020 INTAKE AND OUTPUT MEGHA FELIX Start: 08-08-2020 Ct head/brain w/o contrast material MEGHA FELIX Start: 08-08-2020 Basic metabolic pane l calcium total MEGHA FELIX Start: 08-08-2020 DIET LOW SODIUM 2 GM GR FELIX ISIDRO Start: 08-08-2020 FULL CODE MEGHA HANSON Start: 08-08-2020 INITIATE OXYGEN THER APY PROTOCOL MEGHA FELIX Start: 08-08-2020 INTAKE AND OUTPUT MEGHA FELIX Start: 08-08-2020 NOTIFY PHYSICIAN (SPECIFY) MEGHA FELIX Start: 08-08-2020 REASON FOR NO MECHAN ICAL VTE PROPHYLAXIS MEGHA FELIX Start: 08-08-2020 VITAL SIGNS MEGHA HANSON Start: 08-08-2020 PATIENT STATUS (FROM ED OR OR/PROCEDURAL) MEGHA FELIX Start: 08-08-2020 Ct head/brain w/o contrast material Jessica José Work Phone: Start: 08-08-2020 IP CONSULT TO PLANNING OFFICIAL AL MEDICINE MEGHA FELIX Start: 08-08-2020 INSERT PERIPHERAL IV GR FELIX ISIDRO Start: 08-08-2020 SALINE LOCK IV MEGHA LONG Start: 08-08-2020 Radiologic exam ches t 2 views MEGHA ISIDRO Start: 08-08-2020 Blood count complete auto&auto difrntl wbc MEGHA ISIDRO Start: 08-08-2020 BRAIN NATRIURETIC PEPTIDE MEGHA ISIDRO Start: 08-08-2020 TELEMETRY MONITORING HAJA APARICIOCKEN Start: 08-08-2020 Ecg routine ecg w/le ast 12 lds w/i&r MEGHA ISIDRO Start: 08-08-2020 EKG REPORT MEGHA PEREZ NICOCHRISTOPHER Start: 08-08-2020 Radiologic exam ches t 2 views Christin Valverde Work Phone: Start: 08-08-2020 Assay of magnesium Bruno darra Valverde Work Phone: Start: 08-08-2020 Assay of troponin quantitative Christin Valverde Work Phone: Start: 08-08-2020 Blood count complete auto&auto difrntl wbc Christin Abram Work Phone: Start: 08-08-2020 Comprehensive metabo lic panel Christin Valverde Work Phone: Start: 08-08-2020 Natriuretic peptide Kristine mae Abram Work Phone: Start: 08-08-2020 Ecg routine ecg w/le ast 12 lds i&r only Christin Abram Work Phone: Start: 08-08-2020 EKG REPORT Hpf Scanni ng Start: 08-02-2020 Ct head/brain w/o contrast material MEGHA FELIX Start: 08-02-2020 ED NURSING COMMUNICATION MEGHA FELIX Start: 08-02-2020 Ct head/brain w/o contrast material Xochilt Heard Start: 08-02-2020 Radiologic exam ches t 2 views MEGHA FELIX Start: 08-02-2020 ED NURSING COMMUNICATION MEGHA FELIX Start: 08-02-2020 Radiologic exam ches t 2 views Yousuf Ferraro Work Phone: Start: 08-02-2020 Blood count complete automated MEGHA ISIDRO Start: 08-02-2020 BRAIN NATRIURETIC PEPTIDE MEGHA ISIDRO Start: 08-02-2020 Ecg routine ecg w/le ast 12 lds w/i&r MEGHA ISIDRO Start: 08-02-2020 Assay of magnesium Xochilt L Orquidea Start: 08-02-2020 Assay of troponin quantitative Yousuf Ferraro Work Phone: Start: 08-02-2020 Blood count complete automated Yousuf Ferraro Work Phone: Start: 08-02-2020 Comprehensive metabo lic panel Yousuf Ferraro Work Phone: Start: 08-02-2020 Natriuretic peptide Millie Ferraro Work Phone: Start: 08-02-2020 Ecg routine ecg w/le ast 12 lds w/i&r Yousuf Ferraro Work Phone: Start: 04-22-2020 Basic metabolic 1998 panel - Serum or Plasma Ava Hui Work Phone: Start: 04-22-2020 Complete blood count with white cell differential, automated Ava Hui Work Phone: Start: 04-22-2020 Complete blood count with white cell differential, manual Ava Hui Work Phone: Start: 04-22-2020 COVID-19/INFLUENZA A ,B MOLECULAR Ava Hui Work Phone: Start: 04-22-2020 Radiologic exam ches t single view Ava Hui Work Phone: Start: 02-28-2020 Radiography of hip Step robbin Green Zhanna Work Phone: Start: 06-20-2019 12 lead ECG Archana A milind Egan Work Phone: Start: 06-18-2019 Complete blood count with white cell differential, automated Marcelo Moe Work Phone: Start: 06-18-2019 Complete blood count with white cell differential, manual Marcelo Moe Work Phone: Start: 06-18-2019 Comprehensive metabo lic 2000 panel - Serum or Plasma Marcelo Moe Work Phone: Start: 06-18-2019 Creatine kinase [Enzymatic activity/volume] in Serum or Plasma Marcelo Moe Work Phone: Start: 06-18-2019 Ethanol [Mass/volume ] in Serum or Plasma Marcelo Moe Work Phone: Start: 06-18-2019 Hemoglobin A1c/Hemoglobin.total in Blood Archana Egan Work Phone: Start: 06-18-2019 LIGHT BLUE TOP Marcelo Moe Work Phone: Start: 06-18-2019 LIGHT GREEN TOP Marcelo Moe Work Phone: Start: 06-18-2019 Lipid 1996 panel - S svetlana or Plasma Archana Egan Work Phone: Start: 06-18-2019 RAINBOW DRAW Marcelo Conklin Work Phone: Start: 06-18-2019 Thyrotropin [Units/volume] in Serum or Plasma by Detection limit <= 0.005 mIU/L Archana Egan Work Phone: Start: 06-18-2019 Troponin measurement Ma tthew Vamsi Moe Work Phone: Start: 06-18-2019 Drugs of abuse urine screening test Marcelo Moe Work Phone: Start: 04-15-2019 CT of face Janina Cárdenas roll Work Phone: Start: 04-15-2019 Basic metabolic 1998 panel - Serum or Plasma Janina Bro Work Phone: Start: 04-15-2019 Complete blood count with white cell differential, automated Janina Bro Work Phone: Start: 04-15-2019 Complete blood count with white cell differential, manual Janina Bro Work Phone: Start: 05-30-2018 Cv strs tst xers&/or rx cont ecg w/o i&r Rolando Vira Work Phone: History of coronary artery bypass grafting S/P CABG (coronary artery bypass graft) Babita Valdez PA-C Work Phone: History of coronary artery bypass grafting S/P CABG (coronary artery bypass graft) Babita Valdez PA-C Work Phone: History of coronary artery bypass grafting S/P CABG x 2 Julio C Zheng PA-C Work Phone: History of coronary artery bypass grafting S/P CABG x 2 Julio C Zheng PA-C Work Phone: History of coronary artery bypass grafting S/P CABG x 2 Julio C Zheng PA-C Work Phone: History of coronary artery bypass grafting S/P CABG (coronary artery bypass graft) Caridad Smith [facility] Work Phone: History of coronary artery bypass grafting S/P CABG (coronary artery bypass graft) Julio C Zheng PA-C Work Phone: History of coronary artery bypass grafting S/P CABG (coronary artery bypass graft) Julio C Zheng PA-C Work Phone: Plan of Treatment Date Care Activity Detail Author Start: 09-06-2034 Tetanus vaccination Tetanus: Every 10yrs [facility] Start: 01-03-2027 DTaP/Tdap/Td vaccine (3 - Td or Tdap) DTaP/Tdap/Td vaccine (3 - Td or Tdap) [facility] Start: 01-03-2027 Tetanus vaccination [facility] Start: 01-16-2026 DTaP/Tdap/Td Vaccines (2 - Td or Tdap) DTaP/Tdap/Td Vaccines (2 - Td or Tdap) [facility] Start: 01-16-2026 Tetanus vaccination [facility] Start: 02-12-2025 End: 02-12-2025 ambulatory 02/12/2025 1:00 PM EDT Evaluation [facility] [address] [place] [phone] Mariela Morgan MD [address] [place] [id number] Kaitlyn Mondragon, MARTIN Discharge Disposition: Home [facility] Start: 01-22-2025 End: 01-22-2025 Patient encounter procedure 01/22/2025 2:15 PM EDT Office Visit [facility] [address] [place] [address] [place] [phone] Mariela Morgan MD [address] [place] [id number] [facility] Start: 01-15-2025 COVID-19 Vaccine ( season) COVID-19 Vaccine ( season) [facility] Start: 01-15-2025 Influenza vaccination [facility] Start: 11-10-2024 End: 11-10-2024 Patient encounter procedure [facility] Start: 05-18-2024 End: 05-18-2024 Patient encounter procedure 05/18/2024 10:40 AM EST Office Visit [facility] [address] [place] [address] Aylin Luna, [employer] [address] [place] [address] [facility] Start: 05-17-2024 Medicare Advantage Annual Wellness Visit Medicare Advantage Annual Wellness Visit [facility] Start: 05-12-2024 End: 05-12-2024 Patient encounter procedure 05/12/2024 8:20 AM EST Office Visit [facility] [address] [place] [address] Jeremy Segovia MD [address] [address] [facility] Start: 04-11-2024 End: 04-11-2024 Patient encounter procedure 04/11/2024 1:20 PM EST Office Visit [facility] [address] [place] [address] Aylin Luna, [employer] [address] [place] [address] [facility] Start: 03-09-2024 End: 03-09-2024 Patient encounter procedure 03/09/2024 8:40 AM EDT Office Visit [facility] [address] [place] [phone] Jeremy Segovia MD [address] [id number] [facility] Start: 02-14-2024 End: 02-14-2024 Patient encounter procedure 02/14/2024 9:45 AM EDT Office Visit [facility] [address] [facility] [place] [phone] Mariela Morgan MD [address] [place] [address] [facility] Start: 01-16-2024 COVID-19 Vaccine ( season) COVID-19 Vaccine ( season) [facility] Start: 01-16-2024 COVID-19 Vaccine ( season) COVID-19 Vaccine ( season) [facility] Start: 01-16-2024 Influenza vaccination [facility] Start: 11-27-2023 Screening for malignant neoplasm of lung Low-dose CT Lung Cancer Screen [facility] Start: 11-19-2023 End: 11-19-2023 Patient encounter procedure 11/19/2023 11:00 AM EDT Appointment [facility] [address] [place] [phone] Mariela Morgan MD [address] [place] [address] [facility] Start: 09-01-2023 Screening for malignant neoplasm of lung Low-dose CT Lung Cancer Screen [facility] Start: 01-15-2023 COVID-19 Vaccine () COVID-19 Vaccine () [facility] Start: 01-15-2023 Influenza vaccination [facility] Start: 01-04-2023 Screening for malignant neoplasm of lung Low-dose CT Lung Cancer Screen [facility] Start: 12-31-2022 Screening for malignant neoplasm of lung Low-dose CT Lung Cancer Screen [facility] Start: 12-15-2022 Influenza vaccination Flu vaccine (#1) [facility] Start: 12-08-2022 Screening for malignant neoplasm of lung Low-dose CT Lung Cancer Screen [facility] Start: 11-25-2022 Screening for malignant neoplasm of lung Low-dose CT Lung Cancer Screen [facility] Start: 11-12-2022 CLASS III : OFFICE VISIT CLASS III : OFFICE VISIT [facility] Start: 10-09-2022 End: 10-09-2022 Patient encounter procedure 10/09/2022 9:30 AM EDT Appointment [address] [phone] Tutu Mancera, RN [facility] Start: 10-08-2022 End: 10-08-2022 Patient encounter procedure 10/08/2022 8:00 AM EDT Appointment [address] [phone] Tutu Mancera, RN [facility] Start: 10-05-2022 End: 10-05-2022 Home visit 10/05/2022 12:30 PM EDT Home Care Visit [address] [phone] Tutu Mancera, RN [facility] Start: 10-02-2022 End: 10-02-2022 Home visit 10/02/2022 9:30 AM EDT Home Care Visit [address] [address] Tutu Mancera, RN [facility] Start: 10-02-2022 End: 10-02-2022 Patient encounter procedure 10/02/2022 9:30 AM EDT Appointment [address] [phone] Tutu Mancera, RN [facility] Start: 10-01-2022 End: 10-01-2022 Home visit 10/01/2022 8:00 AM EDT Home Care Visit [address] [address] Tutu Mancera, RN [facility] Start: 09-29-2022 End: 09-29-2022 Patient encounter procedure 09/29/2022 3:15 PM EDT Office Visit [facility] [address] [place] [address] [place] [address] Mariela Morgan MD [address] [place] [address] [facility] Start: 09-29-2022 End: 09-29-2022 Home visit [facility] Start: 09-28-2022 End: 09-28-2022 Follow-up encounter 09/28/2022 10:30 AM EDT Follow-Up [facility] [address] [place] [address] [place] [address] [facility] Start: 09-25-2022 End: 09-25-2022 Home visit 09/25/2022 11:00 AM EDT Home Care Visit [address] [address] Tutu Mancera, RN [facility] Start: 09-24-2022 End: 09-24-2022 Home visit 09/24/2022 8:00 AM EDT Home Care Visit [address] [address] Tutu Mancera, RN [facility] Start: 09-24-2022 End: 09-24-2022 Patient encounter procedure 09/24/2022 8:00 AM EDT Appointment [address] [address] Tutu Mancera, RN [facility] Start: 09-23-2022 End: 09-23-2022 Follow-up encounter 09/23/2022 11:00 AM EDT Follow-Up [facility] [address] [facility] [place] [address] [facility] Start: 09-22-2022 End: 09-22-2022 Home visit 09/22/2022 11:00 AM EDT Home Care Visit [address] [address] Tutu Mancera, RN [facility] Start: 09-21-2022 End: 09-21-2022 Follow-up encounter 09/21/2022 10:30 AM EDT Follow-Up [facility] [address] [facility] [place] [address] [facility] Start: 09-18-2022 End: 09-18-2022 Home visit [facility] Start: 09-17-2022 End: 09-17-2022 Home visit 09/17/2022 8:00 AM EDT Home Care Visit [address] [address] Tutu Mancera, RN [facility] Start: 09-16-2022 End: 09-16-2022 Patient encounter procedure [facility] Start: 09-16-2022 End: 09-16-2022 Follow-up encounter 09/16/2022 10:30 AM EDT Follow-Up [facility] [address] [facility] [place] [address] [facility] Start: 09-15-2022 End: 09-15-2022 Home visit 09/15/2022 11:00 AM EDT Home Care Visit [address] [phone] Tutu Mancera, RN [facility] Start: 09-14-2022 End: 09-14-2022 Follow-up encounter 09/14/2022 10:30 AM EDT Follow-Up [facility] [address] [facility] [place] [address] [facility] Start: 09-11-2022 End: 09-11-2022 Home visit 09/11/2022 2:00 PM EDT Home Care Visit [address] [address] Tutu Mancera, RN [facility] Start: 09-10-2022 End: 09-10-2022 Follow-up encounter 09/10/2022 11:00 AM EDT Follow-Up [facility] [address] [facility] [place] [address] [facility] Start: 09-10-2022 End: 09-10-2022 Home visit 09/10/2022 9:30 AM EDT Home Care Visit [address] [address] Tutu Mancera, RN [facility] Start: 09-09-2022 End: 09-09-2022 Home visit [facility] Start: 09-07-2022 End: 09-07-2022 Home visit 09/07/2022 11:00 AM EDT Home Care Visit [address] [phone] Tutu Mancera, RN [facility] Start: 09-07-2022 End: 09-07-2022 Patient encounter procedure 09/07/2022 10:00 AM EDT Office Visit [facility] [address] [facility] [place] [address] [facility] Start: 09-04-2022 End: 09-04-2022 Home visit [facility] Start: 09-04-2022 End: 09-04-2022 Patient encounter procedure 09/04/2022 8:00 AM EDT Appointment [address] [address] Tutu Mancera, RN [facility] Start: 09-01-2022 End: 09-01-2022 Home visit [facility] Start: 09-01-2022 End: 09-01-2022 Admission to same day surgery center 09/01/2022 9:00 AM EDT - 09/01/2022 10:00 AM EDT Surgery [facility] [address] [place] [address] Florencio Chambers MD [address] [facility] [address] [place] [address] VR Aspiration Sternal seroma [facility] Comment on above: VR Aspiration Sternal seroma Start: 08-31-2022 End: 08-31-2022 Follow-up encounter 08/31/2022 10:30 AM EDT Follow-Up [facility] [address] [facility] [place] [address] [facility] Start: 08-27-2022 End: 08-27-2022 Home visit 08/27/2022 8:00 AM EDT Home Care Visit [address] [address] Tutu Mancera, RN [facility] Start: 08-25-2022 End: 08-25-2022 Home visit 08/25/2022 11:00 AM EDT Home Care Visit [address] [address] Tutu Mancera, RN [facility] Start: 08-20-2022 End: 08-20-2022 Home visit 08/20/2022 2:00 PM EDT Home Care Visit [address] [address] Tutu Manecra, RN [facility] Start: 08-19-2022 End: 08-19-2022 Follow-up encounter 08/19/2022 10:00 AM EDT Follow-Up [facility] [address] [facility] [place] [address] [facility] Start: 08-19-2022 End: 08-19-2022 Anesthesia consultation 08/19/2022 7:25 AM EDT Anesthesia Event [facility] [address] [place] [address] Nacho Cornell MD [address] [place] [address] [facility] Start: 08-19-2022 End: 08-19-2022 BRING BACK OPEN HEART BRING BACK OPEN HEART DISRUPTION OF CLOSURE OF STERNOTOMY 08/19/2022 7:25 AM EDT [facility] Start: 08-19-2022 End: 08-19-2022 Evaluation and management of inpatient 08/19/2022 7:25 AM EDT - 08/19/2022 9:42 AM EDT Surgery [facility] [address] [place] [address] Wood Eng MD [address] [place] [address] STERNAL WOUND EXPLORATION [facility] Comment on above: STERNAL WOUND EXPLORATION Start: 08-18-2022 End: 08-18-2022 Home visit 08/18/2022 12:30 PM EDT Home Care Visit [address] [address] Tutu Mancera RN [facility] Start: 08-06-2022 End: 08-06-2022 Admission to same day surgery center 08/06/2022 Surgery Wood Eng MD [address] [place] [address] STERNAL REWIRE WITH POSSIBLE PLATING [facility] Comment on above: STERNAL REWIRE WITH POSSIBLE PLATING Start: 08-06-2022 End: 08-06-2022 Anesthesia consultation 08/06/2022 Anesthesia Event Benigno Singletary MD [address] [place] [address] [facility] Start: 08-06-2022 End: 08-06-2022 STERNAL WIRING STERNAL WIRING STERNAL DEHISCENCE 08/06/2022 7:20 AM EDT [facility] Start: 08-06-2022 Subsequent hospital visit by physician 08/06/2022 Hospital Encounter Wood Eng MD [address] [place] [address] [facility] Start: 08-05-2022 End: 08-05-2022 Patient encounter procedure 08/05/2022 Office Visit Orthopedic Surgery Mariela Morgan MD [address] [place] [address] [facility] Start: 07-30-2022 End: 07-30-2022 Patient encounter procedure 07/30/2022 Appointment Radiology Julio C Zheng PA-C [address] [place] [address] [facility] Start: 07-21-2022 Subsequent hospital visit by physician 07/21/2022 Hospital Encounter Radiology Mariela Morgan MD [address] [place] [address] [facility] Start: 07-13-2022 End: 07-13-2022 Patient encounter procedure 07/13/2022 Office Visit Orthopedic Surgery Mariela Morgan MD [address] [place] [address] [facility] Start: 07-01-2022 End: 07-01-2022 Patient encounter procedure 07/01/2022 Office Visit Pulmonology Abigail Page MD [address] [facility] [address] [address] [facility] Start: 05-19-2022 End: 05-19-2022 Patient encounter procedure 05/19/2022 Office Visit Cardiology Ruchi Markham, LACE MENDER - MUSEUM HOST/HOSTESS [address] [address] [facility] Start: 04-30-2022 End: 04-30-2022 Patient encounter procedure 04/30/2022 Office Visit Cardiology Jeremy Segovia MD [address] [address] [facility] Start: 04-27-2022 End: 12-29-2022 Lipid 1996 panel - Serum or Plasma Lipid panel Lab Routine Hyperlipidemia, unspecified hyperlipidemia type Expected: 04/27/2022, Expires: 12/29/2022 [facility] Work Phone: Comment on above: Expected: 04/27/2022, Expires: Start: 04-22-2022 End: 04-22-2022 ambulatory 04/22/2022 [facility] [address] [place] [address] [facility] Start: 04-20-2022 End: 04-20-2022 ambulatory 04/20/2022 [facility] [address] [facility] [place] [address] [facility] Start: 04-16-2022 End: 04-16-2022 ambulatory 04/16/2022 Treatment Cardiac Julio C Damon PA-C [address] [place] [address] [facility] Start: 04-15-2022 End: 04-15-2022 ambulatory 04/15/2022 [facility] [address] [place] [address] [facility] Start: 04-13-2022 FQ visit new patient Medical New Patient Dr.Gene Bahena [facility] Work Phone: Start: 04-13-2022 End: 04-13-2022 ambulatory 04/13/2022 Treatment Cardiac Julio C Damon PA-C [address] [place] [address] [facility] Start: 04-08-2022 End: 04-08-2022 ambulatory 04/08/2022 Treatment Cardiac Julio C Damon PA-C [address] [place] [address] [facility] Start: 04-06-2022 End: 04-06-2022 ambulatory 04/06/2022 Treatment Cardiac Rehabilitation Julio C Zheng PA-C [address] [place] [address] [facility] Start: 04-02-2022 End: 04-02-2022 ambulatory 04/02/2022 Treatment Cardiac Julio C Damon PA-C [address] [place] [address] [facility] Start: 04-01-2022 End: 04-01-2022 ambulatory 04/01/2022 Treatment Cardiac Rehabilitation Julio C Zheng PA-C [address] [place] [address] [facility] Start: 03-30-2022 End: 03-30-2022 ambulatory 03/30/2022 Treatment Cardiac Rehabilitation Julio C Zheng PA-C [address] [facility] [place] [address] [facility] Start: 03-26-2022 End: 03-26-2022 ambulatory 03/26/2022 Treatment Cardiac Rehabilitation Julio C Zheng PA-C [address] [place] [address] [facility] Start: 03-25-2022 End: 03-25-2022 ambulatory 03/25/2022 Treatment Cardiac Rehabilitation Julio C Zheng PA-C [address] [place] [address] [facility] Start: 03-23-2022 End: 03-23-2022 ambulatory 03/23/2022 Treatment Cardiac Julio C Damon PA-C [address] [address] [facility] Start: 03-19-2022 End: 03-19-2022 ambulatory 03/19/2022 Treatment Cardiac Rehabilitation Julio C Zheng PA-C [address] [place] [address] [facility] Start: 03-18-2022 End: 03-18-2022 ambulatory 03/18/2022 Treatment Cardiac Julio C Damon PA-C [address] [place] [address] [facility] Start: 03-16-2022 End: 03-16-2022 ambulatory 03/16/2022 Treatment Cardiac Rehabilitation Julio C Zheng PA-C [address] [place] [address] [facility] Start: 03-12-2022 End: 03-12-2022 ambulatory 03/12/2022 Treatment Cardiac Julio C Damon PA-C [address] [place] [address] [facility] Start: 03-11-2022 End: 03-11-2022 ambulatory 03/11/2022 Treatment Cardiac Rehabilitation Julio C Zheng PA-C [address] [place] [address] [facility] Start: 03-09-2022 End: 03-09-2022 ambulatory 03/09/2022 Treatment Cardiac Julio C Damon PA-C [address] [place] [address] [facility] Start: 03-05-2022 End: 03-05-2022 ambulatory 03/05/2022 Treatment Cardiac Julio C Damon PA-C [address] [place] [address] [facility] Start: 03-04-2022 End: 03-04-2022 ambulatory 03/04/2022 Treatment Cardiac Rehabilitation LaishaJulio C garrett PA-C [address] [place] [address] [facility] Start: 03-02-2022 End: 03-02-2022 ambulatory 03/02/2022 Treatment Cardiac Rehabilitation LaishaJulio C garrett PA-C [address] [place] [address] [facility] Start: 02-26-2022 End: 02-26-2022 ambulatory 02/26/2022 Treatment Cardiac Rehabilitation LaishaJulio C garrett PA-C [address] [place] [address] [facility] Start: 02-25-2022 End: 02-25-2022 ambulatory 02/25/2022 Treatment Cardiac Rehabilitation LaishaJulio C garrett PA-C [address] [place] [address] [facility] Start: 02-23-2022 End: 02-23-2022 ambulatory 02/23/2022 Treatment Cardiac Rehabilitation LaishaJulio C garrett PA-C [address] [place] [address] [facility] Start: 02-19-2022 End: 02-19-2022 ambulatory 02/19/2022 Treatment Cardiac Rehabilitation LaishaJulio C garrett PA-C [address] [place] [address] [facility] Start: 02-18-2022 End: 02-18-2022 ambulatory 02/18/2022 [facility] [address] [place] [address] [facility] Start: 02-16-2022 End: 02-16-2022 ambulatory 02/16/2022 Treatment Cardiac Rehabilitation Julio C Zheng PA-C [address] [place] [address] [facility] Start: 02-12-2022 End: 02-12-2022 ambulatory 02/12/2022 Treatment Cardiac Rehabilitation Julio C Zheng PA-C [address] [place] [address] [facility] Start: 02-11-2022 End: 02-11-2022 ambulatory 02/11/2022 Treatment Cardiac [facility] Julio C Zheng PA-C [address] [place] [address] [facility] Start: 02-09-2022 End: 02-09-2022 ambulatory 02/09/2022 Treatment Cardiac [facility] Julio C Zheng PA-C [address] [place] [address] [facility] Start: 02-06-2022 End: 02-06-2022 Patient encounter procedure 02/06/2022 Office Visit Pain Medicine Prok, Peña Arora MD [address] [place] [address] [facility] Start: 02-05-2022 End: 02-05-2022 ambulatory 02/05/2022 Treatment Cardiac Rehabilitation Julio C Zheng PA-C [address] [place] [address] [facility] Start: 02-04-2022 End: 02-04-2022 ambulatory 02/04/2022 Treatment Cardiac Rehabilitation Julio C Zheng PA-C [address] [facility] [address] [facility] Start: 2022 Abdominal aortic aneurysm screening [facility] Start: 2022 Fall risk assessment Falls Risk Assessment [facility] Start: 2022 End: 2022 ambulatory 2022 Treatment Cardiac Rehabilitation Julio C Zheng PA-C [address] [place] [address] [facility] Start: 01-29-2022 End: 01-29-2022 ambulatory 01/29/2022 Treatment Cardiac Rehabilitation Julio C Zheng PA-C [address] [place] [address] [facility] Start: 01-28-2022 End: 01-28-2022 ambulatory 01/28/2022 Treatment Cardiac Rehabilitation Julio C Zheng PA-C [address] [place] [address] [facility] Start: 01-26-2022 End: 01-26-2022 ambulatory 01/26/2022 Treatment Cardiac Rehabilitation Julio C Zheng PA-C [address] [place] [address] [facility] Start: 01-22-2022 End: 01-22-2022 ambulatory 01/22/2022 Treatment Cardiac Rehabilitation Julio C Zheng PA-C [address] [place] [address] [facility] Start: 01-21-2022 End: 01-21-2022 ambulatory 01/21/2022 Treatment Cardiac Rehabilitation LaishaJulio C garrett PA-C [address] [place] [address] [facility] Start: 01-15-2022 Influenza vaccination [facility] Start: 01-15-2022 End: 01-15-2022 ambulatory 01/15/2022 Treatment Cardiac [facility] LaishaJulio C garrett PA-C [address] [place] [address] [facility] Start: 01-14-2022 End: 01-14-2022 ambulatory 01/14/2022 Treatment Cardiac [facility] LaishaJulio C garrett PA-C [address] [place] [address] [facility] Start: 01-12-2022 End: 01-12-2022 ambulatory 01/12/2022 [facility] [address] [place] [address] [facility] Start: 01-09-2022 End: 01-09-2022 Patient encounter procedure 01/09/2022 Office Visit Pain Medicine Julio C Zheng PA-C [address] [place] [address] Peña Hitchcock MD [address] [place] [address] [facility] Start: 12-29-2021 End: 12-29-2021 Patient encounter procedure 12/29/2021 Office Visit Cardiology Caridad Smith, JAYLEN [address] [place] [address] [facility] Start: 12-25-2021 End: 12-25-2021 Follow-up encounter 12/25/2021 Follow-Up Cardiology [facility] Start: 12-18-2021 End: 12-18-2021 Follow-up encounter 12/18/2021 Follow-Up Cardiology [facility] Start: 12-15-2021 Influenza vaccination Flu vaccine (#1) [facility] Start: 12-04-2021 End: 12-04-2021 Follow-up encounter 12/04/2021 Follow-Up Cardiology [facility] Start: 11-20-2021 End: 11-20-2021 Admission to same day surgery center 11/20/2021 Surgery Wood Eng MD [address] [place] [address] CORONARY ARTERY BYPASS GRAFT WITH RADIAL ARTERY HARVEST AND DAVIS/INGRID [facility] Comment on above: CORONARY ARTERY BYPASS GRAFT WITH RADIAL ARTERY HARVEST AND DAVIS/INGRID Start: 11-20-2021 End: 11-20-2021 Anesthesia consultation 11/20/2021 Anesthesia Event Nacho Cornell MD [address] [place] [address] [facility] Start: 11-20-2021 Subsequent hospital visit by physician 11/20/2021 Hospital Encounter Wood Eng MD [address] [place] [address] [facility] Start: 11-20-2021 End: 11-20-2021 CORONARY ARTERY BYPASS GRAFT WITH RADIAL ARTERY HARVEST [facility] Start: 11-18-2021 End: 11-18-2021 Patient encounter procedure 11/18/2021 Appointment Cardiology Jules Bowman MD [address] [place] [address] [facility] Start: 11-12-2021 End: 12-12-2021 Upper extremity vein mapping Upper extremity vein mapping Vascular Ultrasound Routine 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) Expected: 11/12/2021, Expires: 12/12/2021 [facility] Work Phone: Comment on above: Expected: 11/12/2021, Expires: Start: 11-12-2021 End: 11-12-2021 Patient encounter procedure [facility] Start: 11-07-2021 End: 11-07-2021 Admission to same day surgery center 11/07/2021 Surgery Cardiology Minoo Grimm MD [address] [place] [address] Left Heart Cath [facility] Comment on above: Left Heart Cath Start: 11-07-2021 Subsequent hospital visit by physician 11/07/2021 Hospital Encounter Cardiology Minoo Grimm MD [address] [place] [address] [facility] Start: 09-30-2021 Depression screening using PHQ-9 (Patient Health Questionnaire 9) score Depression Screening/Follow-Up (PHQ-2/9) [facility] Start: 08-09-2021 Screening for malignant neoplasm of colon [facility] Start: 08-02-2021 Creatinine measurement Creatinine monitoring [facility] Work Phone: Start: 08-02-2021 Potassium monitoring Potassium monitoring [facility] Phone: Start: 04-07-2021 End: 04-07-2021 Patient encounter procedure 04/07/2021 Office Visit Cardiology Jeremy Segovia MD [address] [address] [facility] Start: 03-31-2021 End: 03-31-2021 Patient encounter procedure [facility] Start: 02-27-2021 Depression Remission Assessment (PHQ9) Depression Remission Assessment (PHQ9) [facility] Start: 02-24-2021 End: 02-24-2021 Patient encounter procedure 02/24/2021 Office Visit Cardiology Jeremy Segovia MD [address] [address] [facility] Start: 02-10-2021 End: 02-10-2021 Patient encounter procedure 02/10/2021 Office Visit Orthopedic Surgery Mariela Morgan MD [address] [place] [address] [facility] Start: 01-15-2021 Influenza vaccination [facility] Start: 10-01-2020 End: 09-30-2021 Complete blood count with white cell differential, manual CBC and Differential Lab Routine Paresthesia of both feet Expected: 10/01/2020 (Approximate), Expires: 09/30/2021 [facility] Comment on above: Expected: 10/01/2020 (Approximate), Expi res: 09/30/2021 Start: 10-01-2020 End: 09-30-2021 Comprehensive metabolic 2000 panel - Serum or Plasma Comprehensive Metabolic Panel Lab Routine Essential hypertension Coronary artery disease due to lipid rich plaque Hyperlipidemia, unspecified hyperlipidemia type Expected: 10/01/2020 (Approximate), Expires: 09/30/2021 [facility] Comment on above: Expected: 10/01/2020 (Approximate), Expi res: 09/30/2021 Start: 10-01-2020 End: 09-30-2021 Lipid 1996 panel - Serum or Plasma Lipid Panel Lab Routine Hyperlipidemia, unspecified hyperlipidemia type Expected: 10/01/2020, Expires: 09/30/2021 [facility] Comment on above: Expected: 10/01/2020, Expires: Start: 10-01-2020 End: 09-30-2021 Thyrotropin [Units/volume] in Serum or Plasma TSH with Reflex Free T4 Lab Routine Dysphagia, unspecified type Hoarseness Pharyngitis, unspecified etiology Expected: 10/01/2020 (Approximate), Expires: 09/30/2021 [facility] Comment on above: Expected: 10/01/2020 (Approximate), Expi res: 09/30/2021 Start: 04-18-2020 Depression Remission Assessment Depression Remission Assessment [facility] Start: 04-18-2020 Depression Remission Assessment (PHQ9) Depression Remission Assessment (PHQ9) [facility] Start: 01-16-2020 Influenza vaccination [employer] Start: 01-16-2020 Influenza vaccination given [facility] Start: 05-08-2019 End: 05-08-2019 Office Visit 05/08/2019 Office Visit Cardiology oRlando Constantino MD [address] [place] [address] [phone] [facility] Start: 01-15-2019 Influenza vaccination given SEQUENTIAL INFLUENZA VACCINE (#1) [facility] Start: 11-05-2018 Annual Wellness Visit (AWV) Annual Wellness Visit (AWV) [facility] Start: 08-04-2018 Low dose computed tomography of chest without contrast Low-dose CT Lung Cancer Screen [facility] Start: 08-04-2018 Screening for malignant neoplasm of lung Low-dose CT Lung Cancer Screen [facility] Start: 06-02-2018 End: 06-02-2018 Ambulatory 06/02/2018 Office Visit Primary Care Ludy Azevedo, [employer] [address] [place] [address] [phone] [facility] Start: 05-30-2018 Ambulatory 05/30/2018 Hospital Encounter Cardiology Rolando Constantino MD [address] [place] [address] [phone] [facility] Start: 2018 End: 2018 Ambulatory 2018 Office Visit Orthopedic Surgery Mariela Morgan MD [address] [place] [address] [phone] [facility] Start: 01-15-2018 Influenza vaccination [facility] Start: 01-15-2018 Influenza vaccination given SEQUENTIAL INFLUENZA VACCINE (#1) [facility] Start: 11-03-2017 Ambulatory 11/03/2017 Hospital Encounter Mariela Morgan MD [address] [place] [phone] [facility] Start: 10-29-2017 End: 10-29-2017 Ambulatory 10/29/2017 Office Visit Orthopedic Surgery Mariela Morgan MD [address] [place] [address] [phone] [facility] Start: 09-29-2017 End: 09-29-2017 Ambulatory 09/29/2017 Office Visit Cardiology Rolando Constantino MD [address] [place] [address] [phone] [facility] Start: 08-26-2017 Ambulatory 08/26/2017 Office Visit Orthopedic Surgery Mariela Morgan MD [address] [place] [address] [phone] [facility] Start: 08-17-2017 Ambulatory 08/17/2017 Office Visit Cardiology Rolando Constantino MD [address] [place] [address] [phone] [facility] Start: 2017 Respiratory Syncytial Virus Immunization: Risk, 60-74 Risk, or 75+ (1 - Risk 60-74 years 1-dose series) Respiratory Syncytial Virus Immunization: Risk, 60-74 Risk, or 75+ (1 - Risk 60-74 years 1-dose series) [facility] Start: 2017 RSV High Risk: (Elderly (60+) or Population) (1 - Risk 60-74 years 1-dose series) RSV High Risk: (Elderly (60+) or Population) (1 - Risk 60-74 years 1-dose series) [facility] Start: 2017 RSV Immunization for Adults (1 - Risk 60-74 years 1-dose series) RSV Immunization for Adults (1 - Risk 60-74 years 1-dose series) [facility] Start: 2017 Zoster vacc, sc ZOSTER VACCINE [facility] Start: 01-15-2017 Influenza vaccination SEQUENTIAL INFLUENZA VACCINE (#1) [facility] Start: 01-15-2017 SEQUENTIAL INFLUENZA VACCINE (#1) SEQUENTIAL INFLUENZA VACCINE (#1) [facility] Work Phone: Start: 02-03-2012 Screening for malignant neoplasm of lung Low dose [facility] Phone[facility] Start: 2007 Administration of herpes zoster vaccine ZOSTER VACCINES (1 of 2) [facility] Start: 2007 Colonoscopy COLORECTAL CANCER SCREENING DISCUSSION [facility] Start: 2007 Prostate specific antigen measurement PROSTATE CANCER SCREENING DISCUSSION [facility] Start: 2007 Screening for malignant neoplasm of colon [facility] Start: 2007 [facility]: 2007 Shingles Vaccine (1 of 2) Shingles Vaccine (1 of 2) [facility] Start: 2007 Zoster vaccine hzv live for subcutaneous use ZOSTER (SHINGLES) VACCINE (1 of 2) [facility] Start: 2007 ZOSTER VACCINES (1 of 2) ZOSTER VACCINES (1 of 2) [facility] Start: 2002 Screening for malignant neoplasm of colon [facility] [employer] Start: 1997 Diabetes screen Diabetes screen [employer] Phone: Start: 1997 Fasting lipid profile LIPID SCREENING [facility] [employer] [facility] Start: 1997 Lipid panel [facility] Start: 1997 Prostate specific antigen measurement Prostate Specific Antigen (PSA) Screening or Monitoring [facility] [facility] Start: 02-03-1992 Diabetes screen Diabetes screen [facility] Start: 1979 DTaP/Tdap/Td Vaccines (1 - Tdap) DTaP/Tdap/Td Vaccines (1 - Tdap) [facility] Start: 02-03-1976 DTaP/Tdap/Td vaccine (1 - Tdap) DTaP/Tdap/Td vaccine (1 - Tdap) [facility] Phone: Start: 02-03-1976 Pneumococcal vaccination Pneumococcal Vaccine (1 of 2 - PCV) [facility] Start: 02-03-1976 Pneumococcal Vaccine: 50+ Years (1 of 2 - PCV) Pneumococcal Vaccine: 50+ Years (1 of 2 - PCV) [facility] Start: 02-03-1976 Pneumococcal Vaccine: Age 50+ (1 of 2 - PCV) Pneumococcal Vaccine: Age 50+ (1 of 2 - PCV) [facility] Start: 02-03-1976 Pneumococcal Vaccine: Age 65+ (1 of 2 - PCV) Pneumococcal Vaccine: Age 65+ (1 of 2 - PCV) [facility] Start: 02-03-1976 Third diphtheria, tetanus and acellular pertussis (DTaP) vaccination TDAP (ADULT) [facility] Start: 1975 Hepatitis C antibody, confirmatory test Hepatitis C Screening [facility] Start: 1975 Hepatitis C screening [facility] Start: 1975 Tetanus vaccination TETANUS [facility] Start: 1973 COVID-19 Vaccine (1 of 2) COVID-19 Vaccine (1 of 2) [facility] Start: 1973 COVID-19 Vaccine (1) COVID-19 Vaccine (1) [facility] Work Phone: Start: 02-03-1972 HIV screening [facility] Start: 1970 HIV screening HIV SCREENING DISCUSSION [facility] Start: 1969 COVID-19 Vaccine (1) COVID-19 Vaccine (1) [facility] Start: 1969 Depression Monitoring Depression Monitoring [facility] Start: 1969 Depression Screen Depression Screen [facility] Start: 1967 Lipid panel [facility] Start: 1963 Pneumococcal 65+ years Vaccine (1 - PCV) Pneumococcal 65+ years Vaccine (1 - PCV) [facility] Start: 1963 Pneumococcal vaccination PNEUMOCOCCAL VACCINE SERIES (1 - PCV) [facility] Start: 1963 Pneumococcal Vaccine: Age 65+ (1 - PCV) Pneumococcal Vaccine: Age 65+ (1 - PCV) [facility] Start: 1963 Pneumococcal Vaccine: Age 65+ (1 of 2 - PCV) Pneumococcal Vaccine: Age 65+ (1 of 2 - PCV) [facility] Start: 1963 Pneumococcal Vaccine: Ped or At-Risk (1 - PCV) Pneumococcal Vaccine: Ped or At-Risk (1 - PCV) [facility] Start: 1963 Pneumococcal Vaccine: Ped or At-Risk (1 of 2 - PPSV23) Pneumococcal Vaccine: Ped or At-Risk (1 of 2 - PPSV23) [facility] Start: 1962 COVID-19 Vaccine (#1) COVID-19 Vaccine (#1) [facility] Start: 1962 COVID-19 Vaccine (1) COVID-19 Vaccine (1) [facility] Start: 02-03-1960 History and physical examination, annual for health maintenance Wellness Visit [facility] Start: 02-03-1960 Medicare Wellness Visit Medicare Wellness Visit [facility] Start: 1957 COVID-19 Vaccine (#1) COVID-19 Vaccine (#1) [facility] Start: 1957 Abdominal aortic aneurysm screening Abdominal Aortic Ultrasound [facility] Start: 1957 Annual wellness visit Welcome to Medicare Visit [facility] Start: 1957 Annual Wellness Visit (AWV) Annual Wellness Visit (AWV) [facility] Start: 1957 CLASS III : ALT CLASS III : ALT [facility] Start: 1957 CLASS III : AST CLASS III : AST [facility] Start: 1957 CLASS III : CXR CLASS III : CXR [facility] Start: 1957 CLASS III : EKG CLASS III : EKG [facility] Start: 1957 CLASS III : PFT CLASS III : PFT [facility] Start: 1957 Class III : TSH Class III : TSH [facility] Start: 1957 Depression screening using PHQ-9 (Patient Health Questionnaire 9) score DEPRESSION SCREENING (PHQ9) [facility] Start: 1957 Hepatitis C screening [employer] Start: 1957 Lipid panel Lipid Panel [facility] Start: 1957 Prostate specific antigen measurement PSA Level [facility] Start: 1957 Screening for malignant neoplasm of colon [facility] Start: 1957 Colonoscopy COLONOSCOPY [facility] Work Phone: Start: 1957 End: 1957 Hepatitis C antibody, confirmatory test [facility] Start: 1957 HEPATITIS C SCREENING HEPATITIS C SCREENING [facility] Work Phone: Start: 1957 Low-dose [address] Lung Cancer Screen Low-dose CT Lung Cancer Screen [facility] Start: 1957 End: 1957 Protein mass conc COLONOSCOPY [facility] Start: 1957 Screening colonoscopy COLONOSCOPY [facility] Start: 1957 End: 1957 Screening for malignant neoplasm of lung Low-dose CT Lung Cancer Screen [facility] Start: 1957 TETANUS EVERY 10 YR TETANUS EVERY 10 YR [facility] Work Phone: End: 06-18-2019 12 lead ECG EKG 12-lead ECG STAT Once for 1 Occurrences starting 06/18/2019 until 06/18/2019 [facility] Comment on above: Once for 1 Occurrences starting 06/18/19 until 06/18/2019 End: 12-22-2022 12 lead ECG ECG 12 Lead ECG Routine S/P CABG x 2 1 Occurrences starting 12/22/2021 until 12/22/2022 [facility] Comment on above: 1 Occurrences starting 12/22/2021 until 12/22/2022 End: 08-08-2020 Basic metabolic 2000 panel Basic metabolic panel Lab Routine One Time for 1 Occurrences starting 08/08/2020 until 08/08/2020 [facility] Work Phone: Comment on above: One Time for 1 Occurrences starting 07/16 until 08/08/2020 End: 12-01-2022 Basic metabolic 2000 panel - Serum or Plasma Basic Metabolic Panel Lab STAT S/P CABG (coronary artery bypass graft) 1 Occurrences starting 11/30/2021 until 12/01/2022 [facility] Comment on above: 1 Occurrences starting 11/30/2021 until 12/01/2022 End: 12-15-2022 Basic metabolic 2000 panel - Serum or Plasma Basic Metabolic Panel Lab STAT S/P CABG (coronary artery bypass graft) 1 Occurrences starting 12/14/2021 until 12/15/2022 [facility] Comment on above: 1 Occurrences starting 12/14/2021 until 12/15/2022 End: 12-23-2022 Basic metabolic 2000 panel - Serum or Plasma Basic Metabolic Panel Lab STAT S/P CABG x 2 1 Occurrences starting 12/22/2021 until 12/23/2022 [facility] Comment on above: 1 Occurrences starting 12/22/2021 until 12/23/2022 End: 09-07-2023 Basic metabolic 2000 panel - Serum or Plasma Basic Metabolic Panel Lab STAT Disruption of closure of sternum or sternotomy, subsequent encounter 1 Occurrences starting 09/06/2022 until 09/07/2023 [facility] Comment on above: 1 Occurrences starting 09/06/2022 until 09/07/2023 End: 07-21-2023 Complete blood count with white cell differential, manual CBC and differential Lab Routine 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 1 Occurrences starting 07/20/2022 until 07/21/2023 [facility] Comment on above: 1 Occurrences starting 07/20/2022 until 07/21/2023 End: 09-07-2023 Complete blood count with white cell differential, manual CBC and differential Lab Routine Disruption of closure of sternum or sternotomy, subsequent encounter 1 Occurrences starting 09/06/2022 until 09/07/2023 [facility] Comment on above: 1 Occurrences starting 09/06/2022 until 09/07/2023 End: 09-30-2021 Complete PFT with pre - post bronchodilator Complete PFT with pre - post bronchodilator PFT Routine History of chronic cough History of tobacco abuse 1 Occurrences starting 09/30/2020 until 09/30/2021 [facility] Comment on above: 1 Occurrences starting 09/30/2020 until 09/30/2021 End: 07-21-2023 Comprehensive metabolic 2000 panel - Serum or Plasma Comprehensive metabolic panel Lab Routine 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 1 Occurrences starting 07/20/2022 until 07/21/2023 [facility] Comment on above: 1 Occurrences starting 07/20/2022 until 07/21/2023 End: 04-22-2020 COVID-19/Influenza A,B Molecular COVID-19/Influenza A,B Molecular Microbiology Routine Once for 1 Occurrences starting 04/22/2020 until 04/22/2020 [facility] Comment on above: Once for 1 Occurrences starting 04/22/20 20 until 04/22/2020 End: 02-06-2025 CT Chest for screening WO contrast CT Lung Cancer Screening Imaging Routine Nicotine dependence, cigarettes, uncomplicated 1 Occurrences starting 02/07/2024 until 02/06/2025 [facility] Work Phone: Comment on above: 1 Occurrences starting 02/07/2024 until 02/06/2025 End: 01-16-2026 CT Chest for screening WO contrast CT Lung Cancer Screening Imaging Routine Nicotine dependence, cigarettes, uncomplicated Encounter for screening for malignant neoplasm of lung in current smoker with 30 pack year history or greater 1 Occurrences starting 01/16/2025 until 01/16/2026 [employer] Work Phone: Comment on above: 1 Occurrences starting 01/16/2025 until 01/16/2026 End: 11-07-2024 CT Guidance for injection of Sacroiliac joint - right XR Aspiration Injection Large Joint Right Imaging Routine Primary osteoarthritis of right hip 1 Occurrences starting 11/08/2023 until 11/07/2024 [employer] Work Phone: Comment on above: 1 Occurrences starting 11/08/2023 until 11/07/2024 End: 05-31-2025 CT Guidance for injection of Sacroiliac joint - right XR Aspiration Injection Large Joint Right Imaging Routine Primary osteoarthritis of right hip 1 Occurrences starting 05/31/2024 until 05/31/2025 [employer] Work Phone: Comment on above: 1 Occurrences starting 05/31/2024 until 05/31/2025 End: 01-22-2026 CT Guidance for injection of Sacroiliac joint - right XR Aspiration Injection Large Joint Right Imaging Routine Primary osteoarthritis of right hip 1 Occurrences starting 01/22/2025 until 01/22/2026 [employer] Work Phone: Comment on above: 1 Occurrences starting 01/22/2025 until 01/22/2026 End: 07-21-2023 CT of chest without contrast CT Chest Without Contrast Imaging Routine 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 1 Occurrences starting 07/20/2022 until 07/21/2023 [employer] Work Phone: Comment on above: 1 Occurrences starting 07/20/2022 until 07/21/2023 End: 07-21-2023 Drugs of abuse urine screening test Drugs of Abuse Screen, Urine Lab Routine 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 Abuse of other non-psychoactive substances 1 Occurrences starting 07/20/2022 until 07/21/2023 [facility] Comment on above: 1 Occurrences starting 07/20/2022 until 07/21/2023 EKG 12 Lead EKG 12 Lead ECG STAT 08/02/2020 11:44 AM EDT [employer] Phone: EKG 12 Lead EKG 12 Lead ECG STAT 10/21/2021 12:06 PM EDT [employer] Work Phone: EKG 12 Lead EKG 12 Lead ECG Routine 01/20/2023 3:46 AM EDT [employer] End: 07-21-2023 Hemoglobin A1c/Hemoglobin.total in Blood Hemoglobin A1c Lab Routine Pre-procedure lab exam Abnormal finding of blood chemistry, unspecified 1 Occurrences starting 07/20/2022 until 07/21/2023 [employer] Comment on above: 1 Occurrences starting 07/20/2022 until 07/21/2023 L hrt cath w/njx l ventriculography img s&i LEFT HEART CATH Angina, class III (HCC) Coronary artery disease, unspecified vessel or lesion type, unspecified whether angina present, unspecified whether [place] or transplanted heart [facility] End: 10-29-2018 MR Cervical Spine Without Contrast MR Cervical Spine Without Contrast Routine Neck pain 1 Occurrences starting 10/29/2017 until 10/29/2018 [facility] Oxygen therapy [[facility] Data Set] Initiate Oxygen Therapy Protocol Respiratory Care Routine Daily until discontinued starting 08/08/2020 [employer] Phone: Comment on above: Daily until discontinued starting 2020 PFT spirometry pre a nd post bronchodilator PFT spirometry pre and post bronchodilator PFT Routine Chronic obstructive pulmonary disease, unspecified COPD type (HCC) Ordered: 02/07/2024 [facility] Comment on above: Ordered: 02/07/2024 End: 01-11-2023 Radial Artery Mapping Bilateral Radial Artery Mapping Bilateral Vascular Ultrasound Routine 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) PAD (peripheral artery disease) (HCC) 1 Occurrences starting 11/11/2021 until 01/11/2023 [employer] Work Phone: Comment on above: 1 Occurrences starting 11/11/2021 until 01/11/2023 End: 11-30-2022 Standard chest X-ray XR Chest AP/PA and LAT Imaging Routine S/P CABG (coronary artery bypass graft) 1 Occurrences starting 11/30/2021 until 11/30/2022 [employer] Work Phone: Comment on above: 1 Occurrences starting 11/30/2021 until 11/30/2022 End: 12-14-2022 Standard chest X-ray XR Chest AP/PA and LAT Imaging Routine S/P CABG (coronary artery bypass graft) 1 Occurrences starting 12/14/2021 until 12/14/2022 [employer] Work Phone: Comment on above: 1 Occurrences starting 12/14/2021 until 12/14/2022 End: 12-22-2022 Standard chest X-ray XR Chest AP/PA and LAT Imaging Routine S/P CABG x 2 1 Occurrences starting 12/22/2021 until 12/22/2022 [employer] Work Phone: Comment on above: 1 Occurrences starting 12/22/2021 until 12/22/2022 End: 09-07-2023 Standard chest X-ray XR Chest AP/PA and LAT Imaging Routine Disruption of closure of sternum or sternotomy, subsequent encounter 1 Occurrences starting 09/06/2022 until 09/07/2023 [employer] Work Phone: Comment on above: 1 Occurrences starting 09/06/2022 until 09/07/2023 End: 09-29-2023 Standard chest X-ray XR Chest AP/PA and LAT Imaging Routine Fluid collection at surgical site, subsequent encounter 1 Occurrences starting 09/28/2022 until 09/29/2023 [employer] Work Phone: Comment on above: 1 Occurrences starting 09/28/2022 until 09/29/2023 Standard chest X-ray XR Chest AP /PA and LAT Imaging Routine Fluid collection at surgical site, subsequent encounter 09/28/2022 9:21 AM EDT [facility] End: 05-28-2019 Stress test only, exercise Stress test only, exercise Routine Chest pain, unspecified type 1 Occurrences starting 05/27/2018 until 05/28/2019 [facility] Comment on above: 1 Occurrences starting 05/27/2018 until 05/28/2019 Surgical Site Aerobi c & Anaerobic Culture Surgical Site Aerobic & Anaerobic Culture Microbiology Routine 09/07/2024 1:55 PM EDT [facility] Work Phone: End: 07-13-2023 XR Aspiration Injection Large Joint Right XR Aspiration Injection Large Joint Right Imaging Routine Primary osteoarthritis of right hip 1 Occurrences starting 07/13/2022 until 07/13/2023 [facility] Work Phone: Comment on above: 1 Occurrences starting 07/13/2022 until 07/13/2023 End: 07-09-2023 XR Hip Right With Pelvis 2-3 Views (Routine) XR Hip Right With Pelvis 2-3 Views (Routine) Imaging Routine Primary osteoarthritis of right hip 1 Occurrences starting 07/09/2022 until 07/09/2023 [facility] Work Phone: Comment on above: 1 Occurrences starting 07/09/2022 until 07/09/2023 End: 01-30-2022 XR Pelvis 1 View (Standard) XR Pelvis 1 View (Standard) Imaging Routine Pain 1 Occurrences starting 01/30/2021 until 01/30/2022 [facility] Work Phone: Comment on above: 1 Occurrences starting 01/30/2021 until 01/30/2022 Immunizations Immunization Date Immunization Notes Care Provider Fa [facility] 09-06-2024 tetanus toxoid, reduced diphtheria toxoid, and acellular pertussis vaccine, adsorbed Karen Lisa [facility],PharmD [facility] 01-03-2017 tetanus toxoid, reduced diphtheria toxoid, and acellular pertussis vaccine, adsorbed Paulette CARBALLO [facility] 01-17-2016 tetanus toxoid, reduced diphtheria toxoid, and acellular pertussis vaccine, adsorbed Gail Garduno [employer] Work Phone: [facility] 06-27-2013 Td(adult) unspecifie d formulation Paulette ROBMORA [facility] 06-27-2013 tetanus and diphtheria toxoids, adsorbed, preservative free, for adult use (5 Lf of tetanus toxoid and 2 Lf of diphtheria toxoid) Gail Garduno [employer] Work Phone: [facility] NEGATED: Highlighted row has not occurred!07-29-2021 influenza virus vaccine, unspecified formulation Paulette CARBALLO [facility] Payers Date Payer Category Payer Medicare (Managed Care) 1.2. [id number] 2024 Medicare HMO [employer] P LANS [id number] 2023 Unknown 2023 Unknown [id number] 2023 Self-pay 2022 Medicare PPO [employer]AH[employer]Z DELONG CHOICE PPO [id number] 2022 Medicare [id number] 2021 Unknown [id number]. 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 [id number] 2020 Medicare [id number] 2020 Medicare RHONDA MANAGED M BETOTC ELLIS MEDIBLUE ESSENTIAL/PLUS/CONNECT/SN P HMO [id number] 2020-Present [phone] [address] [place] [address] [id number]. [id number] 2018 Medicare [id number]. [id number] 2017 Medicare 2011 Medicare [id number] 2011 Medicare MEDICARE MEDICAR E PART A & B xxxxxxxxxxx 2011-Present [place] xxxxxxxxxxx [id number] 2011 Medicare [id number] 2011 Medicare [id number]. [id number] 1957 Unknown [id number] 2.16.840.1.689293.3.579.2. 1957 Unknown [id number] 2.16.840.1.243443.3.579.2. 204 1957 Unknown [id number] 2.16.840.1.186931.3.579.2. 204 1957 Unknown [id number] 2.16.840.1.895330.3.579.2. 1957 Unknown [id number] 2.16.840.1.309428.3.579.2. 173 1957 Unknown [id number] 2.16.840.1.548199.3.579.2. 356 1957 Unknown [id number] 2.16.840.1.297260.3.579.2. 356 1957 Unknown [id number] 2.16.840.1.710324.3.579.2. 93 1957 Unknown [id number] 2.16.840.1.720065.3.579.2. 93 1957 Unknown [id number] 2.16.840.1.437929.3.579.2. 93 1957 Unknown [id number] 2.16.840.1.966590.3.579.2. 903 1957 Unknown [id number] 2.16.840.1.649505.3.579.2. 983 1957 Unknown [id number] 2.16.840.1.495165.3.579.2. 174 1957 Unknown [id number] 2.16.840.1.787425.3.579.2. 174 1957 Unknown [id number] 2.16.840.1.565440.3.579.2. 174 1957 Unknown [id number] 2.16.840.1.279018.3.579.2. 174 1957 Unknown [id number] 2.16.840.1.750996.3.579.2. 174 1957 Unknown [id number] 2.16.840.1.705825.3.579.2. 176 1957 Unknown [id number] 2.16.840.1.862871.3.579.2. 727 1957 Unknown [id number] 2.16.840.1.874958.3.579.2. 727 1957 Unknown [id number] 2.16.840.1.357766.3.579.2. 727 1957 Unknown [id number] 2.16.840.1.166100.3.579.2. 727 1957 Unknown [id number] 2.16.840.1.614751.3.579.2. 727 1955 Unknown [id number] 2.16.840.1.321388.3.579.2. 72 1955 Unknown [id number] 2.16.840.1.633930.3.579.2. 72 1955 Unknown [id number] 2.16.840.1.048710.3.579.2. 727 1955 Unknown [id number] 2.16.840.1.257307.3.579.2. 900 1955 Unknown [id number] 2.16.840.1.965189.3.579.2. 1243 1955 Unknown [id number] 2.16.840.1.633224.3.579.2. 1955 Unknown [id number] 2.16.840.1.922636.3.579.2. 902 1955 Unknown [id number] 2.16.840.1.973775.3.579.2. 902 1955 Unknown [id number] 2.16.840.1.933250.3.579.2. 902 1955 Unknown [id number] 2.16.840.1.735541.3.579.2. 902 1955 Unknown [id number] 2.16.840.1.297705.3.579.2. 903 1955 Unknown [id number] 2.16.840.1.388233.3.579.2. 90 1955 Unknown [id number] 2.16.840.1.659075.3.579.2. 903 1957 Unknown [id number] 2..840.1.984660.3.579.2. 900 1957 Unknown [id number] 2..840.1.775358.3.579.2. 90 1957 Unknown [id number] 2.840.1.436103.3.579.2. 90 1957 Unknown [id number] 2.840.1.647978.3.579.2. 1957 Unknown [id number] 2.840.1.399826.3.579.2. 1957 Unknown [id number] 2.840.1.321938.3.579.2. 1955 Unknown [id number] 2.840.1.740762.3.579.2. 1955 Unknown [id number] 2.840.1.318816.3.579.2. 727 1955 Unknown [id number] 2.840.1.839641.3.579.2. 727 Medicare xxxxxxxxxx [id number] Unknown [id number] Self-pay [id number] 2.840.1.835231.3.140.1. 64647.5.4 Unknown [id number] 2.840.1.303614.3.579.2. 462 Unknown [id number] 2.840.1.775516.3.579.2. 462 Unknown [id number] 2.840.1.877764.3.579.2. 462 Unknown [id number] 2.840.1.077094.3.579.2. 462 Unknown [id number] 2.840.1.870227.3.579.2. 462 Unknown [id number] 2.16.840.1.245246.3.579.2. 462 Unknown [id number] 2.16.840.1.805755.3.579.2. 462 Social History Date Type Detail Facility Start: 08-26-2017 End: 02-07-2024 Tobacco smoking status UTIS Current every day smoker [facility] Work Phone: End: 11-20-2021 History of tobacco use Cigarette Smoker [employer] Work Phone: Start: 08-26-2017 End: 09-30-2020 Cigarettes smoked current (pack per day) - Reported [facility] Work Phone: Start: 1955 Sex Assigned At Not on file [employer] Work Phone: Start: 10-28-2017 Alcohol Comment occasional [facility] Start: 04-15-2019 End: 07-07-2022 Alcohol intake Current drinker of alcohol (finding) [facility] Start: 06-19-2019 Alcohol Comment 20 tall boy beers a day for the last several days [facility] Start: 02-28-2020 End: 07-07-2022 Tobacco use and exposure Current user [facility] Start: 02-28-2020 History SDOH Alcohol Frequency 2 [facility] Start: 10-11-2021 End: 09-06-2024 Exposure to SARS-CoV-2 (event) Not sure [facility] Start: 04-22-2020 End: 02-07-2024 Tobacco use and exposure Never used [facility] Start: 04-22-2020 End: 01-22-2025 Alcohol intake Ex-drinker (finding) [facility] Start: 08-02-2020 End: 06-24-2022 Tobacco smoking status UTIS Former smoker [employer] Phone: End: 11-20-2021 History of tobacco use Current smoker [employer] Phone: Start: 08-02-2020 End: 08-08-2020 Alcohol intake Current non-drinker of alcohol (finding) [employer] Phone: Start: 08-29-2020 History SDOH Alcohol Frequency 99 [facility] Work Phone: Start: 08-29-2020 History SDOH Alcohol Comment none sine 06/24/2018 [facility] [employer] Work Phone: Start: 11-12-2021 Tobacco Comment Down to 8 cig daily [facility] Start: 07-29-2021 End: 01-26-2024 Tobacco smoking status Heavy tobacco smoker (finding) [facility] Tobacco smoking status Never [facility] Start: 09-30-2020 End: 08-11-20[address] Sex Assigned [address] Male [facility] Tobacco smoking status Unknown if ever [facility] Work Phone: Start: 06-24-2022 Tobacco Comment 6 CIGARETTES DAILY [facility] Start: 02-19-2022 Alcohol Comment PT STATES HE HAS BEEN DRINKING DAILY FOR THE PAST WEEK [facility] Start: 07-01-2022 Tobacco Comment 2-3 CIGARETTES DAILY [facility] Start: 07-07-2022 Tobacco Comment Trying to quit smoking [facility] Start: 08-03-2022 Alcohol Comment PT STATES HE HAS BEEN DRINKING DAILY FOR THE PAST WEEK. no drinking for 6 months [facility] Start: 2018 Gender identity Identifies as male gender (finding) [facility] Start: 2018 Sexual orientation Heterosexual (finding) [facility] Start: 09-07-2022 Tobacco Comment 4 to 4 CIGARETTES DAILY [facility] Start: 01-20-2023 History SDOH Alcohol Frequency 1 [facility] Start: 01-20-2023 History SDOH Alcohol Std Drinks 0 [facility] Start: 1955 Sex Assigned At Male [facility] History of tobacco use Passive smoker [facility] How often to you hav e a drink containing alcohol? Never [facility] Start: 08-11-2024 Sex Male (finding) [facility] Sexual Orientation [facility] Medical Equipment Procedure Code Equipment Code Equipment Origin al Text Equipment Identifier Dates Hemostat 8 X 12.5cm X 10mm Surgifoam Gelatin Sponge - Sn/A [id number] Start: 11-20-2021 Putty 5cc Grafto n Dbm - [id number] Start: 08-06-[address] Sternalock - [id number] Start: 08-06-2022 Comment on above: Description: Load #1 9 Sealant 4ml Pleural Air Leak Progel Sterl - [id number] [id number] Start: 08-19-2022 Plate 12hl Wide Ladder Sternalock - [id number] Start: 08-06-2022 Comment on above: Description: Load #1 9 Screw 2.4 X 20mm Canc Sternalock - Sna [id number] Start: 08-19-2022 Comment on above: Description: Load 1- 3 [id number] Hemostat 4 X 8in Surgicel - Sn/A [id number] Start: 11-20-2021 Screw 2.4 X 20mm Canc Sternalock - [id number] Start: 08-19-2022 Comment on above: Description: Load #1 9 for 12 screws and 5 screws in load #27 Screw 2.4 X 20mm Canc Sternalock - [id number] Start: 08-06-2022 Comment on above: Description: Load #1 9 for 12 screws and 5 screws in load #27 Goals Date Patient Goal Desired Activity /State Comment on above: Formatting of this n ote might be different from the original. Pt will be independent in a HEP to improve muscular strength and endurance of the affected LE, knee/hip ROM and gait/balance exercises in 4-8 weeks. Reduce pain in the affected hip to 0-1/10 or to an accepted level of tolerance to return to prior level of functional and recreational activities in 4 - 8 weeks. Pt will demonstrate improved, pain-free A/PROM of the involved hip symmetrical to the unaffected hip to enable the patient to sit comfortably, perform dressing and hygiene, get in/out of car and sleep without pain in 6-8 week. Pt will demonstrate improved strength of the hip musculature to at least 4+/5 or to values equal to the unaffected LE to allow the patient to rise from chair, negotiate steps reciprocally and walk without pain in 6-8 week.. pt will be able to ambulate with normal gait pattern showing normal stride length and proper heel strike, equal stance time, normal gait speed (to 3.3 ft /sec to normalize health) and equal propulsion off the affected LE without pain in 6-8 weeks. 6. Pt will have reduction of lateral hip pain to allow patient to lay on the affected side without pain. Continue with original goals Functional Status Date Assessment Result Facility 09-27-2023 Functional Status N/A [facility] 05-05-2023 Functional Status N/A [facility] 07-13-2022 Functional Status N/A [facility] 06-10-2022 Functional Status N/A [facility] 01-27-2022 Functional Status N/A [facility] Clinical Notes 09-16-2020 to 01-22-2025 Mariela Morgan MD - 01/22/2025 3:41 PM Karen Aviles RPh,PharmD - 09/11/2024 3:44 PM Karen Aviles RPh,PharmD - 09/08/2024 2:22 PM Gosia Wynn PT - 09/08/2024 10:05 AM EDT Note Date & Type Note Facility 01-22-2025 Note [facility] [address] ([address]) [facility] [address] [facility] [id number] Maryse Mak is a 69 y.o. male being seen today, 01/22/25, Chief Complaint Patient presents with Right Hip - Pain [chief complaint] right hip pain HPI Dictation: This man has advanced arthritis of his right hip intra-articular injection last performed he indicates minimal benefit exist in total hip replacement surgery I recommended we need to try physical therapy and NSAIDs first [hpi] Physical Exam Dictation: [PE] marked restriction of passive active range of motion involved Assessment and Plan Dictation: [AP] plan physical therapy meloxicam return in 4 weeks I have reviewed all relevant histories, medications, allergies, and problem list items with Maryse Mak during this visit. Review of Systems Constitutional: Negative for chills and fever. HENT: Negative for congestion. Respiratory: Negative for shortness of breath. Cardiovascular: Negative for chest pain. Gastrointestinal: Negative for diarrhea, nausea and vomiting. Neurological: Negative for headaches. Psychiatric/Behavioral: Negative for behavioral problems. There were no vitals taken for this visit. Imaging: No results found. 1. Primary osteoarthritis of right hip Return in about 4 weeks (around 02/19/2025). Mariela Morgan MD AUTHENTICATED BY MARIELA MORGAN, ON 01/22/2025 15:42:25 [facility] 01-22-2025 History of Present illness Narrative [facility] [address] ([address]) [facility] [address] [facility] [id number] Maryse Mak is a 69 y.o. male being seen today, 01/22/25, Chief Complaint Patient presents with Right Hip - Pain [chief complaint] right hip pain HPI Dictation: This man has advanced arthritis of his right hip intra-articular injection last performed he indicates minimal benefit exist in total hip replacement surgery I recommended we need to try physical therapy and NSAIDs first [hpi] Physical Exam Dictation: [PE] marked restriction of passive active range of motion involved Assessment and Plan Dictation: [AP] plan physical therapy meloxicam return in 4 weeks I have reviewed all relevant histories, medications, allergies, and problem list items with Maryse Mak during this visit. Review of Systems Constitutional: Negative for chills and fever. HENT: Negative for congestion. Respiratory: Negative for shortness of breath. Cardiovascular: Negative for chest pain. Gastrointestinal: Negative for diarrhea, nausea and vomiting. Neurological: Negative for headaches. Psychiatric/Behavioral: Negative for behavioral problems. There were no vitals taken for this visit. Imaging: No results found. 1. Primary osteoarthritis of right hip Return in about 4 weeks (around 02/19/2025). Mariela Morgan MD documented in this encounter [facility] 09-11-2024 History of Present illness Narrative Negative final blood cultures . No further action needed. Negative preliminary blood cultures. No further action needed. documented in this encounter [facility] 09-11-2024 Consult note Associated Order (s): IP CONSULT TO CARE MANAGEMENT Care Management Consult Note Date: 09/11/2024 Time: 3:33 PM Patient Name: Maryse Mak Date of : 1955 Reason for Consult: Discharge Plan: D/C Disposition: Home Regulatory Documentation: Medicare IM Regulatory Documentation Status: Certified Plan A: Home Plan B: Home Patient Paper Copy: Patient received paper copy Discharging Transportation Plan: Transportation Type: Auto Discharge Plan Status: CM consulted because pt is living in his car temporarily until he drives back to [place] CM provided a street card and community resource guide. Assessment and Background Information: Type of Residence: Private residence Holistic Assessment Medication adherence problem:: No History of falls in last 6 months:: No Family aware of the patient's advance care planning wishes:: Yes Do you have any cultural/spiritual connections or beliefs that would impact how we deliver your care?: No Chronic pain:: No [facility] 09-11-2024 Consult note Associated Order (s): IP CONSULT TO CARE MANAGEMENT Care Management Consult Note Date: 09/11/2024 Time: 3:33 PM Patient Name: Maryse Mak Date of : 1955 Reason for Consult: Discharge Plan: D/C Disposition: Home Regulatory Documentation: Medicare IM Regulatory Documentation Status: Certified Plan A: Home Plan B: Home Patient Paper Copy: Patient received paper copy Discharging Transportation Plan: Transportation Type: Auto Discharge Plan Status: CM consulted because pt is living in his car temporarily until he drives back to [place] CM provided a street card and community resource guide. Assessment and Background Information: Type of Residence: Private residence Holistic Assessment Medication adherence problem:: No History of falls in last 6 months:: No Family aware of the patient's advance care planning wishes:: Yes Do you have any cultural/spiritual connections or beliefs that would impact how we deliver your care?: No Chronic pain:: No Physical Therapy Physical Therapy Vestibular Note Impressions: PT Vestibular Impressions PT Vestibular Impression: Pt presents with episodic vertigo, positional in nature based on pt's description. Oculomotor testing all WFL, positional testing all negative for BPPV. Performed positional testing multiple times with variations due to limited cervical ROM. Unable to trigger symptoms or nystagmus with any testing. Educated pt on vestibular PT follow up for re-testing if pt wishes. Pt reports he is moving next week, so provided info on what type of PT to look for in new city/state. Oculomotor Testing: Oculomotor Testing Spontaneous Nystagmus: Not present Gaze Hold Nystagmus: No nystagmus present Smooth Pursuit: Within Normal Limits (WNL) Saccades: Within Normal Limits (WNL) VOR Cancellation: Within Normal Limits (WNL) Head Thrust / VOR Fast: Within Normal Limits (WNL) Positional Testing: Positional Testing [place]: Within Normal Limits (WNL) Modified Side Lying Test: Within Normal Limits (WNL) Roll Test: Within Normal Limits (WNL) For complete Physical Therapy Vestibular assessment, treatment, and education, refer to the Vestibular flowsheet and Plan of Care documenation. This note and corresponding flowsheets stand as the Discharge Summary upon patient discharge from the hospital or completion of the Physical Therapy Plan of Care. Physical Therapy PHYSICAL THERAPY EVALUATION AND DISCHARGE NOTE Skilled Therapy Needs After Discharge Are search advertising strategist Therapy Services Needed After Discharge: No PT DME Recommendation: None Outcomes Measures Prior Function - Basic Mobility Raw Score: 24 Points Prior Function - Basic Mobility % Impaired: 0% AM-PAC Basic Mobility Raw Score: 22 Points AM-PAC Basic Mobility % Impaired: 25.02% Physical Therapy Assessment History: The following factors influence the patient's participation in the PT plan of care: Personal Factors: Social Barriers The following co-morbidities (from this admission or prior) influence the patient's participation in this plan of care: h/o CAD, HTN, back surgeries; pt admitted with right hand cellulitis s/p I&D, vertigo Number of History elements affecting this patient's PT plan of care: 1 to 2 Examination of Body Systems: . These impairments result in limitations of Gait. These impairments result in restrictions of Other (comment). Number of Body Systems elements affecting this patient's PT plan of care: 1 to 2. Clinical Presentation: The patient's clinical presentation for this PT evaluation is with stable and/or uncomplicated characteristics as evidenced by current PT documentation. Therapy Precautions Weight Bearing Status: X RUE: Wt bearing as tolerated Balance Assessment Sitting Balance - Static: Independent Sitting Balance - Dynamic: Independent Standing Balance - Static: Independent Standing Balance - Dynamic: Supervision Bed Mobility Rolling: Independent Supine to Sit: Independent Sit to Supine: Independent Transfers Sit to Stand: Independent Gait/Locomotion Gait Assistance: Supervision Pattern: R impaired heel strike, L impaired heel strike, decreased dee (steps per minute) (intermittent decreased foot clearance on right- pt reports baseline from back injury/surgeries) Additional Assessment Details Home Living Obtained Home Living and PLOF info from: Patient Lives With: (pt reports living between friends home, pt is moving out of state next week) Mobility Equipment: (none) Prior Level of Function Level of [place] - Transfers/Ambulation/Mobility: Independent with functional transfers, Independent with household ambulation, Independent with community ambulation Level of [place] - ADLs: Independent Level of [place] - Homemaking: Independent Driving: Patient drives Past Medical History: Diagnosis Date Alcohol abuse 06/19/2019 Arthritis Chronic back pain Chronic obstructive pulmonary disease (HCC) 02/07/2024 Clotting disorder DVT Cocaine abuse (HCC) 10/28/2017 Coronary artery disease moderate stenosis of LAD and mild plaque in other vessels Homeless 06/19/2019 Hyperlipidemia Hypertension Tobacco dependence 04/29/2020 Past Surgical History: Procedure Laterality Date BACK SURGERY BRING BACK OPEN HEART N/A 08/19/2022 Procedure: STERNAL WOUND EXPLORATION; Surgeon: Wood Eng MD; Location: Main OR; Service: Cardiothoracic CABG W/ RADIAL ARTERY HARVEST N/A 11/20/2021 Procedure: CORONARY ARTERY BYPASS GRAFT X2 AND LEFT AND RIGHT INTERNAL MAMMARY ARTERY GRAFTS; Surgeon: Wood Eng MD; Location: Main OR; Service: Cardiothoracic CARDIAC CATHETERIZATION N/A 11/07/2021 Procedure: Coronary Angiogram; Surgeon: Minoo Grimm MD; Location: [facility]; Service: Cardiovascular CV IR INTERVENTIONAL RADIOLOGY N/A 09/01/2022 Procedure: VR Aspiration Sternal seroma; Surgeon: Florencio Chambers MD; Location: IR LAB; Service: Interventional Radiology HC LEFT HEART CATH N/A 11/07/2021 Procedure: Left Heart Cath; Surgeon: Minoo Grimm MD; Location: [facility]; Service: Cardiovascular INCISION AND DRAINAGE HAND/FINGER Right 09/07/2024 Procedure: IRRIGATION AND DEBRIDEMENT OF RIGHT THUMB AND FLEXOR TENDON SHEATH; Surgeon: Aristeo Beavers MD; Location: [facility] Main OR; Service: Orthopedic; Laterality: Right; left arm leg sx right and left blood clots Bilateral 2009 in [facility] SHOULDER SURGERY STERNAL WIRING N/A 08/06/2022 Procedure: STERNAL INTERNAL FIXATION WITH PLATING AND SCREWS; Surgeon: Wood Eng MD; Location: Main OR; Service: Cardiothoracic For complete objective data, detailed plan of care and patient education refer to: PT Evaluation flowsheet, PT Evaluation and Treatment flowsheet, PT Treatment flowsheet, patient Plan of Care, Plan of Care progress note, and Patient Education. This note stands as the current Discharge Summary upon patient discharge from the hospital or completion of Physical Therapy Plan. Associated Order(s): IP CONSULT TO HAND SURGERY Images from the original note were not included. CONSULT NOTE Patient Name: Maryse Mak Admit Date: [id number] MR #: [id number] : 1955 Physicians: Rayo Jaimes MD (Family); Jaguar Ordaz MD (Referring) Aristeo Baevers MD (Hand and Micro Surgery) Assessment and Plan: Other Cellulitis of right hand Assessment & Plan 69 y.o. male presents with cellulitis of the right hand in the setting of burn wounds sustained 5 days earlier - D/w Dr. Beavers - I&D of the right thumb proximal phalanx performed (see procedure note) - Cultures obtained and walked to the lab - Recommend admission for IV abx, abx continued from [place] - Begin BID warm soapy soaks with packing changes - Multimodal pain control - Hand surgery well reassess in the AM - If no significant improvement seen patient may require formal I&D - NPO at midnight as precaution - Please contact hand surgery [facility] consulting technical director with questions/concerns Chief Complaint/Reason for Visit: Right hand pain, concern for FTS History of Present Illness: Maryse Mak is a 69 y.o. right hand dominant male presenting from [facility] with c/o right hand pain 2/2 reported burn. Patient states he was working on his car about 5 days ago when he sustained patel to the volar and dorsal aspects of his hand. States he did okay for the first 2-3 days afterwards but about 2 days ago he started to notice worsening pain and swelling in the hand. He also had had nausea and decreased appetite. He was seen in the ED yesterday and prescribed PO abx for cellulitis and discharged. He represented today due to worsening symptoms and overall not felling well. States the pain in his hand is severe, a 9/10 and reports he is unable to move his thumb due to pain. Does endorse the majority of the pain is along the volar aspect of his thumb. He denies any puncture wounds that he is aware of. History: Past Medical History: Diagnosis Date Alcohol abuse 06/19/2019 Arthritis Chronic back pain Chronic obstructive pulmonary disease (HCC) 02/07/2024 Clotting disorder DVT Cocaine abuse (HCC) 10/28/2017 Coronary artery disease moderate stenosis of LAD and mild plaque in other vessels Homeless 06/19/2019 Hyperlipidemia Hypertension Tobacco dependence 04/29/2020 Past Surgical History: Procedure Laterality Date BACK SURGERY BRING BACK OPEN HEART N/A 08/19/2022 Procedure: STERNAL WOUND EXPLORATION; Surgeon: Wood Eng MD; Location: Main OR; Service: Cardiothoracic CABG W/ RADIAL ARTERY HARVEST N/A 11/20/2021 Procedure: CORONARY ARTERY BYPASS GRAFT X2 AND LEFT AND RIGHT INTERNAL MAMMARY ARTERY GRAFTS; Surgeon: Wood Eng MD; Location: Main OR; Service: Cardiothoracic CARDIAC CATHETERIZATION N/A 11/07/2021 Procedure: Coronary Angiogram; Surgeon: Minoo Grimm MD; Location: [facility]; Service: Cardiovascular CV IR INTERVENTIONAL RADIOLOGY N/A 09/01/2022 Procedure: VR Aspiration Sternal seroma; Surgeon: Florencio Chambers MD; Location: IR LAB; Service: Interventional Radiology HC LEFT HEART CATH N/A 11/07/2021 Procedure: Left Heart Cath; Surgeon: Minoo Grimm MD; Location: [facility]; Service: Cardiovascular left arm leg sx right and left blood clots Bilateral 2009 in [facility] SHOULDER SURGERY STERNAL WIRING N/A 08/06/2022 Procedure: STERNAL INTERNAL FIXATION WITH PLATING AND SCREWS; Surgeon: Wood Eng MD; Location: Main OR; Service: Cardiothoracic Family History Problem Relation Age of Onset Heart disease Father Heart attack Father Heart attack Maternal Uncle Heart disease Maternal Uncle Social History [1] Allergy Information: I have reviewed the patient's allergies. Felix inhibitors and Atorvastatin Home Medications: Outpatient Medications as of 09/06/2024 Medication Sig aspirin 81 MG EC tablet Take 1 (one) tablet (81 mg total) by mouth daily . atorvastatin (LIPITOR) 40 MG tablet Take 1 (one) tablet (40 mg total) by mouth . gabapentin (NEURONTIN) 800 MG tablet Take 1 (one) tablet (800 mg total) by mouth 3 (three) times a day . HYDROcodone-acetaminophen (NORCO) 7.5-325 mg per tablet Take 1 (one) tablet by mouth every 6 (six) hours as needed for pain . NIFEdipine (ADALAT CC) 30 MG 24 hr tablet Take 1 (one) tablet (30 mg total) by mouth daily . sulfamethoxazole-trimethoprim (BACTRIM DS,SEPTRA DS) 800-160 mg per tablet Take 1 (one) tablet by mouth 2 (two) times a day for 10 days . traMADol (ULTRAM) 50 mg tablet Take 1 (one) tablet (50 mg total) by mouth every 6 (six) hours as needed . Review of Systems: The following system(s) were reviewed and pertinent findings noted: Neuro: + baseline numbness Integumentary: +patel, redness MuscSkel: + right hand pain Physical Examination: Vital Signs: BP (!) 150/77 (BP Location: Left arm, Patient Position: Lying) Pulse 82 Temp 98.2 F (36.8 C) (Oral) Resp 16 Ht 6' Wt 93 kg (205 lb) SpO2 94% BMI 27.80 kg/m Constitutional: Appears well, no distress Cardiovascular: 2+ radial pulse with BCR to all fingers in right upper extremity Neurological: RUE: SILT to all fingers. R/U/M nerves all grossly intact Integumentary: See photos. Significant erythema over the proximal phalanx of the right thumb which does extend, to a lesser severity, over the thenar eminence with lymphangitic streaking up to the medial forearm. Burn wounds present to the dorsoulnar aspect of the thumb. There are scab wounds present of the volar distal phalanx as well as hypothenar eminence. . Musculoskeletal: RUE: Significant swelling present throughout the thumb and thenar eminence. TTP along the flexor tendon sheath of the thumb with tenderness extending into the thenar eminence and distal forearm, volarly. Patient unable to flex at the IP joint. Is able to minimally flex at the MCP joint but significant limited due to pain. Finger does not appear to be held in flexion at this time. He does endorse pain with passive extension of the thumb. He has mild tenderness along the dorsal aspect of the thumb. [1] Social History Socioeconomic History Marital status: Single Tobacco Use Smoking status: Every Day Current packs/day: 0.50 Average packs/day: 0.5 packs/day for 45.0 years (22.5 ttl pk-yrs) Types: Cigarettes Passive exposure: Past Smokeless tobacco: Never Vaping Use Vaping status: Never Used Substance and Sexual Activity Alcohol use: Not Currently Drug use: Not Currently Types: Cocaine Sexual activity: Not Currently control/protection: None Social Drivers of Health Transportation Needs: No Transportation Needs (10/02/2022) OASIS A1250: Transportation Lack of Transportation (Medical): No Lack of Transportation (Non-Medical): No Patient Unable or Declines to Respond: No Cosigned by Aristeo Beavers MD at 09/07/2024 5:58 AM EDT documented in this encounter [facility] 09-11-2024 Note MEDONE DISCHARGE Maryse Trinidad Account: [id number] Admitted: 09/06/2024 Discharge Date/Time: 09/11/24 4:52 PM ___ Handoff to PCP Routine hospital follow up Follow up with Ortho hand - Dr Beavers in 1 week Clinical Summary Maryse Mak is a 69 y.o. male with a history of CAD, HTN who presented to the [facility] for right had cellulitis, ortho evaluated and had concern for flexor tenosynovitis. S/p Vanc and zosyn and patient transferred to [facility] 09/06/2024 for hand surgery evaluation. Trop 23-21, CTA H/n without acute infarct. Right Hand Cellulitis: with concern for flexor tenosynovitis in setting of pain with passive extension, ascending lymphangitis. 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 Admit x-ray right hand without acute findings. MRI Rt hand with thumb cellultis and soft tissue swelling superficial to thumb flexor tendon, S/p I&D by hand surgery in ED. S/p I/D of Rt thumb flexor tenosynovitis by Dr Beavers. OR Cx S. Pyogens. Started Vancomycin, Zosyn in ED, transitioned to Rocephin and then to keflex for total 14 days, EOT 09/20/24. Admit Bcx admit NGTD Hand surgery recommended OP follow up in 1 week, BID soapy soaks. Vertigo: Pt has hx, With associated headache. Reported 3 days of off-balance sensation, dizziness worse with movement. In ED: CTA head and neck without acute infarct, 69 proximal left ICA 60% proximal left ICA stenosis. Prn meclizine ordered. Vestibular PT negative. Resolved CAD: S/p CABG in 2021. Continued home statin. Continued ASA HTN: Per hx, Continued home CCB Tobacco Use: Smokes 1PPD, declined nicotine patch. Cessation encouraged Substance use: Admit utox with Cocaine and opiate, advised cessation as able BP 114/71 Pulse 98 Temp 98.5 degrees F (36.9 degrees C) (Oral) Resp 16 Ht 6' Wt 93 kg (205 lb) SpO2 94% BMI 27.80 kg/m S: TRANG Beavers, ok to tx today, ok 14 days total ABX. recommend seeing him at least once, someone in [place] can take out sutures DW pt at length. Pt is moving to [place], advised he should try to follow up with Dr Beavers at least once. Pt is staying out of his truck, does not want homeless shelters. Has friends but does not want to stay with them. Has kids but he does not want to call them and stay with them. He prefers to stay in his car. Discussed importance of keeping wound clean, BID soapy soaks as per hand recommendations. Discussed stopping smoking and cocaine and it can impair wound healing. General: NAD Eyes: anicteric ENT: neck supple Cardiovascular: Regular rate, no murmur Respiratory: Clear to auscultation, symmetric air entry Gastrointestinal: Soft, non tender, non distended, positive bowel sounds Genitourinary: no CVA tenderness Musculoskeletal: Right hand in dressing Skin: warm, dry, no LE edema Neuro: Answering questions appropriately, KNIGHT x 4 Psych: calm Discharge Medications Discharge Medications New Medications Details acetaminophen 325 MG tablet Commonly known as: TYLENOL Take 2 (two) tablets (650 mg total) by mouth every 4 (four) hours as needed . Quantity: 30 tablet cephALEXin 500 MG capsule Commonly known as: KEFLEX Take 1 (one) capsule (500 mg total) by mouth 4 (four) times a day for 9 days . Quantity: 36 capsule meclizine 12.5 mg tablet Commonly known as: ANTIVERT Take 1 (one) tablet (12.5 mg total) by mouth 3 (three) times a day as needed for dizziness . Quantity: 30 tablet naloxone 4 mg/actuation Manele Commonly known as: Narcan Administer 1 spray into one nostril for known or suspected opioid overdose. If patient worsens or does not respond, may repeat in 2-3 minutes. . Quantity: 2 each oxyCODONE 5 MG immediate release tablet Commonly known as: ROXICODONE Take 1 (one) tablet (5 mg total) by mouth every 6 (six) hours as needed (Days supply per fill: 7) . Quantity: 28 tablet polyethylene glycol 17 gram/dose powder Commonly known as: GLYCOLAX Mix 17 (seventeen) g in liquid and drink by mouth 2 (two) times a day as needed . Quantity: 238 g senna-docusate 8.6-50 mg Commonly known as: SENNA-S Take 1 (one) tablet by mouth 2 (two) times a day while on narcotics . Quantity: 60 tablet Medications To Continue Details aspirin 81 MG EC tablet Take 1 (one) tablet (81 mg total) by mouth daily . atorvastatin 40 MG tablet Commonly known as: LIPITOR Take 1 (one) tablet (40 mg total) by mouth . gabapentin 800 MG tablet Commonly known as: NEURONTIN Take 1 (one) tablet (800 mg total) by mouth 3 (three) times a day . Quantity: 90 tablet NIFEdipine 30 MG 24 hr tablet Commonly known as: ADALAT CC Take 1 (one) tablet (30 mg total) by mouth daily . traMADol 50 mg tablet Commonly known as: ULTRAM Notes to patient: Do NOT take this while on oxycodone, resume this once oxycodone is completed Take 1 (one) tablet (50 mg total) by mouth every 6 ( (more content not included)... [facility] 09-11-2024 Hospital course Narrative [facility] DISCHARGE SUMMARY Maryse Mak Account: [id number] Admitted: 09/06/2024 Discharge Date/Time: 09/11/24 4:52 PM ___ Handoff to PCP Routine hospital follow up Follow up with Ortho hand - Dr Beavers in 1 week Clinical Summary Maryse Mak is a 69 y.o. male with a history of CAD, HTN who presented to the [facility] for right had cellulitis, ortho evaluated and had concern for flexor tenosynovitis. S/p Vanc and zosyn and patient transferred to [facility] 09/06/2024 for hand surgery evaluation. Trop 23-, CTA H/n without acute infarct. Right Hand Cellulitis: with concern for flexor tenosynovitis in setting of pain with passive extension, ascending lymphangitis. 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 Admit x-ray right hand without acute findings. MRI Rt hand with thumb cellultis and soft tissue swelling superficial to thumb flexor tendon, S/p I&D by hand surgery in ED. S/p I/D of Rt thumb flexor tenosynovitis by Dr Beavers. OR Cx S. Pyogens. Started Vancomycin, Zosyn in ED, transitioned to Rocephin and then to keflex for total 14 days, EOT 09/20/24. Admit Bcx admit NGTD Hand surgery recommended OP follow up in 1 week, BID soapy soaks. Vertigo: Pt has hx, With associated headache. Reported 3 days of off-balance sensation, dizziness worse with movement. In ED: CTA head and neck without acute infarct, 69 proximal left ICA 60% proximal left ICA stenosis. Prn meclizine ordered. Vestibular PT negative. Resolved CAD: S/p CABG in 2021. Continued home statin. Continued ASA HTN: Per hx, Continued home CCB Tobacco Use: Smokes 1PPD, declined nicotine patch. Cessation encouraged Substance use: Admit utox with Cocaine and opiate, advised cessation as able BP 114/71 Pulse 98 Temp 98.5 F (36.9 C) (Oral) Resp 16 Ht 6' Wt 93 kg (205 lb) SpO2 94% BMI 27.80 kg/m S: TRANG Beavers, ok to dc today, ok 14 days total ABX. recommend seeing him at least once, someone in [place] can take out sutures DW pt at length. Pt is moving to [place], advised he should try to follow up with Dr Beavers at least once. Pt is staying out of his truck, does not want homeless shelters. Has friends but does not want to stay with them. Has kids but he does not want to call them and stay with them. He prefers to stay in his car. Discussed importance of keeping wound clean, BID soapy soaks as per hand recommendations. Discussed stopping smoking and cocaine and it can impair wound healing. General: NAD Eyes: anicteric ENT: neck supple Cardiovascular: Regular rate, no murmur Respiratory: Clear to auscultation, symmetric air entry Gastrointestinal: Soft, non tender, non distended, positive bowel sounds Genitourinary: no CVA tenderness Musculoskeletal: Right hand in dressing Skin: warm, dry, no LE edema Neuro: Answering questions appropriately, KNIGHT x 4 Psych: calm Discharge Medications Discharge Medications New Medications Details acetaminophen 325 MG tablet Commonly known as: TYLENOL Take 2 (two) tablets (650 mg total) by mouth every 4 (four) hours as needed . Quantity: 30 tablet cephALEXin 500 MG capsule Commonly known as: KEFLEX Take 1 (one) capsule (500 mg total) by mouth 4 (four) times a day for 9 days . Quantity: 36 capsule meclizine 12.5 mg tablet Commonly known as: ANTIVERT Take 1 (one) tablet (12.5 mg total) by mouth 3 (three) times a day as needed for dizziness . Quantity: 30 tablet naloxone 4 mg/actuation Manele Commonly known as: Narcan Administer 1 spray into one nostril for known or suspected opioid overdose. If patient worsens or does not respond, may repeat in 2-3 minutes. . Quantity: 2 each oxyCODONE 5 MG immediate release tablet Commonly known as: ROXICODONE Take 1 (one) tablet (5 mg total) by mouth every 6 (six) hours as needed (Days supply per fill: 7) . Quantity: 28 tablet polyethylene glycol 17 gram/dose powder Commonly known as: GLYCOLAX Mix 17 (seventeen) g in liquid and drink by mouth 2 (two) times a day as needed . Quantity: 238 g senna-docusate 8.6-50 mg Commonly known as: SENNA-S Take 1 (one) tablet by mouth 2 (two) times a day while on narcotics . Quantity: 60 tablet Medications To Continue Details aspirin 81 MG EC tablet Take 1 (one) tablet (81 mg total) by mouth daily . atorvastatin 40 MG tablet Commonly known as: LIPITOR Take 1 (one) tablet (40 mg total) by mouth . gabapentin 800 MG tablet Commonly known as: NEURONTIN Take 1 (one) tablet (800 mg total) by mouth 3 (three) times a day . Quantity: 90 tablet NIFEdipine 30 MG 24 hr tablet Commonly known as: ADALAT CC Take 1 (one) tablet (30 mg total) by mouth daily . traMADol 50 mg tablet Commonly known as: ULTRAM Notes to patient: Do NOT take this while on oxycodone, resume this once oxycodone is completed Take 1 (one) tablet (50 mg total) by mouth every 6 (six) hours as needed . Quantity: 8 tablet Stopped Medications HYDROcodone-acetaminophen 7.5-325 mg per tablet Commonly known as: NORCO sulfamethoxazole-trimethoprim 800-160 mg per tablet Commonly known as: BACTRIM DS,SEPTRA DS Physician(s) Family: Rayo Jaimes MD, , Address: [address] [place], [place] [id number] Follow Up: Aristeo Beavers MD [id number] [id number] Schedule an appointment as soon as possible for a visit in 1 week(s) Orthopedics and Sports Medicine [phone] Schedule an appointment as soon as possible for a visit Rayo Jaimes MD [address] [place], [place] [id number] Schedule an appointment as soon as possible for a visit in 1 week(s) Additional Information: Patient seen and examined day of discharge. For more information regarding patient's care, including complete radiology reports, please contact [facility] at Patient instructions, including activity, were given to the patient/family at discharge. Please see the After Visit Summary in the medical record for details. Time spent on discharge: > 30 minutes Completed by: Brooke Hernandes MD on 09/11/24, 4:52 PM documented in this encounter [facility] 09-11-2024 Note Daily Progress Note Assessment/Plan: 69 y/o male with a history of right thumb infection who is now s/p I&D with Dr. Beavers (DOS: 09/07/2024) -finger stable in appearance -- improved motion today -Continue BID warm, soapy water soaks -abx per primary team -Stable for discharge today from hand surgery standpoint. -patient is requesting follow up in [place] as he is moving there Subjective/Objective: Doing ok today -- he notes improved swelling On exam, he is alert and oriented. No acute distress. RUE: Volar thumb incision is well approximated with sutures. No purulence was able to to expressed. Swelling stable from previous photos, no fluctuance. Ecchymosis present, Sensation to light touch intact at the tip of the thumb. He can flex at the IP and MCP joint. Thumb is warm and well perfused with brisk capillary refill. Vital signs in last 24 hours: Temp: [97.6 degrees F (36.4 degrees C)-98.5 degrees F (36.9 degrees C)] 98.5 degrees F (36.9 degrees C) Heart Rate: [56-98] 98 Resp: [16-18] 16 BP: (114-152)/(67-85) 114/71 AUTHENTICATED BY MAURA LORENZO, ON 09/11/2024 14:06:34 [facility] 09-11-2024 History of Present illness Narrative Daily Progress Note Assessment/Plan: 69 y/o male with a history of right thumb infection who is now s/p I&D with Dr. Beavers (DOS: 09/07/2024) -finger stable in appearance -- improved motion today -Continue BID warm, soapy water soaks -abx per primary team -Stable for discharge today from hand surgery standpoint. -patient is requesting follow up in [place] as he is moving there Subjective/Objective: Doing ok today -- he notes improved swelling On exam, he is alert and oriented. No acute distress. RUE: Volar thumb incision is well approximated with sutures. No purulence was able to to expressed. Swelling stable from previous photos, no fluctuance. Ecchymosis present, Sensation to light touch intact at the tip of the thumb. He can flex at the IP and MCP joint. Thumb is warm and well perfused with brisk capillary refill. Vital signs in last 24 hours: Temp: [97.6 F (36.4 C)-98.5 F (36.9 C)] 98.5 F (36.9 C) Heart Rate: [56-98] 98 Resp: [16-18] 16 BP: (114-152)/(67-85) 114/71 [facility] Progress Note 09/10/2024 Maryse Mak 1955 [id number] Assessment/Plan: Maryse Mak is a 69 y.o. male with a history of CAD, HTN who presented to the [facility] for right had cellulitis, ortho evaluated and had concern for flexor tenosynovitis. S/p Vanc and zosyn and patient transferred to [facility] 09/06/2024 for hand surgery evaluation. Trop 23-21, WBC 19.29, CRP 194, UDS + for cocaine and opiates. CTA H/n without acute infarct. Right Hand Cellulitis: with concern for flexor tenosynovitis in setting of pain with passive extension, ascending lymphangitis. 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 Admit x-ray right hand without acute findings. MRI Rt hand with thumb cellultis and soft tissue swelling superficial to thumb flexor tendon, S/p I&D by hand surgery in ED. S/p I/D of Rt thumb flexor tenosynovitis. OR Cx S. Pyogens. Started Vancomycin, Zosyn in ED, transitioned to Rocephin. Admit Bcx admit NGTD Hand surgery following Vertigo: Pt has hx, With associated headache. Reported 3 days of off-balance sensation, dizziness worse with movement. In ED: CTA head and neck without acute infarct, 69 proximal left ICA 60% proximal left ICA stenosis. Prn meclizine ordered. Vestibular PT Elevated Troponin: Trop 23->21, ECG NSR witn non specific T wave changes. Denied chest pain on admission CAD: S/p CABG in 2021. Continued home statin. Recommend continuing ASA through perioperative period. HTN: Per hx, Continued home CCB Tobacco Use: Smokes 1PPD, declined nicotine patch. Cessation encouraged Substance use: Admit utox with Cocaine and opiate, advised cessation as able Code status: Full DVT Prophylaxis: lovenox Medication Reconciliation: Reviewed using Patient interview, dispense report Current living situation: Home Expected Disposition: Same Estimated discharge date: 09/11/24 Medically Ready for Discharge: pending pain control ride Subjective: Labs / Testing / Ophthalmology Surgical Technician notes reviewed : BMP, CBC, Ortho High risk meds that require intensive monitoring : vanco Dizziness resolved Feels like hand/thumb is a little more swollen Tolerating PO well, no NV, had BM, urinating ok Wean off IV dilaudid Monitor respiratory status while on IV/PO narcotics acetaminophen, calcium carbonate, HYDROmorphone, meclizine, melatonin, nalOXone AND Notify physician AND naloxone, ondansetron OR ondansetron, oxyCODONE, Saline lock IV AND sodium chloride (PF) AND sodium chloride (PF) AND sodium chloride 0.9 % PT WEIGHT Weight 09/06/2024 5:42 PM 205 lb 09/06/2024 12:55 PM 205 lb 09/05/2024 7:18 AM 205 lb 07/14/2024 3:15 AM 200 lb 06/27/2024 9:44 PM 210 lb 05/12/2024 8:10 AM 214 lb 04/29/2024 4:47 PM 220 lb 02/14/2024 9:43 AM 220 lb No intake or output data in the 24 hours ending 09/10/24 1012 Physical Exam: BP 127/80 Pulse 72 Temp 97.6 F (36.4 C) (Oral) Resp 16 Ht 6' Wt 93 kg (205 lb) SpO2 95% BMI 27.80 kg/m General: NAD Eyes: anicteric ENT: neck supple Cardiovascular: Regular rate, no murmur Respiratory: Clear to auscultation, symmetric air entry Gastrointestinal: Soft, non tender, non distended, positive bowel sounds Genitourinary: no CVA tenderness Musculoskeletal: Right hand swelling, christina drain in thumb Skin: warm, dry, no LE edema Neuro: Answering questions appropriately, KNIGHT x 4 Psych: calm Current Medications: aspirin 81 mg Oral Daily atorvastatin 40 mg Oral Daily cefTRIAXone (ROCEPHIN) IVPB 2,000 mg Intravenous Q24H enoxaparin (LOVENOX) injection 40 mg Subcutaneous Daily gabapentin 800 mg Oral Q8H TONEY NIFEdipine 30 mg Oral Daily polyethylene glycol 17 g Oral Daily senna-docusate 1 tablet Oral BID sodium chloride (PF) 5 mL Intravenous Q8H TONEY acetaminophen, calcium carbonate, HYDROmorphone, meclizine, melatonin, nalOXone AND Notify physician AND naloxone, ondansetron OR ondansetron, oxyCODONE, Saline lock IV AND sodium chloride (PF) AND sodium chloride (PF) AND sodium chloride 0.9 % Labs, Imaging and Studies reviewed: Results from last 7 days Lab Units 09/10/24 0755 09/09/24 0620 09/08/24 0242 WBC K/mcL 9.34 9.05 12.02* HGB g/dL 15.3 13.7 13.5 HCT % 46.2 41.8 41.2 PLT K/mcL 298 237 218 Results from last 7 days Lab Units 09/10/24 0755 09/09/24 0619 09/08/24 0242 SODIUM mmol/L 139 141 139 POTASSIUM mmol/L 4.4 4.2 4.3 CHLORIDE mmol/L 103 107 103 BICARB mmol/L 26 25 24 BUN mg/dL 14 13 14 CREATININE mg/dL 0.88 0.82 0.78* EGFR mL/min/1.73 m2 94 96 98 GLUCOSE mg/dL 115* 98 158* CALCIUM mg/dL 9.4 9.1 8.5 Results from last 7 days Lab Units 09/06/24 1322 ALT U/L 14 AST U/L 16 ALK PHOS U/L 97 BILIRUBIN TOTAL mg/dL 1.2 Results from last 7 days Lab Units 09/06/24 1322 INR 1.1 Images from the original note were not included. Daily Progress Note Assessment/Plan: 69 y/o male with a history of right thumb infection who is now POD #1 status post I&D with Dr. Beavers (DOS: 09/07/2024) -finger stable in appearance -Continue BID warm, soapy water soaks -christina drain pulled this AM. -Intra-operative cultures with GAS. Currently on Rocephin -Stable for discharge today from hand surgery standpoint. Subjective/Objective: Doing ok today. Had morning bout of pain. Notes that the thumb feels more swollen On exam, he is alert and oriented. No acute distress. RUE: Volar thumb incision is well approximated with sutures. Christina drain remains in place, facilitating some serosanguinous drainage. No purulence was able to to expressed. Swelling stable from previous photos, no fluctuance. Ecchymosis present, erythema seems intervally improved. Sensation to light touch intact at the tip of the thumb. He can flex at the IP and MCP joint. Thumb is warm and well perfused with brisk capillary refill. Vital signs in last 24 hours: Temp: [97.4 F (36.3 C)-97.9 F (36.6 C)] 97.6 F (36.4 C) Heart Rate: [55-72] 72 Resp: [15-18] 18 BP: (124-146)/(71-90) 127/80 [facility] Inpatient Progress Note 09/09/2024 Maryse Mak 1955 [id number] Assessment/Plan: Maryse Mak is a 69 y.o. male with a history of CAD, HTN who presented to the [facility] for right had cellulitis, ortho evaluated and had concern for flexor tenosynovitis. S/p Vanc and zosyn and patient transferred to [facility] 09/06/2024 for hand surgery evaluation. Trop 23-21, WBC 19.29, CRP 194, UDS + for cocaine and opiates. CTA H/n without acute infarct. Right Hand Cellulitis: with concern for flexor tenosynovitis in setting of pain with passive extension, ascending lymphangitis. 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 Admit x-ray right hand without acute findings. MRI Rt hand with thumb cellultis and soft tissue swelling superficial to thumb flexor tendon, S/p I&D by hand surgery in ED. S/p I/D of Rt thumb flexor tenosynovitis. OR Cx S. Pyogens. Started Vancomycin, Zosyn in ED, transitioned to Rocephin. Admit Bcx admit NGTD Hand surgery following Vertigo: Pt has hx, With associated headache. Reported 3 days of off-balance sensation, dizziness worse with movement. In ED: CTA head and neck without acute infarct, 69 proximal left ICA 60% proximal left ICA stenosis. Prn meclizine ordered. Vestibular PT Elevated Troponin: Trop 23->21, ECG NSR witn non specific T wave changes. Denied chest pain on admission CAD: S/p CABG in 2021. Continued home statin. Recommend continuing ASA through perioperative period. HTN: Per hx, Continued home CCB Tobacco Use: Smokes 1PPD, declined nicotine patch. Cessation encouraged Substance use: Admit utox with Cocaine and opiate, advised cessation as able Code status: Full DVT Prophylaxis: lovenox Medication Reconciliation: Reviewed using Patient interview, dispense report Current living situation: Home Expected Disposition: Same Estimated discharge date: 1-2 days Medically Ready for Discharge: no pending swelling improvement, ortho hand Subjective: Labs / Testing / Ophthalmology Surgical Technician notes reviewed : BMP, CBC, Pharm High risk meds that require intensive monitoring : vacno Dizziness resolved Feels like hand/thumb is a little more swollen Tolerating PO well, no NV, had BM, urinating ok Monitor respiratory status while on IV/PO narcotics acetaminophen, calcium carbonate, HYDROmorphone, meclizine, melatonin, nalOXone AND Notify physician AND naloxone, ondansetron OR ondansetron, oxyCODONE, Saline lock IV AND sodium chloride (PF) AND sodium chloride (PF) AND sodium chloride 0.9 % PT WEIGHT Weight 09/06/2024 5:42 PM 205 lb 09/06/2024 12:55 PM 205 lb 09/05/2024 7:18 AM 205 lb 07/14/2024 3:15 AM 200 lb 06/27/2024 9:44 PM 210 lb 05/12/2024 8:10 AM 214 lb 04/29/2024 4:47 PM 220 lb 02/14/2024 9:43 AM 220 lb No intake or output data in the 24 hours ending 09/09/24 1119 Physical Exam: BP 123/81 Pulse (!) 58 Temp 97.8 F (36.6 C) (Oral) Resp 18 Ht 6' Wt 93 kg (205 lb) SpO2 93% BMI 27.80 kg/m General: NAD Eyes: anicteric ENT: neck supple Cardiovascular: Regular rate, no murmur Respiratory: Clear to auscultation, symmetric air entry Gastrointestinal: Soft, non tender, non distended, positive bowel sounds Genitourinary: no CVA tenderness Musculoskeletal: Right hand swelling, christina drain in thumb Skin: warm, dry, no LE edema Neuro: Answering questions appropriately, KNIGHT x 4 Psych: calm Current Medications: aspirin 81 mg Oral Daily atorvastatin 40 mg Oral Daily cefTRIAXone (ROCEPHIN) IVPB 2,000 mg Intravenous Q24H enoxaparin (LOVENOX) injection 40 mg Subcutaneous Daily gabapentin 800 mg Oral Q8H TONEY NIFEdipine 30 mg Oral Daily polyethylene glycol 17 g Oral Daily senna-docusate 1 tablet Oral BID sodium chloride (PF) 5 mL Intravenous Q8H TONEY acetaminophen, calcium carbonate, HYDROmorphone, meclizine, melatonin, nalOXone AND Notify physician AND naloxone, ondansetron OR ondansetron, oxyCODONE, Saline lock IV AND sodium chloride (PF) AND sodium chloride (PF) AND sodium chloride 0.9 % Labs, Imaging and Studies reviewed: Results from last 7 days Lab Units 09/09/24 0620 09/08/24 0242 09/07/24 0555 WBC K/mcL 9.05 12.02* 13.07* HGB g/dL 13.7 13.5 13.1* HCT % 41.8 41.2 39.1* PLT K/mcL 237 218 203 Results from last 7 days Lab Units 09/09/24 0619 09/08/24 0242 09/07/24 0555 SODIUM mmol/L 141 139 137 POTASSIUM mmol/L 4.2 4.3 3.7 CHLORIDE mmol/L 107 103 104 BICARB mmol/L 24 27 BUN mg/dL 13 14 10 CREATININE mg/dL 0.82 0.78* 0.84 EGFR mL/min/1.73 m2 96 98 96 GLUCOSE mg/dL 98 158* 122* CALCIUM mg/dL 9.1 8.5 8.6 Results from last 7 days Lab Units 09/06/24 1322 ALT U/L 14 AST U/L 16 ALK PHOS U/L 97 BILIRUBIN TOTAL mg/dL 1.2 Results from last 7 days Lab Units 09/06/24 1322 INR 1.1 Images from the original note were not included. Daily Progress Note Assessment/Plan: 69 y/o male with a history of right thumb infection who is now POD #1 status post I&D with Dr. Beavers (DOS: 09/07/2024) -finger looks slighty improing -WBC trending down -Continue BID warm, soapy water soaks -Maintain christina drain for now -Intra-operative cultures with GAS. Currently on Rocephin -Hand surgery will continue to follow. Anticipate discharge tomorrow. Subjective/Objective: Doing ok today. Had morning bout of pain. Notes that the thumb feels more swollen On exam, he is alert and oriented. No acute distress. RUE: Volar thumb incision is well approximated with sutures. Christina drain remains in place, facilitating some serosanguinous drainage. No purulence was able to to expressed. Moderate swelling remaining, but no fluctuance. There is dorsal ecchymosis, but no expanding erythema or lymphangitic streaking. Sensation to light touch intact at the tip of the thumb. He can flex at the IP and MCP joint. Thumb is warm and well perfused with brisk capillary refill. Vital signs in last 24 hours: Temp: [97.8 F (36.6 C)-98 F (36.7 C)] 97.8 F (36.6 C) Heart Rate: [45-62] 58 Resp: [16-18] 18 BP: (123-136)/(74-81) 123/81 Daily Progress Note Assessment/Plan: 69 y/o male with a history of right thumb infection who is now POD #1 status post I&D with Dr. Beavers (DOS: 09/07/2024) -He is improving today -WBC trending down -Continue BID warm, soapy water soaks -Maintain christina drain for now -Intra-operative cultures pending. Currently on vancomycin and Rocephin -Hand surgery will continue to follow. Anticipate discharge in the next 24-48 hours. Subjective/Objective: Mr. Mak reports that his thumb is still sore, but feeling much better today. Denies any fevers, chills, CP/SOB. On exam, he is alert and oriented. No acute distress. RUE: Volar thumb incision is well approximated with sutures. Christina drain remains in place, facilitating some serosanguinous drainage. No purulence was able to to expressed. Moderate swelling remaining, but no fluctuance. There is dorsal ecchymosis, but no expanding erythema or lymphangitic streaking. Sensation to light touch intact at the tip of the thumb. He can flex at the IP and MCP joint. Thumb is warm and well perfused with brisk capillary refill. Vital signs in last 24 hours: Temp: [97.6 F (36.4 C)-98.9 F (37.2 C)] 97.9 F (36.6 C) Heart Rate: [57-79] 57 Resp: [11-18] 17 BP: (109-142)/(69-99) 128/69 Anesthesia Progress Note 1 Day Post-Op Procedure(s): IRRIGATION AND DEBRIDEMENT OF RIGHT THUMB AND FLEXOR TENDON SHEATH Assessment / Plan Comment: Post anesthesia follow up visit: unable to speak with patient. Medical Staff at bedside. Temp: [36.4 C-37.2 C] 36.6 C Heart Rate: [57-79] 57 Resp: [11-18] 18 BP: (109-142)/(69-99) 128/69 SpO2: [88 %-99 %] 99 % [facility] In[facility] Progress Note 09/08/2024 Maryse Mak 1955 [id number] Assessment/Plan: Maryse Mak is a 69 y.o. male with a history of CAD, HTN who presented to the [facility] for right had cellulitis, ortho evaluated and had concern for flexor tenosynovitis. S/p Vanc and zosyn and patient transferred to [facility] 09/06/2024 for hand surgery evaluation. Trop 23-21, WBC 19.29, CRP 194, UDS + for cocaine and opiates. CTA H/n without acute infarct. Right Hand Cellulitis: with concern for flexor tenosynovitis in setting of pain with passive extension, ascending lymphangitis. 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 In ED: WBC 19.29 CRP 194, x-ray right hand without acute findings. S/p I&D by hand surgery in ED. Twice daily warm soapy soaks. Continue Vancomycin. Transitioned zosyn to Rocephin on admit. Wound and Bcx admit NGTD Hand surgery plan OR 09/07/24 . Vertigo: Pt has hx, With associated headache. Reported 3 days of off-balance sensation, dizziness worse with movement. In ED: CTA head and neck without acute infarct, 69 proximal left ICA 60% proximal left ICA stenosis. Prn meclizine ordered. Vestibular PT Elevated Troponin: Trop 23->21, ECG NSR witn non specific T wave changes. Denied chest pain on admission CAD: S/p CABG in 2021. Continued home statin. Recommend continuing ASA through perioperative period. HTN: Per hx, Continued home CCB Tobacco Use: Smokes 1PPD, declined nicotine patch. Cessation encouraged Substance use: Admit utox with Cocaine and opiate, advised cessation as able Code status: Full DVT Prophylaxis: scds Medication Reconciliation: Reviewed using Patient interview, dispense report Current living situation: Home Expected Disposition: Same Estimated discharge date: 1-2 days Medically Ready for Discharge: no pending OR Cx, ortho hand Subjective: Labs / Testing / Ophthalmology Surgical Technician notes reviewed : BMP, CBC, OR report High risk meds that require intensive monitoring : vacno Dizziness improving Pain in hand improving, able to move his fingers PT WEIGHT Weight 09/06/2024 5:42 PM 205 lb 09/06/2024 12:55 PM 205 lb 09/05/2024 7:18 AM 205 lb 07/14/2024 3:15 AM 200 lb 06/27/2024 9:44 PM 210 lb 05/12/2024 8:10 AM 214 lb 04/29/2024 4:47 PM 220 lb 02/14/2024 9:43 AM 220 lb Intake/Output Summary (Last 24 hours) at 09/08/2024 0856 Last data filed at 09/07/2024 1421 Gross per 24 hour Intake 400 ml Output 0 ml Net 400 ml Physical Exam: BP 128/69 Pulse (!) 57 Temp 97.9 F (36.6 C) (Oral) Resp 18 Ht 6' Wt 93 kg (205 lb) SpO2 97% BMI 27.80 kg/m General: NAD Eyes: anicteric ENT: neck supple Cardiovascular: Regular rate, no murmur Respiratory: Clear to auscultation, symmetric air entry Gastrointestinal: Soft, non tender, non distended, positive bowel sounds Genitourinary: no CVA tenderness Musculoskeletal: Right hand swelling, pain to palpation, pain with passive extension unable to make fist secondary to pain Skin: warm, dry, no LE edema Neuro: Answering questions appropriately, KNIGHT x 4 Psych: calm Current Medications: aspirin 81 mg Oral Daily atorvastatin 40 mg Oral Daily cefTRIAXone (ROCEPHIN) IVPB 2,000 mg Intravenous Q24H gabapentin 800 mg Oral Q8H TONEY NIFEdipine 30 mg Oral Daily senna-docusate 1 tablet Oral BID sodium chloride (PF) 5 mL Intravenous Q8H [facility] vancomycin 1,500 mg Intravenous Q24H acetaminophen, HYDROmorphone, meclizine, melatonin, nalOXone AND Notify physician AND naloxone, ondansetron OR ondansetron, oxyCODONE, Saline lock IV AND sodium chloride (PF) AND sodium chloride (PF) AND sodium chloride 0.9 % Labs, Imaging and Studies reviewed: Results from last 7 days Lab Units 09/08/24 0242 09/07/24 0555 09/06/24 1337 09/06/24 1322 WBC K/mcL 12.02* 13.07* -- 19.29* HGB g/dL 13.5 13.1* -- 15.5 HEMOGLOBIN BG g/dL -- -- 15.7 -- HEMATOCRIT, CALCULATED % -- -- 48.2 -- HCT % 41.2 39.1* -- 46.6 PLT K/mcL 218 203 -- 233 Results from last 7 days Lab Units 09/08/24 0242 09/07/24 0555 09/06/24 1337 09/06/24 1322 SODIUM mmol/L 139 137 138 136 POTASSIUM mmol/L 4.3 3.7 3.9 4.0 CHLORIDE mmol/L 103 104 102 99 BICARB mmol/L 24 27 -- 25 BUN mg/dL 14 10 -- 13 CREATININE mg/dL 0.78* 0.84 -- 1.14 EGFR mL/min/1.73 m2 98 96 -- 70 GLUCOSE mg/dL 158* 122* 80 84 CALCIUM mg/dL 8.5 8.6 -- 9.5 Results from last 7 days Lab Units 09/06/24 1322 ALT U/L 14 AST U/L 16 ALK PHOS U/L 97 BILIRUBIN TOTAL mg/dL 1.2 Results from last 7 days Lab Units 09/06/24 1322 INR 1.1 [facility] Inpatient Progress Note 09/07/2024 Maryse Mak 1955 [id number] Assessment/Plan: Maryse Mak is a 69 y.o. male with a history of CAD, HTN who presented to the [facility] ED for right had cellulitis, ortho evaluated and had concern for flexor tenosynovitis. S/p Vanc and zosyn and patient transferred to [facility] 09/06/2024 for hand surgery evaluation. Trop 23-21, WBC 19.29, CRP 194, UDS + for cocaine and opiates. CTA H/n without acute infarct. Right Hand Cellulitis: with concern for flexor tenosynovitis in setting of pain with passive extension, ascending lymphangitis. 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 In ED: WBC 19.29 CRP 194, x-ray right hand without acute findings. S/p I&D by hand surgery in ED. Twice daily warm soapy soaks. Continue Vancomycin. Transitioned zosyn to Rocephin on admit. Wound and Bcx admit NGTD Hand surgery plan OR 09/07/24 Preoperative evaluation: [facility] Revised Cardiac Index Risk Factors: Coronary artery disease . At home, patient able to complete > 4 METS as evidenced by ability to climb two flights of stairs without CP or dyspnea. Chronic medical conditions that increase perioperative risk not captured with RCRI include: age greater than 65 and cocaine abuse . On physical exam, patient does not demonstrate any evidence of clinically significant cardiac murmur, ACS or congestive heart failure. Most recent cardiac testing: Admit EKG NSR. After chart review and discussion with patient, qualifies for Intermediate Risk (2 RCRI with good functional status). No active CP complaints and good functional status, further cardiac testing will not reduce patients risk. . Further cardiac testing will not reduce patients risk and okay to proceed without further testing. Final decision to take patient to OR left to risk/benefit decision making of surgical team. Vertigo: With associated headache. Reported 3 days of off-balance sensation, dizziness worse with movement. In ED: CTA head and neck without acute infarct, 69 proximal left ICA 60% proximal left ICA stenosis. Prn meclizine ordered. Vestibular PT Elevated Troponin: Trop 23->21, ECG NSR witn non specific T wave changes. Denied chest pain on admission CAD: S/p CABG in 2021. Continued home statin. Recommend continuing ASA through perioperative period. HTN: Per hx, Continued home CCB Tobacco Use: Smokes 1PPD, declined nicotine patch. Cessation encouraged Substance use: Admit utox with Cocaine and opiate, advised cessation as able Code status: Full DVT Prophylaxis: scds Medication Reconciliation: Reviewed using Patient interview, dispense report Current living situation: Home Expected Disposition: Same Estimated discharge date: TBD Medically Ready for Discharge: no as above Subjective: Patient new to me. I reviewed prior medical records and history in EMR. Labs / Testing / Ophthalmology Surgical Technician notes reviewed : BMP, CBC DW Ortho hand RUCHI - ok for ASA Pt's last surgery CABG. Denies complications with anesthesia. Pt Denies chest pain, palpitations or LE edema. Has chronic SOB which is at baseline, reports this is since his CABG Pt is ABLE to climb 2 flights of stairs. Denies hx CHF, insulin dependent DM, CKD (Cr > 2), CVA. PT WEIGHT Weight 09/06/2024 5:42 PM 205 lb 09/06/2024 12:55 PM 205 lb 09/05/2024 7:18 AM 205 lb 07/14/2024 3:15 AM 200 lb 06/27/2024 9:44 PM 210 lb 05/12/2024 8:10 AM 214 lb 04/29/2024 4:47 PM 220 lb 02/14/2024 9:43 AM 220 lb Intake/Output Summary (Last 24 hours) at 09/07/2024 0851 Last data filed at 09/07/2024 0440 Gross per 24 hour Intake 500 ml Output 1050 ml Net -550 ml Physical Exam: BP 116/80 (BP Location: Left arm, Patient Position: Lying) Pulse 64 Temp 98.4 F (36.9 C) (Oral) Resp 16 Ht 6' Wt 93 kg (205 lb) SpO2 94% BMI 27.80 kg/m General: NAD Eyes: anicteric ENT: neck supple Cardiovascular: Regular rate, no murmur Respiratory: Clear to auscultation, symmetric air entry Gastrointestinal: Soft, non tender, non distended, positive bowel sounds Genitourinary: no CVA tenderness Musculoskeletal: Right hand swelling, pain to palpation, pain with passive extension unable to make fist secondary to pain Skin: warm, dry, no LE edema Neuro: Answering questions appropriately, KNIGHT x 4 Psych: calm Current Medications: atorvastatin 40 mg Oral Daily cefTRIAXone (ROCEPHIN) IVPB 2,000 mg Intravenous Q24H gabapentin 800 mg Oral Q8H TONEY NIFEdipine 30 mg Oral Daily senna-docusate 1 tablet Oral BID sodium chloride (PF) 5 mL Intravenous Q8H TONEY vancomycin 1,500 mg Intravenous Q24H acetaminophen, HYDROmorphone, meclizine, melatonin, nalOXone AND Notify physician AND naloxone, ondansetron OR ondansetron, oxyCODONE, Saline lock IV AND sodium chloride (PF) AND sodium chloride (PF) AND sodium chloride 0.9 % lactated Ringers 75 mL/hr (09/06/242029) Labs, Imaging and Studies reviewed: Results from last 7 days Lab Units 09/07/24 0555 09/06/24 1337 09/06/24 1322 09/05/24 0734 WBC K/mcL 13.07* -- 19.29* 11.98* HGB g/dL 13.1* -- 15.5 14.9 HEMOGLOBIN BG g/dL -- 15.7 -- -- HEMATOCRIT, CALCULATED % -- 48.2 -- -- HCT % 39.1* -- 46.6 46.0 PLT K/mcL 203 -- 233 226 Results from last 7 days Lab Units 09/07/24 0555 09/06/24 1337 09/06/24 1322 SODIUM mmol/L 137 138 136 POTASSIUM mmol/L 3.7 3.9 4.0 CHLORIDE mmol/L 104 102 99 BICARB mmol/L 27 -- 25 BUN mg/dL 10 -- 13 CREATININE mg/dL 0.84 -- 1.14 EGFR mL/min/1.73 m2 96 -- 70 GLUCOSE mg/dL 122* 80 84 CALCIUM mg/dL 8.6 -- 9.5 Results from last 7 days Lab Units 09/06/24 1322 ALT U/L 14 AST U/L 16 ALK PHOS U/L 97 BILIRUBIN TOTAL mg/dL 1.2 Results from last 7 days Lab Units 09/06/24 1322 INR 1.1 Images from the original note were not included. DAILY PROGRESS NOTE Patient Name: Maryse Mak MR #: [id number] Assessment/Plan: * Cellulitis of right hand Assessment & Plan 69 y.o. male presents with cellulitis of the right hand in the setting of burn wounds sustained 5 days [employer] - D/w Dr. Beavers - S/p bedside I&D of the right thumb proximal phalanx 09/06 - Cultures pend- will follow - MRI obtained 09/07/24 - Will plan for formal I&D today in OR- discussed with patient - Keep NPO - Continue IV antibiotics - Continue BID warm soapy soaks with packing changes - Multimodal pain control, elevation - Please contact hand surgery RUCHI consulting technical director with questions/concerns, will continue to follow S: Patient reports significant pain to his right thumb and palm. Endorses numbness to the thumb. Denies fever or chills. O: RUE: SILT to all fingers. R/U/M nerves all grossly intact. Able to wiggle all fingers. significant swelling over circumferential thumb and thenar eminance with TTP. Packing removed, no purulence noted from wound. Erythema to circumferential thumb, palm and dorsal hand. Lymphangitic streaking appreciated to mid-volar forearm. BP 116/80 (BP Location: Left arm, Patient Position: Lying) Pulse 64 Temp 98.4 F (36.9 C) (Oral) Resp 16 Ht 6' Wt 93 kg (205 lb) SpO2 94% BMI 27.80 kg/m JANAY Pal[facility] Orthopedic & Hand Surgery PHARMACOTHERAPY NOTE: Antimicrobial Therapy Initiation Assessment / Plan: Maryse Mak is a 69 y.o. male initiated on vancomycin therapy for skin/soft tissue infection . Patient transferred from , where he received a loading dose of vancomycin 2000 mg on 09-06-24 at 1511 Patient initiated on a loading dose of vancomycin 2000 mg followed by maintenance doses of 1500 mg q24h. Vancomycin goal AUC is 400 - 600 mcg h/mL. The current regimen will produce a predicted AUC of 453 mcg h/mL with trough of 11.1 mcg/mL. Pharmacy will continue to follow, order levels, and make adjustments as needed. Other antimicrobial agents include: ceftriaxone. Please call pharmacy with questions. Objective: Ht Readings from Last 1 Encounters: 09/06/24 6' (182.9 cm) Wt Readings from Last 1 Encounters: 09/06/24 93 kg (205 lb) [place] body weight: 77.6 kg (171 lb 1.2 oz) Adjusted ideal body weight: 83.8 kg (184 lb 10.3 oz) Labs include: WBC (K/mcL) Date Value 09/06/2024 19.29 (H) 02/21/2018 12.4 (H) Creatinine (mg/dL) Date Value 09/06/2024 1.14 02/21/2018 1.10 Estimated Creatinine Clearance: 69 mL/min (by C-G formula based on SCr of 1.14 mg/dL). Patient Tmax (last 24 hours): 98.4 F Micro: Procedure Component Value Units Date/Time Wound Aerobic And Anaerobic Culture [[id number]] Collected: 09/06/241951 Order Status: Completed Specimen: Abscess from Finger, Right, Thumb Updated: 09/06/242205 Gram Stain Result No Organisms Seen Few WBC Many RBC Procalcitonin [[id number]] (Abnormal) Collected: 09/06/24 132 Order Status: Completed Specimen: Blood Updated: 09/06/24 1440 Procalcitonin 0.66 High ng/ml Narrative: Results of 0.50 and 2.00 ng/ml are indeterminate and should be repeated within 6-24 hours. Blood Culture Aerobic/Anaerobic [[id number]] (Normal) Collected: 09/06/241321 Order Status: Completed Specimen: Blood, Peripheral Updated: 09/06/24 1559 Culture In Progress; No Growth to Date Blood Culture Aerobic/Anaerobic [[id number]] (Normal) Collected: 09/06/241321 Order Status: Completed Specimen: Blood, Peripheral Updated: 09/06/24 1559 Culture In Progress; No Growth to Date Pharmacist: Villa Mckay, JospehD, MS, BCCCP Contact: [address], secure chat Electronically signed by Villa Mckay, [facility],PharmD at 09/07/2024 12:35 AM EDT documented in this encounter [facility] 09-11-2024 Hospital Discharge instructions Maura Lorenzo CNP - 09/11/2024 9:57 AM EDT IRRIGATION AND DRAINAGE OF AN ABSCESS, HOME CARE INSTRUCTIONS Medication -Be sure to take all of your antibiotics until they are gone, even if you are feeling better -Take medication as directed. No driving or drinking alcohol while taking pain medication. -Resume all medication you were taking before surgery. Wound Care -Remove dressing and replace with clean, dry dressing over wound.daily Activity -Relax for the first 24 hours after surgery. -Elevate the affected area above the heart to reduce pain and swelling. -You may resume your normal activity as tolerated. -Walking is encouraged. Slowly build up the length, time and distance you walk. -You can return to your normal routine when you feel ready. Diet & Bowel Activity -You may begin eating and drinking as soon as you feel up to it. -Drink plenty of fluids. -If you are taking pain medication, take an over the counter stool softener to prevent constipation. Call Your Surgeon if: -You have chills or a persistent fever 101 degrees F., increased swelling, redness or drainage at the incision site. -You have questions or concerns about your condition, procedure or care. Call the clinic office or go to the nearest emergency room if: -You develop red streaking to extremity -You develop fevers or chills -You develop a sudden increase in your pain -You have trouble breathing all of a sudden. -You have chest pain. Brooke Hernandes MD - 09/11/2024 3:20 PM EDT You were admitted for a Rt hand infection that involved the tendon of the thumb. You had an I/D with Dr Beavers You need to follow up with your PCP within 1 week. Let them know you were just discharged from the hospital and they should try to fit you in. Call and make an appointment. Try to follow up with Dr Beavers in [address] operate heavy machinery while on narcotics. Narcotics can make you constipated. Take senna while on narcotics. If you gets constipated you can also take miralax which is over the counter Stop smoking and doing any drugs. Smoking and cocaine impair wound healing documented in this encounter [facility] 09-10-2024 Note [facility] Note 09/10/2024 Maryse Mak 1955 [id number] Assessment/Plan: Maryse Mak is a 69 y.o. male with a history of CAD, HTN who presented to the [facility] ED for right had cellulitis, ortho evaluated and had concern for flexor tenosynovitis. S/p Vanc and zosyn and patient transferred to [facility] 09/06/2024 for hand surgery evaluation. Trop 23-21, WBC 19.29, CRP 194, UDS + for cocaine and opiates. CTA H/n without acute infarct. Right Hand Cellulitis: with concern for flexor tenosynovitis in setting of pain with passive extension, ascending lymphangitis. 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 Admit x-ray right hand without acute findings. MRI Rt hand with thumb cellultis and soft tissue swelling superficial to thumb flexor tendon, S/p I&D by hand surgery in ED. S/p I/D of Rt thumb flexor tenosynovitis. OR Cx S. Pyogens. Started Vancomycin, Zosyn in ED, transitioned to Rocephin. Admit Bcx admit NGTD Hand surgery following Vertigo: Pt has hx, With associated headache. Reported 3 days of off-balance sensation, dizziness worse with movement. In ED: CTA head and neck without acute infarct, 69 proximal left ICA 60% proximal left ICA stenosis. Prn meclizine ordered. Vestibular PT Elevated Troponin: Trop 23->21, ECG NSR witn non specific T wave changes. Denied chest pain on admission CAD: S/p CABG in 2021. Continued home statin. Recommend continuing ASA through perioperative period. HTN: Per hx, Continued home CCB Tobacco Use: Smokes 1PPD, declined nicotine patch. Cessation encouraged Substance use: Admit utox with Cocaine and opiate, advised cessation as able Code status: Full DVT Prophylaxis: lovenox Medication Reconciliation: Reviewed using Patient interview, dispense report Current living situation: Home Expected Disposition: Same Estimated discharge date: 09/11/24 Medically Ready for Discharge: pending pain control ride Subjective: Labs / Testing / Ophthalmology Surgical Technician notes reviewed : BMP, CBC, Ortho High risk meds that require intensive monitoring : vanco Dizziness resolved Feels like hand/thumb is a little more swollen Tolerating PO well, no NV, had BM, urinating ok Wean off IV dilaudid Monitor respiratory status while on IV/PO narcotics acetaminophen, calcium carbonate, HYDROmorphone, meclizine, melatonin, nalOXone AND Notify physician AND naloxone, ondansetron OR ondansetron, oxyCODONE, Saline lock IV AND sodium chloride (PF) AND sodium chloride (PF) AND sodium chloride 0.9 % PT WEIGHT Weight 09/06/2024 5:42 PM 205 lb 09/06/2024 12:55 PM 205 lb 09/05/2024 7:18 AM 205 lb 07/14/2024 3:15 AM 200 lb 06/27/2024 9:44 PM 210 lb 05/12/2024 8:10 AM 214 lb 04/29/2024 4:47 PM 220 lb 02/14/2024 9:43 AM 220 lb No intake or output data in the 24 hours ending 09/10/24 1012 Physical Exam: BP 127/80 Pulse 72 Temp 97.6 degrees F (36.4 degrees C) (Oral) Resp 16 Ht 6' Wt 93 kg (205 lb) SpO2 95% BMI 27.80 kg/m General: NAD Eyes: anicteric ENT: neck supple Cardiovascular: Regular rate, no murmur Respiratory: Clear to auscultation, symmetric air entry Gastrointestinal: Soft, non tender, non distended, positive bowel sounds Genitourinary: no CVA tenderness Musculoskeletal: Right hand swelling, christina drain in thumb Skin: warm, dry, no LE edema Neuro: Answering questions appropriately, KNIGHT x 4 Psych: calm Current Medications: aspirin 81 mg Oral Daily atorvastatin 40 mg Oral Daily cefTRIAXone (ROCEPHIN) IVPB 2,000 mg Intravenous Q24H enoxaparin (LOVENOX) injection 40 mg Subcutaneous Daily gabapentin 800 mg Oral Q8H TONEY NIFEdipine 30 mg Oral Daily polyethylene glycol 17 g Oral Daily senna-docusate 1 tablet Oral BID sodium chloride (PF) 5 mL Intravenous Q8H TONEY acetaminophen, calcium carbonate, HYDROmorphone, meclizine, melatonin, nalOXone AND Notify physician AND naloxone, ondansetron OR ondansetron, oxyCODONE, Saline lock IV AND sodium chloride (PF) AND sodium chloride (PF) AND sodium chloride 0.9 % Labs, Imaging and Studies reviewed: Results from last 7 days Lab Units 09/10/24 0755 09/09/24 0620 09/08/24 0242 WBC K/mcL 9.34 9.05 12.02* HGB g/dL 15.3 13.7 13.5 HCT % 46.2 41.8 41.2 PLT K/mcL 298 237 218 Results from last 7 days Lab Units 09/10/24 0755 09/09/24 0619 09/08/24 0242 SODIUM mmol/L 139 141 139 POTASSIUM mmol/L 4.4 4.2 4.3 CHLORIDE mmol/L 103 107 103 BICARB mmol/L BUN mg/dL 14 13 14 CREATININE mg/dL 0.88 0.82 0.78* EGFR mL/min/1.73 m2 94 96 98 GLUCOSE mg/dL 115* 98 158* CALCIUM mg/dL 9.4 9.1 8.5 Results from last 7 days Lab Units 09/06/24 1322 ALT U/L 14 AST U/L 16 ALK PHOS U/L 97 BILIRUBIN TOTAL mg/dL 1.2 Results from last 7 days Lab Units 09/06/24 1322 INR 1.1 AUTHENTICATED BY BROOKE HERNANDES ON 09/10/2024 14:37:49 [facility] 09-10-2024 Note Daily Progress Note Assessment/Plan: 69 y/o male with a history of right thumb infection who is now POD #1 status post I&D with Dr. Beavers (DOS: 09/07/2024) -finger stable in appearance -Continue BID warm, soapy water soaks -christina drain pulled this AM. -Intra-operative cultures with GAS. Currently on Rocephin -Stable for discharge today from hand surgery standpoint. Subjective/Objective: Doing ok today. Had morning bout of pain. Notes that the thumb feels more swollen On exam, he is alert and oriented. No acute distress. RUE: Volar thumb incision is well approximated with sutures. Christina drain remains in place, facilitating some serosanguinous drainage. No purulence was able to to expressed. Swelling stable from previous photos, no fluctuance. Ecchymosis present, erythema seems intervally improved. Sensation to light touch intact at the tip of the thumb. He can flex at the IP and MCP joint. Thumb is warm and well perfused with brisk capillary refill. Vital signs in last 24 hours: Temp: [97.4 degrees F (36.3 degrees C)-97.9 degrees F (36.6 degrees C)] 97.6 degrees F (36.4 degrees C) Heart Rate: [55-72] 72 Resp: [15-18] 18 BP: (124-146)/(71-90) 127/80 AUTHENTICATED BY FLORENCIO SHARMA, ON 09/10/2024 09:27:56 [facility] 09-09-2024 Note [facility] Inpatient Pro duong Note 09/09/2024 Maryse Mak 1955 [id number] Assessment/Plan: Maryse Mak is a 69 y.o. male with a history of CAD, HTN who presented to the [facility] for right had cellulitis, ortho evaluated and had concern for flexor tenosynovitis. S/p Vanc and zosyn and patient transferred to [facility] 09/06/2024 for hand surgery evaluation. Trop 23-21, WBC 19.29, CRP 194, UDS + for cocaine and opiates. CTA H/n without acute infarct. Right Hand Cellulitis: with concern for flexor tenosynovitis in setting of pain with passive extension, ascending lymphangitis. 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 Admit x-ray right hand without acute findings. MRI Rt hand with thumb cellultis and soft tissue swelling superficial to thumb flexor tendon, S/p I&D by hand surgery in ED. S/p I/D of Rt thumb flexor tenosynovitis. OR Cx S. Pyogens. Started Vancomycin, Zosyn in ED, transitioned to Rocephin. Admit Bcx admit NGTD Hand surgery following Vertigo: Pt has hx, With associated headache. Reported 3 days of off-balance sensation, dizziness worse with movement. In ED: CTA head and neck without acute infarct, 69 proximal left ICA 60% proximal left ICA stenosis. Prn meclizine ordered. Vestibular PT Elevated Troponin: Trop 23->21, ECG NSR witn non specific T wave changes. Denied chest pain on admission CAD: S/p CABG in 2021. Continued home statin. Recommend continuing ASA through perioperative period. HTN: Per hx, Continued home CCB Tobacco Use: Smokes 1PPD, declined nicotine patch. Cessation encouraged Substance use: Admit utox with Cocaine and opiate, advised cessation as able Code status: Full DVT Prophylaxis: lovenox Medication Reconciliation: Reviewed using Patient interview, dispense report Current living situation: Home Expected Disposition: Same Estimated discharge date: 1-2 days Medically Ready for Discharge: no pending swelling improvement, ortho hand Subjective: Labs / Testing / Ophthalmology Surgical Technician notes reviewed : BMP, CBC, Pharm High risk meds that require intensive monitoring : vacno Dizziness resolved Feels like hand/thumb is a little more swollen Tolerating PO well, no NV, had BM, urinating ok Monitor respiratory status while on IV/PO narcotics acetaminophen, calcium carbonate, HYDROmorphone, meclizine, melatonin, nalOXone AND Notify physician AND naloxone, ondansetron OR ondansetron, oxyCODONE, Saline lock IV AND sodium chloride (PF) AND sodium chloride (PF) AND sodium chloride 0.9 % PT WEIGHT Weight 09/06/2024 5:42 PM 205 lb 09/06/2024 12:55 PM 205 lb 09/05/2024 7:18 AM 205 lb 07/14/2024 3:15 AM 200 lb 06/27/2024 9:44 PM 210 lb 05/12/2024 8:10 AM 214 lb 04/29/2024 4:47 PM 220 lb 02/14/2024 9:43 AM 220 lb No intake or output data in the 24 hours ending 09/09/24 1119 Physical Exam: BP 123/81 Pulse (!) 58 Temp 97.8 degrees F (36.6 degrees C) (Oral) Resp 18 Ht 6' Wt 93 kg (205 lb) SpO2 93% BMI 27.80 kg/m General: NAD Eyes: anicteric ENT: neck supple Cardiovascular: Regular rate, no murmur Respiratory: Clear to auscultation, symmetric air entry Gastrointestinal: Soft, non tender, non distended, positive bowel sounds Genitourinary: no CVA tenderness Musculoskeletal: Right hand swelling, christina drain in thumb Skin: warm, dry, no LE edema Neuro: Answering questions appropriately, KNIGHT x 4 Psych: calm Current Medications: aspirin 81 mg Oral Daily atorvastatin 40 mg Oral Daily cefTRIAXone (ROCEPHIN) IVPB 2,000 mg Intravenous Q24H enoxaparin (LOVENOX) injection 40 mg Subcutaneous Daily gabapentin 800 mg Oral Q8H TONEY NIFEdipine 30 mg Oral Daily polyethylene glycol 17 g Oral Daily senna-docusate 1 tablet Oral BID sodium chloride (PF) 5 mL Intravenous Q8H TONEY acetaminophen, calcium carbonate, HYDROmorphone, meclizine, melatonin, nalOXone AND Notify physician AND naloxone, ondansetron OR ondansetron, oxyCODONE, Saline lock IV AND sodium chloride (PF) AND sodium chloride (PF) AND sodium chloride 0.9 % Labs, Imaging and Studies reviewed: Results from last 7 days Lab Units 09/09/24 0620 09/08/24 0242 09/07/24 0555 WBC K/mcL 9.05 12.02* 13.07* HGB g/dL 13.7 13.5 13.1* HCT % 41.8 41.2 39.1* PLT K/mcL 237 218 203 Results from last 7 days Lab Units 09/09/24 0619 09/08/24 0242 09/07/24 0555 SODIUM mmol/L 141 139 137 POTASSIUM mmol/L 4.2 4.3 3.7 CHLORIDE mmol/L 107 103 104 BICARB mmol/L 25 24 27 BUN mg/dL 13 14 10 CREATININE mg/dL 0.82 0.78* 0.84 EGFR mL/min/1.73 m2 96 98 96 GLUCOSE mg/dL 98 158* 122* CALCIUM mg/dL 9.1 8.5 8.6 Results from last 7 days Lab Units 09/06/24 1322 ALT U/L 14 AST U/L 16 ALK PHOS U/L 97 BILIRUBIN TOTAL mg/dL 1.2 Results from last 7 days Lab Units 09/06/24 1322 INR 1.1 AUTHENTICATED BY BROOKE HERNANDES ON 09/09/2024 11:25:53 [facility] 09-09-2024 Note Daily Progress Note Assessment/Plan: 69 y/o male with a history of right thumb infection who is now POD #1 status post I&D with Dr. Beavers (DOS: 09/07/2024) -finger looks slighty improing -WBC trending down -Continue BID warm, soapy water soaks -Maintain christina drain for now -Intra-operative cultures with GAS. Currently on Rocephin -Hand surgery will continue to follow. Anticipate discharge tomorrow. Subjective/Objective: Doing ok today. Had morning bout of pain. Notes that the thumb feels more swollen On exam, he is alert and oriented. No acute distress. RUE: Volar thumb incision is well approximated with sutures. [place] drain remains in place, facilitating some serosanguinous drainage. No purulence was able to to expressed. Moderate swelling remaining, but no fluctuance. There is dorsal ecchymosis, but no expanding erythema or lymphangitic streaking. Sensation to light touch intact at the tip of the thumb. He can flex at the IP and MCP joint. Thumb is warm and well perfused with brisk capillary refill. Vital signs in last 24 hours: Temp: [97.8 degrees F (36.6 degrees C)-98 degrees F (36.7 degrees C)] 97.8 degrees F (36.6 degrees C) Heart Rate: [45-62] 58 Resp: [16-18] 18 BP: (123-136)/(74-81) 123/81 AUTHENTICATED BY HENRY ROBLES, ON 09/09/2024 09:56:37 [facility] 09-08-2024 History of Present illness Narrative Negative preliminary blood cultures. No further action needed. documented in this encounter [facility] 09-08-2024 Note Daily Progress Note Assessment/Plan: 69 y/o male with a history of right thumb infection who is now POD #1 status post I&D with Dr. Beavers (DOS: 09/07/2024) -He is improving today -WBC trending down -Continue BID warm, soapy water soaks -Maintain christina drain for now -Intra-operative cultures pending. Currently on vancomycin and Rocephin -Hand surgery will continue to follow. Anticipate discharge in the next 24-48 hours. Subjective/Objective: Mr. Mak reports that his thumb is still sore, but feeling much better today. Denies any fevers, chills, CP/SOB. On exam, he is alert and oriented. No acute distress. RUE: Volar thumb incision is well approximated with sutures. Christina drain remains in place, facilitating some serosanguinous drainage. No purulence was able to to expressed. Moderate swelling remaining, but no fluctuance. There is dorsal ecchymosis, but no expanding erythema or lymphangitic streaking. Sensation to light touch intact at the tip of the thumb. He can flex at the IP and MCP joint. Thumb is warm and well perfused with brisk capillary refill. Vital signs in last 24 hours: Temp: [97.6 degrees F (36.4 degrees C)-98.9 degrees F (37.2 degrees C)] 97.9 degrees F (36.6 degrees C) Heart Rate: [57-79] 57 Resp: [11-18] 17 BP: (109-142)/(69-99) 128/69 AUTHENTICATED BY NIKKI HASSAN, ON 09/08/2024 12:39:37 [facility] 09-08-2024 Consult note Formatting of th is note might be different from the original. Physical Therapy Physical Therapy Vestibular Note Impressions: PT Vestibular Impressions PT Vestibular Impression: Pt presents with episodic vertigo, positional in nature based on pt's description. Oculomotor testing all WFL, positional testing all negative for BPPV. Performed positional testing multiple times with variations due to limited cervical ROM. Unable to trigger symptoms or nystagmus with any testing. Educated pt on vestibular PT follow up for re-testing if pt wishes. Pt reports he is moving next week, so provided info on what type of PT to look for in new city/state. Oculomotor Testing: Oculomotor Testing Spontaneous Nystagmus: Not present Gaze Hold Nystagmus: No nystagmus present Smooth Pursuit: Within Normal Limits (WNL) Saccades: Within Normal Limits (WNL) VOR Cancellation: Within Normal Limits (WNL) Head Thrust / VOR Fast: Within Normal Limits (WNL) Positional Testing: Positional Testing Pranav Hallpike: Within Normal Limits (WNL) Modified Side Lying Test: Within Normal Limits (WNL) Roll Test: Within Normal Limits (WNL) For complete Physical Therapy Vestibular assessment, treatment, and education, refer to the Vestibular flowsheet and Plan of Care documenation. This note and corresponding flowsheets stand as the Discharge Summary upon patient discharge from the hospital or completion of the Physical Therapy Plan of Care. [facility] 09-08-2024 Consult note Formatting of th is note is different from the original. Physical Therapy PHYSICAL THERAPY EVALUATION AND DISCHARGE NOTE Skilled Therapy Needs After Discharge Are search advertising strategist Therapy Services Needed After Discharge: No PT DME Recommendation: None Outcomes Measures Prior Function - Basic Mobility Raw Score: 24 Points Prior Function - Basic Mobility % Impaired: 0% AM-PAC Basic Mobility Raw Score: 22 Points AM-PAC Basic Mobility % Impaired: 25.02% Physical Therapy Assessment History: The following factors influence the patient's participation in the PT plan of care: Personal Factors: Social Barriers The following co-morbidities (from this admission or prior) influence the patient's participation in this plan of care: h/o CAD, HTN, back surgeries; pt admitted with right hand cellulitis s/p I&D, vertigo Number of History elements affecting this patient's PT plan of care: 1 to 2 Examination of Body Systems: . These impairments result in limitations of Gait. These impairments result in restrictions of Other (comment). Number of Body Systems elements affecting this patient's PT plan of care: 1 to 2. Clinical Presentation: The patient's clinical presentation for this PT evaluation is with stable and/or uncomplicated characteristics as evidenced by current PT documentation. Therapy Precautions Weight Bearing Status: X RUE: Wt bearing as tolerated Balance Assessment Sitting Balance - Static: Independent Sitting Balance - Dynamic: Independent Standing Balance - Static: Independent Standing Balance - Dynamic: Supervision Bed Mobility Rolling: Independent Supine to Sit: Independent Sit to Supine: Independent Transfers Sit to Stand: Independent Gait/Locomotion Gait Assistance: Supervision Pattern: R impaired heel strike, L impaired heel strike, decreased dee (steps per minute) (intermittent decreased foot clearance on right- pt reports baseline from back injury/surgeries) Additional Assessment Details Home Living Obtained Home Living and PLOF info from: Patient Lives With: (pt reports living between friends home, pt is moving out of state next week) Mobility Equipment: (none) Prior Level of Function Level of [place] - Transfers/Ambulation/Mobility: Independent with functional transfers, Independent with household ambulation, Independent with community ambulation Level of [place] - ADLs: Independent Level of [place] - Homemaking: Independent Driving: Patient drives Past Medical History: Diagnosis Date Alcohol abuse 06/19/2019 Arthritis Chronic back pain Chronic obstructive pulmonary disease (HCC) 02/07/2024 Clotting disorder DVT Cocaine abuse (HCC) 10/28/2017 Coronary artery disease moderate stenosis of LAD and mild plaque in other vessels Homeless 06/19/2019 Hyperlipidemia Hypertension Tobacco dependence 04/29/2020 Past Surgical History: Procedure Laterality Date BACK SURGERY BRING BACK OPEN HEART N/A 08/19/2022 Procedure: STERNAL WOUND EXPLORATION; Surgeon: Wood Eng MD; Location: Main OR; Service: Cardiothoracic CABG W/ RADIAL ARTERY HARVEST N/A 11/20/2021 Procedure: CORONARY ARTERY BYPASS GRAFT X2 AND LEFT AND RIGHT INTERNAL MAMMARY ARTERY GRAFTS; Surgeon: Wood Eng MD; Location: Main OR; Service: Cardiothoracic CARDIAC CATHETERIZATION N/A 11/07/2021 Procedure: Coronary Angiogram; Surgeon: Minoo Grimm MD; Location: [facility]; Service: Cardiovascular CV IR INTERVENTIONAL RADIOLOGY N/A 09/01/2022 Procedure: VR Aspiration Sternal seroma; Surgeon: Florencio Chambers MD; Location: IR LAB; Service: Interventional Radiology HC LEFT HEART CATH N/A 11/07/2021 Procedure: Left Heart Cath; Surgeon: Minoo Grimm MD; Location: [facility]; Service: Cardiovascular INCISION AND DRAINAGE HAND/FINGER Right 09/07/2024 Procedure: IRRIGATION AND DEBRIDEMENT OF RIGHT THUMB AND FLEXOR TENDON SHEATH; Surgeon: Aristeo Beavers MD; Location: [facility] Main OR; Service: Orthopedic; Laterality: Right; left arm leg sx right and left blood clots Bilateral 2009 in [facility] SHOULDER SURGERY STERNAL WIRING N/A 08/06/2022 Procedure: STERNAL INTERNAL FIXATION WITH PLATING AND SCREWS; Surgeon: Wood Eng MD; Location: Main OR; Service: Cardiothoracic For complete objective data, detailed plan of care and patient education refer to: PT Evaluation flowsheet, PT Evaluation and Treatment flowsheet, PT Treatment flowsheet, patient Plan of Care, Plan of Care progress note, and Patient Education. This note stands as the current Discharge Summary upon patient discharge from the hospital or completion of Physical Therapy Plan. [facility] 09-08-2024 Note [facility] Inpatient Pro duong Note 09/08/2024 Maryse Mak 1955 [id number] Assessment/Plan: Maryse Mak is a 69 y.o. male with a history of CAD, HTN who presented to the [facility] ED for right had cellulitis, ortho evaluated and had concern for flexor tenosynovitis. S/p Vanc and zosyn and patient transferred to [facility] 09/06/2024 for hand surgery evaluation. Trop 23-21, WBC 19.29, CRP 194, UDS + for cocaine and opiates. CTA H/n without acute infarct. Right Hand Cellulitis: with concern for flexor tenosynovitis in setting of pain with passive extension, ascending lymphangitis. 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 In ED: WBC 19.29 CRP 194, x-ray right hand without acute findings. S/p I&D by hand surgery in ED. Twice daily warm soapy soaks. Continue Vancomycin. Transitioned zosyn to Rocephin on admit. Wound and Bcx admit NGTD Hand surgery plan OR 09/07/24 . Vertigo: Pt has hx, With associated headache. Reported 3 days of off-balance sensation, dizziness worse with movement. In ED: CTA head and neck without acute infarct, 69 proximal left ICA 60% proximal left ICA stenosis. Prn meclizine ordered. Vestibular PT Elevated Troponin: Trop 23->21, ECG NSR witn non specific T wave changes. Denied chest pain on admission CAD: S/p CABG in 2021. Continued home statin. Recommend continuing ASA through perioperative period. HTN: Per hx, Continued home CCB Tobacco Use: Smokes 1PPD, declined nicotine patch. Cessation encouraged Substance use: Admit utox with Cocaine and opiate, advised cessation as able Code status: Full DVT Prophylaxis: scds Medication Reconciliation: Reviewed using Patient interview, dispense report Current living situation: Home Expected Disposition: Same Estimated discharge date: 1-2 days Medically Ready for Discharge: no pending OR Cx, ortho hand Subjective: Labs / Testing / Ophthalmology Surgical Technician notes reviewed : BMP, CBC, OR report High risk meds that require intensive monitoring : vacno Dizziness improving Pain in hand improving, able to move his fingers PT WEIGHT Weight 09/06/2024 5:42 PM 205 lb 09/06/2024 12:55 PM 205 lb 09/05/2024 7:18 AM 205 lb 07/14/2024 3:15 AM 200 lb 06/27/2024 9:44 PM 210 lb 05/12/2024 8:10 AM 214 lb 04/29/2024 4:47 PM 220 lb 02/14/2024 9:43 AM 220 lb Intake/Output Summary (Last 24 hours) at 09/08/2024 0856 Last data filed at 09/07/2024 1421 Gross per 24 hour Intake 400 ml Output 0 ml Net 400 ml Physical Exam: BP 128/69 Pulse (!) 57 Temp 97.9 degrees F (36.6 degrees C) (Oral) Resp 18 Ht 6' Wt 93 kg (205 lb) SpO2 97% BMI 27.80 kg/m General: NAD Eyes: anicteric ENT: neck supple Cardiovascular: Regular rate, no murmur Respiratory: Clear to auscultation, symmetric air entry Gastrointestinal: Soft, non tender, non distended, positive bowel sounds Genitourinary: no CVA tenderness Musculoskeletal: Right hand swelling, pain to palpation, pain with passive extension unable to make fist secondary to pain Skin: warm, dry, no LE edema Neuro: Answering questions appropriately, KNIGHT x 4 Psych: calm Current Medications: aspirin 81 mg Oral Daily atorvastatin 40 mg Oral Daily cefTRIAXone (ROCEPHIN) IVPB 2,000 mg Intravenous Q24H gabapentin 800 mg Oral Q8H TONEY NIFEdipine 30 mg Oral Daily senna-docusate 1 tablet Oral BID sodium chloride (PF) 5 mL Intravenous Q8H [facility] vancomycin 1,500 mg Intravenous Q24H acetaminophen, HYDROmorphone, meclizine, melatonin, nalOXone AND Notify physician AND naloxone, ondansetron OR ondansetron, oxyCODONE, Saline lock IV AND sodium chloride (PF) AND sodium chloride (PF) AND sodium chloride 0.9 % Labs, Imaging and Studies reviewed: Results from last 7 days Lab Units 09/08/24 0242 09/07/24 0555 09/06/24 1337 09/06/24 1322 WBC K/mcL 12.02* 13.07* -- 19.29* HGB g/dL 13.5 13.1* -- 15.5 HEMOGLOBIN BG g/dL -- -- 15.7 -- HEMATOCRIT, CALCULATED % -- -- 48.2 -- HCT % 41.2 39.1* -- 46.6 PLT K/mcL 218 203 -- 233 Results from last 7 days Lab Units 09/08/24 0242 09/07/24 0555 09/06/24 1337 09/06/24 1322 SODIUM mmol/L 139 137 138 136 POTASSIUM mmol/L 4.3 3.7 3.9 4.0 CHLORIDE mmol/L 103 104 102 99 BICARB mmol/L 24 27 -- 25 BUN mg/dL 14 10 -- 13 CREATININE mg/dL 0.78* 0.84 -- 1.14 EGFR mL/min/1.73 m2 98 96 -- 70 GLUCOSE mg/dL 158* 122* 80 84 CALCIUM mg/dL 8.5 8.6 -- 9.5 Results from last 7 days Lab Units 09/06/24 1322 ALT U/L 14 AST U/L 16 ALK PHOS U/L 97 BILIRUBIN TOTAL mg/dL 1.2 Results from last 7 days Lab Units 09/06/24 1322 INR 1.1 AUTHENTICATED BY BROOKE HERNANDES ON 09/08/2024 11:35:15 [facility] 09-07-2024 Note Formatting of this n ote is different from the original. Images from the original note were not included. [facility] Utilization Review Notes HISTORY OF PRESENT ILLNESS: Maryse Mak is a 69 y.o. male with a history of CAD, COPD, HTN who presented to the [facility] ED for right had cellulitis, ortho evaluated and had concern for flexor tenosynovitis. S/p Vanc and zosyn and patient transferred to [facility] 09/06/2024 for hand surgery evaluation. Trop 23-21, WBC 19.29, CRP 194, UDS + for cocaine and opiates. CTA H/n without acute infarct. Patient seen evaluated room 95. Patient is a 67-year-old male who presented to the ED for evaluation of right hand cellulitis. Patient was changed from outlying facility secondary to this. Patient reports start about 5 days ago when he noticed a burn to his hand after working on his car. He did attempt to place Neosporin on this without relief endorsing increasingly larger hand size, sausage digits and noticed red streaking up his arm. He had been started on Bactrim without improvement in the ED yesterday. Hand surgery saw patient in the ED status post I&D with patient reported minimal drainage. Continued antibiotics. Patient is also endorsed dizziness and off-balance sensation over the past 3 days. States worse with different eye movements. Feels unbalanced walking. Ordered meclizine. CT in ED without acute infarct. VITAL SIGNS: Date/Time Temp Pulse Resp BP SpO2 O2 Device O2 Flow Rate (L/min) 09/07/24 1530 98.6 (37) 67 13 109/91 Abnormal 91 Nasal cannula 2 09/07/24 1500 -- 71 18 118/82 93 Nasal cannula 2 09/07/24 1455 -- -- 15 -- -- -- -- 09/07/24 1450 -- -- 17 -- -- -- -- 09/07/24 1445 -- 72 16 113/99 Abnormal 96 Nasal cannula 2 09/07/24 1430 98.9 (37.2) 63 11 Abnormal 119/73 95 Nasal cannula 4 09/07/24 1121 98.1 (36.7) 62 16 117/72 94 None (Room air) -- 09/07/24 0730 -- 64 16 116/80 94 Nasal cannula 2 09/07/24 0710 -- -- 18 -- -- -- -- 09/07/24 0709 -- 74 18 117/75 94 None (Room air) -- 09/07/24 0205 -- -- 18 -- -- -- -- 09/07/24 00:19:30 98.4 (36.9) 75 16 144/83 Abnormal 94 -- -- 09/06/24 2320 -- -- -- -- -- None (Room air) -- 09/06/242247 -- -- 16 -- -- None (Room air) -- 09/06/242233 98.4 (36.9) 74 16 138/87 98 None (Room air) -- 09/06/242227 -- -- 16 -- -- -- -- 09/06/242029 -- -- 16 -- -- -- -- 09/06/242028 -- 78 16 154/76 Abnormal 98 None (Room air) -- 09/06/24 192 -- -- 16 -- -- -- -- 09/06/24 190 -- -- 16 -- -- -- -- 09/06/24 1751 -- -- -- -- 94 -- -- 09/06/24 1742 98.2 (36.8) 82 15 150/77 Abnormal 95 None (Room air) -- LABS: (Abnormal / Relevant): Latest Reference Range & Units 09/06/24 19:52 09/07/24 05:55 09/07/24 13:55 Sodium 135 - 145 mmol/L 137 Potassium 3.5 - 5.1 mmol/L 3.7 Chloride 98 - 108 mmol/L 104 Bicarbonate 21 - 32 mmol/L 27 Anion Gap 10 - 20 mmol/L 10 Glucose 65 - 99 mg/dL 122 (H) BUN 8 - 25 mg/dL 10 Creatinine 0.80 - 1.30 mg/dL 0.84 eGFR >=60 mL/min/1.73 m2 96 BUN/Creatinine Ratio 10.0 - 20.0 11.9 Calcium 8.4 - 10.2 mg/dL 8.6 Cholesterol 100 - 199 mg/dL 90 (L) Triglycerides 30 - 150 mg/dL 64 HDL 40 - 59 mg/dL 40 LDL Calculated 10 - 130 mg/dL 37 CHOL/HDL RATIO ratio 2.3 WBC 4.50 - 11.00 K/mcL 13.07 (H) RBCs 4.50 - 5.90 M/mcL 4.22 (L) Hemoglobin 13.5 - 17.5 g/dL 13.1 (L) Hematocrit 41.0 - 53.0 % 39.1 (L) MCV 80.0 - 100.0 fL 92.7 MCH 26.0 - 34.0 pg 31.0 MCHC 31.0 - 37.0 g/dL 33.5 RDW 11.6 - 14.8 % 14.5 Platelets 150 - 400 K/mcL 203 MPV 9.4 - 12.4 fL 10.4 Nucleated RBC % 0.0 Nucleated RBC Abs 0.00 - 0.00 K/mcL 0.00 Hemoglobin A1C 4.2 - 5.6 % 5.6 Estimated Average Glucose 74 - 114 mg/dL 114 Wound Aerobic And Anaerobic Culture Order: [id number] Collected 09/06/2024 19:52 Status: Preliminary result Test Result Released: No Specimen Information: Finger, Right, Thumb; Abscess 0 Result Notes Culture Light Growth Streptococcus pyogenes (Group A) Abnormal Gram Stain Result No Organisms Seen Few WBC Many RBC IMAGING: (Abnormal / Relevant): Mr hand Circumferential soft tissue swelling/edema and skin thickening around the thumb consistent with cellulitis. There is soft tissue ulceration/defect along the volar aspect of the thumb near the proximal phalanx. There is tenosynovitis of the flexor tendon of the thumb without tendon tear. Edema in the thenar musculature noted. No pathologic joint effusion in the thumb. There is a nonspecific foreign body in the soft tissues superficial to the thumb flexor tendon measuring 13 x 7 x 9 mm as seen on sagittal T1 image 17. No convincing evidence of osteomyelitis or drainable abscess. There is also tenosynovitis of the flexor tendons of the other partially visualized digits of the hand. ASSESSMENT / PLAN: 09/06 Right Hand Cellulitis: with concern for flexor tenosynovitis in setting of pain with passive extension, ascending lymphangitis. 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 In ED: WBC 19.29 CRP 194, x-ray right hand without acute findings. S/p I&D by hand surgery in ED. Twice daily warm soapy soaks. Continue Vancomycin. Transitioned zosyn to Rocephin on admit. Wound and Bcx pending. Hand surgery following Vertiginous syndrome: With associated headache. Reported 3 days of off-balance sensation, dizziness worse with movement. In ED: CTA head and neck without acute infarct, 69 proximal left ICA 60% proximal left ICA stenosis. Prn meclizine ordered. IVF bolus ordered. Elevated Troponin: Trop 23->21, ECG NSR witn non specific T wave changes. Denied chest pain on admission CAD: S/p CABG in 2021. Continued home statin. Held ASA HTN: Per hx, Continued home CCB Tobacco Use: Smokes 1PPD, declined nicotine patch. Cessation encouraged Code status: Full DVT Prophylaxis: scds 09/07 Right Hand Cellulitis: with concern for flexor tenosynovitis in setting of pain with passive extension, ascending lymphangitis. 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 In ED: WBC 19.29 CRP 194, x-ray right hand without acute findings. S/p I&D by hand surgery in ED. Twice daily warm soapy soaks. Continue Vancomycin. Transitioned zosyn to Rocephin on admit. Wound and Bcx admit NGTD Hand surgery plan OR 09/07/24 Preoperative evaluation: Parrish Revised Cardiac Index Risk Factors: Coronary artery disease . At home, patient able to complete > 4 METS as evidenced by ability to climb two flights of stairs without CP or dyspnea. Chronic medical conditions that increase perioperative risk not captured with RCRI include: age greater than 65 and cocaine abuse . On physical exam, patient does not demonstrate any evidence of clinically significant cardiac murmur, ACS or congestive heart failure. Most recent cardiac testing: Admit EKG NSR. After chart review and discussion with patient, qualifies for Intermediate Risk (2 RCRI with good functional status). No active CP complaints and good functional status, further cardiac testing will not reduce patients risk. . Further cardiac testing will not reduce patients risk and okay to proceed without further testing. Final decision to take patient to OR left to risk/benefit decision making of surgical team. Vertigo: With associated headache. Reported 3 days of off-balance sensation, dizziness worse with movement. In ED: CTA head and neck without acute infarct, 69 proximal left ICA 60% proximal left ICA stenosis. Prn meclizine ordered. Vestibular PT Elevated Troponin: Trop 23->21, ECG NSR witn non specific T wave changes. Denied chest pain on admission CAD: S/p CABG in 2021. Continued home statin. Recommend continuing ASA through perioperative period. HTN: Per hx, Continued home CCB Tobacco Use: Smokes 1PPD, declined nicotine patch. Cessation encouraged Substance use: Admit utox with Cocaine and opiate, advised cessation as able Code status: Full DVT Prophylaxis: scds Procedure: Incision and drainage of right thumb flexor tenosynovitis - 71854 MEDS / ORDERS: Current Scheduled Medications Collapse Hide (From admission, onward) Start Ordered Stop 09/07/24 1130 aspirin EC tablet 81 mg 81 mg, Oral, Daily References: [facility] Medication Information 09/07/24 1035 -- 09/07/24 0900 atorvastatin (LIPITOR) tablet 40 mg 40 mg, Oral, Daily References: [facility]-Comp Medication Information HMG-CoA Reductase Inihibitor Drug Interaction Guideline 09/06/242131 -- 09/07/24 09 NIFEdipine 24 hr tablet 30 mg 30 mg, Oral, Daily References: [facility]-Comp Medication Information 09/06/242131 -- 09/07/24 06 vancomycin (VANCOCIN) 1500 mg in dextrose 5 % 300 mL 1,500 mg, Intravenous, 200 mL/hr, Every 24 hours References: [facility]-Comp Medication Information Question: Indication: Answer: Skin/Soft Tissue Infection 09/07/242 -- 09/06/242199 sodium chloride (PF) (NS) flush 5 mL 5 mL, Intravenous, Every 8 hours scheduled References: [facility] Medication Information And Linked Group Details 09/06/242022 -- 09/06/242199 gabapentin (NEURONTIN) capsule 800 mg 800 mg, Oral, Every 8 hours scheduled References: [facility] Medication Information 09/06/242131 -- 09/06/242199 cefTRIAXone (ROCEPHIN) IVPB 2 g (premix) 2,000 mg, Intravenous, 100 mL/hr, Every 24 hours References: [facility]-Comp Medication Information Question Answer Comment Indication: Other (specify) Indication: Skin/soft tissue infection 09/06/242038 -- 09/06/24 2100 senna-docusate (SENNA-S) 8.6-50 mg per tablet 1 tablet 1 tablet, Oral, 2 times daily References: [facility] IP Medication Information 09/06/242022 -- Dilaudid iv q 3 h prn x 1 09/06, x 2 09/07 DISPO: tbd [facility] 09-07-2024 Miscellaneous Notes Images from the original note were not included. Central [facility] Utilization Review Notes HISTORY OF PRESENT ILLNESS: Maryse Mak is a 69 y.o. male with a history of CAD, COPD, HTN who presented to the [facility] for right had cellulitis, ortho evaluated and had concern for flexor tenosynovitis. S/p Vanc and zosyn and patient transferred to [facility] 09/06/2024 for hand surgery evaluation. Trop 23-21, WBC 19.29, CRP 194, UDS + for cocaine and opiates. CTA H/n without acute infarct. Patient seen evaluated room 95. Patient is a 67-year-old male who presented to the ED for evaluation of right hand cellulitis. Patient was changed from outlying facility secondary to this. Patient reports start about 5 days ago when he noticed a burn to his hand after working on his car. He did attempt to place Neosporin on this without relief endorsing increasingly larger hand size, sausage digits and noticed red streaking up his arm. He had been started on Bactrim without improvement in the ED yesterday. Hand surgery saw patient in the ED status post I&D with patient reported minimal drainage. Continued antibiotics. Patient is also endorsed dizziness and off-balance sensation over the past 3 days. States worse with different eye movements. Feels unbalanced walking. Ordered meclizine. CT in ED without acute infarct. VITAL SIGNS: Date/Time Temp Pulse Resp BP SpO2 O2 Device O2 Flow Rate (L/min) 09/07/24 1530 98.6 (37) 67 13 109/91 Abnormal 91 Nasal cannula 2 09/07/24 1500 -- 71 18 118/82 93 Nasal cannula 2 09/07/24 1455 -- -- 15 -- -- -- -- 09/07/24 1450 -- -- 17 -- -- -- -- 09/07/24 1445 -- 72 16 113/99 Abnormal 96 Nasal cannula 2 09/07/24 1430 98.9 (37.2) 63 11 Abnormal 119/73 95 Nasal cannula 4 09/07/24 1121 98.1 (36.7) 62 16 117/72 94 None (Room air) -- 09/07/24 0730 -- 64 16 116/80 94 Nasal cannula 2 09/07/24 0710 -- -- 18 -- -- -- -- 09/07/24 0709 -- 74 18 117/75 94 None (Room air) -- 09/07/24 0205 -- -- 18 -- -- -- -- 09/07/24 00:19:30 98.4 (36.9) 75 16 144/83 Abnormal 94 -- -- 04/23/25 2320 -- -- -- -- -- None (Room air) -- 09/06/242247 -- -- 16 -- -- None (Room air) -- 09/06/242233 98.4 (36.9) 74 16 138/87 98 None (Room air) -- 09/06/242227 -- -- 16 -- -- -- -- 09/06/242029 -- -- 16 -- -- -- -- 09/06/242028 -- 78 16 154/76 Abnormal 98 None (Room air) -- 09/06/24 192 -- -- 16 -- -- -- -- 09/06/24 190 -- -- 16 -- -- -- -- 09/06/24 175 -- -- -- -- 94 -- -- 09/06/24 1742 98.2 (36.8) 82 15 150/77 Abnormal 95 None (Room air) -- LABS: (Abnormal / Relevant): Latest Reference Range & Units 09/06/24 19:52 09/07/24 05:55 09/07/24 13:55 Sodium 135 - 145 mmol/L 137 Potassium 3.5 - 5.1 mmol/L 3.7 Chloride 98 - 108 mmol/L 104 Bicarbonate 21 - 32 mmol/L 27 Anion Gap 10 - 20 mmol/L 10 Glucose 65 - 99 mg/dL 122 (H) BUN 8 - 25 mg/dL 10 Creatinine 0.80 - 1.30 mg/dL 0.84 eGFR >=60 mL/min/1.73 m2 96 BUN/Creatinine Ratio 10.0 - 20.0 11.9 Calcium 8.4 - 10.2 mg/dL 8.6 Cholesterol 100 - 199 mg/dL 90 (L) Triglycerides 30 - 150 mg/dL 64 HDL 40 - 59 mg/dL 40 LDL Calculated 10 - 130 mg/dL 37 CHOL/HDL RATIO ratio 2.3 WBC 4.50 - 11.00 K/mcL 13.07 (H) RBCs 4.50 - 5.90 M/mcL 4.22 (L) Hemoglobin 13.5 - 17.5 g/dL 13.1 (L) Hematocrit 41.0 - 53.0 % 39.1 (L) MCV 80.0 - 100.0 fL 92.7 MCH 26.0 - 34.0 pg 31.0 MCHC 31.0 - 37.0 g/dL 33.5 RDW 11.6 - 14.8 % 14.5 Platelets 150 - 400 K/mcL 203 MPV 9.4 - 12.4 fL 10.4 Nucleated RBC % 0.0 Nucleated RBC Abs 0.00 - 0.00 K/mcL 0.00 Hemoglobin A1C 4.2 - 5.6 % 5.6 Estimated Average Glucose 74 - 114 mg/dL 114 Wound Aerobic And Anaerobic Culture Order: [id number] Collected 09/06/2024 19:52 Status: Preliminary result Test Result Released: No Specimen Information: Finger, Right, Thumb; Abscess 0 Result Notes Culture Light Growth Streptococcus pyogenes (Group A) Abnormal Gram Stain Result No Organisms Seen Few WBC Many RBC IMAGING: (Abnormal / Relevant): Mr hand Circumferential soft tissue swelling/edema and skin thickening around the thumb consistent with cellulitis. There is soft tissue ulceration/defect along the volar aspect of the thumb near the proximal phalanx. There is tenosynovitis of the flexor tendon of the thumb without tendon tear. Edema in the thenar musculature noted. No pathologic joint effusion in the thumb. There is a nonspecific foreign body in the soft tissues superficial to the thumb flexor tendon measuring 13 x 7 x 9 mm as seen on sagittal T1 image 17. No convincing evidence of osteomyelitis or drainable abscess. There is also tenosynovitis of the flexor tendons of the other partially visualized digits of the hand. ASSESSMENT / PLAN: 09/06 Right Hand Cellulitis: with concern for flexor tenosynovitis in setting of pain with passive extension, ascending lymphangitis. 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 In ED: WBC 19.29 CRP 194, x-ray right hand without acute findings. S/p I&D by hand surgery in ED. Twice daily warm soapy soaks. Continue Vancomycin. Transitioned zosyn to Rocephin on admit. Wound and Bcx pending. Hand surgery following Vertiginous syndrome: With associated headache. Reported 3 days of off-balance sensation, dizziness worse with movement. In ED: CTA head and neck without acute infarct, 69 proximal left ICA 60% proximal left ICA stenosis. Prn meclizine ordered. IVF bolus ordered. Elevated Troponin: Trop 23->21, ECG NSR witn non specific T wave changes. Denied chest pain on admission CAD: S/p CABG in 2021. Continued home statin. Held ASA HTN: Per hx, Continued home CCB Tobacco Use: Smokes 1PPD, declined nicotine patch. Cessation encouraged Code status: Full DVT Prophylaxis: scds 09/07 Right Hand Cellulitis: with concern for flexor tenosynovitis in setting of pain with passive extension, ascending lymphangitis. 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 In ED: WBC 19.29 CRP 194, x-ray right hand without acute findings. S/p I&D by hand surgery in ED. Twice daily warm soapy soaks. Continue Vancomycin. Transitioned zosyn to Rocephin on admit. Wound and Bcx admit NGTD Hand surgery plan OR 09/07/24 Preoperative evaluation: Parrish Revised Cardiac Index Risk Factors: Coronary artery disease . At home, patient able to complete > 4 METS as evidenced by ability to climb two flights of stairs without CP or dyspnea. Chronic medical conditions that increase perioperative risk not captured with RCRI include: age greater than 65 and cocaine abuse . On physical exam, patient does not demonstrate any evidence of clinically significant cardiac murmur, ACS or congestive heart failure. Most recent cardiac testing: Admit EKG NSR. After chart review and discussion with patient, qualifies for Intermediate Risk (2 RCRI with good functional status). No active CP complaints and good functional status, further cardiac testing will not reduce patients risk. . Further cardiac testing will not reduce patients risk and okay to proceed without further testing. Final decision to take patient to OR left to risk/benefit decision making of surgical team. Vertigo: With associated headache. Reported 3 days of off-balance sensation, dizziness worse with movement. In ED: CTA head and neck without acute infarct, 69 proximal left ICA 60% proximal left ICA stenosis. Prn meclizine ordered. Vestibular PT Elevated Troponin: Trop 23->21, ECG NSR witn non specific T wave changes. Denied chest pain on admission CAD: S/p CABG in 2021. Continued home statin. Recommend continuing ASA through perioperative period. HTN: Per hx, Continued home CCB Tobacco Use: Smokes 1PPD, declined nicotine patch. Cessation encouraged Substance use: Admit utox with Cocaine and opiate, advised cessation as able Code status: Full DVT Prophylaxis: scds Procedure: Incision and drainage of right thumb flexor tenosynovitis - 26818 MEDS / ORDERS: Current Scheduled Medications Collapse Hide (From admission, onward) Start Ordered Stop 09/07/24 1130 aspirin EC tablet 81 mg 81 mg, Oral, Daily References: [facility]-Comp Medication Information 09/07/24 1035 -- 09/07/24 0900 atorvastatin (LIPITOR) tablet 40 mg 40 mg, Oral, Daily References: [facility]-Comp Medication Information HMG-CoA Reductase Inihibitor Drug Interaction Guideline 09/06/242131 -- 09/07/24 0900 NIFEdipine 24 hr tablet 30 mg 30 mg, Oral, Daily References: [facility]-Comp Medication Information 09/06/242131 -- 09/07/24 0600 vancomycin (VANCOCIN) 1500 mg in dextrose 5 % 300 mL 1,500 mg, Intravenous, 200 mL/hr, Every 24 hours References: [facility]-Comp Medication Information Question: Indication: Answer: Skin/Soft Tissue Infection 09/07/242 -- 09/06/24 2200 sodium chloride (PF) (NS) flush 5 mL 5 mL, Intravenous, Every 8 hours scheduled References: [facility]-Comp Medication Information And Linked Group Details 09/06/242022 -- 09/06/242199 gabapentin (NEURONTIN) capsule 800 mg 800 mg, Oral, Every 8 hours scheduled References: [facility]-Comp Medication Information 09/06/242131 -- 09/06/240 cefTRIAXone (ROCEPHIN) IVPB 2 g (premix) 2,000 mg, Intravenous, 100 mL/hr, Every 24 hours References: [facility]-Comp Medication Information Question Answer Comment Indication: Other (specify) Indication: Skin/soft tissue infection 09/06/242038 -- 09/06/24 2100 senna-docusate (SENNA-S) 8.6-50 mg per tablet 1 tablet 1 tablet, Oral, 2 times daily References: [facility]-Comp Medication Information 09/06/242022 -- Dilaudid iv q 3 h prn x 1 09/06, x 2 09/07 DISPO: tbd No change from prior charted assessment, patient in stable condition for transport. Brief Post Operative Note Patient Name: Maryse Mak : 1955 (69 y.o.) Date of Service: 09/07/2024 CSN: [id number] Procedure(s): IRRIGATION AND DEBRIDEMENT OF RIGHT THUMB AND FLEXOR TENDON SHEATH Pre-Operative Diagnoses: * right thumb infection Post-Operative Diagnoses: * Same as Pre-Op Diagnosis Surgeons and Role: * Aristeo Beavers MD - Primary Anesthesiologist: Nacho Maki MD Fruit Stuffer: Mary Lou Strong RN; Barbara Cabrera RN Scrub Person: Ludin Urena ST Operative findings: Flexor tenosynovitis right thumb Intra and immediate post-operative complications: none Type of anesthesia used: General Estimated blood loss: 0 mL Estimated urine output: Specimen(s): ID Type Source Tests Collected by Time Destination 1 : RIGHT THUMB SYNOVIAL FLUID TENDON SHEATH Swab Finger, Right, Thumb SURGICAL SITE AEROBIC AND ANAEROBIC CULTURE Aristeo Beavers MD 09/07/2024 1355 Implant(s): * No implants in log * Drain(s): Open Drain 09/07/24 1 Right Hand (Active) Wound(s): Wound 09/07/24 1 Thumb Anterior;Right (Active) Wound Closure Approximated;Sutures 09/06/24 0009 Aristeo Beavers MD 09/07/2024 2:24 PM PHYSICAL THERAPY VISIT VARIANCE NOTE Attempted to see patient at this time, but unable secondary to: Patient Unavailable (comment) (Per RN, patent unavailable due to soaking hand when PT attempted in AM. Patient currently in OR.). Will follow up as appropriate. OPERATIVE REPORT Maryse Mak Preoperative Diagnosis: Right thumb flexor tenosynovitis Postoperative Diagnosis: Right thumb flexor tenosynovitis Procedure: Incision and drainage of right thumb flexor tenosynovitis - 49843 Surgeon:Aristeo Beavers MD Cemetery Keeper: Surgeons and Role: * Aristeo Beavers MD - Primary Anesthesiologist: No responsible provider has been recorded for the case. OR Staff: Fruit Stuffer: Mary Lou Strong RN Scrub Person: Ludin Urena ST Implants: * No implants in log * EBL: See anesthesia note Complications: None Disposition: To PACU, stable Indications: Maryse Mak is a 69 y.o. male presenting with the aforementioned injuries/findings. The procedure is indicated to best alleviate infection and obtain further cultures. The patient is awake and alert. After thorough discussion of the risks, benefits, expected outcomes, and alternatives to surgical intervention, the patient agreed to proceed with surgical treatment. Specific risks discussed included, but were not limited to: superficial or deep infection, wound healing complications, DVT/PE, significant bleeding requiring transfusion, damage to named anatomic structures in the immediate area including named neurovascular structures, infection, need for further surgeries, finger stiffness, osteomyelitis, and general risks of anesthesia. The patient/family voiced understanding and written as well as verbal consent was obtained by myself prior to the procedure. Procedure Note: The patient and operative site were confirmed and marked by me in the preoperative holding area. The patient was brought back to the OR and placed on the OR table. After successful induction of anesthesia by anesthesia staff, the patient was positioned and all bony prominences were padded appropriately. The surgical field was then provisionally cleansed and then prepped and draped in the usual sterile fashion. At this time a time-out was performed, with the correct patient, site, and procedure identified. The universal time out as well as sign your site protocols were followed. Preoperative antibiotics were verified as administered. I first made a transverse incision over the A1 zia at the level of the MPJ flexion crease, and attention to hemostasis was paid using electrocautery. I then identified, dissected and protected both neurovascular bundles. Dissection was continued down to the level of the A1 zia and I divided the A1 zia completely under direct visualization. I was careful to avoid injury to the oblique zia distally. Masses or nodules were not noted. I did, however, note some seropurulent fluid coming from the flexor tendon sheath, which was consistent with flexor tenosynovitis. This tendon sheath fluid was also sent for culture. More distally, at the IP flexion crease another transverse incision was made and connected to the pre-existing longitudinal incision that was made in the emergency department in order to expose the A3 zia. Dissection was carried deeper to the tendon sheath. Great care was taken to avoid injury to radial neurovascular bundle. I was then able to identified the A3 zia clearly. I then used a 20 gauge angiocath in the flexor tendon sheath near the A1 zia to copiously irrigate the flexor tendon sheath in a proximal to distal direction and confirmed fluid efflux from the tendon sheath distally. I irrigated until the fluid efflux distally was clear. A christina drain was placed connecting the two incisions and a single nylon suture was placed at each end to secure the drain. The incision(s) was/were then irrigated using copious sterile saline and then closed with 4-0 nylon. A digital block with 20cc of 0.5% plain marcaine was then injected and the finger was sterilely cleansed and dressed. The patient was then subsequently transferred to to PACU in a stable condition. All sponge and needle counts were correct at the end of the case. I was present and participated in all aspects of the procedure. Prognosis: The patient will be kept WBAT on the ipsilateral extremity. We will continue antibiotics and continue BID warm soapy soaks. We will follow cultures and adjust antibiotics as needed. There is a risk of continued infection and we will follow the patient to assess for recurrence or worsening. Aristeo Beavers MD S: Patient reports significant pain to his right thumb and palm. Endorses numbness to the thumb. Denies fever or chills. O: RUE: SILT to all fingers. R/U/M nerves all grossly intact. Able to wiggle all fingers. significant swelling over circumferential thumb and thenar eminance with TTP. Packing removed, no purulence noted from wound. Erythema to circumferential thumb, palm and dorsal hand. Lymphangitic streaking appreciated to mid-volar forearm. Associated Problem(s): Cellulitis of right hand 69 y.o. male presents with cellulitis of the right hand in the setting of burn wounds sustained 5 days [employer] - D/w Dr. Beavers - S/p bedside I&D of the right thumb proximal phalanx 09/06 - Cultures pend- will follow - MRI obtained 09/07/24 - Will plan for formal I&D today in OR- discussed with patient - Keep NPO - Continue IV antibiotics - Continue BID warm soapy soaks with packing changes - Multimodal pain control, elevation - Please contact hand surgery [facility]CH[facility] consulting technical director with questions/concerns, will continue to follow I performed a substantive part of the MDM during the patient's E/M visit. I personally interviewed the patient. I personally examined the patient. I discussed the patient with BUILDINGS AND GROUNDS SUPERVISOR/PA. I personally made or approved the documented management plan and acknowledge its risk of complications. My( EKG/X-ray/US/CT) interpretation - Management / test interpretation discussed with - Patient is a 69-year-old male who states that he burned his right hand on Wednesday he thinks. It may have been Wednesday; he is not sure, but he thinks it was Wednesday. He said he has been putting Neosporin on it and wrapping it, and now he has developed increased pain, swelling, and there was a red streak extending up his arm today. He was seen at [facility], seen by Ortho. They thought he might have tenosynovitis, and he was given Zosyn and vancomycin and sent here. PHYSICAL EXAM Shows that he does have what appears to be burn on his right thumb on the palmar side area. There are also 2 scabs on the dorsal surface of his right hand. There is erythema. He seems to have fairly good range of motion of his fingers passively, except for his thumb, which he has trouble bending at the IP joint. He does seem to have cellulitis with ascending lymphangitic streak up to at least the elbow area. documented in this encounter [facility] 09-07-2024 Progress note Formatting of t his note might be different from the original. No change from prior charted assessment, patient in stable condition for transport. [facility] 09-07-2024 Procedure note Brief Post Operative Note Patient Name: Maryse Mak : 1955 (69 y.o.) Date of Service: 09/07/2024 CSN: [id number] Procedure(s): IRRIGATION AND DEBRIDEMENT OF RIGHT THUMB AND FLEXOR TENDON SHEATH Pre-Operative Diagnoses: * right thumb infection Post-Operative Diagnoses: * Same as Pre-Op Diagnosis Surgeons and Role: * Aristeo Beavers MD - Primary Anesthesiologist: Nacho Maki MD Fruit Stuffer: Mary Lou Strong RN; Barbara Cabrera RN Scrub Person: Ludin Urena ST Operative findings: Flexor tenosynovitis right thumb Intra and immediate post-operative complications: none Type of anesthesia used: General Estimated blood loss: 0 mL Estimated urine output: Specimen(s): ID Type Source Tests Collected by Time Destination 1 : RIGHT THUMB SYNOVIAL FLUID TENDON SHEATH Swab Finger, Right, Thumb SURGICAL SITE AEROBIC AND ANAEROBIC CULTURE Aristeo Beavers MD 09/07/2024 1355 Implant(s): * No implants in log * Drain(s): Open Drain 09/07/24 1 Right Hand (Active) Wound(s): Wound 09/07/24 1 Thumb Anterior;Right (Active) Wound Closure Approximated;Sutures 09/06/24 0009 Aristeo Beavers MD 09/07/2024 2:24 PM [facility] 09-07-2024 Note Formatting of this n ote might be different from the original. PHYSICAL THERAPY VISIT VARIANCE NOTE Attempted to see patient at this time, but unable secondary to: Patient Unavailable (comment) (Per RN, patent unavailable due to soaking hand when PT attempted in AM. Patient currently in OR.). Will follow up as appropriate. [facility] 09-07-2024 Procedure note OPERATIVE REPORT Maryse Mak Preoperative Diagnosis: Right thumb flexor tenosynovitis Postoperative Diagnosis: Right thumb flexor tenosynovitis Procedure: Incision and drainage of right thumb flexor tenosynovitis - [id number] Surgeon:Aristeo Beavers MD Cemetery Keeper: Surgeons and Role: * Aristeo Beavers MD - Primary Anesthesiologist: No responsible provider has been recorded for the case. OR Staff: Fruit Stuffer: Mary Lou Strong RN Scrub Person: Ludin Urena ST Implants: * No implants in log * EBL: See anesthesia note Complications: None Disposition: To PACU, stable Indications: Maryse Mak is a 69 y.o. male presenting with the aforementioned injuries/findings. The procedure is indicated to best alleviate infection and obtain further cultures. The patient is awake and alert. After thorough discussion of the risks, benefits, expected outcomes, and alternatives to surgical intervention, the patient agreed to proceed with surgical treatment. Specific risks discussed included, but were not limited to: superficial or deep infection, wound healing complications, DVT/PE, significant bleeding requiring transfusion, damage to named anatomic structures in the immediate area including named neurovascular structures, infection, need for further surgeries, finger stiffness, osteomyelitis, and general risks of anesthesia. The patient/family voiced understanding and written as well as verbal consent was obtained by myself prior to the procedure. Procedure Note: The patient and operative site were confirmed and marked by me in the preoperative holding area. The patient was brought back to the OR and placed on the OR table. After successful induction of anesthesia by anesthesia staff, the patient was positioned and all bony prominences were padded appropriately. The surgical field was then provisionally cleansed and then prepped and draped in the usual sterile fashion. At this time a time-out was performed, with the correct patient, site, and procedure identified. The universal time out as well as sign your site protocols were followed. Preoperative antibiotics were verified as administered. I first made a transverse incision over the A1 zia at the level of the MPJ flexion crease, and attention to hemostasis was paid using electrocautery. I then identified, dissected and protected both neurovascular bundles. Dissection was continued down to the level of the A1 zia and I divided the A1 zia completely under direct visualization. I was careful to avoid injury to the oblique zia distally. Masses or nodules were not noted. I did, however, note some seropurulent fluid coming from the flexor tendon sheath, which was consistent with flexor tenosynovitis. This tendon sheath fluid was also sent for culture. More distally, at the IP flexion crease another transverse incision was made and connected to the pre-existing longitudinal incision that was made in the emergency department in order to expose the A3 zia. Dissection was carried deeper to the tendon sheath. Great care was taken to avoid injury to radial neurovascular bundle. I was then able to identified the A3 zia clearly. I then used a 20 gauge angiocath in the flexor tendon sheath near the A1 zia to copiously irrigate the flexor tendon sheath in a proximal to distal direction and confirmed fluid efflux from the tendon sheath distally. I irrigated until the fluid efflux distally was clear. A christina drain was placed connecting the two incisions and a single nylon suture was placed at each end to secure the drain. The incision(s) was/were then irrigated using copious sterile saline and then closed with 4-0 nylon. A digital block with 20cc of 0.5% plain marcaine was then injected and the finger was sterilely cleansed and dressed. The patient was then subsequently transferred to to PACU in a stable condition. All sponge and needle counts were correct at the end of the case. I was present and participated in all aspects of the procedure. Prognosis: The patient will be kept WBAT on the ipsilateral extremity. We will continue antibiotics and continue BID warm soapy soaks. We will follow cultures and adjust antibiotics as needed. There is a risk of continued infection and we will follow the patient to assess for recurrence or worsening. Aristeo Beavers MD [facility] 09-07-2024 Attending History and physical note INTERVAL HISTORY AND PHYSICAL Patient Name: Maryse Mak Admit Date: [id number] MR #: [id number] : 1955 The H&P has been reviewed and the patient has been examined. I concur with the findings of the H&P. There are no significant changes. It is appropriate to proceed with the planned procedure. Aristeo Beavers MD 09/07/2024 1:12 PM Source Note - David Lee PA-C - 09/06/2024 7:48 PM EDT [facility] History and Physical Note 09/06/24 Maryse Mak 1955 [id number] Assessment/Plan: Maryse Mak is a 69 y.o. male with a history of CAD, HTN who presented to the [facility] for right had cellulitis, ortho evaluated and had concern for flexor tenosynovitis. S/p Vanc and zosyn and patient transferred to [facility] 09/06/2024 for hand surgery evaluation. Trop 23-21, WBC 19.29, CRP 194, UDS + for cocaine and opiates. CTA H/n without acute infarct. Right Hand Cellulitis: with concern for flexor tenosynovitis in setting of pain with passive extension, ascending lymphangitis. 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 In ED: WBC 19.29 CRP 194, x-ray right hand without acute findings. S/p I&D by hand surgery in ED. Twice daily warm soapy soaks. Continue Vancomycin. Transitioned zosyn to Rocephin on admit. Wound and Bcx pending. Hand surgery following Vertiginous syndrome: With associated headache. Reported 3 days of off-balance sensation, dizziness worse with movement. In ED: CTA head and neck without acute infarct, 69 proximal left ICA 60% proximal left ICA stenosis. Prn meclizine ordered. IVF bolus ordered. Elevated Troponin: Trop 23->21, ECG NSR witn non specific T wave changes. Denied chest pain on admission CAD: S/p CABG in 2021. Continued home statin. Held ASA HTN: Per hx, Continued home CCB Tobacco Use: Smokes 1PPD, declined nicotine patch. Cessation encouraged Code status: Full DVT Prophylaxis: scds Medication Reconciliation: Reviewed using Patient interview, dispense report Current living situation: Home Expected Disposition: Same Estimated discharge date: TBD Medically Ready for Discharge: no as above Admitted with these risk variables:None. Please see assessment and plan for further details. Chief Complaint: Right hand Cellulitis History of Present Illness: Maryse Mak is a 69 y.o. male with a history of CAD, COPD, HTN who presented to the [facility] for right had cellulitis, ortho evaluated and had concern for flexor tenosynovitis. S/p Vanc and zosyn and patient transferred to [facility] 09/06/2024 for hand surgery evaluation. Trop 23-21, WBC 19.29, CRP 194, UDS + for cocaine and opiates. CTA H/n without acute infarct. Patient seen evaluated room 95. Patient is a 67-year-old male who presented to the ED for evaluation of right hand cellulitis. Patient was changed from outlying facility secondary to this. Patient reports start about 5 days ago when he noticed a burn to his hand after working on his car. He did attempt to place Neosporin on this without relief endorsing increasingly larger hand size, sausage digits and noticed red streaking up his arm. He had been started on Bactrim without improvement in the ED yesterday. Hand surgery saw patient in the ED status post I&D with patient reported minimal drainage. Continued antibiotics. Patient is also endorsed dizziness and off-balance sensation over the past 3 days. States worse with different eye movements. Feels unbalanced walking. Ordered meclizine. CT in ED without acute infarct. Today I personally did a review of prior medical records and have summarized my findings in my assessment and plan as noted above. Today I also reviewed recent labs, diagnostics, vitals including pulse ox, and sales enablement consultant/other provider recommendations. ECG seen reviewed from ED personally interpreted as normal sinus with nonspecific T wave changes, continue vancomycin high risk medication will require close monitoring titration. Ordered CBC BMP. Reviewed ED note from 09/05/2024 ROS: 10 systems were reviewed and negative, except as noted above. Past Medical, Surgical, Social, Family History: Past Medical History: Diagnosis Date Alcohol abuse 06/19/2019 Arthritis Chronic back pain Chronic obstructive pulmonary disease (HCC) 02/07/2024 Clotting disorder DVT Cocaine abuse (HCC) 10/28/2017 Coronary artery disease moderate stenosis of LAD and mild plaque in other vessels Homeless 06/19/2019 Hyperlipidemia Hypertension Tobacco dependence 04/29/2020 Past Surgical History: Procedure Laterality Date BACK SURGERY BRING BACK OPEN HEART N/A 08/19/2022 Procedure: STERNAL WOUND EXPLORATION; Surgeon: Wood Eng MD; Location: Main OR; Service: Cardiothoracic CABG W/ RADIAL ARTERY HARVEST N/A 11/20/2021 Procedure: CORONARY ARTERY BYPASS GRAFT X2 AND LEFT AND RIGHT INTERNAL MAMMARY ARTERY GRAFTS; Surgeon: Wood Eng MD; Location: Main OR; Service: Cardiothoracic CARDIAC CATHETERIZATION N/A 11/07/2021 Procedure: Coronary Angiogram; Surgeon: Minoo Grimm MD; Location: [facility] [employer] [facility]; Service: Cardiovascular CV IR INTERVENTIONAL RADIOLOGY N/A 09/01/2022 Procedure: VR Aspiration Sternal seroma; Surgeon: Florencio Chambers MD; Location: IR LAB; Service: Interventional Radiology HC LEFT HEART CATH N/A 11/07/2021 Procedure: Left Heart Cath; Surgeon: Minoo Grimm MD; Location: [facility] [employer] [employer]; Service: Cardiovascular left arm leg sx right and left blood clots Bilateral 2009 in [facility] SHOULDER SURGERY STERNAL WIRING N/A 08/06/2022 Procedure: STERNAL INTERNAL FIXATION WITH PLATING AND SCREWS; Surgeon: Wood Eng MD; Location: Main OR; Service: Cardiothoracic Social History [1] Family History Problem Relation Age of Onset Heart disease Father Heart attack Father Heart attack Maternal Uncle Heart disease Maternal Uncle Home Medications: Outpatient Medications as of 09/06/2024 Medication Sig aspirin 81 MG EC tablet Take 1 (one) tablet (81 mg total) by mouth daily . gabapentin (NEURONTIN) 800 MG tablet Take 1 (one) tablet (800 mg total) by mouth 3 (three) times a day . HYDROcodone-acetaminophen (NORCO) 7.5-325 mg per tablet Take 1 (one) tablet by mouth every 6 (six) hours as needed for pain . NIFEdipine (ADALAT CC) 30 MG 24 hr tablet Take 1 (one) tablet (30 mg total) by mouth daily . sulfamethoxazole-trimethoprim (BACTRIM DS,SEPTRA DS) 800-160 mg per tablet Take 1 (one) tablet by mouth 2 (two) times a day for 10 days . traMADol (ULTRAM) 50 mg tablet Take 1 (one) tablet (50 mg total) by mouth every 6 (six) hours as needed . Physical Exam: BP (!) 150/77 (BP Location: Left arm, Patient Position: Lying) Pulse 82 Temp 98.2 F (36.8 C) (Oral) Resp 16 Ht 6' Wt 93 kg (205 lb) SpO2 94% BMI 27.80 kg/m General: NAD Eyes: EOMI, sclera clear ENT: neck supple Cardiovascular: Regular rate, no murmur Respiratory: Clear to auscultation, symmetric air entry Gastrointestinal: Soft, non tender, non distended, positive bowel sounds Genitourinary: no CVA tenderness Musculoskeletal: Right hand swelling, pain to palpation, pain with passive extension unable to make fist secondary to pain Skin: warm, dry, no LE edema Neuro: Alert, oriented x3, no focal motor deficits Psych: Mood appropriate Labs, Imaging, and Studies reviewed: Results from last 7 days Lab Units 09/06/24 1337 09/06/24 1322 09/05/24 0734 WBC K/mcL -- 19.29* 11.98* HGB g/dL -- 15.5 14.9 HEMOGLOBIN BG g/dL 15.7 -- -- HEMATOCRIT, CALCULATED % 48.2 -- -- HCT % -- 46.6 46.0 PLT K/mcL -- 233 226 Results from last 7 days Lab Units 09/06/24 1337 09/06/24 1322 SODIUM mmol/L 138 136 POTASSIUM mmol/L 3.9 4.0 CHLORIDE mmol/L 102 99 BICARB mmol/L -- 25 BUN mg/dL -- 13 CREATININE mg/dL -- 1.14 EGFR mL/min/1.73 m2 -- 70 GLUCOSE mg/dL 80 84 CALCIUM mg/dL -- 9.5 Results from last 7 days Lab Units 09/06/24 1322 ALT U/L 14 AST U/L 16 ALK PHOS U/L 97 BILIRUBIN TOTAL mg/dL 1.2 Results from last 7 days Lab Units 09/06/24 1322 INR 1.1 [1] Social History Socioeconomic History Marital status: Single Tobacco Use Smoking status: Every Day Current packs/day: 0.50 Average packs/day: 0.5 packs/day for 45.0 years (22.5 ttl pk-yrs) Types: Cigarettes Passive exposure: Past Smokeless tobacco: Never Vaping Use Vaping status: Never Used Substance and Sexual Activity Alcohol use: Not Currently Drug use: Not Currently Types: Cocaine Sexual activity: Not Currently control/protection: None Social Drivers of Health Transportation Needs: No Transportation Needs (10/02/2022) OASIS A1250: Transportation Lack of Transportation (Medical): No Lack of Transportation (Non-Medical): No Patient Unable or Declines to Respond: No Cosigned by Denilson Esquivel DO at 09/06/2024 9:12 PM EDT [employer] Work Phone: 09-07-2024 History and physical note INTERVAL HISTORY AND PHYSICAL Patient Name: Maryse Mak Admit Date: [id number] MR #: [id number] : 1955 The H&P has been reviewed and the patient has been examined. I concur with the findings of the H&P. There are no significant changes. It is appropriate to proceed with the planned procedure. Aristeo Beavers MD 09/07/2024 1:12 PM Source Note - David Lee PA-C - 09/06/2024 7:48 PM EDT [facility] History and Physical Note 09/06/24 Maryse Mak 1955 [id number] Assessment/Plan: Maryse Mak is a 69 y.o. male with a history of CAD, HTN who presented to the [facility] for right had cellulitis, ortho evaluated and had concern for flexor tenosynovitis. S/p Vanc and zosyn and patient transferred to [facility] 09/06/2024 for hand surgery evaluation. Trop 23-21, WBC 19.29, CRP 194, UDS + for cocaine and opiates. CTA H/n without acute infarct. Right Hand Cellulitis: with concern for flexor tenosynovitis in setting of pain with passive extension, ascending lymphangitis. 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 In ED: WBC 19.29 CRP 194, x-ray right hand without acute findings. S/p I&D by hand surgery in ED. Twice daily warm soapy soaks. Continue Vancomycin. Transitioned zosyn to Rocephin on admit. Wound and Bcx pending. Hand surgery following Vertiginous syndrome: With associated headache. Reported 3 days of off-balance sensation, dizziness worse with movement. In ED: CTA head and neck without acute infarct, 69 proximal left ICA 60% proximal left ICA stenosis. Prn meclizine ordered. IVF bolus ordered. Elevated Troponin: Trop 23->21, ECG NSR witn non specific T wave changes. Denied chest pain on admission CAD: S/p CABG in 2021. Continued home statin. Held ASA HTN: Per hx, Continued home CCB Tobacco Use: Smokes 1PPD, declined nicotine patch. Cessation encouraged Code status: Full DVT Prophylaxis: scds Medication Reconciliation: Reviewed using Patient interview, dispense report Current living situation: Home Expected Disposition: Same Estimated discharge date: TBD Medically Ready for Discharge: no as above Admitted with these risk variables:None. Please see assessment and plan for further details. Chief Complaint: Right hand Cellulitis History of Present Illness: Maryse Mak is a 69 y.o. male with a history of CAD, COPD, HTN who presented to the [facility] ED for right had cellulitis, ortho evaluated and had concern for flexor tenosynovitis. S/p Vanc and zosyn and patient transferred to [facility] 09/06/2024 for hand surgery evaluation. Trop 23-21, WBC 19.29, CRP 194, UDS + for cocaine and opiates. CTA H/n without acute infarct. Patient seen evaluated room 95. Patient is a 67-year-old male who presented to the ED for evaluation of right hand cellulitis. Patient was changed from outlying facility secondary to this. Patient reports start about 5 days ago when he noticed a burn to his hand after working on his car. He did attempt to place Neosporin on this without relief endorsing increasingly larger hand size, sausage digits and noticed red streaking up his arm. He had been started on Bactrim without improvement in the ED yesterday. Hand surgery saw patient in the ED status post I&D with patient reported minimal drainage. Continued antibiotics. Patient is also endorsed dizziness and off-balance sensation over the past 3 days. States worse with different eye movements. Feels unbalanced walking. Ordered meclizine. CT in ED without acute infarct. Today I personally did a review of prior medical records and have summarized my findings in my assessment and plan as noted above. Today I also reviewed recent labs, diagnostics, vitals including pulse ox, and sales enablement consultant/other provider recommendations. ECG seen reviewed from ED personally interpreted as normal sinus with nonspecific T wave changes, continue vancomycin high risk medication will require close monitoring titration. Ordered CBC BMP. Reviewed ED note from 09/05/2024 ROS: 10 systems were reviewed and negative, except as noted above. Past Medical, Surgical, Social, Family History: Past Medical History: Diagnosis Date Alcohol abuse 06/19/2019 Arthritis Chronic back pain Chronic obstructive pulmonary disease (HCC) 02/07/2024 Clotting disorder DVT Cocaine abuse (HCC) 10/28/2017 Coronary artery disease moderate stenosis of LAD and mild plaque in other vessels Homeless 06/19/2019 Hyperlipidemia Hypertension Tobacco dependence 04/29/2020 Past Surgical History: Procedure Laterality Date BACK SURGERY BRING BACK OPEN HEART N/A 08/19/2022 Procedure: STERNAL WOUND EXPLORATION; Surgeon: Wood Eng MD; Location: Main OR; Service: Cardiothoracic CABG W/ RADIAL ARTERY HARVEST N/A 11/20/2021 Procedure: CORONARY ARTERY BYPASS GRAFT X2 AND LEFT AND RIGHT INTERNAL MAMMARY ARTERY GRAFTS; Surgeon: Wood Eng MD; Location: Main OR; Service: Cardiothoracic CARDIAC CATHETERIZATION N/A 11/07/2021 Procedure: Coronary Angiogram; Surgeon: Minoo Grimm MD; Location: [employer]; Service: Cardiovascular CV IR INTERVENTIONAL RADIOLOGY N/A 09/01/2022 Procedure: VR Aspiration Sternal seroma; Surgeon: Florencio Chambers MD; Location: IR LAB; Service: Interventional Radiology HC LEFT HEART CATH N/A 11/07/2021 Procedure: Left Heart Cath; Surgeon: Minoo Grimm MD; Location: [employer]; Service: Cardiovascular left arm leg sx right and left blood clots Bilateral 2009 in [facility] SHOULDER SURGERY STERNAL WIRING N/A 08/06/2022 Procedure: STERNAL INTERNAL FIXATION WITH PLATING AND SCREWS; Surgeon: Wood Eng MD; Location: Main OR; Service: Cardiothoracic Social History [1] Family History Problem Relation Age of Onset Heart disease Father Heart attack Father Heart attack Maternal Uncle Heart disease Maternal Uncle Home Medications: Outpatient Medications as of 09/06/2024 Medication Sig aspirin 81 MG EC tablet Take 1 (one) tablet (81 mg total) by mouth daily . gabapentin (NEURONTIN) 800 MG tablet Take 1 (one) tablet (800 mg total) by mouth 3 (three) times a day . HYDROcodone-acetaminophen (NORCO) 7.5-325 mg per tablet Take 1 (one) tablet by mouth every 6 (six) hours as needed for pain . NIFEdipine (ADALAT CC) 30 MG 24 hr tablet Take 1 (one) tablet (30 mg total) by mouth daily . sulfamethoxazole-trimethoprim (BACTRIM DS,SEPTRA DS) 800-160 mg per tablet Take 1 (one) tablet by mouth 2 (two) times a day for 10 days . traMADol (ULTRAM) 50 mg tablet Take 1 (one) tablet (50 mg total) by mouth every 6 (six) hours as needed . Physical Exam: BP (!) 150/77 (BP Location: Left arm, Patient Position: Lying) Pulse 82 Temp 98.2 F (36.8 C) (Oral) Resp 16 Ht 6' Wt 93 kg (205 lb) SpO2 94% BMI 27.80 kg/m General: NAD Eyes: EOMI, sclera clear ENT: neck supple Cardiovascular: Regular rate, no murmur Respiratory: Clear to auscultation, symmetric air entry Gastrointestinal: Soft, non tender, non distended, positive bowel sounds Genitourinary: no CVA tenderness Musculoskeletal: Right hand swelling, pain to palpation, pain with passive extension unable to make fist secondary to pain Skin: warm, dry, no LE edema Neuro: Alert, oriented x3, no focal motor deficits Psych: Mood appropriate Labs, Imaging, and Studies reviewed: Results from last 7 days Lab Units 09/06/24 1337 09/06/24 1322 09/05/24 0734 WBC K/mcL -- 19.29* 11.98* HGB g/dL -- 15.5 14.9 HEMOGLOBIN BG g/dL 15.7 -- -- HEMATOCRIT, CALCULATED % 48.2 -- -- HCT % -- 46.6 46.0 PLT K/mcL -- 233 226 Results from last 7 days Lab Units 09/06/24 1337 09/06/24 1322 SODIUM mmol/L 138 136 POTASSIUM mmol/L 3.9 4.0 CHLORIDE mmol/L 102 99 BICARB mmol/L -- 25 BUN mg/dL -- 13 CREATININE mg/dL -- 1.14 EGFR mL/min/1.73 m2 -- 70 GLUCOSE mg/dL 80 84 CALCIUM mg/dL -- 9.5 Results from last 7 days Lab Units 09/06/24 1322 ALT U/L 14 AST U/L 16 ALK PHOS U/L 97 BILIRUBIN TOTAL mg/dL 1.2 Results from last 7 days Lab Units 09/06/24 1322 INR 1.1 [1] Social History Socioeconomic History Marital status: Single Tobacco Use Smoking status: Every Day Current packs/day: 0.50 Average packs/day: 0.5 packs/day for 45.0 years (22.5 ttl pk-yrs) Types: Cigarettes Passive exposure: Past Smokeless tobacco: Never Vaping Use Vaping status: Never Used Substance and Sexual Activity Alcohol use: Not Currently Drug use: Not Currently Types: Cocaine Sexual activity: Not Currently control/protection: None Social Drivers of Health Transportation Needs: No Transportation Needs (10/02/2022) OASIS A1250: Transportation Lack of Transportation (Medical): No Lack of Transportation (Non-Medical): No Patient Unable or Declines to Respond: No Cosigned by Denilson Esquivel DO at 09/06/2024 9:12 PM EDT [facility] History and Physical Note 09/06/24 Maryse Mak 1955 [id number] Assessment/Plan: Maryse Mak is a 69 y.o. male with a history of CAD, HTN who presented to the [facility] ED for right had cellulitis, ortho evaluated and had concern for flexor tenosynovitis. S/p Vanc and zosyn and patient transferred to [facility] 09/06/2024 for hand surgery evaluation. Trop 23-21, WBC 19.29, CRP 194, UDS + for cocaine and opiates. CTA H/n without acute infarct. Right Hand Cellulitis: with concern for flexor tenosynovitis in setting of pain with passive extension, ascending lymphangitis. 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 In ED: WBC 19.29 CRP 194, x-ray right hand without acute findings. S/p I&D by hand surgery in ED. Twice daily warm soapy soaks. Continue Vancomycin. Transitioned zosyn to Rocephin on admit. Wound and Bcx pending. Hand surgery following Vertiginous syndrome: With associated headache. Reported 3 days of off-balance sensation, dizziness worse with movement. In ED: CTA head and neck without acute infarct, 69 proximal left ICA 60% proximal left ICA stenosis. Prn meclizine ordered. IVF bolus ordered. Elevated Troponin: Trop 23->21, ECG NSR witn non specific T wave changes. Denied chest pain on admission CAD: S/p CABG in 2021. Continued home statin. Held ASA HTN: Per hx, Continued home CCB Tobacco Use: Smokes 1PPD, declined nicotine patch. Cessation encouraged Code status: Full DVT Prophylaxis: scds Medication Reconciliation: Reviewed using Patient interview, dispense report Current living situation: Home Expected Disposition: Same Estimated discharge date: TBD Medically Ready for Discharge: no as above Admitted with these risk variables:None. Please see assessment and plan for further details. Chief Complaint: Right hand Cellulitis History of Present Illness: Maryse Mak is a 69 y.o. male with a history of CAD, COPD, HTN who presented to the [facility] for right had cellulitis, ortho evaluated and had concern for flexor tenosynovitis. S/p Vanc and zosyn and patient transferred to [facility] 09/06/2024 for hand surgery evaluation. Trop 23-21, WBC 19.29, CRP 194, UDS + for cocaine and opiates. CTA H/n without acute infarct. Patient seen evaluated room 95. Patient is a 67-year-old male who presented to the ED for evaluation of right hand cellulitis. Patient was changed from outlying facility secondary to this. Patient reports start about 5 days ago when he noticed a burn to his hand after working on his car. He did attempt to place Neosporin on this without relief endorsing increasingly larger hand size, sausage digits and noticed red streaking up his arm. He had been started on Bactrim without improvement in the ED yesterday. Hand surgery saw patient in the ED status post I&D with patient reported minimal drainage. Continued antibiotics. Patient is also endorsed dizziness and off-balance sensation over the past 3 days. States worse with different eye movements. Feels unbalanced walking. Ordered meclizine. CT in ED without acute infarct. Today I personally did a review of prior medical records and have summarized my findings in my assessment and plan as noted above. Today I also reviewed recent labs, diagnostics, vitals including pulse ox, and sales enablement consultant/other provider recommendations. ECG seen reviewed from ED personally interpreted as normal sinus with nonspecific T wave changes, continue vancomycin high risk medication will require close monitoring titration. Ordered CBC BMP. Reviewed ED note from 09/05/2024 ROS: 10 systems were reviewed and negative, except as noted above. Past Medical, Surgical, Social, Family History: Past Medical History: Diagnosis Date Alcohol abuse 06/19/2019 Arthritis Chronic back pain Chronic obstructive pulmonary disease (HCC) 02/07/2024 Clotting disorder DVT Cocaine abuse (HCC) 10/28/2017 Coronary artery disease moderate stenosis of LAD and mild plaque in other vessels Homeless 06/19/2019 Hyperlipidemia Hypertension Tobacco dependence 04/29/2020 Past Surgical History: Procedure Laterality Date BACK SURGERY BRING BACK OPEN HEART N/A 08/19/2022 Procedure: STERNAL WOUND EXPLORATION; Surgeon: Wood Eng MD; Location: Main OR; Service: Cardiothoracic CABG W/ RADIAL ARTERY HARVEST N/A 11/20/2021 Procedure: CORONARY ARTERY BYPASS GRAFT X2 AND LEFT AND RIGHT INTERNAL MAMMARY ARTERY GRAFTS; Surgeon: Wood Eng MD; Location: Main OR; Service: Cardiothoracic CARDIAC CATHETERIZATION N/A 11/07/2021 Procedure: Coronary Angiogram; Surgeon: Minoo Grimm MD; Location: [facility]; Service: Cardiovascular CV IR INTERVENTIONAL RADIOLOGY N/A 09/01/2022 Procedure: VR Aspiration Sternal seroma; Surgeon: Florencio Chambers MD; Location: IR LAB; Service: Interventional Radiology HC LEFT HEART CATH N/A 11/07/2021 Procedure: Left Heart Cath; Surgeon: Minoo Grimm MD; Location: [facility]; Service: Cardiovascular left arm leg sx right and left blood clots Bilateral 2009 in [facility] SHOULDER SURGERY STERNAL WIRING N/A 08/06/2022 Procedure: STERNAL INTERNAL FIXATION WITH PLATING AND SCREWS; Surgeon: Wood Eng MD; Location: Main OR; Service: Cardiothoracic Social History [1] Family History Problem Relation Age of Onset Heart disease Father Heart attack Father Heart attack Maternal Uncle Heart disease Maternal Uncle Home Medications: Outpatient Medications as of 09/06/2024 Medication Sig aspirin 81 MG EC tablet Take 1 (one) tablet (81 mg total) by mouth daily . gabapentin (NEURONTIN) 800 MG tablet Take 1 (one) tablet (800 mg total) by mouth 3 (three) times a day . HYDROcodone-acetaminophen (NORCO) 7.5-325 mg per tablet Take 1 (one) tablet by mouth every 6 (six) hours as needed for pain . NIFEdipine (ADALAT CC) 30 MG 24 hr tablet Take 1 (one) tablet (30 mg total) by mouth daily . sulfamethoxazole-trimethoprim (BACTRIM DS,SEPTRA DS) 800-160 mg per tablet Take 1 (one) tablet by mouth 2 (two) times a day for 10 days . traMADol (ULTRAM) 50 mg tablet Take 1 (one) tablet (50 mg total) by mouth every 6 (six) hours as needed . Physical Exam: BP (!) 150/77 (BP Location: Left arm, Patient Position: Lying) Pulse 82 Temp 98.2 F (36.8 C) (Oral) Resp 16 Ht 6' Wt 93 kg (205 lb) SpO2 94% BMI 27.80 kg/m General: NAD Eyes: EOMI, sclera clear ENT: neck supple Cardiovascular: Regular rate, no murmur Respiratory: Clear to auscultation, symmetric air entry Gastrointestinal: Soft, non tender, non distended, positive bowel sounds Genitourinary: no CVA tenderness Musculoskeletal: Right hand swelling, pain to palpation, pain with passive extension unable to make fist secondary to pain Skin: warm, dry, no LE edema Neuro: Alert, oriented x3, no focal motor deficits Psych: Mood appropriate Labs, Imaging, and Studies reviewed: Results from last 7 days Lab Units 09/06/24 1337 09/06/24 1322 09/05/24 0734 WBC K/mcL -- 19.29* 11.98* HGB g/dL -- 15.5 14.9 HEMOGLOBIN BG g/dL 15.7 -- -- HEMATOCRIT, CALCULATED % 48.2 -- -- HCT % -- 46.6 46.0 PLT K/mcL -- 233 226 Results from last 7 days Lab Units 09/06/24 1337 09/06/24 1322 SODIUM mmol/L 138 136 POTASSIUM mmol/L 3.9 4.0 CHLORIDE mmol/L 102 99 BICARB mmol/L -- 25 BUN mg/dL -- 13 CREATININE mg/dL -- 1.14 EGFR mL/min/1.73 m2 -- 70 GLUCOSE mg/dL 80 84 CALCIUM mg/dL -- 9.5 Results from last 7 days Lab Units 09/06/24 1322 ALT U/L 14 AST U/L 16 ALK PHOS U/L 97 BILIRUBIN TOTAL mg/dL 1.2 Results from last 7 days Lab Units 09/06/24 1322 INR 1.1 [1] Social History Socioeconomic History Marital status: Single Tobacco Use Smoking status: Every Day Current packs/day: 0.50 Average packs/day: 0.5 packs/day for 45.0 years (22.5 ttl pk-yrs) Types: Cigarettes Passive exposure: Past Smokeless tobacco: Never Vaping Use Vaping status: Never Used Substance and Sexual Activity Alcohol use: Not Currently Drug use: Not Currently Types: Cocaine Sexual activity: Not Currently control/protection: None Social Drivers of Health Transportation Needs: No Transportation Needs (10/02/2022) OASIS A1250: Transportation Lack of Transportation (Medical): No Lack of Transportation (Non-Medical): No Patient Unable or Declines to Respond: No Cosigned by Denilson Esquivel DO at 09/06/2024 9:12 PM EDT Associated attestation - Denilson Esquivel DO - 09/06/2024 9:12 PM EDT I have personally performed a [id number] diagnostic evaluation of this patient on 09/06/2024. After discussing the case with David Lee PA-C, I performed the substantive part of the medical decision making for this encounter and approved the RUCHI's plan of care with the following additions: Patient is a 69-year-old male who presented to [facility] with cellulitis of the right hand in the setting of burn wounds sustained 5 days prior to admission. XR right hand nonacute. S/p I&D of the right thumb proximal phalanx in ED by hand surgery, cultures pending. Noted to have leukocytosis of 19.29 with elevated inflammatory markers, CRP 194. Blood Cx collected. Initiated on vancomycin and Rocephin. He also endorsed vertiginous symptoms with headache. Symptoms are worse with movement. CTA head/neck nonacute, noted to have 69% left ICA stenosis, 60% left ICA stenosis. Will check A1c and lipid panel. PT consulted for vestibular therapy. Physical Exam (Focused elements based on presentation): BP (!) 154/76 Pulse 78 Temp 98.2 F (36.8 C) (Oral) Resp 16 Ht 6' Wt 93 kg (205 lb) SpO2 98% BMI 27.80 kg/m General: NAD Eyes: EOMI, sclera clear ENT: neck supple Cardiovascular: Regular rate, no murmur Respiratory: Clear to auscultation, symmetric air entry Gastrointestinal: Soft, non tender, non distended, positive bowel sounds Genitourinary: no CVA tenderness Musculoskeletal: Right hand swelling, pain to palpation, pain with passive extension unable to make fist secondary to pain Skin: warm, dry, no LE edema Neuro: Alert, oriented x3, no focal motor deficits Psych: Mood appropriate documented in this encounter [facility] 09-07-2024 Evaluation note S: Patient reports significant pain to his right thumb and palm. Endorses numbness to the thumb. Denies fever or chills. O: RUE: SILT to all fingers. R/U/M nerves all grossly intact. Able to wiggle all fingers. significant swelling over circumferential thumb and thenar eminance with TTP. Packing removed, no purulence noted from wound. Erythema to circumferential thumb, palm and dorsal hand. Lymphangitic streaking appreciated to mid-volar forearm. [facility] 09-07-2024 Note [facility] Inpatient [facility]ong Note 09/07/2024 Maryse Mak 1955 [id number] Assessment/Plan: Maryse Mak is a 69 y.o. male with a history of CAD, HTN who presented to the [facility] for right had cellulitis, ortho evaluated and had concern for flexor tenosynovitis. S/p Vanc and zosyn and patient transferred to [facility] 09/06/2024 for hand surgery evaluation. Trop 23-21, WBC 19.29, CRP 194, UDS + for cocaine and opiates. CTA H/n without acute infarct. Right Hand Cellulitis: with concern for flexor tenosynovitis in setting of pain with passive extension, ascending lymphangitis. 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 In ED: WBC 19.29 CRP 194, x-ray right hand without acute findings. S/p I&D by hand surgery in ED. Twice daily warm soapy soaks. Continue Vancomycin. Transitioned zosyn to Rocephin on admit. Wound and Bcx admit NGTD Hand surgery plan OR 09/07/24 Preoperative evaluation: [facility] Revised Cardiac Index Risk Factors: Coronary artery disease . At home, patient able to complete > 4 METS as evidenced by ability to climb two flights of stairs without CP or dyspnea. Chronic medical conditions that increase perioperative risk not captured with RCRI include: age greater than 65 and cocaine abuse . On physical exam, patient does not demonstrate any evidence of clinically significant cardiac murmur, ACS or congestive heart failure. Most recent cardiac testing: Admit EKG NSR. After chart review and discussion with patient, qualifies for Intermediate Risk (2 RCRI with good functional status). No active CP complaints and good functional status, further cardiac testing will not reduce patients risk. . Further cardiac testing will not reduce patients risk and okay to proceed without further testing. Final decision to take patient to OR left to risk/benefit decision making of surgical team. Vertigo: With associated headache. Reported 3 days of off-balance sensation, dizziness worse with movement. In ED: CTA head and neck without acute infarct, 69 proximal left ICA 60% proximal left ICA stenosis. Prn meclizine ordered. Vestibular PT Elevated Troponin: Trop 23->21, ECG NSR witn non specific T wave changes. Denied chest pain on admission CAD: S/p CABG in 2021. Continued home statin. Recommend continuing ASA through perioperative period. HTN: Per hx, Continued home CCB Tobacco Use: Smokes 1PPD, declined nicotine patch. Cessation encouraged Substance use: Admit utox with Cocaine and opiate, advised cessation as able Code status: Full DVT Prophylaxis: scds Medication Reconciliation: Reviewed using Patient interview, dispense report Current living situation: Home Expected Disposition: Same Estimated discharge date: TBD Medically Ready for Discharge: no as above Subjective: Patient new to me. I reviewed prior medical records and history in EMR. Labs / Testing / Ophthalmology Surgical Technician notes reviewed : BMP, CBC DW Ortho hand RUCHI - ok for ASA Pt's last surgery CABG. Denies complications with anesthesia. Pt Denies chest pain, palpitations or LE edema. Has chronic SOB which is at baseline, reports this is since his CABG Pt is ABLE to climb 2 flights of stairs. Denies hx CHF, insulin dependent DM, CKD (Cr > 2), CVA. PT WEIGHT Weight 09/06/2024 5:42 PM 205 lb 09/06/2024 12:55 PM 205 lb 09/05/2024 7:18 AM 205 lb 07/14/2024 3:15 AM 200 lb 06/27/2024 9:44 PM 210 lb 05/12/2024 8:10 AM 214 lb 04/29/2024 4:47 PM 220 lb 02/14/2024 9:43 AM 220 lb Intake/Output Summary (Last 24 hours) at 09/07/2024 0851 Last data filed at 09/07/2024 0440 Gross per 24 hour Intake 500 ml Output 1050 ml Net -550 ml Physical Exam: BP 116/80 (BP Location: Left arm, Patient Position: Lying) Pulse 64 Temp 98.4 degrees F (36.9 degrees C) (Oral) Resp 16 Ht 6' Wt 93 kg (205 lb) SpO2 94% BMI 27.80 kg/m General: NAD Eyes: anicteric ENT: neck supple Cardiovascular: Regular rate, no murmur Respiratory: Clear to auscultation, symmetric air entry Gastrointestinal: Soft, non tender, non distended, positive bowel sounds Genitourinary: no CVA tenderness Musculoskeletal: Right hand swelling, pain to palpation, pain with passive extension unable to make fist secondary to pain Skin: warm, dry, no LE edema Neuro: Answering questions appropriately, KNIGHT x 4 Psych: calm Current Medications: atorvastatin 40 mg Oral Daily cefTRIAXone (ROCEPHIN) IVPB 2,000 mg Intravenous Q24H gabapentin 800 mg Oral Q8H TONEY NIFEdipine 30 mg Oral Daily senna-docusate 1 tablet Oral BID sodium chloride (PF) 5 mL Intravenous Q8H TONEY vancomycin 1,500 mg Intravenous Q24H acetaminophen, HYDROmorphone, meclizine, melatonin, nalOXone AND Notify physician AND naloxone, ondansetron OR ondansetron, oxyCODONE, Saline lock IV AND sodium chloride (PF) AND sodium chloride (PF) AND sodium chloride 0.9 % lactated Ringers 75 mL/hr (09/06/242029) Labs, Imaging and Studies revie (more content not included)... [facility] 09-07-2024 Note DAILY PROGRESS NOTE Patient Name: Maryse Mak MR #: [id number] Assessment/Plan: * Cellulitis of right hand Assessment & Plan 69 y.o. male presents with cellulitis of the right hand in the setting of burn wounds sustained 5 days [employer] - D/w Dr. Beavers - S/p bedside I&D of the right thumb proximal phalanx 09/06 - Cultures pend- will follow - MRI obtained 09/07/24 - Will plan for formal I&D today in OR- discussed with patient - Keep NPO - Continue IV antibiotics - Continue BID warm soapy soaks with packing changes - Multimodal pain control, elevation - Please contact hand surgery RUCHI consulting technical director with questions/concerns, will continue to follow S: Patient reports significant pain to his right thumb and palm. Endorses numbness to the thumb. Denies fever or chills. O: RUE: SILT to all fingers. R/U/M nerves all grossly intact. Able to wiggle all fingers. significant swelling over circumferential thumb and thenar eminance with TTP. Packing removed, no purulence noted from wound. Erythema to circumferential thumb, palm and dorsal hand. Lymphangitic streaking appreciated to mid-volar forearm. BP 116/80 (BP Location: Left arm, Patient Position: Lying) Pulse 64 Temp 98.4 degrees F (36.9 degrees C) (Oral) Resp 16 Ht 6' Wt 93 kg (205 lb) SpO2 94% BMI 27.80 kg/m Avril Pollard, MSN AGACNP-[facility] AUTHENTICATED BY AMRIT POLLARD, ON 09/07/2024 09:22:54 [facility] 09-06-2024 Evaluation + Plan note Associated Problem(s): Cellulitis of right hand 69 y.o. male presents with cellulitis of the right hand in the setting of burn wounds sustained 5 days [employer]HIC[employer] - D/w Dr. Beavers - S/p bedside I&D of the right thumb proximal phalanx 09/06 - Cultures pend- will follow - MRI obtained 09/07/24 - Will plan for formal I&D today in OR- discussed with patient - Keep NPO - Continue IV antibiotics - Continue BID warm soapy soaks with packing changes - Multimodal pain control, elevation - Please contact hand surgery RUCHI consulting technical director with questions/concerns, will continue to follow [facility] 09-06-2024 Note Incision and drainag e Date/Time: 09/06/2024 8:08 PM Performed by: Sebas Howard PA-C Authorized by: Sebas Howard PA-C Verbal consent: obtained Consent given by: patient Relevant documents: Relevent documents present and verified. Medical history, medications, allergies and physical assessment reviewed/completed Test results: test results available and properly labeled Relevant imaging studies available and labeled: Yes Patient identity confirmed: provided demographic data and verified patient name and Type: abscess Body area: upper extremity Location details: right thumb Anesthesia: digital block Anesthesia: Local Anesthetic: lidocaine 1% without epinephrine and bupivacaine 0.5% without epinephrine Anesthetic total: 10 mL Patient sedated: no Skin preparation: Betadine Scalpel size: 15 Incision type: single straight Incision depth: dermal Complexity: simple Drainage: bloody Drainage amount: moderate Wound treatment: wound left open Packing material: 05/20 in gauze Patient tolerance: patient tolerated the procedure well with no immediate complications AUTHENTICATED BY SEBAS HOWARD, ON 09/06/2024 20:09:55 [facility] 09-06-2024 Procedure note Associated Ord er(s): Incision and drainage Post-Procedure Diagnose(s): Cellulitis of right hand Incision and drainage Date/Time: 09/06/2024 8:08 PM Performed by: Sebas Howard PA-C Authorized by: Sebas Howard PA-C Verbal consent: obtained Consent given by: patient Relevant documents: Relevent documents present and verified. Medical history, medications, allergies and physical assessment reviewed/completed Test results: test results available and properly labeled Relevant imaging studies available and labeled: Yes Patient identity confirmed: provided demographic data and verified patient name and Type: abscess Body area: upper extremity Location details: right thumb Anesthesia: digital block Anesthesia: Local Anesthetic: lidocaine 1% without epinephrine and bupivacaine 0.5% without epinephrine Anesthetic total: 10 mL Patient sedated: no Skin preparation: Betadine Scalpel size: 15 Incision type: single straight Incision depth: dermal Complexity: simple Drainage: bloody Drainage amount: moderate Wound treatment: wound left open Packing material: 1/4 in gauze Patient tolerance: patient tolerated the procedure well with no immediate complications [employer] Work Phone: 09-06-2024 Procedure note Associated Ord er(s): Incision and drainage Post-Procedure Diagnose(s): Cellulitis of right hand Incision and drainage Date/Time: 09/06/2024 8:08 PM Performed by: Sebas Howard PA-C Authorized by: Sebas Howard PA-C Verbal consent: obtained Consent given by: patient Relevant documents: Relevent documents present and verified. Medical history, medications, allergies and physical assessment reviewed/completed Test results: test results available and properly labeled Relevant imaging studies available and labeled: Yes Patient identity confirmed: provided demographic data and verified patient name and Type: abscess Body area: upper extremity Location details: right thumb Anesthesia: digital block Anesthesia: Local Anesthetic: lidocaine 1% without epinephrine and bupivacaine 0.5% without epinephrine Anesthetic total: 10 mL Patient sedated: no Skin preparation: Betadine Scalpel size: 15 Incision type: single straight Incision depth: dermal Complexity: simple Drainage: bloody Drainage amount: moderate Wound treatment: wound left open Packing material: 05/20 in gauze Patient tolerance: patient tolerated the procedure well with no immediate complications documented in this encounter [facility] 09-06-2024 History and physical note [facility] History and Physical Note 09/06/24 Maryse Mak 1955 [id number] Assessment/Plan: Maryse Mak is a 69 y.o. male with a history of CAD, HTN who presented to the [facility] ED for right had cellulitis, ortho evaluated and had concern for flexor tenosynovitis. S/p Vanc and zosyn and patient transferred to [facility] 09/06/2024 for hand surgery evaluation. Trop 23-21, WBC 19.29, CRP 194, UDS + for cocaine and opiates. CTA H/n without acute infarct. Right Hand Cellulitis: with concern for flexor tenosynovitis in setting of pain with passive extension, ascending lymphangitis. 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 In ED: WBC 19.29 CRP 194, x-ray right hand without acute findings. S/p I&D by hand surgery in ED. Twice daily warm soapy soaks. Continue Vancomycin. Transitioned zosyn to Rocephin on admit. Wound and Bcx pending. Hand surgery following Vertiginous syndrome: With associated headache. Reported 3 days of off-balance sensation, dizziness worse with movement. In ED: CTA head and neck without acute infarct, 69 proximal left ICA 60% proximal left ICA stenosis. Prn meclizine ordered. IVF bolus ordered. Elevated Troponin: Trop 23->21, ECG NSR witn non specific T wave changes. Denied chest pain on admission CAD: S/p CABG in 2021. Continued home statin. Held ASA HTN: Per hx, Continued home CCB Tobacco Use: Smokes 1PPD, declined nicotine patch. Cessation encouraged Code status: Full DVT Prophylaxis: scds Medication Reconciliation: Reviewed using Patient interview, dispense report Current living situation: Home Expected Disposition: Same Estimated discharge date: TBD Medically Ready for Discharge: no as above Admitted with these risk variables:None. Please see assessment and plan for further details. Chief Complaint: Right hand Cellulitis History of Present Illness: Maryse Mak is a 69 y.o. male with a history of CAD, COPD, HTN who presented to the [facility] ED for right had cellulitis, ortho evaluated and had concern for flexor tenosynovitis. S/p Vanc and zosyn and patient transferred to [facility] 09/06/2024 for hand surgery evaluation. Trop 23-21, WBC 19.29, CRP 194, UDS + for cocaine and opiates. CTA H/n without acute infarct. Patient seen evaluated room 95. Patient is a 67-year-old male who presented to the ED for evaluation of right hand cellulitis. Patient was changed from outlying facility secondary to this. Patient reports start about 5 days ago when he noticed a burn to his hand after working on his car. He did attempt to place Neosporin on this without relief endorsing increasingly larger hand size, sausage digits and noticed red streaking up his arm. He had been started on Bactrim without improvement in the ED yesterday. Hand surgery saw patient in the ED status post I&D with patient reported minimal drainage. Continued antibiotics. Patient is also endorsed dizziness and off-balance sensation over the past 3 days. States worse with different eye movements. Feels unbalanced walking. Ordered meclizine. CT in ED without acute infarct. Today I personally did a review of prior medical records and have summarized my findings in my assessment and plan as noted above. Today I also reviewed recent labs, diagnostics, vitals including pulse ox, and sales enablement consultant/other provider recommendations. ECG seen reviewed from ED personally interpreted as normal sinus with nonspecific T wave changes, continue vancomycin high risk medication will require close monitoring titration. Ordered CBC BMP. Reviewed ED note from 09/05/2024 ROS: 10 systems were reviewed and negative, except as noted above. Past Medical, Surgical, Social, Family History: Past Medical History: Diagnosis Date Alcohol abuse 06/19/2019 Arthritis Chronic back pain Chronic obstructive pulmonary disease (HCC) 02/07/2024 Clotting disorder DVT Cocaine abuse (HCC) 10/28/2017 Coronary artery disease moderate stenosis of LAD and mild plaque in other vessels Homeless 06/19/2019 Hyperlipidemia Hypertension Tobacco dependence 04/29/2020 Past Surgical History: Procedure Laterality Date BACK SURGERY BRING BACK OPEN HEART N/A 08/19/2022 Procedure: STERNAL WOUND EXPLORATION; Surgeon: Wood Eng MD; Location: Main OR; Service: Cardiothoracic CABG W/ RADIAL ARTERY HARVEST N/A 11/20/2021 Procedure: CORONARY ARTERY BYPASS GRAFT X2 AND LEFT AND RIGHT INTERNAL MAMMARY ARTERY GRAFTS; Surgeon: Wood Eng MD; Location: Main OR; Service: Cardiothoracic CARDIAC CATHETERIZATION N/A 11/07/2021 Procedure: Coronary Angiogram; Surgeon: Minoo Grimm MD; Location: [facility] [employer]; Service: Cardiovascular CV IR INTERVENTIONAL RADIOLOGY N/A 09/01/2022 Procedure: VR Aspiration Sternal seroma; Surgeon: Florencio Chambers MD; Location: IR LAB; Service: Interventional Radiology HC LEFT HEART CATH N/A 11/07/2021 Procedure: Left Heart Cath; Surgeon: Minoo Grimm MD; Location: [facility] [employer]; Service: Cardiovascular left arm leg sx right and left blood clots Bilateral 2009 in [facility] SHOULDER SURGERY STERNAL WIRING N/A 08/06/2022 Procedure: STERNAL INTERNAL FIXATION WITH PLATING AND SCREWS; Surgeon: Wood Eng MD; Location: Main OR; Service: Cardiothoracic Social History [1] Family History Problem Relation Age of Onset Heart disease Father Heart attack Father Heart attack Maternal Uncle Heart disease Maternal Uncle Home Medications: Outpatient Medications as of 09/06/2024 Medication Sig aspirin 81 MG EC tablet Take 1 (one) tablet (81 mg total) by mouth daily . gabapentin (NEURONTIN) 800 MG tablet Take 1 (one) tablet (800 mg total) by mouth 3 (three) times a day . HYDROcodone-acetaminophen (NORCO) 7.5-325 mg per tablet Take 1 (one) tablet by mouth every 6 (six) hours as needed for pain . NIFEdipine (ADALAT CC) 30 MG 24 hr tablet Take 1 (one) tablet (30 mg total) by mouth daily . sulfamethoxazole-trimethoprim (BACTRIM DS,SEPTRA DS) 800-160 mg per tablet Take 1 (one) tablet by mouth 2 (two) times a day for 10 days . traMADol (ULTRAM) 50 mg tablet Take 1 (one) tablet (50 mg total) by mouth every 6 (six) hours as needed . Physical Exam: BP (!) 150/77 (BP Location: Left arm, Patient Position: Lying) Pulse 82 Temp 98.2 F (36.8 C) (Oral) Resp 16 Ht 6' Wt 93 kg (205 lb) SpO2 94% BMI 27.80 kg/m General: NAD Eyes: EOMI, sclera clear ENT: neck supple Cardiovascular: Regular rate, no murmur Respiratory: Clear to auscultation, symmetric air entry Gastrointestinal: Soft, non tender, non distended, positive bowel sounds Genitourinary: no CVA tenderness Musculoskeletal: Right hand swelling, pain to palpation, pain with passive extension unable to make fist secondary to pain Skin: warm, dry, no LE edema Neuro: Alert, oriented x3, no focal motor deficits Psych: Mood appropriate Labs, Imaging, and Studies reviewed: Results from last 7 days Lab Units 09/06/24 1337 09/06/24 1322 09/05/24 0734 WBC K/mcL -- 19.29* 11.98* HGB g/dL -- 15.5 14.9 HEMOGLOBIN BG g/dL 15.7 -- -- HEMATOCRIT, CALCULATED % 48.2 -- -- HCT % -- 46.6 46.0 PLT K/mcL -- 233 226 Results from last 7 days Lab Units 09/06/24 1337 09/06/24 1322 SODIUM mmol/L 138 136 POTASSIUM mmol/L 3.9 4.0 CHLORIDE mmol/L 102 99 BICARB mmol/L -- 25 BUN mg/dL -- 13 CREATININE mg/dL -- 1.14 EGFR mL/min/1.73 m2 -- 70 GLUCOSE mg/dL 80 84 CALCIUM mg/dL -- 9.5 Results from last 7 days Lab Units 09/06/24 1322 ALT U/L 14 AST U/L 16 ALK PHOS U/L 97 BILIRUBIN TOTAL mg/dL 1.2 Results from last 7 days Lab Units 09/06/24 1322 INR 1.1 [1] Social History Socioeconomic History Marital status: Single Tobacco Use Smoking status: Every Day Current packs/day: 0.50 Average packs/day: 0.5 packs/day for 45.0 years (22.5 ttl pk-yrs) Types: Cigarettes Passive exposure: Past Smokeless tobacco: Never Vaping Use Vaping status: Never Used Substance and Sexual Activity Alcohol use: Not Currently Drug use: Not Currently Types: Cocaine Sexual activity: Not Currently control/protection: None Social Drivers of Health Transportation Needs: No Transportation Needs (10/02/2022) OASIS A1250: Transportation Lack of Transportation (Medical): No Lack of Transportation (Non-Medical): No Patient Unable or Declines to Respond: No Cosigned by Denilson Esquivel DO at 09/06/2024 9:12 PM EDT Associated attestation - Denilson Esquivel DO - 09/06/2024 9:12 PM EDT I have personally performed a [id number] diagnostic evaluation of this patient on 09/06/2024. After discussing the case with David Lee PA-C, I performed the substantive part of the medical decision making for this encounter and approved the RUCHI's plan of care with the following additions: Patient is a 69-year-old male who presented to [facility] with cellulitis of the right hand in the setting of burn wounds sustained 5 days prior to admission. XR right hand nonacute. S/p I&D of the right thumb proximal phalanx in ED by hand surgery, cultures pending. Noted to have leukocytosis of 19.29 with elevated inflammatory markers, CRP 194. Blood Cx collected. Initiated on vancomycin and Rocephin. He also endorsed vertiginous symptoms with headache. Symptoms are worse with movement. CTA head/neck nonacute, noted to have 69% left ICA stenosis, 60% left ICA stenosis. Will check A1c and lipid panel. PT consulted for vestibular therapy. Physical Exam (Focused elements based on presentation): BP (!) 154/76 Pulse 78 Temp 98.2 F (36.8 C) (Oral) Resp 16 Ht 6' Wt 93 kg (205 lb) SpO2 98% BMI 27.80 kg/m General: NAD Eyes: EOMI, sclera clear ENT: neck supple Cardiovascular: Regular rate, no murmur Respiratory: Clear to auscultation, symmetric air entry Gastrointestinal: Soft, non tender, non distended, positive bowel sounds Genitourinary: no CVA tenderness Musculoskeletal: Right hand swelling, pain to palpation, pain with passive extension unable to make fist secondary to pain Skin: warm, dry, no LE edema Neuro: Alert, oriented x3, no focal motor deficits Psych: Mood appropriate [facility] Work Phone: 09-06-2024 Emergency department Note Med one to write admission orders [id number] [facility] 09-06-2024 Emergency department Note Med one to write admission orders [id number] Images from the original note were not included. ED PROVIDER NOTE [facility] NAME: Maryse Mak AGE: 69 y.o. : 1955 VISIT DATE: 09/06/2024 CSN: [id number] PCP: Rayo Jaimes MD Chief Complaint Patient presents with Hand Injury Patient is a 69-year-old male with history of alcohol abuse, arthritis, COPD, cocaine abuse, CAD, HTN who presents with a hand injury. Patient arrives as a transfer from [facility]. He states that a few days ago he was working on his car and accidentally burned his right thumb. He states that since then he has had spreading redness, pain, and swelling to his right hand. He reports he is unable to bend his right thumb and right index finger. He also states that since he burned his finger he has felt unstable while walking. Denies fall or syncope. Denies room spinning sensation. Denies chest pain, shortness of breath, nausea, vomiting, abdominal pain, headache, visual disturbance. Vital signs reviewed. Hand Injury Associated symptoms: tenderness Past Medical History: Diagnosis Date Alcohol abuse 06/19/2019 Arthritis Chronic back pain Chronic obstructive pulmonary disease (HCC) 02/07/2024 Clotting disorder DVT Cocaine abuse ([facility]) 10/28/2017 Coronary artery disease moderate stenosis of LAD and mild plaque in other vessels Homeless 06/19/2019 Hyperlipidemia Hypertension Tobacco dependence 04/29/2020 Past Surgical History: Procedure Laterality Date BACK SURGERY BRING BACK OPEN HEART N/A 08/19/2022 Procedure: STERNAL WOUND EXPLORATION; Surgeon: Wood Eng MD; Location: Main OR; Service: Cardiothoracic CABG W/ RADIAL ARTERY HARVEST N/A 11/20/2021 Procedure: CORONARY ARTERY BYPASS GRAFT X2 AND LEFT AND RIGHT INTERNAL MAMMARY ARTERY GRAFTS; Surgeon: Wood Eng MD; Location: Main OR; Service: Cardiothoracic CARDIAC CATHETERIZATION N/A 11/07/2021 Procedure: Coronary Angiogram; Surgeon: Minoo Grimm MD; Location: [employer]; Service: Cardiovascular CV IR INTERVENTIONAL RADIOLOGY N/A 09/01/2022 Procedure: VR Aspiration Sternal seroma; Surgeon: Florencio Chambers MD; Location: IR LAB; Service: Interventional Radiology HC LEFT HEART CATH N/A 11/07/2021 Procedure: Left Heart Cath; Surgeon: Minoo Grimm MD; Location: [employer]; Service: Cardiovascular left arm leg sx right and left blood clots Bilateral 2009 in [facility] SHOULDER SURGERY STERNAL WIRING N/A 08/06/2022 Procedure: STERNAL INTERNAL FIXATION WITH PLATING AND SCREWS; Surgeon: Wood Eng MD; Location: Main OR; Service: Cardiothoracic Family History Problem Relation Age of Onset Heart disease Father Heart attack Father Heart attack Maternal Uncle Heart disease Maternal Uncle Social History [1] Previous Medications Medication Sig aspirin 81 MG EC tablet Take 1 (one) tablet (81 mg total) by mouth daily . atorvastatin (LIPITOR) 40 MG tablet Take 1 (one) tablet (40 mg total) by mouth . gabapentin (NEURONTIN) 800 MG tablet Take 1 (one) tablet (800 mg total) by mouth 3 (three) times a day . HYDROcodone-acetaminophen (NORCO) 7.5-325 mg per tablet Take 1 (one) tablet by mouth every 6 (six) hours as needed for pain . NIFEdipine (ADALAT CC) 30 MG 24 hr tablet Take 1 (one) tablet (30 mg total) by mouth daily . sulfamethoxazole-trimethoprim (BACTRIM DS,SEPTRA DS) 800-160 mg per tablet Take 1 (one) tablet by mouth 2 (two) times a day for 10 days . traMADol (ULTRAM) 50 mg tablet Take 1 (one) tablet (50 mg total) by mouth every 6 (six) hours as needed . Allergies[2] Review of Systems Eyes: Negative for visual disturbance. Respiratory: Negative for shortness of breath. Cardiovascular: Negative for chest pain. Gastrointestinal: Negative for abdominal pain, nausea and vomiting. Musculoskeletal: Positive for arthralgias. Skin: Positive for wound. Neurological: Negative for syncope and headaches. Patient Vitals for the past 24 hrs: BP Temp Temp src Pulse Resp SpO2 Height Weight 09/07/24 0730 116/80 -- -- 64 16 94 % -- -- 09/07/24 0710 -- -- -- -- 18 -- -- -- 09/07/24 0709 117/75 -- -- 74 18 94 % -- -- 09/07/24 0205 -- -- -- -- 18 -- -- -- 09/07/24 0019 (!) 144/83 98.4 F (36.9 C) Oral 75 16 94 % -- -- 09/06/242247 -- -- -- -- 16 -- -- -- 09/06/244 138/87 98.4 F (36.9 C) Oral 74 16 98 % -- -- 09/06/242227 -- -- -- -- 16 -- -- -- 09/06/242029 -- -- -- -- 16 -- -- -- 09/06/242028 (!) 154/76 -- -- 78 16 98 % -- -- 09/06/24 192 -- -- -- -- 16 -- -- -- 09/06/24 190 -- -- -- -- 16 -- -- -- 09/06/24 1751 -- -- -- -- -- 94 % -- -- 09/06/24 1742 (!) 150/77 98.2 F (36.8 C) Oral 82 15 95 % 6' 93 kg (205 lb) Physical Exam Vitals and nursing note reviewed. Constitutional: General: He is not in acute distress. Appearance: Normal appearance. He is not ill-appearing. Comments: Patient is pleasant and answers questions appropriately. HENT: Head: Normocephalic and atraumatic. Nose: Nose normal. Eyes: Extraocular Movements: Extraocular movements intact. Cardiovascular: Rate and Rhythm: Normal rate and regular rhythm. Heart sounds: No friction rub. No gallop. Musculoskeletal: General: Swelling and tenderness present. No deformity. Cervical back: Normal range of motion. Comments: Patient has a burn type kenyatta to the dorsal aspect of his right thumb with surrounding erythema. Erythema extends to the dorsal aspect of his right index finger and dorsum of right hand with swelling. Patient has limited flexion of his right thumb and right index finger. Brisk capillary refill. 2+ right radial pulse. Photo captured in [employer]. Pulmonary: Effort: Pulmonary effort is normal. No respiratory distress. Breath sounds: Normal breath sounds. No stridor. No wheezing, rhonchi or rales. Comments: Patient speaks in full complete sentences on room air. Skin: General: Skin is warm and dry. Neurological: General: No focal deficit present. Mental Status: He is alert and oriented to person, place, and time. GCS: GCS eye subscore is 4. GCS verbal subscore is 5. GCS motor subscore is 6. Psychiatric: Mood and Affect: Mood normal. Laboratory & Radiographic Imaging (if done): Results for orders placed or performed during the hospital encounter of 09/06/24 Wound Aerobic And Anaerobic Culture Specimen: Finger, Right, Thumb; Abscess Result Value Ref Range Gram Stain Result No Organisms Seen Gram Stain Result Few WBC Gram Stain Result Many RBC Basic Metabolic Panel Result Value Ref Range Sodium 137 135 - 145 mmol/L Potassium 3.7 3.5 - 5.1 mmol/L Chloride 104 98 - 108 mmol/L Bicarbonate 27 21 - 32 mmol/L Anion Gap 10 10 - 20 mmol/L Glucose 122 (H) 65 - 99 mg/dL BUN 10 8 - 25 mg/dL Creatinine 0.84 0.80 - 1.30 mg/dL eGFR 96 >=60 mL/min/1.73 m2 BUN/Creatinine Ratio 11.9 10.0 - 20.0 Calcium 8.6 8.4 - 10.2 mg/dL CBC Result Value Ref Range WBC 13.07 (H) 4.50 - 11.00 K/mcL RBC 4.22 (L) 4.50 - 5.90 M/mcL Hemoglobin 13.1 (L) 13.5 - 17.5 g/dL Hematocrit 39.1 (L) 41.0 - 53.0 % MCV 92.7 80.0 - 100.0 fL MCH 31.0 26.0 - 34.0 pg MCHC 33.5 31.0 - 37.0 g/dL Platelets 203 150 - 400 K/mcL RDW - CV 14.5 11.6 - 14.8 % MPV 10.4 9.4 - 12.4 fL Nucleated RBC 0.0 % Nucleated RBC Abs 0.00 0.00 - 0.00 K/mcL Hemoglobin A1c Result Value Ref Range Hemoglobin A1C 5.6 4.2 - 5.6 % Estimated Average Glucose 114 74 - 114 mg/dL Lipid Panel Result Value Ref Range Cholesterol 90 (L) 100 - 199 mg/dL Triglycerides 64 30 - 150 mg/dL HDL 40 40 - 59 mg/dL Chol/HDL Ratio 2.3 ratio LDL Calculated 37 10 - 130 mg/dL Non HDL Cholesterol 50 mg/dL XR MR Clear Final Result No metallic foreign body is identified in either orbit. Workstation ID: [id number] MR Hand Right With And Without Contrast (Results Pending) Procedures Medical Decision Making HPI/ROS This patient is a 69 y.o. male with history of alcohol abuse, arthritis, COPD, cocaine abuse, CAD, HTN who presents with a hand injury. Patient arrives as a transfer from [facility]. He states that a few days ago he was working on his car and accidentally burned his right thumb. He states that since then he has had spreading redness, pain, and swelling to his right hand. He reports he is unable to bend his right thumb and right index finger. He also states that since he burned his finger he has felt unstable while walking. Denies fall or syncope. Denies room spinning sensation. Denies chest pain, shortness of breath, nausea, vomiting, abdominal pain, headache, visual disturbance. Medical Decision Making I saw and evaluated the patient. I have reviewed the chief complaint, triage note, past medical/surgical, family, and social history. On my evaluation, the patient appears in no acute distress. Patient speaks in full complete sentences on room air. Lungs clear to auscultation. Normal cardiac rate and rhythm. Alert & oriented x3. GCS 15. No focal deficit. Head normocephalic and atraumatic. EOM intact. Patient has a burn type kenyatta to the dorsal aspect of his right thumb with surrounding erythema. Erythema extends to the dorsal aspect of his right index finger and dorsum of right hand with swelling. Patient has limited flexion of his right thumb and right index finger. Brisk capillary refill. 2+ right radial pulse. Photo captured in epic. Patient presents as a transfer from [facility] for a right hand infection. Patient reports he accidentally burned his right thumb while working on a car and since then has had worsening erythema, edema, pain, and decreased range of motion. Xray right hand negative for fracture or gas. Patient given IV vancomycin and zosyn prior to transfer. [facility] documentation reports concern for flexor tenosynovitis. I discussed the case with the hand service RUCHI at 181 who agreed to evaluate the patient in the ED. Hand service plans to perform I&D and recommends admission to medicine. Patient also reported feeling off-balance with ambulation since the incident. No focal deficits on exam. CTA head and neck shows 60% proximal left ICA stenosis. Drug screen positive for cocaine. Patient admitted for further evaluation and management primarily for the right hand infection. Cellulitis of right hand (primary encounter diagnosis) Leukocytosis, unspecified type MDM Data MDM Data: Discussed with consultants/staff Radiographic Imaging (if any) During ED Visit No orders to display SOCIAL: Social History Tobacco Use Smoking status: Every Day Packs/day: 0.50 Years: 0.5 packs/day for 45.0 years (22.5 ttl pk-yrs) Types: Cigarettes Passive exposure: Past Smokeless tobacco: Never Vaping Use Vaping status: Never Used Alcohol use: Not Currently Drug use: Not Currently Types: Cocaine Past Medical History Nursing triage notes/past medical, social, and family hx reviewed by me and I agree except where documented above. Past Medical History: 06/19/2019: Alcohol abuse No date: Arthritis No date: Chronic back pain 02/07/2024: Chronic obstructive pulmonary disease (HCC) No date: Clotting disorder Comment: DVT 10/28/2017: Cocaine abuse ([facility]) No date: Coronary artery disease Comment: moderate stenosis of LAD and mild plaque in other vessels 06/19/2019: Homeless No date: Hyperlipidemia No date: Hypertension 04/29/2020: Tobacco dependence Labs Reviewed - No data to display Laboratory results have been reviewed by hi. @[facility]@ . Allergies -- Felix Inhibitors -- Swelling -- Atorvastatin -- Other (See Comments) -- ACHE ALL OVER. Medications Current Outpatient Medications on File Prior to Encounter: aspirin 81 MG EC tablet, Take 1 (one) tablet (81 mg total) by mouth daily . gabapentin (NEURONTIN) 800 MG tablet, Take 1 (one) tablet (800 mg total) by mouth 3 (three) times a day . HYDROcodone-acetaminophen (NORCO) 7.5-325 mg per tablet, Take 1 (one) tablet by mouth every 6 (six) hours as needed for pain . NIFEdipine (ADALAT CC) 30 MG 24 hr tablet, Take 1 (one) tablet (30 mg total) by mouth daily . sulfamethoxazole-trimethoprim (BACTRIM DS,SEPTRA DS) 800-160 mg per tablet, Take 1 (one) tablet by mouth 2 (two) times a day for 10 days . traMADol (ULTRAM) 50 mg tablet, Take 1 (one) tablet (50 mg total) by mouth every 6 (six) hours as needed . (Computer voice recognition was used in this documentation, there is a possibility of [id number] errors inherent to this technology that may be missed during proofreading.) . Clinical Impression: 1. Cellulitis of right hand 2. Leukocytosis, unspecified type 3. Foreign body in eye ED Disposition ED Disposition Hospitalize Condition -- Comment Reason for inpatient over two midnights: Right hand cellulitis, needing IV ABX Follow-up Information Follow-up information has not been specified. Contact information for after-discharge care Follow-up information has not been specified. New Prescriptions This print group is not available in inpatient encounters. Please contact a control systems technician. [1] Social History Socioeconomic History Marital status: Single Tobacco Use Smoking status: Every Day Current packs/day: 0.50 Average packs/day: 0.5 packs/day for 45.0 years (22.5 ttl pk-yrs) Types: Cigarettes Passive exposure: Past Smokeless tobacco: Never Vaping Use Vaping status: Never Used Substance and Sexual Activity Alcohol use: Not Currently Drug use: Not Currently Types: Cocaine Sexual activity: Not Currently control/protection: None Social Drivers of Health Transportation Needs: No Transportation Needs (10/02/2022) OASIS A1250: Transportation Lack of Transportation (Medical): No Lack of Transportation (Non-Medical): No Patient Unable or Declines to Respond: No [2] Allergies Allergen Reactions Felix Inhibitors Swelling Atorvastatin Other (See Comments) ACHE ALL OVER. Florence Ramírez PA-C 09/07/24 0853 Pt seen yesterday for a burn on his right hand. Burn seems to be getting worse, hand is more swollen and tender. Pt has some streaking up his right arm. Pt started on bactrim and ultram yesterday. Pt was placed in a thumb spica splint yesterday. Pt now having headache and dizziness as well. Pt transfer from outside facility Bed: 95 Expected date: Expected time: Means of arrival: Comments: 1st Choice/ Vázquez documented in this encounter [facility] 09-06-2024 Consult note Associated Order (s): IP CONSULT TO HAND SURGERY Images from the original note were not included. CONSULT NOTE Patient Name: Maryse Mak Admit Date: [id number] MR #: [id number] : 1955 Physicians: Rayo Jaimes MD (Family); Jaguar Ordaz MD (Referring) Aristeo Beavers MD (Hand and Micro Surgery) Assessment and Plan: Other Cellulitis of right hand Assessment & Plan 69 y.o. male presents with cellulitis of the right hand in the setting of burn wounds sustained 5 days earlier - D/w Dr. Beavers - I&D of the right thumb proximal phalanx performed (see procedure note) - Cultures obtained and walked to the lab - Recommend admission for IV abx, abx continued from [facility] - Begin BID warm soapy soaks with packing changes - Multimodal pain control - Hand surgery well reassess in the AM - If no significant improvement seen patient may require formal I&D - NPO at midnight as precaution - Please contact hand surgery RUCHI consulting technical director with questions/concerns Chief Complaint/Reason for Visit: Right hand pain, concern for FTS History of Present Illness: Maryse Mak is a 69 y.o. right hand dominant male presenting from [facility] with c/o right hand pain 2/2 reported burn. Patient states he was working on his car about 5 days ago when he sustained patel to the volar and dorsal aspects of his hand. States he did okay for the first 2-3 days afterwards but about 2 days ago he started to notice worsening pain and swelling in the hand. He also had had nausea and decreased appetite. He was seen in the ED yesterday and prescribed PO abx for cellulitis and discharged. He represented today due to worsening symptoms and overall not felling well. States the pain in his hand is severe, a 9/10 and reports he is unable to move his thumb due to pain. Does endorse the majority of the pain is along the volar aspect of his thumb. He denies any puncture wounds that he is aware of. History: Past Medical History: Diagnosis Date Alcohol abuse 06/19/2019 Arthritis Chronic back pain Chronic obstructive pulmonary disease (HCC) 02/07/2024 Clotting disorder DVT Cocaine abuse ([facility]) 10/28/2017 Coronary artery disease moderate stenosis of LAD and mild plaque in other vessels Homeless 06/19/2019 Hyperlipidemia Hypertension Tobacco dependence 04/29/2020 Past Surgical History: Procedure Laterality Date BACK SURGERY BRING BACK OPEN HEART N/A 08/19/2022 Procedure: STERNAL WOUND EXPLORATION; Surgeon: Wood Eng MD; Location: Main OR; Service: Cardiothoracic CABG W/ RADIAL ARTERY HARVEST N/A 11/20/2021 Procedure: CORONARY ARTERY BYPASS GRAFT X2 AND LEFT AND RIGHT INTERNAL MAMMARY ARTERY GRAFTS; Surgeon: Wood Eng MD; Location: Main OR; Service: Cardiothoracic CARDIAC CATHETERIZATION N/A 11/07/2021 Procedure: Coronary Angiogram; Surgeon: Minoo Grimm MD; Location: [employer]; Service: Cardiovascular CV IR INTERVENTIONAL RADIOLOGY N/A 09/01/2022 Procedure: VR Aspiration Sternal seroma; Surgeon: Florencio Chambers MD; Location: IR LAB; Service: Interventional Radiology HC LEFT HEART CATH N/A 11/07/2021 Procedure: Left Heart Cath; Surgeon: Minoo Grimm MD; Location: [employer]; Service: Cardiovascular left arm leg sx right and left blood clots Bilateral 2009 in [facility] SHOULDER SURGERY STERNAL WIRING N/A 08/06/2022 Procedure: STERNAL INTERNAL FIXATION WITH PLATING AND SCREWS; Surgeon: Wood Eng MD; Location: Main OR; Service: Cardiothoracic Family History Problem Relation Age of Onset Heart disease Father Heart attack Father Heart attack Maternal Uncle Heart disease Maternal Uncle Social History [1] Allergy Information: I have reviewed the patient's allergies. Felix inhibitors and Atorvastatin Home Medications: Outpatient Medications as of 09/06/2024 Medication Sig aspirin 81 MG EC tablet Take 1 (one) tablet (81 mg total) by mouth daily . atorvastatin (LIPITOR) 40 MG tablet Take 1 (one) tablet (40 mg total) by mouth . gabapentin (NEURONTIN) 800 MG tablet Take 1 (one) tablet (800 mg total) by mouth 3 (three) times a day . HYDROcodone-acetaminophen (NORCO) 7.5-325 mg per tablet Take 1 (one) tablet by mouth every 6 (six) hours as needed for pain . NIFEdipine (ADALAT CC) 30 MG 24 hr tablet Take 1 (one) tablet (30 mg total) by mouth daily . sulfamethoxazole-trimethoprim (BACTRIM DS,SEPTRA DS) 800-160 mg per tablet Take 1 (one) tablet by mouth 2 (two) times a day for 10 days . traMADol (ULTRAM) 50 mg tablet Take 1 (one) tablet (50 mg total) by mouth every 6 (six) hours as needed . Review of Systems: The following system(s) were reviewed and pertinent findings noted: Neuro: + baseline numbness Integumentary: +patel, redness MuscSkel: + right hand pain Physical Examination: Vital Signs: BP (!) 150/77 (BP Location: Left arm, Patient Position: Lying) Pulse 82 Temp 98.2 F (36.8 C) (Oral) Resp 16 Ht 6' Wt 93 kg (205 lb) SpO2 94% BMI 27.80 kg/m Constitutional: Appears well, no distress Cardiovascular: 2+ radial pulse with BCR to all fingers in right upper extremity Neurological: RUE: SILT to all fingers. R/U/M nerves all grossly intact Integumentary: See photos. Significant erythema over the proximal phalanx of the right thumb which does extend, to a lesser severity, over the thenar eminence with lymphangitic streaking up to the medial forearm. Burn wounds present to the dorsoulnar aspect of the thumb. There are scab wounds present of the volar distal phalanx as well as hypothenar eminence. . Musculoskeletal: RUE: Significant swelling present throughout the thumb and thenar eminence. TTP along the flexor tendon sheath of the thumb with tenderness extending into the thenar eminence and distal forearm, volarly. Patient unable to flex at the IP joint. Is able to minimally flex at the MCP joint but significant limited due to pain. Finger does not appear to be held in flexion at this time. He does endorse pain with passive extension of the thumb. He has mild tenderness along the dorsal aspect of the thumb. [1] Social History Socioeconomic History Marital status: Single Tobacco Use Smoking status: Every Day Current packs/day: 0.50 Average packs/day: 0.5 packs/day for 45.0 years (22.5 ttl pk-yrs) Types: Cigarettes Passive exposure: Past Smokeless tobacco: Never Vaping Use Vaping status: Never Used Substance and Sexual Activity Alcohol use: Not Currently Drug use: Not Currently Types: Cocaine Sexual activity: Not Currently control/protection: None Social Drivers of Health Transportation Needs: No Transportation Needs (10/02/2022) OASIS A1250: Transportation Lack of Transportation (Medical): No Lack of Transportation (Non-Medical): No Patient Unable or Declines to Respond: No Cosigned by Aristeo Beavers MD at 09/07/2024 5:58 AM EDT [facility] 09-06-2024 Physician Emergency department Note I performed a substantive part of the MDM during the patient's E/M visit. I personally interviewed the patient. I personally examined the patient. I discussed the patient with BUILDINGS AND GROUNDS SUPERVISOR/PA. I personally made or approved the documented management plan and acknowledge its risk of complications. My( EKG/X-ray/US/CT) interpretation - Management / test interpretation discussed with - Patient is a 69-year-old male who states that he burned his right hand on Wednesday he thinks. It may have been Wednesday; he is not sure, but he thinks it was Wednesday. He said he has been putting Neosporin on it and wrapping it, and now he has developed increased pain, swelling, and there was a red streak extending up his arm today. He was seen at [facility], seen by Ortho. They thought he might have tenosynovitis, and he was given Zosyn and vancomycin and sent here. PHYSICAL EXAM Shows that he does have what appears to be burn on his right thumb on the palmar side area. There are also 2 scabs on the dorsal surface of his right hand. There is erythema. He seems to have fairly good range of motion of his fingers passively, except for his thumb, which he has trouble bending at the IP joint. He does seem to have cellulitis with ascending lymphangitic streak up to at least the elbow area. [facility] Work Phone: 09-06-2024 Physician Emergency department Note Images from the original note were not included. ED PROVIDER NOTE [facility] NAME: Maryse Mak AGE: 69 y.o. : 1955 VISIT DATE: 09/06/2024 CSN: [id number] PCP: Rayo Jaimes MD Chief Complaint Patient presents with Hand Injury Patient is a 69-year-old male with history of alcohol abuse, arthritis, COPD, cocaine abuse, CAD, HTN who presents with a hand injury. Patient arrives as a transfer from [facility]. He states that a few days ago he was working on his car and accidentally burned his right thumb. He states that since then he has had spreading redness, pain, and swelling to his right hand. He reports he is unable to bend his right thumb and right index finger. He also states that since he burned his finger he has felt unstable while walking. Denies fall or syncope. Denies room spinning sensation. Denies chest pain, shortness of breath, nausea, vomiting, abdominal pain, headache, visual disturbance. Vital signs reviewed. Hand Injury Associated symptoms: tenderness Past Medical History: Diagnosis Date Alcohol abuse 06/19/2019 Arthritis Chronic back pain Chronic obstructive pulmonary disease ([facility]) 02/07/2024 Clotting disorder DVT Cocaine abuse ([facility]) 10/28/2017 Coronary artery disease moderate stenosis of LAD and mild plaque in other vessels Homeless 06/19/2019 Hyperlipidemia Hypertension Tobacco dependence 04/29/2020 Past Surgical History: Procedure Laterality Date BACK SURGERY BRING BACK OPEN HEART N/A 08/19/2022 Procedure: STERNAL WOUND EXPLORATION; Surgeon: Wood Eng MD; Location: Main OR; Service: Cardiothoracic CABG W/ RADIAL ARTERY HARVEST N/A 11/20/2021 Procedure: CORONARY ARTERY BYPASS GRAFT X2 AND LEFT AND RIGHT INTERNAL MAMMARY ARTERY GRAFTS; Surgeon: Wood Eng MD; Location: Main OR; Service: Cardiothoracic CARDIAC CATHETERIZATION N/A 11/07/2021 Procedure: Coronary Angiogram; Surgeon: Minoo Grimm MD; Location: [facility]; Service: Cardiovascular CV IR INTERVENTIONAL RADIOLOGY N/A 09/01/2022 Procedure: VR Aspiration Sternal seroma; Surgeon: Florencio Chambers MD; Location: IR LAB; Service: Interventional Radiology HC LEFT HEART CATH N/A 11/07/2021 Procedure: Left Heart Cath; Surgeon: Minoo Grimm MD; Location: [facility]; Service: Cardiovascular left arm leg sx right and left blood clots Bilateral 2009 in [facility] SHOULDER SURGERY STERNAL WIRING N/A 08/06/2022 Procedure: STERNAL INTERNAL FIXATION WITH PLATING AND SCREWS; Surgeon: Wood Eng MD; Location: Main OR; Service: Cardiothoracic Family History Problem Relation Age of Onset Heart disease Father Heart attack Father Heart attack Maternal Uncle Heart disease Maternal Uncle Social History [1] Previous Medications Medication Sig aspirin 81 MG EC tablet Take 1 (one) tablet (81 mg total) by mouth daily . atorvastatin (LIPITOR) 40 MG tablet Take 1 (one) tablet (40 mg total) by mouth . gabapentin (NEURONTIN) 800 MG tablet Take 1 (one) tablet (800 mg total) by mouth 3 (three) times a day . HYDROcodone-acetaminophen (NORCO) 7.5-325 mg per tablet Take 1 (one) tablet by mouth every 6 (six) hours as needed for pain . NIFEdipine (ADALAT CC) 30 MG 24 hr tablet Take 1 (one) tablet (30 mg total) by mouth daily . sulfamethoxazole-trimethoprim (BACTRIM DS,SEPTRA DS) 800-160 mg per tablet Take 1 (one) tablet by mouth 2 (two) times a day for 10 days . traMADol (ULTRAM) 50 mg tablet Take 1 (one) tablet (50 mg total) by mouth every 6 (six) hours as needed . Allergies[2] Review of Systems Eyes: Negative for visual disturbance. Respiratory: Negative for shortness of breath. Cardiovascular: Negative for chest pain. Gastrointestinal: Negative for abdominal pain, nausea and vomiting. Musculoskeletal: Positive for arthralgias. Skin: Positive for wound. Neurological: Negative for syncope and headaches. Patient Vitals for the past 24 hrs: BP Temp Temp src Pulse Resp SpO2 Height Weight 09/07/24 0730 116/80 -- -- 64 16 94 % -- -- 09/07/24 0710 -- -- -- -- 18 -- -- -- 09/07/24 0709 117/75 -- -- 74 18 94 % -- -- 09/07/24 0205 -- -- -- -- 18 -- -- -- 09/07/24 0019 (!) 144/83 98.4 F (36.9 C) Oral 75 16 94 % -- -- 09/06/24 2248 -- -- -- -- 16 -- -- -- 09/06/242233 138/87 98.4 F (36.9 C) Oral 74 16 98 % -- -- 09/06/242227 -- -- -- -- 16 -- -- -- 09/06/242029 -- -- -- -- 16 -- -- -- 09/06/242028 (!) 154/76 -- -- 78 16 98 % -- -- 09/06/24 192 -- -- -- -- 16 -- -- -- 09/06/24 190 -- -- -- -- 16 -- -- -- 09/06/24 1751 -- -- -- -- -- 94 % -- -- 09/06/24 1742 (!) 150/77 98.2 F (36.8 C) Oral 82 15 95 % 6' 93 kg (205 lb) Physical Exam Vitals and nursing note reviewed. Constitutional: General: He is not in acute distress. Appearance: Normal appearance. He is not ill-appearing. Comments: Patient is pleasant and answers questions appropriately. HENT: Head: Normocephalic and atraumatic. Nose: Nose normal. Eyes: Extraocular Movements: Extraocular movements intact. Cardiovascular: Rate and Rhythm: Normal rate and regular rhythm. Heart sounds: No friction rub. No gallop. Musculoskeletal: General: Swelling and tenderness present. No deformity. Cervical back: Normal range of motion. Comments: Patient has a burn type kenyatta to the dorsal aspect of his right thumb with surrounding erythema. Erythema extends to the dorsal aspect of his right index finger and dorsum of right hand with swelling. Patient has limited flexion of his right thumb and right index finger. Brisk capillary refill. 2+ right radial pulse. Photo captured in epic. Pulmonary: Effort: Pulmonary effort is normal. No respiratory distress. Breath sounds: Normal breath sounds. No stridor. No wheezing, rhonchi or rales. Comments: Patient speaks in full complete sentences on room air. Skin: General: Skin is warm and dry. Neurological: General: No focal deficit present. Mental Status: He is alert and oriented to person, place, and time. GCS: GCS eye subscore is 4. GCS verbal subscore is 5. GCS motor subscore is 6. Psychiatric: Mood and Affect: Mood normal. Laboratory & Radiographic Imaging (if done): Results for orders placed or performed during the hospital encounter of 09/06/24 Wound Aerobic And Anaerobic Culture Specimen: Finger, Right, Thumb; Abscess Result Value Ref Range Gram Stain Result No Organisms Seen Gram Stain Result Few WBC Gram Stain Result Many RBC Basic Metabolic Panel Result Value Ref Range Sodium 137 135 - 145 mmol/L Potassium 3.7 3.5 - 5.1 mmol/L Chloride 104 98 - 108 mmol/L Bicarbonate 27 21 - 32 mmol/L Anion Gap 10 10 - 20 mmol/L Glucose 122 (H) 65 - 99 mg/dL BUN 10 8 - 25 mg/dL Creatinine 0.84 0.80 - 1.30 mg/dL eGFR 96 >=60 mL/min/1.73 m2 BUN/Creatinine Ratio 11.9 10.0 - 20.0 Calcium 8.6 8.4 - 10.2 mg/dL CBC Result Value Ref Range WBC 13.07 (H) 4.50 - 11.00 K/mcL RBC 4.22 (L) 4.50 - 5.90 M/mcL Hemoglobin 13.1 (L) 13.5 - 17.5 g/dL Hematocrit 39.1 (L) 41.0 - 53.0 % MCV 92.7 80.0 - 100.0 fL MCH 31.0 26.0 - 34.0 pg MCHC 33.5 31.0 - 37.0 g/dL Platelets 203 150 - 400 K/mcL RDW - CV 14.5 11.6 - 14.8 % MPV 10.4 9.4 - 12.4 fL Nucleated RBC 0.0 % Nucleated RBC Abs 0.00 0.00 - 0.00 K/mcL Hemoglobin A1c Result Value Ref Range Hemoglobin A1C 5.6 4.2 - 5.6 % Estimated Average Glucose 114 74 - 114 mg/dL Lipid Panel Result Value Ref Range Cholesterol 90 (L) 100 - 199 mg/dL Triglycerides 64 30 - 150 mg/dL HDL 40 40 - 59 mg/dL Chol/HDL Ratio 2.3 ratio LDL Calculated 37 10 - 130 mg/dL Non HDL Cholesterol 50 mg/dL XR MR Clear Final Result No metallic foreign body is identified in either orbit. Workstation ID: [id number] MR Hand Right With And Without Contrast (Results Pending) Procedures Medical Decision Making HPI/ROS This patient is a 69 y.o. male with history of alcohol abuse, arthritis, COPD, cocaine abuse, CAD, HTN who presents with a hand injury. Patient arrives as a transfer from [facility]. He states that a few days ago he was working on his car and accidentally burned his right thumb. He states that since then he has had spreading redness, pain, and swelling to his right hand. He reports he is unable to bend his right thumb and right index finger. He also states that since he burned his finger he has felt unstable while walking. Denies fall or syncope. Denies room spinning sensation. Denies chest pain, shortness of breath, nausea, vomiting, abdominal pain, headache, visual disturbance. Medical Decision Making I saw and evaluated the patient. I have reviewed the chief complaint, triage note, past medical/surgical, family, and social history. On my evaluation, the patient appears in no acute distress. Patient speaks in full complete sentences on room air. Lungs clear to auscultation. Normal cardiac rate and rhythm. Alert & oriented x3. GCS 15. No focal deficit. Head normocephalic and atraumatic. EOM intact. Patient has a burn type kenyatta to the dorsal aspect of his right thumb with surrounding erythema. Erythema extends to the dorsal aspect of his right index finger and dorsum of right hand with swelling. Patient has limited flexion of his right thumb and right index finger. Brisk capillary refill. 2+ right radial pulse. Photo captured in epic. Patient presents as a transfer from [facility] for a right hand infection. Patient reports he accidentally burned his right thumb while working on a car and since then has had worsening erythema, edema, pain, and decreased range of motion. Xray right hand negative for fracture or gas. Patient given IV vancomycin and zosyn prior to transfer. [facility] documentation reports concern for flexor tenosynovitis. I discussed the case with the hand service RUCHI at 1814 who agreed to evaluate the patient in the ED. Hand service plans to perform I&D and recommends admission to medicine. Patient also reported feeling off-balance with ambulation since the incident. No focal deficits on exam. CTA head and neck shows 60% proximal left ICA stenosis. Drug screen positive for cocaine. Patient admitted for further evaluation and management primarily for the right hand infection. Cellulitis of right hand (primary encounter diagnosis) Leukocytosis, unspecified type MDM Data MDM Data: Discussed with consultants/staff Radiographic Imaging (if any) During ED Visit No orders to display SOCIAL: Social History Tobacco Use Smoking status: Every Day Packs/day: 0.50 Years: 0.5 packs/day for 45.0 years (22.5 ttl pk-yrs) Types: Cigarettes Passive exposure: Past Smokeless tobacco: Never Vaping Use Vaping status: Never Used Alcohol use: Not Currently Drug use: Not Currently Types: Cocaine Past Medical History Nursing triage notes/past medical, social, and family hx reviewed by me and I agree except where documented above. Past Medical History: 06/19/2019: Alcohol abuse No date: Arthritis No date: Chronic back pain 02/07/2024: Chronic obstructive pulmonary disease (HCC) No date: Clotting disorder Comment: DVT 10/28/2017: Cocaine abuse (HCC) No date: Coronary artery disease Comment: moderate stenosis of LAD and mild plaque in other vessels 06/19/2019: Homeless No date: Hyperlipidemia No date: Hypertension 04/29/2020: Tobacco dependence Labs Reviewed - No data to display Laboratory results have been reviewed by me. @PROCC@ . Allergies -- Felix Inhibitors -- Swelling -- Atorvastatin -- Other (See Comments) -- ACHE ALL OVER. Medications Current Outpatient Medications on File Prior to Encounter: aspirin 81 MG EC tablet, Take 1 (one) tablet (81 mg total) by mouth daily . gabapentin (NEURONTIN) 800 MG tablet, Take 1 (one) tablet (800 mg total) by mouth 3 (three) times a day . HYDROcodone-acetaminophen (NORCO) 7.5-325 mg per tablet, Take 1 (one) tablet by mouth every 6 (six) hours as needed for pain . NIFEdipine (ADALAT CC) 30 MG 24 hr tablet, Take 1 (one) tablet (30 mg total) by mouth daily . sulfamethoxazole-trimethoprim (BACTRIM DS,SEPTRA DS) 800-160 mg per tablet, Take 1 (one) tablet by mouth 2 (two) times a day for 10 days . traMADol (ULTRAM) 50 mg tablet, Take 1 (one) tablet (50 mg total) by mouth every 6 (six) hours as needed . (Computer voice recognition was used in this documentation, there is a possibility of [id number] errors inherent to this technology that may be missed during proofreading.) . Clinical Impression: 1. Cellulitis of right hand 2. Leukocytosis, unspecified type 3. Foreign body in eye ED Disposition ED Disposition Hospitalize Condition -- Comment Reason for inpatient over two midnights: Right hand cellulitis, needing IV ABX Follow-up Information Follow-up information has not been specified. Contact information for after-discharge care Follow-up information has not been specified. New Prescriptions This print group is not available in inpatient encounters. Please contact a control systems technician. [1] Social History Socioeconomic History Marital status: Single Tobacco Use Smoking status: Every Day Current packs/day: 0.50 Average packs/day: 0.5 packs/day for 45.0 years (22.5 ttl pk-yrs) Types: Cigarettes Passive exposure: Past Smokeless tobacco: Never Vaping Use Vaping status: Never Used Substance and Sexual Activity Alcohol use: Not Currently Drug use: Not Currently Types: Cocaine Sexual activity: Not Currently control/protection: None Social Drivers of Health Transportation Needs: No Transportation Needs (10/02/2022) OASIS A1250: Transportation Lack of Transportation (Medical): No Lack of Transportation (Non-Medical): No Patient Unable or Declines to Respond: No [2] Allergies Allergen Reactions Felix Inhibitors Swelling Atorvastatin Other (See Comments) ACHE ALL OVER. Florence Ramírez PA-C 09/07/24 0853 [facility] 09-06-2024 Emergency department Triage note Pt seen yesterday for a burn on his right hand. Burn seems to be getting worse, hand is more swollen and tender. Pt has some streaking up his right arm. Pt started on bactrim and ultram yesterday. Pt was placed in a thumb spica splint yesterday. Pt now having headache and dizziness as well. Pt transfer from outside facility [facility] 09-06-2024 Emergency department Note Bed: 95 Expected date: Expected time: Means of arrival: Comments: 1st Choice/ V[facility]quez [facility] 09-06-2024 History of Present illness Narrative [facility] NOTE: Name: Maryse Mak, 69 y.o. CSN:[id number] PCP: @PCP@ ALL: Allergies[1] History: Chief Complaint: Hand Pain (Rt hand pain/swelling x 2 days ) Encounter Date: 09/06/2024 HPI: The history was obtained from the patient. Maryse is a 69 y.o. male, who presents with a chief complaint of Hand Pain (Rt hand pain/swelling x 2 days ) Also complaining of extreme occipitally located headache, 9/10, ' worst headache of his life.' New onset atalgic gait, dizziness. Denies nausea/vomiting or stomach upset. No chest pain or SOB. Patient recently discharged from ER on bactrim and tramadol for pain relief. Has been taking medications as prescribed. Woke up this am with extreme hand swelling and pain. Noted erythema and streaking not present yesterday extending from thumb/wrist to past forearm into upper arm. Pain in hand also worsened overnight. Denies fevers or muscle aches. Noted atalgic gait started last night, worse upon awakening PMHx: Medical History[2] Current Medications[3] PMSx: Surgical History[4] Fam Hx: Family History[5] SOC. Hx: Social History Socioeconomic History Marital status: Spouse name: Not on file Number of children: Not on file Years of education: Not on file Highest education level: Not on file Occupational History Not on file Tobacco Use Smoking status: Not on file Smokeless tobacco: Not on file Substance and Sexual Activity Alcohol use: Not on file Drug use: Not on file Sexual activity: Not on file Other Topics Concern Not on file Social History Narrative Not on file Social Drivers of Health Financial Resource Strain: Not on file Food Insecurity: Not on file Transportation Needs: No Transportation Needs (10/02/2022) Received from [facility] OASIS A1250: Transportation Lack of Transportation (Medical): No Lack of Transportation (Non-Medical): No Patient Unable or Declines to Respond: No Physical Activity: Not on file Stress: Not on file Social Connections: Not on file Intimate Partner Violence: Not on file Housing Stability: Not on file Vitals: 09/06/24 1233 BP: 131/77 Pulse: 86 Resp: 18 Temp: 36.6 C (97.8 F) SpO2: 97% Physical Exam Constitutional: General: He is in acute distress. Appearance: He is ill-appearing. HENT: Head: Normocephalic. Eyes: General: No scleral icterus. Extraocular Movements: Extraocular movements intact. Conjunctiva/sclera: Conjunctivae normal. Comments: Pupils 3mm, reactive to light. EOM intact; could be related to Ultram use. Cardiovascular: Rate and Rhythm: Normal rate. Pulses: Normal pulses. Pulmonary: Comments: Tachypnea 2/2 pain, NARD, Course breath sounds Musculoskeletal: General: Swelling, tenderness, deformity and signs of injury present. Right upper arm: Swelling and tenderness present. Right hand: Swelling and tenderness present. Decreased range of motion. Decreased strength of finger abduction and thumb/finger opposition. Arms: Comments: Hand swollen. Erythematous thenar aspect expanding to wrist. ROM of wrist intact but painful. No central melt specialist strength on L 2/2 pain, central melt specialist strength normal left. Arm strength normal bl Fusiform swelling of thumb and thenar eminence. ROM RUE limited do to pain. Skin: Capillary Refill: Capillary refill takes less than 2 seconds. Findings: Erythema and lesion present. Comments: Erythematous, streaking along anterior aspect along thenar and wrist into upper arm, no clear erythematous borders. No fluctuance purulence drainage or crepitus to palpation Neurological: Mental Status: He is disoriented. Cranial Nerves: No cranial nerve deficit. Gait: Gait abnormal. Comments: Romberg postitive, pinpoint pupils reactive to light, EOM intact. NO facial assymetry. Pet Ambassador strength disrupted 2/2 to injury/pain. Sensory intact bL and distal to injury Psychiatric: Comments: Abnormal cognition- slightly confused. ____ I did personally review Maryse's past medical history, surgical history, social history, as well as family history (when relevant). In this case, I also oversaw the his drug management by reviewing his medication list, allergy list, as well as the medications that I prescribed during the UC course and/or recommended as an out-patient (including possible OTC medications such as acetaminophen, NSAIDs , etc). After reviewing the items above, I did look at previous medical documentation, such as recent hospitalizations, office visits, and/or recent consultations with PCP/specialist. SDOH: Another factor that I considered in Maryse's care was his Social Determinants of Health (SDOH). During this UC encounter, he did not have social determinants of health. Those SDOH influencing Maryse's care are: none UC COURSE/MEDICAL DECISION MAKING: Maryse is a 69 y.o., who presents with a working diagnosis of 1. Cellulitis of right thumb 2. Acute intractable headache, unspecified headache type 3. Burn of finger and thumb of right hand, second degree, sequela with a differential to include: Septic shock vs SIRS Unlikely given normal BP/HR no acute distress. However, signs of spreading infection along anterior arm. Afebrile. Leuks elevated on ER. No palpable lymph nodes at elbow. 2. Cellulitis with lymphangitis A. Erythema/streaking noted up to the right axilla along anterior arm, he is Afebrile. Skin ulcerations along hand near thumb from recent burn injury seem callused, no fluctuance noted but the thenar eminence appears quite inflamed. 3. DVT A. Recent injury, does have hx of cardiovascular disease. No pain to palpation upper arm, arm is erythematous, pain located at traumatic injury along hand and wrist. No palpable cord. 4. Stroke A. New onset worsening atalgic gait started yesterday, worse upon waking this am. Extreme occipitally located headache, feels different from patients typical spinal migraines. Romberg positive. Could be related to a cervicogenic LAWSON, nonetheless he's quite bothered by it and would benefit from ER evaluation given it being compounded by dizziness. Plan: Despite a few doses of abx at home with Bactrim DS, told to go to ER for IV abx; he did not want EMS transfer, notified transfer RN at 12:33hrs Thumb spica applied to right hand to assist with position of comfort. Confusion- concerns for neurologic source, advised to also get workup at ER Patient refused EMS squad, states can drive himself and drove himself. Pt's son was called in attempts to have a him transferred via family, not able to drive patient to ER due to being in [place], [place], he was notified of his father's confusion and need to go to [facility]. I, PETE Jorge student, helped prepare the medical record for my supervising clinician, Keri Hussein PA-C. CHAPINCITO Jorge, [facility] Supervised by Keri Hussein PA-C Advanced Practice Provider [facility] I was present with the PETE student who participated in the documentation of this note. I have personally seen and re-examined the patient and performed the medical decision-making components (assessment and plan of care). I have reviewed the PETE student documentation and verified the findings in the note as written with additions or exceptions as stated in the body of this note. Keri Hussein PA-C [1] Allergies Allergen Reactions Felix Inhibitors Swelling Atorvastatin Other ACHE ALL OVER. [2] No past medical history on file. [3] Current Outpatient Medications Medication Sig Dispense Refill aspirin 81 mg chewable tablet Chew 1 tablet (81 mg) once daily. aspirin 81 mg EC tablet Take 1 tablet (81 mg) by mouth once daily. atorvastatin (Lipitor) 40 mg tablet Take 1 tablet (40 mg) by mouth early in the morning.. cloNIDine (Catapres) 0.2 mg tablet Take 1 tablet (0.2 mg) by mouth every 12 hours. gabapentin (Neurontin) 800 mg tablet Take 1 tablet (800 mg) by mouth 3 times a day. HYDROcodone-acetaminophen ([place]) 7.5-325 mg tablet Take 1 tablet by mouth every 6 hours if needed. NIFEdipine ER (NIFEdipine CC) 30 mg 24 hr tablet Take 1 tablet (30 mg) by mouth once daily. sulfamethoxazole-trimethoprim (Bactrim DS) 800-160 mg tablet Take 1 tablet by mouth twice a day. traMADol (Ultram) 50 mg tablet Take 1 tablet (50 mg) by mouth every 6 hours if needed. No current facility-administered medications for this visit. [4] No past surgical history on file. [5] No family history on file. documented in this encounter [facility] Work Phone: 08-11-2024 Hospital Discharge instructions Becca Campa PA-C - 08/11/2024 3:49 PM EDT Please take Ibuprofen (Motrin) or Acetaminophen (Tylenol) for pain. These are available over the counter. You may take Ibuprofen 600 mg every 8 hours with food for pain. You may also take Acetaminophen 650 mg every 4?6 hours for pain. Do not exceed 3000 mg of Tylenol a day as this can cause liver damage. Do not drink alcohol with either of these medications. Evidence based research has shown taking these two drugs together work the same (or better in some cases) for pain than opioids or narcotic pain medication. In the medical field, there is always a level of diagnostic uncertainty, even if this uncertainty is low. For this reason, it is important to immediately return to the emergency department if you have any new symptoms, worsening symptoms, change of symptoms, or if you have any other concerns. We would be happy to re-evaluate you. Otherwise, please take your medications as prescribed and follow-up as recommended. The following attachments cannot be sent through Care Everywhere.Chest Pain Discharge Instructions (Canadian)documented in this encounter [facility] 08-11-2024 Note Formatting of this n ote might be different from the original. Provider sent secure chat to advise of OON status with pt insurance [employer]. CM did provide locations that are in network should the pt require a medical admission. [facility] 08-11-2024 Note Formatting of this n ote might be different from the original. Provider sent secure chat to advise of OON status with pt insurance [employer]. CM did provide locations that are in network should the pt require a medical admission. [facility] 08-11-2024 Miscellaneous Notes Provider sent secure chat to advise of OON status with pt insurance [facility]. CM did provide locations that are in network should the pt require a medical admission. documented in this encounter [facility] 08-11-2024 Emergency department Note EMERGENCY DEPARTMENT ENCOUNTER Pt Name: Maryse Mak Birthdate 1955 Date of evaluation: 08/11/2024 ED Provider: Becca Campa PA-C CHIEF COMPLAINT Chief Complaint Patient presents with Chest Pain Pt c/o CP and SOB for the few days. HISTORY OF PRESENT ILLNESS (Location/Symptom, Timing/Onset, Context/Setting, Quality, Duration, Modifying Factors, Severity) Note limiting factors. I wore appropriate PPE for the entirety of this encounter. HPI Maryse Mka is a 69 y.o. male who presents to the emergency department for evaluation of right-sided chest pain and shortness of breath worsened over the past couple days. He notes he has had multiple previous heart surgeries including cardiac stents and also has a history of flail ribs, unsure if this is related to his symptoms however denies any new injury or trauma. He notes he had a difficult time sleeping last night secondary to the pain. He notes the pain is worse with palpation and with movement. He denies any fever or chills. Denies any nausea, vomiting or diaphoresis. States he is not on any blood thinners. Nursing Notes were reviewed. Limitations to history: None Outside historians: None REVIEW OF SYSTEMS Review of Systems 14 systems reviewed, positives and pertinent negatives as per HPI. All other systems were reviewed and are negative. PAST MEDICAL HISTORY No past medical history on file. SURGICAL HISTORY No past surgical history on file. CURRENT MEDICATIONS Discharge Medication List as of 08/11/2024 3:57 PM ALLERGIES Patient has no known allergies. FAMILY HISTORY No family history on file. SOCIAL HISTORY Social History Socioeconomic History Marital status: Single Social Drivers of Health Transportation Needs: No Transportation Needs (10/02/2022) Received from [facility] OASIS A1250: Transportation Lack of Transportation (Medical): No Lack of Transportation (Non-Medical): No Patient Unable or Declines to Respond: No SCREENINGS HEART Score History: Slightly suspicious ECG: Normal Age: 65+ Risk Factors: 1-2 risk factors Troponin: Less than or equal to normal limit HEART Score: 3 PHYSICAL EXAM ED Triage Vitals Temp Pulse Resp BP -- -- -- -- SpO2 Temp src Heart Rate Source Patient Position -- -- -- -- BP Location FiO2 (%) -- -- Physical Exam Vitals and nursing note reviewed. Constitutional: General: He is not in acute distress. Appearance: He is well-developed. He is not ill-appearing. HENT: Head: Normocephalic and atraumatic. Eyes: Conjunctiva/sclera: Conjunctivae normal. Cardiovascular: Rate and Rhythm: Normal rate and regular rhythm. Heart sounds: No murmur heard. Pulmonary: Effort: Pulmonary effort is normal. No respiratory distress. Breath sounds: Normal breath sounds. No decreased breath sounds, wheezing or rhonchi. Chest: Chest wall: Tenderness (Right anterior lateral chest with palpation and movement) present. Abdominal: Palpations: Abdomen is soft. Tenderness: There is no abdominal tenderness. Musculoskeletal: General: No swelling. Cervical back: Neck supple. Right lower leg: No tenderness. No edema. Left lower leg: No tenderness. No edema. Skin: General: Skin is warm and dry. Capillary Refill: Capillary refill takes less than 2 seconds. Neurological: Mental Status: He is alert. Psychiatric: Mood and Affect: Mood normal. DIAGNOSTIC RESULTS RADIOLOGY (Per Emergency Physician): Interpretation per the Radiologist below, if available at the time of this note: XR chest 1 view Final Result No radiographic evidence of acute cardiopulmonary process. Report Dictated on Electronically Signed By: Anastasia Solis MD Electronically Signed Date/Time: 08/11/2024 12:16 PM EDT LABS: Labs Reviewed BASIC METABOLIC PANEL - Abnormal Result Value SODIUM 143 POTASSIUM 4.7 CHLORIDE 108 (*) CARBON DIOXIDE 26 UREA NITROGEN 12 CREATININE 0.80 GLUCOSE 105 CALCIUM 9.2 ANION GAP 9 eGFR >90.0 CBC WITH AUTO DIFFERENTIAL - Abnormal Auto WBC 8.5 RBC 5.23 Hemoglobin 16.3 Hematocrit 47.6 MCV 91.0 MCH 31.2 MCHC 34.2 RDW 14.0 Platelets 239 MPV 10.0 nRBC 0.0 Neutrophils Relative 65.1 Lymphocytes Relative 23.0 Monocytes Relative 6.4 Eosinophils Relative 3.4 Basophils Relative 0.8 Immature Grans % 1.3 Neutrophils Absolute 5.6 Lymphocytes Absolute 2.0 Monocytes Absolute 0.6 Eosinophils Absolute 0.3 Basophils Absolute 0.1 Immature Grans Absolute 0.1 (*) HIGH SENSITIVITY TROPONIN, SERIAL BASELINE - Normal Troponin HS Serial Baseline 3 D-DIMER,QUANTITATIVE - Normal D-DIMER, INNOVANCE 0.46 Narrative: Innovance D-Dimer values of <0.50 mg/L FEU can be used in combination with a pre-test probability model (e.g. Well's) to exclude pulmonary embolism (PE) disease, as well as an aid in the diagnosis of deep vein thrombosis (DVT). HIGH SENSITIVITY TROPONIN, SERIAL, SECOND TEST - Normal 2h Troponin HS (Serial 2nd Troponin) 4 All other labs were within normal range or not returned as of this dictation. EMERGENCY DEPARTMENT COURSE and DIFFERENTIAL DIAGNOSIS/MDM: Vitals: Vitals: 08/11/24 1125 08/11/24 1506 BP: 118/82 130/87 BP Location: Right arm Patient Position: Sitting Pulse: 75 82 Resp: 16 18 Temp: 36.5 C (97.7 F) TempSrc: Temporal SpO2: 94% 97% Medications morphine injection 4 mg (4 mg IntraVENous Given 08/11/24 1214) ondansetron (Zofran) injection 4 mg (4 mg IntraVENous Given 08/11/24 1213) ketorolac (Toradol) injection 15 mg (15 mg IntraVENous Given 08/11/24 1450) ED care was supervised by Dr. Romano who independently examined and evaluated the patient. Please see their attestation note for further details. In brief, Maryse Mak is a 69 y.o. male who presented to the emergency department for evaluation of chest pain and shortness of breath worsened over the past 1 to 2 days. Endorses PMH of cardiac stent placement, flail chest. Presents to the ED hemodynamically stable completely normal vital signs, 94% on room air. He notes the pain is reproducible with palpation and with movement, this is also appreciated on exam. Nursing notes and medical records reviewed. Initial medical management includes morphine, Zofran Initial workup includes CBC, BMP, troponin, chest x-ray, EKG Upon reassessment patient is resting company in the chair no acute distress, vitals remained unremarkable throughout ED course. Lab workup results CBC shows no significant leukocytosis or anemia. BMP shows no electrolyte derangement or KP. D-dimer within normal range. Troponin is 3, delta troponin is 4. See Epiphany for EKG interpretation by attending Imaging results per radiology chest x-ray shows no acute cardiopulmonary process. HEART score is 3-4 I estimate there is LOW risk for (including but not limited to) ACUTE CORONARY SYNDROME, PULMONARY EMBOLISM, PNEUMOTHORAX, RUPTURED ESOPHAGUS OR THORACIC AORTIC DISSECTION, thus I consider the discharge disposition reasonable. Marysemiguel Mak (or their surrogate) and I have discussed the diagnosis and risks, and we agree with discharging home with close follow-up. We also discussed returning to the Emergency Department immediately if new or worsening symptoms occur. We have discussed the symptoms which are most concerning that necessitate immediate return. Diagnosis: chest wall pain Disposition: discharge Prescriptions provided: naproxen Discussed ED return precautions, recommended consulting their primary doctor or returning to the ED if there are any new or worsening of symptoms, particularly fever, chills, radiating chest pain, SOB, N/V, diaphoresis Follow-up with PCP in 1 week PROCEDURES: Unless otherwise noted below, none Procedures FINAL IMPRESSION 1. Chest wall pain DISPOSITION Discharge 08/11/2024 02:53:14 PM PATIENT REFERRED TO: [facility] EMERGENCY DEPT [address] [place] [id number] Go to If symptoms worsen Sae Jaimes MD [facility] [phone] Schedule an appointment as soon as possible for a visit in 1 week DISCHARGE MEDICATIONS: Discharge Medication List as of 08/11/2024 3:57 PM START taking these medications Details naproxen (Naprosyn) 500 MG tablet Take 1 tablet (500 mg) by mouth 2 times daily (with meals) for 7 days., Starting Wed08/11/2024, Until Wed08/18/2024, Normal (Comment: Please note this report has been produced using speech recognition software and may contain errors related to that system including errors in grammar, punctuation, and spelling, as well as words and phrases that may be inappropriate. If there are any questions or concerns please feel free to contact the dictating provider for clarification.) Becca Campa PA-C (electronically signed) Emergency Medicine Provider Becca Campa PA-C 08/11/24 1559 Cosigned by Surjit Romano DO at 08/11/2024 7:20 PM EDT documented in this encounter [facility] 08-11-2024 Physician Emergency department Note EMERGENCY DEPARTMENT ENCOUNTER Pt Name: Maryse Mak Birthdate 1955 Date of evaluation: 08/11/2024 ED Provider: Becca Campa PA-C CHIEF COMPLAINT Chief Complaint Patient presents with Chest Pain Pt c/o CP and SOB for the few days. HISTORY OF PRESENT ILLNESS (Location/Symptom, Timing/Onset, Context/Setting, Quality, Duration, Modifying Factors, Severity) Note limiting factors. I wore appropriate PPE for the entirety of this encounter. HPI Maryse Mak is a 69 y.o. male who presents to the emergency department for evaluation of right-sided chest pain and shortness of breath worsened over the past couple days. He notes he has had multiple previous heart surgeries including cardiac stents and also has a history of flail ribs, unsure if this is related to his symptoms however denies any new injury or trauma. He notes he had a difficult time sleeping last night secondary to the pain. He notes the pain is worse with palpation and with movement. He denies any fever or chills. Denies any nausea, vomiting or diaphoresis. States he is not on any blood thinners. Nursing Notes were reviewed. Limitations to history: None Outside historians: None REVIEW OF SYSTEMS Review of Systems 14 systems reviewed, positives and pertinent negatives as per HPI. All other systems were reviewed and are negative. PAST MEDICAL HISTORY No past medical history on file. SURGICAL HISTORY No past surgical history on file. CURRENT MEDICATIONS Discharge Medication List as of 08/11/2024 3:57 PM ALLERGIES Patient has no known allergies. FAMILY HISTORY No family history on file. SOCIAL HISTORY Social History Socioeconomic History Marital status: Single Social Drivers of Health Transportation Needs: No Transportation Needs (10/02/2022) Received from [facility] OASIS A1250: Transportation Lack of Transportation (Medical): No Lack of Transportation (Non-Medical): No Patient Unable or Declines to Respond: No SCREENINGS HEART Score History: Slightly suspicious ECG: Normal Age: 65+ Risk Factors: 1-2 risk factors Troponin: Less than or equal to normal limit HEART Score: 3 PHYSICAL EXAM ED Triage Vitals Temp Pulse Resp BP -- -- -- -- SpO2 Temp src Heart Rate Source Patient Position -- -- -- -- BP Location FiO2 (%) -- -- Physical Exam Vitals and nursing note reviewed. Constitutional: General: He is not in acute distress. Appearance: He is well-developed. He is not ill-appearing. HENT: Head: Normocephalic and atraumatic. Eyes: Conjunctiva/sclera: Conjunctivae normal. Cardiovascular: Rate and Rhythm: Normal rate and regular rhythm. Heart sounds: No murmur heard. Pulmonary: Effort: Pulmonary effort is normal. No respiratory distress. Breath sounds: Normal breath sounds. No decreased breath sounds, wheezing or rhonchi. Chest: Chest wall: Tenderness (Right anterior lateral chest with palpation and movement) present. Abdominal: Palpations: Abdomen is soft. Tenderness: There is no abdominal tenderness. Musculoskeletal: General: No swelling. Cervical back: Neck supple. Right lower leg: No tenderness. No edema. Left lower leg: No tenderness. No edema. Skin: General: Skin is warm and dry. Capillary Refill: Capillary refill takes less than 2 seconds. Neurological: Mental Status: He is alert. Psychiatric: Mood and Affect: Mood normal. DIAGNOSTIC RESULTS RADIOLOGY (Per Emergency Physician): Interpretation per the Radiologist below, if available at the time of this note: XR chest 1 view Final Result No radiographic evidence of acute cardiopulmonary process. Report Dictated on Electronically Signed By: Anastasia Solis MD Electronically Signed Date/Time: 08/11/2024 12:16 PM EDT LABS: Labs Reviewed BASIC METABOLIC PANEL - Abnormal Result Value SODIUM 143 POTASSIUM 4.7 CHLORIDE 108 (*) CARBON DIOXIDE 26 UREA NITROGEN 12 CREATININE 0.80 GLUCOSE 105 CALCIUM 9.2 ANION GAP 9 eGFR >90.0 CBC WITH AUTO DIFFERENTIAL - Abnormal Auto WBC 8.5 RBC 5.23 Hemoglobin 16.3 Hematocrit 47.6 MCV 91.0 MCH 31.2 MCHC 34.2 RDW 14.0 Platelets 239 MPV 10.0 nRBC 0.0 Neutrophils Relative 65.1 Lymphocytes Relative 23.0 Monocytes Relative 6.4 Eosinophils Relative 3.4 Basophils Relative 0.8 Immature Grans % 1.3 Neutrophils Absolute 5.6 Lymphocytes Absolute 2.0 Monocytes Absolute 0.6 Eosinophils Absolute 0.3 Basophils Absolute 0.1 Immature Grans Absolute 0.1 (*) HIGH SENSITIVITY TROPONIN, SERIAL BASELINE - Normal Troponin HS Serial Baseline 3 D-DIMER,QUANTITATIVE - Normal D-DIMER, INNOVANCE 0.46 Narrative: Innovance D-Dimer values of <0.50 mg/L FEU can be used in combination with a pre-test probability model (e.g. Well's) to exclude pulmonary embolism (PE) disease, as well as an aid in the diagnosis of deep vein thrombosis (DVT). HIGH SENSITIVITY TROPONIN, SERIAL, SECOND TEST - Normal 2h Troponin HS (Serial 2nd Troponin) 4 All other labs were within normal range or not returned as of this dictation. EMERGENCY DEPARTMENT COURSE and DIFFERENTIAL DIAGNOSIS/MDM: Vitals: Vitals: 08/11/24 1125 08/11/24 1506 BP: 118/82 130/87 BP Location: Right arm Patient Position: Sitting Pulse: 75 82 Resp: 16 18 Temp: 36.5 C (97.7 F) TempSrc: Temporal SpO2: 94% 97% Medications morphine injection 4 mg (4 mg IntraVENous Given 08/11/24 1214) ondansetron (Zofran) injection 4 mg (4 mg IntraVENous Given 08/11/24 1213) ketorolac (Toradol) injection 15 mg (15 mg IntraVENous Given 08/11/24 1450) ED care was supervised by Dr. Romano who independently examined and evaluated the patient. Please see their attestation note for further details. In brief, Maryse Mak is a 69 y.o. male who presented to the emergency department for evaluation of chest pain and shortness of breath worsened over the past 1 to 2 days. Endorses PMH of cardiac stent placement, flail chest. Presents to the ED hemodynamically stable completely normal vital signs, 94% on room air. He notes the pain is reproducible with palpation and with movement, this is also appreciated on exam. Nursing notes and medical records reviewed. Initial medical management includes morphine, Zofran Initial workup includes CBC, BMP, troponin, chest x-ray, EKG Upon reassessment patient is resting company in the chair no acute distress, vitals remained unremarkable throughout ED course. Lab workup results CBC shows no significant leukocytosis or anemia. BMP shows no electrolyte derangement or KP. D-dimer within normal range. Troponin is 3, delta troponin is 4. See Aleksany for EKG interpretation by attending Imaging results per radiology chest x-ray shows no acute cardiopulmonary process. HEART score is 3-4 I estimate there is LOW risk for (including but not limited to) ACUTE CORONARY SYNDROME, PULMONARY EMBOLISM, PNEUMOTHORAX, RUPTURED ESOPHAGUS OR THORACIC AORTIC DISSECTION, thus I consider the discharge disposition reasonable. Maryse Parisa (or their surrogate) and I have discussed the diagnosis and risks, and we agree with discharging home with close follow-up. We also discussed returning to the Emergency Department immediately if new or worsening symptoms occur. We have discussed the symptoms which are most concerning that necessitate immediate return. Diagnosis: chest wall pain Disposition: discharge Prescriptions provided: naproxen Discussed ED return precautions, recommended consulting their primary doctor or returning to the ED if there are any new or worsening of symptoms, particularly fever, chills, radiating chest pain, SOB, N/V, diaphoresis Follow-up with PCP in 1 week PROCEDURES: Unless otherwise noted below, none Procedures FINAL IMPRESSION 1. Chest wall pain DISPOSITION Discharge 08/11/2024 02:53:14 PM PATIENT REFERRED TO: [facility] EMERGENCY DEPT [address] [place] [phone] Go to If symptoms worsen Sae Jaimes MD [address] [phone] Schedule an appointment as soon as possible for a visit in 1 week DISCHARGE MEDICATIONS: Discharge Medication List as of 08/11/2024 3:57 PM START taking these medications Details naproxen (Naprosyn) 500 MG tablet Take 1 tablet (500 mg) by mouth 2 times daily (with meals) for 7 days., Starting Wed08/11/2024, Until Wed08/18/2024, Normal (Comment: Please note this report has been produced using speech recognition software and may contain errors related to that system including errors in grammar, punctuation, and spelling, as well as words and phrases that may be inappropriate. If there are any questions or concerns please feel free to contact the dictating provider for clarification.) Becca Campa PA-C (electronically signed) Emergency Medicine Provider Becca Campa PA-C 08/11/24 1559 Cosigned by Surjit Romano DO at 08/11/2024 7:20 PM EDT [facility] 05-31-2024 Note [facility] [address] (11) [facility] [address] [facility] [phone] Maryse Mak is a 69 y.o. 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 Review of Systems There were no vitals taken for this visit. Imaging: No results found. 1. Arthritis of hip Return in about 3 months (around 08/29/2024), or if symptoms worsen or fail to improve. Mariela Morgan MD AUTHENTICATED BY MARIELA MORGAN, [place] 05/31/2024 10:02:17 [facility] 05-31-2024 History of Present illness Narrative [facility] [address] (11) [facility] [address] [facility] [phone] Maryse Mak is a 69 y.o. 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 Review of Systems There were no vitals taken for this visit. Imaging: No results found. 1. Arthritis of hip Return in about 3 months (around 08/29/2024), or if symptoms worsen or fail to improve. Mariela Morgan MD documented in this encounter [facility] 05-12-2024 Evaluation + Plan note Associated Problem(s): CAD (coronary artery disease) Reviewed. [facility] 05-12-2024 Miscellaneous Notes Associated Problem(s): CAD (coronary artery disease) Reviewed. documented in this encounter [facility] 05-12-2024 Note [address] [facility] [address] [facility] [id number] Subjective: Maryse Mak is a 69 y.o. male seen in the office today for Chief Complaint Patient presents with Follow-up ED 04/29 CP -no complaints Recent ER visit reviewed. Troponins all negative. EKG stable. Chest pain and back pain resolved to some extent chronic back pain follows with pain clinic. 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 Surgery per CTS reviewed and 2022. Floating ribs reviewed on CT scan. Per CTS surgery. Prominent cardiac impulse noted. Consistent with previous surgery. Blood pressure controlled. No pedal edema lungs are clear no carotid bruits. Was seen by vascular surgery and jessica left carotid apparently stable compared to carotid Doppler 2 and half years ago. No signs of any heart failure arrhythmia no angina. Chest pain consistent with musculoskeletal type pain resolved. No changes encouraged him to stick with present medications occluding atorvastatin. History of some noncompliance with medications discussed smoking cessation. See back in 6 months. 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 11/2021. Coronary artery bypass graft times 2 with left internal mammary artery to left anterior descending artery and right internal mammary artery to the distal right coronary artery He has a long-standing history of hypertension, hyperlipidemia, profound tobacco abuse Assessment & Plan: Reviewed CAD (coronary artery disease) Reviewed. Histories: Past Medical History: Diagnosis Date Alcohol abuse 06/19/2019 Arthritis Chronic back pain Chronic obstructive pulmonary disease (HCC) 02/07/2024 Clotting disorder ([facility]) DVT Cocaine abuse ([facility]) 10/28/2017 Coronary artery disease moderate stenosis of LAD and mild plaque in other vessels Homeless 06/19/2019 Hyperlipidemia Hypertension Tobacco dependence 04/29/2020 Past Surgical History: Procedure Laterality Date BACK SURGERY BRING BACK OPEN HEART N/A 08/19/2022 Procedure: STERNAL WOUND EXPLORATION; Surgeon: Wood Eng MD; Location: Main OR; Service: Cardiothoracic CABG W/ RADIAL ARTERY HARVEST N/A 11/20/2021 Procedure: CORONARY ARTERY BYPASS GRAFT X2 AND LEFT AND RIGHT INTERNAL MAMMARY ARTERY GRAFTS; Surgeon: Wood Eng MD; Location: Main OR; Service: Cardiothoracic CARDIAC CATHETERIZATION N/A 11/07/2021 Procedure: Coronary Angiogram; Surgeon: Minoo Grimm MD; Location: [employer]; Service: Cardiovascular CV IR INTERVENTIONAL RADIOLOGY N/A 09/01/2022 Procedure: VR Aspiration Sternal seroma; Surgeon: Florencio Chambers MD; Location: IR LAB; Service: Interventional Radiology HC LEFT HEART CATH N/A 11/07/2021 Procedure: Left Heart Cath; Surgeon: Minoo Grimm MD; Location: [employer]; Service: Cardiovascular left arm leg sx right and left blood clots Bilateral 2009 in [facility] SHOULDER SURGERY STERNAL WIRING N/A 08/06/2022 Procedure: STERNAL INTERNAL FIXATION WITH PLATING AND SCREWS; Surgeon: Wood Eng MD; Location: Main OR; Service: Cardiothoracic Family History Problem Relation Age of Onset Heart disease Father Heart attack Father Heart attack Maternal Uncle Heart disease Maternal Uncle Social History Tobacco Use Smoking status: Every Day Current packs/day: 0.50 Average packs/day: 0.5 packs/day for 45.0 years (22.5 ttl pk-yrs) Types: Cigarettes Passive exposure: Past Smokeless tobacco: Never Vaping Use Vaping status: Never Used Substance Use Topics Alcohol use: Not Currently Drug use: Not Currently Types: Cocaine Patient's Medications New Prescriptions No medications on file Previous Medications ASPIRIN 81 MG EC TABLET Take 1 (one) tablet (81 mg total) by mouth daily . ATORVASTATIN (LIPITOR) 40 MG TABLET Take 1 (one) tablet (40 mg total) by mouth daily . GABAPENTIN (NEURONTIN) 800 MG TABLET Take 1 (one) tablet (800 mg total) by mouth 3 (three) times a day . HYDROCODONE-ACETAMINOPHEN (NORCO) 7.5-325 MG PER TABLET Take 1 (one) tablet by mouth every 6 (six) hours as needed for pain . NIFEDIPINE (ADALAT CC) 30 MG 24 HR TABLET Take 1 (one) tablet (30 mg total) by mouth daily . Modified Medications No medications on file Discontinued Medications BACLOFEN (LIORESAL) 10 MG TABLET Take 2 (two) tablets (20 mg total) by mouth 3 (three) times a day for 5 days . CLONIDINE HCL (CATAPRES) 0.2 MG TABLET Take 1 (one) tablet (0.2 mg total) by mouth 2 (two) times a day . CYCLOBENZAPRINE (FLEXERIL) 10 MG TABLET Take 1 tablet p.o. twice daily as needed muscle spasm/pain. . EPINEPHRINE (EPIPEN) 0.3 MG/0.3 ML ATIN Inject 0.3 mL (0.3 mg total) into the (more content not included)... [facility] 05-12-2024 History of Present illness Narrative [address] [address] [facility] [address] [facility] [id number] Subjective: Maryse Mak is a 69 y.o. male seen in the office today for Chief Complaint Patient presents with Follow-up ED 04/29 CP -no complaints Recent ER visit reviewed. Troponins all negative. EKG stable. Chest pain and back pain resolved to some extent chronic back pain follows with pain clinic. 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 Surgery per CTS reviewed and 2022. Floating ribs reviewed on CT scan. Per CTS surgery. Prominent cardiac impulse noted. Consistent with previous surgery. Blood pressure controlled. No pedal edema lungs are clear no carotid bruits. Was seen by vascular surgery and jessica left carotid apparently stable compared to carotid Doppler 2 and half years ago. No signs of any heart failure arrhythmia no angina. Chest pain consistent with musculoskeletal type pain resolved. No changes encouraged him to stick with present medications occluding atorvastatin. History of some noncompliance with medications discussed smoking cessation. See back in 6 months. 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 11/2021. Coronary artery bypass graft times 2 with left internal mammary artery to left anterior descending artery and right internal mammary artery to the distal right coronary artery He has a long-standing history of hypertension, hyperlipidemia, profound tobacco abuse Assessment & Plan: Reviewed CAD (coronary artery disease) Reviewed. Histories: Past Medical History: Diagnosis Date Alcohol abuse 06/19/2019 Arthritis Chronic back pain Chronic obstructive pulmonary disease (HCC) 02/07/2024 Clotting disorder (HCC) DVT Cocaine abuse (HCC) 10/28/2017 Coronary artery disease moderate stenosis of LAD and mild plaque in other vessels Homeless 06/19/2019 Hyperlipidemia Hypertension Tobacco dependence 04/29/2020 Past Surgical History: Procedure Laterality Date BACK SURGERY BRING BACK OPEN HEART N/A 08/19/2022 Procedure: STERNAL WOUND EXPLORATION; Surgeon: Wood Eng MD; Location: [facility]; Service: Cardiothoracic CABG W/ RADIAL ARTERY HARVEST N/A 11/20/2021 Procedure: CORONARY ARTERY BYPASS GRAFT X2 AND LEFT AND RIGHT INTERNAL MAMMARY ARTERY GRAFTS; Surgeon: Wood Eng MD; Location: Main OR; Service: Cardiothoracic CARDIAC CATHETERIZATION N/A 11/07/2021 Procedure: Coronary Angiogram; Surgeon: Minoo Grimm MD; Location: [employer]; Service: Cardiovascular CV IR INTERVENTIONAL RADIOLOGY N/A 09/01/2022 Procedure: VR Aspiration Sternal seroma; Surgeon: Florencio Chambers MD; Location: IR LAB; Service: Interventional Radiology HC LEFT HEART CATH N/A 11/07/2021 Procedure: Left Heart Cath; Surgeon: Minoo Grimm MD; Location: [employer]; Service: Cardiovascular left arm leg sx right and left blood clots Bilateral 2009 in [facility] SHOULDER SURGERY STERNAL WIRING N/A 08/06/2022 Procedure: STERNAL INTERNAL FIXATION WITH PLATING AND SCREWS; Surgeon: Wood Eng MD; Location: Main OR; Service: Cardiothoracic Family History Problem Relation Age of Onset Heart disease Father Heart attack Father Heart attack Maternal Uncle Heart disease Maternal Uncle Social History Tobacco Use Smoking status: Every Day Current packs/day: 0.50 Average packs/day: 0.5 packs/day for 45.0 years (22.5 ttl pk-yrs) Types: Cigarettes Passive exposure: Past Smokeless tobacco: Never Vaping Use Vaping status: Never Used Substance Use Topics Alcohol use: Not Currently Drug use: Not Currently Types: Cocaine Patient's Medications New Prescriptions No medications on file Previous Medications ASPIRIN 81 MG EC TABLET Take 1 (one) tablet (81 mg total) by mouth daily . ATORVASTATIN (LIPITOR) 40 MG TABLET Take 1 (one) tablet (40 mg total) by mouth daily . GABAPENTIN (NEURONTIN) 800 MG TABLET Take 1 (one) tablet (800 mg total) by mouth 3 (three) times a day . HYDROCODONE-ACETAMINOPHEN (NORCO) 7.5-325 MG PER TABLET Take 1 (one) tablet by mouth every 6 (six) hours as needed for pain . NIFEDIPINE (ADALAT CC) 30 MG 24 HR TABLET Take 1 (one) tablet (30 mg total) by mouth daily . Modified Medications No medications on file Discontinued Medications BACLOFEN (LIORESAL) 10 MG TABLET Take 2 (two) tablets (20 mg total) by mouth 3 (three) times a day for 5 days . CLONIDINE HCL (CATAPRES) 0.2 MG TABLET Take 1 (one) tablet (0.2 mg total) by mouth 2 (two) times a day . CYCLOBENZAPRINE (FLEXERIL) 10 MG TABLET Take 1 tablet p.o. twice daily as needed muscle spasm/pain. . EPINEPHRINE (EPIPEN) 0.3 MG/0.3 ML ATIN Inject 0.3 mL (0.3 mg total) into the mid-thigh as needed for severe allergic reaction. . FAMOTIDINE (PEPCID) 20 MG TABLET Take 1 (one) tablet (20 mg total) by mouth 2 (two) times a day for 7 days . FLUTICASONE PROPIONATE (FLONASE) 50 MCG/ACTUATION NASAL SPRAY Instill 2 (two) sprays into each nostril daily . KETOROLAC (TORADOL) 10 MG TABLET Take 1 (one) tablet (10 mg total) by mouth 3 (three) times a day as needed for pain . LOSARTAN (COZAAR) 25 MG TABLET Take 1 (one) tablet (25 mg total) by mouth 2 (two) times a day . METOPROLOL SUCCINATE (TOPROL-XL) 25 MG 24 HR TABLET Take 0.5 (one-half) tablet (12.5 mg total) by mouth 2 (two) times a day . MONTELUKAST (SINGULAIR) 10 MG TABLET Take 1 (one) tablet (10 mg total) by mouth nightly for 7 days . ROSUVASTATIN (CRESTOR) 5 MG TABLET Take 1 (one) tablet (5 mg total) by mouth nightly . TIOTROPIUM-OLODATEROL (STIOLTO) 2.5-2.5 MCG/ACTUATION MIST RESPIMAT INHALER Inhale 2 (two) puffs daily . UMECLIDINIUM-VILANTEROL 62.5-25 MCG/ACTUATION DSDV Inhale 1 puff daily . Allergies Allergen Reactions Felix Inhibitors Swelling Atorvastatin Other (See Comments) ACHE ALL OVER. Review of Systems Constitutional: Negative for malaise/fatigue. Cardiovascular: Negative for chest pain, dyspnea on exertion, leg swelling and palpitations. Neurological: Negative for dizziness. Objective: Physical Exam Constitutional: General: He is not in acute distress. Appearance: Normal appearance. He is not ill-appearing, toxic-appearing or diaphoretic. HENT: Head: Normocephalic and atraumatic. Nose: Nose normal. Mouth/Throat: Mouth: Mucous membranes are moist. Pharynx: Oropharynx is clear. Eyes: General: No scleral icterus. Extraocular Movements: Extraocular movements intact. Conjunctiva/sclera: Conjunctivae normal. Pupils: Pupils are equal, round, and reactive to light. Pulmonary: Effort: Pulmonary effort is normal. Musculoskeletal: General: No swelling. Cervical back: Normal range of motion and neck supple. 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 Postop Prominent cardiac impulse. Stable Skin: General: Skin is warm and dry. Capillary Refill: Capillary refill takes less than 2 seconds. Neurological: General: No focal deficit present. Mental Status: He is alert and oriented to person, place, and time. Mental status is at baseline. Psychiatric: Mood and Affect: Mood normal. Behavior: Behavior normal. Thought Content: Thought content normal. Judgment: Judgment normal. Vitals: Vitals: 05/12/24 0810 BP: 135/82 BP Location: Left arm Patient Position: Sitting BP Cuff Size: X-large Adult Pulse: 71 SpO2: 93% Weight: 97.1 kg (214 lb) Height: 6' Body mass index is 29.02 kg/m . No orders of the defined types were placed in this encounter. Follow Up Ordered: Return in about 6 months (around 11/10/2024). Jeremy Segovia MD Review of Systems Constitutional: Negative for malaise/fatigue. Cardiovascular: Negative for chest pain, dyspnea on exertion, leg swelling and palpitations. Neurological: Negative for dizziness. documented in this encounter [facility] 05-09-2024 Instructions Tia Wililam MA - 05/09/2024 8:09 AM EST How to Contact your Care Team: Provider: Dr. Jeremy Segovia MD [employer] Aide: Paula BETTENCOURT machine assistant: Tia documented in this encounter [facility] 04-19-2024 Telephone encounter Note Could you print this off so I can send to [facility] please? [facility] 04-19-2024 Miscellaneous Notes Could you print this off so I can send to [facility] please? documented in this encounter [facility] 02-14-2024 Note [facility] [address]) [facility] [address] [facility] [phone] Marysemiguel Mak is a 69 y.o. male being seen today, 02/14/24, Chief Complaint Patient presents with Right Hip - Pain DISCUSS INJ [chief complaint] right hip pain HPI Dictation: Man is DJD of his right hip which intra-articular injections in the past that helped substantially has been 3 months or more since his last injection he like to schedule another injection [hpi] Physical Exam Dictation: [PE] right anterior thigh groin pain increased with passive range of the involved Assessment and Plan Dictation: [AP] plan will arrange intra-articular hip injection return in 3 months or as needed I have reviewed all relevant histories, medications, allergies, and problem list items with Maryse B Parisa during this visit. Review of Systems Constitutional: Negative for chills and fever. HENT: Negative for congestion. Respiratory: Negative for shortness of breath. Cardiovascular: Negative for chest pain. Gastrointestinal: Negative for diarrhea, nausea and vomiting. Neurological: Negative for headaches. Psychiatric/Behavioral: Negative for behavioral problems. Ht 6' Wt 99.8 kg (220 lb) BMI 29.84 kg/m Imaging: No results found. 1. Primary osteoarthritis of right hip Return in about 3 months (around 05/15/2024), or if symptoms worsen or fail to improve. Mariela Morgan MD AUTHENTICATED BY MARIELA MORGAN, ON 02/14/2024 09:55:18 [facility] 02-07-2024 Note [facility] [address] [facility] [address] [place] [address] Name: Maryse Mak Age: 69 y.o. : 1955 Today's date: 02/07/24 Outpatient Pulmonary Follow-up Note CC: Shortness of breath HPI: Mr. Maryse Mak is a smoker with COPD, chronic bronchitis and prior COVID-19 infection who presents for follow-up evaluation after more than 1 year absence from pulmonary clinic. He is complaining of shortness of breath with limitation of his activities. He feels his breathing has gotten worse since his last visit but he attributes it to humidity. He coughs all the time but denies sputum production, wheezing, fever, chills, night sweats, hemoptysis, chest pain, chest tightness, nasal symptoms, GERD symptoms, dysphagia or unintended weight loss. He states he has poor sleep but attributes this to musculoskeletal pain, particularly hip pain. Currently he is on no pulmonary medications. He previously took Trelegy as needed. But had financial constraints that prevented him from getting the medication regularly. He did feel the medication was beneficial. His last pulmonary function testing was done 10/2021 and revealed mild airway obstruction with improvement in the FEV1 with administration of bronchodilators. He continues to smoke half a pack of cigarettes per day. He has smoked up to 2 packs of cigarettes per day and has been a smoker for 58 years. His most recent CT chest was done 11/2022 and the results are as below. As noted, he has a history of COVID-19. He states his symptoms were mild but did not help his breathing. He states he or shingles. He does not get regular flu shots. Review of Systems Constitutional: Negative for activity change, appetite change and unexpected weight change. HENT: Negative for ear pain and voice change. Cardiovascular: Negative for palpitations and leg swelling. Gastrointestinal: Negative for abdominal distention, abdominal pain, nausea and vomiting. Endocrine: Negative for cold intolerance and heat intolerance. Musculoskeletal: Positive for arthralgias. Negative for back pain, joint swelling and myalgias. Skin: Negative for rash. Neurological: Negative for tremors, seizures, speech difficulty, weakness, light-headedness and numbness. Hematological: Does not bruise/bleed easily. Psychiatric/Behavioral: Negative for confusion. The patient is not nervous/anxious. Past Medical History: Diagnosis Date Alcohol abuse 06/19/2019 Arthritis Chronic back pain Chronic obstructive pulmonary disease (HCC) 02/07/2024 Clotting disorder (HCC) DVT Cocaine abuse (HCC) 10/28/2017 Coronary artery disease moderate stenosis of LAD and mild plaque in other vessels Homeless 06/19/2019 Hyperlipidemia Hypertension Tobacco dependence 04/29/2020 Past Surgical History: Procedure Laterality Date BACK SURGERY BRING BACK OPEN HEART N/A 08/19/2022 Procedure: STERNAL WOUND EXPLORATION; Surgeon: Wood Eng MD; Location: Main OR; Service: Cardiothoracic CABG W/ RADIAL ARTERY HARVEST N/A 11/20/2021 Procedure: CORONARY ARTERY BYPASS GRAFT X2 AND LEFT AND RIGHT INTERNAL MAMMARY ARTERY GRAFTS; Surgeon: Wood Eng MD; Location: Main OR; Service: Cardiothoracic CARDIAC CATHETERIZATION N/A 11/07/2021 Procedure: Coronary Angiogram; Surgeon: Minoo Grimm MD; Location: [employer]; Service: Cardiovascular CV IR INTERVENTIONAL RADIOLOGY N/A 09/01/2022 Procedure: VR Aspiration Sternal seroma; Surgeon: Florencio Chambers MD; Location: IR LAB; Service: Interventional Radiology HC LEFT HEART CATH N/A 11/07/2021 Procedure: Left Heart Cath; Surgeon: Minoo Grimm MD; Location: [employer]; Service: Cardiovascular left arm leg sx right and left blood clots Bilateral 2009 in [facility] SHOULDER SURGERY STERNAL WIRING N/A 08/06/2022 Procedure: STERNAL INTERNAL FIXATION WITH PLATING AND SCREWS; Surgeon: Wood Eng MD; Location: Main OR; Service: Cardiothoracic Family History Problem Relation Age of Onset Heart disease Father Heart attack Father Heart attack Maternal Uncle Heart disease Maternal Uncle Social History Tobacco Use Smoking status: Every Day Current packs/day: 0.50 Average packs/day: 0.5 packs/day for 45.0 years (22.5 ttl pk-yrs) Types: Cigarettes Passive exposure: Past Smokeless tobacco: Never Vaping Use Vaping status: Never Used Substance Use Topics Alcohol use: Not Currently Drug use: Not Currently Types: Cocaine Tobacco & Smokeless: Tobacco Use Smoking status: Every Day Packs/day: 0.50 Years: 0.5 packs/day for 45.0 years (22.5 ttl pk-yrs) Types: Cigarettes Passive exposure: Past Smokeless tobacco: Never Objective: Outpatient Medications as of 02/07/2024 Medication Sig cyclobenzaprine (FLEXERIL) 10 MG tablet Take 1 tablet p.o. twice daily as needed muscle spasm/pain. . EPINEPHrine (EPIPEN) 0.3 (more content not included)... [facility] 02-07-2024 History of Present illness Narrative [address] [address] [facility] [address] [address] Name: Maryse Mak Age: 69 y.o. : 1955 Today's date: 02/07/24 Outpatient Pulmonary Follow-up Note CC: Shortness of breath HPI: Mr. Maryse Mak is a smoker with COPD, chronic bronchitis and prior COVID-19 infection who presents for follow-up evaluation after more than 1 year absence from pulmonary clinic. He is complaining of shortness of breath with limitation of his activities. He feels his breathing has gotten worse since his last visit but he attributes it to humidity. He coughs all the time but denies sputum production, wheezing, fever, chills, night sweats, hemoptysis, chest pain, chest tightness, nasal symptoms, GERD symptoms, dysphagia or unintended weight loss. He states he has poor sleep but attributes this to musculoskeletal pain, particularly hip pain. Currently he is on no pulmonary medications. He previously took Trelegy as needed. But had financial constraints that prevented him from getting the medication regularly. He did feel the medication was beneficial. His last pulmonary function testing was done 10/2021 and revealed mild airway obstruction with improvement in the FEV1 with administration of bronchodilators. He continues to smoke half a pack of cigarettes per day. He has smoked up to 2 packs of cigarettes per day and has been a smoker for 58 years. His most recent CT chest was done 11/2022 and the results are as below. As noted, he has a history of COVID-19. He states his symptoms were mild but did not help his breathing. He states he or shingles. He does not get regular flu shots. Review of Systems Constitutional: Negative for activity change, appetite change and unexpected weight change. HENT: Negative for ear pain and voice change. Cardiovascular: Negative for palpitations and leg swelling. Gastrointestinal: Negative for abdominal distention, abdominal pain, nausea and vomiting. Endocrine: Negative for cold intolerance and heat intolerance. Musculoskeletal: Positive for arthralgias. Negative for back pain, joint swelling and myalgias. Skin: Negative for rash. Neurological: Negative for tremors, seizures, speech difficulty, weakness, light-headedness and numbness. Hematological: Does not bruise/bleed easily. Psychiatric/Behavioral: Negative for confusion. The patient is not nervous/anxious. Past Medical History: Diagnosis Date Alcohol abuse 06/19/2019 Arthritis Chronic back pain Chronic obstructive pulmonary disease (HCC) 02/07/2024 Clotting disorder ([facility]) DVT Cocaine abuse ([facility]) 10/28/2017 Coronary artery disease moderate stenosis of LAD and mild plaque in other vessels Homeless 06/19/2019 Hyperlipidemia Hypertension Tobacco dependence 04/29/2020 Past Surgical History: Procedure Laterality Date BACK SURGERY BRING BACK OPEN HEART N/A 08/19/2022 Procedure: STERNAL WOUND EXPLORATION; Surgeon: Wood Eng MD; Location: Main OR; Service: Cardiothoracic CABG W/ RADIAL ARTERY HARVEST N/A 11/20/2021 Procedure: CORONARY ARTERY BYPASS GRAFT X2 AND LEFT AND RIGHT INTERNAL MAMMARY ARTERY GRAFTS; Surgeon: Wood Eng MD; Location: Main OR; Service: Cardiothoracic CARDIAC CATHETERIZATION N/A 11/07/2021 Procedure: Coronary Angiogram; Surgeon: Minoo Grimm MD; Location: [employer]; Service: Cardiovascular CV IR INTERVENTIONAL RADIOLOGY N/A 09/01/2022 Procedure: VR Aspiration Sternal seroma; Surgeon: Florencio Chambers MD; Location: IR LAB; Service: Interventional Radiology HC LEFT HEART CATH N/A 11/07/2021 Procedure: Left Heart Cath; Surgeon: Minoo Grimm MD; Location: [employer]; Service: Cardiovascular left arm leg sx right and left blood clots Bilateral 2009 in [facility] SHOULDER SURGERY STERNAL WIRING N/A 08/06/2022 Procedure: STERNAL INTERNAL FIXATION WITH PLATING AND SCREWS; Surgeon: Wood Eng MD; Location: Main OR; Service: Cardiothoracic Family History Problem Relation Age of Onset Heart disease Father Heart attack Father Heart attack Maternal Uncle Heart disease Maternal Uncle Social History Tobacco Use Smoking status: Every Day Current packs/day: 0.50 Average packs/day: 0.5 packs/day for 45.0 years (22.5 ttl pk-yrs) Types: Cigarettes Passive exposure: Past Smokeless tobacco: Never Vaping Use Vaping status: Never Used Substance Use Topics Alcohol use: Not Currently Drug use: Not Currently Types: Cocaine Tobacco & Smokeless: Tobacco Use Smoking status: Every Day Packs/day: 0.50 Years: 0.5 packs/day for 45.0 years (22.5 ttl pk-yrs) Types: Cigarettes Passive exposure: Past Smokeless tobacco: Never Objective: Outpatient Medications as of 02/07/2024 Medication Sig cyclobenzaprine (FLEXERIL) 10 MG tablet Take 1 tablet p.o. twice daily as needed muscle spasm/pain. . EPINEPHrine (EPIPEN) 0.3 mg/0.3 mL AtIn Inject 0.3 mL (0.3 mg total) into the mid-thigh as needed for severe allergic reaction. . famotidine (PEPCID) 20 MG tablet Take 1 (one) tablet (20 mg total) by mouth 2 (two) times a day for 7 days . gabapentin (NEURONTIN) 800 MG tablet Take 1 (one) tablet (800 mg total) by mouth 3 (three) times a day . losartan (COZAAR) 25 MG tablet Take 1 (one) tablet (25 mg total) by mouth 2 (two) times a day . metoprolol succinate (TOPROL-XL) 25 MG 24 hr tablet Take 0.5 (one-half) tablet (12.5 mg total) by mouth 2 (two) times a day . rosuvastatin (CRESTOR) 5 MG tablet Take 1 (one) tablet (5 mg total) by mouth nightly . cloNIDine HCL (CATAPRES) 0.2 MG tablet Take 1 (one) tablet (0.2 mg total) by mouth 2 (two) times a day . (Patient not taking: Reported on 02/07/2024 .) fluticasone propionate (FLONASE) 50 mcg/actuation nasal spray Instill 2 (two) sprays into each nostril daily . (Patient not taking: Reported on 02/07/2024 .) montelukast (SINGULAIR) 10 mg tablet Take 1 (one) tablet (10 mg total) by mouth nightly for 7 days . (Patient not taking: Reported on 02/07/2024 .) umeclidinium-vilanteroL 62.5-25 mcg/actuation DsDv Inhale 1 puff daily . Allergies Allergen Reactions Atorvastatin Other (See Comments) ACHE ALL OVER. Vitals: 02/07/24 1407 BP: 131/86 BP Location: Left arm Patient Position: Sitting BP Cuff Size: Adult Pulse: 78 Resp: 16 Temp: 100.1 F (37.8 C) SpO2: 96% Weight: 99.8 kg (220 lb) Height: 6' from IP Vitals Flowsheet Physical Exam: Vitals reviewed Physical Exam Constitutional: General: He is not in acute distress. Appearance: Normal appearance. He is not toxic-appearing. HENT: Head: Normocephalic and atraumatic. Eyes: General: No scleral icterus. Extraocular Movements: Extraocular movements intact. Cardiovascular: Rate and Rhythm: Normal rate and regular rhythm. Pulses: Normal pulses. Heart sounds: Normal heart sounds. Pulmonary: Effort: Pulmonary effort is normal. Breath sounds: Normal breath sounds. Abdominal: General: Abdomen is flat. Bowel sounds are normal. Palpations: Abdomen is soft. Musculoskeletal: General: No swelling or tenderness. Skin: General: Skin is dry. Findings: No rash. Neurological: General: No focal deficit present. Mental Status: He is alert and oriented to person, place, and time. Psychiatric: Mood and Affect: Mood normal. Behavior: Behavior normal. PFT Results PFT Pre-bronchodilator 11/07/21 1628 FVC PREDICTED 4.99 FVC PRE 4.34 FVC % PRE PREDICTED 87 FVC PRE Z-SCORE FEV1 PREDICTED 3.74 FEV1 PRE 2.72 FEV1 % PRE PREDICTED 73 FEV1 PRE Z-SCORE FEV1/FVC PREDICTED 75 FEV1/FVC PRE 63 FEV1/FVC % PRE PREDICTED 84 FEV1/FVC PRE Z-SCORE FEF25/75 PREDICTED FEF25/75 ACTUAL PRE-BD FEF25/75 PRE % PREDICTED DMQ21-41 PRE Z-SCORE PEAK FLOW PREDICTED PEAK FLOW ACTUAL PRE-BD PEAK FLOW PRE % PREDICTED SLOW VITAL CAPACITY PREDICTED SLOW VITAL CAPACITY SLOW VITAL CAPACITY % PREDICTED SLOW VITAL CAPACITY PRE Z-SCORE PFT Post-bronchodilator 11/07/21 1628 FVC POST 4.53 FVC % POST PREDICTED 91 FVC % CHANGE 4 FVC POST Z-SCORE FEV1 POST 3.02 FEV1 % POST PREDICTED 81 FEV1 % CHANGE 11 FEV1 POST Z-SCORE FEV1/FVC POST 67 FEV1/FVC % POST PREDICTED 89 FEV1/FVC % CHANGE 6 FEV1/FVC POST Z-SCORE FEF25/75 ACTUAL POST-BD FEF25/75 POST % PREDICTED FEF25/75 % CHANGE TVP22-84 POST Z-SCORE PEAK FLOW ACTUAL POST-BD PEAK FLOW POST % PREDICTED PEAK FLOW % CHANGE PFT Lung Volumes 11/07/21 1628 TLC 9.35 (% predicted) 132 RV 5.01 (% predicted) 194 PFT Diffusion 11/07/21 1628 DLCO PRE 26 DLCO % PRE PREDICTED 23.5 DLCO/VA PRE 3.72 DLCO/VA % PRE PREDICTED 103 DLCO UNCORRECTED FOR HEMOGLOBIN PREDICTED DLCO UNCORRECTED FOR HEMOGLOBIN DLCO UNCORRECTED FOR HEMOGLOBIN % PREDICTED DLCO UNCORRECTED FOR HEMOGLOBIN PRE Z-SCORE DLCO CORRECTED FOR HEMOGLOBIN PREDICTED DLCO CORRECTED FOR HEMOGLOBIN DLCO CORRECTED FOR HEMOGLOBIN % PREDICTED DLCO CORRECTED FOR HEMOGLOBIN PRE Z-SCORE KCO PREDICTED KCO PRE KCO % PRE PREDICTED KCO PRE Z-SCORE Imaging: CT PULMONARY ARTERIES 11/27/2023 HISTORY: ORDERING SYSTEM PROVIDED HISTORY: chest pain, TECHNOLOGIST PROVIDED HISTORY: Illness/Other Reason for exam: mid chest pain, hx of open heart Encounter Type: Initial Additional signs and symptoms: ORDERING SYSTEM PROVIDED DIAGNOSIS CODES: COMPARISON: CT chest dated 08/31/2022. TECHNIQUE: Routine CTA pulmonary arteries with intravenous contrast. Dose reduction techniques were achieved by using automated exposure control and/or adjustment of mA and/or kV according to patient size and/or use of iterative reconstruction technique. FINDINGS: There is contrast within the pulmonary arteries. The pulmonary trunk is upper limits of normal size measuring 2.9 cm. There is no pulmonary embolus. The heart size is upper limits of normal. There are multi-vessel coronary artery calcifications. There is mild aortic valvular calcification. There is mild atheromatous plaque along the thoracic and imaged portions of the proximal abdominal aorta. The ascending thoracic aorta is normal size measuring 3.7 cm (series 4, image 48). Mild dependent atelectasis. There is no consolidation or infiltrates. There is no pleural effusion. There are no suspicious masses or nodules within the chest. There is no pneumothorax. There is a stable 1.8 x 1.4 cm right hilar lymph node which most likely is reactive. The axillary and mediastinal lymph nodes are not pathologically enlarged. The trachea, esophagus and thyroid gland are unremarkable. There is fatty infiltration of the liver. Stable 1.9 cm hypodense lesion within the liver at the dome measuring 7 Hounsfield units which most commonly represents a cyst. There is a median sternotomy. The complex fluid collection within the inferior aspect of the sternotomy is smaller measuring 7.5 x 6.5 x 3.3 cm in longitudinal, transverse and AP dimensions (series 4, image 64 and sagittal image 69). The associated osseous changes are stable. The ununited fractures of the lateral aspect of the left 3rd, 4th, 5th, 6th and 7th ribs are stable. IMPRESSION: There is no pulmonary embolus. Multi-vessel coronary artery calcifications and mild aortic valvular calcification There is no consolidation. Stable 1.8 x 1.4 cm right hilar lymph node which most likely is reactive. Fatty infiltration of the liver with a stable 1.9 cm cyst within the liver at the dome. There is a median sternotomy. The complex fluid collection within the inferior aspect of the sternotomy is smaller measuring 7.5 x 6.5 x 3.3 cm in longitudinal, transverse and AP dimensions (series 4, image 64 and sagittal image 69). Stable ununited fractures of the lateral aspect of the left 3rd, 4th, 5th, 6th and 7th ribs. Cardiology summary from ECHO 11/07/21 Summary 1. Left ventricular chamber dimension is normal. 2. Left ventricular systolic function is normal with an ejection fraction by Biplane Method of Discs of 70 %. 3. The left ventricular diastolic function is normal. 4. Right ventricular chamber dimension is borderline enlarged. 5. There is mild aortic valve sclerosis. 6. The proximal ascending aorta is dilated measuring 4.0 cm with an index of 1.8 cm/m2. Assessment and Plan: ICD-10-CM ICD-9-CM 1. Chronic obstructive pulmonary disease, unspecified COPD type (HCC) J44.9 496 PFT spirometry pre and post bronchodilator 2. Simple chronic bronchitis (HCC) J41.0 491.0 3. Shortness of breath R06.02 786.05 4. Nicotine dependence, cigarettes, uncomplicated F17.[address] 305[address] Lung Cancer Screening 5. Personal history of COVID-19 Z86.16 V12.09 1. Shortness of breath in a smoker with COPD, simple chronic bronchitis and prior COVID-19 infection-will give patient trial of a LABA/LAMA. He was given samples of Stiolto in clinic as he has some financial constraints preventing him from getting his medication for the next 2 weeks. Will prescribe Anoro once daily in accordance with patient's formulary information in EMR. Patient instructed on the appropriate technique for use of the inhaler device. Additionally, patient was counseled regarding importance of compliance with medication. Recheck PFTs. 2. Cigarette/nicotine dependence/patient was counseled for more than 3 minutes regarding the importance of smoking cessation and possible adverse effects of continued tobacco use. He qualifies for annual lung screening CT scans of the chest. He was counseled regarding the importance of screening and agrees to have a scan as recommended so it has been ordered for him. 3. Appropriate immunizations were reviewed and recommended. 4. He will be scheduled for follow-up appointment in this clinic in approximately 2 months with a screening CT scan of the chest and spirometry. Jacquelyn Hannon MD documented in this encounter [facility] 01-21-2024 Hospital Discharge instructions Follow Up Care 01/21/2024 10:06:14 With:Paulette CARBALLO CNP Address: [address] [place] [id number]- When:Within 1 Month(s) [facility] 01-20-2024 Note [facility] Medical Records Department [address] [place] [address] Discharge Summary 01/20/24 1546 MR#: [id number] Acct: [id number] Name: MARYSE MAK Rep #: [id number] : 1955 68 From: Bari Crisostomo MD PCP: PAULETTE CARBALLO Status:ADM PETER Location: [place] [address] Providers Date of Admission: 01/19/24 Date of Discharge: 01/20/24 Primary Care Physician: PAULETTE CARBALLO Consultations 01/19/24 16:49 Consult: Tele-Neurology Routine Consulting Provider: [facility] Reason for Consult: Acute Ischemic Stroke/TIA EMERGENT Consult: No MD Notified: Yes Date Notified: 01/19/24 Time Notified: 15:36 Method of Notification: Answering Service Nursing Unit Staff Notify [facility] of Tele-Neurology Consult: Yes 01/20/24 10:10 Consult: Vascular Surgery Routine Consulting Provider: Florencio Leigh Reason for Consult: NEAR 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 Dizziness/vertigo EMERGENT Consult: No Notified: Yes Date Notified: 01/20/24 Time Notified: 10:10 Method of Notification: Text Reason For Visit: DIZZINESS AND VERTIGO Diagnosis Discharge Diagnosis (1) Dizziness: Status: Acute Code(s): R42 - Dizziness and giddiness Plan 68-year-old gentleman came to ED for dizziness and lightheadedness, vertigo since Wednesday. He also gets off balance. Dizziness is worse with the movement. Mild nausea but no vomiting. Patient has history of coronary artery status post two-vessel CABG, bilateral peripheral artery disease status post vascular surgery possible femoropopliteal bypass and carotid stenosis. #Dizziness and vertigo, possible BPV: Patient was admitted in PCU as an observation. Dizziness vertigo possible due to BPPV. CT of the head and neck showed severe atherosclerotic plaque formation at the origin of the left internal carotid artery with near complete occlusions with this could be the etiology of his dizziness and vertigo. Carotid Doppler was done and reviewed by Dr. Florencio Leigh was also consulted. He said it is moderate to stenosis. He is cleared for the discharge. MRI brain was done and does not show acute ischemia or infarct. Patient on baby aspirin continued. Fasting lipid profile shows high triglyceride and patient discharged on atorvastatin 40 mg nightly, prescription given. Patient was evaluated by teleneurology. Echo is done not reported. Stroke protocol was followed with, permissive hypertension range, PT OT and speech evaluation. Glucose 115. As per PT does not need further skilled therapy. Patient was educated about vestibular therapy. Follow-up with ENT as an outpatient. 2. Peripheral artery disease with moderate carotid sclerosis right ICA: Follow-up with vascular surgeon Dr. Senior in the office. Rest as mentioned above. Patient also has bilateral popliteal artery atherosclerosis and probably had bilateral femoropopliteal surgery with surgical scar. #History of CAD s/p CABG x 2: * This was about 3 to 4 years ago. * Patient states he is taking himself off all his medications because he feels like he is not doing anything for him. * It is documented that he is on aspirin so we will continue aspirin. * Counseled to follow-up with his wort extractor for reevaluation and for his medications to be resumed as needed. * #Elevated blood pressure: * Blood pressure elevated in the 140s and 150s systolic. Patient not known hypertensive. Not taking currently antihypertensive medication. * Permissive hypertension protocol was followed. * Last BP 126/82 heart rate 59/min. Advised home BP monitoring or ambulatory BP monitoring in consultation with PCP to further diagnose hypertension #DVT prophylaxis: Lovenox CODE STATUS: Full code * Patient counseled extensively about different types of CODE STATUS including full code, DNR CCA and DNR CCA. * Patient elects to be full code. Discharge medication reconciliation done. Discharge follow-up instructions completed. Discharge process discussed with the patient and all questions were answered to patient's satisfaction. Follow with PCP in 1 to 2 weeks Total time spent, exact 35 minutes on discharge meds reconciliation, examination, coordination of care with nurses and ancillary staff, review of imaging and blood test and discussion with the patient on follow-up instructions. Laboratory Results 01/20/24 07:05: WBC 6.3, RBC 5.00, Hgb 15.2, Hct 46.3, MCV 92.6, MCH 30.4, MCHC 32.8 D, RDW Std Deviation 43.8, RDW Coeff of Tierra 13.1, Plt Count 202, MPV 10.3, Immature Gran % (Auto) 0.800, Neut % (Auto) 62.3, Lymph % (Auto) 24.4, Mellette % (Auto) 7.8, Eos % (Auto) 4.1, Baso % (Auto) 0.6, Absolute Neuts (auto) 3.9, Absolute Lymphs (auto) 1.54, Nucleated RBC % 0, Sodium 141, Potassium 4.2, C hloride 110 H, Carbon Dioxide 28.0, Anion Gap 3 L, BUN 13, Creatinine 1.04, Estim Creat Clear Calc 85.42, Est GFR (MDRD) Af Amer 92, Est GFR (MDRD) Non (more content not included)... [facility] 11-08-2023 History of Present illness Narrative [facility] [address] (11) [facility] [address] [facility] [id number] Maryse Mak is a 68 y.o. male being seen today, 11/08/23, Chief Complaint Patient presents with Right Hip - Pain [chief complaint] right hip HPI Dictation: This man has DJD of his right hip previous intra-articular injections but marked benefit he had 1 elsewhere greater than 3 months ago with limited response he like to have another injection performed our institution [hpi] Physical Exam Dictation: [PE] anterior thigh groin increased with passive range of motion Assessment and Plan Dictation: [AP] arrange intra-articular hip injection right I will see him 2 weeks postinjection I have reviewed all relevant histories, medications, allergies, and problem list items with Maryse Mak during this visit. Review of Systems Constitutional: Negative for chills and fever. HENT: Negative for congestion. Respiratory: Negative for shortness of breath. Cardiovascular: Negative for chest pain. Gastrointestinal: Negative for diarrhea, nausea and vomiting. Neurological: Negative for headaches. Psychiatric/Behavioral: Negative for behavioral problems. There were no vitals taken for this visit. Imaging: No results found. 1. Arthritis of hip Return in about 3 months (around 02/08/2024), or if symptoms worsen or fail to improve. Mariela Morgan MD documented in this encounter [facility] 09-27-2023 Hospital Discharge instructions Follow Up Care 09/27/2023 14:49:59 With:Paulette CARBALLO CNP Address: [address] [place] [id number]- When:Within 1 Month(s) [facility] 09-22-2023 Hospital Discharge instructions Follow Up Care 09/22/2023 08:16:04 With:Paulette CARBALLO CNP Address: [address] [place] [id number]- When: Unknown [facility] 05-04-2023 Hospital Discharge instructions Follow Up Care 05/04/2023 12:45:31 With:Vanessa Mcrae DO, FAM Address: When:Within 6 Month(s) [facility] 01-11-2023 Hospital Discharge instructions Patient Education 01/11/2023 11:19:47 Steps to Quit Smoking, Omey-cf-Sofu Steps to Quit Smoking Smoking tobacco is the leading cause of preventable . It can affect almost every organ in the body. Smoking puts you and people around you at risk for many serious, long-lasting (chronic) diseases. Quitting smoking can be hard, but it is one of the best things that you can do for your health. It is never too late to quit. Do not give up if you cannot quit the first time. Some people need to try many times to quit. Do your best to stick to your quit plan, and talk with your doctor if you have any questions or concerns. How do I get ready to quit? Pick a date to quit. Set a date within the next 2 weeks to give you time to prepare. Write down the reasons why you are quitting. Keep this list in places where you will see it often. Tell your family, friends, and co-workers that you are quitting. Their support is important. Talk with your doctor about the choices that may help you quit. Find out if your health insurance will pay for these treatments. Know the people, places, things, and activities that make you want to smoke (triggers). Avoid them. What first steps can I take to quit smoking? Throw away all cigarettes at home, at work, and in your car. Throw away the things that you use when you smoke, such as ashtrays and lighters. Clean your car. Empty the ashtray. Clean your home, including curtains and carpets. What can I do to help me quit smoking? Talk with your doctor about taking medicines and seeing a counselor. You are more likely to succeed when you do both. If you are or : Talk with your doctor about counseling or other ways to quit smoking. Do not take medicine to help you quit smoking unless your doctor tells you to. Quit right away Quit smoking completely, instead of slowly cutting back on how much you smoke over a period of time. Stopping smoking right away may be more successful than slowly quitting. Go to counseling. In-person is best if this is an option. You are more likely to quit if you go to counseling sessions regularly. Take medicine You may take medicines to help you quit. Some medicines need a prescription, and some you can buy [id number]. Some medicines may contain a drug called nicotine to replace the nicotine in cigarettes. Medicines may: Help you stop having the desire to smoke (cravings). Help to stop the problems that come when you stop smoking (withdrawal symptoms). Your doctor may ask you to use: Nicotine patches, gum, or lozenges. Nicotine inhalers or sprays. Non-nicotine medicine that you take by mouth. Find resources Find resources and other ways to help you quit smoking and remain smoke-free after you quit. They include: Online chats with a counselor. Phone quitlines. Printed self-help materials. Support groups or group counseling. Text messaging programs. Mobile phone apps. Use apps on your mobile phone or tablet that can help you stick to your quit plan. Examples of free services include Quit Guide from the CDC and smokefree.gov What can I do to make it easier to quit? Talk to your family and friends. Ask them to support and encourage you. Call a phone quitline, such as 4-656-QWBD-NOW, reach out to support groups, or work with a counselor. Ask people who smoke to not smoke around you. Avoid places that make you want to smoke, such as: ?Bars. ?Parties. ?Smoke-break areas at work. Spend time with people who do not smoke. Lower the stress in your life. Stress can make you want to smoke. Try these things to lower stress: ?Getting regular exercise. ?Doing deep-breathing exercises. ?Doing yoga. ?Meditating. What benefits will I see if I quit smoking? Over time, you may have: A better sense of smell and taste. Less coughing and sore throat. A slower heart rate. Lower blood pressure. Clearer skin. Better breathing. Fewer sick days. Summary Quitting smoking can be hard, but it is one of the best things that you can do for your health. Do not give up if you cannot quit the first time. Some people need to try many times to quit. When you decide to quit smoking, make a plan to help you succeed. Quit smoking right away, not slowly over a period of time. When you start quitting, get help and support to keep you smoke-free. This information is not intended to replace advice given to you by your health care provider. Make sure you discuss any questions you have with your health care provider. Document Revised: 04/24/2022 Document Reviewed: 04/24/2022 [employer] Patient Education 2022 [employer] 01/11/2023 11:19:44 Obesity, Adult, Lfzr-so-Iypm Obesity, Adult Obesity is having too much body fat. Being obese means that your weight is more than what is healthy for you. BMI (body mass index) is a number that explains how much body fat you have. If you have a BMI of 30 or more, you are obese. Obesity can cause serious health problems, such as: Stroke. Coronary artery disease (CAD). Type 2 diabetes. Some types of cancer. High blood pressure (hypertension). High cholesterol. Gallbladder stones. Obesity can also contribute to: Osteoarthritis. Sleep apnea. Infertility problems. What are the causes? Eating meals each day that are high in calories, sugar, and fat. Drinking a lot of drinks that have sugar in them. Being born with genes that may make you more likely to become obese. Having a medical condition that causes obesity. Taking certain medicines. Sitting a lot (having a sedentary lifestyle). Not getting enough sleep. What increases the risk? Having a family history of obesity. Living in an area with limited access to: ?[place], recreation centers, or sidewalks. ?Healthy food choices, such as grocery stores and [employer] markets. What are the signs or symptoms? The main sign is having too much body fat. How is this treated? Treatment for this condition often includes changing your lifestyle. Treatment may include: Changing your diet. This may include making a healthy meal plan. Exercise. This may include activity that causes your heart to beat faster (aerobic exercise) and strength training. Work with your doctor to design a program that works for you. Medicine to help you lose weight. This may be used if you are not able to lose one pound a week after 6 weeks of healthy eating and more exercise. Treating conditions that cause the obesity. Surgery. Options may include gastric banding and gastric bypass. This may be done if: ?Other treatments have not helped to improve your condition. ?You have a BMI of 40 or higher. ?You have life-threatening health problems related to obesity. Follow these instructions at home: Eating and drinking Follow advice from your doctor about what to eat and drink. Your doctor may tell you to: ?Limit fast food, sweets, and processed snack foods. ?Choose low-fat options. For example, choose low-fat milk instead of whole milk. ?Eat five or more servings of fruits or vegetables each day. ?Eat at home more often. This gives you more control over what you eat. ?Choose healthy foods when you eat out. ?Learn to read food labels. This will help you learn how much food is in one serving. ?Keep low-fat snacks available. ?Avoid drinks that have a lot of sugar in them. These include soda, fruit juice, iced tea with sugar, and flavored milk. Drink enough water to keep your pee (urine) pale yellow. Do not go on fad diets. Physical activity Exercise often, as told by your doctor. Most adults should get up to 150 minutes of moderate-intensity exercise every week.Ask your doctor: ?What types of exercise are safe for you. ?How often you should exercise. Warm up and stretch before being active. Do slow stretching after being active (cool down). Rest between times of being active. Lifestyle Work with your doctor and a food expert (dietitian) to set a weight-loss goal that is best for you. Limit your screen time. Find ways to reward yourself that do not involve food. Do not drink alcohol if: ?Your doctor tells you not to drink. ?You are , may be , or are planning to become . If you drink alcohol: ?Limit how much you have to: ?0 1 drink a day for women. ?0 2 drinks a day for men. ?Know how much alcohol is in your drink. In the [place] one drink equals one 12 oz bottle of beer (355 mL), one 5 oz glass of wine (148 mL), or one 1 oz glass of hard liquor (44 mL). General instructions Keep a weight-loss journal. This can help you keep track of: ?The food that you eat. ?How much exercise you get. Take [id number] and prescription medicines only as told by your doctor. Take vitamins and supplements only as told by your doctor. Think about joining a support group. Pay attention to your mental health as obesity can lead to depression or self esteem issues. Keep all follow-up visits. Contact a doctor if: You cannot meet your weight-loss goal after you have changed your diet and lifestyle for 6 weeks. You are having trouble breathing. Summary Obesity is having too much body fat. Being obese means that your weight is more than what is healthy for you. Work with your doctor to set a weight-loss goal. Get regular exercise as told by your doctor. This information is not intended to replace advice given to you by your health care provider. Make sure you discuss any questions you have with your health care provider. Document Revised: 12/09/2021 Document Reviewed: 12/09/2021 [employer] Patient Education 2022 [employer]. Follow Up Care 01/27/2022 13:21:18 With:Paulette CARBALLO CNP Address: [address] [place] [address]- When:Within 6 Month(s) [facility] 12-11-2022 Evaluation + Plan note Associated Problem(s): Disruption of closure of sternum or sternotomy, subsequent encounter Call to make an appointment with pulmonology to get refill on inhalers Do not lift more than 20 pounds We will refer you to pain management for additional pain control options. [facility] 12-11-2022 Miscellaneous Notes Associated Problem(s): Disruption of closure of sternum or sternotomy, subsequent encounter Call to make an appointment with pulmonology to get refill on inhalers Do not lift more than 20 pounds We will refer you to pain management for additional pain control options. documented in this encounter [facility] 12-11-2022 History of Present illness Narrative Images from the original note were not included. Cardiothoracic Surgery Clinic Follow-up Heart & Vascular [facility] 12/11/2022 Julio C Zheng PA-C [address] [place] [address] Medical Office [facility] [id number] Patient: Maryse Mak Date of : 1955 (67 y.o.) PCP: Paulette Carballo, JAYLEN Assessment & Plan Disruption of closure of sternum or sternotomy, subsequent encounter Call to make an appointment with pulmonology to get refill on inhalers Do not lift more than 20 pounds We will refer you to pain management for additional pain control options. Follow-up: No follow-ups on file. Chief Complaint: Follow-up Subjective History of Present Illness: Maryse Mak is a 67 y.o. male who is well known to our practice. In summary, Mr. Mak had a complicated course in regards to sternotomy healing after undergoing CABG x2 on 11/20/[address] Nathan Eng. During the initial postoperative course, he experienced acute left hemithorax requiring the insertion of chest tube. As a result of persistent coughing as well as impulsive behavior and poor sternal precautions, he experienced nonunion of the sternum. He ultimately required sternal rewiring with plating on August 06, [address] Nathan Eng. Thereafter, sternal wound reexploration, removal of inferior plating and screws, excision of distal 10% of sternum and limited myocutaneous flap on August 19, [address] Nathan Eng. He developed an anterior chest wall fluid collection after his procedure on August 19, 2022. He was readmitted back to the hospital and underwent ultrasound-guided insertion of a percutaneous drain catheter on September 01, 2022 with interventional radiology, Dr. Chambers. Per the orders of Dr. Nathan Eng, removal of anterior percutaneous drain on 09/14/2022 is performed. Patient was fitted with a chest binder as well as direct anterior compression to the previous fluid collection site with absorbent padding (rolled cotton hospital washcloths) and was advised at that time to maintain compression until his next follow-up appointment, per orders of Dr. Eng. He was last seen in follow up on 09/28/22 at which time he appeared to have recovered well and cardiothoracic surgery signed off. He called in on 12/08/22 to report that he has had increased left chest wall pain over the prior week. 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 He states that this pain started after picking up his grandchildren who have been staying with him. He has also been lifting some heavy boxes lately. The pain is sharp and is worse with coughing, deep breathing, and palpation. He says it started on the left side of his ribcage and is also in the left pectoral region. We had sent him prescription for 5 days of Toradol PRN and he says he doesn't feel that the toradol helped at all but today the pain is much better. We had also recommended he wear the chest binder for this week for additional support. I believe this pain is likely due to his ongoing ununited fractures of left ribs 3-7 as well as muscle strain from heavy lifting. He is also concerned that his anterior chest wall appears asymmetrical. Upon exam there does appear to be slight asymmetry, however I explained that this is likely due to the partial sternectomy and limited myocutaneous flap which Dr. Eng performed after sternal nonunion. The area does not appear to be raised, erythematous, or fluctuant and CT scan reveals diminished size of the fluid collection. Sternum is stable with firm palpation. At this time, I recommend follow up with interventional pain management for ongoing pain control options. Mr. Mak was initially hesitant to try a pain specialist as he says I've had injections before and they don't work however I implored him to at least attend an initial consultation and hear what other options are available. As he also stated he ran out of his inhalers, I encouraged him to make a follow up appointment with pulmonology to get those refilled. I also instructed him to avoid heavy lifting for the next few weeks to allow muscle strain to heal. CT scan, images, and plan reviewed with Dr. Eng and he is in agreement of the above. Cardiothoracic surgery will again sign off. Objective Tobacco Use Smoking Status Every Day Packs/day: 0.50 Years: 45.00 Total pack years: 22.50 Types: Cigarettes Smokeless Tobacco Never Tobacco cessation not discussed today ECG 12 Lead Final Result by Meka Aldana MD (11/26/2022 0355) Echocardiogram complete w contrast Final Result by Lee Taylor MD (11/07/2021 1444) Stress test only, exercise Final Result by Eunice Rodriguez MD (05/30/2018 1056) Cardiac Catheterization Final Result by Minoo Grimm MD (11/07/2021 1050) HOME Medications: Patient's Medications New Prescriptions No medications on file Previous Medications FLUTICASONE PROPIONATE (FLONASE) 50 MCG/ACTUATION NASAL SPRAY Instill 2 (two) sprays into each nostril daily . GABAPENTIN (NEURONTIN) 800 MG TABLET Take 1 (one) tablet (800 mg total) by mouth 3 (three) times a day . KETOROLAC (TORADOL) 10 MG TABLET Take 1 (one) tablet (10 mg total) by mouth every 6 (six) hours as needed for pain . LISINOPRIL (PRINIVIL,ZESTRIL) 30 MG TABLET Take 1 (one) tablet (30 mg total) by mouth once daily . LOSARTAN (COZAAR) 25 MG TABLET Take 1 (one) tablet (25 mg total) by mouth 2 (two) times a day . METOPROLOL SUCCINATE (TOPROL-XL) 25 MG 24 HR TABLET Take 0.5 (one-half) tablet (12.5 mg total) by mouth 2 (two) times a day . ROSUVASTATIN (CRESTOR) 5 MG TABLET Take 1 (one) tablet (5 mg total) by mouth nightly . Modified Medications No medications on file Discontinued Medications No medications on file Vital Signs: BP 122/79 (BP Location: Right arm, Patient Position: Sitting) Pulse 70 Temp 98.1 F (36.7 C) Wt 105.8 kg (233 lb 3.2 oz) SpO2 97% BMI 31.63 kg/m Physical Exam Vitals reviewed. Constitutional: General: He is not in acute distress. Appearance: Normal appearance. He is not diaphoretic. HENT: Head: Normocephalic and atraumatic. Nose: Nose normal. Mouth/Throat: Mouth: Mucous membranes are moist. Eyes: Extraocular Movements: Extraocular movements intact. Cardiovascular: Rate and Rhythm: Normal rate and regular rhythm. Pulses: Normal pulses. Heart sounds: Normal heart sounds. No murmur heard. No friction rub. No gallop. Pulmonary: Effort: Pulmonary effort is normal. No respiratory distress. Breath sounds: Normal breath sounds. No wheezing, rhonchi or rales. Chest: Comments: Slight asymmetry to left distal aspect of sternum Abdominal: General: Abdomen is flat. There is no distension. Tenderness: There is no abdominal tenderness. Musculoskeletal: General: Normal range of motion. Right lower leg: No edema. Left lower leg: No edema. Skin: General: Skin is warm and dry. Capillary Refill: Capillary refill takes less than 2 seconds. Findings: No bruising, erythema, lesion or rash. Neurological: General: No focal deficit present. Mental Status: He is alert and oriented to person, place, and time. Psychiatric: Mood and Affect: Mood normal. Behavior: Behavior normal. Labs: I personally reviewed and interpreted the labs documented below. Lab Results Component Value Date CHOL 144 09/10/2022 LDLCALC 67 09/10/2022 TRIG 210 (H) 09/10/2022 HDL 35 (L) 09/10/2022 Creatinine clearance cannot be calculated (Patient's most recent lab result is older than the maximum 14 days allowed.) documented in this encounter [facility] 12-11-2022 Instructions Julio C Zheng PA-C - 12/11/2022 11:44 AM EDT Call to make an appointment with pulmonology to get refill on inhalers Do not lift more than 20 pounds We will refer you to pain management for additional pain control options. documented in this encounter [facility] 09-28-2022 History of Present illness Narrative Images from the original note were not included. Cardiothoracic Surgery Clinic Follow-up Heart & Vascular [facility] 09/28/2022 Babita Valdez PA-C [address] [place] [address] Medical Office [facility] [phone] Patient: Maryse Mak Date of : 1955 (67 y.o.) PCP: PAULETTE CARBALLO CNP Assessment & Plan Fluid collection at surgical site Assessment: Maryse Mak is a 67-year-old male who is well-known to this practice and is seen today for scheduled routine follow-up and evaluation of anterior chest wall fluid collection requiring insertion of percutaneous drain catheter on September 01, [address] Florencio Chambers, with subsequent removal by CT surgery on 09/14/2022. Mr. Mak continues to smoke with history of alcohol abuse, DVT, PVD, substance abuse with cocaine, CAD, chronic back pain, HTN and CAD. Mr. Mak states he is not experiencing any further edema, erythema, calor nor obvious fluid collection in the anterior chest. He has not been wearing his chest binder. Palpation of the anterior chest does not reveal the aforementioned findings. It is nontender with palpation, sternum is stable. His chest x-ray reveals cardiomediastinal contours are stable. No pneumothorax, pneumomediastinum, or pleural effusion is identified. Chronic fracture deformities of the lateral left ribs again noted. No focal consolidation, overt pulmonary edema, or other infiltrative pulmonary process is identified. Partially imaged is posterior fusion hardware in the lumbar spine. Lungs are well-expanded. Plan: At this time, I have advised Mr. Mak that at this time, it would appear that there is no obvious fluid collection in the anterior chest. I have advised Mr. Mak to not hesitate to contact our services should any changes such as erythema, edema, calor or any other concerning symptoms occur. At this time, cardiac surgery will be signing off. Patient verbalizes understanding of same and agrees with the aforementioned plan. Follow-up: No follow-ups on file. Chief Complaint: No chief complaint on file. Objective Tobacco Use Smoking Status Every Day Packs/day: 0.50 Years: 45.00 Pack years: 22.50 Types: Cigarettes Smokeless Tobacco Never Vaping Use Vaping Use: Never used Tobacco cessation discussed today EKG 12-lead Final Result by Interface, Lab Results In [facility] (06/21/2022 1934) Echocardiogram complete w contrast Final Result by Lee Taylor MD (11/07/2021 1444) Stress test only, exercise Final Result by Eunice Rodriguez MD (05/30/2018 1056) Cardiac Catheterization Final Result by Minoo Grimm MD (11/07/2021 1050) HOME Medications: Patient's Medications New Prescriptions No medications on file Previous Medications FLUTICASONE PROPIONATE (FLONASE) 50 MCG/ACTUATION NASAL SPRAY Instill 2 (two) sprays into each nostril daily . [id number] (TRELEGY ELLIPTA) 200-62.5-25 MCG DSDV Inhale 1 (one) Inhalation daily . GABAPENTIN (NEURONTIN) 800 MG TABLET Take 1 (one) tablet (800 mg total) by mouth 3 (three) times a day . LISINOPRIL (PRINIVIL,ZESTRIL) 30 MG TABLET Take 1 (one) tablet (30 mg total) by mouth once daily . LOSARTAN (COZAAR) 25 MG TABLET Take 1 (one) tablet (25 mg total) by mouth 2 (two) times a day . METOPROLOL SUCCINATE (TOPROL-XL) 25 MG 24 HR TABLET Take 0.5 (one-half) tablet (12.5 mg total) by mouth 2 (two) times a day . NICOTINE POLACRILEX (NICORETTE) 4 MG GUM Apply 1 (one) each (4 mg total) to the mouth or throat as needed for smoking cessation . ROSUVASTATIN (CRESTOR) 5 MG TABLET Take 1 (one) tablet (5 mg total) by mouth nightly . Modified Medications No medications on file Discontinued Medications PANTOPRAZOLE (PROTONIX) 40 MG TABLET Take 1 (one) tablet (40 mg total) by mouth daily . Vital Signs: BP 118/75 (BP Location: Left arm, Patient Position: Sitting) Pulse 75 Temp 97.6 F (36.4 C) (Oral) Ht 6' Wt 108 kg (238 lb) SpO2 94% BMI 32.28 kg/m Physical Exam Constitutional: General: He is not in acute distress. Appearance: Normal appearance. He is not ill-appearing, toxic-appearing or diaphoretic. HENT: Head: Normocephalic and atraumatic. Nose: Nose normal. Mouth/Throat: Mouth: Mucous membranes are moist. Pharynx: Oropharynx is clear. Eyes: General: No scleral icterus. Extraocular Movements: Extraocular movements intact. Conjunctiva/sclera: Conjunctivae normal. Pupils: Pupils are equal, round, and reactive to light. Pulmonary: Effort: Pulmonary effort is normal. Musculoskeletal: General: No swelling. Cervical back: Normal range of motion and neck supple. Skin: General: Skin is warm and dry. Capillary Refill: Capillary refill takes less than 2 seconds. Neurological: General: No focal deficit present. Mental Status: He is alert and oriented to person, place, and time. Mental status is at baseline. Psychiatric: Mood and Affect: Mood normal. Behavior: Behavior normal. Thought Content: Thought content normal. Judgment: Judgment normal. Labs: I personally reviewed and interpreted the labs documented below. Lab Results Component Value Date CHOL 144 09/10/2022 LDLCALC 67 09/10/2022 TRIG 210 (H) 09/10/2022 HDL 35 (L) 09/10/2022 Creatinine clearance cannot be calculated (Patient's most recent lab result is older than the maximum 14 days allowed.) documented in this encounter [facility] 09-28-2022 Evaluation + Plan note Associated Problem(s): Fluid collection at surgical site Images from the original note were not included. Assessment: Maryse Mak is a 67-year-old male who is well-known to this practice and is seen today for scheduled routine follow-up and evaluation of anterior chest wall fluid collection requiring insertion of percutaneous drain catheter on September 01, [address] Florencio Chambers, with subsequent removal by CT surgery on 09/14/2022. Mr. Mak continues to smoke with history of alcohol abuse, DVT, PVD, substance abuse with cocaine, CAD, chronic back pain, HTN and CAD. Mr. Mak states he is not experiencing any further edema, erythema, calor nor obvious fluid collection in the anterior chest. He has not been wearing his chest binder. Palpation of the anterior chest does not reveal the aforementioned findings. It is nontender with palpation, sternum is stable. His chest x-ray reveals cardiomediastinal contours are stable. No pneumothorax, pneumomediastinum, or pleural effusion is identified. Chronic fracture deformities of the lateral left ribs again noted. No focal consolidation, overt pulmonary edema, or other infiltrative pulmonary process is identified. Partially imaged is posterior fusion hardware in the lumbar spine. Lungs are well-expanded. Plan: At this time, I have advised Mr. Mak that at this time, it would appear that there is no obvious fluid collection in the anterior chest. I have advised Mr. Mak to not hesitate to contact our services should any changes such as erythema, edema, calor or any other concerning symptoms occur. At this time, cardiac surgery will be signing off. Patient verbalizes understanding of same and agrees with the aforementioned plan. [facility] 09-28-2022 Miscellaneous Notes Associated Problem(s): Fluid collection at surgical site Images from the original note were not included. Assessment: Maryse Mak is a 67-year-old male who is well-known to this practice and is seen today for scheduled routine follow-up and evaluation of anterior chest wall fluid collection requiring insertion of percutaneous drain catheter on September 01, [address] Florencio Chambers, with subsequent removal by CT surgery on 09/14/2022. Mr. Mak continues to smoke with history of alcohol abuse, DVT, PVD, substance abuse with cocaine, CAD, chronic back pain, HTN and CAD. Mr. Mak states he is not experiencing any further edema, erythema, calor nor obvious fluid collection in the anterior chest. He has not been wearing his chest binder. Palpation of the anterior chest does not reveal the aforementioned findings. It is nontender with palpation, sternum is stable. His chest x-ray reveals cardiomediastinal contours are stable. No pneumothorax, pneumomediastinum, or pleural effusion is identified. Chronic fracture deformities of the lateral left ribs again noted. No focal consolidation, overt pulmonary edema, or other infiltrative pulmonary process is identified. Partially imaged is posterior fusion hardware in the lumbar spine. Lungs are well-expanded. Plan: At this time, I have advised Mr. Mak that at this time, it would appear that there is no obvious fluid collection in the anterior chest. I have advised Mr. Mak to not hesitate to contact our services should any changes such as erythema, edema, calor or any other concerning symptoms occur. At this time, cardiac surgery will be signing off. Patient verbalizes understanding of same and agrees with the aforementioned plan. documented in this encounter [facility] 09-25-2022 mechanical project manager Note Called bekah ent for a visit today. 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 Next visit is scheduled for Wednesday. Patient with understanding. missed visit complete. Physician notified by inbox message. [facility] 09-25-2022 Miscellaneous Notes Called patient for a visit today. 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 Next visit is scheduled for Wednesday. Patient with understanding. missed visit complete. Physician notified by inbox message. documented in this encounter [facility] 09-23-2022 History of Present illness Narrative Patient was seen by home healthcare nurse today in follow-up. He was not wearing his binder with the anterior direct compression as he was instructed to do on previous occassions with the last occasion being only 2 days ago at a follow-up visit. The nurse obtained a photo of his chest and thinks that there is some edema to the left side of his chest. The nurse notified us via [employer] message today. I called Mr. Mak and spoke with him on the phone at this time. He said that he does not think there is any change in his chest in the past 2 days. I asked him if he would be willing to come in for a follow-up visit this week for us to evaluate him. He declined the offer and became upset and said that he would see us next week as scheduled and that he would use the binder with the compression until then. He said after the visit next week, he will no longer use the binder and likely will not be seeing us again because he is getting sick and tired of all of this. He then hung up before I could respond any further. Maryse Melton PA-C documented in this encounter [facility] 09-23-2022 mechanical project manager Note Patient states he has not worn his heart hugger or abdominal binder for the last two days. edema noted to the left side of the chest. Patient put binder on prior to nurse leaving. Photo placed in epic. [facility] 09-23-2022 Miscellaneous Notes Patient states he has not worn his heart hugger or abdominal binder for the last two days. edema noted to the left side of the chest. Patient put binder on prior to nurse leaving. Photo placed in epic. documented in this encounter [facility] 09-21-2022 History of Present illness Narrative Images from the original note were not included. Cardiothoracic Surgery Clinic Follow-up Heart & Vascular [facility] 09/21/2022 Babita Valdez PA-C [address] [place] [id number] Patient: Maryse Mak Date of : 1955 (67 y.o.) PCP: PAULETTE CARBALLO CNP Assessment & Plan Fluid collection at surgical site Assessment: Maryse Mak is a 67-year-old male who is well-known to this practice and is seen today for scheduled routine follow-up and evaluation of anterior chest wall fluid collection requiring insertion of percutaneous drain catheter on September 01, [address] Florencio Chambers, with subsequent removal by CT surgery on 09/14/2022. Mr. Mak continues to smoke with history of alcohol abuse, DVT, PVD, substance abuse with cocaine, CAD, chronic back pain, HTN and CAD. He is referred to pulmonology in regards to chronic cough and is recently been seen in the office by Dr. Armando Page. Brief summary: Mr. Mak has had a complicated course in regards to sternotomy healing after undergoing CABG x2 on 11/20/[address] Nathan Eng. During the initial postoperative course, he experienced acute left hemithorax requiring the insertion of chest tube. As a result of persistent coughing as well as impulsive behavior and poor sternal precautions, he experienced nonunion of the sternum. He ultimately required sternal rewiring with plating on August 06, [address] Nathan Eng. Thereafter, sternal wound reexploration, removal of inferior plating and screws, excision of distal 10% of sternum and limited myocutaneous flap on August 19, [address] Nathan Eng. He developed an anterior chest wall fluid collection after his procedure on August 19, 2022. He was readmitted back to the hospital and underwent ultrasound-guided insertion of a percutaneous drain catheter on September 01, 2022 with interventional radiology, Dr. Chambers. Per the orders of Dr. Nathan Eng, removal of anterior percutaneous drain on 09/14/2022 is performed. Patient was fitted with a chest binder as well as direct anterior compression to the previous fluid collection site with absorbent padding (rolled cotton hospital washcloths) and was advised at that time to maintain compression until his next follow-up appointment, per orders of Dr. Eng. Consequently, Mr. Mak did not present for his scheduled appointment. He is rescheduled today on 09/21/2022 for evaluation which he has attended. Physical examination: He ambulates with a steady gait on his own accord to the examination room. He is sitting in the examination chair, legs in dependent position, no obvious visible acute distress. He is not wearing his chest binder nor the padding for compression. Mr. Mak states he took off the binder and compression for jewish and has not since reapplied it. It should be noted that when he is seen by pulmonology, the patient is noted to be wearing the binder. The previous insertion site of the percutaneous drain appears to be healed. There is no obvious fluctuant mass noted at the site. Bilateral pectoralis do appear somewhat fluctuant, left greater than right. Patient denies pain, calor, erythema nor any other discomforts of the bilateral pectoralis. Patient is in agreement that the left pec has increased in size with edema. Plan: At this time, I have advised Mr. Mak that he will need to continue to wear the abdominal binder with anterior direct compression as previously described. Discussion in regards to potential space and the attempt to reduce that space with compression while he is healing from his last procedure with Dr. Eng. Dr. Eng has reviewed this previously with with the patient his plan. We will follow-up in 1 week with Mr. Mak or sooner should he develop any concerns regarding the anterior chest wall. Patient verbalizes understanding of same and agrees with the aforementioned plan. Follow-up: Return in about 1 week (around 09/28/2022), or 10:30 a,, for Next scheduled follow up. Chief Complaint: Follow-up (Previous sternal drainage evaluation; S/P drain removal 09/14/2022) Objective Tobacco Use Smoking Status Every Day Packs/day: 0.25 Years: 45.00 Pack years: 11.25 Types: Cigarettes Smokeless Tobacco Never Vaping Use Vaping Use: Never used Tobacco cessation discussed today EKG 12-lead Final Result by Interface, Lab Results In [facility] (06/21/2022 1934) Echocardiogram complete w contrast Final Result by Lee Taylor MD (11/07/2021 1444) Stress test only, exercise Final Result by Eunice Rodriguez MD (05/30/2018 1056) Cardiac Catheterization Final Result by Minoo Grimm MD (11/07/2021 1050) HOME Medications: Patient's Medications New Prescriptions No medications on file Previous Medications ACETAMINOPHEN (TYLENOL) 325 MG TABLET Take 2 (two) tablets (650 mg total) by mouth every 6 (six) hours as needed for pain . ASPIRIN 81 MG EC TABLET Take 1 (one) tablet (81 mg total) by mouth daily . DOCUSATE SODIUM (COLACE) 100 MG CAPSULE Take 1 (one) capsule (100 mg total) by mouth daily . FLUTICASONE PROPIONATE (FLONASE) 50 MCG/ACTUATION NASAL SPRAY Instill 2 (two) sprays into each nostril daily . [id number]-KOSLKNUG (TRELEGY ELLIPTA) 200-62.5-25 MCG DSDV Inhale 1 (one) Inhalation daily . GABAPENTIN (NEURONTIN) 800 MG TABLET Take 1 (one) tablet (800 mg total) by mouth 3 (three) times a day . GUAIFENESIN (MUCINEX) 600 MG 12 HR TABLET Take 1 (one) tablet (600 mg total) by mouth every 12 (twelve) hours . LISINOPRIL (PRINIVIL,ZESTRIL) 30 MG TABLET Take 1 (one) tablet (30 mg total) by mouth once daily . LOSARTAN (COZAAR) 25 MG TABLET Take 1 (one) tablet (25 mg total) by mouth 2 (two) times a day . METOPROLOL SUCCINATE (TOPROL-XL) 25 MG 24 HR TABLET Take 0.5 (one-half) tablet (12.5 mg total) by mouth 2 (two) times a day . NICOTINE POLACRILEX (NICORETTE) 4 MG GUM Apply 1 (one) each (4 mg total) to the mouth or throat as needed for smoking cessation . PANTOPRAZOLE (PROTONIX) 40 MG TABLET Take 1 (one) tablet (40 mg total) by mouth daily . ROSUVASTATIN (CRESTOR) 5 MG TABLET Take 1 (one) tablet (5 mg total) by mouth nightly . TAMSULOSIN (FLOMAX) 0.4 MG CAPSULE Take 1 (one) capsule (0.4 mg total) by mouth after evening meal . Modified Medications No medications on file Discontinued Medications No medications on file Vital Signs: BP (!) 125/90 (BP Location: Right leg, Patient Position: Sitting) Pulse 82 Ht 6' Wt 108.9 kg (240 lb) SpO2 95% BMI 32.55 kg/m Physical Exam Constitutional: General: He is not in acute distress. Appearance: He is not ill-appearing, toxic-appearing or diaphoretic. HENT: Head: Normocephalic and atraumatic. Nose: Nose normal. Mouth/Throat: Mouth: Mucous membranes are moist. Pharynx: Oropharynx is clear. Eyes: General: No scleral icterus. Extraocular Movements: Extraocular movements intact. Conjunctiva/sclera: Conjunctivae normal. Pupils: Pupils are equal, round, and reactive to light. Cardiovascular: Rate and Rhythm: Normal rate. Pulmonary: Effort: Pulmonary effort is normal. Musculoskeletal: General: Normal range of motion. Cervical back: Normal range of motion. Skin: General: Skin is warm and dry. Neurological: General: No focal deficit present. Mental Status: He is alert and oriented to person, place, and time. Mental status is at baseline. Psychiatric: Mood and Affect: Mood normal. Behavior: Behavior normal. Thought Content: Thought content normal. Judgment: Judgment normal. Labs: I personally reviewed and interpreted the labs documented below. Lab Results Component Value Date CHOL 144 09/10/2022 LDLCALC 67 09/10/2022 TRIG 210 (H) 09/10/2022 HDL 35 (L) 09/10/2022 Creatinine clearance cannot be calculated (Patient's most recent lab result is older than the maximum 14 days allowed.) documented in this encounter [facility] 09-21-2022 Instructions Babita Valdez PA-C - 09/21/2022 11:22 AM EDT At this time, I have advised Mr. Mak that he will need to continue to wear the abdominal binder with anterior direct compression as previously described. Discussion in regards to potential space and the attempt to reduce that space with compression while he is healing from his last procedure with Dr. Eng. Dr. Eng has reviewed this previously with with the patient his plan. We will follow-up in 1 week with Mr. Mak or sooner should he develop any concerns regarding the anterior chest wall. Patient verbalizes understanding of same and agrees with the aforementioned plan. documented in this encounter [facility] 09-21-2022 Evaluation + Plan note Associated Problem(s): Fluid collection at surgical site Images from the original note were not included. Assessment: Maryse Mak is a 67-year-old male who is well-known to this practice and is seen today for scheduled routine follow-up and evaluation of anterior chest wall fluid collection requiring insertion of percutaneous drain catheter on September 01, [address] Florencio Chambers, with subsequent removal by CT surgery on 09/14/2022. Mr. Mak continues to smoke with history of alcohol abuse, DVT, PVD, substance abuse with cocaine, CAD, chronic back pain, HTN and CAD. He is referred to pulmonology in regards to chronic cough and is recently been seen in the office by Dr. Armando Page. Brief summary: Mr. Mak has had a complicated course in regards to sternotomy healing after undergoing CABG x2 on 11/20/[address] Nathan Eng. During the initial postoperative course, he experienced acute left hemithorax requiring the insertion of chest tube. As a result of persistent coughing as well as impulsive behavior and poor sternal precautions, he experienced nonunion of the sternum. He ultimately required sternal rewiring with plating on August 06, [address] Nathan Eng. Thereafter, sternal wound reexploration, removal of inferior plating and screws, excision of distal 10% of sternum and limited myocutaneous flap on August 19, [address] Nathan Eng. He developed an anterior chest wall fluid collection after his procedure on August 19, 2022. He was readmitted back to the hospital and underwent ultrasound-guided insertion of a percutaneous drain catheter on September 01, 2022 with interventional radiology, Dr. Chambers. Per the orders of Dr. Nathan Eng, removal of anterior percutaneous drain on 09/14/2022 is performed. Patient was fitted with a chest binder as well as direct anterior compression to the previous fluid collection site with absorbent padding (rolled cotton hospital washcloths) and was advised at that time to maintain compression until his next follow-up appointment, per orders of Dr. Eng. Consequently, Mr. Mak did not present for his scheduled appointment. He is rescheduled today on 09/21/2022 for evaluation which he has attended. Physical examination: He ambulates with a steady gait on his own accord to the examination room. He is sitting in the examination chair, legs in dependent position, no obvious visible acute distress. He is not wearing his chest binder nor the padding for compression. Mr. Mak states he took off the binder and compression for jewish and has not since reapplied it. It should be noted that when he is seen by pulmonology, the patient is noted to be wearing the binder. The previous insertion site of the percutaneous drain appears to be healed. There is no obvious fluctuant mass noted at the site. Bilateral pectoralis do appear somewhat fluctuant, left greater than right. Patient denies pain, calor, erythema nor any other discomforts of the bilateral pectoralis. Patient is in agreement that the left pec has increased in size with edema. Plan: At this time, I have advised Mr. Mak that he will need to continue to wear the abdominal binder with anterior direct compression as previously described. Discussion in regards to potential space and the attempt to reduce that space with compression while he is healing from his last procedure with Dr. Eng. Dr. Eng has reviewed this previously with with the patient his plan. We will follow-up in 1 week with Mr. Mak or sooner should he develop any concerns regarding the anterior chest wall. Patient verbalizes understanding of same and agrees with the aforementioned plan. [facility] 09-21-2022 Miscellaneous Notes Associated Problem(s): Fluid collection at surgical site Images from the original note were not included. Assessment: Maryse Mak is a 67-year-old male who is well-known to this practice and is seen today for scheduled routine follow-up and evaluation of anterior chest wall fluid collection requiring insertion of percutaneous drain catheter on September 01, [address] Florencio Chambers, with subsequent removal by CT surgery on 09/14/2022. Mr. Mak continues to smoke with history of alcohol abuse, DVT, PVD, substance abuse with cocaine, CAD, chronic back pain, HTN and CAD. He is referred to pulmonology in regards to chronic cough and is recently been seen in the office by Dr. Armando Page. Brief summary: Mr. Mak has had a complicated course in regards to sternotomy healing after undergoing CABG x2 on 11/20/[address] Nathan Eng. During the initial postoperative course, he experienced acute left hemithorax requiring the insertion of chest tube. As a result of persistent coughing as well as impulsive behavior and poor sternal precautions, he experienced nonunion of the sternum. He ultimately required sternal rewiring with plating on August 06, [address] Nathan Eng. Thereafter, sternal wound reexploration, removal of inferior plating and screws, excision of distal 10% of sternum and limited myocutaneous flap on August 19, [address] Nathan Eng. He developed an anterior chest wall fluid collection after his procedure on August 19, 2022. He was readmitted back to the hospital and underwent ultrasound-guided insertion of a percutaneous drain catheter on September 01, 2022 with interventional radiology, Dr. Chambers. Per the orders of Dr. Nathan Eng, removal of anterior percutaneous drain on 09/14/2022 is performed. Patient was fitted with a chest binder as well as direct anterior compression to the previous fluid collection site with absorbent padding (rolled cotton hospital washcloths) and was advised at that time to maintain compression until his next follow-up appointment, per orders of Dr. Eng. Consequently, Mr. Mak did not present for his scheduled appointment. He is rescheduled today on 09/21/2022 for evaluation which he has attended. Physical examination: He ambulates with a steady gait on his own accord to the examination room. He is sitting in the examination chair, legs in dependent position, no obvious visible acute distress. He is not wearing his chest binder nor the padding for compression. Mr. Mak states he took off the binder and compression for jewish and has not since reapplied it. It should be noted that when he is seen by pulmonology, the patient is noted to be wearing the binder. The previous insertion site of the percutaneous drain appears to be healed. There is no obvious fluctuant mass noted at the site. Bilateral pectoralis do appear somewhat fluctuant, left greater than right. Patient denies pain, calor, erythema nor any other discomforts of the bilateral pectoralis. Patient is in agreement that the left pec has increased in size with edema. Plan: At this time, I have advised Mr. Mak that he will need to continue to wear the abdominal binder with anterior direct compression as previously described. Discussion in regards to potential space and the attempt to reduce that space with compression while he is healing from his last procedure with Dr. Eng. Dr. Eng has reviewed this previously with with the patient his plan. We will follow-up in 1 week with Mr. Mak or sooner should he develop any concerns regarding the anterior chest wall. Patient verbalizes understanding of same and agrees with the aforementioned plan. documented in this encounter [facility] 09-17-2022 History of Present illness Narrative [facility] [id number] [facility] [address] [place] [id number] Name: Maryse Mak Age: 67 y.o. : 1955 Today's date: 09/17/22 Outpatient Pulmonary Consult Note Chief Complaint Patient presents with Follow-up Patient states that his breathing has been terrible Maryse Mak is a 67 y.o. male who presents to Pulmonary clinic for follow up evaluation of cough. He was last seen 07/01/22. HPI: Mr. Mak is a 67 year old male smoker with history of alcohol abuse, DVT, PVD, substance abuse with cocaine, CAD, chronic back pain, HTN and CAD. He underwent 2vCABG complicated by acute left hemothorax requiring chest tube placement on 11/25/21 and ultimately requiring intrapleural lytics with ultimate removal on 12/04/21. He post operative course was complicated by complaints of cough and left sided chest pain and disunion of his sternotomy and rib fractures. Over the past several months he has suffered with chest pain and chronic cough. He was referred to pulmonary by Cardiothoracic surgery for management of chronic cough. Interval History: Mr. Mak developed a anterior chest abscess around the site of prior CABG wiring. 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 His coughing is somewhat improved in interim. He is wearing a chest binder. He remains short of breath with exertion, but he is trying daily to increase his activity. He has not noted wheezing. He is not producing much sputum. He has not had hemoptysis. He is still smoking and is contemplative. He would like to continue to try quitting and is agreeable to nicotine gum. 07/01/22 On evaluation prior to CABG he had PFTS done that confirmed diagnosis of COPD. He does not require oxygen. He has been smoking a few cigarettes a day after quitting for 3 months post CABG. He does note some post nasal drop that is a trigger for the cough. He is not coughing up blood. He is not having fever or chills. He was recently seen in ER for same complaints and a CT PE was relatively unremarkable with respect to the lung parenchyma. However did not bone fractures in sternum and ribs. He has no previous history of lung disease. He said his breathing was at his baseline until about 3 years ago when he started to get winded and cough more. Things got much worse after his CABG. He has not used inhalers. He does endorse some GAINES but he generally is not too limited by shortness of breath. Past Medical History: Diagnosis Date Alcohol abuse 06/19/2019 Arthritis Chronic back pain Clotting disorder (HCC) DVT Cocaine abuse (HCC) 10/28/2017 Coronary artery disease moderate stenosis of LAD and mild plaque in other vessels Homeless 06/19/2019 Hyperlipidemia Hypertension Tobacco dependence 04/29/2020 Past Surgical History: Procedure Laterality Date BACK SURGERY BRING BACK OPEN HEART N/A 08/19/2022 Procedure: STERNAL WOUND EXPLORATION; Surgeon: Wood Eng MD; Location: Main OR; Service: Cardiothoracic CABG W/ RADIAL ARTERY HARVEST N/A 11/20/2021 Procedure: CORONARY ARTERY BYPASS GRAFT X2 AND LEFT AND RIGHT INTERNAL MAMMARY ARTERY GRAFTS; Surgeon: Wood Eng MD; Location: Main OR; Service: Cardiothoracic CARDIAC CATHETERIZATION N/A 11/07/2021 Procedure: Coronary Angiogram; Surgeon: Minoo Grimm MD; Location: [facility]; Service: Cardiovascular CV IR INTERVENTIONAL RADIOLOGY N/A 09/01/2022 Procedure: VR Aspiration Sternal seroma; Surgeon: Florencio Chambers MD; Location: IR LAB; Service: Interventional Radiology HC LEFT HEART CATH N/A 11/07/2021 Procedure: Left Heart Cath; Surgeon: Minoo Grimm MD; Location: [facility]; Service: Cardiovascular left arm leg sx right and left blood clots Bilateral 2009 in [facility] SHOULDER SURGERY STERNAL WIRING N/A 08/06/2022 Procedure: STERNAL INTERNAL FIXATION WITH PLATING AND SCREWS; Surgeon: Wood Eng MD; Location: Main OR; Service: Cardiothoracic Family History Problem Relation Age of Onset Heart disease Father Heart attack Father Heart attack Maternal Uncle Heart disease Maternal Uncle Other pulmonary history: None Social History Socioeconomic History Marital status: Single Tobacco Use Smoking status: Every Day Packs/day: 0.25 Years: 45.00 Pack years: 11.25 Types: Cigarettes Smokeless tobacco: Never Vaping Use Vaping status: Never Used Passive vaping exposure: Yes Substance and Sexual Activity Alcohol use: Not Currently Comment: PT STATES HE HAS BEEN DRINKING DAILY FOR THE PAST WEEK. no drinking for 6 months Drug use: Not Currently Types: Cocaine Comment: PT STATES HE HAS BEEN SMOKING CRACK FOR A WEEK. Pt states he has not any drugs for 6 months. Sexual activity: Not Currently control/protection: None Review of Systems All other systems reviewed and are negative. Objective: Outpatient Medications as of 09/16/2022 Medication Sig acetaminophen (TYLENOL) 325 MG tablet Take 2 (two) tablets (650 mg total) by mouth every 6 (six) hours as needed for pain . (Patient not taking: Reported on 09/07/2022 .) aspirin 81 MG EC tablet Take 1 (one) tablet (81 mg total) by mouth daily . docusate sodium (COLACE) 100 MG capsule Take 1 (one) capsule (100 mg total) by mouth daily . (Patient not taking: Reported on 09/07/2022 .) fluticasone propionate (FLONASE) 50 mcg/actuation nasal spray Instill 2 (two) sprays into each nostril daily . rraibjxlczn-fzgxmntro-vfvlutue (Trelegy Ellipta) 200-62.5-25 mcg DsDv Inhale 1 (one) Inhalation daily . (Patient not taking: Reported on 09/07/2022 .) gabapentin (NEURONTIN) 800 MG tablet Take 1 (one) tablet (800 mg total) by mouth 3 (three) times a day . guaiFENesin (MUCINEX) 600 mg 12 hr tablet Take 1 (one) tablet (600 mg total) by mouth every 12 (twelve) hours . (Patient not taking: Reported on 09/07/2022 .) losartan (COZAAR) 25 MG tablet Take 1 (one) tablet (25 mg total) by mouth 2 (two) times a day . metoprolol succinate (TOPROL-XL) 25 MG 24 hr tablet Take 0.5 (one-half) tablet (12.5 mg total) by mouth 2 (two) times a day . pantoprazole (PROTONIX) 40 MG tablet Take 1 (one) tablet (40 mg total) by mouth daily . (Patient not taking: Reported on 09/14/2022 .) rosuvastatin (CRESTOR) 5 MG tablet Take 1 (one) tablet (5 mg total) by mouth nightly . tamsulosin (FLOMAX) 0.4 mg capsule Take 1 (one) capsule (0.4 mg total) by mouth after evening meal . Allergies Allergen Reactions Atorvastatin Other (See Comments) ACHE ALL OVER. BP 126/74 Pulse 78 Temp 99.1 F (37.3 C) Resp 16 Ht 6' Wt 109.3 kg (240 lb 14.4 oz) SpO2 93% BMI 32.67 kg/m from IP Vitals Flowsheet Date/Time Weight 07/01/22 0935 108.1 Physical Exam: Vitals reviewed Gen: Alert and oriented x 3, In no apparent distress HEENT: Head: Normocephalic, no lesions, without obvious abnormality. Neck: no mass, no stridor Cardio: regular rate and rhythm chest binder in place Resp: clear to auscultation bilaterally, no wheezes or crackles, no tachypnea or accessory muscle use Abd: soft, nontender MSK: Moves all four extremities spontaneously. Neuro: Grossly normal without focal findings Skin: no rashes, no jaundice PFT Results PFT Pre-bronchodilator 11/07/21 1628 FVC 4.34 (% predicted) 87 FEV1 2.72 (% predicted) 73 FEV1/FVC 63 VC 4.34 (% predicted) 87 PFT Post-bronchodilator 11/07/21 1628 FVC 4.53 (% predicted) 91 (% change) 4 FEV1 3.02 (% predicted) 81 (% change) 11 FEV1/FVC 67 PFT Lung Volumes 11/07/21 1628 TLC 9.35 (% predicted) 132 RV 5.01 (% predicted) 194 PFT Diffusion 11/07/21 1628 DLCO 26 (% predicted) 23.5 DLCO/VA 3.72 (% predicted) 103 Interpretation: Mild reversible obstruction with hyperinflation and air trapping and severe gas exchange impairment. Imaging: Personally reviewed images from CT Chest 08/31/22 IMPRESSION: 1. Since the prior chest CT of 08/18/2022 there has been interval increase of the size of a large collection involving the anterior chest wall in the region of the prior median sternotomy extending into the anterior soft tissues and also into the anterior mediastinum and there are multiple bubbles of gas within this collection. These findings are most compatible with an abscess and probable associated osteomyelitis of the remaining caudal portion of the sternum. There is also evidence of lucencies surrounding the screws within the left side of the sternum in this region from prior open reduction internal fixation compatible with either infection in this region or loosening of these screws. 2. There is a similar appearance of multiple subacute/chronic, nondisplaced fractures of the lateral aspects of the left 3rd through 7th ribs. 3. The lungs appear clear without evidence of active cardiopulmonary disease. Assessment and Plan: Maryse was seen today for follow-up. Diagnoses and all orders for this visit: Tobacco abuse Chronic obstructive pulmonary disease, unspecified COPD type (HCC) Other orders - nicotine polacrilex (NICORETTE) 4 MG gum; Apply 1 (one) each (4 mg total) to the mouth or throat as needed for smoking cessation . Mr. Mak is a 67 year old male smoker with history of alcohol abuse, DVT, PVD, substance abuse with cocaine, CAD, chronic back pain, HTN and CAD. He underwent 2vCABG complicated by acute left hemothorax requiring chest tube placement on 11/25/21 and ultimately requiring intrapleural lytics with ultimate removal on 12/04/21. He post operative course was complicated by complaints of cough and left sided chest pain and disunion of his sternotomy and rib fractures. Over the past several months he has suffered with chest pain and chronic cough. He was referred to pulmonary by Cardiothoracic surgery for management of chronic cough. He eventually developed a sternal abscess with osteomyelitis and has had that drained in interim with partial removal of his sternum. His underlying cough that predates his cardiothoracic issues is likely multifactorial related to COPD and post nasal drip. We will try to continue Trelegy inhaler and flonase. Financial support paperwork provided. He will likely benefit from CT lung surveillance annually, but he had recent CT Chest. 4 minutes smoking cessation counseling provided. He would like to continue to try quitting without pharmacologic assistance, nicotine gum rx provided. 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 Missed visit completed. physician notified. Next visit scheduled for 09/18/22 [facility] 09-17-2022 Miscellaneous Notes Called patient for visit and patient stated that he is in [facility] because of an emergency. Missed visit completed. physician notified. Next visit scheduled for 09/18/22 documented in this encounter [facility] 09-14-2022 Evaluation + Plan note Associated Problem(s): Fluid collection at surgical site Assessment: Disruption of closure of sternotomy Status post sternal rewiring with plating on August 06, [address] Nathan Eng Status post sternal wound reexploration, removal of inferior plating and screws, excision of distal 10% of sternum, and limited myocutaneous flap on August 19, [address] Wood Eng Status post ultrasound-guided insertion of a percutaneous drainage catheter into the anterior chest wall fluid collection on September 01, [address] Florencio Chambers Plan: 1. Continue to wash drain site daily 2. Apply betadine ointment and gauze twice daily 3. Place wash cloth roll over dressing, cover with washcloth, and apply binder to chest securely 4. Please keep pressure on drain site at all times [facility] 09-14-2022 History of Present illness Narrative Images from the original note were not included. Cardiothoracic Surgery Clinic Follow-up Heart & Vascular [facility] 09/14/2022 Julio C Zheng PA-C [address] [place] [address] Medical Office [facility] [id number] Patient: Maryse Mak Date of : 1955 (67 y.o.) PCP: PAULETTE CARBALLO CNP Assessment & Plan Fluid collection at surgical site Assessment: Disruption of closure of sternotomy Status post sternal rewiring with plating on August 06, [address] Nathan Eng Status post sternal wound reexploration, removal of inferior plating and screws, excision of distal 10% of sternum, and limited myocutaneous flap on August 19, [address] Wood Eng Status post ultrasound-guided insertion of a percutaneous drainage catheter into the anterior chest wall fluid collection on September 01, [address] Florencio Chambers Plan: Continue to wash drain site daily Apply betadine ointment and gauze twice daily Place wash cloth roll over dressing, cover with washcloth, and apply binder to chest securely Please keep pressure on drain site at all times Follow-up: No follow-ups on file. Chief Complaint: Follow-up (Sternal drain removal ) Subjective History of Present Illness: Maryse Mak is a 67 y.o. male s/p sternal rewiring/plating, sternal wound reexploration, and s/p ultrasound-guided insertion of percutaneous drainage catheter into anterior chest wall fluid collection. The drain was inserted on 09/01/[address] Florencio Chambers. He comes in today for drain removal. He feels well overall although is tired of the drain being in place. He has been emptying it approximately twice daily and had been instructed to track the amount of drainage. He tells me that Wednesday he emptied about 30 mL in the morning, and then thought he pulled the drain out slightly, so he pushed it back in and then noticed increase in bloody drainage to 50 mL. Wednesday he noted 30 mL am and 20 mL pm. Wednesday he noted approximately 20 mL in the am and 20 mL in the pm. Then this morning he emptied approximately 15-20 mL. He was concerned about two lumps in the bag which appear to be possibly small clots. Very little serosanguinous drainage in the bag during the appointment. He denies chest pain, swelling, redness, discharge around the drain site, or fever. The skin and area around the drain was cleaned thoroughly with betadine, and suture was clipped. The drain catheter was unlocked so that pigtail could unravel. Betadine ointment was applied around the drain site and covered with gauze. Drain was removed without difficulty. There was some serous drainage from the site after removal. The area was cleaned and again covered in betadine ointment and sterile gauze dressing. Several washcloths were wrapped securely into a firm bundle and placed over the dressing for additional pressure. This was then covered with a clean washcloth and abdominal binder was applied around chest to hold everything securely in place. Mr. Mak was instructed to continue to wash the site and apply betadine ointment and fresh gauze twice daily. He is always to keep washcloth bundle and chest binder on in order to provide pressure. Instructions and supplies were given to the patient and he verbalized understanding. He will be returning on 09/16/22 for recheck. Objective Tobacco Use Smoking Status Every Day Packs/day: 0.25 Years: 45.00 Pack years: 11.25 Types: Cigarettes Smokeless Tobacco Never Vaping Use Vaping Status Never Used Passive vaping exposure: Yes EKG 12-lead Final Result by Interface, Lab Results In [facility] (06/21/2022 1934) Echocardiogram complete w contrast Final Result by Lee Taylor MD (11/07/2021 1444) Stress test only, exercise Final Result by Eunice Rodriguez MD (05/30/2018 1056) Cardiac Catheterization Final Result by Minoo Grimm MD (11/07/2021 1050) HOME Medications: Patient's Medications New Prescriptions No medications on file Previous Medications ACETAMINOPHEN (TYLENOL) 325 MG TABLET Take 2 (two) tablets (650 mg total) by mouth every 6 (six) hours as needed for pain . ASPIRIN 81 MG EC TABLET Take 1 (one) tablet (81 mg total) by mouth daily . DOCUSATE SODIUM (COLACE) 100 MG CAPSULE Take 1 (one) capsule (100 mg total) by mouth daily . FLUTICASONE PROPIONATE (FLONASE) 50 MCG/ACTUATION NASAL SPRAY Instill 2 (two) sprays into each nostril daily . [id number] (TRELEGY ELLIPTA) 200-62.5-25 MCG DSDV Inhale 1 (one) Inhalation daily . GABAPENTIN (NEURONTIN) 800 MG TABLET Take 1 (one) tablet (800 mg total) by mouth 3 (three) times a day . GUAIFENESIN (MUCINEX) 600 MG 12 HR TABLET Take 1 (one) tablet (600 mg total) by mouth every 12 (twelve) hours . LOSARTAN (COZAAR) 25 MG TABLET Take 1 (one) tablet (25 mg total) by mouth 2 (two) times a day . METOPROLOL SUCCINATE (TOPROL-XL) 25 MG 24 HR TABLET Take 0.5 (one-half) tablet (12.5 mg total) by mouth 2 (two) times a day . PANTOPRAZOLE (PROTONIX) 40 MG TABLET Take 1 (one) tablet (40 mg total) by mouth daily . ROSUVASTATIN (CRESTOR) 5 MG TABLET Take 1 (one) tablet (5 mg total) by mouth nightly . TAMSULOSIN (FLOMAX) 0.4 MG CAPSULE Take 1 (one) capsule (0.4 mg total) by mouth after evening meal . Modified Medications No medications on file Discontinued Medications No medications on file Vital Signs: BP 137/88 (BP Location: Left arm, Patient Position: Sitting) Pulse 79 Temp 97.9 F (36.6 C) Ht 6' Wt 109.8 kg (242 lb) SpO2 99% BMI 32.82 kg/m Physical Exam Vitals reviewed. Constitutional: General: He is not in acute distress. Appearance: Normal appearance. He is not diaphoretic. HENT: Head: Normocephalic and atraumatic. Nose: Nose normal. Mouth/Throat: Mouth: Mucous membranes are moist. Eyes: Extraocular Movements: Extraocular movements intact. Pulmonary: Effort: Pulmonary effort is normal. No respiratory distress. Chest: Chest wall: No swelling, tenderness or crepitus. Abdominal: General: There is no distension. Palpations: Abdomen is soft. Tenderness: There is no abdominal tenderness. Skin: General: Skin is warm and dry. Capillary Refill: Capillary refill takes less than 2 seconds. Comments: Many excoriations noted diffusely over abdomen; have the appearance of bites but patient states it is irritation from the tape and from him scratching Neurological: General: No focal deficit present. Mental Status: He is alert and oriented to person, place, and time. Psychiatric: Mood and Affect: Mood normal. Behavior: Behavior normal. Labs: I personally reviewed and interpreted the labs documented below. Lab Results Component Value Date CHOL 144 09/10/2022 LDLCALC 67 09/10/2022 TRIG 210 (H) 09/10/2022 HDL 35 (L) 09/10/2022 Serum creatinine: 1.08 mg/dL 09/07/22 0954 Estimated creatinine clearance: 74.8 mL/min documented in this encounter [facility] 09-14-2022 Miscellaneous Notes Associated Problem(s): Fluid collection at surgical site Assessment: Disruption of closure of sternotomy Status post sternal rewiring with plating on August 06, [address] Nathan Eng Status post sternal wound reexploration, removal of inferior plating and screws, excision of distal 10% of sternum, and limited myocutaneous flap on August 19, [address] Wood Eng Status post ultrasound-guided insertion of a percutaneous drainage catheter into the anterior chest wall fluid collection on September 01, [address] Florencio Chambers Plan: 1. Continue to wash drain site daily 2. Apply betadine ointment and gauze twice daily 3. Place wash cloth roll over dressing, cover with washcloth, and apply binder to chest securely 4. Please keep pressure on drain site at all times documented in this encounter [facility] 09-14-2022 Instructions Julio C Zheng PA-C - 09/14/2022 12:06 PM EDT Continue to wash drain site daily Apply betadine ointment and gauze twice daily Place wash cloth roll over dressing, cover with washcloth, and apply binder to chest securely Please keep pressure on drain site at all times documented in this encounter [facility] 09-10-2022 History of Present illness Narrative Images from the original note were not included. Dr. Nathan Eng met with Maryse Mak today in regards to anterior chest drain. This physician emergency veterinary assistant was present for the appointment. Patient has a 10 [employer] Flexima multipurpose drain which is intact, suction functioning. He continues to have serosanguineous drainage which is very thin and bright red appearing. Patient reports he is having approximately 4 to 10 mL daily of output. During his appointment, he is visibly irritated and verbalizes feeling agitated and that he is tired of having surgeries and the drain in place. Dr. Eng had a long discussion with Mr. Mak regarding the purpose of the drain to allow scarring down of a potential space and preventing reaccumulation of fluid. Patient verbalizes understanding of same however still is adamant on having drain moved as soon as possible. Dr. Eng and the patient both agreed upon keeping the drain today. Patient is to empty the current contents of the drainage system and to maintain strict output over 24-hour period and to call cardiac surgery to report amount of drainage. Consideration for removal of drain after obtaining 24-hour output. Patient verbalizes understanding and agrees to same. He has also been advised that once the drain is removed, abdominal binder to the chest will be applied along with firm pressure to be applied to the centralized area of accumulation of fluid. This will be done with a gauze roll, or another type of durable and sustaining material such as possibly clean folded washcloths for compression. Patient verbalizes understanding of same. We will reevaluate tomorrow on 09/11/2022. Photodocumentation is obtained and reflected herein. It is noted that patient continues to scratch his abdominal area quite frequently. He states that this is from tape agitating his skin however there are skin lesions that appear to be in a track formation. Patient also states he is experiencing extreme pruritus of the left lower extremity and he has scratched at this and has new skin breakdown at the site. Dr. Eng asked Mr. Mak if the [facility] that could potentially have bedbugs. Mr. Mak is adamant that the facility does not have bedbugs and this is related to generalized skin irritation. Full office visit note to be dictated by Dr. Eng for appointment. documented in this encounter [facility] 09-07-2022 History of Present illness Narrative Images from the original note were not included. September 07, 2022 RE: Maryse Mak : 1955 ASSESSMENT: Disruption of closure of sternotomy Status post sternal rewiring with plating on August 06, [address] Nathan Eng Status post sternal wound reexploration, removal of inferior plating and screws, excision of distal 10% of sternum, and limited myocutaneous flap on August 19, [address] Wood Eng Status post ultrasound-guided insertion of a percutaneous drainage catheter into the anterior chest wall fluid collection on September 01, [address] Florencio Chambers Coronary artery disease Status post CABG x2 with DAVIS to LAD and INGRID to distal RCA on November 20, [address] Nathan Eng Hypertension Hyperlipidemia Tobacco abuse COPD Recent previous illicit drug abuse PLAN: Continue percutaneous drain at this time Continue antibiotics Return in the 3 days for reevaluation of drain removal SUBJECTIVE: He returns today for a follow-up visit. He is very upset today. He states that he cannot sleep with the drain in. He desperately wants to drain out. He is very upset that he has had multiple procedures to correct his sternal problem and that he still has the drain in place. He states that it drained 40 mL on Wednesday and 40 mL on Wednesday and 20 to 30 mL on Wednesday. He states that he does have some soreness of the lower chest area. He states that he is taking the antibiotics. The drainage appears to be thin serosanguineous. When I told him that we want to keep the drain in for a few more days until it is completely dry, he became more upset. I tried to explained to him the rationale for us keeping the drain in longer, but he seemed like he did not care for my explanation. As soon as I put a new dressing over the drain, he essentially stormed out of the office. OBJECTIVE: BP 112/80 (BP Location: Left arm, Patient Position: Sitting) Pulse 80 Temp 98.7 F (37.1 C) Ht 6' Wt 107 kg (236 lb) SpO2 96% BMI 32.01 kg/m Physical Exam Cardiovascular: Rate and Rhythm: Normal rate and regular rhythm. Heart sounds: Normal heart sounds. Pulmonary: Effort: No respiratory distress. Breath sounds: Normal breath sounds. Skin: General: Skin is warm and dry. Comments: Sternal drain in place and wound looks good and is clean, dry, intact. The bottom of the chest incision appears collapsed and not swollen or fluctuant. Chest x-ray Latest Reference Range & Units 09/07/22 09:54 WBC 4.50 - 11.00 K/mcL 8.45 RBCs 4.50 - 5.90 M/mcL 4.74 Hemoglobin 13.5 - 17.5 g/dL 13.6 Hematocrit 41.0 - 53.0 % 42.6 MCV 80.0 - 100.0 fL 89.9 MCH 26.0 - 34.0 pg 28.7 MCHC 31.0 - 37.0 g/dL 31.9 RDW 11.6 - 14.8 % 14.4 Platelets 150 - 400 K/mcL 307 Latest Reference Range & Units 09/07/22 09:54 Sodium 135 - 145 mmol/L 142 Potassium 3.5 - 5.1 mmol/L 4.3 Chloride 98 - 108 mmol/L 111 (H) Bicarbonate 21 - 32 mmol/L 27 Anion Gap 10 - 20 mmol/L 8 (L) Glucose 65 - 99 mg/dL 128 (H) BUN 8 - 25 mg/dL 8 Creatinine 0.80 - 1.30 mg/dL 1.08 eGFR >=60 mL/min/1.73 m2 76 BUN/Creatinine Ratio 10.0 - 20.0 7.4 (L) Calcium 8.4 - 10.2 mg/dL 9.2 (H): Data is abnormally high (L): Data is abnormally low Patient's Medications New Prescriptions No medications on file Previous Medications ACETAMINOPHEN (TYLENOL) 325 MG TABLET Take 2 (two) tablets (650 mg total) by mouth every 6 (six) hours as needed for pain . AMOXICILLIN-CLAVULANATE (AUGMENTIN) 875-125 MG PER TABLET Take 1 (one) tablet by mouth every 12 (twelve) hours for 7 days . ASPIRIN 81 MG EC TABLET Take 1 (one) tablet (81 mg total) by mouth daily . DOCUSATE SODIUM (COLACE) 100 MG CAPSULE Take 1 (one) capsule (100 mg total) by mouth daily . FLUTICASONE PROPIONATE (FLONASE) 50 MCG/ACTUATION NASAL SPRAY Instill 2 (two) sprays into each nostril daily . [id number]-[id number] (TRELEGY ELLIPTA) 200-62.5-25 MCG DSDV Inhale 1 (one) Inhalation daily . GABAPENTIN (NEURONTIN) 800 MG TABLET Take 1 (one) tablet (800 mg total) by mouth 3 (three) times a day . GUAIFENESIN (MUCINEX) 600 MG 12 HR TABLET Take 1 (one) tablet (600 mg total) by mouth every 12 (twelve) hours . LOSARTAN (COZAAR) 25 MG TABLET Take 1 (one) tablet (25 mg total) by mouth 2 (two) times a day . METOPROLOL SUCCINATE (TOPROL-XL) 25 MG 24 HR TABLET Take 0.5 (one-half) tablet (12.5 mg total) by mouth 2 (two) times a day . PANTOPRAZOLE (PROTONIX) 40 MG TABLET Take 1 (one) tablet (40 mg total) by mouth daily . ROSUVASTATIN (CRESTOR) 5 MG TABLET Take 1 (one) tablet (5 mg total) by mouth nightly . TAMSULOSIN (FLOMAX) 0.4 MG CAPSULE Take 1 (one) capsule (0.4 mg total) by mouth after evening meal . Modified Medications No medications on file Discontinued Medications No medications on file Sincerely yours; Maryse Melton PA-C documented in this encounter [facility] 09-07-2022 History of Present illness Narrative Images from the original note were not included. September 07, 2022 RE: Maryse Mak : 1955 ASSESSMENT: Disruption of closure of sternotomy Status post sternal rewiring with plating on August 06, [address] Nathan Eng Status post sternal wound reexploration, removal of inferior plating and screws, excision of distal 10% of sternum, and limited myocutaneous flap on August 19, [address] Wood Eng Status post ultrasound-guided insertion of a percutaneous drainage catheter into the anterior chest wall fluid collection on September 01, [address] Florencio Chambers Coronary artery disease Status post CABG x2 with DAVIS to LAD and INGRID to distal RCA on November 20, [address] Nathan Eng Hypertension Hyperlipidemia Tobacco abuse COPD Recent previous illicit drug abuse PLAN: Continue percutaneous drain at this time Continue antibiotics Return in the 3 days for reevaluation of drain removal SUBJECTIVE: He returns today for a follow-up visit. He is very upset today. He states that he cannot sleep with the drain in place. He desperately wants the drain out. He is very upset that he has had multiple procedures to correct his sternal problem and that he still has the drain in place. He states that it drained 40 mL on Wednesday and 40 mL on Wednesday and 20 to 30 mL on Wednesday. He states that he does have some soreness of the lower chest area. He states that he is taking the antibiotics. The drainage appears to be thin serosanguineous. When I told him that we want to keep the drain in for a few more days until it is completely dry, he became more upset. I tried to explained to him the rationale for us keeping the drain in longer, but he seemed like he did not care for my explanation. As soon as I put a new dressing over the drain, he essentially stormed out of the office. OBJECTIVE: BP 112/80 (BP Location: Left arm, Patient Position: Sitting) Pulse 80 Temp 98.7 F (37.1 C) Ht 6' Wt 107 kg (236 lb) SpO2 96% BMI 32.01 kg/m Physical Exam Cardiovascular: Rate and Rhythm: Normal rate and regular rhythm. Heart sounds: Normal heart sounds. Pulmonary: Effort: No respiratory distress. Breath sounds: Normal breath sounds. Skin: General: Skin is warm and dry. Comments: Anterior chest wall drain in place and wound looks good and is clean, dry, intact. The bottom of the chest incision appears collapsed and not swollen or fluctuant. Chest x-ray: No pleural effusions Latest Reference Range & Units 09/07/22 09:54 WBC 4.50 - 11.00 K/mcL 8.45 RBCs 4.50 - 5.90 M/mcL 4.74 Hemoglobin 13.5 - 17.5 g/dL 13.6 Hematocrit 41.0 - 53.0 % 42.6 MCV 80.0 - 100.0 fL 89.9 MCH 26.0 - 34.0 pg 28.7 MCHC 31.0 - 37.0 g/dL 31.9 RDW 11.6 - 14.8 % 14.4 Platelets 150 - 400 K/mcL 307 Latest Reference Range & Units 09/07/22 09:54 Sodium 135 - 145 mmol/L 142 Potassium 3.5 - 5.1 mmol/L 4.3 Chloride 98 - 108 mmol/L 111 (H) Bicarbonate 21 - 32 mmol/L 27 Anion Gap 10 - 20 mmol/L 8 (L) Glucose 65 - 99 mg/dL 128 (H) BUN 8 - 25 mg/dL 8 Creatinine 0.80 - 1.30 mg/dL 1.08 eGFR >=60 mL/min/1.73 m2 76 BUN/Creatinine Ratio 10.0 - 20.0 7.4 (L) Calcium 8.4 - 10.2 mg/dL 9.2 (H): Data is abnormally high (L): Data is abnormally low Patient's Medications New Prescriptions No medications on file Previous Medications ACETAMINOPHEN (TYLENOL) 325 MG TABLET Take 2 (two) tablets (650 mg total) by mouth every 6 (six) hours as needed for pain . AMOXICILLIN-CLAVULANATE (AUGMENTIN) 875-125 MG PER TABLET Take 1 (one) tablet by mouth every 12 (twelve) hours for 7 days . ASPIRIN 81 MG EC TABLET Take 1 (one) tablet (81 mg total) by mouth daily . DOCUSATE SODIUM (COLACE) 100 MG CAPSULE Take 1 (one) capsule (100 mg total) by mouth daily . FLUTICASONE PROPIONATE (FLONASE) 50 MCG/ACTUATION NASAL SPRAY Instill 2 (two) sprays into each nostril daily . [id number] (TRELEGY ELLIPTA) 200-62.5-25 MCG DSDV Inhale 1 (one) Inhalation daily . GABAPENTIN (NEURONTIN) 800 MG TABLET Take 1 (one) tablet (800 mg total) by mouth 3 (three) times a day . GUAIFENESIN (MUCINEX) 600 MG 12 HR TABLET Take 1 (one) tablet (600 mg total) by mouth every 12 (twelve) hours . LOSARTAN (COZAAR) 25 MG TABLET Take 1 (one) tablet (25 mg total) by mouth 2 (two) times a day . METOPROLOL SUCCINATE (TOPROL-XL) 25 MG 24 HR TABLET Take 0.5 (one-half) tablet (12.5 mg total) by mouth 2 (two) times a day . PANTOPRAZOLE (PROTONIX) 40 MG TABLET Take 1 (one) tablet (40 mg total) by mouth daily . ROSUVASTATIN (CRESTOR) 5 MG TABLET Take 1 (one) tablet (5 mg total) by mouth nightly . TAMSULOSIN (FLOMAX) 0.4 MG CAPSULE Take 1 (one) capsule (0.4 mg total) by mouth after evening meal . Modified Medications No medications on file Discontinued Medications No medications on file Sincerely yours; Maryse Melton PA-C documented in this encounter [facility] 08-31-2022 Patient's home Pr ogress note transfer Narratives Patient went to follow up ap pointment with MD and was found to have fluid at his surgical site. Patient was directed to the ER and admitted under observation on 08/31/22. On 09/02/22 patient went inpatient and transfer was completed on 09/03/22. documented in this encounter [id number] Patient's home Progress note* Actions transfer Narratives Patient went to follow up ap pointment with MD and was found to have fluid at his surgical site. Patient was directed to the ER and admitted under observation on 08/31/22. On 09/02/22 patient went inpatient and transfer was completed on 09/03/22. documented in this encounter [id number] Evaluation + Plan note* Assessment & Plan Note - Julio C Zheng PA-C - 08/31/2022 12:57 PM EDTAssociated Problem(s): Disruption of closure of sternum or sternotomy, subsequent encounter Patient transported to ED for evaluation of possible sternal fluid collection Patient will need admission, observation status CT chest without contrast IV antibiotics - Marilyn and Johan per Dr. Eng Consult to interventional radiology for drain placement [id number] History of Present illness Narrative* Julio C Zheng PA-C - 08/31/2022 12:57 PM EDT Images from the original note were not included. Cardiothoracic Surgery Clinic Follow-up Heart & Vascular [facility] 08/31/2022 Julio C Zheng PA-C [address] [place] [address] Medical Office [facility] [id number] Patient: Maryse Mak Date of : 1955 (67 y.o.) PCP: PAULETTE CARBALLO CNP Assessment & Plan Disruption of closure of sternum or sternotomy, subsequent encounter Patient transported to ED for evaluation of possible sternal fluid collection Patient will need admission, observation status CT chest without contrast IV antibiotics - Ancef and Vanco per Dr. Eng Consult to interventional radiology for drain placement Follow-up: No follow-ups on file. Chief Complaint: Follow-up ( Status post sternal rewiring with plating on August 06, [address] Nunez/Disruption of closure of sternotomy/Status post sternal wound reexploration, removal of inferior plating and screws, excision of distal 10% of sternum, and limited myocutaneous flap on [address] Wood Eng) Subjective History of Present Illness: Maryse Mak is a 67 y.o. male who is well-known to our service. He underwent CABG x2 with DAVIS to LAD and INGRID to distal RCA on November 20, [address] Eng. He developed a sternal nonunion. He underwent sternal rewire with plating on August 06, [address] Eng. He was seen by home health care who noticed some swelling of the bottom of his chest incision and called our office and we had him come in for evaluation. Upon her evaluation and after noticing the bottom of his chest incision fluctuant and swollen, we readmitted him to the hospital and obtained a noncontrast CT. he was readmitted on August 18, 2022. The CT scan revealed a fluid collection likely a seroma or hematoma with the bottom plate and additional screws having come loose from the bone. Dr. Eng evaluated the patient and reviewed the CT scan and felt that he would need a surgical exploration of the wound. He was consented for surgery and he was taken to the operating room on August 19, 2022 where he underwent sternal wound reexploration, removal of inferior plating and screws, excision of distal 10% of sternum, and l imited myocutaneous flap by Dr. Eng. He then had a 6 day postoperative stay and was dischargedon 08/25/22. He comes in today for a follow up appointment and says he has noticed increased swelling, redness, and warmth to the left side of his sternal incision over the past 2 days. He slept on that side lastnight and he says it is also extremely painful. He has been adhering to all of his lifting restrictions, is wearing his heart hugger and abdominal binder around the chest. He has been walking daily, having regular bowel movements, and is voiding without difficulty. He is occasionally short of breath after walking. He denies fever, chills, and discharge from the incision. He has not noticed any movement or popping sensation in the sternum and felt like he was doing very well up until 2 days ago when the swelling started. Chest X-ray was unchanged from the time of discharge, sternal wires aligned and intact. No pleural effusion or pneumothorax. He is afebrile today in the office, vitals are reflected below. There is afluctuant, erythematous, warm area of swelling more so on the left side of the sternal incision. Photographs shown below for reference. WBC count was normal. Dr. Eng evaluated the patient in theoffice during the visit as well and believes it is likely a postoperative fluid collection. He would like Mr. Mak admitted to observation status, started on IV antibiotics, CT chest without contrast, and consult to IR for drain placement. He spoke with Dr. Chambers who would be willing to place a drain likely today. I spoke with bed coordinator and nursing supervisor [facility] who state that there are currently no beds available and patient would have to go home and be called in several days to come back. Dr. Eng believes this needs drainage and IV antibiotics today. Therefore, I personally walked patient down to emergency department in order to expedite treatment. Objective Tobacco Use Smoking Status Every Day Packs/day: 0.25 Years: 45.00 Pack years: 11.25 Types: Cigarettes Smokeless Tobacco Never Tobacco Comments 2-3 CIGARETTES DAILY Vaping Use Vaping Status Never Used Passive vaping exposure: Yes EKG 12-lead Final Result by Interface, Lab Results In [facility] (06/21/2022 1934) Echocardiogram complete w contrast Final Result by Lee Taylor MD (11/07/2021 1444) Stress test only, exercise Final Result by Eunice Rodriguez MD (05/30/2018 1056) Cardiac Catheterization Final Result by Minoo Grimm MD (11/07/2021 1050) HOME Medications: Patient's Medications New Prescriptions No medications on file Previous Medications ACETAMINOPHEN (TYLENOL) 325 MG TABLET Take 2 (two) tablets (650 mg total) by mouth every 6 (six) hours as needed for pain . ASPIRIN 81 MG EC TABLET Take 1 (one) tablet (81 mg total) by mouth daily . DOCUSATE SODIUM (COLACE) 100 MG CAPSULE Take 1 (one) capsule (100 mg total) by mouth daily . FLUTICASONE PROPIONATE (FLONASE) 50 MCG/ACTUATION NASAL SPRAY Instill 2 (two) sprays into each nostril daily . [id number]-HLCFMHYDE-QVXVZZUZ (TRELEGY ELLIPTA) 200-62.5-25 MCG DSDV Inhale 1 (one) Inhalation daily . GABAPENTIN (NEURONTIN) 800 MG TABLET Take 1 (one) tablet (800 mg total) by mouth 3 (three) times a day . GUAIFENESIN (MUCINEX) 600 MG 12 HR TABLET Take 1 (one) tablet (600 mg total) by mouth every 12 (twelve) hours . LOSARTAN (COZAAR) 25 MG TABLET Take 1 (one) tablet (25 mg total) by mouth 2 (two) times a day . METOPROLOL SUCCINATE (TOPROL-XL) 25 MG 24 HR TABLET Take 0.5 (one-half) tablet (12.5 mg total) by mouth 2 (two) times a day . PANTOPRAZOLE (PROTONIX) 40 MG TABLET Take 1 (one) tablet (40 mg total) by mouth daily . ROSUVASTATIN (CRESTOR) 5 MG TABLET Take 1 (one) tablet (5 mg total) by mouth nightly . TAMSULOSIN (FLOMAX) 0.4 MG CAPSULE Take 1 (one) capsule (0.4 mg total) by mouth after evening meal . Modified Medications No medications on file Discontinued Medications No medications on file Vital Signs: BP 128/83 (BP Location: Left arm, Patient Position: Sitting, BP Cuff Size: X- large Adult) Pulse 81 Temp 98.2 F (36.8 C) (Oral) Ht 6' Wt 108.9 kg (240 lb) SpO2 95% BMI 32.55 kg/m Physical Exam Vitals reviewed. Constitutional: General: He is not in acute distress. Appearance: Normal appearance. He is not diaphoretic. Cardiovascular: Rate and Rhythm: Normal rate and regular rhythm. Pulses: Normal pulses. Heart sounds: Normal heart sounds. No murmur heard. No friction rub. No gallop. Pulmonary: Effort: Pulmonary effort is normal. No respiratory distress. Breath sounds: Normal breath sounds. No wheezing, rhonchi or rales. Abdominal: General: There is no distension. Palpations: Abdomen is soft. Tenderness: There is no abdominal tenderness. Musculoskeletal: General: Normal range of motion. Right lower leg: No edema. Left lower leg: No edema. Skin: General: Skin is warm and dry. Capillary Refill: Capillary refill takes less than 2 seconds. Findings: Erythema present. Comments: Warm, erythematous, fluctuant swelling located around and just left of sternal incision Neurological: General: No focal deficit present. Mental Status: He is alert and oriented to person, place, and time. Psychiatric: Mood and Affect: Mood normal. Behavior: Behavior normal. Labs: I personally reviewed and interpreted the labs documented below. Lab Results Component Value Date GLUCOSE 120 (H) 08/31/2022 CALCIUM 9.0 08/31/2022 NA 140 08/31/2022 K 4.2 08/31/2022 CL 112 (H) 08/31/2022 BUN 9 08/31/2022 CREATININE 1.04 08/31/2022 Lab Results Component Value Date WBC 7.75 08/31/2022 HGB 12.6 (L) 08/31/2022 HCT 39.4 (L) 08/31/2022 MCV 89.7 08/31/2022 EXTMCV 92.8 02/21/2018 PLT 280 08/31/2022 RBC 4.39 (L) 08/31/2022 documented in this [id number] Miscellaneous Notes* Assessment & Plan Note - Julio C Zheng PA-C - 08/31/2022 12:57 PM EDT Associated Problem(s): Disruption of closure of sternum or sternotomy, subsequent encounter Patient transported to ED for evaluation of possible sternal fluid collection Patient will need admission, observation status CT chest without contrast IV antibiotics - Ancef and Vanco per Dr. Eng Consult to interventional radiology for drain placement documented in this [id number] Instructions* Patient Instructions* Julio C Zheng PA-C - 08/31/2022 12:54 PM EDT Patient transported to ED for evaluation of possible sternal fluid collection Patient will need admission, observation status CT chest without contrast IV antibiotics - Ancef and Vanco per Dr. Eng Consult to interventional radiology for drain placement documented in this [id number] Patient's home Progress note* Actions transfer Narratives pt presented to on 08/18 fo r status post sternal rewiring with plating on August 06, [address] Nathan Eng. Disruption of closure of sternotomy. In the office on 08/18/22 the patient was found to have induration and erythema of the bottom half of the chest incision. PA and lateral chest x-ray shows additional screws dislodged and migrating inferiorly. LEAH Escamilla reviewed these findings with Dr. Eng and at that time they directly admited patient to the hospital and check a noncontrast CT scan of his chest. Patient was kept NPO after midnight and scheduled for wound exploration in the OR on 08/19/22. Pt made IP 08/18 @ 15:16 - transfer complete. documented in this encounter [id number] History of Present illness Narrative* Maryse Melton PA-C - 08/18/2022 1:55 PM EDT Images from the original note were not included. August 18, 2022 RE: Maryse Mak : 1955 ASSESSMENT: 67-year-old male Status post sternal rewiring with plating on August 06, [address] Nathan Eng In the office today the patient has induration and erythema of the bottom half of the chest incision PA and lateral chest x-ray shows additional screws dislodged and migrating inferiorly I reviewed these findings with Dr. Eng and at this time we are going to directly admit him to the hospital and check a noncontrast CT scan of his chest We will keep him n.p.o. after midnight and schedule him for wound exploration in the OR tomorrow We will start him on prophylactic Ancef as a precaution Coronary artery disease Status post CABG x2 with DAVIS to LAD and INGRID to distal RCA on November 20, [address] Nathan Eng Hypertension Continue ASA, Toprol, Losartan Hyperlipidemia Continue Crestor 5 mg nightly Tobacco abuse COPD He has been smoking 5-6 cigarettes daily I strong warned and encouraged him to quit SUBJECTIVE: He was seen today by home health care who noticed some swelling of the bottom of his chest incisionand called our office and we had him come in for evaluation. Patient states that he has been faithfully using the heart hugger and the abdominal binder over his chest. He states that he does occasionally cough. He has been smoking 5 to 6 cigarettes a day. He states that he does notice some ongoing popping and clicking of the bottom of the chest incision with deep breathing or certain movements but he has been trying to avoid those movements. He denies having really any pain at the bottom of thechest incision. His breathing is okay. OBJECTIVE: BP 114/75 (BP Location: Left arm, Patient Position: Sitting) Pulse 91 Temp 98 F (36.7 C) Ht 6' Wt 111.6 kg (246 lb) SpO2 95% BMI 33.36 kg/m Physical Exam Constitutional: Appearance: Normal appearance. Cardiovascular: Rate and Rhythm: Normal rate and regular rhythm. Pulses: Normal pulses. Heart sounds: Normal heart sounds. Pulmonary: Effort: Pulmonary effort is normal. No respiratory distress. Breath sounds: Normal breath sounds. Musculoskeletal: Right lower leg: No edema. Left lower leg: No edema. Skin: General: Skin is warm and dry. Comments: Chest incision is intact and clean and dry. He is currently wearing his abdominal binder around his chest and his heart hugger. There appears to be some mild erythema of the distal end of the chest incision. The bottom half of the chest incision feel indurated and fluid filled. Please see photo below. Neurological: General: No focal deficit present. Mental Status: He is alert and oriented to person, place, and time. Mental status is at baseline. Chest x-ray: Top sternal wires are aligned and intact and the middle plating looks intact on the images that we can see but the bottom plate looks distorted and there are screws missing and appear to have migrated inferiorly Patient's Medications New Prescriptions No medications on file Previous Medications ACETAMINOPHEN (TYLENOL) 325 MG TABLET Take 2 (two) tablets (650 mg total) by mouth every 4 (four) hours as needed . ASPIRIN 81 MG EC TABLET Take 1 (one) tablet (81 mg total) by mouth daily . DOCUSATE SODIUM (COLACE) 100 MG CAPSULE Take 1 (one) capsule (100 mg total) by mouth daily Start: 08/13/22. FLUTICASONE PROPIONATE (FLONASE) 50 MCG/ACTUATION NASAL SPRAY Instill 2 (two) sprays into each nostril daily . [id number]-[id number]-CSUGMMZS (TRELEGY ELLIPTA) 200-62.5-25 MCG DSDV Inhale 1 (one) Inhalation daily . GABAPENTIN (NEURONTIN) 800 MG TABLET Take 1 (one) tablet (800 mg total) by mouth 3 (three) times a day . HYDROXYZINE (ATARAX) 25 MG TABLET Take 1 (one) tablet (25 mg total) by mouth 3 (three) times a day as needed for anxiety or itching . LOSARTAN (COZAAR) 25 MG TABLET Take 1 (one) tablet (25 mg total) by mouth 2 (two) times a day . METOPROLOL SUCCINATE (TOPROL-XL) 25 MG 24 HR TABLET Take 0.5 (one-half) tablet (12.5 mg total) by mouth 2 (two) times a day . MULTIVIT-MINERALS/FOLIC/GINKGO (DAILY MULTIPLE ORAL) Take 1 tablet by mouth daily . PANTOPRAZOLE (PROTONIX) 40 MG TABLET Take 1 (one) tablet (40 mg total) by mouth daily Start: 08/13/22. ROSUVASTATIN (CRESTOR) 5 MG TABLET Take 1 (one) tablet (5 mg total) by mouth nightly . SODIUM CHLORIDE (OCEAN) 0.65 % NASAL SPRAY 1 (one) spray to each nostril as needed . TAMSULOSIN (FLOMAX) 0.4 MG CAPSULE Take 1 (one) capsule (0.4 mg total) by mouth after evening meal . Modified Medications No medications on file Discontinued Medications No medications on file Sincerely yours; Maryse Melton PA-C documented in this [id number] History of Present illness Narrative* Mariela Morgan MD - 08/05/2022 10:17 AM EDT [facility] [address] [facility] [address] [facility] [id number] Maryse Mak is a 67 y.o. male being seen today, 08/05/22, Chief Complaint Patient presents with Right Hip - Follow-up [chief complaint] right hip pain HPI Dictation: Bilateral intra-articular hip injection which did help but started to wear off already has had recent heart surgery would not be a candidate for elective hip surgery for least another 3 to 4 months in addition his sternal repair has failed and has surgery scheduled for [hpi] Physical Exam Dictation: [PE] mild irritability with passive range of the right hip Assessment and Plan Dictation: [AP] plan return once he has completed his cardiac procedures and is cleared for surgery I have reviewed all relevant histories, medications, allergies, and problem list items with Maryse Smith during this visit. Review of Systems Constitutional: Negative for chills and fever. HENT: Negative for congestion. Respiratory: Negative for shortness of breath. Cardiovascular: Negative for chest pain. Gastrointestinal: Negative for diarrhea, nausea and vomiting. Neurological: Negative for headaches. Psychiatric/Behavioral: Negative for behavioral problems. Ht 6' Wt 108 kg (238 lb) BMI 32.28 kg/m Imaging: No results found. 1. Primary osteoarthritis of right hip Return if symptoms worsen or fail to improve. Mariela Morgan MD documented in this [id number] Note* Addendum Note - Maryse Melton PA-C - 08/03/2022 11:24 AM EDTAddended by: MARYSE MELTON on: 08/03/2022 11:24 AM Modules accepted: Orders [facility] Work Phone: 1(256) 700-575903-20-2023 Note* Addendum Note - Maryse Melton PA-C - 08/03/2022 11:24 AM EDTAddended by: MARYSE MELTON on: 08/03/2022 11:24 AM Modules accepted: Orders [facility] Work Phone: 1(363) 936-629503-20-2023 Note* Addendum Note - Maryse Melton PA-C - 08/03/2022 11:24 AM EDTAddended by: MARYSE MELTON on: 08/03/2022 11:24 AM Modules accepted: Orders [facility] Work Phone: 1(119) 176-294103-20-2023 Miscellaneous Notes* Addendum Note - Maryse Melton PA-C - 08/03/2022 11:24 AM EDTAddended by: MARYSE MELTON on: 08/03/2022 11:24 AM Modules accepted: Orders documented in this [id number] History of Present illness Narrative* Wood Eng MD - 08/03/2022 10:48 AM EDT Maryse Mak [id number] @ACCTNB@ Wood Eng MD 08/03/22 Room/bed info not found Consultation No ref. provider found No chief complaint on file. History of Present Illness Mr. Maryse Mak is a 67-year-old male that we have been following status post coronary artery bypass grafting and now with the sternal fracture and nonunion. We have been trying to optimize him from the pulmonary as well as from the substance abuse standpoint. This patient has been doing much better since he is not coughing as bad after seeing Dr. Page. He comes today to discuss sternal rewiring possible plating. Attached please find the synopsis of the previous visits back in June: Mr. Maryse Mak is a 67-year-old male well-known to me because he is a status post coronary artery bypass grafting November 2021. Patient was referred back to us by Dr. Calloway due to musculoskeletal chest pain and a sternal nonunion. His past medical history is remarkable for alcohol abuse, cocaine abuse, tobacco dependence, arthritis, chronic back pain, hyperlipidemia, hypertension. His immediate postop. was characterized by episodes of severe coughing which created a vicious cycle of pain, discomfort and more coughing. At that time, he was found to have broken ribs in the left chest, he was treated with nerve blocks by anesthesia. At that time, a toy painter got involved to help out with the pain situation. The patient reports unspecific pain and discomfort throughout his body. 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 The patient informed us that he quit using cocaine but he has had episode of depression and anxiety. He would like to have his sternal nonunion fixed since He is complaining of anterior chest wall pain at the level of the nonunion. Mr. Mak also told us that if he is not coughing, the nonunion does not bother him as much. Unfortunately, patient still having coughing spells. Patient comes today to discuss possible treatment of his sternal nonunion. Assessment and Plan: Mr. Maryse Mak is a 67-year-old male with significant social historyrelated to alcohol abuse, cocaine abuse and nicotine dependence. He is still complaining of pain throughout his whole body and recently had what he believes is flu. Since the patient is having significant coughing spells, it is paramount to have him evaluated by pulmonary and hopefully have a better control of this cough. I had a lengthy discussion with Mr. Mak regarding his current conditionsand how we got to the situation. He understood that episodes of uncontrolled severe coughing secondary to his nicotine abuse plus not following sternal precautions were wan factors in the sternal nonunion. I spent significant amount of time laying out a plan that include: 1) checking for flu and COVID 2) outpatient consult with pulmonary to treat his bronchitis 3) once the patient has been followed by pulmonary and the cough is under control, reevaluate for sternal rewiring/plating if the patient is symptomatic 4) muscle relaxant for his back discomfort 5) smoking cessation Once the patient has been seen by pulmonary and the cough is under better control, we will obtain anoncontrast chest CT with reconstruction of the sternum to further evaluate the sternal nonunion. This test will be done if we proceed with surgery. An extensive discussion regarding sternal rewiring/plating took place. We informed the patient that if the sternum was too destroyed for rewiring, he might need a sternectomy. The rationale for a sternectomy in cases like this is to avoid the rubbingof the edges of the sternum which create pain and discomfort. He may need a limited partial pectoralis flap in order to cover the mediastinum. Assessment and Plan Mr. 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 I have explained to him the benefits and possible complication of his sternal rewiring and possible plating. Patient verbalized understanding and he is willing to proceed with surgery. We will be scheduling him most likely by the end of this week. Past Medical History: Diagnosis Date Alcohol abuse 06/19/2019 Arthritis Chronic back pain Clotting disorder (HCC) DVT Cocaine abuse (HCC) 10/28/2017 Coronary artery disease moderate stenosis of LAD and mild plaque in other vessels Homeless 06/19/2019 Hyperlipidemia Hypertension Tobacco dependence 04/29/2020 Past Surgical History: Procedure Laterality Date BACK SURGERY CABG W/ RADIAL ARTERY HARVEST N/A 11/20/2021 Procedure: CORONARY ARTERY BYPASS GRAFT X2 AND LEFT AND RIGHT INTERNAL MAMMARY ARTERY GRAFTS; Surgeon: Wood Eng MD; Location: [facility]; Service: Cardiothoracic CARDIAC CATHETERIZATION N/A 11/07/2021 Procedure: Coronary Angiogram; Surgeon: Minoo Grimm MD; Location: [employer] [employer] [employer]; Service: Cardiovascular HC LEFT HEART CATH N/A 11/07/2021 Procedure: Left Heart Cath; Surgeon: Minoo Grimm MD; Location: [facility]; Service: Cardiovascular left arm leg sx right and left blood clots Bilateral 2009 in [facility] SHOULDER SURGERY Current Outpatient Medications on File Prior to Visit Medication Sig Dispense Refill aspirin 81 MG EC tablet Take 1 (one) tablet (81 mg total) by mouth daily . 30 tablet 3 fluticasone propionate (FLONASE) 50 mcg/actuation nasal spray Instill 2 (two) sprays into each nostril daily . 16 g 12 xlhlswakibc-kjjcajfoo-xncszots (Trelegy Ellipta) 200-62.5-25 mcg DsDv Inhale 1 (one) Inhalation daily . 60 each 11 gabapentin (NEURONTIN) 800 MG tablet Take 1 (one) tablet (800 mg total) by mouth 3 (three) times a day . lisinopriL (PRINIVIL,ZESTRIL) 30 MG tablet Take 1 (one) tablet (30 mg total) by mouth daily . tamsulosin (FLOMAX) 0.4 mg capsule Take 1 (one) capsule (0.4 mg total) by mouth daily . traMADoL (ULTRAM) 50 mg tablet Take 1 (one) tablet (50 mg total) by mouth every 8 (eight) hours as needed . atorvastatin (LIPITOR) 10 MG tablet cloNIDine HCL (CATAPRES) 0.1 MG tablet doxycycline hyclate (VIBRA-TABS) 100 MG tablet Take 1 (one) tablet (100 mg total) by mouth 2 (two) times a day . (Patient not taking: Reported on 07/01/2022 .) 14 tablet 0 hydrOXYzine (ATARAX) 25 MG tablet Take 1 (one) tablet (25 mg total) by mouth 3 (three) times a day as needed . meloxicam (MOBIC) 15 MG tablet metoprolol succinate (TOPROL-XL) 25 MG 24 hr tablet No current facility-administered medications on file prior to visit. Allergies Allergen Reactions Atorvastatin Other (See Comments) ACHE ALL OVER. Family History Problem Relation Age of Onset Heart disease Father Heart attack Father Heart attack Maternal Uncle Heart disease Maternal Uncle Social History Socioeconomic History Marital status: Single Tobacco Use Smoking status: Every Day Packs/day: 0.25 Years: 45.00 Pack years: 11.25 Types: Cigarettes Smokeless tobacco: Never Tobacco comments: 2-3 CIGARETTES DAILY Vaping Use Vaping Use: Never used Substance and Sexual Activity Alcohol use: Not Currently Comment: PT STATES HE HAS BEEN DRINKING DAILY FOR THE PAST WEEK. no drinking for 6 months Drug use: Not Currently Types: Cocaine Comment: PT STATES HE HAS BEEN SMOKING CRACK FOR A WEEK. Pt states he has not any drugs for 6 months. Sexual activity: Not Currently control/protection: None Review of Systems Constitutional: Negative. HENT: Negative. Eyes: Negative. Cardiovascular: Negative. Respiratory: Negative. Endocrine: Negative. Skin: Negative. Musculoskeletal: Negative. Gastrointestinal: Negative. Genitourinary: Negative. Neurological: Negative. Psychiatric/Behavioral: Positive for substance abuse. The patient is nervous/anxious. BP 120/82 (BP Location: Left arm, Patient Position: Sitting) Pulse 87 Ht 6' Wt 108 kg (238 lb) SpO2 93% BMI 32.28 kg/m Physical Exam Constitutional: Appearance: Normal appearance. HENT: Nose: Nose normal. Eyes: Pupils: Pupils are equal, round, and reactive to light. Cardiovascular: Rate and Rhythm: Normal rate. Pulses: Normal pulses. Pulmonary: Effort: Pulmonary effort is normal. Abdominal: General: Abdomen is flat. Musculoskeletal: General: Normal range of motion. Cervical back: Normal range of motion. Skin: General: Skin is warm. Neurological: General: No focal deficit present. Mental Status: He is alert. WBC Date Value Ref Range Status 07/30/2022 11.27 (H) 4.50 - 11.00 K/mcL Final 02/21/2018 12.4 (H) 3.6 - 10.4 K/mcL Final Hemoglobin Date Value Ref Range Status 07/30/2022 16.5 13.5 - 17.5 g/dL Final 02/21/2018 16.9 12.9 - 16.9 g/dL Final Hemoglobin, Blood Gas Date Value Ref Range Status 11/21/2021 12.7 (L) 13.5 - 17.5 g/dL Final Hematocrit, Calculated Date Value Ref Range Status 11/21/2021 39.1 (L) 41.0 - 53.0 % Final Hematocrit Date Value Ref Range Status 07/30/2022 51.4 41.0 - 53.0 % Final MCV Date Value Ref Range Status 07/30/2022 89.9 80.0 - 100.0 fL Final Platelets Date Value Ref Range Status 07/30/2022 278 150 - 400 K/mcL Final 02/21/2018 214 139 - 354 K/mcL Final Hemoglobin A1C Date Value Ref Range Status 07/30/2022 6.1 (H) 4.0 - 5.6 % Final Glucose Date Value Ref Range Status 07/30/2022 85 65 - 99 mg/dL Final 11/20/2021 135 (H) 65 - 99 mg/dL Final Calcium Date Value Ref Range Status 07/30/2022 9.6 8.4 - 10.2 mg/dL Final Sodium Date Value Ref Range Status 07/30/2022 140 135 - 145 mmol/L Final 11/20/2021 141 135 - 145 mmol/L Final Potassium Date Value Ref Range Status 07/30/2022 4.3 3.5 - 5.1 mmol/L Final 11/20/2021 4.4 3.5 - 5.1 mmol/L Final Chloride Date Value Ref Range Status 07/30/2022 106 98 - 108 mmol/L Final 11/20/2021 110 (H) 98 - 108 mmol/L Final BUN Date Value Ref Range Status 07/30/2022 18 8 - 25 mg/dL Final 02/21/2018 11 8 - 25 mg/dL Final Creatinine Date Value Ref Range Status 07/30/2022 1.19 0.80 - 1.30 mg/dL Final 02/21/2018 1.10 0.80 - 1.30 mg/dL Final INR Date Value Ref Range Status 12/31/2021 1.0 0.8 - 1.1 Final 08/04/2017 0.98 Final Comment: The [employer] recommended therapeutic range for Warfarin (Coumadin) therapy goals: PROPHYLAXIS/TREATMENT of: INR Venous Thrombosis, Pulmonary Embolism 2.0-3.0 Prevention of VTE (Orthopedic Surgery) 2.0-3.0 Atrial Fibrillation 2.0-3.0 Myocardial Infarction 2.0-3.0 Mechanical Prosthetic Heart Valves (Aortic position) 2.0-3.0 Mechanical Prosthetic Heart Valves (Mitral Position) 2.5-3.5 [employer] evidence-based clinical practice guidelines. CHEST. 2012 (9th ed) APTT Date Value Ref Range Status 11/26/2021 31 23 - 34 seconds Final Albumin Date Value Ref Range Status 07/30/2022 3.2 3.2 - 5.2 g/dL Final ] Problem List Items Addressed This Visit None documented in this [id number] Hospital Discharge instructions * Discharge Instructions* Chema Webber MD - 07/07/2022 4:[address] scans noted several abnormalities which will require follow-up. The radiologist recommended a CT angiogram of the right leg. Please call Dr. Bethea's office in the AM. * Attachments The following attachments cannot be sent through Care Everywhere. * Rib Fracture (Canadian) * Knee Pain or Injury ([place]) [facility]* Markel Fuller RN - 07/07/2022 2:59 AM EST Pt states Dilaudid eased pain until he had to go move around at CT. States pain has returned [facility] Emergency department Note* Markel Fuller RN - 07/07/2022 2:59 AM EST Pt states Dilaudid eased pain until he had to go move around at CT. States pain has returned * Chema Webber MD - 07/07/2022 1:58 AM EST EMERGENCY DEPARTMENT REPORT [facility] EMERGENCY DEPARTMENT SERVICE DATE: 07/07/22 PCP: Paulette Carballo CHIEF COMPLAINT: Fall Chief Complaint Patient presents with Fall Fell down outdoor porch steps on Wednesday and today c/o right sided hip, rib, and knee pain HPI: Maryse Mak is a 67 y.o. male who presents with complaint of fall. Patient reports that on Wednesday he fell on the stairs injuring his left ribs, right hip, and right knee. Patient reports pain to be 10 out of 10. Pain is described as sharp. No resolving factor for pain. Patient denies injury to his head. No bowel or bladder incontinence. REVIEW OF SYSTEMS: As documented in HPI. General: No fevers or chills. Eyes: No blurred vision or photophobia. ENT: No sore throat or earache. Cardiovascular: No chest pain. Respiratory: Patient reports cough. Gastrointestinal: No vomiting or diarrhea. Genitourinary: No dysuria or hematuria. Musculoskeletal: Right hip and right knee injury. Neurologic: No head injury. Skin: No rashes or bruises. Psychiatric: No anxiety or depression. Remaining systems reviewed and negative other than the history of present illness. PAST MEDICAL HISTORY: Past Medical History: Diagnosis Date Back pain, chronic Depressive disorder, not elsewhere classified Essential hypertension, benign Hyperlipidemia RI (myocardial infarction) Migraine SURGICAL HISTORY: Past Surgical History: Procedure Laterality Date ARM SURGERY BACK SURGERY HEART CATHETERIZATION CURRENT MEDICATIONS: Patient's Medications New Prescriptions No medications on file Previous Medications ASPIRIN 81 MG CHEW TAB CHEWABLE TABLET Chew 1 tablet daily. GABAPENTIN 800 MG TABLET Take 1 tablet by mouth Three times a day. LISINOPRIL 10 MG PO TABS Take 1 tablet by mouth daily. NAPROXEN 500 MG PO TABS take 1 Tab by mouth 2 times daily as needed for Pain. OXYCODONE 80 MG PO TAB SR take 60 mg by mouth 4 times daily. PREDNISONE 20 MG TABLET Take 2 tablets by mouth daily. TRAMADOL 50 MG TABLET Take 1 tablet by mouth Every 8 hours as needed. Modified Medications No medications on file Discontinued Medications No medications on file ALLERGIES: No Known Allergies FAMILY HISTORY: History reviewed. No pertinent family history. SOCIAL HISTORY: Social History Socioeconomic History Marital status: Single Spouse name: Not on file Number of children: Not on file Years of education: Not on file Highest education level: Not on file Occupational History Not on file Tobacco Use Smoking status: Every Day Packs/day: 0.50 Types: Cigarettes Smokeless tobacco: Current Tobacco comments: Trying to quit smoking Substance and Sexual Activity Alcohol use: Yes Drug use: No Sexual activity: Not on file Other Topics Concern Not on file Social History Narrative Not on file Social Determinants of Health Financial Resource Strain: Not on file Food Insecurity: Not on file Transportation Needs: Not on file Physical Activity: Not on file Stress: Not on file Social Connections: Not on file Intimate Partner Violence: Not on file Housing Stability: Not on file PHYSICAL EXAM: Constitutional: Non-toxic appearance. HEENT: Normocephalic and atraumatic. No mucosal edema, rhinorrhea, or nasal deformity. Uvula is midline, no asymmetry or fullness. Mucous membranes are moist. No oral lesions. No posterior oropharyngeal exudate or erythema. No stridor. Eyes: Pupils are equal and round. No scleral icterus. Neck: Neck is supple. Cardiovascular: Regular rate and rhythm, normal heart sounds and intact distal pulses. No murmur heard. Pulmonary/Chest: Effort normal. Lungs are clear without wheezes, rales or rhonchi. Abdomen: Soft, nontender, nondistended. Musculoskeletal: Normal range of motion of major joints. No edema, tenderness or deformity. Neurological: Neurovascularly intact in the right lower extremity. Skin: Right lower extremity is warm to touch. VITAL SIGNS DURING ED VISIT: Patient Vitals for the past 24 hrs: BP Temp Temp src Pulse Resp SpO2 Height 07/07/22 0507 (!) 133/95 -- -- 78 16 98 % -- 07/07/22 0207 127/73 -- -- 85 (!) 30 96 % -- 07/07/22 0130 134/87 -- -- 89 (!) 37 95 % -- 07/07/22 0056 -- -- -- -- -- -- 1.829 m (6') 07/07/22 0055 (!) 125/95 97.7 F (36.5 C) Oral 104 22 96 % -- ED COURSE & MEDICAL DECISION MAKING: Patient provided with knee immobilizer brace. Radiologist recommended outpatient CTA. Patient referred to vascular surgery. Discharge instructions noted that there were several abnormalities on CT imaging that will require follow-up. ORDERS/RESULTS: Orders Placed This Encounter CT SPINE CERVICAL WITHOUT CONTRAST XR KNEE RIGHT 3 VIEWS XR HIP RIGHT [address] CHEST ABDOMEN PELVIS WITH CONTRAST CBC, EDIF, PLATELET COMPREHENSIVE METABOLIC PANEL Troponin I, High sensitivity AMB REFERRAL TO VASCULAR SURGERY HYDROmorphone (DILAUDID) injection 0.5 mg iodixanol (VISIPAQUE) injection 320 mg/mL for [facility] IR Sodium chloride 0.9% IV solution 75 mL HYDROmorphone (DILAUDID) injection 0.5 mg hydroCODone-acetaminophen (NORCO) 5-325 MG per tablet 1 tablet Results for orders placed or performed during the hospital encounter of 07/07/22 CBC, EDIF, PLATELET Result Value Ref Range WBC (WHITE BLOOD COUNT) 10.6 3.6 - 11.0 10*3/uL RBC 5.11 4.0 - 6.1 10*6/uL HEMOGLOBIN (HGB) 14.6 14.0 - 18.0 G/DL HEMATOCRIT (HCT) 44.7 42.0 - 52.0 % MEAN CELL VOLUME 87.5 80.0 - 100.0 FL Mean Cell HGB 28.6 26.0 - 35.0 PG MEAN CELL HGB CONCENTRATION 32.7 27.0 - 37.0 G/DL RBC DISTRIBUTION 16.5 (H) 11.5 - 14.5 % PLATELET COUNT 198 130.0 - 400.0 10*3/uL MEAN PLATELET VOLUME 8.6 7.4 - 11.0 FL DIFFERENTIAL TYPE AUTO DIFF % NEUTROPHILS 63.1 37.0 - 75.0 % LYMPHOCYTE 24.9 20.0 - 55.0 % MONOCYTE % 8.8 0.0 - 10.0 % EOSINOPHIL % 2.6 0.0 - 11.0 % BASOPHIL % 0.6 0.0 - 2.0 % Absolute Neutrophil Count 6.7 (H) 1.4 - 6.5 10*3/uL LYMPHOCYTES, ABSOLUTE 2.6 1.2 - 3.4 10*3/uL MONOCYTES, ABSOLUTE 0.9 (H) 0.0 - 0.7 10*3/uL ABSOLUTE EOSINOPHIL COUNT 0.3 0.0 - 0.7 10*3/uL ABSOLUTE BASOPHIL COUNT 0.1 0.0 - 0.2 10*3/uL COMPREHENSIVE METABOLIC PANEL Result Value Ref Range Glucose 103 (H) 70 - 100 MG/DL BUN 11 7 - 20 MG/DL CREATININE SERUM 1.04 0.66 - 1.25 MG/DL SODIUM 139 136 - 145 MMOL/L POTASSIUM 3.7 3.5 - 5.1 MMOL/L CHLORIDE 106 98 - 107 MMOL/L CALCIUM 8.5 8.4 - 10.2 MG/DL PROTEIN, TOTAL 6.2 (L) 6.3 - 8.2 GM/DL Albumin 3.5 3.5 - 5.0 G/dl BILIRUBIN, TOTAL 0.4 0.2 - 1.2 MG/DL AST 19 15 - 41 IU/L ALKALINE PHOSPHATASE 75 38 - 126 IU/L CARBON DIOXIDE (CO2) 26 22 - 30 MMOL/L A/G Ratio 1.3 1.3 - 2.2 RATIO ALT 22 17 - 63 IU/L ESTIMATED GFR, NON AMER 76 ml/min/1.73sq.m ESTIMATED GFR, 92 ml/min/1.73sq.m GFR COMMENT Average GFR for 60-69 years old = 85. TROPONIN I, HIGH SENSITIVITY Result Value Ref Range TROPONIN I, HIGH SENSITIVITY 8 0 - 20 pg/mL IMAGING: CT CHEST ABDOMEN PELVIS WITH CONTRAST Final Result IMPRESSION: There is no acute cardiopulmonary process. There is no consolidation or infiltrate or pleural effusion. There is no acute intraperitoneal process. There is no solid organ injury. There is a stable 2.1 cm hypodense lesion at the dome of the liver which most commonly represents a cyst and a new 0.5 cm hypodense lesion along the anterior margin of the inferior aspect of the right lobe of the liver which is too small to further characterize by computed tomography. Stable 1.7 cm right renal cyst. Osseous findings as described in the body the report. There are stable ununited fractures of the left third through sixth ribs with associated nonbridging callus suggesting healing fractures. There is no pneumothorax. There is no acute fracture. Atherosclerotic disease as described. CT SPINE CERVICAL WITHOUT CONTRAST Final Result IMPRESSION: 1. Multilevel degenerative changes of the cervical spine without evidence for an acute fracture or traumatic malalignment. XR HIP RIGHT 2 VIEWS Final Result IMPRESSION: 1. No evidence of pelvic or right hip fracture. 2. Moderate to severe osteoarthritis of the right hip, similar to prior. XR KNEE RIGHT 3 VIEWS Final Result IMPRESSION: There is no acute fracture. There are moderate degenerative changes at the medial compartment of the femoral-tibial articulation. The bony structures are osteopenic. There are atheromatous calcifications within the femoral and popliteal arteries. There is a 1.2 cm rounded focus of peripheral calcification within the popliteal fossa and the possibility of a peripherally calcified popliteal artery aneurysm cannot be excluded. A scheduled CTA examination of the right lower extremity is recommended for more detailed evaluation. CLINICAL IMPRESSION: 1. Fall, initial encounter 2. Rib injury 3. Injury of right knee, initial encounter DISPOSITION: Discharged home. No follow-ups on file. New Prescriptions No medications on file Discontinued Medications No medications on file An after visit summary was printed and given to the patient with the above information. Portions of this chart were created using [employer] electronic dictation. Please excuse any typographical or grammatical errors contained herein. Chema Webber MD 07/07/22 0539 * Markel Fuller RN - 07/07/2022 1:29 AM EST [facility] Emergency department Note* Chema Webber MD - 07/07/2022 1:58 AM EST EMERGENCY DEPARTMENT REPORT [facility] EMERGENCY DEPARTMENT SERVICE DATE: 07/07/22 PCP: Paulette Carballo CHIEF COMPLAINT: Fall Chief Complaint Patient presents with Fall Fell down outdoor porch steps on Wednesday and today c/o right sided hip, rib, and knee pain HPI: Maryse Mak is a 67 y.o. male who presents with complaint of fall. Patient reports that on Wednesday he fell on the stairs injuring his left ribs, right hip, and right knee. Patient reports pain to be 10 out of 10. Pain is described as sharp. No resolving factor for pain. Patient denies injury to his head. No bowel or bladder incontinence. REVIEW OF SYSTEMS: As documented in HPI. General: No fevers or chills. Eyes: No blurred vision or photophobia. ENT: No sore throat or earache. Cardiovascular: No chest pain. Respiratory: Patient reports cough. Gastrointestinal: No vomiting or diarrhea. Genitourinary: No dysuria or hematuria. Musculoskeletal: Right hip and right knee injury. Neurologic: No head injury. Skin: No rashes or bruises. Psychiatric: No anxiety or depression. Remaining systems reviewed and negative other than the history of present illness. PAST MEDICAL HISTORY: Past Medical History: Diagnosis Date Back pain, chronic Depressive disorder, not elsewhere classified Essential hypertension, benign Hyperlipidemia RI (myocardial infarction) Migraine SURGICAL HISTORY: Past Surgical History: Procedure Laterality Date ARM SURGERY BACK SURGERY HEART CATHETERIZATION CURRENT MEDICATIONS: Patient's Medications New Prescriptions No medications on file Previous Medications ASPIRIN 81 MG CHEW TAB CHEWABLE TABLET Chew 1 tablet daily. GABAPENTIN 800 MG TABLET Take 1 tablet by mouth Three times a day. LISINOPRIL 10 MG PO TABS Take 1 tablet by mouth daily. NAPROXEN 500 MG PO TABS take 1 Tab by mouth 2 times daily as needed for Pain. OXYCODONE 80 MG PO TAB SR take 60 mg by mouth 4 times daily. PREDNISONE 20 MG TABLET Take 2 tablets by mouth daily. TRAMADOL 50 MG TABLET Take 1 tablet by mouth Every 8 hours as needed. Modified Medications No medications on file Discontinued Medications No medications on file ALLERGIES: No Known Allergies FAMILY HISTORY: History reviewed. No pertinent family history. SOCIAL HISTORY: Social History Socioeconomic History Marital status: Single Spouse name: Not on file Number of children: Not on file Years of education: Not on file Highest education level: Not on file Occupational History Not on file Tobacco Use Smoking status: Every Day Packs/day: 0.50 Types: Cigarettes Smokeless tobacco: Current Tobacco comments: Trying to quit smoking Substance and Sexual Activity Alcohol use: Yes Drug use: No Sexual activity: Not on file Other Topics Concern Not on file Social History Narrative Not on file Social Determinants of Health Financial Resource Strain: Not on file Food Insecurity: Not on file Transportation Needs: Not on file Physical Activity: Not on file Stress: Not on file Social Connections: Not on file Intimate Partner Violence: Not on file Housing Stability: Not on file PHYSICAL EXAM: Constitutional: Non-toxic appearance. HEENT: Normocephalic and atraumatic. No mucosal edema, rhinorrhea, or nasal deformity. Uvula is midline, no asymmetry or fullness. Mucous membranes are moist. No oral lesions. No posterior oropharyngeal exudate or erythema. No stridor. Eyes: Pupils are equal and round. No scleral icterus. Neck: Neck is supple. Cardiovascular: Regular rate and rhythm, normal heart sounds and intact distal pulses. No murmur heard. Pulmonary/Chest: Effort normal. Lungs are clear without wheezes, rales or rhonchi. Abdomen: Soft, nontender, nondistended. Musculoskeletal: Normal range of motion of major joints. No edema, tenderness or deformity. Neurological: Neurovascularly intact in the right lower extremity. Skin: Right lower extremity is warm to touch. VITAL SIGNS DURING ED VISIT: Patient Vitals for the past 24 hrs: BP Temp Temp src Pulse Resp SpO2 Height 07/07/22 0507 (!) 133/95 -- -- 78 16 98 % -- 07/07/22 0207 127/73 -- -- 85 (!) 30 96 % -- 07/07/22 0130 134/87 -- -- 89 (!) 37 95 % -- 07/07/22 0056 -- -- -- -- -- -- 1.829 m (6') 07/07/22 0055 (!) 125/95 97.7 F (36.5 C) Oral 104 22 96 % -- ED COURSE & MEDICAL DECISION MAKING: Patient provided with knee immobilizer brace. Radiologist recommended outpatient CTA. Patient referred to vascular surgery. Discharge instructions noted that there were several abnormalities on CT imaging that will require follow-up. ORDERS/RESULTS: Orders Placed This Encounter CT SPINE CERVICAL WITHOUT CONTRAST XR KNEE RIGHT 3 VIEWS XR HIP RIGHT [address] CHEST ABDOMEN PELVIS WITH CONTRAST CBC, EDIF, PLATELET COMPREHENSIVE METABOLIC PANEL Troponin I, High sensitivity AMB REFERRAL TO VASCULAR SURGERY HYDROmorphone (DILAUDID) injection 0.5 mg iodixanol (VISIPAQUE) injection 320 mg/mL for [facility] IR Sodium chloride 0.9% IV solution 75 mL HYDROmorphone (DILAUDID) injection 0.5 mg hydroCODone-acetaminophen (NORCO) 5-325 MG per tablet 1 tablet Results for orders placed or performed during the hospital encounter of 07/07/22 CBC, EDIF, PLATELET Result Value Ref Range WBC (WHITE BLOOD COUNT) 10.6 3.6 - 11.0 10*3/uL RBC 5.11 4.0 - 6.1 10*6/uL HEMOGLOBIN (HGB) 14.6 14.0 - 18.0 G/DL HEMATOCRIT (HCT) 44.7 42.0 - 52.0 % MEAN CELL VOLUME 87.5 80.0 - 100.0 FL Mean Cell HGB 28.6 26.0 - 35.0 PG MEAN CELL HGB CONCENTRATION 32.7 27.0 - 37.0 G/DL RBC DISTRIBUTION 16.5 (H) 11.5 - 14.5 % PLATELET COUNT 198 130.0 - 400.0 10*3/uL MEAN PLATELET VOLUME 8.6 7.4 - 11.0 FL DIFFERENTIAL TYPE AUTO DIFF % NEUTROPHILS 63.1 37.0 - 75.0 % LYMPHOCYTE 24.9 20.0 - 55.0 % MONOCYTE % 8.8 0.0 - 10.0 % EOSINOPHIL % 2.6 0.0 - 11.0 % BASOPHIL % 0.6 0.0 - 2.0 % Absolute Neutrophil Count 6.7 (H) 1.4 - 6.5 10*3/uL LYMPHOCYTES, ABSOLUTE 2.6 1.2 - 3.4 10*3/uL MONOCYTES, ABSOLUTE 0.9 (H) 0.0 - 0.7 10*3/uL ABSOLUTE EOSINOPHIL COUNT 0.3 0.0 - 0.7 10*3/uL ABSOLUTE BASOPHIL COUNT 0.1 0.0 - 0.2 10*3/uL COMPREHENSIVE METABOLIC PANEL Result Value Ref Range Glucose 103 (H) 70 - 100 MG/DL BUN 11 7 - 20 MG/DL CREATININE SERUM 1.04 0.66 - 1.25 MG/DL SODIUM 139 136 - 145 MMOL/L POTASSIUM 3.7 3.5 - 5.1 MMOL/L CHLORIDE 106 98 - 107 MMOL/L CALCIUM 8.5 8.4 - 10.2 MG/DL PROTEIN, TOTAL 6.2 (L) 6.3 - 8.2 GM/DL Albumin 3.5 3.5 - 5.0 G/dl BILIRUBIN, TOTAL 0.4 0.2 - 1.2 MG/DL AST 19 15 - 41 IU/L ALKALINE PHOSPHATASE 75 38 - 126 IU/L CARBON DIOXIDE (CO2) 26 22 - 30 MMOL/L A/G Ratio 1.3 1.3 - 2.2 RATIO ALT 22 17 - 63 IU/L ESTIMATED GFR, NON AMER 76 ml/min/1.73sq.m ESTIMATED GFR, 92 ml/min/1.73sq.m GFR COMMENT Average GFR for 60-69 years old = 85. TROPONIN I, HIGH SENSITIVITY Result Value Ref Range TROPONIN I, HIGH SENSITIVITY 8 0 - 20 pg/mL IMAGING: CT CHEST ABDOMEN PELVIS WITH CONTRAST Final Result IMPRESSION: There is no acute cardiopulmonary process. There is no consolidation or infiltrate or pleural effusion. There is no acute intraperitoneal process. There is no solid organ injury. There is a stable 2.1 cm hypodense lesion at the dome of the liver which most commonly represents a cyst and a new 0.5 cm hypodense lesion along the anterior margin of the inferior aspect of the right lobe of the liver which is too small to further characterize by computed tomography. Stable 1.7 cm right renal cyst. Osseous findings as described in the body the report. There are stable ununited fractures of the left third through sixth ribs with associated nonbridging callus suggesting healing fractures. There is no pneumothorax. There is no acute fracture. Atherosclerotic disease as described. CT SPINE CERVICAL WITHOUT CONTRAST Final Result IMPRESSION: 1. Multilevel degenerative changes of the cervical spine without evidence for an acute fracture or traumatic malalignment. XR HIP RIGHT 2 VIEWS Final Result IMPRESSION: 1. No evidence of pelvic or right hip fracture. 2. Moderate to severe osteoarthritis of the right hip, similar to prior. XR KNEE RIGHT 3 VIEWS Final Result IMPRESSION: There is no acute fracture. There are moderate degenerative changes at the medial compartment of the femoral-tibial articulation. The bony structures are osteopenic. There are atheromatous calcifications within the femoral and popliteal arteries. There is a 1.2 cm rounded focus of peripheral calcification within the popliteal fossa and the possibility of a peripherally calcified popliteal artery aneurysm cannot be excluded. A scheduled CTA examination of the right lower extremity is recommended for more detailed evaluation. CLINICAL IMPRESSION: 1. Fall, initial encounter 2. Rib injury 3. Injury of right knee, initial encounter DISPOSITION: Discharged home. No follow-ups on file. New Prescriptions No medications on file Discontinued Medications No medications on file An after visit summary was printed and given to the patient with the above information. Portions of this chart were created using [employer] electronic dictation. Please excuse any typographical or grammatical errors contained herein. Chema Webber MD 07/07/22 0539 [employer] Work Phone: [phone] 740-673202-21-2023 Emergency department Note* Markel Fuller RN - 07/07/2022 1:29 AM EST [employer]02-15-2023 History of Present illness Narrative* Abigail Page MD - 07/01/2022 9:49 AM EST [facility] [id number] [facility] [address] [place] [address] Name: Maryse Mak Age: 67 y.o. : 1955 Today's date: 07/01/22 Outpatient Pulmonary Consult Note Chief Complaint Patient presents with Cough New patient referral from Julio C Zheng. The patient voices a chronic cough for about a year, itcan be dry or productive. Maryse Mak is a 67 y.o. male who presents to Pulmonary clinic for evaluation of cough. They were referred by Dr. Eng. HPI: Mr. Mak is a 67 year old male smoker with history of alcohol abuse, DVT, PVD, substance abuse withcocaine, CAD, chronic back pain, HTN and CAD. He underwent 2vCABG complicated by acute left hemothorax requiring chest tube placement on 11/25/21 and ultimately requiring intrapleural lytics with ultimate removal on 12/04/21. He post operative course was complicated by complaints of cough and left sided chest pain and disunion of his sternotomy and rib fractures. Over the past several months he hassuffered with chest pain and chronic cough. He was referred to pulmonary by Cardiothoracic surgery for management of chronic cough. On evaluation prior to CABG he had PFTS done that confirmed diagnosis of COPD. He does not require oxygen. He has been smoking a few cigarettes a day after quitting for 3 months post CABG. He does note some post nasal drop that is a trigger for the cough. He is not coughing up blood. He is not having fever or chills. He was recently seen in ER for same complaints and a CT PE was relatively unremarkable with respect to the lung parenchyma. However did not bone fractures in sternum and ribs. He has no previous history of lung disease. He said his breathing was at his baseline until about 3 years ago when he started to get winded and cough more. Things got much worse after his CABG. He has notused inhalers. He does endorse some GAINES but he generally is not too limited by shortness of breath. Past Medical History: Diagnosis Date Alcohol abuse 06/19/2019 Arthritis Chronic back pain Clotting disorder (HCC) DVT Cocaine abuse (HCC) 10/28/2017 Coronary artery disease moderate stenosis of LAD and mild plaque in other vessels Homeless 06/19/2019 Hyperlipidemia Hypertension Tobacco dependence 04/29/2020 Past Surgical History: Procedure Laterality Date BACK SURGERY CABG W/ RADIAL ARTERY HARVEST N/A 11/20/2021 Procedure: CORONARY ARTERY BYPASS GRAFT X2 AND LEFT AND RIGHT INTERNAL MAMMARY ARTERY GRAFTS; Surgeon: Wood Eng MD; Location: Main OR; Service: Cardiothoracic CARDIAC CATHETERIZATION N/A 11/07/2021 Procedure: Coronary Angiogram; Surgeon: Minoo Grimm MD; Location: [facility] [employer] [employer]; Service: Cardiovascular HC LEFT HEART CATH N/A 11/07/2021 Procedure: Left Heart Cath; Surgeon: Minoo Grimm MD; Location: [employer]; Service: Cardiovascular left arm leg sx right and left blood clots Bilateral 2010 in [facility] SHOULDER SURGERY Family History Problem Relation Age of Onset Heart disease Father Heart attack Father Heart attack Maternal Uncle Heart disease Maternal Uncle Other pulmonary history: None Social History Socioeconomic History Marital status: Single Tobacco Use Smoking status: Every Day Packs/day: 0.25 Years: 45.00 Pack years: 11.25 Types: Cigarettes Last attempt to quit: 11/20/2021 Years since quittin.6 Smokeless tobacco: Never Tobacco comments: 2-3 CIGARETTES DAILY Vaping Use Vaping Use: Never used Substance and Sexual Activity Alcohol use: Not Currently Comment: PT STATES HE HAS BEEN DRINKING DAILY FOR THE PAST WEEK Drug use: Not Currently Types: Cocaine Comment: PT STATES HE HAS BEEN SMOKING CRACK FOR A WEEK Sexual activity: Not Currently control/protection: None Review of Systems All other systems reviewed and are negative. Objective: Outpatient Medications as of 07/01/2022 Medication Sig aspirin 81 MG EC tablet Take 1 (one) tablet (81 mg total) by mouth daily . gabapentin (NEURONTIN) 800 MG tablet Take 1 (one) tablet (800 mg total) by mouth 3 (three) times a day . hydrOXYzine (ATARAX) 25 MG tablet Take 1 (one) tablet (25 mg total) by mouth 3 (three) times a day as needed . lisinopriL (PRINIVIL,ZESTRIL) 30 MG tablet Take 1 (one) tablet (30 mg total) by mouth daily . methocarbamoL (ROBAXIN) 500 MG tablet Take 1 (one) tablet (500 mg total) by mouth 2 (two) times a day as needed for muscle spasms . predniSONE (DELTASONE) 20 MG tablet Take 1 (one) tablet (20 mg total) by mouth daily for 10 days . tamsulosin (FLOMAX) 0.4 mg capsule Take 1 (one) capsule (0.4 mg total) by mouth daily . traMADoL (ULTRAM) 50 mg tablet Take 1 (one) tablet (50 mg total) by mouth every 8 (eight) hours as needed . doxycycline hyclate (VIBRA-TABS) 100 MG tablet Take 1 (one) tablet (100 mg total) by mouth 2 (two) times a day . (Patient not taking: Reported on 07/01/2022 .) Allergies Allergen Reactions Atorvastatin Other (See Comments) ACHE ALL OVER. BP 121/79 (BP Location: Left arm, Patient Position: Sitting, BP Cuff Size: Adult) Pulse 81 Temp98.3 F (36.8 C) (Temporal) Ht 6' Wt 108.1 kg (238 lb 6.4 oz) SpO2 95% BMI 32.33 kg/m from IP Vitals Flowsheet Date/Time Weight 07/01/22 0935 108.1 Physical Exam: Vitals reviewed Gen: Alert and oriented x 3, In no apparent distress HEENT: Head: Normocephalic, no lesions, without obvious abnormality. Neck: no mass, no stridor Cardio: regular rate and rhythm Resp: clear to auscultation bilaterally, no wheezes or crackles, no tachypnea or accessory muscle use Abd: soft, nontender MSK: Moves all four extremities spontaneously. Neuro: Grossly normal without focal findings Skin: no rashes, no jaundice PFT Results PFT Pre-bronchodilator 11/07/21 1628 FVC 4.34 (% predicted) 87 FEV1 2.72 (% predicted) 73 FEV1/FVC 63 VC 4.34 (% predicted) 87 PFT Post-bronchodilator 11/07/21 1628 FVC 4.53 (% predicted) 91 (% change) 4 FEV1 3.02 (% predicted) 81 (% change) 11 FEV1/FVC 67 PFT Lung Volumes 11/07/21 1628 TLC 9.35 (% predicted) 132 RV 5.01 (% predicted) 194 PFT Diffusion 11/07/21 1628 DLCO 26 (% predicted) 23.5 DLCO/VA 3.72 (% predicted) 103 Interpretation: Mild reversible obstruction with hyperinflation and air trapping and severe gas exchange impairment. Imaging: Personally reviewed images from CT Chest 06/21/22 IMPRESSION: No pulmonary embolism or aortic dissection. Minimal scarring at the right lung base in the region of previously seen cavitary nodule. Postoperative changes of coronary artery bypass graft, with continued mild cardiomegaly. Subacute left-sided rib fractures, as described above. Assessment and Plan: Maryse was seen today for cough. Diagnoses and all orders for this visit: Chronic cough - Ambulatory referral to Pulmonology Mr. Mak is a 67 year old male smoker with history of alcohol abuse, DVT, PVD, substance abuse withcocaine, CAD, chronic back pain, HTN and CAD. He underwent 2vCABG complicated by acute left hemothorax requiring chest tube placement on 11/25/21 and ultimately requiring intrapleural lytics with ultimate removal on 12/04/21. He post operative course was complicated by complaints of cough and left sided chest pain and disunion of his sternotomy and rib fractures. Over the past several months he hassuffered with chest pain and chronic cough. He was referred to pulmonary by Cardiothoracic surgery for management of chronic cough. His cough is likely multifactorial related to COPD and post nasal drip. Will start Trelegy inhaler and prescribed flonase. Provided info on inhaler financial assistance. He will likely benefit from CT lung surveillance annually, but he had recent CT Chest. Will discuss at next visit. 8 minutes smoking cessation counseling provided. He would like to continue to try quitting. withoutpharmacologic or nicotine assistance. RTC in 3 months Abigail Page MD documented in this [id number] History of Present illness Narrative* Wood Eng MD - 06/26/2022 10:05 AM EST Maryse Mak [phone] [facility] Wood Eng MD 06/26/22 Room/bed info not found Consultation No ref. provider found Chief Complaint Patient presents with Follow-up Trouble with his chest since surgery History of Present Illness: Mr. Maryse Mak is a 67-year-old male well- known to me becausehe is a status post coronary artery bypass grafting November 2021. Patient was referred back to us by Dr. Calloway due to musculoskeletal chest pain and a sternal nonunion. His past medical history is remarkable for alcohol abuse, cocaine abuse, tobacco dependence, arthritis, chronic back pain, hyperlipidemia, hypertension. His immediate postop. was characterized by episodes of severe coughing which created a vicious cycle of pain, discomfort and more coughing. At that time, he was found to have broken ribs in the left chest, he was treated with nerve blocks by anesthesia. At that time, a toy painter got involved to help out with the pain situation. The patient reports unspecific pain and discomfort throughout his body. 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 The patient informed us that he quit using cocaine but he has had episode of depression and anxiety. He would like to have his sternal nonunion fixed since He is complaining of anterior chest wall pain at the level of the nonunion. Mr. Mak also told us that if he is not coughing, the nonunion does not bother him as much. Unfortunately, patient still having coughing spells. Patient comes today to discuss possible treatment of his sternal nonunion. Assessment and Plan: Mr. Maryse Mak is a 67-year-old male with significant social historyrelated to alcohol abuse, cocaine abuse and nicotine dependence. He is still complaining of pain throughout his whole body and recently had what he believes is flu. Since the patient is having significant coughing spells, it is paramount to have him evaluated by pulmonary and hopefully have a better control of this cough. I had a lengthy discussion with Mr. Mak regarding his current conditionsand how we got to the situation. He understood that episodes of uncontrolled severe coughing secondary to his nicotine abuse plus not following sternal precautions were wan factors in the sternal nonunion. I spent significant amount of time laying out a plan that include: 1) checking for flu and COVID 2) outpatient consult with pulmonary to treat his bronchitis 3) once the patient has been followed by pulmonary and the cough is under control, reevaluate for sternal rewiring/plating if the patient is symptomatic 4) muscle relaxant for his back discomfort 5) smoking cessation Once the patient has been seen by pulmonary and the cough is under better control, we will obtain anoncontrast chest CT with reconstruction of the sternum to further evaluate the sternal nonunion. This test will be done if we proceed with surgery. An extensive discussion regarding sternal rewiring/plating took place. We informed the patient that if the sternum was too destroyed for rewiring, he might need a sternectomy. The rationale for a sternectomy in cases like this is to avoid the rubbingof the edges of the sternum which create pain and discomfort. He may need a limited partial pectoralis flap in order to cover the mediastinum. Past Medical History: Diagnosis Date Alcohol abuse 06/19/2019 Arthritis Chronic back pain Clotting disorder (HCC) DVT Cocaine abuse (HCC) 10/28/2017 Coronary artery disease moderate stenosis of LAD and mild plaque in other vessels Homeless 06/19/2019 Hyperlipidemia Hypertension Tobacco dependence 04/29/2020 Past Surgical History: Procedure Laterality Date BACK SURGERY CABG W/ RADIAL ARTERY HARVEST N/A 11/20/2021 Procedure: CORONARY ARTERY BYPASS GRAFT X2 AND LEFT AND RIGHT INTERNAL MAMMARY ARTERY GRAFTS; Surgeon: Wood Eng MD; Location: Main OR; Service: Cardiothoracic CARDIAC CATHETERIZATION N/A 11/07/2021 Procedure: Coronary Angiogram; Surgeon: Minoo Grimm MD; Location: [employer]; Service: Cardiovascular HC LEFT HEART CATH N/A 11/07/2021 Procedure: Left Heart Cath; Surgeon: Minoo Grimm MD; Location: [employer]; Service: Cardiovascular left arm leg sx right and left blood clots Bilateral 2009 in [facility] SHOULDER SURGERY Current Outpatient Medications on File Prior to Visit Medication Sig Dispense Refill aspirin 81 MG EC tablet Take 1 (one) tablet (81 mg total) by mouth daily . 30 tablet 3 doxycycline hyclate (VIBRA-TABS) 100 MG tablet Take 1 (one) tablet (100 mg total) by mouth 2 (two) times a day . 14 tablet 0 gabapentin (NEURONTIN) 800 MG tablet Take 1 (one) tablet (800 mg total) by mouth 3 (three) times a day . hydrOXYzine (ATARAX) 25 MG tablet Take 1 (one) tablet (25 mg total) by mouth 3 (three) times a day as needed . lisinopriL (PRINIVIL,ZESTRIL) 30 MG tablet Take 1 (one) tablet (30 mg total) by mouth daily . predniSONE (DELTASONE) 20 MG tablet Take 1 (one) tablet (20 mg total) by mouth daily for 10 days . 10 tablet 0 tamsulosin (FLOMAX) 0.4 mg capsule Take 1 (one) capsule (0.4 mg total) by mouth daily . traMADoL (ULTRAM) 50 mg tablet Take 1 (one) tablet (50 mg total) by mouth every 8 (eight) hours as needed . No current facility-administered medications on file prior to visit. Allergies Allergen Reactions Atorvastatin Other (See Comments) ACHE ALL OVER. Family History Problem Relation Age of Onset Heart disease Father Heart attack Father Heart attack Maternal Uncle Heart disease Maternal Uncle Social History Socioeconomic History Marital status: Single Tobacco Use Smoking status: Former Packs/day: 0.25 Years: 45.00 Pack years: 11.25 Types: Cigarettes Quit date: 11/20/2021 Years since quittin.5 Smokeless tobacco: Never Tobacco comments: 6 CIGARETTES DAILY Vaping Use Vaping Use: Never used Substance and Sexual Activity Alcohol use: Not Currently Comment: PT STATES HE HAS BEEN DRINKING DAILY FOR THE PAST WEEK Drug use: Not Currently Types: Cocaine Comment: PT STATES HE HAS BEEN SMOKING CRACK FOR A WEEK Sexual activity: Not Currently control/protection: None Review of Systems Constitutional: Negative. HENT: Negative. Eyes: Negative. Cardiovascular: Positive for chest pain. Respiratory: Positive for cough. Endocrine: Negative. Skin: Negative. Musculoskeletal: Positive for back pain and muscle cramps. Gastrointestinal: Negative. Genitourinary: Negative. Neurological: Negative. Psychiatric/Behavioral: Positive for depression. The patient is nervous/anxious. Allergic/Immunologic: Negative. BP 120/82 (BP Location: Left arm, Patient Position: Sitting) Pulse 77 Ht 6' Wt 105.2 kg (232 lb) BMI 31.46 kg/m Physical Exam HENT: Head: Normocephalic. Nose: Nose normal. Cardiovascular: Rate and Rhythm: Normal rate. Pulses: Normal pulses. Pulmonary: Effort: Pulmonary effort is normal. Musculoskeletal: General: Normal range of motion. Cervical back: Normal range of motion. Neurological: General: No focal deficit present. Mental Status: He is alert. Psychiatric: Mood and Affect: Mood normal. WBC Date Value Ref Range Status 06/21/2022 5.46 4.50 - 11.00 K/mcL Final 02/21/2018 12.4 (H) 3.6 - 10.4 K/mcL Final Hemoglobin Date Value Ref Range Status 06/21/2022 15.3 13.5 - 17.5 g/dL Final 02/21/2018 16.9 12.9 - 16.9 g/dL Final Hemoglobin, Blood Gas Date Value Ref Range Status 11/21/2021 12.7 (L) 13.5 - 17.5 g/dL Final Hematocrit, Calculated Date Value Ref Range Status 11/21/2021 39.1 (L) 41.0 - 53.0 % Final Hematocrit Date Value Ref Range Status 06/21/2022 45.7 41.0 - 53.0 % Final MCV Date Value Ref Range Status 06/21/2022 88.4 80.0 - 100.0 fL Final Platelets Date Value Ref Range Status 06/21/2022 225 150 - 400 K/mcL Final 02/21/2018 214 139 - 354 K/mcL Final Hemoglobin A1C Date Value Ref Range Status 11/07/2021 5.9 (H) 4.0 - 5.6 % Final Glucose Date Value Ref Range Status 06/21/2022 118 (H) 65 - 99 mg/dL Final 11/20/2021 135 (H) 65 - 99 mg/dL Final Calcium Date Value Ref Range Status 02/19/2022 9.4 8.4 - 10.2 mg/dL Final Sodium Date Value Ref Range Status 06/21/2022 139 135 - 145 mmol/L Final 11/20/2021 141 135 - 145 mmol/L Final Potassium Date Value Ref Range Status 06/21/2022 4.8 3.5 - 5.1 mmol/L Final Comment: moderate hemolysis, result may be falsely increased. 11/20/2021 4.4 3.5 - 5.1 mmol/L Final Chloride Date Value Ref Range Status 06/21/2022 109 (H) 98 - 108 mmol/L Final 11/20/2021 110 (H) 98 - 108 mmol/L Final BUN Date Value Ref Range Status 06/21/2022 9 8 - 25 mg/dL Final 02/21/2018 11 8 - 25 mg/dL Final Creatinine Date Value Ref Range Status 06/21/2022 1.09 0.80 - 1.30 mg/dL Final 02/21/2018 1.10 0.80 - 1.30 mg/dL Final INR Date Value Ref Range Status 12/31/2021 1.0 0.8 - 1.1 Final 08/04/2017 0.98 Final Comment: The [employer] recommended therapeutic range for Warfarin (Coumadin) therapy goals: PROPHYLAXIS/TREATMENT of: INR Venous Thrombosis, Pulmonary Embolism 2.0-3.0 Prevention of VTE (Orthopedic Surgery) 2.0-3.0 Atrial Fibrillation 2.0-3.0 Myocardial Infarction 2.0-3.0 Mechanical Prosthetic Heart Valves (Aortic position) 2.0-3.0 Mechanical Prosthetic Heart Valves (Mitral Position) 2.5-3.5 [employer] evidence-based clinical practice guidelines. CHEST. 2012 (9th ed) APTT Date Value Ref Range Status 11/26/2021 31 23 - 34 seconds Final Albumin Date Value Ref Range Status 02/19/2022 3.6 3.2 - 5.2 g/dL Final ] Problem List Items Addressed This Visit None documented in this [id number] Hospital Discharge instructions Follow Up Care 06/10/2022 12:01:35 With:Paulette CARBALLO CNP Address: [address] [place] [id number]- When:Within 6 Month(s) [facility] 01-19-2023 Hospital Discharge instructions Follow Up Care 06/04/2022 09:37:31 With:Paulette CARBALLO CNP Address: [address] [place] [id number]- When:Within 1 Month(s) [facility] 12-19-2022 NotePROCEDURE: CT CHEST W WO CONTRAST CLINICAL INFORMATION: Musculoskeletal chest pain, Exertional dyspnea, Essential hypertension, Pure hypercholesterolemia . TECHNIQUE: 5 mm images of the stress at [address] scans of the chest were done without and following Isovue-370 IV contrast. Sagittal and coronal reconstructions on the pre and postcontrast images are also submitted All CT scans at this facility use dose modulation, iterative reconstruction, and/or weight-based dosing when appropriate to reduce radiation dose to as low as reasonably achievable. COMPARISON: No prior study. FINDINGS: Heart and mediastinum Thyroid gland appears normal. There is no mediastinal or hilar adenopathy. Prior CABG. No pericardial effusion. Heart size is normal. Lungs. There are no infiltrates. There are no lung masses. There are no pleural effusions. CHEST WALL: There is no axillary lymphadenopathy. Midline sternotomy with persistent mild diastases of the sternum, prominent diastases at the xiphoid. Degenerative changes throughout the thoracic spine. 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 Upper abdomen Probable hepatic steatosis. 2 cm hepatic cyst right lobe of the liver. Adrenals are unremarkable. IMPRESSION: No acute cardiopulmonary process identified. Chronic changes as detailed above. This report has been created using voice recognition software. It may contain minor errors which are inherent in voice recognition technology. Final report electronically signed by Dr. Rolando Cuenca on 05/04/2022 4:06 PM Interpreted by: Rolando Cuenca MD Signed by: Rolando Cuenca MD 05/04/22 [facility] NotePROCEDURE: CT CHEST W WO CONTRAST CLINICAL INFORMATION: Musculoskeletal chest pain, Exertional dyspnea, Essential hypertension, Pure hypercholesterolemia . TECHNIQUE: 5 mm images of the stress at [address] scans of the chest were done without and following Isovue-370 IV contrast. Sagittal and coronal reconstructions on the pre and postcontrast images are also submitted All CT scans at this facility use dose modulation, iterative reconstruction, and/or weight-based dosing when appropriate to reduce radiation dose to as low as reasonably achievable. COMPARISON: No prior study. FINDINGS: Heart and mediastinum Thyroid gland appears normal. There is no mediastinal or hilar adenopathy. Prior CABG. No pericardial effusion. Heart size is normal. Lungs. There are no infiltrates. There are no lung masses. There are no pleural effusions. CHEST WALL: There is no axillary lymphadenopathy. Midline sternotomy with persistent mild diastases of the sternum, prominent diastases at the xiphoid. Degenerative changes throughout the thoracic spine. 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 Upper abdomen Probable hepatic steatosis. 2 cm hepatic cyst right lobe of the liver. Adrenals are unremarkable. [id number] NotePROCEDURE: XR RIBS LEFT INCLUDE CHEST (MIN 3 VIEWS) CLINICAL INFORMATION: cough congestion recent open heart with rib fractures . TECHNIQUE: Supine AP chest and 4 projections of the left ribs also supine COMPARISON: No prior study. FINDINGS: Heart, mediastinal and hilar contours are within normal limits. No infiltrates or effusions. Plate atelectasis versus scar left midlung. Vessels are not congested.No pneumothorax although not entirely excluded on a supine image. Surgical clip at the medial left base. No rib fractures identified. Midline sternotomy from prior CABG. IMPRESSION: No acute cardiopulmonary disease. No rib fracture identified. This report has been created using voice recognition software. It may contain minor errors which are inherent in voice recognition technology. Final report electronically signed by Dr. Rolando Cuenca on 04/06/2022 10:33 AM Interpreted by: Rolando Cuenca MD Signed by: Rolando Cuenca MD 04/06/22 Final resultSH[facility]09-14-2022 History of Present illness Narrative* Alexandria Rizvi, PT - 01/28/2022 10:18 AM EDT Cardiac Rehab Session. Ref to daily session report in Procedures. Supervising Physician: Dr. Rodriguez documented in this [id number] Telephone encounter Note* Telephone Encounter - Tia William MA - 01/20/2022 3:14 PM EDT Upcoming 04/30/22 w/ Dr. Segovia [id number] Miscellaneous Notes* Telephone Encounter - Tia William MA - 01/20/2022 3:14 PM EDT Upcoming 04/30/22 w/ Dr. Segovia documented in this [id number] Hospital Discharge instructions Follow Up Care 01/15/2022 12:14:13 With:Paulette CARBALLO CNP Address: [address] [place] [id number]- When:Within 6 Month(s) [facility] 08-24-2022 History of Present illness Narrative* Mariela Sutherland DO - 01/07/2022 4:10 PM EDT Just called my office supposedly asking what time we are meeting for me to do surgery on hm in [place]. See my consult Confusion vs. acute intox documented in this [id number] Note* Addendum Note - Caridad Smith CNP - 12/29/2021 10:40 AM EDTAddended by: CARIDAD SMITH on: 12/29/2021 10:40 AM Modules accepted: Orders [id number] Note* Addendum Note - Caridad Smith CNP - 12/29/2021 10:40 AM EDTAddended by: CARIDAD SMITH on: 12/29/2021 10:40 AM Modules accepted: Orders [id number] Miscellaneous Notes* Addendum Note - Caridad Smith CNP - 12/29/2021 10:40 AM EDTAddended by: CARIDAD SMITH on: 12/29/2021 10:40 AM Modules accepted: Orders * Addendum Note - Caridad Kramer MA - 12/29/2021 10:39 AM EDTAddended by: CARIDAD KRAMER on: 12/29/2021 10:39 AM Modules accepted: Orders documented in this [id number] Note* Addendum Note - Caridad Kramer MA - 12/29/2021 10:39 AM EDTAddended by: CAIRDAD KRAMER on: 12/29/2021 10:39 AM Modules accepted: Orders [id number] Note* Addendum Note - Caridad Kramer MA - 12/29/2021 10:39 AM EDTAddended by: CARIDAD KRAMER on: 12/29/2021 10:39 AM Modules accepted: Orders [id number] Note* Addendum Note - Caridad Kramer MA - 12/29/2021 10:39 AM EDTAddended by: CARIDAD KRAMER on: 12/29/2021 10:39 AM Modules accepted: Orders [id number] Miscellaneous Notes* Addendum Note - Caridad Kramer MA - 12/29/2021 10:39 AM EDTAddended by: CARIDAD KRAMER on: 12/29/2021 10:39 AM Modules accepted: Orders documented in this [id number] Instructions* Patient Instructions* Josef Steward RN - 12/29/2021 8:02 AM EDT PROVIDER: DR JEREMY SEGOVIA NURSE: IZABELLA FLORENCE DOCTOR OF OPTOMETRY # [phone] FAX # [phone] CALL OFFICE FOR QUESTIONS CONCERNS OR REFILLS documented in this [id number] Instructions* Patient Instructions* Josef Steward RN - 12/29/2021 8:02 AM EDT PROVIDER: DR JEREMY SEGOVIA NURSE: IZABELLA FLORENCE DOCTOR OF OPTOMETRY # [phone] FAX # [phone] CALL OFFICE FOR QUESTIONS CONCERNS OR REFILLS documented in this [id number] Instructions* Patient Instructions* Josef Steward RN - 12/29/2021 8:02 AM EDT PROVIDER: DR JEREMY SEGOVIA NURSE: IZABELLA FLORENCE DOCTOR OF OPTOMETRY # [phone] FAX # [phone] CALL OFFICE FOR QUESTIONS CONCERNS OR REFILLS documented in this [id number] History of Present illness Narrative* Caridad Smith CNP - 12/29/2021 8:00 AM EDT General Cardiology Clinic Follow-up Heart & Vascular [facility] 12/29/2021 Caridad Smith CNP [address] [place] [address] Medical [facility] [id number] Patient: Maryse Mak Date of : 1955 (66 y.o.) PCP: PAULETTE CARBALLO CNP Assessment & Plan CAD s/p CABG 11/20/21 with DAVIS to LAD and INGRID to RCA -Last saw CTS 12/25/21-he admitted to not being compliant with weight and driving restrictions as well as with wearing his dawit hose and heart hugger -Patient had a lot not been compliant with taking his medications at that time due to GI upset-states today he has been complaint and takes his meds at night to prevent side effects -Denies chest pain in the office today. Continues to complain of sternal soreness and occasional popping with certain movements. Incision healed no s/s infection. Reminded him the importance of following weight restrictions as placed on him by CTS -Admits that he continues not to use heart hugger but uses a pillow when he coughs or sneezes. Coughing up occasional clear phlegm -His only complaint is ongoing GAINES, CXR from 12/25/21 shows residual effusion on the L and basal atelectasis, encouraged IS but patient refuses. He is to start Cardiac rehab Wednesday and is looking forward to building up his stamina -Compliant with his heart medications. Continue on Metoprolol Succinate 12.5 mg daily, aspirin 81 mg daily and Atorvastatin 20 mg daily -Denies needs for refills Hyperlipidemia -Continue statin therapy, update lipid panel prior to next follow up appt with Dr. Segovia 04/30/22 Essential HTN -BP in the office today is 131/86 fairly acceptable, goal <120/80 -Discussed heart healthy diet with patient Tobacco/substance abuse -Patient quit smoking prior to his CABG and remains tobacco free Atrial fibrillation -Short lived while in the hospital resolved with Amiodarone -EKG from 12/25/21 shows patient remains in NSR-Amiodarone was discontinued by CTS at that time -HR 66 today in the office, heart rate regular on exam Volume overload during hospitalization -Now resolved, no s/s of volume overload on exam. Weight noted to be 221 lb, up 4 lbs from last week. No LE edema. O2 sat 98% on room air -CTS discontinued patient's Lasix for patient was not taking it because it kept him up all night urinating -ECHO 10/2021 EF 70% normal diastolic function Follow-up: Dr. Segovia 04/30/22 Chief Complaint: Follow-up (S/P CABG per Babita Valdez) Subjective History of Present Illness: Maryse Mak is a 66 y.o. male with a PMH of alcohol abuse, arthritis chronic, chronic back pain, clotting disorder with DVT, cocaine abuse, coronary artery disease, hyperlipidemia, hypertension, tobacco dependence who was last seen by Dr. Segovia 10/30/2021. At that time patient had been complaining of intermittent chest pain and shortness of breath with exertion. He underwent a cardiac cath by which revealed 80% stenosis of his RCA, 70% stenosis of obtuse marginal and 70% stenosis of the LAD. He was referred to Dr. Eng who performed CABG x2 with DAVIS to LAD and INGRID to distal RCA on 11/20/21. He has prolonged hospitalization due to hospital acquired pneumonia, hemothorax s/p [address] st tube insertion and removal, PAF managed with Amiodarone therapy, and hypervolemia. He was discharged to home on 12/09/21. He is being seen in the office today for follow up. Today in the office Maryse reports feeling fairly well since his surgery. He denies any chest pain although complains ofchest soreness on palpation and states with certain movements he occasionally has popping in his sternal area. He reported these complaints to CTS on 12/25/2021, chest x-ray was updated with stable sternal findings. It did show small residual L effusion and atelectasis, he has not been doing the IS as ordered. He was taken off Lasix due to non-compliance for frequent urination. EKG from 12/25/21 also showed normal sinus rhythm, his heart rate remains regular on exam today. In reviewing CTS's notefrom last week there appears that patient was having a compliance issue with his heart hugger, IS, T ED hose, weight restriction, driving restriction as well as compliance with his medications. Patient reports to me today that he has been trying to be more cautious of his weight restriction and has been taking his medications as prescribed. His biggest complaint today is ongoing GAINES. He reports that the more activity he does the better it gets so he is looking forward to cardiac rehab which begins Wednesday. He continues to be tobacco free. Cardiac imaging: ECHO 11/07/21 1. Left ventricular chamber dimension is normal. 2. Left ventricular systolic function is normal with an ejection fraction by Biplane Method of Discs of 70 %. 3. The left ventricular diastolic function is normal. 4. Right ventricular chamber dimension is borderline enlarged. 5. There is mild aortic valve sclerosis. 6. The proximal ascending aorta is dilated measuring 4.0 cm with an index of 1.8 cm/m2. Objective Tobacco Use Smoking Status Former Packs/day: 1.00 Years: 45.00 Pack years: 45.00 Types: Cigarettes Quit date: 11/20/2021 Years since quittin.1 Smokeless Tobacco Never Quit date: The patient set a quit date of November 2021. ECG 12 Lead Final Result by David Edouard MA (12/25/2021 1053) Echocardiogram complete w contrast Final Result by Lee Taylor MD (11/07/2021 1444) Stress test only, exercise Final Result by Eunice Rodriguez MD (05/30/2018 1056) Cardiac Catheterization Final Result by Minoo Grimm MD (11/07/2021 1050) HOME Medications: Patient's Medications New Prescriptions No medications on file Previous Medications ASPIRIN 81 MG EC TABLET Take 1 (one) tablet (81 mg total) by mouth daily . ATORVASTATIN (LIPITOR) 20 MG TABLET Take 0.5 (one-half) tablet (10 mg total) by mouth nightly . GABAPENTIN (NEURONTIN) 300 MG CAPSULE Take 2 (two) capsules (600 mg total) by mouth 3 (three) timesa day (Days supply per fill: 30) . METOPROLOL SUCCINATE (TOPROL-XL) 25 MG 24 HR TABLET Take 0.5 (one-half) tablet (12.5 mg total) by mouth daily Start: 12/10/21. Modified Medications No medications on file Discontinued Medications No medications on file Physical Examination: BP 131/86 (BP Location: Right arm) Pulse 66 Ht 6' Wt 100.2 kg (221 lb) SpO2 98% BMI 29.97kg/m Constitutional: Appears well-developed and well-nourished. No distress. Head: Normocephalic and atraumatic. Eyes: Conjunctivae and EOM are normal. No scleral icterus. Neck: Normal range of motion. Cardiovascular: Normal rate and regular rhythm. Exam reveals no gallop and no friction rub. No murmur heard. No peripheral edema Pulmonary/Chest: Effort normal and breath sounds normal. No respiratory distress. No wheezes. No rales. Room air Abdominal: Soft. Bowel sounds are normal. There is no abdominal tenderness. Musculoskeletal: Normal range of motion. Neurological: AOx3, moving all ext. Skin: Skin is warm and dry. No rash noted. Mid-line chest incision well healed no s/s infection tender to palpation Psychiatric: Normal mood and affect. Lab Results Component Value Date CHOL 167 06/18/2019 LDLCALC 75 06/18/2019 TRIG 207 (H) 06/18/2019 HDL 51 06/18/2019 Serum creatinine: 1.14 mg/dL 12/25/21 0955 Estimated creatinine clearance: 71.9 mL/min documented in this [id number] History of Present illness Narrative* Caridad Smith CNP - 12/29/2021 8:00 AM EDT General Cardiology Clinic Follow-up Heart & Vascular [facility] 12/29/2021 Caridad Smith CNP [address] [facility] Medical Office [facility] [address] Patient: Maryse Mak Date of : 1955 (66 y.o.) PCP: PUALETTE CARBALLO CNP Assessment & Plan CAD s/p CABG 11/20/21 with DAVIS to LAD and INGRID to RCA -Last saw CTS 12/25/21-he admitted to not being compliant with weight and driving restrictions as well as with wearing his dawit hose and heart hugger -Patient had a lot not been compliant with taking his medications at that time due to GI upset-states today he has been complaint and takes his meds at night to prevent side effects -Denies chest pain in the office today. Continues to complain of sternal soreness and occasional popping with certain movements. Incision healed no s/s infection. Reminded him the importance of following weight restrictions as placed on him by CTS -Admits that he continues not to use heart hugger but uses a pillow when he coughs or sneezes. Coughing up occasional clear phlegm -His only complaint is ongoing GAINES, CXR from 12/25/21 shows residual effusion on the L and basal atelectasis, encouraged IS but patient refuses. He is to start Cardiac rehab Wednesday and is looking forward to building up his stamina -Compliant with his heart medications. Continue on Metoprolol Succinate 12.5 mg daily, aspirin 81 mg daily and Atorvastatin 20 mg daily -Denies needs for refills Hyperlipidemia -Continue statin therapy, update lipid panel prior to next follow up appt with Dr. Segovia 04/30/22 Essential HTN -BP in the office today is 131/86 fairly acceptable, goal <120/80 -Discussed heart healthy diet with patient Tobacco/substance abuse -Patient quit smoking prior to his CABG and remains tobacco free Atrial fibrillation -Short lived while in the hospital resolved with Amiodarone -EKG from 12/25/21 shows patient remains in NSR-Amiodarone was discontinued by CTS at that time -HR 66 today in the office, heart rate regular on exam Volume overload during hospitalization -Now resolved, no s/s of volume overload on exam. Weight noted to be 221 lb, up 4 lbs from last week. No LE edema. O2 sat 98% on room air -CTS discontinued patient's Lasix for patient was not taking it because it kept him up all night urinating -ECHO 10/2021 EF 70% normal diastolic function Follow-up: Dr. Segovia 04/30/22 Chief Complaint: Follow-up (S/P CABG per Babita Valdez) Subjective History of Present Illness: Maryse Mak is a 66 y.o. male with a PMH of alcohol abuse, arthritis chronic, chronic back pain, clotting disorder with DVT, cocaine abuse, coronary artery disease, hyperlipidemia, hypertension, tobacco dependence who was last seen by Dr. Segovia 10/30/2021. At that time patient had been complaining of intermittent chest pain and shortness of breath with exertion. He underwent a cardiac cath by which revealed 80% stenosis of his RCA, 70% stenosis of obtuse marginal and 70% stenosis of the LAD. He was referred to Dr. Eng who performed CABG x2 with DAVIS to LAD and INGRID to distal RCA on 11/20/21. He has prolonged hospitalization due to hospital acquired pneumonia, hemothorax s/p elliott st tube insertion and removal, PAF managed with Amiodarone therapy, and hypervolemia. He was discharged to home on 12/09/21. He is being seen in the office today for follow up. Today in the office Maryse reports feeling fairly well since his surgery. He denies any chest pain although complains ofchest soreness on palpation and states with certain movements he occasionally has popping in his sternal area. He reported these complaints to CTS on 12/25/2021, chest x-ray was updated with stable sternal findings. It did show small residual L effusion and atelectasis, he has not been doing the IS as ordered. He was taken off Lasix due to non-compliance for frequent urination. EKG from 12/25/21 also showed normal sinus rhythm, his heart rate remains regular on exam today. In reviewing CTS's notefrom last week there appears that patient was having a compliance issue with his heart hugger, IS, T ED hose, weight restriction, driving restriction as well as compliance with his medications. Patient reports to me today that he has been trying to be more cautious of his weight restriction and has been taking his medications as prescribed. His biggest complaint today is ongoing GAINES. He reports that the more activity he does the better it gets so he is looking forward to cardiac rehab which begins Wednesday. He continues to be tobacco free. Cardiac imaging: ECHO 11/07/21 1. Left ventricular chamber dimension is normal. 2. Left ventricular systolic function is normal with an ejection fraction by Biplane Method of Discs of 70 %. 3. The left ventricular diastolic function is normal. 4. Right ventricular chamber dimension is borderline enlarged. 5. There is mild aortic valve sclerosis. 6. The proximal ascending aorta is dilated measuring 4.0 cm with an index of 1.8 cm/m2. Objective Tobacco Use Smoking Status Former Packs/day: 1.00 Years: 45.00 Pack years: 45.00 Types: Cigarettes Quit date: 11/20/2021 Years since quittin.1 Smokeless Tobacco Never Quit date: The patient set a quit date of November 2021. ECG 12 Lead Final Result by David Edouard MA (12/25/2021 1053) Echocardiogram complete w contrast Final Result by Lee Taylor MD (11/07/2021 1444) Stress test only, exercise Final Result by Eunice Rodriguez MD (05/30/2018 1056) Cardiac Catheterization Final Result by Minoo Grimm MD (11/07/2021 1050) HOME Medications: Patient's Medications New Prescriptions No medications on file Previous Medications ASPIRIN 81 MG EC TABLET Take 1 (one) tablet (81 mg total) by mouth daily . ATORVASTATIN (LIPITOR) 20 MG TABLET Take 0.5 (one-half) tablet (10 mg total) by mouth nightly . GABAPENTIN (NEURONTIN) 300 MG CAPSULE Take 2 (two) capsules (600 mg total) by mouth 3 (three) timesa day (Days supply per fill: 30) . METOPROLOL SUCCINATE (TOPROL-XL) 25 MG 24 HR TABLET Take 0.5 (one-half) tablet (12.5 mg total) by mouth daily Start: 12/10/21. Modified Medications No medications on file Discontinued Medications No medications on file Physical Examination: BP 131/86 (BP Location: Right arm) Pulse 66 Ht 6' Wt 100.2 kg (221 lb) SpO2 98% BMI 29.97kg/m Constitutional: Appears well-developed and well-nourished. No distress. Head: Normocephalic and atraumatic. Eyes: Conjunctivae and EOM are normal. No scleral icterus. Neck: Normal range of motion. Cardiovascular: Normal rate and regular rhythm. Exam reveals no gallop and no friction rub. No murmur heard. No peripheral edema Pulmonary/Chest: Effort normal and breath sounds normal. No respiratory distress. No wheezes. No rales. Room air Abdominal: Soft. Bowel sounds are normal. There is no abdominal tenderness. Musculoskeletal: Normal range of motion. Neurological: AOx3, moving all ext. Skin: Skin is warm and dry. No rash noted. Mid-line chest incision well healed no s/s infection tender to palpation Psychiatric: Normal mood and affect. Lab Results Component Value Date CHOL 167 06/18/2019 LDLCALC 75 06/18/2019 TRIG 207 (H) 06/18/2019 HDL 51 06/18/2019 Serum creatinine: 1.14 mg/dL 12/25/21 0955 Estimated creatinine clearance: 71.9 mL/min documented in this [id number] History of Present illness Narrative* Caridad Smith CNP - 12/29/2021 8:00 AM EDT General Cardiology Clinic Follow-up Heart & Vascular [facility] 12/29/2021 Caridad Smith CNP [address] [place] [address] Medical Office [facility] [phone] Patient: Maryse Mak Date of : 1955 (66 y.o.) PCP: PAULETTE CARBALLO CNP Assessment & Plan CAD s/p CABG 11/20/21 with DAVIS to LAD and INGRID to RCA -Last saw CTS 12/25/21-he admitted to not being compliant with weight and driving restrictions as well as with wearing his dawit hose and heart hugger -Patient had a lot not been compliant with taking his medications at that time due to GI upset-states today he has been complaint and takes his meds at night to prevent side effects -Denies chest pain in the office today. Continues to complain of sternal soreness and occasional popping with certain movements. Incision healed no s/s infection. Reminded him the importance of following weight restrictions as placed on him by CTS -Admits that he continues not to use heart hugger but uses a pillow when he coughs or sneezes. Coughing up occasional clear phlegm -His only complaint is ongoing GAINES, CXR from 12/25/21 shows residual effusion on the L and basal atelectasis, encouraged IS but patient refuses. He is to start Cardiac rehab Wednesday and is looking forward to building up his stamina -Compliant with his heart medications. Continue on Metoprolol Succinate 12.5 mg daily, aspirin 81 mg daily and Atorvastatin 20 mg daily -Denies needs for refills Hyperlipidemia -Continue statin therapy, update lipid panel prior to next follow up appt with Dr. Segovia 04/30/22 Essential HTN -BP in the office today is 131/86 fairly acceptable, goal <120/80 -Discussed heart healthy diet with patient Tobacco/substance abuse -Patient quit smoking prior to his CABG and remains tobacco free Atrial fibrillation -Short lived while in the hospital resolved with Amiodarone -EKG from 12/25/21 shows patient remains in NSR-Amiodarone was discontinued by CTS at that time -HR 66 today in the office, heart rate regular on exam Volume overload during hospitalization -Now resolved, no s/s of volume overload on exam. Weight noted to be 221 lb, up 4 lbs from last week. No LE edema. O2 sat 98% on room air -CTS discontinued patient's Lasix for patient was not taking it because it kept him up all night urinating -ECHO 10/2021 EF 70% normal diastolic function Follow-up: Dr. Segovia 04/30/22 Chief Complaint: Follow-up (S/P CABG per Babita Valdez) Subjective History of Present Illness: Maryse Mak is a 66 y.o. male with a PMH of alcohol abuse, arthritis chronic, chronic back pain, clotting disorder with DVT, cocaine abuse, coronary artery disease, hyperlipidemia, hypertension, tobacco dependence who was last seen by Dr. Segovia 10/30/2021. At that time patient had been complaining of intermittent chest pain and shortness of breath with exertion. He underwent a cardiac cath by which revealed 80% stenosis of his RCA, 70% stenosis of obtuse marginal and 70% stenosis of the LAD. He was referred to Dr. Eng who performed CABG x2 with DAVIS to LAD and INGRID to distal RCA on 11/20/21. He has prolonged hospitalization due to hospital acquired pneumonia, hemothorax s/p elli[address] st tube insertion and removal, PAF managed with Amiodarone therapy, and hypervolemia. He was discharged to home on 12/09/21. He is being seen in the office today for follow up. Today in the office Maryse reports feeling fairly well since his surgery. He denies any chest pain although complains ofchest soreness on palpation and states with certain movements he occasionally has popping in his sternal area. He reported these complaints to CTS on 12/25/2021, chest x-ray was updated with stable sternal findings. It did show small residual L effusion and atelectasis, he has not been doing the IS as ordered. He was taken off Lasix due to non-compliance for frequent urination. EKG from 12/25/21 also showed normal sinus rhythm, his heart rate remains regular on exam today. In reviewing CTS's notefrom last week there appears that patient was having a compliance issue with his heart hugger, IS, T ED hose, weight restriction, driving restriction as well as compliance with his medications. Patient reports to me today that he has been trying to be more cautious of his weight restriction and has been taking his medications as prescribed. His biggest complaint today is ongoing GAINES. He reports that the more activity he does the better it gets so he is looking forward to cardiac rehab which begins Wednesday. He continues to be tobacco free. Cardiac imaging: ECHO 11/07/21 1. Left ventricular chamber dimension is normal. 2. Left ventricular systolic function is normal with an ejection fraction by Biplane Method of Discs of 70 %. 3. The left ventricular diastolic function is normal. 4. Right ventricular chamber dimension is borderline enlarged. 5. There is mild aortic valve sclerosis. 6. The proximal ascending aorta is dilated measuring 4.0 cm with an index of 1.8 cm/m2. Objective Tobacco Use Smoking Status Former Packs/day: 1.00 Years: 45.00 Pack years: 45.00 Types: Cigarettes Quit date: 11/20/2021 Years since quittin.1 Smokeless Tobacco Never Quit date: The patient set a quit date of November 2021. ECG 12 Lead Final Result by David Edouard MA (12/25/2021 1053) Echocardiogram complete w contrast Final Result by Lee Taylor MD (11/07/2021 1444) Stress test only, exercise Final Result by Eunice Rodriguez MD (05/30/2018 1056) Cardiac Catheterization Final Result by Minoo Grimm MD (11/07/2021 1050) HOME Medications: Patient's Medications New Prescriptions No medications on file Previous Medications ASPIRIN 81 MG EC TABLET Take 1 (one) tablet (81 mg total) by mouth daily . ATORVASTATIN (LIPITOR) 20 MG TABLET Take 0.5 (one-half) tablet (10 mg total) by mouth nightly . GABAPENTIN (NEURONTIN) 300 MG CAPSULE Take 2 (two) capsules (600 mg total) by mouth 3 (three) timesa day (Days supply per fill: 30) . METOPROLOL SUCCINATE (TOPROL-XL) 25 MG 24 HR TABLET Take 0.5 (one-half) tablet (12.5 mg total) by mouth daily Start: 12/10/21. Modified Medications No medications on file Discontinued Medications No medications on file Physical Examination: BP 131/86 (BP Location: Right arm) Pulse 66 Ht 6' Wt 100.2 kg (221 lb) SpO2 98% BMI 29.97kg/m Constitutional: Appears well-developed and well-nourished. No distress. Head: Normocephalic and atraumatic. Eyes: Conjunctivae and EOM are normal. No scleral icterus. Neck: Normal range of motion. Cardiovascular: Normal rate and regular rhythm. Exam reveals no gallop and no friction rub. No murmur heard. No peripheral edema Pulmonary/Chest: Effort normal and breath sounds normal. No respiratory distress. No wheezes. No rales. Room air Abdominal: Soft. Bowel sounds are normal. There is no abdominal tenderness. Musculoskeletal: Normal range of motion. Neurological: AOx3, moving all ext. Skin: Skin is warm and dry. No rash noted. Mid-line chest incision well healed no s/s infection tender to palpation Psychiatric: Normal mood and affect. Lab Results Component Value Date CHOL 167 06/18/2019 LDLCALC 75 06/18/2019 TRIG 207 (H) 06/18/2019 HDL 51 06/18/2019 Serum creatinine: 1.14 mg/dL 12/25/21 0955 Estimated creatinine clearance: 71.9 mL/min documented in this [id number] Evaluation + Plan note* Assessment & Plan Note - Julio C Zheng PA-C - 12/25/2021 11:54 AM EDTAssociated Problem(s): S/P CABG x 2 Please finish antibiotics Please continue taking medications as prescribed. You may drive. Continue to only lift a maximum of 10 pounds for the next 4 weeks, then you may lift up to 20 lbs for 5 weeks, then no restrictions. Please do cardiac rehab. You no longer need the support hose. Continue to wear the heart hugger for another 4 weeks. Please follow-up with your primary care provider and your wort extractor. If you have any questions regarding your heart surgery in the future, please feel free to call. [id number] History of Present illness Narrative* Julio C Zheng PA-C - 12/25/2021 11:54 AM EDT Cardiothoracic Surgery Clinic Follow-up Heart & Vascular [facility] 12/25/2021 Julio C Zheng PA-C [address] [place] [address] Medical Office [facility] [id number] Patient: Maryse Mak Date of : 1955 (66 y.o.) PCP: PAULETTE CARBALLO CNP Assessment & Plan S/P CABG x 2 Please finish antibiotics Please continue taking medications as prescribed. You may drive. Continue to only lift a maximum of 10 pounds for the next 4 weeks, then you may lift up to 20 lbs for 5 weeks, then no restrictions. Please do cardiac rehab. You no longer need the support hose. Continue to wear the heart hugger for another 4 weeks. Please follow-up with your primary care provider and your wort extractor. If you have any questions regarding your heart surgery in the future, please feel free to call. Follow-up: No follow-ups on file. Chief Complaint: Follow-up (S/P CABG x [address] Eng on 11/20/21/Lower back pain, hurts when coughing. ) Subjective History of Present Illness: Maryse Mak is a 66 y.o. male Maryse Mak is a 66 y.o. male status post two-vessel coronary artery bypass grafting using bilateral internal mammary arteries by Dr. Wood Eng on 11/20/21. Postoperatively, he had a 19-day stay in the CVICU which was briefly remarkable for the following: Acute leukocytosis, secondary to reactive processes and hypoventilation, upward trend; Infectious Disease consulted, Dr. Etienne Hammond; banda cultures redrawn, negative to date Acute surgical blood loss anemia, requiring transfusion of packed red blood cells on 11/26/2021, stable and upward trending Acute postoperative positive fluid balance with weight gain managed with diuretic therapy, preoperative weight: 104 kg, today's weight: 98.5 kg Acute pulmonary insufficiency requiring oxygen supplementation to maintain oxygen saturation greater than 90%; successfully weaned; ongoing pulmonary toileting; cough managed with Symbicort, Mucinex and Tessalon; pulmonology consulted prior for optimization. Acute postoperative atrial fibrillation with rapid ventricular response managed with amiodarone antiarrhythmic therapy; resolved Acute left hemothorax requiring chest tube placement on 11/25/2021 with 2.6 L blood return; maintained; chest tube removed on 11/30/2021 Acute hospital-acquired pneumonia with positive sputum culture on 11/24/2021 for heavy H. influenzae; antibiotic therapy managed by pulmonology [id number] loculated mixed density hemothorax noted to CT scan on 12/01/21; patient underwentinsertion of left chest tube by interventional radiology. Pulmonology recommended instillation of intrapleural lytic therapy to facilitate drainage. tPA 10 mg and DNAse 5mg via chest tube; removed on12/04/2021 Acute erythematous distal aspect of sternal incision of unknown etiology, linezolid antibiotic therapy continued He is here today for his 5-week postoperative follow-up appointment and is again not wearing his heart hugger or bilateral compression stockings. He says that he either holds his chest or hugs a pillow at home when he is coughing, however his coughing has greatly improved. He does tell me that his sleep has also greatly improved this week. He has not been working on incentive spirometry, and tells me he has been lifting above his lifting restrictions of 10 pounds by carrying groceries and running errands around town. He has also been driving already despite my detailed discussions with him both in the hospital and at last week's visit regarding his strict postoperative instructions and restrictions. He also informed me that he stopped taking all of his medications after last week's visit,including antibiotic therapy. He states the reason for this is that the pills were making him nauseous in the morning when he took these. He did not call anyone from cardiac surgery to discuss this prior to stopping the medications. After further discussion about the importance of each medication th at he was on, I learned that he was taking all of his pills first thing in the morning on an empty stomach. Several of his medications were only to be taken for the 5-week postoperative period, and we were planning on stopping these today anyway. However I educated him on the importance of fully finishing his antibiotic course, as well as indefinitely continuing with the metoprolol, aspirin, and statin. Patient assured me that he would continue with these medications and will try taking the pills after breakfast rather than on an empty stomach to avoid nausea. Patient otherwise tells me he is feeling great and notices that his energy has returned. Sternal incision is well-healed and the area of erythema at the distal aspect has completely resolved. He willbe seeing Dr. Hammond in the office later this week. He does tell me that he is still feeling some popping in his sternum when he turns over in bed or twists certain ways. Chest x-ray looks unchanged, w ith the sternal wires aligned and intact except for the bottom wire which has pulled through. Upon firm palpation today in the office I am not able to appreciate any popping or clicking, however because of the bottom wire displacement and patient's complaints of popping, I informed him that I would like to keep him at a 10 pound lifting restriction for the next 4 weeks, followed by a 20 pound lifting restriction for 5 weeks following that. However he can safely resume driving, although he has already done so. Today we will be discontinuing his amiodarone, Lasix, potassium, iron, pantoprazole, and Colace. Luma remain on metoprolol, aspirin, statin, and gabapentin, and will finish out his antibiotic course. At this time he is released from cardiothoracic surgery and will no longer need follow-up in our clinic. He will continue to follow-up with cardiology and his primary care provider. Objective Tobacco Use Smoking Status Former Packs/day: 1.00 Years: 45.00 Pack years: 45.00 Types: Cigarettes Quit date: 11/20/2021 Years since quittin.0 Smokeless Tobacco Never ECG 12 Lead Final Result by David Edouard MA (12/25/2021 1053) Echocardiogram complete w contrast Final Result by Lee Taylor MD (11/07/2021 1444) Stress test only, exercise Final Result by Eunice Rodriguez MD (05/30/2018 1056) Cardiac Catheterization Final Result by Minoo Grimm MD (11/07/2021 1050) HOME Medications: Patient's Medications New Prescriptions No medications on file Previous Medications ASPIRIN 81 MG EC TABLET Take 1 (one) tablet (81 mg total) by mouth daily . ATORVASTATIN (LIPITOR) 20 MG TABLET Take 0.5 (one-half) tablet (10 mg total) by mouth nightly . GABAPENTIN (NEURONTIN) 300 MG CAPSULE Take 2 (two) capsules (600 mg total) by mouth 3 (three) timesa day (Days supply per fill: 30) . METOPROLOL SUCCINATE (TOPROL-XL) 25 MG 24 HR TABLET Take 0.5 (one-half) tablet (12.5 mg total) by mouth daily Start: 12/10/21. Modified Medications No medications on file Discontinued Medications AMIODARONE (CORDARONE) 200 MG TABLET Take 1 (one) tablet (200 mg total) by mouth 2 (two) times a day . DOCUSATE SODIUM (COLACE) 100 MG CAPSULE Take 1 (one) capsule (100 mg total) by mouth daily Start: 12/10/21. FERROUS SULFATE 325 (65 FE) MG TABLET Take 1 (one) tablet (325 mg total) by mouth 3 (three) times aday with meals . FUROSEMIDE (LASIX) 20 MG TABLET Take 1 (one) tablet (20 mg total) by mouth daily Start: 12/10/21. PANTOPRAZOLE (PROTONIX) 40 MG TABLET Take 1 (one) tablet (40 mg total) by mouth daily . POTASSIUM CHLORIDE SA (K-DUR,KLOR-CON) 20 MEQ TABLET Take 1 (one) tablet (20 mEq total) by mouth daily Start: 12/10/21. Vital Signs: BP 113/75 (BP Location: Left arm, Patient Position: Sitting, BP Cuff Size: Adult) Pulse 85 Temp98.5 F (36.9 C) Ht 6' Wt 98.4 kg (217 lb) SpO2 94% BMI 29.43 kg/m Physical Exam Constitutional: General: He is not in acute distress. Appearance: Normal appearance. He is normal weight. He is not diaphoretic. HENT: Head: Normocephalic and atraumatic. Right Ear: External ear normal. Left Ear: External ear normal. Nose: Nose normal. Mouth/Throat: Mouth: Mucous membranes are moist. Eyes: Extraocular Movements: Extraocular movements intact. Cardiovascular: Rate and Rhythm: Normal rate and regular rhythm. Pulses: Normal pulses. Heart sounds: Normal heart sounds. No murmur heard. No friction rub. No gallop. Pulmonary: Effort: Pulmonary effort is normal. No respiratory distress. Breath sounds: Normal breath sounds. No wheezing, rhonchi or rales. Abdominal: General: Abdomen is flat. There is no distension. Palpations: Abdomen is soft. Tenderness: There is no abdominal tenderness. Musculoskeletal: General: Normal range of motion. Right lower leg: No edema. Left lower leg: No edema. Skin: General: Skin is warm and dry. Capillary Refill: Capillary refill takes less than 2 seconds. Findings: No bruising, erythema, lesion or rash. Neurological: General: No focal deficit present. Mental Status: He is alert. Psychiatric: Mood and Affect: Mood normal. Behavior: Behavior normal. Photograph of chest incision not able to be uploaded. Incision well healed. Faint scar present. No erythema or edema. Labs: Lab Results Component Value Date GLUCOSE 106 (H) 12/25/2021 CALCIUM 9.4 12/25/2021 NA 144 12/25/2021 K 4.6 12/25/2021 CL 108 12/25/2021 BUN 12 12/25/2021 CREATININE 1.14 12/25/2021 documented in this [id number] Miscellaneous Notes* Assessment & Plan Note - Julio C Zheng PA-C - 12/25/2021 11:54 AM EDTAssociated Problem(s): S/P CABG x 2 Please finish antibiotics Please continue taking medications as prescribed. You may drive. Continue to only lift a maximum of 10 pounds for the next 4 weeks, then you may lift up to 20 lbs for 5 weeks, then no restrictions. Please do cardiac rehab. You no longer need the support hose. Continue to wear the heart hugger for another 4 weeks. Please follow-up with your primary care provider and your wort extractor. If you have any questions regarding your heart surgery in the future, please feel free to call. documented in this [id number] Instructions* Patient Instructions* Julio C Zheng PA-C - 12/25/2021 10:54 AM EDT Please finish antibiotics Please continue taking medications as prescribed. You may drive. Continue to only lift a maximum of 10 pounds for the next 4 weeks, then you may lift up to 20 lbs for 5 weeks, then no restrictions. Please do cardiac rehab. You no longer need the support hose. Continue to wear the heart hugger for another 4 weeks. Please follow-up with your primary care provider and your wort extractor. If you have any questions regarding your heart surgery in the future, please feel free to call. documented in this [id number] History of Present illness Narrative* Julio C Zheng PA-C - 12/19/2021 11:43 AM EDT Images from the original note were not included. Cardiothoracic Surgery Clinic Follow-up Heart & Vascular [facility] 12/19/2021 Julio C Zheng PA-C [address] [facility] Medical Office [facility] [address] Patient: Maryse Mak Date of : 1955 (66 y.o.) PCP: PAULETTE CARBALLO CNP Assessment & Plan S/P CABG x 2 1. Continue strict sternal precautions, no lifting more than 10 pounds and no driving for 5 weeks. 2. Continue to use incentive spirometer. 3. Continue strict leg elevation when not ambulating or eating meals. 4. Continue to shower daily, wash incisions with warm soap and water, pat dry. 5. Continue to increase ambulation 4 times daily as tolerated. Contact the office of Dr. Nathan Eng and Dr. Yong Noyola should you have any questions or concerns regarding your ongoing recovery from heart surgery at [phone], option #3 after 5:00 PM Follow-up: No follow-ups on file. Chief Complaint: Follow-up (S/P CABG x [address] Eng on 11/20/21) Subjective History of Present Illness: Maryse Mak is a 66 y.o. male status post two-vessel coronary artery bypass grafting using bilateralinternal mammary arteries by Dr. Wood Eng on 11/20/21. Postoperatively, he had a 19-day stay in the CVICU which was briefly remarkable for the following: Acute leukocytosis, secondary to reactive processes and hypoventilation, upward trend; Infectious Disease consulted, Dr. Etienne Hammond; banda cultures redrawn, negative to date Acute surgical blood loss anemia, requiring transfusion of packed red blood cells on 11/26/2021, stable and upward trending Acute postoperative positive fluid balance with weight gain managed with diuretic therapy, preoperative weight: 104 kg, today's weight: 98.5 kg Acute pulmonary insufficiency requiring oxygen supplementation to maintain oxygen saturation greater than 90%; successfully weaned; ongoing pulmonary toileting; cough managed with Symbicort, Mucinex and Tessalon; pulmonology consulted prior for optimization Acute postoperative atrial fibrillation with rapid ventricular response managed with amiodarone antiarrhythmic therapy; resolved Acute left hemothorax requiring chest tube placement on 11/25/2021 with 2.6 L blood return; maintained; chest tube removed on 11/30/2021 Acute hospital-acquired pneumonia with positive sputum culture on 11/24/2021 for heavy H. influenzae; antibiotic therapy managed by pulmonology [id number] loculated mixed density hemothorax noted to CT scan on 12/01/21; patient underwentinsertion of left chest tube by interventional radiology. Pulmonology recommended instillation of intrapleural lytic therapy to facilitate drainage. tPA 10 mg and DNAse 5mg via chest tube; removed on12/04/2021 Acute erythematous distal aspect of sternal incision of unknown etiology, linezolid antibiotic therapy continued He is here today for a follow up appointment and reports that he is overall doing very well at home. His vitals today are BP 128/81, HR 74 bpm, SpO2 96%, weight 97.5 kg. He tells me that his cough isimproving but is still there. He has not been taking any mucinex or tessalon perles because he doesnot think it helps any but the cough is gradually improving on its own. He has not been wearing hisheart hugger because he says it hurts his rib cage when he uses it, therefore he has just been crossing his arms in front of his chest for support. I reminded him that we recommend using the heart hugger for a minimum of 5 weeks, but at the very least he should be holding a pillow firmly against his chest when coughing. He also complains of not being able to sleep very much at night, and we had adiscussion about avoiding too much napping during the day, no screen time an hour before bed, and good sleep hygiene. I also informed him that he can take benadryl otc occasionally to help with sleep. He is driving, which I recommended he avoid until his 5 week appointment, but he states that he doesn't have anyone to help him with rides. He has been taking all medications and antibiotics as prescribed and he saw Dr. Hammond earlier this week in his office. His sternal incision looks well healed and the area of erythema and calor has greatly improved since I last saw him. Still small amount of erythema present which blanches slightly but in the process of fading and there is currently no edema or calor. Photographs shown below for reference. Mr. Mak has been very active and has been walking frequently running errands. He also has two flights of stairs to climb leading up to his apartment. He has been having regular daily bowel movements and is voiding without difficulty. At this time I have not made any medication changes. His CXR is greatly improved from last week andthere is only small left sided pleural effusion still remaining. Wires are aligned, bottom wire dehisced but this was present while patient was still in the hospital. His lab work was unremarkable and is shown below. I will keep him on the lasix and potassium supplementation for now as he appears to be tolerating the diuretics well. We will see him on , 12/25 for his five week postoperative appointment. Objective Tobacco Use Smoking Status Every Day Packs/day: 1.00 Years: 45.00 Pack years: 45.00 Types: Cigarettes Smokeless Tobacco Never Tobacco Comments Down to 8 cig daily ECG 12 Lead Final Result by Interface, Lab Results In [facility] (11/25/2021 0720) Echocardiogram complete w contrast Final Result by Lee Taylor MD (11/07/2021 1444) Stress test only, exercise Final Result by Eunice Rodriguez MD (05/30/2018 1056) Cardiac Catheterization Final Result by Minoo Grimm MD (11/07/2021 1050) HOME Medications: Patient's Medications New Prescriptions No medications on file Previous Medications ACETAMINOPHEN (TYLENOL) 325 MG TABLET Take 2 (two) tablets (650 mg total) by mouth every 6 (six) hours as needed for pain . AMIODARONE (CORDARONE) 200 MG TABLET Take 1 (one) tablet (200 mg total) by mouth 2 (two) times a day . ASPIRIN 81 MG EC TABLET Take 1 (one) tablet (81 mg total) by mouth daily . ATORVASTATIN (LIPITOR) 20 MG TABLET Take 0.5 (one-half) tablet (10 mg total) by mouth nightly . DOCUSATE SODIUM (COLACE) 100 MG CAPSULE Take 1 (one) capsule (100 mg total) by mouth daily Start: 12/10/21. FERROUS SULFATE 325 (65 FE) MG TABLET Take 1 (one) tablet (325 mg total) by mouth 3 (three) times aday with meals . FUROSEMIDE (LASIX) 20 MG TABLET Take 1 (one) tablet (20 mg total) by mouth daily Start: 12/10/21. GABAPENTIN (NEURONTIN) 300 MG CAPSULE Take 2 (two) capsules (600 mg total) by mouth 3 (three) timesa day (Days supply per fill: 30) . LINEZOLID (ZYVOX) 600 MG TABLET Take 1 (one) tablet (600 mg total) by mouth 2 (two) times a day x 2Weeks. Follow-up with the clinic See Dr. Hammond in 10days. Obtain labs for CBC, ESR, and CRP weekly x 2wks. for 14 days . METOPROLOL SUCCINATE (TOPROL-XL) 25 MG 24 HR TABLET Take 0.5 (one-half) tablet (12.5 mg total) by mouth daily Start: 12/10/21. PANTOPRAZOLE (PROTONIX) 40 MG TABLET Take 1 (one) tablet (40 mg total) by mouth daily . POTASSIUM CHLORIDE SA (K-DUR,KLOR-CON) 20 MEQ TABLET Take 1 (one) tablet (20 mEq total) by mouth daily Start: 12/10/21. Modified Medications No medications on file Discontinued Medications No medications on file Vital Signs: BP 128/81 (BP Location: Right arm, Patient Position: Sitting, BP Cuff Size: Adult) Pulse 74 Ht 6' Wt 97.5 kg (215 lb) SpO2 96% BMI 29.16 kg/m Physical Exam Vitals reviewed. Constitutional: General: He is not in acute distress. Appearance: Normal appearance. He is not diaphoretic. HENT: Head: Normocephalic and atraumatic. Right Ear: External ear normal. Left Ear: External ear normal. Nose: Nose normal. Mouth/Throat: Mouth: Mucous membranes are moist. Eyes: Extraocular Movements: Extraocular movements intact. Cardiovascular: Rate and Rhythm: Normal rate and regular rhythm. Pulses: Normal pulses. Heart sounds: Normal heart sounds. No murmur heard. No friction rub. No gallop. Pulmonary: Effort: Pulmonary effort is normal. No respiratory distress. Breath sounds: Normal breath sounds. No wheezing, rhonchi or rales. Musculoskeletal: General: Normal range of motion. Right lower leg: No edema. Left lower leg: No edema. Skin: General: Skin is warm and dry. Capillary Refill: Capillary refill takes less than 2 seconds. Findings: Erythema (sternal incision well healed. Some erythema still present to distal aspect of incision, improved) present. Neurological: General: No focal deficit present. Mental Status: He is alert and oriented to person, place, and time. Psychiatric: Mood and Affect: Mood normal. Behavior: Behavior normal. Labs: Lab Results Component Value Date GLUCOSE 124 (H) 12/19/2021 CALCIUM 8.8 12/19/2021 NA 143 12/19/2021 K 4.3 12/19/2021 CL 107 12/19/2021 BUN 12 12/19/2021 CREATININE 1.10 12/19/2021 documented in this [id number] Evaluation + Plan note* Assessment & Plan Note - Julio C Zheng PA-C - 12/19/2021 11:42 AM EDTAssociated Problem(s): S/P CABG x 2 1. Continue strict sternal precautions, no lifting more than 10 pounds and no driving for 5 weeks. 2. Continue to use incentive spirometer. 3. Continue strict leg elevation when not ambulating or eating meals. 4. Continue to shower daily, wash incisions with warm soap and water, pat dry. 5. Continue to increase ambulation 4 times daily as tolerated. Contact the office of Dr. Nathan Eng and Dr. Yong Noyola should you have any questions or concerns regarding your ongoing recovery from heart surgery at [phone], option #3 after 5:00 PM [id number] Miscellaneous Notes* Assessment & Plan Note - Julio C Zheng PA-C - 12/19/2021 11:42 AM EDTAssociated Problem(s): S/P CABG x 2 1. Continue strict sternal precautions, no lifting more than 10 pounds and no driving for 5 weeks. 2. Continue to use incentive spirometer. 3. Continue strict leg elevation when not ambulating or eating meals. 4. Continue to shower daily, wash incisions with warm soap and water, pat dry. 5. Continue to increase ambulation 4 times daily as tolerated. Contact the office of Dr. Nathan Eng and Dr. Yong Noyola should you have any questions or concerns regarding your ongoing recovery from heart surgery at [phone], option #3 after 5:00 PM documented in this [id number] Instructions* Patient Instructions* Julio C Zheng PA-C - 12/19/2021 10:46 AM EDT 1. Continue strict sternal precautions, no lifting more than 10 pounds and no driving for 5 weeks. 2. Continue to use incentive spirometer. 3. Continue strict leg elevation when not ambulating or eating meals. 4. Continue to shower daily, wash incisions with warm soap and water, pat dry. 5. Continue to increase ambulation 4 times daily as tolerated. Contact the office of Dr. Nathan Eng and Dr. Yong Noyola should you have any questions or concerns regarding your ongoing recovery from heart surgery at [phone], option #3 after 5:00 PM documented in this [id number] History of Present illness Narrative* Babita Valdez PA-C - 12/12/2021 12:51 PM EDT Patient had called to state that he did not receive antibiotic therapy which was to be delivered [facility]. Note was sent to slot service specialist for follow-up. In the meantime, phone call placed today on 12/12/2021 to patient to see if he has received his antibiotic yet. Patient states that shortly after he gotoff the phone with this PA, his neighbor had indicated that the package from [facility] containing the antibiotic was delivered to his home rather than the patient's home. Patient was able to timely continue antibiotic therapy and states he is feeling better on a daily basis. He continues to feel short ofbreath however not to the extreme which he was initially. Patient advised to contact cardiac surgery should he have any questions or concerns, otherwise, we will follow-up with him in the clinic. Patient verbalizes appreciation for phone call and follow-up. Denies complaints. States he is walking around and running errands without difficulty. documented in this [id number] History of Present illness Narrative* Shani Herrera RN - 11/19/2021 2:32 PM EDT Triage call received from pt stating he is to take a pill before surgery tomorrow and it is not a the pharmacy. Pt unable to remember what it is or who told him to take it. Pt scheduled for [facility] with Dr Eng tomorrow am. PETE Escamilla, called and made aware of above. Per Maryse, he will call pt himself now. documented in this [id number] History of Present illness Narrative* Jules Bowman MD - 11/12/2021 12:50 PM EDT Vascular Surgery Consult Heart & Vascular [facility] 11/12/2021 Jules Bowman MD Vascular & Endovascular Surgery [address] [place] [address] Medical Office [facility] [address] Patient: Maryse Mak Date of : 1955 (66 y.o.) Referring Provider: Maryse Melton,* PCP: PAULETTE CARBALLO CNP Assessment & Plan Maryse Mak is a 66 y.o. male with history of alcohol abuse, arthritis, chronic back pain, clotting disorder with DVT, cocaine abuse, CAD, hyperlipidemia, hypertension, tobacco dependence who is beingworked up to undergo CABG. Patient has patent bilateral radial arteries. Based on the arterial duplex he has complete palmar arch in both upper extremities. However physical exam there might be a radial artery dominant. Recommending upper extremity venous mapping as an alternative conduit to the radial arteries. No problem-specific Assessment & Plan notes found for this encounter. Follow-up: As needed Chief Complaint: Evaluate Subjective History of Present Illness: Maryse Mak is a 66 y.o. male with history of multiple medical problems that include alcohol abuse, arthritis, chronic back pain, clotting disorder with DVT, cocaine abuse, coronary artery disease, hyperlipidemia, hypertension, tobacco dependence who is currently being worked up to undergo coronary artery bypass graft. Patient was referred to vascular surgery for an evaluation of his upper extremity perfusion as long as the harvest of the radial arteries for a coronary bypass conduit. Patient has had his bilateral greater saphenous veins previously harvested for his lower extremity bypasses. Patient denies any upper extremity intermittent claudication or rest pain. He denies any upper extremity wounds ulcerations. Both upper extremities are warm and well-perfused with bilateral radial and ulnar pulses. The radial pulses on both sides a stronger on the ulnar pulses. Objective Upper extremity radial mapping was reviewed by me and shows patent radial and ulnar arteries with bilateral complete palmar arch. ECG 12 Lead Final Result by Jeremy Segovia MD (10/30/2021 1010) Echocardiogram complete w contrast Final Result by Lee Taylor MD (11/07/2021 1444) Stress test only, exercise Final Result by Eunice Rodriguez MD (05/30/2018 1056) Cardiac Catheterization Final Result by Minoo Grimm MD (11/07/2021 1050) Review of Systems: Constitution: Negative for decreased appetite, weakness and weight loss. Negative for generalized malaise/weakness; Negative for fever/chills. HENT: Negative for hearing loss, hoarse voice and nosebleeds. Eyes: Negative for blurred vision, double vision, vision loss in left eye and vision loss in right eye. Cardiovascular: Negative for chest pain, leg pain and orthopnea. Lower extremity edema Respiratory: Negative for hemoptysis and shortness of breath. Endocrine: Negative for cold intolerance, heat intolerance, polyphagia and polyuria. Hematologic/Lymphatic: Does bruise/bleed easily. Skin: Negative for color change, itching and nail changes. Musculoskeletal: Positive for arthritis and joint pain. Positive for back pain. Gastrointestinal: Negative for abdominal pain, hematochezia and melena. Genitourinary: Negative for dysuria, frequency, hematuria and nocturia. Neurological: Negative for brief paralysis, focal weakness, loss of balance and seizures. Psychiatric/Behavioral: Negative for altered mental status, hallucinations and memory loss. Past Medical History: Diagnosis Date Alcohol abuse 06/19/2019 Arthritis Chronic back pain Clotting disorder (HCC) DVT Cocaine abuse (HCC) 10/28/2017 Coronary artery disease moderate stenosis of LAD and mild plaque in other vessels Homeless 06/19/2019 Hyperlipidemia Hypertension Tobacco dependence 04/29/2020 Past Surgical History: Procedure Laterality Date BACK SURGERY CARDIAC CATHETERIZATION N/A 11/07/2021 Procedure: Coronary Angiogram; Surgeon: Minoo Grimm MD; Location: [employer]; Service: Cardiovascular HC LEFT HEART CATH N/A 11/07/2021 Procedure: Left Heart Cath; Surgeon: Minoo Grimm MD; Location: [employer]; Service: Cardiovascular left arm leg sx right and left blood clots Bilateral 2009 in [facility] SHOULDER SURGERY Family History Problem Relation Age of Onset Heart disease Father Heart attack Father Heart attack Maternal Uncle Heart disease Maternal Uncle Social History Tobacco Use Smoking Status Every Day Packs/day: 1.00 Years: 45.00 Pack years: 45.00 Types: Cigarettes Smokeless Tobacco Never Tobacco Comments Down to 8 cig daily Allergies: Patient has no known allergies. HOME Medications: Current Outpatient Medications on File Prior to Visit Medication Sig aspirin 81 MG EC tablet Take 1 (one) tablet (81 mg total) by mouth daily . gabapentin (NEURONTIN) 600 MG tablet Take 600 mg by mouth 3 (three) times a day . lisinopriL (PRINIVIL,ZESTRIL) 30 MG tablet Take 1 (one) tablet (30 mg total) by mouth daily . No current facility-administered medications on file prior to visit. Vital Signs: BP (!) 135/90 (BP Location: Left arm, Patient Position: Sitting) Pulse 62 Ht 6' Wt 102.1 kg (225 lb) BMI 30.52 kg/m Physical Exam Constitutional: General: He is not in acute distress. Appearance: Normal appearance. He is obese. He is not toxic-appearing. HENT: Head: Normocephalic and atraumatic. Nose: No congestion. Eyes: Extraocular Movements: Extraocular movements intact. Conjunctiva/sclera: Conjunctivae normal. Pupils: Pupils are equal, round, and reactive to light. Cardiovascular: Pulses: Radial pulses are 2+ on the right side and 2+ on the left side. Comments: Bilateral upper extremities are warm and well-perfused with palpable distal pulses. Radial stronger at the wrist compared to the ulnar pulse bilaterally. No wounds ulcerations. Pulmonary: Effort: Pulmonary effort is normal. No respiratory distress. Musculoskeletal: General: No swelling, tenderness, deformity or signs of injury. Skin: General: Skin is warm. Capillary Refill: Capillary refill takes less than 2 seconds. Coloration: Skin is not jaundiced. Findings: No bruising. Neurological: General: No focal deficit present. Mental Status: He is alert and oriented to person, place, and time. Mental status is at baseline. Psychiatric: Mood and Affect: Mood normal. Behavior: Behavior normal. Thought Content: Thought content normal. Judgment: Judgment normal. Lab Results Component Value Date CHOL 167 06/18/2019 LDLCALC 75 06/18/2019 TRIG 207 (H) 06/18/2019 HDL 51 06/18/2019 documented in this [id number] Instructions* Patient Instructions* Violeta Forrester MA - 11/12/2021 11:08 AM EDT How to contact your Care Team: Provider: MD Silverio Cyr CNP Jill Bender, PA Nurse: Jessie Rivero RN To reschedule office appointments call Scheduling [phone] In case of an emergency please call 911. When in need of refills please call the phone number listed above. Please include medication name, pharmacy name and specify 30 or 90 day supply Please check with your pharmacy within 24 hours of your request for refill. You must follow up as directed to continue current refills. Thank you! documented in this [id number] Note* Addendum Note - Maryse Melton PA-C - 11/11/2021 11:16 AM EDTAddended by: MARYSE MELTON on: 11/11/2021 11:16 AM Modules accepted: Orders [facility] Work Phone: [phone] Miscellaneous Notes* Addendum Note - Maryse Melton PA-C - 11/11/2021 11:16 AM EDTAddended by: MARYSE MELTON on: 11/11/2021 11:16 AM Modules accepted: Orders documented in this [id number] History of Present illness Narrative* Babita Valdez PA-C - 11/10/2021 4:06 PM EDT Preoperative teaching provided to patient 1. Patient teaching notebook provided 2. Preoperative diagnostic studies reviewed. 3. Remove all jewelry 4. Smoking cessation education 5. Shower with antibacterial soap evening before and morning of surgery: Hibiclens skin cleanser provided 6. Mouth care: brush teeth and swish with antibacterial mouthwash evening before and morning of surgery 7. Nothing by mouth after midnight of procedure 8. Do not shave/clip body hair 9. Take beta blockade evening before surgery 10. Incentive spirometer and PEP therapy instruction 11. Heart hugger and heart pillow instruction 12. [place]-shama catheter, A-line, temporary epicardial pacemaker education 13. Incisional care 14. Ambulation 4 times daily and progress as tolerated 15. Consents signed and placed onto chart Last dose of antiplatelet therapy: [employer] floorperson: Maryse Parisa (son) [phone] Misty Mak (daughter) [phone] Code word: 1972 documented in this [id number] History of Present illness Narrative* Wood Eng MD - 11/10/2021 2:56 PM EDT Maryse Mak [phone] [facility] Wood Eng MD 11/10/21 Room/bed info not found Consultation No ref. provider found Chief Complaint Patient presents with [facility] Care CABG consult History of Present Illness Mr. Maryse Mak is a 66-year-old male with multiple medical problems that include alcohol abuse, arthritis chronic, chronic back pain, clotting disorder with DVT, cocaine abuse, coronary artery disease, hyperlipidemia, hypertension, tobacco dependence who comes today for evaluation of his multivessel coronary artery disease. This patient also has a long history of surgical procedures include back surgery, left arm, revascularization of both lower extremities and shoulder surgery. He has been complaining of fatigue and chest pain with activity. He denies chest pain at rest. The patient also denies nausea vomiting or diaphoresis. He underwent a cardiac cath by Dr. Grimm which revealed 80% stenosis of his RCA, 70% stenosis of obtuse marginal and 70% stenosis of the LAD. Surface echo demonstrated: 1. Left ventricular chamber dimension is normal. 2. Left ventricular systolic function is normal with an ejection fraction by Biplane Method of Discs of 70 %. 3. The left ventricular diastolic function is normal. 4. Right ventricular chamber dimension is borderline enlarged. 5. There is mild aortic valve sclerosis. 6. The proximal ascending aorta is dilated measuring 4.0 cm with an index of 1.8 cm/m2. He comes today to discuss surgical revascularization of his coronary arteries. Assessment and Plan: Mr. Maryse Mak is a 66-year-old male with significant peripheral vascular disease as well as coronary artery disease. He has fatigue and chest pain as main symptoms. I have discussed with him the clinical implications of multivessel coronary artery disease. He understands the indications for coronary artery bypass grafting. The STS data stratification score places him in the risk of mortality of 0.4 and morbidity-mortality of 4.3. I believe that his surgical risk are somewhat higher than what specified by the STS due to his peripheral vascular disease, he might be in the 2 to 3% risk of mortality. Also, the risk of morbid mortality might be twice higher than what is specified by the STS. I have explained to him the benefits and possible complications of coronary artery bypass grafting.Due to the fact that all his lower extremities veins have been used for peripheral vascular procedures, we'll need to use bilateral internal mammary arteries as well as left radial artery for complete revascularization. Patient understood the benefit and possible complications and he is willing to proceed with surgery next week. Since the patient is a vasculopath, we will have vascular surgery service to see him prior to CABG. Past Medical History: Diagnosis Date Alcohol abuse 06/19/2019 Arthritis Chronic back pain Clotting disorder (HCC) DVT Cocaine abuse (HCC) 10/28/2017 Coronary artery disease moderate stenosis of LAD and mild plaque in other vessels Homeless 06/19/2019 Hyperlipidemia Hypertension Tobacco dependence 04/29/2020 Past Surgical History: Procedure Laterality Date BACK SURGERY left arm leg sx right and left blood clots SHOULDER SURGERY Current Outpatient Medications on File Prior to Visit Medication Sig Dispense Refill aspirin 81 MG EC tablet Take 1 (one) tablet (81 mg total) by mouth daily . 30 tablet 3 gabapentin (NEURONTIN) 600 MG tablet Take 600 mg by mouth 3 (three) times a day . lisinopriL (PRINIVIL,ZESTRIL) 30 MG tablet Take 1 (one) tablet (30 mg total) by mouth daily . 90 tablet 3 [DISCONTINUED] atenoloL (TENORMIN) 25 MG tablet Take 1 (one) tablet (25 mg total) by mouth daily . 30 tablet 11 [DISCONTINUED] pravastatin (PRAVACHOL) 20 MG tablet Take 1 (one) tablet (20 mg total) by mouth nightly . 30 tablet 11 No current facility-administered medications on file prior to visit. No Known Allergies Family History Problem Relation Age of Onset Heart disease Father Heart attack Father Heart attack Maternal Uncle Heart disease Maternal Uncle Social History Socioeconomic History Marital status: Single Tobacco Use Smoking status: Every Day Packs/day: 1.00 Years: 45.00 Pack years: 45.00 Types: Cigarettes Last attempt to quit: 06/24/2020 Years since quittin.3 Smokeless tobacco: Never Vaping Use Vaping Use: Never used Substance and Sexual Activity Alcohol use: Not Currently Drug use: Not Currently Types: Cocaine Comment: Pt states that he has been clean for 8 months Sexual activity: Not Currently control/protection: None Review of Systems Constitutional: Negative. HENT: Negative. Eyes: Negative. Cardiovascular: Positive for chest pain and dyspnea on exertion. Respiratory: Positive for shortness of breath. Skin: Negative. Musculoskeletal: Positive for back pain. Gastrointestinal: Negative. Genitourinary: Negative. Neurological: Negative. Psychiatric/Behavioral: Negative. BP 112/74 (BP Location: Left arm) Pulse 62 Ht 6' Wt 100.2 kg (221 lb) SpO2 96% BMI 29.97 kg/m Physical Exam HENT: Head: Normocephalic. Nose: Nose normal. Mouth/Throat: Mouth: Mucous membranes are moist. Cardiovascular: Rate and Rhythm: Normal rate. Pulses: Normal pulses. Abdominal: General: Abdomen is flat. Musculoskeletal: General: Normal range of motion. Cervical back: Normal range of motion. Skin: General: Skin is warm. Neurological: General: No focal deficit present. Mental Status: He is alert and oriented to person, place, and time. Psychiatric: Behavior: Behavior normal. WBC Date Value Ref Range Status 11/07/2021 8.10 4.50 - 11.00 K/mcL Final 02/21/2018 12.4 (H) 3.6 - 10.4 K/mcL Final Hemoglobin Date Value Ref Range Status 11/07/2021 14.8 13.5 - 17.5 g/dL Final 02/21/2018 16.9 12.9 - 16.9 g/dL Final Hemoglobin, Blood Gas Date Value Ref Range Status 11/07/2021 14.6 13.5 - 17.5 g/dL Final Hematocrit, Calculated Date Value Ref Range Status 11/07/2021 44.8 41.0 - 53.0 % Final Hematocrit Date Value Ref Range Status 11/07/2021 44.3 41.0 - 53.0 % Final MCV Date Value Ref Range Status 11/07/2021 90.6 80.0 - 100.0 fL Final Platelets Date Value Ref Range Status 11/07/2021 189 150 - 400 K/mcL Final 02/21/2018 214 139 - 354 K/mcL Final Hemoglobin A1C Date Value Ref Range Status 11/07/2021 5.9 (H) 4.0 - 5.6 % Final Glucose Date Value Ref Range Status 11/07/2021 113 (H) 65 - 99 mg/dL Final Calcium Date Value Ref Range Status 11/07/2021 8.2 (L) 8.4 - 10.2 mg/dL Final Sodium Date Value Ref Range Status 11/07/2021 143 135 - 145 mmol/L Final Potassium Date Value Ref Range Status 11/07/2021 4.1 3.5 - 5.1 mmol/L Final Chloride Date Value Ref Range Status 11/07/2021 113 (H) 98 - 108 mmol/L Final BUN Date Value Ref Range Status 11/07/2021 12 8 - 25 mg/dL Final 02/21/2018 11 8 - 25 mg/dL Final Creatinine Date Value Ref Range Status 11/07/2021 0.84 0.80 - 1.30 mg/dL Final 02/21/2018 1.10 0.80 - 1.30 mg/dL Final INR Date Value Ref Range Status 11/07/2021 1.1 0.8 - 1.1 Final 08/04/2017 0.98 Final Comment: The [employer] recommended therapeutic range for Warfarin (Coumadin) therapy goals: PROPHYLAXIS/TREATMENT of: INR Venous Thrombosis, Pulmonary Embolism 2.0-3.0 Prevention of VTE (Orthopedic Surgery) 2.0-3.0 Atrial Fibrillation 2.0-3.0 Myocardial Infarction 2.0-3.0 Mechanical Prosthetic Heart Valves (Aortic position) 2.0-3.0 Mechanical Prosthetic Heart Valves (Mitral Position) 2.5-3.5 [employer] evidence-based clinical practice guidelines. CHEST. 2012 (9th ed) APTT Date Value Ref Range Status 11/07/2021 80 (H) 23 - 34 seconds Final Albumin Date Value Ref Range Status 11/07/2021 3.2 3.2 - 5.2 g/dL Final ] Problem List Items Addressed This Visit None documented in this [id number] History of Present illness Narrative* Wood Eng MD - 11/10/2021 2:56 PM EDT Maryse Mak [phone] [facility]@ Wood Eng MD 11/10/21 Room/bed info not found Consultation No ref. provider found Chief Complaint Patient presents with [facility] consult History of Present Illness Mr. Maryse Mak is a 66-year-old male with multiple medical problems that include alcohol abuse, arthritis chronic, chronic back pain, clotting disorder with DVT, cocaine abuse, coronary artery disease, hyperlipidemia, hypertension, tobacco dependence who comes today for evaluation of his multivessel coronary artery disease. This patient also has a long history of surgical procedures include back surgery, left arm, revascularization of both lower extremities and shoulder surgery. He has been complaining of fatigue and chest pain with activity. He denies chest pain at rest. The patient also denies nausea vomiting or diaphoresis. He underwent a cardiac cath by Dr. Grimm which revealed 80% stenosis of his RCA, 70% stenosis of obtuse marginal and 70% stenosis of the LAD. Surface echo demonstrated: 1. Left ventricular chamber dimension is normal. 2. Left ventricular systolic function is normal with an ejection fraction by Biplane Method of Discs of 70 %. 3. The left ventricular diastolic function is normal. 4. Right ventricular chamber dimension is borderline enlarged. 5. There is mild aortic valve sclerosis. 6. The proximal ascending aorta is dilated measuring 4.0 cm with an index of 1.8 cm/m2. He comes today to discuss surgical revascularization of his coronary arteries. Assessment and Plan: Mr. Maryse Mak is a 66-year-old male with significant peripheral vascular disease as well as coronary artery disease. He has fatigue and chest pain as main symptoms. I have discussed with him the clinical implications of multivessel coronary artery disease. He understands the indications for coronary artery bypass grafting. The STS data stratification score places him in the risk of mortality of 0.4 and morbidity-mortality of 4.3. I believe that his surgical risk are somewhat higher than what specified by the STS due to his peripheral vascular disease, he might be in the 2 to 3% risk of mortality. Also, the risk of morbid mortality might be twice higher than what is specified by the STS. I have explained to him the benefits and possible complications of coronary artery bypass grafting.Due to the fact that all his lower extremities veins have been used for peripheral vascular procedures, we'll need to use bilateral internal mammary arteries as well as left radial artery for complete revascularization. Patient understood the benefit and possible complications and he is willing to proceed with surgery next week. Since the patient is a vasculopath, we will have vascular surgery service to see him prior to CABG. Past Medical History: Diagnosis Date Alcohol abuse 06/19/2019 Arthritis Chronic back pain Clotting disorder (HCC) DVT Cocaine abuse (HCC) 10/28/2017 Coronary artery disease moderate stenosis of LAD and mild plaque in other vessels Homeless 06/19/2019 Hyperlipidemia Hypertension Tobacco dependence 04/29/2020 Past Surgical History: Procedure Laterality Date BACK SURGERY left arm leg sx right and left blood clots SHOULDER SURGERY Current Outpatient Medications on File Prior to Visit Medication Sig Dispense Refill aspirin 81 MG EC tablet Take 1 (one) tablet (81 mg total) by mouth daily . 30 tablet 3 gabapentin (NEURONTIN) 600 MG tablet Take 600 mg by mouth 3 (three) times a day . lisinopriL (PRINIVIL,ZESTRIL) 30 MG tablet Take 1 (one) tablet (30 mg total) by mouth daily . 90 tablet 3 [DISCONTINUED] atenoloL (TENORMIN) 25 MG tablet Take 1 (one) tablet (25 mg total) by mouth daily . 30 tablet 11 [DISCONTINUED] pravastatin (PRAVACHOL) 20 MG tablet Take 1 (one) tablet (20 mg total) by mouth nightly . 30 tablet 11 No current facility-administered medications on file prior to visit. No Known Allergies Family History Problem Relation Age of Onset Heart disease Father Heart attack Father Heart attack Maternal Uncle Heart disease Maternal Uncle Social History Socioeconomic History Marital status: Single Tobacco Use Smoking status: Every Day Packs/day: 1.00 Years: 45.00 Pack years: 45.00 Types: Cigarettes Last attempt to quit: 06/24/2020 Years since quittin.3 Smokeless tobacco: Never Vaping Use Vaping Use: Never used Substance and Sexual Activity Alcohol use: Not Currently Drug use: Not Currently Types: Cocaine Comment: Pt states that he has been clean for 8 months Sexual activity: Not Currently control/protection: None Review of Systems Constitutional: Negative. HENT: Negative. Eyes: Negative. Cardiovascular: Positive for chest pain and dyspnea on exertion. Respiratory: Positive for shortness of breath. Skin: Negative. Musculoskeletal: Positive for back pain. Gastrointestinal: Negative. Genitourinary: Negative. Neurological: Negative. Psychiatric/Behavioral: Negative. BP 112/74 (BP Location: Left arm) Pulse 62 Ht 6' Wt 100.2 kg (221 lb) SpO2 96% BMI 29.97 kg/m Physical Exam HENT: Head: Normocephalic. Nose: Nose normal. Mouth/Throat: Mouth: Mucous membranes are moist. Cardiovascular: Rate and Rhythm: Normal rate. Pulses: Normal pulses. Abdominal: General: Abdomen is flat. Musculoskeletal: General: Normal range of motion. Cervical back: Normal range of motion. Skin: General: Skin is warm. Neurological: General: No focal deficit present. Mental Status: He is alert and oriented to person, place, and time. Psychiatric: Behavior: Behavior normal. WBC Date Value Ref Range Status 11/07/2021 8.10 4.50 - 11.00 K/mcL Final 02/21/2018 12.4 (H) 3.6 - 10.4 K/mcL Final Hemoglobin Date Value Ref Range Status 11/07/2021 14.8 13.5 - 17.5 g/dL Final 02/21/2018 16.9 12.9 - 16.9 g/dL Final Hemoglobin, Blood Gas Date Value Ref Range Status 11/07/2021 14.6 13.5 - 17.5 g/dL Final Hematocrit, Calculated Date Value Ref Range Status 11/07/2021 44.8 41.0 - 53.0 % Final Hematocrit Date Value Ref Range Status 11/07/2021 44.3 41.0 - 53.0 % Final MCV Date Value Ref Range Status 11/07/2021 90.6 80.0 - 100.0 fL Final Platelets Date Value Ref Range Status 11/07/2021 189 150 - 400 K/mcL Final 02/21/2018 214 139 - 354 K/mcL Final Hemoglobin A1C Date Value Ref Range Status 11/07/2021 5.9 (H) 4.0 - 5.6 % Final Glucose Date Value Ref Range Status 11/07/2021 113 (H) 65 - 99 mg/dL Final Calcium Date Value Ref Range Status 11/07/2021 8.2 (L) 8.4 - 10.2 mg/dL Final Sodium Date Value Ref Range Status 11/07/2021 143 135 - 145 mmol/L Final Potassium Date Value Ref Range Status 11/07/2021 4.1 3.5 - 5.1 mmol/L Final Chloride Date Value Ref Range Status 11/07/2021 113 (H) 98 - 108 mmol/L Final BUN Date Value Ref Range Status 11/07/2021 12 8 - 25 mg/dL Final 02/21/2018 11 8 - 25 mg/dL Final Creatinine Date Value Ref Range Status 11/07/2021 0.84 0.80 - 1.30 mg/dL Final 02/21/2018 1.10 0.80 - 1.30 mg/dL Final INR Date Value Ref Range Status 11/07/2021 1.1 0.8 - 1.1 Final 08/04/2017 0.98 Final Comment: The [employer] [employer] recommended therapeutic range for Warfarin (Coumadin) therapy goals: PROPHYLAXIS/TREATMENT of: INR Venous Thrombosis, Pulmonary Embolism 2.0-3.0 Prevention of VTE (Orthopedic Surgery) 2.0-3.0 Atrial Fibrillation 2.0-3.0 Myocardial Infarction 2.0-3.0 Mechanical Prosthetic Heart Valves (Aortic position) 2.0-3.0 Mechanical Prosthetic Heart Valves (Mitral Position) 2.5-3.5 [employer] evidence-based clinical practice guidelines. CHEST. 2012 (9th ed) APTT Date Value Ref Range Status 11/07/2021 80 (H) 23 - 34 seconds Final Albumin Date Value Ref Range Status 11/07/2021 3.2 3.2 - 5.2 g/dL Final ] Problem List Items Addressed This Visit None documented in this [id number] Evaluation + Plan note* Assessment & Plan Note - Jeremy Segovia MD - 10/30/2021 10:20 AM EDT Associated Problem(s): CAD (coronary artery disease) New onset of class III angina status post ER visit. [id number] Miscellaneous Notes* Assessment & Plan Note - Jeremy Segovia MD - 10/30/2021 10:20 AM EDTAssociated Problem(s): CAD (coronary artery disease) New onset of class III angina status post ER visit. documented in this [id number] History of Present illness Narrative* Jeremy Segovia MD - 10/30/2021 10:16 AM EDT [facility] [address] ([address]) [facility] [address] [facility] [id number] Subjective: Maryse Mak is a 66 y.o. male seen in the office today for Chief Complaint Patient presents with Follow-up Intermittent chest pain & Sob w/ exertion ED [facility] 10/21/21 -sharp/ tightness center of chest and between shoulder blades, last episode last night while smoking, lasting a few minutes comes and goes Patient comes in following up on a recent emergency room visit at [facility]. [place] Had chest discomfort was concerned enough to go to the emergency room which is unusual for him. Work-up was unremarkable troponin no significant changes. EKG read as no significant changes. EKG today shows some minimal T wave changes anteriorly which are new. Chest discomfort that day was 4 out of 10 resolved slowly on its own. Really not had a recurrence of that. Has known coronary disease dating back to 2007 with a 50 to 75% LAD lesion normal left-ventricular function has done extremely well since that time despite smoking 6 cigarettes. Previous stress testing is been unremarkable Overview of Problems Addressed: Problem Cad (Coronary Artery Disease) Nuclear stress test negative for ischemia 2016. Standard stress test unremarkable May 2018. No history of myocardial infarction. past medical history significant for coronary artery disease. He has known stenosis of the proximalLAD by cardiac catheterization in 2007. Fractional flow reserve assessment at that time did not demonstrate physiologic significance. He has a long-standing history of hypertension, hyperlipidemia, profound tobacco abuse Assessment & Plan: Plan patient is thinking about hip surgery later this year and recent ER visit for chest pain with known coronary disease dating back 14 years recommend left heart catheterization to evaluate concerned the LAD lesion could certainly progressed. New onset chest discomfort with Hx of ASHD. Recommend restart aspirin 81 mg daily we will start low-dose pravastatin which he does agree to take cholesterols never been that high we discussed smoking cessation. Also start atenolol 25 mg daily;pt. Concerned about side effects. Avoid any moderate or heavy exertion until results of the heart catheterization are known. Patient categorically denies any iodine or contrast allergy or reactions in the past. History of multiple CT scans and remote heart cath. CAD (coronary artery disease) New onset of class III angina status post ER visit. Histories: Past Medical History: Diagnosis Date Alcohol abuse 06/19/2019 Arthritis Chronic back pain Clotting disorder (HCC) DVT Cocaine abuse (HCC) 10/28/2017 Coronary artery disease moderate stenosis of LAD and mild plaque in other vessels Homeless 06/19/2019 Hyperlipidemia Hypertension Tobacco dependence 04/29/2020 Past Surgical History: Procedure Laterality Date BACK SURGERY left arm leg sx right and left blood clots SHOULDER SURGERY Family History Problem Relation Age of Onset Heart disease Father Heart attack Father Heart attack Maternal Uncle Heart disease Maternal Uncle Social History Tobacco Use Smoking status: Every Day Packs/day: 1.00 Years: 45.00 Pack years: 45.00 Types: Cigarettes Last attempt to quit: 06/24/2020 Years since quittin.3 Smokeless tobacco: Never Vaping Use Vaping Use: Never used Substance Use Topics Alcohol use: Not Currently Drug use: Not Currently Types: Cocaine Comment: Pt states that he has been clean for 8 months Patient's Medications New Prescriptions PRAVASTATIN (PRAVACHOL) 20 MG TABLET Take 1 (one) tablet (20 mg total) by mouth nightly . Previous Medications GABAPENTIN (NEURONTIN) 600 MG TABLET Take 600 mg by mouth 3 (three) times a day . LISINOPRIL (PRINIVIL,ZESTRIL) 30 MG TABLET Take 1 (one) tablet (30 mg total) by mouth daily . Modified Medications Modified Medication Previous Medication ASPIRIN 81 MG EC TABLET aspirin 81 MG EC tablet Take 1 (one) tablet (81 mg total) by mouth daily . Take 1 (one) tablet (81 mg total) by mouth daily. ATENOLOL (TENORMIN) 25 MG TABLET atenoloL (TENORMIN) 25 MG tablet Take 1 (one) tablet (25 mg total) by mouth daily . Take 25 mg by mouth daily . Discontinued Medications MULTIVITAMIN (THERAGRAN) PER TABLET Take 1 tablet by mouth daily . No Active Allergies Review of Systems Constitutional: Negative for malaise/fatigue. Cardiovascular: Positive for chest pain and dyspnea on exertion. Negative for leg swelling and palpitations. Neurological: Negative for dizziness. Objective: Physical Exam Vitals and nursing note reviewed. Constitutional: General: He is not in acute distress. Appearance: He is well-developed. He is not diaphoretic. Comments: No acute distress HENT: Head: Normocephalic. Eyes: General: No scleral icterus. Comments: Pupils equal. Neck: Vascular: No JVD. Cardiovascular: Rate and Rhythm: Regular rhythm. Pulses: Radial pulses are 2+ on the right side and 2+ on the left side. Heart sounds: S1 normal and S2 normal. No murmur heard. No gallop. No S3 or S4 sounds. Comments: Feet warm bilateral. Pulmonary: Effort: No respiratory distress. Breath sounds: Normal breath sounds. No stridor. No wheezing or rales. Abdominal: General: There is no distension. Palpations: Abdomen is soft. Tenderness: There is no abdominal tenderness. There is no guarding. Musculoskeletal: General: No tenderness. Skin: General: Skin is warm and dry. Neurological: Mental Status: He is alert and oriented to person, place, and time. Vitals: Vitals: 10/30/21 0950 BP: 122/82 BP Location: Right arm Patient Position: Sitting BP Cuff Size: X-large Adult Pulse: 88 SpO2: 95% Weight: 99.8 kg (220 lb) Height: 6' Body mass index is 29.84 kg/m . Orders Placed This Encounter Procedures ECG 12 Lead Order Specific Question: Release to patient Answer: Immediate Follow Up Ordered: Return in about 6 months (around 05/01/2022). Jeremy Segovia MD * Tia William MA - 10/30/2021 9:58 AM EDT Review of Systems Constitutional: Negative for malaise/fatigue. Cardiovascular: Positive for chest pain and dyspnea on exertion. Negative for leg swelling and palpitations. Neurological: Negative for dizziness. documented in this [id number] Instructions* Patient Instructions* Izabella Florence RN - 10/30/2021 8:06 AM EDT How to Contact your Care Team: Provider: Dr. Jeremy Segovia MD Teachers' Aide: Izabella Florence RN REFILLS: When in need for refills please call your care team or the office at [phone]. Please include medication name, pharmacy name, and specify 30-day or 90-day supply. Please check with your pharmacy within 24 hours of request for your refill. You must follow up as directed to continue current refills. Thank you! Heart Catheterization Date and Time of your procedure Wednesday11-07-21 at 10:00 a.m. Please arrive at [facility] and check in at the Outpatient Registration by 8:00 a.m. DO NOT eat or drink anything after midnight on 11-06-21. The morning of your procedure you should take your medications with as little water as possible. Bring a list of all medications you take along with dosage and frequency that you take the medications. If you were prescribed Prednisone before your procedure you are to take a total of 60mg (this is often 3 tablets) the night before the procedure and again the morning of the procedure. You will be given a sedative for the procedure and therefore you will not be able to drive home. Please have a ride arranged. Please be advised that occasionally you may experience significant delays for up to several hours due to emergencies and/or unavoidable circumstances. If you have any questions or concerns please contact us at [phone]. documented in this [id number] Hospital Discharge instructions * Instructions* Gregory Corbin, DO - 10/21/2021 Follow-up with your wort extractor the next few days. Return to the emergency department if symptoms get worse. * Attachments The following attachments cannot be sent through Care Everywhere. * Chest Pain (Canadian) documented in this [email or web address] Phone: [phone]) 621-397403-15-2022 Evaluation + Plan note Future Scheduled Tests Laboratory* Basic Metabolic Panel 07/29/21 * Lipid Panel 07/29/21 [facility] 11-22-2021 Miscellaneous Notes* Assessment & Plan Note - Jeremy Segovia MD - 04/07/2021 9:12 AM EST Associated Problem(s): CAD (coronary artery disease) Comes in for regular follow-up last seen here about 3 years ago. Is on lisinopril and aspirin. Has no interest in taking a cholesterol pill. Really does not want take any more pills. Blood pressure is good today although probably runs higher at home at times other times according the patient. Tells me is hospitalized probably around October 2020 in [facility] with low potassium.Apparently prior to the lisinopril. Also had a nuclear stress test at that time good exercise capacity. Negative for any ischemia normal perfusion with reported attenuation artifact. No evidence of RI no evidence of inducible ischemia. Printed from care everywhere Otherwise denies any anginal chest pains. No particular shortness of breath says he is feeling pretty good does have a lot of right hip pain is think about hip surgery next year. Cardiac exam unremarkable. Has done well with medical therapy although he refuses statin therapy. Plan no changes if preoperative EKG is okay next year for hip surgery and no new symptoms would be a moderate but stable cardiac risk based on this assessment today. documented in this [id number] Instructions* Patient Instructions* Tia William MA - 04/07/2021 9:00 AM EST How to Contact your Care Team: Provider: Dr. Jeremy Segovia MD Teachers' Aide: Mar Godinez RN REFILLS: When in need for refills please call your care team or the office at [phone]. Please include medication name, pharmacy name, and specify 30-day or 90-day supply. Please check with your pharmacy within 24 hours of request for your refill. You must follow up as directed to continue current refills. Thank you! documented in this [id number] History of Present illness Narrative* Jeremy Segovia MD - 04/07/2021 8:59 AM EST [facility] [address] [facility] [address] [facility] [id number] Subjective: Maryse Mak is a 66 y.o. male seen in the office today for Chief Complaint Patient presents with Follow-up OVERDUE PER VIRA LAST SEEN 03/17/2019 -sob w/ exertion, dizziness pt states he as vertigo, occasional chest discomfort, Overview of Problems Addressed: Problem Cad (Coronary Artery Disease) Nuclear stress test negative for ischemia 2016. Standard stress test unremarkable May 2018. No history of myocardial infarction. past medical history significant for coronary artery disease. He has known stenosis of the proximalLAD by cardiac catheterization in 2007. Fractional flow reserve assessment at that time did not demonstrate physiologic significance. He has a long-standing history of hypertension, hyperlipidemia, profound tobacco abuse Assessment & Plan: CAD (coronary artery disease) Comes in for regular follow-up last seen here about 3 years ago. Is on lisinopril and aspirin. Has no interest in taking a cholesterol pill. Really does not want take any more pills. Blood pressure is good today although probably runs higher at home at times other times according the patient. Tells me is hospitalized probably around October 2020 in [facility] with low potassium.Apparently prior to the lisinopril. Also had a nuclear stress test at that time good exercise capacity. Negative for any ischemia normal perfusion with reported attenuation artifact. No evidence of RI no evidence of inducible ischemia. Printed from care everywhere Otherwise denies any anginal chest pains. No particular shortness of breath says he is feeling pretty good does have a lot of right hip pain is think about hip surgery next year. Cardiac exam unremarkable. Has done well with medical therapy although he refuses statin therapy. Plan no changes if preoperative EKG is okay next year for hip surgery and no new symptoms would be a moderate but stable cardiac risk based on this assessment today. Histories: Past Medical History: Diagnosis Date Alcohol abuse 06/19/2019 Arthritis Chronic back pain Clotting disorder (HCC) DVT Cocaine abuse (HCC) 10/28/2017 Coronary artery disease moderate stenosis of LAD and mild plaque in other vessels Homeless 06/19/2019 Hyperlipidemia Hypertension Tobacco dependence 04/29/2020 Past Surgical History: Procedure Laterality Date BACK SURGERY left arm leg sx right and left blood clots SHOULDER SURGERY Family History Problem Relation Age of Onset Heart disease Father Heart attack Father Heart attack Maternal Uncle Heart disease Maternal Uncle Social History Tobacco Use Smoking status: Current Every Day Smoker Packs/day: 1.50 Years: 45.00 Pack years: 67.50 Types: Cigarettes Last attempt to quit: 06/24/2020 Years since quittin.7 Smokeless tobacco: Never Used Vaping Use Vaping Use: Never used Substance Use Topics Alcohol use: Not Currently Drug use: Not Currently Types: Cocaine Comment: Pt states that he has been clean for 8 months Patient's Medications New Prescriptions No medications on file Previous Medications ASPIRIN 81 MG EC TABLET Take 1 (one) tablet (81 mg total) by mouth daily . LISINOPRIL (PRINIVIL,ZESTRIL) 30 MG TABLET Take 1 (one) tablet (30 mg total) by mouth daily . MULTIVITAMIN (MULTIVITAMIN) PER TABLET Take 1 tablet by mouth daily . Modified Medications No medications on file Discontinued Medications ALBUTEROL 90 MCG/ACTUATION INHALER ATORVASTATIN (LIPITOR) 20 MG TABLET Take 1 (one) tablet (20 mg total) by mouth daily . LORATADINE (CLARITIN) 10 MG TABLET Take 1 (one) tablet (10 mg total) by mouth daily Start: 06/27/19. Allergies Allergen Reactions Iodides Patient could not recall the name of contrast Review of Systems Constitutional: Negative for malaise/fatigue. Cardiovascular: Positive for chest pain and dyspnea on exertion. Negative for leg swelling and palpitations. Sharp atypical. Stable Musculoskeletal: Positive for joint pain. Neurological: Positive for dizziness. Objective: Physical Exam Vitals and nursing note reviewed. Constitutional: General: He is not in acute distress. Appearance: He is well-developed. He is not diaphoretic. Comments: No acute distress HENT: Head: Normocephalic. Eyes: General: No scleral icterus. Comments: Pupils equal. Neck: Vascular: No JVD. Cardiovascular: Rate and Rhythm: Regular rhythm. Pulses: Radial pulses are 2+ on the right side and 2+ on the left side. Heart sounds: S1 normal and S2 normal. No murmur heard. No gallop. No S3 or S4 sounds. Comments: Feet warm bilateral. Pulmonary: Effort: No respiratory distress. Breath sounds: Normal breath sounds. No stridor. No wheezing or rales. Abdominal: General: There is no distension. Palpations: Abdomen is soft. Tenderness: There is no abdominal tenderness. There is no guarding. Musculoskeletal: General: No tenderness or edema. Skin: General: Skin is warm and dry. Neurological: Mental Status: He is alert and oriented to person, place, and time. Psychiatric: Mood and Affect: Mood and affect normal. Vitals: Vitals: 04/07/21 0841 BP: 126/86 BP Location: Left arm Patient Position: Sitting BP Cuff Size: Adult Pulse: 74 SpO2: 96% Weight: 103 kg (227 lb) Height: 6' Body mass index is 30.79 kg/m . No orders of the defined types were placed in this encounter. Follow Up Ordered: Return in about 1 year (around 04/07/2022). Jeremy Segovia MD * Tia William MA - 04/07/2021 8:50 AM EST Review of Systems Constitutional: Negative for malaise/fatigue. Cardiovascular: Positive for chest pain and dyspnea on exertion. Negative for leg swelling and palpitations. Neurological: Positive for dizziness. documented in this [id number] History of Present illness Narrative* Mariela Morgan MD - 03/17/2021 2:37 PM EDT [facility] [address] [facility] [address] [facility] [id number] Maryse Mak is a 66 y.o. male being seen today, 03/17/21, Chief Complaint Patient presents with Right Hip - Follow-up, Pain [chief complaint] right hip pain HPI Dictation: Is DJD of his right hip he had intra-articular injection which helped for 2 or 3 days continues to be severely symptomatic should be noted he has uncontrolled hypertension for that reason I will not recommend an NSAID although I did recommend physical therapy and tramadol for pain control will need a total hip placement if he continues to fail conservative treatment [PE] Assessment and Plan Dictation: [AP] debility passive range of the involved right hip with severe anterior thigh and groin pain plan as noted I have reviewed all relevant histories, medications, allergies, and problem list items with Maryse Smith during this visit. Review of Systems Constitutional: Negative for chills and fever. HENT: Negative for congestion. Respiratory: Negative for shortness of breath. Cardiovascular: Negative for chest pain. Gastrointestinal: Negative for diarrhea, nausea and vomiting. Neurological: Negative for headaches. Psychiatric/Behavioral: Negative for behavioral problems. BP (!) 162/99 Pulse 75 Ht 6' Wt 99.8 kg (220 lb) BMI 29.84 kg/m Imaging: No results found. 1. Arthritis of hip Return in about 4 weeks (around 04/14/2021). Mariela Morgan MD documented in this [id number] Miscellaneous Notes* Assessment & Plan Note - Gail Garduno CNP - 09/30/2020 1:12 PM EDT Associated Problem(s): Hyperlipidemia Fasting lab work has been ordered. It is important to continue to increase your daily activity as you're able to tolerate, to eat a healthy diet low in fried and fatty foods and to continue to increase vegetables, fruits, whole grainsand lean protein. * Assessment & Plan Note - Gail Garduno CNP - 09/30/2020 1:11 PM EDT Associated Problem(s): KP (acute kidney injury) (HCC) Lab work has been ordered. Stay well hydrated and avoid ibuprofen, NSAIDS. * Assessment & Plan Note - Gail Garduno CNP - 09/30/2020 1:09 PM EDT Associated Problem(s): HTN (hypertension) Chronic. Stable. Continue current medications Continue to increase activity daily as tolerated Eat a diet high in vegetables, fruits, whole grains and lean proteins. Limit salt in your diet. Avoid fried, fatty and processed foods. documented in this [id number] Instructions* Patient Instructions* Gail Garduno CNP - 09/30/2020 10:19 AM EDT I have ordered blood work for you to have completed. This blood work will need to be completed while fasting.This means nothing to eat or drink for 8 hours prior to having it drawn. You can however, drink water and take medications as ordered during this time. -Blood tests can be obtained at your earliest convenienceat [facility] ([address] [place] [address]) or at the Medical Office Building next to [facility] on [facility]. The orders are on the computer and no paper requisitions are required. If you prefer to have your blood work drawn at a non [facility] lab, please request a lab order form to be printed for you to take with you. Once labs are completed please allow a few days for us to receive the results, review them, and letyou know what steps, if any, are needed next. I will review your labs via [facility] or the office will call with your results. If you haven't heard from us within 3 or 4 days please call to inquire. -If labs were ordered to be done PRIOR to your next visit we will discuss the results at the time of your office visit. documented in this [id number] History of Present illness Narrative* Gail Garduno CNP - 09/30/2020 9:00 AM EDT Patient: Maryse Mak : 1955 Date: 09/30/20 This 65 y.o. male presents for Establish Care, Throat (Did testing through one [facility] he thinks), and Cough (starte 3 months ago) Subjective Maryse is a 65 y.o. male who presents to [facility] after moving back to town from [place]. 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 Shoulder impingement CAD (coronary artery disease) HTN (hypertension) Hyperlipidemia Complete tear of left rotator cuff Ulnar neuropathy at elbow Carpal tunnel syndrome on left Neck pain Left elbow pain Tobacco Abuse Cervical arthritis Cocaine use disorder, moderate, dependence (HCC) Severe episode of recurrent major depressive disorder (HCC) Mood disorder (HCC) Psychoactive substance-induced mood disorder (HCC) Pure hypercholesterolemia Spondylisthesis KP (acute kidney injury) (HCC) History of Present Illness: Currently living locally with son and [id number] States had completed a 48 day teen challenge in JunJuly 2020 and has not used alcohol or drugs.[facility] has stopped smoking. Denies problems with mood, stating everyone just wants to put me on medications. 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 Presents to [facility] and 'wants something done about my throat' Most troubling symptom currently is sore throat / dysphagia / hoarseness. Dysphagia is described asdiscomfort in the back of his throat. Denies choking, globus sensation, heartburn. Reports 3 month history of hoarse voice and ST. States he is a 'talker' and voice change is very distressing to him. States has trouble swallowing due to soreness, has not changed diet or typed of foods eaten. Denies weight loss or fevers. -- Reports had been receiving care at [facility] in [place]. Was seeing Dr. Alarcon at [facility] prior to that time with last office visit with Dr. Alarcon 04/2020. -- Reports recent CT scan in [place] at [facility]. Was treated for pneumonia in Apr 2020 and states that has resolved. Reports he quit smoking ~ 4 months ago. History of 1 - 1/2 ppd for ~ 50 years. States was given an inhaler in August that he uses 'occasionally'. [facility] was given for COPD, stateshe has not been diagnosed with COPD though does report chronic cough for years. Will order PFT / consider referral to pulmonology Reports had a CT chest 09/17/20 at [facility] in [place]. Results:1. Bronchial wall thickening suggestive of bronchitis. 2. Streaky scarring/discoid atelectasis in the bilateral lower lung bonner. 3. Subcentimeter nodular opacities measuring up to 5 mm. Acuity: Incidental Finding: Solid: <6 mm (solitary or multiple) Routing Code: N/A Recommendation: No imaging follow-up is recommended Time Frame: N/A Comments: If there are risk factors for lung malignancy, a follow-up chest CT exam could be obtained in 12 months Hypertension Onset: chronic Self monitoring: no Average blood pressure: n/a Symptoms: denies chest pain, sob, palpitations, headaches, edema Treatment: lisinopril 30 mg daily Effectiveness: good Adherence: takes medicines as prescribed Adverse medication effects: Tolerates well, denies side effects Lab: ordered at today's appointment Tobacco use: former - ~ 75 pack year history. ----- Hyperlipidemia Onset: chronic, stable Treatment: Atorvastatin 20 Effectiveness: well controlled Adherence: takes as prescribed Medication adverse effects: tolerates well, denies side effects Lifestyle modifications: eats at home mostly. -------- KP: Was seen in the ED for KP 08/08/20 Hydrochlorothiazide stopped at that time and hydralazine added. Lab work ordered today --- Paresthesias: Legs / bilat feet Burning and itching.Denies drug use. States gabapentin helped in past but does not use currently due to history of drug use Requests referral to pain specialist Chronic low back pain States has had 10 surgeries on his back - states has 'plates in vertebra' States history of cocaine and alcohol use so avoids any narcotics States pain can be 7/ 10. Not using anything for pain currently. Denies pain during office visit. Is currently on disability due to back pain and leg pain. Requests referral to pain specialist -------- Health maintenance: PSA:due - Maryse declines at this time. Denies concerns and states he does not want testing. Vaccines: Pneumococcal: due : patient declined Covid- 19: - due - patient declines to get vaccine Shingles vaccine: due - patient declines HIV and hep C screens: patient states these have been completed and are negative. Unsure of dates. Colon cancer screen: due: colonoscopy / referral to GI placed today. Past Medical/Surgical History: Past Medical History: Diagnosis Date Alcohol abuse 06/19/2019 Arthritis Chronic back pain Clotting disorder (HCC) DVT Cocaine abuse (HCC) 10/28/2017 Coronary artery disease moderate stenosis of LAD and mild plaque in other vessels Homeless 06/19/2019 Hyperlipidemia Hypertension Tobacco Dependence 04/29/2020 Past Surgical History: Procedure Laterality Date BACK SURGERY left arm leg sx right and left blood clots SHOULDER SURGERY Family History: Family History Problem Relation Age of Onset Heart disease Father Heart attack Father Heart attack Maternal Uncle Heart disease Maternal Uncle Social History: Social History Socioeconomic History Marital status: Single Spouse name: Not on file Number of children: Not on file Years of education: Not on file Highest education level: Not on file Occupational History Not on file Tobacco Use Smoking status: Former Smoker Packs/day: 1.50 Years: 45.00 Pack years: 67.50 Types: Cigarettes Quit date: 06/24/2020 Years since quittin.2 Smokeless tobacco: Never Used Vaping Use Vaping Use: Never used Substance and Sexual Activity Alcohol use: Not Currently Drug use: Not Currently Types: Cocaine Comment: Pt states that he has been clean for 8 months Sexual activity: Not Currently control/protection: None Other Topics Concern Not on file Social History Narrative Not on file Social Determinants of Health Financial Resource Strain: Difficulty of Paying Living Expenses: Food Insecurity: Worried About Running Out of Food in the Last Year: Ran Out of Food in the Last Year: Transportation Needs: Lack of Transportation (Medical): Lack of Transportation (Non-Medical): Physical Activity: Days of Exercise per Week: Minutes of Exercise per Session: Stress: Feeling of Stress : Social Connections: Frequency of Communication with Friends and Family: Frequency of Social Gatherings with Friends and Family: Attends [employer] Services: Active Member of Clubs or Organizations: Attends Club or Organization Meetings: Marital Status: Allergies: Allergies Allergen Reactions Iodides Patient could not recall the name of contrast Medications: Current Outpatient Medications Medication Sig Dispense Refill albuterol 90 mcg/actuation inhaler aspirin 81 MG EC tablet Take 1 (one) tablet (81 mg total) by mouth daily . 30 tablet 3 atorvastatin (LIPITOR) 20 MG tablet Take 1 (one) tablet (20 mg total) by mouth daily . 30 tablet 3 lisinopriL (PRINIVIL,ZESTRIL) 30 MG tablet multivitamin (multivitamin) per tablet Take 1 tablet by mouth daily . loratadine (CLARITIN) 10 mg tablet Take 1 (one) tablet (10 mg total) by mouth daily Start: 06/27/19. 30 tablet 0 No current facility-administered medications for this visit. Medications Discontinued During This Encounter Medication Reason amoxicillin-clavulanate (AUGMENTIN) 875-125 mg per tablet Therapy completed doxycycline hyclate (VIBRA-TABS) 100 MG tablet Therapy completed lisinopriL-hydrochlorothiazide (PRINZIDE,ZESTORETIC) 20-12.5 mg per tablet Therapy completed topiramate (TOPAMAX) 50 MG tablet Therapy completed risperiDONE (RISPERDAL) 1 MG tablet Therapy completed mirtazapine (REMERON) 15 MG tablet Therapy completed folic acid (FOLVITE) 1 MG tablet Patient's Request Review of Systems: 10 organ systems were reviewed. All systems were negative, apart from what was mentioned in the HPIand the following. Review of Systems Constitutional: Negative for activity change, appetite change, chills, diaphoresis, fatigue, fever and unexpected weight change. HENT: Positive for sore throat, trouble swallowing and voice change. Negative for congestion, mouthsores, postnasal drip, rhinorrhea and sinus pain. Eyes: Negative for pain and redness. Respiratory: Negative for choking, chest tightness, shortness of breath and wheezing. Cardiovascular: Negative for chest pain, palpitations and leg swelling. Gastrointestinal: Negative for abdominal pain, blood in stool, constipation, diarrhea, nausea and vomiting. Endocrine: Negative for cold intolerance, heat intolerance, polydipsia, polyphagia and polyuria. Genitourinary: Negative for difficulty urinating and dysuria. Musculoskeletal: Positive for arthralgias, back pain and myalgias. Negative for neck pain and neck stiffness. Skin: Negative for rash. Neurological: Negative for dizziness, syncope, weakness, light-headedness and headaches. Hematological: Negative for adenopathy. Does not bruise/bleed easily. Psychiatric/Behavioral: Negative for dysphoric mood, sleep disturbance and suicidal ideas. The patient is not nervous/anxious. Objective Physical Exam: Vital Signs: BP 124/74 (BP Location: Right arm, Patient Position: Sitting, BP Cuff Size: Adult) Pulse 63 Temp 97.8 F (36.6 C) (Temporal) Resp 16 Ht 6' Wt 100.2 kg (220 lb 12.8 oz) SpO2 96% BMI 29.95kg/m Physical Exam Vitals and nursing note reviewed. Constitutional: General: He is not in acute distress. Appearance: Normal appearance. He is well-developed. He is not diaphoretic. HENT: Head: Normocephalic and atraumatic. Right Ear: Tympanic membrane, ear canal and external ear normal. Left Ear: Tympanic membrane, ear canal and external ear normal. Nose: Nose normal. Mouth/Throat: Mouth: Mucous membranes are moist. Pharynx: Oropharynx is clear. No oropharyngeal exudate. Eyes: General: No scleral icterus. Right eye: No discharge. Left eye: No discharge. Conjunctiva/sclera: Conjunctivae normal. Pupils: Pupils are equal, round, and reactive to light. Neck: Thyroid: No thyromegaly. Trachea: No tracheal deviation. Cardiovascular: Rate and Rhythm: Normal rate and regular rhythm. Heart sounds: Normal heart sounds. No murmur heard. No friction rub. No gallop. Pulmonary: Effort: Pulmonary effort is normal. No respiratory distress. Breath sounds: Normal breath sounds. No wheezing or rales. Chest: Chest wall: No tenderness. Abdominal: General: Bowel sounds are normal. There is no distension. Palpations: Abdomen is soft. There is no mass. Tenderness: There is no abdominal tenderness. There is no right CVA tenderness, left CVA tenderness, guarding or rebound. Musculoskeletal: General: No swelling, tenderness or deformity. Normal range of motion. Cervical back: Normal range of motion and neck supple. Right lower leg: No edema. Left lower leg: No edema. Comments: Gait normal Lymphadenopathy: Cervical: No cervical adenopathy. Skin: General: Skin is warm and dry. Capillary Refill: Capillary refill takes less than 2 seconds. Findings: No erythema or rash. Neurological: Mental Status: He is alert and oriented to person, place, and time. Cranial Nerves: No cranial nerve deficit. Motor: No weakness. Coordination: Coordination normal. Gait: Gait normal. Deep Tendon Reflexes: Reflexes are normal and symmetric. Reflexes normal. Psychiatric: Mood and Affect: Mood normal. Behavior: Behavior normal. Thought Content: Thought content normal. Judgment: Judgment normal. No results found for this or any previous visit (from the past 168 hour(s)). Assessment/Plan: HTN (hypertension) Chronic. Stable. Continue current medications Continue to increase activity daily as tolerated Eat a diet high in vegetables, fruits, whole grains and lean proteins. Limit salt in your diet. Avoid fried, fatty and processed foods. KP (acute kidney injury) (HCC) Lab work has been ordered. Stay well hydrated and avoid ibuprofen, NSAIDS. Hyperlipidemia Fasting lab work has been ordered. It is important to continue to increase your daily activity as you're able to tolerate, to eat a healthy diet low in fried and fatty foods and to continue to increase vegetables, fruits, whole grainsand lean protein. Problem List Items Addressed This Visit Cardiovascular and Mediastinum CAD (coronary artery disease) Relevant Medications lisinopriL (PRINIVIL,ZESTRIL) 30 MG tablet Other Relevant Orders Comprehensive Metabolic Panel HTN (hypertension) - Primary Chronic. Stable. Continue current medications Continue to increase activity daily as tolerated Eat a diet high in vegetables, fruits, whole grains and lean proteins. Limit salt in your diet. Avoid fried, fatty and processed foods. Relevant Medications lisinopriL (PRINIVIL,ZESTRIL) 30 MG tablet Other Relevant Orders Comprehensive Metabolic Panel Genitourinary KP (acute kidney injury) (HCC) Lab work has been ordered. Stay well hydrated and avoid ibuprofen, NSAIDS. Other Hyperlipidemia Fasting lab work has been ordered. It is important to continue to increase your daily activity as you're able to tolerate, to eat a healthy diet low in fried and fatty foods and to continue to increase vegetables, fruits, whole grainsand lean protein. Relevant Orders Comprehensive Metabolic Panel Lipid Panel Other Visit Diagnoses Dysphagia, unspecified type Relevant Orders Ambulatory referral to ENT Ambulatory referral to General Surgery TSH with Reflex Free T4 Hoarseness Relevant Orders Ambulatory referral to ENT Ambulatory referral to General Surgery TSH with Reflex Free T4 Pharyngitis, unspecified etiology Relevant Medications albuterol 90 mcg/actuation inhaler Other Relevant Orders Ambulatory referral to ENT Ambulatory referral to General Surgery TSH with Reflex Free T4 Encounter for screening colonoscopy Relevant Orders Ambulatory referral to General Surgery Screening for diabetes mellitus Paresthesia of both feet Relevant Orders CBC and Differential Ambulatory referral to Pain Medicine Back pain, unspecified back location, unspecified back pain laterality, unspecified chronicity Relevant Orders Ambulatory referral to Pain Medicine History of chronic cough Relevant Orders Complete PFT with pre - post bronchodilator History of tobacco abuse Relevant Orders Complete PFT with pre - post bronchodilator Return in about 6 months (around 04/02/2021) for med recheck / chronic care. Patient Instructions I have ordered blood work for you to have completed. This blood work will need to be completed while fasting.This means nothing to eat or drink for 8 hours prior to having it drawn. You can however, drink water and take medications as ordered during this time. -[facility] earliest [facility] ([address]) or at the Medical Office Building next to [facility] on [address] The orders are on the computer and no paper requisitions are required. If you prefer to have your blood work drawn at a non [facility] lab, please request a lab order form to be printed for you to take with you. Once labs are completed please allow a few days for us to receive the results, review them, and letyou know what steps, if any, are needed next. I will review your labs via [facility] or the office will call with your results. If you haven't heard from us within 3 or 4 days please call to inquire. -If labs were ordered to be done PRIOR to your next visit we will discuss the results at the time of your office visit. For any new medications prescribed today, patient was educated about indications for the medication, how to take the medication and potential side effects of the medications. Goals None Gail Garduno, JAYLEN Depression Screening 06/19/2019 09/30/2020 Little interest or pleasure in doing things 3 0 Feeling down, depressed, or hopeless 3 0 PHQ-2 Total Score 6 0 Trouble falling or staying asleep, or sleeping too much 3 1 Feeling tired or having little energy 3 1 Poor appetite or overeating 3 1 Feeling bad about yourself - or that you are a failure or have let yourself or your family down 3 0 Trouble concentrating on things, such as reading the newspaper or watching television 1 1 Moving or speaking so slowly that other people could have noticed. Or the opposite - being so fidgety or restless that you have been moving around a lot more than usual 1 0 Thoughts that you would be better off , or of hurting yourself in some way 1 0 PHQ-9 Total Score 21 4 If you checked off any problems, how difficult have these problems made it for you to do your work,take care of things at home, or get along with other people? - Not difficult at all documented in this [id number] ID: [id number] Author: Alexandria Lacey Ct Service: ? Author Type: ? Type: Progress Notes Filed: 09/16/2020 1:17 PM Note Text: Radiology Service Progress Note PATIENT NAME: Maryse Mak DATE OF SERVICE: September 16, 2020 TIME: 1:17 PM PATIENT IDENTITY VERIFICATION COMPLETED USING TWO (2) IDENTIFIERS: Name and Date of confirmed by patient verbally. FALL SCREENING: Has the patient had 2 falls in the last year or 1 fall with injury or currently using an Ambulatory Assistive Device (Walker, Cane, Wheelchair, Crutches, etc.)? No PATIENT GENDER DATA: Male PATIENT RELEVANT IMPLANT DATA REVIEWED: Not Applicable RADIOLOGY DEPARTMENT: CT; Exam(s) Completed: Chest PERIPHERAL IV DATA: Not applicable SIGNED BY: Alexandria Lacye Ct September 16, 2020 [facility] Appointment Date:07/21/2022 01:00:00 PM Scheduled Provider:Paulette CARBALLO CNP Location:[facility] Appointment Type: Open Future Scheduled Tests Laboratory* Basic Metabolic Panel 07/29/21 * Lipid Panel 07/29/21 [facility] Evaluation + Plan note Future Appointments Appointment Date:07/13/2022 11:00:00 AM Scheduled Provider:Paulette CARBALLO CNP Location:[facility] Appointment Type: Open Appointment Date:07/21/2022 01:00:00 PM Scheduled Provider:Paulette CARBALLO CNP Location:[facility] Appointment Type: Open Future Scheduled Tests Laboratory* Basic Metabolic Panel 07/29/21 * Lipid Panel 07/29/21 [facility] Evaluation + Plan note Future Appointments Appointment Date:01/11/2023 11:00:00 AM Scheduled Provider:Paulette CARBALLO CNP Location:[facility] Appointment Type:[facility] Scheduled Tests Laboratory* Basic Metabolic Panel 07/29/21 * Lipid Panel 07/29/21 [facility] evaluation + Plan note Future Appointments Appointment Date:03/03/2023 02:00:00 PM Scheduled Provider: Location:[facility] Appointment Type:[facility] Wellness Subsequent Appointment Date:07/14/2023 10:40:00 AM Scheduled Provider:Paulette CARBALLO CNP Location:[facility] Appointment Type:[facility] evaluation + Plan note Future Appointments Appointment Date:07/14/2023 10:40:00 AM Scheduled Provider:Paulette CARBALLO CNP Location:[facility] Appointment Type:[facility] evaluation + Plan note Future Appointments Appointment Date:10/28/2023 02:20:00 PM Scheduled Provider:Paulette CARBALLO CNP Location:[facility] Appointment Type:[facility] evaluation + Plan note Future Appointments Appointment Date:11/25/2023 03:00:00 PM Scheduled Provider:Paulette CARBALLO CNP Location:[facility] Appointment Type:[facility] evaluation + Plan note Future Appointments Appointment Date:12/09/2023 03:00:00 PM Scheduled Provider:Paulette CARBALLO CNP Location:[facility] Appointment Type:[facility] evaluation + Plan note Future Appointments Appointment Date:01/25/2025 02:20:00 PM Scheduled Provider:Wendy Walker Location:[facility] Appointment Type:FM Open [facility] Evaluation note* Diagnosis Essential hypertension- Primary Unspecified essential hypertension Coronary artery disease due to lipid rich plaque Hyperlipidemia, unspecified hyperlipidemia type Dysphagia, unspecified type Hoarseness Dysphonia Pharyngitis, unspecified etiology Encounter for screening colonoscopy Screening for diabetes mellitus Paresthesia of both feet Back pain, unspecified back location, unspecified back pain laterality, unspecified chronicity History of chronic cough History of tobacco abuse KP (acute kidney [facility]) (HCC) [facility] Diagnosis Pain- Primary Generalized pain [facility] Diagnosis Arthritis of hip- Primary Unspecified arthropathy, pelvic region and thigh [facility] Diagnosis Arthritis of hip- Primary Unspecified arthropathy, pelvic region and thigh Primary osteoarthritis of right hip [facility] Diagnosis Primary osteoarthritis of right hip- Primary [facility]* Diagnosis Coronary artery disease due to lipid rich plaque [facility]* Diagnosis Chest pain, unspecified type- Primary documented in this encounter [facility] Work Phone: evaluation note* Diagnosis Angina, class III (HCC)- Primary Other and unspecified angina pectoris Coronary artery disease, unspecified vessel or lesion type, unspecified whether angina present, unspecified whether [place] or transplanted heart Angina, class III (HCC) Other and unspecified angina pectoris [facility]* Diagnosis Chest discomfort- Primary Other chest pain Coronary artery disease due to lipid rich plaque Angina, class III (HCC) Other and unspecified angina pectoris Coronary artery disease, unspecified vessel or lesion type, unspecified whether angina present, unspecified whether [place] or transplanted heart CAD (coronary artery disease) Coronary atherosclerosis of unspecified type of vessel, [place] or graft Angina, class III (HCC) Other and unspecified angina pectoris Coronary artery disease, unspecified vessel or lesion type, unspecified whether angina present, unspecified whether [place] or transplanted heart [facility] Diagnosis 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)- Primary [facility]* Diagnosis 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)- Primary PAD (peripheral artery disease) (HCC) Unspecified peripheral vascular disease [facility]* Diagnosis 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) PAD (peripheral artery disease) (HCC) Unspecified peripheral vascular disease [facility]* Diagnosis S/P CABG (coronary artery bypass graft)- Primary Postsurgical aortocoronary bypass status [facility]* Diagnosis S/P CABG (coronary artery bypass graft)- Primary Postsurgical aortocoronary bypass status [facility]* Diagnosis S/P CABG (coronary artery bypass graft)- Primary Postsurgical aortocoronary bypass status [facility]* Diagnosis S/P CABG x 2- Primary Postsurgical aortocoronary bypass status [facility]* Diagnosis S/P CABG x 2- Primary Postsurgical aortocoronary bypass status [facility]* Diagnosis S/P CABG x 2 Postsurgical aortocoronary bypass status [facility]* Diagnosis Tobacco abuse- Primary Tobacco use disorder Atrial fibrillation, unspecified type (HCC) Hypervolemia, unspecified hypervolemia type Benign essential HTN Hyperlipidemia, unspecified hyperlipidemia type Coronary artery disease involving [place] coronary artery of [place] heart, unspecified whether angina present S/P CABG (coronary artery bypass graft) Postsurgical aortocoronary bypass status [facility]* Diagnosis Tobacco abuse- Primary Tobacco use disorder Atrial fibrillation, unspecified type (HCC) Hypervolemia, unspecified hypervolemia type Benign essential HTN Hyperlipidemia, unspecified hyperlipidemia type Coronary artery disease involving [place] coronary artery of [place] heart, unspecified whether angina present S/P CABG (coronary artery bypass graft) Postsurgical aortocoronary bypass status [facility]* Diagnosis Tobacco abuse- Primary Tobacco use disorder Atrial fibrillation, unspecified type (HCC) Hypervolemia, unspecified hypervolemia type Benign essential HTN Hyperlipidemia, unspecified hyperlipidemia type Coronary artery disease involving [place] coronary artery of [place] heart, unspecified whether angina present S/P CABG (coronary artery bypass graft) Postsurgical aortocoronary bypass status [facility]* Diagnosis S/P CABG (coronary artery bypass graft)- Primary Postsurgical aortocoronary bypass status [facility]* Diagnosis S/P CABG (coronary artery bypass graft)- Primary Postsurgical aortocoronary bypass status [facility] Includes: Assessments for all patient encounters No [facility] Work [facility]: [facility]* Diagnosis Musculoskeletal chest pain Other chest pain Exertional dyspnea Other dyspnea and respiratory abnormality Essential hypertension Unspecified essential hypertension Pure hypercholesterolemia documented in this encounter [facility] Work Phone: evaluation note* Diagnosis Muscle spasms of neck- Primary [facility]* Diagnosis Chronic cough- Primary Cough [facility]* Diagnosis Closed fracture of sternum, unspecified portion of sternum, initial encounter- Primary [facility]* Diagnosis Tobacco abuse- Primary Tobacco use disorder Chronic cough Cough [facility]* Diagnosis Fall, initial encounter- Primary Rib injury Sprain of ribs Injury of right knee, [facility] encounter [facility] Primary osteoarthritis of right hip- Primary [facility]* Diagnosis Primary osteoarthritis of right hip- Primary [facility]* Diagnosis Pre-procedure lab exam- Primary Pre-procedural laboratory examination 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 Abuse of other non-psychoactive substances Abnormal finding of blood chemistry, unspecified [facility]* Diagnosis Closed fracture of sternum with nonunion, unspecified portion of sternum, subsequent encounter- Primary [facility]* Diagnosis Pre-procedure lab exam- Primary Pre-procedural laboratory examination [facility]* Diagnosis Primary osteoarthritis of right hip- Primary [facility]* Diagnosis Closed fracture of sternum with nonunion, unspecified portion of sternum, subsequent encounter- Primary Closed fracture of sternum with nonunion, unspecified portion of sternum, subsequent encounter [facility]* Diagnosis Sternal wound dehiscence, subsequent encounter- Primary [facility]* Diagnosis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 disease due to lipid rich plaque S/P CABG x 2- Primary Postsurgical aortocoronary bypass status S/P CABG x 2 Postsurgical aortocoronary bypass status Acute respiratory failure with hypoxia (HCC) S/P CABG x 2 Postsurgical aortocoronary bypass status Postoperative wound dehiscence, initial encounter Chest pain, unspecified type Coronary artery disease due to lipid rich plaque Disruption of closure of sternum or sternotomy, subsequent encounter- Primary Fluid collection at surgical site, subsequent encounter- Primary Fluid collection at surgical site, subsequent encounter- Primary Fluid collection at surgical site, subsequent encounter Disruption of closure of sternum or sternotomy, subsequent encounter- Primary Coronary artery disease due to lipid rich plaque- Primary Cellulitis of right hand- Primary Cellulitis of right hand Leukocytosis, unspecified type Foreign body in eye Foreign body in unspecified site on external eye Fluid collection at surgical site, subsequent encounter Primary osteoarthritis of right hip- Primary [facility] Diagnosis Coronary artery disease, angina presence unspecified, unspecified vessel or lesion type, unspecified whether [place] or transplanted heart Coronary artery disease due to lipid rich plaque Essential hypertension Unspecified essential hypertension Hyperlipidemia, unspecified hyperlipidemia type Hyperlipidemia, unspecified hyperlipidemia type Essential hypertension Unspecified essential hypertension Coronary artery disease due to lipid rich plaque Tobacco abuse Tobacco use disorder Cocaine abuse (HCC) Nondependent cocaine abuse, unspecified Chest pain, unspecified type- Primary Coronary artery disease due to lipid rich plaque Essential hypertension Unspecified essential hypertension Hyperlipidemia, unspecified hyperlipidemia type Tobacco abuse Tobacco use disorder Cocaine abuse (HCC) Nondependent cocaine abuse, unspecified Current mild episode of major depressive disorder, unspecified whether recurrent (HCC) Mood disorder Unspecified episodic mood disorder Essential hypertension- Primary Unspecified essential hypertension Coronary artery disease due to lipid rich plaque Hyperlipidemia, unspecified hyperlipidemia type Dysphagia, unspecified type Hoarseness Dysphonia Pharyngitis, unspecified etiology Encounter for screening colonoscopy Screening for diabetes mellitus Paresthesia of both feet Back pain, unspecified back location, unspecified back pain laterality, unspecified chronicity History of chronic cough History of tobacco abuse KP (acute kidney injury) Coronary artery disease due to lipid rich plaque Chest discomfort- Primary Other chest pain Coronary artery disease due to lipid rich plaque S/P CABG x 2- Primary Postsurgical aortocoronary bypass status S/P CABG x 2 Postsurgical aortocoronary bypass status Acute respiratory failure with hypoxia (HCC) S/P CABG x 2 Postsurgical aortocoronary bypass status Postoperative wound dehiscence, initial encounter Chest pain, unspecified type Coronary artery disease due to lipid rich plaque Disruption of closure of sternum or sternotomy, subsequent encounter- Primary Fluid collection at surgical site, subsequent encounter- Primary Fluid collection at surgical site, subsequent encounter- Primary Fluid collection at surgical site, subsequent encounter Disruption of closure of sternum or sternotomy, subsequent encounter- Primary Coronary artery disease due to lipid rich plaque- Primary Cellulitis of right hand- Primary Cellulitis of right hand Leukocytosis, unspecified type Foreign body in eye Foreign body in unspecified site on external eye Fluid collection at surgical site, subsequent encounter Arthritis of right hip- Primary Primary osteoarthritis of right hip documented in this encounter [facility] note* Diagnosis Coronary artery disease, angina presence unspecified, unspecified vessel or lesion type, unspecified whether [place] or transplanted heart Coronary artery disease due to lipid rich plaque Essential hypertension Unspecified essential hypertension Hyperlipidemia, unspecified hyperlipidemia type Hyperlipidemia, unspecified hyperlipidemia type Essential hypertension Unspecified essential hypertension Coronary artery disease due to lipid rich plaque Tobacco abuse Tobacco use disorder Cocaine abuse (HCC) Nondependent cocaine abuse, unspecified Chest pain, unspecified type- Primary Coronary artery disease due to lipid rich plaque Essential hypertension Unspecified essential hypertension Hyperlipidemia, unspecified hyperlipidemia type Tobacco abuse Tobacco use disorder Cocaine abuse (HCC) Nondependent cocaine abuse, unspecified Current mild episode of major depressive disorder, unspecified whether recurrent (HCC) Mood disorder Unspecified episodic mood disorder Essential hypertension- Primary Unspecified essential hypertension Coronary artery disease due to lipid rich plaque Hyperlipidemia, unspecified hyperlipidemia type Dysphagia, unspecified type Hoarseness Dysphonia Pharyngitis, unspecified etiology Encounter for screening colonoscopy Screening for diabetes mellitus Paresthesia of both feet Back pain, unspecified back location, unspecified back pain laterality, unspecified chronicity History of chronic cough History of tobacco abuse KP (acute kidney injury) Coronary artery disease due to lipid rich plaque Chest discomfort- Primary Other chest pain Coronary artery disease due to lipid rich plaque S/P CABG x 2- Primary Postsurgical aortocoronary bypass status S/P CABG x 2 Postsurgical aortocoronary bypass status Acute respiratory failure with hypoxia (HCC) S/P CABG x 2 Postsurgical aortocoronary bypass status Postoperative wound dehiscence, initial encounter Chest pain, unspecified type Coronary artery disease due to lipid rich plaque Disruption of closure of sternum or sternotomy, subsequent encounter- Primary Fluid collection at surgical site, subsequent encounter- Primary Fluid collection at surgical site, subsequent encounter- Primary Fluid collection at surgical site, subsequent encounter Disruption of closure of sternum or sternotomy, subsequent encounter- Primary Coronary artery disease due to lipid rich plaque- Primary Cellulitis of right hand- Primary Cellulitis of right hand Leukocytosis, unspecified type Foreign body in eye Foreign body in unspecified site on external eye Fluid collection at surgical site, subsequent encounter Primary osteoarthritis of right hip- Primary documented in this encounter [facility] note* Diagnosis Coronary artery disease, angina presence unspecified, unspecified vessel or lesion type, unspecified whether [place] or transplanted heart Coronary artery disease due to lipid rich plaque Essential hypertension Unspecified essential hypertension Hyperlipidemia, unspecified hyperlipidemia type Hyperlipidemia, unspecified hyperlipidemia type Essential hypertension Unspecified essential hypertension Coronary artery disease due to lipid rich plaque Tobacco abuse Tobacco use disorder Cocaine abuse (HCC) Nondependent cocaine abuse, unspecified Chest pain, unspecified type- Primary Coronary artery disease due to lipid rich plaque Essential hypertension Unspecified essential hypertension Hyperlipidemia, unspecified hyperlipidemia type Tobacco abuse Tobacco use disorder Cocaine abuse (HCC) Nondependent cocaine abuse, unspecified Current mild episode of major depressive disorder, unspecified whether recurrent (HCC) Mood disorder Unspecified episodic mood disorder Essential hypertension- Primary Unspecified essential hypertension Coronary artery disease due to lipid rich plaque Hyperlipidemia, unspecified hyperlipidemia type Dysphagia, unspecified type Hoarseness Dysphonia Pharyngitis, unspecified etiology Encounter for screening colonoscopy Screening for diabetes mellitus Paresthesia of both feet Back pain, unspecified back location, unspecified back pain laterality, unspecified chronicity History of chronic cough History of tobacco abuse KP (acute kidney injury) Coronary artery disease due to lipid rich plaque Chest discomfort- Primary Other chest pain Coronary artery disease due to lipid rich plaque S/P CABG x 2- Primary Postsurgical aortocoronary bypass status S/P CABG x 2 Postsurgical aortocoronary bypass status Acute respiratory failure with hypoxia (HCC) S/P CABG x 2 Postsurgical aortocoronary bypass status Postoperative wound dehiscence, initial encounter Chest pain, unspecified type Coronary artery disease due to lipid rich plaque Disruption of closure of sternum or sternotomy, subsequent encounter- Primary Fluid collection at surgical site, subsequent encounter- Primary Fluid collection at surgical site, subsequent encounter- Primary Fluid collection at surgical site, subsequent encounter Disruption of closure of sternum or sternotomy, subsequent encounter- Primary Coronary artery disease due to lipid rich plaque- Primary Cellulitis of right hand- Primary Cellulitis of right hand Leukocytosis, unspecified type Foreign body in eye Foreign body in unspecified site on external eye Fluid collection at surgical site, subsequent encounter Arthritis of right hip- Primary [facility] Includes: Medical History in patient's chart No [facility] History [facility] Work Phone: History of Present illness Narrative History of Present Illness not supported for this document type No History of Present Illness [facility] Work Phone: Hospital course Narrative No data available for this section [facility] Hospital Discharge instructions No data available for this section [facility] Hospital Discharge instructions* Attachments The following attachments cannot be sent through Care Everywhere. * COPD: URI: General Info ([place]) [facility] Instructions not supported for this document type No Instructions [facility] Work Phone: Patient problem outcome Narrative Includes: Evaluations & Outcomes for active Goals No Outcomes [facility] Work Phone: Patient's home Plan of care note* Visit Details Visit Type -SN [facility] Discipline -Usp Problems Problem Start Date Status Goals Interventions Assess and Instruct Home Visit Disciplines: Usp 08/13/2022 Active 1 goal linked to scheduled/documented intervention 4 goal interventions scheduled/documented in this visit Medication Management Disciplines: Usp 08/13/2022 Active 1 goal linked to scheduled/documented intervention 1 goal intervention scheduled/documented in this visit Pain Management Disciplines: Usp 08/13/2022 Active 1 goal linked to scheduled/documented intervention 1 goal intervention scheduled/documented in this visit Goals Goal Associated Problem Outcome Goal Met? Visit Notes Home Care Plan Assess and Instruct Home Visit No Medications Medication Management No Pain Pain Management No Interventions Intervention Associated Problem/Goal Status Variance Visit Notes Falls Problem:Assess and Instruct Home Visit Goal:Home Care Plan Completed Clinician taught: patient 4-10 Patient IS at risk for falls (a score of 6 or greater is a predictor of future falls) and clinician instructed: proper footwear, improved lighting and remove clutter and throw rugs. Patient/caregiver was able to demonstrate 100% via teachback Safety Problem:Assess and Instruct Home Visit Goal:Home Care Plan Completed Assessed patient vulnerability and home safety risks: weakness/pain Equipment reviewed heart hugger Patient at risk for harm or abuse no Family members involved in safety plan for Level 2 or 3 n/a Discharge Planning Problem:Assess and Instruct Home Visit Goal:Home Care Plan Completed Home Visit DC Planning: Spoke with patient about DC planning. Assessed for limited ambulation related to weakness/pain, unsteady gait/poor balance and dyspnea at rest or with exertion DC will occur when: patient/caregiver can teach back medication manangement. Anticipate DC: On time Plan for Next Visit Problem:Assess and Instruct Home Visit Goal:Home Care Plan Completed Follow up education for next visit: medication manangement. Skilled intervention at next visit: medication manangement. Instruct Medication Management Problem:Medication Management Goal:Medications Completed Home Visit Med Education: Medication list reconciled. Medication profile and in-home medication list updated with appropriate changes. Discrepanices noted during home visit: none Instructed patient on dosing, purpose, and side effects. Medication education completed today on flonase medication(s). Patient/caregiver is able to teach back 100% of instruction. Assess Pain Characteristics and Current Pain Regimen and Instruct Methods of Pain Relief Problem:Pain Management Goal:Pain Completed [facility] [place] [facility] Discipline -Usp Problems Problem Start Date Status Goals Interventions Assess and Instruct Home Visit Disciplines: Usp 08/13/2022 Active 1 goal linked to scheduled/documented intervention 4 goal interventions scheduled/documented in this visit Medication Management Disciplines: Usp 08/13/2022 Active 1 goal linked to scheduled/documented intervention 1 goal intervention scheduled/documented in this visit Pain Management Disciplines: Usp 08/13/2022 Active 1 goal linked to scheduled/documented intervention 1 goal intervention scheduled/documented in this visit Goals Goal Associated Problem Outcome Goal Met? Visit Notes Home Care Plan Assess and Instruct Home Visit No Medications Medication Management No Pain Pain Management No Interventions Intervention Associated Problem/Goal Status Variance Visit Notes Falls Problem:Assess and Instruct Home Visit Goal:Home Care Plan Scheduled Safety Problem:Assess and Instruct Home Visit Goal:Home Care Plan Scheduled Discharge Planning Problem:Assess and Instruct Home Visit Goal:Home Care Plan Scheduled Plan for Next Visit Problem:Assess and Instruct Home Visit Goal:Home Care Plan Scheduled Instruct Medication Management Problem:Medication Management Goal:Medications Scheduled Assess Pain Characteristics and Current Pain Regimen and Instruct Methods of Pain Relief Problem:Pain Management Goal:Pain Scheduled [facility] Visit Details [facility] Resu mption of Care Discipline -Usp Problems Problem Start Date Status Goals Interventions Assess and Instruct Home Visit Disciplines: Usp 08/13/2022 Active 1 goal linked to scheduled/documented intervention 4 goal interventions scheduled/documented in this visit Medication Management Disciplines: Usp 08/13/2022 Active 1 goal linked to scheduled/documented intervention 1 goal intervention scheduled/documented in this visit Pain Management Disciplines: Usp 08/13/2022 Active 1 goal linked to scheduled/documented intervention 1 goal intervention scheduled/documented in this visit Wound Care and/or Skin Problems Disciplines: Usp 08/13/2022 Active - 1 problem intervention scheduled/documented in this visit Cardiac Disciplines: Usp 08/13/2022 Active 1 goal linked to scheduled/documented intervention 1 goal intervention scheduled/documented in this visit Goals Goal Associated Problem Outcome Goal Met? Visit Notes Home Care Plan Assess and Instruct Home Visit No Medications Medication Management No Pain Pain Management No Cardiac Function Cardiac No Interventions Intervention Associated Problem/Goal Status Variance Visit Notes Falls Problem:Assess and Instruct Home Visit Goal:Home Care Plan Completed Clinician taught: patient 4-10 Patient IS at risk for falls (a score of 6 or greater is a predictor of future falls) and clinician instructed: keep frequently used items in reach and emergency response system and/or keep phone on you Patient/caregiver was able to demonstrate 100% via teachback Safety Problem:Assess and Instruct Home Visit Goal:Home Care Plan Completed Assessed patient vulnerability and home safety risks: none Equipment reviewed heart hugger Patient at risk for harm or abuse no Family members involved in safety plan for Level 2 or 3 n/a Discharge Planning Problem:Assess and Instruct Home Visit Goal:Home Care Plan Completed Pt just got home yesterday after his 3rd sternal surgical intervention. Plan for Next Visit Problem:Assess and Instruct Home Visit Goal:Home Care Plan Completed CP assess, VS, monitor dressing/wound care, medication education Instruct Medication Management Problem:Medication Management Goal:Medications Completed Home Visit Med Education: Medication list reconciled. Medication profile and in-home medication list updated with appropriate changes. Discrepanices noted during home visit: none Instructed patient on dosing, purpose, and side effects. Medication education completed today on losartan medication(s). Patient/caregiver is able to teach back 100% of instruction. Assess Pain Characteristics and Current Pain Regimen and Instruct Methods of Pain Relief Problem:Pain Management Goal:Pain Completed Wound/Incision Problem:Wound Care and/or Skin Problems Completed Chest tube dressing is CDI. Pt is aware to remove it tomorrow. Pt has sternal incision covered with ABD and is aware to change it daily. Instruct Impaired Cardiac Function Problem:Cardiac Goal:Cardiac Function Completed Recognizing and managing signs and symptoms of hypertension reviewed with pt. [facility] Visit Details Visit Type -SN [facility] OASIS Resu mption of Care Discipline -Usp Problems Problem Start Date Status Goals Interventions Assess and Instruct Home Visit Disciplines: Usp 08/13/2022 Active 1 goal linked to scheduled/documented intervention 4 goal interventions scheduled/documented in this visit Medication Management Disciplines: Usp 08/13/2022 Active 1 goal linked to scheduled/documented intervention 1 goal intervention scheduled/documented in this visit Pain Management Disciplines: Usp 08/13/2022 Active 1 goal linked to scheduled/documented intervention 1 goal intervention scheduled/documented in this visit Wound Care and/or Skin Problems Disciplines: Usp 08/13/2022 Active - 1 problem intervention scheduled/documented in this visit Cardiac Disciplines: Usp 08/13/2022 Active 1 goal linked to scheduled/documented intervention 1 goal intervention scheduled/documented in this visit Goals Goal Associated Problem Outcome Goal Met? Visit Notes Home Care Plan Assess and Instruct Home Visit No Medications Medication Management No Pain Pain Management No Cardiac Function Cardiac No Interventions Intervention Associated Problem/Goal Status Variance Visit Notes Falls Problem:Assess and Instruct Home Visit Goal:Home Care Plan Completed Clinician taught: patient 4-10 Patient IS at risk for falls (a score of 6 or greater is a predictor of future falls) and clinician instructed: keep frequently used items in reach and emergency response system and/or keep phone on you Patient/caregiver was able to demonstrate 100% via teachback Safety Problem:Assess and Instruct Home Visit Goal:Home Care Plan Completed Assessed patient vulnerability and home safety risks: none Equipment reviewed heart hugger Patient at risk for harm or abuse no Family members involved in safety plan for Level 2 or 3 n/a Discharge Planning Problem:Assess and Instruct Home Visit Goal:Home Care Plan Completed Pt just got home yesterday after his 3rd sternal surgical intervention. Plan for Next Visit Problem:Assess and Instruct Home Visit Goal:Home Care Plan Completed CP assess, VS, monitor dressing/wound care, medication education Instruct Medication Management Problem:Medication Management Goal:Medications Completed Home Visit Med Education: Medication list reconciled. Medication profile and in-home medication list updated with appropriate changes. Discrepanices noted during home visit: none Instructed patient on dosing, purpose, and side effects. Medication education completed today on losartan medication(s). Patient/caregiver is able to teach back 100% of instruction. Assess Pain Characteristics and Current Pain Regimen and Instruct Methods of Pain Relief Problem:Pain Management Goal:Pain Completed Wound/Incision Problem:Wound Care and/or Skin Problems Completed Chest tube dressing is CDI. Pt is aware to remove it tomorrow. Pt has sternal incision covered with ABD and is aware to change it daily. Instruct Impaired Cardiac Function Problem:Cardiac Goal:Cardiac Function Completed Recognizing and managing signs and symptoms of hypertension reviewed with pt. [facility] Visit Details Visit Type -SN [facility] OASIS Resu mption of Care Discipline -Usp Problems Problem Start Date Status Goals Interventions Assess and Instruct Home Visit Disciplines: Usp 08/13/2022 Active 1 goal linked to scheduled/documented intervention 4 goal interventions scheduled/documented in this visit Medication Management Disciplines: Usp 08/13/2022 Active 1 goal linked to scheduled/documented intervention 1 goal intervention scheduled/documented in this visit Pain Management Disciplines: Usp 08/13/2022 Active 1 goal linked to scheduled/documented intervention 1 goal intervention scheduled/documented in this visit Wound Care and/or Skin Problems Disciplines: Usp 08/13/2022 Active - 1 problem intervention scheduled/documented in this visit Cardiac Disciplines: Usp 08/13/2022 Active 1 goal linked to scheduled/documented intervention 1 goal intervention scheduled/documented in this visit Goals Goal Associated Problem Outcome Goal Met? Visit Notes Home Care Plan Assess and Instruct Home Visit No Medications Medication Management No Pain Pain Management No Cardiac Function Cardiac No Interventions Intervention Associated Problem/Goal Status Variance Visit Notes Falls Problem:Assess and Instruct Home Visit Goal:Home Care Plan Completed Clinician taught: patient 4-10 Patient IS at risk for falls (a score of 6 or greater is a predictor of future falls) and clinician instructed: keep frequently used items in reach and emergency response system and/or keep phone on you Patient/caregiver was able to demonstrate 100% via teachback Safety Problem:Assess and Instruct Home Visit Goal:Home Care Plan Completed Assessed patient vulnerability and home safety risks: none Equipment reviewed heart hugger Patient at risk for harm or abuse no Family members involved in safety plan for Level 2 or 3 n/a Discharge Planning Problem:Assess and Instruct Home Visit Goal:Home Care Plan Completed Pt just got home yesterday after his 3rd sternal surgical intervention. Plan for Next Visit Problem:Assess and Instruct Home Visit Goal:Home Care Plan Completed CP assess, VS, monitor dressing/wound care, medication education Instruct Medication Management Problem:Medication Management Goal:Medications Completed Home Visit Med Education: Medication list reconciled. Medication profile and in-home medication list updated with appropriate changes. Discrepanices noted during home visit: none Instructed patient on dosing, purpose, and side effects. Medication education completed today on losartan medication(s). Patient/caregiver is able to teach back 100% of instruction. Assess Pain Characteristics and Current Pain Regimen and Instruct Methods of Pain Relief Problem:Pain Management Goal:Pain Completed Wound/Incision Problem:Wound Care and/or Skin Problems Completed Chest tube dressing is CDI. Pt is aware to remove it tomorrow. Pt has sternal incision covered with ABD and is aware to change it daily. Instruct Impaired Cardiac Function Problem:Cardiac Goal:Cardiac Function Completed Recognizing and managing signs and symptoms of hypertension reviewed with pt. [facility] Visit Details Visit Type -SN HH Routine Vi sit Discipline -Usp Problems Problem Start Date Status Goals Interventions Assess and Instruct Home Visit Disciplines: Usp 08/13/2022 Active 1 goal linked to scheduled/documented intervention 4 goal interventions scheduled/documented in this visit Medication Management Disciplines: Usp 08/13/2022 Active 1 goal linked to scheduled/documented intervention 1 goal intervention scheduled/documented in this visit Pain Management Disciplines: Usp 08/13/2022 Active 1 goal linked to scheduled/documented intervention 1 goal intervention scheduled/documented in this visit Wound Care and/or Skin Problems Disciplines: Usp 08/13/2022 Active - 1 problem intervention scheduled/documented in this visit Goals Goal Associated Problem Outcome Goal Met? Visit Notes Home Care Plan Assess and Instruct Home Visit No Medications Medication Management No Pain Pain Management No Interventions Intervention Associated Problem/Goal Status Variance Visit Notes Falls Problem:Assess and Instruct Home Visit Goal:Home Care Plan Completed Clinician taught: patient 4-10 Patient IS at risk for falls (a score of 6 or greater is a predictor of future falls) and clinician instructed: proper footwear, improved lighting and remove clutter and throw rugs. Patient/caregiver was able to demonstrate 100% via teachback Safety Problem:Assess and Instruct Home Visit Goal:Home Care Plan Completed Assessed patient vulnerability and home safety risks: weakness/pain Equipment reviewed heart hugger Patient at risk for harm or abuse no Family members involved in safety plan for Level 2 or 3 n/a Discharge Planning Problem:Assess and Instruct Home Visit Goal:Home Care Plan Completed Home Visit DC Planning: Spoke with patient about DC planning. Assessed for limited ambulation related to weakness/pain and unsteady gait/poor balance DC will occur when: patient/caregiver can teach back medication manangement Anticipate DC: On time Plan for Next Visit Problem:Assess and Instruct Home Visit Goal:Home Care Plan Completed Follow up education for next visit: medication manangement Skilled intervention at next visit: medication manangement Instruct Medication Management Problem:Medication Management Goal:Medications Completed Home Visit Med Education: Medication list reconciled. Medication profile and in-home medication list updated with appropriate changes. Discrepanices noted during home visit: none Instructed patient on dosing, purpose, and side effects. Medication education completed today on all medication(s). Patient/caregiver is able to teach back 100% of instruction. Assess Pain Characteristics and Current Pain Regimen and Instruct Methods of Pain Relief Problem:Pain Management Goal:Pain Completed Wound/Incision Problem:Wound Care and/or Skin Problems Com[facility] Visit Details Visit Type -SN HH Routine Vi sit Discipline -Usp Problems Problem Start Date Status Goals Interventions Assess and Instruct Home Visit Disciplines: Usp 08/13/2022 Active 1 goal linked to scheduled/documented intervention 4 goal interventions scheduled/documented in this visit Medication Management Disciplines: Usp 08/13/2022 Active 1 goal linked to scheduled/documented intervention 1 goal intervention scheduled/documented in this visit Pain Management Disciplines: Usp 08/13/2022 Active 1 goal linked to scheduled/documented intervention 1 goal intervention scheduled/documented in this visit Wound Care and/or Skin Problems Disciplines: Usp 08/13/2022 Active - 1 problem intervention scheduled/documented in this visit Goals Goal Associated Problem Outcome Goal Met? Visit Notes Home Care Plan Assess and Instruct Home Visit No Medications Medication Management No Pain Pain Management No Interventions Intervention Associated Problem/Goal Status Variance Visit Notes Falls Problem:Assess and Instruct Home Visit Goal:Home Care Plan Completed Clinician taught: patient 4-10 Patient IS at risk for falls (a score of 6 or greater is a predictor of future falls) and clinician instructed: proper footwear, improved lighting and remove clutter and throw rugs. Patient/caregiver was able to demonstrate 100% via teachback Safety Problem:Assess and Instruct Home Visit Goal:Home Care Plan Completed Assessed patient vulnerability and home safety risks: weakness/pain Equipment reviewed Heart hugger Patient at risk for harm or abuse No Family members involved in safety plan for Level 2 or 3 n/a Discharge Planning Problem:Assess and Instruct Home Visit Goal:Home Care Plan Completed Home Visit DC Planning: Spoke with patient about DC planning. Assessed for limited ambulation related to weakness/pain and unsteady gait/poor balance DC will occur when: patient/caregiver can teach back medication manangement Anticipate DC: On time Plan for Next Visit Problem:Assess and Instruct Home Visit Goal:Home Care Plan Completed Follow up education for next visit: medication manangement Skilled intervention at next visit: medication manangement Instruct Medication Management Problem:Medication Management Goal:Medications Completed Home Visit Med Education: Medication list reconciled. Medication profile and in-home medication list updated with appropriate changes. Discrepanices noted during home visit: none Instructed patient on dosing, purpose, and side effects. Medication education completed today on all medication(s). Patient/caregiver is able to teach back 90% of instruction. Assess Pain Characteristics and Current Pain Regimen and Instruct Methods of Pain Relief Problem:Pain Management Goal:Pain Completed Wound/Incision Problem:Wound Care and/or Skin Problems Completed [facility] Visit Details Visit Type -SN Missed Visit Discipline -Usp Problems Problem Start Date Status Goals Interventions Assess and Instruct Home Visit Disciplines: Usp 08/13/2022 Active 1 goal linked to scheduled/documented intervention 4 goal interventions scheduled/documented in this visit Medication Management Disciplines: Usp 08/13/2022 Active 1 goal linked to scheduled/documented intervention 1 goal intervention scheduled/documented in this visit Pain Management Disciplines: Usp 08/13/2022 Active 1 goal linked to scheduled/documented intervention 1 goal intervention scheduled/documented in this visit Wound Care and/or Skin Problems Disciplines: Usp 08/13/2022 Active - 1 problem intervention scheduled/documented in this visit Goals Goal Associated Problem Outcome Goal Met? Visit Notes Home Care Plan Assess and Instruct Home Visit No Medications Medication Management No Pain Pain Management No Interventions Intervention Associated Problem/Goal Status Variance Visit Notes Falls Problem:Assess and Instruct Home Visit Goal:Home Care Plan Scheduled Safety Problem:Assess and Instruct Home Visit Goal:Home Care Plan Scheduled Discharge Planning Problem:Assess and Instruct Home Visit Goal:Home Care Plan Scheduled Plan for Next Visit Problem:Assess and Instruct Home Visit Goal:Home Care Plan Scheduled Instruct Medication Management Problem:Medication Management Goal:Medications Scheduled Assess Pain Characteristics and Current Pain Regimen and Instruct Methods of Pain Relief Problem:Pain Management Goal:Pain Scheduled Wound/Incision Problem:Wound Care and/or Skin Problems Scheduled [facility] Visit Details Visit Type -SN HH Routine Vi sit Discipline -Usp Problems Problem Start Date Status Goals Interventions Assess and Instruct Home Visit Disciplines: Usp 08/13/2022 Active 1 goal linked to scheduled/documented intervention 4 goal interventions scheduled/documented in this visit Medication Management Disciplines: Usp 08/13/2022 Active 1 goal linked to scheduled/documented intervention 1 goal intervention scheduled/documented in this visit Pain Management Disciplines: Usp 08/13/2022 Active 1 goal linked to scheduled/documented intervention 1 goal intervention scheduled/documented in this visit Wound Care and/or Skin Problems Disciplines: Usp 08/13/2022 Resolved on 09/18/2022 - 1 problem intervention scheduled/documented in this visit Goals Goal Associated Problem Outcome Goal Met? Visit Notes Home Care Plan Assess and Instruct Home Visit No Medications Medication Management No Pain Pain Management No Interventions Intervention Associated Problem/Goal Status Variance Visit Notes Falls Problem:Assess and Instruct Home Visit Goal:Home Care Plan Completed Clinician taught: patient 4-10 Patient IS at risk for falls (a score of 6 or greater is a predictor of future falls) and clinician instructed: proper footwear, improved lighting and remove clutter and throw rugs. Patient/caregiver was able to demonstrate 100% via teachback Safety Problem:Assess and Instruct Home Visit Goal:Home Care Plan Completed Assessed patient vulnerability and home safety risks: weakness/pain Equipment reviewed heart hugger Patient at risk for harm or abuse no Family members involved in safety plan for Level 2 or 3 n/a Discharge Planning Problem:Assess and Instruct Home Visit Goal:Home Care Plan Completed Home Visit DC Planning: Spoke with patient about DC planning. Assessed for limited ambulation related to weakness/pain and unsteady gait/poor balance DC will occur when: patient/caregiver can teach back medication management Anticipate DC: On time Plan for Next Visit Problem:Assess and Instruct Home Visit Goal:Home Care Plan Completed Follow up education for next visit: medication management Skilled intervention at next visit: medication management Instruct Medication Management Problem:Medication Management Goal:Medications Completed Home Visit Med Education: Medication list reconciled. Medication profile and in-home medication list updated with appropriate changes. Discrepanices noted during home visit: none Instructed patient on dosing, purpose, and side effects. Medication education completed today on all medication(s). Patient/caregiver is able to teach back 90% of instruction. Assess Pain Characteristics and Current Pain Regimen and Instruct Methods of Pain Relief Problem:Pain Management Goal:Pain Completed Wound/Incision Problem:Wound Care and/or Skin Problems Completed Not needed [facility] Visit Details Visit Type -SN HH Routine Vi sit Discipline -Usp Problems Problem Start Date Status Goals Interventions Assess and Instruct Home Visit Disciplines: Usp 08/13/2022 Active 1 goal linked to scheduled/documented intervention 4 goal interventions scheduled/documented in this visit Medication Management Disciplines: Usp 08/13/2022 Active 1 goal linked to scheduled/documented intervention 1 goal intervention scheduled/documented in this visit Pain Management Disciplines: Usp 08/13/2022 Active 1 goal linked to scheduled/documented intervention 1 goal intervention scheduled/documented in this visit Goals Goal Associated Problem Outcome Goal Met? Visit Notes Home Care Plan Assess and Instruct Home Visit No Medications Medication Management No Pain Pain Management No Interventions Intervention Associated Problem/Goal Status Variance Visit Notes Falls Problem:Assess and Instruct Home Visit Goal:Home Care Plan Completed Clinician taught: patient 4-10 Patient IS at risk for falls (a score of 6 or greater is a predictor of future falls) and clinician instructed: proper footwear, improved lighting and remove clutter and throw rugs. Patient/caregiver was able to demonstrate 100% via teachback Safety Problem:Assess and Instruct Home Visit Goal:Home Care Plan Completed Assessed patient vulnerability and home safety risks: weakness/pain Equipment reviewed heart hugger Patient at risk for harm or abuse no Family members involved in safety plan for Level 2 or 3 n/a Discharge Planning Problem:Assess and Instruct Home Visit Goal:Home Care Plan Completed Home Visit DC Planning: Spoke with patient about DC planning. Assessed for limited ambulation related to weakness/pain and unsteady gait/poor balance DC will occur when: patient/caregiver can teach back medication manangement Anticipate DC: On time Plan for Next Visit Problem:Assess and Instruct Home Visit Goal:Home Care Plan Completed Follow up education for next visit: medication manangement Skilled intervention at next visit: medication manangement Instruct Medication Management Problem:Medication Management Goal:Medications Completed Home Visit Med Education: Medication list reconciled. Medication profile and in-home medication list updated with appropriate changes. Discrepanices noted during home visit: none Instructed patient on dosing, purpose, and side effects. Medication education completed today on all medication(s). Patient/caregiver is able to teach back 90% of instruction. Assess Pain Characteristics and Current Pain Regimen and Instruct Methods of Pain Relief Problem:Pain Management Goal:Pain Completed [facility] Visit Details Visit Type -SN Missed Visit Discipline -Usp Problems Problem Start Date Status Goals Interventions Assess and Instruct Home Visit Disciplines: Usp 08/13/2022 Active 1 goal linked to scheduled/documented intervention 4 goal interventions scheduled/documented in this visit Medication Management Disciplines: Usp 08/13/2022 Active 1 goal linked to scheduled/documented intervention 1 goal intervention scheduled/documented in this visit Pain Management Disciplines: Usp 08/13/2022 Active 1 goal linked to scheduled/documented intervention 1 goal intervention scheduled/documented in this visit Goals Goal Associated Problem Outcome Goal Met? Visit Notes Home Care Plan Assess and Instruct Home Visit No Medications Medication Management No Pain Pain Management No Interventions Intervention Associated Problem/Goal Status Variance Visit Notes Falls Problem:Assess and Instruct Home Visit Goal:Home Care Plan Scheduled Safety Problem:Assess and Instruct Home Visit Goal:Home Care Plan Scheduled Discharge Planning Problem:Assess and Instruct Home Visit Goal:Home Care Plan Scheduled Plan for Next Visit Problem:Assess and Instruct Home Visit Goal:Home Care Plan Scheduled Instruct Medication Management Problem:Medication Management Goal:Medications Scheduled Assess Pain Characteristics and Current Pain Regimen and Instruct Methods of Pain Relief Problem:Pain Management Goal:Pain Scheduled documented in this encounter [facility] Plan of care note* Visit Details Visit Type -SN Missed Visit Discipline -Usp Problems Problem Start Date Status Goals Interventions Assess and Instruct Home Visit Disciplines: Usp 08/13/2022 Active 1 goal linked to scheduled/documented intervention 4 goal interventions scheduled/documented in this visit Medication Management Disciplines: Usp 08/13/2022 Active 1 goal linked to scheduled/documented intervention 1 goal intervention scheduled/documented in this visit Pain Management Disciplines: Usp 08/13/2022 Active 1 goal linked to scheduled/documented intervention 1 goal intervention scheduled/documented in this visit Goals Goal Associated Problem Outcome Goal Met? Visit Notes Home Care Plan Assess and Instruct Home Visit No Medications Medication Management No Pain Pain Management No Interventions Intervention Associated Problem/Goal Status Variance Visit Notes Falls Problem:Assess and Instruct Home Visit Goal:Home Care Plan Scheduled Safety Problem:Assess and Instruct Home Visit Goal:Home Care Plan Scheduled Discharge Planning Problem:Assess and Instruct Home Visit Goal:Home Care Plan Scheduled Plan for Next Visit Problem:Assess and Instruct Home Visit Goal:Home Care Plan Scheduled Instruct Medication Management Problem:Medication Management Goal:Medications Scheduled Assess Pain Characteristics and Current Pain Regimen and Instruct Methods of Pain Relief Problem:Pain Management Goal:Pain Scheduled [facility] Visit Details Visit Type -SN HH OASIS Disc harge Discipline -Usp Problems Problem Start Date Status Goals Interventions Assess and Instruct Home Visit Disciplines: Usp 08/13/2022 Resolved on 10/02/2022 1 goal linked to scheduled/documented intervention 4 goal interventions scheduled/documented in this visit Medication Management Disciplines: Usp 08/13/2022 Resolved on 10/02/2022 1 goal linked to scheduled/documented intervention 1 goal intervention scheduled/documented in this visit Pain Management Disciplines: Usp 08/13/2022 Resolved on 10/02/2022 1 goal linked to scheduled/documented intervention 1 goal intervention scheduled/documented in this visit Goals Goal Associated Problem Outcome Goal Met? Visit Notes Home Care Plan Assess and Instruct Home Visit No Medications Medication Management No Pain Pain Management No Interventions Intervention Associated Problem/Goal Status Variance Visit Notes Falls Problem:Assess and Instruct Home Visit Goal:Home Care Plan Completed Patient has completed home care and surgical incisions have healed. Patient has started to drive and is indpeendent with ADLs/IDLs. Goals are met from home care. Safety Problem:Assess and Instruct Home Visit Goal:Home Care Plan Completed Patient has completed home care and surgical incisions have healed. Patient has started to drive and is indpeendent with ADLs/IDLs. Goals are met from home care. Discharge Planning Problem:Assess and Instruct Home Visit Goal:Home Care Plan Completed Patient has completed home care and surgical incisions have healed. Patient has started to drive and is indpeendent with ADLs/IDLs. Goals are met from home care. Plan for Next Visit Problem:Assess and Instruct Home Visit Goal:Home Care Plan Completed Patient has completed home care and surgical incisions have healed. Patient has started to drive and is indpeendent with ADLs/IDLs. Goals are met from home care. Instruct Medication Management Problem:Medication Management Goal:Medications Completed Patient has completed home care and surgical incisions have healed. Patient has started to drive and is indpeendent with ADLs/IDLs. Goals are met from home care. Assess Pain Characteristics and Current Pain Regimen and Instruct Methods of Pain Relief Problem:Pain Management Goal:Pain Completed [facility] Actions SOC Narratives HOMEBOUND STATUS Criteria 1: Assistive Device(s): heart hugger Needs assistance of at least 1 to leave home Criteria 2: Patient confined to home due to limited ambulation related to weakness/pain, unsteady gait/poor balance and dyspnea at rest or with exertion Type of Home: apartment [facility]* Actions cp assessment Narratives Homebound Status Criteria 1: Assistive Device(s): heart hugger Needs assistance of at least 1 to leave home Criteria 2: Patient confined to home due to limited ambulation related to weakness/pain and unsteady gait/poor balance Type of Home: 2-story house [facility] Actions cp assessment Narratives Homebound Status Criteria 1: Assistive Device(s): heart hugger Needs assistance of at least 1 to leave home Criteria 2: Patient confined to home due to limited ambulation related to weakness/pain and unsteady gait/poor balance Type of Home: 2-story house [facility] Actions Missed visit Narratives Called patient for visit and patient stated that he is in [facility] because of an emergency. Missed visit completed. physician notified. Next visit scheduled for 09/18/22 [facility] Actions cp assessment Narratives Homebound Status Criteria 1: Assistive Device(s): heart hugger Needs assistance of at least 1 to leave home Criteria 2: Patient confined to home due to limited ambulation related to weakness/pain and unsteady gait/poor balance Type of Home: 2-story house [facility] Actions cp assessment Narratives Homebound Status Criteria 1: Assistive Device(s): heart hugger Needs assistance of at least 1 to leave home Criteria 2: Patient confined to home due to limited ambulation related to weakness/pain and unsteady gait/poor balance Type of Home: 2-story house. Patient states he has not worn his heart hugger or abdominal binder for the last two days. edema noted to the left side of the chest. [employer] sent to PETE Escamilla at Dr. Eng's office. [facility]* Actions missed visit Narratives Called patient for a visit t daniel. 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 Next visit is scheduled for Wednesday next . Patient with understanding. missed visit complete. Physician notified by inbox message. [facility] Actions discharge Narratives Patient has completed home c are and surgical incisions have healed. Patient has started to drive and is indpeendent with ADLs/IDLs. Goals are met from home care. [facility] No data available for this section [facility] Reason for referral (narrative) Referred by: Paulette CARBALLO CNP [facility] Reason for referral (narrative)No [facility] for [facility]erral [facility] Work Phone: Reason for referral (narrative)* Consultation (Routine) - New Request Specialty Diagnoses / Procedures Referred By Mary Ann freitas Referred To Contact Vascular Surgery Diagnoses Injury of right knee, initial encounter Chema Webber MD [address] [place] [id number] Tamir Bethea MD [address] [place] [address] Referral ID Status Reason Start Date Expiration Date V isits Requested Visits Authorized [id number] New Request 07/07/2022 08/01/2023 1 1 [facility] for visit Narrative* Auth/Cert Specialty Diagnoses / Procedures Referred By Mary Ann freitas Referred To Contact Referral ID Status Reason Start Date Expiration Date Visits Re quested Visits Authorized [id number] 1 1 [facility] Narrative - Reported Review of Systems not supported for this document type No Review of Systems [facility] Work Phone: Assessments Diagnosis Neck pain - Primary Cervicalgia Left elbow pain Pain in joint, upper arm Diagnosis Pain - Primary Generalized pain Diagnosis Hyperlipidemia, unspecified hyperlipidemia type Essential hypertension Unspecified essential hypertension Coronary artery disease due to lipid rich plaque Tobacco abuse Tobacco use disorder Cocaine abuse Nondependent cocaine abuse, unspecified Diagnosis Neck pain - Primary Cervicalgia Diagnosis Cervical arthritis (HCC) - P rimary Cervical spondylosis without myelopathy Diagnosis Cervical arthritis (HCC) - P rimary Cervical spondylosis without myelopathy Diagnosis Chest pain, unspecified type- Primary Coronary artery disease due to lipid rich plaque Essential hypertension Unspecified essential hypertension Hyperlipidemia, unspecified hyperlipidemia type Tobacco Abuse Tobacco use disorder Cocaine abuse (HCC) Nondependent cocaine abuse, unspecified Diagnosis Chest pain, unspecified type Diagnosis Cellulitis, unspecified cellulitis site Diagnosis Current mild episode of major depressive disorder, unspecified whether recurrent (HCC) Cocaine use disorder, moderate, dependence ([facility]) Alcohol abuse Nondependent alcohol abuse, unspecified drinking behavior Homeless Lack of housing Mood disorder ([facility]) Unspecified episodic mood disorder Psychoactive substance-induced mood disorder ([facility]) Diagnosis Hip arthritis- Primary Unspecified arthropathy, pelvic region and thigh Diagnosis Pneumonia of both lower lobes due to infectious organism- Primary Diagnosis Contact dermatitis, unspecified contact dermatitis type, unspecified trigger- Primary Diagnosis Dental caries Unspecified dental caries Pain, dental Right ear pain Unspecified otalgia Diagnosis Essential hypertension- Primary Unspecified essential hypertension Nonintractable headache, unspecified chronicity pattern, unspecified headache type Diagnosis KP (acute kidney injury) ([facility])- Primary Acute kidney failure, unspecified Hypokalemia Hypopotassemia Essential hypertension Unspecified essential hypertension Summary Purpose Family History No Family History Records FoundNo Family History Records FoundNo Family History Records FoundNo Family History Records FoundNo Family History Records FoundNo Family History Records FoundNo Family History Records Found Includes: Family History in patient's chart No Family History RecordedNo Family History Records FoundNo Family History Records FoundNo Family History Records Found No data available for this section No Family History Records FoundNo Family History Records Found No data available for this section No data available for this section No data available for this section No data available for this section No data available for this section No Family History Records FoundNo Family History Records Found No data available for this section No data available for this section No data available for this section No Family History Records FoundNo Family History Records FoundNo Family History Records FoundNo Family History Records FoundNo Family History Records FoundNo Family History Records FoundNo Family History Records FoundNo Family History Records Found No data available for this section No data available for this section No Family History Records Found Advance Directives No Advanced Directives Records Found Date Activated Date Inactivated Comments 09/06/2024 8:23 PM 09/11/2024 8:43 PM Date Activated Date Inactivated Comments 08/31/2022 6:50 PM 09/03/2022 4:49 PM Date Activated Date Inactivated Comments 08/18/2022 3:16 PM 08/25/2022 2:26 PM Date Activated Date Inactivated Comments 08/13/2022 11:42 AM 08/18/2022 2:51 PM Code Status reflects patient's informed choice. Date Activated Date Inactivated Comments 08/06/2022 10:59 AM 08/12/2022 2:45 PM Documents on File Type Date Recorded Patient Wheel Braider Expl anation Advance Directives and Livin g Will 04/15/2019 11:58 AM Documents on File Type Date Recorded Patient Wheel Braider Expl anation Advance Directives and Livin g Will 06/19/2019 9:21 AM Latest Code Status on File Code Status Date Activated Date Inactivated Comments Full Code - Unverified 06/19/2019 5:19 PM Documents on File Type Date Recorded Patient Wheel Braider Expl anation Advance Directives and Livin g Will 04/22/2020 12:00 AM Latest Code Status on File Code Status Date Activated Date Inactivated Comments Full Code - Unverified 06/19/2019 5:19 PM 11/11/2019 3:24 PM Documents on File Type Date Recorded Patient Wheel Braider Expl anation Advance Directives and Livin g Will 12/09/2018 6:25 AM Documents on File Type Date Recorded Patient Wheel Braider Expl anation Advance Directives and Livin g Will 11/11/2019 4:02 PM Documents on File Type Date Recorded Patient Wheel Braider Expl anation ACP-Advance Directive ACP-Power of Press Writer Latest Code Status on File Code Status Date Activated Date Inactivated Comments Full Code 08/08/2020 4:46 PM Documents on File Type Date Recorded Patient Wheel Braider Expl anation Advance Directives and Livin g Will 04/22/2020 12:00 AM Latest Code Status on File Code Status Date Activated Date Inactivated Comments Full Code - Unverified 06/19/2019 5:19 PM 11/11/2019 3:24 PM Documents on File Type Date Recorded Patient Wheel Braider Expl anation Advance Directives and Livin g Will 02/26/2021 3:14 PM Documents on File Type Date Recorded Patient Wheel Braider Expl anation Advance Directives and Livin g Will 02/26/2021 3:14 PM Latest Code Status on File Code Status Date Activated Date Inactivated Comments Full Code 08/08/2020 4:46 PM 08/09/2020 8:50 PM Latest Code Status on File Code Status Date Activated Date Inactivated Comments Full Code 11/07/2021 8:00 AM 11/07/2021 11:23 AM Full Code - Unverified 06/19/2019 5:19 PM 11/11/2019 3:24 PM Latest Code Status on File Code Status Date Activated Date Inactivated Comments Full Code 11/07/2021 8:00 AM 11/07/2021 11:23 AM Full Code - Unverified 06/19/2019 5:19 PM 11/11/2019 3:24 PM Latest Code Status on File Code Status Date Activated Date Inactivated Comments Full Code 11/20/2021 11:57 AM Full Code 11/07/2021 8:00 AM 11/07/2021 11:23 AM Latest Code Status on File Code Status Date Activated Date Inactivated Comments Full Code 11/20/2021 11:57 AM Full Code 11/07/2021 8:00 AM 11/07/2021 11:23 AM Latest Code Status on File Code Status Date Activated Date Inactivated Comments Full Code 11/20/2021 11:57 AM 12/09/2021 6:22 PM Latest Code Status on File Date Activated Date Inactivated Comments 11/20/2021 11:57 AM 12/09/2021 6:22 PM Full Code Date Activated Date Inactivated Comments 11/07/2021 8:00 AM 11/07/2021 11:23 AM Full Code - Unverified Date Activated Date Inactivated Comments 06/19/2019 5:19 PM 11/11/2019 3:24 PM Latest Code Status on File Date Activated Date Inactivated Comments 12/31/2021 7:14 AM Full Code Date Activated Date Inactivated Comments 11/20/2021 11:57 AM 12/09/2021 6:22 PM Full Code Date Activated Date Inactivated Comments 11/07/2021 8:00 AM 11/07/2021 11:23 AM Full Code - Unverified Date Activated Date Inactivated Comments 06/19/2019 5:19 PM 11/11/2019 3:24 PM Latest Code Status on File Date Activated Date Inactivated Comments 01/04/2022 11:25 PM 01/07/2022 3:19 PM Full Code Date Activated Date Inactivated Comments 12/31/2021 7:14 AM 01/03/2022 1:33 PM Full Code Date Activated Date Inactivated Comments 11/20/2021 11:57 AM 12/09/2021 6:22 PM Latest Code Status on File Code Status Date Activated Date Inactivated Comments Full Code 08/08/2020 4:46 PM 08/09/2020 8:50 PM Latest Code Status on File Code Status Date Activated Date Inactivated Comments Full Code 01/04/2022 11:25 PM 01/07/2022 3:19 PM Code Status History Code Status Date Activated Date Inactivated Comments Full Code 12/31/2021 7:14 AM 01/03/2022 1:33 PM Full Code 11/20/2021 11:57 AM 12/09/2021 6:22 PM Full Code 11/07/2021 8:00 AM 11/07/2021 11:23 AM Full Code - Unverified 06/19/2019 5:19 PM 11/11/2019 3:24 PM Latest Code Status on File Code Status Date Activated Date Inactivated Comments Full Code 01/04/2022 11:25 PM 01/07/2022 3:19 PM Code Status History Code Status Date Activated Date Inactivated Comments Full Code 12/31/2021 7:14 AM 01/03/2022 1:33 PM Full Code 11/20/2021 11:57 AM 12/09/2021 6:22 PM Full Code 11/07/2021 8:00 AM 11/07/2021 11:23 AM Full Code - Unverified 06/19/2019 5:19 PM 11/11/2019 3:24 PM Latest Code Status on File Code Status Date Activated Date Inactivated Comments Full Code 08/13/2022 11:42 AM Code Stat us reflects patient's informed choice. Code Status History Code Status Date Activated Date Inactivated Comments Full Code 08/06/2022 10:59 AM 08/12/2022 2:45 PM Full Code 01/04/2022 11:25 PM 01/07/2022 3:19 PM Full Code 12/31/2021 7:14 AM 01/03/2022 1:33 PM Full Code 11/20/2021 11:57 AM 12/09/2021 6:22 PM Latest Code Status on File Code Status Date Activated Date Inactivated Comments Full Code 08/18/2022 3:16 PM Code Status History Code Status Date Activated Date Inactivated Comments Full Code 08/13/2022 11:42 AM 08/18/2022 2:51 PM Code Status reflects patient's informed choice. Full Code 08/06/2022 10:59 AM 08/12/2022 2:45 PM Full Code 01/04/2022 11:25 PM 01/07/2022 3:19 PM Full Code 12/31/2021 7:14 AM 01/03/2022 1:33 PM Latest Code Status on File Code Status Date Activated Date Inactivated Comments Full Code 08/18/2022 3:16 PM Code Status History Code Status Date Activated Date Inactivated Comments Full Code 08/13/2022 11:42 AM 08/18/2022 2:51 PM Code Status reflects patient's informed choice. Full Code 08/06/2022 10:59 AM 08/12/2022 2:45 PM Full Code 01/04/2022 11:25 PM 01/07/2022 3:19 PM Full Code 12/31/2021 7:14 AM 01/03/2022 1:33 PM Latest Code Status on File Code Status Date Activated Date Inactivated Comments Full Code 08/18/2022 3:16 PM 08/25/2022 2:26 PM Latest Code Status on File Code Status Date Activated Date Inactivated Comments Full Code 08/18/2022 3:16 PM 08/25/2022 2:26 PM Latest Code Status on File Code Status Date Activated Date Inactivated Comments Full Code 08/31/2022 6:50 PM Code Status History Code Status Date Activated Date Inactivated Comments Full Code 08/18/2022 3:16 PM 08/25/2022 2:26 PM Full Code 08/13/2022 11:42 AM 08/18/2022 2:51 PM Code Status reflects patient's informed choice. Full Code 08/06/2022 10:59 AM 08/12/2022 2:45 PM Full Code 01/04/2022 11:25 PM 01/07/2022 3:19 PM Latest Code Status on File Code Status Date Activated Date Inactivated Comments Full Code 08/31/2022 6:50 PM 09/03/2022 4:49 PM Latest Code Status on File Code Status Date Activated Date Inactivated Comments Full Code 08/31/2022 6:50 PM 09/03/2022 4:49 PM Code Status History Code Status Date Activated Date Inactivated Comments Full Code 08/18/2022 3:16 PM 08/25/2022 2:26 PM Full Code 08/13/2022 11:42 AM 08/18/2022 2:51 PM Code Status reflects patient's informed choice. Full Code 08/06/2022 10:59 AM 08/12/2022 2:45 PM Full Code 01/04/2022 11:25 PM 01/07/2022 3:19 PM Latest Code Status on File Code Status Date Activated Date Inactivated Comments Full Code 08/08/2020 4:46 PM 08/09/2020 8:50 PM Date Activated Date Inactivated Comments 08/31/2022 6:50 PM 09/03/2022 4:49 PM Date Activated Date Inactivated Comments 08/18/2022 3:16 PM 08/25/2022 2:26 PM Date Activated Date Inactivated Comments 08/13/2022 11:42 AM 08/18/2022 2:51 PM Code Status reflects patient's informed choice. Date Activated Date Inactivated Comments 08/06/2022 10:59 AM 08/12/2022 2:45 PM Date Activated Date Inactivated Comments 01/04/2022 11:25 PM 01/07/2022 3:19 PM Date Activated Date Inactivated Comments 08/31/2022 6:50 PM 09/03/2022 4:49 PM Date Activated Date Inactivated Comments 08/18/2022 3:16 PM 08/25/2022 2:26 PM Date Activated Date Inactivated Comments 08/13/2022 11:42 AM 08/18/2022 2:51 PM Code Status reflects patient's informed choice. Date Activated Date Inactivated Comments 08/06/2022 10:59 AM 08/12/2022 2:45 PM Date Activated Date Inactivated Comments 01/04/2022 11:25 PM 01/07/2022 3:19 PM Date Activated Date Inactivated Comments 09/06/2024 8:23 PM Date Activated Date Inactivated Comments 09/06/2024 8:23 PM 09/11/2024 8:43 PM Date Activated Date Inactivated Comments 08/31/2022 6:50 PM 09/03/2022 4:49 PM Date Activated Date Inactivated Comments 08/18/2022 3:16 PM 08/25/2022 2:26 PM Date Activated Date Inactivated Comments 08/13/2022 11:42 AM 08/18/2022 2:51 PM Code Status reflects patient's informed choice. Date Activated Date Inactivated Comments 08/06/2022 10:59 AM 08/12/2022 2:45 PM Reason for Referral Status Reason Specialty Diagnoses / Procedures Referred By Contact Referred To Contact Authorized Cardiology Diagnoses Chest pain, unspecified type Procedures Stress test only, exercise Rolando Constantino MD [address] [phone] Status Reason Specialty Diagnoses / Procedures Referre d By Contact Referred To Contact Closed Cardiology Diagnoses Chest pain, unspecified type Procedures Stress test only, exercise Rolando Constantino MD [address] [phone] Status Reason Specialty Diagnoses / Procedures Referred By Contact Referred To Contact Pending Review Specialty Services Required/Patie nt's Best Interest Radiology Diagnoses History of chronic cough History of tobacco abuse Procedures Complete PFT with pre - post bronchodilator Gail Garduno CNP [address] [place], [place] [id number] Status Reason Specialty Diagnoses / Procedures Referred By Contact Referred To Contact Authorized Specialty Services Required/Patie nt's Best Interest Pain Management Diagnoses Paresthesia of both feet Back pain, unspecified back location, unspecified back pain laterality, unspecified chronicity Gial Garduno CNP [address] [place] [phone] Genaro Rankin MD [address] [place] [address] Status Reason Specialty Diagnoses / Procedures Referred By Contact Referred To Contact Authorized Specialty Services Required/Patie nt's Best Interest General Surgery Diagnoses Dysphagia, unspecified type Hoarseness Pharyngitis, unspecified etiology Encounter for screening colonoscopy Gail Garduno CNP [address] [place] [phone] [facility] [facility] [address] [facility] Medical Office Building, 5th [place] [address] Status Reason Specialty Diagnoses / Procedures Referred By Contact Referred To Contact Authorized Specialty Services Required/Bekah ent's Best Interest Otolaryngology (ENT) / Otolaryngology Diagnoses Dysphagia, unspecified type Hoarseness Pharyngitis, unspecified etiology Gail Garduno, [employer] [address] [place] [phone] William Bliss, DO [address] [place] [address] Specialty Diagnoses / Procedures Referred By Contac t Referred To Contact Rehabilitation Diagnoses Arthritis of hip Primary osteoarthritis of right hip SiluMariela MD [address] [phone] [facility] [address] [place] [phone] Referral ID Status Reason Start Date Expiration Date V isits Requested Visits Authorized [id number] Pending Review 03/17/2021 03/17/2022 1 1 Specialty Diagnoses / Procedures Referred By Contac t Referred To Contact Cardiology Diagnoses 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) PAD (peripheral artery disease) (HCC) Maryse Melton PA-C [address] [phone] Jules Bowman MD [address] [phone] Referral ID Status Reason Start Date Expiration Date V isits Requested Visits Authorized [id number] Authorized 11/11/2021 11/11/2022 1 1 Specialty Diagnoses / Procedures Referred By Contac t Referred To Contact Cardiology Diagnoses 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) PAD (peripheral artery disease) (HCC) Procedures Radial Artery Mapping Bilateral Maryse Melton PA-C [address] [place] [address] Referral ID Status Reason Start Date Expiration Date V isits Requested Visits Authorized [id number] Authorized 11/11/2021 11/11/2022 1 1 Specialty Diagnoses / Procedures Referred By Contac t Referred To Contact Cardiology Diagnoses 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) Procedures Upper extremity vein mapping Jules Bowman MD [address] [place] [address] Referral ID Status Reason Start Date Expiration Date V isits Requested Visits Authorized [id number] Pending Review 11/12/2021 11/12/2022 1 1 Specialty Diagnoses / Procedures Referred By Contac t Referred To Contact Cardiac Rehabilitation Diagnoses S/P CABG (coronary artery bypass graft) Babita Valdez PA-C [address] [place] [address] Referral ID Status Reason Start Date Expiration Date V isits Requested Visits Authorized [id number] Authorized 12/25/2021 12/25/2022 1 1 Specialty Diagnoses / Procedures Referred By Contac t Referred To Contact Pain Medicine Diagnoses S/P CABG (coronary artery bypass graft) Julio C Zheng PA-C [address] [place] [address] Peña Hitchcock MD [address] [place] [address] Referral ID Status Reason Start Date Expiration Date V isits Requested Visits Authorized [id number] Authorized 01/01/2022 01/01/2023 1 1 Specialty Diagnoses / Procedures Referred By Contac t Referred To Contact Radiology Diagnoses Musculoskeletal chest pain Exertional dyspnea Essential hypertension Pure hypercholesterolemia Procedures CT CHEST W WO Emiliana Agustin MD [address] [address] Referral ID Status Reason Start Date Expiration Date Visits Re quested Visits Authorized [id number] Closed 04/27/2022 05/27/2022 1 1 Specialty Diagnoses / Procedures Referred By Contac t Referred To Contact Pulmonology Diagnoses Chronic cough Julio C Zheng PA-C [address] [place] [address] Abigail Page MD [address] [place] [phone] Referral ID Status Reason Start Date Expiration Date V isits Requested Visits Authorized [id number] Authorized 06/26/2022 06/26/2023 1 1 Specialty Diagnoses / Procedures Referred By Contac t Referred To Contact Radiology Diagnoses Primary osteoarthritis of right hip Procedures XR Aspiration Injection Large Joint Right Viau, Mariela Tolentino MD [address] [phone] Referral ID Status Reason Start Date Expiration Date V isits Requested Visits Authorized [id number] Authorized 07/13/2022 07/13/2023 1 1 Specialty Diagnoses / Procedures Referred By Contac t Referred To Contact Radiology Diagnoses 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 Procedures CT Chest Without Contrast Julio C Zheng PA-C [address] [place] [address] Referral ID Status Reason Start Date Expiration Date V isits Requested Visits Authorized [id number] Pending Review 07/20/2022 07/20/2023 1 1 Specialty Diagnoses / Procedures Referred By Contac t Referred To Contact Pain Medicine Diagnoses Disruption of closure of sternum or sternotomy, subsequent encounter Julio C Zheng PA-C [address] [place] [address] Rebel Al DO [address] [place] [address] Referral ID Status Reason Start Date Expiration Date V isits Requested Visits Authorized [id number] Pending Review 12/11/2022 12/11/2023 1 1 Specialty Diagnoses / Procedures Referred By Contac t Referred To Contact Diagnoses Disruption of closure of sternum or sternotomy, subsequent encounter Julio C Zheng PA-C [address] [phone] Referral ID Status Reason Start Date Expiration Date V isits Requested Visits Authorized [id number] Pending Review 1 1 Specialty Diagnoses / Procedures Referred By Contac t Referred To Contact Pain Management Diagnoses Arthritis of hip Cervical arthritis Primary osteoarthritis of right hip ViauMariela MD [address] [place] [address] Referral ID Status Reason Start Date Expiration Date Visits Requested Visits Authorized [id number] Pending Review Specialty Services Required/Cami naylor's Best Interest 07/22/2023 07/21/2024 1 1 Referral ID Status Reason Start Date Expiration Date V isits Requested Visits Authorized [id number] Pending Review 11/08/2023 11/07/2024 1 1 Specialty Diagnoses / Procedures Referred By Contac t Referred To Contact Pulmonology Diagnoses Chronic obstructive pulmonary disease, unspecified COPD type (HCC) Procedures PFT spirometry pre and post bronchodilator Jacquelyn Hannon MD [address] [place] [address] Referral ID Status Reason Start Date Expiration Date Visits Re quested Visits Authorized [id number] Closed 02/07/2024 02/06/2025 1 1 Specialty Diagnoses / Procedures Referred By Contac t Referred To Contact Radiology Diagnoses Nicotine dependence, cigarettes, uncomplicated Procedures CT Lung Cancer Screening RiddhiJacquelyn MD [address] [place] [address] Referral ID Status Reason Start Date Expiration Date V isits Requested Visits Authorized [id number] New Request 02/07/2024 02/06/2025 1 1 Instructions * Patient Instructions - Izabella Florence - 05/27/2018 9:01 AM EST How to contact your Care Team: Provider: Rolando Constantino MD [facility] Nurse: Izabella Florence, RN In case of an emergency please call 911. in this encounter History of Present Illness * Rolando Constantino MD - 05/27/2018 9:10 AM EST Formatting of this note may be different from the original. OFFICE CONSULTATION NOTE [facility] [address]) [facility] [address] [facility] [phone] Physicians: Lulu Norwood MD Subjective: Maryse Mak is a 63 y.o. male seen in the office today for Follow-up (clearance for in patient rehab) and Chest Pain (pt went to ER for CP that radiated down his back on 05-26-18 ) . HPI: Maryse is a 63-year-old gentleman with a past medical history significant for coronary artery disease. He has known stenosis of the proximal LAD by cardiac catheterization in 2007. Fractional flow reserve assessment at that time did not demonstrate physiologic significance. He has a long-standing history of hypertension, hyperlipidemia, profound tobacco abuse, chronic pain, alcohol, and cocaine abuse. He has a history of significant medical noncompliance. He was hospitalized yesterday for chest pain. He was having pain in his central chest that radiated to his back. There was no exertional component to his symptoms. CT of the chest did not demonstrate significant pathology. His cardiac markers were undetectable. Maryse has a history of severe pain. He has had 16 surgeries in the past. He is a self-professed proponent of self-medication. He is currently seeking a treatment program for drug and alcohol abuse. He has a place in mind. He denies any orthopnea, paroxysmal nocturnal dyspnea, syncope, or near syncope. He continues to have dyspnea on exertion. He also complains of profound joint pain. Assessment & Plan: CAD (coronary artery disease) The patient has atypical chest discomfort. His cardiac markers were negative in hospital. He did have some subtle EKG changes in the lateral leads. I have ordered a standard stress test. He feels that he will be able to walk on a treadmill. If there is no discernible ischemia, I would continue to treat him with risk modification. HTN (hypertension) His blood pressure is acceptable on current medical therapy. I have asked him not to adjust his ownmedications. He was warned. Hyperlipidemia He is not on statin therapy. He was given a prescription for a statin upon discharge from hospital but did not fill it. I take liberty of starting him on atorvastatin 40 mg daily. Tobacco Abuse He continues to smoke a pack of cigarettes a day. He was once again warned about the adverse consequences of persistent tobacco abuse. Cocaine Abuse (HCC) He has not abused cocaine in 7 days. He is interested in seeking a treatment program. He was once again warned about the adverse consequences of persistent cocaine abuse. Follow Up Ordered: Return in about 6 months (around 11/24/2018). Histories: Past Medical History: Diagnosis Date Arthritis Chronic back pain Clotting disorder (HCC) DVT Coronary artery disease moderate stenosis of LAD and mild plaque in other vessels Hyperlipidemia Hypertension Past Surgical History: Procedure Laterality Date BACK SURGERY CARDIAC CATHETERIZATION moderate stenosis of LAD and mild plaque in other vessels left arm leg sx right and left blood clots Family History Problem Relation Age of Onset Heart disease Father Heart attack Father Heart attack Maternal Uncle Heart disease Maternal Uncle Social History Substance Use Topics Smoking status: Current Every Day Smoker Packs/day: 1.00 Years: 45.00 Types: Cigarettes Smokeless tobacco: Never Used Alcohol use Yes Comment: occasional Current Outpatient Prescriptions Medication Sig Dispense Refill lisinopril-hydrochlorothiazide (PRINZIDE,ZESTORETIC) 20-12.5 mg per tablet Take 1 (one) tablet by mouth daily. (Patient taking differently: Take 1 tablet by mouth daily .) 90 tablet 3 aspirin 81 MG EC tablet Take 81 mg by mouth daily. atorvastatin (LIPITOR) 40 MG tablet Take 1 (one) tablet (40 mg total) by mouth daily . 90 tablet 3 No current facility-administered medications for this visit. No Known Allergies Review of Systems Constitution: Negative for diaphoresis, malaise/fatigue, weight gain and weight loss. HENT: Negative for hearing loss, nosebleeds and tinnitus. Eyes: Negative for blurred vision and visual disturbance. Cardiovascular: Positive for chest pain. Negative for claudication, cyanosis, dyspnea on exertion, irregular heartbeat, leg swelling, near-syncope, orthopnea, palpitations, paroxysmal nocturnal dyspnea and syncope. Respiratory: Negative for hemoptysis, shortness of breath and snoring. Endocrine: Negative for cold intolerance and heat intolerance. Hematologic/Lymphatic: Does not bruise/bleed easily. Skin: Negative for flushing, poor wound healing and rash. Musculoskeletal: Positive for arthritis, joint pain, muscle weakness, myalgias and neck pain. Negative for back pain. Gastrointestinal: Negative for abdominal pain, change in bowel habit, melena, nausea and vomiting. Genitourinary: Negative for decreased libido and hematuria. Neurological: Negative for loss of balance and numbness. Psychiatric/Behavioral: Negative for memory loss. The patient is not nervous/anxious. Overview of Problems Addressed: Problem Tobacco Abuse Cocaine Abuse (Hcc) Cad (Coronary Artery Disease) Htn (Hypertension) Hyperlipidemia Objective: Physical Exam Constitutional: He is oriented to person, place, and time. He appears well- developed and well-nourished. HENT: Head: Normocephalic. Eyes: Pupils are equal, round, and reactive to light. Conjunctivae and EOM are normal. No scleral icterus. Neck: Normal range of motion. Neck supple. No JVD present. No tracheal deviation present. No thyromegaly present. Cardiovascular: Normal rate, regular rhythm, S1 normal, S2 normal and intact distal pulses. Exam reveals no friction rub. Murmur heard. 2/6 systolic murmur heard best at the upper right and left sternal border. Pulmonary/Chest: No respiratory distress. He has no wheezes. He has no rales. Diminished air entry with scattered rhonchi. Abdominal: Soft. Bowel sounds are normal. He exhibits no distension and no mass. There is no hepatosplenomegaly. There is no tenderness. Musculoskeletal: Normal range of motion. He exhibits no edema. Stigmata of arthritis are observed. Lymphadenopathy: He has no cervical adenopathy. Neurological: He is alert and oriented to person, place, and time. Skin: Skin is warm and dry. Psychiatric: He has a normal mood and affect. His behavior is normal. Vitals: Vitals: 05/27/18 0844 BP: 137/74 BP Location: Left arm Patient Position: Sitting BP Cuff Size: Adult Pulse: 87 SpO2: 97% Weight: 101.2 kg (223 lb) Height: 6' Orders Placed This Encounter Stress test only, exercise atorvastatin (LIPITOR) 40 MG tablet Thank you for allowing me to assist you in the cardiovascular care of this patient. Please don't hesitate to contact me if you have any questions regarding these thoughts. Rolando Constantino MD in this encounter* Jo Goyal RN - 05/27/2018 1:02 PM EST Attempted to call patient regarding Transition of Care following hospitalization d/c on 05/26/18 first attempt at contacting patient. Unsuccessful attempt due to left message to return my call on answering machine in this encounter* Jo Goyal RN - 05/31/2018 9:16 AM EST Attempted to call patient regarding Transition of Care following hospitalization d/c on 05/26/18 third attempt at contacting patient. Unsuccessful attempt due to left message to return my call on answering machine cpcp plus letter sent on 05/30/18 in this encounter* Negra Ewing RN - 06/26/2019 4:04 PM EST 1555 Discharged to Crisis Unit with all belongings accompanied by Lee Franz at this time. * Lee Schmid MSW LSW - 06/26/2019 10:45 AM EST Discussed case with attending physician today. Dr. Egan is to discharge patient today so long as a bed at the Crisis Stabilization Unit (CSU) at [facility] is available. MATTHEW spoke with Timothy at [facility] who affirmed a bed is available. MATTHEW called in step down information to [facility] and faxed over pertinent information to Lee Franz for prescreening purposes. Lee Franz will be over later this afternoon to prescreen the patient to determine his appropriateness for the CSU. As long as patient meets criteria for CSU, he can be discharged to the CSU with Lee Franz this afternoon. YARDING SUPERVISOR did notify Dr. Egan of this plan, including the fact that all of patient's meds (medical and psych)will need sent to [facility] at [facility]. Patient to follow-up with [facility] - will fax AVS to their agency once completed. Safety Plan completed and reviewed. Patient reports feeling good and calm today and denies any SI, HI, or hallucinations. He is looking forward to staying at the CSU with possibility of transferring over to [facility]. Patient feels ready for discharge. Case closed. * Amrit Nieto RN - 06/26/2019 10:36 AM EST Patient is calm, cooperative, friendly, euthymic, full affect, and denies SI/HI/AH/VH. He is socialin common areas, dressed appropriately in street clothing, and appropriately social. He is attending groups and his goal for the day is to be discharged. His plan is to go to the crisis unit and get his car fixed at the end of the month. He is positive about attending [facility] and very positive about his stay here. He reports that this admission has helped him and he feels safe to leave. harvest worker fruit aware of Crisis bed need and called for a bed there. Patient is eating well, sleeping well, and able to make all needs known. Safety precautions remain in place, will continue to monitor. 1330: Discharge education reviewed with patient, belongings all packed up and patient is waiting jami picked up by Lee Mcgraw from the center. Patient verbalized all discharge education and signed for all belongings. * Xochilt Merchant, VAULT MANAGER - 06/26/2019 9:45 AM EST Goal: Pt feeling level - not too high and not too low. His goal today is stay level and think positive. Steps include think things through, don't get too overly excited, don't get low. Goal is important because it keeps me in a good mood. Life Skills: Pt was provided the the Serenity Prayer and an outline of 2 hands Pt was asked to identify his stressors in life then distinguish the stressors between which ones he had control over andwhich one he does not. Pt was asked to set a goal to what he is willing to work on to change and a goal he is willing to work on to accept. Pt was talkative though exhibits minimal insight. He sharedthe multiple times the police has stopped him for various reasons. His voice elevates as he shared.Discussed reaction patterns and working on changing which he was receptive though questionable if he will follow through as he mostly venting his frustrations. Talked of wanting to move away from this area and does not take responsibility for his part in conflicts. Stan Lockett RN - 06/26/2019 6:23 AM EST 0615 Has rested fair overnight, awake at periods, appears to have slept 5-6 hours, awake and completed ADLs, casual attire, pleasant, appropriate with staff and peers Jazmin Shannon RN - 06/26/2019 2:41 AM EST 0145: Patient is up for drink then back to bed 0245: Patient is resting quietly in bed, eyes closed, respirations even and non labored. Jazmin Shannon RN - 06/25/2019 4:01 PM EST 1530: Patient is resting in bed currently. 1645: Patient up to lounge with tray, he sat in lounge and ate with peers. He is calm, quiet. Denies needs or concerns at this time. 1830: Patient resting in bed. 0: Patient's son Heriberto called. He said I want to know if my dad is still there and if he is ok. There is no release signed in patient's chart, so I asked patient what he wants me to tell his son. He said which son, I have 5. I told him it's Heriberto. Patient said to me Tell him you can't give out any information. I told Heriberto exactly that. Heriberto became upset, began yelling on the phone whycould I talk to him last times he was there? I explained that if we have a patient that requests to remain private, then there is nothing I can do other than to honor those requests. He said my dadleft the house having really bad thoughts, and the breaks on his car are bad, and you can't even paty florentin tell me if he is ok? I said, I'm sorry but I can't share any information with you, but you can leave your phone number and if this person is here I can let them know to call you back. Heriberto then hung up on me. 2114: Patient took HS medications, refused the cream and says his mouth and throat are feeling better, did not need his magic mouthwash this evening. He is calm, pleasant, friendly. He says he worries about sleeping so much, he says I think once I get used to these medications and get up and moving outside that I will feel better. He lays down at this time to rest. Denies further needs or concerns. 2299: Patient is sleeping, respirations even and non labored. * Izabella Contreras CTRS - 06/25/2019 2:05 PM EST Pt out in [facility] with peers watching TV show marathon and eating ice cream snacks x2 when approached for group. Group in [facility] express interest in continuing to watch TV and eat versus attend group.Group was reminded to check daily schedule so to plan their snack time so that they were prepared for group and were also reminded of the reason for their admission and not to focus intensly on TV. * Archana Egna MD - 06/25/2019 1:37 PM EST Psychiatry Progress Note Patient Name: Maryse Mak Admit Date: MR #: [id number] : 1955 Perpetual Assessment Maryse Mak is a 64 y.o. male presenting with alcohol and cocaine withdrawal and suicidal thinking. Diagnosis & Plan/Recommendations Nervous and Auditory * Psychoactive substance-induced mood disorder (HCC) Assessment & Plan A: Mood is much improved. No suicidal thoughts. Now more active in therapies. Attitude more positive. He feels ready for discharge soon. P: Continue current medications Continue individual and group therapies Check on availability of beds at [facility] so he can transition into [facility] Discharge when safe plan is in effect Comorbid issues impacting my care plan include hyperlipidemia, HTN, cardiovascular disease, COPD, non-adherence, substance use and homelessness. Following for depressed mood, suicidal thoughts Interval History: Mr. Mak is feeling much better. We agree he is ready for discharge but that he will relapse soon without intensive IOP or inpatient drug abuse treatment. We will try to arrange through [facility] tomorrow or when good discharge plan is in place. Review of Systems: Constitutional, cardiac, pulmonary, neurologic, musculoskeletal, GI and systems reveiwed and negative except as noted above Physical Examination: Vital Signs: BP 133/86 Pulse 78 Temp 98.1 F (36.7 C) (Oral) Resp 16 Ht 6' 1 Wt 112 kg (247 lb) SpK959% BMI 32.59 kg/m Mental Status Evaluation: General Appearance & Behavior: age appropriate, pleasant, cooperative, good eye contact Grooming & Hygiene: neat and clean Psychomotor Activity: no psychomotor abnormalities or muscle atrophy noted Gait & Station stable gait and ability to rise from bed/chair without assistance Speech: normal rate, rhythym, volume, and spontaneity Flow of Thought: linear and goal directed Thought Associations: Intact Content of Thought: No evidence of suicidal ideations/homicidal ideations/psychosis Mood: much better Affect: euthymic Insight: good Judgment: good Orientation: alert and oriented to person, place, time, and circumstances Memory: intact recent and remote Attention: adequate Concentration: intact Language: fluent Fund of Knowledge: estimated average intelligence Laboratory and Additional Data Reviewed: Laboratory 06/25/19 1:41 PM Medications 06/25/19 1:41 PM Transcriptions 06/25/19 1:41 PM Treatment options and alternatives reviewed with patient. Risks, benefits, side effects of all psychiatric medications discussed with patient and informed consent obtained. All questions were answered. Archana Egan MD 06/25/2019 1:37 PM * Izabella Contreras, VAULT MANAGER - 06/25/2019 10:15 AM EST PT out in TV lounge, dressed appropriately, pleasant in spirits when engaged in conversation with this keno writer / runner. PT shared that he was not able to attend group at this time due to Dr. Egan meeting with him in few minutes, to which this interaction did take place with his doctor. * Judi Joshua RN - 06/25/2019 8:05 AM EST 0805 pt is sitting in the dining area, controlled. Pt's appetite is good., pt was compliant with the taking of his meds. Pt did contract for safety. Pt agrees to seek out the staff should he need assistance. Pt was encouraged to attend all of his groups, and to work on the learning of new and better positive coping skills. Pt agrees to talk more to the staff in a 1-1 r/t his thoughts, feelings, and his stressors. Pt was encouraged to journal his feelings, and to set his daily tx related goals for himself. Pt is alert and oriented x3. Pt did his own ADL's this day. Pt voices that he feels much better., emotional support was given to the pt. Pt offers little in the means of verbals. Pt watch es tv in his free time. Pt was encouraged to use his positive affirmations this day, and to report back to the staff with how affective this was for him. The pt voices that he understands. No c/o's. 1030 pt is on the lounge, controlled. Pt is watching tv. Quiet. Again--emotional support was given to the pt. 1230 pt's appetite is good. Pt did not have visitors over the lunch hour, again--the pt was encouraged to journal his feelings. No c/o's. 1330 pt is resting in the bed in his room with eyes closed and resp reg. Without noted distress or discomfort. * Zhanna Alvarez RN - 06/25/2019 5:53 AM EST Patient resting quietly in bed with eyes closed. Respirations even and easy. No voiced complaints. Slept 9 hours * Jazmin Parker RN - 06/24/2019 8:21 PM EST 1900: Patient transferred from the C unit, he is calm, quiet. He sits in lounge watching tv for a while with peers before going into his room to lay down. He says he has a headache. Administered motrin for relief. 2015: patient is laying in bed awake, eyes closed. Refused snack at this time. 2330: Patient is sleeping quietly * Brianne Nguyễn LPN - 06/24/2019 6:29 PM EST 1815 Pt ambulated over from unit C accompanied by Theo Palacios - going to room 3318 bed 1 - medications and chart left at desk .Staff introduced to pt - pt oriented to call light and unit . Pt sittingout in lounge . Special precautions - every fifteen minute checks continue for safety . Pt instructed to seek out staff for any questions or concerns 1944 voiced lower back pain 7 / 10 scale medicated with motrin 600 mg ,po * Archana Egan MD - 06/24/2019 6:15 PM EST Psychiatry Progress Note Patient Name: Maryse Mak Admit Date: MR #: [id number] : 1955 Perpetual Assessment Maryse Mak is a 64 y.o. male presenting with alcohol and cocaine withdrawal, depressed mood, suicidal thinking Diagnosis & Plan/Recommendations Nervous and Auditory * Psychoactive substance-induced mood disorder (HCC) Assessment & Plan A: Mr. Mak is through with his detox. Mood is stabilizing back on his medications. No suicidal thoughts. Now more active in therapies. Attitude more positive. P: Continue current medications Continue individual and group therapies Comorbid issues impacting my care plan include HTN and COPD. Following for depressed mood and suicidal thinking Interval History: Mr. Mak continues to improve. He is now active in his therapies. Hopes to transition to [facility]. Expressing a desire to get clean and sober for good. Review of Systems: Constitutional, cardiac, pulmonary, neurologic, musculoskeletal, GI and systems reveiwed and negative except as noted above Physical Examination: Vital Signs: BP 119/85 (BP Location: Left arm, Patient Position: Sitting) Pulse 77 Temp 98.1 F (36.7 C) (Oral) Resp 16 Ht 6' 1 Wt 112 kg (247 lb) SpO2 96% BMI 32.59 kg/m Mental Status Evaluation: General Appearance & Behavior: age appropriate, pleasant, cooperative, good eye contact Grooming & Hygiene: street clothes Psychomotor Activity: no psychomotor abnormalities or muscle atrophy noted Gait & Station stable gait and ability to rise from bed/chair without assistance Speech: normal rate, rhythym, volume, and spontaneity Flow of Thought: linear and goal directed Thought Associations: Intact Content of Thought: No evidence of suicidal ideations/homicidal ideations/psychosis Mood: okay Affect: euthymic Insight: intact Judgment: intact Orientation: alert and oriented to person, place, time, and circumstances Memory: intact recent and remote Attention: intact Concentration: reduced Language: fluent Fund of Knowledge: estimated average intelligence Laboratory and Additional Data Reviewed: Laboratory 06/24/19 6:19 PM Medications 06/24/19 6:19 PM Transcriptions 06/24/19 6:19 PM Treatment options and alternatives reviewed with patient. Risks, benefits, side effects of all psychiatric medications discussed with patient and informed consent obtained. All questions were answered. Archana Egan MD 06/24/2019 6:15 PM * Suzanne Patel RN - 06/24/2019 4:16 PM EST 1600: Pt resting quietly in bed with even and unlabored respirations. 1645: Pt up for dinner. Pt casual, pleasant, controlled, cooperative, and makes appropriate eye contact. Pt reports has stayed out of bed more today than yesterday. Encouraged pt to continue to stay out of room. Pt agreeable. Pt sits in dining area to eat dinner. Pt denies SI/HI/AH/VH and contractsfor safety. Pt reports day going okay. Pt denies anxiety and depression today. Pt still remains hopeful due to working on getting housing. Pt appetite and sleep are good. Pt denies pain or needs atthis time. Will continue to monitor. 1730: Pt resting quietly in bed with even and unlabored respirations. 1810: Transferred pt to [facility]. Report called to Jazmin BETTENCOURT. Oriented pt to unit. Encouraged pt to stay awake and out of room until bed time. Pt verbalizes understanding and intent to do so. Pt does agree did not come out of room while on B33C due to certain loud peers. Left pt sitting in dining area watching tv with peers. * Izabella Contreras, VAULT MANAGER - 06/24/2019 9:50 AM EST [phone] Pt out in lounge, dressed appropriately, willing to attend and was escorted to [facility] for group. Pt completed daily goal sheet without difficulty sharing that he was feeling level this datedue to I am trying to not be too high or too low because if I can stay in the middle somewhere that is what works best for me. Pt shared about BiPolar Dx and Hx. PT shared about current issues and situation for Dc, housing and follow up care. Pt could be slightly pressured at times. Pleasant in attitude and demeanor. Pt spoke positively of desire for sobriety and success with follow up mental health care. PT set goal for the day of keep feeling level so I don't get emotional. * Leida Justice RN - 06/24/2019 7:45 AM EST VS taken. Quietly resting in bed. 0856 Continues to rest in bed. AM meds reviewed and was med compliant. Rates his depression and anxiety 5/10, Not real bad. Contracts for safety. Remains focused on the bruising sustained in the ER, saying he is going to get an Press Writer to get to the bottom of it. I deserve answers. Says has had 17 surgeries and has never had bruising like that.His goal for the day is to relax and eat plenty.' Laughed as said he has eaten alex much here. Says his goal for tomorrow is to have a spiritual dayand to focus on himself and Anthony. 0945 [address] and dressed in street clothes, watching tv in the lounge. 1400 Eating snack and watching tv with peers in the lounge. Calm with relaxed body posture. * Stan Phan RN - 06/24/2019 3:25 AM EST 0030 Has been awake intermittently to this point, when awake has been pleasant, appropriate, non-delusional in conversation, good eye contact, neat, casual appearance 0615 Has rested fair overnight, awake several times, during interactions is pleasant, non-delusional in thought and conversation appropriately social with staff and peers * Suzanne Patel RN - 06/23/2019 4:24 PM EST 1615: Pt resting quietly in bed with even and unlabored respirations. Will continue to monitor. 1829: Pt continues to rest quietly in bed with even and unlabored respirations. 1999: Pt resting quietly in bed. Woke pt for snack. Pt casual, pleasant, low energy, controlled, cooperative, and makes appropriate eye contact. Pt reports sleeping most of day and believes it's due to taking prn atarax last night to help with sleep. Pt denies wanting it tonight because wants to beawake more. Pt denies SI/HI/AH/VH and contracts for safety. Pt reports mood is better due to talking with social worker clinical about housing. Pt states Hopefully I can have my own apartment in the next couple of months and get off the street. Pt denies anxiety and depression today. Pt appetite is good. Pt denies pain or further needs at this time. Pt ambulates to [facility] after receiving pizza snack to watch tv. Pt reports wanting night medication later tonight so able to stay up for a while. Talked about activity and pt agrees wants to be up more during the day tomorrow. 2129: Pt continues to watch tv in [facility] at this time. 2209: Pt ambulating unit with even and steady gait. Pt states I'm just trying to move around as much as I can. Pt requests taking night medication as late as possible so can stay awake. Pt agreeable to taking medication after nurse to nurse report around 2330. Pt denies pain or needs at this time. Will continue to monitor. * Archana Egan MD - 06/23/2019 2:34 PM EST Psychiatry Progress Note Patient Name: Maryse Mak Admit Date: MR #: [id number] : 1955 Perpetual Assessment Maryse Mak is a 64 y.o. male presenting with alcohol and cocaine withdrawal and suicidal thinking. Diagnosis & Plan/Recommendations Nervous and Auditory * Psychoactive substance-induced mood disorder (HCC) Assessment & Plan A: Mr. Mak is through with his detox. Mood is stabilizing back on his medications. No suicidal thoughts. Now more active in therapies. P: Continue current medications Continue individual and group therapies Comorbid issues impacting my care plan include hyperlipidemia, cardiovascular disease, COPD, non-adherence, substance use and homelessness. Following for mood disturbance, suicidal thinking Interval History: Mr. Mak is regretting his relapse and intends to get involved with an SA recovery group when discharged. Depression improved. Denies suicidal thoughts. Review of Systems: Constitutional, cardiac, pulmonary, neurologic, musculoskeletal, GI and systems reveiwed and negative except as noted above Physical Examination: Vital Signs: BP 126/81 Pulse 99 Temp 97.8 F (36.6 C) (Oral) Resp 14 Ht 6' 1 Wt 112 kg (247 lb) [id number]% BMI 32.59 kg/m Mental Status Evaluation: General Appearance & Behavior: age appropriate, pleasant, cooperative, good eye contact Grooming & Hygiene: neat and clean Psychomotor Activity: no psychomotor abnormalities or muscle atrophy noted Gait & Station stable gait and ability to rise from bed/chair without assistance Speech: normal rate, rhythym, volume, and spontaneity Flow of Thought: linear and goal directed Thought Associations: Intact Content of Thought: No evidence of suicidal ideations/homicidal ideations/psychosis Mood: depressed Affect: euthymic Insight: intact Judgment: intact Orientation: alert and oriented to person, place, time, and circumstances Memory: intact recent and remote Attention: intact Concentration: intact Language: fluent Fund of Knowledge: estimated average intelligence Laboratory and Additional Data Reviewed: Laboratory 06/23/19 2:38 PM Medications 06/23/19 2:38 PM Transcriptions 06/23/19 2:38 PM Treatment options and alternatives reviewed with patient. Risks, benefits, side effects of all psychiatric medications discussed with patient and informed consent obtained. All questions were answered. Archana Egan MD 06/23/2019 2:34 PM * Lee Schmid MSW LSW - 06/23/2019 2:10 PM EST Reviewed patient's case with Dr. Egan. Patient is making gradual, steady progress with symptom management. Dr. Egan estimates that patient will be ready for discharge in 2-3 days. Met with patient on unit to monitor treatment progress. Patient has been compliant with meds but not yet attending group therapies. He is aware of multiple stressors that he must resolve once he leaves the unit and is willing to work with treatment providers at [facility] to resolve these stressors. He is hopeful for a step down bed on the crisis unit to assist in this process. He is aware that he might be able to transition to [facility] from the crisis unit as well. He is open to any options that will help me. We did determine that patient's vehicle is still in the ED parking lot (not yet repo'd) which means that patient can make a payment on it once he is discharged and can repair it once his check comes in at the end of the month, which is a relief to him. MATTHEW printed off the treatment plan update and presented it to the patient for review and signature. The patient reviewed the treatment plan update and signed. MATTHEW placed the treatment plan update in the patient's chart. A treatment plan update will be due on 06/30/19. financial services technician will continueto follow and assist with discharge planning. * Xochilt Merchant CTRS - 06/23/2019 1:00 PM EST Recreation Therapy: PT shaving and declined to attend group stating not right now. * Rob Ballard RD - 06/23/2019 10:42 AM EST Nutrition Care Initial Assessment Reason for visit: Dietitian Screen Nutrition Diagnosis: make healthy food choices related to needs as evidenced by menu completion. Nutrition Intervention: meal rounds Meal and Snacks Nutrition Prescription: Diet: regular Nutrition Goals: PO intake > 75% most meals Start Date:06/23/2019 Expected End Date:06/29/2019 Nutrition Education: No needs at this time Assessment: Pertinent clinical information: major depression Past Medical History: Diagnosis Date Arthritis Chronic back pain Clotting disorder (HCC) DVT Coronary artery disease moderate stenosis of LAD and mild plaque in other vessels Hyperlipidemia Hypertension Height: 6' 1 Current weight: 112 kg (247 lb) BMI Body mass index is 32.59 kg/m . Weight hx: stable Wt Readings from Last 5 Encounters: 06/21/19 112 kg (247 lb) 04/17/19 90.7 kg (200 lb) 04/15/19 90.7 kg (200 lb) 12/09/18 99.8 kg (220 lb) 05/30/18 101.2 kg (223 lb 1.7 oz) Current diet order: regular Recent intake: 75%. Current intake Likely meets estimated needs. Difficulty Chewing/Swallowing: No Skin Integrity: Intact GI Function: WNL Physical Appearance: no signs or symptoms of malnutrition Nutrition Focus Physical Exam Type: Visual Labs: No results for input(s): NA, K, BICARB, CL, GLUCOSE, BUN, CREATININE, MG, PHOS in the last 72hours. Scheduled Meds: aspirin 81 mg Oral Daily folic acid 1 mg Oral Daily lisinopril-hydrochlorothiazide (ZESTORETIC 20/12.5) combination tablet Oral Daily loratadine 10 mg Oral Daily mirtazapine 15 mg Oral Nightly multivitamin 1 tablet Oral Daily risperiDONE 1 mg Oral BID triamcinolone Topical BID Continuous Infusions: Estimated Energy Needs Total Energy Estimated Needs: 2200-2400kcal Method for Estimating Needs: 25kcal/kg adj Total Protein Estimated Needs: 90gm Method for Estimating Needs: 1.0gm/kg adj Ed MS Elio, RDN, LD Dietitian Office * Xochilt Merchant CTRS - 06/23/2019 9:45 AM EST Goal/Life Skills: Pt declined group this morning. Pt states he had a headache. His mood was calm and controlled as he rested in bed. * Tamie Andrews RN - 06/23/2019 9:10 AM EST 0900 Pt was up and ate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 [facility] after being discharged from here last admission. Pt did not follow through. He reports that he has been off his meds for 4-5 days. Patie nt agreeable to follow up with [facility]; ISHMAEL signed and on chart. Referral called to Timothy Morelos; awaiting appt; added Catalyst to AVS.. Safety Plan will need completed prior to discharge d/t patient not being ready to complete. Patient remains Voluntary at this time. Initial treatment plan completed; signed and copy on chart. Prior hospitalizations are multiple with last admission here; see chart tab for information. Case discussed with and SG Lau. No other immediate dischargeneeds identified at this time. financial services technician to follow. LUCERO Kirkland * Vesna Ding RN - 06/20/2019 8:29 AM EST 0800 Woke pt for breakfast. Pt resting in bed. CIWA- 5. Low energy. Pt behavior is calm and cooperative. Little to no eye contact. Speech slurred at times. Talking quietly. Pt dressed only in shorts.Appears disheveled. No body odor noted. Pt rates anxiety and depression 0/10. Denies SI/HI/H. No delusions observed. Contracts for safety. Pt states he is tired but did sleep well. Pt appears have fair appetite. Pt states he has pain in his gums. Does not request pain medication. Denies any needs at this time. Will continue to monitor. 1200 CIWA- 8. Pt medicated with 1mg Ativan per physician orders. Pt is calm and cooperative. Red area noted on pt chest going down toward arms. Pt is not sure if it is new or not. States it itches near axilla area. Note left on communication sheet for Alexandria Corey CNP. Pt signed for new medication order, Magic Mouthwash. 1340 Pt given PRN magic mouthwash per physician orders. . 1420 Pt signed medication consent for new medication orders. Pt requested and was given fresh waterand lee kristine. 1445 Pt resting in bed. Respirations even and non labored. * Ang Mueller RN - 06/20/2019 1:56 AM EST 2330 Patient is resting quietly in bed. Respirations even and unlabored. 0023 Patient is awake, popcycle and sherbet given as requested. CIWA (8) Medicated with Ativan 1 mg.as ordered. Patient complains of pain of gums and headache. No request for pain medication..Restingquietly in bed. 0200 Patient has eaten at least 6 container of ice cream this shift. Resting quietly in bed. 0400 Patient is resting quietly in bed Awaken for CIWA. CIWA (9) Medicated with Ativan 1 mg.orally and Ibuprofen 600 Mg. for complaint of headache. 0600 Patient has rested quietly approximately 47 hours to present. * Suzanne Patel RN - 06/19/2019 5:14 PM EST 1630: Pt resting quietly in bed with even and unlabored respirations. Woke pt for CIWA assessment. CIWA = 9. Pt in hospital attire, low energy, controlled, and cooperative. Pt reports having nausea and feeling off. Pt also reports having 7/10 headache. Waiting for pt dinner to be brought up to administer medications. Called Dr Egan for general orders and for possible zofran for nausea. Dr Egan to put orders in. Pt falls back asleep and continues to rest quietly in bed with even and unlabored respirations. Will continue to monitor. 1720: Pt eating dinner in bed. Pt preocupied, controlled, and cooperative. Went over all pt medications ordered. Pt signs consent for all but Trazodone due to it causing him restless legs. Pt takes all scheduled medications without problem. Pt reports eating dinner did help some with nausea. Pt more restless and fidgety at this time. PRN Ativan 1 mg provided per CIWA order. Pt requests and is provided shower supplies after interaction. Pt denies further needs at this time. Will continue to monitor. 2019: Pt resting quietly in bed with even and unlabored respirations. Pt woken for CIWA. Pt casual,preoccupied, controlled, cooperative, low energy, and makes appropriate eye contact. CIWA = 9. Ativan 1 mg PO administered per CIWA order. PRN Motrin administered for pt c/o 8/10 headache. PRN Ataraxadministered for pt c/o itching skin and anxiety. Pt reports gums feel sore. Small sore seen on pt l ower gums. Put on green sheet for nurse practitioner. Ice cream provided per pt request. Pt denies SI/HI/AV/VH and contracts for safety. Pt denies further needs at this time. Will continue to monitor. 2100: Pt resting quietly in bed with even and unlabored respirations. Will continue to monitor. 2244: Pt continues to rest quietly in bed with even and unlabored respirations. * Zhanna Alvarez RN - 06/19/2019 2:56 PM EST 13:30 Patient arrived on unit per wheelchair. Patient searched by Stacy Corey RN. Patient states he is sleepy from all the medications. Denies any suicidal or homicidal thoughts at present time. Patient able to contract for safety at present time. States he hears occasional voices. Assessment completed while patient rested in bed. CIWA score - 5. States he has a moderate headache and hears occasional voices. States he has been living in his car. States he has been off his medications. Denies any suicidal or homicidal thoughts at present time. States he did feel suicidal and homicidal in the emergency room. Encouraged patient to voice his needs to staff. Patient states his gums have been sore for a couple days; states he has no clue why his gums are sore. 1450 Resting quietly in bed with eyes closed. Respirations even and easy. No voiced complaints at this time. * Stacy Corey RN - 06/19/2019 1:43 PM EST 1333: Arrived to unit via wheelchair accompanied by one protective biomedical field service engineer and 1 ER staff. Voluntary admission verified, pt belongings placed at nurse's station to be inventoried. Admitted toroom 3300. Contraband check complete X2 staff. Oriented to room at this time. Pt tense, cooperative. * Lee Robin LISW - 06/19/2019 1:10 PM EST Met with Patient per Dr Hernandes, ED doctor request. Pt verbalizes suicidal thoughts with plan to overdose. Pt reports feels could become homicidal if pushed. Pt reports hearing voices telling him to kill himself. Pt reports off medications for 5-6 days. Pt discussed with Dr Egan who orders admission to . Updated Dr Moe and SG Brewer. * Henry Chavez LISW-S - 06/18/2019 11:05 PM EST Case received in transfer. Pt remains asleep at this time. MATTHEW called ED RN, Ludy, who reports she will call this keno writer / runner when pt awake and able to be assessed. Following case. STEPHANIE Su * Marivel Main LSW - 06/18/2019 5:22 PM EST Patient (Pt) was medicated and is currently sleeping. This worker will attempt to speak with Pt once he is awake. documented in this encounter* Tim Pace RN - 08/09/2020 10:25 AM EDT P Quality Flow/Interdisciplinary Rounds Progress Note Quality Flow Rounds held on August 09, 2020 Disciplines Attending: Bedside Nurse, Vp Human Resources, Teachers' Aide and Nursing Unit Leadership Maryse Mak was admitted on 08/08/2020 2:36 PM Anticipated Discharge Date: Disposition: Hua Score: Hua Scale Score: 23 Readmission Risk Risk of Unplanned Readmission: 9 Discussed patient goal for the day, patient clinical progression, and barriers to discharge. The following Goal(s) of the Day/Commitment(s) have been identified: labs report results Tim Pace August 09, 2020 documented in this encounter Discharge Instructions * Attachments The following attachments cannot be sent through Care Everywhere. * Cellulitis (Canadian) documented in this encounter* Discharge Instr - Care Coordination* Jenny Lockwood LISW - 06/19/2019 1:52 AM EST Methadone/Suboxone Clinics [facility] [address] [address] or [phone] Dr. Sutherland (no referral needed) [address] [place] [address] Dr. Carranza (no referral needed) [address] [place], [place] [id number] Dr. Guadalupe (need to be in counseling first) [address] [facility] [address] [place] [address] Dr. Byrnes [address] [place], [place] [address] Behavioral Health Services [facility] [phone] 24 hour crisis hotline [phone] or [phone] [facility] Mental Health and Recovery Services Board Help with Mental Illness and Addiction In an EMERGENCY please call HELPLINE: [phone] (H.E.L.P.) u.sit [phone] Offering mental health assistance for all ages and comprehensive programs for substance abuse, vocational rehab, hearing impairments, and crisis intervention including a 24-hour helpline and warmline (936-067-UFCL), PeerSformerly [facility] Services/OASIS Club consumer drop-in center. Clients may be referred or self-admit we accept all payer sources andoffer financial assistance. Brevado is constantly evolving to meet community needs. [place] Locations: [address] [facility] [address] [facility] [address] [place] [address] Community Action for Capable Youth (CACY) [phone] Providing effective on-site tobacco, alcohol, problem gambling, violence and drug and suicide prevention education, information and coordination services for pre-school age through senior years. Individual and group tobacco cessation services available by appointment. Topic based prevention training available for community members. [place] Location: [address] [address] [facility] [phone] Offering comprehensive mental health and addiction outpatient services for adults and youth, including: assessments, counseling, and case management services. Clients may be referred or self-admit we accept all payer sources andoffer financial assistance. [place] Locations: [address] [facility] [address] [place] [address] National [place]t on Mental Illness (BERNIE) [phone] (N.A.M.I.) Offering support groups, education and advocacy for individuals, families and care givers of those living with mental health issues. All BERNIE classes and support groups are free to the public so you never have to feel alone in your journey to recovery! Please call! [place] Location: [address] [place] [address] [facility] [phone] Outpatient Services specializing in Medication Assisted Treatment; Mental Health specializing in Adolescent Care and AOD/Mental Health Dual Diagnoses; AOD Prevention Services; [facility] Ex-Offender Program; Help Me Grow for New Mothers; we accepts all payer sources including some private insurance. Our clients can self-admit, be court ordered, or referred by other agencies. [place] 400 [facility] 91 [facility] [address] Location: [address] [address] [place], [place] [address] [place], [place] [address] [place], [place] [address] [facility] [phone] We offer Behavioral Health Assessments, Counseling and Medication Assisted Treatments. Accepting Medicaid, Medicare, Insurance and Self Pay. [place] [address] 31 [facility] [address] [place] [address] [address] [facility] [address] [place] [address] 200 Locations: [place], [place] [address] [place], [place] [address] [place], [place] [address] [place], [place] [address] [place], [place] [address] [facility] [phone] Services offered are: Medication Assisted Treatment, Mental Health and Drug and Alcohol Counseling for groups and individuals. Weekend and evening hours available. Individual counseling for trauma, sexual abuse, addiction, depression and anxiety. Processing groups using physical movement (yoga and drumming) and art. Additional groups: #metoo; women's group, 12 step groups, spirituality group, and couples group. Medicaid and most insurances accepted. [place] Locations: [address] [place], [place] [address] Just need to talk, but you are not in crisis? Call the Warmline at [phone] For more information call [phone], email [email or web address] or go to [email or web address] [facility] Residential: [phone] or Outpatient: [phone] Residential facility provides mental health, substance use, and Juvenile Sex Offender treatment to adolescent boys. Outpatient site provides substance use, mental health and in-home services for adolescents, adults and families. Accredited by The Joint Commission. Medicaid, personal insurances and community or self referrals are accepted. [place] Locations: [address] [facility], [address] [place], [place] [address] [place], [place] [address] [facility] [phone] [facility] certified drug and alcohol treatment program that provides concurrent intensive counseling services within safe and secure housing for adult men and women. The majority of clients are court referred/ordered; butprivate pay individuals are accepted. We accept Medicaid and self-pay. No insurances accepted. [place] Location: [address] [place], [place] [address] [employer] [phone] The [place] [facility] offers treatment foster care in addition to outpatient counseling and psychiatric services. The focus of treatment is trauma specific in addition to treating all other mental health diagnosis. [place] Location: [address] [address]37307 [facility] [phone] Secure Residential Treatment Facility for males and females ages 11 to 18. We offer treatment for mental health, addiction, survivors of human trafficking, teens, and self-injurious behavior. We accept all insurances. We accept agency and parental referrals. [place] Location: [address] [place], [place] [address] [facility] [phone] Non-profit Providing access to high-quality comprehensive home health care to promote health, independence and dignity to those living within the communities we live and serve. Services include behavioral health, long-term care, physical and occupational therapy, speech therapy, home care aides and private duty services. Call us 07/12 at [phone] to request services or for more information. [place] Location: [address] [phone] Providers [facility] [phone] Outpatient counseling, medication management, and psychological testing. Accepting CareSource and private insurance. Selfreferral. [place] Location: [address] [facility] [place], [place] [address] [employer] [phone] A biblically based, Pavan-centered recovery program, designed to rescue, recover, and restore those in addictive behaviors with the power of the hidden life found only in [facility]. RU is an addiction recovery class that started in [place], [place], and offers residential help for addicted men and women that has now expanded into churches, prisons, and online resources across [facility] and around the world. [place] Location: [address] [place] [address] [facility] Project of [facility] [phone] or [phone] Provide guidance on treatment options for those struggling with addictions and life-controlling problems. We change our community by supporting individuals and their families for a healthy life of recovery. Scholarshipsfor ruth-based programs are available. Project One [phone] Ruth based Family and recovery advocates. We hold a Recovery Road service every Wednesday at 6:[address] @ [facility] [address] [address], [place], [place]. We have a 07/12 Advocate line [phone] that helps with treatment options and support from those that have personal experience with overcoming addiction or family members that are struggling emotionally. Find us on Facebook @ [email or web address] Dr. Alan Byrnes Office [phone] [address] [place] [address] Dr. Micah Hernandes Office [phone] [address] [place] [address] Dr Sheree Whittaker [address], [place] [address] Dr Dav Cardenas [[address] [place] [address]] [address] [place] [address] [facility] [address] [place] [address] Visit Website Services: [place]: to provide life-sustaining services to the homeless and empower them to become contributing members of their community. Emergency usp: 20,565 nights of lodging Meals: 61,695 Clients Served: 702 Rent assistance program Job training program [facility] [employer] [address] [place], [place] [phone] Services: Reaching the homeless, the usp serves transient or local individuals and families. Residents are given case management, counseling and material assistance Hours: 24 hours a day, 365 days a year Eligibility: No admission to anyone under 18 without a guardian; Does not accept sex offenders; Must not be under the influence of alcohol or drugs at time of check-in. Additional Services: Homeless Residential For Families, Homeless Residential For Single Adults Documents To Bring: Photo I.D.; Parents or guardians bringing children to the usp must show proof of legal guardianship. Genius is one percent inspiration and 99 percent perspiration. -- Abigail Del Rosario Community Action Commission [facility] [address] [place] [address] Services: Provides housing for homeless individuals, couples, and families. Housing is provided in furnished apartments located in a number of different communities. Families will be housed together. Hours: M-F: 8:00am-4:30pm for intake. Residential: 24 hrs a day, 7 days a week Eligibility: Residents of [facility] who are homeless. Prioritizes families with children. Additional Services: Homeless Residential For Couples, Homeless Residential For Families, Homeless Residential For Single Adults Documents To Bring: Proof of homelessness: agency referral, [place] letter, eviction notice, statement from landlord or other people clients had been living with. In this game, by trying to win; you automatically lose. -- Ann Viveros Community Action Commission [address] [place] [address] [facility]. [address]. [address] [place] [address] Services: Provides housing for homeless individuals, couples, and families. Housing is provided in furnished apartments located in a number of different communities. Families will be housed together. Hours: M-F: 8:00am-4:30pm for intake. Residential: 24 hrs a day, 7 days a week Eligibility: Residents of [facility] who are homeless. Prioritizes families with children. Additional Services: Homeless Residential For Couples, Homeless Residential For Families, Homeless Residential For Single Adults Documents To Bring: Proof of homelessness: agency referral, [place] letter, eviction notice, statement from landlord or other people clients had been living with. Appreciative words are the most powerful force for good on earth! -- Ariel Jimenez Of [facility] [address] Services: Offers a 100-bed dormitory for homeless men who would otherwise spend their nights on the streets. Assists clients with clothing, food, laundry, showers, information and referral, Yazidi counseling, and finding employment. In addition, offers education regarding health and nutrition, parenting, GED study, and computer literacy. Drug screening and referral available for those in recovery. Hours: 24 hours a day, 7 days a week Eligibility: Serves adult males. Additional Services: Homeless Residential For Single Adults Documents To Bring: None Remember that happiness is a way of travel, not a destination. -- Pastor Newell Access [address] [place] [address] Services: Provides short term usp up to 30 days for women and women with children. Meals, laundry facilities, clothing (if available), crisis counseling and computer lab are provided. Hours: 24 hours a day, 7 days a week Eligibility: Homeless women age 18 and older and - serves single women and women with children (ages 0 through 17). Women with substance abuse issues are not required to present sober, but will be referred to an appropriate treatment/support program and will be expected to remain sober during their stay. Additional Services: Homeless Residential For Families, Homeless Residential For Single Adults Documents To Bring: None Life is not a static thing. The only people who do not change their minds are incompetents in asylums who can't and those in cemeteries. -- Mohamud Jimenez Of [facility] [address] [place] [address] Services: Provides emergency usp to single women (15 beds) and women with minor children (54 beds). On site meals, clothing, limited medical care, pastoral counseling (Yazidi oriented), educational classes, case management and advocacy are provided. Individuals may stay up to 5 days, longer arrangements can be made with the case specialist or social worker clinical. Also offers parenting classes, Bible Class, nutrition, health issues, GED acquisition, phonics, computer literacy, art therapy, group and recovery programs. Hours: 24 hrs a day/ 7 days a week. Length of stay is generally five days, but longer arrangements may be made with approval of case specialist or social worker clinical. Eligibility: Serves adult women age 18 and older and women with custody of minor children. Age limits for minor children: boys through age 11; no age limit for girls. Boys over age 11 will be placed in the [place] Program. Will not accept sex-offenders. Additional Services: Homeless Residential For Families, Homeless Residential For Single Adults Documents To Bring: None The secret of success is learning how to use pain and pleasure instead of having pain and pleasure use you. If you do that, you're in control of your life. If you don't, life controls you. -- Isaak Jimenez Of [facility] [address] [place] [address] Services: Provides emergency usp to men. On site meals, clothing, limited medical care, pastoral counseling (Yazidi oriented), educational classes, case management and advocacy are provided. Individualsmay stay up to 5 days, longer arrangements can be made with the case specialist or social worker clinical. Alsooffers parenting classes, Bible Class, nutrition, health issues, GED acquisition, phonics, computerliteracy, art therapy, group and recovery programs. Hours: 24 hrs a day/ 7 days a week. Length of stay is generally five days, but longer arrangements may be made with approval of case specialist or social worker clinical. Eligibility: Homeless men age 18 and older. Will not accept sex-offenders. Additional Services: Homeless Residential For Single Adults Documents To Bring: None We must all suffer one of two things: the pain of discipline or the pain of regret or disappointment. -- [facility] [address] [place] [id number] Services: Provides emergency usp (23 beds) and support services to men, women, and families with children. Provides a 30 day length of stay which includes case management, advocacy, information and referral. The Resident Advocate meets regularly with residents to establish a plan that includes housing, income, education or job training, couseling, financial planning, and other goals. Hours: 24 hrs. a day/7 days a week Eligibility: Single adults and families with children who are homeless or at risk of becoming homeless. Must live or plan to relocate in [facility]. Must be sober, not actively psychotic, suicidal, or homicidal. Must not have active warrants out for an arrest; and not have a violent criminal history. Can not serve sex-offenders. Additional Services: Homeless Residential For Families, Homeless Residential For Single Adults Documents To Bring: None [facility] [place], [place] Address: [address] [place] [address] [facility] [place], [place] Address: [place] [address] Residential open during months March-August [place], [place] Address: [place] [address] Provides Housing Assistance [facility] Address: [address] [place] [id number] Provides: Emergency Housing ??For over 12 years [facility] has accepted and been blessed by hundreds if not thousands of menwho are in need of a hand in reorganizing there personal affairs, we offer housing, guidance, prayer and friendship. We are currently the only usp program in a [facility] area that will houseconvicted felons, and we are continually blessed with the opportunity to do so. RETURN TO THE EMERGENCY ROOM IF -You have thoughts of killing yourself or someone else, makes threats, or attempts to kill self or someone else -You have hurt yourself and needs medical help (Call 911 if seriously hurt or if concern about an overdose) -You have more or worse mental health symptoms IF YOU NEED HELP RIGHT AWAY, CALL 911 National Suicide Prevention Lifeline Toll-free: Crisis Text Line text HOME to 371087 documented in this encounter* Attachments The following attachments cannot be sent through Care Everywhere. * Hip Arthritis (Canadian) documented in this encounter* Instructions* Chema Webber MD - 04/22/2020 Return to ED if any concerns arise. * Attachments The following attachments cannot be sent through Care Everywhere. * Pneumonia (Canadian) * Hypertension (Canadian) documented in this encounter* Attachments The following attachments cannot be sent through Care Everywhere. * Poison [place] - [place] - and [place] (Canadian) * Dermatitis (Canadian) documented in this encounter* Instructions* Brad Dowd MD - 11/11/2019 If unable to follow-up with the physician/clinic recommended above, please see an Urgent Care Clinic for re-evaluation within the same number of days. Return to the nearest emergency department at any time if there is: any new, returning or worsening symptoms Difficulty breathing, speaking or swallowing Severe sore or swollen throat Severe/worsening headache Nausea/vomiting/diarrhea that prevents staying well-hydrated (sunken eyes, dry mouth, decreased urine production) new or changing rash fever > 100.4 (or feeling like there is a high fever if you don't have a thermometer) uncontrollable shaking chills difficulty following up as recommended or any other concerns about your condition or treatment. best regards, Brad Dowd MD * Attachments The following attachments cannot be sent through Care Everywhere. * Tooth Decay (Canadian) documented in this encounter* Attachments The following attachments cannot be sent through Care Everywhere. * Headache (Canadian) * Hypertension: General Info (Canadian) documented in this encounter* Instructions* Joey Yoder DO - 08/09/2020 Follow up with pcp in 3 days for recheck bp and recheck bmp with mag level documented in this encounter Hospital Course * Joey Yoder DO - 08/09/2020 11:35 AM EDT Images from the original note were not included. Hospitalist Discharge Summary Patient ID: Maryse Mak Patient : 1955 Patient's PCP: No primary care provider on file. Admit Date: 08/08/2020 Admitting Physician: Joey Yoder DO Discharge Date: 08/09/2020 Discharge Physician: JOEY YODER DO Discharge Condition: Stable Discharge Disposition: Home History of presenting illness: He is a poor historian however he was seen in the ER with HTN on 08/02/20 with HTN and headache. He apparently had been off his home medication regimen for HTN for approximately 1 year due to substance and ETOH abuse. He was inpatient at a [facility] at the time of the ER visit for 48 days and had resumed his BP medications while there. He presented for the complaints of headache. BP on arrival was 183/123. A CT of the head and CXR were obtained and negative for acute findings. 12-lead EKG showed SB rate 40-50 bpm. Labs were unremarkable. He was given amlodipine and discharged to [facility] with referral for PCP. He saw a PCP (unknown who) in an office yesterday and labs were drawn which revealed severe hypokalemia for which he was referred to the ER. BMP was repeated in the ER and significant for K 2.9, BUN 24, Cr 1.6. His home medications include lisinopril HCTZ and amlodipine Hospital course in brief: (Please refer to daily progress notes for a comprehensive review of the hospitalization by requesting medical records) admitted for potassium supplementation Dc lisinopril/hctz secondary to hypokalemia and a bump in creatinine Add po hydralazine 25 mg tid Continue with norvasc 10 mg daily Follow up with pcp in 3 days for re-peat bmp and bp check Heart reg rate Lungs cta bilat Ext no edema Consults: IP CONSULT TO INTERNAL MEDICINE Discharge Diagnoses: htn hypokalemia Discharge Instructions / Follow up: Continued appropriate risk factor modification of blood pressure, diabetes and serum lipids will remain essential to reducing risk of future atherosclerotic development Activity: activity as tolerated Significant labs: CBC: Recent Labs 08/08/20 1428 08/09/20 0527 WBC 7.8 7.0 RBC 5.10 5.02 HGB 15.8 15.2 HCT 44.2 44.2 MCV 86.7 88.0 RDW 12.6 12.8 PLT 228 193 BMP: Recent Labs 08/08/20 1428 08/09/20 0527 NA 136 142 K 2.9* 3.1* CL 95* 100 CO2 29 32* BUN 24* 20 CREATININE 1.6* 1.1 MG 2.6 2.8* LFT: Recent Labs 08/08/20 1428 PROT 7.6 ALKPHOS 89 ALT 38 AST 40* BILITOT 0.8 PT/INR: No results for input(s): INR, APTT in the last 72 hours. BNP: No results for input(s): BNP in the last 72 hours. Hgb A1C: No results found for: LABA1C Folate and B12: No results found for: [id number], No results found for: FOLATE Thyroid Studies: No results found for: TSH, M5GPQAY, B9IIRXY, THYROIDAB Urinalysis: No results found for: NITRU, WBCUA, BACTERIA, RBCUA, BLOODU, SPECGRAV, GLUCOSEU Imaging: Xr Chest (2 Vw) Result Date: 08/08/2020 EXAMINATION: TWO XRAY VIEWS OF THE CHEST 08/08/2020 2:41 pm COMPARISON: 08/02/2020 HISTORY: ORDERINGSYSTEM PROVIDED HISTORY: SOB TECHNOLOGIST PROVIDED HISTORY: Reason for exam:->SOB What reading provider will be dictating this exam?->CRC FINDINGS: Heart size is normal. There is tortuosity of the aorta. There are no infiltrates or effusions. No acute process Xr Chest (2 Vw) Result Date: 08/02/2020 EXAMINATION: TWO XRAY VIEWS OF THE CHEST 08/02/2020 2:25 pm COMPARISON: None. HISTORY: ORDERING SYSTEM PROVIDED HISTORY: dyspnea TECHNOLOGIST PROVIDED HISTORY: Reason for exam:->dyspnea What reading provider will be dictating this exam?->CRC FINDINGS: The lungs are without acute focal process.There is no effusion or pneumothorax. The cardiomediastinal silhouette is without acute process. The osseous structures are without acute process. No acute process. Ct Head Wo Contrast Result Date: 08/08/2020 EXAMINATION: CT OF THE HEAD WITHOUT CONTRAST 08/08/2020 5:40 pm TECHNIQUE: CT of the head was performed without the administration of intravenous contrast. Dose modulation, iterative reconstruction, and/or weight based adjustment of the mA/kV was utilized to reduce the radiation dose to as low as reasonably achievable. COMPARISON: None. HISTORY: ORDERING SYSTEM PROVIDED HISTORY: headaches, elevated bp TECHNOLOGIST PROVIDED HISTORY: Has a code stroke or stroke alert been called?->No Reasonfor exam:->headaches, elevated bp Decision Support Exception->Emergency Medical Condition ([place]) What reading provider will be dictating this exam?->CRC FINDINGS: BRAIN/VENTRICLES: There is noacute intracranial hemorrhage, mass effect or midline shift. No abnormal extra-axial fluid collection. The carrera-white differentiation is maintained without evidence of an acute infarct. There is no evidence of hydrocephalus. ORBITS: The visualized portion of the orbits demonstrate no acute abnormality. SINUSES: The visualized paranasal sinuses and mastoid air cells demonstrate no acute abnormality. SOFT TISSUES/SKULL: No acute abnormality of the visualized skull or soft tissues. No acute intracranial abnormality. Ct Head Wo Contrast Result Date: 08/02/2020 EXAMINATION: CT OF THE HEAD WITHOUT CONTRAST 08/02/2020 4:21 pm TECHNIQUE: CT of the head was performed without the administration of intravenous contrast. Dose modulation, iterative reconstruction, and/or weight based adjustment of the mA/kV was utilized to reduce the radiation dose to as low as reasonably achievable. COMPARISON: None. HISTORY: ORDERING SYSTEM PROVIDED HISTORY: headache TECHNOLOGIST PROVIDED HISTORY: Has a code stroke or stroke alert been called?->No Reason for exam:->headache Decision Support Exception- >Emergency Medical Condition ([place]) What reading provider willbe dictating this exam?->CRC FINDINGS: BRAIN/VENTRICLES: There is no acute intracranial hemorrhag e, mass effect or midline shift. No abnormal extra-axial fluid collection. The carrera-white differentiation is maintained without evidence of an acute infarct. There is no evidence of hydrocephalus. ORBITS: The visualized portion of the orbits demonstrate no acute abnormality. SINUSES: The visualizedparanasal sinuses and mastoid air cells demonstrate no acute abnormality. SOFT TISSUES/SKULL: No acute abnormality of the visualized skull or soft tissues. No acute intracranial abnormality. Discharge Medications: Medication List START taking these medications hydrALAZINE 25 MG tablet Commonly known as: APRESOLINE Take 1 tablet by mouth 3 times daily potassium chloride 10 MEQ extended release tablet Commonly known as: KLOR-CON M Take 1 tablet by mouth 2 times daily for 4 doses CONTINUE taking these medications amLODIPine 10 MG tablet Commonly known as: NORVASC STOP taking these medications hydroCHLOROthiazide 25 MG tablet Commonly known as: HYDRODIURIL Where to Get Your Medications These medications were sent to [facility] - [place] [id number] Jerry Bacon - P [phone] - F [phone] [place], [place] [address]fortino Bacon, [facility] [address] hydrALAZINE 25 MG tablet potassium chloride 10 MEQ extended release tablet Time Spent on discharge is more than 35 minutes in the examination, evaluation, counseling and review of medications and discharge plan. +++++++++++++++++++++++++++++++++++++++++++++++++ Sound Physician - Hospitalist [facility] [place], [place] +++++++++++++++++++++++++++++++++++++++++++++++++ NOTE: This report was transcribed using voice recognition software. Every effort was made to ensureaccuracy; however, inadvertent computerized load out supervisor errors may be present. documented in this encounter Physical Exam Physical Exam not supported for this document type No Physical Exam Recorded Additional Source Comments Assessment & Plan Note - Rolando Constantino MD - 10/28/2017 5:20 PM EDTAssessment & Plan Note - Rolando Constantino MD - 10/28/2017 5:20 PM EDTPlan [facility] [place], Judi Malone RN - 06/25/2019 7:56 AM EST Miscellaneous Notes (unrecog nized section and content) Associated Problem(s): Cocaine Abuse The patient continues to abuse cocaine. He states it is the only way he can relieve his pain. He is actually quite honest in saying that he would likely use again. Obviously, beta keiry is not an option for this gentleman. He was blood pressure remains an issue, I would consider the addition of a calcium channel keiry. Associated Problem(s): Tobacco Abuse He was warned about the adverse consequences of persistent tobacco abuse. Associated Problem(s): CAD (coronary artery disease) He denies any anginal type chest discomfort. His long-term prognosis is exceedingly poor given his persistent tobacco abuse, cocaine abuse, risk factors, and medical noncompliance. He was warned. Associated Problem(s): HTN (hypertension) His blood pressure is poorly controlled. He is not taking any medication in almost a year. I did restart his lisinopril had chlorothiazide preparation. He was once again warned about the dangers of medical noncompliance. Associated Problem(s): Hyperlipidemia The patient is not taking statin medication.in this encounter Associated Problem(s): Cocaine abuse (HCC) He has not abused cocaine in 7 days. He is interested in seeking a treatment program. He was once again warned about the adverse consequences of persistent cocaine abuse. Associated Problem(s): Tobacco Abuse He continues to smoke a pack of cigarettes a day. He was once again warned about the adverse consequences of persistent tobacco abuse. Associated Problem(s): Hyperlipidemia He is not on statin therapy. He was given a prescription for a statin upon discharge from hospital but did not fill it. I take liberty of starting him on atorvastatin 40 mg daily. Associated Problem(s): HTN (hypertension) His blood pressure is acceptable on current medical therapy. I have asked him not to adjust his own medications. He was warned. Associated Problem(s): CAD (coronary artery disease) The patient has atypical chest discomfort. His cardiac markers were negative in hospital. He did have some subtle EKG changes in the lateral leads. I have ordered a standard stress test. He feels that he will be able to walk on a treadmill. If there is no discernible ischemia, I would continue to treat him with risk modification.in this encounter ED Attestation: Comments: - Initially the RUCHI had signed up to see this patient also. However I decided to see this patient by MYSELF ONLY. As such, an attestation note is not needed. - Please see my primary ED medical record note for complete details. Janina Bro MD ED Attending Physician documented in this encounter Problem: Mood - Altered Goal: Improved mood stability Outcome: Completed Problem: Self-esteem - Low Goal: Improved self-esteem Outcome: Completed Problem: Suicide - Risk of Goal: Able to control suicidal impulse Outcome: Partially Met Goal: Absence of self-harm Outcome: Partially Met Goal: Decrease in suicidal ideation Outcome: Partially Met Problem: Health Maintenance - Impaired Goal: Improved sleep pattern Outcome: Partially Met Goal: Adequate nutritional intake Outcome: Partially Met Problem: Mood - Altered Goal: Improved mood stability Outcome: Partially Met Problem: Self-esteem - Low Goal: Improved self-esteem Outcome: Partially Met Problem: Thought Process - Altered Goal: Improved thought processes Outcome: Partially Met Problem: Plan for Discharge Goal: Knowledge of discharge plan and instructions Outcome: Partially Met Goal: Knowledge of medication management Outcome: Partially Met Goal: Knowledge of need for follow-up care Outcome: Partially Met Problem: Violence - Risk of, Self/Other-Directed Goal: Absence of violence Outcome: Met Problem: Pain Goal: Manage acute pain Outcome: Partially Met Goal: Manage chronic pain Outcome: Partially Met Goal: Reduced pain sensation Outcome: Partially Met Goal: Achievement of comfort function goal Outcome: Partially Met Problem: Suicide - Risk of Goal: Able to control suicidal impulse Outcome: Partially Met Goal: Absence of self-harm Outcome: Partially Met Goal: Decrease in suicidal ideation Outcome: Partially Met Problem: Health Maintenance - Impaired Goal: Improved sleep pattern Outcome: Partially Met Goal: Adequate nutritional intake Outcome: Partially Met Problem: Mood - Altered Goal: Improved mood stability Outcome: Partially Met Problem: Self-esteem - Low Goal: Improved self-esteem Outcome: Partially Met Problem: Thought Process - Altered Goal: Improved thought processes Outcome: Partially Met Problem: Violence - Risk of, Self/Other-Directed Goal: Absence of violence Outcome: Partially Met Problem: Plan for Discharge Goal: Knowledge of discharge plan and instructions Outcome: Partially Met Goal: Knowledge of medication management Outcome: Partially Met Goal: Knowledge of need for follow-up care Outcome: Partially Met Problem: Suicide - Risk of Goal: Able to control suicidal impulse Outcome: Met Goal: Absence of self-harm Outcome: Met Goal: Decrease in suicidal ideation Outcome: Met Problem: Health Maintenance - Impaired Goal: Adequate nutritional intake Outcome: Met Problem: Violence - Risk of, Self/Other-Directed Goal: Absence of violence Outcome: Met Problem: Pain Goal: Manage acute pain Outcome: Partially Met Goal: Manage chronic pain Outcome: Partially Met Goal: Reduced pain sensation Outcome: Partially Met Goal: Achievement of comfort function goal Outcome: Partially Met Problem: Health Maintenance - Impaired Goal: Improved sleep pattern Outcome: Partially Met Problem: Mood - Altered Goal: Improved mood stability Outcome: Partially Met Problem: Self-esteem - Low Goal: Improved self-esteem Outcome: Partially Met Problem: Thought Process - Altered Goal: Improved thought processes Outcome: Partially Met Problem: Plan for Discharge Goal: Knowledge of discharge plan and instructions Outcome: Not Addressed Goal: Knowledge of medication management Outcome: Not Addressed Goal: Knowledge of need for follow-up care Outcome: Not Addressed Problem: Suicide - Risk of Goal: Able to control suicidal impulse Outcome: Met Goal: Absence of self-harm Outcome: Met Goal: Decrease in suicidal ideation Outcome: Met Problem: Health Maintenance - Impaired Goal: Adequate nutritional intake Outcome: Met Problem: Violence - Risk of, Self/Other-Directed Goal: Absence of violence Outcome: Met Problem: Pain Goal: Manage acute pain Outcome: Partially Met Goal: Manage chronic pain Outcome: Partially Met Goal: Reduced pain sensation Outcome: Partially Met Goal: Achievement of comfort function goal Outcome: Partially Met Problem: Health Maintenance - Impaired Goal: Improved sleep pattern Outcome: Partially Met Problem: Mood - Altered Goal: Improved mood stability Outcome: Partially Met Problem: Self-esteem - Low Goal: Improved self-esteem Outcome: Partially Met Problem: Thought Process - Altered Goal: Improved thought processes Outcome: Partially Met Problem: Plan for Discharge Goal: Knowledge of discharge plan and instructions Outcome: Not Addressed Goal: Knowledge of medication management Outcome: Not Addressed Goal: Knowledge of need for follow-up care Outcome: Not Addressed Problem: Pain Goal: Manage acute pain Outcome: Met Goal: Manage chronic pain Outcome: Met Goal: Reduced pain sensation Outcome: Met Goal: Achievement of comfort function goal Outcome: Met Problem: Suicide - Risk of Goal: Able to control suicidal impulse Outcome: Met Goal: Absence of self-harm Outcome: Met Goal: Decrease in suicidal ideation Outcome: Met Problem: Health Maintenance - Impaired Goal: Improved sleep pattern Outcome: Met Goal: Adequate nutritional intake Outcome: Met Problem: Mood - Altered Goal: Improved mood stability Outcome: Met Problem: Self-esteem - Low Goal: Improved self-esteem Outcome: Met Problem: Thought Process - Altered Goal: Improved thought processes Outcome: Met Problem: Violence - Risk of, Self/Other-Directed Goal: Absence of violence Outcome: Met Problem: Plan for Discharge Goal: Knowledge of discharge plan and instructions Outcome: Partially Met Goal: Knowledge of medication management Outcome: Partially Met Goal: Knowledge of need for follow-up care Outcome: Partially Met Behavioral Health Treatment Plan Update Date: 06/23/2019 Time: 2:07 PM Patient Name: Maryse Mak Date of : 1955 Sex: Male Patient Active Problem List Diagnosis Date Noted Alcohol abuse 06/19/2019 Homeless 06/19/2019 Mood disorder (HCC) 06/19/2019 Psychoactive substance-induced mood disorder (HCC) 06/19/2019 Cocaine use disorder, moderate, dependence (HCC) 04/17/2019 Severe episode of recurrent major depressive disorder (HCC) 04/17/2019 Cervical arthritis 11/24/2017 Tobacco Abuse 10/28/2017 Cocaine abuse (HCC) 10/28/2017 Left elbow pain 08/26/2017 Neck pain 11/11/2016 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 Carpal tunnel syndrome on left 09/24/2016 Complete tear of left rotator cuff 09/10/2016 CAD (coronary artery disease) 07/13/2016 HTN (hypertension) 07/13/2016 Hyperlipidemia 07/13/2016 Shoulder impingement 06/25/2016 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 01/03/2016 Right shoulder tendonitis 11/06/2015 Complete tear of rotator cuff 09/12/2015 Diagnosis [place] I: See current hospital problem list [place] II: Deferred [place] III: Patient Active Problem List Diagnosis Date Noted Alcohol abuse 06/19/2019 Homeless 06/19/2019 Mood disorder (HCC) 06/19/2019 Psychoactive substance-induced mood disorder (HCC) 06/19/2019 Cocaine use disorder, moderate, dependence ([facility]) 04/17/2019 Severe episode of recurrent major depressive disorder (HCC) 04/17/2019 Cervical arthritis 11/24/2017 Tobacco Abuse 10/28/2017 Cocaine abuse ([facility]) 10/28/2017 Left elbow pain 08/26/2017 Neck pain 11/11/2016 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 Carpal tunnel syndrome on left 09/24/2016 Complete tear of left rotator cuff 09/10/2016 CAD (coronary artery disease) 07/13/2016 HTN (hypertension) 07/13/2016 Hyperlipidemia 07/13/2016 Shoulder impingement 06/25/2016 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 01/03/2016 Right shoulder tendonitis 11/06/2015 Complete tear of rotator cuff 09/12/2015 [place] IV: housing problems, other psychosocial or environmental problems, problems related to legal system/crime, problems related to social environment and problems with primary support group [place] V: 41-50 serious symptoms Expected Discharge Date: ELOS: 2-3days Precautions Precautions: Suicide Patient Presenting Issues: Patient's Primary Presenting Issue Patient's Primary Presenting Issue: Suicidal Suicidal Symptoms: Ideation Suicidal Goals: elimination of suicidal thinking Days To Improvement Of Goal: 3-5 Suicidal Treatment Interventions: Medication management/evaluation, Medication education, Group psychoeduction, Handouts psychoeducation, CIWA (Clinical [facility] Withdrawal Assessment), Develop personal safety plan, Substance abuse outpatient treatment, Recovery plan Status Of Goal: Unchanged Patient's Secondary Presenting Issue Patient's Secondary Presenting Issue: Addiction Addiction Types: Alcohol, Cocaine Addiction Treatment Goals: cessation of use Days To Improvement Of Goal: 3-5 Addiction Interventions: Medication management/evaluation, CIWA (Clinical [facility] Withdrawal Assessment), Substance abuse education, Substance abuse outpatient treatment, Recovery plan Status Of Goal: Unchanged Patient's Other Presenting Issue Patient's Other Presenting Issue: Mood instablilty Mood Instability Symptoms: Depression Mood Instability Treatment Goals: stabilize mood to WNL Days To Improvement Of Goal: 3-5 Mood Instability Interventions: Medication management/evaluation, Group psychoeduction, Medication education, Handouts psychoeducation, Individual psychoeducation Status Of Goal: Unchanged Precautions Precautions: Suicide Seclusion/Restraint Date: n/a Interventions to reduce Seclusion/Restraint: n/a Patient Strengths Patient Strengths: Resourcefulness Patient Limitations Patient Limitations: Lack of stable employment, Lack of mental health linkage, Lack of stable housing Discharge Needs Anticipated Facility Type: Outpatient clinic, [facility] resource information, Residential, Community mental health, Substance abuse treatment Criteria For Discharge Criteria For Discharge: Maximum benefit obtained, Goals met Additional Comments: Patient has been compliant with meds but not yet attending group therapies. He is aware of multiple stressors that he must resolve once he leaves the unit and is willing to work with treatment providers at [facility] to resolve these stressors. He is hopeful for a step down bed on the crisis unit to assist in this process. Physician, Registered Nurse, Vp Human Resources, Adjunct Therapist included in treatment team discussion. Treatment team members present : Lee Simmons, STEPHANIE, and SG Willett Patient Signature Date Patient's Response To Treatment Plan: Vp Human Resources Signature Date Problem: Pain Goal: Manage acute pain Outcome: Met Goal: Manage chronic pain Outcome: Met Goal: Reduced pain sensation Outcome: Met Goal: Achievement of comfort function goal Outcome: Met Problem: Suicide - Risk of Goal: Able to control suicidal impulse Outcome: Met Goal: Absence of self-harm Outcome: Met Goal: Decrease in suicidal ideation Outcome: Met Problem: Violence - Risk of, Self/Other-Directed Goal: Absence of violence Outcome: Met Problem: Health Maintenance - Impaired Goal: Improved sleep pattern Outcome: Partially Met Goal: Adequate nutritional intake Outcome: Partially Met Problem: Mood - Altered Goal: Improved mood stability Outcome: Partially Met Problem: Self-esteem - Low Goal: Improved self-esteem Outcome: Partially Met Problem: Thought Process - Altered Goal: Improved thought processes Outcome: Partially Met Problem: Plan for Discharge Goal: Knowledge of discharge plan and instructions Outcome: Not Addressed Goal: Knowledge of medication management Outcome: Not Addressed Goal: Knowledge of need for follow-up care Outcome: Not Addressed Problem: Suicide - Risk of Goal: Able to control suicidal impulse Outcome: Met Goal: Absence of self-harm Outcome: Met Goal: Decrease in suicidal ideation Outcome: Met Problem: Violence - Risk of, Self/Other-Directed Goal: Absence of violence Outcome: Met Problem: Pain Goal: Manage acute pain Outcome: Partially Met Goal: Manage chronic pain Outcome: Partially Met Goal: Reduced pain sensation Outcome: Partially Met Goal: Achievement of comfort function goal Outcome: Partially Met Problem: Health Maintenance - Impaired Goal: Improved sleep pattern Outcome: Partially Met Goal: Adequate nutritional intake Outcome: Partially Met Problem: Mood - Altered Goal: Improved mood stability Outcome: Partially Met Problem: Self-esteem - Low Goal: Improved self-esteem Outcome: Partially Met Problem: Thought Process - Altered Goal: Improved thought processes Outcome: Partially Met Problem: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 [facility] DATE CREATED AUTHOR AUTHOR'S ORGANIZ ATION 09/08/2024 [facility] DATE CREATED AUTHOR AUTHOR'S ORGANIZ ATION 09/11/2024 [facility] DATE CREATED AUTHOR AUTHOR'S ORGANIZ ATION 09/12/2024 [facility] DATE CREATED AUTHOR AUTHOR'S ORGANIZ ATION 09/13/2024 [facility] DATE CREATED AUTHOR AUTHOR'S ORGANIZ ATION 01/24/2025 [facility] DATE CREATED AUTHOR AUTHOR'S ORGANIZ ATION 01/27/2025 [facility] Reason for Visit (unrecogniz ed section and content) Reason Comments Follow-up clearance for in pat ient rehab Chest Pain pt went to ER for CP that radiated down his back on 05-26-18 Reason Comments Transition Of Care 1st attempt Status Reason Specialty Diagnoses / Procedures Referre d By Contact Referred To Contact Closed Cardiology Diagnoses Chest pain, unspecified type Procedures Stress test only, exercise Rolando Constantino MD [address] [place] [id number] Reason Comments Transition Of Care 3rd attempt Reason Comments Facial Swelling Reason Comments Psychiatric Evaluation Status Reason Specialty Diagnoses / Procedures Referre d By Contact Referred To Contact Diagnoses Current mild episode of major depressive disorder, unspecified whether recurrent (HCC) Reason Comments Hip Pain Right hip pain x 1 m onth. Worse with ambulation. Denies fall or other injury Reason Comments Covid-19 Screening Reason Comments Rash Reason Comments Dental Pain Otalgia Facial Swelling Reason Comments Shortness of Breath Having trouble breat navdeep when he goes up the stairs, since march. Neck Pain Has buldging discs, and is causing him to have headaches. Fatigue Has been tired for a month and a half. Reason Comments Abnormal Lab low K+, sent by PCP Status Reason Specialty Diagnoses / Procedures Referre d By Contact Referred To Contact Diagnoses KP (acute kidney injury) ([facility]) Joey Yoder S, DO [address] [facility] [address] [place] [address] [facility] Reason Comments Establish Care Throat Did testing through [employer] Radha Borjas he thinks Cough starte 3 months ago Reason Onset Date Comments Medication Refill 01/22/2021 Reason Comments Follow-up Pain Reason Onset Date Comments Medication Refill 03/17/2021 Reason Comments Follow-up OVERDUE PER VIRA BILLINGS SEEN 03/17/2019 -sob w/ exertion, dizziness pt states he as vertigo, occasional chest discomfort, Reason Comments Chest Pain pt c/o mid anterior chest pain, onset this am Reason Comments Follow-up Intermittent chest p ain & Sob w/ exertion ED [facility] 10/21/21 - sharp/ tightness center of chest and between shoulder blades, last episode last night while smoking, lasting a few minutes comes and goes Reason Comments Establish Care CABG consult Reason Comments Establish Care CABG consult Reason Comments Evaluate Specialty Diagnoses / Procedures Referred By Contac t Referred To Contact Cardiology Diagnoses Coronary artery disease of [place] artery of [place] heart with stable angina pectoris ([facility]) PAD (peripheral artery disease) ([facility]) Maryse Melton PA-C [address] [place] [address] Jules Bowman MD [address] [place] [address] Referral ID Status Reason Start Date Expiration Date Visits Re quested Visits Authorized [id number] Closed 11/11/2021 11/11/2022 1 1 Reason Comments Follow-up S/P CABG x [address] VIRAJ [address] Eng on 11/20/21 Reason Comments Follow-up S/P CABG x [address] Eng on 11/20/21Lower back pain, hurts when coughing. Reason Comments Follow-up S/P CABG per Babita Valdez Reason Onset Date Comments Medication Refill 01/20/2022 Reason Comments Heart Problem Specialty Diagnoses / Procedures [facility] Referred To Contact Cardiac Rehabilitation Diagnoses S/P CABG x 2 Julio C Zheng PA-C [address] [place] [address] Cardio Pulm [address] [place] [address] Referral ID Status Reason Start Date Expiration Date V isits Requested Visits Authorized [id number] Authorized 11/25/2021 11/25/2022 37 37 Specialty Diagnoses / Procedures [facility] Referred To Contact Radiology Diagnoses Musculoskeletal chest pain Exertional dyspnea Essential hypertension Pure hypercholesterolemia Procedures CT CHEST W WO CONTRAST Emiliana Hernandes MD [address] [address] Referral ID Status Reason Start Date Expiration Date Visits Re quested Visits Authorized [id number] Closed 04/27/2022 05/27/2022 1 1 Reason Comments Medication Refill Reason Comments Follow-up Trouble with his [address] since surgery Reason Comments Cough New patient referral from Julio C Zheng. The patient voices a chronic cough for about a year, it can be dry or productive. Specialty Diagnoses / Procedures [facility] Referred To Contact Pulmonology Diagnoses Chronic cough Julio C Zheng PA-C [address] [place] [address] Abigail Page MD [facility] Criss Navarro [address] [place] [address] Referral ID Status Reason Start Date Expiration Date Visits Re quested Visits Authorized [id number] Closed 06/26/2022 06/26/2023 1 1 Reason Comments Fall Fell down outdoor po rch steps on Wednesday and today c/o right sided hip, rib, and knee pain Reason Comments Follow-up Reason Comments Wound Check Specialty Diagnoses / Procedures Referred By Contac t Referred To Contact Referral ID Status Reason Start Date Expiration Date Visits Re quested Visits Authorized [id number] 1 1 Reason Comments Follow-up Status post sternal rewiring with plating on August 06, [address] Nathan HollyoDisruption of closure of sternotomyStatus post sternal wound reexploration, removal of inferior plating and screws, excision of distal 10% of sternum, and limited myocutaneous flap on August 19, [address] Wood Eng Reason Comments Follow-up Sternal drain remova l Reason Comments Follow-up Patient states that his breathing has been terrible Reason Comments Follow-up Previous sternal cassandra inamyron evaluation; S/P drain removal 09/14/2022 Reason Onset Date Comments Post-op Problem 09/23/2022 Reason Onset Date Comments Medication Refill 09/28/2022 Reason Comments Follow-up Reason Comments Chest Pain Pain to left side of chest. Coughing for couple days and has increased. Reason Comments Pain Reason Comments Follow-up Patient is here for concerns. He reports when the humidity was up he was having trouble breathing. Specialty Diagnoses / Procedures Referred By Mray Ann freitas Referred To Contact Pulmonology Diagnoses Chronic obstructive pulmonary disease, unspecified COPD type (HCC) Procedures PFT spirometry pre and post bronchodilator Jacquelyn Hannon MD [address] [place] [address] Referral ID Status Reason Start Date Expiration Date Visits Re quested Visits Authorized [id number] Closed 02/07/2024 02/06/2025 1 1 Reason Onset Date Comments Medication Refill 04/19/2024 Reason Comments Follow-up ED 04/29 CP -no comp laints Reason Comments Chest Pain Pt c/o CP and SOB fo r the few days. Reason Comments Hand Pain Rt hand pain/swellin g x 2 days Reason Comments Hand Injury Specialty Diagnoses / Procedures Referred By Mary Ann freitas Referred To Contact Diagnoses Foreign body in eye Cellulitis of right hand Leukocytosis, unspecified type Flexor tenosynovitis. ambulatory dysfunction. headache Referral ID Status Reason Start Date Expiration Date Visits Re quested Visits Authorized [id number] 1 1 Reason Onset Date Comments Medication Refill 01/23/2025 Reason Onset Date Comments Medication Refill 01/22/2025 Janina Bro MD - 04/15/2019 11:52 AM Zeny Palomo E - 04/15/2019 11:42 AM Barbara Reyes RN - 04/15/2019 11:39 AM Zeny Palomo E - 06/19/2019 9:08 AM EST ED Notes (unrecognized secti on and content) [facility] ED Attending Note: NAME: Maryse Mak 64 y.o. CSN: [id number] PCP: Aylin Bunn DO History: Chief Complaint: Facial Swelling HPI: The history was obtained from the patient. Maryse is a 64 y.o. male who presents with a chief complaint of Facial Swelling. The patient is a pleasant 64-year-old male who presents from home with complaints of right-sided facial swelling. He states that yesterday morning, he was eating Portuguese fries at a fast food restaurant, and he noted that they scratched his right upper palate. He typically wears a plate in his upper palate, but has not been wearing it for the last several weeks because it has been broken. His palate and mouth felt irritated all day, with some swelling. However when he woke up this morning, he is significantly increased swelling especially in the inferior orbit. This worried him and brought him to the emergency department. He denies any fever or chills and denies any significant pain. He has no trouble swallowing, is managing his secretions without difficulty, and has no focal changes. He has no swelling of his lips or tongue. PMHx: Past Medical History: Diagnosis Date Arthritis Chronic back pain Clotting disorder (HCC) DVT Coronary artery disease moderate stenosis of LAD and mild plaque in other vessels Hyperlipidemia Hypertension PMSx: Past Surgical History: Procedure Laterality Date BACK SURGERY left arm leg sx right and left blood clots SHOULDER SURGERY FAM. Hx: Family History Problem Relation Age of Onset Heart disease Father Heart attack Father Heart attack Maternal Uncle Heart disease Maternal Uncle SOC. Hx: Social History Socioeconomic History Marital status: Single Spouse name: Not on file Number of children: Not on file Years of education: Not on file Highest education level: Not on file Occupational History Not on file Social Needs Financial resource strain: Not on file Food insecurity Worry: Not on file Inability: Not on file Transportation needs Medical: Not on file Non-medical: Not on file Tobacco Use Smoking status: Current Every Day Smoker Packs/day: 1.00 Years: 45.00 Pack years: 45.00 Types: Cigarettes Smokeless tobacco: Never Used Substance and Sexual Activity Alcohol use: Yes Comment: occasional Drug use: Yes Types: Cocaine Sexual activity: Not on file Lifestyle Physical activity Days per week: Not on file Minutes per session: Not on file Stress: Not on file Relationships Social connections Talks on phone: Not on file Gets together: Not on file Attends gnosticism service: Not on file Active member of club or organization: Not on file Attends meetings of clubs or organizations: Not on file Relationship status: Not on file Other Topics Concern Not on file Social History Narrative Not on file MEDs: Previous Medications Medication Sig aspirin 81 MG EC tablet Take 81 mg by mouth daily. lisinopril-hydrochlorothiazide (PRINZIDE,ZESTORETIC) 20-12.5 mg per tablet take 1 tablet by mouth once daily ALL: No Known Allergies ROS: Positives and pertinent negatives as per HPI. All other systems were reviewed and are negative. Physical Exam: Patient Vitals for the past 24 hrs: BP Temp Temp src Pulse Resp SpO2 Height Weight 04/15/19 1150 (!) 145/99 04/15/19 1146 97.6 F (36.4 C) Oral (!) 58 18 99 % 6' 90.7 kg (200 lb) Physical Exam Constitutional: Appearance: Normal appearance. HENT: Head: Normocephalic. Comments: There is facial swelling to the inferior orbit, in the bag under his eye on the right, and some facial swelling of the right maxilla. There is no erythema, warmth, induration or tenderness. Evaluation of the palate shows generalized erythema and swelling but no discrete abscess. The uvula, tongue and lips are not swollen and the patient has a normal voice, and is managing his secretions normally. Nose: Nose normal. Mouth/Throat: Mouth: Mucous membranes are moist. Pharynx: Oropharynx is clear. Eyes: Extraocular Movements: Extraocular movements intact. Pupils: Pupils are equal, round, and reactive to light. Neck: Musculoskeletal: Normal range of motion and neck supple. Cardiovascular: Rate and Rhythm: Normal rate and regular rhythm. Heart sounds: Normal heart sounds. Pulmonary: Effort: Pulmonary effort is normal. Breath sounds: Normal breath sounds. Abdominal: General: Abdomen is flat. Bowel sounds are normal. Palpations: Abdomen is soft. Musculoskeletal: Normal range of motion. Skin: General: Skin is warm and dry. Neurological: General: No focal deficit present. Mental Status: He is alert and oriented to person, place, and time. Mental status is at baseline. Psychiatric: Mood and Affect: Mood normal. Behavior: Behavior normal. Thought Content: Thought content normal. Judgment: Judgment normal. Laboratory & Radiological Imaging (if done): Labs Reviewed CHEM 7 - Abnormal; Notable for the following components: Result Value Chloride 111 (*) Glucose 100 (*) Anion Gap 9 (*) All other components within normal limits Narrative: The eGFR should be used for monitoring renal function only and not for medication dosing. CBC AND DIFFERENTIAL Narrative: The following orders were created for panel order CBC w/ Diff. Procedure Abnormality Status --------- ------ CBC Auto Differential[[id number]] Final result Please view results for these tests on the individual orders. CBC WITH AUTO DIFFERENTIAL CT Maxillofacial Without Contrast Preliminary Result Nonspecific subcutaneous soft tissue swelling may be related to cellulitis. No definite drainable fluid collections identified; however, the study is limited without the use of IV contrast. There is no evidence of acute fracture or dislocation. The paranasal sinuses and mastoid air cells are grossly clear. SAMANTHA/pji Workstation ID: [id number] Procedures: Procedures ED Course / Medical Decision Making: Work-up of the patient shows evidence of cellulitis but no discrete abscess with respect to the right side of his face. He was given IV clindamycin in the emergency department and will be discharged home with a prescription for clindamycin and outpatient follow-up. ED Course as of Apr 15 133 Sat Apr 15, [address] Maxillofacial Without Contrast [MC] ED Course User Index [MC] Janina Bro MD . Clinical Impression: 1. Cellulitis, unspecified cellulitis site Disposition: Patient is being discharged to home New Prescriptions clindamycin (CLEOCIN) 300 MG capsule Take 1 (one) capsule (300 mg total) by mouth 4 (four) times a day for 10 days . Janina Bro MD [facility] Emergency Department (Please note that portions of this note have been completed with a voice recognition software. Efforts were made to correct any errors, but occasionally words are mis-transcribed.) Janina Bro MD 04/15/19 1334 Bed: 33 Expected date: Expected time: Means of arrival: Comments: Triage PT Pt initial contact in XP area for possible tx. Pt with significant swelling to upper lip that goes into right eye area. Pt reports swelling began on Wednesday I usually have a partial plate but it broke so I have been eating without it. I ate some fries and it tore it up in there. It has been hurting bad and now swelling. Tamie FREEMAN with initial assessment. Pt to move to main tx area. documented in this encounter Meal tray delivered by security Patient yells into [facility] Nurse. [facility] bedside and notifies this DITCH DIGGER the patient is requesting breakfast and something for his mouth. Daniella BETTENCOURT aware. CALLED HENRY CASTRO TO INFORM HER THAT DR. HERNANDES IS GOING TO KEEP PT. HERE FOR RE-EVALUATION THIS AM. DR. CECILIO LEWIS. INFORMED PT. HE IS GOING TO D/C PT. HOME. STATES, PSYCHIATRY SAW YOU AND FELT YOU WERE SAFE TO GO HOME. PT. STATES, I DON'T SEE HOW THEY THINK I'M SAFE TO GO HOME. THAT DON'T MAKE NO SENSE. DR. HERNANDES ASKED WHERE PT. LIVED. PT. STATES, NOWHERE. MY CAR. IT'S FUCKIN' RIDICULOUS. DR. HERNANDES MENTIONED THAT THE PSYCHIATRIST FELT PT.'S SI WERE RELATED TO PT.'S SUBSTANCE ABUSE. PT. STATES, NO. IT DOESN'T HAVE ANYTHING TO DO WITH SUBSTANCE ABUSE. I DON'T SEE HOW THEY THINK I'M SAFE TO GO HOME. DR. HERNANDES SAYS WE WILL NOT D/C PT. YET; HE SAYS SINCE PT. IS STILL MENTIONING SI WE WILL HOLD HIM FOR RE-EVALUATION THIS AM. INFORMED DR. HERNANDES THAT I HAVE NOT BEEN IN A HURRY TO TRY AND D/C PT. TONIGHT BECAUSE EVEN THOUGH HE OCCASIONALLY GETS UP AND TAKES A DRINK HE DOES NOT SEEM TO FULLY WAKE UP; HIS EYES ARE HALF CLOSED, AND HE DOESN'T SEEM TO SPEAK CLEARLY. PT. ALSO FALLS BACK ASLEEP WITHIN SECONDS OF LAYING DOWN. DR. HERNANDES NODDED AND AGAIN SAID HE WILL KEEP PT. HERE FOR RE-EVALUATION. Staffed case w/Dr. Hernandes. Advised of plan for discharge once alert/awake. Advised that PSS can be re-consulted if presentation changes. Updated bedside RN re: plan for discharge when alert/awake. Requested call back from attending provider when available. Virtual PSS assessment complete and full consult to follow. Will consult on-call psychiatrist re: presentation/disposition needs. HENRY CASTRO CALLED TO SEE IF PT. AWAKE YET FOR [place]. PT. REMAINS ASLEEP. HENRY SAYS SHE IS HERE ALL NIGHT, SO CALL HER WHEN PT. IS AWAKE AND READY TO TALK. WILL DO. Virtual PSS called to see if the patient was ready to be seen. Patients nurse states that he remains somnolent. He will be assessed when alert. ALYSIA WARE CALLED HERE ABOUT SEEING PT. ATTEMPTED TO WAKE PT. UP. PT. VERY DROWSY, HIS EYES ARE HALF CLOSED WHEN HE ANSWERS ME. STATES, I DON'T WANNA TALK TO ANYONE RIGHT NOW. GIVE ME A LITTLE WHILE TO WAKE UP. INFORMED ALYSIA WARE. Patient comes to desk and asks for water and a towel. This DITCH DIGGER states that both will be provided. Patient goes back to room and stands by sink. This DITCH DIGGER brings patient towel and water and notices patient gown is wet. This DITCH DIGGER asks what happened. Patient states I had to pee. Pee noted on floor in doorway. New gown given. Patient sitting and eating in his room at this time. Xochilt from registration and Gosia from pharmacy in room, Security at bedside to get patient info. Patient apologizes to Zafar the network security administrator stating this ain't me man I'm sorry Patient then redirected to room and TV turned on to help with calming down of patient. Eva BETTENCOURT drawing patients blood at this time at the nurses station. Patient cooperative but very restless. Eva RN in to patient room to medicate at this time. Chair and bedside table removed at this for safety reasons. Patient medicated and comes out to desk and asks for a drink. Lee kristine provided per request. Patient states i'm trying to calm down but the fucking child won't leave me alone and my mouth fucking hurts. I know I need help and I know I need my medications. I'm not a mean person when I'm on my meds I really just need help. Patient grabs his bedside table and picks it up and carries it into quintana and stomps angrily to desk. Security Zafar and Pasha immediately approach patient and get him to drop the table. Patient slams table down. Rohan Bedside. Dr. Moe called over due to escalating behavior. Medications ordered and Eva BETTENCOURT attempting to give the medications. Patient Sits in bed and rocks and cusses. ED PROVIDER NOTE [facility] EMERGENCY [facility]PARTMENT NAME: Maryse Mak AGE: 64 y.o. : 1955 VISIT DATE: 06/18/2019 CSN: [id number] PCP: Aylin Bunn DO Chief Complaint Patient presents with Psychiatric Evaluation Suicidal ideation and hallucinations Mental Health Problem Presenting symptoms: bizarre behavior, hallucinations and suicidal thoughts Patient accompanied by: No body. Degree of incapacity (severity): Severe Chronicity: Recurrent Onset quality: Sudden Timing: Constant Progression: Worsening Past Medical History: Diagnosis Date Arthritis Chronic back pain Clotting disorder (HCC) DVT Coronary artery disease moderate stenosis of LAD and mild plaque in other vessels Hyperlipidemia Hypertension Past Surgical History: Procedure Laterality Date BACK SURGERY left arm leg sx right and left blood clots SHOULDER SURGERY Family History Problem Relation Age of Onset Heart disease Father Heart attack Father Heart attack Maternal Uncle Heart disease Maternal Uncle Social History Socioeconomic History Marital status: Single Spouse name: Not on file Number of children: Not on file Years of education: Not on file Highest education level: Not on file Occupational History Not on file Social Needs Financial resource strain: Not on file Food insecurity Worry: Not on file Inability: Not on file Transportation needs Medical: Not on file Non-medical: Not on file Tobacco Use Smoking status: Current Every Day Smoker Packs/day: 1.00 Years: 45.00 Pack years: 45.00 Types: Cigarettes Smokeless tobacco: Never Used Substance and Sexual Activity Alcohol use: Yes Comment: occasional Drug use: Yes Types: Cocaine Comment: pt states he is curretly using any drugs I can get my hands on Sexual activity: Not on file Lifestyle Physical activity Days per week: Not on file Minutes per session: Not on file Stress: Not on file Relationships Social connections Talks on phone: Not on file Gets together: Not on file Attends gnosticism service: Not on file Active member of club or organization: Not on file Attends meetings of clubs or organizations: Not on file Relationship status: Not on file Other Topics Concern Not on file Social History Narrative Not on file Previous Medications Medication Sig aspirin 81 MG EC tablet Take 81 mg by mouth daily. lisinopril-hydrochlorothiazide (PRINZIDE,ZESTORETIC) 20-12.5 mg per tablet take 1 tablet by mouth once daily No Known Allergies Review of Systems Psychiatric/Behavioral: Positive for hallucinations and suicidal ideas. All other systems reviewed and are negative. Patient Vitals for the past 24 hrs: Temp Pulse Resp SpO2 Height Weight 06/18/19 1455 99.4 F (37.4 C) 95 (!) 26 96 % 5' 11 99.8 kg (220 lb) Physical Exam Vitals signs and nursing note reviewed. Exam conducted with a lead technician present. Constitutional: Appearance: Normal appearance. He is normal weight. HENT: Head: Normocephalic and atraumatic. Right Ear: External ear normal. Left Ear: External ear normal. Nose: Nose normal. Mouth/Throat: Mouth: Mucous membranes are moist. Eyes: Pupils: Pupils are equal, round, and reactive to light. Neck: Musculoskeletal: Normal range of motion. Cardiovascular: Rate and Rhythm: Normal rate. Pulmonary: Effort: Pulmonary effort is normal. Abdominal: Comments: No abdominal pain complaint Genitourinary: Comments: No CVA tenderness complaint Musculoskeletal: Comments: No obvious injury deformity Skin: General: Skin is warm and dry. Capillary Refill: Capillary refill takes less than 2 seconds. Neurological: General: No focal deficit present. Mental Status: He is alert and oriented to person, place, and time. Psychiatric: Comments: Suicidal ideation and hallucinations Laboratory & Radiographic Imaging (if done): Results for orders placed or performed during the hospital encounter of 06/18/19 Urine Drug Screen Result Value Ref Range Amphetamine Screen, Urine None Detected None Detected Barbiturate Screen, Urine None Detected None Detected Benzodiazepine Screen, Urine None Detected None Detected Cannabinoid Screen, Urine None Detected None Detected Cocaine, Screen Urine Presumptive Positive (A) None Detected Methadone Screen, Urine None Detected None Detected Opiate Screen, Urine None Detected None Detected Oxycodone Screen, Urine None Detected None Detected No orders to display Procedures MDM . Clinical Impression: No diagnosis found. ED Disposition None Follow-up Information Follow-up information has not been specified. Contact information for after-discharge care Follow-up information has not been specified. Marcelo Moe DO 06/20/19 0757 Patient comes back to desk and asks Where is she at. goTenna notifies patient we are working on it she is with another patient. Zafar Phoenix also attempts to help patient calm down and patient talks over him and states Was you fucking talking to me because he (Points to [facility]) is fucking talking to me not you. If you dont shut the fuck up and sit on your lazy ass I'm going to fucking beat you. Zafar nieto [employer] stops talking puts his hands up and Pasha nieto [employer] talks to patient and tells him we don't need to be aggressive and threatening people. Patient then states This fucking asshole doesn't need to be talking to me when you're talking to me. He can shut the hell up I'm talking to you. Patient then reassured that the nurse was doing the best she would be over as soon as she can. Patient goes to room and as he is walking yells leave me alone i'm in this mess because of you. Patient appears to shove at something and stomps in room. Sits on bed and continues to rock and cuss in his room. Patient gets upset and throws chair in the room and throws the table in his room. Patient comes storming out to desk and asks where the fuck is the fucking nurse. Pasha security with patient and explains that the nurse has been contacted and is finishing up with a patient. Patient then states i'm gonna go off and flip out if she don't get me fucking meds! I came here for fucking help to calm down and get my fucking med. Pasha from [employer] again explains that we are doing what we can as fast as we can and that going off would not be a good idea it wont help the situation. Patient then stomps to room This is fucking ridiculous I need help and I need the meds. Patients shoves table in room and sits in room rocking and cussing. Patient comes out to desk and yells where is that fucking nurse. Security advises patient that the nurse is with another patient. Patient apologizes and states I'm sorry i'm trying but my fucking face is swelling me and if he would just leave me alone I'd be ok. Security lets him know we are working as fast as possible. Patient continues to ramble at least he is gone now. Last time this happened my face swelled and my eyes were shut. Security again talks with patient and asks him to be patient with us we are trying to help him. Patient again apologizes and stomps back to room cussing. Once in room patient sits in chair and resumes his rocking and cussing. Patient continues to sit on bed rocking back and forth. Patient can be loudly heard talking to someone in his room.Points fingers and yells at this person and continues to yell and cuss. No physical person present in room other than patient at this time. Patient yells from room NURSE security goes and asks patient what he needs patient requests something to calm him down. Security notifies this DITCH DIGGER who notifies the RN. Patient then stomps out of room cussing and gets to desk and yells where is the nurse. This DITCH DIGGER and security notify patient RN is aware and will be in to see him. Patient stomps back to room and cursses again. Resumes laying on bed and rocking back and forth. Patient reports being off medication for 6 days, began drinking. Auditory and visual hallucinations. Manic and aggressive on arrival. Disorganized thinking, verbalizes suicidal/homicidal ideations. documented in this encounter DEPARTMENT OF EMERGENCY MEDICINE CHIEF COMPLAINT Hip Pain (Right hip pain x 1 month. Worse with ambulation. Denies fall or other injury) MARCE Maryse Mak is a 65 y.o. male who presents with 1 month of right hip pain. It is constant. It is moderate. No trauma. It is worse with walking and with external rotation of the hip. He states that the pain is to the lateral aspect of the right hip but it does radiate to the inguinal area as well. He states he does have a history of arthritis. No fevers or chills. No numbness or tingling. No redness or swelling. No vomiting. REVIEW OF SYSTEMS Review of Systems See history of present illness. PAST MEDICAL HISTORY Past Medical History: Diagnosis Date Back pain, chronic Depressive disorder, not elsewhere classified Essential hypertension, benign Hyperlipidemia RI (myocardial infarction) Migraine SURGICAL HISTORY Past Surgical History: Procedure Laterality Date ARM SURGERY BACK SURGERY HEART CATHETERIZATION CURRENT MEDICATIONS No current facility-administered medications for this encounter. Current Outpatient Medications Medication Sig Dispense Refill aspirin (BABY ASPIRIN) 81 MG PO CHEW take 81 mg by mouth daily. lisinopril 10 MG PO TABS take 10 mg by mouth daily. naproxen 500 MG PO TABS take 1 Tab by mouth 2 times daily as needed for Pain. 30 Tab 0 oxyCODONE 80 MG PO tab SR take 60 mg by mouth 4 times daily. ALLERGIES No Known Allergies FAMILY HISTORY History reviewed. No pertinent family history. SOCIAL HISTORY Social History Socioeconomic History Marital status: Single Spouse name: Not on file Number of children: Not on file Years of education: Not on file Highest education level: Not on file Occupational History Not on file Social Needs Financial resource strain: Not on file Food insecurity Worry: Not on file Inability: Not on file Transportation needs Medical: Not on file Non-medical: Not on file Tobacco Use Smoking status: Current Every Day Smoker Packs/day: 1.00 Types: Cigarettes Smokeless tobacco: Current User Substance and Sexual Activity Alcohol use: Yes Frequency: Monthly or less Drug use: No Sexual activity: Not on file Lifestyle Physical activity Days per week: Not on file Minutes per session: Not on file Stress: Not on file Relationships Social connections Talks on phone: Not on file Gets together: Not on file Attends gnosticism service: Not on file Active member of club or organization: Not on file Attends meetings of clubs or organizations: Not on file Relationship status: Not on file Intimate partner violence Fear of current or ex partner: Not on file Emotionally abused: Not on file Physically abused: Not on file Forced sexual activity: Not on file Other Topics Concern Not on file Social History Narrative Not on file PHYSICAL EXAM Ht 1.829 m (6') Smoking Status Current Every Day Smoker Physical Exam The patient is well-developed, well-nourished, and in no acute distress. Head is atraumatic and normocephalic. Pupils are equal and reactive. Face is symmetric. Mucous membranes are moist. Neck is supple. Heart is regular rate and rhythm. Lungs are clear to auscultation. Abdomen is soft, nontender, nondistended. Skin is warm and dry. Extremities are warm and well perfused and without acute deformity. No erythema or swelling to the right hip. He does have normal range of motion, though external rotation does reproduce pain. No tenderness to the knee. Neurologically, the patient is awake, alert, and without acute deficit. Psychiatrically, the patient is calm and cooperative. ED COURSE & MEDICAL DECISION MAKING X-ray shows significant arthritic changes. The patient is established for orthopedic care with Dr. oMrgan. I will give him a trial of a short course of prednisone to help with his symptoms while he follows up with Dr. Morgan. Jeremy Chao MD 02/28/[address] Chao bed side documented in this encounter ED PROVIDER NOTE [facility] EMERGENCY DEPARTMENT NAME: Maryse Mak AGE: 65 y.o. : 1955 VISIT DATE: 04/22/2020 CSN: [id number] PCP: Physician No Chief Complaint Patient presents with Covid-19 Screening HPI Patient is a 65-year-old male present with complaints of generalized body ache flulike symptoms joint pain, nonproductive cough concerning for Covid virus wanted to be checked out. The ED he is awake alert he answers questions appropriately his speech is clear no facial droop is noted GCS is 15 initial vital systolic blood pressure 181/103 pulse is 77 pulse ox is 96% on room air he is afebrile 98.4 Fahrenheit respiratory 16 breaths/min. Patient denies fevers at home he denies midsternal chest pain chest pressure palpitation shortness of breath state that his whole body aches decreased oral intake he states that his blood pressure has been high at home denies recent changes in his hypertensive medication he denies nausea vomiting diarrhea constipation denies recent travel or hospitalization. Past Medical History: Diagnosis Date Arthritis Chronic back pain Clotting disorder (HCC) DVT Coronary artery disease moderate stenosis of LAD and mild plaque in other vessels Hyperlipidemia Hypertension Past Surgical History: Procedure Laterality Date BACK SURGERY left arm leg sx right and left blood clots SHOULDER SURGERY Family History Problem Relation Age of Onset Heart disease Father Heart attack Father Heart attack Maternal Uncle Heart disease Maternal Uncle Social History Socioeconomic History Marital status: Single Spouse name: Not on file Number of children: Not on file Years of education: Not on file Highest education level: Not on file Occupational History Not on file Social Needs Financial resource strain: Not on file Food insecurity Worry: Not on file Inability: Not on file Transportation needs Medical: Not on file Non-medical: Not on file Tobacco Use Smoking status: Current Every Day Smoker Packs/day: 0.50 Years: 45.00 Pack years: 22.50 Types: Cigarettes Smokeless tobacco: Never Used Substance and Sexual Activity Alcohol use: Not Currently Drug use: Not Currently Types: Cocaine Comment: 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 folic acid (FOLVITE) 1 MG tablet Take 1 (one) tablet (1 mg total) by mouth daily Start: 06/27/19. lisinopril-hydrochlorothiazide (PRINZIDE,ZESTORETIC) 20-12.5 mg per tablet take 1 tablet by mouth once daily loratadine (CLARITIN) 10 mg tablet Take 1 (one) tablet (10 mg total) by mouth daily Start: 06/27/19. mirtazapine (REMERON) 15 MG tablet Take 1 (one) tablet (15 mg total) by mouth nightly . risperiDONE (RISPERDAL) 1 MG tablet Take 1 mg by mouth 2 (two) times a day . No Known Allergies Review of Systems All other systems reviewed and are negative. Patient Vitals for the past 24 hrs: BP Temp Temp src Pulse Resp SpO2 04/22/20 1751 (!) 181/103 77 16 96 % 04/22/20 1750 98.4 F (36.9 C) Oral Physical Exam Constitutional: General: He is not in acute distress. Appearance: Normal appearance. He is well-developed. He is not ill-appearing or toxic-appearing. HENT: Head: Normocephalic and atraumatic. Eyes: General: No scleral icterus. Right eye: No discharge. Conjunctiva/sclera: Conjunctivae normal. Neck: Musculoskeletal: Normal range of motion and neck supple. No neck rigidity or muscular tenderness. Cardiovascular: Rate and Rhythm: Normal rate and regular rhythm. Heart sounds: Normal heart sounds. No murmur. Pulmonary: Effort: Pulmonary effort is normal. No respiratory distress. Breath sounds: Normal breath sounds. No stridor. No wheezing or rhonchi. Abdominal: General: Abdomen is flat. Bowel sounds are normal. There is no distension. Palpations: Abdomen is soft. There is no mass. Tenderness: There is no abdominal tenderness. Musculoskeletal: General: Tenderness present. Right lower leg: He exhibits no swelling. Left lower leg: He exhibits no swelling. Comments: Diffuse joint hand pain . No erythema no sign of cellulitis or infection no deformity noted. Skin: Findings: No rash. Neurological: General: No focal deficit present. Mental Status: He is alert and oriented to person, place, and time. Motor: Weakness present. Psychiatric: Behavior: Behavior normal. Laboratory & Radiographic Imaging (if done): No results found for this visit on 04/22/20. XR Chest 1 View (Results Pending) Procedures MDM Patient is a 65-year-old male presents to the ED with flulike symptoms joint pain body ache concerning for possible viral cause of symptoms for which further work-up has been initiated including a Covid swab 1 view chest x-ray for cough to rule out pneumonia. Patient Has been given oral hydralazine, Tylenol and ibuprofen. At the end of my shift my colleague Dr. Webber will follow up on labs and covid test and treat appropriately. . Clinical Impression: No diagnosis found. ED Disposition None Follow-up Information Follow-up information has not been specified. Contact information for after-discharge care Follow-up information has not been specified. Ava Hui MD 04/22/201915 Ava Hui MD 04/22/201918 Lab called and states that this pts covid 19 swab was leaking and will need recollected Pt reports 19 surgeries so he has chronic pain; pt states he has not been taking his gabapentin because he is out Pt reports he wants tested for covid 19 Pt presents to the ED today for flu like symptoms and joint-pt reports he has pain everyday but today is worse; pt also reports cough Special isolation precautions are in place with signage outside this patient's room. This hospice care consultant performs hand hygiene and enters the patient room wearing: ? gloves ? an appropriately fitting (N-95, PAPR, Aura) mask ? face shield ? protective gown to provide care. See documentation for the care provided. documented in this encounter [facility] ED RUCHI Note: NAME: Maryse Mak 63 y.o. CSN: [id number] PCP: Aylin Bunn DO History: Chief Complaint: Rash HPI: The history was obtained from the patient. Maryse is a 63 y.o. male who presents with a chief complaint of Rash. Patient states he was helping his son cut wood 2 days ago and came into contact with weeds and possibly poison angi. Reports pruritic rash that started on legs then spread to genitals and forearms. No fever, chills, chest pain, shortness of breath, abdominal pain, nausea, vomiting, diarrhea, urinary symptoms. No difficulty urinating. No rash to the face or neck. He has used calamine lotion without relief. PMHx: Past Medical History: Diagnosis Date Arthritis Chronic back pain Clotting disorder (HCC) DVT Coronary artery disease moderate stenosis of LAD and mild plaque in other vessels Hyperlipidemia Hypertension PMSx: Past Surgical History: Procedure Laterality Date BACK SURGERY left arm leg sx right and left blood clots SHOULDER SURGERY FAM. Hx: Family History Problem Relation Age of Onset Heart disease Father Heart attack Father Heart attack Maternal Uncle Heart disease Maternal Uncle SOC. Hx: Social History Socioeconomic History Marital status: Single Spouse name: Not on file Number of children: Not on file Years of education: Not on file Highest education level: Not on file Occupational History Not on file Social Needs Financial resource strain: Not on file Food insecurity: Worry: Not on file Inability: Not on file Transportation needs: Medical: Not on file Non-medical: Not on file Tobacco Use Smoking status: Current Every Day Smoker Packs/day: 1.00 Years: 45.00 Pack years: 45.00 Types: Cigarettes Smokeless tobacco: Never Used Substance and Sexual Activity Alcohol use: Yes Comment: occasional Drug use: Yes Types: Cocaine Sexual activity: Not on file Lifestyle Physical activity: Days per week: Not on file Minutes per session: Not on file Stress: Not on file Relationships Social connections: Talks on phone: Not on file Gets together: Not on file Attends gnosticism service: Not on file Active member of club or organization: Not on file Attends meetings of clubs or organizations: Not on file Relationship status: Not on file Other Topics Concern Not on file Social History Narrative Not on file MEDs: Previous Medications Medication Sig aspirin 81 MG EC tablet Take 81 mg by mouth daily. lisinopril-hydrochlorothiazide (PRINZIDE,ZESTORETIC) 20-12.5 mg per tablet Take 1 (one) tablet by mouth daily. (Patient taking differently: Take 1 tablet by mouth daily .) [DISCONTINUED] atorvastatin (LIPITOR) 40 MG tablet Take 1 (one) tablet (40 mg total) by mouth daily . ALL: No Known Allergies ROS: Positives and pertinent negatives as per HPI. All other systems were reviewed and are negative. Physical Exam: Patient Vitals for the past 24 hrs: BP Temp Temp src Pulse Resp SpO2 Height Weight 12/09/18 0542 6' 99.8 kg (220 lb) 12/09/18 0538 (!) 147/92 97.7 F (36.5 C) Oral 68 17 97 % Physical Exam Constitutional: He is oriented to person, place, and time. He appears well- developed and well-nourished. Non-toxic appearance. No distress. Sitting up in bed, no distress. Answering questions appropriately. HENT: Head: Normocephalic and atraumatic. Nose: Nose normal. Eyes: Conjunctivae and EOM are normal. No scleral icterus. Neck: Neck supple. Cardiovascular: Normal rate and regular rhythm. No murmur heard. Pulmonary/Chest: Effort normal and breath sounds normal. No accessory muscle usage. No tachypnea and no bradypnea. No respiratory distress. Musculoskeletal: Right lower leg: He exhibits no swelling and no edema. Left lower leg: He exhibits no swelling and no edema. Neurological: He is alert and oriented to person, place, and time. He has normal strength. No cranial nerve deficit or sensory deficit. Skin: Skin is warm and dry. Capillary refill takes less than 2 seconds. Rash noted. No purpura noted. Rash is urticarial. Rash is not nodular, not pustular and not vesicular. No cyanosis. Nails show no clubbing. Red, pruritic, blanchable rash to lower legs, genitalia, and forearms . No open areas. Secondary lesions from scratching. No evidence for cellulitis. Psychiatric: He has a normal mood and affect. His behavior is normal. Nursing note and vitals reviewed. Laboratory & Radiological Imaging (if done): Labs Reviewed - No data to display No orders to display MDM: Patient arrives to ER for possible exposure to poison angi after being in [place] 2 days ago. Rash started on legs then spread to forearms and genitalia with intense itching. Areas as described above without involvement of the face. No difficulty breathing. Rash pattern and evolution consistent with poison angi. Patient educated about poison angi and how to clean clothes and stop spread. Instructed to use benadryl as needed for itching. I was going to place the patient on prednisone but patient states he is unable to afford the medication unless it is free. I spoke with Dr. Teixeira and the decision to give Kenalog IM was made. Patient also given dose of benadryl in ER. Instructed patient to contact his PCP and make a follow up appointment if needed. All questions answered. Instructed to come back to ER for new or worsening symptoms. Discharged in stable condition. Clinical Impression: SNOMED CT(R) 1. Contact dermatitis, unspecified contact dermatitis type, unspecified trigger CONTACT DERMATITIS Disposition: Patient is being discharge home. \ Discontinued Medications Disp Refills Start End atorvastatin (LIPITOR) 40 MG tablet 90 tablet 3 05/27/2018 12/09/2018 Sig: Take 1 (one) tablet (40 mg total) by mouth daily . Route: Oral Reason for Discontinue: Error Annemarie Walker CNP ED Advanced Practice Provider [facility] (Please note that portions of this note have been completed with a voice recognition software. Efforts were made to correct any errors, but occasionally words are mis-transcribed.) Annemarie Walker CNP 12/09/18 0636 Pt. Reports rash following working outside 2 days ago. Itching, continues to spread. Calmazime ineffective. Visible redness noted. documented in this encounter ED PROVIDER NOTE [facility] EMERGENCY DEPARTMENT NAME: Maryse Mak AGE: 64 y.o. : 1955 VISIT DATE: 11/11/2019 CSN: [id number] PCP: Physician No Chief Complaint Patient presents with Dental Pain Otalgia Facial Swelling HPI HPI: 64-year-old male, with history of coronary disease, DVT, tobacco and cocaine use, now presenting for evaluation of dental pain and right earache. Patient reports this been going on for 3 days. Initially had some swelling of the right side of his face and lips, but that is gone down. He has been rinsing his mouth out with peroxide and Listerine. No fever. No drainage or bleeding. No trauma to the teeth or ear. No loss of hearing. Records show that he was treated with clindamycin last time, and patient reports that that worked well. Severity: Severe 9 out of 10 Location: Patient indicates it is the right lower second molar Radiating to: only as above; otherwise none* Exacerbated by: Eating or drinking Relieved by: only as above; otherwise none* Associated with: only as above; otherwise none* Historian(s) deny any other concerns. ROS negative except as above. I have reviewed and agree with the available nursing notes except as otherwise reported. I have reviewed available medical records. REVIEW OF SYSTEMS: Const: No fever Eyes: No vision change ENT: Isolated right otalgia No congestion No sore throat Dental pain CV: No CP No syncope Resp: No cough No SOB GI: No Abdo pain No nausea No vomiting : Negative except as noted in HPI MSK: Negative except as noted in HPI Skin: No rash Neuro: Nl mental status No LAWSON Hem: No bleeding/clotting problems Psych: Nl behavior except as otherwise noted PHYSICAL EXAM: Patient Vitals for the past 24 hrs: BP Temp Temp src Pulse Resp SpO2 Height Weight 11/11/19 1531 (!) 153/102 97.9 F (36.6 C) Infrared 73 18 95 % 6' 99.8 kg (220 lb) VS Reviewed. The Pulse ox is Normal* Constitutional: Non-toxic Head: Normocephalic Atraumatic Eyes: PERRL EOMi No proptosis Lids nl No hemorrhage No injection No discharge ENT: Mucus membranes moist No pharyngeal injection No oral / oropharyngeal edema No tonsillar enlargement No exudate No signs of VEHICLE ASSEMBLER / deep space infection No upper teeth remain dental caries Right lower second molar is tender to percussion and carious Mild surrounding gingivitis No dental / periodontal abscess No induration No sinus ttp No nasal congestion No significant facial swelling at this time. Lips and tongue look normal in size. Neck: Nl ROM No meningeal signs trachea midline No objective swelling No JVD No carotid bruits No stridor Tenderness Midline: NTTP Parasp: NTTP Lateral: NTTP No significant lymphadenopathy No palpable masses Cardiovascular: RRR Respiratory: No resp distress Gastrointestinal: Non-distended Genitourinary: Deferred Back Upper Extremities: Nl inspection Lower Extremities: Nl inspection No edema Neurologic: Alert answers questions appropriately no focal deficits Psych: Appropriate Skin: Warm Dry Nl color No acute/emergency findings unless otherwise specified Past Medical History: Diagnosis Date Arthritis Chronic back pain Clotting disorder (HCC) DVT Coronary artery disease moderate stenosis of LAD and mild plaque in other vessels Hyperlipidemia Hypertension Past Surgical History: Procedure Laterality Date BACK SURGERY left arm leg sx right and left blood clots SHOULDER SURGERY Family History Problem Relation Age of Onset Heart disease Father Heart attack Father Heart attack Maternal Uncle Heart disease Maternal Uncle Social History Socioeconomic History Marital status: Single Spouse name: Not on file Number of children: Not on file Years of education: Not on file Highest education level: Not on file Occupational History Not on file Social Needs Financial resource strain: Not on file Food insecurity Worry: Not on file Inability: Not on file Transportation needs Medical: Not on file Non-medical: Not on file Tobacco Use Smoking status: Current Every Day Smoker Packs/day: 0.50 Years: 45.00 Pack years: 22.50 Types: Cigarettes Smokeless tobacco: Never Used Substance and Sexual Activity Alcohol use: Yes Alcohol/week: 20.0 standard drinks Types: 20 Cans of beer per week Comment: 20 tall boy beers a day for the last several days Drug use: Yes Types: Cocaine Comment: 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 folic acid (FOLVITE) 1 MG tablet Take 1 (one) tablet (1 mg total) by mouth daily Start: 06/27/19. lisinopril-hydrochlorothiazide (PRINZIDE,ZESTORETIC) 20-12.5 mg per tablet take 1 tablet by mouth once daily loratadine (CLARITIN) 10 mg tablet Take 1 (one) tablet (10 mg total) by mouth daily Start: 06/27/19. mirtazapine (REMERON) 15 MG tablet Take 1 (one) tablet (15 mg total) by mouth nightly . risperiDONE (RISPERDAL) 1 MG tablet Take 1 mg by mouth 2 (two) times a day . No Known Allergies Review of Systems Patient Vitals for the past 24 hrs: BP Temp Temp src Pulse Resp SpO2 Height Weight 11/11/19 1531 (!) 153/102 97.9 F (36.6 C) Infrared 73 18 95 % 6' 99.8 kg (220 lb) Physical Exam Laboratory & Radiographic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 Da te potassium chloride (KLOR-CON M) 10 MEQ extended release tablet Take 1 tablet by mouth 2 times daily for 4 doses 4 tablet 0 08/09/2020 08/11/2020 hydrALAZINE (APRESOLINE) 25 MG tablet Take 1 tablet by mouth 3 times daily 90 tablet 0 08/09/2020 Prescription Sig Dispensed Refills Start Date End Da te brompheniramine-pseudoe phedrine-DM 2-30-10 MG/5ML syrup Take 5 mLs by mouth 4 times daily as needed for Congestion or Cough 50 mL 0 01/20/2023 01/25/2023 predniSONE (DELTASONE) 20 MG tablet Take 2 tablets by mouth daily for 5 doses 10 tablet 0 01/20/2023 01/25/2023 Care Teams (unrecognized sec tion and content) Owner Consulting Engineer Relationship Specialty Start Date End Date Gail Garduno CNP [address] [place] [address] PCP - General Nurse Practitioner 10/28/20 Owner Consulting Engineer Relationship Specialty Start Date End Date Gail Garduno CNP [address] [place] [address] 52265 PCP - General Nurse Practitioner 10/28/20 Owner Consulting Engineer Relationship Specialty Start Date End Date Gail Garduno CNP [address] [place] [address] PCP - General Nurse Practitioner 10/28/20 Owner Consulting Engineer Relationship Specialty Start Date End Date Gail Garduno CNP [address] [place] [address] 219[address] PCP - General Nurse Practitioner 10/28/20 Owner Consulting Engineer Relationship Specialty Start Date End Date Gail Garduno, [employer] [address] [facility] [place] [address] PCP - General Nurse Practitioner 10/28/20 Owner Consulting Engineer Relationship Specialty Start Date End Date Paulette Carballo APRN - [employer]HOST[employer] [address] [place] [address] PCP - General 10/21/21 Owner Consulting Engineer Relationship Specialty Start Date End Date Paulette Carballo [employer] [address] [facility] [place] [address] PCP - General Nurse Practitioner 10/30/21 Owner Consulting Engineer Relationship Specialty Start Date End Date Paulette Carballo [employer] [address] [facility] [place] [address] PCP - General Nurse Practitioner 10/30/21 Owner Consulting Engineer Relationship Specialty Start Date End Date Paulette Carballo [employer] [address] [facility] [place] [address] PCP - General Nurse Practitioner 10/30/21 Owner Consulting Engineer Relationship Specialty Start Date End Date Paulette Carballo [employer] [address] [facility] [place] [address] PCP - General Nurse Practitioner 10/30/21 Owner Consulting Engineer Relationship Specialty Start Date End Date Paulette Carballo [employer] [address] [facility] [place] [address] PCP - General Nurse Practitioner 10/30/21 Owner Consulting Engineer Relationship Specialty Start Date End Date Paulette Carballo [employer] [address] [facility] [place] [address] PCP - General Nurse Practitioner 10/30/21 Owner Consulting Engineer Relationship Specialty Start Date End Date Paulette Carballo CNP [address] [facility] [place] [address] PCP - General Nurse Practitioner 10/30/21 Owner Consulting Engineer Relationship Specialty Start Date End Date Paulette Carballo CNP [address] [facility] [place] [address] PCP - General Nurse Practitioner 10/30/21 Jules Bowman MD [address] [place] [address] Surgeon Vascular Surgery 11/12/21 Owner Consulting Engineer Relationship Specialty Start Date End Date Paulette Carballo CNP [address] [facility] [place] [address] PCP - General Nurse Practitioner 10/30/21 Jules Bowman MD [address] [place] [address] Surgeon Vascular Surgery 11/12/21 Owner Consulting Engineer Relationship Specialty Start Date End Date Paulette Carballo CNP [address] [facility] [place] [address] PCP - General Nurse Practitioner 10/30/21 Jules Bowman MD [address] [place] [address] Surgeon Vascular Surgery 11/12/21 Owner Consulting Engineer Relationship Specialty Start Date End Date Paulette Carballo CNP [address] [place] [address] PCP - General Nurse Practitioner 10/30/21 Jules Bowman MD [address] [place] [address] Surgeon Vascular Surgery 11/12/21 Owner Consulting Engineer Relationship Specialty Start Date End Date Paultete CarballobeJAYLEN duran [address] [place] [address] PCP - General Nurse Practitioner 10/30/21 Jules Bowman MD [address] [place] [address] Surgeon Vascular Surgery 11/12/21 Owner Consulting Engineer Relationship Specialty Start Date End Date Paulette Carballo [employer] [address] [place] [address] PCP - General Nurse Practitioner 10/30/21 Jules Bowman MD [address] [place] [address] Surgeon Vascular Surgery 11/12/21 Owner Consulting Engineer Relationship Specialty Start Date End Date Paulette Carballoromero [facility] [address] [place] [address] PCP - General Nurse Practitioner 10/30/21 Jules Bowman MD [address] [place] [address] Surgeon Vascular Surgery 11/12/21 Owner Consulting Engineer Relationship Specialty Start Date End Date Paulette Carballoromero [employer] [address] [place] [address] PCP - General Nurse Practitioner 10/30/21 Jules Bowman MD [address] [place] [address] Surgeon Vascular Surgery 11/12/21 Owner Consulting Engineer Relationship Specialty Start Date End Date Paulette Carballomason [employer] [address] [place] [address] PCP - General Nurse Practitioner 10/30/21 Jules Bowman MD [address] [place] [address] Surgeon Vascular Surgery 11/12/21 Owner Consulting Engineer Relationship Specialty Start Date End Date Paulette Carballo, [facility] [address] [place] [address] PCP - General Nurse Practitioner 10/30/21 Jules Bowman MD [address] [place] [address] Surgeon Vascular Surgery 11/12/21 Owner Consulting Engineer Relationship Specialty Start Date End Date Paulette Carballozabeth, [facility] [address] [place] [address] PCP - General Nurse Practitioner 10/30/21 Jules Bowman MD [address] [place] [address] Surgeon Vascular Surgery 11/12/21 Owner Consulting Engineer Relationship Specialty Start Date End Date Paulette Carballobeth, [facility] [address] [place] [address] PCP - General Nurse Practitioner 10/30/21 Jules Bowman MD [address] [place] [address] Surgeon Vascular Surgery 11/12/21 Owner Consulting Engineer Relationship Specialty Start Date End Date Abimael Carballogeorge Early, [facility] [address] [place] [address] PCP - General Nurse Practitioner 10/30/21 Jules Bowman MD [address] [place] [address] Surgeon Vascular Surgery 11/12/21 Owner Consulting Engineer Relationship Specialty Start Date End Date Kait JULIA Caldwell - [employer] [address] [place] [address] PCP - General 10/21/21 Owner Consulting Engineer Relationship Specialty Start Date End Date Gail Garduno, [employer] [address] [place] [address] PCP - General Nurse Practitioner 10/28/20 10/29/21 Paulette Carballo CNP [address] [place] [address] PCP - General Nurse Practitioner 10/30/21 Jules Bowman MD [address] [place] [address] Surgeon Vascular Surgery 11/12/21 Owner Consulting Engineer Relationship Specialty Start Date End Date Paulette Carballo CNP [address] [place] [address] PCP - General Nurse Practitioner 10/30/21 Jules Bowman MD [address] [place] [address] Surgeon Vascular Surgery 11/12/21 Owner Consulting Engineer Relationship Specialty Start Date End Date Paulette Carballo CNP [address] [place] [address] PCP - General Nurse Practitioner 10/30/21 Jules Bowman MD [address] [place] [address] Surgeon Vascular Surgery 11/12/21 Owner Consulting Engineer Relationship Specialty Start Date End Date Paulette Carballo CNP [address] [place] [place] [address] PCP - General Nurse Practitioner - Family 07/07/22 Owner Consulting Engineer Relationship Specialty Start Date End Date Paulette Carballo CNP [address] [place] [address] PCP - General Nurse Practitioner 10/30/21 Jules Bowman MD [address] [place] [address] Surgeon Vascular Surgery 11/12/21 Owner Consulting Engineer Relationship Specialty Start Date End Date Paulette Carballomason [facility] [address] [place] [address] PCP - General Nurse Practitioner 10/30/21 Jules Bowman MD [address] [place] [address] Surgeon Vascular Surgery 11/12/21 Owner Consulting Engineer Relationship Specialty Start Date End Date [facility] [address] [place] [address] PCP - General Nurse Practitioner 10/30/21 Jules Bowman MD [address] [place] [address] Surgeon Vascular Surgery 11/12/21 Owner Consulting Engineer Relationship Specialty Start Date End Date Paulette Carballomason [facility] [address] [place] [address] PCP - General Nurse Practitioner 10/30/21 Jules Bowman MD [address] [place] [address] Surgeon Vascular Surgery 11/12/21 Owner Consulting Engineer Relationship Specialty Start Date End Date [facility] [address] [place] [address] PCP - General Nurse Practitioner 10/30/21 Jules Bowman MD [address] [place] [phone] Surgeon Vascular Surgery 11/12/21 Owner Consulting Engineer Relationship Specialty Start Date End Date Paulette Carballo CNP 187 [place] [address] PCP - General Nurse Practitioner 10/30/21 Jules Bowman MD [address] [facility] [place] [phone] Surgeon Vascular Surgery 11/12/21 Owner Consulting Engineer Relationship Specialty Start Date End Date Paulette Carballo CNP [address] [place], [place] [phone] PCP - General Nurse Practitioner 10/30/21 Jules Bowman MD [address] [place], [place] [phone] Surgeon Vascular Surgery 11/12/21 Owner Consulting Engineer Relationship Specialty Start Date End Date Paulette Carballo CNP [address] [place], [place] [phone] PCP - General Nurse Practitioner 10/30/21 Jules Bowman MD [address] [place], [place] [phone] Surgeon Vascular Surgery 11/12/21 Owner Consulting Engineer Relationship Specialty Start Date End Date Paulette Carballo CNP [address] [place], [place] [phone] PCP - General Nurse Practitioner 10/30/21 Jules Bowman MD [address] [place] [address] Surgeon Vascular Surgery 11/12/21 Owner Consulting Engineer Relationship Specialty Start Date End Date Paulette Carballo CNP [address] [place] [address] PCP - General Nurse Practitioner 10/30/21 Jules Bowman MD [address] [place] [address] Surgeon Vascular Surgery 11/12/21 Owner Consulting Engineer Relationship Specialty Start Date End Date Paulette Carballo CNP [address] [place] [address] PCP - General Nurse Practitioner 10/30/21 Jules Bowman MD [address] [place] [address] Surgeon Vascular Surgery 11/12/21 Owner Consulting Engineer Relationship Specialty Start Date End Date Paulette Carballo CNP [address] [place] [address] PCP - General Nurse Practitioner 10/30/21 Jules Bowman MD [address] [place] [address] Surgeon Vascular Surgery 11/12/21 Owner Consulting Engineer Relationship Specialty Start Date End Date Paulette Carballo CNP [address] [place] [address] PCP - General Nurse Practitioner 10/30/21 Jules Bowman MD [address] [facility] [place] [address] Surgeon Vascular Surgery 11/12/21 Owner Consulting Engineer Relationship Specialty Start Date End Date KaitAbimaelgeorge Early CNP [address] [place] [address] PCP - General Nurse Practitioner 10/30/21 Jules Bowman MD [address] [place] [address] Surgeon Vascular Surgery 11/12/21 Owner Consulting Engineer Relationship Specialty Start Date End Date Paulette velazco JAYLEN Early [address] [place] [address] PCP - General Nurse Practitioner 10/30/21 Jules Bowman MD [address] [place] [address] Surgeon Vascular Surgery 11/12/21 Owner Consulting Engineer Relationship Specialty Start Date End Date KaitPaulette JAYLEN Early [address] [place] [address] 75697 PCP - General Nurse Practitioner 10/30/21 Jules Bowman MD [address] [facility] [place] [address] Surgeon Vascular Surgery 11/12/21 Owner Consulting Engineer Relationship Specialty Start Date End Date Kait Paulette Early CNP [address] [place] [address]36 PCP - General Nurse Practitioner 10/30/21 Jules Bowman MD [address] [place] [address] Surgeon Vascular Surgery 11/12/21 Owner Consulting Engineer Relationship Specialty Start Date End Date Paulette Carballo CNP [address] [place] [address] 45[address] PCP - General Nurse Practitioner 10/30/21 Jules Bowman MD [address] [place] [address] Surgeon Vascular Surgery 11/12/21 Owner Consulting Engineer Relationship Specialty Start Date End Date Kait Paulettegeorge Early CNP [address] [place] [address]1263 PCP - General Nurse Practitioner 10/30/21 Jules Bowman MD [address] [place] [address] Surgeon Vascular Surgery 11/12/21 Owner Consulting Engineer Relationship Specialty Start Date End Date Kait Paulettegeorge Early CNP [address] [place] [address] PCP - General Nurse Practitioner 10/30/21 Jules Bowman MD [address] [place] [address] Surgeon Vascular Surgery 11/12/21 Owner Consulting Engineer Relationship Specialty Start Date End Date Paulette Carballo CNP [address] [place] [address]64[address] PCP - General Nurse Practitioner 10/30/21 Jules Bowman MD [address] [place] [address] Surgeon Vascular Surgery 11/12/21 Owner Consulting Engineer Relationship Specialty Start Date End Date Paulette Carballo CNP [address] [place] [address] 12006 PCP - General Nurse Practitioner 10/30/21 Jules Bowman MD [address] [place] [address] Surgeon Vascular Surgery 11/12/21 Owner Consulting Engineer Relationship Specialty Start Date End Date Paulette Carballo CNP [address] [place] [address] PCP - General Nurse Practitioner 10/30/21 Jules Bowman MD [address] [place] [address] Surgeon Vascular Surgery 11/12/21 Owner Consulting Engineer Relationship Specialty Start Date End Date Paulette Carballo CNP [address] [place] [address] 95265 PCP - General Nurse Practitioner 10/30/21 Jules Bowman MD [address] [place] [address] Surgeon Vascular Surgery 11/12/21 Owner Consulting Engineer Relationship Specialty Start Date End Date Paulette Carblalo CNP [address] [place] [address] PCP - General Nurse Practitioner 10/30/21 Jules Bowman MD [address] [place] [address] Surgeon Vascular Surgery 11/12/21 Owner Consulting Engineer Relationship Specialty Start Date End Date Paulette Carballo CNP [address] [place], [place] [phone] PCP - General Nurse Practitioner 10/30/21 Jules Bowman MD [address] [place] [address] Surgeon Vascular Surgery 11/12/21 Owner Consulting Engineer Relationship Specialty Start Date End Date Paulette Carballo CNP [address] [place], [place] [phone] PCP - General Nurse Practitioner 10/30/21 Jules Bowman MD [address] [place] [address] Surgeon Vascular Surgery 11/12/21 Owner Consulting Engineer Relationship Specialty Start Date End Date Paulette Carballo APRN - CNP [address] [place] [phone] PCP - General 10/21/21 Team Status: Active Member Role Status Dates PAULETTE CARBALLO Primary Care Provider Active Team Status: Inactive Member Role Status Dates KAIT CALDWELL Primary Care Provider Active Dr. Irene Murillo MD Attending Provider, Referring Pr ovider Active Owner Consulting Engineer Relationship Specialty Start Date End Date Paulette Carballo CNP [address] [place] [address]884 PCP - General Nurse Practitioner 10/30/21 Jules Bowman MD [address] [facility] [place] [address] Surgeon Vascular Surgery 11/12/21 Owner Consulting Engineer Relationship Specialty Start Date End Date KaitAbimaelgeorge Early CNP [address] [place] [address]86 PCP - General Nurse Practitioner 10/30/21 Jules Bowman MD [address] [place] [address] Surgeon Vascular Surgery 11/12/21 Owner Consulting Engineer Relationship Specialty Start Date End Date Paulette velazco JAYLEN Early [address] [place] [address] 16504 PCP - General Nurse Practitioner 10/30/21 Jules Bowman MD [address] [place] [address] Surgeon Vascular Surgery 11/12/21 Owner Consulting Engineer Relationship Specialty Start Date End Date KaitPaulette JAYLEN Early [address] [place] [address]35[address] PCP - General Nurse Practitioner 10/30/21 Jules Bowman MD [address] [facility] [place] [address] Surgeon Vascular Surgery 11/12/21 Owner Consulting Engineer Relationship Specialty Start Date End Date Kait Paulette Early CNP [address] [place] [address] PCP - General Nurse Practitioner 10/30/21 Jules Bowman MD [address] [place] [address] Surgeon Vascular Surgery 11/12/21 Owner Consulting Engineer Relationship Specialty Start Date End Date Paulette Carballo Sharath JAYLEN [address] [place] [address] PCP - General Nurse Practitioner 10/30/21 Jules Bowman MD [address] [place] [address] Surgeon Vascular Surgery 11/12/21 Owner Consulting Engineer Relationship Specialty Start Date End Date Paulette Carballo JAYLEN Early [address] [place] [address] 87885 PCP - General Nurse Practitioner 10/30/21 Jules Bowman MD [address] [place] [address] Surgeon Vascular Surgery 11/12/21 Owner Consulting Engineer Relationship Specialty Start Date End Date Paulette CarballozabethJAYLEN [address] [place] [address] 09207 PCP - General Nurse Practitioner 10/30/21 Jules Bowman MD [address] [place] [address] Surgeon Vascular Surgery 11/12/21 Owner Consulting Engineer Relationship Specialty Start Date End Date Sae Jaimes MD [address] [place] [phone] PCP - General Family Medicine 08/11/24 Owner Consulting Engineer Relationship Specialty Start Date End Date Generic Provider, No [place] [address] PCP - General Fabric Worker Fitter 09/06/24 Owner Consulting Engineer Relationship Specialty Start Date End Date Rayo Jaimes MD [address] [place] [address] PCP - General Family Medicine 06/27/24 Jules Bowman MD [address] [place] [address] Surgeon Vascular Surgery 11/12/21 Owner Consulting Engineer Relationship Specialty Start Date End Date Rayo Jaimes MD [address] [place] [address] PCP - General Family Medicine 06/27/24 Jules Bowman MD [address] [place] [address] Surgeon Vascular Surgery 11/12/21 Owner Consulting Engineer Relationship Specialty Start Date End Date Rayo Jaimes MD [address] [place] [address] PCP - General Family Medicine 06/27/24 Jules Bowman MD [address] [place] [address] Surgeon Vascular Surgery 11/12/21 Owner Consulting Engineer Relationship Specialty Start Date End Date Rayo Jaimes MD [address] [place] [address] PCP - General Family Medicine 06/27/24 Jules Bowman MD [address] [place] [address] Surgeon Vascular Surgery 11/12/21 Owner Consulting Engineer Relationship Specialty Start Date End Date Rayo Jaimes MD [address] [place] [address] PCP - General [facility] 06/27/24 Jules Bowman MD [address] [place] [address] Surgeon Vascular Surgery 11/12/21 Owner Consulting Engineer Relationship Specialty Start Date End Date Rayo Jaimes MD [address] [place] [address] PCP - [facility] 06/27/24 Jules Bowman MD [address] [place] [address] Surgeon Vascular Surgery 11/12/21 Owner Consulting Engineer Relationship Specialty Start Date End Date Rayo Jaimes MD [address] [place] [address] PCP - [facility] 06/27/24 Jules Bowman MD [address] [place] [address] Surgeon Vascular Surgery 11/12/21 Scheduled Active and Recently Administ ered Medications (unrecognized section and content) Medication Order 10/19/2021 10/20/2021 10/21/2021 morphine (PF) injection 2 mg (COMPLETED) 2 mg, IntraVENous, ONCE, 1 dose, On Wed10/21/21 at 1300, If oral and IV narcotics ordered, use oral first and only use IV if oral is ineffective or cannot take oral. Do Not give oral and IV within 1 hour of each other unless specifically ordered. 1256 (Given - Provid er: Morro Mckeon RN) ondansetron (ZOFRAN) injection 4 mg (COMPLETED) 4 mg, IntraVENous, ONCE, 1 dose, On Wed10/21/21 at 1300 1257 (Given - Provid er: Morro Mckeon RN) Scheduled Medication Order 07/05/2022 07/06/2022 07/07/2022 hydroCODone-acetaminophen (NORCO) 5-325 MG per tablet 1 tablet (COMPLETED) 1 tablet, Oral, ONCE, 1 dose, On Wed07/07/22 at 0545, 0527 (Given - Provid er: Markel Fuller RN) HYDROmorphone (DILAUDID) injection 0.5 mg (COMPLETED) 0.5 mg, Intravenous, ONCE, 1 dose, On Wed07/07/22 at 0245 0213 (Given - Provid er: Markel Fuller RN) HYDROmorphone (DILAUDID) injection 0.5 mg (COMPLETED) 0.5 mg, Intravenous, ONCE, 1 dose, On Wed07/07/22 at 0345 0325 (Given - Provid er: Markel Fuller RN) iodixanol (VISIPAQUE) injection 320 mg/mL for [facility] IR (COMPLETED) 75 mL, Intravenous, ONCE, 1 dose, On Wed07/07/22 at 0330, Extravasation Risk, Radiology Procedure 0253 (Given - Radiol ogy - Provider: Alexandria Breen) Sodium chloride 0.9% IV solution 75 mL (COMPLETED) 75 mL, Intravenous, ONCE, 1 dose, On Wed07/07/22 at 0330, Radiology Procedure 0250 (Stopped - Prov ider: Markel Fuller RN)0252 ($$New Bag$$ - Provider: Alexandria Breen)0327 (Stopped - Provider: Markel Fuller RN) Scheduled Medication Order 01/18/2023 01/19/2023 01/20/2023 HYDROcodone homatropine (HYCODAN) 5-1.5 MG/5ML solution 5 mL (COMPLETED) 5 mL, Oral, ONCE, 1 dose, On Wed01/20/23 at 0500 0447 (Given - Provid er: Tamera Leonard RN) Scheduled Medication Order 08/09/2024 08/10/202408/1108/11/2024 ketorolac (Toradol) injection 15 mg (COMPLETED) 15 mg, IntraVENous, Once, On Wed08/11/24 at 1450, For 1 dose 1450 (Given - Provid er: Amy Leonard RN) morphine injection 4 mg (COMPLETED) 4 mg, IntraVENous, Once, On Wed08/11/24 at 1150, For 1 dose, If oral and injectable narcotics ordered, use oral first and only use injectable if oral is ineffective or cannot take oral. Do Not give oral and injectable within 1 hour of each other unless specifically ordered. 1214 (Given - Provid er: Vijay Alfaro, SG) ondansetron (Zofran) injection 4 mg (COMPLETED) 4 mg, IntraVENous, Once, On Wed08/11/24 at 1150, For 1 dose 1213 (Given - Provid er: Vijay Alfaro RN) Scheduled Medication Order 09/09/2024 09/10/2024 09/11/2024 aspirin EC tablet 81 mg 81 mg, Oral, Daily, First dose on Wed09/07/24 at 1130, DO NOT CRUSH OR CHEW. 0839 (Given - Provider: Hari Mitchell RN) 0830 (Given - Provider: Xochilt Montoya RN) 0810 (Given - Provider: Xochilt Montoya RN) atorvastatin (LIPITOR) tablet 40 mg 40 mg, Oral, Daily, First dose on Ileana 09/07/24 at 0900 0839 (Given - Provider: Hari Mitchell RN) 0830 (Given - Provider: Xochilt Montoya RN) 0810 (Given - Provider: Xochilt Montoya RN) cefTRIAXone (ROCEPHIN) IVPB 2 g (premix) 2,000 mg, Intravenous, at 100 mL/hr, Every 24 hours, First dose on Wed09/06/24 at 2200, Indication: Other (specify), Indication: Skin/soft tissue infection 2240 (New Bag - Provider: Sis Cedillo RN) 221 (New Bag - Provider: Sis Cedillo RN) enoxaparin (LOVENOX) syringe 40 mg 40 mg, Subcutaneous, Daily, First dose on Wed09/08/24 at 1230, Administer in abdomen unless otherwise directed by prescriber. Notify physician if patient refuses., Prophylaxis Indication: VTE Prophylaxis 0837 (Not Given - Provider: Hari Mitchell RN - Reason: Patient/family refused) 0830 (Given - Provider: Xochilt Montoya RN) 0900 (Not Given - Provider: Xochilt Montoya RN - Reason: Patient/family refused) gabapentin (NEURONTIN) capsule 800 mg 800 mg, Oral, Every 8 hours scheduled, First dose on Wed09/06/24 at 2200, Capsule may be opened and contents placed down tube, flush tube with 10ml saline 0632 (Given - Provider: Kacie Fair RN)1505 (Given - Provider: Hari Mitchell RN)2315 (Given - Provider: Sis Cedillo RN) 0602 (Given - Provider: Sis Cedillo RN)1331 (Given - Provider: Xochilt Montoya RN)2218 (Given - Provider: Sis Cedillo RN) 0539 (Given - Provider: Sis Cedillo RN)1316 (Given - Provider: Xochilt Montoya RN) NIFEdipine 24 hr tablet 30 mg 30 mg, Oral, Daily, First dose on Wed09/07/24 at 0900, Hold for SBP<100 DO NOT CRUSH OR CHEW. 0839 (Given - Provider: Hari Mitchell RN) 0829 (Given - Provider: Xochilt Montoya RN) 0811 (Given - Provider: Xochilt Montoya RN) polyethylene glycol (MIRALAX) powder 17 g 17 g, Oral, Daily, First dose on Wed09/08/24 at 1230 0839 (Given - Provider: Hari Mitchell RN) 0829 (Given - Provider: Xochilt Montoya RN) 0810 (Given - Provider: Xochilt Montoya RN) senna-docusate (SENNA-S) 8.6-50 mg per tablet 1 tablet 1 tablet, Oral, 2 times daily, First dose on Wed09/06/24 at 2100, NOT for abdominal surgery patients. Hold for loose stools. Do Not Crush or Chew if administering orally due to bitter taste. May be crushed if given via tube. 0839 (Given - Provider: Hari Mitchell RN)2000 (Given - Provider: Sis Cedillo RN) 0830 (Given - Provider: Xochilt Montoya RN)2218 (Given - Provider: Sis Cedillo RN) 0811 (Given - Provider: Xochilt Montoya RN) sodium chloride (PF) (NS) flush 5 mL(Linked Group 1) 5 mL, Intravenous, Every 8 hours scheduled, First dose on Wed09/06/24 at 2200, Saline lock 0600 (Canceled Entry - Provider: Kacie Fair RN)1455 (Given - Provider: Hari Mitchell RN)2200 (Canceled Entry - Provider: Sis Cedillo RN) 0600 (Canceled Entry - Provider: Sis Cedillo RN)1331 (Given - Provider: Xochilt Montoya RN)2200 (Canceled Entry - Provider: Sis Cedillo RN) 0600 (Canceled Entry - Provider: Sis Cedillo RN)1317 (Given - Provider: Xochilt Montoya RN) PRN Medication Order 09/09/2024 09/10/2024 09/11/2024 acetaminophen (TYLENOL) tablet 650 mg 650 mg, Oral, Every 4 hours PRN, mild pain, fever 100.4 F or greater, headaches, Starting on Wed09/06/24 at 2021 1227 (Given - Provider: Hari Mitchell RN) 0830 (Given - Provider: Xochilt Montoya RN)1331 (Given - Provider: Xochilt Montoya RN) 0003 (Given - Provider: Sis Cedillo RN)0356 (Given - Provider: Jonny Fields, SG)0810 (Given - Provider: Xochilt Montoya RN)1630 (Given - Provider: Xochilt Montoya RN) calcium carbonate (TUMS) chewable tablet 500 mg 500 mg, Oral, 2 times daily PRN, indigestion, heartburn, Starting on Wed09/09/24 at 0134, Give with Food 0138 (Given - Provider: Jonny Fields RN) HYDROmorphone (DILAUDID) injection 0.25-0.5 mg (CANCELED) 0.25-0.5 mg, Intravenous, Every 3 hours PRN (september repeat), moderate to severe pain, Starting on Wed09/06/24 at 2021, Initiate with 0.25 mg IV every 3 hours prn moderate to severe pain. For unrelieved pain, may repeat 0.25 mg within 30 minutes of initial dose. If pain is RELIEVED after repeat dose, change to 0.5 mg every 3 hours prn moderate to severe pain. If pain is UNrelieved after repeat dose, or patient requires dose reduction, call physician. May use IV for breakthrough pain or if unable to tolerate enteral routes. 0142 (Given - Provider: Jonny Fields RN)1505 (Given - Provider: Hari Mitchell RN)1959 (Given - Provider: Sis Cedillo RN) meclizine (ANTIVERT) tablet 12.5 mg 12.5 mg, Oral, 3 times daily PRN, dizziness, Starting on Wed09/06/24 at 2027 melatonin tablet 3 mg 3 mg, Oral, Nightly PRN, Sleep, Starting on Wed09/06/24 at 2021 naloxone (NARCAN) injection 0.1 mg(Linked Group 2) 0.1 mg, Intravenous, As needed, opioid reversal, For respiratory rate less than or equal to 8 per minute., Starting on Wed09/06/24 at 2021, Mix nalOXone (NARCAN) 0.4 mg (1mL) with 9 mL of Normal Saline to total 10 mL. Administer 0.1 mg (2.5mL) IV Push every 2 minutes until respiratory rate is 10 or greater. naloxone (NARCAN) injection 0.4 mg(Linked Group 2) 0.4 mg, Intravenous, As needed, opioid reversal, patient is pulseless, breathless, and unresponsive, Starting on Wed09/06/24 at 2021, Call a code first, then administer naloxone dose undiluted IV Push over 30 seconds. ondansetron (ZOFRAN) injection 4 mg(Linked Group 3) 4 mg, Intravenous, Every 6 hours PRN, nausea, vomiting, Starting on Wed09/06/24 at 2021, Use oral route first, if tolerated. ondansetron (ZOFRAN-ODT) disintegrating tablet 4 mg(Linked Group 3) 4 mg, Oral, Every 6 hours PRN, nausea, vomiting, Starting on Wed09/06/24 at 2021, Use oral route first, if tolerated. Formulation requires tablet remain in sealed package until immediately prior to dose being administered. oxyCODONE (ROXICODONE) immediate release tablet 5-10 mg 5-10 mg, Oral, Every 4 hours PRN (may repeat), moderate to severe pain, Starting on Wed09/06/24 at 2021, Initiate with 5 mg oral every 4 hours prn moderate to severe pain. For unrelieved pain, may repeat 5 mg within 60 minutes of initial dose. If pain is RELIEVED after repeat dose, change to 10 mg every 4 hours prn moderate to severe pain. If pain is UNrelieved after repeat dose, or patient requires dose reduction, call physician. 0632 (Given - Provider: Kacie Fair RN)1227 (Given - Provider: Hari Mitchell RN)1706 (Given - Provider: Maribel Roman, RN)2239 (Given - Provider: Sis Cedillo RN) 0728 (Given - Provider: Sis Cedillo RN)1123 (Given - Provider: Xochilt Montoya, SG)1712 (Given - Provider: Brittany Gaffney, SG)2225 (Given - Provider: Sis Cedillo RN) 0356 (Given - Provider: Jonny Fields RN)0810 (Given - Provider: Xochilt Montoya, SG)1630 (Given - Provider: Xochilt Montoya RN) sodium chloride (PF) (NS) flush 5 mL(Linked Group 1) 5 mL, Intravenous, As needed, line care, Starting on Wed09/06/24 at 2019 sodium chloride 0.9% (NS)(Linked Group 1) 0-150 mL/hr, Intravenous, As needed, To flush line after IV infusions when no maintenance IV ordered or a compatibility issue. Infuse 20ml at the same rate as the secondary infusion, Starting on Wed09/06/24 at 2019, Run as Primary IV. NOT intended for KVO. Linked Groups Order Group 1: Saline lock IV (CANCELED) Routine, Continuous, Starting on Wed09/06/24 at 2024, Until Specified And sodium chloride (PF) (NS) flush 5 mLJump to med 5 mL, Intravenous, As needed, line care, Starting on Wed09/06/24 at 2019 And sodium chloride (PF) (NS) flush 5 mLJump to med 5 mL, Intravenous, Every 8 hours scheduled, First dose on Wed09/06/24 at 2200, Saline lock And sodium chloride 0.9% (NS)Jump to med 0-150 mL/hr, Intravenous, As needed, To flush line after IV infusions when no maintenance IV ordered or a compatibility issue. Infuse 20ml at the same rate as the secondary infusion, Starting on Wed09/06/24 at 2019, Run as Primary IV. NOT intended for KVO. Group 2: naloxone (NARCAN) injection 0.1 mgJump to med 0.1 mg, Intravenous, As needed, opioid reversal, For respiratory rate less than or equal to 8 per minute., Starting on Wed09/06/24 at 2021, Mix nalOXone (NARCAN) 0.4 mg (1mL) with 9 mL of Normal Saline to total 10 mL. Administer 0.1 mg (2.5mL) IV Push every 2 minutes until respiratory rate is 10 or greater. And Notify physician (CANCELED) STAT, Until discontinued, Starting on Wed09/06/24 at 2024, Until Specified, Respiratory rate less than: 8, For respiratory rate less than or equal to 8, notify physician and/or appropriate staff for additional orders. And naloxone (NARCAN) injection 0.4 mgJump to med 0.4 mg, Intravenous, As needed, opioid reversal, patient is pulseless, breathless, and unresponsive, Starting on Wed09/06/24 at 2021, Call a code first, then administer naloxone dose undiluted IV Push over 30 seconds. Group 3: ondansetron (ZOFRAN-ODT) disintegrating tablet 4 mgJump to med 4 mg, Oral, Every 6 hours PRN, nausea, vomiting, Starting on Wed09/06/24 at 2021, Use oral route first, if tolerated. Formulation requires tablet remain in sealed package until immediately prior to dose being administered. Or ondansetron (ZOFRAN) injection 4 mgJump to med 4 mg, Intravenous, Every 6 hours PRN, nausea, vomiting, Starting on Wed09/06/24 at 2021, Use oral route first, if tolerated. Goals (unrecognized section and content) Goals may be documented in a n alternate section FOR RECORDS PERTAINING TO PATIENTS WHO ARE OR HAVE BEEN ENROLLED IN A CHEMICAL DEPENDENCY/SUBSTANCEABUSE PROGRAM, SOME INFORMATION MAY BE OMITTED. This clinical summary was aggregated from multiple sources. Caution should be exercised in using it in the provision of clinical care. This summary normalizes information from multiple sources, and as a consequence, information in this document may materially change the coding, format and clinical context of patient data. In addition, data may be omitted in some cases. CLINICAL DECISIONS SHOULD BE BASED ON THE PRIMARY CLINICAL RECORDS. [employer] [facility]. provides no warranty or guarantee of the accuracy or completeness of information in this document.
[2025-01-28 17:47] LABS: Anion Gap 11 (5-15); BUN 13 mg/dL (4-19); BUN/Creat Ratio 13.8 RATIO (10-20); Calcium,Total 9.6 mg/dL (7.6-11.0); Carbon Dioxide 24.8 mmol/L (21.0-32.0); Chloride 105 mmol/L (98-108); Estimated Creatinine Clearance 81.96 ml/min (50-250); Glucose 105 mg/dL (70-99); Potassium 4.1 mmol/L (3.3-5.1)
[2025-01-28 18:41] VITALS: BP 165/94; PULSE 50; RESP 16; O2SAT 97
[2025-01-28 19:05] VITALS: BP 169/89; PULSE 88; RESP 16; TEMP 36.3; O2SAT 99
== END 2025-01-28 19:05 | disposition home or self-care (01) ==
PROVIDERS: Emergency Provider Emergency Medicine; Visit Provider Emergency Medicine
DX: I10 Essential (primary) hypertension (principal); I25.10 Atherosclerotic heart disease of native coronary artery without angina pectoris; Z95.1 Presence of aortocoronary bypass graft; Z79.82 Long term (current) use of aspirin; Z79.899 Other long term (current) drug therapy; F17.210 Nicotine dependence, cigarettes, uncomplicated; G89.29 Other chronic pain; Z76.0 Encounter for issue of repeat prescription
CPT/HCPCS: 80048; 85025; 99284; A4216

== ENCOUNTER 2025-02-16 17:13 | Emergency (ER) | payer MEDICARE, SELFPAY ==
[2025-02-16 17:14] VITALS: BP 147/126; PULSE 91; RESP 14; TEMP 36.2; O2SAT 97; BMI 29.0
--- OUTSIDE RECORDS SUMMARY | 2025-02-16 19:09 | XMS RPT_ITS | CCD ---
Author Organization [facility] Care Team Providers Care Fisher Scallop Name Role Phone Aylin Bunn Unavailable Unavailable Unavailable Unavailable Garbadawala, Lawson S. Unavailable Ivanauskas, Saulius Unavailable Unavailable Ivanauskas, Saulius Unavailable Unavailable Catalina Bunnissa O Unavailable Unavailable Aylin Bunn Unavailable Unavailable Ward, Colton Unavailable Unavailable Ward, Colton Unavailable Unavailable Garbadawala, Lawson S. Unavailable Aylin Bunn Unavailable [phone] Aylin Bunn Primary Care Provider Bunny Portillo Admitting Unavailable Bunny Portillo Attending Unavailable Mat Garcia Admitting Unavailable Mat Garcia Attending Unavailable Rolando Constantino Admitting Unavailable Rolando Constantino Attending Unavailable Bunny Portillo Attending Unavailable Bunny Portillo Admitting Unavailable SiluMariela Admitting Unavailable ViauMariela Attending Unavailable Cathy, Mariela R Admitting Unavailable Viatye, Mariela Venegas Attending Unavailable Aylin Bunn Primary Care Provider Unavailable Primary Care Provider Unavailabl e No, Physician Primary Care Provider Unavailabl e Fátima Alarcontt E. Primary Care Provider [phone] No, Physician Primary Care Provider Unavailmi e MEGHA FELIX Primary Care Unavailable FREDY GALLEGO Referring Unavailable BEBA, PARAMVIR S Admitting Unavailable BEBA, PARAMVIR S Attending Unavailable BLUE HUMPHREY Consulting Unavailable ARTEM GUILLEN Consulting Unavailable BRIANNE URBINA Attending Unavailable Marin Alarcon MD Primary Care Provider Gail Garduno CNP Primary Care Provider Kait TRAFFIC ENGINEERING DIRECTOR - MONUMENT ERECTOR, Paulette Primary Care Provider GREGORY CORBIN Attending Unavailable KAIT PAULETTE Primary Care Unavailable mora YORK [facility] Jules Bowman MD Unavailable Paulette CARBALLO Primary Care Physician Kait [facility] Paulette Scarlet Primary Care Provide r PCP, Pt States None Referring Unavailable LUDY GIRON Attending Unavailable LUDY GIRON Attending Unavailable Maddi Arteaga CNP Attending Unavailable Chandler YORK Maddi Unavailable [phone] Kait TRAFFIC ENGINEERING DIRECTOR [facility], Paulette Primary Care Provider KAIT PAULETTE Primary Care Unavailable EMILIANA HERNANDES Referring Unavailable KAIT PAULETTE Primary Care Unavailable MARIBEL CRANE Attending Unavailable KAIT PAULETTE Primary Care Unavailable Laureen YORK Gail Primary Care Provider [phone] Kait JAYLEN Paulettegeorge Scanlonth Primary Care Provide r Jules Bowman MD Unavailable Kait YORK Paulette Primary Care Provider Jules Bowman MD. Unavailable WOOD ENG Referring Unavailab le PAULETTE CARBALLO Primary Care Unavaila Jules Wills MD. Unavailable [phone] Kait TRAFFIC ENGINEERING DIRECTOR - MONUMENT ERECTOR, Paulette Primary Care Provider ROBUCK, PAULETTE Primary Care Unavailable CHEMA WEBBER S Attending Unavailable ROBUCK, PAULETTE Primary Care Unavailable MARY ANNE HOLCOMB Attending Unavailable LOKI HAMILTON Attending Unavailable ROBUCK, PAULETTE Primary Care Unavailable ROBUCK, PAULETTE Primary Care Unavailable LOKI HAMILTON Attending Unavailable MARIEL PALACIOS Attending Unavailable ROBUCK, PAULETTE Primary Care Unavailable LOKI HAMILTON Attending Unavailable ROBUCK, PAULETTE Primary Care Unavailable LOKI HAMILTON Referring Unavailable FIGUEROA, DOMO S Consulting Unavailable ROBUCK, PAULETTE Primary Care Unavailable PARINJA, ANNIE Admitting Unavailable PARINJA, ANNIE Attending Unavailable Robmora YORK, Apulette Scarlet Primary Care Provide r Paulette CARBALLO E Attending Unavailable ROBUCK, Paulette E Attending Unavailable ROBUCK, Paulette E Attending Unavailable ROBUCK, Paulette E Attending Unavailable ROBUCK, Paulette E Admitting Unavailable ROBUCK, Paulette E Attending Unavailable ROBUCK, Paulette E Attending Unavailable Vanessa Mcrae Attending Unavailable Rayo JAIMES Attending Unavailable RAYO JAIMES Primary Care Unavailable MARIELA MORGAN Referring Unavailable MARIELA MORGAN Attending Unavailable Sae Jaimes MD Primary Care Provider SAE JAIMES Primary Care Unavailable SURJIT ROMANO Attending Unavailable Generic Provider , No Assigned Pcp Primary Car e Provider Unavailable GENERIC PROVIDER, NO ASSIGNED PCP Primary Care Unavailable KERI HUSSEIN Attending Unavailable Jules Bowman MD Unavailable Rayo Jaimes MD Primary Care Provider ROMIE BARNHART Attending Unavailable PAULETTE CARBALLO Primary Care Unavaila ble KAIT, PAULETTE EARLY Primary Care Unavaila ble KENYATTA ROBLES Attending Unavailable RAYO JAIMES Primary Care Unavailable ABELARDO BARNES Attending Unavail able CLEMENTE HOYOS Attending Unavaila ble RAYO JAIMES Primary Care Unavailable RAYO JAIMES Primary Care Unavailable JOSE MANUEL HOFF Attending Unavailab JAGUAR Devine Attending Unavailable RAYO JAIMES Primary Care Unavailable SYSTEM, PROVIDER NOT IN Referring Unavaila ble VIAU, MARIELA TOLENTINO Referring Unavailable VIAU, MARIELA TOLENTINO Attending Unavailable ROBUCK, [facility] Primary Care Unavaila ble VIAU, MARIELA TOLENTINO Referring Unavailable VIAU, MARIELA TOLENTINO Attending Unavailable ROBUCK, [facility] Primary Care Unavaila ble ARISTEO BEAVERS Consulting Unavailable DENILSON ESQUIVEL Admitting Unavailable BROOKE HERNANDES Attending Unavailabl JAGUAR Overton Referring Unavailable THEODORERAYO Primary Care Unavailable [facility]ICI[facility], [facility] Consulting Unav ailable RIDDHI, JACQUELYN MCKEON Attending Unavailable ROBUCK, [facility] Primary Care Unavaila ble ROBUCK, [facility] Primary Care Unavaila ble VIAU, MARIELA TOLENTINO Attending Unavailable JEREMY SEGOVIA Attending Unavailabl e ROBUCK, [facility] Primary Care Unavaila ble ROBUCK, [facility] Primary Care Unavaila ble VIAU, MARIELA TOLENTINO Attending Unavailable RAYO JAIMES Primary Care Unavailable VIAU, MARIELA TOLENTINO Attending Unavailable AYLIN LUNA Attending Unavailab le THEODORE, RAYO A Primary Care Unavailable ROBUCK, Paulette E Primary Care Physician Wendy Reed Attending Unavailable Wendy Reed Attending Unavailable Dr. Darren Bahena MD Emergency Provider [phone] Care Physician, No Primary Primary Care Provider Unavailable Unavailable Primary Care Provider UnavailIrene Prajapati Attending Unavailable Irene Murillo Referring Unavailable Rayo Jaimes Primary Care Unavailable Care Physician, No Primary Primary Care Unava ilable Darren Bahena Attending Unavailable TASHA ACUNA Attending Unavailable SELF Referring Unavailable TASAH ACUNA Primary Care Unavailable TASHA ACUNA Referring Unavailable ARMAND, TASHA Primary Care Unavailable Allergies Allergy Classification Reported Allergen(s) Allergy Type Date of Onset Reaction(s) Facility HMG-CoA Reductase Inhibitors (statins) (1 source) atorvastatin Drug Allergy 3 Other (See Comments) [facility] Work Phone: Unclassified (9 sources) Iodides Propensity to adverse reactions to drug 1 [facility] (20 sources) atorvastatin; Translations: [ATORVASTATIN] Drug Allergy 3 Other (See Comments), Other [facility] Work Phone: (16 sources) Angiotensin-conv erting enzyme inhibitor agent; Translations: [FELIX inhibitors] Drug allergy 4 Angioedema of tongue (disorder) [facility] (15 sources) Angiotensin-conv erting enzyme inhibitor agent Propensity to adverse reactions to drug 4 Swelling [facility] (2 sources) Lisinopril; Translations: [LISINOPRIL] Drug Allergy 5 Angioedema [facility] (1 source) Lisinopril Drug Allergy 5 [facility] Repository Medications Current Medications Medication Drug Class(es) Dates [...] / HYDROcodone bitartrate 7.5 mg oral tablet (17 sources) Opioid Agonist Start: 01-19-2024 Hydrocodone-Ac etaminophen 7.5-325 mg tablet Active 1 {tbl} PO 3 TIMES DAILY NEEDED as needed for pain January 19, 2024 12:00am Start: 10-28-2023 End: 09-11-2024 take 1 tablet by mouth every six hours for pain [place] 325 mg-7.5 mg oral tablet 1 tab(s), [...] Daily, # 90 tab(s), Refills(s) 4, Pharmacy: [facility] #[id number] 183, cm, 09/27/23 14:23:00 EDT, Height/Length Dosing, [...] tablet (20 sources) Nonsteroidal Anti-inflammatory Drug Start: 01-19-2024 End: 09-11-2024 take 1 tablet by mouth once daily aspirin 81 mg Oral EC Tab 81 mg = 1 tab(s), Oral, Daily, # 90 tab(s), Refills(s) 4, Pharmacy: [facility] #[facility], 183, cm, 01/26/24 13:02:00 EDT, Height/Length Dosing, 101.4, kg, 01/26/24 13:19:00 EDT, Weight Dosing Start Date: 01/26/24 Status: Ordered Quantity: 90.0 Unit: tab(s) Repeat number: 5 Start: 08-25-2023 take 1 tablet by raj th once daily aspirin 81 mg Oral EC Tab 81 mg = 1 tab(s), Oral, Daily, # 90 tab(s), Refills(s) 4, Pharmacy: [facility] #[id number], 183, cm, 05/05/23 9:03:00 EST, Height/Length Dosing, 100.5, kg, 05/05/23 9:03:00 EST, Weight Dosing Start Date: 08/25/23 Status: Ordered Start: 05-05-2023 take 1 tablet by raj th once daily aspirin 81 mg Oral EC Tab 81 mg = 1 tab(s), Oral, Daily, # 90 tab(s), Refills(s) 3, [id number] 183, cm, 05/05/23 9:03:00 EST, Height/Length Dosing, 100.5, kg, 05/05/23 9:03:00 EST, Weight Dosing Start Date: 05/05/23 Status: Ordered Start: 04-06-2022 Aspirin 81 81 MG Oral Tablet Chewable 04/06/2022 Provider: Start: 04-29-2020 End: 09-24-2022 take 1 tablet by mouth once daily aspirin 81 mg Oral EC Tab 81 mg = 1 tab(s), Oral, Daily, # 90 tab(s), Refills(s) 3, Pharmacy: [facility]/pharmacy #[id number], 183, cm, 06/10/22 11:29:00 EST, [...] tablet (20 sources) HMG-CoA Reductase Inhibitor Start: 01-20-2024 End: 09-11-2024 take 1 tablet by mouth once daily atorvastatin 40 mg Tab 40 mg = 1 tab(s), Oral, Daily, JUAN CARLOS, # 90 tab(s), Refills(s) 4, Pharmacy: [facility] #70, 183, cm, 01/26/24 13:02:00 EDT, Height/Length Dosing, 101.4, kg, 01/26/24 13:19:00 EDT, Weight Dosing Start Date: 01/26/24 Status: Ordered Quantity: 90.0 Unit: tab(s) Repeat number: 5 Start: 06-10-2022 take 1 tablet by raj th once daily atorvastatin 20 mg Tab 20 mg = 1 tab(s), Oral, Daily, # 90 tab(s), Refills(s) 3, Pharmacy: [facility]/pharmacy #[id number], 183, cm, 06/10/22 11:29:00 EST, [...] / pseudoephedrine hydrochloride 6 mg/ml oral solution (2 sources) alpha-Adrenergic Agonist, Uncompetitive I-sqksah-Z-aspartate Receptor Antagonist, Sigma-1 Agonist Start: 01-19-2024 take 1 mL by mouth four times daily as needed for cough Ctpgflbxvtbbpig-Axsxvikwd-Ci 2-30-10 mg/5 mL syrup Active 5 mL PO 4 TIMES DAILY NEEDED as needed for cough January 19, 2024 12:00am Start: 01-20-2023 End: 01-25-2023 take 5 mL by mouth four times daily as needed for cough nfflcvwtmskzlvb-gljpsniuuygkldz-CZ 2-30- 10 MG/5ML syrup Take 5 mLs by mouth [...] mg docusate sodium 50 mg / sennosides, jail 8.6 mg oral tablet (3 sources) Start: [...] 3 MG O ral Tablet 04/06/2022 Provider: rwzkwzqmzim-vmksylnpb-ousdok er (Trelegy Ellipta) 200-62.5-25 mcg DsDv (20 sources) Start: 08-25-2022 End: 11-23-2022 evplohwqkmx-itrhhciux-zphbcc er (Trelegy Ellipta) 200-62.5-25 mcg DsDv Inhale 1 (one) Inhalation daily . 60 each 2 08/25/2022 11/23/2022 Active Start: 07-01-2022 fluticasone-um eclidin-vilanter (Trelegy Ellipta) 200-62.5-25 mcg DsDv Inhale 1 (one) Inhalation daily . 60 each 11 07/01/2022 Suspended Start: 07-01-2022 fluticasone-um eclidin-vilanter (Trelegy Ellipta) 200-62.5-25 mcg DsDv Inhale 1 (one) Inhalation daily . 60 each 11 07/01/2022 Active gabapentin 800 mg oral tablet (20 sources) Anti-epileptic Agent Start: 09-06-2024 End: 09-11-2024 take 10 mL by mouth every eight hours 800 mg, Oral, Every 8 hours scheduled, First dose on Wed09/06/24 at 2200, Capsule may be opened and contents placed down tube, flush tube with 10ml saline Start: 01-19-2024 take 1 tablet by raj th three times daily Gabapentin 800 mg tablet Active 800 mg PO THREE TIMES A DAY 60 20 0 January 28, 2025 12:00am Start: 08-25-2022 End: 11-23-2022 take 1 tablet [...] Active Start: 07-29-2021 take 1 tablet by raj th three times daily gabapentin (NEURONTIN) 600 MG tablet Take 600 mg by mouth 3 (three) times a day . 0 10/14/2021 Suspended hydrALAZINE hydrochloride 25 mg oral tablet (4 [...] Every 6 hours PRN, mild pain, Starting Wed06/19/19 at 1717 Give with Food Do Not [...] (20 sources) Angiotensin Converting Enzyme Inhibitor Start: 07-29-2021 take 1 tablet by mouth once daily lisinopril 30 mg Tab 30 mg = 1 tab(s), Oral, Daily, # 90 tab(s), Refills(s) 3, [id number], 183, cm, 05/05/23 9:03:00 EST, Height/Length Dosing, 100.5, kg, 05/05/23 9:03:00 EST, Weight Dosing Start Date: 05/05/23 Status: Ordered Start: 09-02-2020 End: 04-07-2021 take 1 tablet by mouth once daily lisinopriL (PRINIVIL,ZESTRIL) 30 MG tablet Take 1 (one) tablet (30 mg total) by mouth daily . 90 tablet 0 01/22/2021 04/07/2021 Discontinued (Reorder (Suppress CancelRx Message to Pharmacy)) Start: 11-24-2019 take 1 tablet by raj th once daily lisinopril (ZESTRIL, PRINIVIL) 20 mg tablet Take 20 mg by mouth once daily. 11/24/2019 Active take 1.5 tablets by mouth once daily [...] Start: 09-11-2024 naloxone (Na rcan) 4 mg/actuation [place] Administer 1 spray into one nostril for known or suspected opioid overdose. If patient worsens or does not respond, may repeat in 2-3 minutes. . 2 each 09/11/2024 Active Start: 01-03-2022 naloxone (NARC AN) 4 mg/actuation [place] Administer 1 spray into one nostril for known or suspected opioid overdose. If patient worsens or does not respond, may repeat in 2-3 minutes. . 2 each 1 01/03/2022 Active naproxen 500 mg oral tablet (5 sources) Nonsteroidal Anti-inflammatory Drug Start: 02-09-2013 End: 08-18-2024 take 1 tablet by mouth twice daily at mealtime naproxen (Naprosyn) 500 MG tablet Take 1 tablet (500 mg) by mouth 2 times daily (with meals) for 7 days. 14 tablet 08/11/2024 08/18/2024 Active nicotine 4 mg chewing gum (13 sources) Cholinergic Nicotinic Agonist Start: 09-16-2022 End: 10-28-2022 nicotine polacrilex (NICORETTE) 4 MG gum Apply 1 (one) each (4 mg total) to the mouth or throat as needed for smoking cessation . 100 each 2 09/28/2022 10/28/2022 Active 24 hr NIFEdipine 30 mg extended release oral tablet (20 sources) Dihydropyridine Calcium Channel Keiry Start: 01-28-2025 take 1 tablet by mouth once daily Nifedipine 30 mg tablet extended release Active 30 mg PO DAILY 30 30 0 January 28, 2025 12:00am Start: 09-07-2024 End: 09-11-2024 take 30 mg by mouth once daily 30 mg, Oral, Daily, Fir st dose on Ileana 09/07/24 at 0900, Hold for SBP Start: 01-26-2024 take 1 tablet by raj once daily NIFEdipine 30 mg ER Tab 30 mg = 1 tab(s), Oral, Daily, # 90 tab(s), Refills(s) 4, Pharmacy: [facility] #70, 183, cm, 01/26/24 13:02:00 EDT, Height/Length Dosing, 101.4, kg, 01/26/24 13:19:00 EDT, Weight Dosing Start Date: 01/26/24 Status: Ordered Quantity: 90.0 Unit: tab(s) Repeat number: 5 Start: 10-29-2023 take 1 tablet by [facility] once daily NIFEdipine 30 mg ER Tab 30 mg = 1 tab(s), Oral, Daily, # 90 tab(s), Refills(s) 0, Pharmacy: [facility] #70, 183, cm, 10/28/23 14:20:00 EDT, Height/Length Dosing, 98.6, kg, 10/28/23 14:20:00 EDT, Weight Dosing Start Date: 10/29/23 Status: Ordered oxyCODONE hydrochloride 5 mg oral tablet (6 [...] 12/25/2021 Discontinued (Therapy completed) polyethylene glycol 3350 26063 mg powder for oral solution (5 sources) [...] dysfunction, # 30 tab(s), Refills(s) 2, Pharmacy: [facility] #70, 183, cm, 10/28/23 14:20:00 EDT, Height/Length Dosing, 98.6, kg, 10/28/23 14:20:00 EDT, Weight Dosing Start Date: 12/02/23 Status: Ordered Quantity: 30.0 Unit: tab(s) Repeat number: 3 Start: 05-05-2023 take 1 tablet by raj once daily as needed Viagra 100 mg Tab 100 mg = 1 tab(s), Oral, Daily, PRN for erectile dysfunction, # 30 tab(s), Refills(s) 2, , Pharmacy: [facility] #[id number], 183, cm, 05/05/23 9:03:00 EST, Height/Length Dosing, 100.5, kg, 05/05/23 9:03:00 EST, Weight Dosing Start Date: 05/05/23 Status: Ordered Start: 01-11-2023 take 1 tablet by raj once daily as needed Viagra 100 mg Tab 100 mg = 1 tab(s), Oral, Daily, PRN for erectile dysfunction, # 30 tab(s), Refills(s) 2, , [facility]acy: [facility] #[id number], 183, cm, 01/11/23 10:56:00 EDT, Height/Length Dosing, 106.2, kg, 01/11/23 10:56:00 EDT, Weight Dosing Start Date: 01/11/23 Status: Ordered tamsulosin hydrochloride 0.4 mg oral capsule (20 sources) alpha-Adrenergic Keiry Start: 08-25-2023 take 1 capsule by mouth once daily tamsulosin 0.4 mg Cap 0.4 mg = 1 cap(s), Oral, Daily, # 90 cap(s), Refills(s) 4, Pharmacy: [facility] #59, 183, cm, 05/05/23 9:03:00 EST, Height/Length Dosing, 100.5, kg, 05/05/23 9:03:00 EST, Weight Dosing Start Date: 08/25/23 Status: Ordered Start: 05-05-2023 take 1 capsule by [facility] once daily tamsulosin 0.4 mg Cap 0.4 mg = 1 cap(s), Oral, Daily, # 90 cap(s), Refills(s) 3, Pharmacy: [facility] #[id number], 183, cm, 05/05/23 9:03:00 EST, Height/Length Dosing, 100.5, kg, 05/05/23 9:03:00 EST, Weight Dosing Start Date: 05/05/23 Status: Ordered Start: 01-11-2023 take 1 capsule by [facility] once daily tamsulosin 0.4 mg Cap 0.4 mg = 1 cap(s), Oral, Daily, # 90 cap(s), Refills(s) 3, Pharmacy: [facility] #[id number], 183, cm, 01/11/23 10:56:00 EDT, Height/Length Dosing, [...] Active Start: 04-14-2022 take 2 tablets by [facility] every eight hours for pain traMADol [...] pain. 60 tablet 0 08/26/2016 10/28/2017 Discontinued [id number] 200 actuat albuterol 0.09 mg/actuat metered dose [...] times daily PRN, indigestion, heartburn, Starting on 09/09/24 at 0134, Give with Food calcium chloride [...] (premix) cyclobenzaprine hydrochloride 10 mg oral tablet (9 sources) Muscle Relaxant Start: 06-23-2023 End: 05-12-2024 take 1 tablet by mouth twice daily as needed for pain cyclobenzaprine (FLEXERIL) 10 MG tablet Take 1 tablet p.o. twice daily as needed muscle spasm/pain. . 14 tablet 06/23/2023 05/12/2024 Discontinued Start: 12-09-2019 take 1 tablet by raj three times daily as needed for muscle spasms cyclobenzaprine 10 mg Tab 10 mg = 1 tab(s), Oral, TID, PRN for spasm, # 90 tab(s), Refills(s) 0, Pharmacy: [facility]/pharmacy #[id number], 183, cm, 07/13/22 11:16:00 EST, [...] if patient refuses., Prophylaxis Indication: VTE Prophylaxis [id number] 0.3 ml EPINEPHrine 1 mg/ml auto-injector (6 [...] sources) Corticosteroid Start: 08-25-2023 Flonase 0.05 mg/inh [place] 50 mcg, 1 spray(s), Nasal, BID, 1 EA, Refill(s) 11, each nostril, [facility] #[id number], 183, cm, 05/05/23 9:03:00 EST, Height/Length Dosing, 100.5, kg, 05/05/23 9:03:00 EST, Weight Dosing Start Date: 08/25/23 Status: Ordered Start: 05-05-2023 Flonase 0.05 m g/inh [place] 50 mcg, 1 spray(s), Nasal, BID, 1 EA, Refill(s) 0, each nostril, [facility] #[id number], 183, cm, 05/05/23 9:03:00 EST, Height/Length Dosing, 100.5, kg, 05/05/23 9:03:00 EST, Weight Dosing Start Date: 05/05/23 Status: Ordered Start: 10-05-2022 take 1 spray(s) nasa l route twice daily Flonase 0.05 mg/inh [place] 1 spray(s), Nasal, BID, Refill(s) 0, each [...] tablet 0 12/10/2021 12/25/2021 Discontinued (Therapy completed) gadoterate meglumine (DOTAREM) injection 19 mL (1 source) Start: 09-07-2024 End: 09-07-2024 19 mL, Intravenous, Once in imaging, contrast, Starting on [facility] 09/07/24 at 0839, For 1 dose 12 [...] Daily, # 90 tab(s), Refills(s) 3, Pharmacy: [facility]/pharmacy #[id number], 183, cm, 06/10/22 11:29:00 EST, [...] 1 tablet, Oral, Daily, First dose on Wed06/19/19 at 1700 naloxone (NARCAN) injection 0.1 mg (1 source) Start: 09-06-2024 End: 09-11-2024 naloxone (NARCAN) injection 0.1 mg 10 actuat olodaterol 0.0025 mg/actuat / tiotropium 0.0025 mg/actuat inhalation spray (4 sources) Anticholinergic, beta2-Adrenergic Agonist Start: 04-03-2024 End: 05-12-2024 tiotropium-olodater oL (STIOLTO) 2.5-2.5 mcg/actuation Mist respimat inhaler Indications: Chronic obstructive pulmonary disease, unspecified COPD type ([facility]) Inhale 2 (two) puffs daily . 4 [...] (acute kidney injury) (HCC)] Onset: 08-08-2020 08-08-2020 Administrative/social admission (20 sources) Homeless; Translations: [Homelessness] Onset: 06-19-2019 Resolved: 09-30-2020 06-19-2019 Episodic Alcohol-related disorders (20 sources) Alcohol abuse; Translations: [...] Chronic Conditions associated with dizziness or vertigo (5 sources) Dizziness and giddiness; Translations: [Dizziness and [...] specified surgical aftercare] Onset: 08-11-2022 Episodic Other circulatory disease (1 source) Disorder of carotid artery; Translations: [Disorder of arteries and arterioles, unspecified] 01-28-2024 Chronic Other connective tissue disease (1 source) Muscle [...] Chronic cough; Translations: [Chronic cough] Episodic Other lower respiratory disease (2 sources) Shortness of breath; Translations: [Shortness of breath] Onset: 02-07-2024 Episodic Other male genital disorders (12 sources) [...] Chronic Other nervous system disorders (1 source) Chronic pain; Translations: [Other chronic pain] 01-28-2025 Chronic Other nervous system disorders (1 source) Chronic pain syndrome; Translations: [Chronic pain syndrome] Onset: 2025 Chronic Other nervous system disorders (1 source) [...] to infectious organism] Episodic Residual codes; unclassified (3 sources) Pain; Translations: [Pain, unspecified] Episodic Residual codes; unclassified (1 source) Drug therapy finding; Translations: [Other specified health status] 01-28-2025 Episodic Screening and history of mental health and substance abuse codes (20 sources) Tobacco use and exposure - finding; [...] [Acute kidney failure, unspecified] Onset: 08-08-2020 Episodic Allergic reactions (1 source) Contact dermatitis; [...] of breath] Onset: 02-07-2024 02-07-2024 Episodic Other non-traumatic joint disorders (20 [...] Test Name Value Interpretation Reference Range Facility OVon 2025 CNOV Office Visit (FAMPWS ) OBDULIOMARYSE ([id number]) 1955 M Date Time Provider Department 02/02/25 8:00 AM TASHA ACUNA During your visit today, we recorded the following information about you: Pulse Respiration Blood pressure Weight 82/minute 16/minute 124/90 93.4 kg Height 1.765 m Tasha Acuna MD 2025 2:12 PM Addendum Family Medicine OUTPATIENT VISIT 2025 CC: Establish care HPI: 70 year old male patient with a history of Substance abuse, ACTIVE COCAINE AND ETOH ABUSE Denies IVDU Chronic hip and back pain on gabapentin, flexeril, naproxen and actively being prescribed hydrocodone-acetaminop hen by pain management Tobacco abuse, about 60 years, about 3/4 pack per day. HTN , nifedipine HLD on lipitor, last LDL 37 Mild internal carotid stenosis 02/07, under 50% 50-69% left extra cranial internal carotid stenosis CAD s/p CABG in 2021 Here to establish care Being prescribed hydrocodone-acetaminop hen by pain management Last urine tox had cocaine positivity in 09/08. Here to establish care. Reports when he takes gabapentin TID it relieves his pain but feels it is somewhat sedating. BP at home: 130-180/90-118 Measuring every other day Working on quitting tobacco but does not want chantix as he feels it made him irritable before. Wants to quit on his own and feels he can do this by our next visit in two months. Has not taken his BP meds for 2-3 weeks he states and not sure if he took any this AM. He had a CABG in 2021 but stopped following up because he got mad at them, meaning his cardiologists. Reports he was on asa before and he stopped only because he became frustrated with his cardiologists before, not due to intolerance. States he has chronic shortness of breath and used to use an inhaler. He has stable mild shortness of breath with exertion. No chest pain, PND or orthopnea. No cough. No past hx of MT or stents. Denies LE edema. 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 States he threw out his hydrocodone-acetaminop hen as he is a [employer]od[employer] and does not believe in it's use. I asked him why he had a positive cocaine urine tox from a year ago, and he states he does not know how it could have been positive. However, later this visit, he becomes emotional and states he had an emotional crisis last week, had an issue with housing instability and abused ETOH and cocaine for 4 days. Says he turned back to God and then a pals specialist helped him find housing in a [facility] house of some sort. He denies that he wants social work support at this time and says he is committed to sobriety. States he is not using opiates. Does have stable housing right now. Review of Systems PAIN ASSESSMENT: as above GENERAL: No weight loss, or fevers HEENT: Negative for frequent or significant headaches RESPIRATORY: Negative for cough, wheezing. Endorsing Shortness of Breath as above CARDIOVASCULAR: Negative for chest pain, palpitations, PND or orthopnea GI: No nausea, vomiting, or diarrhea or abdominal pain. No SD bleeding or melana : No history of dysuria, frequency, urgency, or change in urine appearance NEURO: No history of headaches, numbness, weakness, or changes to vision or hearing Health maintenance: Abdominal Aortic Aneurysm Screening Never done Pneumococcal Vaccine: 50+(1 of 2 - PCV) Never done Prostate Cancer Screening Discussion Never done Colorectal Cancer Screening Never done Shingrix Vaccine(1 of 2) Never done Advance Directive Discussion Never done Medicare Advantage Annual Wellness Visit Never done Allergies: ALLERGIES Allergen Reactions Lisinopril Swelling Facial swelling Medications: NIFEdipine XL (ADALAT CC) 30 mg 24 hr tablet Take 1 tablet by mouth once daily. atorvastatin (LIPITOR) 40 mg tablet Take 1 tablet by mouth once daily. gabapentin (NEURONTIN) 800 mg tablet Take 1 tablet by mouth three times a day. aspirin, enteric coated (ECOTRIN LOW STRENGTH) 81 mg EC tablet Take 1 tablet by mouth once daily. 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 No pertinent family history. BP 124/90 Pulse 82 Resp 16 Ht 176.5 cm (5' 9.5) Wt 93.4 kg (206 lb) SpO2 96% BMI 29.98 kg/m? 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 No abnormal posturing or positioning. Speech is normal. Strength grossly intact. RESP: Clear lungs bilateral with good air entry, No increased work of breathing CVS: RRR, No murmur. Pulses 2+. GI: Abdomen is soft, non distended, non tender. No masses or hepat (more content not included)... Normal [facility] NT-proBNP SerPl-ncon 02-02 Natriuretic peptide.B prohormone N-Terminal [Mass/Vol] <36 Normal <125 [facility] Comment on above: Order Comment: Speci men Type: BLOOD SPECIMEN Ordering Facility: [facility] Address: [address] [place] [address] Performed By: #### 3 3762-6 #### [facility] CLIA [id number] [address] [place] [address] [place] Absolute lymphocyte countOrd ered By: Darren Bahena on 01-28-2025 Lymphocytes Auto (Unsp spec) [#/Vol] 2.04 10*3/uL 0.83-4.51 [facility] Absolute neutrophil countOrd ered By: Darren Bahena on 01-28-2025 Neutrophils (Bld) [#/Vol] 5.6 10*3/uL 2.0-7.7 [facility] Anion gap in Serum or Plasma Ordered By: Darren Bahena on 01-28-2025 Anion gap [Moles/Vol] 11 mmol/L 5-15 [facility] Automated lymphocyte count a s percentage of total leukocytesOrdered By: Darren Bahena on 01-28-2025 Lymphocytes/100 WBC Auto (Unsp spec) 24.1 % - [facility] BUN/creatinine ratioOrdered By: Darren Bahena on 01-28-2025 Urea nitrogen/Creatinine [Mass ratio] 13.8 mg/mg 10-20 [facility] Basic Metabolic Profile (BMP )on 01-28-2025 BUN/CRE 13.8 RATIO Normal - [facility] Comment on above: Performed By: #### L 500.2500, L100.0100 #### [facility] [address] [place], [address] Calcium [Mass/Vol] 9.6 mg/dL Normal 7.6-11.0 [facility] Comment on above: Performed By: #### L 500.2500, L100.0100 #### [facility] [address] [place], [address] Chloride [Moles/Vol] 105 mmol/L Normal 98-108 [facility] Comment on above: Performed By: #### L 500.2500, L100.0100 #### [facility] [address] [place], [address] CO2 [Moles/Vol] 24.8 mmol/L Normal 21.0-32.0 [facility] Comment on above: Performed By: #### L 500.2500, L100.0100 #### [facility] [address] [place], [address] Creatinine [Mass/Vol] 0.96 mg/dL Normal 0.70-1.20 [facility] Comment on above: Performed By: #### L 500.2500, L100.0100 #### [facility] [address] [place], [address] ECRCL 81.96 ml/min Normal 50-250 [facility] Comment on above: Performed By: #### L 500.2500, L100.0100 #### [facility] [address] [place], [address] GAP 11 Normal 5-15 [facility] Comment on above: Performed By: #### L 500.2500, L100.0100 #### [facility] [address] [place], [address] GFR/1.73 sq M.predicted among non-blacks MDRD (S/P/Bld) [Vol rate/Area] 87 mL/min/{1.73_m2} Normal >60 [facility] Comment on above: Result Comment: mL/m in/1.73m2 CKD-EPI Creatinine Equation (2020) Performed By: #### L 500.2500, L100.0100 #### [facility] [address] [place], [address] Glucose [Mass/Vol] 105 mg/dL High 70-99 [facility] Comment on above: Performed By: #### L 500.2500, L100.0100 #### [facility] [address] [place], [address] Potassium [Moles/Vol] 4.1 mmol/L Normal 3.3-5.1 [facility] Comment on above: Performed By: #### L 500.2500, L100.0100 #### [facility] [address] [place], [address] Sodium [Moles/Vol] 140 mmol/L Normal 133-145 [facility] Comment on above: Performed By: #### L 500.2500, L100.0100 #### [facility] [address] [place], [address] Urea nitrogen [Mass/Vol] 13 mg/dL Normal 4-19 [facility] Comment on above: Performed By: #### L 500.2500, L100.0100 #### [facility] [address] [place], [address] Basophil percentageOrdered B y: Darren Bahena on 01-28-2025 Basophils/100 WBC (Bld) 0.4 % 0-1 [facility] CBC W/Diff, Automatedon 01-15 Absolute Lymph 2.04 X10 3/uL Normal 0.83-4.51 [facility] Comment on above: Performed By: #### L 500.2500, L100.0100 #### [facility] [address] [place], [address] Absolute Neut 5.6 X10 3/uL Normal 2.0-7.7 [facility] Comment on above: Performed By: #### L 500.2500, L100.0100 #### [facility] [address] [place], [address] Basophils/100 WBC (Bld) 0.4 % Normal 0-1 [facility] Comment on above: Performed By: #### L 500.2500, L100.0100 #### [facility] [address] [place], [address] Eosinophils/100 WBC (Bld) 2.2 % Normal 0-5 [facility] Comment on above: Performed By: #### L 500.2500, L100.0100 #### [facility] [address] [place], [address] Erythrocyte distribution width (RBC) [Ratio] 13.5 % Normal 11.6-14.6 [facility] Comment on above: Performed By: #### L 500.2500, L100.0100 #### [facility] [address] [place], [address] Hematocrit (Bld) [Volume fraction] 45.6 % Normal 40-54 [facility] Comment on above: Performed By: #### L 500.2500, L100.0100 #### [facility] [address] [place], [address] Hemoglobin (Bld) [Mass/Vol] 16.0 g/dL Normal 13.0-16.5 [facility] Comment on above: Performed By: #### L 500.2500, L100.0100 #### [facility] [address] [place], [address] IG% 0.600 Normal 0.0-0.9 [facility] Comment on above: Result Comment: IG% - Immature Granulocytes (promyelocytes, myelocytes and metamyelocytes) > 1% indicates that a LEFT SHIFT is Present. Performed By: #### L 500.2500, L100.0100 #### [facility] [address] [place], [address] Lymphocytes/100 WBC (Bld) 24.1 % Normal 19-41 [facility] Comment on above: Performed By: #### L 500.2500, L100.0100 #### [facility] [address] [place], [address] MCH (RBC) [Entitic mass] 31.4 pg Normal 27.0-32.0 [facility] Comment on above: Performed By: #### L 500.2500, L100.0100 #### [facility] [address] [place], [address] MCHC (RBC) [Mass/Vol] 35.1 g/dL Normal 32-36 [facility] Comment on above: Performed By: #### L 500.2500, L100.0100 #### [facility] [address] [place], [address] MCV (RBC) [Entitic vol] 89.4 fL Normal 80-94 [facility] Comment on above: Performed By: #### L 500.2500, L100.0100 #### [facility] [address] [place], [address] Monocytes/100 WBC (Bld) 6.6 % Normal 0-10 [facility] Comment on above: Performed By: #### L 500.2500, L100.0100 #### [facility] [address] [place], [address] Neutrophils/100 WBC (Bld) 66.1 % Normal 47-70 [facility] Comment on above: Performed By: #### L 500.2500, L100.0100 #### [facility] [address] [place], [address] Nucleated RBC (Bld) [#/Vol] 0 10*3/uL Normal 0-5 [facility] Comment on above: Performed By: #### L 500.2500, L100.0100 #### [facility] [address] [place], [address] Platelet mean volume (Bld) [Entitic vol] 10.2 fL Normal 6.2-12.0 [facility] Comment on above: Performed By: #### L 500.2500, L100.0100 #### [facility] [address] [place], [address] Platelets (Bld) [#/Vol] 235 10*3/uL Normal 150-450 [facility] Comment on above: Performed By: #### L 500.2500, L100.0100 #### [facility] [address] [place], [address] RBC (Bld) [#/Vol] 5.10 10*6/uL Normal 4.6-6.2 [facility] Comment on above: Performed By: #### L 500.2500, L100.0100 #### [facility] [address] [place], [address] RDW SD 44.3 fl High 35.1-43.9 [facility] Comment on above: Performed By: #### L 500.2500, L100.0100 #### [facility] [address] [place], [address] WBC (Bld) [#/Vol] 8.5 10*3/uL Normal 4.4-11.0 [facility] Comment on above: Performed By: #### L 500.2500, L100.0100 #### [facility] [address] [place], [address] Carbon dioxide, total [Moles /volume] in Central venous bloodOrdered By: Darren Bahena on 01-28-2025 CO2 [Moles/Vol] 24.8 mmol/L 21.0-32.0 [facility] Chloride assayOrdered By: Rob Bahena on 01-28-2025 Chloride [Moles/Vol] 105 mmol/L 98-108 [facility] Emergency Department Summary on 01-28-2025 Emergency Department Summary [facility] Medical Records Department [address] [place] [address] Emergency Department Summary 01/28/25 MR#: [id number] Acct: [id number] Name: MARYSE MAK Rep #: [id number] : 1955 69 From: Darren Bahena MD PCP: Care Physician,No Primary Status:REG ER Location: ED HPI History of Present Illness Chief Complaint: Hypertension Informant: patient Onset/Context/Timing Onset: Weeks Context: Gradual Onset Timing: Continuous Current Severity: Mild Maximum Severity: Mild Narrative Narrative: 69-year-old male originally from [place] now moved to [place] has been there about a week or so. Has been out of his blood pressure meds for 2 to 3 weeks. Says blood pressure has been running high. He is unsure what he was on. Said he cannot take FELIX inhibitors because he had angio edema with those. He says that he has felt off with malaise. Denies vomiting or diarrhea. No chest pain or severe headaches. Prior similar symptoms: Yes Recent Illness/Hospitalizatio n: No PFSH PFSH Medical History Carotid arterial disease Hypertension Neuropathy Vertigo Coronary atherosclerosis of bypass graft Home Medications ???Medication ???Instructions ???Recorded ???Last Taken ???Type aspirin 81 mg tablet,delayed 81 mg PO DAILY 01/19/24 01/19/24 H istory release brompheniramine-pseudo ephedrine-DM 5 ml PO 4X/DAY PRN PRN cough 09/07 Unknown History 2 mg-30 mg-10 mg/5 mL oral syrup gabapentin 800 mg tablet 800 mg PO TID 01/19/24 01/19/24 Hi story hydrocodone 7.5 mg-acetaminophen 1 tab PO TID PRN PRN pain 01/19/24 01/19/24 History 325 mg tablet atorvastatin 40 mg tablet 40 mg PO QHS #30 tabs 01/20/24 Unk nown Rx gabapentin 800 mg tablet 800 mg PO TID 20 days #60 tabs Unknown Rx nifedipine 30 mg tablet,extended 30 mg PO DAILY 30 days #30 tabs Unknown Rx release Allergy/AdvReac Type Severity Reaction Status Date / Time lisinopril Allergy Angioedema Verified 01/28/25 16:48 Social History Smoking Status: Current every day smoker tobacco type: cigarettes ROS ROS ED ROS Narrative Generalized malaise. Constitutional Constitutional ED: Denies chills or fever(s) Eyes Eyes: Denies blurry vision Cardiovascular Cardiovascular: Denies chest pain or palpitations Respiratory/Chest Respiratory/Chest: Denies cough or dyspnea Gastrointestinal Gastrointestinal: Denies abdominal pain, constipation, diarrhea, melena, nausea or vomiting Genitourinary Genitourinary ED: Denies dysuria or hematuria Musculoskeletal Musculoskeletal: Denies arthralgias or back pain Integumentary Denies abscess Neurologic Neurologic: Denies headache(s) Psychiatric Psychiatric: Denies anxiety or depression Hematologic/Lymphatic Hematologic/Lymphatic: Reports none Allergic/Immunologic Allergic/Immunologic ED: Denies mouth swelling, tongue swelling or urticaria EXAM Physical Exam Narrative Exam Narrative: 69-year-old male sitting upright in the chair and in stood up and got in the bed. Vital signs are stable afebrile is blood pressure is elevated 179/111. Does not look septic GI distress. Is a family member I believe with him. H EENT exam pupils round react light. Moist membranes. No facial droop. No trauma. Neck nontender. Back nontender. Prior back surgical scars. Lungs clear to auscultation bilaterally. Heart regular rhythm rate about 70 no murmur. Chest wall ribs nontender. Abdomen soft nontender. Moving all 4 extremities. 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 Dorsi plantarflexion intact. Normal strength. Normal radial pulses. Calves are nontender without edema or cords. Neurologically he is awake and alert. Answering questions following commands. Const Vital Signs: 01/28/25 16:46 01/28/25 17:18 Temperature 98.4 F Temperature Source Oral Pulse Rate 67 Respiratory Rate 18 Respiratory Pattern Normal Blood Pressure 179/111 H Blood Pressure Mean 133 Pulse Ox 99 Oxygen Delivery Method Room Air Positive well nourished and well developed; Negative for cachectic or unkempt General Appearance ED: well developed and NAD; Negative for unkempt, cachectic, cyanotic, diaphoretic or pallor Nutritional Appearance: Negative for cachectic HEENT Reports moist mucous membranes Eyes PERRL and EOMs intact bilaterally Neck no lymphadenopathy, supple and no JVD Chest Wall inspection of chest normal and palpation of chest normal Resp normal respiratory effort and clear to auscultation bilaterally Cardio regular rate, regular rhythm, S1 normal heart sound, S2 normal heart sound and no murmurs GI normal to inspection, nondistended, normoactive bowel sounds, non-tender and non-distended A (more content not included)... Normal [facility] Eosinophil percentageOrdered By: Darren Bahena on 01-28-2025 Eosinophils/100 WBC (Bld) 2.2 % 0-5 [facility] Erythrocyte distribution wid th ratioOrdered By: Darren Bahena on 01-28-2025 Erythrocyte distribution width (RBC) [Ratio] 13.5 % 11.6-14.6 [facility] Erythrocyte distribution wid th standard deviationOrdered By: Darren Bahena on 01-28-2025 Erythrocyte distribution width (RBC) [Ratio] 44.3 fl High 35.1-43.9 [facility] Glomerular filtration rate ( GFR) estimation/1.73 sq m using serum, plasma, or whole bOrdered By: Darren Bahena on 01-28-2025 GFR/1.73 sq M.predicted among non-blacks MDRD (S/P/Bld) [Vol rate/Area] 87 mL/min/{1.73_m2} >60 [facility] Comment on above: mL/min/1.73m2 CKD-EP I Creatinine Equation (2020) Hematocrit Auto (Bld) [Volum e fraction]Ordered By: Darren Bahena on 01-28-2025 Hematocrit (Bld) [Volume fraction] 45.6 % 40-54 [facility] Hemoglobin measurementOrdere d By: Darren Bahena on 01-28-2025 Hemoglobin (Bld) [Mass/Vol] 16.0 g/dL 13.0-16.5 [facility] Immature granulocytes/100 WB C Auto (Bld)Ordered By: Darren Bahena on 01-28-2025 Immature granulocytes/100 WBC (Bld) 0.600 % 0.0-0.9 [facility] Comment on above: IG% - Immature Granu locytes (promyelocytes, myelocytes and metamyelocytes) > 1% indicates that a LEFT SHIFT is Present. MCV (mean corpuscular volume ) determinationOrdered By: Darren Bahena on 01-28-2025 MCV (RBC) [Entitic vol] 89.4 fL 80-94 [facility] Mean corpuscular hemoglobin (MCH) determinationOrdered By: Darren Bahena on 01-28-2025 MCH (RBC) [Entitic mass] 31.4 pg 27.0-32.0 [facility] Mean corpuscular hemoglobin concentration (MCHC) determinationOrdered By: Darren Bahena on 01-28-2025 MCHC (RBC) [Mass/Vol] 35.1 g/dL 32-36 [facility] Mean platelet volume determi nationOrdered By: Darren Bahena on 01-28-2025 Platelet mean volume (Bld) [Entitic vol] 10.2 fL 6.2-12.0 [facility] Monocyte percentageOrdered B y: Darren Bahena on 01-28-2025 Monocytes/100 WBC (Bld) 6.6 % 0-10 [facility] Neutrophil percentageOrdered By: Darren Bahena on 01-28-2025 Neutrophils/100 WBC (Bld) 66.1 % 47-70 [facility] Nucleated red blood cell per centageOrdered By: Darren Bahena on 01-28-2025 Nucleated RBC/100 WBC (Bld) [Ratio] 0 % 0-5 [facility] Platelet countOrdered By: Rob Bahena on 01-28-2025 Platelets (Bld) [#/Vol] 235 10*3/uL 150-450 [facility] Potassium measurement (mass/ volume)Ordered By: Darren Bahena on 01-28-2025 Potassium (Unsp spec) [Mass/Vol] 4.1 mmol/L 3.3-5.1 [facility] RBC Auto (Bld) [#/Vol]Ordere d By: Darren Bahena on 01-28-2025 RBC (Bld) [#/Vol] 5.10 10*6/uL 4.6-6.2 [facility] Serum creatinine measurement (mass/volume)Ordered By: Darren Bahena on 01-28-2025 Creatinine [Mass/Vol] 0.96 mg/dL 0.70-1.20 [facility] Serum glucose measurement (m ass/volume)Ordered By: Darren Bahena on 01-28-2025 Glucose [Mass/Vol] 105 mg/dL High 70-99 [facility] Serum or plasma calcium ronak urement (mass/volume)Ordered By: Darren Bahena on 01-28-2025 Calcium [Mass/Vol] 9.6 mg/dL 7.6-11.0 [facility] Serum or plasma urea nitroge n measurement (mass/volume)Ordered By: Darren Bahena on 01-28-2025 Urea nitrogen [Mass/Vol] 13 mg/dL 4-19 [facility] Sodium levelOrdered By: Darren Bahena on 01-28-2025 Sodium [Moles/Vol] 140 mmol/L 133-145 [facility] White blood cell (WBC) count Ordered By: Darren Bahena on 01-28-2025 WBC (Bld) [#/Vol] 8.5 10*3/uL 4.4-11.0 [facility] BASIC METABOLIC PANELon 04-2 Anion gap [Moles/Vol] 14 mmol/L Normal 10-20 [facility] Comment on above: Order Comment: [facility] has implemented the eGFR calculation approach that does not have a coefficient for race that conforms to the NKF-ASN Task Force Recommendations. Performed By: #### [id number] #### [facility] [address] [place] [address] Berhane Mcclure M.D. [id number] Calcium [Mass/Vol] 9.4 mg/dL Normal 8.4-10.2 [facility] Comment on above: Order Comment: [facility] has implemented the eGFR calculation approach that does not have a coefficient for race that conforms to the NKF-ASN Task Force Recommendations. Performed By: #### [id number] #### [facility] [address] [place] [address] Berhane Mcclure M.D. [id number] Chloride [Moles/Vol] 106 mmol/L Normal 98-108 [facility] Comment on above: Order Comment: [facility] has implemented the eGFR calculation approach that does not have a coefficient for race that conforms to the NKF-ASN Task Force Recommendations. Performed By: #### [id number] #### [facility] [address] [place] [id number] Berhane Mcclure M.D. [id number] Creatinine [Mass/Vol] 0.84 mg/dL Normal 0.80-1.30 [facility] Comment on above: Order Comment: [facility] has implemented the eGFR calculation approach that does not have a coefficient for race that conforms to the NKF-ASN Task Force Recommendations. Performed By: #### [id number] #### [facility] [address] [place] [address] Berhane Mcclure M.D. [id number] EGFR 96 mL/min/1.73 m2 Normal >=60 [facility] Comment on above: Order Comment: [facility] has implemented the eGFR calculation approach that does not have a coefficient for race that conforms to the NKF-ASN Task Force Recommendations. Result Comment: Rosanne mated GFR was calculated using the 2020 CKD-EPI creatinine equation. Performed By: #### [id number] #### [facility] [address] [place] [id number] Berhane Mcclure M.D. [id number] Glucose [Mass/Vol] 95 mg/dL Normal 65-99 [facility] Comment on above: Order Comment: [facility] has implemented the eGFR calculation approach that does not have a coefficient for race that conforms to the NKF-ASN Task Force Recommendations. Performed By: #### [id number] #### [facility] [address] [place] [id number] Berhane Mcclure M.D. [id number] HCO3 (Bld) [Moles/Vol] 24 mmol/L Normal 21-32 [facility] Comment on above: Order Comment: [facility] has implemented the eGFR calculation approach that does not have a coefficient for race that conforms to the NKF-ASN Task Force Recommendations. Performed By: #### [id number] #### [facility] [address] [place] [id number] Berhane Mcclure M.D. [id number] Potassium [Moles/Vol] 4.4 mmol/L Normal 3.5-5.1 [facility] Comment on above: Order Comment: [facility] has implemented the eGFR calculation approach that does not have a coefficient for race that conforms to the NKF-ASN Task Force Recommendations. Result Comment: Slig htly Hemolyzed Performed By: #### [id number] #### [facility] [address] [place], [place] [id number] Berhane Mcclure M.D. [id number] Sodium [Moles/Vol] 140 mmol/L Normal 135-145 [facility] Comment on above: Order Comment: [facility] has implemented the eGFR calculation approach that does not have a coefficient for race that conforms to the NKF-ASN Task Force Recommendations. Performed By: #### [id number] #### [facility] [address] [place] [id number] Berhane Mcclure M.D. [id number] Urea nitrogen [Mass/Vol] 16 mg/dL Normal 8-25 [facility] Comment on above: Order Comment: [facility] has implemented the eGFR calculation approach that does not have a coefficient for race that conforms to the NKF-ASN Task Force Recommendations. Performed By: #### [id number] #### [facility] [address] [place] [address] Berhane Mcclure M.D. [id number] Urea nitrogen/Creatinine [Mass ratio] 19.0 mg/mg Normal 10.0-20.0 [facility] Comment on above: Order Comment: [facility] has implemented the eGFR calculation approach that does not have a coefficient for race that conforms to the NKF-ASN Task Force Recommendations. Performed By: #### 4 [id number] #### [facility] [address] [address] Berhane Mcclure M.D. [id number] Basic metabolic 2000 panelOr dered By: Zhanna Richmond on 09-11-2024 Anion gap [Moles/Vol] 14 mmol/L 10 - 2 0 mmol/L [facility] Calcium [Mass/Vol] 9.4 mg/dL 8.4 - 10. 2 mg/dL [facility] Chloride [Moles/Vol] 106 mmol/L 98 - 10 8 mmol/L [facility] Creatinine [Mass/Vol] 0.84 mg/dL 0.80 - 1.30 mg/dL [facility] GFR/1.73 sq M.predicted CKD-EPI (S/P/Bld) [Vol rate/Area] 96 - PINF [facility] Comment on above: Estimated GFR was ca lculated using the 2020 CKD-EPI creatinine equation. Glucose [Mass/Vol] 95 mg/dL 65 - 99 mg/dL [facility] HCO3 [Moles/Vol] 24 mmol/L 21 - 32 mmol/L [facility] Interpretation and review of laboratory results Normal [facility] Potassium [Moles/Vol] 4.4 mmol/L 3.5 - 5.1 mmol/L [facility] Comment on above: Slightly Hemolyzed Sodium [Moles/Vol] 140 mmol/L 135 - 145 mmol/L [facility] Urea nitrogen [Mass/Vol] 16 mg/dL 8 - 25 mg/dL [facility] Urea nitrogen/Creatinine [Mass ratio] 19 mg/mg 10.0 - 20.0 [facility] has implemented the eGFR calculation approach that does not have a coefficient for race that conforms to the NKF-ASN Task Force Recommendations. [facility] CBCon 09-11-2024 AUTO NRBC 0.0 % Normal [facility] Comment on above: Performed By: #### 4 [id number] #### [facility] [address] [place] [address] Berhane Mcclure M.D. [id number] AUTO NRBC ABS COUNT 0.00 K/mcL Normal 0.00-0.00 [facility] Comment on above: Performed By: #### 4 [id number] #### [facility] [address] [place] [address] Berhane Mcclure M.D. [id number] Erythrocyte distribution width (RBC) [Ratio] 13.9 % Normal 11.6-14.8 [facility] Comment on above: Performed By: #### 4 [id number] #### [facility] [address] [place] [address] Berhane Mcclure M.D. [id number] Hematocrit (Bld) [Volume fraction] 46.8 % Normal 41.0-53.0 [facility] Comment on above: Performed By: #### 4 [id number] #### [facility] [address] [place] [address] Berhane Mcclure M.D. [id number] Hemoglobin (Bld) [Mass/Vol] 15.1 g/dL Normal 13.5-17.5 [facility] Comment on above: Performed By: #### 4 [id number] #### [facility] [address] [place] [address] Berhane Mcclure M.D. [id number] MCH (RBC) [Entitic mass] 29.4 pg Normal 26.0-34.0 [facility] Comment on above: Performed By: #### 4 [id number] #### [facility] [address] [place] [address] Berhane Mcclure M.D. [id number] MCV (RBC) [Entitic vol] 91.1 fL Normal 80.0-100.0 [facility] Comment on above: Performed By: #### 4 [id number] #### [facility] [address] [place] [address] Berhane Mcclure M.D. [id number] MEAN CORPUSCULAR HEMOGLOBIN CONC 32.3 g/dL Normal 31.0-37.0 [facility] Comment on above: Performed By: #### 4 [id number] #### [facility] [address] [place], [place] [id number] Berhane Mcclure M.D. [id number] Platelet mean volume (Bld) [Entitic vol] 9.7 fL Normal 9.4-12.4 [facility] Comment on above: Performed By: #### 4 [id number] #### [facility] [address] [place], [place] [id number] Berhane Mcclure M.D. [id number] Platelets (Bld) [#/Vol] 305 10*3/uL Normal 150-400 [facility] Comment on above: Performed By: #### 4 [id number] #### [facility] [address] [place], [place] [id number] Berhane Mcclure M.D. [id number] RBC (Bld) [#/Vol] 5.14 10*6/uL Normal 4.50-5.90 [facility] Comment on above: Performed By: #### 4 [id number] #### [facility] [address] [place], [place] [id number] Berhane Mcclure M.D. [id number] WBC (Bld) [#/Vol] 9.13 10*3/uL Normal 4.50-11.00 [facility] Comment on above: Performed By: #### 4 [id number] #### [facility] [address] [place], [place] [id number] Berhane Mcclure M.D. [id number] CBC panel Auto (Bld)on 09-11 Erythrocyte distribution width (RBC) [Entitic vol] 13.9 % 11.6 - 14.8 % [facility] Hematocrit (Bld) [Volume fraction] 46.8 % 41.0 - 53.0 % [facility] Hemoglobin (Bld) [Mass/Vol] 15.1 g/dL 13.5 - 17.5 g/dL [facility] MCH (RBC) [Entitic mass] 29.4 pg 26.0 - 34.0 pg [facility] MCHC (RBC) [Mass/Vol] 32.3 g/dL 31.0 - 37.0 g/dL [facility] MCV (RBC) [Entitic vol] 91.1 fL 80.0 - 100.0 fL [facility] Nucleated RBC (Bld) [#/Vol] 0 10*3/uL [facility] Nucleated RBC/100 WBC (Bld) [Ratio] 0 % [facility] Platelet mean volume (Bld) [Entitic vol] 9.7 fL 9.4 - 12.4 fL [facility] Platelets (Bld) [#/Vol] 305 10*3/uL [facility] RBC (Bld) [#/Vol] 5.14 10*6/uL [facility] WBC (Bld) [#/Vol] 9.13 10*3/uL [facility] Wound Aerobic And Anaerobic CultureOrdered By: Annemarie Alva on 09-11-2024 Bacteria identified Aer cx Nom (Unsp spec) No Anaerobic Growth after 5 days [facility] Bacteria identified Aer cx Nom (Unsp spec) Light Growth Streptococcus pyogenes (Group A) Abnormal [facility] Interpretation and review of laboratory results Abnormal [facility] Microscopic observation Gram stain Nom (Unsp spec) No Organisms Seen [facility] Microscopic observation Gram stain Nom (Unsp spec) Few WBC [facility] Microscopic observation Gram stain Nom (Unsp spec) Many RBC [facility] BASIC METABOLIC PANELon 08-16 Anion gap [Moles/Vol] 14 mmol/L Normal 10-20 [facility] [place] Comment on above: Order Comment: [facility] has implemented the eGFR calculation approach that does not have a coefficient for race that conforms to the NKF-ASN Task Force Recommendations. Performed By: #### 4 [id number] #### [facility] [address] [place], [place] [address] Berhane Mcclure M.D. [id number] Calcium [Mass/Vol] 9.4 mg/dL Normal 8.4-10.2 [facility] Comment on above: Order Comment: [facility] has implemented the eGFR calculation approach that does not have a coefficient for race that conforms to the NKF-ASN Task Force Recommendations. Performed By: #### 4 [id number] #### [facility] [address] [place] [address] Berhane Mcclure M.D. [id number] Chloride [Moles/Vol] 103 mmol/L Normal 98-108 [facility] Comment on above: Order Comment: [facility] has implemented the eGFR calculation approach that does not have a coefficient for race that conforms to the NKF-ASN Task Force Recommendations. Performed By: #### 4 [id number] #### [facility] [address] [place] [address] Berhane Mcclure M.D. [id number] Creatinine [Mass/Vol] 0.88 mg/dL Normal 0.80-1.30 [facility] [place] [facility] Comment on above: Order Comment: [facility] has implemented the eGFR calculation approach that does not have a coefficient for race that conforms to the NKF-ASN Task Force Recommendations. Performed By: #### 4 [id number] #### [facility] [address] [place] [address] Berhane Mcclure M.D. [id number] EGFR 94 mL/min/1.73 m2 Normal >=60 [facility] Comment on above: Order Comment: [facility] has implemented the eGFR calculation approach that does not have a coefficient for race that conforms to the NKF-ASN Task Force Recommendations. Result Comment: Rosanne mated GFR was calculated using the 2020 CKD-EPI creatinine equation. Performed By: #### 4 [id number] #### [facility] [address] [place] [address] Berhane Mcclure M.D. [id number] Glucose [Mass/Vol] 115 mg/dL High 65-99 [facility] Comment on above: Order Comment: [facility] has implemented the eGFR calculation approach that does not have a coefficient for race that conforms to the NKF-ASN Task Force Recommendations. Performed By: #### 4 [id number] #### [facility] [address] [place] [address] Berhane Mcclure M.D. [id number] HCO3 (Bld) [Moles/Vol] 26 mmol/L Normal 21-32 [facility] Comment on above: Order Comment: [facility] has implemented the eGFR calculation approach that does not have a coefficient for race that conforms to the NKF-ASN Task Force Recommendations. Performed By: #### 4 [id number] #### [facility] [address] [place] [address] Berhane Mcclure M.D. [id number] Potassium [Moles/Vol] 4.4 mmol/L Normal 3.5-5.1 [facility] Comment on above: Order Comment: [facility] has implemented the eGFR calculation approach that does not have a coefficient for race that conforms to the NKF-ASN Task Force Recommendations. Result Comment: Slig htly Hemolyzed Performed By: #### 4 [id number] #### [facility] [address] [place] [address] Berhane Mcclure M.D. [id number] Sodium [Moles/Vol] 139 mmol/L Normal 135-145 [facility] Comment on above: Order Comment: [facility] has implemented the eGFR calculation approach that does not have a coefficient for race that conforms to the NKF-ASN Task Force Recommendations. Performed By: #### 4 [id number] #### [facility] [address] [place] [address] Berhane Mcclure M.D. [id number] Urea nitrogen [Mass/Vol] 14 mg/dL Normal 8-25 [facility] Comment on above: Order Comment: [facility] has implemented the eGFR calculation approach that does not have a coefficient for race that conforms to the NKF-ASN Task Force Recommendations. Performed By: #### 4 [id number] #### [facility] [place], [place] [address] Berhane Mcclure M.D. [id number] Urea nitrogen/Creatinine [Mass ratio] 15.9 mg/mg Normal 10.0-20.0 [facility] Comment on above: Order Comment: [facility] has implemented the eGFR calculation approach that does not have a coefficient for race that conforms to the NKF-ASN Task Force Recommendations. Performed By: #### 4 [id number] #### [facility] [address] [place] [address] Berhane Mcclure M.D. [id number] Basic metabolic 2000 panelOr dered By: Nicole Cobian on 09-10-2024 Anion gap [Moles/Vol] 14 mmol/L 10 - 2 0 mmol/L [facility] Calcium [Mass/Vol] 9.4 mg/dL 8.4 - 10. 2 mg/dL [facility] Chloride [Moles/Vol] 103 mmol/L 98 - 10 8 mmol/L [facility] Creatinine [Mass/Vol] 0.88 mg/dL 0.80 - 1.30 mg/dL [facility] GFR/1.73 sq M.predicted CKD-EPI (S/P/Bld) [Vol rate/Area] 94 - PINF [facility] Comment on above: Estimated GFR was ca lculated using the 2020 CKD-EPI creatinine equation. Glucose [Mass/Vol] 115 mg/dL High 65 - 99 mg/dL [facility] HCO3 [Moles/Vol] 26 mmol/L 21 - 32 mmol/L [facility] Interpretation and review of laboratory results Abnormal [facility] Potassium [Moles/Vol] 4.4 mmol/L 3.5 - 5.1 mmol/L [facility] Comment on above: Slightly Hemolyzed Sodium [Moles/Vol] 139 mmol/L 135 - 145 mmol/L [facility] Urea nitrogen [Mass/Vol] 14 mg/dL 8 - 25 mg/dL [facility] Urea nitrogen/Creatinine [Mass ratio] 15.9 mg/mg 10.0 - 20.0 [facility] has implemented the eGFR calculation approach that does not have a coefficient for race that conforms to the NKF-ASN Task Force Recommendations. [facility] CBCon 09-10-2024 AUTO NRBC 0.0 % Normal [facility] Comment on above: Performed By: #### 4 [id number] #### [facility] [address] [place] [address] Berhane Mcclure M.D. [id number] AUTO NRBC ABS COUNT 0.00 K/mcL Normal 0.00-0.00 [facility] Comment on above: Performed By: #### 4 [id number] #### [facility] [address] [place] [address] Berhane Mcclure M.D. [id number] Erythrocyte distribution width (RBC) [Ratio] 13.9 % Normal 11.6-14.8 [facility] Comment on above: Performed By: #### 4 [id number] #### [facility] [address] [place] [address] Berhane Mcclure M.D. [id number] Hematocrit (Bld) [Volume fraction] 46.2 % Normal 41.0-53.0 [facility] Comment on above: Performed By: #### 4 [id number] #### [facility] [address] [place] [address] Berhane Mcclure M.D. [id number] Hemoglobin (Bld) [Mass/Vol] 15.3 g/dL Normal 13.5-17.5 [facility] Comment on above: Performed By: #### 4 [id number] #### [facility] [address] [place], [place] [id number] Berhane Mcclure M.D. [id number] MCH (RBC) [Entitic mass] 30.8 pg Normal 26.0-34.0 [facility] Comment on above: Performed By: #### 4 [id number] #### [facility] [address] [place], [place] [address] Berhane Mcclure M.D. [id number] MCV (RBC) [Entitic vol] 93.1 fL Normal 80.0-100.0 [facility] Comment on above: Performed By: #### 4 [id number] #### [facility] [address] [place] [address] Berhane Mcclure M.D. [id number] MEAN CORPUSCULAR HEMOGLOBIN CONC 33.1 g/dL Normal 31.0-37.0 [facility] Comment on above: Performed By: #### 4 [id number] #### [facility] [address] [place], [place] [address] Berhane Mcclure M.D. [id number] Platelet mean volume (Bld) [Entitic vol] 10.2 fL Normal 9.4-12.4 [facility] Comment on above: Performed By: #### 4 [id number] #### [facility] [address] [place], [place] [address] Berhane Mcclure M.D. [id number] Platelets (Bld) [#/Vol] 298 10*3/uL Normal 150-400 [facility] Comment on above: Performed By: #### 4 [id number] #### [facility] [address] [place], [place] [id number] Berhane Mcclure M.D. [id number] RBC (Bld) [#/Vol] 4.96 10*6/uL Normal 4.50-5.90 [facility] Comment on above: Performed By: #### 4 [id number] #### [facility] [address] [place] [address] Berhane Mcclure M.D. [id number] WBC (Bld) [#/Vol] 9.34 10*3/uL Normal 4.50-11.00 [facility] Comment on above: Performed By: #### 4 [id number] #### [facility] [address] [place] [address] Berhane Mcclure M.D. [id number] CBC panel Auto (Bld)on 09-10 Erythrocyte distribution width (RBC) [Entitic vol] 13.9 % 11.6 - 14.8 % [facility] Hematocrit (Bld) [Volume fraction] 46.2 % 41.0 - 53.0 % [facility] Hemoglobin (Bld) [Mass/Vol] 15.3 g/dL 13.5 - 17.5 g/dL [facility] MCH (RBC) [Entitic mass] 30.8 pg 26.0 - 34.0 pg [facility] MCHC (RBC) [Mass/Vol] 33.1 g/dL 31.0 - 37.0 g/dL [facility] MCV (RBC) [Entitic vol] 93.1 fL 80.0 - 100.0 fL [facility] Nucleated RBC (Bld) [#/Vol] 0 10*3/uL [facility] Nucleated RBC/100 WBC (Bld) [Ratio] 0 % [facility] Platelet mean volume (Bld) [Entitic vol] 10.2 fL 9.4 - 12.4 fL [facility] Platelets (Bld) [#/Vol] 298 10*3/uL [facility] RBC (Bld) [#/Vol] 4.96 10*6/uL [facility] WBC (Bld) [#/Vol] 9.34 10*3/uL [facility] BASIC METABOLIC PANELon 08-16 Anion gap [Moles/Vol] 13 mmol/L Normal 10-20 [facility] Comment on above: Order Comment: [facility] has implemented the eGFR calculation approach that does not have a coefficient for race that conforms to the NKF-ASN Task Force Recommendations. Performed By: #### 4 [id number] #### [facility] [address] [place], [place] [address] Berhane Mcclure M.D. [id number] Calcium [Mass/Vol] 9.1 mg/dL Normal 8.4-10.2 [facility] Comment on above: Order Comment: [facility] has implemented the eGFR calculation approach that does not have a coefficient for race that conforms to the NKF-ASN Task Force Recommendations. Performed By: #### 4 [id number] #### [facility] [address] [place] [address] Berhane Mcclure M.D. [id number] Chloride [Moles/Vol] 107 mmol/L Normal 98-108 [facility] Comment on above: Order Comment: [facility] has implemented the eGFR calculation approach that does not have a coefficient for race that conforms to the NKF-ASN Task Force Recommendations. Performed By: #### 4 [id number] #### [facility] [address] [place], [place] [address] Berhane Mcclure M.D. [id number] Creatinine [Mass/Vol] 0.82 mg/dL Normal 0.80-1.30 [facility] Comment on above: Order Comment: [facility] has implemented the eGFR calculation approach that does not have a coefficient for race that conforms to the NKF-ASN Task Force Recommendations. Performed By: #### 4 [id number] #### [facility] [address] [place], [place] [address] Berhane Mcclure M.D. [id number] EGFR 96 mL/min/1.73 m2 Normal >=60 [facility] Comment on above: Order Comment: [facility] has implemented the eGFR calculation approach that does not have a coefficient for race that conforms to the NKF-ASN Task Force Recommendations. Result Comment: Rosanne mated GFR was calculated using the 2020 CKD-EPI creatinine equation. Performed By: #### 4 [id number] #### [facility] [address] [place] [address] Berhane Mcclure M.D. [id number] Glucose [Mass/Vol] 98 mg/dL Normal 65-99 [facility] Comment on above: Order Comment: [facility] has implemented the eGFR calculation approach that does not have a coefficient for race that conforms to the NKF-ASN Task Force Recommendations. Performed By: #### 4 [id number] #### [facility] [address] [place] [address] Berhane Mcclure M.D. [id number] HCO3 (Bld) [Moles/Vol] 25 mmol/L Normal 21-32 [facility] Comment on above: Order Comment: [facility] has implemented the eGFR calculation approach that does not have a coefficient for race that conforms to the NKF-ASN Task Force Recommendations. Performed By: #### 4 [id number] #### [facility] [address] [place] [address] Berhane Mcclure M.D. [id number] Potassium [Moles/Vol] 4.2 mmol/L Normal 3.5-5.1 [facility] Comment on above: Order Comment: [facility] has implemented the eGFR calculation approach that does not have a coefficient for race that conforms to the NKF-ASN Task Force Recommendations. Result Comment: Slig htly Hemolyzed Performed By: #### 4 [id number] #### [facility] [address] [place] [address] Berhane Mcclure M.D. [id number] Sodium [Moles/Vol] 141 mmol/L Normal 135-145 [facility] Comment on above: Order Comment: [facility] has implemented the eGFR calculation approach that does not have a coefficient for race that conforms to the NKF-ASN Task Force Recommendations. Performed By: #### 4 [id number] #### [facility] [address] [place] [address] Berhane Mcclure M.D. [id number] Urea nitrogen [Mass/Vol] 13 mg/dL Normal 8-25 [facility] Comment on above: Order Comment: [facility] has implemented the eGFR calculation approach that does not have a coefficient for race that conforms to the NKF-ASN Task Force Recommendations. Performed By: #### 4 [id number] #### [facility] [address] [place] [address] Berhane Mcclure M.D. [id number] Urea nitrogen/Creatinine [Mass ratio] 15.9 mg/mg Normal 10.0-20.0 [facility] Comment on above: Order Comment: [facility] has implemented the eGFR calculation approach that does not have a coefficient for race that conforms to the NKF-ASN Task Force Recommendations. Performed By: #### 4 [id number] #### [facility] [address] [place] [address] Berhane Mcclure M.D. [id number] Basic metabolic 2000 panelOr dered By: Zoey Bhagat on 09-09-2024 Anion gap [Moles/Vol] 13 mmol/L 10 - 2 0 mmol/L [facility] Calcium [Mass/Vol] 9.1 mg/dL 8.4 - 10. 2 mg/dL [facility] Chloride [Moles/Vol] 107 mmol/L 98 - 10 8 mmol/L [facility] Creatinine [Mass/Vol] 0.82 mg/dL 0.80 - 1.30 mg/dL [facility] GFR/1.73 sq M.predicted CKD-EPI (S/P/Bld) [Vol rate/Area] 96 - PINF [facility] Comment on above: Estimated GFR was ca lculated using the 2020 CKD-EPI creatinine equation. Glucose [Mass/Vol] 98 mg/dL 65 - 99 mg/dL [facility] HCO3 [Moles/Vol] 25 mmol/L 21 - 32 mmol/L [facility] Interpretation and review of laboratory results Normal [facility] Potassium [Moles/Vol] 4.2 mmol/L 3.5 - 5.1 mmol/L [facility] Comment on above: Slightly Hemolyzed Sodium [Moles/Vol] 141 mmol/L 135 - 145 mmol/L [facility] Urea nitrogen [Mass/Vol] 13 mg/dL 8 - 25 mg/dL [facility] Urea nitrogen/Creatinine [Mass ratio] 15.9 mg/mg 10.0 - 20.0 [facility] has implemented the eGFR calculation approach that does not have a coefficient for race that conforms to the NKF-ASN Task Force Recommendations. [facility] CBCon 09-09-2024 AUTO NRBC 0.0 % Normal [facility] Comment on above: Performed By: #### 4 [id number] #### [facility] [address] [place] [address] Berhane Mcclure M.D. [id number] AUTO NRBC ABS COUNT 0.00 K/mcL Normal 0.00-0.00 [facility] Comment on above: Performed By: #### 4 [id number] #### [facility] [address] [place] [address] Berhane Mcclure M.D. [id number] Erythrocyte distribution width (RBC) [Ratio] 13.8 % Normal 11.6-14.8 [facility] Comment on above: Performed By: #### 4 [id number] #### [facility] [address] [place] [address] Berhane Mcclure M.D. [id number] Hematocrit (Bld) [Volume fraction] 41.8 % Normal 41.0-53.0 [facility] Comment on above: Performed By: #### 4 [id number] #### [facility] [address] [place] [address] Berhane Mcclure M.D. [id number] Hemoglobin (Bld) [Mass/Vol] 13.7 g/dL Normal 13.5-17.5 [facility] Comment on above: Performed By: #### 4 [id number] #### [facility] [address] [place] [address] Berhane Mcclure M.D. [id number] MCH (RBC) [Entitic mass] 30.0 pg Normal 26.0-34.0 [facility] Comment on above: Performed By: #### 4 [id number] #### [facility] [address] [place] [address] Berhane Mcclure M.D. [id number] MCV (RBC) [Entitic vol] 91.7 fL Normal 80.0-100.0 [facility] Comment on above: Performed By: #### 4 [id number] #### [facility] [address] [place] [address] Berhane Mcclure M.D. [id number] MEAN CORPUSCULAR HEMOGLOBIN CONC 32.8 g/dL Normal 31.0-37.0 [facility] Comment on above: Performed By: #### 4 [id number] #### [facility] [address] [place] [address] Berhane Mcclure M.D. [id number] Platelet mean volume (Bld) [Entitic vol] 10.3 fL Normal 9.4-12.4 [facility] Comment on above: Performed By: #### 4 [id number] #### [facility] [address] [place] [address] Berhane Mcclure M.D. [id number] Platelets (Bld) [#/Vol] 237 10*3/uL Normal 150-400 [facility] Comment on above: Performed By: #### 4 [id number] #### [facility] [address] [place], [place] [id number] Berhane Mcclure M.D. [id number] RBC (Bld) [#/Vol] 4.56 10*6/uL Normal 4.50-5.90 [facility] Comment on above: Performed By: #### 4 [id number] #### [facility] [address] [place] [address] Berhane Mcclure M.D. [id number] WBC (Bld) [#/Vol] 9.05 10*3/uL Normal 4.50-11.00 [facility] Comment on above: Performed By: #### 4 [id number] #### [facility] [address] [place] [address] Berhane Mcclure M.D. [id number] CBC panel Auto (Bld)on 09-09 Erythrocyte distribution width (RBC) [Entitic vol] 13.8 % 11.6 - 14.8 % [facility] Hematocrit (Bld) [Volume fraction] 41.8 % 41.0 - 53.0 % [facility] Hemoglobin (Bld) [Mass/Vol] 13.7 g/dL 13.5 - 17.5 g/dL [facility] MCH (RBC) [Entitic mass] 30 pg 26.0 - 34.0 pg [facility] MCHC (RBC) [Mass/Vol] 32.8 g/dL 31.0 - 37.0 g/dL [facility] MCV (RBC) [Entitic vol] 91.7 fL 80.0 - 100.0 fL [facility] Nucleated RBC (Bld) [#/Vol] 0 10*3/uL [facility] Nucleated RBC/100 WBC (Bld) [Ratio] 0 % [facility] Platelet mean volume (Bld) [Entitic vol] 10.3 fL 9.4 - 12.4 fL [facility] Platelets (Bld) [#/Vol] 237 10*3/uL [facility] RBC (Bld) [#/Vol] 4.56 10*6/uL [facility] WBC (Bld) [#/Vol] 9.05 10*3/uL [facility] BASIC METABOLIC PANELon 08-16 Anion gap [Moles/Vol] 16 mmol/L Normal 10-20 [facility] Comment on above: Order Comment: [facility] has implemented the eGFR calculation approach that does not have a coefficient for race that conforms to the NKF-ASN Task Force Recommendations. Performed By: #### 4 [id number] #### [facility] [address] [place] [address] Berhane Mcclure M.D. [id number] Calcium [Mass/Vol] 8.5 mg/dL Normal 8.4-10.2 [facility] Comment on above: Order Comment: [facility] has implemented the eGFR calculation approach that does not have a coefficient for race that conforms to the NKF-ASN Task Force Recommendations. Performed By: #### 4 [id number] #### [facility] [address] [place] [address] Berhane Mcclure M.D. [id number] Chloride [Moles/Vol] 103 mmol/L Normal 98-108 [facility] Comment on above: Order Comment: [facility] has implemented the eGFR calculation approach that does not have a coefficient for race that conforms to the NKF-ASN Task Force Recommendations. Performed By: #### 4 [id number] #### [facility] [address] [place] [address] Berhane Mcclure M.D. [id number] Creatinine [Mass/Vol] 0.78 mg/dL Low 0.80-1.30 [facility] [place] [facility] Comment on above: Order Comment: [facility] has implemented the eGFR calculation approach that does not have a coefficient for race that conforms to the NKF-ASN Task Force Recommendations. Performed By: #### 4 [id number] #### [facility] [address] [place], [place] [id number] Berhane Mclcure M.D. [id number] EGFR 98 mL/min/1.73 m2 Normal >=60 [facility] Comment on above: Order Comment: [facility] has implemented the eGFR calculation approach that does not have a coefficient for race that conforms to the NKF-ASN Task Force Recommendations. Result Comment: Rosanne mated GFR was calculated using the 2020 CKD-EPI creatinine equation. Performed By: #### 4 [id number] #### [facility] [address] [place] [address] Berhane Mcclure M.D. [id number] Glucose [Mass/Vol] 158 mg/dL High 65-99 [facility] Comment on above: Order Comment: [facility] has implemented the eGFR calculation approach that does not have a coefficient for race that conforms to the NKF-ASN Task Force Recommendations. Performed By: #### 4 [id number] #### [facility] [address] [place] [address] Berhane Mcclure M.D. [id number] HCO3 (Bld) [Moles/Vol] 24 mmol/L Normal 21-32 [facility] Comment on above: Order Comment: [facility] has implemented the eGFR calculation approach that does not have a coefficient for race that conforms to the NKF-ASN Task Force Recommendations. Performed By: #### 4 [id number] #### [facility] [address] [place] [address] Berhane Mcclure M.D. [id number] Potassium [Moles/Vol] 4.3 mmol/L Normal 3.5-5.1 [facility] [place] Comment on above: Order Comment: [facility] has implemented the eGFR calculation approach that does not have a coefficient for race that conforms to the NKF-ASN Task Force Recommendations. Result Comment: Slig htly Hemolyzed Performed By: #### 4 [id number] #### [facility] [address] [place] [address] Berhane Mcclure M.D. [id number] Sodium [Moles/Vol] 139 mmol/L Normal 135-145 [facility] Comment on above: Order Comment: [facility] has implemented the eGFR calculation approach that does not have a coefficient for race that conforms to the NKF-ASN Task Force Recommendations. Performed By: #### 4 [id number] #### [facility] [address] [place] [address] Berhane Mcclure M.D. [id number] Urea nitrogen [Mass/Vol] 14 mg/dL Normal 8-25 [facility] Comment on above: Order Comment: [facility] has implemented the eGFR calculation approach that does not have a coefficient for race that conforms to the NKF-ASN Task Force Recommendations. Performed By: #### 4 [id number] #### [facility] [address] [place] [address] Berhane Mcclure M.D. [id number] Urea nitrogen/Creatinine [Mass ratio] 17.9 mg/mg Normal 10.0-20.0 [facility] Comment on above: Order Comment: [facility] has implemented the eGFR calculation approach that does not have a coefficient for race that conforms to the NKF-ASN Task Force Recommendations. Performed By: #### 4 [id number] #### [facility] [address] [place] [address] Berhane Mcclure M.D. [id number] Basic metabolic 2000 panelOr dered By: Shawnee Bennett on 09-08-2024 Anion gap [Moles/Vol] 16 mmol/L 10 - 2 0 mmol/L [facility] Calcium [Mass/Vol] 8.5 mg/dL 8.4 - 10. 2 mg/dL [facility] Chloride [Moles/Vol] 103 mmol/L 98 - 10 8 mmol/L [facility] Creatinine [Mass/Vol] 0.78 mg/dL Low 0.80 - 1.30 mg/dL [facility] GFR/1.73 sq M.predicted CKD-EPI (S/P/Bld) [Vol rate/Area] 98 - PINF [facility] Comment on above: Estimated GFR was ca lculated using the 2020 CKD-EPI creatinine equation. Glucose [Mass/Vol] 158 mg/dL High 65 - 99 mg/dL [facility] HCO3 [Moles/Vol] 24 mmol/L 21 - 32 mmol/L [facility] Interpretation and review of laboratory results Abnormal [facility] Potassium [Moles/Vol] 4.3 mmol/L 3.5 - 5.1 mmol/L [facility] Comment on above: Slightly Hemolyzed Sodium [Moles/Vol] 139 mmol/L 135 - 145 mmol/L [facility] Urea nitrogen [Mass/Vol] 14 mg/dL 8 - 25 mg/dL [facility] Urea nitrogen/Creatinine [Mass ratio] 17.9 mg/mg 10.0 - 20.0 [facility] has implemented the eGFR calculation approach that does not have a coefficient for race that conforms to the NKF-ASN Task Force Recommendations. [facility] CBCon 09-08-2024 AUTO NRBC 0.0 % Normal [facility] Comment on above: Performed By: #### 4 [id number] #### [facility] [address] [place] [address] Berhane Mcclure M.D. [id number] AUTO NRBC ABS COUNT 0.00 K/mcL Normal 0.00-0.00 [facility] Comment on above: Performed By: #### 4 [id number] #### [facility] [address] [place], [place] [id number] Berhane Mcclure M.D. [id number] Erythrocyte distribution width (RBC) [Ratio] 13.9 % Normal 11.6-14.8 [facility] Comment on above: Performed By: #### 4 [id number] #### [facility] [address] [place] [address] Berhane Mcclure M.D. [id number] Hematocrit (Bld) [Volume fraction] 41.2 % Normal 41.0-53.0 [facility] Comment on above: Performed By: #### 4 [id number] #### [facility] [address] [place] [address] Berhane Mcclure M.D. [id number] Hemoglobin (Bld) [Mass/Vol] 13.5 g/dL Normal 13.5-17.5 [facility] Comment on above: Performed By: #### 4 [id number] #### [facility] [address] [place], [place] [id number] Berhane Mcclure M.D. [id number] MCH (RBC) [Entitic mass] 30.1 pg Normal 26.0-34.0 [facility] Comment on above: Performed By: #### 4 [id number] #### [facility] [address] [place], [place] [address] Berhane Mcclure M.D. [id number] MCV (RBC) [Entitic vol] 91.8 fL Normal 80.0-100.0 [facility] Comment on above: Performed By: #### 4 1018 #### [facility] [address] [place], [place] [address] Berhane Mcclure M.D. [id number] MEAN CORPUSCULAR HEMOGLOBIN CONC 32.8 g/dL Normal 31.0-37.0 [facility] Comment on above: Performed By: #### 4 [id number] #### [facility] [address] [place] [address] Berhane Mcclure M.D. [id number] Platelet mean volume (Bld) [Entitic vol] 10.7 fL Normal 9.4-12.4 [facility] Comment on above: Performed By: #### 4 [id number] #### [facility] [address] [place] [address] Berhane Mcclure M.D. [id number] Platelets (Bld) [#/Vol] 218 10*3/uL Normal 150-400 [facility] Comment on above: Performed By: #### 4 [id number] #### [facility] [address] [place] [address] Berhane Mcclure M.D. [id number] RBC (Bld) [#/Vol] 4.49 10*6/uL Low 4.50-5.90 [facility] Comment on above: Performed By: #### 4 [id number] #### [facility] [address] [place] [address] Berhane Mcclure M.D. [id number] WBC (Bld) [#/Vol] 12.02 10*3/uL High 4.50-11.00 [facility] Comment on above: Performed By: #### 4 [id number] #### [facility] [address] [place] [address] Berhane Mcclure M.D. [id number] CBC panel Auto (Bld)on 09-08 Erythrocyte distribution width (RBC) [Entitic vol] 13.9 % 11.6 - 14.8 % [facility] Hematocrit (Bld) [Volume fraction] 41.2 % 41.0 - 53.0 % [facility] Hemoglobin (Bld) [Mass/Vol] 13.5 g/dL 13.5 - 17.5 g/dL [facility] Interpretation and review of laboratory results Abnormal [facility] MCH (RBC) [Entitic mass] 30.1 pg 26.0 - 34.0 pg [facility] MCHC (RBC) [Mass/Vol] 32.8 g/dL 31.0 - 37.0 g/dL [facility] MCV (RBC) [Entitic vol] 91.8 fL 80.0 - 100.0 fL [facility] Nucleated RBC (Bld) [#/Vol] 0 10*3/uL [facility] Nucleated RBC/100 WBC (Bld) [Ratio] 0 % [facility] Platelet mean volume (Bld) [Entitic vol] 10.7 fL 9.4 - 12.4 fL [facility] Platelets (Bld) [#/Vol] 218 10*3/uL [facility] RBC (Bld) [#/Vol] 4.49 10*6/uL Low [facility] WBC (Bld) [#/Vol] 12.02 10*3/uL High [facility] VANCOMYCIN LEVEL, RANDOMon 0 09-08-2024 VANCOMYCIN RANDOM 4.0 mcg/mL Normal [facility] Comment on above: Order Comment: [facility] has implemented the eGFR calculation approach that does not have a coefficient for race that conforms to the NKF-ASN Task Force Recommendations. Performed By: #### 4 [id number] #### [facility] [address] [place] [address] Berhane Mcclure M.D. [id number] Vancomycin Level, Randomon 0 09-08-2024 Vancomycin [Mass/Vol] 4 mcg/mL [facility] Vancomycin [Mass/Vol]on 08-16 As of 02/2022 vancomycin dosing for [facility] inpatients will be done by Bayesian dosing software rather than off traditional trough values. Please contact the site specific inpatient pharmacy before making dose changes off of trough values alone for admitted patients. No established reference range. [facility] BASIC METABOLIC PANELon 08-16 Anion gap [Moles/Vol] 10 mmol/L Normal 10-20 [facility] Comment on above: Order Comment: [facility] has implemented the eGFR calculation approach that does not have a coefficient for race that conforms to the NKF-ASN Task Force Recommendations. Performed By: #### 4 [id number] #### [facility] [address] [place] [address] Berhane Mcclure M.D. [id number] Calcium [Mass/Vol] 8.6 mg/dL Normal 8.4-10.2 [facility] Comment on above: Order Comment: [facility] has implemented the eGFR calculation approach that does not have a coefficient for race that conforms to the NKF-ASN Task Force Recommendations. Performed By: #### 4 [id number] #### [facility] [address] [place] [address] Berhane Mcclure M.D. [id number] Chloride [Moles/Vol] 104 mmol/L Normal 98-108 [facility] Comment on above: Order Comment: [facility] has implemented the eGFR calculation approach that does not have a coefficient for race that conforms to the NKF-ASN Task Force Recommendations. Performed By: #### 4 [id number] #### [facility] [address] [place], [place] [id number] Berhane Mcclure M.D. [id number] Creatinine [Mass/Vol] 0.84 mg/dL Normal 0.80-1.30 [facility] Comment on above: Order Comment: [facility] has implemented the eGFR calculation approach that does not have a coefficient for race that conforms to the NKF-ASN Task Force Recommendations. Performed By: #### 4 [id number] #### [facility] [address] [place] [address] Berhane Mcclure M.D. [id number] EGFR 96 mL/min/1.73 m2 Normal >=60 [facility] Comment on above: Order Comment: [facility] has implemented the eGFR calculation approach that does not have a coefficient for race that conforms to the NKF-ASN Task Force Recommendations. Result Comment: Rosanne mated GFR was calculated using the 2020 CKD-EPI creatinine equation. Performed By: #### 4 [id number] #### [facility] [address] [place] [address] Berhane Mcclure M.D. [id number] Glucose [Mass/Vol] 122 mg/dL High 65-99 [facility] Comment on above: Order Comment: [facility] has implemented the eGFR calculation approach that does not have a coefficient for race that conforms to the NKF-ASN Task Force Recommendations. Performed By: #### 4 [id number] #### [facility] [address] [place] [address] Berhane Mcclure M.D. [id number] HCO3 (Bld) [Moles/Vol] 27 mmol/L Normal 21-32 [facility] Comment on above: Order Comment: [facility] has implemented the eGFR calculation approach that does not have a coefficient for race that conforms to the NKF-ASN Task Force Recommendations. Performed By: #### 4 [id number] #### [facility] [address] [place] [address] Berhane Mcclure M.D. [id number] Potassium [Moles/Vol] 3.7 mmol/L Normal 3.5-5.1 [facility] Comment on above: Order Comment: [facility] has implemented the eGFR calculation approach that does not have a coefficient for race that conforms to the NKF-ASN Task Force Recommendations. Performed By: #### 4 [id number] #### [facility] [address] [place] [address] Berhane Mcclure M.D. [id number] Sodium [Moles/Vol] 137 mmol/L Normal 135-145 [facility] Comment on above: Order Comment: [facility] has implemented the eGFR calculation approach that does not have a coefficient for race that conforms to the NKF-ASN Task Force Recommendations. Performed By: #### 4 [id number] #### [facility] [address] [place] [address] Berhane Mcclure M.D. [id number] Urea nitrogen [Mass/Vol] 10 mg/dL Normal 8-25 [facility] Comment on above: Order Comment: [facility] has implemented the eGFR calculation approach that does not have a coefficient for race that conforms to the NKF-ASN Task Force Recommendations. Performed By: #### 4 [id number] #### [facility] [address] [place] [address] Berhane Mcclure M.D. [id number] Urea nitrogen/Creatinine [Mass ratio] 11.9 mg/mg Normal 10.0-20.0 [facility] Comment on above: Order Comment: [facility] has implemented the eGFR calculation approach that does not have a coefficient for race that conforms to the NKF-ASN Task Force Recommendations. Performed By: #### 4 [id number] #### [facility] [address] [place] [address] Berhane Mcclure M.D. [id number] Basic metabolic 2000 panelon 09-07-2024 Anion gap [Moles/Vol] 10 mmol/L 10 - 2 0 mmol/L [facility] Calcium [Mass/Vol] 8.6 mg/dL 8.4 - 10. 2 mg/dL [facility] Chloride [Moles/Vol] 104 mmol/L 98 - 10 8 mmol/L [facility] Creatinine [Mass/Vol] 0.84 mg/dL 0.80 - 1.30 mg/dL [facility] GFR/1.73 sq M.predicted CKD-EPI (S/P/Bld) [Vol rate/Area] 96 - PINF [facility] Comment on above: Estimated GFR was ca lculated using the 2020 CKD-EPI creatinine equation. Glucose [Mass/Vol] 122 mg/dL High 65 - 99 mg/dL [facility] HCO3 [Moles/Vol] 27 mmol/L 21 - 32 mmol/L [facility] Potassium [Moles/Vol] 3.7 mmol/L 3.5 - 5.1 mmol/L [facility] Sodium [Moles/Vol] 137 mmol/L 135 - 145 mmol/L [facility] Urea nitrogen [Mass/Vol] 10 mg/dL 8 - 25 mg/dL [facility] Urea nitrogen/Creatinine [Mass ratio] 11.9 mg/mg 10.0 - 20.0 [facility] y Services has implemented the eGFR calculation approach that does not have a coefficient for race that conforms to the NKF-ASN Task Force Recommendations. [facility] CBCon 09-07-2024 AUTO NRBC 0.0 % Normal [facility] Comment on above: Performed By: #### 4 [id number] #### [facility] [address] [place] [address] Berhane Mcclure M.D. [id number] AUTO NRBC ABS COUNT 0.00 K/mcL Normal 0.00-0.00 [facility] Comment on above: Performed By: #### 4 [id number] #### [facility] [address] [place] [address] Berhane Mcclure M.D. [id number] Erythrocyte distribution width (RBC) [Ratio] 14.5 % Normal 11.6-14.8 [facility] Comment on above: Performed By: #### 4 [id number] #### [facility] [address] [place] [address] Berhane Mcclure M.D. [id number] Hematocrit (Bld) [Volume fraction] 39.1 % Low 41.0-53.0 [facility] Comment on above: Performed By: #### 4 [id number] #### [facility] [address] [place] [address] Berhane Mcclure M.D. [id number] Hemoglobin (Bld) [Mass/Vol] 13.1 g/dL Low 13.5-17.5 [facility] Comment on above: Performed By: #### 4 [id number] #### [facility] [address] [place] [address] Berhane Mcclure M.D. [id number] MCH (RBC) [Entitic mass] 31.0 pg Normal 26.0-34.0 [facility] Comment on above: Performed By: #### 4 [id number] #### [facility] [address] [place] [address] Berhane Mcclure M.D. [id number] MCV (RBC) [Entitic vol] 92.7 fL Normal 80.0-100.0 [facility] Comment on above: Performed By: #### 4 [id number] #### [facility] [address] [place], [place] [id number] Berhane Mcclure M.D. [id number] MEAN CORPUSCULAR HEMOGLOBIN CONC 33.5 g/dL Normal 31.0-37.0 [facility] Comment on above: Performed By: #### 4 [id number] #### [facility] [address] [place], [place] [address] Berhane Mcclure M.D. [id number] Platelet mean volume (Bld) [Entitic vol] 10.4 fL Normal 9.4-12.4 [facility] Comment on above: Performed By: #### 4 [id number] #### [facility] [address] [place], [place] [id number] Berhane Mcclure M.D. [id number] Platelets (Bld) [#/Vol] 203 10*3/uL Normal 150-400 [facility] Comment on above: Performed By: #### 4 [id number] #### [facility] [address] [place], [place] [id number] Berhane Mcclure M.D. [id number] RBC (Bld) [#/Vol] 4.22 10*6/uL Low 4.50-5.90 [facility] Comment on above: Performed By: #### 4 [id number] #### [facility] [address] [place], [place] [id number] Berhane Mcclure M.D. [id number] WBC (Bld) [#/Vol] 13.07 10*3/uL High 4.50-11.00 [facility] Comment on above: Performed By: #### 4 [id number] #### [facility] [address] [place], [place] [id number] Berhane Mcclure M.D. [id number] CBC panel Auto (Bld)on 09-07 Erythrocyte distribution width (RBC) [Entitic vol] 14.5 % 11.6 - 14.8 % [facility] Hematocrit (Bld) [Volume fraction] 39.1 % Low 41.0 - 53.0 % [facility] Hemoglobin (Bld) [Mass/Vol] 13.1 g/dL Low 13.5 - 17.5 g/dL [facility] Interpretation and review of laboratory results Abnormal [facility] MCH (RBC) [Entitic mass] 31 pg 26.0 - 34.0 pg [facility] MCHC (RBC) [Mass/Vol] 33.5 g/dL 31.0 - 37.0 g/dL [facility] MCV (RBC) [Entitic vol] 92.7 fL 80.0 - 100.0 fL [facility] Nucleated RBC (Bld) [#/Vol] 0 10*3/uL [facility] Nucleated RBC/100 WBC (Bld) [Ratio] 0 % [facility] Platelet mean volume (Bld) [Entitic vol] 10.4 fL 9.4 - 12.4 fL [facility] Platelets (Bld) [#/Vol] 203 10*3/uL [facility] RBC (Bld) [#/Vol] 4.22 10*6/uL Low [facility] WBC (Bld) [#/Vol] 13.07 10*3/uL High [facility] HEMOGLOBIN A1Con 09-07-2024 Glucose [Mass/Vol] 114 mg/dL Normal 74-114 [facility] Comment on above: Order Comment: [facility] has implemented the eGFR calculation approach that does not have a coefficient for race that conforms to the NKF-ASN Task Force Recommendations. Performed By: #### 4 [id number] #### [facility] [place] [address] Berhane Mcclure M.D. [id number] HbA1c (Bld) [Mass fraction] 5.6 % Normal 4.2-5.6 [facility] Comment on above: Order Comment: [facility] has implemented the eGFR calculation approach that does not have a coefficient for race that conforms to the NKF-ASN Task Force Recommendations. Performed By: #### 4 [id number] #### [facility] [address] [place] [address] Berhane Mcclure M.D. [id number] HbA1c (Bld) [Mass fraction]o n 09-07-2024 Average glucose Estimated from glycated hemoglobin (Bld) [Mass/Vol] 114 mg/dL 74 - 114 mg/dL [facility] Interpretation and review of laboratory results Normal [facility] Normal: 4.2% - 5.6% Increased risk for diabetes: 5.7% - 6.4% Diabetes: >= 6.5% Pediatrics: No established reference range Estimated average glucose: 74-114 mg/dL [facility] Hemoglobin A1con 09-07-2024 HbA1c (Bld) [Mass fraction] 5.6 % 4.2 - 5.6 % [facility] LIPID PANELon 09-07-2024 Cholesterol [Mass/Vol] 90 mg/dL Low 100-199 Ri [facility] Comment on above: Result Comment: [employer] Cholesterol Education Program Guidelines: Cholesterol Desirable: <200 mg/dL Borderline High: 200-239 mg/dL High: greater than or equal to 240 mg/dL Performed By: #### 4 [id number] #### [facility] [address] [place], [place] [id number] Berhane Mcclure M.D. [id number] Cholesterol in HDL [Mass/Vol] 40 mg/dL Normal 40-59 [facility] Comment on above: Performed By: #### 4 6124 #### [facility] [address] [place] [address] Berhane Mcclure M.D. [id number] Cholesterol.total/Chol esterol in HDL [Mass ratio] 2.3 {ratio} Normal [facility] Comment on above: Result Comment: Male s Cholesterol/HDL Ratio: Average risk: 5.0 1/2 average risk: 3.4 2 x average risk: 9.6 Performed By: #### 4 6100 #### [facility] [address] [place] [address] Berhane Mcclure M.D. [id number] LDL CHOLESTEROL CALCULATED 37 mg/dL Normal 10-130 [facility] Comment on above: Result Comment: [facility] Cholesterol Education Program Guidelines: LDL Cholesterol Optimal: <100 mg/dL Near Optimal/above Optimal: 100-129 mg/dL Borderline High: 130-159 mg/dL High: 160-189 mg/dL Very High: greater than or equal to 190 mg/dL Performed By: #### 4 6124 #### [facility] [place] [id number] Berhane Mcclure M.D. [id number] NON HDL CHOL 50 mg/dL Normal [facility] Comment on above: Result Comment: [facility] Cholesterol Education Program Guidelines: NON HDL Cholesterol Desirable: <130 mg/dL Borderline High: 130-159 mg/dL High: 160-189 mg/dL Very High: > or = 190 mg/dL Performed By: #### 4 6124 #### [facility] [place] [address] Berhane Mcclure M.D. [id number] Triglyceride [Mass/Vol] 64 mg/dL Normal 30-150 [facility] Comment on above: Result Comment: [facility] Cholesterol Education Program Guidelines: Triglyceride Normal: <150 mg/dL Borderline High: 150-199 mg/dL High: 200-499 mg/dL Very High: greater than or equal to 500 mg/dL Performed By: #### 4 6124 #### [facility] [address] [place], [place] [id number] Berhane Mcclure M.D. [id number] Lipid 1996 panelon 5 Cholesterol [Mass/Vol] 90 mg/dL Low 100 - 199 mg/dL [facility] Comment on above: National Cholesterol Education Program Guidelines: Cholesterol Desirable: <200 mg/dL Borderline High: 200-239 mg/dL High: greater than or equal to 240 mg/dL Cholesterol in HDL [Mass/Vol] 40 mg/dL 40 - 59 mg/dL [facility] Cholesterol in LDL [Mass/Vol] 37 mg/dL 10 - 130 mg/dL [facility] Comment on above: National Cholesterol Education Program Guidelines: LDL Cholesterol Optimal: <100 mg/dL Near Optimal/above Optimal: 100-129 mg/dL Borderline High: 130-159 mg/dL High: 160-189 mg/dL Very High: greater than or equal to 190 mg/dL Cholesterol non HDL [Mass/Vol] 50 mg/dL [facility] Comment on above: National Cholesterol Education Program Guidelines: NON HDL Cholesterol Desirable: <130 mg/dL Borderline High: 130-159 mg/dL High: 160-189 mg/dL Very High: > or = 190 mg/dL Cholesterol.total/Chol esterol in HDL [Mass ratio] 2.3 {ratio} ratio [facility] Comment on above: Males Cholesterol/HD L Ratio: Average risk: 5.0 1/2 average risk: 3.4 2 x average risk: 9.6 Triglyceride [Mass/Vol] 64 mg/dL 30 - 150 mg/dL [facility] Comment on above: National Cholesterol Education Program [...] of the hand. PD/cdr Workstation ID: [id number] the grafter [facility] EXAMINATION: MR HAND RIGHT WITH AND WITHOUT [...] hand. 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 Kyle Rocha MD - 09/07/2024 EXAMINATION: MR [...] of the hand. PD/cdr Workstation ID: [id number] [facility] Radiology Study observation (narrative) [facility] MR Hand - right WO and W con trast IVOrdered By: Kyle Nunez on 09-07-2024 [facility] Work Phone: No Panel Informationon 09-07 Interpretation and review of laboratory results Abnormal [facility] OP NOTEon 09-07-2024 OP NOTE OPERATIVE REPORT Maryse Mak Preoperative Diagnosis: Right thumb flexor tenosynovitis Postoperative Diagnosis: Right thumb flexor tenosynovitis Procedure: Incision and drainage of right thumb flexor tenosynovitis - [id number] Surgeon:Aristeo Beavers MD Guest Relations Agent: Surgeons and Role: * Aristeo Beavers MD - Primary Anesthesiologist: No responsible provider has been recorded for the case. OR Staff: Hose Stripper: Mary Lou Strong RN Scrub Person: Ludin [...] BY ARISTEO BEAVERS, ON 09/07/2024 14:29:50 Normal [facility] SURGICAL SITE AEROBIC AND AN AEROBIC CULTUREon 09-07-2024 SURGICAL SITE AEROBIC AND ANAEROBIC CULTURE CULTURE No Anaerobic Growth after 5 days STREPTOCOCCUS PYOGENES Rare growth Streptococcus pyogenes (Group A) GRAM STAIN RESULT Many RBC Many WBC No Organisms Seen Abnormal [facility] Comment on above: Performed By: #### 4 [id number] #### [facility] [address] [place] [address] Berhane Mcclure M.D. [id number] XR MR [place] 09-07-2024 No metallic foreign body is identified in either orbit. Workstation ID: [id number] [employer] EXAMINATION: XR FOR MRI CLEARANCE HISTORY: MRI CLEARANCE METAL IN EYES OVER 40 YRS AGO COMPARISON: None. TECHNIQUE: 1 orbit view is submitted FINDINGS: No metallic foreign body is identified in either orbit. Orbital bony structures are grossly unremarkable. the grafter [facility] Laurence Cano, - 09/07/2024 EXAMINATION: XR FOR MRI CLEARANCE HISTORY: MRI CLEARANCE METAL IN EYES OVER 40 YRS AGO COMPARISON: None. TECHNIQUE: 1 orbit view is submitted FINDINGS: No metallic foreign body is identified in either orbit. Orbital bony structures are grossly unremarkable. IMPRESSION: No metallic foreign body is identified in either orbit. Workstation ID: [id number] [facility] XR MR ClearOrdered By: Laurence Cano on 09-07-2024 [facility] Work Phone: ALCOHOL, MEDICALon 5 ALCOHOL MEDICAL < Normal <10.0 [facility] Comment on above: Result Comment: Alco hol cutoff: <10.00 mg/dL = None Detected Performed By: #### 4 [id number] #### LAB [address] [place] [address] Cameron Vanegas M.D. [id number] APTTon 09-06-2024 aPTT Coag (Bld) [Time] 33 s Normal 23-34 [facility] Comment on above: Order Comment: Thera peutic range for APTT's is 68 - 104 seconds Performed By: #### 4 5113 #### [facility] [address] [place] [address] Cameron Vanegas M.D. [id number] BLOOD CULTURE AEROBIC/ANAERO BICon 09-06-2024 BLOOD CULTURE AEROBIC/ANAEROBIC BLOOD CULTURE No Growth after 5 days [facility] Comment on above: Performed By: #### 4 5033 #### LAB [address] [place] [address] Cameron Vanegas M.D. [id number] CBC WITH AUTO DIFFERENTIALon 09-06-2024 AUTO NRBC 0.0 % [facility] Comment on above: Performed By: #### 4 5033 #### LAB [address] [place] [address] Cameron Vanegas M.D. [id number] AUTO NRBC ABS COUNT 0.00 K/mcL Normal 0.00-0.00 [facility] Comment on above: Performed By: #### 4 5033 #### LAB [address] [place] [address] Cameron Vanegas M.D. [id number] BASOPHILS ABSOLUTE COUNT 0.06 K/mcL Normal 0.00-0.30 [facility] Comment on above: Performed By: #### 4 5033 #### LAB [address] [place] [address] Cameron Vanegas M.D. [id number] Basophils/100 WBC (Bld) 0.3 % [facility] Comment on above: Performed By: #### 4 5033 #### LAB [address] [place] [address] Cameron Vanegas M.D. [id number] Eosinophils (Bld) [#/Vol] 0.03 10*3/uL Normal 0.00-0.50 [facility] Comment on above: Performed By: #### 4 5033 #### LAB [address] [place] [address] Cameron Vanegas M.D. [id number] Eosinophils/100 WBC (Bld) 0.2 % Normal [facility] Comment on above: Performed By: #### 4 5033 #### LAB [address] [place] [address] Cameron Vanegas M.D. [id number] Erythrocyte distribution width (RBC) [Ratio] 14.6 % Normal 11.6-14.8 [facility] Comment on above: Performed By: #### 4 5033 #### LAB [address] [place] [address] Cameron Vanegas M.D. [id number] Hematocrit (Bld) [Volume fraction] 46.6 % Normal 41.0-53.0 [facility] Comment on above: Performed By: #### 4 5033 #### LAB [address] [place] [address] Cameron Vanegas M.D. [id number] Hemoglobin (Bld) [Mass/Vol] 15.5 g/dL Normal 13.5-17.5 [facility] Comment on above: Performed By: #### 4 5033 #### LAB [address] [place] [address] Cameron Vanegas M.D. [id number] IG ABSOLUTE 0.13 K/mcL Normal 0.00-0.30 [facility] Comment on above: Performed By: #### 4 5033 #### LAB [address] [place] [address] Cameron Vanegas M.D. [id number] IG PERCENT 0.70 % Normal [facility] Comment on above: Result Comment: The IG parameter is the percentage of metamyelocytes, myelocytes and promyelocytes. An immature granulocyte count (IG) of 1% or more suggests the possibility of infection, an IG count of 3% is very likely related to an infection. Performed By: #### 4 5033 #### LAB [address] [place] [address] Cameron Vanegas M.D. [id number] Lymphocytes (Bld) [#/Vol] 1.30 10*3/uL Normal 0.90-4.00 [facility] Comment on above: Performed By: #### 4 5033 #### LAB [address] [place] [address] Cameron Vanegas M.D. [id number] Lymphocytes/100 WBC (Bld) 6.7 % Normal [facility] Comment on above: Performed By: #### 4 5033 #### LAB [address] [place] [address] Cameron Vanegas M.D. [id number] MCH (RBC) [Entitic mass] 30.8 pg Normal 26.0-34.0 [facility] Comment on above: Performed By: #### 4 5033 #### LAB [address] [place] [address] Cameron Vanegas M.D. [id number] MCV (RBC) [Entitic vol] 92.6 fL Normal 80.0-100.0 [facility] Comment on above: Performed By: #### 4 5033 #### LAB [address] [address] Cameron Vanegas M.D. [id number] MEAN CORPUSCULAR HEMOGLOBIN CONC 33.3 g/dL Normal 31.0-37.0 [facility] Comment on above: Performed By: #### 4 5033 #### LAB [address] [address] Cameron Vanegas M.D. [id number] Monocytes (Bld) [#/Vol] 1.12 10*3/uL High 0.30-0.90 [facility] Comment on above: Performed By: #### 4 5033 #### LAB [address] [place] [address] Cameron Vanegas M.D. [id number] Monocytes/100 WBC (Bld) 5.8 % Normal [facility] Comment on above: Performed By: #### 4 5033 #### LAB [address] [place] [address] Cameron Vanegas M.D. [id number] NEUTROPHILS ABSOLUTE COUNT 16.65 K/mcL High 1.70-7.00 [facility] Comment on above: Performed By: #### 4 5033 #### LAB [address] [place] [address] Cameron Vanegas M.D. [id number] Neutrophils/100 WBC (Bld) 86.3 % Normal [facility] Comment on above: Performed By: #### 4 5033 #### LAB [address] [place] [address] Cameron Vanegas M.D. [id number] Platelet mean volume (Bld) [Entitic vol] 9.8 fL Normal 9.4-12.4 [facility] Comment on above: Performed By: #### 4 5033 #### LAB [address] [place] [address] Cmaeron Vanegas M.D. [id number] Platelets (Bld) [#/Vol] 233 10*3/uL Normal 150-400 [facility] Comment on above: Performed By: #### 4 5033 #### LAB [address] [place] [address] Cameron Vanegas M.D. [id number] RBC (Bld) [#/Vol] 5.03 10*6/uL Normal 4.50-5.90 [facility] Comment on above: Performed By: #### 4 5033 #### LAB [address] [address] Cameron Vanegas M.D. [id number] WBC (Bld) [#/Vol] 19.29 10*3/uL High 4.50-11.[address] [facility] Comment on above: Performed By: #### 4 5033 #### LAB [address] [address] Cameron Vanegas M.D. [id number] COMPREHENSIVE METABOLIC PANE Rashel 09-06-2024 Albumin [Mass/Vol] 4.3 g/dL Normal 3.2-5.2 [facility] Comment on above: Order Comment: [facility] has implemented the eGFR calculation approach that does not have a coefficient for race that conforms to the NKF-ASN Task Force Recommendations. Performed By: #### 4 5033 #### LAB [address] [address] Cameron Vanegas M.D. [id number] ALP [Catalytic activity/Vol] 97 U/L Normal 40-150 [facility] Comment on above: Order Comment: [facility] has implemented the eGFR calculation approach that does not have a coefficient for race that conforms to the NKF-ASN Task Force Recommendations. Performed By: #### 4 5033 #### LAB [address] [address] Cameron Vanegas M.D. [id number] ALT [Catalytic activity/Vol] 14 U/L Normal 0-50 U/L [facility] Comment on above: Order Comment: [facility] has implemented the eGFR calculation approach that does not have a coefficient for race that conforms to the NKF-ASN Task Force Recommendations. Performed By: #### 4 5033 #### LAB [address] [address] Cameron Vanegas M.D. [id number] Anion gap [Moles/Vol] 16 mmol/L Normal 10-20 [facility] Comment on above: Order Comment: [facility] has implemented the eGFR calculation approach that does not have a coefficient for race that conforms to the NKF-ASN Task Force Recommendations. Performed By: #### 4 5033 #### LAB [address] [place], [place] [address] Cameron Vanegas M.D. [id number] AST [Catalytic activity/Vol] 16 U/L Normal 0-50 U/L [facility] Comment on above: Order Comment: [facility] has implemented the eGFR calculation approach that does not have a coefficient for race that conforms to the NKF-ASN Task Force Recommendations. Performed By: #### 4 5033 #### LAB [address] [place], [place] [address] Cameron Vanegas M.D. [id number] Bilirubin [Mass/Vol] 1.2 mg/dL Normal 0.0-1.[address] [facility] Comment on above: Order Comment: [facility] has implemented the eGFR calculation approach that does not have a coefficient for race that conforms to the NKF-ASN Task Force Recommendations. Performed By: #### 4 5033 #### LAB [address] [place] [address] Cameron Vanegas M.D. [id number] Calcium [Mass/Vol] 9.5 mg/dL Normal 8.4-10.2 [facility] Comment on above: Order Comment: [facility] has implemented the eGFR calculation approach that does not have a coefficient for race that conforms to the NKF-ASN Task Force Recommendations. Performed By: #### 4 5033 #### LAB [address] [place] [address] Cameron Vanegas M.D. [id number] Chloride [Moles/Vol] 99 mmol/L Normal 98-[address] [facility] Comment on above: Order Comment: [facility] has implemented the eGFR calculation approach that does not have a coefficient for race that conforms to the NKF-ASN Task Force Recommendations. Performed By: #### 4 5033 #### LAB [address] [place], [place] [address] Cameron Vanegas M.D. [id number] Creatinine [Mass/Vol] 1.14 mg/dL Normal 0.80-1.30 [facility] Comment on above: Order Comment: [facility] has implemented the eGFR calculation approach that does not have a coefficient for race that conforms to the NKF-ASN Task Force Recommendations. Performed By: #### 4 5033 #### LAB [address] [place] [id number] Cameron Vanegas M.D. [id number] EGFR 70 mL/min/1.73 m2 Normal >=60 [facility] Comment on above: Order Comment: [facility] has implemented the eGFR calculation approach that does not have a coefficient for race that conforms to the NKF-ASN Task Force Recommendations. Result Comment: Rosanne mated GFR was calculated using the 2020 CKD-EPI creatinine equation. Performed By: #### 4 5033 #### LAB [address] [place], [place] [address] Cameron Vanegas M.D. [id number] Glucose [Mass/Vol] 84 mg/dL Normal 65-99 [facility] Comment on above: Order Comment: [facility] has implemented the eGFR calculation approach that does not have a coefficient for race that conforms to the NKF-ASN Task Force Recommendations. Performed By: #### 4 5033 #### LAB [address] [address] Cameron Vanegas M.D. [id number] HCO3 (Bld) [Moles/Vol] 25 mmol/L Normal 21-32 [facility] Comment on above: Order Comment: [facility] has implemented the eGFR calculation approach that does not have a coefficient for race that conforms to the NKF-ASN Task Force Recommendations. Performed By: #### 4 5033 #### LAB [address] [place] [address] aCmeron Vanegas M.D. [id number] Potassium [Moles/Vol] 4.0 mmol/L Normal 3.5-5.1 [facility] Comment on above: Order Comment: [facility] has implemented the eGFR calculation approach that does not have a coefficient for race that conforms to the NKF-ASN Task Force Recommendations. Performed By: #### 4 5033 #### LAB [address] [place], [place] [address] Cameron Vanegas M.D. [id number] Protein [Mass/Vol] 7.8 g/dL Normal 6.0-8.0 [facility] Comment on above: Order Comment: [facility] has implemented the eGFR calculation approach that does not have a coefficient for race that conforms to the NKF-ASN Task Force Recommendations. Performed By: #### 4 5033 #### [facility] [address] [place], [place] [address] Cameron Vanegas M.D. [id number] Sodium [Moles/Vol] 136 mmol/L Normal 135-145 [facility] Comment on above: Order Comment: [facility] has implemented the eGFR calculation approach that does not have a coefficient for race that conforms to the NKF-ASN Task Force Recommendations. Performed By: #### 4 5033 #### LAB [address] [place], [place] [address] Cameron Vanegas M.D. [id number] Urea nitrogen [Mass/Vol] 13 mg/dL Normal 8-25 [facility] Comment on above: Order Comment: [facility] has implemented the eGFR calculation approach that does not have a coefficient for race that conforms to the NKF-ASN Task Force Recommendations. Performed By: #### 4 5033 #### LAB [address] [place], [place] [address] Cameron Vanegas M.D. [id number] Urea nitrogen/Creatinine [Mass ratio] 11.4 mg/mg Normal 10.0-20.0 [facility] Comment on above: Order Comment: [facility] has implemented the eGFR calculation approach that does not have a coefficient for race that conforms to the NKF-ASN Task Force Recommendations. Performed By: #### 4 5033 #### LAB [address] [place], [place] [address] Cameron Vanegas M.D. [id number] CONSULTon 09-06-2024 CONSULT CONSULT NOTE Patient Name: Maryse Mak Admit Date: [id number] MR #: [id number] : 1955 Physicians: Rayo Jaimes MD (Family); [...] admission for IV abx, abx continued from [place] - Begin BID warm soapy soaks with packing changes - Multimodal pain control - Hand surgery well reassess in the AM - If no significant improvement seen patient may require formal I&D - NPO at midnight as precaution - Please contact hand surgery [facility] production officer with questions/concerns Chief Complaint/Reason for Visit: Right hand pain, concern for FTS History of Present Illness: Maryse Mak is a 69 y.o. 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 Normal [facility] CRP, INFLAMMATIONon 09-07-19 25 CRP [Mass/Vol] 194.0 mg/L High 0.0-10.0 [facility] Comment on above: Performed By: #### 4 5334 #### [facility] [address] [address] Cameron Vanegas M.D. [id number] CT ANGIOGRAM HEAD NECKon CT ANGIOGRAM HEAD [...] acute infarct, arterial thrombosis or hemorrhage demonstrated. [id number] frontoparietal predominant burden of patchy subcortical white [...] above Workstation ID: [id number] Dictated by: GENEVIEVE GOEL on WedSep 06, 2024 3:17:59 PM EDT Transcribed by: GENEVIEVE GOEL on WedSep 06, 2024 3:17:59 PM EDT Finalized by: GENEVIEVE GOEL on WedSep 06, 2024 3:17:59 PM EDT Normal [facility] Comment on above: Order Comment: Injur y/Trauma or Illness?:Illness/OtherHow long have you had these symptoms (acute/chronic)?:AcuteReason for exam?:headache started this morning. wobbliness x2 days per patient. cellulitis on upper extremityType of Exam?:InitialAdditional signs and symptoms?:n/a DRUGS OF ABUSE SCREEN, URINE on 09-06-2024 AMPHETAMINE SCREEN, URINE Not detected Normal None Detected [facility] Comment on above: Order Comment: Scree n results should be used for treatment purposes only. Specimen will be kept for 2 weeks, if the sample is adequate. Confirmation testing can be initiated by calling the lab within 2 weeks. Result Comment: Urin e Amphetamine Cutoff: < 1000 ng/mL = None Detected Performed By: #### 4 6965 #### [facility] [address] [place], [place] [address] Cameron Vanegas M.D. [id number] BARBITURATE SCREEN URINE Not detected Normal None Detected [facility] Comment on above: Order Comment: Scree n results should be used for treatment purposes only. Specimen will be kept for 2 weeks, if the sample is adequate. Confirmation testing can be initiated by calling the lab within 2 weeks. Result Comment: Urin e Barbiturates Cutoff: < 200 ng/mL = None Detected Performed By: #### 4 6945 #### [facility] [address] [place] [address] Cameron Vanegas M.D. [id number] BENZODIAZEPINE SCREEN, URINE Not detected Normal None Detected [facility] Comment on above: Order Comment: Scree n results should be used for treatment purposes only. Specimen will be kept for 2 weeks, if the sample is adequate. Confirmation testing can be initiated by calling the lab within 2 weeks. Result Comment: Urin e Benzodiazepine Cutoff: < 200 ng/mL = None Detected Performed By: #### 4 6965 #### LAB [address] [address] Cameron Vanegas M.D. [id number] BUPRENORPHINE, URINE Not detected Normal None Detected [facility] Comment on above: Order Comment: Scree n results should be used for treatment purposes only. Specimen will be kept for 2 weeks, if the sample is adequate. Confirmation testing can be initiated by calling the lab within 2 weeks. Result Comment: Urin e Buprenorphine Cutoff: < 5 ng/mL = None Detected Performed By: #### 4 6965 #### LAB [address] [place] [address] Cameron Vanegas M.D. [id number] CANNABINOID SCREEN URINE Not detected Normal None Detected [facility] Comment on above: Order Comment: Scree n results should be used for treatment purposes only. Specimen will be kept for 2 weeks, if the sample is adequate. Confirmation testing can be initiated by calling the lab within 2 weeks. Result Comment: Urin e Cannabinoids Cutoff: < 50 ng/mL = None Detected Performed By: #### 4 [id number] #### LAB [address] [address] Cameron Vanegas M.D. [id number] COCAINE, SCREEN URINE Positive Abnormal None Detected [facility] Comment on above: Order Comment: Scree n results should be used for treatment purposes only. Specimen will be kept for 2 weeks, if the sample is adequate. Confirmation testing can be initiated by calling the lab within 2 weeks. Result Comment: Urin e Cocaine Cutoff: < 300 ng/mL = None Detected Performed By: #### 4 6965 #### LAB [address] [place] [address] Cameron Vanegas M.D. [id number] FENTANYL, URINE Not detected Normal None Detected [facility] Comment on above: Order Comment: Scree n results should be used for treatment purposes only. Specimen will be kept for 2 weeks, if the sample is adequate. Confirmation testing can be initiated by calling the lab within 2 weeks. Result Comment: Urin e Fentanyl Cutoff: < 1 ng/mL = None Detected Performed By: #### 4 6965 #### LAB [address] [address] Cameron Vanegas M.D. [id number] METHADONE SCREEN, URINE Not detected Normal None Detected [facility] Comment on above: Order Comment: Scree n results should be used for treatment purposes only. Specimen will be kept for 2 weeks, if the sample is adequate. Confirmation testing can be initiated by calling the lab within 2 weeks. Result Comment: Urin e Methadone Cutoff: < 300 ng/mL = None Detected Performed By: #### 4 [id number] #### [facility] [address] [address] Cameron Vanegas M.D. [id number] OPIATE SCREEN URINE Positive Abnormal None Detected [facility] Comment on above: Order Comment: Scree n results should be used for treatment purposes only. Specimen will be kept for 2 weeks, if the sample is adequate. Confirmation testing can be initiated by calling the lab within 2 weeks. Result Comment: Urin e Opiates Cutoff: < 300 ng/mL = None Detected Performed By: #### 4 6965 #### MH LAB [address] [address] Cameron Vanegas M.D. [id number] OXYCODONE SCREEN, URINE Not detected Normal None Detected [facility] Comment on above: Order Comment: Scree n results should be used for treatment purposes only. Specimen will be kept for 2 weeks, if the sample is adequate. Confirmation testing can be initiated by calling the lab within 2 weeks. Result Comment: Urin e Oxycodone Cutoff: < 100 ng/mL = None Detected Performed By: #### 4 6965 #### MH LAB [address] [place] [address] Cameron Vanegas M.D. [id number] ED Prov Noteon 09-06-2024 ED Prov Note ED PROVIDER NOTE [facility] 3 NAME: Maryse Mak AGE: 69 y.o. : 1955 VISIT DATE: 09/06/2024 CSN: [id number] PCP: Rayo Jaimes MD Chief Complaint Patient presents with Hand Injury Patient is a 69-year-old male with history of alcohol abuse, arthritis, COPD, cocaine abuse, CAD, HTN who presents with a hand injury. Patient arrives as a transfer from [facility]. 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 Normal [facility] ED Prov Note [facility] EMERGENCY DEPARTMENT ATTENDING NOTE: NAME: Maryse Mak CSN: [id number] 69 y.o. 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 Normal [facility] H AND James 09-06-2024 H AND P -- Attestation signed by Denilson Esquivel DO at 09/06/2024 9:12 PM I have personally performed a [id number]-[id number] diagnostic evaluation of this patient on 09/06/2024. After discussing the case with David Lee PA-C, I performed the substantive part of the medical decision making for this encounter and approved the RUCHI's plan of care with the following additions: Patient is a 69-year-old male who presented to [facility] with cellulitis of the right hand [...] and Physical Note 09/06/24 Maryse Mak 1955 [id number] Assessment/Plan: Maryse Mak is a 69 y.o. male with a history of CAD, HTN who presented to the [place] ED for right had cellulitis, ortho evaluated and had concern for flexor tenosynovitis. S/p Vanc and zosyn and patient transferred to [facility] 09/06/2024 for hand surgery evaluation. Trop 23-21, WBC 19.29, CRP 194, UDS + for cocaine and opiates. CTA H/n without acute infarct. Right Hand Cellulitis: with concern for flexor tenosynovitis in setting of pain with passive extension, ascending lymphangitis. 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 In ED: WBC 19.29 CRP 194, x-ray [...] CAD, COPD, HTN who presented to the [place] ED for right had cellulitis, ortho evaluated and had concern for flexor tenosynovitis. S/p Vanc and zosyn and patient transferred to [facility] 09/06/2024 for hand surgery evaluation. Trop [...] in ED (more content not included)... Normal [facility] Incision and drainageon 08-16 Sebas Howard PA-C [...] the procedure well with no immediate complications [facility] MAGNESIUM LEVELon 09-06-2024 Magnesium [Mass/Vol] 2.3 mg/dL Normal 1.6-2.[address] [facility] Comment on above: Performed By: #### 4 6109 #### LAB [address] [place], [place] [address] Cameron Vanegas M.D. [id number] MR HAND RIGHT WITH AND WITHO UT [...] AM EDT Finalized by: KYLE NUNEZ on Ileana Sep 07, 2024 11:23:27 AM EDT Normal [facility] Comment on above: Order Comment: Injur y/Trauma or Illness?:Illness/Other How long have you had these symptoms (acute/chronic)?:Acute Reason for exam?:s/p burn on thumb 3 days ago Type of Exam?:Ongoing Additional signs and symptoms?:s/p burn on thumb 3 days ago NT PRO BNPon 09-06-2024 Natriuretic peptide B (Bld) [Mass/Vol] 162 pg/mL Normal 0-300 [facility] Comment on above: Order Comment: Pride Study Cut-offsRule In:< /= 50 Years >450 pg/mL51 Years - 75 Years >900 pg/mL76 Years - 99 Years >1800 pg/mLRule Out:All patients <300 pg/mL Performed By: #### 4 6612 #### LAB [address] [place], [place] [address] Cameron Vanegas M.D. [id number] POC VENOUS BLOOD GAS PANEL-P [facility]ale - Anand 09-06-2024 BASE EXCESS, VENOUS 1.3 Normal -2.0-2.0 [facility] Comment on above: Performed By: #### 4 5033 #### LAB [address] [place], [place] [address] Cameron Vanegas M.D. [id number] CALCIUM IONIZED 4.6 mg/dL Normal 4.5-5.3 [facility] Comment on above: Performed By: #### 4 5033 #### LAB [address] [place] [address] Cameron Vanegas M.D. [id number] CARBOXYHEMOGLOBIN 3.3 % of total Hb High <=1.5 [facility] Comment on above: Result Comment: Refe rence Ranges: Suburban Non-smokers: <1.5% Smokers: 1.5-5.0% Heavy Smokers: 5.0-9.0% Performed By: #### 4 5033 #### [facility] [address] [address] Cameron Vanegas M.D. [id number] Chloride [Moles/Vol] 102 mmol/L Normal 98-[address] [facility] Comment on above: Performed By: #### 4 5033 #### LAB [address] [address] Cameron Vanegas M.D. [id number] Glucose [Mass/Vol] 80 mg/dL Normal 65-99 [facility] Comment on above: Performed By: #### 4 5033 #### LAB [address] [address] Cameron Vanegas M.D. [id number] HCO3 (Bld) [Moles/Vol] 27.7 mmol/L Normal 24.0-28.0 [facility] Comment on above: Performed By: #### 4 5033 #### [facility] LAB [address] [place] [address] Cameron Vanegas M.D. [id number] Hematocrit (Bld) [Volume fraction] 48.2 % Normal 41.0-53.0 [facility] Comment on above: Performed By: #### 4 5033 #### LAB [address] [place] [address] Cameron Vanegas M.D. [id number] Hemoglobin (Bld) [Mass/Vol] 15.7 g/dL Normal 13.5-17.5 [facility] Comment on above: Performed By: #### 4 5033 #### LAB [address] [place] [address] Cameron Vanegas M.D. [id number] LACTIC ACID, WHOLE BLOOD 1.2 mmol/L Normal 0.6-2.0 [facility] Comment on above: Performed By: #### 4 5033 #### LAB [address] [place] [address] Cameron Vanegas M.D. [id number] METHEMOGLOBIN < Normal 0.0-2.0 [facility] Comment on above: Performed By: #### 4 5033 #### LAB [address] [place] [address] Cameron Vanegas M.D. [id number] O2HB 45.7 % Normal No established reference range [facility] Comment on above: Performed By: #### 4 5033 #### LAB [address] [address] Cameron Vanegas M.D. [id number] Oxygen saturation in Blood 47.7 % Normal 40.0-70.0 [facility] Comment on above: Performed By: #### 4 5033 #### LAB [address] [place] [address] Cameron Vanegas M.D. [id number] PCO2 VENOUS 49.1 mm Hg Normal 41.0-51.0 [facility] Comment on above: Performed By: #### 4 5033 #### LAB [address] [place] [address] Cameron Vanegas M.D. [id number] PH VENOUS 7.36 Normal 7.32-7.42 [facility] Comment on above: Performed By: #### 4 5033 #### LAB [address] [place] [address] Cameron Vanegas M.D. [id number] PO2 VENOUS < Normal 25-40 [facility] Comment on above: Result Comment: Caut ion: pO2 reference ranges for some specimen types are lower than the measuring range of the instrument. Performed By: #### 4 5033 #### LAB [address] [place] [id number] Cameron Vanegas M.D. [id number] Potassium [Moles/Vol] 3.9 mmol/L Normal 3.5-5.1 [facility] Comment on above: Performed By: #### 4 5033 #### LAB [address] [place] [address] Cameron Vanegas M.D. [id number] Sodium [Moles/Vol] 138 mmol/L Normal 135-145 [facility] Comment on above: Performed By: #### 4 5033 #### LAB [address] [place] [id number] Cameron Vanegas M.D. [id number] SPECIMEN SOURCE RADIANCE Not specified Normal [facility] Comment on above: Performed By: #### 4 5033 #### LAB [address] [place] [address] Cameron Vanegas M.D. [id number] PROCALCITONINon 09-06-2024 PROCALCITONIN 0.66 ng/ml High <0.50 [facility] Comment on above: Order Comment: Resul ts of 0.50 and 2.00 ng/ml are indeterminate and should be repeated within 6-24 hours. Performed By: #### 4 7652 #### LAB [address] [place] [address] Cameron Vanegas M.D. [id number] PT/INRon 09-06-2024 INR Coag (PPP) [Relative time] 1.1 {INR} Normal 0.8-1.1 [facility] Comment on above: Order Comment: Durin g the induction phase of oral anticoagulation, the INR may not reflect the anticoagulation status of the patient. Therapeutic ranges for INR's are: Most clinical situations: INR 2.0-3.0 Mechanical Prosthetic Valve: INR 2.5-3.5 Critical: INR >5.0 Performed By: #### 4 6391 #### LAB [address] [place] [address] Cameron Vanegas M.D. [id number] PT Coag (PPP) [Time] 14.4 s High 11.8-14.[address] [facility] Comment on above: Order Comment: Mariana aldridge the induction phase of oral anticoagulation, the INR may not reflect the anticoagulation status of the patient. Therapeutic ranges for INR's are: Most clinical situations: INR 2.0-3.0 Mechanical Prosthetic Valve: INR 2.5-3.5 Critical: INR >5.0 Performed By: #### 4 6391 #### LAB [address] [place] [address] Cameron Vanegas M.D. [id number] SEDIMENTATION RATEon 025 SEDIMENTATION RATE, ERYTHROCYTE 19 mm/hr Normal 0-20 [facility] Comment on above: Performed By: #### 4 6477 #### LAB [address] [place] [address] Cameron Vanegas M.D. [id number] TROPONIN X 2 (NOW AND REPEAT IN 2 HOURS)on 09-06-2024 TROPONIN T DELTA CHANGE INTERPRETATION Probable non-acute cardiac injury or late presentation of acute injury. Normal [facility] Comment on above: Performed By: #### 4 5033 #### LAB [address] [place] [address] Cameron Vanegas M.D. [id number] TROPONIN T DELTA DIFFERENCE -2 ng/L Normal < = -/+ 7 change [facility] Comment on above: Performed By: #### 4 5033 #### LAB [address] [place] [address] Cameron Vanegas M.D. [id number] TROPONIN T NG/L 21 ng/L Normal <=22 [facility] Comment on above: Performed By: #### 4 5033 #### LAB [address] [place] [address] Cameron Vanegas M.D. [id number] BASELINE TROPONIN T NG/L 23 ng/L Off scale high <=22 [facility] Comment on above: Performed By: #### 4 6608 #### LAB [address] [address] Cameron Vanegas M.D. [id number] TROPONIN T INTERPRETATION Possible acute cardiac injury. Normal [facility] Comment on above: Performed By: #### 4 6608 #### LAB [address] [place], [place] [address] Cameron Vanegas M.D. [id number] TSH WITH REFLEX FREE T4on TSH Qn 1.13 m[IU]/L Normal 0.27-4.20 [facility] Comment on above: Performed By: #### 4 6612 #### LAB [address] [place], [place] [address] Cameron Vanegas M.D. [id number] TYPE AND SCREENon 09-06-2024 TYPE AND SCREEN ABORH: AB Negative AB SCREEN: Negative EXPIRATION DATE: 09/09/2024 23:59 EST Normal [facility] WOUND AEROBIC AND ANAEROBIC CULTUREon 09-06-2024 WOUND [...] Vancomycin Susc Islt S 0.5 F Abnormal [facility] Comment on above: Performed By: #### 4 6124 #### [facility] LAB [address] [place] [address] Berhane Mcclure M.D. [id number] XR CHEST PA/APon 09-06-2024 XR CHEST PA/AP [...] on WedSep 06, 2024 2:19:22 PM EDT [facility] Comment on above: Order Comment: Injur [...] on WedSep 07, 2024 3:35:31 AM EDT [facility] Comment on above: Order Comment: Injur y/Trauma or Illness?:Illness/Other How long have you had these symptoms (acute/chronic)?:Acute Reason for exam?:MRI CLEARANCE METAL IN EYES OVER 40 YRS AGO History of cancer?:u Surgeries, chemotherapy, or radiation?:u Type of Exam?:Initial Additional signs and symptoms?:MRI CLEARANCE METAL IN EYES OVER 40 YRS AGO XR HAND RIGHT 3+ VIEWS (PRIYA ARANDA)on 09-06-2024 XR HAND RIGHT 3+ VIEWS (STANDARD) [...] on WedSep 06, 2024 4:49:51 PM EDT [facility] Comment on above: Order Comment: Injur y/Trauma or Illness?:Injury/TraumaHow long have you had these symptoms (acute/chronic)?:AcuteReason for exam?:cellulitisHistory of cancer?:uSurgeries, chemotherapy, or radiation?:uType of Exam?:InitialMechanism of injury?:pt states he burned himself 5 days ago XR MR [place] 09-06-2024 Radiology Study observation (narrative) [facility] ED Prov Noteon 09-05-2024 ED Prov Note ED PROVIDER NOTE [facility] EMERGENCY DEPARTMENT NAME: Maryse Mak AGE: 69 y.o. 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 [address] [facility] [address] Urine Drug Screen (VISTA)on 05-02-2024 AMPHETAMINES Negative Normal <1000 ng/mL [facility] Comment on above: Order Comment: UNKNO WN Performed By: #### L [id number], L505.5000 #### [facility] [address] [facility] [address] BARBITIURATES Negative Normal < 200 ng/mL [facility] Comment on above: Order Comment: UNKNO WN Performed By: #### L [id number], L505.5000 #### [facility] [address] [facility] [address] BENZODIAZIPINE Positive Abnormal < 200 ng/mL [facility] Comment on above: Order Comment: UNKNO WN Performed By: #### L [id number], L505.5000 #### [facility] [address] [place], [address] COCAINE Negative Normal < 300 ng/mL [facility] Comment on above: Order Comment: UNKNO WN Performed By: #### L [id number], L505.5000 #### [facility] [address] [place], [address] ECSTACY Negative Normal < 500 ng/mL [facility] Comment on above: Order Comment: UNKNO WN Performed By: #### L [id number], L505.5000 #### [facility] [address] [place], [address] METHADONE Negative Normal < 300 ng/mL [facility] Comment on above: Order Comment: UNKNO WN Performed By: #### L 801.1541, L505.5000 #### [facility] [address] [place], [address] OPIATES Positive Abnormal < 300 ng/mL [facility] Comment on above: Order Comment: UNKNO WN Performed By: #### L [id number], L505.5000 #### [facility] [address] [place], [address] PCP Negative Normal < 25 ng/mL [facility] Comment on above: Order Comment: UNKNO WN Performed By: #### L 801.1541, L505.5000 #### [facility] [address] [place], [address] THC Negative Normal < 50 ng/mL [facility] Comment on above: Order Comment: UNKNO WN Performed By: #### L 801.1541, L505.5000 #### [facility] [address] [place], [address] VISTA UDS PH 5 Normal [facility] Comment on above: Order Comment: UNKNO WN Performed By: #### L 801.1541, L505.5000 #### [facility] [address] [place], [address] ED Prov Noteon 04-29-2024 ED Prov Note HPI: 04/29/2024, Time: @SIMÓN@ Maryse Lucien Obdulio is a 69 y.o. male presenting to [...] - PAST HISTORY - Past Medical History: @[facility]@ Past Surgical History: has a past surgical history that includes Back surgery; leg sx right and left blood clots (Bilateral, 2009); left arm ; Shoulder surgery; hc left heart cath (N/A, 11/07/2021); Cardiac Catheterization (N/A, 11/07/2021); Cabg W/ Radial Artery Perrin (N/A, 11/20/2021); Sternal Wiring (N/A, 08/06/2022); BRING [...] COURSE/MEDICAL DECI (more content not included)... Normal [facility] POC B-TYPE NATRIURETIC PEPTI DE (BNP) - [facility] 04-29-2024 Natriuretic peptide B (Bld) [Mass/Vol] 19.9 pg/mL Normal <100 [facility] POC BASIC METABOLIC PANEL - [facility] 04-29-2024 Chloride [Moles/Vol] 109 mmol/L High 98-108 [facility] Comment on above: Order Comment: [facility] has implemented the eGFR calculation approach that does not have a coefficient for race that conforms to the NKF-ASN Task Force Recommendations. CO2 [Moles/Vol] 27 mmol/L Normal 21-32 [facility] Comment on above: Order Comment: [facility] has implemented the eGFR calculation approach that does not have a coefficient for race that conforms to the NKF-ASN Task Force Recommendations. Creatinine [Mass/Vol] 0.90 mg/dL Normal 0.80-1.30 [facility] Comment on above: Order Comment: [facility] has implemented the eGFR calculation approach that does not have a coefficient for race that conforms to the NKF-ASN Task Force Recommendations. Glucose [Mass/Vol] 93 mg/dL Normal 65-99 [facility] Comment on above: Order Comment: [facility] has implemented the eGFR calculation approach that does not have a coefficient for race that conforms to the NKF-ASN Task Force Recommendations. POC GFR 94 mL/min/1.73 m2 Normal >=60 [facility] Comment on above: Order Comment: [facility] has implemented the eGFR calculation approach that does not have a coefficient for race that conforms to the NKF-ASN Task Force Recommendations. Result Comment: Rosanne mated GFR was calculated using the 2020 CKD-EPI creatinine equation. POC IONIZED CALCIUM 4.9 mg/dL Normal 4.5-5.3 [facility] Comment on above: Order Comment: [facility] has implemented the eGFR calculation approach that does not have a coefficient for race that conforms to the NKF-ASN Task Force Recommendations. Potassium [Moles/Vol] 4.0 mmol/L Normal 3.5-5.1 [facility] Comment on above: Order Comment: [facility] has implemented the eGFR calculation approach that does not have a coefficient for race that conforms to the NKF-ASN Task Force Recommendations. Sodium [Moles/Vol] 146 mmol/L High 135-145 [facility] Comment on above: Order Comment: [facility] has implemented the eGFR calculation approach that does not have a coefficient for race that conforms to the NKF-ASN Task Force Recommendations. Urea nitrogen [Mass/Vol] 19 mg/dL Normal 8-25 [facility] Comment on above: Order Comment: [facility] has implemented the eGFR calculation approach that does not have a coefficient for race that conforms to the NKF-ASN Task Force Recommendations. POC CBC AND DIFFERENTIALon 1 06-30-2023 BASOPHILS ABSOLUTE COUNT 0.01 K/mcL Normal 0.00-0.30 [facility] Basophils/100 WBC (Bld) 0.1 % Normal [facility] Eosinophils (Bld) [#/Vol] 0.26 10*3/uL Normal 0.00-0.50 [facility] Eosinophils/100 WBC (Bld) 3.5 % Normal [facility] Erythrocyte distribution width (RBC) [Ratio] 13.7 % Normal 11.6-14.8 [facility] Hematocrit (Bld) [Volume fraction] 45.9 % Normal 41.0-53.0 [facility] Hemoglobin (Bld) [Mass/Vol] 15.6 g/dL Normal 13.5-17.5 [facility] IG ABSOLUTE 0.05 K/mcL Normal 0.00-0.30 [facility] IG PERCENT 0.70 % Normal [facility] Comment on above: Result Comment: The IG parameter is the percentage of metamyelocytes, myelocytes and promyelocytes. An immature granulocyte count (IG) of 1% or more suggests the possibility of infection, an IG count of 3% is very likely related to an infection. Lymphocytes (Bld) [#/Vol] 1.83 10*3/uL Normal 0.90-4.00 [facility] Lymphocytes/100 WBC (Bld) 24.6 % Normal [facility] MCH (RBC) [Entitic mass] 31.0 pg Normal 26.0-34.0 [facility] MCV (RBC) [Entitic vol] 91.3 fL Normal 80.0-100.0 [facility] MEAN CORPUSCULAR HEMOGLOBIN CONC 34.0 g/dL Normal 31.0-37.0 [facility] Monocytes (Bld) [#/Vol] 0.53 10*3/uL Normal 0.30-0.90 [facility] Monocytes/100 WBC (Bld) 7.1 % Normal [facility] NEUTROPHILS ABSOLUTE COUNT 4.76 K/mcL Normal 1.70-7.00 [facility] Neutrophils/100 WBC (Bld) 64.0 % Normal [facility] Platelet mean volume (Bld) [Entitic vol] 10.3 fL Normal 9.4-12.4 [facility] Platelets (Bld) [#/Vol] 209 10*3/uL Normal 150-400 [facility] RBC (Bld) [#/Vol] 5.03 10*6/uL Normal 4.50-5.90 [facility] WBC (Bld) [#/Vol] 7.44 10*3/uL Normal 4.50-11.00 [facility] I < Normal <0.05 [facility] POC TROPONIN I < Normal <0.05 [facility] XR CHEST PA/APon 04-29-2024 XR [...] ID: [id number] Dictated by: KELSIE CANTRELL on [facility] Apr 29, 2024 5:36:22 PM EST Transcribed by: KELSIE CANTRELL on [facility] Apr 29, 2024 5:36:22 PM EST Finalized by: KELSIE CANTRELL on [facility] Apr 29, 2024 5:36:22 PM EST Normal [facility] Comment on above: Order Comment: Injur y/Trauma [...] Successful fluoroscopic guided right hip steroid injection. ST/pji Workstation ID: [id number] Dictated by: MINH LANDRY on WedFeb 28, 2024 3:40:04 PM EDT Transcribed by: ARCHANA GARCIA on WedFeb 28, 2024 4:05:35 PM EDT Finalized by: MINH LANDRY on WedFeb 28, 2024 10:09:27 PM EDT Normal [facility] Comment on above: Order Comment: Injur y/Trauma or Illness?:Illness/OtherHow long have you had these symptoms (acute/chronic)?:ChronicReason for exam?:Right hip painType of Exam?:InitialAdditional signs and symptoms?:primary O/A of right hipFluoro time in minutes:0.07Fluoro dose in mGy?:10.91 XR ASPIRATION/INJECTION LARG E JOINT RIGHTon 11-19-2023 XR ASPIRATION/INJECTION LARGE JOINT RIGHT EXAMINATION: FLUOROSCOPIC GUIDED RIGHT HIP INTRA-ARTICULAR STEROID INJECTION HISTORY: M16.11 Primary osteoarthritis of right hip DYE RANGE TENDER(S): Florencio Chambers MD COMPARISON: Right hip steroid [...] with the right hip in internal rotation. Justowriter Operator fluoroscopic images of the right hip demonstrate [...] on WedNov 19, 2023 4:35:45 PM EDT [facility] Comment on above: Order Comment: Injur [...] mo f/u Pt was evaluated at in [place] 09/16 for swelling of his tongue. Dx [...] a 1-month follow-up. He was seen at [facility] on 09/17/2023 for tongue swelling and [...] and S2, no murmur, no rub. Skin: [place], moist, well-hydrated, showing no signs of tenting. [...] after patient or guardian consented to allow Rhonasantiago Heather nails to record this visit. MARY predictive maintenance specialist and provider reviewed before signing. MARY: Raven Burk Follow-up With When Contact Information Paulette CARBALLO CNP In 1 [address] [place] [address]- Additional Instructions: Problem List/Past Medical History Ongoing BPH without urinary obstruction CAD in [place] artery COPD mixed type Erecti (more content not included)... Normal [facility] Comment on above: Result Comment: Elec tronically Signed By: Paulette CARBALLO CNP\.br\Date and Time Signed: 11/10/23 07:57 EDT\.br\Electronically Co-Signed By: aRni Flores\.br\Date and Time Co-Signed: 10/28/23 17:49 EDT Ambulatory Visit Summaryon 0 10-28-2023 Ambulatory Visit Summary MARYSE MAK :1955 Visit Date:10/28/2023 Ambulatory Visit Instructions Your Diagnosis HTN (hypertension) Leg cramps BMI 29.0-29.9,adult Overweight Your Care Team Attending Physician - Paulette CARBALLO CNP Primary Care Physician - Paulette CARBALLO CNP This Is Your Medications List acetaminophen-hydrocod one ([place] 325 mg-7.5 mg oral tablet) Contact prescribing physician if questions or concerns amlodipine (amLODIPine 5 mg Tab) aspirin (aspirin 81 mg Oral EC Tab) fluticasone nasal (Flonase 0.05 mg/inh Roosevelt) gabapentin (gabapentin 800 mg Tab) sildenafil (Viagra 100 mg Tab) tamsulosin (tamsulosin 0.4 mg Cap) Discharge Vitals Heart Rate (Peripheral) 81 Blood Pressure 131/81 Height 183 cm Height 72 in Weight 98.6 kg Weight 216.92 lb BMI 29.44 What to do next Scheduled Follow-Up Appointments 2023 3:00 PM EDT With: Paulette CARBALLO CNP Where: [facility] Normal [facility] CHEMISTRYOrdered By: SYSTEM SYSTEM on 10-28-2023 Albumin [...] 9 mmol/L Normal 6 - 16 mEq/L R emisol Chem AST [Catalytic activity/Vol] 20 [iU]/d Normal 5 - 43 Int._Unit/L [facility] Bilirubin [Mass/Vol] 0.5 mg/dL Normal 0.0 - 1 .1 mg/dL [facility] Calcium [Mass/Vol] 9.3 mg/dL Normal 8.9 - 11. 1 mg/dL [facility] Chloride [Moles/Vol] 106 mmol/L Normal 101 - 1 11 mmol/L [facility] CO2 [Moles/Vol] 29 mmol/L Normal 21 - 31 mmol/L [facility] Creatinine [Mass/Vol] 1.1 mg/dL Normal 0.5 - 1.3 mg/dL [facility] eGFR 74 mL/min/1.73 m2 Normal >=59mL/min /1. 73 m2 [facility] Globulin (S) [Mass/Vol] 3.0 g/dL Normal 1.4 - 4.0 gm/dL [facility] Glucose [Mass/Vol] 91 mg/dL Normal 55 - 199 mg/dL [facility] Potassium [Moles/Vol] 4.1 mmol/L Normal 3.5 [...] 10-28-2023 Albumin [Mass/Vol] 4.2 g/dL Normal 3.3-5.0 [facility] Comment on above: Performed By: #### 2 [id number] #### [facility] [address] [place] [address] Albumin/Globulin (S) [Mass conc ratio] 1.4 Normal 1.1-2.2 [facility] Comment on above: Performed By: #### 2 [id number] #### [facility] [address] [place] [address] ALP [Catalytic activity/Vol] 79 Int._Unit/L Normal 21-98 [facility] Comment on above: Performed By: #### 2 [id number] #### [facility] [address] [place] [address] ALT No additional P-5'-P [Catalytic activity/Vol] 18 Int._Unit/L Normal 6-46 [facility] Comment on above: Performed By: #### 2 [id number] #### [facility] [address] [place] [address] Anion gap [Moles/Vol] 9 mmol/L Normal 6-16 [facility] Comment on above: Performed By: #### 2 [id number] #### [facility] [address] [place] [address] AST [Catalytic activity/Vol] 20 Int._Unit/L Normal 5-43 [facility] Comment on above: Performed By: #### 2 [id number] #### [facility] [address] [place] [address] Bilirubin [Mass/Vol] 0.5 mg/dL Normal 0.0-1.1 [facility] Comment on above: Performed By: #### 2 [id number] #### [facility] [address] [place] [address] Calcium [Mass/Vol] 9.3 mg/dL Normal 8.9-11.1 [facility] Comment on above: Performed By: #### 2 [id number] #### [facility] [address] [place] [address] Chloride [Moles/Vol] 106 mmol/L Normal 101-111 [facility] Comment on above: Performed By: #### 2 [id number] #### [facility] [address] [place] [address] CO2 [Moles/Vol] 29 mmol/L Normal 21-31 [facility] Comment on above: Performed By: #### 2 [id number] #### [facility] [address] [place] [address] Creatinine [Mass/Vol] 1.1 mg/dL Normal 0.5-1.3 [facility] Comment on above: Performed By: #### 2 [id number] #### [facility] [address] [place] [address] Globulin (S) [Mass/Vol] 3.0 g/dL Normal 1.4-4.0 [facility] Comment on above: Performed By: #### 2 [id number] #### [facility] [address] [place] [address] Glucose [Mass/Vol] 91 mg/dL Normal 55-199 [facility] Comment on above: Performed By: #### 2 [id number] #### [facility] [address] [place] [address] Potassium [Moles/Vol] 4.1 mmol/L Normal 3.5-5.3 [facility] Comment on above: Performed By: #### 2 [id number] #### [facility] [address] [place] [address] Protein [Mass/Vol] 7.2 g/dL Normal 6.0-7.8 [facility] Comment on above: Performed By: #### 2 [id number] #### [facility] [address] [place] [address] Sodium [Moles/Vol] 140 mmol/L Normal 135-145 [facility] Comment on above: Performed By: #### 2 [id number] #### [facility] [address] [place] [address] Urea nitrogen [Mass/Vol] 17 mg/dL Normal 5-21 [facility] Comment on above: Performed By: #### 2 [id number] #### [facility] [address] [place] [address] Urea nitrogen/Creatinine [Mass ratio] 16 No Units Normal 10-20 [facility] Comment on above: Performed By: #### 2 [id number] #### [facility] [address] [place] [address] Family Medicine Office/Clini c Noteon 10-03-2023 Family Medicine Office/Clinic Note Chief Complaint ER Follow Up. HPI Staff Patient here for ER followup Hospital: [facility] ED Visit date: 09/16 Symptoms the patient presented with: Tongue swelling and his throat starting to shut. Current concerns: Needing to get his medications figured out. He states the ER doctor told him it was due to his BP medication. History of Present Illness Maryse presents for an ER follow-up. His tongue was swollen upon awakening on 09/17/2023. He went to the [place] ER. By the time he arrived at [...] disease, a 95 percent blockage in his [place] artery, and had bypass surgery. He reports [...] relief. His current medication regimen includes tizanidine, [place]rook 7.5, and gabapentin. He was told that [...] VSS. Weight is down 11 pounds since 04/2023r. He is on a general downward trend since a year ago. Musculoskeletal: There is no distal edema. Assessment/Plan 1. HTN (hypertension) (I10: Essential (primary) hypertension) - He had an ED visit at [place] on 09/17/2023 and this was reviewed. - [...] further with pain management. 3. CAD in [place] artery (I25.10: Atherosclerotic heart disease of [place] coronary artery without angina pectoris) - He told the PLASTIC SHEETING CUTTER that he was not taking aspirin 81 mg due to minor bruises on his arm. - Advised on the importance of taking that and how about if he took it 3 times a week? he agreed to try. Portions of this record may have been created with voice recognition artificial intelligence software, specifically Prismatic, Hermes IQ and or Tellja. Substitutions may have occurred due to the inherent limitations of voice recognition and artificial intelligence software. ATTESTATION Documentation services were performed after patient or guardian consented to allow Leotus to record this visit. MARY predictive maintenance specialist and provider reviewed before signing. MARY: Any Koenig. Follow-up With When Contact Information KAIT JAYLEN Paulette Rivera [address] [place] [id number]- Additional Instructions: Problem List/Past Medical History Ongoing BPH without urinary obstruction CAD in [place] artery COPD mixed type Erectile dysfunction Former [...] 4 refills, Not taking Flonase 0.05 mg/inh Roosevelt, 50 mcg= 1 spray(s), Nasal, BID, 11 refills gabapentin 800 mg Tab, 800 mg= 1 tab(s), Oral, TID, 12 refills tamsulosin 0.4 mg Cap, 0.4 mg= 1 cap(s), Oral, Daily, 4 refills Viagra (more content not included)... Normal [facility] Comment on above: Result Comment: Elec tronically Signed By: Rayo JAIMES MD\.br\Date and Time Signed: 10/03/23 22:43 EDT\.br\Electronically Co-Signed By: Any Koenig.br\Date and Time Co-Signed: 09/27/23 15:46 EDT ED Note-Physicianon 09-28-19 ED Note-Physician [id number]#[id number] 0TIFF [facility] Ambulatory Visit Summaryon 0 09-27-2023 Ambulatory Visit Summary MARYSE MAK :1955 Visit Date:09/27/2023 Ambulatory Visit Instructions Your Diagnosis HTN (hypertension) Lumbar spondylitis CAD in [place] artery Your Care Team Attending Physician - Rayo JAIMES MD Primary Care Physician - Paulette CARBALLO CNP This Is Your Medications List amlodipine (amLODIPine 5 mg Tab) Contact prescribing physician if questions or concerns aspirin (aspirin 81 mg Oral EC Tab) fluticasone nasal (Flonase 0.05 mg/inh Roosevelt) gabapentin (gabapentin 800 mg Tab) sildenafil (Viagra [...] PM EDT With: Paulette CARBALLO CNP Where: [facility] ED Note-Physicianon 09-20-19 ED Note-Physician [id number]#1.0 0TIFF [facility] ED Prov Noteon 09-17-2023 ED Prov Note [facility] EMERGENCY DEPARTMENT ATTENDING NOTE: NAME: Maryse Mak CSN: [id number] 68 y.o. PCP: Paulette Carballo CNP History: [...] requests his home dose of Neurontin and [place]rook. 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 [facility] ED Note-Physicianon 06-28-19 ED Note-Physician [id number]#1.0 0TIFF [facility] ED Note-Physicianon 06-24-19 ED Note-Physician [id number]#1.0 0TIFF [facility] Ambulatory Visit Summaryon 1 07-06-2022 Ambulatory Visit Summary MARYSE MAK :1955 Visit Date:05/05/2023 Ambulatory Visit Instructions Your Diagnosis CAD in [place] artery COPD mixed type HTN (hypertension) History of alcoholism Lumbar spondylitis Major depressive disorder, single episode, severe History of substance abuse BPH without urinary obstruction BMI 30.0-30.9,adult Morbid obesity Your Care Team Attending Physician - Vanessa Mcrae DO Primary Care Physician - Paulette CARBALLO CNP This Is Your Medications List aspirin (aspirin 81 mg Oral EC Tab) fluticasone nasal (Flonase 0.05 mg/inh Roosevelt) lisinopril (lisinopril 30 mg Tab) sildenafil (Viagra [...] AM EST With: Paulette CARBALLO CNP Where: [facility] Family Medicine [facility] Family Medicine Office/Clini c Noteon 05-05-2023 [...] sources are seen Assessment/Plan 1. CAD in [place] artery (I25.10: Atherosclerotic heart disease of [place] coronary artery without angina pectoris) stable to [...] with voice recognition artificial intelligence software, specifically Prismatic, Hermes IQ and or VideoAvatars (more content not included)... Normal [facility] Comment on above: Result Comment: Elec tronically Signed By: Vanessa Mcrae DO S.\.br\Date and Time Signed: 05/05/23 13:38 EST\.br\Electronically Co-Signed By: Chace Sinclair\.br\Date and Time Co-Signed: 05/05/23 13:34 EST\.br\Electronically Co-Signed By: Vanessa Mcrae DO S.\.br\Date and Time Co-Signed: 05/05/23 13:41 EST Basic Metabolic Profon 04-21 Anion gap [Moles/Vol] 7 mmol/L Low 9-17 [facility] Comment on above: Performed By: #### B MOHAN, XLAV #### [facility] [address] [facility] [place] [address] Spread Cutter: Bunny Reilly DO Calcium [Mass/Vol] 9.3 mg/dL Normal 8.6-10.4 [facility] Comment on above: Performed By: #### B MOHAN, XLAV #### [facility][note 2][address] [facility] [place] [address] Spread Cutter: Bunny Reilly DO Chloride [Moles/Vol] 105 mmol/L Normal 98-107 [facility] Comment on above: Performed By: #### B MOHAN, XLAV #### [facility][note 2]0 [facility] [place] [address] Spread Cutter: Bunny Reilly DO CO2 [Moles/Vol] 31 mmol/L Normal 20-31 [facility] Comment on above: Performed By: #### B MOHAN, XLAV #### [facility] [address] [facility] [place] [address] Spread Cutter: Bunny Reilly DO Creatinine [Mass/Vol] 1.0 mg/dL Normal 0.7-1.2 [facility] Comment on above: Performed By: #### B MOHAN, XLAV #### [facility][note 2]0 [facility] [place] [address] Spread Cutter: Bunny Reilly DO GFR/1.73 sq M.predicted among non-blacks MDRD (S/P/Bld) [Vol rate/Area] mL/min/{1.73_m2} Normal >60 [facility] Comment on above: Result Comment: [...] Performed By: #### B MOHAN, XLAV #### [facility][note 2]0 [facility] [place] [address] Spread Cutter: Bunny Reilly DO Glucose [Mass/Vol] 106 mg/dL High 70-99 [facility] Comment on above: Performed By: #### B MOHAN, XLAV #### [facility] [address] [place] [address]. [place] [address] Spread Cutter: Bunny Reilly DO Potassium [Moles/Vol] 4.5 mmol/L Normal 3.7-5.3 [facility] Comment on above: Performed By: #### B MOHAN, XLAV #### [facility][note 2]0 [facility] [place] [address] Spread Cutter: Bunny Reilly DO Sodium [Moles/Vol] 143 mmol/L Normal 135-144 [facility] Comment on above: Performed By: #### B MOHAN, XLAV #### [facility] [address] [facility] [place] [address] Spread Cutter: Bunny Reilly DO Urea nitrogen [Mass/Vol] 9 mg/dL Normal 8-23 [facility] Comment on above: Performed By: #### B MP, XLAV #### [facility] [address] [facility] [place] [address] Spread Cutter: Bunny Reilly DO Extra Lavender Tubeon 2022 Extra Lavender Tube Normal [facility] Comment on above: Performed By: #### B MP, XLAV #### [facility] [address] [facility] [place] [address] Spread Cutter: Bunny Reilly DO RAD - MISCon 04-20-2023 RAD - MISC [id number] 20 [id number]#1.0 0TIFF Normal [facility] Extra Lavender Tubeon 2022 Extra Lavender Tube Normal [facility] Comment on above: Performed By: #### X LAV, TROPI #### [facility] [address] [facility] [place] [address] Spread Cutter: Bunny Reilly DO Troponinon 04-19-2023 Troponin, High Sens 14 ng/L Normal 0-22 [facility] Comment on above: Result Comment: High Sensitivity Troponin values cannot be compared with other Troponin methodologies. Performed By: #### X LAV, TROPI #### [facility] [address] [facility] [place] [address] Spread Cutter: Bunny Reilly DO XR CHEST PORTABLEon 04-19-20 [...] Alberto Angulo MD 04/19/23 Final result Normal [facility] Acetaminophenon 04-18-2023 Acetaminophen [Mass/Vol] ug/mL Low 10-30 [facility] Comment on above: Performed By: #### T ROPI, CDP, ALCB, ACET, SALI, BMP ####[facility] [id number] [place] [address] lab Director: Benigno Prakash MD Basic Metabolic Profon 04-18 Anion gap [Moles/Vol] 15 mmol/L Normal 9-17 [facility] Comment on above: Performed By: #### T REID, CDP, ALCB, ACET, SALI, BMP ####[facility] [id number] [place] [address] lab Director: Benigno Prakash MD Calcium [Mass/Vol] 9.1 mg/dL Normal 8.6-10.4 [facility] Comment on above: Performed By: #### T BITAI, CDP, ALCB, ACET, SALI, BMP ####[facility] [id number] [place] [address] lab Director: Benigno Prakash MD Chloride [Moles/Vol] 97 mmol/L Low 98-107 [facility] Comment on above: Performed By: #### T ROPI, CDP, ALCB, ACET, SALI, BMP ####[facility] Evv1829 [place] [address] lab Director: Benigno Prakash MD CO2 [Moles/Vol] 21 mmol/L Normal 20-31 [facility] Comment on above: Performed By: #### T ROPI, CDP, ALCB, ACET, SALI, BMP ####[facility] Ovq5100 [place], [place] [id number] lab Director: Benigno Prakash MD Creatinine [Mass/Vol] 1.2 mg/dL Normal 0.7-1.2 [facility] Comment on above: Performed By: #### T ROPI, CDP, ALCB, ACET, SALI, BMP ####[facility] Byz7120 [place], [place] 1960490 lab Director: Benigno Prakash MD GFR/1.73 sq M.predicted among non-blacks MDRD (S/P/Bld) [Vol rate/Area] mL/min/{1.73_m2} Normal >60 [facility] Comment on above: Result Comment: These results [...] renal tubular secretion. Performed By: #### T REID, CDP, ALCB, ACET, SALI, BMP ####[facility] [id number] [place], [place] [phone] lab Director: Benigno Prakash MD Glucose [Mass/Vol] 138 mg/dL High 70-99 [facility] Comment on above: Performed By: #### T BITAI, CDP, ALCB, ACET, SALI, BMP ####[facility] [id number] [place], [place] [phone] lab Director: Benigno Prakash MD Potassium [Moles/Vol] 3.5 mmol/L Low 3.7-5.3 [facility] Comment on above: Performed By: #### T ROPI, CDP, ALCB, ACET, SALI, BMP ####[facility] Ync0034 [place], [place] [id number] lab Director: Benigno Prakash MD Sodium [Moles/Vol] 133 mmol/L Low 135-144 [facility] Comment on above: Performed By: #### T ROPI, CDP, ALCB, ACET, SALI, BMP ####[facility] Jaa[address] [place] [phone] lab Director: Benigno Prakash MD Urea nitrogen [Mass/Vol] 24 mg/dL High 8-23 [facility] Comment on above: Performed By: #### T ROPI, CDP, ALCB, ACET, SALI, BMP ####[facility] [id number] [place] [address] lab Director: Benigno Prakash MD CBC with Diffon 04-18-2023 Abs. Basophil 0.03 k/uL Normal 0.00-0.20 [facility] Comment on above: Performed By: #### T BITAI, CDP, ALCB, ACET, SALI, BMP ####[facility] Vnp0229 [place], [place] [phone] Director: Benigno Prakash MD Abs.Imm.Granulocyte 0.03 k/uL Normal 0.00-0.30 [facility] Comment on above: Performed By: #### T ROPI, CDP, ALCB, ACET, SALI, BMP ####[facility] Swv2507 [place] [address] lab Director: Benigno Prakash MD Abs.Neutrophil (Seg) 12.90 k/uL High 2.1-6.5 [facility] Comment on above: Performed By: #### T ROPI, CDP, ALCB, ACET, SALI, BMP ####[facility] Pyh8812 [place] [address] lab Director: Benigno Prakash MD Basophils/100 WBC (Bld) 0 % Normal 0-2 [facility] Comment on above: Performed By: #### T ROPI, CDP, ALCB, ACET, SALI, BMP ####[facility] Bqj[address] [place] [address] Lab Director: Benigno Prakash MD Eosinophils (Bld) [#/Vol] 0.13 10*3/uL Normal 0.00-0.40 [facility] Comment on above: Performed By: #### T ROPI, CDP, ALCB, ACET, SALI, BMP ####[facility] [id number] [place] [address] Lab Director: Benigno Prakash MD Eosinophils/100 WBC (Bld) 1 % Normal 0-5 [facility] Comment on above: Performed By: #### T ROPI, CDP, ALCB, ACET, SALI, BMP ####[facility] Pbd[address] [place] [address] Lab Director: Benigno Prakash MD Erythrocyte distribution width (RBC) [Ratio] 14.7 % Normal 12.1-15.2 [facility] Comment on above: Performed By: #### T ROPI, CDP, ALCB, ACET, SALI, BMP ####[facility] [id number] [place] [address] Lab Director: Benigno Prakash MD Hematocrit (Bld) [Volume fraction] 44.0 % Normal 41.0-53.0 [facility] Comment on above: Performed By: #### T ROPI, CDP, ALCB, ACET, SALI, BMP ####[facility] Tvq[address] [place] [address] Lab Director: Benigno Prakash MD Hemoglobin (Bld) [Mass/Vol] 14.9 g/dL Normal 13.5-17.5 [facility] Comment on above: Performed By: #### T ROPI, CDP, ALCB, ACET, SALI, BMP ####[facility] Qyt0738 [facility] [place], [place] [phone] Lab Director: Benigno Prakash MD Immature granulocytes/100 WBC (Bld) 0 % Normal 0-5 [facility] Comment on above: Performed By: #### T ROPI, CDP, ALCB, ACET, SALI, BMP ####[facility] Yhf9314 [place] [phone] lab Director: Benigno Prakash MD Lymphocytes (Bld) [#/Vol] 1.25 10*3/uL Normal 1.00-4.80 [facility] Comment on above: Performed By: #### T ROPI, CDP, ALCB, ACET, SALI, BMP ####[facility] Ncm9798 [place] [address] lab Director: Beningo Prakash MD Lymphocytes/100 WBC (Bld) 8 % Low 13-44 [facility] Comment on above: Performed By: #### T ROPI, CDP, ALCB, ACET, SALI, BMP ####[facility] [id number] [place] [address] lab Director: Benigno Prakash MD MCH (RBC) [Entitic mass] 29.6 pg Normal 26.0-34.0 [facility] Comment on above: Performed By: #### T ROPI, CDP, ALCB, ACET, SALI, BMP ####[facility] Mnv[address] [place] [address] lab Director: Benigno Prakash MD MCHC (RBC) [Mass/Vol] 33.9 g/dL Normal 31.0-37.0 [facility] Comment on above: Performed By: #### T ROPI, CDP, ALCB, ACET, SALI, BMP ####[facility] [id number] [place] [phone] Lab Director: Benigno Prakash MD MCV (RBC) [Entitic vol] 87.3 fL Normal 80.0-100.0 [facility] Comment on above: Performed By: #### T ROPI, CDP, ALCB, ACET, SALI, BMP ####[facility] [id number] [place], [place] [phone] Director: Benigno Prakash MD Monocytes (Bld) [#/Vol] 1.10 10*3/uL High 0.00-1.00 [facility] Comment on above: Performed By: #### T ROPI, CDP, ALCB, ACET, SALI, BMP ####[facility] [id number] [facility] [place] [phone] Director: Benigno Prakash MD Monocytes/100 WBC (Bld) 7 % Normal 5-9 [facility] Comment on above: Performed By: #### T ROPI, CDP, ALCB, ACET, SALI, BMP ####[facility] Fdb7737 [facility], [place] [phone] Director: Benigno Prakash MD Neutrophil (Seg) 84 % High 39-[address] [facility] Comment on above: Performed By: #### T ROPI, CDP, ALCB, ACET, SALI, BMP ####[facility] Ufv7576 [facility], [place] [phone] Director: Benigno Prakash MD Platelet mean volume (Bld) [Entitic vol] 10.8 fL Normal 6.0-12.0 [facility] Comment on above: Performed By: #### T ROPI, CDP, ALCB, ACET, SALI, BMP ####[facility] Car6326 [facility] [place] [address] Lab Director: Benigno Prakash MD Platelets (Bld) [#/Vol] 221 10*3/uL Normal 140-450 [facility] Comment on above: Performed By: #### T ROPI, CDP, ALCB, ACET, SALI, BMP ####[facility] Msp2180 [place] [address] Lab Director: Benigno Prakash MD RBC (Bld) [#/Vol] 5.04 10*6/uL Normal 4.50-5.90 [facility] Comment on above: Performed By: #### T ROPI, CDP, ALCB, ACET, SALI, BMP ####[facility] Xyg8123 [place] [address] Lab Director: Benigno Prakash MD WBC (Bld) [#/Vol] 15.4 10*3/uL High 3.5-11.0 [facility] Comment on above: Performed By: #### T ROPI, CDP, ALCB, ACET, SALI, BMP ####[facility] Vci9635 [place] [address] Lab Director: Benigno Prakash MD Drug Scr, Abuse, Uron 2022 Amphetamine(s),Ur Negative Normal NEG [facility] Comment on above: Result Comment: (Positive cutoff 1000 ng/mL) Performed By: #### D AU #### [facility] Lab [address] [place] [address] Spread Cutter: Benigno Prakash MD Barbiturate(s),Ur Negative Normal NEG [facility] Comment on above: Result Comment: (Positive cutoff 200 ng/mL) Performed By: #### D AU #### [facility] [address] [place] [address] Spread Cutter: Benigno Prakash MD Benzodiazepine(s) Negative Normal NEG [facility] Comment on above: Result Comment: (Positive cutoff 200 ng/mL) Performed By: #### D AU #### [facility] [address] [place] [address] Spread Cutter: Benigno Prakash MD Cannabinoid(s),Ur Negative Normal NEG [facility] Comment on above: Result Comment: (Positive cutoff 50 ng/mL) Performed By: #### D AU #### [facility] [address] [place] [address] Spread Cutter: Benigno Prakash MD Cocaine Metabolite Positive Abnormal NEG [facility] Comment on above: Result Comment: (Positive cutoff 300 ng/mL) Performed By: #### D AU #### [facility] [address] [place] [address] Spread Cutter: Benigno Prakash MD Fentanyl, Urine Negative Normal NEG [facility] Comment on above: Result Comment: (Positive cutoff 5 ng/ml) Performed By: #### D AU #### [facility] [address] [place] [address] Spread Cutter: Benigno Prakash MD Interpretive Info Assay provides medic al screening only. The absence of expected drug(s) and/or Normal [facility] Comment on above: Result Comment: meta bolite(s) may indicate diluted or adulterated urine, limitations of testing or timing of collection. Testing for legal purposes should be confirmed by another method. To request confirmation of test result, please call the lab within 7 days of sample submission. Performed By: #### D AU #### [facility] [address] [place] [address] Spread Cutter: Benigno Prakash MD Methadone Ql (U) Negative Normal NEG [facility] Comment on above: Result Comment: (Positive cutoff 300 ng/mL) Performed By: #### D AU #### [facility] [address] [place] [address] Spread Cutter: Benigno Prakash MD Opiate(s), Ur Negative Normal NEG [facility] Comment on above: Result Comment: (Positive cutoff 300 ng/mL) Performed By: #### D AU #### [facility] [address] [place] [address] Spread Cutter: Benigno Prakash MD Oxycodone, Urine Negative Normal NEG [facility] Comment on above: Result Comment: (Positive cutoff 100 ng/mL) Performed By: #### D AU #### [facility] [address] [facility] [place], [place] 6[address]90 Spread Cutter: Benigno Prakash MD Phencyclidine, Ur Negative Normal NEG [facility] Comment on above: Result Comment: (Positive cutoff 25 ng/mL) Performed By: #### D AU #### [facility] [address] [place] [address] Spread Cutter: Benigno Prakash MD Ethanol Alcoholon 04-18-2023 Ethanol [Mass/Vol] mg/dL Normal <10 [facility] Comment on above: Performed By: #### T ROPI, CDP, ALCB, ACET, SALI, BMP ####[facility] Ubm3716 [place] [address] Lab Director: Benigno Prakash MD Ethanol percent <0.010 Normal [facility] Comment on above: Performed By: #### T ROPI, CDP, ALCB, ACET, SALI, BMP ####[facility] Sdc6585 [place] [address] Lab Director: Benigno Prakash MD [id number] 04-18-2023 SARS-CoV-2 (COVID-19) RNA IGOR+probe Ql (Unsp spec) Not detected Normal NOTDET [facility] Comment on above: Result Comment: Rapid NAAT: [...] management decisions. Fact sheet for Healthcare Providers: https://www.fda.gov/media/808663/download Fact sheet for Patients: https://www.fda.gov/media/483143/download Methodology: Isothermal Nucleic Acid Amplification Performed By: #### C OVRB #### [facility] [address] [place], [place] 8478[address] Spread Cutter: Benigno Prakash MD Salicylateon 04-18-2023 Salicylate <1.0 Low 3-10 [facility] Comment on above: Performed By: #### T TRAVIS MATHEWS, ALCB, ACET, SALI, BMP ####[facility] Zva[address] [place] [address] lab Director: Benigno Prakash MD Troponinon 04-18-2023 Troponin, High Sens 21 ng/L Normal 0-22 [facility] Comment on above: Result Comment: High Sensitivity Troponin values cannot be compared with other Troponin methodologies. Performed By: #### T TRAVIS MATHEWS, ALCB, ACET, SALI, BMP ####[facility] Fkl[address] [place] [address] lab Director: Benigno Prakash MD Formson 02-15-2023 Forms [id number] 00 [id number] 0CD:127 Normal [facility] Basic Metabolic Profon 01-28 Anion gap [Moles/Vol] 12 mmol/L Normal 9-17 [facility] Comment on above: Performed By: #### C ARIANNA CARIAS BMP ####[facility] Zar[address] [place] [address] lab Director: Benigno Prakash MD BUN/CRE Ratio 12 Normal 9-20 [facility] Comment on above: Performed By: #### C ARIANNA CARIAS BMP ####[facility] Ism[address] [place], [place] 8297590 lab Director: Benigno Prakash MD Calcium [Mass/Vol] 8.6 mg/dL Normal 8.6-10.4 [facility] Comment on above: Performed By: #### C DP TROPI, BMP ####[facility] Qwz5801 [place] [address] Lab Director: Benigno Prakash MD Chloride [Moles/Vol] 92 mmol/L Low 98-107 [facility] Comment on above: Performed By: #### C DP TROPI, BMP ####[facility] Qne7873 [place] [address] lab Director: Benigno Prakash MD CO2 [Moles/Vol] 25 mmol/L Normal 20-31 [facility] Comment on above: Performed By: #### C ARETHA TROPI, BMP ####[facility] Ibf6186 [place] [address] lab Director: eBnigno Prakash MD Creatinine [Mass/Vol] 1.0 mg/dL Normal 0.7-1.2 [facility] Comment on above: Performed By: #### C ARETHA TROPI, BMP ####[facility] Rgd0630 [place] [address] lab Director: Benigno Prakash MD GFR/1.73 sq M.predicted among non-blacks MDRD (S/P/Bld) [Vol rate/Area] mL/min/{1.73_m2} Normal >60 [facility] Comment on above: Result Comment: These results [...] renal tubular secretion. Performed By: #### C DP TROPI, BMP ####[facility] [address] [place] [address] Lab Director: Benigno Prakash MD Glucose [Mass/Vol] 107 mg/dL High 70-99 [facility] Comment on above: Performed By: #### C ARIANNA CARIAS BMP ####[facility] Yfw6286 [facility], [place] [phone] Director: Benigno Prakash MD Potassium [Moles/Vol] 3.4 mmol/L Low 3.7-5.3 [facility] Comment on above: Performed By: #### C ARIANNA CARIAS, BMP ####[facility] Mma9187 [facility], [place] [phone] Director: Benigno Prakash MD Sodium [Moles/Vol] 129 mmol/L Low 135-144 [facility] Comment on above: Performed By: #### C ARIANNA CARIAS BMP ####[facility] Lti1207 [place] [address] Lab Director: Benigno Prakash MD Urea nitrogen [Mass/Vol] 12 mg/dL Normal 8-23 [facility] Comment on above: Performed By: #### C ARIANNA CARIAS BMP ####[facility] Zkv8838 [facility] [place] [address] Lab Director: Benigno Prakash MD CBC with Diffon 01-28-2023 Abs. Bands 0.10 k/uL Normal 0.0-1.0 [facility] Comment on above: Performed By: #### C ARIANNA CARIAS, BMP ####[facility] Sjx2965 [facility] [place] [address] Lab Director: Benigno Prakash MD Abs. Basophil Normal 0.0-0.2 [facility] Comment on above: Performed By: #### C ARIANNA CARIAS, BMP ####[facility] Xit7576 [place] [address] Lab Director: Benigno Prakash MD Abs. Eosinophil Normal 0.0-0.4 [facility] Comment on above: Performed By: #### C DP, TROPI, BMP ####[facility] Xhz5313 [facility] [place] [address] Lab Director: Benigno Prakash MD Abs.Imm.Granulocyte Normal 0.00-0.30 [facility] Comment on above: Performed By: #### C DP, TROPI, BMP ####[facility] Stb6707 [facility] [place] [address] lab Director: Benigno Prakash MD Abs.Neutrophil (Seg) 3.58 k/uL Normal 2.1-6.5 [facility] Comment on above: Performed By: #### C DP, TROPI, BMP ####[facility] Xax1676 [facility] [place] [address] lab Director: Benigno Prakash MD Bands 2 % Normal 0-10 [facility] Comment on above: Performed By: #### C DP, TROPI, BMP ####[facility] Fac2690 [facility] [place] [address] lab Director: Benigno Prakash MD Basophil Normal 0-2 [facility] Comment on above: Performed By: #### C DP, TROPI, BMP ####[facility] Dso0944 [facility] [place] [address] lab Director: Benigno Prakash MD Eosinophil Normal 0-5 [facility] Comment on above: Performed By: #### C DP, TROPI, BMP ####[facility] Fqb8100 [place] [address] Lab Director: Benigno Prakash MD Immature Granulocyte Normal 0 [facility] Comment on above: Performed By: #### C DP, TROPI, BMP ####[facility] Xyu5518 [place] [address] Lab Director: Benigno Prakash MD Lymphocytes (Bld) [#/Vol] 0.93 10*3/uL Low 1.0-4.8 [facility] Comment on above: Performed By: #### C LILIAN CARIASI, BMP ####[facility] Csh[address] [place] [address] Lab Director: Benigno Prakash MD Lymphocytes/100 WBC (Bld) 19 % Normal 13-44 [facility] Comment on above: Performed By: #### C ARETHA TROPI, BMP ####[facility] Kfl4019 [facility] [place] [address] Lab Director: Benigno Prakash MD Monocytes (Bld) [#/Vol] 0.29 10*3/uL Normal 0.0-1.0 [facility] Comment on above: Performed By: #### C ARETHA [facility], BMP ####[facility] Nxf1756 [place] [address] Lab Director: Benigno Prakash MD Monocytes/100 WBC (Bld) 6 % Normal 5-9 [facility] Comment on above: Performed By: #### C ARETHA [facility], BMP ####[facility] Fqm2211 [facility] [place] [address] Lab Director: Benigno Prakash MD Morphology Cale (Bld) [Interp] MODERATE Normal [facility] Comment on above: Result Comment: ANIS OCYTOSIS Platelet morphology normal. Manual Differential Performed Performed By: #### C ARETHA TROPI, BMP ####[facility] Zzt9955 [facility] [place] [phone] Director: Benigno Prakash MD Neutrophil (Seg) 73 % Normal 39-[address] [facility] Comment on above: Performed By: #### C ARETHA TROPI, BMP ####[facility] Gji5715 [place] [address] Lab Director: Benigno Prakash MD Erythrocyte distribution width (RBC) [Ratio] 19.6 % High 12.1-15.2 [facility] Comment on above: Performed By: #### C LILIAN CARIASI, BMP ####[facility] Tdi[address] [place] [address] Lab Director: Benigno Prakash MD Hematocrit (Bld) [Volume fraction] 43.6 % Normal 41-53 [facility] Comment on above: Performed By: #### C ARETHA TROPI, BMP ####[facility] Yic[address] [place] [address] Lab Director: Benigno Prakash MD Hemoglobin (Bld) [Mass/Vol] 14.8 g/dL Normal 13.5-17.5 [facility] Comment on above: Performed By: #### C LILIAN CARIASI, BMP ####[facility] Jco9226 [facility] [place] [address] Lab Director: Benigno Prakash MD MCH (RBC) [Entitic mass] 28.6 pg Normal 26-34 [facility] Comment on above: Performed By: #### C LILIAN CARIASI, BMP ####[facility] [address]yu[address] [place], [place] [phone] Director: Benigno Prakash MD MCHC (RBC) [Mass/Vol] 33.9 g/dL Normal 31-37 [facility] Comment on above: Performed By: #### C ARETHA TROPI, BMP ####[facility] Dfx[address] [place] [address] Lab Director: Benigno Prakash MD MCV (RBC) [Entitic vol] 84.2 fL Normal 80-100 [facility] Comment on above: Performed By: #### C ARETHA TROPI, BMP ####[facility] Skx5357 [facility] [place] [address] Lab Director: Benigno Prakash MD Platelets (Bld) [#/Vol] 164 10*3/uL Normal 140-450 [facility] Comment on above: Performed By: #### C DP, TROPI, BMP ####[facility] R[address] [place] [address] Lab Director: Benigno Prakash MD RBC (Bld) [#/Vol] 5.18 10*6/uL Normal 4.5-5.9 [facility] Comment on above: Performed By: #### C DP, TROPI, BMP ####[facility] Rpd3738 [facility] [place] [address] Lab Director: Benigno Prakash MD WBC (Bld) [#/Vol] 4.9 10*3/uL Normal 3.5-11.0 [facility] Comment on above: Performed By: #### C DP, TROPI, BMP ####[facility] Spa9559 [facility], [place] [phone] Director: Benigno Prakash MD Troponinon 01-28-2023 Troponin, High Sens 16 ng/L Normal 0-22 [facility] Comment on above: Result Comment: High Sensitivity Troponin values cannot be compared with other Troponin methodologies. Performed By: #### C DP, TROPI, BMP ####[facility] Opa9428 [place], [place] [phone] Director: Benigno Prakash MD XR CHEST (2 VW)on 01-28-2023 XR CHEST (2 VW) EXAM: XR CHEST (2 VW ) HISTORY: cp COMPARISON: 01/25/2023 IMPRESSION: FINDINGS/IMPRESSION: 1. Patchy airspace opacities, bilaterally, mild. 2. Prior sternotomy. 3 normal sized heart. 4. No effusion. Consider a viral process. Interpreted by: Giovani Tanner Jr., MD Signed by: Giovani Tanner Jr., MD 01/28/23 Final result Normal [facility] Flu A/B Ag Detectionon 01-25 Flu A Ag Detection Negative Normal NEG [facility] Comment on above: Result Comment: for Influenza A Antigen Performed By: #### F LUABA #### [facility] [address] [place] [address] Spread Cutter: Benigno Prakash MD Flu B Ag Detection Negative Normal NEG [facility] Comment on above: Result Comment: for Influenza B Antigen. Performed By: #### F LUABA #### [facility] [address] [place] [address] Spread Cutter: Benigno Prakash MD RAD - MISCon 01-25-2023 RAD - MISC [id number] 02 [id number] CD:127 Normal [facility] XR CHEST PORTABLEon 01-26-20 SARS-CoV-2 (COVID-19) Ab [...] Benigno Corey MD 01/25/23 Final result Normal [facility] Basic Metabolic Panelon 09-0 Anion gap [Moles/Vol] 12 mmol/L 9 - 17 mmol/L [facility] Calcium [Mass/Vol] 8.9 mg/dL 8.6 - 10. 4 mg/dL [facility] Chloride [Moles/Vol] 106 mmol/L 98 - 10 7 mmol/L [facility] CO2 [Moles/Vol] 23 mmol/L 20 - 31 mmol/L [facility] Creatinine [Mass/Vol] 1.2 mg/dL 0.7 - 1.2 mg/dL [facility] GFR/1.73 sq M.predicted MDRD (S/P/Bld) [Vol rate/Area] - PINF [facility] Comment on above: These results are not [...] 104 mg/dL High 70 - 99 mg/dL [facility] Interpretation and review of laboratory results Abnormal [facility] Potassium [Moles/Vol] 3.9 mmol/L 3.7 - 5.3 mmol/L [facility] Sodium [Moles/Vol] 141 mmol/L 135 - 144 mmol/L [facility] Urea nitrogen [Mass/Vol] 15 mg/dL 8 - 23 mg/dL [facility] Urea nitrogen/Creatinine [Mass ratio] 13 mg/mg 9 - 20 [facility] Basic Metabolic Profon 01-20 Anion gap [Moles/Vol] 12 mmol/L Normal 9-17 [facility] Comment on above: Performed By: #### B TRAVIS PRESTON TROPI #### [facility] [address] [place] [address] Spread Cutter: Benigno Prakash MD BUN/CRE Ratio 13 Normal 9-20 [facility] Comment on above: Performed By: #### B TRAVIS PRESTON TROPI #### [facility] [address] [place] [id number] Spread Cutter: Benigno Prakash MD Calcium [Mass/Vol] 8.9 mg/dL Normal 8.6-10.4 [facility] Comment on above: Performed By: #### B TRAVIS PRESTON TROPI #### [facility] [address] [place] [address] Spread Cutter: Benigno Prakash MD Chloride [Moles/Vol] 106 mmol/L Normal 98-107 [facility] Comment on above: Performed By: #### B TRAVIS PRESTON, TROPI #### [facility] [address] [place], [place] [id number] Spread Cutter: Benigno Prakash MD CO2 [Moles/Vol] 23 mmol/L Normal 20-31 [facility] Comment on above: Performed By: #### B TRAVIS PRESTON, TROPI #### [facility] [address] [place], [place] [id number] Spread Cutter: Benigno Prakash MD Creatinine [Mass/Vol] 1.2 mg/dL Normal 0.7-1.2 [facility] Comment on above: Performed By: #### B TRAVIS PRESTON TROPI #### [facility] [address] [place] [address] Spread Cutter: Benigno Prakash MD GFR/1.73 sq M.predicted among non-blacks MDRD (S/P/Bld) [Vol rate/Area] mL/min/{1.73_m2} Normal >60 [facility] Comment on above: Result Comment: These results [...] tubular secretion. Performed By: #### B TRAVIS PRESTON TROPI #### [facility] [address] [place], [place] [id number] Spread Cutter: Benigno Prakash MD Glucose [Mass/Vol] 104 mg/dL High 70-99 [facility] Comment on above: Performed By: #### B TRAVIS PRESTON, TROPI #### [facility] [address] [place], [place] [id number] Spread Cutter: Benigno Prakash MD Potassium [Moles/Vol] 3.9 mmol/L Normal 3.7-5.3 [facility] Comment on above: Performed By: #### B TRAVIS PRESTON, TROPI #### [facility] [address] [place] [address] Spread Cutter: Benigno Prakash MD Sodium [Moles/Vol] 141 mmol/L Normal 135-144 [facility] Comment on above: Performed By: #### B TRAVIS PRESTON, TROPI #### [facility] [address] [place] [address] Spread Cutter: Benigno Prakash MD Urea nitrogen [Mass/Vol] 15 mg/dL Normal 8-23 [facility] Comment on above: Performed By: #### B TRAVIS PRESTON, TROPI #### [facility] [address] [phone] Spread Cutter: Benigno Prakash MD CBC with Auto Differentialon 01-20-2023 Basophils (Bld) [#/Vol] [facility] Basophils/100 WBC (Bld) 0 - 2 % [facility] Eosinophils % 0 - 5 % [facility] Eosinophils (Bld) [#/Vol] [facility] Erythrocyte distribution width (RBC) [Ratio] 20.1 % High 12.1 - 15.2 % [facility] Hematocrit (Bld) [Volume fraction] 45.3 % 41 - 53 % [facility] Hemoglobin (Bld) [Mass/Vol] 15.0 g/dL 13.5 - 17.5 g/dL [facility] Immature granulocytes (Bld) [#/Vol] [facility] Immature granulocytes/100 WBC (Bld) 0 % [facility] Interpretation and review of laboratory results Abnormal [facility] Lymphocytes/100 WBC (Bld) 35 % 13 - 44 % [facility] Lymphocytes/100 WBC (Bld) 1.30 % [facility] MCH (RBC) [Entitic mass] 28.3 pg 26 - 34 pg [facility] MCHC (RBC) [Mass/Vol] 33.0 g/dL 31 - 37 g/dL [facility] MCV (RBC) [Entitic vol] 85.6 fL 80 - 100 fL [facility] Monocytes/100 WBC (Bld) 8 % 5 - 9 % [facility] Monocytes/100 WBC (Bld) 0.30 % [facility] Morphology Cale (Bld) [Interp] MODERATE ANISOCYTOSIS [facility] Morphology Cale (Bld) [Interp] Manual Differential Performed [facility] Neutrophils/100 WBC (Bld) 57 % 39 - 75 % [facility] Platelets (Bld) [#/Vol] 180 10*3/uL [facility] RBC (Bld) [#/Vol] 5.30 10*6/uL 4.5 - 5.9 m/uL [facility] Segmented neutrophils/100 WBC (Bld) 2.10 % [facility] WBC other (Bld) [#/Vol] 3.7 [facility] CBC with Diffon 01-20-2023 Abs. Basophil Normal 0.0-0.2 [facility] Comment on above: Performed By: #### B TRAVIS PRESTON TROPI #### [facility] [address] [place] [address] Spread Cutter: Benigno Prakash MD Abs. Eosinophil Normal 0.0-0.4 [facility] Comment on above: Performed By: #### B TRAVIS PRESTON TROPI #### [facility] [address] [place] [address] Spread Cutter: Benigno Prakash MD Abs.Imm.Granulocyte Normal 0.00-0.30 [facility] Comment on above: Performed By: #### B TRAVIS PRESTON TROPI #### [facility] [address] [place] [phone] Spread Cutter: Benigno Prakash MD Abs.Neutrophil (Seg) 2.10 k/uL Normal 2.1-6.5 [facility] Comment on above: Performed By: #### B TRAVIS PRESTON TROPI #### [facility] [address] [place], [place] [id number] Spread Cutter: Benigno Prakash MD Basophil Normal 0-2 [facility] Comment on above: Performed By: #### B TRAVIS PRESTON, TROPI #### [facility] [address] [place], [place] [id number] Spread Cutter: Benigno Prakash MD Eosinophil Normal 0-5 [facility] Comment on above: Performed By: #### B MOHAN CDP, TROPI #### [facility] [address] [place], [place] [id number] Spread Cutter: Benigno Prakash MD Immature Granulocyte Normal 0 [facility] Comment on above: Performed By: #### B TRAVIS PRESTON, TROPI #### [facility] [address] [place] [address] Spread Cutter: Benigno Prakash MD Lymphocytes (Bld) [#/Vol] 1.30 10*3/uL Normal 1.0-4.8 [facility] Comment on above: Performed By: #### B TRAVIS PRESTON, TROPI #### [facility] [address] [place] [address] Spread Cutter: Benigno Prakash MD Lymphocytes/100 WBC (Bld) 35 % Normal 13-44 [facility] Comment on above: Performed By: #### B TRAVIS PRESTON, TROPI #### [facility] [address] [place], [place] [id number] Spread Cutter: Benigno Prakash MD Monocytes (Bld) [#/Vol] 0.30 10*3/uL Normal 0.0-1.0 [facility] Comment on above: Performed By: #### B MOHAN CDP, TROPI #### [facility] [address] [place], [place] [phone] Spread Cutter: Benigno Prakash MD Monocytes/100 WBC (Bld) 8 % Normal 5-9 [facility] Comment on above: Performed By: #### B MP CDP, TROPI #### [facility] [address] [place], [place] [phone] Spread Cutter: Benigno Prakash MD Morphology Cale (Bld) [Interp] MODERATE Normal [facility] Comment on above: Result Comment: ANIS OCYTOSIS Manual Differential Performed Performed By: #### B MP, CDP, TROPI #### [facility] [address] [place], [place] [id number] Spread Cutter: Benigno Prakash MD Neutrophil (Seg) 57 % Normal 39-[address] [facility] Comment on above: Performed By: #### B MOHAN CDP, TROPI #### [facility] [address] [place], [place] [id number] Spread Cutter: Benigno Prakash MD Erythrocyte distribution width (RBC) [Ratio] 20.1 % High 12.1-15.2 [facility] Comment on above: Performed By: #### B TRAVIS PRESTON, TROPI #### [facility] [address] [place], [place] [phone] Spread Cutter: Benigno Prakash MD Hematocrit (Bld) [Volume fraction] 45.3 % Normal 41-53 [facility] Comment on above: Performed By: #### B TRAVIS PRESTON, TROPI #### [facility] [address] [place], [place] [id number] Spread Cutter: Benigno Prakash MD Hemoglobin (Bld) [Mass/Vol] 15.0 g/dL Normal 13.5-17.5 [facility] Comment on above: Performed By: #### B MP, CDP, TROPI #### [facility] [address] [place], [place] [id number] Spread Cutter: Benigno Prakash MD MCH (RBC) [Entitic mass] 28.3 pg Normal 26-34 [facility] Comment on above: Performed By: #### B TRAVIS PRESTON, TROPI #### [facility] [address] [place], [place] [phone] ([phone]) Spread Cutter: Benigno Prakash MD MCHC (RBC) [Mass/Vol] 33.0 g/dL Normal 31-37 [facility] Comment on above: Performed By: #### B TRAVIS PRESTON, TROPI #### [facility] [address] [place], [place] [phone] ([phone] Spread Cutter: Benigno Prakash MD MCV (RBC) [Entitic vol] 85.6 fL Normal 80-100 [facility] Comment on above: Performed By: #### B TRAVIS PRESTON, TROPI #### [facility] [address] [place], [place] [phone] (021) Spread Cutter: Benigno Prakash MD Platelets (Bld) [#/Vol] 180 10*3/uL Normal 140-450 [facility] Comment on above: Performed By: #### B TRAVIS PRESTON, TROPI #### [facility] [address] [place], [place] [phone] ([phone] Spread Cutter: Benigno Prakash MD RBC (Bld) [#/Vol] 5.30 10*6/uL Normal 4.5-5.9 [facility] Comment on above: Performed By: #### B TRAVIS PRESTON, TROPI #### [facility] [address] [place] [address] Spread Cutter: Benigno Prakash MD WBC (Bld) [#/Vol] 3.7 10*3/uL Normal 3.5-11.0 [facility] Comment on above: Performed By: #### B TRAVIS PRESTON, TROPI #### [facility] [address] [place], [place] [phone] ([phone] Spread Cutter: Benigno Prakash MD COVID-19, Nasir 01-20-2023 Interpretation and review of laboratory results Abnormal [facility] SARS-CoV-2 (COVID-19) RdRp gene IGOR+probe Ql (Resp) Detected Abnormal Not Detected [facility] Comment on above: Rapid NAAT: The specimen [...] this assay. Fact sheet for Healthcare Providers: https://www.fda.gov/media/733601/download Fact sheet for Patients: https://www.fda.gov/media/359177/download Methodology: Isothermal Nucleic Acid Amplification Results reported to the appropriate Health Department Specimen Description .NASOPHARYNGEAL SWAB [facility] [id number] 01-20-2023 SARS-CoV-2 (COVID-19) RNA IGOR+probe Ql (Unsp spec) Detected Abnormal NOTDET [facility] Comment on above: Result Comment: Rapid NAAT: [...] this assay. Fact sheet for Healthcare Providers: https://www.fda.gov/media/905984/download Fact sheet for Patients: https://www.fda.gov/media/500114/download Methodology: Isothermal Nucleic Acid Amplification Results reported to the appropriate Health Department Performed By: #### C OVRB ####[facility] [id number] [place] [address] Lab Director: Benigno Prakash MD Troponinon 01-20-2023 Troponin, High Sens 14 ng/L Normal 0-22 [facility] Comment on above: Result Comment: High Sensitivity Troponin values cannot be compared with other Troponin methodologies. Performed By: #### B MP, CDP, TROPI #### [facility] [address] [place] [address] Spread Cutter: Benigno Prakash MD Troponin I.cardiac High sensitivity method [Mass/Vol] 14 ng/L 0 - 22 ng/L [facility] Comment on above: High Sensitivity Tro ponin values cannot be compared with other Troponin methodologies. [facility] XR CHEST PORTABLEon 01-21-20 XR CHEST PORTABLE [...] Vijay Gutierres MD 01/20/23 Final result Normal [facility] 1. No acute cardiopulmonary findings. 2. Multiple nonacute left lateral rib fractures. [facility] EXAM: XR CHEST PORTABLE HISTORY: cough . Dyspnea. Left-sided chest pain. COMPARISON: Chest x-ray, 11/28/2022. TECHNIQUE: Frontal chest x-ray. FINDINGS: Sternotomy wires are unchanged. The heart, mediastinum and pulmonary vascularity are within normal limits. The lungs and pleural spaces are clear. Multiple nonacute left lateral rib fractures are noted. [facility] Vijay Gutierres MD - 01/20/2023 EXAM: [...] 2. Multiple nonacute left lateral rib fractures. [facility] Radiology Study observation (narrative) [facility] XR CHEST PORTABLEOrdered By: Vijay Gutierres on 01-20-2023 [facility] [employer] Work Phone: Physician Referralon 023 Physician Referral [id number] 02 [id number]. [id number]:127 Normal [facility] Ambulatory Visit Summaryon 0 01-11-2023 Ambulatory Visit Summary MARYSE MAK :1955 Visit Date:01/11/2023 Ambulatory Visit Instructions Your Diagnosis CAD in [place] artery Hx of myocardial infarction HTN (hypertension) [...] EC Tab) fluticasone nasal (Flonase 0.05 mg/inh [place]) Discharge Vitals Heart Rate (Peripheral) 63 Blood Pressure 104/68 Height 183 cm Height 72 in Weight 106.2 kg Weight 233.64 lb BMI 31.71 What to do next Scheduled Follow-Up Appointments Wednesday 2:00 PM EDT With: Where: [facility] [address] [place] [address]- \.br\ You Need to Schedule the Following Appointments\ .br\ Follow Up with Paulette CARBALLO CNP When: In 6 months\.br\ Where:\.br\ [address] [facility]\.br\ [place] [address]-\.br\ \.br\ Medications\. br\ What How Much When Why Instructions\ .br\ Changed sildenafil (Viagra 100 mg Tab) 1 Tablets By Mouth Every day as needed for for erectile dysfunction Pickup at [facility] #[id number]\.br\ Unchanged gabapentin (gabapentin 800 mg Tab) 1 Tablets By Mouth 3 times a day Lumbar spondylitis 30 day supply Pickup at [facility] #[id number]\.br\ Unchanged lisinopril (lisinopril 30 mg Tab) 1 Tablets By Mouth Every day Pickup at [facility] #[id number]\.br\ Unchanged tamsulosin (tamsulosin 0.4 mg Cap) 1 Capsules By Mouth Every day Pickup at [facility] #[id number]\.br\ Unchanged aspirin (aspirin 81 mg Oral EC Tab) 1 Tablets By Mouth Every day Contact prescribing physician if questions or concerns \.br\ Unchanged fluticasone nasal (Flonase 0.05 mg/ inh [place]) 1 Sprays Nasal Inhalation 2 times a day each nostril Contact prescribing physician if questions or concerns \.br\ Pharmacy Information\. br\ [facility] #[id number]: [address], [place] [id number] [phone]\.br\ Allergies\.br \ No Known Allergies\.br \ Problems\.br\ Ongoing - Any problem that you are currently receiving treatment for.\.br\ BPH without urinary obstruction\. br\ CAD in [place] artery\.br\ COPD mixed type\.br\ Erectile dysfunction\. br\ Former smoker\.br\ History of alcoholism\.b r\ History of lumbar fusion\.br\ History of substance abuse\.br\ HTN (hypertension )\.br\ Hx of myocardial infarction\.b r\ Lumbar spondylitis\. 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 Their support is important.\.b r\ ? \.br\ Talk with your doctor about the choices that may help you quit.\.br\ ? \.br\ Find out if your health insurance will pay for these treatments.\. br\ ? \.br\ Know the people, places, things, and activities that make you want to smoke (triggers). Avoid them.\.br\ What first steps can I take to quit smoking?\.br\ ? \.br\ Throw away all cigarettes at home, at work, and in your car.\.br\ ? \.br\ Throw away the things that you use when you smoke, such as ashtrays and lighters.\.br \ ? \.br\ Clean your car. Empty the ashtray.\.br\ ? \.br\ Clean your home, including curtains and carpets.\.br\ What can I do to help me quit smoking?\.br\ Talk with your doctor about taking medicines and seeing a counselor. You are more likely to succeed when you do both.\.br\ If you are or :\.br\ ? \.br\ Talk with your doctor about [...] away may be more successful than slowly quitting.\.br \ ? \.br\ Go to counseling. In-person is best if this is an option. You are more likely to quit if you go to counseling sessions regularly.\.b r\ Take medicine\.br\ You may take medicines to help you quit. Some medicines need a prescription, and some you can buy owzt-bjt-fiie ter. Some medicines may contain a drug called nicotine to replace the nicotine in cigarettes. Medicines may:\.br\ ? \.br\ Help you stop having the desire to smoke (cravings).\. br\ ? \.br\ Help to stop the problems that come when you stop smoking (withdrawal symptoms).\.b r\ Your doctor may ask you to use:\.br\ ? \.br\ Nicotine patches, gum, or lozenges.\.br \ ? \.br\ Nicotine inhalers or sprays.\.br\ ? \.br\ Non-nicotine medicine that you take by mouth.\.br\ Find resources\.br \ \.br\ Find resources and other ways to help you quit smoking and remain smoke-free after you quit. They include:\.br\ ? \.br\ Online chats with a counselor.\.b r\ ? \.br\ Phone quitlines.\.b r\ ? \.br\ Printed self-help materials.\.b r\ ? \.br\ Support groups or group counseling.\. br\ ? \.br\ Text messaging programs.\.br \ ? \.br\ Mobile phone apps. Use apps on your mobile phone or tablet that can help you stick to your quit plan. Examples of free services include Quit Guide from the CDC and smokefree.gov \.br\ What can I do to make it easier to quit?\.br\ \.br\ ? \.br\ Talk to your family and friends. Ask them to support and encourage you.\.br\ ? \.br\ Call a phone quitline, such as 6-732-OAUE-NO W, reach out to support groups, or work with a counselor.\.b r\ ? \.br\ Ask people who smoke to [...] to lower stress:\.br\ ? \.br\ Getting regular exercise.\.br \ ? \.br\ Doing deep-breathin g exercises.\.b r\ ? \.br\ Doing yoga.\.br\ ? \.br\ Meditating.\. br\ What benefits will I see if I quit smoking?\.br\ Over time, you may have:\.br\ ? \.br\ A better sense of smell and taste.\.br\ ? \.br\ Less coughing and sore throat.\.br\ ? \.br\ A slower heart rate.\.br\ ? \.br\ Lower blood pressure.\.br \ ? \.br\ Clearer skin.\.br\ ? \.br\ Better breathing.\.b r\ ? \.br\ Fewer sick days.\.br\ Summary\.br\ ? [...] get help and support to keep you smoke-free.\. br\ This information is not intended to replace advice given to you by your health care provider. Make sure you discuss any questions you have with your health care provider.\.br \ Document Revised: 04/24/2022 Document Reviewed: 04/24/2022 Elsevier Patient Education ? 2022 [employer] [facility] Medicine Office/Clini c Noteon 01-11-2023 Family Medicine [...] like to have labs done in the [place] office. The standard range for ages 18 [...] He is compliant with his lisinopril. 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 He went to [facility]. He was given Tramadol. He was told that his 5 ribs that were broken have not healed yet. He was also told that he pulled a muscle that was going around the bone. He almost ran out of Tramadol. He started feeling better. He has had good days and bad days. He went to his refresh technician and he was told that he needs [...] cough until 6 months. He saw a diagnostic technologist and was given a nasal spray, and [...] mood and affect. Assessment/Plan 1. CAD in [place] artery (I25.10: Atherosclerotic heart disease of [place] coronary artery without angina pectoris) He underwent CABG in 11/2021 with a couple of sternal fixations afterwards from a complication of sternal fracture that was causing pain. He refuses to return to [facility] to the refresh technician. He was not satisfied with them. He now lives in [place] and would like to stay local to (more content not included)... [facility] Comment on above: Result Comment: Elec tronically Signed By: Paulette CARBALLO CNP\.br\Date and Time Signed: 01/11/23 13:19 EDT\.br\Electronically Co-Signed By: Javier Ramirez\.br\Date and Time Co-Signed: 01/11/23 13:02 EDT Medication Consenton 023 Medication Consent [id number] 02 [id number]#1.00 CD:127 [facility] Patient Educationon 01-12-20 23 Patient Education [...] food choices, such as grocery stores and [employer]. What are the signs or symptoms? The [...] How much exercise you get. ? Take [id number] and prescription medicines only as told by [...] with yo (more content not included)... Normal [facility] APTTon 11-28-2022 aPTT Coag (Bld) [Time] 24.0 s Normal 23.9-33.8 [facility] Comment on above: Result Comment: IV Heparin Therapy Range: 62.0-94.0 Performed By: #### D JAMARI, CDP, PT, PTT, BNP, TROPI, BMPX ####[facility] [id number] [place] [address] lab Director: Benigno Prakash MD Basic Metab w/rfx MGon 11-28 Anion gap [Moles/Vol] 10 mmol/L Normal 9-17 [facility] Comment on above: Performed By: #### D JAMARI, CDP, PT, PTT, BNP, TROPI, BMPX ####[facility] [id number] [place] [address] Lab Director: Benigno Prakash MD BUN/CRE Ratio 17 Normal 9-20 [facility] Comment on above: Performed By: #### D JAMARI, CDP, PT, PTT, BNP, TROPI, BMPX ####[facility] [id number] [place] [address] Lab Director: Benigno Prakash MD Calcium [Mass/Vol] 8.6 mg/dL Normal 8.6-10.4 [facility] Comment on above: Performed By: #### D JAMARI, CDP, PT, PTT, BNP, TROPI, BMPX ####[facility] [id number] [facility] [place] [address] Lab Director: Benigno Prakash MD Chloride [Moles/Vol] 104 mmol/L Normal 98-107 [facility] Comment on above: Performed By: #### D JAMARI, CDP, PT, PTT, BNP, TROPI, BMPX ####[facility] [id number] [place] [address] Lab Director: Benigno Prakash MD CO2 [Moles/Vol] 24 mmol/L Normal 20-31 [facility] Comment on above: Performed By: #### D JAMARI, CDP, PT, PTT, BNP, TROPI, BMPX ####[facility] [id number] [facility] [place] [address] Lab Director: Benigno Prakash MD Creatinine [Mass/Vol] 0.9 mg/dL Normal 0.7-1.2 [facility] Comment on above: Performed By: #### D JAMARI, CDP, PT, PTT, BNP, TROPI, BMPX ####[facility] [id number] [place] [address] Lab Director: Benigno Prakash MD GFR/1.73 sq M.predicted among non-blacks MDRD (S/P/Bld) [Vol rate/Area] mL/min/{1.73_m2} Normal >60 [facility] Comment on above: Result Comment: These results [...] JAMARI, CDP, PT, PTT, BNP, TROPI, BMPX ####[facility] [id number] [place] [address] Lab Director: Benigno Prakash MD Glucose [Mass/Vol] 96 mg/dL Normal 70-99 [facility] Comment on above: Performed By: #### D JAMARI, CDP, PT, PTT, BNP, TROPI, BMPX ####[facility] [id number] [place] [address] lab Director: Benigno Prakash MD Potassium [Moles/Vol] 4.3 mmol/L Normal 3.7-5.3 [facility] Comment on above: Performed By: #### D JAMARI, CDP, PT, PTT, BNP, TROPI, BMPX ####[facility] [id number] [place] [address] Lab Director: Benigno Prakash MD Sodium [Moles/Vol] 138 mmol/L Normal 135-144 [facility] Comment on above: Performed By: #### D JAMARI, CDP, PT, PTT, BNP, TROPI, BMPX ####[facility] [id number] [place] [address] Lab Director: Benigno rPakash MD Urea nitrogen [Mass/Vol] 15 mg/dL Normal 8-23 [facility] Comment on above: Performed By: #### D JAMARI, CDP, PT, PTT, BNP, TROPI, BMPX ####[facility] [id number] [place] [address] lab Director: Benigno Prakash MD Brain Natri. Peptideon 11-28 Pro-BNP <36 Normal <300 [facility] Comment on above: Result Comment: An age-independent cutoff point of 300 pg/ml has a 98% negative predictive value excluding acute heart failure. Performed By: #### D JAMARI, CDP, PT, PTT, BNP, TROPI, BMPX ####[facility] [id number] [place] [address] lab Director: Benigno Prakash MD CBC with Diffon 11-28-2022 Abs. Basophil 0.10 k/uL Normal 0.0-0.2 [facility] Comment on above: Performed By: #### D JAMARI, CDP, PT, PTT, BNP, TROPI, BMPX ####[facility] [id number] [place] [address] lab Director: Benigno Prakash MD Abs.Neutrophil (Seg) 7.90 k/uL High 2.1-6.5 [facility] Comment on above: Performed By: #### D JAMARI, CDP, PT, PTT, BNP, TROPI, BMPX ####[facility] [id number] [place] [address] lab Director: Benigno Prakash MD Auto Diff Performed YES Normal [facility] Comment on above: Performed By: #### D JAMARI, CDP, PT, PTT, BNP, TROPI, BMPX ####[facility] [id number] [place] [address] lab Director: Benigno Prakash MD Basophils/100 WBC (Bld) 1 % Normal 0-2 [facility] Comment on above: Performed By: #### D JAMARI, CDP, PT, PTT, BNP, TROPI, BMPX ####[facility] [id number] [place], [place] [id number] Lab Director: Benigno Prakash MD Eosinophils (Bld) [#/Vol] 0.20 10*3/uL Normal 0.0-0.4 [facility] Comment on above: Performed By: #### D JAMARI, CDP, PT, PTT, BNP, TROPI, BMPX ####[facility] [id number] [place] [address] Lab Director: Benigno Prakash MD Eosinophils/100 WBC (Bld) 2 % Normal 0-5 [facility] Comment on above: Performed By: #### D JAMARI, CDP, PT, PTT, BNP, TROPI, BMPX ####[facility] [id number] [place] [address] Lab Director: Benigno Prakash MD Erythrocyte distribution width (RBC) [Ratio] 18.7 % High 12.1-15.2 [facility] Comment on above: Performed By: #### D JAMARI, CDP, PT, PTT, BNP, TROPI, BMPX ####[facility] [id number] [place] [address] Lab Director: Benigno Prakash MD Hematocrit (Bld) [Volume fraction] 45.1 % Normal 41-53 [facility] Comment on above: Performed By: #### D JAMARI, CDP, PT, PTT, BNP, TROPI, BMPX ####[facility] [id number] [place] [address] Lab Director: Benigno Prakash MD Hemoglobin (Bld) [Mass/Vol] 14.7 g/dL Normal 13.5-17.5 [facility] Comment on above: Performed By: #### D JAMARI, CDP, PT, PTT, BNP, TROPI, BMPX ####[facility] [id number] [facility] [place] [address] Lab Director: Benigno Prakash MD Lymphocytes (Bld) [#/Vol] 2.30 10*3/uL Normal 1.0-4.8 [facility] Comment on above: Performed By: #### D JAMARI, CDP, PT, PTT, BNP, TROPI, BMPX ####[facility] [id number] [facility], [place] [phone] Director: Benigno Prakash MD Lymphocytes/100 WBC (Bld) 21 % Normal 13-44 [facility] Comment on above: Performed By: #### D JAMARI, CDP, PT, PTT, BNP, TROPI, BMPX ####[facility] [id number] [facility] [place] [address] Lab Director: Benigno Prakash MD MCH (RBC) [Entitic mass] 27.1 pg Normal 26-34 [facility] Comment on above: Performed By: #### D JAMARI, CDP, PT, PTT, BNP, TROPI, BMPX ####[facility] [id number] [facility] [place] [address] Lab Director: Benigno Prakash MD MCHC (RBC) [Mass/Vol] 32.6 g/dL Normal 31-37 [facility] Comment on above: Performed By: #### D JAMARI, CDP, PT, PTT, BNP, TROPI, BMPX ####[facility] [id number] [facility] [place] [address] Lab Director: Benigno Prakash MD MCV (RBC) [Entitic vol] 83.2 fL Normal 80-100 [facility] Comment on above: Performed By: #### D JAMARI, CDP, PT, PTT, BNP, TROPI, BMPX ####[facility] [id number] [facility] [place] [address] Lab Director: Benigno Prakash MD Monocytes (Bld) [#/Vol] 0.60 10*3/uL Normal 0.0-1.0 [facility] Comment on above: Performed By: #### D JAMARI, CDP, PT, PTT, BNP, TROPI, BMPX ####[facility] [id number] [place] [place] [address] Lab Director: Benigno Prakash MD Monocytes/100 WBC (Bld) 6 % Normal 5-9 [facility] Comment on above: Performed By: #### D JAMARI, CDP, PT, PTT, BNP, TROPI, BMPX ####[facility] [id number] [facility] [place] [address] Lab Director: Benigno Prakash MD Neutrophil (Seg) 70 % Normal 39-[address] [facility] Comment on above: Performed By: #### D JAMARI, CDP, PT, PTT, BNP, TROPI, BMPX ####[facility] [id number] [place] [address] Lab Director: Benigno Prakash MD Platelets (Bld) [#/Vol] 254 10*3/uL Normal 140-450 [facility] Comment on above: Performed By: #### D JAMARI, CDP, PT, PTT, BNP, TROPI, BMPX ####[facility] [id number] [place] [address] Lab Director: Benigno Prakash MD RBC (Bld) [#/Vol] 5.42 10*6/uL Normal 4.5-5.9 [facility] Comment on above: Performed By: #### D JAMARI, CDP, PT, PTT, BNP, TROPI, BMPX ####[facility] [id number] [facility] [place] [address] Lab Director: Benigno Prakash MD WBC (Bld) [#/Vol] 11.1 10*3/uL High 3.5-11.0 [facility] Comment on above: Performed By: #### D JAMARI, CDP, PT, PTT, BNP, TROPI, BMPX ####[facility] [id number] [place], [place] [id number] Lab Director: Benigno Prakash MD Diff Methodon 11-28-2022 Diff Method AUTO Normal [facility] Comment on above: Performed By: #### D JAMARI, CDP, PT, PTT, BNP, TROPI, BMPX ####[facility] [id number] [place], [place] [id number] Lab Director: Benigno Prakash MD PTon 11-28-2022 INR Coag (PPP) [Relative time] 0.9 {INR} Normal [facility] Comment on above: Result Comment: Therapeutic Range: Moderate Anticoagulant Intensity: INR = 2.0-3.0 High Anticoagulant Intensity: INR = 2.5-3.5 Performed By: #### D JAMARI, CDP, PT, PTT, BNP, TROPI, BMPX ####[facility] [id number] [place], [place] [id number] Lab Director: Benigno Prakash MD PT Coag (PPP) [Time] 12.3 s Normal 11.5-14.2 [facility] Comment on above: Performed By: #### D JAMARI, CDP, PT, PTT, BNP, TROPI, BMPX ####[facility] [id number] [place] [address] Lab Director: Benigno Prakash MD Troponinon 11-28-2022 Troponin, High Sens 19 ng/L Normal 0-22 [facility] Comment on above: Result Comment: High Sensitivity Troponin values cannot be compared with other Troponin methodologies. Performed By: #### T ROPI #### [facility] [address] [place], [place] [id number] Spread Cutter: Benigno Prakash MD Troponin, High Sens 18 ng/L Normal 0-22 [facility] Comment on above: Result Comment: High Sensitivity Troponin values cannot be compared with other Troponin methodologies. Performed By: #### D JAMARI, CDP, PT, PTT, BNP, TROPI, BMPX ####[facility] [id number] [place] [address] lab Director: Benigno Prakash MD XR CHEST [...] Benigno Fry MD 11/28/22 Final result Normal [facility] Basic metabolic 2000 panelon 08-31-2022 Anion gap [Moles/Vol] 3 mmol/L Low 10 - 2 0 mmol/L [facility] Calcium [Mass/Vol] 9.0 mg/dL 8.4 - 10. 2 mg/dL [facility] Chloride [Moles/Vol] 112 mmol/L High 98 - 10 8 mmol/L [facility] Creatinine [Mass/Vol] 1.04 mg/dL 0.80 - 1.30 mg/dL [facility] GFR/1.73 sq M.predicted CKD-EPI (S/P/Bld) [Vol rate/Area] 80 - PINF [facility] Comment on above: Estimated GFR was ca lculated using the 2020 CKD-EPI creatinine equation. Glucose [Mass/Vol] 120 mg/dL High 65 - 99 mg/dL [facility] HCO3 [Moles/Vol] 29 mmol/L 21 - 32 mmol/L [facility] Interpretation and review of laboratory results Abnormal [facility] Potassium [Moles/Vol] 4.2 mmol/L 3.5 - 5.1 mmol/L [facility] Sodium [Moles/Vol] 140 mmol/L 135 - 145 mmol/L [facility] Urea nitrogen [Mass/Vol] 9 mg/dL 8 - 25 mg/dL [facility] Urea nitrogen/Creatinine [Mass ratio] 8.7 mg/mg Low 10.0 - 20.0 [facility] Labor[facility] y Services has implemented the eGFR calculation approach that does not have a coefficient for race that conforms to the NKF-ASN Task Force Recommendations. [facility] XR Chest AP/PA and LATon 1. Stable appearance of cerclage wires and screw-plate fixators in the sternum. Hardware is grossly intact. 2. No acute process is identified in the chest. [facility]/cdr Workstation ID: [id number] the grafter RIS EXAMINATION: XR CHEST AP/PA AND LAT [...] changes again seen throughout the dorsal spine. [facility] William Gonzalez MD - 08/18/2022 EXAMINATION: XR CHEST AP/PA [...] in the chest. [facility]/cdr Workstation ID: [id number] [facility] Radiology Study observation (narrative) [facility] XR Chest AP/PA and LATOrdere d By: William Gonzalez on 08-18-2022 [facility] Work Phone: TEG Platelet Mapping (Kassy santana)on 08-03-2022 (AA-%Aggregation) AA Percent Aggregation 92.4 % 89.0 - 100.0 % [facility] (AA-%Inhibition) AA Percent Inhibition 7.6 % 0.0 - 11.0 % [facility] (ADP-% Aggregation) ADP Percent Aggregation 77.8 % Low 83.0 - 100.0 % [facility] (ADP-%Inhibition) ADP PERCENT INHIBITION 22.2 % High 0.0 - 17.0 % [facility] Interpretation and review of laboratory results Abnormal [facility] Maximum amplitude AA induced Resonance TEG (Bld) [Length] 56.8 mm 51.0 - 71.0 mm [facility] Maximum amplitude activator F induced Resonance TEG (Bld) [Length] 8.5 mm 2.0 - 19.0 mm [facility] Maximum amplitude ADP induced Resonance TEG (Bld) [Length] 49.2 mm 45.0 - 69.0 mm [facility] Maximum amplitude kaolin induced after addition of heparinase Resonance TEG (Bld) [Length] 60.8 mm 53.0 - 68.0 mm [facility] CBCon 07-07-2022 ABSOLUTE BAS 0.1 10*3/uL Normal 0.0-0.2 [facility] Comment on above: Performed By: #### C CHRISTINE PERALTA #### Testing performed at [facility] [address] [place] [address] ABSOLUTE EOS 0.3 10*3/uL Normal 0.0-0.7 [facility] Comment on above: Performed By: #### C MPF, ACBC #### Testing performed at [address] [place] [address] ABSOLUTE NEUTROPHIL COUNT 6.7 10*3/uL High 1.4-6.5 [facility] Comment on above: Performed By: #### C MPF, ACBC #### Testing performed at [address] [place] [address] Basophils/100 WBC (Bld) 0.6 % Normal 0.0-2.0 [facility] Comment on above: Performed By: #### C MPF, ACBC #### Testing performed at [address] [place] [address] DTYPE AUTO DIFF Normal [facility] Comment on above: Performed By: #### C MPF, ACBC #### Testing performed at [address] [place] [address] Eosinophils/100 WBC (Bld) 2.6 % Normal 0.0-11.0 [facility] Comment on above: Performed By: #### C MPF, ACBC #### Testing performed at [address] [place] [address] Lymphocytes (Bld) [#/Vol] 2.6 10*3/uL Normal 1.2-3.4 [facility] Comment on above: Performed By: #### C MPF, ACBC #### Testing performed at [address] [place] [address] Lymphocytes/100 WBC (Bld) 24.9 % Normal 20.0-55.0 [facility] Comment on above: Performed By: #### C MPF, ACBC #### Testing performed at [address] [place] [address] Monocytes (Bld) [#/Vol] 0.9 10*3/uL High 0.0-0.7 [facility] Comment on above: Performed By: #### C MPF, ACBC #### Testing performed at [address] [place] [address] Monocytes/100 WBC (Bld) 8.8 % Normal 0.0-10.0 [facility] Comment on above: Performed By: #### C MPF, ACBC #### Testing performed at [address] [place] [address] Neutrophils/100 WBC (Bld) 63.1 % Normal 37.0-75.0 [facility] Comment on above: Performed By: #### C MPF, ACBC #### Testing performed at [address] [place] [address] Erythrocyte distribution width (RBC) [Ratio] 16.5 % High 11.5-14.5 [facility] Comment on above: Performed By: #### C MPF, ACBC #### Testing performed at [address] [place] [address] Hematocrit (Bld) [Volume fraction] 44.7 % Normal 42.0-52.0 [facility] Comment on above: Performed By: #### C MPF, ACBC #### Testing performed at [address] [place] [address] Hemoglobin (Bld) [Mass/Vol] 14.6 g/dL Normal 14.0-18.0 [facility] Comment on above: Performed By: #### C MPF, ACBC #### Testing performed at [address] [place] [address] MCH (RBC) [Entitic mass] 28.6 pg Normal 26.0-35.0 [facility] Comment on above: Performed By: #### C MPF, ACBC #### Testing performed at [address] [place] [address] MCHC (RBC) [Mass/Vol] 32.7 g/dL Normal 27.0-37.0 [facility] Comment on above: Performed By: #### C MPF, ACBC #### Testing performed at [address] [place] [address] MCV (RBC) [Entitic vol] 87.5 fL Normal 80.0-100.0 [facility] Comment on above: Performed By: #### C MPF, ACBC #### Testing performed at [address] [place] [address] Platelet mean volume (Bld) [Entitic vol] 8.6 fL Normal 7.4-11.0 [facility] Comment on above: Performed By: #### C MPF, ACBC #### Testing performed at [address] [address] Platelets (Bld) [#/Vol] 198 10*3/uL Normal 130.0-400.0 [facility] Comment on above: Performed By: #### C MPF, ACBC #### Testing performed at [address] [address] RBC (Bld) [#/Vol] 5.11 10*6/uL Normal 4.0-6.1 [facility] Comment on above: Performed By: #### C MPF, ACBC #### Testing performed at [address] [address] WBC (Bld) [#/Vol] 10.6 10*3/uL Normal 3.6-11.0 [facility] Comment on above: Performed By: #### C MPF, ACBC #### Testing performed at [address] [address] CBC, EDIF, PLATELETon 2022 ABSOLUTE BASOPHIL COUNT 0.1 10*3/uL 0.0 - 0.2 10*3/uL [facility] Basophils/100 WBC (Bld) 0.6 % 0.0 - 2.0 % [facility] Differential cell count method Nom (Bld) AUTO DIFF % [facility] Eosinophils (Bld) [#/Vol] 0.3 10*3/uL 0.0 - 0.7 10*3/uL [facility] Eosinophils/100 WBC (Bld) 2.6 % 0.0 - 11.0 % [facility] Erythrocyte distribution width (RBC) [Ratio] 16.5 % High 11.5 - 14.5 % [facility] Hematocrit (Bld) [Volume fraction] 44.7 % 42.0 - 52.0 % [facility] Hemoglobin (Bld) [Mass/Vol] 14.6 g/dL [facility] Interpretation and review of laboratory results Abnormal [facility] Lymphocytes (Bld) [#/Vol] 2.6 10*3/uL 1.2 - 3.4 10*3/uL [facility] Lymphocytes/100 WBC (Bld) 24.9 % 20.0 - 55.0 % [facility] MCH (RBC) [Entitic mass] 28.6 pg 26.0 - 35.0 PG [facility] MCHC (RBC) [Mass/Vol] 32.7 g/dL [facility] MCV (RBC) [Entitic vol] 87.5 fL [facility] Monocytes (Bld) [#/Vol] 0.9 10*3/uL High 0.0 - 0.7 10*3/uL [facility] Monocytes/100 WBC (Bld) 8.8 % 0.0 - 10.0 % [facility] Neutrophils (Bld) [#/Vol] 6.7 10*3/uL High 1.4 - 6.5 10*3/uL [facility] Neutrophils/100 WBC (Bld) 63.1 % 37.0 - 75.0 % [facility] Platelet mean volume (Bld) [Entitic vol] 8.6 fL [facility] Platelets (Bld) [#/Vol] 198 10*3/uL 130.0 - 400.0 10*3/uL [facility] RBC (Bld) [#/Vol] 5.11 10*6/uL 4.0 - 6.1 10*6/uL [facility] WBC (Bld) [#/Vol] 10.6 10*3/uL 3.6 - 11.0 10*3/uL [facility] CMP FASTINGon 07-07-2022 A:G RATIO 1.3 RATIO Normal 1.3-2.2 [facility] Comment on above: Performed By: #### C MPF, ACBC #### Testing performed at [address] [address] ALBUMIN 3.5 G/dl Normal 3.5-5.0 [facility] Comment on above: Performed By: #### C MPF, ACBC #### Testing performed at [address] [address] ALP [Catalytic activity/Vol] 75 U/L Normal 38-126 [facility] Comment on above: Performed By: #### C MPF, ACBC #### Testing performed at [facility] [address] [place] [address] ALT [Catalytic activity/Vol] 22 U/L Normal 17-63 [facility] Comment on above: Performed By: #### C MPF, ACBC #### Testing performed at [address] [address] AST [Catalytic activity/Vol] 19 U/L Normal 15-41 [facility] Comment on above: Performed By: #### C MPF, ACBC #### Testing performed at [address] [address] Bilirubin [Mass/Vol] 0.4 mg/dL Normal 0.2-1.2 [facility] Comment on above: Performed By: #### C MPF, ACBC #### Testing performed at [address] [address] Calcium [Mass/Vol] 8.5 mg/dL Normal 8.4-10.2 [facility] Comment on above: Performed By: #### C MPF, ACBC #### Testing performed at [address] [address] Chloride [Moles/Vol] 106 mmol/L Normal 98-107 [facility] Comment on above: Performed By: #### C MPF, ACBC #### Testing performed at [address] [address] CO2 [Moles/Vol] 26 mmol/L Normal 22-30 [facility] Comment on above: Performed By: #### C MPF, ACBC #### Testing performed at [address] [address] Creatinine [Mass/Vol] 1.04 mg/dL Normal 0.66-1.25 [facility] Comment on above: Performed By: #### C MPF, ACBC #### Testing performed at [address] [address] EST. GFR, 92 ml/min/1.73sq.m [facility] Comment on above: Performed By: #### C MPF, ACBC #### Testing performed at [address] [address] EST. GFR,Non 76 ml/min/1.73sq.m [facility] Comment on above: Performed By: #### C MPF, ACBC #### Testing performed at [address] [address] GFR Information Average GFR for 60-6 9 years old = 85. Normal [facility] Comment on above: Result Comment: [employer] Lieutenant altagracia Kidney disease, GFR = <60. Kidney failure, GFR = <15. The GFR estimate is not adjusted for extreme body surface area or acute process, nor has it been validated for women or ethnic groups other than and . Performed By: #### C MPF, ACBC #### Testing performed at [address] [address] Glucose [Mass/Vol] 103 mg/dL High 70-100 [facility] Comment on above: Result Comment: NORMAL <100 mg/dL PREDIABETES 101-126 mg/dL DIABETES 126 mg/dL or higher Performed By: #### C MPF, ACBC #### Testing performed at [address] [address] Potassium [Moles/Vol] 3.7 mmol/L Normal 3.5-5.1 [facility] Comment on above: Performed By: #### C MPF, ACBC #### Testing performed at [address] [address] Protein [Mass/Vol] 6.2 g/dL Low 6.3-8.2 [facility] Comment on above: Performed By: #### C MPF, ACBC #### Testing performed at [address] [address] Sodium [Moles/Vol] 139 mmol/L Normal 136-145 [facility] Comment on above: Performed By: #### C MPF, ACBC #### Testing performed at [address] [address] Urea nitrogen [Mass/Vol] 11 mg/dL Normal 7-20 [facility] Comment on above: Performed By: #### C MPF, ACBC #### Testing performed at [address] [address] COMPREHENSIVE METABOLIC PANE Rashel 07-07-2022 Albumin [Mass/Vol] 3.5 G/dl 3.5 - 5.0 G/dl [facility] Albumin/Globulin [Mass ratio] 1.3 {ratio} [facility] ALP [Catalytic activity/Vol] 75 U/L [facility] ALT [Catalytic activity/Vol] 22 U/L [facility] AST [Catalytic activity/Vol] 19 U/L [facility] Bilirubin [Mass/Vol] 0.4 mg/dL [facility] Calcium [Mass/Vol] 8.5 mg/dL [facility] Chloride [Moles/Vol] 106 mmol/L [facility] CO2 [Moles/Vol] 26 mmol/L [facility] Creatinine [Mass/Vol] 1.04 mg/dL [facility] GFR COMMENT Average GFR for 60-6 9 years old = 85. [facility] Comment on above: Chronic Kidney disea se, GFR = <60. Kidney failure, GFR = <15. The GFR estimate is not adjusted for extreme body surface area or acute process, nor has it been validated for women or ethnic groups other than and . GFR/1.73 sq M.predicted among blacks MDRD (S/P/Bld) [Vol rate/Area] 92 mL/min/{1.73_m2} ml/min/1.73sq .m [facility] GFR/1.73 sq M.predicted among non-blacks MDRD (S/P/Bld) [Vol rate/Area] 76 mL/min/{1.73_m2} ml/min/1.73sq .m [facility] Glucose post fast [Mass/Vol] 103 mg/dL High [facility] Comment on above: NORMAL <100 mg/dL PREDIABETES 101-126 mg/dL DIABETES 126 mg/dL or higher Interpretation and review of laboratory results Abnormal [facility] Potassium [Moles/Vol] 3.7 mmol/L [facility] Protein [Mass/Vol] 6.2 g/dL Low [facility] Sodium [Moles/Vol] 139 mmol/L [facility] Urea nitrogen [Mass/Vol] 11 mg/dL [facility] CT CHEST ABDOMEN PELVIS WITH CONTRASTon [...] acute fracture. Atherosclerotic disease as described. Normal [facility] CT Cervical spine WO contras ton 07-07-2022 [...] for an acute fracture or traumatic malalignment. [facility] Radiology Study observation (narrative) [facility] CT Cervical spine WO contras tOrdered By: Jonathan George on 07-07-2022 [facility] Work Phone: CT Chest and Abdomen and [...] no acute fracture. Atherosclerotic disease as described. [facility] Radiology Study observation (narrative) [facility] CT SPINE CERVICAL WITHOUT CO [...] an acute fracture or traumatic malalignment. Normal [facility] TROPONIN I, HIGH SENSITIVITY on 07-07-2022 TROPONIN I, HIGH SENSITIVITY 8 pg/mL Normal 0-20 [facility] Comment on above: Result Comment: Indeterminant: >12 to 100 pg/mL female >20 to 100 pg/mL male Indicative of myocardial injury. Serial sampling is recommended, a change of greater than or equal to 20 pg/mL is indicative of acute coronary syndrome. Performed By: #### T [facility] #### Testing performed at [facility] [address] [place] [address] TROPONIN I, HIGH SENSITIVITY 8 pg/mL 0 - 20 pg/mL [facility] Comment on above: Indeterminant: >12 to 100 pg/mL female >20 to 100 pg/mL male Indicative of myocardial injury. Serial sampling is recommended, a change of greater than or equal to 20 pg/mL is indicative of acute coronary syndrome. [facility] XR HIP RIGHT 2 VIEWSon [...] the right hip, similar to prior. Normal [facility] XR Hip - right 2 Viewson IMPRESSION: [...] of the right hip, similar to prior. [facility] Radiology Study observation (narrative) [facility] XR Hip - right 2 ViewsOrdere d By: Mariela Whittaker on 07-07-2022 [facility] Work Phone: XR KNEE RIGHT 3 VIEWSon 06-18 XR KNEE RIGHT 3 VIEWS EXAM: XR KNEE RIGH T 3 VIEWS HISTORY: Fall. COMPARISON: None. TECHNIQUE: [...] is recommended for more detailed evaluation. Normal [facility] XR Knee - right 3 Viewson IMPRESSION: [...] extremity is recommended for more detailed evaluation. [facility] Radiology Study observation (narrative) [facility] XR Knee - right 3 ViewsOrder ed By: Rafa Knowles on 07-07-2022 [facility] Work Phone: CT CHEST W WO CONTRASTon No acute cardiopulmonary process identified. Chronic changes as detailed above. This report has been created using voice recognition software. It may contain minor errors which are inherent in voice recognition technology. Final report electronically signed by Dr. Rolando Cuenca on 05/04/2022 4:06 PM [facility] RIS CONSOLIDATED Rolando Cuenca MD - 05/04/2022 PROCEDURE: CT CHEST W [...] Dr. Rolando Cuenca on 05/04/2022 4:06 PM [facility] Phone: Radiology Study observation (narrative) [facility] Phone: CT CHEST W WO CONTRASTOrdere d By: Rolando Cuenca on 05-04-2022 [employer] Phone: ANION GAPon 04-06-2022 Anion gap [Moles/Vol] 12.0 mmol/L Normal 8.0-16.0 [facility] Comment on above: Result Comment: ANIO N GAP = Sodium -(Chloride + CO2) Performed By: #### C BCWD, EGFR1, BMPX, OSMOL, NTBNP, ANION, TROPT #### [facility] [address] [place] [address] BASIC METABOL PANELon 2021 Calcium [Mass/Vol] 9.1 mg/dL Normal 8.5-10.5 [facility] Comment on above: Performed By: #### C BCWD, EGFR1, BMPX, OSMOL, NTBNP, ANION, TROPT #### [email or web address] [address] [place] [address] Chloride [Moles/Vol] 106 mmol/L Normal 98-111 [facility] Comment on above: Performed By: #### C BCWD, EGFR1, BMPX, OSMOL, NTBNP, ANION, TROPT #### [facility] [address] [place] [address] CO2 [Moles/Vol] 24 mmol/L Normal 23-33 [facility] Comment on above: Performed By: #### C BCWD, EGFR1, BMPX, OSMOL, NTBNP, ANION, TROPT #### [facility] [address] [place] [address] Creatinine [Mass/Vol] 1.0 mg/dL Normal 0.4-1.2 [facility] Comment on above: Performed By: #### C BCWD, EGFR1, BMPX, OSMOL, NTBNP, ANION, TROPT #### [facility] [employer] [address] [place] [address] Glucose [Mass/Vol] 125 mg/dL High 70-108 [facility] Comment on above: Performed By: #### C BCWD, EGFR1, BMPX, OSMOL, NTBNP, ANION, TROPT #### [facility] [employer] [address] [place] [address] POTASSIUM WITH REFLEX MG 4.8 meq/L Normal 3.5-5.2 [facility] Comment on above: Result Comment: Low level specimen hemolysis is present as indicated by the interference level index on the Flakito analyzer. The reported K+ level may be falsely increased. If clinically warranted, recollection of the specimen is suggested. Performed By: #### C BCWD, EGFR1, BMPX, OSMOL, NTBNP, ANION, TROPT #### [facility] [employer] [facility] [employer] [address] [place] [address] Sodium [Moles/Vol] 142 mmol/L Normal 135-145 [facility] Comment on above: Performed By: #### C BCWD, EGFR1, BMPX, OSMOL, NTBNP, ANION, TROPT #### [facility] [employer] [address] [place] [address] Urea nitrogen [Mass/Vol] 9 mg/dL Normal 7-22 [facility] Comment on above: Performed By: #### C BCWD, EGFR1, BMPX, OSMOL, NTBNP, ANION, TROPT #### [facility] [employer] [address] [place] [address] CALCULATED OSMOLALITYon 03-18 Osmolality [Osmolality] 283.3 mosm/kg Normal 275.0-300.0 [facility] Comment on above: Performed By: #### E TOHS, HEPPA, LIPAS #### [facility] [employer] [address] [place] [address] CBC WITH DIFFERENTIALon 03-18 ABS BASOPHILS 0.1 thou/mm3 Normal 0.0-0.1 [facility] Comment on above: Performed By: #### C BCWD, EGFR1, BMPX, OSMOL, NTBNP, ANION, TROPT #### [place] [address] ABS EOSINOPHILS 0.4 thou/mm3 Normal 0.0-0.4 [facility] Comment on above: Performed By: #### C BCWD, EGFR1, BMPX, OSMOL, NTBNP, ANION, TROPT #### [place] [address] ABS IMMATURE GRANS (IG) 0.16 thou/mm3 High 0.00-0.07 [facility] Comment on above: Performed By: #### C BCWD, EGFR1, BMPX, OSMOL, NTBNP, ANION, TROPT #### [place] [address] ABS LYMPHOCYTES 1.9 thou/mm3 Normal 1.0-4.8 [facility] Comment on above: Performed By: #### C BCWD, EGFR1, BMPX, OSMOL, NTBNP, ANION, TROPT #### [place] [address] ABS MONOCYTES 0.7 thou/mm3 Normal 0.4-1.3 [facility] Comment on above: Performed By: #### C BCWD, EGFR1, BMPX, OSMOL, NTBNP, ANION, TROPT #### [place] [address] ABS NEUTROPHILS 4.1 thou/mm3 Normal 1.8-7.7 [facility] Comment on above: Performed By: #### C BCWD, EGFR1, BMPX, OSMOL, NTBNP, ANION, TROPT #### [place] [address] Basophils/100 WBC (Bld) 1.1 % Normal [facility] Comment on above: Performed By: #### C BCWD, EGFR1, BMPX, OSMOL, NTBNP, ANION, TROPT #### [place] [address] Eosinophils/100 WBC (Bld) 6.0 % Normal [facility] Comment on above: Performed By: #### C BCWD, EGFR1, BMPX, OSMOL, NTBNP, ANION, TROPT #### [place] [address] Erythrocyte distribution width (RBC) [Ratio] 17.0 % High 11.5-14.5 [facility] Comment on above: Performed By: #### C BCWD, EGFR1, BMPX, OSMOL, NTBNP, ANION, TROPT #### [place] [address] Hematocrit (Bld) [Volume fraction] 45.9 % Normal 42.0-52.0 [facility] Comment on above: Performed By: #### C BCWD, EGFR1, BMPX, OSMOL, NTBNP, ANION, TROPT #### [place] [address] Hemoglobin (Bld) [Mass/Vol] 14.3 g/dL Normal 14.0-18.0 [facility] Comment on above: Performed By: #### C BCWD, EGFR1, BMPX, OSMOL, NTBNP, ANION, TROPT #### [place] [address] IMMATURE GRANS (IG) 2.2 % Normal [facility] Comment on above: Performed By: #### C BCWD, EGFR1, BMPX, OSMOL, NTBNP, ANION, TROPT #### [place] [address] Lymphocytes/100 WBC (Bld) 25.5 % Normal [facility] Comment on above: Performed By: #### C BCWD, EGFR1, BMPX, OSMOL, NTBNP, ANION, TROPT #### [place] [address] MCH (RBC) [Entitic mass] 26.6 pg Normal 26.0-33.0 [facility] Comment on above: Performed By: #### C BCWD, EGFR1, BMPX, OSMOL, NTBNP, ANION, TROPT #### [address] [address] MCHC (RBC) [Mass/Vol] 31.2 g/dL Low 32.2-35.5 [facility] Comment on above: Performed By: #### C BCWD, EGFR1, BMPX, OSMOL, NTBNP, ANION, TROPT #### [place] [address] MCV (RBC) [Entitic vol] 85.5 fL Normal 80.0-94.0 [facility] Comment on above: Performed By: #### C BCWD, EGFR1, BMPX, OSMOL, NTBNP, ANION, TROPT #### [place] [address] Monocytes/100 WBC (Bld) 9.7 % Normal [facility] Comment on above: Performed By: #### C BCWD, EGFR1, BMPX, OSMOL, NTBNP, ANION, TROPT #### [place] [address] Neutrophils/100 WBC (Bld) 55.5 % Normal [facility] Comment on above: Performed By: #### C BCWD, EGFR1, BMPX, OSMOL, NTBNP, ANION, TROPT #### [place] [address] NRBC 0 /100 wbc Normal [facility] Comment on above: Performed By: #### C BCWD, EGFR1, BMPX, OSMOL, NTBNP, ANION, TROPT #### [place] [address] PLATELET 214 thou/mm3 Normal 130-400 [facility] Comment on above: Performed By: #### C BCWD, EGFR1, BMPX, OSMOL, NTBNP, ANION, TROPT #### [place] [address] Platelet mean volume (Bld) [Entitic vol] 10.1 fL Normal 9.4-12.4 [facility] Comment on above: Performed By: #### C BCWD, EGFR1, BMPX, OSMOL, NTBNP, ANION, TROPT #### [place] [address] RBC 5.37 mill/mm3 Normal 4.70-6.10 [facility] Comment on above: Performed By: #### C BCWD, EGFR1, BMPX, OSMOL, NTBNP, ANION, TROPT #### [place] [address] RDW-SD 52.0 fL High 35.0-45.0 [facility] Comment on above: Performed By: #### C BCWD, EGFR1, BMPX, OSMOL, NTBNP, ANION, TROPT #### [place] [address] WBC 7.3 thou/mm3 Normal 4.8-10.8 [facility] Comment on above: Performed By: #### C BCWD, EGFR1, BMPX, OSMOL, NTBNP, ANION, TROPT #### [place] [address] DRUG ABUSE SCREENon 04-06-20 AMPHETAMINE/METHAMPH Negative Normal NEGATIVE [facility] Comment on above: Performed By: #### E TOHS, HEPPA, LIPAS #### [place] [address] BARBITURATE Negative Normal NEGATIVE [facility] Comment on above: Performed By: #### E TOHS, HEPPA, LIPAS #### [place] [address] Benzodiazepines Ql (U) Negative Normal NEGATIVE [facility] Comment on above: Performed By: #### E TOHS, HEPPA, LIPAS #### [place] [address] Cannabinoids Screen Ql (U) Negative Normal NEGATIVE [facility] Comment on above: Performed By: #### E TOHS, HEPPA, LIPAS #### [place] [address] COCAINE METABOLITE Negative Normal NEGATIVE [facility] Comment on above: Performed By: #### E TOHS, HEPPA, LIPAS #### [facility] [address] [place] [address] FENTANYL Negative Normal NEGATIVE [facility] Comment on above: Result Comment: A N [...] for medical use only. Performed By: #### LYNDSAY GATES LIPAS #### [facility] [address] [place] [address] Opiates Ql (U) Positive Normal NEGAT[facility] Comment on above: Performed By: #### LYNDSAY GATES LIPAS #### [facility] [address] [place] [address] OXYCODONE Negative Normal NEGATIVE [facility] Comment on above: Performed By: #### LYNDSAY GATES LIPAS #### [email or web address] [address] [place] [address] Phencyclidine Ql (U) Negative Normal NEGATIVE [facility] Comment on above: Performed By: #### LYNDSAY GATES LIPAS #### [facility] [address] [place] [address] EKG 12-LEADon 04-06-2022 EKG 12-LEAD 74 74 174 80 362 401 59 49 85 Normal sinus rhythm Nonspecific T wave abnormality Abnormal ECG No previous ECGs available Confirmed by MCKENZIE PIÑA MD ([id number]) on 04/06/2022 10:15:42 AM [email or web address] RetrieveTestByDateTime ?CkrpszkIB=[id number]&D ate=06-04-2022&Time=09 %3a13%3a05%3a00&TestTy pe=ECG&Site=3&OutputTy pe=PDF&Ext=PDF Normal [facility] ETHYL ALCOHOL BLOODon 2021 ETHYL ALCOHOL BLOOD < 0.01 Normal 0.00 [facility] Comment on above: Performed By: #### E LYNDSAY LUCAS LIPAS #### [facility] [address] [place] [address] GFR, ESTIMATEDon 04-06-2022 GFR/1.73 sq M.predicted MDRD (S/P/Bld) [Vol rate/Area] mL/min/{1.73_m2} Normal >60 [facility] Comment on above: Result Comment: Pedi atric [...] EGFR1, BMPX, OSMOL, NTBNP, ANION, TROPT #### [facility] [address] [place] [address] HEPATIC FUNCTION PANELon Albumin [Mass/Vol] 3.8 g/dL Normal 3.5-5.1 [facility] Comment on above: Performed By: #### E LYNDSAY LUCAS LIPAS #### [facility] [address] [place] [address] ALP [Catalytic activity/Vol] 112 U/L Normal 38-126 [facility] Comment on above: Performed By: #### E LYNDSAY LUCAS LIPMARY #### [facility] [address] [place] [address] ALT [Catalytic activity/Vol] 33 U/L Normal 11-66 [facility] Comment on above: Performed By: #### E LYNDSAY LUCAS LIPAS #### [facility] [address] [place] [address] AST [Catalytic activity/Vol] 27 U/L Normal 5-40 [facility] Comment on above: Performed By: #### E LYNDSAY LUCAS LIPAS #### [facility] [employer] [address] [place] [address] Bilirubin [Mass/Vol] 0.3 mg/dL Normal 0.3-1.2 [facility] Comment on above: Performed By: #### E LYNDSAY LUCAS LIPAS #### [facility] [employer] [facility] [address] [place] [address] Bilirubin.indirect [Mass/Vol] mg/dL Normal 0.0-0.3 [facility] Comment on above: Performed By: #### E LYNDSAY LUCAS LIPAS #### [address] [address] Protein [Mass/Vol] 6.8 g/dL Normal 6.1-8.0 [facility] Comment on above: Performed By: #### LYNDSAY GATES LIPAS #### [address] [address] LIPASEon 04-06-2022 Lipase [Catalytic activity/Vol] 27.5 U/L Normal 5.6-51.3 [facility] Comment on above: Performed By: #### LYNDSAY GATES LIPAS #### [address] [address] NT PRO-B NATRIURETIC PEPTIDE on 04-06-2022 Natriuretic peptide B (Bld) [Mass/Vol] 75.1 pg/mL Normal 0.0-900.0 [facility] Comment on above: Result Comment: Valu es < 300 pg/ml rule out, or make the probability of heart failure highly unlikely. Values which rule in heart failue are as follows: AGE RANGE <50 years >450 pg/ml 50-75 years >900 pg/ml >75 years >1800 pg/ml Performed By: #### C BCWD, EGFR1, BMPX, OSMOL, NTBNP, ANION, TROPT #### [address] [address] SARS-COV-2 & INFLUENZA A/Bon 04-06-2022 INFLUENZA A, RT-PCR Not detected Normal NOT DETECTED [facility] Comment on above: Performed By: #### E LYNDSAY LUCAS LIPAS #### [facility] [employer] [address] [place] [address] INFLUENZA B, RT-PCR Not detected Normal NOT DETECTED [facility] Comment on above: Performed By: #### E LYNDSAY LUCAS LIPAS #### [facility] [employer] [address] [place] [address] SARS-CoV-2 (COVID-19) RNA IGOR+probe Ql (Unsp spec) Not detected Normal NOT DETECTED [facility] Comment on above: Result Comment: Not Detected [...] (EUA) only. Fact sheet for Healthcare Providers: https://www.fda.gov/media/538829/download Fact sheet for Patients: https://www.fda.gov/media/790522/download Performed By: #### E LYNDSAY LUCAS LIPAS #### [facility] [address] [place] [address] TROPONIN-Ton 04-06-2022 TROPONIN-T < 0.010 Normal [facility] Comment on above: Result Comment: <0.0 10 [...] chronic condition. Performed By: #### E LYNDSAY ULCAS LIPAS #### [address] [address] TROPONIN-T < 0.010 Normal [facility] Comment on above: Result Comment: <0.0 10 [...] EGFR1, BMPX, OSMOL, NTBNP, ANION, TROPT #### [address] [address] URINE REFLEX C + Son 022 Bilirubin Ql (U) Negative Normal NEGATIVE [facility] Comment on above: Performed By: #### U R_CS #### [address] [address] CHARACTER CLEAR Normal CLEAR-SL CLOUD [facility] Comment on above: Performed By: #### U R_CS #### [address] [address] Color (U) YELLOW Normal STRAW-YELLOW [facility] Comment on above: Performed By: #### U R_CS #### [facility] [employer] [address] [place] [address] Glucose Ql (U) Negative Normal NEGATIVE [facility] Comment on above: Performed By: #### U R_CS #### [address] [address] Hemoglobin Ql (U) Negative Normal NEGATIVE [facility] Comment on above: Performed By: #### U R_CS #### [address] [address] Ketones Ql (U) Negative Normal NEGATIVE [facility] Comment on above: Performed By: #### U R_CS #### [facility] [address] [place] [address] LEUKOCYTES Negative Normal NEGATIVE [facility] Comment on above: Performed By: #### U R_CS #### [address] [address] Nitrite Ql (U) Negative Normal NEGATIVE [facility] Comment on above: Performed By: #### U R_CS #### [facility] [address] [place] [address] pH (U) 6.0 [pH] Normal 5.0 - 9.0 [facility] Comment on above: Performed By: #### U R_CS #### [address] [address] Protein Ql (U) Negative Normal NEGATIVE [facility] Comment on above: Performed By: #### U R_CS #### [place] [address] Specific gravity (U) [Rel density] 1.015 Normal 1.002-1.030 [facility] Comment on above: Performed By: #### U R_CS #### [address] [address] Urobilinogen Qn (U) 0.2 {Emerald'U}/dL Normal 0.0 - 1. 0 [facility] Comment on above: Performed By: #### U R_CS #### [address] [address] MONITORED CARDIAC REHAB SESS IONOrdered By: Haritha Leon on 01-28-2022 ANGINA N [facility] ENDING HR 85 [facility] EXT - ADMIT TO CR DATE 02/10/2021 [facility] Max HR 100 [facility] Max Mets 2.8 [facility] MODE Treadmill [facility] RESTING HR 84 [facility] SESSION DATE 01/28/2022 [facility] SESSION DAYS [facility] SESSION LENGTH 0:46:12 [facility] SESSION LIST Session List: 12/26/2021N 08/15/2022N 08/17/2022N 08/19/2022N [id number]/22/202201/26/2022 1.01/28/2022 Scheduled:14 Attended:1 Compliance:7% [facility] SESSION NUMBER 1 [facility] SESSION THR 114 [facility] STATUS Cardiac Phase II [facility] ECG 12 [place] 12-25-2021 Atrial Rate [facility] P [place] [facility] P-R Interval [facility] Q-T Interval [facility] Q-T Interval (corrected) [facility] QRS Duration [facility] QTC Calculation (Bezet) [facility] R [place] [facility] T [place] [facility] Ventricular Rate [facility] ECG 12 [place] 10-30-2021 Atrial Rate [facility] P [place] [facility] P-R Interval [facility] Q-T Interval [facility] Q-T Interval (corrected) [facility] QRS Duration [facility] QTC Calculation (Bezet) [facility] R [place] [facility] T [place] [facility] Ventricular Rate [facility] Basic Metabolic Panelon Anion gap [Moles/Vol] 8 mmol/L Low 9 - 17 mmol/L [facility] [employer] Calcium [Mass/Vol] 9.3 mg/dL 8.6 - 10. 4 mg/dL [facility] Chloride [Moles/Vol] 106 mmol/L 98 - 10 7 mmol/L [facility] CO2 [Moles/Vol] 27 mmol/L 20 - 31 mmol/L [facility] Creatinine [Mass/Vol] 0.91 mg/dL 0.70 - 1.20 mg/dL [facility] GFR >60 >60 mL/min [facility] GFR Non- >60 >60 mL/min [facility] Glucose [Mass/Vol] 98 mg/dL 70 - 99 mg/dL [facility] Interpretation and review of laboratory results Abnormal [facility] Potassium [Moles/Vol] 4.2 mmol/L 3.7 - 5.3 mmol/L [facility] Sodium [Moles/Vol] 141 mmol/L 135 - 144 mmol/L [facility] Urea nitrogen (BldV) [Mass/Vol] 13 mg/dL 8 - 23 mg/dL [facility] Urea nitrogen/Creatinine (Bld) [Mass ratio] 14 [facility] Basic Metabolic Profon 10-21 (cont.) Normal [facility] Comment on above: Result Comment: Aver age GFR for 60-69 years old: 85 mL/min/1.73sq m Chronic Kidney Disease: <60 mL/min/1.73sq m Kidney failure: <15 mL/min/1.73sq m eGFR calculated using average adult body mass. Additional eGFR calculator available at: http://www.ARPU/multiple_crcl_2012.htm Performed By: #### MIGUELINA GARCIA, CDP #### [facility] [address] [place] [address] [place] [address] Spread Cutter: Benigno Prakash MD Anion gap [Moles/Vol] 8 mmol/L Low 9-17 [facility] Comment on above: Performed By: #### MIGUELINA GARCIA, CDP #### [facility] [address] [place] [address] [place] [address] Spread Cutter: Benigno Prakash MD BUN/CRE Ratio 14 Normal 9-20 [facility] Comment on above: Performed By: #### MIGUELINA GARCIA, CDP #### [address] [place] [address] [employer]: Benigno Prakash MD Calcium [Mass/Vol] 9.3 mg/dL Normal 8.6-10.4 [facility] Comment on above: Performed By: #### MIGUELINA GARCIA, CDP #### [facility] [address] [place] [address] [employer]: Benigno Prakash MD Chloride [Moles/Vol] 106 mmol/L Normal 98-107 [facility] Comment on above: Performed By: #### MIGUELINA GARCIA, CDP #### [facility] [address] [place], [place] [id number] [employer]: Benigno Prakash MD CO2 [Moles/Vol] 27 mmol/L Normal 20-31 [facility] Comment on above: Performed By: #### T MIGUELINA MATHEWS, CDP #### [facility] [address] [place], [place] [id number] [employer]: Benigno Prakash MD Creatinine [Mass/Vol] 0.91 mg/dL Normal 0.70-1.20 [facility] Comment on above: Performed By: #### T MIGUELINA MATHEWS, CDP #### [facility] [address] [place], [place] [id number] [employer]: Benigno Prakash MD GFR, Amer >60 Normal >60 [facility] Comment on above: Performed By: #### T MIGUELINA MATHEWS, CDP #### [facility] [address] [place], [place] [id number] Spread C[employer]: Benigno Prakash MD GFR,non Amer >60 Normal >60 [facility] Comment on above: Performed By: #### T MIGUELINA MATHEWS, CDP #### [facility] [address] [place], [place] [id number] [employer]: Benigno Prakash MD Glucose [Mass/Vol] 98 mg/dL Normal 70-99 [facility] Comment on above: Performed By: #### T MIGUELINA MATHEWS, CDP #### [facility] [address] [place], [place] [id number] Spread Cutter: Benigno Prakash MD Potassium [Moles/Vol] 4.2 mmol/L Normal 3.7-5.3 [facility] Comment on above: Performed By: #### T MIGUELINA MATHEWS, CDP #### [facility] [address] [place], [place] [id number] Spread Cutter: Benigno Prakash MD Sodium [Moles/Vol] 141 mmol/L Normal 135-144 [facility] Comment on above: Performed By: #### T MIGUELINA MATHEWS, CDP #### [facility] [address] [place] [address] Spread Cutter: Benigno Prakash MD Staging: Normal [facility] Comment on above: Result Comment: Stag e 1: Some kidney damage normal GFR Stage 2: Mild kidney damage GFR 60-89 Stage 3: Moderate kidney damage GFR 30-59 Stage 4: Severe kidney damage GFR 15-29 Stage 5: Severe kidney damage GFR <15 ESRD - chronic treatment by dialysis or transplant Performed By: #### T MIGUELINA MATHEWS, CDP #### [facility] [address] [place] [address] Spread Cutter: Benigno Prakash MD Urea nitrogen [Mass/Vol] 13 mg/dL Normal 8-23 [facility] Comment on above: Performed By: #### T MIGUELINA MATHEWS, CDP #### [facility] [address] [place] [address] Spread Cutter: Benigno Prakash MD CBC with Auto Differentialon 10-21-2021 Absolute Eos # 0.27 [facility] Absolute Immature Granulocyte 0.07 [facility] Absolute Lymph # 2.25 [facility] Absolute Dubois # 0.58 [facility] Basophils (Bld) [#/Vol] 0.03 10*3/uL [facility] Basophils/100 WBC (Bld) 0 % 0 - 2 % [facility] Eosinophils/100 WBC (Bld) 3 % 1 - 4 % [facility] Hematocrit (Bld) [Volume fraction] 45.6 % 40.7 - 50.3 % [facility] Hemoglobin (Bld) [Mass/Vol] 15.4 g/dL 13.0 - 17.0 g/dL [facility] Immature granulocytes/100 WBC (Bld) 1 % High 0 [facility] Interpretation and review of laboratory results Abnormal [facility] Lymphocytes/100 WBC (Bld) 29 % 24 - 43 % [facility] MCH (RBC) [Entitic mass] 30.7 pg 25.2 - 33.5 pg [facility] MCHC (RBC) [Mass/Vol] 33.8 g/dL 28.4 - 34.8 g/dL [facility] MCV (RBC) [Entitic vol] 91.0 fL 82.6 - 102.9 fL [facility] Monocytes/100 WBC (Bld) 7 % 3 - 12 % [facility] NRBC Automated 0.0 0.0 per 100 WBC [facility] Platelet distribution width (Bld) [Ratio] 13.2 % 11.8 - 14.4 % [facility] Platelet mean volume (Bld) [Entitic vol] 10.7 fL 8.1 - 13.5 fL [facility] Platelets (Bld) [#/Vol] 206 10*3/uL [facility] RBC (Bld) [#/Vol] 5.01 10*6/uL 4.21 - 5.7 7 m/uL [facility] Segmented neutrophils/100 WBC (Bld) 60 % 36 - 65 % [facility] Segs Absolute 4.70 [facility] WBC (Bld) [#/Vol] 7.9 10*3/uL [facility] CBC with Diffon 10-21-2021 Abs. Basophil 0.03 k/uL Normal 0.00-0.20 [facility] Comment on above: Performed By: #### T MIGUELINA MATHEWS, CDP #### [facility] [address] [place] [address] Spread Cutter: Benigno Prakash MD Abs.Imm.Granulocyte 0.07 k/uL Normal 0.00-0.30 [facility] Comment on above: Performed By: #### T MIGUELINA MATHEWS, CDP #### [facility] [address] [place] [address] Spread Cutter: Benigno Prakash MD Abs.Neutrophil (Seg) 4.70 k/uL Normal 1.50-8.10 [facility] Comment on above: Performed By: #### T MIGUELINA MATHEWS, CDP #### [address] [place], [place] [id number] [employer]: Benigno Prakash MD Basophils/100 WBC (Bld) 0 % Normal 0-2 [facility] Comment on above: Performed By: #### MIGUELINA GARCIA, CDP #### [address] [place], [facility]83 Spread Cutter: Benigno Prakash MD Eosinophils (Bld) [#/Vol] 0.27 10*3/uL Normal 0.00-0.44 [facility] Comment on above: Performed By: #### MIGUELINA GARCIA, CDP #### [address] [place] [id number] Spread Cutter: Benigno Prakash MD Eosinophils/100 WBC (Bld) 3 % Normal 1-4 [facility] Comment on above: Performed By: #### MIGUELINA GARCIA, CDP #### [address] [place] [id number] Spread Cutter: Benigno Prakash MD Erythrocyte distribution width (RBC) [Ratio] 13.2 % Normal 11.8-14.4 [facility] Comment on above: Performed By: #### MIGUELINA GARCIA, CDP #### [address] [place], [facility]83 Spread Cutter: Benigno Prakash MD Hematocrit (Bld) [Volume fraction] 45.6 % Normal 40.7-50.3 [facility] Comment on above: Performed By: #### MIGUELINA GARCIA, CDP #### [address] [place] [address] Spread Cutter: Benigno Prakash MD Hemoglobin (Bld) [Mass/Vol] 15.4 g/dL Normal 13.0-17.0 [facility] Comment on above: Performed By: #### T MIGUELINA MATHEWS, CDP #### [facility] [address] [place], [facility]83 Spread Cutter: Benigno Prakash MD Immature granulocytes/100 WBC (Bld) 1 % High 0 [facility] Comment on above: Performed By: #### MIGUELINA GARCIA, CDP #### [facility] [address] [place], [facility]83 Spread Cutter: Benigno Prakash MD Lymphocytes (Bld) [#/Vol] 2.25 10*3/uL Normal 1.10-3.70 [facility] Comment on above: Performed By: #### MIGUELINA GARCIA, CDP #### [address] [place] [address] Spread Cutter: Benigno Prakash MD Lymphocytes/100 WBC (Bld) 29 % Normal 24-43 [facility] Comment on above: Performed By: #### MIGUELINA GARCIA, CDP #### [address] [place], [place] [address] Spread Cutter: Benigno Prakash MD MCH (RBC) [Entitic mass] 30.7 pg Normal 25.2-33.5 [facility] Comment on above: Performed By: #### MIGUELINA GARCIA, CDP #### [address] [place] [address] Spread Cutter: Benigno Prakash MD MCHC (RBC) [Mass/Vol] 33.8 g/dL Normal 28.4-34.8 [facility] Comment on above: Performed By: #### MIGUELINA GARCAI, CDP #### [address] [place] [id number] Spread Cutter: Benigno Prakash MD MCV (RBC) [Entitic vol] 91.0 fL Normal 82.6-102.9 [facility] Comment on above: Performed By: #### MIGUELINA GARCIA, CDP #### [facility] [address] [place] [address] Spread Cutter: Benigno Prakash MD Monocytes (Bld) [#/Vol] 0.58 10*3/uL Normal 0.10-1.20 [facility] Comment on above: Performed By: #### MIGUELINA GARCIA, CDP #### [facility] [address] [place], [facility]83 Spread Cutter: Benigno Prakash MD Monocytes/100 WBC (Bld) 7 % Normal 3-12 [facility] Comment on above: Performed By: #### T MIGUELINA MATHEWS, CDP #### [facility] [address] [place], [place] [id number] Spread Cutter: Benigno Prakash MD Neutrophil (Seg) 60 % Normal 36-65 [facility] Comment on above: Performed By: #### MIGUELINA GARCIA, CDP #### [facility] [address] [place], [facility]83 Spread Cutter: Benigno Prakash MD NRBC Automated 0.0 per 100 WBC Normal 0.0 [facility] Comment on above: Performed By: #### MIGUELINA GARCIA, CDP #### [facility] [address] [place], [facility]83 Spread Cutter: Benigno Prakash MD Platelet mean volume (Bld) [Entitic vol] 10.7 fL Normal 8.1-13.5 [facility] Comment on above: Performed By: #### T MIGUELINA MATHEWS, CDP #### [facility] [address] [place], [place] [id number] Spread Cutter: Benigno Prakash MD Platelets (Bld) [#/Vol] 206 10*3/uL Normal 138-453 [facility] Comment on above: Performed By: #### MIGUELINA GARCIA, CDP #### [facility] [address] [place], [facility]83 Spread Cutter: Benigno Prakash MD RBC (Bld) [#/Vol] 5.01 10*6/uL Normal 4.21-5.77 [facility] Comment on above: Performed By: #### T MIGUELINA MATHEWS, CDP #### [facility] [address] [place] [address] Spread Cutter: Benigno Prakash MD WBC (Bld) [#/Vol] 7.9 10*3/uL Normal 3.5-11.3 [facility] Comment on above: Performed By: #### T MIGUELINA MATHEWS, CDP #### [facility] [address] [place] [address] Spread Cutter: Benigno Prakash MD Laboratory - Chemistry and C hemistry - challengeon 10-21-2021 GFR/1.73 sq M.predicted MDRD (S/P/Bld) [Vol rate/Area] [facility] Comment on above: Average GFR for 60-6 9 years old: 85 mL/min/1.73sq m Chronic Kidney Disease: <60 mL/min/1.73sq m Kidney failure: <15 mL/min/1.73sq m eGFR calculated using average adult body mass. Additional eGFR calculator available at: http://www.[employer]/multiple_crcl_2012.htm Stage 1: Some kidney damage normal GFR Stage 2: Mild kidney damage GFR 60-89 Stage 3: Moderate kidney damage GFR 30-59 Stage 4: Severe kidney damage GFR 15-29 Stage 5: Severe kidney damage GFR <15 ESRD - chronic treatment by dialysis or transplant Troponinon 10-21-2021 Troponin, High Sens 16 ng/L Normal 0-22 [facility] Comment on above: Result Comment: High Sensitivity Troponin values cannot be compared with other Troponin methodologies. Patients with high levels of Biotin oral intake (i.e >5mg/day) may have falsely decreased Troponin levels. Samples collected within 8 hours of biotin intake may require additional information for diagnosis. Performed By: #### Melnia MATHEWS #### [facility] [address] [place] [address] Spread Cutter: Benigno Prakash MD Troponin, High Sens 17 ng/L Normal 0-22 [facility] Comment on above: Result Comment: High Sensitivity Troponin values cannot be compared with other Troponin methodologies. Patients with high levels of Biotin oral intake (i.e >5mg/day) may have falsely decreased Troponin levels. Samples collected within 8 hours of biotin intake may require additional information for diagnosis. Performed By: #### T REID, BMP, CDP #### [facility] [address] [place] [address] Spread Cutter: Benigno Prakash MD Troponin, High Sensitivity 16 ng/L 0 - 22 ng/L [facility] Comment on above: High Sensitivity Troponin values cannot be compared with other Troponin methodologies. Patients with high levels of Biotin oral intake (i.e >5mg/day) may have falsely decreased Troponin levels. Samples collected within 8 hours of biotin intake may require additional information for diagnosis. [facility] Troponin, High Sensitivity 17 ng/L 0 - 22 ng/L [facility] Comment on above: High Sensitivity Troponin values cannot be compared with other Troponin methodologies. Patients with high levels of Biotin oral intake (i.e >5mg/day) may have falsely decreased Troponin levels. Samples collected within 8 hours of biotin intake may require additional information for diagnosis. [facility] XR CHEST PORTABLEon 10-22-19 XR CHEST PORTABLE [...] Eubanks DO 10/21/21 Final result Normal [facility] No acute pulmonary findings. [facility] RIS CONSOLIDATED EXAMINATION: ONE XRAY VIEW OF THE [...] and atherosclerotic aorta. No acute bony findings. PN RIS Caridad Dugan, DO - 10/21/2021 EXAMINATION: ONE XRAY VIEW [...] bony findings. IMPRESSION: No acute pulmonary findings. [employer] Phone: Radiology Study observation (narrative) [employer] Phone: XR CHEST PORTABLEOrdered By: Caridad Eubanks on 10-21-2021 [employer] Phone: Basic Metabolic Panel Reflex Mgon 08-09-2020 Anion gap [Moles/Vol] 10 mmol/L Normal 7-16 [facility] Calcium [Mass/Vol] 9.0 mg/dL Normal 8.6-10.2 [facility] Chloride [Moles/Vol] 100 mmol/L Normal 98-107 [facility] CO2 [Moles/Vol] 32 mmol/L High 22-29 [facility] Creatinine [Mass/Vol] 1.1 mg/dL Normal 0.7-1.2 [facility] GFR Calculated >60 Normal >=60 [facility] Comment on above: Result Comment: [employer] Lieutenant altagracia Kidney Disease: less than 60 ml/min/1.73 sq.m. Kidney Failure: less than 15 ml/min/1.73 sq.m. Results valid for patients 18 years and older. GFR/1.73 sq M.predicted among blacks MDRD (S/P/Bld) [Vol rate/Area] mL/min/{1.73_m2} Normal [facility] Glucose [Mass/Vol] 109 mg/dL High 74-99 [facility] Magnesium [Moles/Vol] 3.1 mmol/L Low 3.5-5.0 [facility] Sodium [Moles/Vol] 142 mmol/L Normal 132-146 [facility] Urea nitrogen [Mass/Vol] 20 mg/dL Normal 8-23 [facility] Basic Metabolic Panel w/ Ref paula to MGon 08-09-2020 Anion gap [Moles/Vol] 10 mmol/L 7 - 16 mmol/L [employer] Phone: Calcium [Mass/Vol] 9.0 mg/dL 8.6 - 10. 2 mg/dL [employer] Phone: Chloride [Moles/Vol] 100 mmol/L 98 - 10 7 mmol/L [employer] Phone: CO2 [Moles/Vol] 32 mmol/L High 22 - 29 mmol/L [employer] Phone: Creatinine [Mass/Vol] 1.1 mg/dL 0.7 - 1.2 mg/dL [employer] Phone: GFR >60 [employer] Phone: GFR Non- >60 >=60 mL/min/1.73 [employer] Phone: Comment on above: Chronic Kidney Disea se: less than 60 ml/min/1.73 sq.m. Kidney Failure: less than 15 ml/min/1.73 sq.m. Results valid for patients 18 years and older. Glucose [Mass/Vol] 109 mg/dL High 74 - 99 mg/dL [facility] [employer] Phone: Interpretation and review of laboratory results Abnormal [facility] [employer] Phone: Potassium [Moles/Vol] 3.1 mmol/L Low 3.5 - 5.0 mmol/L [facility] [employer] Phone: Sodium [Moles/Vol] 142 mmol/L 132 - 146 mmol/L [facility] [employer] Phone: Urea nitrogen [Mass/Vol] 20 mg/dL 8 - 23 mg/dL [facility] [employer] Phone: CBC With Platelet and Differ entialon 08-09-2020 Abs Imm Granulocytes 0.03 E9/L Normal [facility] Absolute Basophils 0.03 E9/L Normal 0.00-0.20 [facility] Absolute Eosinophils 0.20 E9/L Normal 0.05-0.50 [facility] Absolute Lymphocytes 1.69 E9/L Normal 1.50-4.00 [facility] Absolute Monocytes 0.62 E9/L Normal 0.10-0.95 [facility] Absolute Neutrophils 4.38 E9/L Normal 1.80-7.30 [facility] Basophils/100 WBC (Bld) 0.4 % Normal 0.0-2.0 [facility] Eosinophils/100 WBC (Bld) 2.9 % Normal 0.0-6.0 [facility] Hematocrit (Bld) [Volume fraction] 44.2 % Normal 37.0-54.0 [facility] Hemoglobin (Bld) [Mass/Vol] 15.2 g/dL Normal 12.5-16.5 [facility] Imm Granulocytes 0.4 % Normal 0.0-5.0 [facility] Lymphocytes/100 WBC (Bld) 24.3 % Normal 20.0-42.0 [facility] MCH (RBC) [Entitic mass] 30.3 pg Normal 26.0-35.0 [facility] MCHC 34.4 % Normal 32.0-34.5 [facility] MCV (RBC) [Entitic vol] 88.0 fL Normal 80.0-99.9 [facility] Monocytes/100 WBC (Bld) 8.9 % Normal 2.0-12.0 [facility] Neutrophils/100 WBC (Bld) 63.1 % Normal 43.0-80.0 [facility] Platelet Count 193 E9/L Normal 130-450 [facility] Platelet mean volume (Bld) [Entitic vol] 10.4 fL Normal 7.0-12.0 [facility] RBC 5.02 E12/L Normal 3.80-5.80 [facility] RDW 12.8 fL Normal 11.5-15.0 [facility] WBC 7.0 E9/L Normal 4.5-11.5 [facility] CBC auto differentialon 07-16 Basophils (Bld) [#/Vol] 0.03 10*3/uL [employer] Phone: Basophils/100 WBC (Bld) 0.4 % 0.0 - 2.0 % [employer] Phone: Eosinophils (Bld) [#/Vol] 0.20 10*3/uL [employer] Phone: Eosinophils/100 WBC (Bld) 2.9 % 0.0 - 6.0 % [employer] Phone: Erythrocyte distribution width (RBC) [Ratio] 12.8 fL 11.5 - 15.0 fL [employer] Phone: Hematocrit (Bld) [Volume fraction] 44.2 % 37.0 - 54.0 % [employer] Phone: Hemoglobin (Bld) [Mass/Vol] 15.2 g/dL 12.5 - 16.5 g/dL [employer] Phone: Immature granulocytes (Bld) [#/Vol] 0.03 10*3/uL E9/L [employer] Phone: Immature granulocytes/100 WBC (Bld) 0.4 % 0.0 - 5.0 % [employer] Phone: Lymphocytes (Bld) [#/Vol] 1.69 10*3/uL [employer] Phone: Lymphocytes/100 WBC (Bld) 24.3 % 20.0 - 42.0 % [employer] Phone: MCH (RBC) [Entitic mass] 30.3 pg 26.0 - 35.0 pg [employer] Phone: MCHC (RBC) [Mass/Vol] 34.4 % 32.0 - 34.5 % [employer] Phone: MCV (RBC) [Entitic vol] 88.0 fL 80.0 - 99.9 fL [employer] Phone: Monocytes (Bld) [#/Vol] 0.62 10*3/uL [employer] Phone: Monocytes/100 WBC (Bld) 8.9 % 2.0 - 12.0 % [employer] Phone: Neutrophils Absolute 4.38 [employer] Phone: Neutrophils/100 WBC (Bld) 63.1 % 43.0 - 80.0 % [employer] Phone: Platelet mean volume (Bld) [Entitic vol] 10.4 fL 7.0 - 12.0 fL [employer] Phone: Platelets (Bld) [#/Vol] 193 10*3/uL [employer] Phone: RBC (Bld) [#/Vol] 5.02 10*6/uL [employer] Phone: WBC (Bld) [#/Vol] 7.0 10*3/uL [employer] Phone: Magnesiumon 03-26-2021 Magnesium [Mass/Vol] 2.8 mg/dL High 1.6-2.6 [facility] Interpretation and review of laboratory results Abnormal [employer] Phone: Magnesium [Mass/Vol] 2.8 mg/dL High 1.6 - 2 .6 mg/dL [employer] Phone: BNPon 08-08-2020 Natriuretic peptide B (Bld) [Mass/Vol] 29 pg/mL Normal 0-125 [facility] Brain Natriuretic Peptideon 08-08-2020 Natriuretic peptide B (Bld) [Mass/Vol] 29 pg/mL 0 - 125 pg/mL [employer] Phone: CBC With Platelet and Differ entialon 08-08-2020 Abs Imm Granulocytes 0.02 E9/L Normal [facility] Absolute Basophils 0.05 E9/L Normal 0.00-0.20 [facility] Absolute Eosinophils 0.25 E9/L Normal 0.05-0.50 [facility] Absolute Lymphocytes 2.15 E9/L Normal 1.50-4.00 [facility] Absolute Monocytes 0.65 E9/L Normal 0.10-0.95 [facility] Absolute Neutrophils 4.63 E9/L Normal 1.80-7.30 [facility] Basophils/100 WBC (Bld) 0.6 % Normal 0.0-2.0 [facility] Eosinophils/100 WBC (Bld) 3.2 % Normal 0.0-6.0 [facility] Hematocrit (Bld) [Volume fraction] 44.2 % Normal 37.0-54.0 [facility] Hemoglobin (Bld) [Mass/Vol] 15.8 g/dL Normal 12.5-16.5 [facility] Imm Granulocytes 0.3 % Normal 0.0-5.0 [facility] Lymphocytes/100 WBC (Bld) 27.7 % Normal 20.0-42.0 [facility] MCH (RBC) [Entitic mass] 31.0 pg Normal 26.0-35.0 [facility] MCHC 35.7 % High 32.0-34.5 [facility] MCV (RBC) [Entitic vol] 86.7 fL Normal 80.0-99.9 [facility] Monocytes/100 WBC (Bld) 8.4 % Normal 2.0-12.0 [facility] Neutrophils/100 WBC (Bld) 59.8 % Normal 43.0-80.0 [facility] Platelet Count 228 E9/L Normal 130-450 [facility] Platelet mean volume (Bld) [Entitic vol] 10.0 fL Normal 7.0-12.0 [facility] RBC 5.10 E12/L Normal 3.80-5.80 [facility] RDW 12.6 fL Normal 11.5-15.0 [facility] WBC 7.8 E9/L Normal 4.5-11.5 [facility] CBC auto differentialon 07-16 Basophils (Bld) [#/Vol] 0.05 10*3/uL [employer] Phone: Basophils/100 WBC (Bld) 0.6 % 0.0 - 2.0 % [employer] Phone: Eosinophils (Bld) [#/Vol] 0.25 10*3/uL [employer] Phone: Eosinophils/100 WBC (Bld) 3.2 % 0.0 - 6.0 % [employer] Phone: Erythrocyte distribution width (RBC) [Ratio] 12.6 fL 11.5 - 15.0 fL [employer] Phone: Hematocrit (Bld) [Volume fraction] 44.2 % 37.0 - 54.0 % [employer] Phone: Hemoglobin (Bld) [Mass/Vol] 15.8 g/dL 12.5 - 16.5 g/dL [employer] Phone: Immature granulocytes (Bld) [#/Vol] 0.02 10*3/uL E9/L [employer] Phone: Immature granulocytes/100 WBC (Bld) 0.3 % 0.0 - 5.0 % [employer] Phone: Interpretation and review of laboratory results Abnormal [employer] Phone: Lymphocytes (Bld) [#/Vol] 2.15 10*3/uL [employer] Phone: Lymphocytes/100 WBC (Bld) 27.7 % 20.0 - 42.0 % [employer] Phone: MCH (RBC) [Entitic mass] 31.0 pg 26.0 - 35.0 pg [employer] Phone: MCHC (RBC) [Mass/Vol] 35.7 % High 32.0 - 34.5 % [employer] Phone: MCV (RBC) [Entitic vol] 86.7 fL 80.0 - 99.9 fL [employer] Phone: Monocytes (Bld) [#/Vol] 0.65 10*3/uL [employer] Phone: Monocytes/100 WBC (Bld) 8.4 % 2.0 - 12.0 % [employer] Phone: Neutrophils Absolute 4.63 [employer] Phone: Neutrophils/100 WBC (Bld) 59.8 % 43.0 - 80.0 % [employer] Phone: Platelet mean volume (Bld) [Entitic vol] 10.0 fL 7.0 - 12.0 fL [employer] Phone: Platelets (Bld) [#/Vol] 228 10*3/uL [employer] Phone: RBC (Bld) [#/Vol] 5.10 10*6/uL [employer] Phone: WBC (Bld) [#/Vol] 7.8 10*3/uL [employer] Phone: CT HEAD WO CONTRASTon 2020 CT [...] Benigno Fregoso MD 08/08/20 Final result Normal [facility] Comment on above: Order Comment: Has a code stroke or stroke alert been called?->NoReason for exam:->headaches, elevated bpDecision Support Exception->Emergency Medical Condition ([place])What reading provider will be dictating this exam?->CRC Marbin, Mhy Incoming Radiant Results From [employer] - 08/08/2020 6:01 PM EDT EXAMINATION: CT [...] soft tissues. IMPRESSION: No acute intracranial abnormality. [employer] Phone: No acute intracrania l abnormality. [employer] Phone: EXAMINATION: CT OF T HE HEAD [...] of the visualized skull or soft tissues. [employer] Phone: Comprehensive Metabolic Pane rashel 08-08-2020 Albumin [Mass/Vol] 4.6 g/dL Normal 3.5-5.2 [facility] ALP [Catalytic activity/Vol] 89 U/L Normal 40-129 [facility] ALT [Catalytic activity/Vol] 38 U/L Normal 0-40 [facility] Anion gap [Moles/Vol] 12 mmol/L Normal 7-16 [facility] AST [Catalytic activity/Vol] 40 U/L High 0-39 [facility] Bilirubin [Mass/Vol] 0.8 mg/dL Normal 0.0-1.2 [facility] Calcium [Mass/Vol] 9.7 mg/dL Normal 8.6-10.2 [facility] Chloride [Moles/Vol] 95 mmol/L Low 98-107 [facility] CO2 [Moles/Vol] 29 mmol/L Normal 22-29 [facility] Creatinine [Mass/Vol] 1.6 mg/dL High 0.7-1.2 [facility] GFR/1.73 sq M.predicted among blacks MDRD (S/P/Bld) [Vol rate/Area] 53 mL/min/{1.73_m2} Normal [facility] GFR/1.73 sq M.predicted among non-blacks MDRD (S/P/Bld) [Vol rate/Area] 44 mL/min/{1.73_m2} Normal >=60 [facility] Comment on above: Result Comment: [employer] Lieutenant altagracia Kidney Disease: less than 60 ml/min/1.73 sq.m. Kidney Failure: less than 15 ml/min/1.73 sq.m. Results valid for patients 18 years and older. Glucose [Mass/Vol] 113 mg/dL High 74-99 [facility] Potassium [Moles/Vol] 2.9 mmol/L Low 3.5-5.0 [facility] Protein [Mass/Vol] 7.6 g/dL Normal 6.4-8.3 [facility] Sodium [Moles/Vol] 136 mmol/L Normal 132-146 [facility] Urea nitrogen [Mass/Vol] 24 mg/dL High 8-23 [facility] Albumin [Mass/Vol] 4.6 g/dL 3.5 - 5.2 g/dL [employer] Phone: ALP [Catalytic activity/Vol] 89 U/L 40 - 129 U/L [employer] Phone: ALT [Catalytic activity/Vol] 38 U/L 0 - 40 U/L [employer] Phone: Anion gap [Moles/Vol] 12 mmol/L 7 - 16 mmol/L [employer] Phone: AST [Catalytic activity/Vol] 40 U/L High 0 - 39 U/L [employer] Phone: Bilirubin Ql (U) 0.8 mg/dL 0.0 - 1.2 mg/dL [employer] Phone: Calcium [Mass/Vol] 9.7 mg/dL 8.6 - 10. 2 mg/dL [employer] Phone: Chloride [Moles/Vol] 95 mmol/L Low 98 - 10 7 mmol/L [employer] Phone: CO2 [Moles/Vol] 29 mmol/L 22 - 29 mmol/L [employer] Phone: Creatinine [Mass/Vol] 1.6 mg/dL High 0.7 - 1.2 mg/dL [employer] Phone: GFR 53 [employer] Phone: GFR Non- 44 mL/min/1.73 >=60 [employer] Phone: Comment on above: Chronic Kidney Disea se: less than 60 ml/min/1.73 sq.m. Kidney Failure: less than 15 ml/min/1.73 sq.m. Results valid for patients 18 years and older. Glucose [Mass/Vol] 113 mg/dL High 74 - 99 mg/dL [facility] [employer] Phone: Interpretation and review of laboratory results Abnormal [employer] Phone: Potassium [Moles/Vol] 2.9 mmol/L Low 3.5 - 5.0 mmol/L [employer] Phone: Protein [Mass/Vol] 7.6 g/dL 6.4 - 8.3 g/dL [facility] Phone: Sodium [Moles/Vol] 136 mmol/L 132 - 146 mmol/L [facility] Phone: Urea nitrogen [Mass/Vol] 24 mg/dL High 8 - 23 mg/dL [facility] Phone: EKG 12 Leadon 08-08-2020 Atrial Rate 64 BPM [employer] Phone: P Townsend 59 degrees [employer] Phone: P-R Interval 172 ms [employer] Phone: Q-T Interval 404 ms [employer] Phone: QRS Duration 86 ms [employer] Phone: QTc Calculation (Bazett) 416 ms [employer] Phone: R Townsend 62 degrees [facility] [employer] Phone: T Townsend -90 degrees [facility] Phone: Ventricular Rate 64 BPM [employer] Phone: Normal sinus rhythm ST & T wave abnormality, consider inferolateral ischemia Abnormal ECG When compared with ECG of 02-AUG-2020 11:44, Significant changes have occurred Confirmed by Shaq Goldsmith ([id number]) on 08/08/2020 5:38:50 PM [employer] Work Phone: [place], [facility] Incoming Ek g Results From [place] - 08/08/2020 5:38 PM EDT Normal sinus rhythm ST & T wave abnormality, consider inferolateral ischemia Abnormal ECG When compared with ECG of 02-AUG-2020 11:44, Significant changes have occurred Confirmed by Shaq Goldsmith ([id number]) on 08/08/2020 5:38:50 PM [employer] Work Phone: Magnesiumon 08-08-2020 Magnesium [Mass/Vol] 2.6 mg/dL Normal 1.6-2.6 [facility] Magnesium [Mass/Vol] 2.6 mg/dL 1.6 - 2 .6 mg/dL [employer] Work Phone: Troponinon 08-08-2020 Troponin I.cardiac [Mass/Vol] ng/mL Normal 0.00-0.03 [facility] Comment on above: Result Comment: TROP ONIN T BLOOD LEVELS: 0.03 ng/mL Upper Reference Limit 0.04 - 0.09 ng/mL Possible myocardial injury >= 0.10 ng/mL Myocardial injury Troponin I.cardiac [Mass/Vol] ng/mL 0.00 - 0.03 ng/mL [employer] Work Phone: Comment on above: TROPONIN T BLOOD [...] Fredy Austin MD 08/08/20 Final result Normal [facility] Comment on above: Order Comment: Reaso n for exam:->SOBWhat reading provider will be dictating this exam?->CRC No acute process [employer] Work Phone: EXAMINATION: TWO XRA Y VIEWS OF THE CHEST 08/08/2020 2:41 pm COMPARISON: 08/02/2020 HISTORY: ORDERING SYSTEM PROVIDED HISTORY: SOB TECHNOLOGIST PROVIDED HISTORY: Reason for exam:->SOB What reading provider will be dictating this exam?->CRC FINDINGS: Heart size is normal. There is tortuosity of the aorta. There are no infiltrates or effusions. [facility] Phone: [place], Mhy Incoming Radiant Results From [employer] - 08/08/2020 2:48 PM EDT EXAMINATION: TWO XRAY VIEWS OF THE CHEST 08/08/2020 2:41 pm COMPARISON: 08/02/2020 HISTORY: ORDERING SYSTEM PROVIDED HISTORY: SOB TECHNOLOGIST PROVIDED HISTORY: Reason for exam:->SOB What reading provider will be dictating this exam?->CRC FINDINGS: Heart size is normal. There is tortuosity of the aorta. There are no infiltrates or effusions. IMPRESSION: No acute process [facility] Phone: BNPon 08-02-2020 Natriuretic peptide B (Bld) [Mass/Vol] 70 pg/mL Normal 0-125 [facility] Brain Natriuretic Peptideon 08-02-2020 Natriuretic peptide B (Bld) [Mass/Vol] 70 pg/mL 0 - 125 pg/mL [facility] Phone: CBCon 08-02-2020 Erythrocyte distribution width (RBC) [Ratio] 12.8 fL 11.5 - 15.0 fL [employer] Phone: Hematocrit (Bld) [Volume fraction] 44.6 % 37.0 - 54.0 % [facility] [facility] Phone: Hemoglobin (Bld) [Mass/Vol] 15.5 g/dL 12.5 - 16.5 g/dL [facility] Phone: Interpretation and review of laboratory results Abnormal [facility] [employer] Phone: MCH (RBC) [Entitic mass] 30.6 pg 26.0 - 35.0 pg [facility] Phone: MCHC (RBC) [Mass/Vol] 34.8 % High 32.0 - 34.5 % [facility] Phone: MCV (RBC) [Entitic vol] 88.1 fL 80.0 - 99.9 fL [employer] Phone: Platelet mean volume (Bld) [Entitic vol] 10.4 fL 7.0 - 12.0 fL [employer] Phone: Platelets (Bld) [#/Vol] 214 10*3/uL [employer] Phone: RBC (Bld) [#/Vol] 5.06 10*6/uL [employer] Phone: WBC (Bld) [#/Vol] 7.7 10*3/uL [employer] Phone: CBC With Platelet No Differe ntialon 08-02-2020 Hematocrit (Bld) [Volume fraction] 44.6 % Normal 37.0-54.0 [facility] Hemoglobin (Bld) [Mass/Vol] 15.5 g/dL Normal 12.5-16.5 [facility] MCH (RBC) [Entitic mass] 30.6 pg Normal 26.0-35.0 [facility] MCHC 34.8 % High 32.0-34.5 [facility] MCV (RBC) [Entitic vol] 88.1 fL Normal 80.0-99.9 [facility] Platelet Count 214 E9/L Normal 130-450 [facility] Platelet mean volume (Bld) [Entitic vol] 10.4 fL Normal 7.0-12.0 [facility] RBC 5.06 E12/L Normal 3.80-5.80 [facility] RDW 12.8 fL Normal 11.5-15.0 [facility] WBC 7.7 E9/L Normal 4.5-11.5 [facility] CT HEAD WO CONTRASTon 2020 CT HEAD [...] Luigi Parson DO 08/02/20 Final result Normal [facility] Comment on above: Order Comment: Has a code stroke or stroke alert been called?->NoReason for exam:->headacheDecision Support Exception->Emergency Medical Condition (MA)What reading provider will be dictating this exam?->CRC No acute intracrania l abnormality. [facility] Phone: [place], Mhy Incoming Radiant Results From [employer] - 08/02/2020 4:50 PM EDT EXAMINATION: CT [...] soft tissues. IMPRESSION: No acute intracranial abnormality. [facility] Phone: EXAMINATION: CT OF T HE HEAD [...] of the visualized skull or soft tissues. [facility] Phone: Comprehensive Metabolic Pane rashel 08-02-2020 Albumin [Mass/Vol] 4.3 g/dL Normal 3.5-5.2 [facility] ALP [Catalytic activity/Vol] 76 U/L Normal 40-129 [facility] ALT [Catalytic activity/Vol] 26 U/L Normal 0-40 [facility] Anion gap [Moles/Vol] 13 mmol/L Normal 7-16 [facility] AST [Catalytic activity/Vol] 21 U/L Normal 0-39 [facility] Bilirubin [Mass/Vol] 0.7 mg/dL Normal 0.0-1.2 [facility] Calcium [Mass/Vol] 9.5 mg/dL Normal 8.6-10.2 [facility] Chloride [Moles/Vol] 100 mmol/L Normal 98-107 [facility] CO2 [Moles/Vol] 27 mmol/L Normal 22-29 [facility] Creatinine [Mass/Vol] 1.2 mg/dL Normal 0.7-1.2 [facility] GFR Calculated >60 Normal >=60 [facility] Comment on above: Result Comment: Community [employer] Police Lieutenant altagracia Kidney Disease: less than 60 ml/min/1.73 sq.m. Kidney Failure: less than 15 ml/min/1.73 sq.m. Results valid for patients 18 years and older. GFR/1.73 sq M.predicted among blacks MDRD (S/P/Bld) [Vol rate/Area] mL/min/{1.73_m2} Normal [facility] Glucose [Mass/Vol] 97 mg/dL Normal 74-99 [facility] Potassium [Moles/Vol] 3.3 mmol/L Low 3.5-5.0 [facility] Protein [Mass/Vol] 7.3 g/dL Normal 6.4-8.3 [facility] Sodium [Moles/Vol] 140 mmol/L Normal 132-146 [facility] Urea nitrogen [Mass/Vol] 22 mg/dL Normal 8-23 [facility] Albumin [Mass/Vol] 4.3 g/dL 3.5 - 5.2 g/dL [employer] Phone: ALP [Catalytic activity/Vol] 76 U/L 40 - 129 U/L [facility] Phone: ALT [Catalytic activity/Vol] 26 U/L 0 - 40 U/L [facility] Phone: Anion gap [Moles/Vol] 13 mmol/L 7 - 16 mmol/L [facility] [employer] Phone: AST [Catalytic activity/Vol] 21 U/L 0 - 39 U/L [facility] [employer] Phone: Bilirubin Ql (U) 0.7 mg/dL 0.0 - 1.2 mg/dL [facility] Phone: Calcium [Mass/Vol] 9.5 mg/dL 8.6 - 10. 2 mg/dL [facility] Phone: Chloride [Moles/Vol] 100 mmol/L 98 - 10 7 mmol/L [facility] [employer] Phone: CO2 [Moles/Vol] 27 mmol/L 22 - 29 mmol/L [facility] Phone: Creatinine [Mass/Vol] 1.2 mg/dL 0.7 - 1.2 mg/dL [facility] Phone: GFR >60 [employer] Phone: GFR Non- >60 >=60 mL/min/1.73 [facility] Phone: Comment on above: Chronic Kidney Disea se: less than 60 ml/min/1.73 sq.m. Kidney Failure: less than 15 ml/min/1.73 sq.m. Results valid for patients 18 years and older. Glucose [Mass/Vol] 97 mg/dL 74 - 99 mg/dL [facility] [employer] Phone: Interpretation and review of laboratory results Abnormal [facility] Phone: Potassium [Moles/Vol] 3.3 mmol/L Low 3.5 - 5.0 mmol/L [facility] Phone: Protein [Mass/Vol] 7.3 g/dL 6.4 - 8.3 g/dL [facility] Phone: Sodium [Moles/Vol] 140 mmol/L 132 - 146 mmol/L [facility] Phone: Urea nitrogen [Mass/Vol] 22 mg/dL 8 - 23 mg/dL [facility] Phone: Magnesiumon 08-02-2020 Magnesium [Mass/Vol] 2.6 mg/dL Normal 1.6-2.6 [facility] Magnesium [Mass/Vol] 2.6 mg/dL 1.6 - 2 .6 mg/dL [facility] Phone: Troponinon 08-02-2020 Troponin I.cardiac [Mass/Vol] ng/mL Normal 0.00-0.03 [facility] Comment on above: Result Comment: TROP ONIN T BLOOD LEVELS: 0.03 ng/mL Upper Reference Limit 0.04 - 0.09 ng/mL Possible myocardial injury >= 0.10 ng/mL Myocardial injury Troponin I.cardiac [Mass/Vol] ng/mL 0.00 - 0.03 ng/mL [facility] Phone: Comment on above: TROPONIN T BLOOD [...] Meka Riggins MD 08/02/20 Final result Normal [facility] Comment on above: Order Comment: Reaso n [...] The osseous structures are without acute process. [employer] Work Phone: No acute process. [facility] Work Phone: [place], Mhy Incoming Radiant Results From [employer] - 08/02/2020 2:49 PM EDT EXAMINATION: TWO [...] without acute process. IMPRESSION: No acute process. [employer] Work Phone: CBC WITH AUTO DIFFERENTIALon 04-22-2020 Basophils (Bld) [#/Vol] 0.05 10*3/uL [facility] Basophils/100 WBC (Bld) 0.5 % [facility] Eosinophils (Bld) [#/Vol] 0.27 10*3/uL [facility] Eosinophils/100 WBC (Bld) 2.6 % [facility] Erythrocyte distribution width (RBC) [Entitic vol] 12.9 % 11.6 - 14.8 % [facility] Hematocrit (Bld) [Volume fraction] 47.6 % 41 - 53 % [facility] Hemoglobin (Bld) [Mass/Vol] 15.9 g/dL 13.5 - 17.5 g/dL [facility] Immature granulocytes (Bld) [#/Vol] 0.14 10*3/uL [facility] Immature granulocytes/100 WBC (Bld) 1.30 % [facility] Comment on above: The IG parameter is the percentage of metamyelocytes, myelocytes and promyelocytes. An immature granulocyte count (IG) of 1% or more suggests the possibility of infection, an IG count of 3% is very likely related to an infection. Interpretation and review of laboratory results Abnormal [facility] Lymphocytes (Bld) [#/Vol] 2.54 10*3/uL [facility] Lymphocytes/100 WBC (Bld) 24.1 % [facility] MCH (RBC) [Entitic mass] 30.5 pg 26 - 34 pg [facility] MCHC (RBC) [Mass/Vol] 33.4 g/dL 31 - 37 g/dL [facility] MCV (RBC) [Entitic vol] 91.2 fL 80 - 100 fL [facility] Monocytes (Bld) [#/Vol] 0.96 10*3/uL High [facility] Monocytes/100 WBC (Bld) 9.1 % [facility] Neutrophils (Bld) [#/Vol] 6.57 10*3/uL [facility] Neutrophils/100 WBC (Bld) 62.4 % [facility] Nucleated RBC (Bld) [#/Vol] 0.00 10*3/uL [facility] Nucleated RBC/100 WBC (Bld) [Ratio] 0.0 % [facility] Platelet mean volume (Bld) [Entitic vol] 10.2 fL 9.4 - 12.4 fL [facility] Platelets (Bld) [#/Vol] 232 10*3/uL [facility] RBC (Bld) [#/Vol] 5.22 10*6/uL [facility] ealth WBC (Bld) [#/Vol] 10.53 10*3/uL [facility] COVID-19/Influenza A,B [facility] 04-22-2020 Influenza A Not Detected [facility]ed [facility] Interpretation and review of laboratory results Normal [facility] SARS-CoV-2 Not Detected Not Detected [facility] This test was performed under the FDA's Emergency Use Authorization (EUA). Testing was performed using the [employer] brady SARS-CoV-2 & Influenza A/B Nucleic Acid [...] at the following links: For Healthcare Providers: https://www.fda.gov/me latisha/108189/download For Patients: https://www.fda.gov/mt latisha/811415/download [facility] Chem 7on 04-22-2020 Anion gap [Moles/Vol] 8 mmol/L Low 10 - 2 0 mmol/L [facility] Chloride [Moles/Vol] 107 mmol/L 98 - 10 8 mmol/L [facility] Creatinine [Mass/Vol] 1.03 mg/dL 0.80 - 1.30 [facility] GFR/1.73 sq M predicted among non-blacks MDRD (S/P/Bld) [Vol rate/Area] The eGFR should be used for monitoring renal function only and not for medication dosing. [facility] GFR/1.73 sq M.predicted CKD-EPI (S/P/Bld) [Vol rate/Area] 77 >=60 mL/min/1.73 m2 [facility] Glucose [Mass/Vol] 88 mg/dL 65 - 99 mg/dL [facility] HCO3 [Moles/Vol] 31 mmol/L 21 - 32 mmol/L [facility] Interpretation and review of laboratory results Abnormal [facility] Potassium [Moles/Vol] 3.9 mmol/L 3.5 - 5.1 mmol/L [facility] Sodium [Moles/Vol] 142 mmol/L 135 - 145 mmol/L [facility] Urea nitrogen [Mass/Vol] 10 mg/dL 8 - 25 mg/dL [facility] Urea nitrogen/Creatinine [Mass ratio] 9.7 mg/mg Low [facility] XR Chest 1 Viewon 04-22-2020 EXAMINATION: XR [...] size is stable. No pleural effusion pneumothorax. [facility] Bibasilar opacities, could represent multilobar pneumonia. Workstation ID: [id number] [facility] Interface, Rad In Fu ji Speechq - [...] could represent multilobar pneumonia. Workstation ID: [id number] [facility] XR HIP RIGHT 2 VIEWSon 02-27 FINDINGS/IMPRESSION: 1. Moderate to severe osteoarthritis of the right hip, similar to prior. Approximately 2 cm chronic osteochondral lesion in the superior right femoral head articular surface, may represent chronic avascular necrosis with chronic subchondral collapse or may relate to remote trauma. 2. No radiographic evidence of acute osseous abnormality. [facility] IMAGES REVIEWED: XR HIP RIGHT 2 VIEWS COMPARISON: 12/02/2016 x-ray right hip, 06/11/2017 CT right hip. CLINICAL INDICATION: Pain for one month, no known injury. [facility] [employer] User, Interfaces - 02/28/2020 12:41 AM EDT [...] No radiographic evidence of acute osseous abnormality. [facility] ECG 12-LEADon 06-21-2019 Atrial Rate 91 BPM [facility] P Townsend 41 degrees [facility] P-R Interval 158 ms [facility] Q-T Interval 356 ms [facility] QRS Duration 82 ms [facility] QTC Calculation (Bezet) 437 ms [facility] R Townsend 42 degrees [facility] T Townsend 35 degrees [facility] Ventricular Rate 91 BPM [facility] Normal sinus rhythm Normal ECG Confirmed by Alexandria Beard MD ([id number]) on 06/21/2019 8:57:09 AM [facility] Hemoglobin A1con 06-20-2019 Average glucose Estimated from glycated hemoglobin mass conc (Bld) 114 mg/dL 68 - 114 mg/dL [facility] HbA1c (Bld) [Mass fraction] 5.6 % 4 - 5.6 % [facility] Interpretation and review of laboratory results Normal [facility] Normal: 4.0% - 5.6% Increased risk for diabetes: 5.7% - 6.4% Diabetes: >= 6.5% Pediatrics: No established reference range Estimated average glucose: 68-114 mg/dL [facility] Lipid Panelon 06-19-2019 Cholesterol [Mass/Vol] 167 mg/dL 100 - 199 mg/dL [facility] Comment on above: National Cholesterol Education Program Guidelines: Cholesterol Desirable: <200 mg/dL Borderline High: 200-239 mg/dL High: greater than or equal to 240 mg/dL Cholesterol in HDL [Mass/Vol] 51 mg/dL 40 - 59 [facility] Comment on above: National Cholesterol Education Program Guidelines: HDL Cholesterol Low: <40 mg/dL Near Optimal: 40-59 mg/dL High: greater than or equal to 60 mg/dL Cholesterol in LDL [Mass/Vol] 75 mg/dL 10 - 130 mg/dL [facility] Comment on above: National Cholesterol Education Program Guidelines: LDL Cholesterol Optimal: <100 mg/dL Near Optimal/above Optimal: 100-129 mg/dL Borderline High: 130-159 mg/dL High: 160-189 mg/dL Very High: greater than or equal to 190 mg/dL Cholesterol non HDL [Mass/Vol] 116 mg/dL [facility] Comment on above: National Cholesterol Education Program Guidelines: NON HDL Cholesterol Desirable: <130 mg/dL Borderline High: 130-159 mg/dL High: 160-189 mg/dL Very High: > or = 190 mg/dL Cholesterol.total/Chol esterol in HDL [Mass ratio] 3.3 {ratio} ratio [facility] Comment on above: Males Cholesterol/HD L Ratio: Average risk: 5.0 1/2 average risk: 3.4 2 x average risk: 9.6 Interpretation and review of laboratory results Abnormal [facility] Triglyceride [Mass/Vol] 207 mg/dL High 30 - 150 mg/dL [facility] Comment on above: National Cholesterol Education Program Guidelines: Triglyceride Normal: <150 mg/dL Borderline High: 150-199 mg/dL High: 200-499 mg/dL Very High: greater than or equal to 500 mg/dL TSH with Reflex Free T4on Interpretation and review of laboratory results Normal [facility] TSH Qn 1.05 m[IU]/L [facility] Alcohol, Medicalon 0 Ethanol [Mass/Vol] 69.30 mg/dL High <10.[address] [facility] ealt Interpretation and review of laboratory results Abnormal [facility] CBC WITH AUTO DIFFERENTIALon 06-18-2019 Basophils (Bld) [#/Vol] 0.04 10*3/uL [facility] Basophils/100 WBC (Bld) 0.4 % [facility] Eosinophils (Bld) [#/Vol] 0.19 10*3/uL [facility] Eosinophils/100 WBC (Bld) 1.8 % [facility] Erythrocyte distribution width (RBC) [Entitic vol] 13.0 % 11.6 - 14.8 % [facility] Hematocrit (Bld) [Volume fraction] 45.8 % 41 - 53 % [facility] Hemoglobin (Bld) [Mass/Vol] 16.2 g/dL 13.5 - 17.5 g/dL [facility] Immature granulocytes (Bld) [#/Vol] 0.04 10*3/uL [facility] Immature granulocytes/100 WBC (Bld) 0.40 % [facility] Comment on above: The IG parameter is the percentage of metamyelocytes, myelocytes, and promyelocytes. Interpretation and review of laboratory results Abnormal [facility] Lymphocytes (Bld) [#/Vol] 1.49 10*3/uL [facility] Lymphocytes/100 WBC (Bld) 14.2 % [facility] MCH (RBC) [Entitic mass] 31.8 pg 26 - 34 pg [facility] MCHC (RBC) [Mass/Vol] 35.4 g/dL 31 - 37 g/dL [facility] MCV (RBC) [Entitic vol] 89.8 fL 80 - 100 fL [facility] Monocytes (Bld) [#/Vol] 0.72 10*3/uL [facility] Monocytes/100 WBC (Bld) 6.9 % [facility] Neutrophils (Bld) [#/Vol] 8.01 10*3/uL High [facility] Neutrophils/100 WBC (Bld) 76.3 % [facility] Nucleated RBC (Bld) [#/Vol] 0.00 10*3/uL [facility] Nucleated RBC/100 WBC (Bld) [Ratio] 0.0 % [facility] Platelet mean volume (Bld) [Entitic vol] 10.1 fL 9 - 15.5 fL [facility] Platelets (Bld) [#/Vol] 209 10*3/uL [facility] RBC (Bld) [#/Vol] 5.10 10*6/uL [facility] ealth WBC (Bld) [#/Vol] 10.49 10*3/uL [facility] CPK NO MBon 06-18-2019 CK [Catalytic activity/Vol] 376 U/L High 60 - 225 U/L [facility] Interpretation and review of laboratory results Abnormal [facility] Comprehensive Metabolic Pane rashel 06-18-2019 Albumin [Mass/Vol] 3.9 g/dL 3.2 - 5.2 g/dL [facility] ALP [Catalytic activity/Vol] 97 U/L 40 - 150 U/L [facility] ALT [Catalytic activity/Vol] 31 U/L 14 - 65 U/L [facility] Anion gap [Moles/Vol] 10 mmol/L 10 - 2 0 mmol/L [facility] AST [Catalytic activity/Vol] 24 U/L 0 - 45 U/L [facility] Bilirubin [Mass/Vol] 0.9 mg/dL 0 - 1.3 mg/dL [facility] Calcium [Mass/Vol] 8.7 mg/dL 8.4 - 10. 2 mg/dL [facility] Chloride [Moles/Vol] 102 mmol/L 98 - 10 8 mmol/L [facility] Creatinine [Mass/Vol] 1.13 mg/dL 0.8 - 1.3 mg/dL [facility] GFR/1.73 sq M predicted among non-blacks MDRD (S/P/Bld) [Vol rate/Area] The eGFR should be used for monitoring renal function only and not for medication dosing. [facility] GFR/1.73 sq M.predicted CKD-EPI (S/P/Bld) [Vol rate/Area] 69 >=60 mL/min/1.73 m2 [facility] Glucose [Mass/Vol] 90 mg/dL 65 - 99 mg/dL [facility] HCO3 [Moles/Vol] 28 mmol/L 21 - 32 mmol/L [facility] Interpretation and review of laboratory results Normal [facility] Potassium [Moles/Vol] 3.7 mmol/L 3.5 - 5.1 mmol/L [facility] Protein [Mass/Vol] 7.5 g/dL 6 - 8 g/dL [facility]th Sodium [Moles/Vol] 136 mmol/L 135 - 145 mmol/L [facility] Urea nitrogen [Mass/Vol] 12 mg/dL 8 - 25 mg/dL [facility] Urea nitrogen/Creatinine [Mass ratio] 10.6 mg/mg [facility] DRUGS OF ABUSE SCREEN, URINE on 06-18-2019 Amphetamines Ql (U) None Detected None Detected [facility] Comment on above: Urine Amphetamine Cu toff: < 1000 ng/mL = None Detected Barbiturates Screen Ql (U) None Detected None Detected [facility] Comment on above: Urine Barbiturates C utoff: < 200 ng/mL = None Detected Benzodiazepines Ql (U) None Detected None Detec dawit [facility] Comment on above: Urine Benzodiazepine Cutoff: < 200 ng/mL = None Detected Cannabinoids Screen Ql (U) None Detected None Detected [facility] Comment on above: Urine Cannabinoids C utoff: < 50 ng/mL = None Detected Cocaine Ql (U) Positive Abnormal None Detected [facility] Comment on above: Urine Cocaine Cutoff : < 300 ng/mL = None Detected Interpretation and review of laboratory results Abnormal [facility] Methadone Screen Ql (U) None Detected None Detected [facility] Comment on above: Urine Methadone Cuto ff: < 300 ng/mL = None Detected Opiates Screen Ql (U) None Detected None Detect ed [facility] Comment on above: Urine Opiates Cutoff : < 300 ng/mL = None Detected Oxycodone Ql (U) None Detected None Detected [facility] Comment on above: Urine Oxycodone Cuto ff: < 100 ng/mL = None Detected Screen results shoul d be used for treatment purposes only. Specimen will be kept for 1 week, if the sample is adequate. Confirmation testing can be initiated by calling the lab within 1 week. [facility] Otheron 06-18-2019 Extra Tube Hold for add-ons. [facility] Comment on above: Auto resulted. TROPONINon 06-18-2019 Troponin I.cardiac [Mass/Vol] ng/mL <=45 ng/L [facility] Troponin I.cardiac [Mass/Vol] Normal [facility] CBC WITH AUTO DIFFERENTIALon 04-15-2019 Basophils (Bld) [#/Vol] 0.02 10*3/uL [facility] Basophils/100 WBC (Bld) 0.3 % [facility] Eosinophils (Bld) [#/Vol] 0.17 10*3/uL [facility] Eosinophils/100 WBC (Bld) 2.6 % [facility] Erythrocyte distribution width (RBC) [Entitic vol] 13.2 % 11.6 - 14.8 % [facility] Hematocrit (Bld) [Volume fraction] 51.6 % 41 - 53 % [facility] Hemoglobin (Bld) [Mass/Vol] 17.2 g/dL 13.5 - 17.5 g/dL [facility] Immature granulocytes (Bld) [#/Vol] 0.05 10*3/uL [facility] Immature granulocytes/100 WBC (Bld) 0.80 % [facility] Comment on above: The IG parameter is the percentage of metamyelocytes, myelocytes, and promyelocytes. Lymphocytes (Bld) [#/Vol] 1.22 10*3/uL [facility] Lymphocytes/100 WBC (Bld) 18.5 % [facility] MCH (RBC) [Entitic mass] 31.7 pg 26 - 34 pg [facility] MCHC (RBC) [Mass/Vol] 33.3 g/dL 31 - 37 g/dL [facility] MCV (RBC) [Entitic vol] 95.0 fL 80 - 100 fL [facility] Monocytes (Bld) [#/Vol] 0.36 10*3/uL [facility] Monocytes/100 WBC (Bld) 5.5 % [facility] Neutrophils (Bld) [#/Vol] 4.77 10*3/uL [facility] Neutrophils/100 WBC (Bld) 72.3 % [facility] Nucleated RBC (Bld) [#/Vol] 0.00 10*3/uL [facility] Nucleated RBC/100 WBC (Bld) [Ratio] 0.0 % [facility] Platelet mean volume (Bld) [Entitic vol] 10.4 fL 9 - 15.5 fL [facility] Platelets (Bld) [#/Vol] 203 10*3/uL [facility] RBC (Bld) [#/Vol] 5.43 10*6/uL [facility] WBC (Bld) [#/Vol] 6.59 10*3/uL [facility] CT MAXILLOFACIAL WITHOUT CON TRASTon 04-15-2019 EXAMINATION: [...] no evidence of acute fracture or dislocation. [facility] Nonspecific subcutaneous soft tissue swelling may be related to cellulitis. No definite drainable fluid collections identified; however, the study is limited without the use of IV contrast. There is no evidence of acute fracture or dislocation. The paranasal sinuses and mastoid air cells are grossly clear. [employer] Workstation ID: [id number] [facility] Interface, Rad In Luan ji Speechq - 04/15/2019 1:43 PM EST [...] and mastoid air cells are grossly clear. [employer] Work[employer] ID: [id number] [facility] Chem 7on 04-15-2019 Anion gap [Moles/Vol] 9 mmol/L Low 10 - 2 0 mmol/L [facility] Chloride [Moles/Vol] 111 mmol/L High 98 - 10 8 mmol/L [facility] Creatinine [Mass/Vol] 0.98 mg/dL 0.8 - 1.3 mg/dL [facility] GFR/1.73 sq M predicted among non-blacks MDRD (S/P/Bld) [Vol rate/Area] The eGFR should be used for monitoring renal function only and not for medication dosing. [facility] GFR/1.73 sq M.predicted CKD-EPI (S/P/Bld) [Vol rate/Area] 82 >=60 mL/min/1.73 m2 [facility] Glucose [Mass/Vol] 100 mg/dL High 65 - 99 mg/dL [facility] HCO3 [Moles/Vol] 28 mmol/L 21 - 32 mmol/L [facility] Interpretation and review of laboratory results Abnormal [facility] Potassium [Moles/Vol] 4.7 mmol/L 3.5 - 5.1 mmol/L [facility] Sodium [Moles/Vol] 143 mmol/L 135 - 145 mmol/L [facility] Urea nitrogen [Mass/Vol] 13 mg/dL 8 - 25 mg/dL [facility] Urea nitrogen/Creatinine [Mass ratio] 13.3 mg/mg [facility] Stress test only, exerciseon 05-30-2018 Baseline BP 146/97 Invalid Interpretation Code mmHg [facility] Baseline HR 85 Invalid Interpretation Code bpm [facility] Estimated workload 10.9 Invalid Interpretation Code METS [facility] Exercise duration (min) 9 min Invalid Interpretation Code [facility] Exercise duration (sec) 30 Invalid Interpretation Code sec [facility] Percent of predicted max HR 91 % Invalid Interpretation Code [facility] Post peak BP 205/100 Invalid Interpretation Code mmHg [facility] Post peak HR 144 Invalid Interpretation Code bpm [facility] ST Elevation (mm) 0 mm Invalid Interpretation Code [facility] Target HR 135 Invalid Interpretation Code bpm [facility] No diagnostic ECG changes at maximal workload. Figueredo treadmill score 9 consistent with low-risk study and an annual cardiovascular mortality of <1%. Hypertensive blood pressure response to exercise. No significant arrhythmias noted with exercise or into recovery. Invalid Interpretation Code [facility] Alcohol, Medicalon 9 Ethanol mass conc Negative Normal [facility] Comment on above: Performed By: #### C BCDIF, PT, PTT, CMET, EDCTNI #### Unless otherwise noted, all [place] [address] CLIA: [id number] [employer] Supervisor: Cameron Vanegas M.D. CT AORTIC DISSECTIONon 05-26 CT AORTIC DISSECTION Final Report * Accession No: [id number] Performed: May 26 2018 10:57AM Examination: [...] CHAN M.D. Trans: mh : cc: Normal [facility] Cardiac Troponin-Ion 019 Troponin I.cardiac mass conc ng/mL Normal < 45.0 [facility] Comment on above: Result Comment: Elev ation [...] Unless otherwise noted, all [place] [address] CLIA: [id number] [employer] Supervisor: Cameron Vanegas M.D. Troponin I.cardiac mass conc No Biomarker evidence of myocardial injury within the past 14 hours. [facility] Comment on above: Performed By: #### C BCDIF, PT, PTT, CMET, EDCTNI #### Unless otherwise noted, all [place] [address] CLIA: [id number] [employer] Supervisor: Cameron Vanegas M.D. Troponin I.cardiac mass conc No Biomarker evidence of myocardial injury within the past 14 hours. [facility] Comment on above: Performed By: #### C BCDIF, PT, PTT, CMET, EDCTNI #### Unless otherwise noted, all testing performed by [place] [id number] CLIA: [id number] [employer] Supervisor: Cameron Vanegas M.D. Troponin I.cardiac mass conc ng/mL Normal < 45.0 [facility] Comment on above: Result Comment: Elev ation [...] Unless otherwise noted, all [place] [address] CLIA: [id number] [employer] Supervisor: Cameron Vanegas M.D. Troponin I.cardiac mass conc ng/mL Normal < 45.0 [facility] Comment on above: Result Comment: Elev ation [...] Unless otherwise noted, all [place] [address] CLIA: [id number] [employer] Supervisor: Cameron Vanegas M.D. D-Dimeron 05-26-2018 D-Dimer 1.63 mcg/ml (FEU) High < .5 [facility] Comment on above: Result Comment: This test is intended for use in conjunction with a clinical pretest probability (PTP) assessment model to exclude pulmonary embolism (PE) and deep vein thrombosis (DVT) in outpatients suspected of PE or DVT. Performed By: #### C BCDIF, PT, PTT, CMET, EDCTNI #### Unless otherwise noted, all [place] [address] CLIA: [id number] [employer] Supervisor: Cameron Vanegas M.D. Partial Thromboplastin Timeo n 05-26-2018 aPTT Coag time (Bld) 34 s Normal 23.0-34.0 [facility] Comment on above: Result Comment: Tommy salcido therapeutic range for PTT is 68-104 sec. Performed By: #### C BCDIF, PT, PTT, CMET, EDCTNI #### Unless otherwise noted, all [place] [address] CLIA: [id number] [employer] Supervisor: Cameron Vanegas M.D. TSHon 05-26-2018 Thyrotropin Qn 4.13 uIU/mL Normal 0.270-4.200 [facility] Comment on above: Result Comment: Samp les from patients routinely receiving high dose biotin therapy (100-300 mg/day) may show falsely decreased results. Please correlate clinically. Please note reference range change as of 10/23/18. Performed By: #### C BCDIF, PT, PTT, CMET, EDCTNI #### Unless otherwise noted, all testing performed by [id number] CLIA: [id number] [employer] Supervisor: Cameron Vanegas M.D. Basic Metabolic Panelon 10-0 Calcium mass conc 9.1 mg/dL Normal 8.4-10.2 [facility] Comment on above: Performed By: #### C BCDIF, PT, PTT, CMET, EDCTNI #### Unless otherwise noted, all testing performed by [id number] CLIA: [id number] [employer] Supervisor: Cameron Vanegas M.D. Chloride molar conc 107 mmol/L Normal 98-108 [facility] Comment on above: Performed By: #### C BCDIF, PT, PTT, CMET, EDCTNI #### Unless otherwise noted, all testing performed by [place] [phone] CLIA: [id number] [employer] Supervisor: Cameron Vanegas M.D. CO2 molar conc 27 mmol/L Normal 21-32 [facility] Comment on above: Performed By: #### C BCDIF, PT, PTT, CMET, EDCTNI #### Unless otherwise noted, all [place] [address] CLIA: [id number] [employer] Supervisor: Cameron Vanegas M.D. Creatinine mass conc 1.10 mg/dL Normal 0.80-1.30 [facility] Comment on above: Performed By: #### C BCDIF, PT, PTT, CMET, EDCTNI #### Unless otherwise noted, all [place] [address] CLIA: [id number] [employer] Supervisor: Cameron Vanegas M.D. GFR/1.73 sq M predicted among blacks MDRD vol rate/area (S/P/Bld) mL/min/{1.73_m2} Normal [facility] Comment on above: Result Comment: Afri can Tristanian GFR Calc Performed By: #### C BCDIF, PT, PTT, CMET, EDCTNI #### Unless otherwise noted, all [place] [address] CLIA: [id number] [employer] Supervisor: Cameron Vanegas M.D. GFR/1.73 sq M predicted among non-blacks MDRD vol rate/area (S/P/Bld) mL/min/{1.73_m2} [facility] Comment on above: Result Comment: Non- GFR [...] Unless otherwise noted, [place] [address] CLIA: [id number] [employer] Supervisor: Cameron Vanegas M.D. Glucose mass conc 94 mg/dL Normal 70-99 [facility] Comment on above: Result Comment: This test result might be falsely depressed or falsely elevated on samples drawn from patients taking Sulfasalazine and Sulfapyridine. Venipuncture should occur prior to taking either of these drugs. Performed By: #### C BCDIF, PT, PTT, CMET, EDCTNI #### Unless otherwise noted, [place] [address] CLIA: [id number] [employer] Supervisor: Cameron Vanegas M.D. Potassium molar conc 4.0 mmol/L Normal 3.5-5.1 [facility] Comment on above: Performed By: #### C BCDIF, PT, PTT, CMET, EDCTNI #### Unless otherwise noted, [place] [address] CLIA: [id number] [employer] Supervisor: Cameron Vanegas M.D. Sodium molar conc 141 mmol/L Normal 135-145 [facility] Comment on above: Performed By: #### C BCDIF, PT, PTT, CMET, EDCTNI #### Unless otherwise noted, all testing performed by [place] [address] CLIA: [id number] [employer] Supervisor: Cameron Vanegas M.D. Urea nitrogen mass conc 11 mg/dL Normal 8-25 [facility] Comment on above: Performed By: #### C BCDIF, PT, PTT, CMET, EDCTNI #### Unless otherwise noted, all testing performed by [place] [id number] CLIA: [id number] [employer] Supervisor: Cameron Vanegas M.D. CBC with Diffon 02-21-2018 Basophils #/vol (Bld) 0.1 K/mcL Normal 0-0.2 [facility] Comment on above: Performed By: #### C BCDIF, PT, PTT, CMET, EDCTNI #### Unless otherwise noted, all testing performed by [place] [phone] CLIA: [id number] [employer] Supervisor: Cameron Vanegas M.D. Basophils/100 WBC (Bld) 0.5 % Normal [facility] Comment on above: Performed By: #### C BCDIF, PT, PTT, CMET, EDCTNI #### Unless otherwise noted, [place] [address] CLIA: [id number] [employer] Supervisor: Cameron Vanegas M.D. Eosinophils #/vol (Bld) 0.3 K/mcL Normal 0-0.5 [facility] Comment on above: Performed By: #### C BCDIF, PT, PTT, CMET, EDCTNI #### Unless otherwise noted, [place] [address] CLIA: [id number] [employer] Supervisor: Cameron Vanegas M.D. Eosinophils/100 WBC (Bld) 2.3 % Normal [facility] Comment on above: Performed By: #### C BCDIF, PT, PTT, CMET, EDCTNI #### Unless otherwise noted, [place] [address] CLIA: [id number] [employer] Supervisor: Cameron Vanegas M.D. Erythrocyte distribution width Ratio (RBC) 13.9 % Normal 10-14.3 [facility] Comment on above: Performed By: #### C BCDIF, PT, PTT, CMET, EDCTNI #### Unless otherwise noted, [place] [address] CLIA: [id number] [employer] Supervisor: Cameron Vanegas M.D. Hematocrit Volume Fraction (Bld) 49.5 % High 37.9-49.2 [facility] Comment on above: Performed By: #### C BCDIF, PT, PTT, CMET, EDCTNI #### Unless otherwise noted, [place] [address] CLIA: [id number] [employer] Supervisor: Cameron Vanegas M.D. Hemoglobin mass conc (Bld) 16.9 g/dL Normal 12.9-16.9 [facility] Comment on above: Performed By: #### C BCDIF, PT, PTT, CMET, EDCTNI #### Unless otherwise noted, [place] [address] CLIA: [id number] [employer] Supervisor: Cameron Vanegas M.D. Lymphocytes #/vol (Bld) 1.5 K/mcL Normal 0.9-3.6 [facility] Comment on above: Performed By: #### C BCDIF, PT, PTT, CMET, EDCTNI #### Unless otherwise noted, [place] [address] CLIA: [id number] [employer] Supervisor: Cameron Vanegas M.D. Lymphocytes/100 WBC (Bld) 12.1 % Normal [facility] Comment on above: Performed By: #### C BCDIF, PT, PTT, CMET, EDCTNI #### Unless otherwise noted, [place] [address] CLIA: [id number] [employer] Supervisor: Cameron Vanegas M.D. MCH Entitic mass (RBC) 31.8 pg Normal 27.7-34.6 [facility] Comment on above: Performed By: #### C BCDIF, PT, PTT, CMET, EDCTNI #### Unless otherwise noted, [place] [address] CLIA: [id number] [employer] Supervisor: Cameron Vanegas M.D. MCHC mass conc (RBC) 34.2 g/dL Normal 32.9-35.5 [facility] Comment on above: Performed By: #### C BCDIF, PT, PTT, CMET, EDCTNI #### Unless otherwise noted, [place] [address] CLIA: [id number] [employer] Supervisor: Cameron Vanegas M.D. MCV Entitic volume (RBC) 92.8 fL Normal 82.8-99.3 [facility] Comment on above: Performed By: #### C BCDIF, PT, PTT, CMET, EDCTNI #### Unless otherwise noted, all testing performed by [id number] CLIA: [id number] [employer] Supervisor: Cameron Vanegas M.D. Monocytes #/vol (Bld) 0.7 K/mcL High 0.2-0.6 [facility] Comment on above: Performed By: #### C BCDIF, PT, PTT, CMET, EDCTNI #### Unless otherwise noted, all testing performed by [id number] CLIA: [id number] [employer] Supervisor: Cameron Vanegas M.D. Monocytes/100 WBC (Bld) 5.4 % Normal [facility] Comment on above: Performed By: #### C BCDIF, PT, PTT, CMET, EDCTNI #### Unless otherwise noted, all [place] [address] CLIA: [id number] [employer] Supervisor: Cameron Vanegas M.D. Neutrophils #/vol (Bld) 9.9 K/mcL High 1.4-6.8 [facility] Comment on above: Performed By: #### C BCDIF, PT, PTT, CMET, EDCTNI #### Unless otherwise noted, all testing performed [place] [address] CLIA: [id number] [employer] Supervisor: Cameron Vanegas M.D. Platelet mean volume Entitic volume (Bld) 9.0 fL Normal 6.6-10.8 [facility] Comment on above: Performed By: #### C BCDIF, PT, PTT, CMET, EDCTNI #### Unless otherwise noted, all [place] [address] CLIA: [id number] [employer] Supervisor: Cameron Vanegas M.D. Platelets #/vol (Bld) 214 K/mcL Normal 139-354 [facility] Comment on above: Performed By: #### C BCDIF, PT, PTT, CMET, EDCTNI #### Unless otherwise noted, [place] [address] CLIA: [id number] [employer] Supervisor: Cameron Vanegas M.D. RBC #/vol (Bld) 5.33 M/mcL Normal 4.0-5.5 [facility] Comment on above: Performed By: #### C BCDIF, PT, PTT, CMET, EDCTNI #### Unless otherwise noted, [place] [address] CLIA: [id number] [employer] Supervisor: Cameron Vanegas M.D. Segmented Neut % 79.7 % Normal [facility] Comment on above: Performed By: #### C BCDIF, PT, PTT, CMET, EDCTNI #### Unless otherwise noted, all [place] [address] CLIA: [id number] [employer] Supervisor: Cameron Vanegas M.D. WBC #/vol (Bld) 12.4 K/mcL High 3.6-10.4 [facility] Comment on above: Performed By: #### C BCDIF, PT, PTT, CMET, EDCTNI #### Unless otherwise noted, all testing performed by [address] [address] CLIA: [id number] [employer] Supervisor: Cameron Vanegas M.D. CHEST PA AND LATERALon 02-21 CHEST PA AND LATERAL Final Report * Accession No: [id number] Performed: Feb 21 2018 1:03PM Examination: [...] CASTRO M.D. Trans: n/a : cc: Normal [facility] ED Cardiac Troponin-Ion Troponin I.cardiac mass conc ng/mL Normal < 45 [facility] Comment on above: Result Comment: Elev ation [...] Unless otherwise noted, all testing performed by [address] [address] CLIA: [id number] [employer] Supervisor: Cameron Vanegas M.D. Influenza A,B Rapid Molecula kitty 02-21-2018 Influenza A Rapid Molecular Not Detected Normal Not Detected [facility] Comment on above: Performed By: #### C BCDIF, PT, PTT, CMET, EDCTNI #### Unless otherwise noted, all testing performed by [address] [address] CLIA: [id number] [employer] Supervisor: Cameron Vanegas M.D. Influenza B Rapid Molecular Not Detected Normal Not Detected [facility] Comment on above: Performed By: #### C BCDIF, PT, PTT, CMET, EDCTNI #### Unless otherwise noted, [place] [address] CLIA: [id number] [employer] Supervisor: Cameron Vanegas M.D. MRI CERVICAL SPINE W/O CONTo n 11-03-2017 MRI CERVICAL SPINE W/O CONT Final Report Accession No: [id number] Performed: Nov 03 2017 1:33PM Examination: [...] URBANO M.D. Trans: mad : cc: Normal [facility] OR MEDIUM JOINT ARTHROCE NTESISon 08-26-2017 [place] OR MEDIUM JOINT ARTHROCENTESIS Mariela Morgan MD 08/26/2017 2:29 PM MD Thomas Injection/Arthrocentes is Performed by: MARIELA MORGAN Authorized by: MARIELA MORGAN [facility] [id number] - Medium Joint Arthrocentesis: Consent given by: Patient Timeout performed at: 08/26/2017 2:28 PM Physician or proceduralist has discussed critical or nonroutine steps, procedure duration and anticipated blood loss: Yes Supporting Documentation: Indications: Pain Procedure Details: Location: Elbow Site: L lateral epicondyle Needle size: 22 G Medications: 40 mg methylPREDNISolone acetate 40 mg/mL Anesthetic used:: Lidocaine 1% PF Invalid Interpretation Code [facility] Alcohol, Medicalon 8 Ethanol mass conc Negative Normal [facility] Comment on above: Performed By: #### A LC #### Unless otherwise noted, all testing performed by [place] [id number] CLIA: [id number] [employer] Supervisor: Cameron Vanegas M.D. CBC with Diffon 08-04-2017 Basophils #/vol (Bld) 0.1 K/mcL Normal 0-0.2 [facility] Comment on above: Performed By: #### C BCDIF, PT, PTT, CMET, EDCTNI #### Unless otherwise noted, [place] [address] CLIA: [id number] [employer] Supervisor: Cameron Vanegas M.D. Basophils/100 WBC (Bld) 0.7 % Normal [facility] Comment on above: Performed By: #### C BCDIF, PT, PTT, CMET, EDCTNI #### Unless otherwise noted, [place] [address] CLIA: [id number] [employer] Supervisor: Cameron Vanegas M.D. Eosinophils #/vol (Bld) 0.3 K/mcL Normal 0-0.5 [facility] Comment on above: Performed By: #### C BCDIF, PT, PTT, CMET, EDCTNI #### Unless otherwise noted, [place] [address] CLIA: [id number] [employer] Supervisor: Cameron Vanegas M.D. Eosinophils/100 WBC (Bld) 3.0 % Normal [facility] Comment on above: Performed By: #### C BCDIF, PT, PTT, CMET, EDCTNI #### Unless otherwise noted, [place] [address] CLIA: [id number] [employer] Supervisor: Cameron Vanegas M.D. Erythrocyte distribution width Ratio (RBC) 13.4 % Normal 10-14.3 [facility] Comment on above: Performed By: #### C BCDIF, PT, PTT, CMET, EDCTNI #### Unless otherwise noted, [place] [address] CLIA: [id number] [employer] Supervisor: Cameron Vanegas M.D. Hematocrit Volume Fraction (Bld) 47.2 % Normal 37.9-49.2 [facility] Comment on above: Performed By: #### C BCDIF, PT, PTT, CMET, EDCTNI #### Unless otherwise noted, [place] [address] CLIA: [id number] [employer] Supervisor: Cameron Vanegas M.D. Hemoglobin mass conc (Bld) 16.4 g/dL Normal 12.9-16.9 [facility] Comment on above: Performed By: #### C BCDIF, PT, PTT, CMET, EDCTNI #### Unless otherwise noted, [place] [address] CLIA: [id number] [employer] Supervisor: Cameron Vanegas M.D. Lymphocytes #/vol (Bld) 1.7 K/mcL Normal 0.9-3.6 [facility] Comment on above: Performed By: #### C BCDIF, PT, PTT, CMET, EDCTNI #### Unless otherwise noted, [place] [address] CLIA: [id number] [employer] Supervisor: Cameron Vanegas M.D. Lymphocytes/100 WBC (Bld) 19.4 % Normal [facility] Comment on above: Performed By: #### C BCDIF, PT, PTT, CMET, EDCTNI #### Unless otherwise noted, [place] [address] CLIA: [id number] [employer] Supervisor: Cameron Vanegas M.D. MCH Entitic mass (RBC) 31.7 pg Normal 27.7-34.6 [facility] Comment on above: Performed By: #### C BCDIF, PT, PTT, CMET, EDCTNI #### Unless otherwise noted, [place] [address] CLIA: [id number] [employer] Supervisor: Cameron Vanegas M.D. MCHC mass conc (RBC) 34.8 g/dL Normal 32.9-35.5 [facility] Comment on above: Performed By: #### C BCDIF, PT, PTT, CMET, EDCTNI #### Unless otherwise noted, [place] [address] CLIA: [id number] [employer] Supervisor: Cameron Vanegas M.D. MCV Entitic volume (RBC) 91.0 fL Normal 82.8-99.3 [facility] Comment on above: Performed By: #### C BCDIF, PT, PTT, CMET, EDCTNI #### Unless otherwise noted, [place] [address] CLIA: [id number] [employer] Supervisor: Cameron Vanegas M.D. Monocytes #/vol (Bld) 0.5 K/mcL Normal 0.2-0.6 [facility] Comment on above: Performed By: #### C BCDIF, PT, PTT, CMET, EDCTNI #### Unless otherwise noted, [place] [address] CLIA: [id number] [employer] Supervisor: Cameron Vanegas M.D. Monocytes/100 WBC (Bld) 5.2 % Normal [facility] Comment on above: Performed By: #### C BCDIF, PT, PTT, CMET, EDCTNI #### Unless otherwise noted, [place] [address] CLIA: [id number] [employer] Supervisor: Cameron Vanegas M.D. Neutrophils #/vol (Bld) 6.3 K/mcL Normal 1.4-6.8 [facility] Comment on above: Performed By: #### C BCDIF, PT, PTT, CMET, EDCTNI #### Unless otherwise noted, [place] [address] CLIA: [id number] [employer] Supervisor: Cameron Vanegas M.D. Platelet mean volume Entitic volume (Bld) 8.5 fL Normal 6.6-10.8 [facility] Comment on above: Performed By: #### C BCDIF, PT, PTT, CMET, EDCTNI #### Unless otherwise noted, all [place] [address] CLIA: [id number] [employer] Supervisor: Cameron Vanegas M.D. Platelets #/vol (Bld) 200 K/mcL Normal 139-354 [facility] Comment on above: Performed By: #### C BCDIF, PT, PTT, CMET, EDCTNI #### Unless otherwise noted, [place] [address] CLIA: [id number] [employer] Supervisor: Cameron Vanegas M.D. RBC #/vol (Bld) 5.18 M/mcL Normal 4.0-5.5 [facility] Comment on above: Performed By: #### C BCDIF, PT, PTT, CMET, EDCTNI #### Unless otherwise noted, all [place] [address] CLIA: [id number] [employer] Supervisor: Cameron Vanegas M.D. Segmented Neut % 71.7 % Normal [facility] Comment on above: Performed By: #### C BCDIF, PT, PTT, CMET, EDCTNI #### Unless otherwise noted, all testing performed by [address] [address] CLIA: [id number] [employer] Supervisor: Cameron Vanegas M.D. WBC #/vol (Bld) 8.8 K/mcL Normal 3.6-10.4 [facility] Comment on above: Performed By: #### C BCDIF, PT, PTT, CMET, EDCTNI #### Unless otherwise noted, all testing performed by [address] [address] CLIA: [id number] [employer] Supervisor: Cameron Vanegas M.D. CT BRAIN W/O CONTRASTon 07-16 CT BRAIN W/O CONTRAST Final Report Accession No: [id number] Performed: Aug 04 2017 12:55PM Examination: [...] ROJAS D.O. Trans: sl : cc: Normal [facility] CT CHEST,ABDO,PELV- IV CONT ONLYon 08-04-2017 CT CHEST,ABDO,PELV- IV CONT ONLY Final Report Accession No: [id number] Performed: Aug 04 2017 12:58PM Examination: [...] MINH LANDRY D.O. Trans: apope : cc: [facility] CT SPINE CERVICAL W/O CONTRA STon 08-04-2017 CT SPINE CERVICAL W/O CONTRAST Final Report Accession No: [id number] Performed: Aug 04 2017 12:56PM Examination: [...] HA PÉREZ M.D. Trans: n/a : cc: [facility] CT SPINE LUMBAR RECONS ONLYo n 08-04-2017 CT SPINE LUMBAR RECONS ONLY Final Report Accession No: [id number] Performed: Aug 04 2017 2:28PM Examination: [...] KAUR M.D. Trans: gvanho : cc: Normal [facility] CT SPINE THORACIC RECONS ONL Yon 08-04-2017 CT SPINE THORACIC RECONS ONLY Final Report Accession No: [id number] Performed: Aug 04 2017 2:27PM Examination: [...] LANDRY D.O. Trans: dw : cc: Normal [facility] Comprehensive Metabolic Pane rashel 08-04-2017 Albumin mass conc 3.8 g/dL Normal 3.2-5.2 [facility] Comment on above: Performed By: #### C BCDIF, PT, PTT, CMET, EDCTNI #### Unless otherwise noted, all [place] [address] CLIA: [id number] [employer] Supervisor: Cameron Vanegas M.D. ALP enzyme act/vol 81 U/L Normal 40-150 [facility] Comment on above: Performed By: #### C BCDIF, PT, PTT, CMET, EDCTNI #### Unless otherwise noted, all [place] [address] CLIA: [id number] [employer] Supervisor: Cameron Vanegas M.D. ALT enzyme act/vol 38 U/L Normal 14-65 [facility] Comment on above: Result Comment: This test result might be falsely depressed or falsely elevated on samples drawn from patients taking Sulfasalazine and Sulfapyridine. Venipuncture should occur prior to taking either of these drugs. Performed By: #### C BCDIF, PT, PTT, CMET, EDCTNI #### Unless otherwise noted, all testing performed by [address] [place] [address] CLIA: [id number] [employer] Supervisor: Cameron Vanegas M.D. AST enzyme act/vol 25 U/L Normal 0-45 [facility] Comment on above: Result Comment: This test result might be falsely depressed or falsely elevated on samples drawn from patients taking Sulfasalazine and Sulfapyridine. Venipuncture should occur prior to taking either of these drugs. Performed By: #### C BCDIF, PT, PTT, CMET, EDCTNI #### Unless otherwise noted, all [place] [address] CLIA: [id number] [employer] Supervisor: Cameron Vanegas M.D. Bilirubin mass conc 0.6 mg/dL Normal 0.3-1.2 [facility] Comment on above: Performed By: #### C BCDIF, PT, PTT, CMET, EDCTNI #### Unless otherwise noted, [place] [address] CLIA: [id number] [employer] Supervisor: Cameron Vanegas M.D. Calcium mass conc 8.6 mg/dL Normal 8.4-10.2 [facility] Comment on above: Performed By: #### C BCDIF, PT, PTT, CMET, EDCTNI #### Unless otherwise noted, all [place] [address] CLIA: [id number] [employer] Supervisor: Cameron Vanegas M.D. Chloride molar conc 109 mmol/L High 98-108 [facility] Comment on above: Performed By: #### C BCDIF, PT, PTT, CMET, EDCTNI #### Unless otherwise noted, all [place] [address] CLIA: [id number] [employer] Supervisor: Cameron Vanegas M.D. CO2 molar conc 24 mmol/L Normal 21-32 [facility] Comment on above: Performed By: #### C BCDIF, PT, PTT, CMET, EDCTNI #### Unless otherwise noted, all [place] [address] CLIA: [id number] [employer] Supervisor: Cameron Vanegas M.D. Creatinine mass conc 1.10 mg/dL Normal 0.50-1.30 [facility] Comment on above: Performed By: #### C BCDIF, PT, PTT, CMET, EDCTNI #### Unless otherwise noted, all [place] [address] CLIA: [id number] [employer] Supervisor: Cameron Vanegas M.D. GFR/1.73 sq M predicted among blacks MDRD vol rate/area (S/P/Bld) mL/min/{1.73_m2} Normal [facility] Comment on above: Result Comment: Afri can [employer] GFR Calc Performed By: #### C BCDIF, PT, PTT, CMET, EDCTNI #### Unless otherwise noted, all [place] [address] CLIA: [id number] [employer] Supervisor: Cameron Vanegas M.D. GFR/1.73 sq M predicted among non-blacks MDRD vol rate/area (S/P/Bld) mL/min/{1.73_m2} [facility] Comment on above: Result Comment: Non- GFR [...] Unless otherwise noted, all testing performed by [place] [phone] CLIA: [id number] [employer] Supervisor: Cameron Vanegas M.D. Glucose mass conc 99 mg/dL Normal 70-99 [facility] Comment on above: Result Comment: This test result might be falsely depressed or falsely elevated on samples drawn from patients taking Sulfasalazine and Sulfapyridine. Venipuncture should occur prior to taking either of these drugs. Performed By: #### C BCDIF, PT, PTT, CMET, EDCTNI #### Unless otherwise noted, all testing performed by [id number] CLIA: [id number] [employer] Supervisor: Cameron Vanegas M.D. Potassium molar conc 4.2 mmol/L Normal 3.5-5.1 [facility] Comment on above: Performed By: #### C BCDIF, PT, PTT, CMET, EDCTNI #### Unless otherwise noted, all testing performed by [id number] CLIA: [id number] [employer] Supervisor: Cameron Vanegas M.D. Protein mass conc 7.6 g/dL Normal 6.0-8.0 [facility] Comment on above: Performed By: #### C BCDIF, PT, PTT, CMET, EDCTNI #### Unless otherwise noted, all testing performed by [id number] CLIA: [id number] [employer] Supervisor: Cameron Vanegas M.D. Sodium molar conc 140 mmol/L Normal 135-145 [facility] Comment on above: Performed By: #### C BCDIF, PT, PTT, CMET, EDCTNI #### Unless otherwise noted, all [place] [address] CLIA: [id number] [employer] Supervisor: Cameron Vanegas M.D. Urea nitrogen mass conc 10 mg/dL Normal 8-25 [facility] Comment on above: Performed By: #### C BCDIF, PT, PTT, CMET, EDCTNI #### Unless otherwise noted, all [place] [address] CLIA: [id number] [employer] Supervisor: Cameron Vanegas M.D. ED Cardiac Troponin-Ion 07-16 Troponin I.cardiac mass conc ng/mL Normal < 45 [facility] Comment on above: Result Comment: Elev ation [...] Unless otherwise noted, all testing performed by [place] [id number] CLIA: [id number] [employer] Supervisor: Cameron Vanegas M.D. ELBOWon 08-04-2017 ELBOW Final Report Accession No: [id number] Performed: Aug 04 2017 1:04PM Examination: [...] LEVI M.D. Trans: apope : cc: Normal [facility] Partial Thromboplastin Timeo n 08-04-2017 aPTT Coag time (Bld) 27 s Normal 23-34 [facility] Comment on above: Result Comment: Tommy salcido therapeutic range for PTT is 68-104 sec. Performed By: #### C BCDIF, PT, PTT, CMET, EDCTNI #### Unless otherwise noted, all [place] [address] CLIA: [id number] [employer] Supervisor: Cameron Vanegas M.D. Protimeon 08-04-2017 INR Coag RelTime (PPP) 0.98 {INR} Normal [facility] Comment on above: Result Comment: The [employer] recommended therapeutic range for Warfarin (Coumadin) therapy goals: PROPHYLAXIS/TREATMENT of: INR Venous Thrombosis, Pulmonary Embolism 2.0-3.0 Prevention of VTE (Orthopedic Surgery) 2.0-3.0 Atrial Fibrillation 2.0-3.0 Myocardial Infarction 2.0-3.0 Mechanical Prosthetic Heart Valves (Aortic position) 2.0-3.0 Mechanical Prosthetic Heart Valves (Mitral Position) 2.5-3.5 [employer] evidence-based clinical practice guidelines. CHEST. 2012 (9th ed) Performed By: #### C BCDIF, PT, PTT, CMET, EDCTNI #### Unless otherwise noted, [place] [address] CLIA: [id number] [employer] Supervisor: Cameron Vanegas M.D. Prothrombin time (PT) Coag time (PPP) 12.7 s Normal 11.8-14.3 [facility] Comment on above: Performed By: #### C BCDIF, PT, PTT, CMET, EDCTNI #### Unless otherwise noted, [place] [address] CLIA: [id number] [employer] Supervisor: Cameron Guilherme, M.D. SHOULDER 2 OR MORE VIEWSon 0 08-04-2017 SHOULDER 2 OR MORE VIEWS Final Report Accession No: [id number] Performed: Aug 04 2017 1:04PM Examination: [...] abnormality. Interpreting Physician: LONI LEVI M.D. Trans: md : cc: Normal [facility] Type and Screenon 08-04-2017 Type and Screen Negative [facility] Comment on above: Performed By: #### T YPSCR #### Unless otherwise noted, all testing performed by [place] [id number] CLIA: [id number] Electric[employer] Supervisor: Cameron Vanegas M.D. CT Hip w/o Contrast [...] 2:01 pmSigned by: Rayo Butts DO Technologist: [facility] Normal [facility] CT Spine Lumbar w/o Contrast on 06-11-2017 [...] liver.There is no retroperitoneal hemorrhage in the [id number]. Diverticulosis ofthe colon is noted.IMPRESSION:1. No acute [...] 2:01 pmSigned by: Rayo Butts DO Technologist: [facility] Alcohol, Medicalon 7 Ethanol Negative Invalid Interpretation Code G% [facility] CBC and Differentialon 01-04 Basophils 0.5 % Invalid Interpretation Code [facility] Basophils 0.0 K/mcL Invalid Interpretation Code 0 - 0.2 [facility] Eosinophils 0.2 K/mcL Invalid Interpretation Code 0 - 0.5 [facility] Erythrocytes (RBC) 5.40 M/mcL Invalid Interpretation Code 4.0 - 5.5 [facility] Hematocrit (HCT) 49.6 % High 37.9 - 49.2 % [facility] Hemoglobin (HGB) 17.0 g/dL High 12.9 - 16.9 g/dL [facility] Lymphocytes 2.7 K/mcL Invalid Interpretation Code 0.9 - 3.6 [facility] MCH 31.4 pg Invalid Interpretation Code 27.7 - 34.6 pg [facility] MCHC 34.2 g/dL Invalid Interpretation Code 32.9 - 35.5 g/dL [facility] MCV 91.9 fL Invalid Interpretation Code 82.8 - 99.3 [facility] Monocytes 0.5 K/mcL Invalid Interpretation Code 0.2 - 0.6 [facility] Neutrophils 6.2 K/mcL Invalid Interpretation Code 1.4 - 6.8 [facility] Platelet mean volume (PMV) 9.3 fL Invalid Interpretation Code 6.6 - 10.8 [facility] Platelets 246 K/mcL Invalid Interpretation Code 139 - 354 [facility] RDW-CA 14.0 % Invalid Interpretation Code 10 - 14.3 % [facility] Segmented Neut 63.8 % Invalid Interpretation Code [facility] T8 suppressor/100 cells 2.2 10*3/uL Invalid Interpretation Code [facility] T8 suppressor/100 cells 28.1 10*3/uL Invalid Interpretation Code [facility] T8 suppressor/100 cells 5.4 10*3/uL Invalid Interpretation Code [facility] WBC (Leukocytes) 9.7 K/mcL Invalid Interpretation Code 3.6 - 10.4 [facility] Comprehensive Metabolic Pane rashel 01-04-2017 Alanine aminotransferase (ALT) 54 U/L High 10 - 40 U/L [facility] Albumin 4.7 g/dL Invalid Interpretation Code 3.5 - 5 g/dL [facility] Alkaline phosphatase (ALP) 82 U/L Invalid Interpretation Code 25 - 100 U/L [facility] Aspartate aminotransferase (AST) 34 U/L Invalid Interpretation Code 10 - 40 U/L [facility] Calcium 8.8 mg/dL Invalid Interpretation Code 8.4 - 10.2 mg/dL [facility] Chloride 109 mmol/L Invalid Interpretation Code 99 - 111 mmol/L [facility] CO2 25 mmol/L Invalid Interpretation Code 23 - 32 mmol/L [facility] Creatinine 1.21 mg/dL High 0.6 - 1.2 mg/dL [facility] eGFR (black) mL/min/{1.73_m2} Invalid Interpretation Code ml/min/1.73sq .m [facility] eGFR (non-black) mL/min/{1.73_m2} Invalid Interpretation Code ml/min/1.73sq .m [facility] Glucose 95 mg/dL Invalid Interpretation Code 60 - 99 mg/dL [facility] Interpretation and review of laboratory results Abnormal Invalid Interpretation Code [facility] Potassium 3.8 mmol/L Invalid Interpretation Code 3.5 - 5.1 mmol/L [facility] Protein 8.0 g/dL Invalid Interpretation Code 6 - 8 g/dL [facility] Sodium 141 mmol/L Invalid Interpretation Code 136 - 145 mmol/L [facility] Urea nitrogen 9 mg/dL Invalid Interpretation Code 8 - 25 mg/dL [facility] Urine, bilirubin presence 0.8 mg/dL Invalid Interpretation Code 0.3 - 1.2 mg/dL [facility] Drugs of Abuse Screen, Urine on 01-04-2017 Amphetamine Screen, Urine None Detected Invalid Interpretation Code None Detected [facility] Barbiturate Screen, Urine None Detected Invalid Interpretation Code None Detected [facility] Benzodiazepine Screen, Urine None Detected Invalid Interpretation Code None Detected [facility] Cannabinoids Screen, Urine None Detected Invalid Interpretation Code None Detected [facility] Cocaine Screen, Urine Positive Abnormal None Detected [facility] DOA Cutoffs, UR See comment. Invalid Interpretation Code [facility] Interpretation and review of laboratory results Abnormal Invalid Interpretation Code [facility] Methadone Screen, Urine None Detected Invalid Interpretation Code None Detected [facility] Opiates Screen, Urine None Detected Invalid Interpretation Code None Detected [facility] Oxycodone Screen, Urine None Detected Invalid Interpretation Code None Detected [facility] Lipaseon 01-04-2017 Lipase 111 U/L High 8 - 78 U/L [facility] Urinalysison 01-04-2017 Amorphous, Crystal Rare Abnormal None Seen /HPF [facility] Bilirubin, Urine Negative Invalid Interpretation Code NEG;NEGATIVE [facility] Blood, Urine Negative Invalid Interpretation Code NEG;NEGATIVE [facility] Cast, Hyaline 30 /LPF High 0 - 5 [facility] Mucus, Urine Rare Abnormal None Seen [facility] Nitrite, Urine Negative Invalid Interpretation Code NEG;NEGATIVE [facility] Protein, Urine Negative Invalid Interpretation Code NEG;NEGATIVE mg/dL [facility] RBCs, Urine 1 /HPF Invalid Interpretation Code 0 - 5 [facility] Urine, bacteria in sediment Few Abnormal NS;RARE /HPF [facility] Urine, character Hazy Invalid Interpretation Code [facility] Urine, color Yellow Invalid Interpretation Code [facility] Urine, glucose presence Negative Invalid Interpretation Code NEG;NEGATIVE mg/dL [facility] Urine, ketones presence Negative Invalid Interpretation Code NEG;NEGATIVE mg/dL [facility] Urine, leukocyte esterase presence Negative Invalid Interpretation Code Negative [facility] Urine, pH 5.0 [pH] Invalid Interpretation Code 4.5 - 8.0 [facility] Urine, specific gravity 1.031 1 High 1.003 - 1.029 [facility] Urobilinogen, Urine < 2.0 Invalid Interpretation Code <2 mg/dL [facility] WBCs, Urine 3 /HPF Invalid Interpretation Code 0 - 5 [facility] Vital Signs Date Time Vital Sign Value Performing Clinician Facility 01-28-2025 19:05-0400 Body temperature 97.4 [degF] Dr. Darren Bahena MD Work Phone: 4(345)[phone] [place] [address] 01-28-2025 19:05-0400 Diastolic blood pressure 89 mm[Hg] Dr. Darren Bahena MD Work Phone: 5(877)781-424652 [place] [address] 01-28-2025 19:05-0400 Heart rate 88 /min Dr. Darren Bahena MD Work Phone: 5(804)173-732052 [place] [address] 01-28-2025 19:05-0400 Respiratory rate 16 /min Dr. Darren Bahena MD Work Phone: 3(436)856-575652 [place] [address] 01-28-2025 19:05-0400 SaO2% (BldA) [Mass fraction] 99 % Dr. Darren Bahena MD Work Phone: 0(355)094-847452 [place] [address] 01-28-2025 19:05-0400 Systolic blood pressure 169 mm[Hg] Dr. Darren Bahena MD Work Phone: 4(324)152-850898 [address] 01-28-2025 16:46-0400 Body height 182.[address] Darren Bahena MD Work Phone: 3(466)822-048852 [place] [address] 01-28-2025 16:46-0400 Body mass index (BMI) [Ratio] 27.7 kg/m2 Dr. Darren Bahena MD Work Phone: 3(822)127-621952 [place] [address] 01-28-2025 16:46-0400 Body weight 92.[address] Darren Bahena MD Work Phone: 8(783)[phone] [address] 09-11-2024 17:30-0400 Respiratory rate 16 /min Brooke Hernandes MD Work Phone: [facility] 09-11-2024 07:35-0400 Body temperature 98.49 [degF] Brooke Hernandes MD Work Phone: [facility] 09-11-2024 07:35-0400 Diastolic blood pressure 71 mm[Hg] Brooke Hernandes MD Work Phone: [facility] 09-11-2024 07:35-0400 Heart rate 98 /min Brooke Hernandes MD Work Phone: [facility] 09-11-2024 07:35-0400 SaO2% (BldA) [Mass fraction] 94 % Brooke Hernandes MD Work Phone: [facility] 09-11-2024 07:35-0400 Systolic blood pressure 114 mm[Hg] Brooke Hernandes MD Work Phone: [facility] 09-06-2024 17:42-0400 Body height 182.9 cm Brooke Hernandes MD Work Phone: [facility] 09-06-2024 17:42-0400 Body mass index (BMI) [Ratio] 27.8 kg/m2 Brooke Hernandes MD Work Phone: [facility] 09-06-2024 17:42-0400 Body weight 92.99 kg Brooke Hernandes MD Work Phone: [facility] 09-06-2024 12:33-0400 Body temperature 97.81 [degF] Keri Keenan PA-C Work Phone: [facility] 09-06-2024 12:33-0400 Diastolic blood pressure 77 mm[Hg] Keri Keenan PA-C Work Phone: [facility] 09-06-2024 12:33-0400 Heart rate 86 /min Keri Keenan PA-C Work Phone: [facility] 09-06-2024 12:33-0400 Respiratory rate 18 /min Keri Keenan PA-C Work Phone: [facility] 09-06-2024 12:33-0400 SaO2% (BldA) [Mass fraction] 97 % Keri Hussein PA-C Work Phone: [facility] 09-06-2024 12:33-0400 Systolic blood pressure 131 mm[Hg] Keri Hussein PA-C Work Phone: [facility] 08-11-2024 15:06-0400 Diastolic blood pressure 87 mm[Hg] [facility] DO Work Phone: [employer] 08-11-2024 15:06-0400 Heart rate 82 /min [employer] Work Phone: [employer] 08-11-2024 15:06-0400 Respiratory rate 18 /min [employer] Work Phone: [employer] 08-11-2024 15:06-0400 SaO2% (BldA) [Mass fraction] 97 % [employer] Work Phone: [employer] 08-11-2024 15:06-0400 Systolic blood pressure 130 mm[Hg] [employer] Work Phone: [employer] 08-11-2024 11:25-0400 Body temperature 97.7 [degF] [employer] Work Phone: [employer] 05-12-2024 08:10-0500 Body height 182.9 cm Jeremy Segovia MD Work Phone: [facility] 05-12-2024 08:10-0500 Body mass index (BMI) [Ratio] 29.02 kg/m2 Jeremy Segovia MD Work Phone: [facility] 05-12-2024 08:10-0500 Body weight 97.07 kg Jeremy Segovia MD Work Phone: [facility] 05-12-2024 08:10-0500 Diastolic blood pressure 82 mm[Hg] Jeremy Segovia MD Work Phone: [facility] 05-12-2024 08:10-0500 Heart rate 71 /min Jeremy Segovia MD Work Phone: [facility] 05-12-2024 08:10-0500 SaO2% (BldA) [Mass fraction] 93 % Jeremy Segovia MD Work Phone: [facility] 05-12-2024 08:10-0500 Systolic blood pressure 135 mm[Hg] Jeremy Segovia MD Work Phone: [facility] 02-07-2024 14:07-0400 Body height 182.9 cm Jacquelyn Hannon MD Work Phone: [facility] 02-07-2024 14:07-0400 Body mass index (BMI) [Ratio] 29.84 kg/m2 Jacquelyn Hannon MD Work Phone: [facility] 02-07-2024 14:07-0400 Body temperature 100.09 [degF] Jacquelyn Hannon MD Work Phone: [facility] 02-07-2024 14:07-0400 Body weight 99.79 kg Jacquelyn Hannon MD Work Phone: [facility] 02-07-2024 14:07-0400 Diastolic blood pressure 86 mm[Hg] Jacquelyn Hannon MD Work Phone: [facility] 02-07-2024 14:07-0400 Heart rate 78 /min Jacquelyn Hannon MD Work Phone: [facility] 02-07-2024 14:07-0400 Respiratory rate 16 /min Jacquelyn Hannon MD Work Phone: [facility] 02-07-2024 14:07-0400 SaO2% (BldA) [Mass fraction] 96 % Jacquelyn Hannon MD Work Phone: [facility] 02-07-2024 14:07-0400 Systolic blood pressure 131 mm[Hg] Jacquelyn Hannon MD Work Phone: [facility] 01-26-2024 12:58-0400 Blood Pressure Location Paulette CARBALLO [facility] 01-26-2024 12:58-0400 Diastolic blood pressure 82 mm[Hg] Paulette ROBUCK [facility] 01-26-2024 12:58-0400 Heart rate 69 /min Paulette ROBUCK [facility] 01-26-2024 12:58-0400 Respiratory rate 17 /min Paulette ROBUCK [facility] 01-26-2024 12:58-0400 SaO2% (BldA) [Mass fraction] 96 % Paulette ROBUCK [facility] 01-26-2024 12:58-0400 Systolic blood pressure 128 mm[Hg] Paulette ROBUCK [facility] 10-28-2023 14:18-0400 Blood Pressure Location Paulette ROBUCK [facility] 10-28-2023 14:18-0400 Diastolic blood pressure 81 mm[Hg] Paulette ROBUCK [facility] 10-28-2023 14:18-0400 Heart rate 81 /min Paulette ROBUCK [facility] 10-28-2023 14:18-0400 SaO2% (BldA) [Mass fraction] 96 % Paulette ROBUCK [facility] 10-28-2023 14:18-0400 Systolic blood pressure 131 mm[Hg] Paulette ROBUCK [facility] 09-27-2023 14:19-0400 Blood Pressure Location Rayo JAIMES [facility] 09-27-2023 14:19-0400 Body temperature 98.24 [degF] Rayo JAIMES [facility] 09-27-2023 14:19-0400 Diastolic blood pressure 83 mm[Hg] Rayo JAIMES [facility] 09-27-2023 14:19-0400 Heart rate 86 /min Rayo JAIMES [facility] 09-27-2023 14:19-0400 Respiratory rate 18 /min Rayo JAIMES [facility] 09-27-2023 14:19-0400 SaO2% (BldA) [Mass fraction] 98 % Rayo JAIMES [facility] 09-27-2023 14:19-0400 Systolic blood pressure 123 mm[Hg] Rayo JAIMES [facility] 05-05-2023 08:59-0500 Blood Pressure Location [place] Ebonytenauer [facility] 05-05-2023 08:59-0500 Diastolic blood pressure 81 mm[Hg] El[place] Wittenauer [facility] 05-05-2023 08:59-0500 Heart rate 91 /min Vanessa Wittenauer [facility] 05-05-2023 08:59-0500 SaO2% (BldA) [Mass fraction] 95 % [place] Wittenauer [facility] 05-05-2023 08:59-0500 Systolic blood pressure 133 mm[Hg] Vanessa Wittenauer [facility] 01-20-2023 04:47-0400 Heart rate 82 /min Mariel Palacios MD Work Phone: [facility] 01-20-2023 04:47-0400 Respiratory rate 27 /min Mariel Palacios MD Work Phone: [facility] 01-20-2023 04:47-0400 SaO2% (BldA) [Mass fraction] 95 % Mariel Palaicos MD Work Phone: [facility] 01-20-2023 03:47-0400 Body height 182.9 cm Mariel Palacios MD Work Phone: [facility] 01-20-2023 03:47-0400 Body mass index (BMI) [Ratio] 31.17 kg/m2 Mariel Palacios MD Work Phone: [facility] 01-20-2023 03:47-0400 Body temperature 98.49 [degF] Mariel Palacios MD Work Phone: [facility] 01-20-2023 03:47-0400 Body weight 104.24 kg Mariel Palacois MD Work Phone: [facility] 01-20-2023 03:47-0400 Diastolic blood pressure 98 mm[Hg] Mariel Palacios MD Work Phone: [facility] 01-20-2023 03:47-0400 Systolic blood pressure 148 mm[Hg] Mariel Palacios MD Work Phone: [facility] 01-11-2023 10:53-0400 Blood Pressure Location Paulette CARBALLO [facility] 01-11-2023 10:53-0400 Diastolic blood pressure 68 mm[Hg] Paulette CARBALLO [facility] 01-11-2023 10:53-0400 Heart rate 63 /min Paulette CARBALLO [facility] 01-11-2023 10:53-0400 SaO2% (BldA) [Mass fraction] 98 % Paulette CARBALLO [facility] 01-11-2023 10:53-0400 Systolic blood pressure 104 mm[Hg] Paulette CARBALLO [facility] 12-11-2022 11:04-0400 Body mass index (BMI) [Ratio] 31.63 kg/m2 Julio C Zheng PA-C Work Phone: [facility] 12-11-2022 11:04-0400 Body temperature 98.1 [degF] Julio C Zheng PA-C Work Phone: [facility] 12-11-2022 11:04-0400 Body weight 105.78 kg Julio C Zheng PA-C Work Phone: [facility] 12-11-2022 11:04-0400 Diastolic blood pressure 79 mm[Hg] Julio C Interianoester PA-C Work Phone: [facility] 12-11-2022 11:04-0400 Heart rate 70 /min Julio C Zheng PA-C Work Phone: [facility] 12-11-2022 11:04-0400 SaO2% (BldA) [Mass fraction] 97 % Julio C Marce PA-C Work Phone: [facility] 12-11-2022 11:04-0400 Systolic blood pressure 122 mm[Hg] Julio C Zheng PA-C Work Phone: [facility] 10-02-2022 12:16-0400 Body temperature 98.01 [degF] Tutu Mancera RN [facility] 10-02-2022 12:16-0400 Diastolic blood pressure 80 mm[Hg] Tutu Mancera RN [facility] 10-02-2022 12:16-0400 Heart rate 76 /min Tutu Mancera RN [facility] 10-02-2022 12:16-0400 Respiratory rate 12 /min Tutu Mancera RN [facility] 10-02-2022 12:16-0400 SaO2% (BldA) [Mass fraction] 98 % Tutu Mancera RN [facility] 10-02-2022 12:16-0400 Systolic blood pressure 122 mm[Hg] Tutu Mancera RN [facility] 09-28-2022 09:39-0400 Body height 182.9 cm Babita Valdez PA-C Work Phone: [facility] 09-28-2022 09:39-0400 Body mass index (BMI) [Ratio] 32.28 kg/m2 Babita Valdez PA-C Work Phone: [facility] 09-28-2022 09:39-0400 Body temperature 97.59 [degF] Babita Valdez PA-C Work Phone: [facility] 09-28-2022 09:39-0400 Body weight 107.96 kg Babita Valdez PA-C Work Phone: [facility] 09-28-2022 09:39-0400 Diastolic blood pressure 75 mm[Hg] Babita Valdez PA-C Work Phone: [facility] 09-28-2022 09:39-0400 Heart rate 75 /min Babitafabio Valdez PA-C Work Phone: [facility] 09-28-2022 09:39-0400 SaO2% (BldA) [Mass fraction] 94 % Babitafabio Valdez PA-C Work Phone: [facility] 09-28-2022 09:39-0400 Systolic blood pressure 118 mm[Hg] Babita Valdez PA-C Work Phone: [facility] 09-23-2022 08:55-0400 Body temperature 97.9 [degF] Tutu Mancera RN [facility] 09-23-2022 08:55-0400 Diastolic blood pressure 70 mm[Hg] uTtu Mancera RN [facility] 09-23-2022 08:55-0400 Heart rate 60 /min Tutu Mancera RN [facility] 09-23-2022 08:55-0400 Respiratory rate 12 /min Tutu Mancera RN [facility] 09-23-2022 08:55-0400 SaO2% (BldA) [Mass fraction] 97 % Tutu Mancera RN [facility] 09-23-2022 08:55-0400 Systolic blood pressure 112 mm[Hg] Tutu Mancera RN [facility] 09-21-2022 10:26-0400 Diastolic blood pressure 90 mm[Hg] Babita Valdez PA-C Work Phone: [facility] 09-21-2022 10:26-0400 Heart rate 82 /min Babita Valdez PA-C Work Phone: [facility] 09-21-2022 10:26-0400 Systolic blood pressure 125 mm[Hg] Babita Valdez PA-C Work Phone: [facility] 09-21-2022 10:19-0400 Body height 182.9 cm Babita Valdez PA-C Work Phone: [facility] 09-21-2022 10:19-0400 Body mass index (BMI) [Ratio] 32.55 kg/m2 Babita Valdez PA-C Work Phone: [facility] 09-21-2022 10:19-0400 Body weight 108.86 kg Babitafabio Valdez PA-C Work Phone: [facility] 09-21-2022 10:19-0400 SaO2% (BldA) [Mass fraction] 95 % Babita Valdez PA-C Work Phone: [facility] 09-18-2022 09:16-0400 Body temperature 98.49 [degF] Tutu Mancera RN [facility] 09-18-2022 09:16-0400 Diastolic blood pressure 84 mm[Hg] Tutu Mancera RN [facility] 09-18-2022 09:16-0400 Heart rate 86 /min Tutu Mancera RN [facility] 09-18-2022 09:16-0400 Respiratory rate 12 /min Tutu Mancera RN [facility] 09-18-2022 09:16-0400 SaO2% (BldA) [Mass fraction] 97 % Tutu Mancera RN [facility] 09-18-2022 09:16-0400 Systolic blood pressure 120 mm[Hg] Tutu Mancera RN [facility] 09-16-2022 11:53-0400 Body height 182.9 cm Abigail Page MD Work Phone: [facility] 09-16-2022 11:53-0400 Body mass index (BMI) [Ratio] 32.67 kg/m2 Abigail Page MD Work Phone: [facility] 09-16-2022 11:53-0400 Body temperature 99.1 [degF] Abigail Page MD Work Phone: [facility] 09-16-2022 11:53-0400 Body weight 109.27 kg Abigail Page MD Work Phone: [facility] 09-16-2022 11:53-0400 Diastolic blood pressure 74 mm[Hg] Abigail Page MD Work Phone: [facility] 09-16-2022 11:53-0400 Heart rate 78 /min Abigail Page MD Work Phone: [facility] 09-16-2022 11:53-0400 Respiratory rate 16 /min Abigail Page MD Work Phone: [facility] 09-16-2022 11:53-0400 SaO2% (BldA) [Mass fraction] 93 % Abigail Page MD Work Phone: [facility] 09-16-2022 11:53-0400 Systolic blood pressure 126 mm[Hg] Abigail Page MD Work Phone: [facility] 09-14-2022 10:59-0400 Body height 182.9 cm Julio C Zheng PA-C Work Phone: [facility] 09-14-2022 10:59-0400 Body mass index (BMI) [Ratio] 32.82 kg/m2 Julio C Zheng PA-C Work Phone: [facility] 09-14-2022 10:59-0400 Body temperature 97.9 [degF] Julio C Zheng PA-C Work Phone: [facility] 09-14-2022 10:59-0400 Body weight 109.77 kg Julio C Zheng PA-C Work Phone: [facility] 09-14-2022 10:59-0400 Diastolic blood pressure 88 mm[Hg] Julio C Zheng PA-C Work Phone: [facility] 09-14-2022 10:59-0400 Heart rate 79 /min Julio C Zheng PA-C Work Phone: [facility] 09-14-2022 10:59-0400 SaO2% (BldA) [Mass fraction] 99 % Julio C Zheng PA-C Work Phone: [facility] 09-14-2022 10:59-0400 Systolic blood pressure 137 mm[Hg] Julio C Interianoester PA-C Work Phone: [facility] 09-11-2022 10:31-0400 Body temperature 99.3 [degF] Tutu Mancera RN [facility] 09-11-2022 10:31-0400 Diastolic blood pressure 60 mm[Hg] Tutu Mancera RN [facility] 09-11-2022 10:31-0400 Heart rate 64 /min Tutu Mancera RN [facility] 09-11-2022 10:31-0400 Respiratory rate 12 /min Tutu Mancera RN [facility] 09-11-2022 10:31-0400 SaO2% (BldA) [Mass fraction] 97 % Tutu Mancera RN [facility] 09-11-2022 10:31-0400 Systolic blood pressure 112 mm[Hg] Tutu Mancera RN [facility] 09-10-2022 10:21-0400 Body height 182.9 cm Wood Eng MD Work Phone: [facility] 09-10-2022 10:21-0400 Body mass index (BMI) [Ratio] 32.41 kg/m2 Wood Eng MD Work Phone: [facility] 09-10-2022 10:21-0400 Body temperature 97.81 [degF] Wood Eng MD Work Phone: [facility] 09-10-2022 10:21-0400 Body weight 108.41 kg Wood Eng MD Work Phone: [facility] 09-10-2022 10:21-0400 Diastolic blood pressure 84 mm[Hg] Wood Eng MD Work Phone: [facility] 09-10-2022 10:21-0400 Heart rate 79 /min Wood Eng MD Work Phone: [facility] 09-10-2022 10:21-0400 SaO2% (BldA) [Mass fraction] 93 % Wood Eng MD Work Phone: [facility] 09-10-2022 10:21-0400 Systolic blood pressure 128 mm[Hg] Wood Eng MD Work Phone: [facility] 09-07-2022 10:12-0400 Body height 182.9 cm Maryse Melton PA-C Work Phone: [facility] 09-07-2022 10:12-0400 Body mass index (BMI) [Ratio] 32.01 kg/m2 Maryse Melton PA-C Work Phone: [facility] 09-07-2022 10:12-0400 Body temperature 98.71 [degF] Maryse Melton PA-C Work Phone: [facility] 09-07-2022 10:12-0400 Body weight 107.05 kg Maryse Melton PA-C Work Phone: [facility] 09-07-2022 10:12-0400 Diastolic blood pressure 80 mm[Hg] Maryse Melton PA-C Work Phone: [facility] 09-07-2022 10:12-0400 Heart rate 80 /min Maryse Melton PA-C Work Phone: [facility] 09-07-2022 10:12-0400 SaO2% (BldA) [Mass fraction] 96 % Maryse Melton PA-C Work Phone: [facility] 09-07-2022 10:12-0400 Systolic blood pressure 112 mm[Hg] Maryse Melton PA-C Work Phone: [facility] 09-04-2022 10:08-0400 Body temperature 98.01 [degF] Tutu Mancera RN [facility] 09-04-2022 10:08-0400 Diastolic blood pressure 62 mm[Hg] Tutu Mancera SG [facility] 09-04-2022 10:08-0400 Heart rate 81 /min Tutu Mancera RN [facility] 09-04-2022 10:08-0400 Respiratory rate 12 /min Tutu Mancera RN [facility] 09-04-2022 10:08-0400 SaO2% (BldA) [Mass fraction] 98 % Tutu Mancera RN [facility] 09-04-2022 10:08-0400 Systolic blood pressure 100 mm[Hg] Tutu Mancera RN [facility] 08-31-2022 10:41-0400 Body height 182.9 cm Julio C Zheng PA-C Work Phone: [facility] 08-31-2022 10:41-0400 Body mass index (BMI) [Ratio] 32.55 kg/m2 Julio C Zheng PA-C Work Phone: [facility] 08-31-2022 10:41-0400 Body temperature 98.2 [degF] Julio C Zheng PA-C Work Phone: [facility] 08-31-2022 10:41-0400 Body weight 108.86 kg Julio C Zheng PA-C Work Phone: [facility] 08-31-2022 10:41-0400 Diastolic blood pressure 83 mm[Hg] Julio C Zheng PA-C Work Phone: [facility] 08-31-2022 10:41-0400 Heart rate 81 /min Julio C Zheng PA-C Work Phone: [facility] 08-31-2022 10:41-0400 SaO2% (BldA) [Mass fraction] 95 % Julio C Zheng PA-C Work Phone: [facility] 08-31-2022 10:41-0400 Systolic blood pressure 128 mm[Hg] Julio C Zheng PA-C Work Phone: [facility] 08-26-2022 09:17-0400 Body temperature 98.29 [degF] Mariela García RN [facility] 08-26-2022 09:17-0400 Diastolic blood pressure 76 mm[Hg] Mariela García RN [facility] 08-26-2022 09:17-0400 Heart rate 73 /min Mariela García RN [facility] 08-26-2022 09:17-0400 Respiratory rate 16 /min Mariela García RN [facility] 08-26-2022 09:17-0400 SaO2% (BldA) [Mass fraction] 97 % Mariela García RN [facility] 08-26-2022 09:17-0400 Systolic blood pressure 116 mm[Hg] Mariela García RN [facility] 08-18-2022 13:11-0400 Body height 182.9 cm Maryse Melton PA-C Work Phone: [facility] 08-18-2022 13:11-0400 Body mass index (BMI) [Ratio] 33.36 kg/m2 Maryse Melton PA-C Work Phone: [facility] 08-18-2022 13:11-0400 Body temperature 98.01 [degF] Maryse Melton PA-C Work Phone: [facility] 08-18-2022 13:11-0400 Body weight 111.58 kg Maryse Melton PA-C Work Phone: [facility] 08-18-2022 13:11-0400 Diastolic blood pressure 75 mm[Hg] Maryse Melton PA-C Work Phone: [facility] 08-18-2022 13:11-0400 Heart rate 91 /min Maryse Melton PA-C Work Phone: [facility] 08-18-2022 13:11-0400 SaO2% (BldA) [Mass fraction] 95 % Maryse Melton PA-C Work Phone: [facility] 08-18-2022 13:11-0400 Systolic blood pressure 114 mm[Hg] Maryse Melton PA-C Work Phone: [facility] 08-13-2022 10:56-0400 Body height 182.9 cm Tutu Mancera RN [facility] 08-13-2022 10:56-0400 Body mass index (BMI) [Ratio] 31.87 kg/m2 Tutu Mancera RN [facility] 08-13-2022 10:56-0400 Body temperature 98.49 [degF] Tutu Mancera RN [facility] 08-13-2022 10:56-0400 Body weight 106.59 kg Tutu Mancera RN [facility] 08-13-2022 10:56-0400 Diastolic blood pressure 82 mm[Hg] Tutu Mancera RN [facility] 08-13-2022 10:56-0400 Heart rate 103 /min Tutu Mancera RN [facility] 08-13-2022 10:56-0400 Respiratory rate 14 /min Tutu Mancera RN [facility] 08-13-2022 10:56-0400 SaO2% (BldA) [Mass fraction] 97 % Tutu Mancera RN [facility] 08-13-2022 10:56-0400 Systolic blood pressure 130 mm[Hg] Tutu Mancera RN [facility] 08-05-2022 10:05-0400 Body height 182.9 cm Mariela Morgan MD Work Phone: [facility] 08-05-2022 10:05-0400 Body mass index (BMI) [Ratio] 32.28 kg/m2 Mariela Morgan MD Work Phone: [facility] 08-05-2022 10:05-0400 Body weight 107.96 kg Mariela Morgan MD Work Phone: [facility] 08-03-2022 10:02-0400 Body height 182.9 cm Wood Eng MD Work Phone: [facility] 08-03-2022 10:02-0400 Body mass index (BMI) [Ratio] 32.28 kg/m2 Wood Eng MD Work Phone: [facility] 08-03-2022 10:02-0400 Body weight 107.96 kg Wood Eng MD Work Phone: [facility] 08-03-2022 10:02-0400 Diastolic blood pressure 82 mm[Hg] Wood Eng MD Work Phone: [facility] 08-03-2022 10:02-0400 Heart rate 87 /min Wood Eng MD Work Phone: [facility] 08-03-2022 10:02-0400 SaO2% (BldA) [Mass fraction] 93 % Wood Eng MD Work Phone: [facility] 08-03-2022 10:02-0400 Systolic blood pressure 120 mm[Hg] Wood Eng MD Work Phone: [facility] 07-13-2022 11:21-0500 Diastolic blood pressure 82 mm[Hg] Paulette ROBUCK [facility] 07-13-2022 11:21-0500 Mean blood pressure 95 mm[Hg] Paulette ROBUCK [facility] 07-13-2022 11:21-0500 Systolic blood pressure 120 mm[Hg] Paulette ROBUCK [facility] 07-13-2022 11:13-0500 Blood Pressure Location Paulette ROBUCK [facility] 07-13-2022 11:13-0500 Diastolic blood pressure 94 mm[Hg] Paulette ROBUCK [facility] 07-13-2022 11:13-0500 Heart rate 90 /min Paulette ROBUCK [facility] 07-13-2022 11:13-0500 SaO2% (BldA) [Mass fraction] 95 % Paulette ROBUCK [facility] 07-13-2022 11:13-0500 Systolic blood pressure 124 mm[Hg] Paulette ROBUCK [facility] 07-07-2022 05:07-0500 Diastolic blood pressure 95 mm[Hg] Chema Webber MD Work Phone: [facility] 07-07-2022 05:07-0500 Heart rate 78 /min Chema Webber MD Work Phone: [facility] 07-07-2022 05:07-0500 Respiratory rate 16 /min Chema Webber MD Work Phone: [facility] 07-07-2022 05:07-0500 SaO2% (BldA) [Mass fraction] 98 % Chema Webber MD Work Phone: [facility] 07-07-2022 05:07-0500 Systolic blood pressure 133 mm[Hg] Chema Webber MD Work Phone: [facility] 07-07-2022 00:56-0500 Body height 182.9 cm Chema Webber MD Work Phone: [facility] 07-07-2022 00:55-0500 Body temperature 97.7 [degF] Chema Webber MD Work Phone: [facility] 07-01-2022 09:35-0500 Body height 182.9 cm Abigail Page MD Work Phone: [facility] 07-01-2022 09:35-0500 Body mass index (BMI) [Ratio] 32.33 kg/m2 Abigail Page MD Work Phone: [facility] 07-01-2022 09:35-0500 Body temperature 98.29 [degF] Abigail Page MD Work Phone: [facility] 07-01-2022 09:35-0500 Body weight 108.14 kg Abigail Page MD Work Phone: [facility] 07-01-2022 09:35-0500 Diastolic blood pressure 79 mm[Hg] Abigail Page MD Work Phone: [facility] 07-01-2022 09:35-0500 Heart rate 81 /min Abigail Page MD Work Phone: [facility] 07-01-2022 09:35-0500 SaO2% (BldA) [Mass fraction] 95 % Abigail Page MD Work Phone: [facility] 07-01-2022 09:35-0500 Systolic blood pressure 121 mm[Hg] Abigail Page MD Work Phone: [facility] 06-26-2022 09:28-0500 Body height 182.9 cm Wood Eng MD Work Phone: [facility] 06-26-2022 09:28-0500 Body mass index (BMI) [Ratio] 31.46 kg/m2 Wood Eng MD Work Phone: [facility] 06-26-2022 09:28-0500 Body weight 105.23 kg Wood Eng MD Work Phone: [facility] 06-26-2022 09:28-0500 Diastolic blood pressure 82 mm[Hg] Wood Eng MD Work Phone: [facility] 06-26-2022 09:28-0500 Heart rate 77 /min Wood Eng MD Work Phone: [facility] 06-26-2022 09:28-0500 Systolic blood pressure 120 mm[Hg] Wood Eng MD Work Phone: [facility] 06-10-2022 11:30-0500 Diastolic blood pressure 84 mm[Hg] Paulette ROBUCK [facility] 06-10-2022 11:30-0500 Mean blood pressure 101 mm[Hg] Paulette ROBUCK [facility] 06-10-2022 11:30-0500 Systolic blood pressure 134 mm[Hg] Paulette ROBUCK [facility] 06-10-2022 11:26-0500 Blood Pressure Location Paulette ROBUCK [facility] 06-10-2022 11:26-0500 Diastolic blood pressure 92 mm[Hg] Paulette ROBUCK [facility] 06-10-2022 11:26-0500 Heart rate 96 /min Paulette ROBUCK [facility] 06-10-2022 11:26-0500 SaO2% (BldA) [Mass fraction] 96 % Paulette ROBUCK [facility] 06-10-2022 11:26-0500 Systolic blood pressure 138 mm[Hg] Paulette ROBUCK [facility] 01-27-2022 12:57-0400 Blood Pressure Location Paulette ROBUCK [facility] 01-27-2022 12:57-0400 Body temperature 98.06 [degF] Paulette ROBUCK [facility] 01-27-2022 12:57-0400 Diastolic blood pressure 84 mm[Hg] Paulette ROBUCK [facility] 01-27-2022 12:57-0400 Heart rate 62 /min Paulette ROBUCK [facility] 01-27-2022 12:57-0400 SaO2% (BldA) [Mass fraction] 94 % Paulette ROBUCK [facility] 01-27-2022 12:57-0400 Systolic blood pressure 134 mm[Hg] Paulette ROBUCK [facility] 12-29-2021 07:57-0400 Body height 182.9 cm Caridad Ream [employer] Work Phone: [facility] 12-29-2021 07:57-0400 Body mass index (BMI) [Ratio] 29.97 kg/m2 Caridad Ream [employer] Work Phone: [facility] 12-29-2021 07:57-0400 Body weight 100.25 kg Caridad Ream [employer] Work Phone: [facility] 12-29-2021 07:57-0400 Diastolic blood pressure 86 mm[Hg] Caridad Ream [employer] Work Phone: [facility] 12-29-2021 07:57-0400 Heart rate 66 /min Caridad Ream [employer] Work Phone: [facility] 12-29-2021 07:57-0400 SaO2% (BldA) [Mass fraction] 98 % Caridad Ream [employer] Work Phone: [facility] 12-29-2021 07:57-0400 Systolic blood pressure 131 mm[Hg] Caridad Ream [employer] Work Phone: [facility] 12-25-2021 10:25-0400 Body height 182.9 cm Julio C Zheng PA-C Work Phone: [facility] 12-25-2021 10:25-0400 Body mass index (BMI) [Ratio] 29.43 kg/m2 Julio C Zheng PA-C Work Phone: [facility] 12-25-2021 10:25-0400 Body temperature 98.49 [degF] Julio C Zheng PA-C Work Phone: [facility] 12-25-2021 10:25-0400 Body weight 98.43 kg Julio C Interianoester PA-C Work Phone: [facility] 12-25-2021 10:25-0400 Diastolic blood pressure 75 mm[Hg] Julio C Interianoester PA-C Work Phone: [facility] 12-25-2021 10:25-0400 Heart rate 85 /min Julio C Interianoester PA-C Work Phone: [facility] 12-25-2021 10:25-0400 SaO2% (BldA) [Mass fraction] 94 % Julio C Interianoester PA-C Work Phone: [facility] 12-25-2021 10:25-0400 Systolic blood pressure 113 mm[Hg] Julio C Zheng PA-C Work Phone: [facility] 12-19-2021 10:15-0400 Body height 182.9 cm Julio C Zheng PA-C Work Phone: [facility] 12-19-2021 10:15-0400 Body mass index (BMI) [Ratio] 29.16 kg/m2 Julio C Zheng PA-C Work Phone: [facility] 12-19-2021 10:15-0400 Body weight 97.52 kg Julio C Zheng PA-C Work Phone: [facility] 12-19-2021 10:15-0400 Diastolic blood pressure 81 mm[Hg] Julio C Zheng PA-C Work Phone: [facility] 12-19-2021 10:15-0400 Heart rate 74 /min Julio C Zheng PA-C Work Phone: [facility] 12-19-2021 10:15-0400 SaO2% (BldA) [Mass fraction] 96 % Julio C Zheng PA-C Work Phone: [facility] 12-19-2021 10:15-0400 Systolic blood pressure 128 mm[Hg] Julio C Zheng PA-C Work Phone: [facility] 11-12-2021 11:19-0400 Diastolic blood pressure 90 mm[Hg] Jules Bowman MD Work Phone: [facility] 11-12-2021 11:19-0400 Heart rate 62 /min Jules Bowman MD Work Phone: [facility] 11-12-2021 11:19-0400 Systolic blood pressure 135 mm[Hg] Jules Bowman MD Work Phone: [facility] 11-12-2021 11:08-0400 Body height 182.9 cm Jules Bowman MD Work Phone: [facility] 11-12-2021 11:08-0400 Body mass index (BMI) [Ratio] 30.52 kg/m2 Jules Bowman MD Work Phone: [facility] 11-12-2021 11:08-0400 Body weight 102.06 kg Jules Bowman MD Work Phone: [facility] 11-10-2021 14:05-0400 Body height 182.9 cm Wood Eng MD Work Phone: [facility] 11-10-2021 14:05-0400 Body mass index (BMI) [Ratio] 29.97 kg/m2 Wood Eng MD Work Phone: [facility] 11-10-2021 14:05-0400 Body weight 100.25 kg Wood Eng MD Work Phone: [facility] 11-10-2021 14:05-0400 Diastolic blood pressure 74 mm[Hg] Wood Eng MD Work Phone: [facility] 11-10-2021 14:05-0400 Heart rate 62 /min Wood Eng MD Work Phone: [facility] 11-10-2021 14:05-0400 SaO2% (BldA) [Mass fraction] 96 % Wood Eng MD Work Phone: [facility] 11-10-2021 14:05-0400 Systolic blood pressure 112 mm[Hg] Wood Eng MD Work Phone: [facility] 10-30-2021 09:50-0400 Body height 182.9 cm Jeremy Segovia MD Work Phone: [facility] 10-30-2021 09:50-0400 Body mass index (BMI) [Ratio] 29.84 kg/m2 Jeremy Segovia MD Work Phone: [facility] 10-30-2021 09:50-0400 Body weight 99.79 kg Jeremy Segovia MD Work Phone: [facility] 10-30-2021 09:50-0400 Diastolic blood pressure 82 mm[Hg] Jeremy Segovia MD Work Phone: [facility] 06-16-2022 09:50-0400 Heart rate 88 /min Jeremy Segovia MD Work Phone: [facility] 10-30-2021 09:50-0400 SaO2% (BldA) [Mass fraction] 95 % Jeremy Segovia MD Work Phone: [facility] 10-30-2021 09:50-0400 Systolic blood pressure 122 mm[Hg] Jeremy Segovia MD Work Phone: [facility] 10-21-2021 14:55-0400 SaO2% (BldA) [Mass fraction] 95 % Gregory Corbin DO Work Phone: [facility] 10-21-2021 12:16-0400 Diastolic blood pressure 89 mm[Hg] Gregory Corbin DO Work Phone: [facility] 10-21-2021 12:16-0400 Heart rate 65 /min Gregory Corbin DO Work Phone: [facility] 10-21-2021 12:16-0400 Respiratory rate 19 /min Gregory Corbin DO Work Phone: [facility] 10-21-2021 12:16-0400 Systolic blood pressure 150 mm[Hg] Gregory Corbin DO Work Phone: [facility] 10-21-2021 12:09-0400 Body mass index (BMI) [Ratio] 28.48 kg/m2 Gregory Corbin DO Work Phone: [facility] 10-21-2021 12:09-0400 Body temperature 97.39 [degF] Gregory Corbin DO Work Phone: [facility] 10-21-2021 12:09-0400 Body weight 95.25 kg Gregory Corbin DO Work Phone: [facility] 04-07-2021 08:41-0500 Body height 182.9 cm Jeremy Segovia MD Work Phone: [facility] 04-07-2021 08:41-0500 Body mass index (BMI) [Ratio] 30.79 kg/m2 Jeremy Segovia MD Work Phone: [facility] 04-07-2021 08:41-0500 Body weight 102.97 kg Jeremy Segovia MD Work Phone: [facility] 04-07-2021 08:41-0500 Diastolic blood pressure 86 mm[Hg] Jeremy Segovia MD Work Phone: [facility] 04-07-2021 08:41-0500 Heart rate 74 /min Jeremy Segovia MD Work Phone: [facility] 04-07-2021 08:41-0500 SaO2% (BldA) [Mass fraction] 96 % Jeremy Segovia MD Work Phone: [facility] 04-07-2021 08:41-0500 Systolic blood pressure 126 mm[Hg] Jeremy Segovia MD Work Phone: [facility] 03-17-2021 14:28-0400 Body height 182.9 cm Mariela Morgan MD Work Phone: [facility] 03-17-2021 14:28-0400 Body mass index (BMI) [Ratio] 29.84 kg/m2 Mariela Morgan MD Work Phone: [facility] 03-17-2021 14:28-0400 Body weight 99.79 kg Mariela Morgan MD Work Phone: [facility] 03-17-2021 14:28-0400 Diastolic blood pressure 99 mm[Hg] Mariela Morgan MD Work Phone: [facility] 03-17-2021 14:28-0400 Heart rate 75 /min Mariela Morgan MD Work Phone: [facility] 03-17-2021 14:28-0400 Systolic blood pressure 162 mm[Hg] Mariela Morgan MD Work Phone: [facility] 09-30-2020 09:37-0400 Body height 182.9 cm Gail Garduno CNP Work Phone: [facility] 09-30-2020 09:37-0400 Body mass index (BMI) [Ratio] 29.95 kg/m2 Gail Garduno CNP Work Phone: [facility] 09-30-2020 09:37-0400 Body temperature 97.81 [degF] Gail Garduno CNP Work Phone: [facility] 09-30-2020 09:37-0400 Body weight 100.15 kg Gail Garduno CNP Work Phone: [facility] 09-30-2020 09:37-0400 Diastolic blood pressure 74 mm[Hg] Gail Garduno CNP Work Phone: [facility] 09-30-2020 09:37-0400 Heart rate 63 /min Gail Garduno CNP Work Phone: [facility] 09-30-2020 09:37-0400 Respiratory rate 16 /min Gail Garduno CNP Work Phone: [facility] 09-30-2020 09:37-0400 SaO2% (BldA) [Mass fraction] 96 % Gail Garduno CNP Work Phone: [facility] 09-30-2020 09:37-0400 Systolic blood pressure 124 mm[Hg] Gail Garduno CNP Work Phone: [facility] 08-09-2020 15:15-0400 Body Temperature 98.1 [degF] [employer] Work Phone: 08-09-2020 15:15-0400 BP Diastolic 90 mm[Hg] Jessie [employer] Work Phone: 08-09-2020 15:15-0400 BP Systolic 182 mm[Hg] Jessie Abigail [facility] [employer] Work Phone: 08-09-2020 15:15-0400 Pulse (Heart Rate) 71 /min Jessie Abigail [facility] [employer] Work Phone: 08-09-2020 15:15-0400 Pulse Oximetry 95 % Jessie Morillo [employer] Phone: 08-09-2020 15:15-0400 Respiratory Rate 16 /min Jessie [employer] Phone: 08-08-2020 14:21-0400 BMI (Body Mass Index) 30.11 kg/m2 Jessie Morillo [employer] Phone: 08-08-2020 14:21-0400 Body weight 100.7 kg Jessie Morillo [employer] Phone: 08-08-2020 14:21-0400 Height 182.9 cm Jessie Morillo [employer] Phone: 08-02-2020 17:31-0400 Body Temperature 98.1 [degF] Brianne [employer] Phone: 08-02-2020 17:31-0400 BP Diastolic 89 mm[Hg] [employer] Phone: 08-02-2020 17:31-0400 BP Systolic 176 mm[Hg] [employer] Phone: 08-02-2020 17:31-0400 Pulse (Heart Rate) 62 /min Brianne [employer] Phone: 08-02-2020 17:31-0400 Pulse Oximetry 98 % Brianne [employer]io Phone: 08-02-2020 17:31-0400 Respiratory Rate 17 /min [employer] Phone: 08-02-2020 11:37-0400 BMI (Body Mass Index) 30.11 kg/m2 [employer] Phone: 08-02-2020 11:37-0400 Body weight 100.7 kg [employer] Phone: 08-02-2020 11:37-0400 Height 182.9 cm Brianne Urbina [facility] Work Phone: 04-22-2020 20:45-0500 Pulse (Heart Rate) 77 /min [facility] 04-22-2020 20:45-0500 Pulse Oximetry 97 % [facility] 04-22-2020 20:45-0500 Respiratory Rate 16 /min [facility] 04-22-2020 19:43-0500 BP Diastolic 88 mm[Hg] [facility] 04-22-2020 19:43-0500 BP Systolic 154 mm[Hg] [facility] 04-22-2020 17:50-0500 Body Temperature 98.4 [degF] [facility] 02-28-2020 01:36-0400 BP Diastolic 88 mm[Hg] [facility] 02-28-2020 01:36-0400 BP Systolic 174 mm[Hg] [facility] 02-28-2020 01:36-0400 Pulse (Heart Rate) 74 /min [facility] 02-28-2020 01:36-0400 Pulse Oximetry 97 % [facility] 02-28-2020 01:36-0400 Respiratory Rate 18 /min [facility] 02-28-2020 00:09-0400 Height 182.9 cm [facility] 11-11-2019 15:31-0400 BMI (Body Mass Index) 29.84 kg/m2 [facility] 11-11-2019 15:31-0400 Body Temperature 97.9 [degF] [facility] 11-11-2019 15:31-0400 Body weight 99.79 kg [facility] 11-11-2019 15:31-0400 BP Diastolic 102 mm[Hg] [facility] 11-11-2019 15:31-0400 BP Systolic 153 mm[Hg] [facility] 11-11-2019 15:31-0400 Height 182.9 cm [facility] 11-11-2019 15:31-0400 Pulse (Heart Rate) 73 /min Brad Dowd [facility] 11-11-2019 15:31-0400 Pulse Oximetry 95 % Brad Dowd [facility] 11-11-2019 15:31-0400 Respiratory Rate 18 /min Brad Dowd [facility] 06-26-2019 07:44-0500 Body Temperature 97.3 [degF] Marcelo Moe [facility] 06-26-2019 07:44-0500 BP Diastolic 87 mm[Hg] Marcelo Moe [facility] 06-26-2019 07:44-0500 BP Systolic 130 mm[Hg] Marcelo Moe [facility] 06-26-2019 07:44-0500 Pulse (Heart Rate) 78 /min Marcelo Moe [facility] 06-26-2019 07:44-0500 Pulse Oximetry 96 % Marcelo Moe [facility] 06-26-2019 07:44-0500 Respiratory Rate 16 /min Marcelo Moe [facility] 06-21-2019 00:55-0500 BMI (Body Mass Index) 32.59 kg/m2 Marcelo Moe [facility] 06-21-2019 00:55-0500 Body weight 112.04 kg Marcelo Moe [facility] 06-21-2019 00:55-0500 Height 185.4 cm Marcelo Moe [facility] 04-15-2019 13:46-0500 BP Diastolic 99 mm[Hg] Janina Bro [facility] 04-15-2019 13:46-0500 BP Systolic 161 mm[Hg] Janina Bro [facility] 04-15-2019 13:46-0500 Pulse (Heart Rate) 63 /min Janina Bro [facility] 04-15-2019 13:46-0500 Pulse Oximetry 95 % Janina [facility] 04-15-2019 11:46-0500 BMI (Body Mass Index) 27.12 kg/m2 Janina [facility] 04-15-2019 11:46-0500 Body Temperature 97.59 [degF] Janina Bro [facility] 04-15-2019 11:46-0500 Body weight 90.72 kg Janina Bro [facility] 04-15-2019 11:46-0500 Height 182.9 cm Janina [facility] 04-15-2019 11:46-0500 Respiratory Rate 18 /min Janina Bro [facility] 12-09-2018 05:42-0400 BMI (Body Mass Index) 29.84 kg/m2 Aylin Teixeira [facility] 12-09-2018 05:42-0400 Body weight 99.79 kg Aylin Teixeira [facility] 12-09-2018 05:42-0400 Height 182.9 cm Aylin Teixeira [facility] 12-09-2018 05:38-0400 Body Temperature 97.7 [degF] Aylin Teixeira [facility] 12-09-2018 05:38-0400 BP Diastolic 92 mm[Hg] Aylin Teixeira [facility] 12-09-2018 05:38-0400 BP Systolic 147 mm[Hg] Aylin Teixeira [facility] 12-09-2018 05:38-0400 Pulse (Heart Rate) 68 /min Aylin Teixeira [facility] 12-09-2018 05:38-0400 Pulse Oximetry 97 % Aylin Teixeira [facility] 12-09-2018 05:38-0400 Respiratory Rate 17 /min Aylin Teixeira [facility] 05-30-2018 08:59-0500 BMI (Body Mass Index) 30.25 kg/m2 Rolando Constantino [facility] 05-30-2018 08:59-0500 BP Diastolic 97 mm[Hg] Rolando Constantino [facility] 05-30-2018 08:59-0500 BP Systolic 146 mm[Hg] Rolando Constantino [facility] 05-30-2018 08:59-0500 Height 182.9 cm Rolando Constantino [facility] 05-30-2018 08:59-0500 Pulse (Heart Rate) 85 /min Rolando Constantino [facility] 05-30-2018 08:59-0500 Weight 101.2 kg Rolando Constantino [facility] 05-27-2018 08:44-0500 BMI (Body Mass Index) 30.24 kg/m2 Rolando Constantino [facility] 05-27-2018 08:44-0500 BP Diastolic 74 mm[Hg] Rolando Constantino [facility] 05-27-2018 08:44-0500 BP Systolic 137 mm[Hg] Rolando Constantino [facility] 05-27-2018 08:44-0500 Height 182.9 cm Rolando Constantino [facility] 05-27-2018 08:44-0500 Pulse (Heart Rate) 87 /min Rolando Constantino [facility] 05-27-2018 08:44-0500 Pulse Oximetry 97 % Rolando Constantino [facility] 05-27-2018 08:44-0500 Weight 101.15 kg Rolando Constantino [facility] 2018 11:32-0400 BP Diastolic 86 mm[Hg] [facility] 2018 11:32-0400 BP Systolic 138 mm[Hg] [facility] 2018 11:32-0400 Height 182.9 cm [facility] 2018 11:32-0400 Pulse (Heart Rate) 83 /min [facility] 11-24-2017 11:13-0400 BMI (Body Mass Index) 29.84 kg/m2 [facility] 11-24-2017 11:13-0400 BP Diastolic 72 mm[Hg] [facility] 11-24-2017 11:13-0400 BP Systolic 120 mm[Hg] [facility] 11-24-2017 11:13-0400 Height 182.9 cm [facility] 11-24-2017 11:13-0400 Pulse (Heart Rate) 94 /min [facility] 11-24-2017 11:13-0400 Weight 99.79 kg [facility] 10-29-2017 09:30-0400 BMI (Body Mass Index) 29.84 kg/m2 [facility] 10-29-2017 09:30-0400 BP Diastolic 81 mm[Hg] [facility] 10-29-2017 09:30-0400 BP Systolic 125 mm[Hg] [facility] 10-29-2017 09:30-0400 Height 182.9 cm [facility] 10-29-2017 09:30-0400 Pulse (Heart Rate) 86 /min [facility] 10-29-2017 09:30-0400 Weight 99.79 kg [facility] 10-28-2017 16:41-0400 BMI (Body Mass Index) 29.7 kg/m2 Rolando Constantino [facility] 10-28-2017 16:41-0400 BP Diastolic 105 mm[Hg] Rolando Constantino [facility] 10-28-2017 16:41-0400 BP Systolic 150 mm[Hg] Rolando Constantino [facility] 10-28-2017 16:41-0400 Height 182.9 cm Rolando Constantino [facility] 10-28-2017 16:41-0400 Pulse (Heart Rate) 74 /min Rolando Constantino [facility] 10-28-2017 16:41-0400 Pulse Oximetry 96 % Rolando Constantino [facility] 10-28-2017 16:41-0400 Weight 99.34 kg Rolando Constantino [facility] 08-26-2017 14:11-0400 BMI (Body Mass Index) 30.79 kg/m2 [facility] 08-26-2017 14:11-0400 BP Diastolic 104 mm[Hg] [facility] 08-26-2017 14:11-0400 BP Systolic 157 mm[Hg] [facility] 08-26-2017 14:11-0400 Height 182.9 cm [facility] 08-26-2017 14:11-0400 Pulse (Heart Rate) 66 /min [facility] 08-26-2017 14:11-0400 Weight 102.97 kg [facility] 08-12-2017 15:31-0400 BMI (Body Mass Index) 30.65 kg/m2 [facility] 08-12-2017 15:31-0400 BP Diastolic 120 mm[Hg] [facility] 08-12-2017 15:31-0400 BP Systolic 168 mm[Hg] [facility] 08-12-2017 15:31-0400 Height 182.9 cm [facility] 08-12-2017 15:31-0400 Pulse (Heart Rate) 77 /min [facility] 08-12-2017 15:31-0400 Weight 102.51 kg [facility] Encounters Encounter Date Encounter Type Care Provider Facility Start: 2025 End: 2025 ambulatory TASHA ACUNA Facility:[facility] Start: 2025 End: 2025 ambulatory TASHA ACUNA Facility:[facility] Start: 01-29-2025 End: 01-29-2025 Orders Only Renaldo Sanches PA-C Work Phone: [facility] Comment on above: Pain (Primary Dx) Start: 01-28-2025 End: 01-28-2025 Emergency department patient visit Dr. Darren Bahena MD Work Phone: -Emergency Department Work Phone: Start: 01-25-2025 End: 01-25-2025 ambulatory Wendy Derek Facility:[facility] Start: 01-25-2025 End: 01-25-2025 Patient encounter procedure Wendy Derek [facility] Start: 01-24-2025 End: 01-24-2025 ambulatory Wendy Derek Facility:[facility] Start: 01-24-2025 End: 01-24-2025 Patient encounter procedure Wendy Derek [facility] Start: 01-23-2025 End: 01-23-2025 Refill Mariela Morgan MD Work Phone: [facility] Comment on above: Arthritis of right h ip (Primary Dx) Start: 01-22-2025 End: 01-22-2025 Office outpatient visit 15 minutes Mariela Morgan MD Work Phone: [facility] Comment on above: Primary osteoarthrit is of right hip (Primary Dx) Start: 01-22-2025 End: 01-24-2025 Orders Only Nickie Coley LPN [facility] Comment on above: Primary osteoarthrit is of right hip (Primary Dx) Arthritis of right h ip (Primary Dx); Primary osteoarthritis of right hip Start: 01-16-2025 End: 01-16-2025 Orders Only Aylin Luna CNP Work Phone: [facility] Comment on above: Nicotine dependence, cigarettes, uncomplicated (Primary Dx); Encounter for screening for malignant neoplasm of lung in current smoker with 30 pack year history or greater Start: 09-08-2024 End: 09-08-2024 Follow-up encounter Karen Lisa [facility],PharmD [facility] Comment on above: Troponin x 2 (Now an d Repeat in 3 hours), Blood Culture Aerobic/Anaerobic, Blood Culture Aerobic/Anaerobic Start: 09-06-2024 End: 09-11-2024 Evaluation and management of inpatient Petros Vázquez MD Work Phone: [facility] Start: 09-06-2024 End: 09-06-2024 Patient encounter procedure Keri Hussein PA-C Work Phone: [facility] Comment on above: Cellulitis of right thumb (Primary Dx); Acute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 08-08-2020 Basic metabolic pane l calcium total MEGHA FELIX Start: 08-08-2020 DIET LOW SODIUM 2 GM GR FELIX APARICIOCKEN Start: 08-08-2020 FULL CODE MEGHA PEREZ MARGIE Start: 08-08-2020 INITIATE OXYGEN THER APY PROTOCOL MEGHA ISIDRO Start: 08-08-2020 INTAKE AND OUTPUT MEGHA FELIX Start: 08-08-2020 NOTIFY PHYSICIAN (SPECIFY) MEGHA FELIX Start: 08-08-2020 REASON FOR NO MECHAN ICAL VTE PROPHYLAXIS MEGHA FELIX Start: 08-08-2020 VITAL SIGNS MEGHA ANA HANSON Start: 08-08-2020 PATIENT STATUS (FROM ED OR OR/PROCEDURAL) MEGHA FELIX Start: 08-08-2020 Ct head/brain w/o contrast material Jessica José Work Phone: Start: 08-08-2020 IP CONSULT TO WOOD SKI MAKER AL MEDICINE MEGHA FELIX Start: 08-08-2020 INSERT PERIPHERAL IV HAJA [place] ISIDRO Start: 08-08-2020 SALINE LOCK IV MEGHA APRIL ALTMAN Start: 08-08-2020 Radiologic exam ches t 2 views MEGHA FELIX Start: 08-08-2020 Blood count complete auto&auto difrntl wbc MEGHA FELIX Start: 08-08-2020 BRAIN NATRIURETIC PEPTIDE MEGHA FELIX Start: 08-08-2020 TELEMETRY MONITORING HAJA APARICIOCKEN Start: 08-08-2020 Ecg routine ecg w/le ast 12 lds w/i&r MEGHA FELIX Start: 08-08-2020 EKG REPORT MEGHA HANSON Start: 08-08-2020 Radiologic exam ches t 2 views Christin Valverde Work Phone: Start: 08-08-2020 Assay of magnesium Bruno dar Valverde Work Phone: Start: 08-08-2020 Assay of troponin quantitative Christin Valverde Work Phone: Start: 08-08-2020 Blood count complete auto&auto difrntl wbc Christin Valverde Work Phone: Start: 08-08-2020 Comprehensive metabo lic panel Christin Valverde Work Phone: Start: 08-08-2020 Natriuretic peptide Kristine mae Valverde Work Phone: Start: 08-08-2020 Ecg routine ecg w/le ast 12 lds i&r only Christin Valverde Work Phone: Start: 08-08-2020 EKG REPORT Hpf [...] Start: 08-02-2020 Blood count complete automated MEGHA FELIX Start: 08-02-2020 BRAIN NATRIURETIC PEPTIDE MEGHA FELIX Start: 08-02-2020 Ecg routine ecg w/le ast 12 lds w/i&r MEGHA FELIX Start: 08-02-2020 Assay of magnesium Xochilt Heard Start: 08-02-2020 Assay of troponin quantitative Yousuf [...] Phone: Start: 02-28-2020 Radiography of hip Step hen Norma Bharathidilcia Work Phone: Start: 06-20-2019 12 lead ECG Archana Egan Work Phone: Start: 06-18-2019 Complete blood [...] TOP Marcelo Moe Work Phone: Start: 06-18-2019 End: 06-18-2019 Lipid 1996 panel - Serum or Plasma Archana Jimenez Jignesh Work Phone: Start: 06-18-2019 RAINBOW DRAW Marcelo Conklin Work Phone: Start: 06-18-2019 Thyrotropin [Units/volume] in Serum or Plasma by Detection limit <= 0.005 mIU/L Archana Jimenez Jignesh Work Phone: Start: 06-18-2019 Troponin measurement Ma tthew Vamsi Moe Work Phone: Start: 06-18-2019 Drugs of abuse urine screening test Marcelo Moe Work Phone: Start: 04-15-2019 CT of face Janina pascual Work Phone: Start: 04-15-2019 Basic metabolic 1998 panel - Serum or Plasma Janina Bro Work Phone: Start: 04-15-2019 Complete blood count with white cell differential, automated Janina Bro Work Phone: Start: 04-15-2019 Complete blood count with white cell differential, manual Janina Bro Work Phone: Start: 05-30-2018 Cv strs tst xers&/or rx cont ecg w/o i&r Rolando Constantino Work Phone: History of coronary artery bypass grafting S/P CABG (coronary artery bypass graft) Babita CASTROC Work Phone: History of coronary artery bypass grafting S/P CABG (coronary artery bypass graft) Babita CASTROC Work Phone: History of coronary artery bypass grafting S/P CABG x 2 Julio C FREEMAN-C Work Phone: History of coronary artery bypass grafting S/P CABG x 2 Julio C Zheng PA-C Work Phone: History of coronary artery bypass grafting S/P CABG x 2 Julio C Zheng PA-C Work Phone: History of coronary artery bypass grafting S/P CABG (coronary artery bypass graft) Caridad Smith MONUMENT ERECTOR Work Phone: History of coronary artery bypass grafting S/P CABG (coronary artery bypass graft) Julio C Zheng PA-C Work Phone: History of coronary artery bypass grafting S/P CABG (coronary artery bypass graft) Julio C Zheng PA-C Work Phone: History of coronary artery bypass grafting History of coronary artery bypass graft x 2 Dr. Darren Bahena MD Work Phone: Plan of Treatment Date Care Activity Detail Author Start: 09-06-2034 Tetanus vaccination Tetanus: Every 10yrs [facility] Start: 02-03-2032 RSV Vaccine (1 - 1-dose 75+ series) RSV Vaccine (1 - 1-dose 75+ series) [facility] [facility] Start: 01-03-2027 DTaP/Tdap/Td vaccine (3 - Td or Tdap) DTaP/Tdap/Td vaccine (3 - Td or Tdap) [facility] Start: 01-03-2027 Tetanus vaccination [facility] Start: 01-03-2027 Urine microalbumin profile DTaP,Tdap,Td Vaccine (3 - Td or Tdap) [facility] Start: 01-16-2026 DTaP/Tdap/Td Vaccines (2 - Td or Tdap) DTaP/Tdap/Td Vaccines (2 - Td or Tdap) [facility] Start: 01-16-2026 Tetanus vaccination [facility] Start: 02-12-2025 End: 02-12-2025 ambulatory 02/12/2025 1:00 PM EDT Evaluation [facility] [address] [place] [phone] Mariela Morgan MD [address] [place] [address] Kaitlyn Mondragon, PT Discharge Disposition: Home [facility] Start: 02-12-2025 End: 02-12-2025 Patient encounter procedure Radiology Comment on above: Pain [R52] Right Hip Pain, pt w ants to discuss a replacement Start: 2025 End: 2025 Patient encounter procedure 2025 8:00 AM EDT Office Visit [facility] [place] [address] [place] [address] Tasha Acuna MD [address] [place] [address] [facility] [place] Comment on above: [facility] Start: 01-28-2025 [facility] Start: 01-22-2025 End: 01-22-2025 Patient encounter procedure 01/22/2025 2:15 PM EDT Office Visit [facility] [address] [place] [address] [place] [id number] Mariela Morgan MD [address] [place] [address] [facility] Start: 01-15-2025 COVID-19 Vaccine ( season) COVID-19 Vaccine ( season) [facility] Start: 01-15-2025 Influenza vaccination [facility] Start: 11-10-2024 End: 11-10-2024 Patient encounter procedure [facility] Start: 06-18-2024 Lipid panel Lipid Screening [facility] Start: 05-18-2024 End: 05-18-2024 Patient encounter procedure 05/18/2024 10:40 AM EST Office Visit [facility] [address] [place] [address] Aylin Luna, MONUMENT ERECTOR [address] [place] [address] [facility] Start: 05-17-2024 Advance Directive Discussion Advance Directive Discussion [facility] Start: 05-17-2024 Medicare Advantage Annual Wellness Visit Medicare Advantage Annual Wellness Visit [facility] Start: 05-12-2024 End: 05-12-2024 Patient encounter procedure 05/12/2024 8:20 AM EST Office Visit [facility] [address] [place] [address] Jeremy Segovia MD [address] [address] [facility] Start: 04-11-2024 End: 04-11-2024 Patient encounter procedure 04/11/2024 1:20 PM EST Office Visit [facility] [address] [place] [address] Aylin Luna, MONUMENT ERECTOR [address] [place] [address] [facility] Start: 03-09-2024 End: 03-09-2024 Patient encounter procedure 03/09/2024 8:40 AM EDT Office Visit [facility] [address] [place] [address] [place] [address] Jeremy Segovia MD [address] [place] [address] [facility] Start: 02-14-2024 End: 02-14-2024 Patient encounter procedure 02/14/2024 9:45 AM EDT Office Visit [facility] [address] [place] [address] [place] [address] Mariela Morgan MD [address] [place] [address] [facility] Start: 01-16-2024 COVID-19 Vaccine ( season) COVID-19 Vaccine ( season) [facility] Start: 01-16-2024 COVID-19 Vaccine ( season) COVID-19 Vaccine ( season) [facility] Start: 01-16-2024 Influenza vaccination [facility] Start: 11-27-2023 Screening for malignant neoplasm of lung Low-dose CT Lung Cancer Screen [facility] Start: 11-19-2023 End: 11-19-2023 Patient encounter procedure 11/19/2023 11:00 AM EDT Appointment [facility] [address] [place] [address] Mariela Morgan MD [address] [place] [address] [facility] Start: 09-01-2023 Screening for malignant neoplasm of lung Low-dose CT Lung Cancer Screen [facility] Start: 08-10-2023 Diabetes Screening Diabetes Screening [facility] Start: 01-15-2023 COVID-19 Vaccine ( season) COVID-19 Vaccine () [facility] Start: 01-15-2023 Influenza vaccination [facility] Start: 01-04-2023 Screening for malignant neoplasm of lung Low-dose CT Lung Cancer Screen [facility] Start: 12-31-2022 Screening for malignant neoplasm of lung Low-dose CT Lung Cancer Screen [facility] Start: 12-15-2022 Influenza vaccination Flu vaccine (#1) [facility] Start: 12-08-2022 Screening for malignant neoplasm of lung Low-dose CT Lung Cancer Screen [facility] Start: 11-25-2022 Screening for malignant neoplasm of lung Low-dose CT Lung Cancer Screen [facility] Start: 11-12-2022 CLASS III : OFFICE VISIT CLASS III : OFFICE VISIT [facility] Start: 10-09-2022 End: 10-09-2022 Patient encounter procedure 10/09/2022 9:30 AM EDT Appointment [address] [phone] Tutu Mancera, RN [facility] Start: 10-08-2022 End: 10-08-2022 Patient encounter procedure 10/08/2022 8:00 AM EDT Appointment [address] [phone] Tutu Mancera, RN [facility] Start: 10-05-2022 End: 10-05-2022 Home visit 10/05/2022 12:30 PM EDT Home Care Visit [address] [phone] Tutu Mancera, RN [facility] Start: 10-02-2022 End: 10-02-2022 Home visit 10/02/2022 9:30 AM EDT Home Care Visit [address] [phone] Tutu Mancera, RN [facility] Start: 10-02-2022 End: 10-02-2022 Patient encounter procedure 10/02/2022 9:30 AM EDT Appointment [address] [phone] Tutu Mancera, RN [facility] Start: 10-01-2022 End: 10-01-2022 Home visit 10/01/2022 8:00 AM EDT Home Care Visit [address] [phone] Tutu Mancera, RN [facility] Start: 09-29-2022 End: 09-29-2022 Patient encounter procedure 09/29/2022 3:15 PM EDT Office Visit [facility] [address] [place] [address] [place] [address] Mariela Morgan MD [address] [place] [address] [facility] Start: 09-29-2022 End: 09-29-2022 Home visit [facility] Start: 09-28-2022 End: 09-28-2022 Follow-up encounter 09/28/2022 10:30 AM EDT Follow-Up [facility] [address] [facility] [place] [address] [facility] Start: 09-25-2022 End: 09-25-2022 Home visit 09/25/2022 11:00 AM EDT Home Care Visit [address] [phone] Tutu Mancera, RN [facility] Start: 09-24-2022 End: 09-24-2022 Home visit 09/24/2022 8:00 AM EDT Home Care Visit [address] [phone] Tutu Mancera, RN [facility] Start: 09-24-2022 End: 09-24-2022 Patient encounter procedure 09/24/2022 8:00 AM EDT Appointment [address] [phone] Tutu Mancera, RN [facility] Start: 09-23-2022 End: 09-23-2022 Follow-up encounter 09/23/2022 11:00 AM EDT Follow-Up [facility] [address] [place] [address] [place] [address] [facility] Start: 09-22-2022 End: 09-22-2022 Home visit 09/22/2022 11:00 AM EDT Home Care Visit [address] [phone] Tutu Mancera, RN [facility] Start: 09-21-2022 End: 09-21-2022 Follow-up encounter 09/21/2022 10:30 AM EDT Follow-Up [facility] [address] [place] [address] [place] [address] [facility] Start: 09-18-2022 End: 09-18-2022 Home visit [facility] Start: 09-17-2022 End: 09-17-2022 Home visit 09/17/2022 8:00 AM EDT Home Care Visit [address] [phone] Tutu Mancera, RN [facility] Start: 09-16-2022 End: 09-16-2022 Patient encounter procedure [facility] Start: 09-16-2022 End: 09-16-2022 Follow-up encounter 09/16/2022 10:30 AM EDT Follow-Up [facility] [address] [facility] [place] [address] [facility] Start: 09-15-2022 End: 09-15-2022 Home visit 09/15/2022 11:00 AM EDT Home Care Visit [address] [phone] Tutu Mancera, RN [facility] Start: 09-14-2022 End: 09-14-2022 Follow-up encounter 09/14/2022 10:30 AM EDT Follow-Up [facility] [address] [facility] [place] [address] [facility] Start: 09-11-2022 End: 09-11-2022 Home visit 09/11/2022 2:00 PM EDT Home Care Visit [address] [phone] Tutu Mancera, RN [facility] Start: 09-10-2022 End: 09-10-2022 Follow-up encounter 09/10/2022 11:00 AM EDT Follow-Up [facility] [address] [facility] [place] [address] [facility] Start: 09-10-2022 End: 09-10-2022 Home visit 09/10/2022 9:30 AM EDT Home Care Visit [address] [phone] Tutu Mancera, RN [facility] Start: 09-09-2022 End: 09-09-2022 Home visit [facility] Start: 09-07-2022 End: 09-07-2022 Home visit 09/07/2022 11:00 AM EDT Home Care Visit [address] [phone] Tutu Mancera, RN [facility] Start: 09-07-2022 End: 09-07-2022 Patient encounter procedure 09/07/2022 10:00 AM EDT Office Visit [facility] [address] [facility] [place] [address] [facility] Start: 09-04-2022 End: 09-04-2022 Home visit [facility] Start: 09-04-2022 End: 09-04-2022 Patient encounter procedure 09/04/2022 8:00 AM EDT Appointment [address] [phone] Tutu Mancera, RN [facility] Start: 09-01-2022 End: 09-01-2022 Home visit [facility] Start: 09-01-2022 End: 09-01-2022 Admission to same day surgery center 09/01/2022 9:00 AM EDT - 09/01/2022 10:00 AM EDT Surgery [facility] [address] [place] [address] Florencio Chambers MD [address] [facility] [address] [place] [address] VR Aspiration Sternal seroma [facility] Comment on above: VR Aspiration Sternal seroma Start: 08-31-2022 End: 08-31-2022 Follow-up encounter 08/31/2022 10:30 AM EDT Follow-Up [facility] [address] [facility] [place] [address] [facility] Start: 08-27-2022 End: 08-27-2022 Home visit 08/27/2022 8:00 AM EDT Home Care Visit [address] [phone] Tutu Mancera, RN [facility] Start: 08-25-2022 End: 08-25-2022 Home visit 08/25/2022 11:00 AM EDT Home Care Visit [address] [phone] Tutu Mancera, RN [facility] Start: 08-20-2022 End: 08-20-2022 Home visit 08/20/2022 2:00 PM EDT Home Care Visit [address] [phone] Tutu Mancera, RN [facility] Start: 08-19-2022 End: 08-19-2022 Follow-up encounter 08/19/2022 10:00 AM EDT Follow-Up [facility] [address] [facility] [place] [address] [facility] Start: 08-19-2022 End: 08-19-2022 Anesthesia consultation 08/19/2022 7:25 AM EDT Anesthesia Event [facility] [address] [place] [address] Nacho Cornell MD [address] [place] [address] [facility] Start: 08-19-2022 End: 08-19-2022 BRING BACK OPEN HEART BRING BACK OPEN HEART DISRUPTION OF CLOSURE OF STERNOTOMY 08/19/2022 7:25 AM EDT [facility] Start: 08-19-2022 End: 08-19-2022 Evaluation and management of inpatient 08/19/2022 7:25 AM EDT - 08/19/2022 9:42 AM EDT Surgery [facility] [address] [place] [address] Wood Eng MD [address] [place] [address] STERNAL WOUND EXPLORATION [facility] Comment on above: STERNAL WOUND EXPLORATION Start: 08-18-2022 End: 08-18-2022 Home visit 08/18/2022 12:30 PM EDT Home Care Visit [address] [phone] Tutu Mancera RN [facility] Start: 08-06-2022 End: 08-06-2022 Admission to same day surgery center 08/06/2022 Surgery Wood Eng MD [address] [place] [address] STERNAL REWIRE WITH POSSIBLE PLATING [facility] Comment on above: STERNAL REWIRE WITH POSSIBLE PLATING Start: 08-06-2022 End: 08-06-2022 Anesthesia consultation 08/06/2022 Anesthesia Event Benigno Singletary MD [address] [place] [address] [facility] Start: 08-06-2022 End: 08-06-2022 STERNAL WIRING STERNAL WIRING STERNAL DEHISCENCE 08/06/2022 7:20 AM EDT [facility] Start: 08-06-2022 Subsequent hospital visit by physician 08/06/2022 Hospital Encounter Wood Eng MD [address] [place] [address] [facility] Start: 08-05-2022 End: 08-05-2022 Patient encounter procedure 08/05/2022 Office Visit Orthopedic Surgery Mariela Morgan MD [address] [place] [address] [facility] Start: 07-30-2022 End: 07-30-2022 Patient encounter procedure 07/30/2022 Appointment Radiology Julio C Zheng PA-C [address] [place] [address] [facility] CT Scan Start: 07-21-2022 Subsequent hospital visit by physician 07/21/2022 Hospital Encounter Radiology Mariela Morgan MD [address] [place] [address] [facility] Start: 07-13-2022 End: 07-13-2022 Patient encounter procedure 07/13/2022 Office Visit Orthopedic Surgery Mariela Morgan MD [address] [place] [address] [facility] Start: 07-01-2022 End: 07-01-2022 Patient encounter procedure 07/01/2022 Office Visit Pulmonology Abigail Page MD [address] [facility] [place] [address] [facility] Start: 05-19-2022 End: 05-19-2022 Patient encounter procedure 05/19/2022 Office Visit Cardiology Ruchi Markham, TRAFFIC ENGINEERING DIRECTOR - MONUMENT ERECTOR [address] [address] [facility] Start: 04-30-2022 End: 04-30-2022 Patient encounter procedure 04/30/2022 Office Visit Cardiology Jeremy Segovia MD [address] [address] [facility] Start: 04-27-2022 End: 12-29-2022 Lipid 1996 panel - Serum or Plasma Lipid panel Lab Routine Hyperlipidemia, unspecified hyperlipidemia type Expected: 04/27/2022, Expires: 12/29/2022 [facility] Work Phone: Comment on above: Expected: 04/27/2022, Expires: Start: 04-22-2022 End: 04-22-2022 ambulatory 04/22/2022 Treatment Cardiac Rehabilitation Julio C Zheng PA-C [address] [place] [address] [facility] Start: 04-20-2022 End: 04-20-2022 ambulatory 04/20/2022 Treatment Cardiac Rehabilitation Julio C Zheng PA-C [address] [place] [address] [facility] Start: 04-16-2022 End: 04-16-2022 ambulatory 04/16/2022 Treatment Cardiac Rehabilitation Julio C Zheng PA-C [address] [place] [address] [facility] Start: 04-15-2022 End: 04-15-2022 ambulatory 04/15/2022 Treatment Cardiac Rehabilitation Julio C Zheng PA-C [address] [place] [address] [facility] Start: 04-13-2022 FQHC visit new patient Medical New Patient Dr.Gene Bahena [facility] Work Phone: Start: 04-13-2022 End: 04-13-2022 ambulatory 04/13/2022 Treatment Cardiac Rehabilitation Julio C Zheng PA-C [address] [place] [address] [facility] Start: 04-08-2022 End: 04-08-2022 ambulatory 04/08/2022 Treatment Cardiac Rehabilitation Julio C Zheng PA-C [address] [place] [address] [facility] Start: 04-06-2022 End: 04-06-2022 ambulatory 04/06/2022 Treatment Cardiac Rehabilitation Julio C Zheng PA-C [address] [place] [address] [facility] Start: 04-02-2022 End: 04-02-2022 ambulatory 04/02/2022 Treatment Cardiac Rehabilitation Julio C Zheng PA-C [address] [place] [address] [facility] Start: 04-01-2022 End: 04-01-2022 ambulatory 04/01/2022 Treatment Cardiac Rehabilitation Julio C Zheng PA-C [address] [place] [address] [facility] Start: 03-30-2022 End: 03-30-2022 ambulatory 03/30/2022 Treatment Cardiac Julio C Damon PA-C [address] [place] [address] [facility] Start: 03-26-2022 End: 03-26-2022 ambulatory 03/26/2022 Treatment Cardiac Rehabilitation Julio C Zheng PA-C [address] [place] [address] [facility] Start: 03-25-2022 End: 03-25-2022 ambulatory 03/25/2022 Treatment Cardiac Julio C Damon PA-C [address] [facility] [place] [address] [facility] Start: 03-23-2022 End: 03-23-2022 ambulatory 03/23/2022 Treatment Cardiac Rehabilitation Julio C Zheng PA-C [address] [place] [address] [facility] Start: 03-19-2022 End: 03-19-2022 ambulatory 03/19/2022 Treatment Cardiac Rehabilitation Julio C Zheng PA-C [address] [place] [address] [facility] Start: 03-18-2022 End: 03-18-2022 ambulatory 03/18/2022 Treatment Cardiac Rehabilitation Julio C Zheng PA-C [address] [place] [address] [facility] Start: 03-16-2022 End: 03-16-2022 ambulatory 03/16/2022 Treatment Cardiac Rehabilitation Julio C Zheng PA-C [address] [place] [address] [facility] Start: 03-12-2022 End: 03-12-2022 ambulatory 03/12/2022 Treatment Cardiac Rehabilitation Julio C Zheng PA-C [address] [place] [address] [facility] Start: 03-11-2022 End: 03-11-2022 ambulatory 03/11/2022 Treatment Cardiac Rehabilitation Julio C Zheng PA-C [address] [place] [address] [facility] Start: 03-09-2022 End: 03-09-2022 ambulatory 03/09/2022 Treatment Cardiac Rehabilitation Julio C Zheng PA-C [address] [place] [address] [facility] Start: 03-05-2022 End: 03-05-2022 ambulatory 03/05/2022 Treatment Cardiac Rehabilitation Julio C Zheng PA-C [address] [place] [address] [facility] Start: 03-04-2022 End: 03-04-2022 ambulatory 03/04/2022 Treatment Cardiac Rehabilitation Julio C Zheng PA-C [address] [place] [address] [facility] Start: 03-02-2022 End: 03-02-2022 ambulatory 03/02/2022 Treatment Cardiac Rehabilitation Julio C Zheng PA-C [address] [place] [address] [facility] Start: 02-26-2022 End: 02-26-2022 ambulatory 02/26/2022 Treatment Cardiac Julio C Damon PA-C [address] [place] [address] [facility] Start: 02-25-2022 End: 02-25-2022 ambulatory 02/25/2022 Treatment Cardiac Julio C Damon PA-C [address] [place] [address] [facility] Start: 02-23-2022 End: 02-23-2022 ambulatory 02/23/2022 Treatment Cardiac Julio C Damon PA-C [address] [place] [address] [facility] Start: 02-19-2022 End: 02-19-2022 ambulatory 02/19/2022 Treatment Cardiac Rehabilitation Julio C Zheng PA-C [address] [place] [address] [facility] Start: 02-18-2022 End: 02-18-2022 ambulatory 02/18/2022 Treatment Cardiac Rehabilitation LankJulio C garrett PA-C [address] [place] [address] [facility] Start: 02-16-2022 End: 02-16-2022 ambulatory 02/16/2022 Treatment Cardiac [facility] MarceJulio C PA-C [address] [facility] [address] [facility] Start: 02-12-2022 End: 02-12-2022 ambulatory 02/12/2022 Treatment Cardiac [facility] LaishaJulio C garrett PA-C [address] [place] [address] [facility] Start: 02-11-2022 End: 02-11-2022 ambulatory 02/11/2022 Treatment Cardiac [facility] MarceJulio C PA-C [address] [place] [address] [facility] Start: 02-09-2022 End: 02-09-2022 ambulatory 02/09/2022 Treatment Cardiac [facility] MarceJulio C PA-C [address] [place] [address] [facility] Start: 02-06-2022 End: 02-06-2022 Patient encounter procedure 02/06/2022 Office Visit Pain Medicine Prok, Peña Arora MD [address] [place] [address] [facility] Start: 02-05-2022 End: 02-05-2022 ambulatory 02/05/2022 Treatment Cardiac [facility] LaishaJulio C garrett PA-C [address] [place] [address] [facility] Start: 02-04-2022 End: 02-04-2022 ambulatory 02/04/2022 Treatment Cardiac Rehabilitation Julio C Zheng PA-C [address] [place] [address] [facility] Start: 2022 Abdominal aortic aneurysm screening [facility] Start: 2022 Fall risk assessment Falls Risk Assessment [facility] Start: 2022 End: 2022 ambulatory 2022 Treatment Cardiac Rehabilitation Julio C Zheng PA-C [address] [facility] [place] [address] [facility] Start: 01-29-2022 End: 01-29-2022 ambulatory 01/29/2022 Treatment Cardiac Julio C Damon PA-C [address] [place] [address] [facility] Start: 01-28-2022 End: 01-28-2022 ambulatory 01/28/2022 Treatment Cardiac Rehabilitation Julio C Zheng PA-C [address] [place] [address] [facility] Start: 01-26-2022 End: 01-26-2022 ambulatory 01/26/2022 Treatment Cardiac Rehabilitation Julio C Zheng PA-C [address] [place] [address] [facility] Start: 01-22-2022 End: 01-22-2022 ambulatory 01/22/2022 Treatment Cardiac Rehabilitation Julio C Zheng PA-C [address] [place] [address] [facility] Start: 01-21-2022 End: 01-21-2022 ambulatory 01/21/2022 Treatment Cardiac Rehabilitation Julio C Zheng PA-C [address] [place] [address] [facility] Start: 01-15-2022 Influenza vaccination [facility] Start: 01-15-2022 End: 01-15-2022 ambulatory 01/15/2022 Treatment Cardiac [facility] LaishaJulio C garrett PA-C [address] [place], [place] [id number] [facility] Start: 01-14-2022 End: 01-14-2022 ambulatory 01/14/2022 Treatment Cardiac [facility] Julio C Zheng PA-C [address] [place] [address] [facility] Start: 01-12-2022 End: 01-12-2022 ambulatory 01/12/2022 Treatment Cardiac Rehabilitation LaishaJulio C garrett PA-C [address] [place] [address] [facility] Start: 01-09-2022 End: 01-09-2022 Patient encounter procedure 01/09/2022 Office Visit Pain Medicine Julio C Zheng PA-C [address] [place] [address] Peña Hitchcock MD [address] [place] [address] [facility] Start: 12-29-2021 End: 12-29-2021 Patient encounter procedure 12/29/2021 Office Visit Cardiology Caridad Smith CNP [address] [place] [address] [facility] Start: 12-25-2021 End: 12-25-2021 Follow-up encounter 12/25/2021 Follow-Up Cardiology [facility] Start: 12-18-2021 End: 12-18-2021 Follow-up encounter 12/18/2021 Follow-Up Cardiology [facility] Start: 12-15-2021 Influenza vaccination Flu vaccine (#1) [facility] Start: 12-04-2021 End: 12-04-2021 Follow-up encounter 12/04/2021 Follow-Up Cardiology [facility] Start: 11-20-2021 End: 11-20-2021 Admission to same day surgery center 11/20/2021 Surgery Wood Eng MD [address] [place] [address] CORONARY ARTERY BYPASS GRAFT WITH RADIAL ARTERY HARVEST AND DAVIS/INGRID [facility] Comment on above: CORONARY ARTERY BYPASS GRAFT WITH RADIAL ARTERY HARVEST AND DAVIS/INGRID Start: 11-20-2021 End: 11-20-2021 Anesthesia consultation 11/20/2021 Anesthesia Event Nacho Cornell MD [address] [place] [address] [facility] Start: 11-20-2021 Subsequent hospital visit by physician 11/20/2021 Hospital Encounter Wood Eng MD [address] [place] [address] [facility] Start: 11-20-2021 End: 11-20-2021 CORONARY ARTERY BYPASS GRAFT WITH RADIAL ARTERY HARVEST [facility] Start: 11-18-2021 End: 11-18-2021 Patient encounter procedure 11/18/2021 Appointment Cardiology Jules Bowman MD [address] [place] [address] [facility] Start: 11-12-2021 End: 12-12-2021 Upper extremity vein mapping Upper extremity vein mapping Vascular Ultrasound Routine 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) Expected: 11/12/2021, Expires: 12/12/2021 [facility] Work Phone: Comment on above: Expected: 11/12/2021, Expires: Start: 11-12-2021 End: 11-12-2021 Patient encounter procedure [facility] Start: 11-07-2021 End: 11-07-2021 Admission to same day surgery center 11/07/2021 Surgery Cardiology Minoo Grimm MD [address] [place] [address] Left [facility] Cath [facility] Comment on above: Left Heart Cath Start: 11-07-2021 Subsequent hospital visit by physician 11/07/2021 Hospital Encounter Cardiology Minoo Grimm MD [address] [place] [address] [facility] Start: 09-30-2021 Depression screening using PHQ-9 (Patient Health Questionnaire 9) score Depression Screening/Follow-Up (PHQ-2/9) [facility] Start: 08-09-2021 Screening for malignant neoplasm of colon [facility] Start: 08-02-2021 Creatinine measurement Creatinine monitoring [facility] Work Phone: Start: 08-02-2021 Potassium monitoring Potassium monitoring [employer] Phone: Start: 04-07-2021 End: 04-07-2021 Patient encounter procedure 04/07/2021 Office Visit Cardiology Jeremy Segovia MD [address] [address] [facility] Start: 03-31-2021 End: 03-31-2021 Patient encounter procedure [facility] Start: 02-27-2021 Depression Remission Assessment (PHQ9) Depression Remission Assessment (PHQ9) [facility] Start: 02-24-2021 End: 02-24-2021 Patient encounter procedure 02/24/2021 Office Visit Cardiology Jeremy Segovia MD [address] [address] [facility] Start: 02-10-2021 End: 02-10-2021 Patient encounter procedure 02/10/2021 Office Visit Orthopedic Surgery Mariela Morgan MD [address] [place] [address] [facility] Start: 01-15-2021 Influenza vaccination [facility] Start: 10-01-2020 End: 09-30-2021 Complete blood count with white cell differential, manual CBC and Differential Lab Routine Paresthesia of both feet Expected: 10/01/2020 (Approximate), Expires: 09/30/2021 [facility] Comment on above: Expected: 10/01/2020 (Approximate), Expi res: 09/30/2021 Start: 10-01-2020 End: 09-30-2021 Comprehensive metabolic 2000 panel - Serum or Plasma Comprehensive Metabolic Panel Lab Routine Essential hypertension Coronary artery disease due to lipid rich plaque Hyperlipidemia, unspecified hyperlipidemia type Expected: 10/01/2020 (Approximate), Expires: 09/30/2021 [facility] Comment on above: Expected: 10/01/2020 (Approximate), Expi res: 09/30/2021 Start: 10-01-2020 End: 09-30-2021 Lipid 1996 panel - Serum or Plasma Lipid Panel Lab Routine Hyperlipidemia, unspecified hyperlipidemia type Expected: 10/01/2020, Expires: 09/30/2021 [facility] Comment on above: Expected: 10/01/2020, Expires: Start: 10-01-2020 End: 09-30-2021 Thyrotropin [Units/volume] in Serum or Plasma TSH with Reflex Free T4 Lab Routine Dysphagia, unspecified type Hoarseness Pharyngitis, unspecified etiology Expected: 10/01/2020 (Approximate), Expires: 09/30/2021 [facility] Comment on above: Expected: 10/01/2020 (Approximate), Expi res: 09/30/2021 Start: 04-18-2020 Depression Remission Assessment Depression Remission Assessment [facility] Start: 04-18-2020 Depression Remission Assessment (PHQ9) Depression Remission Assessment (PHQ9) [facility] Start: 01-16-2020 Influenza vaccination [employer] Start: 01-16-2020 [facility] Start: 05-08-2019 End: 05-08-2019 Office Visit 05/08/2019 Office Visit Cardiology Rolando Constantino MD [address] [place] [address] [phone] [facility] Start: 01-15-2019 Influenza vaccination given SEQUENTIAL INFLUENZA VACCINE (#1) [facility] Start: 11-05-2018 Annual Wellness Visit (AWV) Annual Wellness Visit (AWV) [facility] Start: 08-04-2018 Low dose computed tomography of chest without contrast Low-dose CT Lung Cancer Screen [facility] Start: 08-04-2018 Screening for malignant neoplasm of lung Low-dose CT Lung Cancer Screen [facility] Start: 06-02-2018 End: 06-02-2018 Ambulatory 06/02/2018 Office Visit Primary Care Ludy Azevedo, MONUMENT ERECTOR [address] [place] [address] [phone] [facility] Start: 05-30-2018 Ambulatory 05/30/2018 Hospital Encounter Cardiology Rolando Constantino MD [address] [place] [address] [phone] [facility] Start: 2018 End: 2018 Ambulatory 2018 Office Visit Orthopedic Surgery ViaMariela gamble MD [address] [place] [address] [phone] [facility] Start: 01-15-2018 Influenza vaccination [facility] Start: 01-15-2018 Influenza vaccination given SEQUENTIAL INFLUENZA VACCINE (#1) [facility] Start: 11-03-2017 Ambulatory 11/03/2017 Hospital Encounter Mariela Morgan MD [address] [place] [address] [phone] [facility] Start: 10-29-2017 End: 10-29-2017 Ambulatory 10/29/2017 Office Visit Orthopedic Surgery Mariela Morgan MD [address] [place] [address] [phone] [facility] Start: 09-29-2017 End: 09-29-2017 Ambulatory 09/29/2017 Office Visit Cardiology Rolando Constantino MD [address] [place] [address] [phone] [facility] Start: 08-26-2017 Ambulatory 08/26/2017 Office Visit Orthopedic Surgery Mariela Morgan MD [address] [place] [address] [phone] [facility] Start: 08-17-2017 Ambulatory 08/17/2017 Office Visit Cardiology Rolando Constantino MD [address] [place] [address] [phone] [facility] Start: 2017 Respiratory Syncytial Virus Immunization: Risk, 60-74 Risk, or 75+ (1 - Risk 60-74 years 1-dose series) Respiratory Syncytial Virus Immunization: Risk, 60-74 Risk, or 75+ (1 - Risk 60-74 years 1-dose series) [facility] Start: 2017 RSV High Risk: (Elderly (60+) or Population) (1 - Risk 60-74 years 1-dose series) RSV High Risk: (Elderly (60+) or Population) (1 - Risk 60-74 years 1-dose series) [facility] Start: 2017 RSV Immunization for Adults (1 - Risk 60-74 years 1-dose series) RSV Immunization for Adults (1 - Risk 60-74 years 1-dose series) [facility] Start: 2017 Zoster vacc, sc ZOSTER VACCINE [facility] Start: 01-15-2017 Influenza vaccination SEQUENTIAL INFLUENZA VACCINE (#1) [facility] Start: 01-15-2017 SEQUENTIAL INFLUENZA VACCINE (#1) SEQUENTIAL INFLUENZA VACCINE (#1) [facility] Work Phone: Start: 02-03-2012 Screening for malignant neoplasm of lung Low dose CT lung screening [facility] [employer] Phone: Start: 2007 Administration of herpes zoster vaccine ZOSTER VACCINES (1 of 2) [facility] Start: 2007 Colonoscopy COLORECTAL CANCER SCREENING DISCUSSION [facility] Start: 2007 Pneumococcal Vaccine: 50+ (1 of 1 - PCV) Pneumococcal Vaccine: 50+ (1 of 1 - PCV) [facility] Start: 2007 Prostate specific antigen measurement PROSTATE CANCER SCREENING DISCUSSION [facility] Start: 2007 Screening for malignant neoplasm of colon [facility] Start: 2007 Screening for malignant neoplasm of lung [facility] Start: 2007 Shingles Vaccine (1 of 2) Shingles Vaccine (1 of 2) [facility] Start: 2007 Shingrix Vaccine (1 of 2) Shingrix Vaccine (1 of 2) [facility] Start: 2007 Zoster vaccine hzv live for subcutaneous use ZOSTER (SHINGLES) VACCINE (1 of 2) [facility] Start: 2007 ZOSTER VACCINES (1 of 2) ZOSTER VACCINES (1 of 2) [facility] Start: 2002 Prostate specific antigen measurement Prostate Cancer Screening Discussion [facility] Start: 2002 Screening for malignant neoplasm of [facility] Start: 1997 Diabetes screen Diabetes screen [facility] [employer] Phone: Start: 1997 Fasting lipid profile LIPID SCREENING [facility] [employer] [facility] Start: 1997 Lipid panel [facility] Start: 1997 Prostate specific antigen measurement Prostate Specific Antigen (PSA) Screening or Monitoring [facility] [employer] Start: 02-03-1992 Diabetes screen Diabetes screen [facility] Start: 1979 DTaP/Tdap/Td Vaccines (1 - Tdap) DTaP/Tdap/Td Vaccines (1 - Tdap) [facility] Start: 02-03-1976 DTaP/Tdap/Td vaccine (1 - Tdap) DTaP/Tdap/Td vaccine (1 - Tdap) [employer] Phone: Start: 02-03-1976 Pneumococcal vaccination Pneumococcal Vaccine (1 of 2 - PCV) [facility] Start: 02-03-1976 Pneumococcal Vaccine: 50+ Years (1 of 2 - PCV) Pneumococcal Vaccine: 50+ Years (1 of 2 - PCV) [facility] Start: 02-03-1976 Pneumococcal Vaccine: Age 50+ (1 of 2 - PCV) Pneumococcal Vaccine: Age 50+ (1 of 2 - PCV) [facility] Start: 02-03-1976 Pneumococcal Vaccine: Age 65+ (1 of 2 - PCV) Pneumococcal Vaccine: Age 65+ (1 of 2 - PCV) [facility] Start: 02-03-1976 Third diphtheria, tetanus and acellular pertussis (DTaP) vaccination TDAP (ADULT) [facility] Start: 1975 Anxiety Screening Anxiety Screening [facility] Start: 1975 Depression Screening Depression Screening [facility] Start: 1975 Hepatitis C antibody, confirmatory test Hepatitis C Screening [facility] Start: 1975 Hepatitis C screening [facility] Start: 1975 Tetanus vaccination TETANUS [facility] Start: 1973 COVID-19 Vaccine (1 of 2) COVID-19 Vaccine (1 of 2) [facility] Start: 1973 COVID-19 Vaccine (1) COVID-19 Vaccine (1) [facility] [employer] Phone: Start: 02-03-1972 HIV screening [facility] Start: 1970 HIV screening HIV SCREENING DISCUSSION [facility] Start: 1969 COVID-19 Vaccine (1) COVID-19 Vaccine (1) [facility] Start: 1969 Depression Monitoring Depression Monitoring [facility] Start: 1969 Depression Screen Depression Screen [facility] Start: 1967 Lipid panel [facility] Start: 1963 Pneumococcal 65+ years Vaccine (1 - PCV) Pneumococcal 65+ years Vaccine (1 - PCV) [facility] Start: 1963 Pneumococcal vaccination PNEUMOCOCCAL VACCINE SERIES (1 - PCV) [facility] Start: 1963 Pneumococcal Vaccine: Age 65+ (1 - PCV) Pneumococcal Vaccine: Age 65+ (1 - PCV) [facility] Start: 1963 Pneumococcal Vaccine: Age 65+ (1 of 2 - PCV) Pneumococcal Vaccine: Age 65+ (1 of 2 - PCV) [facility] Start: 1963 Pneumococcal Vaccine: Ped or At-Risk (1 - PCV) Pneumococcal Vaccine: Ped or At-Risk (1 - PCV) [facility] Start: 1963 Pneumococcal Vaccine: Ped or At-Risk (1 of 2 - PPSV23) Pneumococcal Vaccine: Ped or At-Risk (1 of 2 - PPSV23) [facility] Start: 1962 COVID-19 Vaccine (#1) COVID-19 Vaccine (#1) [facility] Start: 1962 COVID-19 Vaccine (1) COVID-19 Vaccine (1) [facility] Start: 02-03-1960 History and physical examination, annual for health maintenance Wellness Visit [facility] Start: 02-03-1960 Medicare Wellness Visit Medicare Wellness Visit [facility] Start: 1957 COVID-19 Vaccine (#1) COVID-19 Vaccine (#1) [facility] Start: 1957 Abdominal aortic aneurysm screening Abdominal Aortic Ultrasound [facility] Start: 1957 Annual wellness visit Welcome to Medicare Visit [facility] Start: 1957 Annual Wellness Visit (AWV) Annual Wellness Visit (AWV) [facility] Start: 1957 CLASS III : ALT CLASS III : ALT [facility] Start: 1957 CLASS III : AST CLASS III : AST [facility] Start: 1957 CLASS III : CXR CLASS III : CXR [facility] Start: 1957 CLASS III : EKG CLASS III : EKG [facility] Start: 1957 CLASS III : PFT CLASS III : PFT [facility] Start: 1957 Class III : TSH Class III : TSH [facility] Start: 1957 Depression screening using PHQ-9 (Patient Health Questionnaire 9) score DEPRESSION SCREENING (PHQ9) [facility] Start: 1957 Hepatitis C screening [employer] Start: 1957 Lipid panel Lipid Panel [facility] Start: 1957 Prostate specific antigen measurement PSA Level [facility] Start: 1957 Screening for malignant neoplasm of colon [facility] Start: 1957 Colonoscopy COLONOSCOPY [facility] Work Phone: Start: 1957 End: 1957 Hepatitis C antibody, confirmatory test [facility] Start: 1957 HEPATITIS C SCREENING HEPATITIS C SCREENING [facility] Work Phone: Start: 1957 Low-dose [address] Lung Cancer Screen Low-dose CT Lung Cancer Screen [facility] Start: 1957 End: 1957 Protein mass conc COLONOSCOPY [facility] Start: 1957 Screening colonoscopy COLONOSCOPY [facility] Start: 1957 End: 1957 Screening for malignant neoplasm of lung Low-dose CT Lung Cancer Screen [facility] Start: 1957 TETANUS EVERY 10 YR TETANUS EVERY 10 YR [facility] Work Phone: End: 06-18-2019 12 lead ECG EKG 12-lead ECG STAT Once for 1 Occurrences starting 06/18/2019 until 06/18/2019 [facility] Comment on above: Once for 1 Occurrences starting 06/18/19 20 until 06/18/2019 End: 12-22-2022 12 lead ECG ECG 12 Lead ECG Routine S/P CABG x 2 1 Occurrences starting 12/22/2021 until 12/22/2022 [facility] Comment on above: 1 Occurrences starting 12/22/2021 until 12/22/2022 End: 08-08-2020 Basic metabolic 2000 panel Basic metabolic panel Lab Routine One Time for 1 Occurrences starting 08/08/2020 until 08/08/2020 [employer] Work Phone: Comment on above: One Time for 1 Occurrences starting 07/16 until 08/08/2020 End: 12-01-2022 Basic metabolic 2000 panel - Serum or Plasma Basic Metabolic Panel Lab STAT S/P CABG (coronary artery bypass graft) 1 Occurrences starting 11/30/2021 until 12/01/2022 [facility] Comment on above: 1 Occurrences starting 11/30/2021 until 12/01/2022 End: 12-15-2022 Basic metabolic 2000 panel - Serum or Plasma Basic Metabolic Panel Lab STAT S/P CABG (coronary artery bypass graft) 1 Occurrences starting 12/14/2021 until 12/15/2022 [facility] Comment on above: 1 Occurrences starting 12/14/2021 until 12/15/2022 End: 12-23-2022 Basic metabolic 2000 panel - Serum or Plasma Basic Metabolic Panel Lab STAT S/P CABG x 2 1 Occurrences starting 12/22/2021 until 12/23/2022 [facility] Comment on above: 1 Occurrences starting 12/22/2021 until 12/23/2022 End: 09-07-2023 Basic metabolic 2000 panel - Serum or Plasma Basic Metabolic Panel Lab STAT Disruption of closure of sternum or sternotomy, subsequent encounter 1 Occurrences starting 09/06/2022 until 09/07/2023 [facility] Comment on above: 1 Occurrences starting 09/06/2022 until 09/07/2023 End: 07-21-2023 Complete blood count with white cell differential, manual CBC and differential Lab Routine 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 1 Occurrences starting 07/20/2022 until 07/21/2023 [facility] Comment on above: 1 Occurrences starting 07/20/2022 until 07/21/2023 End: 09-07-2023 Complete blood count with white cell differential, manual CBC and differential Lab Routine Disruption of closure of sternum or sternotomy, subsequent encounter 1 Occurrences starting 09/06/2022 until 09/07/2023 [facility] Comment on above: 1 Occurrences starting 09/06/2022 until 09/07/2023 End: 09-30-2021 Complete PFT with pre - post bronchodilator Complete PFT with pre - post bronchodilator PFT Routine History of chronic cough History of tobacco abuse 1 Occurrences starting 09/30/2020 until 09/30/2021 [facility] Comment on above: 1 Occurrences starting 09/30/2020 until 09/30/2021 End: 07-21-2023 Comprehensive metabolic 2000 panel - Serum or Plasma Comprehensive metabolic panel Lab Routine 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 1 Occurrences starting 07/20/2022 until 07/21/2023 [facility] Comment on above: 1 Occurrences starting 07/20/2022 until 07/21/2023 End: 04-22-2020 COVID-19/Influenza A,B Molecular COVID-19/Influenza A,B Molecular Microbiology Routine Once for 1 Occurrences starting 04/22/2020 until 04/22/2020 [facility] Comment on above: Once for 1 Occurrences starting 04/22/20 20 until 04/22/2020 End: 02-06-2025 CT Chest for screening WO contrast CT Lung Cancer Screening Imaging Routine Nicotine dependence, cigarettes, uncomplicated 1 Occurrences starting 02/07/2024 until 02/06/2025 [facility] Work Phone: Comment on above: 1 Occurrences starting 02/07/2024 until 02/06/2025 End: 01-16-2026 CT Chest for screening WO contrast CT Lung Cancer Screening Imaging Routine Nicotine dependence, cigarettes, uncomplicated Encounter for screening for malignant neoplasm of lung in current smoker with 30 pack year history or greater 1 Occurrences starting 01/16/2025 until 01/16/2026 [facility] Work Phone: Comment on above: 1 Occurrences starting 01/16/2025 until 01/16/2026 End: 11-07-2024 CT Guidance for injection of Sacroiliac joint - right XR Aspiration Injection Large Joint Right Imaging Routine Primary osteoarthritis of right hip 1 Occurrences starting 11/08/2023 until 11/07/2024 [employer] Work Phone: Comment on above: 1 Occurrences starting 11/08/2023 until 11/07/2024 End: 05-31-2025 CT Guidance for injection of Sacroiliac joint - right XR Aspiration Injection Large Joint Right Imaging Routine Primary osteoarthritis of right hip 1 Occurrences starting 05/31/2024 until 05/31/2025 [employer] Work Phone: Comment on above: 1 Occurrences starting 05/31/2024 until 05/31/2025 End: 01-22-2026 CT Guidance for injection of Sacroiliac joint - right XR Aspiration Injection Large Joint Right Imaging Routine Primary osteoarthritis of right hip 1 Occurrences starting 01/22/2025 until 01/22/2026 [employer] Work Phone: Comment on above: 1 Occurrences starting 01/22/2025 until 01/22/2026 End: 07-21-2023 CT of chest without contrast CT Chest Without Contrast Imaging Routine 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 1 Occurrences starting 07/20/2022 until 07/21/2023 [employer] Work Phone: Comment on above: 1 Occurrences starting 07/20/2022 until 07/21/2023 End: 07-21-2023 Drugs of abuse urine screening test Drugs of Abuse Screen, Urine Lab Routine 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 Abuse of other non-psychoactive substances 1 Occurrences starting 07/20/2022 until 07/21/2023 [employer] Comment on above: 1 Occurrences starting 07/20/2022 until 07/21/2023 EKG 12 Lead EKG 12 Lead ECG STAT 08/02/2020 11:44 AM EDT [employer] Work Phone: EKG 12 Lead EKG 12 Lead ECG STAT 10/21/2021 12:06 PM EDT [employer] Work Phone: EKG 12 Lead EKG 12 Lead ECG Routine 01/20/2023 3:46 AM EDT [employer] End: 07-21-2023 Hemoglobin A1c/Hemoglobin.total in Blood Hemoglobin A1c Lab Routine Pre-procedure lab exam Abnormal finding of blood chemistry, unspecified 1 Occurrences starting 07/20/2022 until 07/21/2023 [employer] Comment on above: 1 Occurrences starting 07/20/2022 until 07/21/2023 L hrt cath w/njx l ventriculography img s&i LEFT HEART CATH Angina, class III (HCC) Coronary artery disease, unspecified vessel or lesion type, unspecified whether angina present, unspecified whether [place] or transplanted heart [facility] End: 10-29-2018 MR Cervical Spine Without Contrast MR Cervical Spine Without Contrast Routine Neck pain 1 Occurrences starting 10/29/2017 until 10/29/2018 [facility] Oxygen therapy [[facility] Data Set] Initiate Oxygen Therapy Protocol Respiratory Care Routine Daily until discontinued starting 08/08/2020 [employer] Phone: Comment on above: Daily until discontinued starting 2020 Patient Education ED High Blood Pressure Hypertension [facility] Work Phone: PFT spirometry pre a nd post bronchodilator PFT spirometry pre and post bronchodilator PFT Routine Chronic obstructive pulmonary disease, unspecified COPD type ([facility]) Ordered: 02/07/2024 [facility] Comment on above: Ordered: 02/07/2024 End: 01-11-2023 Radial Artery Mapping Bilateral Radial Artery Mapping Bilateral Vascular Ultrasound Routine Coronary artery disease of [place] artery of [place] heart with stable angina pectoris ([facility]) PAD (peripheral artery disease) ([facility]) 1 Occurrences starting 11/11/2021 until 01/11/2023 [employer] Work Phone: Comment on above: 1 Occurrences starting 11/11/2021 until 01/11/2023 End: 11-30-2022 Standard chest X-ray XR Chest AP/PA and LAT Imaging Routine S/P CABG (coronary artery bypass graft) 1 Occurrences starting 11/30/2021 until 11/30/2022 [employer] Work Phone: Comment on above: 1 Occurrences starting 11/30/2021 until 11/30/2022 End: 12-14-2022 Standard chest X-ray XR Chest AP/PA and LAT Imaging Routine S/P CABG (coronary artery bypass graft) 1 Occurrences starting 12/14/2021 until 12/14/2022 [employer] Work Phone: Comment on above: 1 Occurrences starting 12/14/2021 until 12/14/2022 End: 12-22-2022 Standard chest X-ray XR Chest AP/PA and LAT Imaging Routine S/P CABG x 2 1 Occurrences starting 12/22/2021 until 12/22/2022 [employer] Work Phone: Comment on above: 1 Occurrences starting 12/22/2021 until 12/22/2022 End: 09-07-2023 Standard chest X-ray XR Chest AP/PA and LAT Imaging Routine Disruption of closure of sternum or sternotomy, subsequent encounter 1 Occurrences starting 09/06/2022 until 09/07/2023 [facility] Work Phone: Comment on above: 1 Occurrences starting 09/06/2022 until 09/07/2023 End: 09-29-2023 Standard chest X-ray XR Chest AP/PA and LAT Imaging Routine Fluid collection at surgical site, subsequent encounter 1 Occurrences starting 09/28/2022 until 09/29/2023 [facility] Work Phone: Comment on above: 1 Occurrences starting 09/28/2022 until 09/29/2023 Standard chest X-ray XR Chest AP /PA and LAT Imaging Routine Fluid collection at surgical site, subsequent encounter 09/28/2022 9:21 AM EDT [facility] End: 05-28-2019 Stress test only, exercise Stress test only, exercise Routine Chest pain, unspecified type 1 Occurrences starting 05/27/2018 until 05/28/2019 [facility] Comment on above: 1 Occurrences starting 05/27/2018 until 05/28/2019 Surgical Site Aerobi c & Anaerobic Culture Surgical Site Aerobic & Anaerobic Culture Microbiology Routine 09/07/2024 1:55 PM EDT [facility] Work Phone: End: 07-13-2023 XR Aspiration Injection Large Joint Right XR Aspiration Injection Large Joint Right Imaging Routine Primary osteoarthritis of right hip 1 Occurrences starting 07/13/2022 until 07/13/2023 [facility] Work Phone: Comment on above: 1 Occurrences starting 07/13/2022 until 07/13/2023 End: 07-09-2023 XR Hip Right With Pelvis 2-3 Views (Routine) XR Hip Right With Pelvis 2-3 Views (Routine) Imaging Routine Primary osteoarthritis of right hip 1 Occurrences starting 07/09/2022 until 07/09/2023 [facility] Work Phone: Comment on above: 1 Occurrences starting 07/09/2022 until 07/09/2023 End: 01-30-2022 XR Pelvis 1 View (Standard) XR Pelvis 1 View (Standard) Imaging Routine Pain 1 Occurrences starting 01/30/2021 until 01/30/2022 [facility] Work Phone: Comment on above: 1 Occurrences starting 01/30/2021 until 01/30/2022 End: 02-28-2026 XR Pelvis and Hip - right AP and Lateral frog XR HIP GENERAL 3V PELV/AP/LAT RIGHT Radiology Routine Pain 1 Occurrences starting 01/29/2025 until 02/28/2026 [facility] Work Phone: Comment on above: 1 Occurrences starting 01/29/2025 until 02/28/2026 Immunizations Immunization Date Immunization Notes Care Provider Torie chopra 09-06-2024 tetanus toxoid, reduced diphtheria toxoid, and acellular pertussis vaccine, adsorbed Karen Lisa [facility],PharmD [facility] 01-03-2017 tetanus toxoid, reduced diphtheria toxoid, and acellular pertussis vaccine, adsorbed Paulette ROBMORA [facility] 01-17-2016 tetanus toxoid, reduced diphtheria toxoid, and acellular pertussis vaccine, adsorbed Gail Garduno [employer] Work Phone: [facility] 06-27-2013 Td(adult) unspecifie d formulation Paulette CARBALLO [facility] 06-27-2013 tetanus and diphtheria toxoids, adsorbed, preservative free, for adult use (5 Lf of tetanus toxoid and 2 Lf of diphtheria toxoid) Gail Laureen [employer] Work Phone: [facility] NEGATED: Highlighted row has not occurred!07-29-2021 influenza virus vaccine, unspecified formulation Paulette ROBMORA [facility] Payers Date Payer Category Payer Private Health Insurance [facility] [id number] 2024 Medicare (Managed Care) 1.2. [id number] 2024 Medicare HMO [employer] P LANS [id number]. [id number] 2024 Self-pay 2023 Unknown 2023 Unknown [id number] 2022 Medicare PPO HUMANA SHAHNAZ DELONG CHOICE PPO [id number] 2022 Medicare [id number] 2021 Unknown [id number] 1.2.840.396957.1.13.239.2. [id number] 2020 Medicare AETNA MANAGED ME WALSHYURI AETNA MEDICARE PLAN (HMO) [id number] 2020-Present [phone] [address] [place] [address] [id number] 1.2.840.342691.1.13.385.2. [id number] 2020 Medicare [id number] 2020 Medicare RHONDA MANAGED Cale RAYGOZA ESSENTIAL/PLUS/CONNECT/SN P O [id number] 2020-Present [phone] [address] [place] [address] [id number] 1.2.840.967073.1.13.385.2. [id number] 2018 Medicare [id number] 1.2.840.149408.1.13.239.2. 7.3.297701.315 2017 Medicare 2011 Medicare [id number] 2.16.840.1.408873.3.249.13 2011 Medicare MEDICARE MEDICAR E PART A & B xxxxxxxxxxx 2011-Present [place] xxxxxxxxxxx [id number]. [id number] 2011 Medicare [id number] 2011 Medicare [id number] 1.2.840.580118.1.13.172.2. 7.3.242586.315 1957 Unknown [id number] 2.16.840.1.377650.3.579.2. 204 1957 Unknown [id number] 2.16.840.1.701183.3.579.2. 204 1957 Unknown [id number] 2.16.840.1.760857.3.579.2. 204 1957 Unknown [id number] 2.16.840.1.369849.3.579.2. 204 1957 Unknown [id number] 2.16.840.1.228943.3.579.2. 173 1957 Unknown [id number] 2.16.840.1.350551.3.579.2. 356 1957 Unknown [id number] 2.16.840.1.010544.3.579.2. 356 1957 Unknown [id number] 2.16.840.1.287094.3.579.2. 93 1957 Unknown [id number] 2.16.840.1.746590.3.579.2. 93 1957 Unknown [id number] 2.16.840.1.455639.3.579.2. 93 1957 Unknown [id number] 2.16.840.1.246087.3.579.2. 903 1957 Unknown [id number] 2.16.840.1.219675.3.579.2. 983 1957 Unknown [id number] 2.16.840.1.477490.3.579.2. 174 1957 Unknown [id number] 2.16.840.1.564613.3.579.2. 174 1957 Unknown [id number] 2.16.840.1.553973.3.579.2. 174 1957 Unknown [id number] 2.16.840.1.647382.3.579.2. 174 1957 Unknown [id number] 2.16.840.1.104996.3.579.2. 174 1957 Unknown [id number] 2.16.840.1.804197.3.579.2. 176 1957 Unknown [id number] 2.16.840.1.365586.3.579.2. 727 1957 Unknown [id number] 2.16.840.1.548479.3.579.2. 727 1957 Unknown [id number] 2.16.840.1.673070.3.579.2. 727 1957 Unknown [id number] 2.16.840.1.773367.3.579.2. 727 1957 Unknown [id number] 2.16.840.1.745216.3.579.2. 727 1957 Unknown [id number] 2.16.840.1.928677.3.579.2. 727 1957 Unknown [id number] 2.16.840.1.455149.3.579.2. 727 1957 Unknown [id number] 2.16.840.1.362519.3.579.2. 727 1957 Unknown [id number] 2.16.840.1.395588.3.579.2. 900 1957 Unknown [id number] 2.16.840.1.641358.3.579.2. 1243 1957 Unknown [id number] 2.16.840.1.542340.3.579.2. 902 1957 Unknown [id number] 2.16.840.1.054195.3.579.2. 902 1957 Unknown [id number] 2.16.840.1.196919.3.579.2. 902 1957 Unknown [id number] 2.16.840.1.755597.3.579.2. 902 1957 Unknown [id number] 2.16.840.1.361639.3.579.2. 902 1957 Unknown [id number] 2.16.840.1.650264.3.579.2. 90 1957 Unknown [id number] 2.16.840.1.528268.3.579.2. 90 1957 Unknown [id number] 2.16.840.1.633115.3.579.2. 90 1957 Unknown [id number] 2.16.840.1.205549.3.579.2. 900 1957 Unknown [id number] 2.16.840.1.534783.3.579.2. 90 1957 Unknown [id number] 2.16.840.1.427835.3.579.2. 903 1957 Unknown [id number] 2.16.840.1.032616.3.579.2. 903 1957 Unknown [id number] 2.16.840.1.382069.3.579.2. 903 1957 Unknown [id number] 2.16.840.1.707548.3.579.2. 903 1957 Unknown [id number] 2.16.840.1.005186.3.579.2. 903 1957 Unknown [id number] 2.16.840.1.326821.3.579.2. 727 1957 Unknown [id number] 2.16.840.1.473844.3.579.2. 727 Medicare xxxxxxxxxx 2.16.840.1.789310.3.249.13 Unknown [id number] Self-pay [id number] 2.16.840.1.455621.3.140.1. 86057.5.4 Unknown [id number] 2.16.840.1.568066.3.579.2. 462 Unknown [id number] 2.16.840.1.490717.3.579.2. 462 Social History Date Type Detail Facility Start: 08-26-2017 End: 01-28-2025 Tobacco smoking status [facility] Current every day smoker [employer] Work Phone: End: 11-20-2021 History of tobacco use Cigarette Smoker [employer] Work Phone: Start: 08-26-2017 End: 04-21-2020 Cigarettes smoked current (pack per day) - Reported [employer] Phone: Start: 1955 Sex Assigned At Not on file [employer] Work Phone: Start: 10-28-2017 Alcohol Comment occasional [facility] Start: 04-15-2019 End: 07-07-2022 Alcohol intake Current drinker of alcohol (finding) [facility] Start: 06-19-2019 Alcohol Comment 20 tall boy beers a day for the last several days [facility] Start: 02-28-2020 End: 07-07-2022 Tobacco use and exposure Current user [facility] Start: 02-28-2020 History SDOH Alcohol Frequency 2 [facility] Start: 10-11-2021 End: 09-06-2024 Exposure to SARS-CoV-2 (event) Not sure [facility] Start: 12-14-2019 End: 04-22-2020 Tobacco use and exposure Never used [facility] Start: 12-16-2019 End: 04-22-2020 Alcohol intake Ex-drinker (finding) [facility] Start: 08-02-2020 End: 06-24-2022 Tobacco smoking status NHIS Former smoker [employer] Phone: End: 11-20-2021 History of tobacco use Current smoker [employer] Phone: Start: 08-02-2020 End: 08-08-2020 Alcohol intake Current non-drinker of alcohol (finding) [employer] Phone: Start: 08-29-2020 History SDOH Alcohol Frequency 99 BON [employer] Phone: Start: 08-29-2020 History SDOH Alcohol Comment none sine 06/24/2018 [employer] Phone: Start: 11-12-2021 Tobacco Comment Down to 8 cig daily [facility] Start: 07-29-2021 End: 01-26-2024 Tobacco smoking status Heavy tobacco smoker (finding) [facility] Start: 04-17-2012 Tobacco smoking status Never [facility] Start: 04-21-2020 End: 08-11-2022 Sex Assigned At Male [facility] Tobacco smoking status Unknown if ever [facility] Work Phone: Start: 06-24-2022 Tobacco Comment 6 CIGARETTES DAILY [facility] Start: 02-19-2022 Alcohol Comment PT STATES HE HAS BEEN DRINKING DAILY FOR THE PAST WEEK [facility] Start: 07-01-2022 Tobacco Comment 2-3 CIGARETTES DAILY [facility] Start: 07-07-2022 Tobacco Comment Trying to quit smoking [facility] Start: 08-03-2022 Alcohol Comment PT STATES HE HAS BEEN DRINKING DAILY FOR THE PAST WEEK. no drinking for 6 months [facility] Start: 2018 Gender identity Identifies as male gender (finding) [facility] Start: 2018 Sexual orientation Heterosexual (finding) [facility] Start: 09-07-2022 Tobacco Comment 4 to 4 CIGARETTES DAILY [facility] Start: 01-20-2023 History SDOH Alcohol Frequency 1 BON [employer] [facility] Start: 01-20-2023 History SDOH Alcohol Std Drinks 0 BON [employer] Start: 1955 Sex Assigned At Male [facility] History of tobacco use Passive smoker [facility] How often to you hav e a drink containing alcohol? Never [employer] Start: 08-11-2024 Sex Male (finding) [facility] Sexual Orientation [facility] Start: 01-20-2024 Tobacco Use Tobacco Use [facility] Start: 12-14-2019 Tobacco smoking status NHIS Never smoked tobacco [facility] Medical Equipment Procedure Code Equipment Code Equipment Origin al Text Equipment Identifier Dates Hemostat 8 X 12.5cm X 10mm Surgifoam Gelatin Sponge - Sn/A [id number] Start: 11-20-2021 Putty 5cc Grafto n Dbm - [id number] Start: 08-06-20[address] 4[address] Sternalock - [id number] Start: 08-06-2022 Comment on above: Description: Load #1 9 Sealant 4ml Pleural Air Leak Progel Sterl - [id number] [id number] Start: 08-19-2022 Plate 12hl Wide Ladder S[employer] - [id number] Start: 08-06-2022 Comment on above: Description: Load #1 9 Screw 2.4 X 20mm Canc Sternalock - Sna [id number] Start: 08-19-2022 Comment on above: Description: Load 1- 3 [id number] Hemostat 4 X 8in Surgicel - Sn/A [id number] Start: 11-20-2021 Screw 2.4 X 20mm Canc Sternalock - [id number] Start: 08-19-2022 Comment on above: Description: Load #1 9 for 12 screws and 5 screws in load #27 Screw 2.4 X 20mm Canc Sternalock - [id number] Start: 08-06-2022 Comment on above: Description: [...] Assessment Result Facility 09-27-2023 Functional Status N/A [facility] 05-05-2023 Functional Status N/A [facility] 07-13-2022 Functional Status N/A [facility] 06-10-2022 Functional Status N/A [facility] [place] [facility] Status N/[facility] Status Date Assessment Result Facility 01-28-2025 Cognitive function Level Of Cons ciousness Awake;Alert;Appropriate;Follow s Commands [facility] Work Phone: Clinical Notes 09-30-2020 to 2025 Note Date & Type Note Facility 2025 Note HNO ID: [id number] Author: TASHA ACUNA MD Service: ? Author Type: Physician Type: Progress Notes Filed: 2025 14:12 Note Text: Family Medicine OUTPATIENT VISIT 2025 CC: Establish care HPI: 70 year old male patient with a history of Substance abuse, ACTIVE COCAINE AND ETOH ABUSE Denies IVDU Chronic hip and back pain on gabapentin, flexeril, naproxen and actively being prescribed hydrocodone-acetaminophen by pain management Tobacco abuse, about 60 years, about 3/4 pack per day. HTN , nifedipine HLD on lipitor, last LDL 37 Mild internal carotid stenosis 02/07, under 50% 50-69% left extra cranial internal carotid stenosis CAD s/p CABG in 2021 Here to establish care Being prescribed hydrocodone-acetaminophen by pain management Last urine tox had cocaine positivity in 09/08. Here to establish care. Reports when he takes gabapentin TID it relieves his pain but feels it is somewhat sedating. BP at home: 130-180/90-118 Measuring every other day Working on quitting tobacco but does not want chantix as he feels it made him irritable before. Wants to quit on his own and feels he can do this by our next visit in two months. Has not taken his BP meds for 2-3 weeks he states and not sure if he took any this AM. He had a CABG in 2021 but stopped following up because he got mad at them, meaning his cardiologists. Reports he was on asa before and he stopped only because he became frustrated with his cardiologists before, not due to intolerance. States he has chronic shortness of breath and used to use an inhaler. He has stable mild shortness of breath with exertion. No chest pain, PND or orthopnea. No cough. No past hx of MT or stents. Denies LE edema. 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 States he threw out his hydrocodone-acetaminophen as he is a Orthodoxy and does not believe in it's use. I asked him why he had a positive cocaine urine tox from a year ago, and he states he does not know how it could have been positive. However, later this visit, he becomes emotional and states he had an emotional crisis last week, had an issue with housing instability and abused ETOH and cocaine for 4 days. Says he turned back to God and then a pals specialist helped him find housing in a Orthodoxy house of some sort. He denies that he wants social work support at this time and says he is committed to sobriety. States he is not using opiates. Does have stable housing right now. Review of Systems PAIN ASSESSMENT: as above GENERAL: No weight loss, or fevers HEENT: Negative for frequent or significant headaches RESPIRATORY: Negative for cough, wheezing. Endorsing Shortness of Breath as above CARDIOVASCULAR: Negative for chest pain, palpitations, PND or orthopnea GI: No nausea, vomiting, or diarrhea or abdominal pain. No SD bleeding or melana : No history of dysuria, frequency, urgency, or change in urine appearance NEURO: No history of headaches, numbness, weakness, or changes to vision or hearing Health maintenance: Abdominal Aortic Aneurysm Screening Never done Pneumococcal Vaccine: 50+(1 of 2 - PCV) Never done Prostate Cancer Screening Discussion Never done Colorectal Cancer Screening Never done Shingrix Vaccine(1 of 2) Never done Advance Directive Discussion Never done Medicare Advantage Annual Wellness Visit Never done Allergies: ALLERGIES Allergen Reactions Lisinopril Swelling Facial swelling Medications: NIFEdipine XL (ADALAT CC) 30 mg 24 hr tablet Take 1 tablet by mouth once daily. atorvastatin (LIPITOR) 40 mg tablet Take 1 tablet by mouth once daily. gabapentin (NEURONTIN) 800 mg tablet Take 1 tablet by mouth three times a day. aspirin, enteric coated (ECOTRIN LOW STRENGTH) 81 mg EC tablet Take 1 tablet by mouth once daily. 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 No pertinent family history. BP 124/90 Pulse 82 Resp 16 Ht 176.5 cm (5' 9.5) Wt 93.4 kg (206 lb) SpO2 96% BMI 29.98 kg/m? 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 No abnormal posturing or positioning. Speech is normal. Strength grossly intact. RESP: Clear lungs bilateral with good air entry, No increased work of breathing CVS: RRR, No murmur. Pulses 2+. GI: Abdomen is soft, non distended, non tender. No masses or hepatomegaly appreciated. No elevated JVD. Skin/Other: No rashes or lesions. HEENT: pupils equal Extremities: No peripheral edema, swelling or erythema of lower extremities. Labs: Reviewed the following: Pertinent labs as outlined above Component Ref Range AND Units 4 mo ag (more content not included)... [facility] 01-28-2025 Discharge summary [facility] 01-28-2025 Hospital Discharge instructions Additional Instructions Follow-up with a local primary care physician as soon as possible. I gave you 2 referrals 1 to the [facility] or [facility] which is a large practice of primary care physicians. Call both them to see when they get you in. Gabapentin as needed for pain. Restart your nifedipine this evening. I would take it at night an hour before you go to bed. [facility] Work Phone: 01-28-2025 Discharge summary Note Date/Time January 28, 2025 6:55pm [facility] Medical Records Department [address] [facility] [place] [address] Emergency Department Summary 01/28/25 MR#: [id number] Acct: [id number] Name: MARYSE MAK Rep #:[id number] : 1955 69 From: Darren Bahena MD PCP: Care Physician,No Primary Status :REG ER Location: ED HPI History of Present Illness Chief Complaint: Hypertension Informant: patient Onset/Context/Timing Onset: Weeks Context: Gradual Onset Timing: Continuous Current Severity: Mild Maximum Severity: Mild Narrative Narrative: 69-year-old male originally from [place] now moved to [place] has been there abouta week or so. Has been out of his blood pressure meds for 2 to 3 weeks. Says blood pressure has been running high. He is unsure what he was on. Said he cannot take FELIX inhibitors because he had angio edema with those. He says that he has felt off with malaise. Denies vomiting or diarrhea. No chest pain or severe headaches. Prior similar symptoms: Yes Recent Illness/Hospitalization: No [facility] Medical History Carotid arterial disease Hypertension Neuropathy Vertigo Coronary atherosclerosis of bypass graft Home Medications ?Medication ?Instructions ?Recorded ?Last Taken ?Type aspirin 81 mg tablet,delayed 81 mg PO DAILY 01/19/24 0 01/19/24 History release ncyhwjffqkswunl-hthhsltpkymrxvl-XB 5 ml PO 4X/DAY PRN PRN cough 01/19/24 Unknown History 2 mg-30 mg-10 mg/5 mL oral syrup gabapentin 800 mg tablet 800 mg PO TID 01/19/2401/18 History hydrocodone 7.5 mg-acetaminophen 1 tab PO TID PRN PRN pain 01/19/24 01/19/24 History 325 mg tablet atorvastatin 40 mg tablet 40 mg PO QHS #30 tabs Unknown Rx gabapentin 800 mg tablet 800 mg PO TID 20 days #60 ta bs 01/28/25 Unknown Rx nifedipine 30 mg tablet,extended 30 mg PO DAILY 30 day s #30 tabs 01/28/25 Unknown Rx release Allergy/AdvReac Type Severity Reaction Status Date / Time lisinopril Allergy Angioedema Verified 01/28/25 16:48 Social History Smoking Status: Current every day smoker tobacco type: cigarettes ROS ROS ED ROS Narrative Generalized malaise. Constitutional Constitutional ED: Denies chills or fever(s) Eyes Eyes: Denies blurry vision Cardiovascular Cardiovascular: Denies chest pain or palpitations Respiratory/Chest Respiratory/Chest: Denies cough or dyspnea Gastrointestinal Gastrointestinal: Denies abdominal pain, constipation, diarrhea, melena, nausea or vomiting Genitourinary Genitourinary ED: Denies dysuria or hematuria Musculoskeletal Musculoskeletal: Denies arthralgias or back pain Integumentary Denies abscess Neurologic Neurologic: Denies headache(s) Psychiatric Psychiatric: Denies anxiety or depression Hematologic/Lymphatic Hematologic/Lymphatic: Reports none Allergic/Immunologic Allergic/Immunologic ED: Denies mouth swelling, tongue swelling or urticaria EXAM Physical Exam Narrative Exam Narrative: 69-year-old male sitting upright in the chair and in stood up and got in the bed. Vital signs are stable afebrile is blood pressure is elevated 179/111. Does not look septic GI distress. Is a family member I believe with him. H EENT exam pupils round react light. Moist membranes. No facial droop. No trauma. Neck nontender. Back nontender. Prior back surgical scars. Lungs clear to auscultation bilaterally. Heart regular rhythm rate about 70 no murmur. Chest wall ribs nontender. Abdomen soft nontender. Moving all 4 extremities. 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 Dorsi plantarflexion intact. Normal strength. Normal radial pulses. Calves are nontender without edema or cords. Neurologically he is awake and alert. Answering questions following commands. Const Vital Signs: 01/28/25 16:46 01/28/25 17:18 Temperature 98.4 F Temperature Source Oral Pulse Rate 67 Respiratory Rate 18 Respiratory Pattern Normal Blood Pressure 179/111 H Blood Pressure Mean 133 Pulse Ox 99 Oxygen Delivery Method Room Air Positive well nourished and well developed; Negative for cachectic or unkempt General Appearance ED: well developed and NAD; Negative for unkempt, cachectic, cyanotic, diaphoretic or pallor Nutritional Appearance: Negative for cachectic HEENT Reports moist mucous membranes Eyes PERRL and EOMs intact bilaterally Neck no lymphadenopathy, supple and no JVD Chest Wall inspection of chest normal and palpation of chest normal Resp normal respiratory effort and clear to auscultation bilaterally Cardio regular rate, regular rhythm, S1 normal heart sound, S2 normal heart sound and no murmurs GI normal to inspection, nondistended, normoactive bowel sounds, non-tender and non-distended Auscultation: normoactive bowel sounds Palpation: soft; Negative for tender, guarding, mass or rebound tenderness present Back/Spine no CVA tenderness Extremity normal to inspection General Extremety ED: Negative for edema or tenderness General Extremity: Negative for edema Neuro oriented x3 and CN's II-XII intact bilaterally Sensorium / Orientation: alert Motor Exam: strength 5/5 throughout Psych mental status grossly normal Appearance: Negative for unkempt Skin no rashes or lesions noted, no wounds and skin turgor normal General Skin Exam: Negative for jaundice or pallor Rashes: No rashes noted Trauma: Negative for abrasion Wounds: Negative for wounds noted MDM MDM MDM Narrative Medical decision making narrative: 69-year-old male recently moved from [place] to [place] has been out of his blood pressure medications for 3 weeks is a general malaise. We treated with metoprolol p.o. CBC and chemistry be obtained. Otherwise exam is benign. Repeat exam patient is doing well at 6:50 PM. He ambulated bathroom without anydifficulty. His current blood pressure was 175/102. I will write him for his nifedipine 30 mg daily. For 30 days. Gabapentin 800 3 times daily for 20 days. And I will give him local primary care physicians to follow-up with and the [facility]. Patient is comfortable with the plan. History & Record Review Discussion w/independent historian: Patient Lab Data Attestation: I reviewed the patient's lab results. Lab results narrative: CBC shows a white count 8.5. H&H is 16 and 45. Platelets 235. Unremarkable. Electrolytes showed gap of 11. BUN and creatinine of 13 and 0.9. Glucose 105. Labs: Laboratory Results - last 24 hr 01/28/25 17:13 WBC 8.5 RBC 5.10 Hgb 16.0 Hct 45.6 MCV 89.4 MCH 31.4 MCHC 35.1 RDW Std Deviation 44.3 H RDW Coeff of Tierra 13.5 Plt Count 235 MPV 10.2 Immature Gran % (Auto) 0.600 Neut % (Auto) 66.1 Lymph % (Auto) 24.1 Dubois % (Auto) 6.6 Eos % (Auto) 2.2 Baso % (Auto) 0.4 Absolute Neuts (auto) 5.6 Absolute Lymphs (auto) 2.04 Nucleated RBC % 0 Sodium 140 Potassium 4.1 Chloride 105 Carbon Dioxide 24.8 Anion Gap 11 BUN 13 Creatinine 0.96 Estim Creat Clear Calc 81.96 Est GFR (MDRD) Non-Af 87 BUN/Creatinine Ratio 13.8 Glucose 105 H Calcium 9.6 Discharge Plan Triage Chief Complaint: Hypertension ED Provider: Darren Bahena Dx/Rx/DC Orders Clinical Impression: Chronic hypertension, History of coronary artery bypass graft x 2, Has run out of medications, Chronic pain Instructions: ED High Blood Pressure Hypertension Prescriptions: New nifedipine 30 mg tablet extended release 30 mg PO DAILY 30 Days Qty: 30 0RF gabapentin 800 mg tablet 800 mg PO TID 20 Days Qty: 60 0RF No Action gabapentin 800 mg tablet 800 mg PO TID hydrocodone-acetaminophen 7.5-325 mg tablet 1 tab PO TID PRN PRN (Reason: pain) aspirin 81 mg tablet,delayed release (DR/EC) 81 mg PO DAILY mqzubndwntbdypz-rnfjmqupu-TK 2-30-10 mg/5 mL syrup 5 ml PO 4X/DAY PRN PRN (Reason: cough) atorvastatin 40 mg tablet 40 mg PO QHS Qty: 30 2RF Primary Care Provider: Care Physician,No Primary Referrals: Rayo Jaimes MD [Non-Staff] - Maribel Cole MD [Med Staff - [employer]] - As soon as possible Babita Head [facility], REFRIGERATOR TESTER-C [[facility]] - As soon as possible Activity Restrictions/Additional Instructions: Follow-up with a local primary care physician as soon as possible. I gave you 2referrals 1 to the [facility] across [facility] which is a large practice of primary care physicians. Call both them to see when they get you in. Gabapentin as needed for pain. Restart your nifedipine this evening. I would take it at night an hour before you go to bed. Print Language: Lebanese Disposition Disposition: Home, Self Care What to do if you have Problems For any increased pain, shortness of breath, bleeding, nausea or vomiting, chestpain, or any unexpected problems, contact your Primary Care Provider. Call [facility] ([phone]) or report to the closest Emergency Room. Call 911 if necessary. 01/28/251854 <Electronically signed by Darren Bahena MD> Cosigner Signature (if applicable): CC: No Primary Care Physician ~ Signed [facility] Work Phone: 1(803) 467-838309-08-2025 NoteOPG [address] (11) [facility] [address] [facility] [id number] Maryse Mak is a 69 y.o. [...] MD AUTHENTICATED BY MARIELA MORGAN, ON 01/22/2025 15:42:25[facility] of Present illness Narrative* Mariela Morgan MD - 01/22/2025 3:41 PM EDT OPG [address] (11) [facility] [address] [facility] [id number] Maryse Mak is a 69 y.o. male [...] 02/19/2025). Mariela Morgan MD documented in this [id number] History of Present illness Narrative* Karen Lisa RPh, PharmD - 09/11/2024 3:44 PM EDT Negative final blood cultures . No further action needed. * Karen Lisa RPh, PharmD - 09/08/2024 2:22 PM EDT Negative preliminary blood cultures. No further action needed. documented in this [id number] Consult note* Alexandria Bejarano RN - 09/11/2024 3:33 PM EDTAssociated Order(s): IP CONSULT TO CARE MANAGEMENT Care Management [...] car temporarily until he drives back to [place]. CM provided a street card and community resource guide. Assessment and Background Information: Type of Residence: Private residence Holistic Assessment Medication adherence problem:: No History of falls in last 6 months:: No Family aware of the patient's advance care planning wishes:: Yes Do you have any cultural/spiritual connections or beliefs that would impact how we deliver your care?: No Chronic pain:: No [id number] Consult note* Alexandria Bejarano RN - 09/11/2024 3:33 PM EDTAssociated Order(s): IP CONSULT TO CARE MANAGEMENT Care Management [...] car temporarily until he drives back to [place]. CM provided a street card and community resource guide. Assessment and Background Information: Type of Residence: Private residence Holistic Assessment Medication adherence problem:: No History of falls in last 6 months:: No Family aware of the patient's advance care planning wishes:: Yes Do you have any cultural/spiritual connections or beliefs that would impact how we deliver your care?: No Chronic pain:: No * Gosia Ashford, PT - 09/08/2024 10:05 AM EDT Physical Therapy Physical Therapy Vestibular Note Impressions: [...] Normal Limits (WNL) Positional Testing: Positional Testing Stafford Hallpike: Within Normal Limits (WNL) Modified Side Lying Test: Within Normal Limits (WNL) Roll Test: Within Normal Limits (WNL) For complete Physical Therapy Vestibular assessment, treatment, and education, refer to the Vestibular flowsheet and Plan of Care documenation. This note and corresponding flowsheets stand as the Discharge Summary upon patient discharge from the hospital or completion of the Physical Therapy Plan of Care. 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 Therapy Services Needed After Discharge: No PT [...] (none) Prior Level of Function Level of [place] - Transfers/Ambulation/Mobility: Independent with functional transfers, Independent with household ambulation, Independent with community ambulation Level of [place] - ADLs: Independent Level of [place] - Homemaking: Independent Driving: Patient drives Past Medical History: Diagnosis Date Alcohol abuse 06/19/2019 Arthritis Chronic back pain Chronic obstructive pulmonary disease (HCC) 02/07/2024 Clotting disorder DVT Cocaine abuse ([facility]) 10/28/2017 Coronary artery disease moderate stenosis of [...] Angiogram; Surgeon: Minoo Grimm MD; Location: 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; Service: Cardiovascular CV IR INTERVENTIONAL RADIOLOGY N/A 09/01/2022 Procedure: VR Aspiration Sternal seroma; Surgeon: Florencio Chambers MD; Location: IR LAB; Service: Interventional Radiology HC LEFT HEART CATH N/A 11/07/2021 Procedure: Left Heart Cath; Surgeon: Minoo Grimm MD; Location: 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; Service: Cardiovascular INCISION AND DRAINAGE HAND/FINGER Right 09/07/2024 Procedure: IRRIGATION AND DEBRIDEMENT OF RIGHT THUMB AND FLEXOR TENDON SHEATH; Surgeon: Aristeo Beavers MD; Location: [facility] Main OR; Service: Orthopedic; Laterality: Right; left arm leg sx right and left blood clots Bilateral 2009 in [facility] SHOULDER SURGERY STERNAL WIRING N/A 08/06/2022 Procedure: [...] hospital or completion of Physical Therapy Plan. * Sebas Howard, PETE-Ruel - 09/06/2024 6:41 PM EDTAssociated Order(s): IP CONSULT TO HAND SURGERY Images from the original note were not included. CONSULT NOTE Patient Name: Maryse Mak Admit Date: [id number] MR #: [id number] : 1955 Physicians: Rayo Jaimes MD (Family); [...] admission for IV abx, abx continued from [place] - Begin BID warm soapy soaks with packing changes - Multimodal pain control - Hand surgery well reassess in the AM - If no significant improvement seen patient may require formal I&D - NPO at midnight as precaution - Please contact hand surgery RUCHI production officer with questions/concerns Chief Complaint/Reason for Visit: Right hand pain, concern for FTS History of Present Illness: Maryse Mak is a 69 y.o. right hand dominant male presenting from [facility] with c/o right hand pain 2/2 reported [...] (HCC) 02/07/2024 Clotting disorder DVT Cocaine abuse ([facility]) 10/28/2017 Coronary artery disease moderate stenosis of [...] Angiogram; Surgeon: Minoo Grimm MD; Location: 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; Service: Cardiovascular CV IR INTERVENTIONAL RADIOLOGY N/A 09/01/2022 Procedure: VR Aspiration Sternal seroma; Surgeon: Florencio Chambers MD; Location: IR LAB; Service: Interventional Radiology HC LEFT HEART CATH N/A 11/07/2021 Procedure: Left Heart Cath; Surgeon: Minoo Grimm MD; Location: 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; Service: Cardiovascular left arm leg sx right and left blood clots Bilateral 2009 in [facility] SHOULDER SURGERY STERNAL WIRING N/A 08/06/2022 Procedure: [...] to be held in flexion at this time.He does endorse pain with passive extension of [...] 09/07/2024 5:58 AM EDT documented in this [id number] NoteMEDONE DISCHARGE SUMMARY Maryse Mak Account: [id number] Admitted: 09/06/2024 Discharge Date/Time: 09/11/24 / 4:52 PM Handoff to PCP Routine hospital follow up Follow up with Ortho hand - Dr Beavers in 1 week Clinical Summary Maryse Mak is a 69 y.o. male with a history of CAD, HTN who presented to the [place] ED for right had cellulitis, ortho evaluated and had concern for flexor tenosynovitis. S/p Vanc and zosyn and patient transferred to [facility] 09/06/2024 for hand surgery evaluation. Trop 23-21, CTA H/n without acute infarct. Right Hand Cellulitis: with concern for flexor tenosynovitis in setting of pain with passive extension, ascending lymphangitis. 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 Admit x-ray right hand without acute findings. [...] seeing him at least once, someone in [place] can take out sutures DW pt at length. Pt is moving to [place], advised he should try to follow up [...] . Quantity: 30 tablet naloxone 4 mg/actuation Al[place] Commonly known as: Narcan Administer 1 spray [...] mouth every 6 ( (more content not included)...[facility]04-28-2025 Hospital course Narrative* Brooke Hernandes MD - 09/11/2024 2:29 PM EDT MED[facility] DISCHARGE SUMMARY Maryse Mak Account: [id number] Admitted: 09/06/2024 Discharge Date/Time: 09/11/24 4:52 PM Handoff to PCP Routine hospital follow up Follow up with Ortho hand - Dr Beavers in 1 week Clinical Summary Maryse Mak is a 69 y.o. male with a history of CAD, HTN who presented to the [place] ED for right had cellulitis, ortho evaluated and had concern for flexor tenosynovitis. S/p Vanc and zosyn and patient transferred to [facility] 09/06/2024 for hand surgery evaluation. Trop 23-21, CTA H/n without acute i nfarct. Right Hand Cellulitis: with concern for flexor tenosynovitis in setting of pain with passive extension, ascending lymphangitis. 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 Admit x-ray right hand without acute findings. MRI Rt hand with thumb cellultis and soft tissue swelling superficial to thumb flexor tendon, S/p I&D by hand surgery in ED. S/p I/D of Rt thumb flexor tenos ynovitis by Dr Beavers. OR Cx S. Pyogens. [...] lb) SpO2 94% BMI 27.80 kg/m S: DW Dr Beavers, ok to mt today, ok 14 days total ABX. recommend seeing him at least once, someone in [place] can take out sutures DW pt at length. Pt is moving to [place], advised he should try to follow up with Dr Beavers at least once. Pt is staying out of his truck, does not want homeless shelters. Has friends but does not want tostay with them. Has kids but he does not want to call them and stay with them. He prefers to stay in his car. Discussed importance of keeping wound clean, BID soapy soaks as per hand recommendations.Discussed stopping smoking and cocaine and it can [...] . Quantity: 30 tablet naloxone 4 mg/actuation Alton Commonly known as: Narcan Administer 1 spray [...] Physician(s) Family: Rayo Jaimes MD, , Address: [address] [place] [id number] Follow Up: Aristeo Beavers MD [address] [facility] [address] Schedule an appointment as soon as possible for a visit in 1 week(s) Orthopedics and Sports Medicine [phone] Schedule an appointment as soon as possible for a visit Rayo Jaimes MD [address] [place] [address] [phone] Schedule an appointment as soon as possible for a visit in 1 week(s) Additional Information: Patient seen and examined day of discharge. For more information regarding patient's care, including complete radiology reports, please contact [facility] at Patient instructions, including activity, were given to the patient/family at discharge. Please seethe After Visit Summary in the medical record for details. Time spent on discharge: > 30 minutes Completed by: Brooke Hernandes MD on 09/11/24, 4:52 PM documented in this [id number] NoteDaily Progress Note Assessment/Plan: 69 y/o male with a history of right thumb infection who is now s/p I&D with Dr. Beavers (DOS: 09/07/2024) -finger stable in appearance -- improved motion today -Continue BID warm, soapy water soaks -abx per primary team -Stable for discharge today from hand surgery standpoint. -patient is requesting follow up in [place] as he is moving there Subjective/Objective: Doing [...] 114/71 AUTHENTICATED BY MAURA LORENZO, ON 09/11/2024 14:06:34[facility]04-28-2025 History of Present illness Narrative* Maura Lorenzo CNP - 09/11/2024 1:54 PM EDT Daily Progress Note Assessment/Plan: 69 y/o male with a history of right thumb infection who is now s/p I&D with Dr. Beavers (DOS: 09/07/2024) -finger stable in appearance -- improved motion today -Continue BID warm, soapy water soaks -abx per primary team -Stable for discharge today from hand surgery standpoint. -patient is requesting follow up in [place] as he is moving there Subjective/Objective: Doing ok today -- he notes improved swelling On exam, he is alert and oriented. No acute distress. RUE: Volar thumb incision is well approximated with sutures. No purulence was able to to expressed.Swelling stable from previous photos, no fluctuance. Ecchymosis [...] 98 Resp: [16-18] 16 BP: (114-152)/(67-85) 114/71 * Brooke Hernandes MD - 09/10/2024 10:12 AM EDT [facility] 09/10/2024 Maryse Mak 1955 [id number] Assessment/Plan: Maryse Mak is a 69 y.o. male with a history of CAD, HTN who presented to the [place] ED for right had cellulitis, ortho evaluated and had concern for flexor tenosynovitis. S/p Vanc and zosyn and patient transferred to [facility] 09/06/2024 for hand surgery evaluation. Trop 23-21, WBC 19.29, CRP 194, UDS + for cocaine and opiates. CTA H/n without acute infarct. Right Hand Cellulitis: with concern for flexor tenosynovitis in setting of pain with passive extension, ascending lymphangitis. 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 Admit x-ray right hand without acute findings. MRI Rt hand with thumb cellultis and soft tissue swelling superficial to thumb flexor tendon, S/p I&D by hand surgery in ED. S/p I/D of Rt thumb flexor tenos ynovitis. OR Cx S. Pyogens. Started Vancomycin, Zosyn [...] control ride Subjective: Labs / Testing / Search Optimization Analyst notes reviewed : BMP, CBC, Ortho High [...] days Lab Units 09/06/24 1322 INR 1.1 * Florencio Sharma MD - 09/10/2024 8:36 AM EDT Images from the original note [...] thumb incision is well approximated with sutures. [place] drain remains in place, facilitating some serosanguinous [...] 72 Resp: [15-18] 18 BP: (124-146)/(71-90) 127/80 * Brooke Hernandes MD - 09/09/2024 11:19 AM EDT [facility] Inpatient Progress Note 09/09/2024 Maryse Mak 1955 [id number] Assessment/Plan: Maryse Mak is a 69 y.o. male with a history of CAD, HTN who presented to the [place] ED for right had cellulitis, ortho evaluated and had concern for flexor tenosynovitis. S/p Vanc and zosyn and patient transferred to [facility] 09/06/2024 for hand surgery evaluation. Trop 23-21, WBC 19.29, CRP 194, UDS + for cocaine and opiates. CTA H/n without acute infarct. Right Hand Cellulitis: with concern for flexor tenosynovitis in setting of pain with passive extension, ascending lymphangitis. 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 Admit x-ray right hand without acute findings. MRI Rt hand with thumb cellultis and soft tissue swelling superficial to thumb flexor tendon, S/p I&D by hand surgery in ED. S/p I/D of Rt thumb flexor tenos ynovitis. OR Cx S. Pyogens. Started Vancomycin, Zosyn [...] ortho hand Subjective: Labs / Testing / Search Optimization Analyst notes reviewed : BMP, CBC, Pharm High [...] Ht 6' Wt 93 kg (205 lb) LnT638% BMI 27.80 kg/m General: NAD Eyes: anicteric [...] days Lab Units 09/06/24 1322 INR 1.1 * Henry Robles MD - 09/09/2024 9:55 AM EDT Images from the original note [...] 58 Resp: [16-18] 18 BP: (123-136)/(74-81) 123/81 * Nikki Hassan PA-C - 09/08/2024 12:28 PM EDT Daily Progress Note Assessment/Plan: 69 y/o male [...] thumb incision is well approximated with sutures. [place] drain remains in place, facilitating some serosanguinous [...] 57 Resp: [11-18] 17 BP: (109-142)/(69-99) 128/69 * Sebas Solis RN - 09/08/2024 11:54 AM EDT Anesthesia Progress Note 1 Day Post-Op Procedure(s): IRRIGATION AND DEBRIDEMENT OF RIGHT THUMB AND FLEXOR TENDON SHEATH Assessment / Plan Comment: Post anesthesia follow up visit: unable to speak with patient. Medical Staff at bedside. Temp: [36.4 C-37.2 C] 36.6 C Heart Rate: [57-79] 57 Resp: [11-18] 18 BP: (109-142)/(69-99) 128/69 SpO2: [88 %-99 %] 99 % * Brooke Hernandes MD - 09/08/2024 8:56 AM EDT [facility] Inpatient Progress Note 09/08/2024 Maryse Mak 1955 [id number] Assessment/Plan: Maryse Mak is a 69 y.o. male with a history of CAD, HTN who presented to the [place] ED for right had cellulitis, ortho evaluated and had concern for flexor tenosynovitis. S/p Vanc and zosyn and patient transferred to [facility] 09/06/2024 for hand surgery evaluation. Trop 23-21, WBC 19.29, CRP 194, UDS + for cocaine and opiates. CTA H/n without acute infarct. Right Hand Cellulitis: with concern for flexor tenosynovitis in setting of pain with passive extension, ascending lymphangitis. 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 S/p I&D by hand surgery in ED. Twicedaily warm soapy soaks. Continue Vancomycin. Transitioned zosyn to Rocephin on admit. Wound and Bcxadmit NGTD Hand surgery plan OR 09/07/24 . [...] ortho hand Subjective: Labs / Testing / Search Optimization Analyst notes reviewed : BMP, CBC, OR report High risk meds that require intensive monitoring : caty Dizziness improving Pain in hand improving, able [...] Ht 6' Wt 93 kg (205 lb) [id number]% BMI 27.80 kg/m General: NAD Eyes: anicteric ENT: neck supple Cardiovascular: Regular rate, no murmur Respiratory: Clear to auscultation, symmetric air entry Gastrointestinal: Soft, non tender, non distended, positive bowel sounds Genitourinary: no CVA tenderness Musculoskeletal: Right hand swelling, pain to palpation, pain with passive extension unable to makefist secondary to pain Skin: warm, dry, no [...] days Lab Units 09/06/24 1322 INR 1.1 * Brooke Hernandes MD - 09/07/2024 8:51 AM EDT [facility] Inpatient Progress Note 09/07/2024 Maryse Mak 1955 [id number] Assessment/Plan: Maryse Mak is a 69 y.o. male with a history of CAD, HTN who presented to the [place] ED for right had cellulitis, ortho evaluated and had concern for flexor tenosynovitis. S/p Vanc and zosyn and patient transferred to [facility] 09/06/2024 for hand surgery evaluation. Trop 23-21, WBC 19.29, CRP 194, UDS + for cocaine and opiates. CTA H/n without acute infarct. Right Hand Cellulitis: with concern for flexor tenosynovitis in setting of pain with passive extension, ascending lymphangitis. 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 S/p I&D by hand surgery in ED. Twicedaily warm soapy soaks. Continue Vancomycin. Transitioned zosyn to Rocephin on admit. Wound and Bcxadmit NGTD Hand surgery plan OR 09/07/24 Preoperative evaluation: [place] Revised Cardiac Index Risk Factors: Coronary artery disease . At home,patient able to complete > 4 METS as evidenced by ability to climb two flights of stairs withoutCP or dyspnea. Chronic medical conditions that increase [...] history in EMR. Labs / Testing / Search Optimization Analyst notes reviewed : BMP, CBC DW Ortho hand RUCHI - ok for ASA Pt's last surgery CABG. Denies complications with anesthesia. Pt Denies chest pain, palpitations orLE edema. Has chronic SOB which is at [...] palpation, pain with passive extension unable to makefist secondary to pain Skin: warm, dry, no [...] chloride 0.9 % lactated Ringers 75 mL/hr (09/06/24 2030) Labs, Imaging and Studies reviewed: Results from [...] days Lab Units 09/06/24 1322 INR 1.1 * Amrit Pollard CNP - 09/07/2024 8:04 AM EDT Images from the original note were not included. DAILY PROGRESS NOTE Patient Name: Maryse Mak MR #: [id number] Assessment/Plan: * Cellulitis of right hand Assessment & Plan 69 y.o. 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 - S/p bedside I&D of the right thumb proximal phalanx 09/06 - Cultures pend- will follow - MRI obtained 09/07/24 - Will plan for formal I&D today in OR- discussed with patient - Keep NPO - Continue IV antibiotics - Continue BID warm soapy soaks with packing changes - Multimodal pain control, elevation - Please contact hand surgery RUCHI production officer with questions/concerns, will continue to follow S: [...] SpO2 94% BMI 27.80 kg/m Avril Pollard, [facility] Orthopedic & Hand Surgery * Villa Mckay, [facility],PharmD - 09/07/2024 12:35 AM EDT PHARMACOTHERAPY NOTE: Antimicrobial Therapy Initiation Assessment / [...] 1 Encounters: 09/06/24 93 kg (205 lb) [place] body weight: 77.6 kg (171 lb 1.2 [...] Units Date/Time Wound Aerobic And Anaerobic Culture [[id number]] Collected: 09/06/241951 Order Status: Completed Specimen: Abscess from Finger, Right, Thumb Updated: 09/06/242205 Gram Stain Result No Organisms Seen Few WBC Many RBC Procalcitonin [[id number]] (Abnormal) Collected: 09/06/241321 Order Status: Completed Specimen: Blood Updated: 09/06/24 1440 Procalcitonin 0.66 High ng/ml Narrative: Results of 0.50 and 2.00 ng/ml are indeterminate and should be repeated within 6-24 hours. Blood Culture Aerobic/Anaerobic [[id number]] (Normal) Collected: 09/06/241321 Order Status: Completed Specimen: Blood, Peripheral Updated: 09/06/24 1559 Culture In Progress; No Growth to Date Blood Culture Aerobic/Anaerobic [[id number]] (Normal) Collected: 09/06/241321 Order Status: Completed Specimen: Blood, Peripheral Updated: 09/06/24 1559 Culture In Progress; No Growth to Date Pharmacist: Villa Mckay, JosephD, MS, BCCCP Contact: Med, secure chat documented in this [id number] Hospital Discharge instructions * Discharge Instructions* Maura Lorenzo, [facility] - 09/11/2024 9:57 AM EDT IRRIGATION AND [...] of a sudden. -You have chest pain. * Discharge Instr - AVS First Page* Brooke Hernandes MD - 09/11/2024 3:20 PM [...] cocaine impair wound healing documented in this [id number] [facility]MedOne Inpatient Progress Note 09/10/2024 Maryse Mak 1955 [id number] Assessment/Plan: Maryse Mak is a 69 y.o. male with a history of CAD, HTN who presented to the [place] ED for right had cellulitis, ortho evaluated and had concern for flexor tenosynovitis. S/p Vanc and zosyn and patient transferred to [facility] 09/06/2024 for hand surgery evaluation. Trop 23-21, WBC 19.29, CRP 194, UDS + for cocaine and opiates. CTA H/n without acute infarct. Right Hand Cellulitis: with concern for flexor tenosynovitis in setting of pain with passive extension, ascending lymphangitis. 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 Admit x-ray right hand without acute findings. [...] control ride Subjective: Labs / Testing / Search Optimization Analyst notes reviewed : BMP, CBC, Ortho High [...] 1.1 AUTHENTICATED BY BROOKE HERNANDES ON 09/10/2024 14:37:49[facility]04-27-2025 NoteDaily Progress Note Assessment/Plan: 69 y/o male with [...] 127/80 AUTHENTICATED BY FLORENCIO SHARMA, ON 09/10/2024 09:27:56[facility]04-26[facility]25 NoteMedOne Inpatient Progress Note 09/09/2024 Maryse Mak 1955 [id number] Assessment/Plan: Maryse Mak is a 69 y.o. male with a history of CAD, HTN who presented to the [place] ED for right had cellulitis, ortho evaluated and had concern for flexor tenosynovitis. S/p Vanc and zosyn and patient transferred to [facility] 09/06/2024 for hand surgery evaluation. Trop 23-21, WBC 19.29, CRP 194, UDS + for cocaine and opiates. CTA H/n without acute infarct. Right Hand Cellulitis: with concern for flexor tenosynovitis in setting of pain with passive extension, ascending lymphangitis. 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 Admit x-ray right hand without acute findings. [...] ortho hand Subjective: Labs / Testing / Search Optimization Analyst notes reviewed : BMP, CBC, Pharm High [...] 09/06/24 1322 INR 1.1 AUTHENTICATED BY BROOKE HERNANDES, ON 09/09/2024 11:25:53[facility]04-26-2025 NoteDaily Progress Note Assessment/Plan: 69 y/o male with [...] 123/81 AUTHENTICATED BY HENRY ROBLES, ON 09/09/2024 09:56:37[facility]04-25-2025 History of Present illness Narrative* Karen Lisa RPh,PharmD - 09/08/2024 2:22 PM EDT Negative preliminary blood cultures. No further action needed. documented in this [id number] NoteDaily Progress Note Assessment/Plan: 69 y/o male with [...] 128/69 AUTHENTICATED BY NIKKI HASSAN, ON 09/08/2024 12:39:37[facility]04-25-2025 Consult note* Gosia Ashford, PT - 09/08/2024 10:05 AM EDT Physical Therapy Physical Therapy Vestibular Note Impressions: [...] of the Physical Therapy Plan of Care. 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 Therapy Services Needed After Discharge: No PT [...] (none) Prior Level of Function Level of [place] - Transfers/Ambulation/Mobility: Independent with functional transfers, Independent with household ambulation, Independent with community ambulation Level of [place] - ADLs: Independent Level of [place] - Homemaking: Independent Driving: Patient drives Past Medical History: Diagnosis Date Alcohol abuse 06/19/2019 Arthritis Chronic back pain Chronic obstructive pulmonary disease ([facility]) 02/07/2024 Clotting disorder DVT Cocaine abuse ([facility]) 10/28/2017 Coronary artery disease moderate stenosis of [...] Angiogram; Surgeon: Minoo Grimm MD; 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: 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; Service: Cardiovascular CV IR INTERVENTIONAL RADIOLOGY N/A 09/01/2022 Procedure: VR Aspiration Sternal seroma; Surgeon: Florencio Chambers MD; Location: IR LAB; Service: Interventional Radiology HC LEFT HEART CATH N/A 11/07/2021 Procedure: Left Heart Cath; Surgeon: Minoo Grimm MD; Location: 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; Service: Cardiovascular INCISION AND DRAINAGE HAND/FINGER Right 09/07/2024 Procedure: IRRIGATION AND DEBRIDEMENT OF RIGHT THUMB AND FLEXOR TENDON SHEATH; Surgeon: Aristeo Beavers MD; Location: [facility] Main OR; Service: Orthopedic; Laterality: Right; left arm leg sx right and left blood clots Bilateral 2009 in [facility] SHOULDER SURGERY STERNAL WIRING N/A 08/06/2022 Procedure: [...] hospital or completion of Physical Therapy Plan. [id number] NoteMedOne Inpatient Progress Note 09/08/2024 Maryse Mak 1955 [id number] Assessment/Plan: Maryse Mak is a 69 y.o. male with a history of CAD, HTN who presented to the [place] ED for right had cellulitis, ortho evaluated and had concern for flexor tenosynovitis. S/p Vanc and zosyn and patient transferred to [facility] 09/06/2024 for hand surgery evaluation. Trop 23-21, WBC 19.29, CRP 194, UDS + for cocaine and opiates. CTA H/n without acute infarct. Right Hand Cellulitis: with concern for flexor tenosynovitis in setting of pain with passive extension, ascending lymphangitis. 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 In ED: WBC 19.29 CRP 194, x-ray [...] ortho hand Subjective: Labs / Testing / Search Optimization Analyst notes reviewed : BMP, CBC, OR report [...] 1.1 AUTHENTICATED BY BROOKE HERNANDES ON 09/08/2024 11:35:15[facility]04-24-2025 Note* Utilization Review - Babita Juarez RN - 09/07/2024 3:57 PM EDT Images from the original note were not included. Central UR Utilization Review Notes HISTORY OF PRESENT ILLNESS: Maryse Mak is a 69 y.o. male with a history of CAD, COPD, HTN who presented to the [place] ED for right had cellulitis, ortho evaluated and had concern for flexor tenosynovitis. S/p Vanc and zosyn and patient transferred to [facility] 09/06/2024 for hand surgery evaluation. Trop [...] also endorsed dizziness and off-balance sensation over thepast 3 days. 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 In ED: WBC 19.29 CRP 194, x-ray right hand without acute findings. S/p I&D by hand surgery in ED. Twicedaily warm soapy soaks. Continue Vancomycin. Transitioned zosyn to Rocephin on admit. Wound and Bcxpending. Hand surgery following Vertiginous syndrome: With associated headache. Reported 3 days of off-balance sensation, dizzinessworse with movement. 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 S/p I&D by hand surgery in ED. Twicedaily warm soapy soaks. Continue Vancomycin. Transitioned zosyn to Rocephin on admit. Wound and Bcxadmit NGTD Hand surgery plan OR 09/07/24 Preoperative evaluation: Parrish Revised Cardiac Index Risk Factors: Coronary artery disease . At home,patient able to complete > 4 METS as evidenced by ability to climb two flights of stairs withoutCP or dyspnea. Chronic medical conditions that increase [...] drainage of right thumb flexor tenosynovitis - [address]82 MEDS / ORDERS: Current Scheduled Medications Collapse [...] Intravenous, 200 mL/hr, Every 24 hours References: [facility] Medication Information Question: Indication: Answer: Skin/Soft Tissue Infection 09/07/2431 -- 09/06/24 2200 sodium chloride (PF) (NS) flush 5 mL 5 mL, Intravenous, Every 8 hours scheduled References: [facility] Medication Information And Linked Group Details 09/06/242022 -- 09/06/24 2200 gabapentin (NEURONTIN) capsule 800 mg 800 mg, Oral, Every 8 hours scheduled References: [facility] Medication Information 09/06/242131 -- 09/06/240 cefTRIAXone (ROCEPHIN) IVPB 2 g (premix) 2,000 mg, Intravenous, 100 mL/hr, Every 24 hours References: [facility] Medication Information Question Answer Comment Indication: Other (specify) Indication: Skin/soft tissue infection 09/06/242038 -- 09/06/24 2100 senna-docusate (SENNA-S) 8.6-50 mg per tablet 1 tablet 1 tablet, Oral, 2 times daily References: [facility] Medication Information 09/06/242022 -- Dilaudid iv q 3 h prn x 1 09/06, x 2 09/07 DISPO: tbd [id number] Miscellaneous Notes* Utilization Review - Babita Juarez RN - 09/07/2024 3:57 PM EDT Images from the original note were not included. Central UR Utilization Review Notes HISTORY OF PRESENT ILLNESS: Maryse Mak is a 69 y.o. male with a history of CAD, COPD, HTN who presented to the [place] ED for right had cellulitis, ortho evaluated and had concern for flexor tenosynovitis. S/p Vanc and zosyn and patient transferred to [facility] 09/06/2024 for hand surgery evaluation. Trop [...] also endorsed dizziness and off-balance sensation over thepast 3 days. 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 S/p I&D by hand surgery in ED. Twicedaily warm soapy soaks. Continue Vancomycin. Transitioned zosyn to Rocephin on admit. Wound and Bcxpending. Hand surgery following Vertiginous syndrome: With associated headache. Reported 3 days of off-balance sensation, dizzinessworse with movement. 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 S/p I&D by hand surgery in ED. Twicedaily warm soapy soaks. Continue Vancomycin. Transitioned zosyn to Rocephin on admit. Wound and Bcxadmit NGTD Hand surgery plan OR 09/07/24 Preoperative evaluation: Parrish Revised Cardiac Index Risk Factors: Coronary artery disease . At home,patient able to complete > 4 METS as evidenced by ability to climb two flights of stairs withoutCP or dyspnea. Chronic medical conditions that increase [...] drainage of right thumb flexor tenosynovitis - [address]72 MEDS / ORDERS: Current Scheduled Medications Collapse Hide (From admission, onward) Start Ordered Stop 09/07/24 1130 aspirin EC tablet 81 mg 81 mg, Oral, Daily References: [facility] Medication Information 09/07/24 1035 -- 09/07/24 0900 atorvastatin (LIPITOR) tablet 40 mg 40 mg, Oral, Daily References: [facility] Medication Information HMG-CoA Reductase Inihibitor Drug Interaction Guideline 09/06/24 2132 -- 09/07/24 0900 NIFEdipine 24 hr tablet 30 mg 30 mg, Oral, Daily References: [facility] Medication Information 09/06/24 2132 -- 09/07/24 0600 vancomycin (VANCOCIN) 1500 mg in dextrose 5 % 300 mL 1,500 mg, Intravenous, 200 mL/hr, Every 24 hours References: [facility] Medication Information Question: Indication: Answer: Skin/Soft Tissue Infection 09/07/24 0032 -- 09/06/24 2200 sodium chloride (PF) (NS) [...] (specify) Indication: Skin/soft tissue infection 09/06/242038 -- 09/06/242099 senna-docusate (SENNA-S) 8.6-50 mg per tablet 1 tablet 1 tablet, Oral, 2 times daily References: [facility] Medication Information 09/06/242022 -- Dilaudid iv q 3 h prn x 1 09/06, x 2 09/07 DISPO: tbd * Quick Note - Candace Valiente RN - 09/07/2024 3:42 PM EDT No change from prior charted assessment, patient in stable condition for transport. * Brief Op Note - Aristeo Beavers MD - 09/07/2024 2:24 PM EDT Brief Post Operative Note Patient Name: Maryse Mak : 1955 (69 y.o.) Date of Service: 09/07/2024 CSN: [id number] Procedure(s): IRRIGATION AND DEBRIDEMENT OF RIGHT THUMB AND FLEXOR TENDON SHEATH Pre-Operative Diagnoses: * right thumb infection Post-Operative Diagnoses: * Same as Pre-Op Diagnosis Surgeons and Role: * Aristeo Beavers MD - Primary Anesthesiologist: Nacho Maki MD Hose Stripper: Mary Lou Strong RN; Barbara Cabrera RN [...] 0009 Aristeo Beavers MD 09/07/2024 2:24 PM * [facility] - Aristeo Colon PT - 09/07/2024 2:05 PM EDT PHYSICAL THERAPY VISIT VARIANCE NOTE Attempted to see patient at this time, but unable secondary to: Patient Unavailable (comment) (Per RN, patent unavailable due to soaking hand when PT attempted in AM. Patient currently in OR.). Will follow up as appropriate. * Op Note - Aristeo Beavers MD - 09/07/2024 1:52 PM EDT OPERATIVE REPORT Maryse Mak Preoperative Diagnosis: Right thumb flexor tenosynovitis Postoperative Diagnosis: Right thumb flexor tenosynovitis Procedure: Incision and drainage of right thumb flexor tenosynovitis - [address] Surgeon:Aristeo Beavers MD Guest Relations Agent: Surgeons and Role: * Aristeo Beavers MD - Primary Anesthesiologist: No responsible provider has been recorded for the case. OR Staff: Hose Stripper: Mary Lou Strong RN Scrub Person: Ludin [...] of the risks, benefits, expected outcomes, and alternativesto surgical intervention, the patient agreed to proceed with surgical treatment. Specific risks discussed included, but were not limited to: superficial or deep infection, wound healing complications, DVT/PE, significant bleeding requiring transfusion, damage to named anatomic structures in the immediate area including named neurovascular structures, infection, need for further surgeries, finger s tiffness, osteomyelitis, and general risks of anesthesia. The [...] then provisionally cleansed and then prepped and drapedin the usual sterile fashion. At this time [...] A3 zia clearly. I then used a 20gauge angiocath in the flexor tendon sheath near [...] the case. I was present and participated inall aspects of the procedure. Prognosis: The patient will be kept WBAT on the ipsilateral extremity. We will continue antibioticsand continue BID warm soapy soaks. We will follow cultures and adjust antibiotics as needed. There is a risk of continued infection and we will follow the patient to assess for recurrence or worsening. Aristeo Beavers MD * Subjective & Objective - Amrit Pollard CNP - 09/07/2024 9:22 AM EDT S: Patient reports significant pain to his [...] hand. Lymphangitic streaking appreciated to mid-volar forearm. * Assessment & Plan Note - Amrit Pollard CNP - 09/06/2024 8:22 PM EDT Associated Problem(s): Cellulitis of right hand 69 y.o. 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 I personally interviewed the patient. I personally examined the patient. I discussed the patient with REFRIGERATOR TESTER/PA. I personally made or approved the documented [...] his arm today. He was seen at [facility], seen by Ortho. They thought he might [...] his thumb, which he has trouble bending atthe IP joint. He does seem to have cellulitis with ascending lymphangitic streak up to at least theelbow area. documented in this [id number] Progress note* Quick Note - Candace Valiente RN - 09/07/2024 3:42 PM EDT No change from prior charted assessment, patient in stable condition for transport. [id number] Procedure note* Brief Op Note - Aristeo Beavers MD - 09/07/2024 2:24 PM EDT Brief Post Operative Note Patient Name: Maryse Mak : 1955 (69 y.o.) Date of Service: 09/07/2024 CSN: [id number] Procedure(s): IRRIGATION AND DEBRIDEMENT OF RIGHT THUMB AND FLEXOR TENDON SHEATH Pre-Operative Diagnoses: * right thumb infection Post-Operative Diagnoses: * Same as Pre-Op Diagnosis Surgeons and Role: * Aristeo Beavers MD - Primary Anesthesiologist: Nacho Maki MD Hose Stripper: Mary Lou Strong RN; Barbara Cabrera RN [...] 0009 Aristeo Beavers MD 09/07/2024 2:24 PM [id number] Note* [facility] - Aristeo Colon PT - 09/07/2024 2:05 PM EDT PHYSICAL THERAPY VISIT VARIANCE NOTE Attempted to see patient at this time, but unable secondary to: Patient Unavailable (comment) (Per RN, patent unavailable due to soaking hand when PT attempted in AM. Patient currently in OR.). Will follow up as appropriate. [id number] Procedure note* Op Note - Aristeo Beavers MD - 09/07/2024 1:52 PM EDT OPERATIVE REPORT Maryse Mak Preoperative Diagnosis: Right thumb flexor tenosynovitis Postoperative Diagnosis: Right thumb flexor tenosynovitis Procedure: Incision and drainage of right thumb flexor tenosynovitis - [address]683 Surgeon:Aristeo Beavers MD Guest Relations Agent: Surgeons and Role: * Aristeo Beavers MD - Primary Anesthesiologist: No responsible provider has been recorded for the case. OR Staff: Hose Stripper: Mary Lou Strong RN Scrub Person: Ludin [...] of the risks, benefits, expected outcomes, and alternativesto surgical intervention, the patient agreed to proceed with surgical treatment. Specific risks discussed included, but were not limited to: superficial or deep infection, wound healing complications, DVT/PE, significant bleeding requiring transfusion, damage to named anatomic structures in the immediate area including named neurovascular structures, infection, need for further surgeries, finger s tiffness, osteomyelitis, and general risks of anesthesia. The [...] then provisionally cleansed and then prepped and drapedin the usual sterile fashion. At this time [...] A3 zia clearly. I then used a 20gauge angiocath in the flexor tendon sheath near [...] the case. I was present and participated inall aspects of the procedure. Prognosis: The patient will be kept WBAT on the ipsilateral extremity. We will continue antibioticsand continue BID warm soapy soaks. We will follow cultures and adjust antibiotics as needed. There is a risk of continued infection and we will follow the patient to assess for recurrence or worsening. Aristeo Beavers MD [id number] Attending History and physical note* Aristeo Beavers MD - 09/07/2024 1:12 PM EDT INTERVAL HISTORY AND PHYSICAL Patient Name: Maryse Mak Admit Date: [id number] MR #: [id number] : 1955 The H&P has been reviewed and the patient has been examined. I concur with the findings of the H&P. There are no significant changes. It is appropriate to proceed with the planned procedure. Aristeo Beavers MD 09/07/2024 1:12 PM Source Note - David Lee PA-C - 09/06/2024 7:48 PM EDT [facility] History and Physical Note 09/06/24 Maryse Mak 1955 [id number] Assessment/Plan: Maryse Mak is a 69 y.o. male with a history of CAD, HTN who presented to the [place] ED for right had cellulitis, ortho evaluated and had concern for flexor tenosynovitis. S/p Vanc and zosyn and patient transferred to [facility] 09/06/2024 for hand surgery evaluation. Trop 23-21, WBC 19.29, CRP 194, UDS + for cocaine and opiates. CTA H/n without acute infarct. Right Hand Cellulitis: with concern for flexor tenosynovitis in setting of pain with passive extension, ascending lymphangitis. 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 S/p I&D by hand surgery in ED. Twicedaily warm soapy soaks. Continue Vancomycin. Transitioned zosyn to Rocephin on admit. Wound and Bcxpending. Hand surgery following Vertiginous syndrome: With associated headache. Reported 3 days of off-balance sensation, dizzinessworse with movement. In ED: CTA head and [...] CAD, COPD, HTN who presented to the [place] ED for right had cellulitis, ortho evaluated and had concern for flexor tenosynovitis. S/p Vanc and zosyn and patient transferred to [facility] 09/06/2024 for hand surgery evaluation. Trop [...] also endorsed dizziness and off-balance sensation over thepast 3 days. States worse with different eye movements. Feels unbalanced walking. Ordered meclizine. CT in ED without acute infarct. Today I personally did a review of prior medical records and have summarized my findings in my assessment and plan as noted above. Today I also reviewed recent labs, diagnostics, vitals including pulse ox, and sr. consultant/other provider recommendations. 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 I concur with the findings of the H&P. There are no significant changes. It is appropriate to proceed with the planned procedure. Aristeo Beavers MD 09/07/2024 1:12 PM Source Note - David Lee PA-C - 09/06/2024 7:48 PM EDT [facility] History and Physical Note 09/06/24 Maryse Mak 1955 [id number] Assessment/Plan: Maryse Mak is a 69 y.o. male with a history of CAD, HTN who presented to the [place] ED for right had cellulitis, ortho evaluated and had concern for flexor tenosynovitis. S/p Vanc and zosyn and patient transferred to [facility] 09/06/2024 for hand surgery evaluation. Trop 23-21, WBC 19.29, CRP 194, UDS + for cocaine and opiates. CTA H/n without acute infarct. Right Hand Cellulitis: with concern for flexor tenosynovitis in setting of pain with passive extension, ascending lymphangitis. 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 S/p I&D by hand surgery in ED. Twicedaily warm soapy soaks. Continue Vancomycin. Transitioned zosyn to Rocephin on admit. Wound and Bcxpending. Hand surgery following Vertiginous syndrome: With associated headache. Reported 3 days of off-balance sensation, dizzinessworse with movement. In ED: CTA head and [...] CAD, COPD, HTN who presented to the [place] ED for right had cellulitis, ortho evaluated and had concern for flexor tenosynovitis. S/p Vanc and zosyn and patient transferred to [facility] 09/06/2024 for hand surgery evaluation. Trop [...] also endorsed dizziness and off-balance sensation over thepast 3 days. States worse with different eye movements. Feels unbalanced walking. Ordered meclizine. CT in ED without acute infarct. Today I personally did a review of prior medical records and have summarized my findings in my assessment and plan as noted above. Today I also reviewed recent labs, diagnostics, vitals including pulse ox, and sr. consultant/other provider recommendations. 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 male with a history of CAD, HTN who presented to the [place] ED for right had cellulitis, ortho evaluated and had concern for flexor tenosynovitis. S/p Vanc and zosyn and patient transferred to [facility] 09/06/2024 for hand surgery evaluation. Trop 23-21, WBC 19.29, CRP 194, UDS + for cocaine and opiates. CTA H/n without acute infarct. Right Hand Cellulitis: with concern for flexor tenosynovitis in setting of pain with passive extension, ascending lymphangitis. 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 S/p I&D by hand surgery in ED. Twicedaily warm soapy soaks. Continue Vancomycin. Transitioned zosyn to Rocephin on admit. Wound and Bcxpending. Hand surgery following Vertiginous syndrome: With associated headache. Reported 3 days of off-balance sensation, dizzinessworse with movement. In ED: CTA head and [...] CAD, COPD, HTN who presented to the [place] ED for right had cellulitis, ortho evaluated and had concern for flexor tenosynovitis. S/p Vanc and zosyn and patient transferred to [facility] 09/06/2024 for hand surgery evaluation. Trop [...] also endorsed dizziness and off-balance sensation over thepast 3 days. States worse with different eye movements. Feels unbalanced walking. Ordered meclizine. CT in ED without acute infarct. Today I personally did a review of prior medical records and have summarized my findings in my assessment and plan as noted above. Today I also reviewed recent labs, diagnostics, vitals including pulse ox, and sr. consultant/other provider recommendations. 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 After discussing the case with David Lee PA-C, I performed the substantive part of the medical decision making for this encounter and approved the [facility]'s plan of care with the following additions: Patient is a 69-year-old male who presented to [facility] with cellulitis of the right hand in the settingof burn wounds sustained 5 days prior to [...] Ht 6' Wt 93 kg (205 lb) [id number]% BMI 27.80 kg/m General: NAD Eyes: EOMI, sclera clear ENT: neck supple Cardiovascular: Regular rate, no murmur Respiratory: Clear to auscultation, symmetric air entry Gastrointestinal: Soft, non tender, non distended, positive bowel sounds Genitourinary: no CVA tenderness Musculoskeletal: Right hand swelling, pain to palpation, pain with passive extension unable to makefist secondary to pain Skin: warm, dry, no LE edema Neuro: Alert, oriented x3, no focal motor deficits Psych: Mood appropriate documented in this [id number] Evaluation note* Subjective & Objective - Amrit Pollard CNP - 09/07/2024 9:22 AM EDT S: Patient reports significant pain to his [...] hand. Lymphangitic streaking appreciated to mid-volar forearm. [id number] [facility] Inpatient Progress Note 09/07/2024 Maryse Mak 1955 [id number] Assessment/Plan: Maryse Mak is a 69 y.o. male with a history of CAD, HTN who presented to the [place] ED for right had cellulitis, ortho evaluated and had concern for flexor tenosynovitis. S/p Vanc and zosyn and patient transferred to [facility] 09/06/2024 for hand surgery evaluation. Trop 23-21, WBC 19.29, CRP 194, UDS + for cocaine and opiates. CTA H/n without acute infarct. Right Hand Cellulitis: with concern for flexor tenosynovitis in setting of pain with passive extension, ascending lymphangitis. 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 In ED: WBC 19.29 CRP 194, x-ray [...] history in EMR. Labs / Testing / Search Optimization Analyst notes reviewed : BMP, CBC DW Ortho [...] Imaging and Studies revie (more content not included)...[facility]04-24-2025 NoteDAILY PROGRESS NOTE Patient Name: Maryse Mak MR #: [id number] Assessment/Plan: * Cellulitis of right hand Assessment & Plan 69 y.o. 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 - S/p bedside I&D of the right thumb proximal phalanx 09/06 - Cultures pend- will follow - MRI obtained 09/07/24 - Will plan for formal I&D today in OR- discussed with patient - Keep NPO - Continue IV antibiotics - Continue BID warm soapy soaks with packing changes - Multimodal pain control, elevation - Please contact hand surgery [facility] production officer with questions/concerns, will continue to follow S: [...] SpO2 94% BMI 27.80 kg/m Avril Pollard, JANAY AGACNP-[facility] AUTHENTICATED BY AMRIT POLLARD, ON 09/07/2024 09:22:54[facility]04-23-2025 Evaluation + Plan note* Assessment & Plan Note - Amrit Pollard CNP - 09/06/2024 8:22 PM EDTAssociated Problem(s): Cellulitis of right hand 69 y.o. 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 - S/p bedside I&D of the right thumb proximal phalanx 09/06 - Cultures pend- will follow - MRI obtained 09/07/24 - Will plan for formal I&D today in OR- discussed with patient - Keep NPO - Continue IV antibiotics - Continue BID warm soapy soaks with packing changes - Multimodal pain control, elevation - Please contact hand surgery [facility] production officer with questions/concerns, will continue to follow [id number] NoteIncision and drainage Date/Time: 09/06/2024 8:08 PM Performed [...] complications AUTHENTICATED BY SEBAS HOWARD, ON 09/06/2024 20:09:55[facility]04-23-2025 Procedure note* Sebas Howard PA-C - 09/06/2024 8:08 PM EDTAssociated Order(s): Incision and drainage Post-Procedure Diagnose(s): Cellulitis of [...] Wound treatment: wound left open Packing material: 14 in gauze Patient tolerance: patient tolerated the procedure well with no immediate complications [facility] Work Phone: [phone] Procedure note* Sebas Howard PA-C - 09/06/2024 8:08 PM EDTAssociated Order(s): Incision and drainage Post-Procedure Diagnose(s): Cellulitis of [...] with no immediate complications documented in this [id number] History and physical note* David Lee PA-C - 09/06/2024 7:48 PM EDT [facility] History and Physical Note 09/06/24 Maryse Mak 1955 [id number] Assessment/Plan: Maryse Mak is a 69 y.o. male with a history of CAD, HTN who presented to the [place] ED for right had cellulitis, ortho evaluated and had concern for flexor tenosynovitis. S/p Vanc and zosyn and patient transferred to [facility] 09/06/2024 for hand surgery evaluation. Trop 23-21, WBC 19.29, CRP 194, UDS + for cocaine and opiates. CTA H/n without acute infarct. Right Hand Cellulitis: with concern for flexor tenosynovitis in setting of pain with passive extension, ascending lymphangitis. 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 S/p I&D by hand surgery in ED. Twicedaily warm soapy soaks. Continue Vancomycin. Transitioned zosyn to Rocephin on admit. Wound and Bcxpending. Hand surgery following Vertiginous syndrome: With associated headache. Reported 3 days of off-balance sensation, dizzinessworse with movement. In ED: CTA head and [...] CAD, COPD, HTN who presented to the [place] ED for right had cellulitis, ortho evaluated and had concern for flexor tenosynovitis. S/p Vanc and zosyn and patient transferred to [facility] 09/06/2024 for hand surgery evaluation. Trop [...] also endorsed dizziness and off-balance sensation over thepast 3 days. States worse with different eye movements. Feels unbalanced walking. Ordered meclizine. CT in ED without acute infarct. Today I personally did a review of prior medical records and have summarized my findings in my assessment and plan as noted above. Today I also reviewed recent labs, diagnostics, vitals including pulse ox, and sr. consultant/other provider recommendations. ECG seen reviewed from [...] Angiogram; Surgeon: Minoo Grimm MD; Location: 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; Service: Cardiovascular CV IR INTERVENTIONAL RADIOLOGY N/A 09/01/2022 Procedure: VR Aspiration Sternal seroma; Surgeon: Florencio Chambers MD; Location: IR LAB; Service: Interventional Radiology HC LEFT HEART CATH N/A 11/07/2021 Procedure: Left Heart Cath; Surgeon: Minoo Grimm MD; Location: 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; Service: Cardiovascular left arm leg sx right and left blood clots Bilateral 2009 in [facility] SHOULDER SURGERY STERNAL WIRING N/A 08/06/2022 Procedure: [...] palpation, pain with passive extension unable to makefist secondary to pain Skin: warm, dry, no [...] PM EDT I have personally performed a eaxf-dj-jnvu diagnostic evaluation of this patient on 09/06/2024. After discussing the case with David Lee PA-C, I performed the substantive part of the medical decision making for this encounter and approved the RUCHI's plan of care with the following additions: Patient is a 69-year-old male who presented to [facility] with cellulitis of the right hand in the settingof burn wounds sustained 5 days prior to [...] Ht 6' Wt 93 kg (205 lb) [id number]% BMI 27.80 kg/m General: NAD Eyes: EOMI, sclera clear ENT: neck supple Cardiovascular: Regular rate, no murmur Respiratory: Clear to auscultation, symmetric air entry Gastrointestinal: Soft, non tender, non distended, positive bowel sounds Genitourinary: no CVA tenderness Musculoskeletal: Right hand swelling, pain to palpation, pain with passive extension unable to makefist secondary to pain Skin: warm, dry, no LE edema Neuro: Alert, oriented x3, no focal motor deficits Psych: Mood appropriate [facility] Work Phone: [phone] 141-159704-23-2025 Emergency department Note* Juliana Horner PSA - 09/06/2024 7:27 PM EDT [facility] to write admission orders [id number] Emergency department Note* Juliana Horner PSA - 09/06/2024 7:27 PM EDT [facility] to write admission orders [id number] * Florence Ramírez PA-C - 09/06/2024 6:07 PM EDT Images from the original note were not included. ED PROVIDER NOTE [facility] 3 NAME: Maryse Mak AGE: 69 y.o. : 1955 VISIT DATE: 09/06/2024 CSN: [id number] PCP: Rayo Jaimes MD Chief Complaint Patient presents with Hand Injury Patient is a 69-year-old male with history of alcohol abuse, arthritis, COPD, cocaine abuse, CAD, HTN who presents with a hand injury. Patient arrives as a transfer from [facility]. He statesthat a few days ago he was working on his car and accidentally burned his right thumb. He states that since then he has had spreading redness, pain, and swelling to his right hand. He reports he is unable to bend his right thumb and right index finger. He also states that since he burned his fingerhe has felt unstable while walking. Denies fall [...] WOUND EXPLORATION; Surgeon: Wood Eng MD; Location: [facility]; Service: Cardiothoracic CABG W/ RADIAL ARTERY HARVEST N/A 11/20/2021 Procedure: CORONARY ARTERY BYPASS GRAFT X2 AND LEFT AND RIGHT INTERNAL MAMMARY ARTERY GRAFTS; Surgeon: Wood Eng MD; Location: Main OR; Service: Cardiothoracic CARDIAC CATHETERIZATION N/A 11/07/2021 Procedure: Coronary Angiogram; Surgeon: Minoo Grimm MD; Location: 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; Service: Cardiovascular CV IR INTERVENTIONAL RADIOLOGY N/A 09/01/2022 Procedure: VR Aspiration Sternal seroma; Surgeon: Florencio Chambers MD; Location: IR LAB; Service: Interventional Radiology HC LEFT HEART CATH N/A 11/07/2021 Procedure: Left Heart Cath; Surgeon: Minoo Grimm MD; Location: 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; Service: Cardiovascular left arm leg sx right and left blood clots Bilateral 2009 in [facility] SHOULDER SURGERY STERNAL WIRING N/A 08/06/2022 Procedure: [...] -- -- 16 -- -- -- 09/06/24 2234 138/87 98.4 F (36.9 C) Oral 74 16 98 % -- -- 09/06/248 -- -- -- -- 16 -- -- -- 09/06/242029 -- -- -- -- 16 -- -- -- 09/06/242028 (!) 154/76 -- -- 78 16 98 % -- -- 09/06/24 1922 -- -- -- -- 16 -- -- -- 09/06/24 1902 -- -- -- -- 16 -- [...] index finger and dorsum of right hand withswelling. Patient has limited flexion of his right [...] injury. Patient arrives as a transfer from [facility]. He states that a few days ago [...] 2+ right radial pulse. Photo captured in [employer]. Patient presents as a transfer from [place] for a right hand infection. Patient reports he accidentally burned his right thumb while working on a car and since then has had worsening erythema, edema, pain, and decreased range of motion. Xray right hand negative for fracture or gas. Patient given IV vancomycin and zosyn prior to transfer. [facility] documentation reports concern for flexor tenosynovitis. I [...] Laboratory results have been reviewed by me. @PROCDOC@ . Allergies -- Felix Inhibitors -- Swelling -- Atorvastatin -- Other (See Comments) -- ACHE ALL OVER. Medications Current Outpatient Medications on File Prior to Encounter: aspirin 81 MG EC tablet, Take 1 (one) tablet (81 mg total) by mouth daily . gabapentin (NEURONTIN) 800 MG tablet, Take 1 (one) tablet (800 mg total) by mouth 3 (three) times aday . HYDROcodone-acetaminophen (NORCO) 7.5-325 mg per tablet, Take 1 (one) tablet by mouth every 6 (six)hours as needed for pain . NIFEdipine (ADALAT [...] this documentation, there is a possibility of xqomd-f-fysv errors inherent to this technology that may [...] available in inpatient encounters. Please contact a irrigation system installer. [1] Social History Socioeconomic History Marital status: [...] ALL OVER. Florence Ramírez PA-C 09/07/24 0853 * Tyson Zavala RN - 09/06/2024 5:39 PM EDT Pt seen yesterday for a burn on his right hand. Burn seems to be getting worse, hand is more swollen and tender. Pt has some streaking up his right arm. Pt started on bactrim and ultram yesterday. Pt was placed in a thumb spica splint yesterday. Pt now having headache and dizziness as well. Pt transfer from outside facility * Ernestine Galvez RN - 09/06/2024 5:38 PM EDT Bed: 95 Expected date: Expected time: Means of arrival: Comments: [employer] Choice/ Vázquez documented in this [id number] Consult note* Sebas Howard PA-C - 09/06/2024 6:41 PM EDTAssociated Order(s): IP CONSULT TO HAND SURGERY Images from the original note were not included. CONSULT NOTE Patient Name: Maryse Mak Admit Date: [id number] MR #: [id number] : 1955 Physicians: Rayo Jaimes MD (Family); [...] admission for IV abx, abx continued from [employer] [place] - Begin BID warm soapy soaks with packing changes - Multimodal pain control - Hand surgery well reassess in the AM - If no significant improvement seen patient may require formal I&D - NPO at midnight as precaution - Please contact hand surgery [facility] production officer with questions/concerns Chief Complaint/Reason for Visit: Right hand pain, concern for FTS History of Present Illness: Maryse Mak is a 69 y.o. right hand dominant male presenting from [facility] with c/o right hand pain 2/2 reported [...] (HCC) 02/07/2024 Clotting disorder DVT Cocaine abuse ([facility]) 10/28/2017 Coronary artery disease moderate stenosis of [...] Angiogram; Surgeon: Minoo Grimm MD; Location: 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; Service: Cardiovascular CV IR INTERVENTIONAL RADIOLOGY N/A 09/01/2022 Procedure: VR Aspiration Sternal seroma; Surgeon: Florencio Chambers MD; Location: IR LAB; Service: Interventional Radiology HC LEFT HEART CATH N/A 11/07/2021 Procedure: Left Heart Cath; Surgeon: Minoo Grimm MD; Location: 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; Service: Cardiovascular left arm leg sx right and left blood clots Bilateral 2009 in [facility] SHOULDER SURGERY STERNAL WIRING N/A 08/06/2022 Procedure: [...] to be held in flexion at this time.He does endorse pain with passive extension of [...] Beavers MD at 09/07/2024 5:58 AM EDT [id number] Physician Emergency department Note* ED Attestation Note - Petros Vázquez MD - 09/06/2024 6:31 PM EDT I performed a substantive part of the MDM during the patient's E/M visit. I personally interviewed the patient. I personally examined the patient. I discussed the patient with REFRIGERATOR TESTER/PA. I personally made or approved the documented [...] his arm today. He was seen at [facility], seen by Ortho. They thought he might [...] his thumb, which he has trouble bending atthe IP joint. He does seem to have cellulitis with ascending lymphangitic streak up to at least theelbow area. [employer] Work Phone: [phone] Physician Emergency department Note* Florence Ramírez PA-C - 09/06/2024 6:07 PM EDT Images from the original note were not included. ED PROVIDER NOTE [facility] NAME: Maryse Mak AGE: 69 y.o. : 1955 VISIT DATE: 09/06/2024 CSN: [id number] PCP: Rayo Jaimes MD Chief Complaint Patient presents with Hand Injury Patient is a 69-year-old male with history of alcohol abuse, arthritis, COPD, cocaine abuse, CAD, HTN who presents with a hand injury. Patient arrives as a transfer from [facility]. He statesthat a few days ago he was working on his car and accidentally burned his right thumb. He states that since then he has had spreading redness, pain, and swelling to his right hand. He reports he is unable to bend his right thumb and right index finger. He also states that since he burned his fingerhe has felt unstable while walking. Denies fall or syncope. Denies room spinning sensation. Denies chest pain, shortness of breath, nausea, vomiting, abdominal pain, headache, visual disturbance. Vital signs reviewed. Hand Injury Associated symptoms: tenderness Past Medical History: Diagnosis Date Alcohol abuse 06/19/2019 Arthritis Chronic back pain Chronic obstructive pulmonary disease (HCC) 02/07/2024 Clotting disorder DVT Cocaine abuse ([facility]) 10/28/2017 Coronary artery disease moderate stenosis of [...] Angiogram; Surgeon: Minoo Grimm MD; Location: 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; Service: Cardiovascular CV IR INTERVENTIONAL RADIOLOGY N/A 09/01/2022 Procedure: VR Aspiration Sternal seroma; Surgeon: Florencio Chambers MD; Location: IR LAB; Service: Interventional Radiology HC LEFT HEART CATH N/A 11/07/2021 Procedure: Left Heart Cath; Surgeon: Minoo Grimm MD; Location: 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; Service: Cardiovascular left arm leg sx right and left blood clots Bilateral 2009 in [facility] SHOULDER SURGERY STERNAL WIRING N/A 08/06/2022 Procedure: [...] 78 16 98 % -- -- 09/06/24 1922 -- -- -- -- 16 -- -- -- 09/06/24 190 -- -- -- -- 16 -- -- -- 09/06/24 175 -- -- -- -- -- 94 % -- -- 09/06/24 174 (!) 150/77 98.2 F (36.8 C) Oral [...] index finger and dorsum of right hand withswelling. Patient has limited flexion of his right thumb and right index finger. Brisk capillary refill. 2+ right radial pulse. Photo captured in [facility]. Pulmonary: Effort: Pulmonary effort is normal. No [...] injury. Patient arrives as a transfer from [facility]. He states that a few days ago [...] epic. Patient presents as a transfer from [facility] [place] for a right hand infection. Patient reports he accidentally burned his right thumb while working on a car and since then has had worsening erythema, edema, pain, and decreased range of motion. Xray right hand negative for fracture or gas. Patient given IV vancomycin and zosyn prior to transfer. [facility] documentation reports concern for flexor tenosynovitis. I [...] Laboratory results have been reviewed by me. @[facility]@ . Allergies -- Felix Inhibitors -- Swelling -- Atorvastatin -- Other (See Comments) -- ACHE ALL OVER. Medications Current Outpatient Medications on File Prior to Encounter: aspirin 81 MG EC tablet, Take 1 (one) tablet (81 mg total) by mouth daily . gabapentin (NEURONTIN) 800 MG tablet, Take 1 (one) tablet (800 mg total) by mouth 3 (three) times aday . HYDROcodone-acetaminophen (NORCO) 7.5-325 mg per tablet, Take 1 (one) tablet by mouth every 6 (six)hours as needed for pain . NIFEdipine (ADALAT [...] this documentation, there is a possibility of oocwo-z-swhv errors inherent to this technology that may [...] available in inpatient encounters. Please contact a irrigation system installer. [1] Social History Socioeconomic History Marital status: [...] ALL OVER. Florence Ramírez PA-C 09/07/24 0853 [id number] Emergency department Triage note* Tyson Zavala RN - 09/06/2024 5:39 PM EDT Pt seen yesterday for a burn on his right hand. Burn seems to be getting worse, hand is more swollen and tender. Pt has some streaking up his right arm. Pt started on bactrim and ultram yesterday. Pt was placed in a thumb spica splint yesterday. Pt now having headache and dizziness as well. Pt transfer from outside facility [id number] Emergency department Note* Ernestine Galvez RN - 09/06/2024 5:38 PM EDT Bed: 95 Expected date: Expected time: Means of arrival: Comments: 1st Choice/ Vázquez [id number] History of Present illness Narrative* Keri Hussein PA-C - 09/06/2024 12:10 PM EDT [facility] NOTE: Name: Maryse Mak, 69 y.o. CSN:[id number] PCP: @PCP@ ALL: Allergies[1] History: Chief Complaint: [...] Needs: No Transportation Needs (10/02/2022) Received from [facility] OASIS A1250: Transportation Lack of Transportation (Medical): [...] ROM of wrist intact but painful. No entertainment dancer strength on L 2/2 pain, entertainment dancer strength normal left. Arm strength normal bl [...] to light, EOM intact. NO facial assymetry. Oil [employer] Roughneck strength disrupted 2/2 to injury/pain. Sensory intact bL and distal to injury Psychiatric: Comments: Abnormal cognition- slightly confused. I did personally review Maryse's past medical [...] distress. However, signs of spreading infection along anteriorarm. Afebrile. Leuks elevated on ER. No palpable lymph nodes at elbow. 2. Cellulitis with lymphangitis A. Erythema/streaking noted up to the right axilla along anterior arm, he is Afebrile. Skin ulcerations along hand near thumb from recent burn injury seem callused, no fluctuance noted but the thenareminence appears quite inflamed. 3. DVT A. Recent [...] patient to ER due to being in [place], [place], he was notified of his father's confusion and need to go to [facility] ER. I, PETE Jorge student, helped prepare the medical record for my supervising clinician, Keri Hussein PA-C. [place]APIN[place]O Jorge, [facility] Supervised by Keri Hussein PA-C Advanced Practice Provider [facility] I was present with the [...] by mouth 3 times a day. HYDROcodone-acetaminophen ([place]) 7.5-325 mg tablet Take 1 tablet by [...] family history on file. [facility] Work Phone: [phone] Hospital Discharge instructions* Discharge Instructions* Becca Campa PA-C - 08/11/2024 3:49 PM [...] other concerns. We would be happy to re- evaluate you. Otherwise, please take your medications as prescribed and follow-upas recommended. * Attachments The following attachments cannot be sent through Care Everywhere. * Chest Pain Discharge Instructions (Lebanese) documented in this encounterSOhioHealth Mansfield [id number] Note* Care Coordination - Gaby Layton RN - 08/11/2024 12:02 PM EDT Provider sent secure chat to advise of OON status with pt insurance [facility]. CM did provide locations that are in network should the pt require a medical admission. [facility]* Care Coordination - Gaby Layton RN - 08/11/2024 12:02 PM EDT Provider sent secure chat to advise of OON status with pt insurance [facility]. CM did provide locations that are in network should the pt require a medical admission. [facility] [id number] Miscellaneous Notes* Care Coordination - Gaby Layton RN - 08/11/2024 12:02 PM EDT Provider sent secure chat to advise of OON status with pt insurance [employer]. CM did provide locations that are in network should the pt require a medical admission. documented in this [facility]03-28-2025 Emergency department Note* Becca Campa PA-C - 08/11/2024 11:21 AM EDT EMERGENCY DEPARTMENT ENCOUNTER Pt Name: Maryse Mak [...] to the emergency department for evaluation of right-sidedchest pain and shortness of breath worsened over the past couple days. He notes he has had multipleprevious heart surgeries including cardiac stents and also [...] nausea, vomiting or diaphoresis. States he is noton any blood thinners. Nursing Notes were reviewed. [...] Needs: No Transportation Needs (10/02/2022) Received from [employer] A1250: Transportation Lack of Transportation (Medical): No [...] as well as an aid in the diagnosisof deep vein thrombosis (DVT). HIGH SENSITIVITY TROPONIN, [...] independently examined and evaluated the patient. Please seetheir attestation note for further details. In brief, Maryse Mak is a 69 y.o. male who presented to the emergency department for evaluation of chest pain and shortness of breath worsened over the past 1 to 2 days. Endorses [facility] of cardiac stentplacement, flail chest. Presents to the ED hemodynamically [...] I consider the discharge disposition reasonable. Maryse Mak (or their surrogate) and I have [...] their primary doctor or returning to the EDif there are any new or worsening of symptoms, particularly fever, chills, radiating chest pain, SOB, N/V, diaphoresis Follow-up with PCP in 1 week PROCEDURES: Unless otherwise noted below, none Procedures FINAL IMPRESSION 1. Chest wall pain DISPOSITION Discharge 08/11/2024 02:53:14 PM PATIENT REFERRED TO: [facility] [address] [place] [address] Go to If symptoms worsen Sae Jaimes MD [address] [facility] [address] Schedule an appointment as soon as possible [...] are any questions or concerns please feel freeto contact the dictating provider for clarification.) Becca Campa PA-C (electronically signed) Emergency Medicine Provider Becca Campa PA-C 08/11/24 1559 Cosigned by Surjit Romano DO at 08/11/2024 7:20 PM EDT documented in this [facility]03-28-2025 Physician Emergency department Note* Becca Campa PA-C - 08/11/2024 11:21 AM EDT EMERGENCY DEPARTMENT ENCOUNTER Pt Name: Maryse Mak [...] to the emergency department for evaluation of right-sidedchest pain and shortness of breath worsened over the past couple days. He notes he has had multipleprevious heart surgeries including cardiac stents and also [...] nausea, vomiting or diaphoresis. States he is noton any blood thinners. Nursing Notes were reviewed. [...] History Marital status: Single Social Drivers of YesVideo Transportation Needs: No Transportation Needs (10/02/2022) Received from [employer]IS A1250: Transportation Lack of Transportation (Medical): [...] as well as an aid in the diagnosisof deep vein thrombosis (DVT). HIGH SENSITIVITY TROPONIN, [...] independently examined and evaluated the patient. Please seetheir attestation note for further details. In brief, Maryse Mak is a 69 y.o. male who presented to the emergency department for evaluation of chest pain and shortness of breath worsened over the past 1 to 2 days. Endorses [facility] of cardiac stentplacement, flail chest. Presents to the ED hemodynamically [...] I consider the discharge disposition reasonable. Maryse Mak (or their surrogate) and I have [...] their primary doctor or returning to the EDif there are any new or worsening of symptoms, particularly fever, chills, radiating chest pain, SOB, N/V, diaphoresis Follow-up with PCP in 1 week PROCEDURES: Unless otherwise noted below, none Procedures FINAL IMPRESSION 1. Chest wall pain DISPOSITION Discharge 08/11/2024 02:53:14 PM PATIENT REFERRED TO: [facility] [address] [facility] [address] Go to If symptoms worsen Sae Jaimes MD [address] [facility] [address] Schedule an appointment as soon as possible [...] are any questions or concerns please feel freeto contact the dictating provider for clarification.) Becca Campa PA-C (electronically signed) Emergency Medicine Provider Becca Campa PA-C 08/11/24 1559 Cosigned by Surjit Romano DO at 08/11/2024 7:20 PM EDT [facility] HospitalEfturn79-68-4034 NoteOPG [address] (11) [facility] [address] [facility] [address] Maryse Mcgraw Obdulio is a 69 y.o. male being seen [...] allergies, and problem list items with Maryse Lucien Mak during this visit. Review of Systems There were no vitals taken for this visit. Imaging: No results found. 1. Arthritis of hip Return in about 3 months (around 08/29/2024), or if symptoms worsen or fail to improve. Mariela Morgan MD AUTHENTICATED BY MARIELA MORGAN, ON 05/31/2024 10:02:[address] [place], [place] 4108001-15-2025 History of Present illness Narrative* Mariela Morgan MD - 05/31/2024 10:01 AM EST OPG [address] (11) [facility] [address] [facility] [id number] Maryse Mak is a 69 y.o. male [...] allergies, and problem list items with Maryse Smiht during this visit. Review of Systems There were no vitals taken for this visit. Imaging: No results found. 1. Arthritis of hip Return in about 3 months (around 08/29/2024), or if symptoms worsen or fail to improve. Mariela Morgan MD documented in this [id number] Evaluation + Plan note* Assessment & Plan Note - Jeremy Segovia MD - 05/12/2024 9:10 AM EST Associated Problem(s): CAD (coronary artery disease) Reviewed. [id number] Miscellaneous Notes* Assessment & Plan Note - Jeremy Segovia MD - 05/12/2024 9:10 AM ESTAssociated Problem(s): CAD (coronary artery disease) Reviewed. documented in this [id number] [facility] [address] [facility] [address] Subjective: Maryse Mak is a 69 y.o. 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 [...] per CTS reviewed and 2022. Floating ribs reviewedon CT scan. Per CTS surgery. Prominent cardiac impulse noted. Consistent with previous surgery. Blood pressure controlled. No pedal edema lungs are clear no carotid bruits. Was seen by vascular surgery and jessica left carotid apparently stable compared to carotid Doppler 2 and half years ago. No signs of any heart failure arrhythmia no angina. Chest pain consistent with musculoskeletal typepain resolved. No changes encouraged him to stick with present medications occluding atorvastatin. History of somenoncompliance with medications discussed smoking cessation. 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 twice daily as needed muscle spasm/pain.. EPINEPHRINE (EPIPEN) 0.3 MG/0.3 ML ATIN Inject 0.3 mL (0.3 mg total) into the mid-thigh as needed for severe allergic reaction. . FAMOTIDINE (PEPCID) 20 MG TABLET Take 1 (one) tablet (20 mg total) by mouth 2 (two) times a day for7 days . FLUTICASONE PROPIONATE (FLONASE) 50 MCG/ACTUATION [...] 6 months (around 11/10/2024). Jeremy Segovia MD * Tia William MA - 05/12/2024 8:18 AM EST Review of Systems Constitutional: Negative for malaise/fatigue. Cardiovascular: Negative for chest pain, dyspnea on exertion, leg swelling and palpitations. Neurological: Negative for dizziness. documented in this [id number] Instructions* Patient Instructions* Tia William MA - 05/09/2024 8:09 AM EST How to Contact your Care Team: Provider: Dr. Jeremy Segovia MD Narrow Gauge Engineer: Paula BETTENCOURT certified ophthalmic surgical assistant: Tia documented in this [id number] Telephone encounter Note* Telephone Encounter - Karrie Prakash LPN - 04/19/2024 9:52 AM EST Could you print this off so I can send to [facility] please? [id number] Miscellaneous Notes* Telephone Encounter - Karrie Prakash LPN - 04/19/2024 9:52 AM EST Could you print this off so I can send to [facility] please? documented in this [id number] NoteOPG [address] (11) [facility] [address] [facility] [phone] Maryse Mak is a 69 y.o. [...] MD AUTHENTICATED BY MARIELA MORGAN, ON 02/14/2024 09:55:18[facility]09-23-2024 NoteOPG [address] [facility] [address] [facility] [address] Name: Maryse Mak Age: 69 y.o. 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 EPINEPHrine (EPIPEN) 0.3 (more content not included)...[facility] 02-07-2024 History of Present illness Narrative* Riddhi, Jacquelyn Mckeon MD - 02/07/2024 2:06 PM EDT OPG [address] [facility] [address] [place] [address] Name: Maryse Mak Age: 69 y.o. 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 twice daily as needed muscle spasm/pain.. EPINEPHrine (EPIPEN) 0.3 mg/0.3 mL AtIn Inject 0.3 mL (0.3 mg total) into the mid-thigh as needed for severe allergic reaction. . famotidine (PEPCID) 20 MG tablet Take 1 (one) tablet (20 mg total) by mouth 2 (two) times a day for7 days . gabapentin (NEURONTIN) 800 MG tablet [...] FEF25/75 ACTUAL PRE-BD FEF25/75 PRE % PREDICTED SOG31-25 PRE Z-SCORE PEAK FLOW PREDICTED PEAK FLOW [...] FEF25/75 POST % PREDICTED FEF25/75 % CHANGE WMK44-34 POST Z-SCORE PEAK FLOW ACTUAL POST-BD PEAK [...] using automated exposure control and/or adjustment of mAand/or kV according to patient size and/or use of iterative reconstruction technique. FINDINGS: There is contrast within the pulmonary arteries. The pulmonary trunk is upper limits of normal sizemeasuring 2.9 cm. There is no pulmonary embolus. [...] consolidation or infiltrates. There is no pleural effusion.There are no suspicious masses or nodules within [...] medication for the next 2 weeks. Will prescribeAnoro once daily in accordance with patient's formulary [...] spirometry. Jacquelyn Hannon MD documented in this [id number] Hospital Discharge instructions Follow Up Care 01/21/2024 10:06:14 With:Paulette CARBALLO CNP Address: [address] [place] [address]- When:Within 1 Month(s) [facility] 06-24-2024 History of Present illness Narrative* Mariela Morgan MD - 11/08/2023 1:15 PM EDT OPG [address] (11) [facility] [address] [facility] [id number] Maryse Lucien Wetzels is a 68 y.o. male being seen [...] improve. Mariela Morgan MD documented in this [id number] Hospital Discharge instructions Follow Up Care 09/27/2023 14:49:59 With:Paulette CARBALLO CNP Address: [address] [place] [address]- When:Within 1 Month(s) [facility] 05-08-2024 Hospital Discharge instructions Follow Up Care 09/22/2023 08:16:04 With:Paulette CARBALLO CNP Address: [address] [place] [address]- When: Unknown [facility] 12-19-2023 Hospital Discharge instructions Follow Up Care 05/04/2023 12:45:31 With:Vanessa Mcrae DO, FAM Address: When:Within 6 Month(s) [facility] 08-28-2023 Hospital Discharge instructions Patient Education 01/11/2023 11:19:47 Steps to Quit Smoking, Duvu-kl-Swve Steps to Quit Smoking Smoking tobacco is [...] a counselor. You are more likely to succeedwhen you do both. If you are or [...] a prescription, and some you can buy jegd-txi-xbdzovr. Some medicines may contain a drug called [...] you. Call a phone quitline, such as 8-159-ULVE-NOW, reach out to support groups, or work [...] provider. Document Revised: 04/24/2022 Document Reviewed: 04/24/2022 [employer] Patient Education 2022 [employer]. 01/11/2023 11:19:44 Obesity, Adult, Zmzk-to-Oelk Obesity, Adult Obesity is having too much body fat. Being obese means that your weight is more than what is healthy for you. BMI (body mass index) is a number that explains how much body fat you have. If you have a BMI of 30or more, you are obese. Obesity can cause [...] food choices, such as grocery stores and [employer]. What are the signs or symptoms? The [...] eat. ?How much exercise you get. Take qsas-gmh-pvsdasa and prescription medicines only as told by [...] provider. Document Revised: 12/09/2021 Document Reviewed: 12/09/2021 [employer] Patient Education 2022 [employer] 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 documented in this [id number] History of Present illness Narrative* Julio C Zheng PA-C - 12/11/2022 3:11 PM EDT Images from the original note were not included. Cardiothoracic Surgery Clinic Follow-up Heart & Vascular [facility] 12/11/2022 Julio C Zheng PA-C [address] [place] [address] Medical Office [facility] [phone] Patient: Maryse Mak Date of : 1955 (67 y.o.) PCP: Paulette Carballo CNP Assessment & Plan Disruption of closure [...] as well as impulsive behavior and poor sternalprecautions, he experienced nonunion of the sternum. He [...] back to the hospital and underwent ultrasound-guided insertionof a percutaneous drain catheter on September 01, 2022 with interventional radiology, Dr. Chambers. Per the orders of Dr. Nathan Eng, removal of anterior percutaneous drain on 09/14/2022 is performed. Patient was fitted with a chest binder as well as direct anterior compression to the previous fluid collection site with absorbent padding (rolled cotton hospital washcloths) and was advised at thattime to maintain compression until his next follow-up appointment, per orders of Dr. Eng. He was last seen in follow up on 09/28/22 at which time he appeared to have recovered well and cardiothoracic surgery signed off. He called in on 12/08/22 to report that he has had increased left chest wall pain over the prior week. He went to the ED in [place] and here at [facility], and CT scan showed that the prior [...] Echocardiogram complete w contrast Final Result by Tasha Taylor MD (11/07/2021 1444) Stress test only, [...] maximum 14 days allowed.) documented in this [id number] Instructions* Patient Instructions* Julio C Zheng PA-C - 12/11/2022 11:44 AM EDT Call to make an appointment with pulmonology to get refill on inhalers Do not lift more than 20 pounds We will refer you to pain management for additional pain control options. documented in this [id number] History of Present illness Narrative* Babita Valdez PA-C - 09/28/2022 10:45 AM EDT Images from the original note were not included. Cardiothoracic Surgery Clinic Follow-up Heart & Vascular [facility] 09/28/2022 Babita Valdez PA-C [address] [place] [address] Medical Office [facility] [phone] Patient: Maryse Mak Date of [...] his chest binder. Palpation of the anterior chestdoes not reveal the aforementioned findings. It is nontender with palpation, sternum is stable. Hischest x-ray reveals cardiomediastinal contours are stable. No pneumothorax, pneumomediastinum, or pleural effusion is identified. Chronic fracture deformities of the lateral left ribs again noted. Nofocal consolidation, overt pulmonary edema, or other infiltrative pulmonary process is identified. P artially imaged is posterior fusion hardware in the [...] Final Result by Interface, Lab Results In [place] (06/21/2022 1934) Echocardiogram complete w contrast Final Result by Tasha Taylor MD (11/07/2021 1444) Stress test only, exercise Final Result by Eunice Rodriguez MD (05/30/2018 1056) Cardiac Catheterization Final Result by Minoo Grimm MD (11/07/2021 1050) HOME Medications: Patient's Medications New Prescriptions No medications on file Previous Medications FLUTICASONE PROPIONATE (FLONASE) 50 MCG/ACTUATION NASAL SPRAY Instill 2 (two) sprays into each nostril daily . NXWISKOHMIC-ZTRWZNJJB-JAWOLOUS (TRELEGY ELLIPTA) 200-62.5-25 MCG DSDV Inhale 1 [...] maximum 14 days allowed.) documented in this [id number] Evaluation + Plan note* Assessment & Plan Note - Babita Valdez PA-C - 09/28/2022 10:38 AM EDT Associated Problem(s): Fluid collection at surgical site [...] his chest binder. Palpation of the anterior chestdoes not reveal the aforementioned findings. It is nontender with palpation, sternum is stable. Hischest x-ray reveals cardiomediastinal contours are stable. No pneumothorax, pneumomediastinum, or pleural effusion is identified. Chronic fracture deformities of the lateral left ribs again noted. Nofocal consolidation, overt pulmonary edema, or other infiltrative pulmonary process is identified. P artially imaged is posterior fusion hardware in the [...] same and agrees with the aforementioned plan. [id number] Miscellaneous Notes* Assessment & Plan Note - Babita Valdez PA-C - 09/28/2022 10:38 AM EDTAssociated Problem(s): Fluid collection at surgical site Images [...] his chest binder. Palpation of the anterior chestdoes not reveal the aforementioned findings. It is nontender with palpation, sternum is stable. Hischest x-ray reveals cardiomediastinal contours are stable. No pneumothorax, pneumomediastinum, or pleural effusion is identified. Chronic fracture deformities of the lateral left ribs again noted. Nofocal consolidation, overt pulmonary edema, or other infiltrative pulmonary process is identified. P artially imaged is posterior fusion hardware in the [...] with the aforementioned plan. documented in this [id number] manager relationship Note* Case Communication - Tutu Mancera RN - 09/25/2022 9:26 AM EDTCalled patient for a visit today. Patient stated that he was going to see his information officer today and did not need a visit. Next visit is scheduled for Wednesday. Patient with understanding. missed visit complete. Physician notified by inbox message. [id number] Miscellaneous Notes* Case Communication - Tutu Mancera RN - 09/25/2022 9:26 AM EDTCalled patient for a visit today. Patient stated that he was going to see his information officer today and did not need a visit. Next visit is scheduled for Wednesday. Patient with understanding. missed visit complete. Physician notified by inbox message. documented in this [id number] History of Present illness Narrative* Maryse Melton PA-C - 09/23/2022 9:47 AM EDT Patient was seen by home healthcare nurse [...] his chest. The nurse notified us via [employer] message today. I called Mr. Mak and spoke with him on the phone at this time. He said that he does not think there is any change in his chest in the past 2 days. I asked him if he would be willing to come in for afollow-up visit this week for us to evaluate [...] further. Maryse Melton PA-C documented in this [id number] manager relationship Note* Case Communication - Tutu Mancera RN - 09/23/2022 9:13 AM EDT Patient states he has not worn his heart hugger or abdominal binder for the last two days. edema noted to the left side of the chest. Patient put binder on prior to nurse leaving. Photo placed in epic. [id number] Miscellaneous Notes* Case Communication - Tutu Mancera RN - 09/23/2022 9:13 AM EDT Patient states he has not worn his heart hugger or abdominal binder for the last two days. edema noted to the left side of the chest. Patient put binder on prior to nurse leaving. Photo placed in epic. documented in this [id number] History of Present illness Narrative* Babita Valdez PA-C - 09/21/2022 11:22 AM EDT Images from the original note were not included. Cardiothoracic Surgery Clinic Follow-up Heart & Vascular [facility] 09/21/2022 Babita Valdez PA-C [address] [place] [address] Medical Office [facility] [id number] Patient: Maryse Mak Date of [...] Eng. During the initial postoperative course, he experiencedacute left hemithorax requiring the insertion of chest tube. As a result of persistent coughing as well as impulsive behavior and poor sternal precautions, he experienced nonunion of the sternum. He ultimately required sternal rewiring with plating on August 06, [address] Nathan Eng. Thereafter,sternal wound reexploration, removal of inferior plating and [...] cotton hospital washcloths) and was advised at thattime to maintain compression until his next follow-up appointment, per orders of Dr. Eng. Consequently, Mr. Mak did not present for his scheduled appointment. He is rescheduled today on 09/21/2022 for evaluation which he has attended. Physical examination: He ambulates with a steady gait on his own accord to the examination room. Heis sitting in the examination chair, legs in dependent position, no obvious visible acute distress.He is not wearing his chest binder nor the padding for compression. Mr. Mak states he took off thebinder and compression for rastafarian and has not since reapplied it. It should be noted that when he is seen by pulmonology, the patient is noted to be wearing the binder. The previous insertion site ofthe percutaneous drain appears to be healed. There is no obvious fluctuant mass noted at the site. Bilateral pectoralis do appear somewhat fluctuant, left greater than right. Patient denies pain, calor, erythema nor any other discomforts of the bilateral pectoralis. Patient is in agreement that theleft pec has increased in size with edema. Plan: At this time, I have advised Mr. Mak that he will need to continue to wear the abdominal binder with anterior direct compression as previously described. Discussion in regards to potential space and the attempt to reduce that space with compression while he is healing from his last procedurewith Dr. Eng. Dr. Eng has reviewed this [...] Final Result by Interface, Lab Results In [facility] (06/21/2022 1934) Echocardiogram complete w contrast Final Result by Tasha Taylor MD (11/07/2021 1444) Stress test only, [...] (two) sprays into each nostril daily . NLRJTZMJVKJ-CKCKJVOHT-WUYMKLTQ (TRELEGY ELLIPTA) 200-62.5-25 MCG DSDV Inhale 1 [...] maximum 14 days allowed.) documented in this [id number] Instructions* Patient Instructions* Babita Valdez PA-C - 09/21/2022 11:22 AM EDT At this time, I have advised Mr. Mak that he will need to continue to wear the abdominal binder with anterior direct compression as previously described. Discussion in regards to potential space andthe attempt to reduce that space with compression [...] with the aforementioned plan. documented in this [id number] Evaluation + Plan note* Assessment & Plan Note - Babita Valdez PA-C - 09/21/2022 10:47 AM EDT Associated Problem(s): Fluid collection at surgical site [...] Eng. During the initial postoperative course, he experiencedacute left hemithorax requiring the insertion of chest tube. As a result of persistent coughing as well as impulsive behavior and poor sternal precautions, he experienced nonunion of the sternum. He ultimately required sternal rewiring with plating on August 06, [address] Nathan Eng. Thereafter,sternal wound reexploration, removal of inferior plating and [...] cotton hospital washcloths) and was advised at thattime to maintain compression until his next follow-up appointment, per orders of Dr. Eng. Consequently, Mr. Mak did not present for his scheduled appointment. He is rescheduled today on 09/21/2022 for evaluation which he has attended. Physical examination: He ambulates with a steady gait on his own accord to the examination room. Heis sitting in the examination chair, legs in dependent position, no obvious visible acute distress.He is not wearing his chest binder nor the padding for compression. Mr. Mak states he took off thebinder and compression for rastafarian and has not since reapplied it. It should be noted that when he is seen by pulmonology, the patient is noted to be wearing the binder. The previous insertion site ofthe percutaneous drain appears to be healed. There is no obvious fluctuant mass noted at the site. Bilateral pectoralis do appear somewhat fluctuant, left greater than right. Patient denies pain, calor, erythema nor any other discomforts of the bilateral pectoralis. Patient is in agreement that theleft pec has increased in size with edema. Plan: At this time, I have advised Mr. Mak that he will need to continue to wear the abdominal binder with anterior direct compression as previously described. Discussion in regards to potential space and the attempt to reduce that space with compression while he is healing from his last procedurewith Dr. Eng. Dr. Eng has reviewed this previously with with the patient his plan. We will follow-up in 1 week with Mr. Mak or sooner should he develop any concerns regarding the anterior chest wall. Patient verbalizes understanding of same and agrees with the aforementioned plan. [id number] Miscellaneous Notes* Assessment & Plan Note - Babita Valdez PA-C - 09/21/2022 10:47 AM EDTAssociated Problem(s): Fluid collection at surgical site Images [...] Eng. During the initial postoperative course, he experiencedacute left hemithorax requiring the insertion of chest tube. As a result of persistent coughing as well as impulsive behavior and poor sternal precautions, he experienced nonunion of the sternum. He ultimately required sternal rewiring with plating on August 06, [address] Nathan Eng. Thereafter,sternal wound reexploration, removal of inferior plating and [...] cotton hospital washcloths) and was advised at thattime to maintain compression until his next follow-up appointment, per orders of Dr. Eng. Consequently, Mr. Mak did not present for his scheduled appointment. He is rescheduled today on 09/21/2022 for evaluation which he has attended. Physical examination: He ambulates with a steady gait on his own accord to the examination room. Heis sitting in the examination chair, legs in dependent position, no obvious visible acute distress.He is not wearing his chest binder nor the padding for compression. Mr. Mak states he took off thebinder and compression for rastafarian and has not since reapplied it. It should be noted that when he is seen by pulmonology, the patient is noted to be wearing the binder. The previous insertion site ofthe percutaneous drain appears to be healed. There is no obvious fluctuant mass noted at the site. Bilateral pectoralis do appear somewhat fluctuant, left greater than right. Patient denies pain, calor, erythema nor any other discomforts of the bilateral pectoralis. Patient is in agreement that theleft pec has increased in size with edema. Plan: At this time, I have advised Mr. Mak that he will need to continue to wear the abdominal binder with anterior direct compression as previously described. Discussion in regards to potential space and the attempt to reduce that space with compression while he is healing from his last procedurewith Dr. Eng. Dr. Eng has reviewed this previously with with the patient his plan. We will follow-up in 1 week with Mr. Mak or sooner should he develop any concerns regarding the anterior chest wall. Patient verbalizes understanding of same and agrees with the aforementioned plan. documented in this [id number] History of Present illness Narrative* Abigail Page MD - 09/17/2022 1:26 PM EDT [facility] [address] [facility] [id number] Name: Maryse Mak Age: 67 y.o. : [...] interim. He is wearing a chest binder. 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 yyccnogyzvb-yebebmhge-oqzxrrjm (Trelegy Ellipta) 200-62.5-25 mcg DsDv Inhale 1 [...] Wt 109.3 kg (240 lb 14.4 oz) OxT919% BMI 32.67 kg/m from Vitals Flowsheet Date/Time Weight 07/01/22 0935 108.1 [...] months Abigail Page MD documented in this [id number] manager relationship Note* Case Communication - Tutu Mancera RN - 09/17/2022 12:00 PM EDTCalled patient for visit and patient stated that he is in [facility] because of an emergency. Missed visit completed. physician notified. Next visit scheduled for 09/18/22 [id number] Miscellaneous Notes* Case Communication - Tutu Mancera RN - 09/17/2022 12:00 PM EDTCalled patient for visit and patient stated that he is in [facility] because of an emergency. Missed visit completed. physician notified. Next visit scheduled for 09/18/22 documented in this [id number] Evaluation + Plan note* Assessment & Plan Note - Julio C Zheng PA-C - 09/14/2022 1:31 PM EDT Associated Problem(s): Fluid collection at surgical site Assessment: Disruption of closure of sternotomy Status post sternal rewiring with plating on August 06, [address] Nathan Eng Status post sternal wound reexploration, removal of inferior plating and screws, excision of ccyqac51% of sternum, and limited myocutaneous flap on August 19, [address] Wood Eng Status post ultrasound-guided insertion of a percutaneous drainage catheter into the anterior chestwall fluid collection on September 01, [address] Florencio Chambers Plan: 1. Continue to wash drain site daily 2. Apply betadine ointment and gauze twice daily 3. Place wash cloth roll over dressing, cover with washcloth, and apply binder to chest securely 4. Please keep pressure on drain site at all times [id number] History of Present illness Narrative* Julio C Zheng PA-C - 09/14/2022 1:31 PM EDT Images from the original note were not included. Cardiothoracic Surgery Clinic Follow-up Heart & Vascular [facility] 09/14/2022 Julio C Zheng PA-C [address] [place] [address] Medical Office [facility] [phone] Patient: Maryse Mak Date of : 1955 (67 y.o.) PCP: PAULETTE CARBALLO CNP Assessment & Plan Fluid collection at surgical site Assessment: Disruption of closure of sternotomy Status post sternal rewiring with plating on August 06, [address] Nathan Eng Status post sternal wound reexploration, removal of inferior plating and screws, excision of bejlgs93% of sternum, and limited myocutaneous flap on August 19, [address] Wood Eng Status post ultrasound-guided insertion of a percutaneous drainage catheter into the anterior chestwall fluid collection on September 01, 2022 by [...] pulled the drain out slightly, so he pushedit back in and then noticed increase in [...] to provide pressure. Instructions and supplies were givento the patient and he verbalized understanding. He will be returning on 09/16/22 for recheck. Objective Tobacco Use Smoking Status Every Day Packs/day: 0.25 Years: 45.00 Pack years: 11.25 Types: Cigarettes Smokeless Tobacco Never Vaping Use Vaping Status Never Used Passive vaping exposure: Yes EKG 12-lead Final Result by Interface, Lab Results In [facility] (06/21/2022 1934) Echocardiogram complete w contrast Final Result by Tasha Taylor MD (11/07/2021 1444) Stress test only, [...] (two) sprays into each nostril daily . JHSAXDSAGQG-XOQUESSTM-HCNFJACZ (TRELEGY ELLIPTA) 200-62.5-25 MCG DSDV Inhale 1 [...] Pulse 79 Temp 97.9 F (36.6 C) Ht6' Wt 109.8 kg (242 lb) SpO2 99% [...] creatinine clearance: 74.8 mL/min documented in this [id number] Miscellaneous Notes* Assessment & Plan Note - Julio C Zheng PA-C - 09/14/2022 1:31 PM EDTAssociated Problem(s): Fluid collection at surgical site Assessment: Disruption of closure of sternotomy Status post sternal rewiring with plating on August 06, [address] Nathan Eng Status post sternal wound reexploration, removal of inferior plating and screws, excision of wyztoe67% of sternum, and limited myocutaneous flap on August 19, [address] Wood Eng Status post ultrasound-guided insertion of a percutaneous drainage catheter into the anterior chestwall fluid collection on September 01, [address] Florencio Chambers Plan: 1. Continue to wash drain site daily 2. Apply betadine ointment and gauze twice daily 3. Place wash cloth roll over dressing, cover with washcloth, and apply binder to chest securely 4. Please keep pressure on drain site at all times documented in this [id number] Instructions* Patient Instructions* Juilo C Zheng PA-C - 09/14/2022 12:06 PM EDT Continue to wash drain site daily Apply betadine ointment and gauze twice daily Place wash cloth roll over dressing, cover with washcloth, and apply binder to chest securely Please keep pressure on drain site at all times documented in this [id number] History of Present illness Narrative* Babita Valdez PA-C - 09/10/2022 12:28 PM EDT Images from the original note were not included. Dr. Nathan Eng met with Maryse Mak today in regards to anterior chest drain. This physician assistant commissioner was present for the appointment. Patient has a 10 [employer] Flexima multipurposedrain which is intact, suction functioning. He continues to have serosanguineous drainage which is very thin and bright red appearing. Patient reports he is having approximately 4 to 10 mL daily ofoutput. During his appointment, he is visibly irritated and verbalizes feeling agitated and that heis tired of having surgeries and the drain [...] drainage system and to maintain strict output over24- hour period and to call cardiac surgery to report amount of drainage. Consideration for removal of drain after obtaining 24-hour output. Patient verbalizes understanding and agrees to same. He hasalso been advised that once the drain is [...] track formation. Patient also states he is experiencingextreme pruritus of the left lower extremity and he has scratched at this and has new skin breakdown at the site. Dr. Eng asked Mr. Mak if the [facility] staying that could potentially have bedbugs. Mr. Mak is adamant that the facility does not have bedbugs and this is related to generalized skin irritation. Full office visit note to be dictated by Dr. nEg for appointment. documented in this [id number] History of Present illness Narrative* Maryse Melton PA-C - 09/07/2022 11:37 AM EDT Images from the original note were not included. September 07, 2022 RE: Maryse Mak : 1955 ASSESSMENT: Disruption of closure of sternotomy Status post sternal rewiring with plating on August 06, [address] Nathan Eng Status post sternal wound reexploration, removal of inferior plating and screws, excision of % of sternum, and limited myocutaneous flap on August 19, [address] Wood Eng Status post ultrasound-guided insertion of a percutaneous drainage catheter into the anterior chestwall fluid collection on September 01, 2022 by [...] today. He states that he cannot sleep withthe drain in. He desperately wants to drain [...] Pulse 80 Temp 98.7 F (37.1 C) Ht6' Wt 107 kg (236 lb) SpO2 96% [...] (two) sprays into each nostril daily . [id number]-TEBGQTRQX-ZSTFUNJY (TRELEGY ELLIPTA) 200-62.5-25 MCG DSDV Inhale 1 [...] yours; Maryse Melton PA-C documented in this [id number] History of Present illness Narrative* Maryse Melton PA-C - 09/07/2022 11:37 AM EDT Images from the original note were not included. September 07, 2022 RE: Maryse Mak : 1955 ASSESSMENT: Disruption of closure of sternotomy Status post sternal rewiring with plating on August 06, [address] Nathan Eng Status post sternal wound reexploration, removal of inferior plating and screws, excision of % of sternum, and limited myocutaneous flap on August 19, [address] Wood Eng Status post ultrasound-guided insertion of a percutaneous drainage catheter into the anterior chestwall fluid collection on September 01, 2022 by [...] today. He states that he cannot sleep withthe drain in place. He desperately wants the drain out. He is very upset that he has had multiple procedures to correct his sternal problem and that he still has the drain in place. He states that itdrained 40 mL on Wednesday and 40 mL [...] Pulse 80 Temp 98.7 F (37.1 C) Ht6' Wt 107 kg (236 lb) SpO2 96% [...] (two) sprays into each nostril daily . [id number]-RBEZFAZBB-UZLFIEPF (TRELEGY ELLIPTA) 200-62.5-25 MCG DSDV Inhale 1 [...] yours; Maryse Melton PA-C documented in this [id number] Patient's home Progress note* Actions transfer Narratives Patient went to follow up ap pointment with MD and was found to have fluid at his surgical site. Patient was directed to the ER and admitted under observation on 08/31/22. On 09/02/22 patient went inpatient and transfer was completed on 09/03/22. documented in this encounter [id number] Patient's home Progress note* Actions transfer Narratives Patient went to follow up ap pointment with MD and was found to have fluid at his surgical site. Patient was directed to the ER and admitted under observation on 08/31/22. On 09/02/22 patient went inpatient and transfer was completed on 09/03/22. documented in this encounter [id number] Evaluation + Plan note* Assessment & Plan Note - Julio C Zheng PA-C - 08/31/2022 12:57 PM EDTAssociated Problem(s): Disruption of closure of sternum or sternotomy, subsequent encounter Patient transported to ED for evaluation of possible sternal fluid collection Patient will need admission, observation status CT chest without contrast IV antibiotics - Leslie per Dr. Eng Consult to interventional radiology for drain placement [id number] History of Present illness Narrative* Julio C Zheng PA-C - 08/31/2022 12:57 PM EDT Images from the original note were not included. Cardiothoracic Surgery Clinic Follow-up Heart & Vascular [facility] 08/31/2022 Julio C Zheng PA-C [address] [place] [address] Medical Office [facility] [phone] Patient: Maryse Mak Date of [...] I spoke with bed coordinator and nursing dials supervisor who state that there are currently no [...] Final Result by Interface, Lab Results In [facility] (06/21/2022 1934) Echocardiogram complete w contrast Final Result by Tasha Taylor MD (11/07/2021 1444) Stress test only, [...] (two) sprays into each nostril daily . XUEZILNQVRY-ZOVBIAUTE-BBUPGEZC (TRELEGY ELLIPTA) 200-62.5-25 MCG DSDV Inhale 1 [...] RBC 4.39 (L) 08/31/2022 documented in this [id number] Miscellaneous Notes* Assessment & Plan Note - Julio C Zheng PA-C - 08/31/2022 12:57 PM EDT Associated Problem(s): Disruption of closure of sternum or sternotomy, subsequent encounter Patient transported to ED for evaluation of possible sternal fluid collection Patient will need admission, observation status CT chest without contrast IV antibiotics - Ancef and Lorio per Dr. Eng Consult to interventional radiology for drain placement documented in this [id number] Instructions* Patient Instructions* Julio C Zheng PA-C - 08/31/2022 12:54 PM EDT Patient transported to ED for evaluation of possible sternal fluid collection Patient will need admission, observation status CT chest without contrast IV antibiotics - Marilyn and Johan per Dr. Eng Consult to interventional radiology for drain placement documented in this [id number] Patient's home Progress note* Actions transfer Narratives [...] - transfer complete. documented in this encounter [id number] History of Present illness Narrative* Maryse Melton [...] (two) sprays into each nostril daily . JQUSYKSLNCA-ENTUNBQUX-JQLONQLR (TRELEGY ELLIPTA) 200-62.5-25 MCG DSDV Inhale 1 [...] yours; Maryse Melton PA-C documented in this [id number] History of Present illness Narrative* Mariela Morgan MD - 08/05/2022 10:17 AM EDT [facility] [address] [facility] [address] [facility] [id number] Marysemiguel Mak is a 67 y.o. male being [...] improve. Mariela Morgan MD documented in this [id number] Note* Addendum Note - Maryse Melton PA-C - 08/03/2022 11:24 AM EDTAddended by: MARYSE MELTON on: 08/03/2022 11:24 AM Modules accepted: Orders [facility] Work Phone: 1(177) 158-197303-20-2023 Note* Addendum Note - Maryse Melton PA-C - 08/03/2022 11:24 AM EDTAddended by: MARYSE MELTON on: 08/03/2022 11:24 AM Modules accepted: Orders [facility] Work Phone: 1(884) 153-119203-20-2023 Note* Addendum Note - Maryse Melton PA-C - 08/03/2022 11:24 AM EDTAddended by: MARYSE MELTON on: 08/03/2022 11:24 AM Modules accepted: Orders [facility] Work Phone: 1(260) 758-334503-20-2023 Miscellaneous Notes* Addendum Note - Maryse Melton PA-C - 08/03/2022 11:24 AM EDTAddended by: MARYSE MELTON on: 08/03/2022 11:24 AM Modules accepted: Orders documented in this [id number] History of Present illness Narrative* Wood Eng MD - 08/03/2022 10:48 AM EDT Maryse Mak [phone] @ACCTANASTASIYA@ Wood Eng MD 08/03/22 Room/bed info not [...] blocks by anesthesia. 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 30 tablet 3 fluticasone propionate (FLONASE) 50 mcg/actuation nasal spray Instill 2 (two) sprays into each nostril daily . 16 g 12 kypxvfrsmid-ksxxvqgmt-ncomiqul (Trelegy Ellipta) 200-62.5-25 mcg DsDv Inhale 1 [...] 1.1 Final 08/04/2017 0.98 Final Comment: The [employer] recommended therapeutic range for Warfarin (Coumadin) therapy goals: PROPHYLAXIS/TREATMENT of: INR Venous Thrombosis, Pulmonary Embolism 2.0-3.0 Prevention of VTE (Orthopedic Surgery) 2.0-3.0 Atrial Fibrillation 2.0-3.0 Myocardial Infarction 2.0-3.0 Mechanical Prosthetic Heart Valves (Aortic position) 2.0-3.0 Mechanical Prosthetic Heart Valves (Mitral Position) 2.5-3.5 [employer] evidence-based clinical practice guidelines. CHEST. 2012 (9th ed) APTT Date Value Ref Range Status 11/26/2021 31 23 - 34 seconds Final Albumin Date Value Ref Range Status 07/30/2022 3.2 3.2 - 5.2 g/dL Final ] Problem List Items Addressed This Visit None documented in this [id number] Hospital Discharge instructions * Discharge Instructions* Chema Webber MD - 07/07/2022 4:[address] scans noted several abnormalities which will require follow-up. The radiologist recommended a CT angiogram of the right leg. Please call Dr. Bethea's office in the AM. * Attachments The following attachments cannot be sent through Care Everywhere. * Rib Fracture (Lebanese) * Knee Pain or Injury (Lebanese) [facility] Emergency [facility] Note* Markel Fuller RN - 07/07/2022 2:59 AM EST Pt states Dilaudid eased pain until he had to go move around at CT. States pain has returned [facility]02-[facility] Emergency department Note* Markel Fuller RN - 07/07/2022 2:59 AM EST Pt states Dilaudid eased pain until he had to go move around at CT. States pain has returned * Chema Webber MD - 07/07/2022 1:58 AM EST EMERGENCY DEPARTMENT REPORT [facility] EMERGENCY DEPARTMENT SERVICE DATE: 07/07/22 PCP: [...] not elsewhere classified Essential hypertension, benign Hyperlipidemia MT (myocardial infarction) Migraine SURGICAL HISTORY: Past Surgical [...] Portions of this chart were created using Mobibeam electronic dictation. Please excuse any typographical or grammatical errors contained herein. Chema Webber MD 07/07/22 0539 * Markel Fuller RN - 07/07/2022 1:29 AM EST documented in [facility] Physician Emergency department Note* Chema Webber MD - 07/07/2022 1:58 AM EST EMERGENCY DEPARTMENT REPORT [facility] EMERGENCY DEPARTMENT SERVICE DATE: 07/07/22 PCP: [...] not elsewhere classified Essential hypertension, benign Hyperlipidemia MT (myocardial infarction) Migraine SURGICAL HISTORY: Past Surgical [...] Portions of this chart were created using Mobibeam electronic dictation. Please excuse any typographical or grammatical errors contained herein. Chema Webber MD 07/07/22 0539 [employer] Work Phone: 1(727) 316-518702-21-2023 Emergency department Note* Markel Fuller RN - 07/07/2022 1:29 AM EST [employer] [facility]02-15-2023 History of Present illness Narrative* Abigail Page MD - 07/01/2022 9:49 AM EST [facility] [address] [facility] [address] [place] [address] Name: Maryse Mak Age: 67 y.o. 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; Service: Cardiovascular left arm leg sx right and left blood clots Bilateral 2009 in [facility] SHOULDER SURGERY Current Outpatient Medications on File [...] 1.1 Final 08/04/2017 0.98 Final Comment: The [employer] recommended therapeutic range for Warfarin (Coumadin) therapy goals: PROPHYLAXIS/TREATMENT of: INR Venous Thrombosis, Pulmonary Embolism 2.0-3.0 Prevention of VTE (Orthopedic Surgery) 2.0-3.0 Atrial Fibrillation 2.0-3.0 Myocardial Infarction 2.0-3.0 Mechanical Prosthetic Heart Valves (Aortic position) 2.0-3.0 Mechanical Prosthetic Heart Valves (Mitral Position) 2.5-3.5 [employer] evidence-based clinical practice guidelines. CHEST. 2012 (9th ed) APTT Date Value Ref Range Status 11/26/2021 31 23 - 34 seconds Final Albumin Date Value Ref Range Status 02/19/2022 3.6 3.2 - 5.2 g/dL Final ] Problem List Items Addressed This Visit None documented in this [id number] Hospital Discharge instructions Follow Up Care 06/10/2022 12:01:35 With:Paulette CARBALLO CNP Address: [address] [place] [address]- When:Within 6 Month(s) [facility] 01-19-2023 Hospital Discharge instructions Follow Up Care 06/04/2022 09:37:31 With:Paulette CARBALLO CNP Address: [address] [place] [address]- When:Within 1 Month(s) [facility] 12-19-2022 NotePROCEDURE: CT CHEST W WO [...] Signed by: Rolando Cuenca MD 05/04/22 [facility] NotePROCEDURE: CT CHEST W WO [...] lobe of the liver. Adrenals are unremarkable. [facility] RIS [id number] NotePROCEDURE: XR RIBS LEFT INCLUDE CHEST (MIN [...] Signed by: Rolando Cuenca MD 04/06/22 [facility]SC[facility]09-14-2022 History of Present illness Narrative* Alexandria Rizvi, PT - 01/28/2022 10:18 AM EDT Cardiac Rehab Session. Ref to daily session report in Procedures. Supervising Physician: Dr. Rodriguez documented in this [id number] Telephone encounter Note* Telephone Encounter - Tia William MA - 01/20/2022 3:14 PM EDT Upcoming 04/30/22 w/ Dr. Segovia [id number] Miscellaneous Notes* Telephone Encounter - Tia William MA - 01/20/2022 3:14 PM EDT Upcoming 04/30/22 w/ Dr. Segovia documented in this [id number] Hospital Discharge instructions Follow Up Care 01/15/2022 12:14:13 With:Paulette CARBALLO CNP Address: [address] [place] [address]- When:Within 6 Month(s) [facility] 08-24-2022 History of Present illness Narrative* Mariela Sutherland DO - 01/07/2022 4:10 PM EDT Just called my office supposedly asking what time we are meeting for me to do surgery on hm in [place]. See my consult Confusion vs. acute intox documented in this [id number] Note* Addendum Note - Caridad Smith CNP - 12/29/2021 10:40 AM EDTAddended by: CARIDAD SMITH on: 12/29/2021 10:40 AM Modules accepted: Orders [id number] Note* Addendum Note - Caridad Smith CNP - 12/29/2021 10:40 AM EDTAddended by: CARIDAD SMITH on: 12/29/2021 10:40 AM Modules accepted: Orders [id number] Miscellaneous Notes* Addendum Note - Caridad Smith CNP - 12/29/2021 10:40 AM EDTAddended by: CARIDAD SMITH on: 12/29/2021 10:40 AM Modules accepted: Orders * Addendum Note - Caridad Kramer MA - 12/29/2021 10:39 AM EDTAddended by: CARIDAD KRAMER on: 12/29/2021 10:39 AM Modules accepted: Orders documented in this [id number] Note* Addendum Note - Caridad Kramer MA - 12/29/2021 10:39 AM EDTAddended by: CARIDAD KRAMER on: 12/29/2021 10:39 AM Modules accepted: Orders [id number] Note* Addendum Note - Caridad Kramer MA - 12/29/2021 10:39 AM EDTAddended by: CARIDAD KRAMER on: 12/29/2021 10:39 AM Modules accepted: Orders [id number] Note* Addendum Note - Caridad Kramer MA - 12/29/2021 10:39 AM EDTAddended by: CARIDAD KRAMER on: 12/29/2021 10:39 AM Modules accepted: Orders [id number] Miscellaneous Notes* Addendum Note - Caridad Kramer MA - 12/29/2021 10:39 AM EDTAddended by: CARIDAD KRAMER on: 12/29/2021 10:39 AM Modules accepted: Orders documented in this [id number] Instructions* Patient Instructions* Josef Steward RN - 12/29/2021 8:02 AM EDT PROVIDER: DR JEREMY SEGOVIA NURSE: IZABELLA FLORENCE CONTINUING EDUCATION DIRECTOR # [phone] FAX # [phone] CALL OFFICE FOR QUESTIONS CONCERNS OR REFILLS documented in this [id number] Instructions* Patient Instructions* Josef Steward RN - 12/29/2021 8:02 AM EDT PROVIDER: DR JEREMY SEGOVIA NURSE: IZABELLA FLORENCE CONTINUING EDUCATION DIRECTOR # [phone] FAX # [phone] CALL OFFICE FOR QUESTIONS CONCERNS OR REFILLS documented in this [id number] Instructions* Patient Instructions* Josef Steward RN - 12/29/2021 8:02 AM EDT PROVIDER: DR JEREMY SEGOVIA NURSE: IZABELLA FLORENCE CONTINUING EDUCATION DIRECTOR # [phone] FAX # [phone] CALL OFFICE FOR QUESTIONS CONCERNS OR REFILLS documented in this [id number] History of Present illness Narrative* Caridad Smith CNP - 12/29/2021 8:00 AM EDT General Cardiology Clinic Follow-up Heart & Vascular [facility] 12/29/2021 Caridad Smith CNP [address] [place] [address] Medical [facility] [address] Patient: Maryse Mak Date of : [...] Echocardiogram complete w contrast Final Result by Tasha Taylor MD (11/07/2021 1444) Stress test only, [...] creatinine clearance: 71.9 mL/min documented in this [id number] History of Present illness Narrative* Caridad Smith CNP - 12/29/2021 8:00 AM EDT General Cardiology Clinic Follow-up Heart & Vascular [facility] 12/29/2021 Caridad Smith CNP [address] Medical Office [facility] [address] Patient: Maryse Mak Date of [...] Echocardiogram complete w contrast Final Result by Tasha Taylor MD (11/07/2021 1444) Stress test only, [...] creatinine clearance: 71.9 mL/min documented in this [id number] History of Present illness Narrative* Caridad Smith CNP - 12/29/2021 8:00 AM EDT General Cardiology Clinic Follow-up Heart & Vascular [facility] 12/29/2021 Caridad Smith CNP [address] [place] [address] Medical Office [facility] [address] Patient: Maryse Mak Date of [...] Echocardiogram complete w contrast Final Result by Tasha Taylor MD (11/07/2021 1444) Stress test only, [...] creatinine clearance: 71.9 mL/min documented in this [id number] Evaluation + Plan note* Assessment & Plan [...] with your primary care provider and your refresh technician. If you have any questions regarding your heart surgery in the future, please feel free to call. [id number] History of Present illness Narrative* Julio C Zheng PA-C - 12/25/2021 11:54 AM EDT Cardiothoracic Surgery Clinic Follow-up Heart & Vascular [facility] 12/25/2021 Julio C Zheng PA-C [address] [facility] Medical Office [facility] [address] Patient: Maryse Mak Date of [...] with your primary care provider and your refresh technician. If you have any questions regarding your [...] H. influenzae; antibiotic therapy managed by pulmonology Lmkpi-hm-dixhykgs loculated mixed density hemothorax noted to CT [...] Echocardiogram complete w contrast Final Result by Tasha Taylor MD (11/07/2021 1444) Stress test only, [...] 12/25/2021 CREATININE 1.14 12/25/2021 documented in this [id number] Miscellaneous Notes* Assessment & Plan Note - [...] with your primary care provider and your refresh technician. If you have any questions regarding your heart surgery in the future, please feel free to call. documented in this [id number] Instructions* Patient Instructions* Julio C Zheng PA-C [...] with your primary care provider and your refresh technician. If you have any questions regarding your heart surgery in the future, please feel free to call. documented in this [id number] History of Present illness Narrative* Julio C Zheng PA-C - 12/19/2021 11:43 AM EDT Images from the original note were not included. Cardiothoracic Surgery Clinic Follow-up Heart & Vascular [facility] 12/19/2021 Julio C Zheng PA-C [address] [facility] Medical Office [facility] [address] Patient: Maryse Mak Date of [...] your ongoing recovery from heart surgery at [phone], option #3 after 5:00 PM Follow-up: No [...] H. influenzae; antibiotic therapy managed by pulmonology Yetcm-zb-gwilmxmc loculated mixed density hemothorax noted to CT [...] Final Result by Interface, Lab Results In [facility] (11/25/2021 0720) Echocardiogram complete w contrast Final Result by Tasha Taylor MD (11/07/2021 1444) Stress test only, [...] 12/19/2021 CREATININE 1.10 12/19/2021 documented in this [id number] Evaluation + Plan note* Assessment & Plan [...] your ongoing recovery from heart surgery at [phone], option #3 after 5:00 PM [id number] Miscellaneous Notes* Assessment & Plan Note - [...] your ongoing recovery from heart surgery at [phone], option #3 after 5:00 PM documented in this [id number] Instructions* Patient Instructions* Julio C Zheng PA-C [...] your ongoing recovery from heart surgery at [phone], option #3 after 5:00 PM documented in this [id number] History of Present illness Narrative* Babita Valdez PA-C - 12/12/2021 12:51 PM EDT Patient had called to state that he did not receive antibiotic therapy which was to be delivered byUPS. Note was sent to research archaeologist for follow-up. In the meantime, phone call placed today on 12/12/2021 to patient to see if he has received his antibiotic yet. Patient states that shortly after he gotoff the phone with this PA, his neighbor had indicated that the package from [facility] containing the antibiotic was delivered to [...] running errands without difficulty. documented in this [id number] History of Present illness Narrative* Shani Herrera [...] call pt himself now. 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; Service: Cardiovascular HC LEFT HEART CATH N/A 11/07/2021 Procedure: Left Heart Cath; Surgeon: Minoo Grimm MD; 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 When in need of refills please call the phone number listed above. Please include medication name, pharmacy name and specify 30 or 90 day supply Please check with your pharmacy within 24 hours of your request for refill. You must follow up as directed to continue current refills. Thank you! documented in this [id number] Note* Addendum Note - Maryse Melton PA-C - 11/11/2021 11:16 AM EDTAddended by: MARYSE MELTON on: 11/11/2021 11:16 AM Modules accepted: Orders [facility] Work Phone: 1(894) 756-832106-28-2022 Miscellaneous Notes* Addendum Note - Maryse Melton PA-C - 11/11/2021 11:16 AM EDTAddended by: MARYSE MELTON on: 11/11/2021 11:16 AM Modules accepted: Orders documented in this [id number] History of Present illness Narrative* Babita Valdez [...] Heart hugger and heart pillow instruction 12. [place]-shama catheter, A-line, temporary epicardial pacemaker education 13. Incisional care 14. Ambulation 4 times daily and progress as tolerated 15. Consents signed and placed onto chart Last dose of antiplatelet therapy: [employer] insurance salesperson: Maryse Mak (son) [phone] Mistypilo Mak (daughter) [phone] Code word: 1972 documented in this [id number] History of Present illness Narrative* Wood Eng MD - 11/10/2021 2:56 PM EDT Maryse Mak [phone] @[facility]@ Wood Eng MD 11/10/21 Room/bed info not [...] 1.1 Final 08/04/2017 0.98 Final Comment: The [employer] recommended therapeutic range for Warfarin (Coumadin) therapy goals: PROPHYLAXIS/TREATMENT of: INR Venous Thrombosis, Pulmonary Embolism 2.0-3.0 Prevention of VTE (Orthopedic Surgery) 2.0-3.0 Atrial Fibrillation 2.0-3.0 Myocardial Infarction 2.0-3.0 Mechanical Prosthetic Heart Valves (Aortic position) 2.0-3.0 Mechanical Prosthetic Heart Valves (Mitral Position) 2.5-3.5 [employer] evidence-based clinical practice guidelines. CHEST. 2012 (9th ed) APTT Date Value Ref Range Status 11/07/2021 80 (H) 23 - 34 seconds Final Albumin Date Value Ref Range Status 11/07/2021 3.2 3.2 - 5.2 g/dL Final ] Problem List Items Addressed This Visit None documented in this [id number] History of Present illness Narrative* Wood Eng MD - 11/10/2021 2:56 PM EDT Maryse Mak [phone] @[facility]@ Wood Eng MD 11/10/21 Room/bed info not [...] 1.1 Final 08/04/2017 0.98 Final Comment: The [employer] recommended therapeutic range for Warfarin (Coumadin) therapy goals: PROPHYLAXIS/TREATMENT of: INR Venous Thrombosis, Pulmonary Embolism 2.0-3.0 Prevention of VTE (Orthopedic Surgery) 2.0-3.0 Atrial Fibrillation 2.0-3.0 Myocardial Infarction 2.0-3.0 Mechanical Prosthetic Heart Valves (Aortic position) 2.0-3.0 Mechanical Prosthetic Heart Valves (Mitral Position) 2.5-3.5 [employer] evidence-based clinical practice guidelines. CHEST. 2012 (9th ed) APTT Date Value Ref Range Status 11/07/2021 80 (H) 23 - 34 seconds Final Albumin Date Value Ref Range Status 11/07/2021 3.2 3.2 - 5.2 g/dL Final ] Problem List Items Addressed This Visit None documented in this [id number] Evaluation + Plan note* Assessment & Plan Note - Jeremy Segovia MD - 10/30/2021 10:20 AM EDT Associated Problem(s): CAD (coronary artery disease) New onset of class III angina status post ER visit. [id number] Miscellaneous Notes* Assessment & Plan Note - Jeremy Segovia MD - 10/30/2021 10:20 AM EDTAssociated Problem(s): CAD (coronary artery disease) New onset of class III angina status post ER visit. documented in this [id number] History of Present illness Narrative* Jeremy Segovia MD - 10/30/2021 10:16 AM EDT [facility] [address] [facility] [address] [facility] [address] Subjective: Maryse Mak is a 66 y.o. male seen in the office today for Chief Complaint Patient presents with Follow-up Intermittent chest pain & Sob w/ exertion ED [facility] 10/21/21 -sharp/ tightness center of chest and between shoulder blades, last episode last night while smoking, lasting a few minutes comes and goes Patient comes in following up on a recent emergency room visit at [facility]. [facility] [place] Had chest discomfort was concerned enough [...] Neurological: Negative for dizziness. documented in this [id number] Instructions* Patient Instructions* Izabella Florence RN - 10/30/2021 8:06 AM EDT How to Contact your Care Team: Provider: Dr. Jeremy Segovia MD Narrow Gauge Engineer: Izabella Floernce RN REFILLS: When in need for refills please call your care team or the office at [phone]. Please include medication name, pharmacy name, and specify 30-day or 90-day supply. Please check with your pharmacy within 24 hours of request for your refill. You must follow up as directed to continue current refills. Thank you! Heart Catheterization Date and Time of your procedure Wednesday11-07-21 at 10:00 a.m. Please arrive at [facility] and check in at the Outpatient Registration [...] questions or concerns please contact us at [phone]. documented in this [id number] Hospital Discharge instructions * Instructions* Gregory Corbin, - 10/21/2021 Follow-up with your refresh technician the next few days. Return to the emergency department if symptoms get worse. * Attachments The following attachments cannot be sent through Care Everywhere. * Chest Pain (Lebanese) documented in this [facility] Work Phone: 1(570) 663-935103-15-2022 Evaluation + Plan note Future Scheduled Tests Laboratory* Basic Metabolic Panel 07/29/21 * Lipid Panel 07/29/21 [facility] 11-22-2021 Miscellaneous Notes* Assessment & Plan [...] is hospitalized probably around October 2020 in [facility] with low potassium.Apparently prior to the lisinopril. Also had a nuclear stress test at that time good exercise capacity. Negative for any ischemia normal perfusion with reported attenuation artifact. No evidence of MT no evidence of inducible ischemia. Printed from [...] on this assessment today. documented in this [id number] Instructions* Patient Instructions* Tia William MA - 04/07/2021 9:00 AM EST How to Contact your Care Team: Provider: Dr. Jeremy Segovia MD Narrow Gauge Engineer: Mar Godinez RN REFILLS: When in need for refills please call your care team or the office at [phone]. Please include medication name, pharmacy name, and specify 30-day or 90-day supply. Please check with your pharmacy within 24 hours of request for your refill. You must follow up as directed to continue current refills. Thank you! documented in this [id number] History of Present illness Narrative* Jeremy Segovia MD - 04/07/2021 8:59 AM EST [facility] [address] [facility] [address] [facility] [address] Subjective: Maryse Mak is a 66 y.o. [...] is hospitalized probably around October 2020 in [facility] with low potassium.Apparently prior to the lisinopril. Also had a nuclear stress test at that time good exercise capacity. Negative for any ischemia normal perfusion with reported attenuation artifact. No evidence of MT no evidence of inducible ischemia. Printed from [...] Neurological: Positive for dizziness. documented in this [id number] History of Present illness Narrative* Mariela Morgan MD - 03/17/2021 2:37 PM EDT [facility] [address] [facility] [address] [facility] [id number] Maryse Mak is a 66 y.o. male [...] 04/14/2021). Mariela Morgan MD documented in this [id number] Miscellaneous Notes* Assessment & Plan Note - [...] fatty and processed foods. documented in this [id number] Instructions* Patient Instructions* Gail Garduno CNP - [...] can be obtained at your earliest convenienceat [facility] ([address] [place], [place] [address]on Ave) or at the Medical Office Building next to [facility] on [facility]. The orders are on the computer and no paper requisitions are required. If you prefer to have your blood work drawn at a non [facility] lab, please request a lab order form to be printed for you to take with you. Once labs are completed please allow a few days for us to receive the results, review them, and letyou know what steps, if any, are needed next. I will review your labs via [place] or the office will call with your results. If you haven't heard from us within 3 or 4 days please call to inquire. -If labs were ordered to be done PRIOR to your next visit we will discuss the results at the time of your office visit. documented in this [id number] History of Present illness Narrative* Gail Garduno CNP - 09/30/2020 9:00 AM EDT Patient: Maryse Mak : 1955 Date: 09/30/20 This 65 y.o. male presents for [facility] Care, Throat (Did testing [facility] he thinks), and Cough (starte 3 months ago) Subjective Maryse is a 65 y.o. male who presents to [facility] after moving back to [facility] from [place]. Patient Active Problem List Diagnosis Complete tear [...] Illness: Currently living locally with son and [id number] States had completed a 48 day teen challenge in JunJuly 2020 and has not used alcohol or drugs. has stopped smoking. Denies problems with mood, stating everyone just wants to put me on medications. 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 Presents to establish and 'wants something done about my throat' [...] -- Reports had been receiving care at [facility] in [place]. Was seeing Dr. Alarcon at [facility] prior to that time with last office visit with Dr. Alarcon 04/2020. -- Reports recent CT scan in [place] at [facility]. Was treated for pneumonia in Apr 2020 and states that has resolved. Reports he quit smoking ~ 4 months ago. History of 1 - 1/2 ppd for ~ 50 years. was given an inhaler in August that he uses 'occasionally'. [facility] was given for COPD, stateshe has not been diagnosed with COPD though does report chronic cough for years. Will order PFT / consider referral to pulmonology Reports had a CT chest 09/17/20 at [facility] in [place]. Results:1. Bronchial wall thickening suggestive of bronchitis. [...] Social Gatherings with Friends and Family: Attends Yazidism Services: Active Member of Clubs or Organizations: [...] can be obtained at your earliest [facility] ([address]) or at the Medical Office Building next to [facility] on [address] The orders are on the computer and no paper requisitions are required. If you prefer to have your blood work drawn at a non [facility] lab, please request a lab order form to be printed for you to take with you. Once labs are completed please allow a few days for us to receive the results, review them, and letyou know what steps, if any, are needed next. I will review your labs via [place] or the office will call with your [...] effects of the medications. Goals None Gail Garduno CNP Depression Screening 06/19/2019 09/30/2020 Little interest or [...] Not difficult at all documented in this encounterOhioHealthEvaluation + Plan note Future Appointments Appointment Date:07/21/2022 01:00:00 PM Scheduled Provider:Paulette CARBALLO CNP Location:[facility] Appointment Type: Open Future Scheduled Tests Laboratory* Basic Metabolic Panel 07/29/21 * Lipid Panel 07/29/21 [facility] Evaluation + Plan note Future Appointments Appointment Date:07/13/2022 11:00:00 AM Scheduled Provider:Paulette CARBALLO CNP Location:[facility] Appointment Type: Open Appointment Date:07/21/2022 01:00:00 PM Scheduled Provider:Paulette CARBALLO CNP Location:[facility] Appointment Type: Open Future Scheduled Tests Laboratory* Basic Metabolic Panel 07/29/21 * Lipid Panel 07/29/21 [facility] Evaluation + Plan note Future Appointments Appointment Date:01/11/2023 11:00:00 AM Scheduled Provider:Paulette CARBALLO CNP Location:[facility] Appointment Type: Open Future Scheduled Tests Laboratory* Basic Metabolic Panel 07/29/21 * Lipid Panel 07/29/21 [facility] Evaluation + Plan note Future Appointments Appointment Date:03/03/2023 02:00:00 PM Scheduled Provider: Location:[facility] Appointment Type:FM Medicare Wellness Subsequent Appointment Date:07/14/2023 10:40:00 AM Scheduled Provider:Paulette CARBALLO CNP Location:[facility] Appointment Type: Open [facility] Evaluation + Plan note Future Appointments Appointment Date:07/14/2023 10:40:00 AM Scheduled Provider:Paulette CARBALLO CNP Location:[facility] Appointment Type: Open [facility] Evaluation + Plan note Future Appointments Appointment Date:10/28/2023 02:20:00 PM Scheduled Provider:Paulette CARBALLO CNP Location:[facility] Appointment Type:[facility] evaluation + Plan note Future Appointments Appointment Date:11/25/2023 03:00:00 PM Scheduled Provider:Paulette CARBALLO CNP Location:[facility] Appointment Type:[facility] evaluation + Plan note Future Appointments Appointment Date:12/09/2023 03:00:00 PM Scheduled Provider:Paulette CARBALLO CNP Location:[facility] Appointment Type:[facility] evaluation + Plan note Future Appointments Appointment Date:01/25/2025 02:20:00 PM Scheduled Provider:Wendy Walker Location:[facility] Appointment Type:[facility] evaluation note* Diagnosis Essential hypertension- Primary Unspecified essential [...] unspecified type- Primary documented [facility] this encounter [facility] Work Phone: evaluation note* Diagnosis Angina, class III (HCC)- Primary Other and unspecified angina pectoris Coronary artery disease, unspecified vessel or lesion type, unspecified whether angina present, unspecified whether [place] or transplanted heart Angina, class III (HCC) Other and unspecified angina pectoris [facility] Diagnosis Chest discomfort- Primary Other chest pain Coronary artery disease due to lipid rich plaque Angina, class III (HCC) Other and unspecified angina pectoris Coronary artery disease, unspecified vessel or lesion type, unspecified whether angina present, unspecified whether [place] or transplanted heart CAD (coronary artery disease) Coronary atherosclerosis of unspecified type of vessel, [place] or graft Angina, class III (HCC) Other and unspecified angina pectoris Coronary artery disease, unspecified vessel or lesion type, unspecified whether angina present, unspecified whether [place] or transplanted heart [facility]* Diagnosis Coronary artery disease of [place] artery of [place] heart with stable angina pectoris ([facility])- Primary [facility]* Diagnosis Coronary artery disease of [place] artery of [place] heart with stable angina pectoris ([facility])- Primary PAD (peripheral artery disease) ([facility]) Unspecified peripheral vascular disease [facility] Diagnosis Coronary artery disease of [place] artery of [place] heart with stable angina pectoris ([facility]) PAD (peripheral artery disease) ([facility]) Unspecified peripheral vascular disease [facility]* Diagnosis S/P CABG (coronary artery bypass graft)- Primary Postsurgical aortocoronary bypass status [facility]* Diagnosis S/P CABG (coronary artery bypass graft)- Primary Postsurgical aortocoronary bypass status [facility]* Diagnosis S/P CABG (coronary artery bypass graft)- Primary Postsurgical aortocoronary bypass status [facility]* Diagnosis S/P CABG x 2- Primary Postsurgical aortocoronary bypass status [facility]* Diagnosis S/P CABG x 2- Primary Postsurgical aortocoronary bypass status [facility]* Diagnosis S/P CABG x 2 Postsurgical aortocoronary bypass status [facility]* Diagnosis Tobacco abuse- Primary Tobacco use disorder Atrial fibrillation, unspecified type (HCC) Hypervolemia, unspecified hypervolemia type Benign essential HTN Hyperlipidemia, unspecified hyperlipidemia type Coronary artery disease involving [place] coronary artery of [place] heart, unspecified whether angina present S/P CABG (coronary artery bypass graft) Postsurgical aortocoronary bypass status [facility]* Diagnosis Tobacco abuse- Primary Tobacco use disorder Atrial fibrillation, unspecified type (HCC) Hypervolemia, unspecified hypervolemia type Benign essential HTN Hyperlipidemia, unspecified hyperlipidemia type Coronary artery disease involving [place] coronary artery of [place] heart, unspecified whether angina present S/P CABG (coronary artery bypass graft) Postsurgical aortocoronary bypass status [facility]* Diagnosis Tobacco abuse- Primary Tobacco use disorder Atrial fibrillation, unspecified type (HCC) Hypervolemia, unspecified hypervolemia type Benign essential HTN Hyperlipidemia, unspecified hyperlipidemia type Coronary artery disease involving [place] coronary artery of [place] heart, unspecified whether angina present S/P CABG (coronary artery bypass graft) Postsurgical aortocoronary bypass status [facility]* Diagnosis S/P CABG (coronary artery bypass graft)- Primary Postsurgical aortocoronary bypass status [facility]* Diagnosis S/P CABG (coronary artery bypass graft)- Primary Postsurgical aortocoronary bypass status [facility] Includes: Assessments for all patient encounters No Assessments [facility] Work Phone: Evaluation note* Diagnosis Musculoskeletal chest pain Other chest pain Exertional dyspnea Other dyspnea and respiratory abnormality Essential hypertension Unspecified essential hypertension Pure hypercholesterolemia documented in this encounter [facility] Work Phone: evaluation note* Diagnosis Muscle spasms [...] knee, initial encounter [facility] Diagnosis Primary osteoarthritis of [...] subsequent encounter- Primary [facility]* Diagnosis Pre-procedure lab exam- Primary Pre-procedural laboratory examination [facility]* Diagnosis Primary osteoarthritis of right hip- Primary [facility]* Diagnosis Closed fracture of sternum with nonunion, unspecified portion of sternum, subsequent encounter- Primary Closed fracture of sternum with nonunion, unspecified portion of sternum, subsequent encounter [facility]* Diagnosis Sternal wound dehiscence, subsequent encounter- Primary [facility]* Diagnosis Disruption of closure of sternum or sternotomy, subsequent encounter- Primary documented in [facility]* Diagnosis Disruption of closure of sternum or sternotomy, subsequent encounter- Primary documented in [facility]* Diagnosis Disruption of closure of sternum or sternotomy, subsequent encounter- Primary documented in this encounter [facility]* Diagnosis Fluid collection at surgical site, subsequent encounter- Primary [facility]* Diagnosis Fluid collection at surgical site, subsequent encounter- Primary [facility]* Diagnosis Tobacco abuse- Primary Tobacco use disorder Chronic obstructive pulmonary disease, unspecified COPD type (HCC) documented [facility]* Diagnosis Fluid collection at surgical site, subsequent encounter- Primary [facility]* Diagnosis Fluid collection at surgical site, subsequent encounter- Primary documented in [facility]* Diagnosis Fluid collection at surgical site, subsequent encounter [facility]* Diagnosis Disruption of closure of sternum or sternotomy, subsequent encounter- Primary [facility] in [facility]* Diagnosis Disruption of closure of sternum or sternotomy, subsequent encounter- Primary documented in this [facility]* Diagnosis Chest wall pain- Primary Painful respiration COVID-19 virus infection Acute upper respiratory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 Services offered are: Medication Assisted Treatment, Mental Health and Drug and Alcohol Counseling for groups and individuals. Weekend and evening hours available. Individual counseling for trauma, sexual abuse, addiction, depression and anxiety. Processing groups using physical movement (yoga and drumming) and art. Additional groups: #metoo; women's group, 12 step groups, spirituality group, and couples group. Medicaid and most insurances accepted. [place] Locations: [address] [place], [place] [address] Just need to talk, but you are not in crisis? Call the Warmline at [phone] For more information call [phone], email [email or web address] or go to www.[facility].[employer] [facility] Residential: [phone] or Outpatient: [phone] Residential facility provides mental health, substance use, and Juvenile Sex Offender treatment to adolescent boys. Outpatient site provides substance use, mental health and in-home services for adolescents, adults and families. Accredited by The Joint Commission. Medicaid, personal insurances and community or self referrals are accepted. [place] Locations: [address] [place] [address], [address] [place], [place] [address] [place], [place] [address] [facility] [phone] An [facility] certified drug and alcohol treatment program that provides concurrent intensive counseling services within safe and secure housing for adult men and women. The majority of clients are court referred/ordered; butprivate pay individuals are accepted. We accept Medicaid and self-pay. No insurances accepted. [place] Location: [address] [place], [place] [address] [facility]/[employer] [phone] The [place] Office offers treatment foster care in addition to outpatient counseling and psychiatric services. The focus of treatment is trauma specific in addition to treating all other mental health diagnosis. [place] Location: [address] [place] [address] [facility] [phone] Secure Residential Treatment Facility for males and females ages 11 to 18. We offer treatment for mental health, addiction, survivors of human trafficking, teens, and self-injurious behavior. We accept all insurances. We accept agency and parental referrals. [place] Location: [address] [place], [place] [address] [facility] [place] [phone] Non-profit Providing access to high-quality comprehensive home health care to promote health, independence and dignity to those living within the communities we live and serve. Services include behavioral health, longterm care, physical and occupational therapy, speech therapy, home care aides and private duty services. Call us 07/12 at [phone] to request services or for more information. [place] Location: [address] [address] [facility] [phone] Outpatient counseling, medication management, and psychological testing. Accepting CareSource and private insurance. Selfreferral. [place] Location: [address] [place], [place] [address] [employer] [phone] A biblically based, Pavan-centered recovery program, designed to rescue, recover, and restore those in addictive behaviors with the power of the hidden life found only in Anthony Browne. RU is an addiction recovery class that started in [place], [place], and offers residential help for addicted men and women that has now expanded into churches, prisons, and online resources across [facility] and around the world. [place] Location: [address] [place] [address] [facility] [phone] or 3820 Provide guidance on treatment options for those struggling with addictions and life-controlling problems. We change our community by supporting individuals and their families for a healthy life of recovery. Scholarshipsfor ruth-based programs are available. Project beSUCCESS [phone] Ruth based Family and recovery advocates. We hold a Recovery Road service every Wednesday at 6:30 @ [facility] [address] We have a 07/12 Advocate line [phone] that helps with treatment options and support from those that have personal experience with overcoming addiction or family members that are struggling emotionally. Find us on Facebook @ [email or web address] PSYCHIATRISTS Dr. Alan Byrnes Office [phone] [address], [place] [address] Dr. Micah Hernandes Office [phone] [address] [place] [address] Dr Sheree Whittaker [address], [place] [address] Dr Dav Cardenas [[address] [place] [address]] [address] [place] [address] [facility] [address] [place] [address] Visit Website Services: [place]: to provide life-sustaining services to the homeless and empower them to become contributing members of their community. Emergency mcc: 20,565 nights of lodging Meals: 61,695 Clients Served: 702 Rent assistance program Job training program [facility] Jessica [facility] [address] [place] [address] Services: Reaching the homeless, the mcc serves transient or local individuals and families. Residents are given case management, counseling and material assistance Hours: 24 hours a day, 365 days a year Eligibility: No admission to anyone under 18 without a guardian; Does not accept sex offenders; Must not be under the influence of alcohol or drugs at time of check-in. Additional Services: Homeless Alf For Families, Homeless Alf For Single Adults Documents To Bring: Photo I.D.; Parents or guardians bringing children to the mcc must show proof of legal guardianship. [employer]ius is one percent inspiration and 99 percent perspiration. -- Abigail Del Rosario Community Action Commission [facility] [address] [place] [address] Services: Provides housing for homeless individuals, couples, and families. Housing is provided in furnished apartments located in a number of different communities. Families will be housed together. Hours: M-F: 8:00am-4:30pm for intake. Alf: 24 hrs a day, 7 days a week Eligibility: Residents of [facility] [facility] and [facility] who are homeless. Prioritizes families with children. Additional Services: Homeless Alf For Couples, Homeless Alf For Families, Homeless Alf For Single Adults Documents To Bring: Proof of homelessness: agency referral, [place] letter, eviction notice, statement from [facility] or other people clients had been living with. In this game, by trying to win; you automatically lose. -- Ann Viveros [facility] [employer] [facility] [employer] [place] [address] [facility] [address] [place] [address] Services: Provides housing for homeless individuals, couples, and families. Housing is provided in furnished apartments located in a number of different communities. Families will be housed together. Hours: M-F: 8:00am-4:30pm for intake. Alf: 24 hrs a day, 7 days a week Eligibility: Residents of [facility] and [facility] who are homeless. Prioritizes families with children. Additional Services: Homeless Alf For Couples, Homeless Alf For Families, Homeless Alf For Single Adults Documents To Bring: Proof of homelessness: agency referral, [place] letter, eviction notice, statement from landlord or other people clients had been living with. Appreciative words are the most powerful force for good on earth! -- Ariel Jimenez Of [employer] [address] [place] [address] Services: Offers a 100-bed dormitory for homeless men who would otherwise spend their nights on the streets. Assists clients with clothing, food, laundry, showers, information and referral, Orthodoxy counseling, and finding employment. In addition, offers education regarding health and nutrition, parenting, GED study, and computer literacy. Drug screening and referral available for those in recovery. Hours: 24 hours a day, 7 days a week Eligibility: Serves adult males. Additional Services: Homeless Alf For Single Adults Documents To Bring: None Remember that happiness is a way of travel, not a destination. -- Pastor [employer] [address] [place] [address] Services: Provides short term mcc up to 30 days for women and [...] sober during their stay. Additional Services: Homeless Alf For Families, Homeless Alf For Single Adults Documents To Bring: None Life is not a static thing. The only people who do not change their minds are incompetents in asylums who can't and those in cemeteries. -- Mohamud Jimenez Of [facility] [address] [place] [address] Services: Provides emergency mcc to single women (15 beds) and women with minor children (54 beds). On site meals, clothing, limited medical care, pastoral counseling (Orthodoxy oriented), educational classes, case management and advocacy are provided. Individuals may stay up to 5 days, longer arrangements can be made with the gearcase assembler or social media executive. Also offers parenting classes, Bible Class, nutrition, health issues, GED acquisition, phonics, computer literacy, art therapy, group and recovery programs. Hours: 24 hrs a day/ 7 days a week. Length of stay is generally five days, but longer arrangements may be made with approval of gearcase assembler or social media executive. Eligibility: Serves adult women age 18 and older and women with custody of minor children. Age limits for minor children: boys through age 11; no age limit for girls. Boys over age 11 will be placed in the [facility] [place] Program. Will not accept sex-offenders. Additional Services: Homeless Alf For Families, Homeless Alf For Single Adults Documents To Bring: None The secret of success is learning how to use pain and pleasure instead of having pain and pleasure use you. If you do that, you're in control of your life. If you don't, life controls you. -- Isaak Jimenez Of [facility] [address] [place] [address] Services: Provides emergency mcc to men. On site meals, clothing, limited medical care, pastoral counseling (Orthodoxy oriented), educational classes, case management and advocacy are provided. Individualsmay stay up to 5 days, longer arrangements can be made with the gearcase assembler or social media executive. Alsooffers parenting classes, Bible Class, nutrition, health issues, GED acquisition, phonics, computerliteracy, art therapy, group and recovery programs. Hours: 24 hrs a day/ 7 days a week. Length of stay is generally five days, but longer arrangements may be made with approval of gearcase assembler or social media executive. Eligibility: Homeless men age 18 and older. Will not accept sex-offenders. Additional Services: Homeless Alf For Single Adults Documents To Bring: None We must all suffer one of two things: the pain of discipline or the pain of regret or disappointment. -- Nicole [facility] [address] [place] [address] Services: Provides emergency mcc (23 beds) and support services to men, [...] Must live or plan to relocate in [facility]. Must be sober, not actively psychotic, suicidal, or homicidal. Must not have active warrants out for an arrest; and not have a violent criminal history. Can not serve sex-offenders. Additional Services: Homeless Alf For Families, Homeless Alf For Single Adults Documents To Bring: None [employer] [facility] Alf [place], [place] Address: [address] [place] [address] [facility] Alf [place], [place] Address: [place] [address] Alf open during months March-August [place], [place] Address: [place] [address] [address]ides [address] [facility] Address: [address] [place] [address] Provides: Emergency Housing ??For over [address] [facility] has accepted and been blessed by hundreds if not thousands of menwho are in need of a hand in reorganizing there personal affairs, we offer housing, guidance, prayer and friendship. We are currently the only mcc program in a [facility] area that will houseconvicted [...] Toll-free: Crisis Text Line text HOME to [phone] documented in this encounter* Attachments The following attachments cannot be sent through Care Everywhere. * Hip Arthritis (Lebanese) documented in this encounter* Instructions* Chema Webber MD - 04/22/2020 Return to ED if any concerns arise. * Attachments The following attachments cannot be sent through Care Everywhere. * Pneumonia (Lebanese) * Hypertension (Lebanese) documented in this encounter* Attachments The following attachments cannot be sent through Care Everywhere. * Poison Angi - [place] - and [place] (Lebanese) * Dermatitis (Lebanese) documented in this encounter* Instructions* Brad Dowd [...] sent through Care Everywhere. * Tooth Decay (Lebanese) documented in this encounter* Attachments The following attachments cannot be sent through Care Everywhere. * Headache (Lebanese) * Hypertension: General Info (Lebanese) documented in this encounter* Instructions* Joey Yoder [...] ETOH abuse. He was inpatient at a [facility] at the time of the ER visit for 48 days and had resumed his BP medications while there. He presented for the complaints of headache. BP on arrival was 183/123. A CT of the head and CXR were obtained and negative for acute findings. 12-lead EKG showed SB rate 40-50 bpm. Labs were unremarkable. He was given amlodipine and discharged to [facility] with referral for PCP. He saw a [...] Folate and B12: No results found for: [id number], No results found for: FOLATE Thyroid Studies: No results found for: TSH, E8TILVF, U5SCPIT, THYROIDAB Urinalysis: No results found for: NITRU, [...] Your Medications These medications were sent to [facility] [address] - P [phone] - F [phone] [address] [facility] [address] hydrALAZINE 25 MG tablet potassium chloride 10 MEQ extended release tablet Time Spent on discharge is more than 35 minutes in the examination, evaluation, counseling and review of medications and discharge plan. +++++++++++++++++++++++++++++++++++++++++++++++++ Sound Physician - Hospitalist Julien Celis [place], [place] +++++++++++++++++++++++++++++++++++++++++++++++++ NOTE: This report was transcribed using voice recognition software. Every effort was made to ensureaccuracy; however, inadvertent computerized controlled area checker errors may be present. documented in this encounter Physical Exam Physical Exam not supported for this document type No Physical Exam Recorded Chief Complaint and Reason for Visit Chief Complaint Admit Date HTN January 28, 2025 4:45pm Additional Source Comments Assessment & Plan Note - Rolando Constantino MD - 10/28/2017 5:20 PM EDTAssessment & Plan Note - Rolando Constantino MD - 10/28/2017 5:20 PM [facility] Judi Joshua RN - 06/25/2019 7:56 AM EST Miscellaneous [...] Complete tear of rotator cuff 09/12/2015 Diagnosis Townsend I: See current hospital problem list Townsend II: Deferred Townsend III: Patient Active Problem List Diagnosis Date [...] 11/06/2015 Complete tear of rotator cuff 09/12/2015 Townsend IV: housing problems, other psychosocial or environmental problems, problems related to legal system/crime, problems related to social environment and problems with primary support group Townsend V: 41-50 serious symptoms Expected Discharge Date: ELOS: 2-3days Precautions Precautions: Suicide Patient Presenting Issues: Patient's Primary Presenting Issue Patient's Primary Presenting Issue: Suicidal Suicidal Symptoms: Ideation Suicidal Goals: elimination of suicidal thinking Days To Improvement Of Goal: 3-5 Suicidal Treatment Interventions: Medication management/evaluation, Medication education, Group psychoeduction, Handouts psychoeducation, CIWA (Clinical [place] Withdrawal Assessment), Develop personal safety plan, Substance abuse outpatient treatment, Recovery plan Status Of Goal: Unchanged Patient's Secondary Presenting Issue Patient's Secondary Presenting Issue: Addiction Addiction Types: Alcohol, Cocaine Addiction Treatment Goals: cessation of use Days To Improvement Of Goal: 3-5 Addiction Interventions: Medication management/evaluation, CIWA (Clinical [place] Withdrawal Assessment), Substance abuse education, Substance abuse [...] Discharge Needs Anticipated Facility Type: Outpatient clinic, Community resource information, Alf, Community mental health, Substance abuse treatment Criteria For Discharge Criteria For Discharge: Maximum benefit obtained, Goals met Additional Comments: Patient has been compliant with meds but not yet attending group therapies. He is aware of multiple stressors that he must resolve once he leaves the unit and is willing to work with treatment providers at [facility] to resolve these stressors. He is hopeful for a step down bed on the crisis unit to assist in this process. Physician, Registered Nurse, Fish Culturist, Adjunct Therapist included in treatment team discussion. Treatment team members present : Dr. Egan, STEPHANIE Kim, and SG Willett Patient Signature Date Patient's Response To Treatment Plan: Fish Culturist Signature Date Problem: Pain Goal: Manage acute [...] Addressed Problem: Pain Goal: Manage acute pain 06/21/2019 1247 by Gail Quinn RN Outcome: Partially Met 06/21/2019 124 by Gail Quinn RN Outcome: Partially Met Goal: Manage chronic pain 06/21/2019 124 by Gail Quinn RN Outcome: Partially Met 06/21/2019 124 by Gail Quinn RN Outcome: Partially Met Goal: Reduced pain sensation 06/21/2019 124 by Gail Quinn RN Outcome: Partially Met 06/21/2019 124 by Gail Quinn RN Outcome: Partially Met Goal: Achievement of comfort function goal 06/21/2019 1247 by Gail Quinn RN Outcome: Partially Met 06/21/2019 124 by Gail Quinn RN Outcome: Partially Met Problem: Suicide - Risk of Goal: Able to control suicidal impulse 06/21/2019 124 by Gail Quinn RN Outcome: Partially Met 06/21/2019 124 by Gail Quinn RN Outcome: Partially Met Goal: Absence of self-harm 06/21/2019 1247 by Gail Quinn RN Outcome: Partially Met 06/21/20191246 by Gail Quinn RN Outcome: Partially Met Goal: Decrease in suicidal ideation 06/21/20191246 by Gail Quinn RN Outcome: Partially [...] by Gail Quinn RN Outcome: Partially Met 06/21/20197 by Gail Quinn RN Outcome: Partially Met [...] therapies Check on availability of beds at [facility] Crisis so he can transition into [facility] Discharge when safe plan is in effect [facility] Behavioral Health Inpatient Social Work Psychosocial Assessment Date: 06/20/2019 Time: 12:41 PM Patient Name: Maryse Mak Date of : 1955 Sex: Male Admit Date/Time: 06/18/2019 2:37 PM CURRENT HOSPITALIZATION: Current Hospitalization Assistant Associate Professor Needs: Not needed Chief Complaint: SI and HI; voices telling me to kill myself and others; since being off meds for pasts 4-5 days History of Current Hospitalization : History of Present Illness per Ed assessment: Pt has a history of anxiety; depression; mood swing; substance abuse. Hx of linkage with [facility]. No currently linkage. Recent hospitalizations 04/17/19 at [place] following similiar presentation (UDS + for cocaine). Pt self reports 7-8 inpatient hospitalizations. Records from [facility] indicate pt reported 2 at that time (MH 2017 and 1x a [place]). Pt denied hx of suicide attempts to this clinician. Reported to clinician in [facility] that he had multiple: OD; Cut wrists in 2017; jumped off an overpass onto a semi); Denied SIB to this clinician; reported cutting to clinician in [facility]. Hx of substance abuse and treatment. None [...] P.O; awaiting court hearing for wreckless operation) CHRISTIAN/SPIRITUAL BELIEFS: Buddhist/Spiritual Beliefs Buddhist/Spiritual Beliefs: Yes Yes: believes; non practicing ETHNIC/RACE: [...] of Collateral Provider: Misty, but tells this secretary of state no one PATIENT GOALS FOR TREATMENT: Patient [...] been homeless for past month after leaving son, Heriberto's home. Pt states, We fight too much. [...] here he 'forgot to follow up with [employer] when he was instructed to do so. Education provided on AOD resources; declined printed resources. D/c plan; lives in car; couch surfing Follow up with [facility] for OP MH and AOD services. [...] frustration, I need to get back to rastafarian, my girlfriend is in [place], she wants me to move there sometime [...] Shared he talks to his girlfriend in [place] on occasion. STRENGTHS: I don't really have [...] Date: 06/19/2019 Time: 3:18 PM Patient Name: Maryse Mak Date of [...] Complete tear of rotator cuff 09/12/2015 Diagnosis Townsend I: Alcohol Abuse, Substance Induced Mood Disorder and Cocaine abuse Townsend II: Cluster B Traits Townsend III: Patient Active Problem List Diagnosis Date [...] 11/06/2015 Complete tear of rotator cuff 09/12/2015 Townsend IV: housing problems and occupational problems Townsend V: 41-50 serious symptoms Reason for Hospitalization [...] education, Group psychoeduction, Handouts psychoeducation, CIWA (Clinical [place] Withdrawal Assessment), Develop personal safety plan, Substance abuse outpatient treatment, Recovery plan Status Of Goal: Unchanged Patient's Secondary Presenting Issue Patient's Secondary Presenting Issue: Addiction Addiction Types: Alcohol, Cocaine Addiction Treatment Goals: cessation of use Days To Improvement Of Goal: 3-5 Addiction Interventions: Medication management/evaluation, CIWA (Clinical [place] Withdrawal Assessment), Substance abuse education, Substance abuse [...] Discharge Needs Anticipated Facility Type: Outpatient clinic, Community resource information, Alf, Community mental health, Substance abuse treatment Criteria For Discharge Criteria For Discharge: Maximum benefit obtained, Goals met Physician, Registered Nurse, Fish Culturist, Adjunct Therapist included in treatment team discussion. [...] : 1955 Sex: 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 Caller Information: Tasha Lobito Referral Source: [facility] Diagnosis: Depression Presenting Problem/Chief Complaint: [id number] with plan ot overdose Medical Status: Stable [...] off medications as missed an appointment at [facility] and has not taken medications for 6 days. Pt repots feels could kill someone else if provoked, denies any specific person. Dr Egan orders admission to . Spoke with SG Kumar Clinical Lead on U and Pt will go to room 3300. [...] section and content) DATE CREATED AUTHOR 11/08/2017 [facility] DATE CREATED AUTHOR AUTHOR'S ORGANIZ ATION 07/05/2018 [facility] DATE CREATED AUTHOR AUTHOR'S ORGANIZ ATION 09/14/2020 [facility] DATE CREATED AUTHOR AUTHOR'S ORGANIZ ATION 10/22/2021 [facility] pital DATE CREATED AUTHOR AUTHOR'S ORGANIZ ATION 02/17/2022 [facility] Center DATE CREATED AUTHOR AUTHOR'S ORGANIZ ATION 03/23/2022 [facility] DATE CREATED AUTHOR AUTHOR'S ORGANIZ ATION 05/08/2022 [facility] ical Center DATE CREATED AUTHOR AUTHOR'S ORGANIZ ATION 08/17/2022 [facility] DATE CREATED AUTHOR AUTHOR'S ORGANIZ ATION 01/25/2023 [facility] DATE CREATED AUTHOR AUTHOR'S ORGANIZ ATION 04/26/2023 [facility] spital DATE CREATED AUTHOR AUTHOR'S ORGANIZ ATION 04/29/2023 [facility] DATE CREATED AUTHOR AUTHOR'S ORGANIZ ATION 10/30/2023 [facility] DATE CREATED AUTHOR AUTHOR'S ORGANIZ ATION 11/30/2023 [facility] DATE CREATED AUTHOR AUTHOR'S ORGANIZ ATION 07/19/2024 [facility] ospital DATE CREATED AUTHOR AUTHOR'S ORGANIZ ATION 08/21/2024 [facility] DATE CREATED AUTHOR AUTHOR'S ORGANIZ ATION 09/08/2024 [facility] DATE CREATED AUTHOR AUTHOR'S ORGANIZ ATION 09/11/2024 [facility] DATE CREATED AUTHOR AUTHOR'S ORGANIZ ATION 09/12/2024 [facility] DATE CREATED AUTHOR AUTHOR'S ORGANIZ ATION 09/13/2024 [facility] DATE CREATED AUTHOR AUTHOR'S ORGANIZ ATION 01/24/2025 [facility] DATE CREATED AUTHOR AUTHOR'S ORGANIZ ATION 01/27/2025 [facility] DATE CREATED AUTHOR AUTHOR'S ORGANIZ ATION 2025 [facility] DATE CREATED AUTHOR AUTHOR'S ORGANIZ ATION 02/07/2025 [facility] Reason for Visit (unrecogniz ed section and [...] test only, exercise Rolando Constantino MD [address] [place] [address] Reason Comments Transition Of Care 3rd attempt Reason Comments Facial Swelling Reason Comments Psychiatric Evaluation Status Reason Specialty Diagnoses / Procedures Referre d By Contact Referred To Contact Diagnoses Current mild episode of major depressive disorder, unspecified whether recurrent ([facility]) Reason Comments Hip Pain Right hip pain [...] To Contact Diagnoses KP (acute kidney injury) ([facility]) oJey Yoder S, DO [address] [facility] [address] [place] [address] [facility] Reason Comments Establish Care Throat Did testing through one [facility] he thinks Cough starte 3 months ago Reason Onset Date Comments Medication Refill 01/22/2021 Reason Comments Follow-up Pain Reason Onset Date Comments Medication Refill 03/17/2021 Reason Comments Follow-up OVERDUE PER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 General Nurse Practitioner 10/30/21 Jules Bowman MD [address] [place] [address] Surgeon Vascular Surgery 11/12/21 Fisher Scallop Relationship Specialty Start Date End Date Paulette CarballoJAYLEN cuevas [address] [place] [address] PCP - General Nurse Practitioner 10/30/21 Jules Bowman MD [address] [place] [address] Surgeon Vascular Surgery 11/12/21 Fisher Scallop Relationship Specialty Start Date End Date Paulette Carballo JAYLEN Early [address] [place] [address] PCP - General Nurse Practitioner 10/30/21 Jules Bowman MD [address] [place] [address] Surgeon Vascular Surgery 11/12/21 Fisher Scallop Relationship Specialty Start Date End Date Abimael Carballogeorge Early CNP [address] [place] [address] PCP - General Nurse Practitioner 10/30/21 Jules Bowman MD [address] [place] [address] Surgeon Vascular Surgery 11/12/21 Fisher Scallop Relationship Specialty Start Date End Date Abimael Carballogeorge Early CNP [address] [place] [address] PCP - General Nurse Practitioner 10/30/21 Jules Bowman MD [address] [place] [id number] Surgeon Vascular Surgery 11/12/21 Fisher Scallop Relationship Specialty Start Date End Date Paulette Carballo JAYLEN Early [address] [place] [address] PCP - General Nurse Practitioner 10/30/21 Jules Bowman MD [address] [place] [address] Surgeon Vascular Surgery 11/12/21 Fisher Scallop Relationship Specialty Start Date End Date KaitAbimaelgeorge Early CNP [address] [place] [address] 11392 PCP - General Nurse Practitioner 10/30/21 Jules Bowman MD [address] [place] [address] Surgeon Vascular Surgery 11/12/21 Fisher Scallop Relationship Specialty Start Date End Date Paulette Carballo CNP [address] [place] [address] PCP - General Nurse Practitioner 10/30/21 Jules Bowman MD [address] [place] [address] Surgeon Vascular Surgery 11/12/21 Fisher Scallop Relationship Specialty Start Date End Date Paulette Carballo CNP [address] [place] [address] PCP - General Nurse Practitioner 10/30/21 Jules Bowman MD [address] [place], [place] [address] Surgeon Vascular Surgery 11/12/21 Fisher Scallop Relationship Specialty Start Date End Date Paulette Carballo CNP [address] [place] [address] 47991 PCP - General Nurse Practitioner 10/30/21 Jules Bowman MD [address] [place] [address] Surgeon Vascular Surgery 11/12/21 Fisher Scallop Relationship Specialty Start Date End Date Paulette Carballo CNP [address] [place] [address] 17374 PCP - General Nurse Practitioner 10/30/21 Jules Bowman MD [address] [place] [address] Surgeon Vascular Surgery 11/12/21 Fisher Scallop Relationship Specialty Start Date End Date Paulette Carblalo ScarletJAYLEN [address] [place] [address] 8[address]98 PCP - General Nurse Practitioner 10/30/21 Jules Bowman MD [address] [place] [address] Surgeon Vascular Surgery 11/12/21 Fisher Scallop Relationship Specialty Start Date End Date Paulette Carballo JULIA - [facility] [address] [place] [address] PCP - General 10/21/21 Team Status: Active Member Role Status Dates PAULETTE CARBALLO Primary Care Provider Active Team Status: Inactive Member Role Status Dates KAIT CABRERA Primary Care Provider Active Dr. Irene Murillo MD Attending Provider, Referring Pr ovider Active Fisher Scallop Relationship Specialty Start Date End Date Paulette Carballo JAYLEN Early [address] [place] [address]24[address] PCP - General Nurse Practitioner 10/30/21 Jules Bowman MD [address] [place] [address]7924 Surgeon Vascular Surgery 11/12/21 Fisher Scallop Relationship Specialty Start Date End Date Abimael Carballogeorge Early CNP [address] [place] [id number] PCP - General Nurse Practitioner 10/30/21 Jules Bowman MD [address] [place] [address] Surgeon Vascular Surgery 11/12/21 Fisher Scallop Relationship Specialty Start Date End Date Paulette Carballo JAYLEN Early [address] [place] [id number] PCP - General Nurse Practitioner 10/30/21 Jules Bowman MD [address] [place] [address] Surgeon Vascular Surgery 11/12/21 Fisher Scallop Relationship Specialty Start Date End Date Paulette Carballo JAYLEN Early [address] [place] [id number] PCP - General Nurse Practitioner 10/30/21 Jules Bowman MD [address] [place] [address] Surgeon Vascular Surgery 11/12/21 Fisher Scallop Relationship Specialty Start Date End Date Paulette CarballoJAYLEN cuevas [address] [place] [id number] PCP - General Nurse Practitioner 10/30/21 Jules Bowman MD [address] [place] [address] Surgeon Vascular Surgery 11/12/21 Fisher Scallop Relationship Specialty Start Date End Date Paulette Carballo JAYLEN Early [address] [place] [phone] PCP - General Nurse Practitioner 10/30/21 Jules Bowman MD [address] [place] [address] Surgeon Vascular Surgery 11/12/21 Fisher Scallop Relationship Specialty Start Date End Date Paulette Carballo CNP [address] [place] [phone] PCP - General Nurse Practitioner 10/30/21 Jules Bowman MD [address] [place] [address] Surgeon Vascular Surgery 11/12/21 Fisher Scallop Relationship Specialty Start Date End Date Paulette Carballo CNP [address] [place] [phone] PCP - General Nurse Practitioner 10/30/21 Jules Bowman MD [address] [place] [phone] Surgeon Vascular Surgery 11/12/21 Fisher Scallop Relationship Specialty Start Date End Date Sae Jaimes MD [address] [place] [phone] PCP - General Family Medicine 08/11/24 Fisher Scallop Relationship Specialty Start Date End Date Generic Provider, No Assigned [place] [address] 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 09/06/24 Fisher Scallop Relationship Specialty Start Date End Date Rayo Jaimes MD [address] [place] [phone] PCP - General Family Medicine 06/27/24 Jules Bowman MD [address] [place] [address] Surgeon Vascular Surgery 11/12/21 Fisher Scallop Relationship Specialty Start Date End Date Rayo Jaimes MD [address] [place] [phone] PCP - General Family Medicine 06/27/24 Jules Bowman MD [address] [place] [address] Surgeon Vascular Surgery 11/12/21 Fisher Scallop Relationship Specialty Start Date End Date Rayo Jaimes MD [address] [place] [phone] PCP - General Family Medicine 06/27/24 Jules Bowman MD [address] [place] [phone] Surgeon Vascular Surgery 11/12/21 Fisher Scallop Relationship Specialty Start Date End Date Rayo Jaimes MD [address] [place] [id number] PCP - General Family Medicine 06/27/24 Jules Bowman MD [address] [place] [address] Surgeon Vascular Surgery 11/12/21 Fisher Scallop Relationship Specialty Start Date End Date Rayo Jaimes MD [address] [place] [id number] PCP - General Family Medicine 06/27/24 Jules Bowman MD [address] [place] [address] Surgeon Vascular Surgery 11/12/21 Fisher Scallop Relationship Specialty Start Date End Date Rayo Jaimes MD [address] [place] [id number] PCP - General Family Medicine 06/27/24 Jules Bowman MD [address] [place] [address] Surgeon Vascular Surgery 11/12/21 Fisher Scallop Relationship Specialty Start Date End Date Rayo Jaimes MD [address] [place] [phone] PCP - General [facility] Medicine 06/27/24 Jules Bowman MD [address] [place] [address] Surgeon Vascular Surgery 11/12/21 Team Status: Active Member Role/Relationship Status Dates No Primary Care Physician Primary Care Provider Active Team Status: Inactive Member Role/Relationship Status Dates Dr. Darren Bahena MD Emergency Provider Active S tart: January 28, 2025 End: January 28, 2025 No Primary Care Physician Primary Care Provider Active Start: January 28, 2025 End: January 28, 2025 Scheduled Active and Recently Administ ered Medications [...] Tamera Leonard RN) Scheduled Medication Order 08/09/2024 08/10/2024 08/11/2024 ketorolac (Toradol) injection 15 mg (COMPLETED) 15 [...] Montoya RN) 0810 (Given - Provider: Xochilt Montoya, SG) atorvastatin (LIPITOR) tablet 40 mg 40 mg, Oral, Daily, First dose on Wed09/07/24 at 0900 0839 (Given - Provider: Hari Mitchell RN) 0830 (Given - Provider: Xochilt Montoya RN) 0810 (Given - Provider: Xochilt Montoya RN) cefTRIAXone (ROCEPHIN) IVPB 2 g (premix) 2,000 mg, Intravenous, at 100 mL/hr, Every 24 hours, First dose on Wed09/06/24 at 2200, Indication: Other (specify), Indication: Skin/soft tissue infection 2241 (New Bag - Provider: Sis Cedillo RN) 2217 (New Bag - Provider: Sis Cedillo RN) [...] Sis Cedillo RN)1331 (Given - Provider: Xochilt Montoya, SG)2218 (Given - Provider: Sis Cedillo RN) 0539 (Given - Provider: Sis Cedillo RN)1316 (Given - Provider: Xochilt Montoya RN) NIFEdipine 24 hr tablet 30 mg 30 mg, Oral, Daily, First dose on Wed09/07/24 at 0900, Hold for SBP<100 DO NOT CRUSH OR CHEW. 0839 (Given - Provider: Hari Mitchell RN) 0829 (Given - Provider: Xochilt Montoya RN) 0811 (Given - Provider: Xochilt Montoya, SG) polyethylene glycol (MIRALAX) powder 17 g 17 g, Oral, Daily, First dose on Wed09/08/24 at 1230 0839 (Given - Provider: Hari Mitchell RN) 0829 (Given - Provider: Xochilt Montoya, SG) 0810 (Given - Provider: Xochilt Montoya RN) [...] Saline lock 0600 (Canceled Entry - Provider: Keilara Manjula, RN)1455 (Given - Provider: Hari Mitchell RN)2200 [...] Sis Cedillo RN)0356 (Given - Provider: Jonny Fields RN)0810 (Given - Provider: Xochilt Montoya RN)1630 (Given - Provider: Xochilt Montoya RN) calcium carbonate (TUMS) chewable tablet 500 mg 500 mg, Oral, 2 times daily PRN, indigestion, heartburn, Starting on 09/09/24 at 0134, Give with Food 0138 (Given - Provider: Jonny Fields RN) HYDROmorphone (DILAUDID) injection 0.25-0.5 mg (CANCELED) 0.25-0.5 mg, Intravenous, Every 3 hours PRN (may repeat), moderate to severe pain, Starting on 09/06/24 at 2021, Initiate with 0.25 mg IV [...] call physician. 0632 (Given - Provider: Kacie Fair, RN)1227 (Given - Provider: Hari Mitchell, RN)1706 (Given - Provider: Maribel Roman, RN)2239 (Given - Provider: Sis Cedillo, RN) 0728 (Given - Provider: Sis Cedillo, RN)1123 (Given - Provider: Xochilt Montoya, RN)1712 (Given - Provider: Brittany Gaffney, RN)2225 (Given - Provider: Sis Cedillo, RN) 0356 (Given - Provider: Jonny Fields, SG)0810 (Given - Provider: Xochilt Montoya, SG)1630 (Given [...] 6 hours PRN, nausea, vomiting, Starting on Wed09/06/242021, Use oral route first, if tolerated. Goals (unrecognized section and content) Goals may be documented in a n alternate section Source Comments (unrecognize d section and content) In the event this informatio n is protected by the Federal Confidentiality of Alcohol and Drug Abuse Patient Records regulations: The Federal rules restrict any use of the information to criminally investigate or prosecute any alcohol or drug abuse patient.[facility] FOR RECORDS PERTAINING TO PATIENTS WHO ARE [...] BE BASED ON THE PRIMARY CLINICAL RECORDS. [facility] [employer] [facility]. provides no warranty or guarantee of the accuracy or completeness of information in this document.
--- NOTE | 2025-02-16 20:10 | ED.VIS.BACK ---
HPI History of Present Illness Chief Complaint: Back Informant: patient Narrative Narrative: Patient is a 62-year-old male with history of coronary artery disease, tobacco use (states he quit 4 days ago), hypertension, hyperlipidemia and chronic pain (follows with Dr. Murillo) presenting with worsening right hip pain. States he saw orthopedic surgery and was diagnosed told he has kgwj-ti-yasf and needs hip surgery. He is waiting to get medically cleared for surgery. Denies any new trauma or injury. States over the past few days has had worsening hip pain in his groin as well as his lateral right hip and he now cannot sleep. Denies any acute numbness or tingling down his leg. Denies any weakness. Denies any acute back pain but does have chronic back pain. Denies any bowel or bladder incontinence. States he prior had a prescription for [place] however when he went to [place] last month he told his son to get rid of it so he does not have it anymore. He does not appointment to see pain management this coming Wednesday. No other complaints or concerns at this time. [facility] Medical History Carotid arterial disease Hypertension Neuropathy Vertigo Coronary atherosclerosis of bypass graft Home Medications ?Medication ?Instructions ?Recorded ?Last Taken ?Type aspirin 81 mg tablet,delayed 81 mg PO DAILY 01/19/24 01/19/24 History release vtpkzoejempmjei-hetogwpbhvlmbki-LM 5 ml PO 4X/DAY PRN PRN cough 01/19/24 Unknown History 2 mg-30 mg-10 mg/5 mL oral syrup gabapentin 800 mg tablet 800 mg PO TID 01/19/24 01/19/24 History hydrocodone 7.5 mg-acetaminophen 1 tab PO TID PRN PRN pain 01/19/24 01/19/24 History 325 mg tablet atorvastatin 40 mg tablet 40 mg PO QHS #30 tabs 01/20/24 Unknown Rx gabapentin 800 mg tablet 800 mg PO TID 20 days #60 tabs 01/28/25 Unknown Rx gabapentin 800 mg tablet 800 mg PO TID 20 days #60 tabs 01/28/25 Unknown Rx nifedipine 30 mg tablet,extended 30 mg PO DAILY 30 days #30 tabs 01/28/25 Unknown Rx release nifedipine 30 mg tablet,extended 30 mg PO DAILY 30 days #30 tabs 01/28/25 Unknown Rx release Allergy/AdvReac Type Severity Reaction Status Date / Time lisinopril Allergy Angioedema Verified 02/16/25 17:18 Social History Smoking Status: Former smoker ROS ROS ED Constitutional Constitutional ED: Denies chills or fever(s) Gastrointestinal Gastrointestinal: Denies abdominal pain, nausea or vomiting Musculoskeletal Musculoskeletal: Reports back pain and other Details: Right hip pain Integumentary Denies rash Neurologic Neurologic: Denies paresthesias or weakness Psychiatric Psychiatric: Denies anxiety Hematologic/Lymphatic Hematologic/Lymphatic: Denies easy bleeding or easy bruising EXAM Physical Exam Const Vital Signs: 02/16/25 17:14 Temperature 97.1 F L Temperature Source Temporal Pulse Rate 91 Respiratory Rate 14 Blood Pressure 147/126 H Blood Pressure Mean 133 Pulse Ox 97 Oxygen Delivery Method Room Air Positive well nourished and well developed General Appearance ED: well developed and NAD HEENT Reports moist mucous membranes Eyes PERRL Neck supple Resp normal respiratory effort and clear to auscultation bilaterally Cardio regular rate and regular rhythm Cardio Narrative: 2+ DP pulses present GI normal to inspection, nondistended, normoactive bowel sounds and soft to palpation Back/Spine normal to inspection Back/Spine Narrative: Mild right lumbar lower tenderness to palpation. No midline tenderness Extremity Extremity Narrative: Pain with palpation with range of motion of the right hip. No short arc range of motion pain. No edema of the legs or color changes. Compartments are soft. No palpable cords. Neuro oriented x3 and no sensory deficits noted Sensorium / Orientation: alert Motor Exam: strength 5/5 throughout Psych mental status grossly normal Skin no rashes or lesions noted and no wounds MDM MDM MDM Narrative Medical decision making narrative: Patient noted for acute on chronic right hip pain. Denies new trauma or injury. Vital signs stable. Low suspicion for acute vascular abnormality or septic joint based on physical exam. Patient is given IM Dilaudid. Discussed as he has an active prescription for [place] from pain management that I cannot prescribe him more pain medication even if he did get rid of it. He verbalized understand this. Will follow-up with pain management this coming week as well as orthopedic surgery. Is given return precautions. Is discharged home in stable condition. Does have a ride home. Discharge Plan Triage Chief Complaint: Back ED Provider: Tonie Wall Dx/Rx/DC Orders Clinical Impression: Hip pain, right, Chronic bilateral low back pain Instructions: ED Arthralgia, ED Chronic Pain Prescriptions: No Action gabapentin 800 mg tablet 800 mg PO TID hydrocodone-acetaminophen 7.5-325 mg tablet 1 tab PO TID PRN PRN (Reason: pain) aspirin 81 mg tablet,delayed release (DR/EC) 81 mg PO DAILY [id number]-mbxbbctyg-MD 2-30-10 mg/5 mL syrup 5 ml PO 4X/DAY PRN PRN (Reason: cough) atorvastatin 40 mg tablet 40 mg PO QHS Qty: 30 2RF nifedipine 30 mg tablet extended release 30 mg PO DAILY 30 Days Qty: 30 0RF gabapentin 800 mg tablet 800 mg PO TID 20 Days Qty: 60 0RF gabapentin 800 mg tablet 800 mg PO TID 20 Days Qty: 60 0RF nifedipine 30 mg tablet extended release 30 mg PO DAILY 30 Days Qty: 30 0RF Primary Care Provider: Stacey Goldsmith Referrals: Stacey Goldsmith, [Primary Care Provider, Family Practice] Activity Restrictions/Additional Instructions: Please follow-up with family medicine as well as pain management and orthopedics. You will need to follow-up with pain management for further pain prescriptions. In the meantime you may alternate ibuprofen and Tylenol and take your gabapentin. Print Language: Lithuanian Disposition Disposition: Home, Self Care
[2025-02-16 20:22] VITALS: BP 128/80; PULSE 91; RESP 14; TEMP 36.2; O2SAT 97
--- NOTE | 2025-02-16 20:23 | ED.RN ---
pt advised of shot time at 2022
== END 2025-02-16 20:26 | disposition home or self-care (01) ==
PROVIDERS: Emergency Provider Emergency Medicine; PCP Family Medicine; Visit Provider Emergency Medicine
DX: M25.551 Pain in right hip (principal); G89.29 Other chronic pain; I25.810 Atherosclerosis of coronary artery bypass graft(s) without angina pectoris; I10 Essential (primary) hypertension; E78.5 Hyperlipidemia, unspecified; M54.50 Low back pain, unspecified; Z79.82 Long term (current) use of aspirin; Z79.899 Other long term (current) drug therapy; Z87.891 Personal history of nicotine dependence
CPT/HCPCS: 96372; 99282

== ENCOUNTER 2025-02-25 17:10 | Emergency (ER) | payer MEDICARE, SELFPAY ==
[2025-02-25 17:11] VITALS: BP 156/105; PULSE 78; RESP 22; TEMP 36.4; O2SAT 98; BMI 29.5
--- NOTE | 2025-02-25 19:44 | CT_ITS ---
EXAM: CT Cervical Spine Without Intravenous Contrast CLINICAL INDICATION: INJURY/PAIN TECHNIQUE: Axial computed tomography images of the cervical spine without intravenous contrast. This CT exam was performed using one or more of the following dose reduction techniques: automated exposure control, adjustment of the mA and/or kV according to patient size, and/or use of iterative reconstruction technique. COMPARISON: No relevant prior studies available. FINDINGS: VERTEBRAE: Mild reversal of cervical spine lordosis. Degenerative facet arthropathy throughout the cervical spine. No acute fracture. DISCS/SPINAL CANAL/NEURAL FORAMINA: Degenerative disc disease throughout the cervical spine. SOFT TISSUES: Unremarkable. CT/Spine Cervical without Contras IMPRESSION: 1. No acute fracture. 2. If symptoms persist, further evaluation with MRI is recommended. 3. Degenerative changes of the cervical spine as described. Reading Location: [id number]
--- NOTE | 2025-02-25 19:48 | EX.ED.DYSGE1 ---
HPI History of Present Illness Chief Complaint: Other, Pain/Inj Informant: patient Onset/Context/Timing Onset: Days (3) Context: Gradual Onset Timing: Continuous Quality: Spasm Location: Right side of his neck Worsened by: Movement Relieved by: Rest Narrative Narrative: Patient presents with neck pain that has been getting worse over the past 3 days. Patient sees pain management for back pain. Patient states he has been taking his pain medications with minimal relief. Patient states his pain is worse over the right side of his neck. Patient states it feels like a spasm. Patient states it is worse with movement. Patient states it is better with rest. Patient denies any trauma or injury. Patient denies any paresthesias or weakness. [facility] Medical History (Updated 02/26/25 @ 00:[address] Florencio Ware DO) Carotid arterial disease Hypertension Neuropathy Vertigo Coronary atherosclerosis of bypass graft Home Medications ?Medication ?Instructions ?Recorded ?Last Taken ?Type aspirin 81 mg tablet,delayed 81 mg PO DAILY 01/19/24 01/19/24 History release hydrocodone 7.5 mg-acetaminophen 1 tab PO TID PRN PRN pain 01/19/24 01/19/24 History 325 mg tablet atorvastatin 40 mg tablet 40 mg PO QHS #30 tabs 01/20/24 Unknown Rx gabapentin 800 mg tablet 800 mg PO TID 20 days #60 tabs 01/28/25 Unknown Rx nifedipine 30 mg tablet,extended 30 mg PO DAILY 30 days #30 tabs 01/28/25 Unknown Rx release nifedipine 30 mg tablet,extended 30 mg PO DAILY 30 days #30 tabs 01/28/25 Unknown Rx release Allergy/AdvReac Type Severity Reaction Status Date / Time lisinopril Allergy Angioedema Verified 02/25/25 17:11 Surgical History (Updated 02/26/25 @ 00:[address] Florencio Ware DO) S/P ORIF (open reduction internal fixation) fracture Hx of shoulder surgery Social History Smoking Status: Former smoker ROS ROS ED Constitutional Constitutional ED: Denies chills or fever(s) Eyes Eyes: Reports blurry vision; Denies diplopia ENT ENT ED: Denies rhinorrhea or sore throat Cardiovascular Cardiovascular: Denies chest pain or palpitations Respiratory/Chest Respiratory/Chest: Reports cough; Denies dyspnea Gastrointestinal Gastrointestinal: Denies nausea or vomiting Genitourinary Genitourinary ED: Denies dysuria or hematuria Musculoskeletal Musculoskeletal: Reports back pain and neck pain Integumentary Denies abscess or rash Neurologic Neurologic: Reports headache(s); Denies weakness Allergic/Immunologic Allergic/Immunologic ED: Denies mouth swelling or urticaria EXAM Physical Exam Const Vital Signs: 02/25/25 17:11 Temperature 97.5 F L Temperature Source Temporal Pulse Rate 78 Respiratory Rate 22 H Blood Pressure 156/105 H Blood Pressure Mean 122 Pulse Ox 98 Oxygen Delivery Method Room Air Positive well nourished and well developed Constitutional Narrative: BMI is 29.6. General Appearance ED: well developed and NAD HEENT Reports moist mucous membranes Eyes PERRL and EOMs intact bilaterally Neck supple and no JVD Neck Narrative: There is tenderness over the cervical paraspinal muscles, worse on the right. There is mild midline tenderness. There is no bony crepitance or step-off. Range of motion is limited in all motions of the cervical spine secondary to pain. General: tenderness Resp normal respiratory effort and clear to auscultation bilaterally Cardio regular rate and regular rhythm GI non-tender and non-distended Palpation: soft Extremity normal to inspection Neuro oriented x3, CN's II-XII intact bilaterally and no sensory deficits noted Sensorium / Orientation: alert Motor Exam: strength 5/5 throughout Psych mental status grossly normal MDM MDM MDM Narrative Medical decision making narrative: Differential diagnosis includes degenerative disc disease, muscle strain, spondylolisthesis, spondylolysis, radiculopathy, and cord compression. CT scan of the cervical spine will be obtained to assess for spinal fracture, spondylolisthesis, and degenerative arthritis. Radiography Diagnostic Testing: Clinical Impression(s) from Imaging Studies Cervical Spine CT 02/25/25 19:44 IMPRESSION: 1. No acute fracture. 2. If symptoms persist, further evaluation with MRI is recommended. 3. Degenerative changes of the cervical spine as described. Reading Location: [facility] CT scan of the cervical spine was obtained. There are some degenerative changes noted. There is no acute fracture. Of there is no cord compression noted. This was interpreted by the radiologist and was also independently reviewed by myself. Treatment and Re-Evaluation :: Patient was given an injection of morphine here. Patient had minimal relief with this. Patient was advised of his findings. Patient was instructed to continue his medications as previously prescribed. Patient was instructed to follow-up with his pain management physician in 3 to 5 days. Patient was also instructed to follow-up with his primary care physician in 5 to 7 days. Discharge Plan Triage Chief Complaint: Other, Pain/Inj ED Provider: Florencio Ware Dx/Rx/DC Orders Clinical Impression: Neck pain, Degenerative arthritis of cervical spine Instructions: ED Neck Pain Prescriptions: No Action hydrocodone-acetaminophen 7.5-325 mg tablet 1 tab PO TID PRN PRN (Reason: pain) aspirin 81 mg tablet,delayed release (DR/EC) 81 mg PO DAILY atorvastatin 40 mg tablet 40 mg PO QHS Qty: 30 2RF nifedipine 30 mg tablet extended release 30 mg PO DAILY 30 Days Qty: 30 0RF gabapentin 800 mg tablet 800 mg PO TID 20 Days Qty: 60 0RF nifedipine 30 mg tablet extended release 30 mg PO DAILY 30 Days Qty: 30 0RF Primary Care Provider: Rachell Santos Referrals: Irene Murlilo MD [Med Staff - Active Staff, Pain Management] - 3-5 Days Rachell Santos MD [Primary Care Provider, Family Practice] - 3-5 Days Print Language: Khmer Disposition Disposition: Home, Self Care Discharge Date/Time: 02/25/25 21:09
== END 2025-02-25 21:09 | disposition home or self-care (01) ==
PROVIDERS: Emergency Provider Emergency Medicine; PCP Pediatrics; Visit Provider Emergency Medicine
DX: M50.30 Other cervical disc degeneration, unspecified cervical region (principal); I10 Essential (primary) hypertension; Z87.891 Personal history of nicotine dependence; I25.10 Atherosclerotic heart disease of native coronary artery without angina pectoris; Z79.82 Long term (current) use of aspirin; Z79.899 Other long term (current) drug therapy
CPT/HCPCS: 72125; 96372; 99282